=== PATIENT | female | born 1940 | race Caucasian/White ===

== ENCOUNTER 2022-11-19 09:55 | Outpatient (OUT) | payer MEDICARE, OTHER, SELFPAY ==
[2022-11-19 11:10] LABS: Alanine Aminotransferase 51 U/L (14-59); Alkaline Phosphatase 85 U/L (46-116); Aspartate Amino Transferase 32 U/L (15-37); Bilirubin Direct 0.2 mg/dL (0.0-0.2); Bilirubin Total 0.7 mg/dL (0.2-1.0); Free T4 1.12 ng/dL (0.76-1.46); Total Protein 7.3 g/dL (6.4-8.2)
[2022-11-19 11:11] LABS: Albumin Globulin Ratio 1.2; Free T3 2.64 pg/mL (2.18-3.98); Globulin 3.3 g/dL; Thyroid Stimulating Hormone 3.241 uIU/mL (0.358-3.740)
== END 2022-11-19 09:56 | disposition home or self-care (01) ==
LOC: LAB 09:55
PROVIDERS: PCP Internal Medicine; Visit Provider Internal Medicine
DX: E05.90 Thyrotoxicosis, unspecified without thyrotoxic crisis or storm (principal); E05.20 Thyrotoxicosis with toxic multinodular goiter without thyrotoxic crisis or storm
CPT/HCPCS: 36415; 80076; 84439; 84443; 84481

== ENCOUNTER 2023-02-14 09:50 | Outpatient (OUT) | payer MEDICARE, OTHER, SELFPAY ==
--- NOTE | 2023-02-14 10:18 | US_ITS ---
The [address] [address] Patient Name: SALINA MORENO MRN: [id number] date: 1940 Sex: F Assigned Patient Location: US Current Patient Location: Accession/Order Number: [id number] Exam Date: 02/14/2023 10:30 Report Date: 02/16/2023 11:04 At the request of: RUDY DIAZ Procedure: US venous doppler LE RT EXAMINATION: US venous doppler LE RT HISTORY: LOCALIZED EDEMA R80.0 COMPARISON: No relevant comparison available. FINDINGS: REGION: Right lower extremity THROMBI: None. COMPRESSIBILITY: Normal compressibility. FLOW: Normal waveform and antegrade flow between 5 and 20 cm/s. OTHER: Subcutaneous edema. US/US venous doppler LE RT IMPRESSION: 1. No deep vein thrombus within the right lower extremity. Electronically authenticated by: JOEL ANDINO Date: 02/16/2023 11:04
== END 2023-02-14 09:51 | disposition home or self-care (01) ==
LOC: US 09:51
PROVIDERS: PCP Internal Medicine; Visit Provider Internal Medicine
DX: S80.11XA Contusion of right lower leg, initial encounter (principal); Z79.01 Long term (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; R60.0 Localized edema
CPT/HCPCS: 93971

== ENCOUNTER 2023-05-27 11:00 | Outpatient (OUT) | payer MEDICARE, OTHER, SELFPAY ==
[2023-05-27 14:17] LABS: Free T3 2.67 pg/mL (2.18-3.98); Thyroid Stimulating Hormone 4.171 uIU/mL (0.358-3.740)
[2023-05-27 14:26] LABS: Free T4 1.16 ng/dL (0.76-1.46)
== END 2023-05-27 11:01 | disposition home or self-care (01) ==
LOC: LAB 11:03
PROVIDERS: PCP Internal Medicine; Visit Provider Internal Medicine
DX: E05.90 Thyrotoxicosis, unspecified without thyrotoxic crisis or storm (principal); E05.20 Thyrotoxicosis with toxic multinodular goiter without thyrotoxic crisis or storm
CPT/HCPCS: 36415; 84439; 84443; 84481

== ENCOUNTER 2023-07-08 10:54 | Outpatient (OUT) | payer MEDICARE, OTHER, SELFPAY ==
--- OUTSIDE RECORDS SUMMARY | 2023-07-08 11:03 | XMS_ITS | CCD ---
Author Organization [facility] Care Team Providers Care Automobile Dealer Name Role Phone KEANU ISLAS Admitting Unavailable KEANU ISLAS Attending Unavailable OLE YANG Referring Unavailable OLE YANG Primary Care Unavailable KEANU ISLAS Admitting Unavailable KEANU ISLAS Attending Unavailable OLE YANG Primary Care Unavailable OLE YANG Referring Unavailable KEANU ISLAS Admitting Unavailable KEANU ISLAS Attending Unavailable OLE YANG Primary Care Unavailable OLE YANG Referring Unavailable MICHELLE, AHMAD Consulting Unavailable EMILY, DR GRANT Primary Care Unavailable MICHELLE, RUSLAND Attending Unavailable MICHELLE, AHMAD Admitting Unavailable CHERY, SHELDON Consulting Unavailable OBI GOTTLIEBA Attending Unavailable OBI GOTTLIEBA Admitting Unavailable EMILY, DR GRANT Primary Care Unavailable STEPH, DR MAYRA Denson Admitting Unavailabl e REINECK, DR MAYRA Denson Consulting Unavailabl e EMILY, DR GRANT Primary Care Unavailable STEPH, DR MAYRA Denson Attending Unavailabl e SINA, DR JOEL Petersen Consulting Unavailable DESEAN, LARRY Consulting Unavailable DESEAN, LARRY Attending Unavailable DR OLE YANG Primary Care Unavailable DESEAN, LARRY Admitting Unavailable DESEAN, LARRY Admitting Unavailable DESEAN, LARRY Consulting Unavailable DESEAN, LARRY Attending Unavailable CHERY, SHELDON Primary Care Unavailable CHERY, SHELDON Consulting Unavailable OBI GOTTLIEBA Attending Unavailable OBI GOTTLIEBA Admitting Unavailable EMILY, DR GARNT Primary Care Unavailable MICHELLE, AHMAD Consulting Unavailable MICHELLE, AHMAD Attending Unavailable EMILY, DR GRANT Primary Care Unavailable MICHELLE, AHMAD Admitting Unavailable GABRIEL GREEN Admitting Unavailable EMILY, DR GRANT Primary Care Unavailable GABRIEL GREEN Attending Unavailable SINA, DR JOEL Petersen Consulting Unavailable GABRIEL GREEN Consulting Unavailable CHERY, SHELDON Consulting Unavailable CHERY, SHELDON Attending Unavailable CHERY, SHELDON Admitting Unavailable EMILY, DR GRANT Primary Care Unavailable HEMMIHAELA, DR BRAD Montesinos Admitting Unavailable EMILY, DR GRANT Primary Care Unavailable SINA, DR JOEL Petersen Consulting Unavailable HEMMER, DR BRAD Montesinos Attending Unavailable HEMMER, DR BRAD Montesinos Consulting Unavailable CHERY, SHELDON Attending Unavailable CEHRY, SHELDON Admitting Unavailable CHERY, SHELDON Consulting Unavailable EMILY, DR GRANT Primary Care Unavailable MICHELLE, AHMAD Attending Unavailable EMILY, DR GRANT Primary Care Unavailable MICHELLE, AHMAD Admitting Unavailable MICHELLE, AHMAD Consulting Unavailable CHERY, SHELDON Attending Unavailable CHERY, SHELDON Admitting Unavailable EMILY, DR GRANT Primary Care Unavailable SINA, DR JOEL Petersen Consulting Unavailable CHERY, SHELDON Consulting Unavailable KEANU ISLAS Admitting Unavailable KEANU ISLAS Attending Unavailable EMILY, DR GRANT Primary Care Unavailable SINA, DR JOEL Petersen Consulting Unavailable KEANU ISLAS Consulting Unavailable CHERY, SHELDON Consulting Unavailable CHERY, SHELDON Attending Unavailable CHERY, SHELDON Admitting Unavailable EMILY, DR GRANT Primary Care Unavailable KWAN LUI Attending Unavailable KEANU ISLAS Referring Unavailable KWAN LUI Attending Unavailable KEANU ISLAS Referring Unavailable KEANU ISLAS Referring Unavailable ELIEL NICHOLS Attending Unavailable OLE YANG Referring Unavailable OLE YANG Primary Care Unavailable Ole Yang MD Primary Care Provider OLE YANG Attending Unavailable OLE YANG Attending Unavailable BRAD ANDERSON Attending Unavailable OLE YANG Attending Unavailable Medications Current Medications Medication Drug Class(es) Dates Sig (Normalized) Sig (Original) apixaban 5 mg oral tablet (1 source) Factor Xa Inhibitor Start: 05-28-2022 ELIQUIS 5 mg tablet ascorbic acid 1000 mg oral tablet (1 source) Vitamin C take 1 tablet by mouth in the morning ascorbic acid, vitamin C, (vitamin C) 1000 mg tablet Take 1 tablet (1,000 mg total) by mouth in the morning. 0 Active aspirin 81 mg delayed release oral tablet (1 source) Platelet Aggregation Inhibitor, Nonsteroidal Anti-inflammatory Drug aspirin 81 mg daily. 0 Active atorvastatin 80 mg oral tablet (1 source) HMG-CoA Reductase Inhibitor Start: 08-03-2022 atorvastatin (LIPITOR) 80 mg tablet bumetanide 1 mg oral tablet (1 source) Loop Diuretic bumetanide (BUME X) 1 mg tablet as needed. 0 Active calcium carbonate 1500 mg / cholecalciferol 200 unt oral tablet (1 source) Vitamin D calcium carbonate-vitamin D3 600 mg(1,500mg) -200 units per tablet 1 (one) time each day at the same time. 0 Active cholecalciferol 0.01 mg oral capsule (1 source) Vitamin D cholecalciferol, vitamin D3, 10 mcg (400 unit) capsule 1 (one) time each day at the same time. 0 Active lisinopril 5 mg oral tablet (1 source) Angiotensin Converting Enzyme Inhibitor take 1 tablet by mouth in the morning lisinopriL (PRINIVIL,ZESTRIL) 5 mg tablet Take 1 tablet (5 mg total) by mouth in the morning. 0 Active LORazepam 0.5 mg oral tablet (1 source) Benzodiazepine Start: 08-21-2021 LORazepam (ATIVAN) 0.5 mg tablet lorazepam 0.5 mg tablet 0 08/21/2021 Active lovastatin 40 mg oral tablet (1 source) HMG-CoA Reductase Inhibitor lovastatin (MEVACOR) 40 mg tablet lovastatin 40 mg tablet 0 Active methIMAzole 10 mg oral tablet (1 source) Thyroid Hormone Synthesis Inhibitor take 0.5 tablet by mouth once daily methIMAzole (TAPAZOLE) 10 mg tablet Take 0.5 tablets every day by oral route. 0 Active 24 hr metoprolol succinate 50 mg extended release oral tablet (1 source) beta-Adrenergic Billy Start: 08-03-2022 metoprolol succinate XL (TOPROL XL) 50 mg 24 hr tablet multivitamin,tx-iron -Ca-FA-min 27-0.4 mg tablet (1 source) multivitamin,tx- iro n-Ca-FA-min 27-0.4 mg tablet 1 (one) time each day at the same time. 0 Active 10 actuat olodaterol 0.0025 mg/actuat / tiotropium 0.0025 mg/actuat inhalation spray (1 source) Anticholinergic, beta2-Adrenergic Agonist tiotropium-olodater oL 2.5-2.5 mcg/actuation mist Inhale 2 puffs every day by inhalation route. 0 Active PARoxetine hydrochloride 20 mg oral tablet (1 source) Serotonin Reuptake Inhibitor Start: 08-03-2022 PARoxetine (PAXIL) 20 mg tablet predniSONE 20 mg oral tablet (1 source) Start: 12-16-2022 take 1 tablet by mouth in the morning predniSONE (DELTASONE) 20 mg tablet TAKE 1 TABLET (20 MG) BY MOUTH IN THE MORNING AND 1 TABLET (20 MG) BEFORE BEDTIME. DO ALL THIS FOR 5 DAYS. 0 12/16/2022 Active spironolactone 25 mg oral tablet (1 source) Aldosterone Antagonist take 1 tablet by mouth in the morning spironolactone (ALDACTONE) 25 mg tablet Take 1 tablet (25 mg total) by mouth in the morning. 0 Active Problems Active Problems Problem Classification Problem Date Documented Da te Episodic/Chronic Blindness and vision defects (3 sources) Diplopia; Translations: [Diplopia] Onset: 03-20-2022 04-27-2023 Episodic Cardiac dysrhythmias (1 source) Unspecified atrial fibrillation; Translations: [UNSPECIFIED ATRIAL FIBRILLATION] Onset: 05-16-2022 Chronic Chronic obstructive pulmonary disease and bronchiectasis (1 source) Chronic obstructive pulmonary disease with (acute) exacerbation; Translations: [COPD WITH ACUTE EXACERBATION] Onset: 06-06-2021 Chronic Conduction disorders (3 sources) Presence of cardiac pacemaker; Translations: [Encounter for adjustment and management of automatic implantable cardiac defibrillator] Onset: 08-26-2021 Chronic Congestive heart failure; nonhypertensive (4 sources) Acute on chronic combined systolic (congestive) and diastolic (congestive) heart failure; Translations: [AC CHRN COMB SYSTOLIC AND DIASTOL CHF] Onset: 12-23-2021 Chronic Disorders of lipid metabolism (1 source) Hyperlipidemia, unspecified; Translations: [HYPERLIPIDEMIA UNSPECIFIED] Onset: 06-20-2021 Chronic Essential hypertension (5 sources) Essential (primary) hypertension; Translations: [ESSENTIAL PRIMARY HYPERTENSION] Onset: 06-20-2021 Chronic Heart valve disorders (1 source) Rheumatic disorders of both mitral and tricuspid valves; Translations: [RHEUMATIC D/O MITRAL TRICUSPID VALV] Onset: 06-14-2021 Chronic Menopausal disorders (4 sources) Other primary ovarian failure; Translations: [OTHER PRIMARY OVARIAN FAILURE] Onset: 03-19-2022 Chronic Other circulatory disease (1 source) Personal history of transient ischemic attack (TIA), and cerebral infarction without residual deficits; Translations: [PERS HX TIA AND CI NO RESID DEFICIT] Onset: 03-20-2022 Episodic Other connective tissue disease (1 source) Repeated falls; Translations: [REPEATED FALLS] Onset: 03-20-2022 Episodic Other eye disorders (1 source) Monocular esotropia, right eye; Translations: [Monocular esotropia, right eye] Onset: 04-27-2023 Episodic Other eye disorders (1 source) Esotropia of right eye; Translations: [Monocular esotropia, right eye] 04-27-2023 Episodic Other eye disorders (1 source) Abducens nerve palsy; Translations: [Sixth [abducent] nerve palsy, right eye] 04-28-2023 Episodic Thyroid disorders (5 sources) Thyrotoxicosis, unspecified without thyrotoxic crisis or storm; Translations: [THYROTOXICOS UNS NO THYROTOX CRISIS] Onset: 07-01-2021 Chronic Unclassified (1 source) CONTACT W/AND (SUSP) EXPOS COVID-19; Translations: [CONTACT W/AND (SUSP) EXPOS COVID-19] Onset: 08-23-2021 Past or Other Problems Problem Classification Problem Date Documented Date Episodic/Chronic Cardiac dysrhythmias (2 sources) Palpitations; Translations: [Palpitations] Onset: 03-20-2022 Episodic E Codes: Natural/environment (1 source) Overexertion from prolonged static or awkward postures, initial encounter; Translations: [OVEREXERT PROLNG STAT/AWK PST INIT] Onset: 06-18-2021 Episodic Other aftercare (1 source) [facility] (current) use of aspirin; Translations: [DIRECTOR OF ANALYTICS 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 ASPIRIN] Onset: 06-18-2021 Episodic Other aftercare (1 source) Other [place] (current) drug therapy; Translations: [OTH DIRECTOR OF ANALYTICS CURRENT DRUG THERAPY] Onset: 06-18-2021 Episodic Other connective tissue disease (4 sources) Pain in right leg; Translations: [PAIN IN RIGHT LEG] Onset: 09-04-2021 Episodic Other connective tissue disease (1 source) Pain in left leg; Translations: [PAIN IN LEFT LEG] Onset: 06-18-2021 Episodic Other lower respiratory disease (4 sources) Other forms of dyspnea; Translations: [OTHER FORMS OF DYSPNEA] Onset: 06-18-2021 Episodic Other lower respiratory disease (3 sources) Shortness of breath; Translations: [SHORTNESS OF BREATH] Onset: 06-04-2021 Episodic Residual codes; unclassified (4 sources) Other specified postprocedural states; Translations: [OTH SPECIFIED POSTPROCEDURAL STATES] Onset: 08-22-2021 Episodic Sprains and strains (1 source) Strain of unspecified muscles, fascia and tendons at thigh level, left thigh, initial encounter; Translations: [STRAIN UNS MUSC FASC LT THIGH INIT] Onset: 06-18-2021 Episodic Results Test Name Value Interpretation Reference Range Facility Office Visiton 12-30-2022 Follow-up visit [id number] Lluvia Moreno 1940 Date Provider Department Center 12/30/2022 KWAN RODRIGUEZ Family History Problem Relation Age of Onset Colon cancer Father Coronary artery disease Brother Hypertension Brother Kidney cancer Brother Family Status - Relation Status Age at Father Brother Level of Service:48634 OR OFFICE/OUTPATIENT ESTABLISHED MOD MDM 30-39 MIN Normal [facility] Office Visiton 07-15-2022 Follow-up visit [id number] Lluvia Moreno 1940 Provider Department Center 07/15/2022 KWAN RODRIGUEZ Family History Problem Relation Age of Onset Colon cancer Father Coronary artery disease Brother Hypertension Brother Kidney cancer Brother Family Status - Relation Status Age at Father Brother Level of Service:57961 OR OFFICE/OUTPATIENT ESTABLISHED MOD MDM 30-39 MIN Normal [facility] FREE T3on 05-14-2022 FREE T3 2.54 pg/mlL Normal 2.18-3.98 [facility] Comment on above: Performed By: #### F T3, TSH #### [facility] [address] [address] [address] Hugo Yang FREE T4on 05-14-2022 Free T4 [Mass/Vol] 1.09 ng/dL Normal 0.76-1.46 [facility] Comment on above: Performed By: #### F T4 #### [facility] [address] [place], [place] [address] Dr. Hugo Yang TSHon 05-14-2022 TSH 3.015 uIU/mL Normal 0.358-3.740 [facility] Comment on above: Performed By: #### F T3, TSH #### [facility] [address] [place], [place] [address] HEAD WO CONon 03-19-2022 CT HEAD WO CON EXAMINATION: CT HEAD WO CON HISTORY: Diplopia for 2 months COMPARISON: No relevant comparison available. TECHNIQUE: Axial CT images were obtained without IV contrast. Dose reduction techniques were achieved by using automated exposure control and/or adjustment of mA and/or kV according to patient size and/or use of iterative reconstruction technique. FINDINGS: BRAIN: No edema, hemorrhage, mass, acute infarction, or inappropriate atrophy. CSF SPACES: No hydrocephalus, subarachnoid hemorrhage, or mass. Appropriate for age. SKULL: No fracture, mass, or other significant visible lesion. SINUSES: No significant mucosal thickening or fluid on the limited views. ORBITS: No appreciable abnormality on the limited views. OTHER: Negative IMPRESSION: 1. No abnormal or suspicious findings to account for patient's symptoms. 2. Age consistent mild atrophy and chronic small vessel ischemic changes. Electronically authenticated by: JOEL ANDINO Date: 2022-03-19 10:33 Normal [facility] XR DEXA BONE DENSITYon 03-19 XR DEXA BONE DENSITY EXAMINATION: XR DEXA BONE DENSITY, 03/19/2022 9:57 AM EST HISTORY: Primary ovarian failure COMPARISON: DEXA bone densitometry 03/04/2019 TECHNIQUE: Dual-energy X-ray absorptiometry (DEXA) bone density study performed for the axial skeleton. FINDINGS: SPINE ANALYSIS: Average bone mineral density is 1.391 g/cm2. T-score (standard deviation relative to young adult mean): 1.8 . -4.1% change since prior study. HIP ANALYSIS: Lowest bone mineral density is within the right femoral neck, 0.619 g/cm2. T-score (standard deviation relative to young adult mean): -3.0 . -6.8% change since prior study. IMPRESSION: World [employer] Organization Classification: Osteoporosis - High Fracture Risk Electronically authenticated by: JOEL ANDINO Date: 2022-03-19 11:11 Normal [facility] ECHOCARDIO M/2D COMPLETEon 1 02-22-2021 ECHOCARDIO M/2D COMPLETE Patient: LLUVIA MORENO Exam Date: 12/23/2021 : 1940 Gender:F Ordering : SHELDON GOTTLIEB [facility] Admission #: [id number] Family : DR OLE YANG M.D. Order #: [id number] CLICK HERE TO VIEW EXAM ECHOCARDIOGRAM REPORT PROCEDURE: CARDIO PULMONARY ECHOCARDIO M/2D COMP INDICATIONS: Chronic combined heart failure, AICD, hypertension, COPD COMPARISON: None. DESCRIPTION: COMPLETE ECHOCARDIOGRAM Real-time transthoracic echocardiography with 2D, M-mode, spectral and color flow Doppler performed. QUALITY: Technical quality was good. LEFT VENTRICLE: Normal chamber size. Mild concentric left ventricular hypertrophy. The septum is abnormal in motion, likely due to pacing. LV EF: Mildly reduced left ventricular ejection fraction, (40-45%). DIASTOLIC: ATRIAL SEPTUM: Visually appears intact. LEFT ATRIUM: Severe dilatation. RIGHT ATRIUM: Severe dilatation. RIGHT VENTRICLE: Mild dilatation. Pacer wire present. Preserved systolic function. TRICUSPID VALVE: Normal mobility and thickness. No stenosis with trivial regurgitation and no evidence of pulmonary hypertension. RVSP 30 mmHg MITRAL VALVE: Normal mobility and thickness. No evidence of mitral valve stenosis. There is no mitral annular calcification. Mild mitral regurgitation. AORTIC VALVE: Normal trileaflet appearance. Mildly calcified aortic valve. Normal leaflet mobility. No evidence of aortic valve stenosis. No aortic regurgitation. AORTIC ROOT: Normal diameter and appearance. PULMONIC VALVE: Normal thickness and mobility. No stenosis. Trivial regurgitation. PERICARDIUM: No evidence of pericardial effusion. IVC: Collapses with inspirations. PLEURA: CONCLUSION: 1. Mild concentric left ventricular hypertrophy. Left ventricular systolic function is mildly reduced. LV ejection fraction is 40 to 45%. 2. Mildly dilated right ventricle with preserved systolic function. 3. Severe biatrial dilatation. 4. Mild mitral regurgitation. 5. Normal right-sided pressures. 6. No pericardial effusion. Adult Echocardiography Procedure Report Left Ventricle Left Atrium Mitral Valve Right Ventricle Aorta Aortic Valve Tricuspid Valve Pulmonic Valve Right Atrium Dictated by: Eyal Lucas M.D. on 12/24/2021 at 15:51 Approved by: Eyal Lucas M.D. on 12/24/2021 at 15:56 Normal [facility] FREE T3on 11-25-2021 FREE T3 1.97 pg/mlL Critically low 2.18-3.98 [facility] Comment on above: Performed By: #### F T3, TSH #### [facility] [address] [address] [address] Hugo Yang FREE T4on 11-25-2021 Free T4 [Mass/Vol] 1.00 ng/dL Normal 0.76-1.[address] [facility] Comment on above: Performed By: #### F T3, TSH #### [facility] [address] [address] [address] Hugo Yang LIVER PROFILEon 11-25-2021 Albumin [Mass/Vol] 3.9 g/dL Normal 3.4-5.0 [facility] Comment on above: Performed By: #### F T3, TSH #### [facility] [address] [address] [address] Hugo Yang Albumin/Globulin [Mass ratio] 1.1 {ratio} Normal [facility] Comment on above: Performed By: #### F T3, TSH #### [facility] [address] [address] [address] Hugo Yang ALP [Catalytic activity/Vol] 94 U/L Normal 46-116 [facility] Comment on above: Performed By: #### F T3, TSH #### [facility] [address] [address] [address] Hugo Yang ALT [Catalytic activity/Vol] 41 U/L Normal 14-59 [facility] Comment on above: Performed By: #### F T3, TSH #### [facility] [address] [address] [address] Hugo Yang AST [Catalytic activity/Vol] 25 U/L Normal 15-37 [facility] Comment on above: Performed By: #### F T3, TSH #### [facility] [address] [place] [address] Dr. Hugo Yagn BILI, CONJUGATED 0.2 mg/dL Normal 0.0-0.2 [facility] Comment on above: Performed By: #### F T3, TSH #### [facility] [address] [address] [address] Hugo Yang Bilirubin [Mass/Vol] 0.8 mg/dL Normal 0.2-1.0 [facility] Comment on above: Performed By: #### F T3, TSH #### [facility] [address] [address] [address] Hugo Yang Globulin (S) [Mass/Vol] 3.5 g/dL Normal [facility] Comment on above: Performed By: #### F T3, TSH #### [facility] [address] [place] [address] Dr. Hugo Yang Protein [Mass/Vol] 7.4 g/dL Normal 6.4-8.2 [facility] Comment on above: Performed By: #### F T3, TSH #### [facility] [address] [address] [address] Hugo Yang TSHon 11-25-2021 TSH 2.892 uIU/mL Normal 0.358-3.740 [facility] Comment on above: Performed By: #### F T3, TSH #### [facility] [address] [place] [address] Dr. Hugo Yang US PIPER DOP LEG RTon 09-05-19 22 US PIPER DOP LEG RT EXAMINATION: US PIPER DOP LEG RT HISTORY: Pain in right leg COMPARISON: No relevant comparison available. FINDINGS: REGION: Right lower extremity THROMBI: None. COMPRESSIBILITY: Normal compressibility. FLOW: Normal waveform and antegrade flow between 5 and 20 cm/s. OTHER: None. IMPRESSION: 1. No deep vein thrombus within the right lower extremity. Electronically authenticated by: JOEL ANDINO Date: 2021-09-04 12:18 Normal [facility] Cardiovascular Lab Reporton 08-21-2021 Cardiovascular Lab Report [facility] [id number] Physician: Keanu Islas MD Department of Service Date: 08/21/2021 Medicine Birthdate: 1940 Division of Room #: CC Cardiology Adult Cardiovascular Services [facility] [address] [place], [place] [address] Cardiovascular Laboratory Report [facility]UPGRADE PROCEDURE NOTE DATE OF PROCEDURE: 08/21/2021 PERFORMING PHYSICIAN: Dr. Keanu Islas CONSENT: Patient LOCATION: EP Lab PROCEDURE PERFORMED: 1. Implantation of Biventricular ICD ([employer]). 2. Explantation of previously implanted pacemaker generator ([employer]). 3. RV pacing lead and extraction. 4. Coronary sinus venogram. 5. ICD pocket revision. 6/ U/S access INDICATIONS: 1. Cardiomyopathy with no reversibe cause 2. Dilated cardiomyopathy 3. Chronic RV pacing (100%) 4. Chronic SHF NYHA Class III PROCEDURAL SEDATION: Versed and Fentanyl. Moderate sedation was administered by the sedation nurse under my supervision and noted in the CVL log. Intraprocedural face to face sedation time: 151min. Monitoring: Cardiac telemetry, Blood pressure, continuous pulse oxymetry. FLUROSCOPY: 19.6minutes/131 mGy. PREPARATION: 81-year-old lady with past medical history of atrial fibrillation, who was previously undergone single-chamber pacemaker with AV node ablation. Subsequent to that, she was noted to have a low EF, which was evaluated with coronary angiography and known to have vessel disease, but nothing amenable to PCI. Hence, it was deemed that her cardiomyopathy was probably from RV pacing. Given this, the decision was made to proceed with BiV ICD system upgrade. The patient was brought and the device was programed to VOO mode, as she was pacemaker dependent. Patient was brought to the EP lab in the post absorptive state. A procedural pause was performed identifying the patient, the precedure to be performed and the site of implant. The left chest was prepped and draped in the usual sterile fashion. Preoperative antibiotics IV was administered. PROCEDURAL DETAILS: Patient was placed in trendelenberg position and ultrasound was used to evaluate the patency of left axillary vein. Once it was determined that the vein was patient, I decided to proceed with opening of the pocket. Local infiltration of 1% Lidocaine was performed, and an incision was created in the left upper chest. Dissection was then performed using cautery down to the capsule of the previously implanted device. Two venous access was acquired and therafter sheath was placed. RV ICD lead was advanced into the RVOT and with manipulation, I got the lead to position in the lower mid septum. This was chosen and the sheath split and the lead secured in the pocket using three 1-0 Silk sutures. It is to be noted that with RV pacing, the QRS duration was noted to be close to 134 msec and was noted to be septally placed. Thereafter, the new ICD lead pacing configuration revealed a QRS of 127 msec. Next, we proceeded to place an LV lead. The Midway sheath was advanced, and with the wire, the CS os was accessed. However there was no support and so I used an amplatz wire for support. The inner cannula was then advanced into the CS body. The inner cannula was then removed and venogram was performed. Cordele catheter was advanced and venogram was performed. This revealed a good posterolateral vein, but other than that, an anterior vein was noted, but no significant other branches were seen. After this, a 0.014 wire was passed through the Cordele-Sarah catheter and traversed into the posterolateral vein. However, the wire was short enough and we could not get a good grasp at the end. So, thereafter, the Cordele-Sarah catheter was removed and 90-degree inner cannula was used to access the vein. A longer 0.014 wire tracked into the vein. Over this, a [employer] straight lead was advanced and placed into the mid to apical LV area. However, when thresholds were checked, there were no thresholds less than 5 noted on LV 1 and 2 poles. However, capture was noted at 3 V from 3 and 4. Given this, I decided to pull back the lead to see whether there were better thresholds in more basal area and it was noted again, had LV 3/4 captures were good but LV1/2. At this stage, given that we had at least some sort of decent threshold with 2 configurations, I decided to keep the lead. The inner cannulas were split and the Midway sheath was slit and the lead secured with three 1-0 silk sutures. Following this, the BiV pacing was performed, on which the QRS configuration was noted to be approximately 110 msec duration, which we felt was a good result. Subsequent to this, I decided to proceed with extraction of the previously placed lead. The RV lead was then dissected out and the sutures were removed and the sleeve was t (more content not included)... Normal [facility] Covid-19 PCR (CVDTBH)on SARS-CoV-2 (COVID-19) RNA SONA+probe Ql (Unsp spec) Not detected Normal NOT DETECTED [facility] Comment on above: Result Comment: When diagnostic testing is negative, the possibility of a false negative should be considered in the context of a patient's recent exposures and the presence of clinical signs and symptoms consistent with SARS-CoV-2. This test is not yet approved or cleared by the [place] FDA. When there are no FDA-approved or cleared tests available, and other criteria are met, FDA can make tests available under an emergency access mechanism called an Emergency Use Authorization (EUA). The EUA for this test is supported by the Geospatial Information Scientist of Health and Human Service's declaration that circumstances exist to justify the emergency use of in vitro diagnostics for the detection and/or diagnosis of the virus that causes COVID-19. This EUA will remain in effect for the duration of the COVID-19 declaration justifying emergency of IVDs, unless it is terminated or revoked by the FDA (after which the test may no longer be used). Performed By: #### B MP #### [facility] [address] [place] [address] Dr. Hugo Yang HEMOGRAM AND PLATELon 2021 Hematocrit (Bld) [Volume fraction] 43.7 % Normal 36.0-48.0 [facility] Comment on above: Performed By: #### C BC #### [facility] [address] [place] [address] Dr. Hugo Yang Hemoglobin (Bld) [Mass/Vol] 14.2 g/dL Normal 12.0-16.0 [facility] Comment on above: Performed By: #### C BC #### [facility] [address] [place] [address] Dr. Hugo Yang MCH (RBC) [Entitic mass] 31.0 pg Normal 26.7-34.0 [facility] Comment on above: Performed By: #### C BC #### [facility] [address] [place] [address] Dr. Hugo Yang MCHC (RBC) [Mass/Vol] 32.5 g/dL Normal 29.9-35.2 [facility] Comment on above: Performed By: #### C BC #### [facility] [address] [place] [address] Dr. Hugo Yang MCV (RBC) [Entitic vol] 95.4 fL Normal 81.0-99.0 [facility] Comment on above: Performed By: #### C BC #### [facility] [address] [place] [address] Dr. Hugo Yang PLT 161 103/ul Normal 150-450 [facility] Comment on above: Performed By: #### C BC #### [facility] [address] [place] [address] Dr. Hugo Yang RBC 4.58 106/ul Normal 4.20-5.40 [facility] Comment on above: Performed By: #### C BC #### [facility] [address] [place] [address] Dr. Hugo Yang WBC 6.9 103/ul Normal 4.0-11.0 [facility] Comment on above: Performed By: #### C BC #### [facility] [address] [place] [address] Dr. Hugo Yang PROF CHEM 8 (BAS METB)on Anion gap [Moles/Vol] 11.5 mmol/L Normal [facility] Comment on above: Performed By: #### B MP #### [facility] [address] [place] [address] Dr. Hugo Yang Calcium [Mass/Vol] 9.6 mg/dL Normal 8.5-10.1 [facility] Comment on above: Performed By: #### B MP #### [facility] [address] [place] [address] Dr. Hugo Yang Chloride [Moles/Vol] 104 mmol/L Normal 98-107 [facility] Comment on above: Performed By: #### B MP #### [facility] [address] [place] [address] Dr. Hugo Yang CO2 [Moles/Vol] 30.6 mmol/L Normal 21.0-32.0 [facility] Comment on above: Performed By: #### B MP #### [facility] [address] [address] [address] Hugo Yang Creatinine [Mass/Vol] 1.24 mg/dL Critically high 0.55-1.02 [facility] Comment on above: Performed By: #### B MP #### [facility] [address] [address] [address] Hugo Yang EGFR-AF BHUTANESE 51 mL/min/1.73m2 Critically low >=60 [facility] Comment on above: Performed By: #### B MP #### [facility] [address] [address] [address] Hugo Yang EGFR-NON AF BHUTANESE 42 mL/min/1.73m2 Critically low >=60 [facility] Comment on above: Performed By: #### B MP #### [facility] [address] [address] [address] Hugo Yang Glucose [Mass/Vol] 111 mg/dL Critically high 74-106 [facility] Comment on above: Performed By: #### B MP #### [facility] [address] [address] [address] Hugo Yang Potassium [Moles/Vol] 5.1 mmol/L Normal 3.5-5.1 [facility] Comment on above: Performed By: #### B MP #### [facility] [address] [address] [address] Hugo Yang Sodium [Moles/Vol] 141 mmol/L Normal 136-145 [facility] Comment on above: Performed By: #### B MP #### [facility] [address] [address] [address] Hugo Yang Urea nitrogen [Mass/Vol] 31.0 mg/dL Critically high 7.0-18.0 [facility] Comment on above: Performed By: #### B MP #### [facility] [address] [address] [address] Hugo Yang Urea nitrogen/Creatinin e [Mass ratio] 25.0 mg/mg Normal [facility] Comment on above: Performed By: #### B MP #### [facility] [address] [place] [address] Dr. Hugo Yang BNPon 07-30-2021 Natriuretic peptide B (Bld) [Mass/Vol] 1994.0 pg/mL Critically high <=1,800.0 [facility] Comment on above: Performed By: #### C BC #### [facility] [address] [place] [address] Dr. Hugo Yang PROF CHEM 8 (BAS METB)on Anion gap [Moles/Vol] 11.3 mmol/L Normal [facility] Comment on above: Performed By: #### C BC #### [facility] [address] [place] [address] Dr. Hugo Yang Calcium [Mass/Vol] 9.7 mg/dL Normal 8.5-10.1 [facility] Comment on above: Performed By: #### C BC #### [facility] [address] [place] [address] Dr. Hugo Yang Chloride [Moles/Vol] 104 mmol/L Normal 98-107 [facility] Comment on above: Performed By: #### C BC #### [facility] [address] [place] [address] Dr. Hugo Yang CO2 [Moles/Vol] 29.6 mmol/L Normal 21.0-32.0 [facility] Comment on above: Performed By: #### C BC #### [facility] [address] [place] [address] Dr. Hugo Yang Creatinine [Mass/Vol] 1.28 mg/dL Critically high 0.55-1.02 [facility] Comment on above: Performed By: #### C BC #### [facility] [address] [place] [address] Dr. Hugo Yang EGFR-AF BHUTANESE 49 mL/min/1.73m2 Critically low >=60 [facility] Comment on above: Performed By: #### C BC #### [facility] [address] [place] [address] Dr. Hugo Yang EGFR-NON AF BHUTANESE 40 mL/min/1.73m2 Critically low >=60 [facility] Comment on above: Performed By: #### C BC #### [facility] [address] [address] [address] Hugo Yang Glucose [Mass/Vol] 119 mg/dL Critically high 74-106 [facility] Comment on above: Performed By: #### C BC #### [facility] [address] [address] [address] Hugo Yang Potassium [Moles/Vol] 4.9 mmol/L Normal 3.5-5.1 [facility] Comment on above: Performed By: #### C BC #### [facility] [address] [address] [address] Hugo Yang Sodium [Moles/Vol] 140 mmol/L Normal 136-145 [facility] Comment on above: Performed By: #### C BC #### [facility] [address] [address] [address] Hugo Yang Urea nitrogen [Mass/Vol] 30.0 mg/dL Critically high 7.0-18.0 [facility] Comment on above: Performed By: #### C BC #### [facility] [address] [address] [address] Hugo Yang Urea nitrogen/Creatinin e [Mass ratio] 23.4 mg/mg Normal [facility] Comment on above: Performed By: #### C BC #### [facility] [address] [address] [address] Hugo Yang FREE T3on 06-28-2021 FREE T3 2.64 pg/mlL Normal 2.18-3.98 [facility] Comment on above: Performed By: #### F T3, TSH #### [facility] [address] [address] [address] Hugo Yang FREE T4on 06-28-2021 Free T4 [Mass/Vol] 1.19 ng/dL Normal 0.76-1.46 [facility] Comment on above: Performed By: #### B MP #### [facility] [address] [address] [address] Hugo Yang LIVER PROFILEon 06-28-2021 Albumin [Mass/Vol] 3.8 g/dL Normal 3.4-5.0 [facility] Comment on above: Performed By: #### F T3, TSH #### [facility] [address] [place] [address] Dr. Hugo Yang Albumin/Globulin [Mass ratio] 1.2 {ratio} Normal [facility] Comment on above: Performed By: #### F T3, TSH #### [facility] [address] [place] [address] Dr. Hugo Yang ALP [Catalytic activity/Vol] 88 U/L Normal 46-116 [facility] Comment on above: Performed By: #### F T3, TSH #### [facility] [address] [place] [address] Dr. Hugo Yang ALT [Catalytic activity/Vol] 54 U/L Normal 14-59 [facility] Comment on above: Performed By: #### F T3, TSH #### [facility] [address] [place] [address] Dr. Hugo Yang AST [Catalytic activity/Vol] 36 U/L Normal 15-37 [facility] Comment on above: Performed By: #### F T3, TSH #### [facility] [address] [place] [address] Dr. Hugo Yang BILI, CONJUGATED 0.3 mg/dL Critically high 0.0-0.2 [facility] Comment on above: Performed By: #### F T3, TSH #### [facility] [address] [place] [address] Dr. Hugo Yang Bilirubin [Mass/Vol] 0.9 mg/dL Normal 0.2-1.0 [facility] Comment on above: Performed By: #### F T3, TSH #### [facility] [address] [place] [address] Dr. Hugo Yang Globulin (S) [Mass/Vol] 3.3 g/dL Normal [facility] Comment on above: Performed By: #### F T3, TSH #### [facility] [address] [address] [address] Hugo Yang Protein [Mass/Vol] 7.1 g/dL Normal 6.4-8.[address] [facility] Comment on above: Performed By: #### F T3, TSH #### [facility] [address] [address] [address] Hugo Yang PROF CHEM 8 (BAS METB)on Anion gap [Moles/Vol] 13.6 mmol/L Normal [facility] Comment on above: Performed By: #### B MP #### [facility] [address] [address] [address] Hugo Yang Calcium [Mass/Vol] 9.5 mg/dL Normal 8.5-10.[address] [facility] Comment on above: Performed By: #### B MP #### [facility] [address] [address] [address] Hugo Yang Chloride [Moles/Vol] 105 mmol/L Normal 98-107 [facility] Comment on above: Performed By: #### B MP #### [facility] [address] [address] [address] Hugo Yang CO2 [Moles/Vol] 28.5 mmol/L Normal 21.0-32.0 [facility] Comment on above: Performed By: #### B MP #### [facility] [address] [address] [address] Hugo Yang Creatinine [Mass/Vol] 1.05 mg/dL Critically high 0.55-1.02 [facility] Comment on above: Performed By: #### B MP #### [facility] [address] [address] [address] Hugo Yang EGFR-AF BHUTANESE >60 Normal >=60 [facility] Comment on above: Performed By: #### B MP #### [facility] [address] [address] [address] Hugo Yang EGFR-NON AF BHUTANESE 51 mL/min/1.73m2 Critically low >=60 [facility] Comment on above: Performed By: #### B MP #### [facility] [address] [address] [address] Hugo Yang Glucose [Mass/Vol] 113 mg/dL Critically high 74-106 [facility] Comment on above: Performed By: #### B MP #### [facility] [address] [address] [address] Hugo Yang Potassium [Moles/Vol] 5.1 mmol/L Normal 3.5-5.1 [facility] Comment on above: Performed By: #### B MP #### [facility] [address] [address] [address] Hugo Yang Sodium [Moles/Vol] 142 mmol/L Normal 136-145 [facility] Comment on above: Performed By: #### B MP #### [facility] [address] [place] [address] Dr. Hugo Yang Urea nitrogen [Mass/Vol] 29.0 mg/dL Critically high 7.0-18.0 [facility] Comment on above: Performed By: #### B MP #### [facility] [address] [address] [address] Hugo Yang Urea nitrogen/Creatinin e [Mass ratio] 27.6 mg/mg Normal [facility] Comment on above: Performed By: #### B MP #### [facility] [address] [place] [address] Dr. Hugo Yang TSHon 06-28-2021 TSH 3.067 uIU/mL Normal 0.358-3.740 [facility] Comment on above: Performed By: #### F T3, TSH #### [facility] [address] [place] [address] Dr. Hugo Yang TSH RANGE SEE BELOW Normal [facility] Comment on above: Result Comment: <0.3 4 UIU/ml HYPERTHYROID 0.34-5.60 UIU/ml EUTHYROID >5.60 UIU/ml HYPOTHYROID Performed By: #### F T3, TSH #### [facility] [address] [place] [address] Dr. Hugo Yang Cardiovascular Lab Reporton 06-21-2021 Cardiovascular Lab Report [facility] Patient Name: [facility] MR #: [id number] Physician: Elizabeth Tejeda, Department of M.D. Medicine Service Date: 06/20/2021 Division of Birthdate: 1940 Cardiology Room #: [facility] Cardiovascular Services [facility] [address] [place], [place] [address] Cardiovascular Laboratory Report FINAL IMPRESSIONS: 1. 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 2. Otherwise nonobstructive coronary arteries angiographically. 3. Moderately reduced global left ventricular systolic function by noninvasive imaging. 4. Normal right-sided heart pressures and wedge pressure. 5. Kban-wi-gjcqvklp systemic hypertension. 6. Mildly reduced cardiac output/cardiac index. 7. 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 RECOMMENDATIONS: 1. Consider nonischemic etiologies for the patient's cardiomyopathy and heart failure with reduced ejection fraction namely rate/rhythm related causes. 2. Aggressive cardiovascular risk factor modification. 3. Optimal medical therapy for coronary artery disease should include aspirin, high-intensity statin therapy, a beta-billy, and an angiotensin converting enzyme inhibitor/receptor billy. 4. For heart failure with reduced ejection fraction (HFrEF), would recommend switching angiotensin-converting enzyme inhibitor to Entresto and adding spironolactone. In addition, an SGLT2 inhibitor such as Jardiance or Farxiga is recommended. 5. Consider further investigations for venous stenosis as clinically indicated. 6. Follow up with Dr. Islas and Larry Anton CNP in the next 2-4 weeks. 7. Follow up with Dr. Yang as scheduled. PROCEDURES: Ultrasound-guided access to the right common femoral vein, ultrasound-guided access of the right common femoral artery, limited femoral arterial angiography, limited femoral venous venography, right heart catheterization, bilateral selective coronary angiography, placement of a 6-Monegasque MynxGrip closure device. METHODS: After risks, benefits, and alternatives were explained, written informed consent was obtained. The patient was prepped and draped in the usual sterile fashion over both groins. Using 1% lidocaine solution, local infiltration anesthesia was achieved. Using a modified Seldinger technique and a micropuncture kit and on the ultrasound guidance access of the right common femoral vein and artery was obtained. A 6-Monegasque 11 cm sheath was placed in each. Femoral arterial angiography was performed via the inner cannula of the micropuncture kit prior to upsizing. Difficulty advancing the Orozco catheter was encountered; therefore, venography was performed via the venous sheath. This revealed an area of stenosis in the right common iliac vein. This was crossed using the J wire. Right heart catheterization was completed. The Orozco catheter was removed. Bilateral selective coronary angiography was performed using JL4 and JR4 catheters. After reviewing the images, it was elected to conclude the procedure. All catheters were removed. A 6-Monegasque MynxGrip closure device was deployed per protocol achieving optimal hemostasis over the arterial access site. The venous sheath was removed with application of manual pressure to achieve optimal hemostasis. Overall, the patient tolerated the procedure well. There were no overt complications. She was to be transferred to the holding area in stable condition. FINDINGS: Hemodynamics: 1. AO 144/89 (105). 2. RA 2. 3. RV 34.1, 0. 4. PA 34/10 (20). 5. PCWP 8. 6. Cardiac output 4.25/cardiac index 2.16. 7. AO sat 97%/PA sat 63%. LEFT VENTRICULOGRAPHY: This was not performed. Ejection fraction is 30% by noninvasive imaging. CORONARY ARTERIES: Left main coronary artery. This arises from the left coronary cusp. It bifurcates into the left anterior descending and left circumflex coronary arteries. It is free of significant stenosis. Left anterior descending coronary artery. This shows a long stented segment in the midportion of the vessel with 30% in-stent restenosis. There is caliber reduction in the mid to distal portion of the vessel. Left circumflex coronary artery. This is angiographically nonobstructive. Right coronary artery. This is a dominant vessel giving rise to the posterior descending and posterolateral branches. It is angiographically nonobstructive. Limited femoral angiography. This shows mild plaque and anatomy suitable for closure device. Venography; this showed stenosis in the right common iliac vein estimated at 30-40%. No evidence of thrombosis, masses, or dye extravasation was seen. INDICATION: New onset heart failure with reduced ejection fraction, shortness of breath. Electronically Signed by: Elizabeth Tejeda M.D. 06/27/2021 09:19 A E (more content not included)... Normal [facility] BNPon 06-18-2021 Natriuretic peptide B (Bld) [Mass/Vol] 3442.0 pg/mL Critically high <=1,800.0 [facility] Comment on above: Result Comment: TEST REPEATED CRITICAL VALUE VERIFIED Performed By: #### L IPID, BNP, CMP #### [facility] [address] [place] [address] Dr. Hugo Yang CBC AUTO DIFFon 06-18-2021 BASO # 0.1 103/ul Normal 0.0-0.1 [facility] Comment on above: Performed By: #### C BC #### [facility] [address] [place] [address] Dr. Hugo Yang Basophils/100 WBC (Bld) 0.5 % Normal 0.2-2.0 [facility] Comment on above: Performed By: #### C BC #### [facility] [address] [place] [address] Dr. Hugo Yang EO # 0.3 103/ul Normal 0.0-0.7 [facility] Comment on above: Performed By: #### C BC #### [facility] [address] [place] [address] Dr. Hugo Yang Eosinophils/100 WBC (Bld) 2.3 % Normal 0.9-7.0 [facility] Comment on above: Performed By: #### C BC #### [facility] [address] [place] [address] Dr. Hugo Yang Erythrocyte distribution width (RBC) [Ratio] 14.5 % Normal 11.0-15.0 [facility] Comment on above: Performed By: #### C BC #### [facility] [address] [place] [address] Dr. Hugo Yang Hematocrit (Bld) [Volume fraction] 42.3 % Normal 36.0-48.0 [facility] Comment on above: Performed By: #### C BC #### [facility] [address] [address] [address] Hugo Yang Hemoglobin (Bld) [Mass/Vol] 13.5 g/dL Normal 12.0-16.0 [facility] Comment on above: Performed By: #### C BC #### [facility] [address] [place] [address] Dr. Hugo Yang IG # 0.05 10e3/ul Critically high 0.00-0.03 [facility] Comment on above: Performed By: #### C BC #### [facility] [address] [place] [address] Dr. Hugo Yang IG % 0.4 % Normal 0.0-0.5 [facility] Comment on above: Performed By: #### C BC #### [facility] [address] [place] [address] Dr. Hugo Yang LYMPH # 1.5 103/ul Normal 1.2-3.8 [facility] Comment on above: Performed By: #### C BC #### [facility] [address] [place] [address] Dr. Hugo Yang Lymphocytes/100 WBC (Bld) 12.9 % Critically low 20.5-60.0 [facility] Comment on above: Performed By: #### C BC #### [facility] [address] [place] [address] Dr. Hugo Yang MANUAL DIFF REQ NO Normal [facility] Comment on above: Performed By: #### C BC #### [facility] [address] [place] [address] Dr. Hugo Yang MCH (RBC) [Entitic mass] 30.4 pg Normal 26.7-34.0 [facility] Comment on above: Performed By: #### C BC #### [facility] [address] [place] [address] Dr. Hugo Yang MCHC (RBC) [Mass/Vol] 31.9 g/dL Normal 29.9-35.2 [facility] Comment on above: Performed By: #### C BC #### [facility] [address] [address] [address] Hugo Yang MCV (RBC) [Entitic vol] 95.3 fL Normal 81.0-99.0 [facility] Comment on above: Performed By: #### C BC #### [facility] [address] [address] [address] Hugo Yang MONO # 0.7 103/ul Normal 0.3-0.8 [facility] Comment on above: Performed By: #### C BC #### [facility] [address] [address] [address] Hugo Yang Monocytes/100 WBC (Bld) 6.2 % Normal 1.7-12.0 [facility] Comment on above: Performed By: #### C BC #### [facility] [address] [place] [address] Dr. Hugo Yang NEUT # 8.8 103/ul Critically high 1.4-6.5 [facility] Comment on above: Performed By: #### C BC #### [facility] [address] [place] [address] Dr. Hugo Yang Neutrophils/100 WBC (Bld) 77.7 % Critically high 43.0-75.0 [facility] Comment on above: Performed By: #### C BC #### [facility] [address] [place] [address] Dr. Hugo Yang Platelet mean volume (Bld) [Entitic vol] 10.4 fL Normal 9.5-13.5 [facility] Comment on above: Performed By: #### C BC #### [facility] [address] [place] [address] Dr. Hugo Yang PLT 199 103/ul Normal 150-450 [facility] Comment on above: Performed By: #### C BC #### [facility] [address] [place] [address] Dr. Hugo Yang RBC 4.44 106/ul Normal 4.20-5.40 [facility] Comment on above: Performed By: #### C BC #### [facility] [address] [place] [address] Dr. Hugo Yang WBC 11.3 103/ul Critically high 4.0-11.0 [facility] Comment on above: Performed By: #### C BC #### [facility] [address] [place] [address] Dr. Hugo Yang Cov[facility]-19 [facility]on SARS-CoV-2 (COVID-19) RNA SONA+probe Ql (Unsp spec) Not detected Normal NOT DETECTED [facility] Comment on above: Result Comment: This test is not yet approved or cleared by the [place] FDA. When there are no FDA-approved or cleared tests available, and other criteria are met, FDA can make tests available under an emergency access mechanism called an Emergency Use Authorization (EUA). The EUA for this test is supported by the [place] of Health and Human Service's (HHS's) declaration that circumstances exist to justify the emergency use of in vitro diagnostics for the detection and/or diagnosis of the virus that causes COVID-19. This EUA will remain in effect (meaning this test can be used) for the duration of the COVID-19 declaration justifying emergency of IVDs, unless it is terminated or revoked by FDA (after which the test may no longer be used). When diagnostic testing is negative, the possibility of a false negative should be considered in the context of a patient's recent exposures and the presence of clinical signs and symptoms consistent with SARS-CoV-2. Performed By: #### F T3, TSH #### [facility] [address] [place] [address] Dr. Hugo Yang LIPID PROFILEon 06-18-2021 CHOL-HDL RATIO NORM SEE BELOW Normal [facility] Comment on above: Result Comment: 3.3 - 4.4 LOW RISK 4.4 - 7.1 AVERAGE RISK 7.1 - 11.0 MODERATE RISK >11.0 HIGH RISK Performed By: #### L IPID, BNP, CMP #### [facility] [address] [place] [address] Dr. Hugo Yang Cholesterol [Mass/Vol] 127 mg/dL Normal <=200 [facility] Comment on above: Performed By: #### L IPID, BNP, CMP #### [facility] [address] [place] [address] [address] Hugo Yang Cholesterol in HDL [Mass/Vol] 60 mg/dL Normal 40-60 [facility] Comment on above: Performed By: #### L IPID, BNP, CMP #### [facility] [address] [place] [address] [address] Hugo Yang Cholesterol in LDL [Mass/Vol] 47.4 mg/dL Normal [facility] Comment on above: Performed By: #### L IPID, BNP, CMP #### [facility] [address] [place] [address] [address] Hugo Yang Cholesterol.total/ Cholesterol in HDL [Mass ratio] 2.1 {ratio} Normal [facility] Comment on above: Performed By: #### L IPID, BNP, CMP #### [facility] [address] [place] [address] Dr. Hugo Yang HDL NORMAL > or = 60 mg/dl - LO W CARDIOVASCULAR RISK <40 mg/dl - HIGH CARDIOVASCULAR RISK Normal [facility] Comment on above: Performed By: #### L IPID, BNP, CMP #### [facility] [address] [address] [address] Hugo Yang LDL CALC NORMAL SEE BELOW Normal [facility] Comment on above: Result Comment: <100 mg/dl OPTIMAL 100 - 129 mg/dl NEAR OR ABOVE OPTIMAL 130 - 159 mg/dl BORDERLINE HIGH 160 - 189 mg/dl HIGH >190 mg/dl VERY HIGH Performed By: #### L IPID, BNP, CMP #### [facility] [address] [place] [address] [address] Hugo Yang Triglyceride [Mass/Vol] 98 mg/dL Normal <=150 [facility] Comment on above: Performed By: #### L IPID, BNP, CMP #### [facility] [address] [place] [address] [address] Hugo Yang VLDL CALC 19.6 mg/dL Normal [facility] Comment on above: Performed By: #### L IPID, BNP, CMP #### [facility] [address] [place] [address] [address] Hugo Yang PROF 14(COMP METB)on 022 Albumin [Mass/Vol] 4.0 g/dL Normal 3.4-5.0 [facility] Comment on above: Performed By: #### L IPID, BNP, CMP #### [facility] [address] [place] [address] [address] Hugo Yang Albumin/Globulin [Mass ratio] 1.3 {ratio} Normal [facility] Comment on above: Performed By: #### L IPID, BNP, CMP #### [facility] [address] [place] [address] [address] Hugo Yang ALP [Catalytic activity/Vol] 82 U/L Normal 46-116 [facility] Comment on above: Performed By: #### L IPID, BNP, CMP #### [facility] [address] [place] [address] Dr. Hugo Yang ALT [Catalytic activity/Vol] 52 U/L Normal 14-59 [facility] Comment on above: Performed By: #### L IPID, BNP, CMP #### [facility] [address] [place] [address] [address] Hugo Yang Anion gap [Moles/Vol] 12.9 mmol/L Normal [facility] Comment on above: Performed By: #### L IPID, BNP, CMP #### [facility] [address] [address] [address] Hugo Yang AST [Catalytic activity/Vol] 40 U/L Critically high 15-37 [facility] Comment on above: Performed By: #### L IPID, BNP, CMP #### [facility] [address] [address] [address] Hugo Yang Bilirubin [Mass/Vol] 1.7 mg/dL Critically high 0.2-1.0 [facility] Comment on above: Performed By: #### L IPID, BNP, CMP #### [facility] [address] [address] [address] Hugo Yang Calcium [Mass/Vol] 9.2 mg/dL Normal 8.5-10.[address] [facility] Comment on above: Performed By: #### L IPID, BNP, CMP #### [facility] [address] [place] [address] Dr. Hugo Yang Chloride [Moles/Vol] 103 mmol/L Normal 98-107 [facility] Comment on above: Performed By: #### L IPID, BNP, CMP #### [facility] [address] [place] [address] Dr. Hugo Yang CO2 [Moles/Vol] 28.9 mmol/L Normal 21.0-32.0 [facility] Comment on above: Performed By: #### L IPID, BNP, CMP #### [facility] [address] [place] [address] Dr. Hugo Yang Creatinine [Mass/Vol] 1.12 mg/dL Critically high 0.55-1.02 [facility] Comment on above: Performed By: #### L IPID, BNP, CMP #### [facility] [address] [place] [address] Dr. Hugo Yang EGFR-AF BHUTANESE 57 mL/min/1.73m2 Critically low >=60 [facility] Comment on above: Performed By: #### L IPID, BNP, CMP #### [facility] [address] [place] [address] Dr. Hugo Yang EGFR-NON AF BHUTANESE 47 mL/min/1.73m2 Critically low >=60 [facility] Comment on above: Performed By: #### L IPID, BNP, CMP #### [facility] [address] [place] [address] Dr. Hugo Yang Globulin (S) [Mass/Vol] 3.1 g/dL Normal [facility] Comment on above: Performed By: #### L IPID, BNP, CMP #### [facility] [address] [place] [address] Dr. Hugo Yang Glucose [Mass/Vol] 128 mg/dL Critically high 74-106 [facility] Comment on above: Performed By: #### L IPID, BNP, CMP #### [facility] [address] [place] [address] Dr. Hugo Yang Potassium [Moles/Vol] 4.8 mmol/L Normal 3.5-5.1 [facility] Comment on above: Performed By: #### L IPID, BNP, CMP #### [facility] [address] [address] [address] Hugo Yang Protein [Mass/Vol] 7.1 g/dL Normal 6.1-8.[address] [facility] Comment on above: Performed By: #### L IPID, BNP, CMP #### [facility] [address] [address] [address] Hugo Yang Sodium [Moles/Vol] 140 mmol/L Normal 136-[address] [facility] Comment on above: Performed By: #### L IPID, BNP, CMP #### [facility] [address] [place] [address] Dr. Hugo Yang Urea nitrogen [Mass/Vol] 23.0 mg/dL Critically high 7.0-18.0 [facility] Comment on above: Performed By: #### L IPID, BNP, CMP #### [facility] [address] [address] [address] Hugo Yang Urea nitrogen/Creatinin e [Mass ratio] 20.5 mg/mg Normal [facility] Comment on above: Performed By: #### L IPID, BNP, CMP #### [facility] [address] [place] [address] Dr. Hugo Yang ECHOCARDIO M/2D COMPLETEon 0 06-12-2021 ECHOCARDIO M/2D COMPLETE Patient: LLUVIA MORENO Exam Date: 06/12/2021 : 1940 Gender:F Ordering : SHELDON GOTTLIEB Admission #: [id number] Family : DR OLE YANG M.D. Order #: [id number] CLICK HERE TO VIEW EXAM ECHOCARDIOGRAM REPORT PROCEDURE: CARDIO PULMONARY ECHOCARDIO M/2D COMP INDICATIONS: Dyspnea on exertion, pacemaker, hypertension, CHF, COPD COMPARISON: None. DESCRIPTION: COMPLETE ECHOCARDIOGRAM Real-time transthoracic echocardiography with 2D, M-mode, spectral and color flow Doppler performed. QUALITY: Technical quality was good. LEFT VENTRICLE: Normal chamber size. Proximal septal hypertrophy (sigmoid septum). Global hypokinesis. Mildly to severely reduced systolic function. LV EF: Moderately to severely reduced left ventricular ejection fraction, (30%). DIASTOLIC: Grade III diastolic dysfunction. ATRIAL SEPTUM: Visually appears intact. LEFT ATRIUM: Severe dilatation. RIGHT ATRIUM: Severe dilatation. RIGHT VENTRICLE: Normal chamber size. Systolic function appears normal. Pacer wire present. TRICUSPID VALVE: Normal mobility and thickness. No stenosis with mild regurgitation. No evidence of pulmonary hypertension. RVSP 27 mmHg MITRAL VALVE: Normal mobility and thickness. No evidence of mitral valve stenosis. There is no mitral annular calcification. Moderate mitral regurgitation. AORTIC VALVE: Normal trileaflet appearance. Mildly calcified aortic valve. Normal leaflet mobility. No evidence of aortic valve stenosis. Trivial aortic regurgitation. AORTIC ROOT: Normal diameter and appearance. Ascending aorta is normal in size. PULMONIC VALVE: Normal thickness and mobility. No stenosis. Trivial regurgitation. PERICARDIUM: No evidence of pericardial effusion. IVC: IVC is normal in size, with no collapse. PLEURA: CONCLUSION: 1. Left ventricular systolic function is moderately to severely reduced. LVEF is 30%. There is diffuse global hypokinesis with abnormal motion of the septum likely related to bundle branch block or pacing. 2. Normal right ventricular systolic function and size. 3. Grade 3 diastolic dysfunction. 4. Moderate mitral regurgitation. 5. Mild tricuspid regurgitation. 6. Severely dilated atria. 7. Normal right-sided pressures. Adult Echocardiography Procedure Report Left Ventricle LVEDD (3.7 - 5.6 cm): 4.89 cm LVESD (2.2 - 4.0 cm): 4.52 cm LVIVS thickness (0.6 - 1.2 cm): 1.43 cm LVPW thickness (0.5 - 1.0 cm): 1.07 cm e': 9.87 cm/s E - e': 9.80 LVOT Area (cm2): 3.14 cm2 LVOT Diameter 2.00 cm Left Ventricular Ejection Fraction: 30 % Left Atrium LA Volume Index (2D A2C): 58.70 ml/m2 Left Atrium Systolic Dimension: 4.40 cm Left Atrium Systolic Area(A2C): 31.00 cm2 Left Atrium Systolic Area(A4C): 31.00 cm2 Left Atrium Systolic Volume(A2C): 292614 mm3 Left Atrium Systolic Volume(A4C): 124723 mm3 Mitral Valve MV E to A Ratio: 3.50 Mitral Valve A-Wave Peak Velocity: 27.60 cm/s Mitral Valve E-Wave Peak Velocity: 97.20 cm/s Deceleration Time: 114 ms Right Ventricle Aorta AO Root Diam: 2.90 cm Aortic Valve AoV Area (Peak Vicente): 1.52 cm2 AoV Area (VTI): 1.70 cm2 Peak Velocity(Antegrade Flow): 132.00 cm/s Peak Gradient(Antegrade Flow): 7 mm[Hg] Mean Velocity(Antegrade Flow): 91.80 cm/s Mean Gradient(Antegrade Flow): 4 mm[Hg] Velocity Time Integral: 21.40 cm Tricuspid Valve Pulmonic Valve Peak Velocity: 73.30 cm/s Peak Gradient: 2 mm[Hg] Right Atrium Dictated by: Eyal Lucas M.D. on 06/12/2021 at 16:21 Approved by: Eyal Lucas M.D. on 06/12/2021 at 16:27 Normal [facility] CBC AUTO DIFFon 06-04-2021 BASO # 0.0 103/ul Normal 0.0-0.1 [facility] Comment on above: Performed By: #### C BC #### [facility] [address] [address] [address] Hugo Yang Basophils/100 WBC (Bld) 0.6 % Normal 0.2-2.0 [facility] Comment on above: Performed By: #### C BC #### [facility] [address] [address] [address] Hugo Yang EO # 0.2 103/ul Normal 0.0-0.7 [facility] Comment on above: Performed By: #### C BC #### [facility] [address] [address] [address] Hugo Yang Eosinophils/100 WBC (Bld) 3.0 % Normal 0.9-7.0 [facility] Comment on above: Performed By: #### C BC #### [facility] [address] [address] [address] Hugo Yang Erythrocyte distribution width (RBC) [Ratio] 13.7 % Normal 11.0-15.0 [facility] Comment on above: Performed By: #### C BC #### [facility] [address] [place] [address] Dr. Hugo Yang Hematocrit (Bld) [Volume fraction] 42.1 % Normal 36.0-48.0 [facility] Comment on above: Performed By: #### C BC #### [facility] [address] [place] [address] Dr. Hugo Yang Hemoglobin (Bld) [Mass/Vol] 13.3 g/dL Normal 12.0-16.0 [facility] Comment on above: Performed By: #### C BC #### [facility] [address] [place] [address] Dr. Hugo Yang IG # 0.02 10e3/ul Normal 0.00-0.03 [facility] Comment on above: Performed By: #### C BC #### [facility] [address] [place] [address] Dr. Hugo Yang IG % 0.3 % Normal 0.0-0.5 [facility] Comment on above: Performed By: #### C BC #### [facility] [address] [place] [address] Dr. Hugo Yang LYMPH # 1.9 103/ul Normal 1.2-3.8 [facility] Comment on above: Performed By: #### C BC #### [facility] [address] [place] [address] Dr. Hugo Yang Lymphocytes/100 WBC (Bld) 29.2 % Normal 20.5-60.0 [facility] Comment on above: Performed By: #### C BC #### [facility] [address] [place] [address] Dr. Hugo Yang MANUAL DIFF REQ NO Normal [facility] Comment on above: Performed By: #### C BC #### [facility] [address] [place] [address] Dr. Hugo Yang MCH (RBC) [Entitic mass] 30.4 pg Normal 26.7-34.0 [facility] Comment on above: Performed By: #### C BC #### [facility] [address] [address] [address] Hugo Yang MCHC (RBC) [Mass/Vol] 31.6 g/dL Normal 29.9-35.2 [facility] Comment on above: Performed By: #### C BC #### [facility] [address] [address] [address] Hugo Yang MCV (RBC) [Entitic vol] 96.3 fL Normal 81.0-99.0 [facility] Comment on above: Performed By: #### C BC #### [facility] [address] [address] [address] Hugo Yang MONO # 0.6 103/ul Normal 0.3-0.8 [facility] Comment on above: Performed By: #### C BC #### [facility] [address] [place] [address] Dr. Hugo Yang Monocytes/100 WBC (Bld) 8.5 % Normal 1.7-12.0 [facility] Comment on above: Performed By: #### C BC #### [facility] [address] [place] [address] Dr. Hugo Yang NEUT # 3.8 103/ul Normal 1.4-6.5 [facility] Comment on above: Performed By: #### C BC #### [facility] [address] [place] [address] Dr. Hugo Yang Neutrophils/100 WBC (Bld) 58.4 % Normal 43.0-75.0 [facility] Comment on above: Performed By: #### C BC #### [facility] [address] [place] [address] Dr. Hugo Yang Platelet mean volume (Bld) [Entitic vol] 10.9 fL Normal 9.5-13.5 [facility] Comment on above: Performed By: #### C BC #### [facility] [address] [place] [address] Dr. Hugo Yang PLT 163 103/ul Normal 150-450 [facility] Comment on above: Performed By: #### C BC #### [facility] [address] [address] [address] Hugo Yang RBC 4.37 106/ul Normal 4.20-5.40 [facility] Comment on above: Performed By: #### C BC #### [facility] [address] [place] [address] Dr. Hugo Yang WBC 6.6 103/ul Normal 4.0-11.0 [facility] Comment on above: Performed By: #### C BC #### [facility] [address] [place] [address] Dr. Hugo Yang PROF CHEM 8 (BAS METB)on Anion gap [Moles/Vol] 13.9 mmol/L Normal [facility] Comment on above: Performed By: #### F T3, TSH #### [facility] [address] [place] [address] Dr. Hugo Yang Calcium [Mass/Vol] 9.5 mg/dL Normal 8.5-10.1 [facility] Comment on above: Performed By: #### F T3, TSH #### [facility] [address] [place] [address] Dr. Hugo Yang Chloride [Moles/Vol] 105 mmol/L Normal 98-107 [facility] Comment on above: Performed By: #### F T3, TSH #### [facility] [address] [place] [address] Dr. Hugo Yang CO2 [Moles/Vol] 27.7 mmol/L Normal 22.0-30.0 [facility] Comment on above: Performed By: #### F T3, TSH #### [facility] [address] [place] [address] Dr. Hugo Yang Creatinine [Mass/Vol] 1.19 mg/dL Critically high 0.52-1.04 [facility] Comment on above: Performed By: #### F T3, TSH #### [facility] [address] [place] [address] Dr. Hugo Yang EGFR-AF BHUTANESE 53 mL/min/1.73m2 Critically low >=60 [facility] Comment on above: Performed By: #### F T3, TSH #### [facility] [address] [place] [address] [address] Hugo Yang EGFR-NON AF BHUTANESE 44 mL/min/1.73m2 Critically low >=60 [facility] Comment on above: Performed By: #### F T3, TSH #### [facility] [address] [address] [address] Hugo Yang Glucose [Mass/Vol] 112 mg/dL Critically high 74-106 [facility] Comment on above: Performed By: #### F T3, TSH #### [facility] [address] [address] [address] Hugo Yang Potassium [Moles/Vol] 4.6 mmol/L Normal 3.4-5.0 [facility] Comment on above: Performed By: #### F T3, TSH #### [facility] [address] [address] [address] Hugo Yang Sodium [Moles/Vol] 142 mmol/L Normal 137-145 [facility] Comment on above: Performed By: #### F T3, TSH #### [facility] [address] [address] [address] Hugo Yang Urea nitrogen [Mass/Vol] 28.0 mg/dL Critically high 7.0-18.0 [facility] Comment on above: Performed By: #### F T3, TSH #### [facility] [address] [address] [address] Hugo Yang Urea nitrogen/Creatinin e [Mass ratio] 23.5 mg/mg Normal [facility] Comment on above: Performed By: #### F T3, TSH #### [facility] [address] [address] [address] Hugo aYng TROPONIN, HIGH SENSITIVITYon 06-04-2021 HSTROP 27.1 pg/mL Normal 4.0-35.5 [facility] Comment on above: Result Comment: CUT- OFF POINTS HAVE BEEN ESTABLISHED BASED ON THE FOURTH UNIVERSAL DEFINITIONS OF MYOCARDIAL INFARCTION. THE UPPER REFERENCE LIMIT (URL) OF TROPONIN, DEFINED THE 99TH PERCENTILE OF cTnI DISTRIBUTION IN A REFERENCE POPULATION, HAS BEEN CONFIRMED THE DECISION THRESHOLD FOR AR DIAGNOSIS. Performed By: #### F T3, TSH #### [facility] [address] [place], [place] [address] Dr. Hugo Yang XR CHEST 1 Von 06-04-2021 XR CHEST 1 V EXAMINATION: XR CHES T 1 V HISTORY: SHORTNESS OF BREATH COMPARISON: XR chest 12/24/2020, 11/20/2020 FINDINGS: LUNGS: Elevated right hemidiaphragm with mild haziness and stranding within right lung base. Mild right lower lobe bronchiectasis. VASCULATURE: No increased pulmonary vasculature. PLEURA: No pneumothorax, effusion, or pleural thickening. CARDIAC: Suspect mild cardiomegaly. Stable cardiac pacer. MEDIASTINUM: No visible mass or adenopathy. BONES: No fracture or visible bone lesion. OTHER: Negative. IMPRESSION: 1. Elevated right hemidiaphragm with mild right basilar atelectasis versus infiltrates, stable to minimally increased compared to prior study. Electronically authenticated by: JOEL ANDINO Date: 2021-06-04 11:09 Normal [facility] Cardiovascular Lab Reporton 12-28-2020 Cardiovascular Lab Report [id number] Physician: Keanu Islas MD Department of Service Date: 12/28/2020 Medicine Birthdate: 1940 Division of Room #: [facility] [address] [place] [address] Cardiovascular Laboratory Report AV NODE ABLATION PROCEDURE REPORT DATE OF PROCEDURE: 12/28/2020 PERFORMING PHYSICIAN: Dr. Keanu Islas CONSENT: Patient NAME OF THE PROCEDURE: AV node ablation LOCATION: EP Lab INDICATIONS FOR PROCEDURE: 1. H/o of AFib with RVR PROCEDURAL SEDATION: Versed and Fentanyl. Moderate sedation was administered by the sedation nurse under my supervision and noted in the CVL log. Intraprocedural face to face sedation time:25 min. Monitoring: Cardiac telemetry, Blood pressure, continuous pulse oxymetry. FLUROSCOPY: 24s/ 2mGray PROCEDURE PERFORMED: 1. Comprehensive EP study. 2. Pre and post ablation device testing. 3. AV node ablation. 4. Ultrasound venous access. INDICATIONS: 80-year-old lady with a history of atrial fibrillation with rapid ventricular rate, who is undergoing a single-chamber pacemaker for planned AV node ablation. Given the fact that she has come for AV node ablation. The patient was noted to be in atrial fibrillation with controlled ventricular rate on the day of arrival. PROCEDURAL DETAILS: The patient was brought to the electrophysiology laboratory and continuous electrocardiographic monitoring was instituted. After a procedural pause identifying the patient, the procedure I decided to proceed following administration of antibiotics (Ancef). Following presentation to the lab, I checked her lead threshold and noted to be 1V. The device was programmed at VVI 40bpm. The right groin was prepped and draped. Under ultrasound guidance, an 8-Monegasque venous access was procured, and a short sheath was placed. Non-irrigated 8mmThermocool ablation catheter was advanced to the site of the His and the His and Coronary sinus was mapped using CARTO 3D mapping software. Thereafter, given the history of tachycardia, I decided to proceed with an AV node ablation. HV47 ms. Subsequent to this, the catheter was flexed and pulled back and then ablation was performed with power of 60W targeting a temperature of >50C. Few seconds into ablation, complete heart block with underlying ventricular pacing at 40bpm was noted. Insurance lesions were provided in the slow pathway area also. After a 15min wait, thresholds were checked again and noted to be the same and the device was programmed at VVIR mode at 80bpm with underlying complete heart block with junctional escape. Thresholds were noted RV 1.0V@0.5ms. Sheaths and catheters were removed, and hemostasis was achieved. Patient was returned to the room. POST PROCEDURE EXAM: Patient was hemodynamically stable. COMPLICATIONS: None. ESTIMATED BLOOD LOSS: 5cc IMPRESSION: 1. Successful AV Node ablation. 2. Device thresholds pre and post ablation. RECOMMENDATIONS: 1. No heavy lifting for 1 week. 2. Follow up in EP clinic in 1 month. 3. Continue anticoagulation. Keanu Islas MD Cardiac Electrophysiology. Electronically Signed by: Keanu Islas MD 01/02/2021 01:38 P Keanu Islas MD Date Dict: 12/28/2020/03:34 P/Keanu Islas MD Date Trans: 12/28/2020 04:43 P/mmo [id number] cc: Ole Yang M.D. 3 [facility] [address] [address] [facility] Cardiovascular Lab Reporton 11-19-2020 Cardiovascular Lab Report [facility] Patient Name: Jasmine [facility] MR #: [id number] Physician: Keanu Islas MD Department of Service Date: 11/19/2020 Medicine Birthdate: 1940 Division of Room #: CC Cardiology Adult Cardiovascular Services [facility] [address] [place] [address] Cardiovascular Laboratory Report PACEMAKER IMPLANT PROCEDURE NOTE DATE OF PROCEDURE: 11/19/20 PERFORMING PHYSICIAN: Dr. Keanu Islas CONSENT: Patient LOCATION: EP Lab PROCEDURE PERFORMED: 1. Implantation of pacemaker ([employer]) 2. Ultrasound guided venous access INDICATIONS: 1. Atrial fibrillation with RVR. 2. PPM prior to AVN ablation PROCEDURAL SEDATION: Versed and Fentanyl. Moderate sedation was administered by the sedation nurse under my supervision and noted in the CVL log. Intraprocedural face to face sedation time: 84min. Monitoring: Cardiac telemetry, Blood pressure, continuous pulse oxymetry. FLUOROSCOPY TIME: 6min 41sec / 19mGray PREPARATION: 80-year-old lady with a history of atrial fibrillation with RVR. She was symptomatic and known to be short of breath when she has this episode. Given that she has had an atrial fibrillation for quite some time and the probability of success rate of maintaining sinus rhythm with the ablation was considered less due to atrial remodelling, the decision was made to proceed with pacemaker and AV node ablation based on the patient's request. Hence, she is brought for a pacemaker placement. She was noted to be in atrial fibrillation with varying RR intervals on presentation to the EP lab. PROCEDURAL DETAILS: Patient was placed in trendelenberg position and ultrasound was used to evaluate the patency of left axillary vein and for venous access. Left axillary venous access was obtained using modified seldinger technique using a 5 Monegasque micro-puncture needle on one occasion and 0.35 wire was placed. Local infiltration of 1% Lidocaine was performed, and an incision was created in the left upper chest. Dissection was then performed using cautery down to the fascial plane above the muscle. A small pocket was created for the device. 8 Monegasque Safesheath was placed over the wire. Then a His sheath was advanced over a glide wire into the right ventricle. The wire and dilator was then removed. An active fixation [employer] pacing lead was then delivered through the His sheath to the right ventricle. I identified an area where pacing revealed a QRS of 120ms in unipolar configuration. After confirmation of lead position on orthogonal views (PATEL and FATUMA) to confirm septal position, the screw was activated. However when sheath was withdrawn, there was loss of capture noted with respiration. So I decided to reposition the lead but the thresholds were not satisfactory. I then decided to advance the lead further and mapping was performed where stable capture was noted below 1V. The lead was placed activated and after confirmation of good sensing parameters, injury pattern and pacing thresholds, 10V pacing was done and no diaphragmatic stimulation was noted. The sheath was split and short sheath removed. It was then secured in the pocket using three 1-0 Silk sutures. Pocket hemostasis was secured, and it was then copiously and vigorously irrigated with antibiotic solution. The lead was attached to the generator and then wrapped under the device and the device was tacked to underlying muscle and placed in the pocket. The pocket was closed in layers: subcutaneous layer using 2-0 Vicryl; subcuticular using 3-0 absorbable monofilament suture. Glue was applied and Tegaderm dressing was placed on top. Lead parameters were then rechecked through the device as noted below. The patient was returned to the short stay room for post procedural observation. No immediate procedural complications were noted. Device info: [employer] Accolade MRI EL SR IS1 Model# L310 Serial# [id number] RV lead: Model# [id number] [id number] (59cms) Serial# [id number] Sensin.3mV Threshold: 0.6V@0.4ms Impedance: 655 Ohms POST PROCEDURE EXAM: Patient was hemodynamically stable. COMPLICATIONS: None. ESTIMATED BLOOD LOSS: 5cc IMPRESSION: 1. Successful dual chamber pacemaker with excellent pacing and sensing parameters. RECOMMENDATIONS: 1. Occlusive dressing to be removed after 2 weeks. 2. Do not wet the incision for 7 days. 3. No lifting heavy weights using arm on the same side x 3weeks 4. Do not lift elbow above the shoulder on the same side for 4-6 weeks. 5. No driving for 1 month. 6. F/u in device clinic 1 week from discharge or sooner for any concerns. 7. Planned AV node ablation in 4 weeks. Keanu Islas MD Cardiac Electrophysiology Electronically Signed by: Keanu Islas MD 11/19/2020 08:12 P Keanu Islas MD Date Dict: 11/19/2020 (more content not included)... Normal [facility] Encounters Encounter Date Encounter Type Care Provider Facility Start: 05-27-2023 End: 05-27-2023 ambulatory BRAD ANDERSON Not Available Start: 04-27-2023 End: 04-27-2023 ambulatory [facility] Start: 04-27-2023 End: 04-27-2023 Office outpatient visit 15 minutes [facility] OD Work Phone: [facility] Comment on above: Esotropia of right e ye (Primary Dx); Right abducens nerve palsy; Double vision Start: 02-19-2023 End: 02-19-2023 ambulatory OLE YANG Not Available Start: 02-11-2023 End: 02-11-2023 ambulatory OLE YANG Not Available Start: 01-28-2023 End: 01-28-2023 ambulatory OLE YANG Not Available Start: 01-20-2023 End: 01-20-2023 ambulatory [facility] Start: 12-30-2022 End: 12-30-2022 ambulatory [facility] Start: 07-22-2022 End: 07-22-2022 ambulatory [facility] Start: 07-15-2022 End: 07-15-2022 ambulatory [facility] Start: 05-14-2022 End: 05-15-2022 ambulatory PRUDENCIO MARTINEZ Facility:[facility] Start: 03-20-2022 ambulatory KEANU ISLAS [facility] Start: 03-19-2022 End: 03-20-[address] BRAD ANDERSON Facility:[facility] Start: 12-23-2021 End: 12-24-2021 ambulatory SHELDON GOTTLIEB Facility:[facility] Start: 11-25-2021 End: 11-26-2021 ambulatory PRUDENCIO MARTINEZ Facility:[facility] Start: 09-04-2021 End: 09-05-2021 ambulatory SHELDON GOTTLIEB Facility:[facility] Start: 08-23-2021 Encounter for other preprocedural examination SHELDON CHERY [facility] Start: 08-23-2021 Encounter for preprocedural laboratory examination SHELDON CHERY [facility] Start: 08-22-2021 End: 08-23-2021 ambulatory KEANU ISLAS Facility:[facility] Start: 08-21-2021 End: 08-22-2021 ambulatory KEANU ISLAS Facility:[facility] Start: 08-20-2021 End: 08-21-2021 ambulatory SHELDON GOTTLIEB Facility:[facility] Start: 08-20-2021 End: 08-21-2021 Encounter for other preprocedural examination SHELDON GOTTLIEB Facility:[facility] Start: 07-30-2021 End: 07-31-2021 ambulatory SHELDON GOTTLIEB Facility:[facility] Start: 06-28-2021 End: 06-29-2021 ambulatory LARRY ANTON Facility:[facility] Start: 06-20-2021 Encounter for other specified special examinations SHELDON GOTTLIEB [facility] Start: 06-18-2021 End: 06-19-2021 ambulatory SHELDON GOTTLIEB Facility:[facility] Start: 06-18-2021 End: 06-19-2021 Encounter for other specified special examinations LARRY ANTON Facility:[facility] Start: 06-17-2021 End: 06-17-[address] MAYRA CHOI Facility:[facility] Start: 06-12-2021 End: 06-13-2021 ambulatory SHELDON GOTTLIEB Facility:[facility] Start: 06-04-2021 End: 06-04-2021 ambulatory GABRIEL GREEN Facility:[facility] Start: 12-28-2020 End: 12-29-2020 ambulatory KEANU ISLAS Facility:[facility] Start: 11-19-2020 End: 11-20-2020 ambulatory KEANU ISLAS Facility:[facility] Procedures Date Procedure Procedure Detail Performing Clinician Start: 04-27-2023 Follow-up visit Follow-up ELIEL NICHOLS Plan of Treatment Date Care Activity Detail Author Start: 04-26-2024 Tobacco Screening Tobacco Screening Subtextual Start: 12-04-2023 Adult BMI Screening Adult BMI Screen ing Subtextual Start: 08-17-2007 Fall Risk Screening Fall Risk Screen ing Subtextual Start: 1961 DTaP,Tdap and Td Vaccines (1 - Tdap) DTaP,Tdap and Td Vaccines (1 - Tdap) Subtextual Start: 1960 Adult BMI Follow Up Plan Adult BMI Follow Up Plan Subtextual Start: 1954 Depression Screening Depression Scre ening Subtextual Start: 1940 Medicare Annual Wellness Visit Medicare [facility] Payers Date Payer Category Payer Unknown COMMERCIAL [employer]ME RCIAL - GENERIC PLAN [id number] 2022-Present [phone] [address] [address] [place] [address] [id number] 2004 Medicare MEDICARE MEDICAR E PART A & B [id number] 2004-Present [phone] [address] [place] [address] [id number] 1959 Medicare [id number] 1959 Unknown [id number] 1940 Unknown [id number] 2.16.840.1.058286.3.579.2.647 1940 Unknown [id number] 2.16.840.1.503461.3.579.2.647 1940 Unknown [id number] 2.16.840.1.545508.3.579.2.647 1942 Unknown [id number] 2.16.840.1.690061.3.579.2.593 1942 Unknown [id number] 2.16.840.1.240442.3.579.2.593 1942 Unknown [id number] 2.16.840.1.522570.3.579.2.593 1942 Unknown [id number] 2.16.840.1.705276.3.579.2.593 1942 Unknown [id number] 2.16.840.1.646318.3.579.2.593 1942 Unknown [id number] 2.16.840.1.076436.3.579.2.593 1942 Unknown [id number] 2.16.840.1.619725.3.579.2.593 1942 Unknown [id number] 2.16.840.1.409809.3.579.2.593 1942 Unknown [id number] 2.16.840.1.037487.3.579.2.593 1942 Unknown [id number] 2.16.840.1.988902.3.579.2.593 1942 Unknown [id number] 2.16.840.1.117473.3.579.2.593 1942 Unknown [id number] 2.16.840.1.929978.3.579.2.593 1942 Unknown [id number] 2.16.840.1.793401.3.579.2.593 1942 Unknown [id number] 2.16.840.1.526438.3.579.2.593 1942 Unknown [id number] 2.16.840.1.370792.3.579.2.593 1942 Unknown [id number] 2.16.840.1.429976.3.579.2.1286 1942 Unknown [id number] 2.16.840.1.304670.3.579.2.1259 1942 Unknown [id number] 2.16.840.1.375106.3.579.2.1259 1942 Unknown [id number] 2.16.840.1.585198.3.579.2.1259 1942 Unknown [id number] 2.16.840.1.299177.3.579.2.1259 Social History Date Type Detail Facility Start: 08-13-2022 Tobacco smoking stat [facility] Never smoked tobacco [facility] Start: 08-13-2022 Tobacco use and exposure Smokeless tobacco non-user [facility] Start: 04-28-2023 History of Social function [facility] Start: 04-28-2023 Tobacco use panel [facility] Start: 1940 Sex Assigned At Not on file P [facility] History of Present illness Narrative 04-27-2023 Eliel Astorga, OD - 04/27/2023 11:00 AM EDT Note Date & Type Note Facility 04-27-2023 History of Present illness Narrative Lluvia Hill Jasmine 1940 Diagnosis: 1. Esotropia of right eye 2. Right abducens nerve palsy 3. Double vision Assessment/Plan: Chronic right CN palsy. She has a history of thyroid issues but there were no signs of Grave's disease on her MRI. Dr. Tenorio suspected myasthenia. Diplopia worse with fatigue. Myasthenia panel negative. Denies other symptoms of myasthenia gravis. Patient saw Dr. Gracia who does not feel myasthenia is the cause of her diplopia. Given all work up negative, most likely, this is a chronic, nonresolving vasculopathic CN palsy. She is happy with the Fresnel at this point. Discussed the option of strabismus repair as her measurements are very stable. Discussed permanently placing prism into glasses but this amount of prism will likely be too thick. Recommend continuing with Hui as she is doing very well with it and doesn't mind it being on her glasses. She would like to follow up with her local human services instructor for regular eyecare/comprehensive exams. Will send a copy of today's note. I am happy to see her back as needed. Follow Up: Return if symptoms worsen or fail to improve. Chief Complaint: Lluvia Moreno had concerns including Follow-up. HPI This is an established patient presenting for fresnel/diplopia check. Patient states she is doing very well with fresnel and that diplopia has diminished significantly. Patient prefers to take glasses off for near tasks. 20 BILLY on OD lens. The patient is not currently using any eyedrops or AT's. Last edited by Jacqui Dubose on 04/27/2023 11:09 AM. ROS Positive for: Eyes Last edited by Jacqui Dubose on 04/27/2023 10:59 AM. No current outpatient medications on file. (Ophthalmic Drugs) No current facility-administered medications for this visit. (Ophthalmic Drugs) Current Outpatient Medications (Other) Medication Sig ascorbic acid, vitamin C, (vitamin C) 1000 mg tablet Take 1 tablet (1,000 mg total) by mouth in the morning. aspirin 81 mg daily. atorvastatin (LIPITOR) 80 mg tablet bumetanide (BUMEX) 1 mg tablet as needed. calcium carbonate-vitamin D3 600 mg(1,500mg) -200 units per tablet 1 (one) time each day at the same time. cholecalciferol, vitamin D3, 10 mcg (400 unit) capsule 1 (one) time each day at the same time. ELIQUIS 5 mg tablet lisinopriL (PRINIVIL,ZESTRIL) 5 mg tablet Take 1 tablet (5 mg total) by mouth in the morning. LORazepam (ATIVAN) 0.5 mg tablet lorazepam 0.5 mg tablet methIMAzole (TAPAZOLE) 10 mg tablet Take 0.5 tablets every day by oral route. metoprolol succinate XL (TOPROL XL) 50 mg 24 hr tablet multivitamin,ui-fklc-Hv-FA-min 27-0.4 mg tablet 1 (one) time each day at the same time. PARoxetine (PAXIL) 20 mg tablet predniSONE (DELTASONE) 20 mg tablet TAKE 1 TABLET (20 MG) BY MOUTH IN THE MORNING AND 1 TABLET (20 MG) BEFORE BEDTIME. DO ALL THIS FOR 5 DAYS. spironolactone (ALDACTONE) 25 mg tablet Take 1 tablet (25 mg total) by mouth in the morning. tiotropium-olodateroL 2.5-2.5 mcg/actuation mist Inhale 2 puffs every day by inhalation route. lovastatin (MEVACOR) 40 mg tablet lovastatin 40 mg tablet (Patient not taking: Reported on 12/22/2022) No current facility-administered medications for this visit. (Other) Ms. Moreno has a past medical history of COPD (chronic obstructive pulmonary disease) ([facility]) and Hypertension. She has a past surgical history that includes Hysterectomy; Knee surgery (Bilateral); Appendectomy; and Cardiac defibrillator placement. Base Eye Exam Visual Acuity (Snellen - Linear) Right Left Both Dist cc 20/50 +2 20/30 +2 20/25 -2 Dist ph cc NI Near sc 20/30 20/50 20/40 Correction: Glasses Pupils Pupils Right PERRL Left PERRL Extraocular Movement CT: neutralizes with 24 BILLY sc Worse on the right gaze Neuro/Psych Oriented x3: Yes Mood/Affect: Normal Slit Lamp and Fundus Exam External Exam Right Left External scleral show inferiorly, no proptosis scleral show inferiorly, no proptosis Slit Lamp Exam Right Left Lids/Lashes Dermatochalasis - upper lid Dermatochalasis - upper lid Conjunctiva/Sclera White and quiet White and quiet Cornea Clear Clear Anterior Chamber Deep and quiet Deep and quiet Iris Round and reactive Round and reactive Lens 2+ Nuclear sclerosis 2+ Nuclear sclerosis Scribe Statement: Scribed for and in the presence of Eliel Nichols OD by SHANTEL Price. Provider Statement: I, Eliel Nichols OD personally performed the services described in the documentation, as scribed by SHANTEL Price in my presence, and it is both accurate and complete. documented in this encounter [facility] Progress note 12-30-2022 Note Date & Type Note Facility 12-30-2022 Note Patient here for 6 m o follow up persistent afib, cardiomyopathy, CAD, and mitral valve regurgitation. Had labs last month. Hasn't needed to take Bumex lately. Denies chest pain, palpitations, and lightheadedness. Did fall in the shower last month, tripped over something. Denies bleeding on Eliquis. Had bronchitis a few weeks ago and is feeling much better. Scheduled for device check next month. Review of Systems Cardiovascular: Positive for dyspnea on exertion and leg swelling. Respiratory: Positive for cough (improving). Musculoskeletal: Positive for falls and muscle weakness. Neurological: Positive for loss of balance and weakness. All other systems reviewed and are negative. [facility] Progress note 12-30-2022 Note Date & Type Note Facility 12-30-2022 Note [facility] Consul t Note Reason for Consultation: rolanda MEDICATION AID-D upgrade, 6-month follow-up 12/30/22: Has been doing well She is on BB and device shows NSVT x1 She has some CLAIRE and LE edema which is chronic. It is stable today , takes bumex as needed, Device check 07/22/2022: MEDICATION AID-D pacing 92%, normal device function stable lead measurements, she did have 1 NSVT event consistent with VT for 4.8 seconds and self terminated 07/15/22 HPI: . Is here for 6-month follow-up she had her device check 03/20/2022 which showed normal device function and stable lead thresholds, RV paced 92%, LV paced 92%, No arrhythmias noted. She has been feeling well with no complaints of chest pain, shortness of breath, LE edema, palpitations, lightheadedness. She is having her device checked in July. ------ -------- 12/31/[address] islas HPI: Lluvia Moreno is a 82 y.o. year old with past medical history of CAD, hypertension, persistent atrial fibrillation that was initially diagnosed based on a hospital admission in 2016. She had undergone cardioversion on 2 occasions but since reverted to A. fib. Based on the records it appears that she has been in A. fib since 2019. She states that she is markedly short of breath with exertion. There has been previous hospitalization with A. fib with RVR. Patient had presented with her shortness of breath and she is s/p PCI to LAD 2015, persistent afib with RVR s/p PPM placement 11/19/20 and AV node ablation on 12/28/20 (on eliquis) with associated HTN, MVR, CVA. pt states that last December after her ablation and pacemaker insertion she felt pretty good. After pacemaker adjustment about 1 1/2 months later states that her shortness of breath worsened. subsequently she was noted to have cardiomyopathy when she had 100% RV pacing and so the device was upgraded to MEDICATION AID-D and old RV pacing lead was extracted. Segment of this elevated echocardiogram was performed which showed improvement of EF from 30 to 45%. Device check performed on July 06, 2019July shows and pacemaker programmed at 70 bpm. Thresholds were noted to be 0.6 and 1.1V respectively. Patient underwent BiV MEDICATION AID-D upgrade on 08/21/2021 1. Successful BiV-ICD implantation with excellent pacing and sensing parameters, 2. Explantation of previously implanted pacemaker generator. 3. Extraction of previously RV placed pacing lead EKG 07/06/2020 shows A. fib with controlled ventricular rate 10/28/2018 shows A. fib 08/06/2018 shows atrial fibrillation 08/25/2016 shows sinus rhythm Echocardiogram 12/23/2021 shows that the EF had improved from 30 to 45% the LA and the right atrium is severely dilated. 06/12/2021 showed that the ejection fraction had dropped to 30% with severe left atrial dilatation and severe right atrial dilatation with RVSP of 27 mmHg. The drop in EF was significant compared to the previous study in 07/11/2020 with a EF was 58%. 07/29/2018 shows ejection fraction that is normal with a severely enlarged left atrium and a moderately enlarged right atrium with mild MR 07/09/2017 ejection fraction was 60 to 65% with the left atrium again severely enlarged mild MR 05/27/2016 shows EF that is normal with a left atrium is moderately enlarged right atrium is normal in size mild MR Stress test that was performed on 09/01/2016 showed no evidence of ischemia with a normal ejection fraction Cardiac catheterization was done to evaluate the drop in EF which revealed mild in-stent restenosis of the LAD and otherwise nonobstructive coronary angiography there was normal right-sided heart pressures and wedge pressures right common iliac vein was noted to have some stenosis. PMH: Past Medical History: Diagnosis Date Abnormal ECG Arrhythmia Atrial fibrillation (CMS/HCC) CHF (congestive heart failure) (CMS/HCC) Coronary artery disease Heart valve disease PSH: Past Surgical History: Procedure Laterality Date ABLATION OF DYSRHYTHMIC FOCUS CARDIAC CATHETERIZATION CARDIOVERSION HYSTERECTOMY INSERT / REPLACE / REMOVE PACEMAKER KNEE SURGERY SH: Social Determinants of Health Tobacco Use: Low Risk (07/15/2022) Patient History Smoking Tobacco Use: Never Smokeless Tobacco Use: Never Passive Exposure: Not on file Alcohol Use: Not on file Financial Resource Strain: Not on file Food Insecurity: Not on file Transportation Needs: Not on file Physical Activity: Not on file Stress: Not on file Social Connections: Not on file Intimate Partner Violence: Not on file Depression: Not on file Housing Stability: Not on file Meds: Current Outpatient Medications on File Prior to Visit Medication Sig Dispense Refill apixaban (Eliquis) 5 mg tablet Take 1 tablet twice a day by oral route for 90 days. aspirin 81 mg EC tablet Take 1 tablet every day by oral route. atorvastatin (Lipitor) 80 mg tablet Take 1 tablet by mouth (more content not included)... [facility] Progress note 07-15-2022 Note Date & Type Note Facility 07-15-2022 Note Patient here for 6 m o follow up PAF, CAD, hypertension, and mitral valve regurgitation. Had thyroid testing in April 2022. She is also due for a device interrogation. She was unable to tolerate Farxiga due to dizziness. Says she feels better now than she used to. Has intermittent SOB w/ exertion. Takes Bumex prn. BP at PCP's office last month was 108/72. Review of Systems Cardiovascular: Positive for dyspnea on exertion (intermittent) and leg swelling (intermittent). All other systems reviewed and are negative. [facility] Progress note 07-15-2022 Note Date & Type Note Facility 07-15-2022 Note [facility] Consul t Note Reason for Consultation: s.p MEDICATION AID-D upgrade, 6-month follow-up HPI: . Is here for 6-month follow-up she had her device check 03/20/2022 which showed normal device function and stable lead thresholds, RV paced 92%, LV paced 92%, No arrhythmias noted. She has been feeling well with no complaints of chest pain, shortness of breath, LE edema, palpitations, lightheadedness. She is having her device checked in July. ------ -------- 12/31/[address] islas HPI: Lluvia Moreno is a 81 y.o. year old with past medical history of CAD, hypertension, persistent atrial fibrillation that was initially diagnosed based on a hospital admission in 2015. She had undergone cardioversion on 2 occasions but since reverted to A. fib. Based on the records it appears that she has been in A. fib since 2019. She states that she is markedly short of breath with exertion. There has been previous hospitalization with A. fib with RVR. Patient had presented with her shortness of breath and she is s/p PCI to LAD 2015, persistent afib with RVR s/p PPM placement 11/19/20 and AV node ablation on 12/28/20 (on eliquis) with associated HTN, MVR, CVA. pt states that last December after her ablation and pacemaker insertion she felt pretty good. After pacemaker adjustment about 1 1/2 months later states that her shortness of breath worsened. subsequently she was noted to have cardiomyopathy when she had 100% RV pacing and so the device was upgraded to MEDICATION AID-D and old RV pacing lead was extracted. Segment of this elevated echocardiogram was performed which showed improvement of EF from 30 to 45%. Device check performed on July 06, 2019 [place] shows and pacemaker programmed at 70 bpm. Thresholds were noted to be 0.6 and 1.1V respectively. Patient underwent BiV MEDICATION AID-D upgrade on 08/21/2021 1. Successful BiV-ICD implantation with excellent pacing and sensing parameters, 2. Explantation of previously implanted pacemaker generator. 3. Extraction of previously RV placed pacing lead EKG 07/06/2020 shows A. fib with controlled ventricular rate 10/28/2018 shows A. fib 08/06/2018 shows atrial fibrillation 08/25/2016 shows sinus rhythm Echocardiogram 12/23/2021 shows that the EF had improved from 30 to 45% the LA and the right atrium is severely dilated. 06/12/2021 showed that the ejection fraction had dropped to 30% with severe left atrial dilatation and severe right atrial dilatation with RVSP of 27 mmHg. The drop in EF was significant compared to the previous study in 07/11/2020 with a EF was 58%. 07/29/2018 shows ejection fraction that is normal with a severely enlarged left atrium and a moderately enlarged right atrium with mild MR 07/09/2017 ejection fraction was 60 to 65% with the left atrium again severely enlarged mild MR 05/27/2016 shows EF that is normal with a left atrium is moderately enlarged right atrium is normal in size mild MR Stress test that was performed on 09/01/2016 showed no evidence of ischemia with a normal ejection fraction Cardiac catheterization was done to evaluate the drop in EF which revealed mild in-stent restenosis of the LAD and otherwise nonobstructive coronary angiography there was normal right-sided heart pressures and wedge pressures right common iliac vein was noted to have some stenosis. PMH: Past Medical History: Diagnosis Date Abnormal ECG Arrhythmia Atrial fibrillation (CMS/HCC) CHF (congestive heart failure) (CMS/HCC) Coronary artery disease Heart valve disease PSH: Past Surgical History: Procedure Laterality Date ABLATION OF DYSRHYTHMIC FOCUS CARDIAC CATHETERIZATION CARDIOVERSION HYSTERECTOMY INSERT / REPLACE / REMOVE PACEMAKER KNEE SURGERY SH: Social Determinants of Health Tobacco Use: Low Risk Smoking Tobacco Use: Never Smokeless Tobacco Use: Never Passive Exposure: Not on file Alcohol Use: Not on file Financial Resource Strain: Not on file Food Insecurity: Not on file Transportation Needs: Not on file Physical Activity: Not on file Stress: Not on file Social Connections: Not on file Intimate Partner Violence: Not on file Depression: Not on file Housing Stability: Not on file Meds: Current Outpatient Medications on File Prior to Visit Medication Sig Dispense Refill apixaban (Eliquis) 5 mg tablet Take 1 tablet twice a day by oral route for 90 days. aspirin 81 mg EC tablet Take 1 tablet every day by oral route. atorvastatin (Lipitor) 80 mg tablet Take 1 tablet by mouth in the morning. bumetanide (Bumex) 1 mg tablet if needed. cholecalciferol (Vitamin D-3) 50 MCG (2000 UT) tablet Take 1 tablet every day by oral route. lisinopril 5 mg tablet Take 1 tablet by mouth in the morning. LORazepam (Ativan) 0.5 mg tablet TAKE ONE TABLET BY MOUTH EVERY 6 HOURS NEEDED FOR ANXIETY ATTACKS methIMAzole (Tapazole) 10 mg tablet Take 5 mg by mouth 4 (more content not included)... [facility] Clinical Note 08-22-2021 Note Date & Type Note Facility 08-22-2021 Note EXAMINATION: XR CHES T 2 V HISTORY: Cardiac pacemaker procedure COMPARISON: XR chest 06/04/2021 FINDINGS: LUNGS: Hyperexpanded lungs. No acute infiltrates or mass. VASCULATURE: No increased pulmonary vasculature. PLEURA: No pneumothorax, effusion, or pleural thickening. CARDIAC: Mild cardiomegaly. MEDIASTINUM: No visible mass or adenopathy. BONES: Marked degenerative changes of the shoulder joints. OTHER: New cardiac pacer and leads overlying the left hemithorax. IMPRESSION: 1. Cardiac pacer placement without acute abnormality. 2. Stable cardiomegaly. Electronically authenticated by: JOEL ANDINO Date: 2021-08-22 17:39 [facility] Clinical Note 06-17-2021 Note Date & Type Note Facility 06-17-2021 Note PROCEDURE: XR FEMUR LT HISTORY: Pain in lower limb ; anterior posterior mid thigh pain for one week COMPARISON: None. FINDINGS: BONES:Moderate degenerative changes of the hip joint. Prior knee replacement. No fracture, dislocation, or bone lesion. SOFT TISSUES:No visible soft tissue swelling. EFFUSION:None visible. OTHER: Negative. IMPRESSION: 1. No appreciable acute abnormality. Electronically authenticated by: JOEL ANDINO Date: 2021-06-17 11:09 [facility] Evaluation note Note Date & Type Note Facility Evaluation note Diagnosis Esotropia of right eye- Primary Unspecified esotropia Right abducens nerve palsy Double vision Diplopia documented in this encounter [facility] Instructions Attachments Note Date & Type Note Facility Instructions The following attachments cannot be sent through Care Everywhere.Double Vision (Khmer)documented in this encounter [facility] Summary Purpose Family History No Family History Records FoundNo Family History Records FoundNo Family History Records FoundNo Family History Records FoundNo Family History Records Found Advance Directives No Advanced Directives Records FoundNo Advanced Directives Records FoundNo Advanced Directives Records FoundNo Advanced Directives Records FoundNo Advanced Directives Records Found Additional Source Comments INFORMATION SOURCE (unrecogn ized section and content) DATE CREATED AUTHOR 10/15/2021 [facility] DATE CREATED AUTHOR AUTHOR'S ORGANIZ ATION 05/18/2022 [facility] DATE CREATED AUTHOR AUTHOR'S ORGANIZ ATION 01/22/2023 [facility] DATE CREATED AUTHOR AUTHOR'S ORGANIZ ATION 04/27/2023 [facility] DATE CREATED AUTHOR AUTHOR'S ORGANIZ ATION 05/28/2023 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 This clinical summary was aggregated from multiple sources. Caution should be exercised in using it in the provision of clinical care. This summary normalizes information from multiple sources, and as a consequence, information in this document may materially change the coding, format and clinical context of patient data. In addition, data may be omitted in some cases. CLINICAL DECISIONS SHOULD BE BASED ON THE PRIMARY CLINICAL RECORDS. [facility]. provides no warranty or guarantee of the accuracy or completeness of information in this document.
--- NOTE | 2023-07-08 11:11 | XR_ITS ---
The [address] [address] Patient Name: SALINA MORENO MRN: [id number] date: 1940 Sex: F Assigned Patient Location: LAB Current Patient Location: LAB Accession/Order Number: [id number] Exam Date: 07/08/2023 11:19 Report Date: 07/08/2023 13:50 At the request of: LARRY ANTON Procedure: XR chest 2V EXAMINATION: XR chest 2V HISTORY: Chronic systolic heart failure I50.22 COMPARISON: 08/22/2021 TECHNIQUE: PA and lateral FINDINGS: LUNGS: No significant pulmonary parenchymal abnormalities. VASCULATURE: No increased pulmonary vasculature. PLEURA: No pneumothorax, effusion, or pleural thickening. CARDIAC: Stable prominent heart size MEDIASTINUM: No visible mass or adenopathy. 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 XR/XR chest 2V IMPRESSION: Stable exam. No acute cardiopulmonary process Electronically authenticated by: ROLANDO MONTERO Date: 07/08/2023 13:50
[2023-07-08 11:33] LABS: Basophils Percent Auto 0.3 % (0.2-2.0); Eosinophils Absolute Auto 0.1 10^3/uL (0.0-0.7); Eosinophils Percent Auto 1.9 % (0.9-7.0); Hematocrit 41.6 % (36.0-48.0); Hemoglobin 13.3 g/dL (12.0-16.0); Immature Granulocytes Abs Auto 0.02 10^3/uL (0.00-0.03); Immature Granulocytes Pct Auto 0.3 % (0.0-0.5); Lymphocytes Percent Auto 16.3 % (20.5-60.0); Mean Corpuscular Hemoglobin 30.8 pg (26.7-34.0); Mean Corpuscular Volume 96.3 fL (81.0-99.0); Mean Platelet Volume 10.6 fL (9.5-13.5); Monocytes Absolute Auto 0.5 10^3/uL (0.3-0.8); Monocytes Percent Auto 7.3 % (1.7-12.0); Neutrophils Absolute Auto 4.6 10^3/uL (1.4-6.5); Neutrophils Percent Auto 73.9 % (43.0-75.0); Platelet Count 205 10^3/uL (150-450); Red Blood Count 4.32 10^6/uL (4.20-5.40); Red Cell Distribution Width 13.5 % (11.0-15.0); White Blood Count 6.3 10^3/uL (4.0-11.0)
[2023-07-08 12:10] LABS: Alanine Aminotransferase 48 U/L (14-59); Albumin Level 3.7 g/dL (3.4-5.0); Alkaline Phosphatase 91 U/L (46-116); Anion Gap 13.2; Aspartate Amino Transferase 35 U/L (15-37); BUN Creatinine Ratio 22.2; Bilirubin Total 0.7 mg/dL (0.2-1.0); Calcium 9.9 mg/dL (8.5-10.1); Carbon Dioxide 30.1 mmol/L (21.0-32.0); Chloride 102 mmol/L (98-107); Estimated GFR (African America 46 (>=60); Estimated GFR (Non-African Ame 38 (>=60); Globulin 3.7 g/dL; Glucose 140 mg/dL (74-106); Potassium 5.3 mmol/L (3.5-5.1); Sodium 140 mmol/L (136-145); Total Protein 7.4 g/dL (6.4-8.2)
== END 2023-07-08 10:55 | disposition home or self-care (01) ==
LOC: LAB 10:56
PROVIDERS: PCP Internal Medicine; Visit Provider Nurse Practitioner
DX: R06.09 Other forms of dyspnea (principal); I50.22 Chronic systolic (congestive) heart failure
CPT/HCPCS: 36415; 71046; 80053; 83880; 85025

== ENCOUNTER 2023-08-04 08:27 | Outpatient (OUT) | payer MEDICARE, OTHER, SELFPAY ==
--- NOTE | 2023-08-04 | PCN_ITS ---
CARDIAC STRESS TEST Requesting Physician: Melissa Wellington CNP Procedure Date: 08/04/2023 REASON FOR STRESS TEST: Shortness of breath. Patient has a history of congestive heart failure, underlying atrial fibrillation, status post ICD with Bi-VICD. At baseline, the patient was noted to have underlying atrial fibrillation with ventricular pacing with a heart rate of 70 beats per minute. EKG at baseline showed evidence of Bi-V pacing with no ischemic changes. With infusion of adenosine, the heart rate did remain the same at 70-73 beats per minute, but one minute into infusion, patient was noted to have PVCs in bigeminy pattern. With continued infusion, the maximum blood pressure noted was 146/88 mm/Hg, which is unchanged from the baseline of 147/88 at baseline. IMPRESSION: 1. Baseline atrial fibrillation with Bi-V pacing. 2. No evidence of ischemic changes on adenosine infusion. 3. Evidence of arrhythmia in the form of PVCs noted with infusion of adenosine. 4. Perfusion study to be dictated separately by Radiology. [facility]
--- NOTE | 2023-08-04 | NM_ITS ---
Patient Name: SALINA MORENO MR#: [id number] : 1940 Exam Date: 08/04/2023 Ordering Doctor: LARRY ANTON RADIOLOGY REPORT PROCEDURE: NM MAUREEN PERF SPECT REST STR COMPARISON: None. INDICATIONS: Chronic systolic heart failure, other forms of dyspnea TECHNIQUE: Exam Description: Stress/Rest one day protocol gated SPECT Rest Imagin.4 mCi Tc-99m Cardiolite IV on 08/04/2023 Stress Imaging 32.0 mCi Tc-99m Cardiolite IV on 08/04/2023 Exercise Protocol: 0.4 mg Lexiscan given IV Heart Rate (bpm): Rest: 70 Max: 78 PMHR: 55 Blood Pressure: Rest: 146/88 Max: 146/88 Symptoms: Rest and peak stress ECG findings were normal and the exercise portion of the study was normal per attending physician Dr. Islas . For more details please see separate cardiac stress test report. FINDINGS: QUALITY OF STUDY: Excellent. PERFUSION DEFECT: None. LOCATION: N/A SIZE: N/A. SEVERITY: N/A. TYPE: N/A. WALL MOTION: Normal. LV SIZE: Normal. 65 mL. TID / TCD: None; 1.0 LVEF: Normal. Calculated EF 71%. SUMMARY: Myocardial perfusion imaging study is NORMAL. CONCLUSION: 1. Normal nuclear medicine myocardial perfusion scan. Dictated by: Naeem Garcia M.D. on 08/06/2023 at 07:25 Approved by: Naeem Garcia M.D. on 08/06/2023 at 07:39
[2023-08-04] MEDS: REGADENOSON 0.4 MG/5 ML SYRINGE 0.400000000000000022 MG IV (10:10)
== END 2023-08-04 08:28 | disposition home or self-care (01) ==
LOC: NM 08:27
PROVIDERS: PCP Internal Medicine; Visit Provider Nurse Practitioner
DX: I50.22 Chronic systolic (congestive) heart failure (principal); R06.09 Other forms of dyspnea
CPT/HCPCS: 78452; 93017; A9500; J2785

== ENCOUNTER 2023-08-05 09:50 | Outpatient (OUT) | payer MEDICARE, OTHER, SELFPAY ==
--- NOTE | 2023-08-05 10:00 | CA_ITS ---
Patient Name: SALINA MORENO MR#: [id number] : 1940 Exam Date: 08/05/2023 Ordering Doctor: LARRY ANTON ECHOCARDIOGRAM REPORT PROCEDURE: CA ECHO DOPPLER COMPLETE INDICATIONS: Chronic systolic heart failure, hypertension, AICD, COPD COMPARISON: None. DESCRIPTION: COMPLETE ECHOCARDIOGRAM Real-time transthoracic echocardiography with 2D, M-mode, spectral and color flow Doppler performed. QUALITY: Technical quality was good. 67 , 170#, BP 116/70 LEFT VENTRICLE: Normal chamber size. Proximal septal hypertrophy (sigmoid septum). Normal systolic function. LV EF: Normal left ventricular ejection fraction, (>55%). DIASTOLIC: ATRIAL SEPTUM: Visually appears intact. LEFT ATRIUM: Severe dilatation. RIGHT ATRIUM: Severe dilatation. RIGHT VENTRICLE: Mild dilatation. Normal systolic function. Pacer wire present. TRICUSPID VALVE: Normal mobility and thickness. No stenosis with mild regurgitation. No evidence of pulmonary hypertension. RVSP 27 mmHg MITRAL VALVE: Normal mobility and thickness. No evidence of mitral valve stenosis. There is no mitral annular calcification. Mild mitral regurgitation. AORTIC VALVE: Normal trileaflet appearance. No visible sclerosis. Normal leaflet mobility. No evidence of aortic valve stenosis. No aortic regurgitation. AORTIC ROOT: Normal diameter and appearance. Ascending aorta is normal in size. PULMONIC VALVE: Normal thickness and mobility. No stenosis. Mild regurgitation. PERICARDIUM: No evidence of pericardial effusion. IVC: Collapses with inspirations. IVC is normal in size. PLEURA: CONCLUSION: 1. Normal left ventricular size and systolic function. LVEF is 55 to 60%. 2. Mildly dilated right ventricle with normal systolic function. 3. Severe biatrial dilatation. 4. Mild mitral and tricuspid regurgitation. 5. Normal right-sided pressures. Adult Echocardiography Procedure Report Left Ventricle LVEDD (3.7 - 5.6 cm): 3.98 cm LVESD (2.2 - 4.0 cm): 2.91 cm LVIVS thickness (0.6 - 1.2 cm): 1.52 cm LVPW thickness (0.5 - 1.0 cm): 1.14 cm e': 0.09 m/s E - e': 10.64 LVOT Max Gradient: 2.15 mm[Hg] LVOT Area (cm2): 0.73 m/s Peak Velocity (LVOT): 0.73 m/s Mean Velocity (LVOT): 0.49 m/s LVOT Diameter 2.13 cm Left Atrium LA Volume Index (2D A2C): 62.81 ml/m2 Left Atrium Systolic Dimension: 5.08 cm Mitral Valve MV E to A Ratio: 4.58 Mitral Valve A-Wave Peak Velocity: 0.22 m/s Mitral Valve E-Wave Peak Velocity: 1.01 m/s Right Ventricle Aorta AO Root Diam: 2.84 cm Ascending Ao Diam: 2.98 cm Aortic Valve AoV Area (Peak Vicente): 2.55 cm2, 2.55 cm2 AoV Area (VTI): 2.78 cm2, 2.78 cm2 Peak Velocity(Antegrade Flow): 1.02 m/s Peak Gradient(Antegrade Flow): 4.19 mm[Hg] Mean Velocity(Antegrade Flow): 0.69 m/s Mean Gradient(Antegrade Flow): 2.14 mm[Hg] Velocity Time Integral: 21.43 cm Tricuspid Valve Peak Velocity (Regurgitant Flow): 2.46 m/s, 2.31 m/s Pulmonic Valve Peak Gradient: 2.77 mm[Hg], 3.51 mm[Hg] Right Atrium Right Atrium Systolic Pressure: 101.68 ml, 101.68 ml Dictated by: Eyal Lucas M.D. on 08/07/2023 at 17:56 Approved by: Eyal Lucas M.D. on 08/07/2023 at 17:59
--- OUTSIDE RECORDS SUMMARY | 2023-08-05 10:07 | XMS_ITS ---
Patient Summarization (C-CDA 2.1 CCD) Created on: August 05, 2023 LLUVIA MORENO : 1940 Sex: Female Author Organization Sample organization Care Team Providers Care Investment Counselor Name Role Phone KEANU ISLAS Admitting Unavailable [...] Primary Care Unavailable MICHELLE, AHMAD Attending Unavailable MICHELLE, AHMAD Admitting Unavailable CHERY, SHELDON Consulting Unavailable SHELDON GOTTLIEB Attending Unavailable SHELDON GOTTLIEB Admitting Unavailable EMILY, DR GRANT Primary Care Unavailable STEPH, DR MAYRA Denson Admitting Unavailabl e REINECK, DR MAYRA Denson Consulting Unavailabl e YANG, DR GRANT Primary Care Unavailable STEPH, DR MAYRA Denson Attending Unavailabl e ZIEBER, DR JOEL Petersen Consulting Unavailable DESEAN, LARRY Consulting Unavailable DESEAN, LARRY Attending Unavailable DR OLE YANG Primary Care Unavailable DESEAN, LARRY Admitting Unavailable DESEAN, LARRY Admitting Unavailable DESEAN, LARRY Consulting Unavailable DESEAN, LARRY Attending Unavailable SHELDON GOTTLIEB Primary Care Unavailable OBI GOTTLIEBA Consulting Unavailable SHELDON GOTTLIEB Attending Unavailable OBI GOTTLIEBA Admitting Unavailable EMILY, DR GRANT Primary Care Unavailable MICHELLE, AHMAD Consulting Unavailable MICHELLE, AHMAD Attending Unavailable EMILY, DR GRANT Primary Care Unavailable MICHELLE, AHMAD Admitting Unavailable GABRIEL GREEN Admitting Unavailable EMILY, DR GRANT Primary Care Unavailable GABRIEL GREEN Attending Unavailable SINA, DR JOEL Petersen Consulting Unavailable GABRIEL GREEN Consulting Unavailable CHERY, SHELDON Consulting Unavailable OBI GOTTLIEBA Attending Unavailable KENZIE GOTTLIEBINDA Admitting Unavailable EMILY, DR GRANT Primary Care Unavailable HEMMER, DR BRAD Montesinos Admitting Unavailable YANG, DR GRANT Primary Care Unavailable SINA, DR JOEL Petersen Consulting Unavailable HEMMER, DR BRAD Montesinos Attending Unavailable HEMMER, DR BRAD Montesinos Consulting Unavailable CHERY, SHELDON Attending Unavailable CHERY, SHELDON Admitting Unavailable CHERY, SHELDON Consulting Unavailable EMILY, DR GRANT Primary Care Unavailable MICHELLE, DONNAMAD Attending Unavailable YANG, DR GRANT Primary Care Unavailable MICHELLE, AHMAD Admitting Unavailable MICHELLE, AHMAD Consulting Unavailable CHERY, SHELDON Attending Unavailable CHERY, SHELDON Admitting Unavailable EMILY, DR GRANT Primary Care Unavailable ZIURBAN, DR JOEL Petersen Consulting Unavailable CHERY, SHELDON Consulting Unavailable KEANU ISLAS Admitting Unavailable KEANU ISLAS Attending Unavailable EMILY, DR GRANT Primary Care Unavailable ZIURBAN, DR JOEL Petersen Consulting Unavailable KEANU ISLAS Consulting Unavailable CHERY, SHELDON Consulting Unavailable CHERY, SHELDON Attending Unavailable CHERY, SHELDON Admitting Unavailable EMILY, DR GRANT Primary Care Unavailable OBELIEL CELESTE Attending Unavailable OLE YANG Referring Unavailable OLE YANG Primary Care Unavailable Ole Yang MD Primary Care Provider OLE YANG Attending Unavailable OLE YANG Attending Unavailable OLE YANG Attending Unavailable BRAD ANDERSON Attending Unavailable OLE YANG Attending Unavailable KWAN RANGEL Attending Unavailable KEANU ISLAS Referring Unavailable LARRY ANTON Attending Unavailable KEANU ISLAS Referring Unavailable Encounters Encounter Date Encounter Type Care Provider Facility Start: 07-27-2023 ambulatory KEANU ISLAS [facility] Start: 07-27-2023 Encounter for preprocedural cardiovascular examination KEANU ISLAS [facility] Start: 07-22-2023 End: 07-22-2023 ambulatory OLE YANG Not Available Start: 07-08-2023 End: 07-08-2023 ambulatory LARRY ANTON [facility] Start: 05-27-2023 End: 05-27-2023 ambulatory BRAD ANDERSON Not Available Start: 04-27-2023 End: 04-27-2023 ambulatory ELIEL NICHOLS [facility] Start: 04-27-2023 End: 04-27-2023 Office outpatient visit 15 minutes Eliel Nichols OD Work Phone: [facility] Comment on above: Esotropia of right e ye (Primary Dx); Right abducens nerve palsy; Double vision Start: 02-19-2023 End: 02-19-2023 ambulatory OLE YANG Not Available Start: 02-11-2023 End: 02-11-2023 ambulatory OLE Devlin YANG Not Available Start: 01-28-2023 End: 01-28-2023 ambulatory OLE Devlin YANG Not Available Start: 01-20-2023 End: 01-20-2023 ambulatory KEANU COYCKO [facility] Start: 12-30-2022 End: 12-30-2022 ambulatory KWAN [facility] Start: 05-14-2022 End: 05-15-2022 ambulatory PRUDENCIO MARTINEZ Facility:[facility] Start: 03-19-2022 End: 03-20-[address] BRAD ANDERSON Facility:[facility] Start: 12-23-2021 End: 12-24-2021 ambulatory SHELDON GOTTLIEB Facility:[facility] Start: 11-25-2021 End: 11-26-2021 ambulatory PRUDENCIO MARTINEZ Facility:[facility] Start: 09-04-2021 End: 09-05-2021 ambulatory SHELDON GOTTLIEB Facility:[facility] Start: 08-23-2021 Encounter for other preprocedural examination SHELDON GOTTLIEB [facility] Start: 08-23-2021 Encounter for preprocedural laboratory examination SHELDON GOTTLIEB [facility] Start: 08-22-2021 End: 08-23-2021 ambulatory KEANU ISLAS Facility:[facility] Start: 08-21-2021 End: 08-22-2021 ambulatory KEANU ISLAS Facility:[facility] Start: 08-20-2021 End: 08-21-2021 ambulatory SHELDON GOTTLIEB Facility:[facility] Start: 08-20-2021 End: 08-21-2021 Encounter for other preprocedural examination SHELDON GOTTLIEB Facility:[facility] Start: 07-30-2021 End: 07-31-2021 ambulatory SHELDON GOTTLIEB Facility:[facility] Start: 06-28-2021 End: 06-29-2021 ambulatory LARRY ANTON Facility:[facility] Start: 06-20-2021 Encounter for other specified special examinations SHELDON GOTTLIEB [facility] Start: 06-18-2021 End: 06-19-2021 ambulatory SHELDON GOTTLIEB Facility:[facility] Start: 06-18-2021 End: 06-19-2021 Encounter for other specified special examinations LARRY ANTON Facility:[facility] Start: 06-17-2021 End: 06-17-[address] MAYRA CHOI Facility:[facility] Start: 06-12-2021 End: 06-13-2021 ambulatory SHELDON GOTTLIEB Facility:[facility] Start: 06-04-2021 End: 06-04-2021 ambulatory GABRIEL GREEN Facility:[facility] Start: 12-28-2020 End: 12-29-2020 ambulatory KEANU ISLAS Facility:[facility] Start: 11-19-2020 End: 11-20-2020 ambulatory [facility] Facility:[facility] Medications Current Medications Medication Drug Class(es) Dates [...] by mouth in the morning. 0 Active Payers Date Payer Category Payer Unknown COMMERCIAL [employer]ME RCIAL - GENERIC PLAN [id number] 2022-Present [phone] [address] [address] [place] [address] [id number] 2004 Medicare MEDICARE MEDICAR E PART A & B [id number] 2004-Present [phone] [address] [place] [address] [id number] 1959 Medicare [id number] 1959 Unknown [id number] 1940 Unknown [id number] 2.16.840.1.522882.3.579.2.647 1940 Unknown [id number] 2.16.840.1.981479.3.579.2.647 1940 Unknown [id number] 2.16.840.1.575923.3.579.2.647 1940 Unknown [id number] 2.16.840.1.695732.3.579.2.593 1942 Unknown [id number] 2.16.840.1.640514.3.579.2.593 1942 Unknown [id number] 2.16.840.1.527991.3.579.2.593 1942 Unknown [id number] 2.16.840.1.392403.3.579.2.593 1942 Unknown [id number] 2.16.840.1.920230.3.579.2.593 1942 Unknown [id number] 2.16.840.1.406671.3.579.2.593 1942 Unknown [id number] 2.16.840.1.102771.3.579.2.593 1942 Unknown [id number] 2.16.840.1.368893.3.579.2.593 1942 Unknown [id number] 2.16.840.1.710487.3.579.2.593 1942 Unknown [id number] 2.16.840.1.641844.3.579.2.593 1942 Unknown [id number] 2.16.840.1.621406.3.579.2.593 1942 Unknown [id number] 2.16.840.1.239304.3.579.2.593 1942 Unknown [id number] 2.16.840.1.083606.3.579.2.593 1942 Unknown [id number] 2.16.840.1.075284.3.579.2.593 1942 Unknown [id number] 2.16.840.1.571917.3.579.2.593 1942 Unknown [id number] 2.16.840.1.454654.3.579.2.1286 1942 Unknown [id number] 2.16.840.1.345684.3.579.2.1259 1942 Unknown [id number] 2.16.840.1.559839.3.579.2.1259 1942 Unknown [id number] 2.16.840.1.611184.3.579.2.1259 1942 Unknown [id number] 2.16.840.1.944807.3.579.2.1259 1940 Unknown [id number] 2.16.840.1.709500.3.579.2.1259 Plan of Treatment Date Care Activity Detail Author Start: 04-26-2024 [facility] Start: 12-04-2023 Adult BMI Screening Adult [facility] Screen ing [facility] Start: 08-17-2007 Fall Risk Screening Fall Risk Screen ing [facility] Start: 1961 DTaP,Tdap and Td Vaccines (1 - Tdap) DTaP,Tdap and Td Vaccines (1 - Tdap) [facility] Start: 1960 Adult BMI Follow Up Plan Adult BMI Follow Up Plan [facility] Start: 1954 Depression Screening Depression Scre ening [facility] Start: 1940 Medicare Annual Wellness Visit Medicare Annual Wellness Visit [facility] Problems Active Problems Problem Classification Problem Date Documented Da te Episodic/Chronic Blindness and vision defects (3 sources) Diplopia; Translations: [Diplopia] Onset: 03-20-2022 04-27-2023 Episodic Cardiac dysrhythmias (1 source) Unspecified atrial fibrillation; Translations: [UNSPECIFIED ATRIAL FIBRILLATION] Onset: 05-16-2022 Chronic Chronic obstructive pulmonary disease and bronchiectasis (1 source) Chronic obstructive pulmonary disease with (acute) exacerbation; Translations: [COPD WITH ACUTE EXACERBATION] Onset: 06-06-2021 Chronic Conduction disorders (5 sources) Presence of cardiac pacemaker; Translations: [Presence of automatic (implantable) cardiac defibrillator] Onset: 08-26-2021 Chronic Congestive heart failure; nonhypertensive (6 sources) Acute on chronic combined systolic (congestive) and diastolic (congestive) heart failure; Translations: [Chronic systolic (congestive) heart failure] Onset: 12-23-2021 Chronic Disorders of lipid metabolism [...] [abducent] nerve palsy, right eye] 04-28-2023 Episodic Other lower respiratory disease (6 sources) Other forms of dyspnea; Translations: [OTHER FORMS OF DYSPNEA] Onset: 06-18-2021 Episodic Thyroid disorders (5 sources) Thyrotoxicosis, unspecified without thyrotoxic crisis or storm; Translations: [THYROTOXICOS UNS NO THYROTOX CRISIS] Onset: 07-01-2021 Chronic Unclassified (1 source) CONTACT W/AND (SUSP) EXPOS COVID-19; Translations: [CONTACT W/AND (SUSP) EXPOS COVID-19] Onset: 08-23-2021 Past or Other Problems Problem Classification Problem Date Documented Date Episodic/Chronic E Codes: Natural/environment (1 source) Overexertion from prolonged static or awkward postures, initial encounter; Translations: [OVEREXERT PROLNG STAT/AWK PST INIT] Onset: 06-18-2021 Episodic Other aftercare (1 source) long term care social worker (current) use of aspirin; Translations: [FPC 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 ASPIRIN] Onset: 06-18-2021 Episodic Other aftercare (1 source) Other chcf (current) drug therapy; Translations: [OTH FPC CURRENT DRUG THERAPY] Onset: 06-18-2021 Episodic Other [...] FASC LT THIGH INIT] Onset: 06-18-2021 Episodic Procedures Date Procedure Procedure Detail Performing Clinician Start: 04-27-2023 Follow-up visit Follow-up ELIEL Monroy JEVON Results Test Name Value Interpretation Reference Range Facility Office Visiton 07-08-2023 Follow-up visit [id number] Lluvia Moreno 1940 F Date Provider Department Center 07/08/2023 120-LARRY ANTON Family History Problem Relation Age of Onset Colon cancer Father Coronary artery disease Brother Hypertension Brother Kidney cancer Brother Family Status - Relation Status Age at Father Brother Level of Service:36[address] CT OFFICE/OUTPATIENT ESTABLISHED MOD MDM 30 MIN Reason for Visit and Comments: Follow-up [016477] - 6 month follow up [facility] Orders Onlyon 07-08-2023 Orders Only [id number] Lluvia Moreno 1940 F Date Provider Department Center 07/08/2023 [id number], HISTORICAL JOMAR Fuller Family History Problem Relation Age of Onset Colon cancer Father Coronary artery disease Brother Hypertension Brother Kidney cancer Brother Family Status - Relation Status Age at Father Brother Normal [facility] Office Visiton 12-30-2022 Follow-up visit [id number] Lluvia Moreno 1940 F Date Provider Department Center 12/30/2022 [id number]-KWAN RANGEL Family History Problem Relation Age of Onset Colon cancer Father Coronary artery disease Brother Hypertension Brother Kidney cancer Brother Family Status - Relation Status Age at Father Brother Level of Service:61725 CT OFFICE/OUTPATIENT ESTABLISHED MOD MDM 30-39 MIN [facility] FREE T3on 05-14-2022 FREE T3 2.54 pg/mlL Normal 2.18-3.98 [facility] Comment on above: Performed By: #### F T3, TSH #### [facility] [address] [address] [address] Hugo Yang FREE T4on 05-14-2022 Free T4 [Mass/Vol] 1.09 ng/dL Normal 0.76-1.46 [facility] Comment on above: Performed By: #### F T4 #### [facility] [address] [address] [address] Hugo Yang TSHon 05-14-2022 TSH 3.015 uIU/mL Normal 0.358-3.740 [facility] Comment on above: Performed By: #### F T3, TSH #### [facility] [address] [place] [address] HEAD WO CONon [...] by: JOEL ANDINO Date: 2022-03-19 10:33 Normal [facility] XR DEXA BONE DENSITYon 03-19 XR [...] by: JOEL ANDINO Date: 2022-03-19 11:11 Normal [facility] ECHOCARDIO M/2D COMPLETEon 1 02-22-2021 ECHOCARDIO M/2D COMPLETE Patient: LLUVIA MORENO Exam Date: 12/23/2021 : 1940 Gender:F Ordering : SHELDON GOTTLIEB [facility] Admission #: [id number] Family : DR OLE YANG M.D. Order #: [id number] CLICK HERE TO VIEW EXAM ECHOCARDIOGRAM REPORT [...] Lucas M.D. on 12/24/2021 at 15:56 Normal [facility] FREE T3on 11-25-2021 FREE T3 1.97 pg/mlL Critically low 2.18-3.98 [facility] Comment on above: Performed By: #### F T3, TSH #### [facility] [address] [address] [address] Hugo Yang FREE T4on 11-25-2021 Free T4 [Mass/Vol] 1.00 ng/dL Normal 0.76-1.46 [facility] Comment on above: Performed By: #### F T3, TSH #### [facility] [address] [address] [address] Hugo Yang LIVER PROFILEon 11-25-2021 Albumin [Mass/Vol] 3.9 g/dL Normal 3.4-5.0 [facility] Comment on above: Performed By: #### F T3, TSH #### [facility] [address] [address] [address] Hugo Yang Albumin/Globulin [Mass ratio] 1.1 {ratio} Normal [facility] Comment on above: Performed By: #### F T3, TSH #### [facility] [address] [address] [address] Hugo Yang ALP [Catalytic activity/Vol] 94 U/L Normal 46-116 [facility] Comment on above: Performed By: #### F T3, TSH #### [facility] [address] [address] [address] Hugo Yang ALT [Catalytic activity/Vol] 41 U/L Normal 14-59 [facility] Comment on above: Performed By: #### F T3, TSH #### [facility] [address] [address] [address] Hugo Yang AST [Catalytic activity/Vol] 25 U/L Normal 15-37 [facility] Comment on above: Performed By: #### F T3, TSH #### [facility] [address] [address] [address] Hugo Yang BILI, CONJUGATED 0.2 mg/dL Normal 0.0-0.2 [facility] Comment on above: Performed By: #### F T3, TSH #### [facility] [address] [address] [address] Hugo Yang Bilirubin [Mass/Vol] 0.8 mg/dL Normal 0.2-1.0 [facility] Comment on above: Performed By: #### F T3, TSH #### [facility] [address] [place] [address] Dr. Hugo Yang Globulin (S) [Mass/Vol] 3.5 g/dL Normal [facility] Comment on above: Performed By: #### F T3, TSH #### [facility] [address] [address] [address] Hugo Yang Protein [Mass/Vol] 7.4 g/dL Normal 6.4-8.2 [facility] Comment on above: Performed By: #### F T3, TSH #### [facility] [address] [address] [address] Hugo Yang TSHon 11-25-2021 TSH 2.892 uIU/mL Normal 0.358-3.740 [facility] Comment on above: Performed By: #### F T3, TSH #### [facility] [address] [address] [address] Hugo Yang US PIPER DOP LEG RTon 09-05-19 US PIPER DOP LEG RT EXAMINATION: US [...] JOEL ANDINO Date: 2021-09-04 12:18 Normal [facility] Cardiovascular Lab Reporton 08-21-2021 Cardiovascular Lab Report [facility] Patient Name: Lluvia Moreno [facility] MR #: [id number] Physician: Keanu Islas MD Department of Service Date: 08/21/2021 Medicine Birthdate: 1940 Division of Room #: CC Cardiology Adult Cardiovascular Services [facility] [address] [place] [address] Cardiovascular Laboratory Report TBIV-UPGRADE PROCEDURE NOTE DATE OF PROCEDURE: 08/21/2021 PERFORMING PHYSICIAN: Dr. Keanu Islas CONSENT: Patient LOCATION: EP Lab PROCEDURE PERFORMED: 1. Implantation of Biventricular ICD ([employer]). 2. Explantation of previously implanted pacemaker generator ([employer]). 3. RV pacing lead and extraction. [...] proceeded to place an LV lead. The Melinda sheath was advanced, and with the wire, the CS os was accessed. However there was no support and so I used an amplatz wire for support. The inner cannula was then advanced into the CS body. The inner cannula was then removed and venogram was performed. Castalia catheter was advanced and venogram was performed. This revealed a good posterolateral vein, but other than that, an anterior vein was noted, but no significant other branches were seen. After this, a 0.014 wire was passed through the Castalia-Sarah catheter and traversed into the posterolateral vein. However, the wire was short enough and we could not get a good grasp at the end. So, thereafter, the Castalia-Sarah catheter was removed and 90-degree inner cannula was used to access the vein. A longer 0.014 wire tracked into the vein. Over this, a Haitaobei Acuity straight lead was advanced and placed [...] The inner cannulas were split and the Raleigh sheath was slit and the lead secured [...] t (more content not included)... Normal [facility] Covid-19 PCR (CVDTB)on SARS-CoV-2 (COVID-19) RNA SONA+probe Ql (Unsp spec) Not detected Normal NOT DETECTED [facility] Comment on above: Result Comment: When [...] for this test is supported by the Supervisor [employer] Service's declaration that [...] used). Performed By: #### B MP #### [facility] [address] [place] [id number] [address] Hugo Yang HEMOGRAM AND PLATELon 2021 Hematocrit (Bld) [Volume fraction] 43.7 % Normal 36.0-48.0 [facility] Comment on above: Performed By: #### C BC #### [facility] [address] [place], [place] [address] Dr. Hugo Yang Hemoglobin (Bld) [Mass/Vol] 14.2 g/dL Normal 12.0-16.0 [facility] Comment on above: Performed By: #### C BC #### [facility] [address] [place] [address] Dr. Hugo Yang MCH (RBC) [Entitic mass] 31.0 pg Normal 26.7-34.0 [facility] Comment on above: Performed By: #### C BC #### [facility] [address] [place] [address] Dr. Hugo Yang MCHC (RBC) [Mass/Vol] 32.5 g/dL Normal 29.9-35.2 [facility] Comment on above: Performed By: #### C BC #### [facility] [address] [place] [address] Dr. Hugo Yang MCV (RBC) [Entitic vol] 95.4 fL Normal 81.0-99.0 [facility] Comment on above: Performed By: #### C BC #### [facility] [address] [place] [address] Dr. Hugo Yang PLT 161 103/ul Normal 150-450 [facility] Comment on above: Performed By: #### C BC #### [facility] [address] [place] [address] Dr. Hugo Yang RBC 4.58 106/ul Normal 4.20-5.40 [facility] Comment on above: Performed By: #### C BC #### [facility] [address] [place] [address] Dr. Hugo Yang WBC 6.9 103/ul Normal 4.0-11.0 [facility] Comment on above: Performed By: #### C BC #### [facility] [address] [place] [address] Dr. Hugo Yang PROF CHEM 8 (BAS METB)on Anion gap [Moles/Vol] 11.5 mmol/L Normal [facility] Comment on above: Performed By: #### B MP #### [facility] [address] [place] [address] Dr. Hugo Yang Calcium [Mass/Vol] 9.6 mg/dL Normal 8.5-10.1 [facility] Comment on above: Performed By: #### B MP #### [facility] [address] [address] [address] Hugo Yang Chloride [Moles/Vol] 104 mmol/L Normal 98-107 [facility] Comment on above: Performed By: #### B MP #### [facility] [address] [address] [address] Hugo Yang CO2 [Moles/Vol] 30.6 mmol/L Normal 21.0-32.0 [facility] Comment on above: Performed By: #### B MP #### [facility] [address] [address] [address] Hugo Yang Creatinine [Mass/Vol] 1.24 mg/dL Critically high 0.55-1.02 [facility] Comment on above: Performed By: #### B MP #### [facility] [address] [address] [address] Hugo Yang EGFR-AF GREEK 51 mL/min/1.73m2 Critically low >=60 [facility] Comment on above: Performed By: #### B MP #### [facility] [address] [address] [address] Hugo Yang EGFR-NON AF GREEK 42 mL/min/1.73m2 Critically low >=60 [facility] Comment on above: Performed By: #### B MP #### [facility] [address] [address] [address] Hugo Yang Glucose [Mass/Vol] 111 mg/dL Critically high 74-106 [facility] Comment on above: Performed By: #### B MP #### [facility] [address] [address] [address] Hugo Yang Potassium [Moles/Vol] 5.1 mmol/L Normal 3.5-5.1 [facility] Comment on above: Performed By: #### B MP #### [facility] [address] [address] [address] Hugo Yang Sodium [Moles/Vol] 141 mmol/L Normal 136-145 [facility] Comment on above: Performed By: #### B MP #### [facility] [address] [place] [address] Dr. Hugo Yang Urea nitrogen [Mass/Vol] 31.0 mg/dL Critically high 7.0-18.0 [facility] Comment on above: Performed By: #### B MP #### [facility] [address] [place] [address] Dr. Hugo Yang Urea nitrogen/Creatinin e [Mass ratio] 25.0 mg/mg Normal [facility] Comment on above: Performed By: #### B MP #### [facility] [address] [place] [address] Dr. Hugo Yang BNPon 07-30-2021 Natriuretic peptide B (Bld) [Mass/Vol] 1994.0 pg/mL Critically high <=1,800.0 [facility] Comment on above: Performed By: #### C BC #### [facility] [address] [place] [address] Dr. Hugo Yang PROF CHEM 8 (BAS METB)on Anion gap [Moles/Vol] 11.3 mmol/L Normal [facility] Comment on above: Performed By: #### C BC #### [facility] [address] [place] [address] Dr. Hugo Yang Calcium [Mass/Vol] 9.7 mg/dL Normal 8.5-10.1 [facility] Comment on above: Performed By: #### C BC #### [facility] [address] [place] [address] Dr. Hugo Yang Chloride [Moles/Vol] 104 mmol/L Normal 98-107 [facility] Comment on above: Performed By: #### C BC #### [facility] [address] [place] [address] Dr. Hugo Yang CO2 [Moles/Vol] 29.6 mmol/L Normal 21.0-32.0 [facility] Comment on above: Performed By: #### C BC #### [facility] [address] [place] [address] Dr. Hugo Yang Creatinine [Mass/Vol] 1.28 mg/dL Critically high 0.55-1.02 [facility] Comment on above: Performed By: #### C BC #### [facility] [address] [place] [address] Dr. Hugo Yang EGFR-AF GREEK 49 mL/min/1.73m2 Critically low >=60 [facility] Comment on above: Performed By: #### C BC #### [facility] [address] [address] [address] Hugo Yang EGFR-NON AF GREEK 40 mL/min/1.73m2 Critically low >=60 [facility] Comment on above: Performed By: #### C BC #### [facility] [address] [place] [address] Dr. Hugo Yang Glucose [Mass/Vol] 119 mg/dL Critically high 74-106 [facility] Comment on above: Performed By: #### C BC #### [facility] [address] [place] [address] Dr. Hugo Yang Potassium [Moles/Vol] 4.9 mmol/L Normal 3.5-5.1 [facility] Comment on above: Performed By: #### C BC #### [facility] [address] [place] [address] Dr. Hugo Yang Sodium [Moles/Vol] 140 mmol/L Normal 136-145 [facility] Comment on above: Performed By: #### C BC #### [facility] [address] [address] [address] Hugo Yang Urea nitrogen [Mass/Vol] 30.0 mg/dL Critically high 7.0-18.0 [facility] Comment on above: Performed By: #### C BC #### [facility] [address] [address] [address] Hugo Yang Urea nitrogen/Creatinin e [Mass ratio] 23.4 mg/mg Normal [facility] Comment on above: Performed By: #### C BC #### [facility] [address] [place] [address] Dr. Hugo aYng FREE T3on 06-28-2021 FREE T3 2.64 pg/mlL Normal 2.18-3.98 [facility] Comment on above: Performed By: #### F T3, TSH #### [facility] [address] [place] [address] Dr. Hugo Yang FREE T4on 06-28-2021 Free T4 [Mass/Vol] 1.19 ng/dL Normal 0.76-1.46 [facility] Comment on above: Performed By: #### B MP #### [facility] [address] [place] [address] Dr. Hugo Yang LIVER PROFILEon 06-28-2021 Albumin [Mass/Vol] 3.8 g/dL Normal 3.4-5.0 [facility] Comment on above: Performed By: #### F T3, TSH #### [facility] [address] [place] [address] Dr. Hugo Yang Albumin/Globulin [Mass ratio] 1.2 {ratio} Normal [facility] Comment on above: Performed By: #### F T3, TSH #### [facility] [address] [place] [address] Dr. Hugo Yang ALP [Catalytic activity/Vol] 88 U/L Normal 46-116 [facility] Comment on above: Performed By: #### F T3, TSH #### [facility] [address] [place] [address] Dr. Hugo Yang ALT [Catalytic activity/Vol] 54 U/L Normal 14-59 [facility] Comment on above: Performed By: #### F T3, TSH #### [facility] [address] [place] [address] Dr. Hugo Yang AST [Catalytic activity/Vol] 36 U/L Normal 15-37 [facility] Comment on above: Performed By: #### F T3, TSH #### [facility] [address] [place] [address] Dr. Hugo Yang BILI, CONJUGATED 0.3 mg/dL Critically high 0.0-0.2 [facility] Comment on above: Performed By: #### F T3, TSH #### [facility] [address] [place] [address] Dr. Hugo Yang Bilirubin [Mass/Vol] 0.9 mg/dL Normal 0.2-1.0 [facility] Comment on above: Performed By: #### F T3, TSH #### [facility] [address] [place] [address] Dr. Hugo Yang Globulin (S) [Mass/Vol] 3.3 g/dL Normal [facility] Comment on above: Performed By: #### F T3, TSH #### [facility] [address] [place] [address] Dr. Hugo Yang Protein [Mass/Vol] 7.1 g/dL Normal 6.4-8.2 [facility] Comment on above: Performed By: #### F T3, TSH #### [facility] [address] [place] [address] Dr. Hugo Yang PROF CHEM 8 (BAS METB)on Anion gap [Moles/Vol] 13.6 mmol/L Normal [facility] Comment on above: Performed By: #### B MP #### [facility] [address] [place] [address] Dr. Hugo Yang Calcium [Mass/Vol] 9.5 mg/dL Normal 8.5-10.1 [facility] Comment on above: Performed By: #### B MP #### [facility] [address] [place] [address] Dr. Hugo Yang Chloride [Moles/Vol] 105 mmol/L Normal 98-107 [facility] Comment on above: Performed By: #### B MP #### [facility] [address] [place] [address] Dr. Hugo Yang CO2 [Moles/Vol] 28.5 mmol/L Normal 21.0-32.0 [facility] Comment on above: Performed By: #### B MP #### [facility] [address] [place] [address] Dr. Hugo Yang Creatinine [Mass/Vol] 1.05 mg/dL Critically high 0.55-1.02 [facility] Comment on above: Performed By: #### B MP #### [facility] [address] [address] [address] Hugo Yang EGFR-AF GREEK >60 Normal >=60 [facility] Comment on above: Performed By: #### B MP #### [facility] [address] [address] [address] Hugo Yang EGFR-NON AF GREEK 51 mL/min/1.73m2 Critically low >=60 [facility] Comment on above: Performed By: #### B MP #### [facility] [address] [address] [address] Hugo Yang Glucose [Mass/Vol] 113 mg/dL Critically high 74-106 [facility] Comment on above: Performed By: #### B MP #### [facility] [address] [address] [address] Hugo Yang Potassium [Moles/Vol] 5.1 mmol/L Normal 3.5-5.1 [facility] Comment on above: Performed By: #### B MP #### [facility] [address] [address] [address] Hugo Yang Sodium [Moles/Vol] 142 mmol/L Normal 136-145 [facility] Comment on above: Performed By: #### B MP #### [facility] [address] [address] [address] Hugo Yang Urea nitrogen [Mass/Vol] 29.0 mg/dL Critically high 7.0-18.0 [facility] Comment on above: Performed By: #### B MP #### [facility] [address] [address] [address] Hugo Yang Urea nitrogen/Creatinin e [Mass ratio] 27.6 mg/mg Normal [facility] Comment on above: Performed By: #### B MP #### [facility] [address] [address] [address] Hugo Yang TSHon 06-28-2021 TSH 3.067 uIU/mL Normal 0.358-3.740 [facility] Comment on above: Performed By: #### F T3, TSH #### [facility] [address] [place], [place] [address] Dr. Hugo Yang TSH RANGE SEE BELOW Normal [facility] Comment on above: Result Comment: <0.3 4 UIU/ml HYPERTHYROID 0.34-5.60 UIU/ml EUTHYROID >5.60 UIU/ml HYPOTHYROID Performed By: #### F T3, TSH #### [facility] [address] [address] [address] Hugo Yang Cardiovascular Lab Reporton 06-21-2021 Cardiovascular Lab Report [facility] MR #: [id number] Physician: Elizabeth Tejeda, Department of M.D. Medicine Service Date: 06/20/2021 Division of Birthdate: 1940 Cardiology Room #: CC [facility] Cardiovascular Services [facility] [address] [place] [address] Cardiovascular Laboratory Report FINAL IMPRESSIONS: 1. 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 2. Otherwise nonobstructive coronary arteries angiographically. 3. Moderately reduced global left ventricular systolic function by noninvasive imaging. 4. Normal right-sided heart pressures and wedge pressure. 5. Qfvu-eo-myryhefg systemic hypertension. 6. Mildly reduced cardiac output/cardiac [...] bilateral selective coronary angiography, placement of a 6-Mexican MynxGrip closure device. METHODS: After risks, benefits, [...] femoral vein and artery was obtained. A 6-Mexican 11 cm sheath was placed in each. [...] the procedure. All catheters were removed. A 6-Mexican MynxGrip closure device was deployed per protocol [...] E (more content not included)... Normal [facility] BNPon 06-18-2021 Natriuretic peptide B (Bld) [Mass/Vol] 3442.0 pg/mL Critically high <=1,800.0 [facility] Comment on above: Result Comment: TEST REPEATED CRITICAL VALUE VERIFIED Performed By: #### L IPID, BNP, CMP #### [facility] [address] [place] [address] Dr. Hugo Yang CBC AUTO DIFFon 06-18-2021 BASO # 0.1 103/ul Normal 0.0-0.1 [facility] Comment on above: Performed By: #### C BC #### [facility] [address] [place] [address] Dr. Hugo Yang Basophils/100 WBC (Bld) 0.5 % Normal 0.2-2.0 [facility] Comment on above: Performed By: #### C BC #### [facility] [address] [place] [address] Dr. Hugo Yang EO # 0.3 103/ul Normal 0.0-0.7 [facility] Comment on above: Performed By: #### C BC #### [facility] [address] [place] [address] Dr. Hugo Yang Eosinophils/100 WBC (Bld) 2.3 % Normal 0.9-7.0 [facility] Comment on above: Performed By: #### C BC #### [facility] [address] [place] [address] Dr. Hugo Yang Erythrocyte distribution width (RBC) [Ratio] 14.5 % Normal 11.0-15.0 [facility] Comment on above: Performed By: #### C BC #### [facility] [address] [place] [address] Dr. Hugo Yang Hematocrit (Bld) [Volume fraction] 42.3 % Normal 36.0-48.0 [facility] Comment on above: Performed By: #### C BC #### [facility] [address] [place] [address] Dr. Hugo Yang Hemoglobin (Bld) [Mass/Vol] 13.5 g/dL Normal 12.0-16.0 [facility] Comment on above: Performed By: #### C BC #### [facility] [address] [place] [address] Dr. Hugo Yang IG # 0.05 10e3/ul Critically high 0.00-0.03 [facility] Comment on above: Performed By: #### C BC #### [facility] [address] [place] [address] Dr. Hugo Yang IG % 0.4 % Normal 0.0-0.5 [facility] Comment on above: Performed By: #### C BC #### [facility] [address] [place] [address] Dr. Hugo Yang LYMPH # 1.5 103/ul Normal 1.2-3.8 [facility] Comment on above: Performed By: #### C BC #### [facility] [address] [place] [address] Dr. Hugo Yang Lymphocytes/100 WBC (Bld) 12.9 % Critically low 20.5-60.0 [facility] Comment on above: Performed By: #### C BC #### [facility] [address] [place] [address] Dr. Hugo Yang MANUAL DIFF REQ NO Normal [facility] Comment on above: Performed By: #### C BC #### [facility] [address] [place] [address] Dr. Hugo Yang MCH (RBC) [Entitic mass] 30.4 pg Normal 26.7-34.0 [facility] Comment on above: Performed By: #### C BC #### [facility] [address] [place] [address] Dr. Hugo Yang MCHC (RBC) [Mass/Vol] 31.9 g/dL Normal 29.9-35.2 [facility] Comment on above: Performed By: #### C BC #### [facility] [address] [address] [address] Hugo Yang MCV (RBC) [Entitic vol] 95.3 fL Normal 81.0-99.0 [facility] Comment on above: Performed By: #### C BC #### [facility] [address] [place] [address] Dr. Hugo Yang MONO # 0.7 103/ul Normal 0.3-0.8 [facility] Comment on above: Performed By: #### C BC #### [facility] [address] [place] [address] Dr. Hugo Yang Monocytes/100 WBC (Bld) 6.2 % Normal 1.7-12.0 [facility] Comment on above: Performed By: #### C BC #### [facility] [address] [place] [address] Dr. Hugo Yang NEUT # 8.8 103/ul Critically high 1.4-6.5 [facility] Comment on above: Performed By: #### C BC #### [facility] [address] [place] [address] Dr. Hugo Yang Neutrophils/100 WBC (Bld) 77.7 % Critically high 43.0-75.0 [facility] Comment on above: Performed By: #### C BC #### [facility] [address] [place] [address] Dr. Hugo Yang Platelet mean volume (Bld) [Entitic vol] 10.4 fL Normal 9.5-13.5 [facility] Comment on above: Performed By: #### C BC #### [facility] [address] [place] [address] Dr. Hugo Yang PLT 199 103/ul Normal 150-450 [facility] Comment on above: Performed By: #### C BC #### [facility] [address] [address] [address] Hugo Yang RBC 4.44 106/ul Normal 4.20-5.40 [facility] Comment on above: Performed By: #### C BC #### [facility] [address] [address] [address] Hugo Yang WBC 11.3 103/ul Critically high 4.0-11.0 [facility] Comment on above: Performed By: #### C BC #### [facility] [address] [address] [address] Hugo Yang Covid-19 PCR ([facility])on SARS-CoV-2 (COVID-19) RNA SONA+probe Ql (Unsp spec) Not detected Normal NOT DETECTED [facility] Comment on above: Result Comment: This test is not yet approved or cleared by the [place] FDA. When there are no FDA-approved or cleared tests available, and other criteria are met, FDA can make tests available under an emergency access mechanism called an Emergency Use Authorization (EUA). The EUA for this test is supported by the [place] of Health and Human Service's (HHS's) declaration [...] Performed By: #### F T3, TSH #### [facility] [address] [address] [address] Hugo Yang LIPID PROFILEon 06-18-2021 CHOL-HDL RATIO NORM SEE BELOW Normal [facility] Comment on above: Result Comment: 3.3 - 4.4 LOW RISK 4.4 - 7.1 AVERAGE RISK 7.1 - 11.0 MODERATE RISK >11.0 HIGH RISK Performed By: #### L IPID, BNP, CMP #### [facility] [address] [address] [address] Hugo Yang Cholesterol [Mass/Vol] 127 mg/dL Normal <=200 [facility] Comment on above: Performed By: #### L IPID, BNP, CMP #### [facility] [address] [address] [address] Hugo Yang Cholesterol in HDL [Mass/Vol] 60 mg/dL Normal 40-60 [facility] Comment on above: Performed By: #### L IPID, BNP, CMP #### [facility] [address] [place] [address] Dr. Hugo Yang Cholesterol in LDL [Mass/Vol] 47.4 mg/dL Normal [facility] Comment on above: Performed By: #### L IPID, BNP, CMP #### [facility] [address] [place] [address] Dr. Hugo Yang Cholesterol.total/ Cholesterol in HDL [Mass ratio] 2.1 {ratio} Normal [facility] Comment on above: Performed By: #### L IPID, BNP, CMP #### [facility] [address] [place] [address] Dr. Hugo Yang HDL NORMAL > or = 60 mg/dl - LO W CARDIOVASCULAR RISK <40 mg/dl - HIGH CARDIOVASCULAR RISK Normal [facility] Comment on above: Performed By: #### L IPID, BNP, CMP #### [facility] [address] [place] [address] Dr. Hugo Yang LDL CALC NORMAL SEE BELOW Normal [facility] Comment on above: Result Comment: <100 mg/dl OPTIMAL 100 - 129 mg/dl NEAR OR ABOVE OPTIMAL 130 - 159 mg/dl BORDERLINE HIGH 160 - 189 mg/dl HIGH >190 mg/dl VERY HIGH Performed By: #### L IPID, BNP, CMP #### [facility] [address] [place] [address] Dr. Hugo Yang Triglyceride [Mass/Vol] 98 mg/dL Normal <=150 [facility] Comment on above: Performed By: #### L IPID, BNP, CMP #### [facility] [address] [place] [address] Dr. Hugo Yang VLDL CALC 19.6 mg/dL Normal [facility] Comment on above: Performed By: #### L IPID, BNP, CMP #### [facility] [address] [address] [address] Hugo Yang PROF 14(COMP METB)on 022 Albumin [Mass/Vol] 4.0 g/dL Normal 3.4-5.0 [facility] Comment on above: Performed By: #### L IPID, BNP, CMP #### [facility] [address] [place] [address] Dr. Hugo Yang Albumin/Globulin [Mass ratio] 1.3 {ratio} Normal [facility] Comment on above: Performed By: #### L IPID, BNP, CMP #### [facility] [address] [place] [address] Dr. Hugo Yang ALP [Catalytic activity/Vol] 82 U/L Normal 46-116 [facility] Comment on above: Performed By: #### L IPID, BNP, CMP #### [facility] [address] [place] [address] Dr. Hugo Yang ALT [Catalytic activity/Vol] 52 U/L Normal 14-59 [facility] Comment on above: Performed By: #### L IPID, BNP, CMP #### [facility] [address] [place] [address] Dr. Hugo Yang Anion gap [Moles/Vol] 12.9 mmol/L Normal [facility] Comment on above: Performed By: #### L IPID, BNP, CMP #### [facility] [address] [place] [address] Dr. Hugo Yang AST [Catalytic activity/Vol] 40 U/L Critically high 15-37 [facility] Comment on above: Performed By: #### L IPID, BNP, CMP #### [facility] [address] [place] [address] Dr. Hugo Yang Bilirubin [Mass/Vol] 1.7 mg/dL Critically high 0.2-1.0 [facility] Comment on above: Performed By: #### L IPID, BNP, CMP #### [facility] [address] [address] [address] Hugo Yang Calcium [Mass/Vol] 9.2 mg/dL Normal 8.5-10.1 [facility] Comment on above: Performed By: #### L IPID, BNP, CMP #### [facility] [address] [address] [address] Hugo Yang Chloride [Moles/Vol] 103 mmol/L Normal 98-107 [facility] Comment on above: Performed By: #### L IPID, BNP, CMP #### [facility] [address] [address] [address] Hugo Yang CO2 [Moles/Vol] 28.9 mmol/L Normal 21.0-32.0 [facility] Comment on above: Performed By: #### L IPID, BNP, CMP #### [facility] [address] [address] [address] Hugo Yang Creatinine [Mass/Vol] 1.12 mg/dL Critically high 0.55-1.02 [facility] Comment on above: Performed By: #### L IPID, BNP, CMP #### [facility] [address] [address] [address] Hugo Yang EGFR-AF GREEK 57 mL/min/1.73m2 Critically low >=60 [facility] Comment on above: Performed By: #### L IPID, BNP, CMP #### [facility] [address] [address] [address] Hugo Yang EGFR-NON AF GREEK 47 mL/min/1.73m2 Critically low >=60 [facility] Comment on above: Performed By: #### L IPID, BNP, CMP #### [facility] [address] [address] [address] Hugo Yang Globulin (S) [Mass/Vol] 3.1 g/dL Normal [facility] Comment on above: Performed By: #### L IPID, BNP, CMP #### [facility] [address] [address] [address] Hugo Yang Glucose [Mass/Vol] 128 mg/dL Critically high 74-106 [facility] Comment on above: Performed By: #### L IPID, BNP, CMP #### [facility] [address] [address] [address] Hugo Yang Potassium [Moles/Vol] 4.8 mmol/L Normal 3.5-5.1 [facility] Comment on above: Performed By: #### L IPID, BNP, CMP #### [facility] [address] [place] [address] Dr. Hugo Yang Protein [Mass/Vol] 7.1 g/dL Normal 6.1-8.2 [facility] Comment on above: Performed By: #### L IPID, BNP, CMP #### [facility] [address] [address] [address] Hugo Yang Sodium [Moles/Vol] 140 mmol/L Normal 136-145 [facility] Comment on above: Performed By: #### L IPID, BNP, CMP #### [facility] [address] [address] [address] Hugo Yang Urea nitrogen [Mass/Vol] 23.0 mg/dL Critically high 7.0-18.0 [facility] Comment on above: Performed By: #### L IPID, BNP, CMP #### [facility] [address] [place] [address] Dr. Hugo Yang Urea nitrogen/Creatinin e [Mass ratio] 20.5 mg/mg Normal [facility] Comment on above: Performed By: #### L IPID, BNP, CMP #### [facility] [address] [place] [address] Dr. Hugo Yang ECHOCARDIO M/2D COMPLETEon 0 06-12-2021 ECHOCARDIO M/2D COMPLETE Patient: LLUVIA MORENO Exam Date: 06/12/2021 : 1940 Gender:F Ordering : SHELDON GOTTLIEB Admission #: [id number] Family : OLE EMILY Calderon Order #: [id number] CLICK HERE TO VIEW EXAM ECHOCARDIOGRAM REPORT [...] Area(A4C): 31.00 cm2 Left Atrium Systolic Volume(A2C): 403687 mm3 Left Atrium Systolic Volume(A4C): 314245 mm3 Mitral Valve MV E to A [...] M.D. on 06/12/2021 at 16:27 Normal [facility] CBC AUTO DIFFon 06-04-2021 BASO # 0.0 103/ul Normal 0.0-0.1 [facility] Comment on above: Performed By: #### C BC #### [facility] [address] [place] [address] Dr. Hugo Yang Basophils/100 WBC (Bld) 0.6 % Normal 0.2-2.0 [facility] Comment on above: Performed By: #### C BC #### [facility] [address] [place] [address] Dr. Hugo Yang EO # 0.2 103/ul Normal 0.0-0.7 [facility] Comment on above: Performed By: #### C BC #### [facility] [address] [place] [address] Dr. Hugo Yang Eosinophils/100 WBC (Bld) 3.0 % Normal 0.9-7.0 [facility] Comment on above: Performed By: #### C BC #### [facility] [address] [place] [address] Dr. Hugo Yang Erythrocyte distribution width (RBC) [Ratio] 13.7 % Normal 11.0-15.0 [facility] Comment on above: Performed By: #### C BC #### [facility] [address] [place] [address] Dr. Hugo Yang Hematocrit (Bld) [Volume fraction] 42.1 % Normal 36.0-48.0 [facility] Comment on above: Performed By: #### C BC #### [facility] [address] [place] [address] Dr. Hugo Yang Hemoglobin (Bld) [Mass/Vol] 13.3 g/dL Normal 12.0-16.0 [facility] Comment on above: Performed By: #### C BC #### [facility] [address] [place] [address] Dr. Hugo Yang IG # 0.02 10e3/ul Normal 0.00-0.03 [facility] Comment on above: Performed By: #### C BC #### [facility] [address] [place] [address] Dr. Hugo Yang IG % 0.3 % Normal 0.0-0.5 [facility] Comment on above: Performed By: #### C BC #### [facility] [address] [place] [address] Dr. Hugo Yang LYMPH # 1.9 103/ul Normal 1.2-3.8 [facility] Comment on above: Performed By: #### C BC #### [facility] [address] [place] [address] Dr. Hugo Yang Lymphocytes/100 WBC (Bld) 29.2 % Normal 20.5-60.0 [facility] Comment on above: Performed By: #### C BC #### [facility] [address] [place] [address] Dr. Hugo Yang MANUAL DIFF REQ NO Normal [facility] Comment on above: Performed By: #### C BC #### [facility] [address] [place] [address] Dr. Hugo Yang MCH (RBC) [Entitic mass] 30.4 pg Normal 26.7-34.0 [facility] Comment on above: Performed By: #### C BC #### [facility] [address] [place] [address] Dr. Hugo Yang MCHC (RBC) [Mass/Vol] 31.6 g/dL Normal 29.9-35.2 [facility] Comment on above: Performed By: #### C BC #### [facility] [address] [place] [id number] Dr. Hugo Yang MCV (RBC) [Entitic vol] 96.3 fL Normal 81.0-99.0 [facility] Comment on above: Performed By: #### C BC #### [facility] [address] [place] [address] Dr. Hugo Yang MONO # 0.6 103/ul Normal 0.3-0.8 [facility] Comment on above: Performed By: #### C BC #### [facility] [address] [place] [address] Dr. Hugo Yang Monocytes/100 WBC (Bld) 8.5 % Normal 1.7-12.0 [facility] Comment on above: Performed By: #### C BC #### [facility] [address] [place] [address] Dr. Hugo Yang NEUT # 3.8 103/ul Normal 1.4-6.5 [facility] Comment on above: Performed By: #### C BC #### [facility] [address] [place] [address] Dr. Hugo Yang Neutrophils/100 WBC (Bld) 58.4 % Normal 43.0-75.0 [facility] Comment on above: Performed By: #### C BC #### [facility] [address] [place] [address] Dr. Hugo Yang Platelet mean volume (Bld) [Entitic vol] 10.9 fL Normal 9.5-13.5 [facility] Comment on above: Performed By: #### C BC #### [facility] [address] [place] [address] Dr. Hugo Yang PLT 163 103/ul Normal 150-450 [facility] Comment on above: Performed By: #### C BC #### [facility] [address] [place] [address] Dr. Hugo Yang RBC 4.37 106/ul Normal 4.20-5.40 [facility] Comment on above: Performed By: #### C BC #### [facility] [address] [place] [address] Dr. Hugo Yang WBC 6.6 103/ul Normal 4.0-11.0 [facility] Comment on above: Performed By: #### C BC #### [facility] [address] [place] [address] Dr. Hugo Yang PROF CHEM 8 (BAS METB)on Anion gap [Moles/Vol] 13.9 mmol/L Normal [facility] Comment on above: Performed By: #### F T3, TSH #### [facility] [address] [place] [address] Dr. Hugo Yang Calcium [Mass/Vol] 9.5 mg/dL Normal 8.5-10.1 [facility] Comment on above: Performed By: #### F T3, TSH #### [facility] [address] [place] [address] Dr. Hugo Yang Chloride [Moles/Vol] 105 mmol/L Normal 98-107 [facility] Comment on above: Performed By: #### F T3, TSH #### [facility] [address] [place] [address] Dr. Hugo Yang CO2 [Moles/Vol] 27.7 mmol/L Normal 22.0-30.0 [facility] Comment on above: Performed By: #### F T3, TSH #### [facility] [address] [place] [address] Dr. Hugo Yang Creatinine [Mass/Vol] 1.19 mg/dL Critically high 0.52-1.04 [facility] Comment on above: Performed By: #### F T3, TSH #### [facility] [address] [place] [address] [address] Hugo Yang EGFR-AF GREEK 53 mL/min/1.73m2 Critically low >=60 [facility] Comment on above: Performed By: #### F T3, TSH #### [facility] [address] [address] [address] Hugo Yang EGFR-NON AF GREEK 44 mL/min/1.73m2 Critically low >=60 [facility] Comment on above: Performed By: #### F T3, TSH #### [facility] [address] [address] [address] Hugo Yang Glucose [Mass/Vol] 112 mg/dL Critically high 74-106 T [facility] Comment on above: Performed By: #### F T3, TSH #### [facility] [address] [address] [address] Hugo Yang Potassium [Moles/Vol] 4.6 mmol/L Normal 3.4-5.0 [facility] Comment on above: Performed By: #### F T3, TSH #### [facility] [address] [address] [address] Hugo Yang Sodium [Moles/Vol] 142 mmol/L Normal 137-145 [facility] Comment on above: Performed By: #### F T3, TSH #### [facility] [address] [address] [address] Hugo Yang Urea nitrogen [Mass/Vol] 28.0 mg/dL Critically high 7.0-18.0 [facility] Comment on above: Performed By: #### F T3, TSH #### [facility] [address] [address] [address] Hugo Yang Urea nitrogen/Creatinin e [Mass ratio] 23.5 mg/mg Normal [facility] Comment on above: Performed By: #### F T3, TSH #### [facility] [address] [place], [place] [address] Dr. Hugo Yang TROPONIN, HIGH SENSITIVITYon 06-04-2021 HSTROP 27.1 pg/mL Normal 4.0-35.5 [facility] Comment on above: Result Comment: CUT- OFF POINTS HAVE BEEN ESTABLISHED BASED ON THE FOURTH UNIVERSAL DEFINITIONS OF MYOCARDIAL INFARCTION. THE UPPER REFERENCE LIMIT (URL) OF TROPONIN, DEFINED THE 99TH PERCENTILE OF cTnI DISTRIBUTION IN A REFERENCE POPULATION, HAS BEEN CONFIRMED THE DECISION THRESHOLD FOR MA DIAGNOSIS. Performed By: #### F T3, TSH #### [facility] [address] [place], [place] [address] Dr. Hugo Yang XR CHEST 1 Von [...] JOEL ANDINO Date: 2021-06-04 11:09 Normal [facility] Cardiovascular Lab Reporton 12-28-2020 Cardiovascular Lab Report [facility] MR #: [id number] Physician: Keanu Islas MD Department of Service Date: 12/28/2020 Medicine Birthdate: 1940 Division of Room #: [facility] Adult Cardiovascular Services [place] [address] Cardiovascular Laboratory Report AV NODE ABLATION PROCEDURE [...] prepped and draped. Under ultrasound guidance, an 8-Mexican venous access was procured, and a short [...] Islas MD Date Trans: 12/28/2020 04:43 P/mmo [id number] cc: Ole Yang M.D. [address] [facility] Cardiovascular Lab Reporton 11-19-2020 Cardiovascular Lab Report [facility] Patient Name: [facility] MR #: [id number] Physician: Keanu Islas MD Department of Service Date: 11/19/2020 Medicine Birthdate: 1940 Division of Room #: [facility]iology Adult Cardiovascular Services [address] [place] [address] Cardiovascular Laboratory Report PACEMAKER IMPLANT PROCEDURE NOTE DATE OF PROCEDURE: 11/19/20 PERFORMING PHYSICIAN: Dr. Keanu Islas CONSENT: Patient LOCATION: EP Lab PROCEDURE PERFORMED: 1. Implantation of pacemaker ([employer]) 2. Ultrasound guided venous access INDICATIONS: [...] using modified seldinger technique using a 5 Mexican micro-puncture needle on one occasion and 0.35 wire was placed. Local infiltration of 1% Lidocaine was performed, and an incision was created in the left upper chest. Dissection was then performed using cautery down to the fascial plane above the muscle. A small pocket was created for the device. 8 Mexican Safesheath was placed over the wire. Then a His sheath was advanced over a glide wire into the right ventricle. The wire and dilator was then removed. An active fixation [employer] pacing lead was then delivered through the His sheath to the right ventricle. I identified an area where pacing revealed a QRS of 120ms in unipolar configuration. After confirmation of lead position on orthogonal views ([place] and [place]) to confirm septal position, the screw was [...] immediate procedural complications were noted. Device info: [employer] Accolade MRI EL SR IS1 Model# L310 Serial# [id number] RV lead: Model# [id number] [id number] (59cms) Serial# [id number] Sensin.3mV Threshold: 0.6V@0.4ms Impedance: 655 Ohms POST [...] 11/19/2020 (more content not included)... Normal [facility] Social History Date Type Detail Facility Start: 04-28-2023 History of Social function [facility] Start: 04-28-2023 Tobacco use panel [facility] Start: 08-13-2022 Tobacco smoking stat us NVIS Never smoked tobacco [facility] Start: 08-13-2022 Tobacco use and exposure Smokeless tobacco non-user [facility] Start: 1940 Sex Assigned At Not on file P [facility] Clinical Notes 06-17-2021 to 07-08-2023 Eliel Nichols, OD - 04/27/2023 11:00 AM EDT Note Date & Type Note Facility 07-08-2023 Note Please let Lluvia know Chest x ray looks good- no fluid or pneumonia Labs look ok- Please forward all these results to her PCP [facility] 07-08-2023 Note If cardiac studies a re without any acute concerns she may need to F/U with pulmonary for evaluation of CLAIRE [facility] 07-08-2023 Note Device interrogation s reviewed Device check q 6 months [facility] 07-08-2023 Note Lexiscan stress test to assess cardiac perfusion for any significant defect that would warrant a cardiac cath with possible PCI for concerning stenosis Continue GDMT- ASA, lipitor toprol [facility] 07-08-2023 Note HTN is well controll ed 130/84- she does admit at home b/p is lower 100-120/70-80 denied any lightheadedness/dizziness or syncope. Continue lisinopril, toprol and aldactone [facility] 07-08-2023 Note Repeat echocardiogra m to assess MR in light of worsening CLAIRE [facility] 07-08-2023 Note Remains on eliquis w ithout any bleeding tendencies S/P AV node ablation and HANDCREW FOREMAN-D is 98% Bi-V pacing per device interrogation [facility] 07-08-2023 Note [facility] III, currently appears euvolemic and weight is down 4 pounds from last visit in December. Continue GDMT- ASA, lipitor, lisinopril, toprol and aldactone with Bumex 1 mg as needed. Monitor daily weights, I&O, fluid restriction 1.5-2L/day, renal function and electrolytes Will order labs today- CBC, CMP, BNP to check renal fx, liver fx and electrolytes, and heart failure marker. CXR today for noted chest cold and SOB Will order Echocardiogram to assess cardiac function and MV regurg; also lexiscan to assess cardiac perfusion and for any perfusion defect that would correlate with noted in stent stenosis on last heart cath to determine if cardiac cath is needed. RTC after testing [facility] 07-08-2023 Note [facility] CARDIOLOGY PROGR ESS NOTE HPI: Lluvia Moreno is a 82 y.o. female here for routine F/U HPI 82 yo female presents today with daughter for f/U for known Chronic HFrEF- 30-45% s/p HANDCREW FOREMAN, Afib s/p AV node ablation, CAD s/p PCI to LAD, HTN, HPL, CVA. Currently she C/O fatigue and needs to nap most days, hair loss, cold intolerance and wearing sweat shirt today despite it being 76-80 degrees outside, hair loss. Currently denied chest pain. Admits worsening SOB with exertion and ADLs- states she is not able to do/walk as far as she could just a couple months ago. Denied weight gain, orthopnea or worsening leg swelling/fluid retention. States she feels like she has a Chest cold coming on. Denied fever, chills, but admits non productive cough. She is taking bumex as needed for fluid retention. Weight is currently down 4 pounds from last visit in December. Review of Systems Constitutional: Positive for fatigue. Respiratory: Positive for cough and shortness of breath. Cardiovascular: Positive for leg swelling. Negative for chest pain. Intermittent leg swelling Endocrine: Positive for cold intolerance. Neurological: Negative. Hematological: Does not bruise/bleed easily. All other systems reviewed and are negative. Previous HPI per Leandra Rangel NP 12/30/22: Has been doing well She is on BB and device shows NSVT x1 She has some CLAIRE and LE edema which is chronic. It is stable today , takes bumex as needed, Device check 07/22/2022: HANDCREW FOREMAN-D pacing 92%, normal device function stable lead [...] is having her device checked in July. -------- 12/31/[address] islas HPI: Lluvia [...] and so the device was upgraded to HANDCREW FOREMAN-D and old RV pacing lead was extracted. Segment of this elevated echocardiogram was performed which showed improvement of EF from 30 to 45%. Device check performed on July 06, 2019 Maritza shows and pacemaker programmed at 70 bpm. Thresholds were noted to be 0.6 and 1.1V respectively. Patient underwent BiV HANDCREW FOREMAN-D upgrade on 08/21/2021 1. Successful BiV-ICD implantation [...] vein was noted to have some stenosis. Visit V (more content not included)... [facility] 04-27-2023 History of Present illness Narrative Lluvia Moreno 1940 Diagnosis: 1. Esotropia of right eye [...] likely be too thick. Recommend continuing with Fresnel as she is doing very well with it and doesn't mind it being on her glasses. 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 Will send a [...] (TOPROL XL) 50 mg 24 hr tablet multivitamin,[id number]-[id number]-min 27-0.4 mg tablet 1 (one) time each [...] history of COPD (chronic obstructive pulmonary disease) ([facility]) and Hypertension. She has a [...] accurate and complete. documented in this encounter [facility] 12-30-2022 Note [place] [facility] Consul t Note Reason for Consultation: rolanda HANDCREW FOREMAN-D upgrade, 6-month follow-up 12/30/22: Has been doing well She is on BB and device shows NSVT x1 She has some CLAIRE and LE edema which is chronic. It is stable today , takes bumex as needed, Device check 07/22/2022: HANDCREW FOREMAN-D pacing 92%, normal device function stable lead [...] is having her device checked in July. -------- 12/31/[address] islas HPI: Lluvia [...] and so the device was upgraded to HANDCREW FOREMAN-D and old RV pacing lead was extracted. Segment of this elevated echocardiogram was performed which showed improvement of EF from 30 to 45%. Device check performed on July 06, 2019July shows and pacemaker programmed at 70 bpm. Thresholds were noted to be 0.6 and 1.1V respectively. Patient underwent BiV HANDCREW FOREMAN-D upgrade on 08/21/2021 1. Successful BiV-ICD implantation [...] tablet by mouth (more content not included)... [facility] 12-30-2022 Note Patient here for 6 m [...] All other systems reviewed and are negative. [facility] 08-22-2021 Note EXAMINATION: XR CHES T 2 [...] by: JOEL ANDINO Date: 2021-08-22 17:39 [facility] 06-17-2021 Note PROCEDURE: XR FEMUR LT HISTORY: [...] by: JOEL ANDINO Date: 2021-06-17 11:09 [facility] Evaluation note Diagnosis Esotropia of right eye- Primary Unspecified esotropia Right abducens nerve palsy Double vision Diplopia documented in this encounter [facility]* Attachments The following attachments cannot be sent through Care Everywhere. * Double Vision (Amharic) [facility] Summary Purpose Family History No Family [...] and content) DATE CREATED AUTHOR 10/15/2021 [facility] DATE CREATED AUTHOR AUTHOR'S ORGANIZ ATION 05/18/2022 [facility] DATE CREATED AUTHOR AUTHOR'S ORGANIZ ATION 04/27/2023 [facility] DATE CREATED AUTHOR AUTHOR'S ORGANIZ ATION 07/23/2023 [facility] DATE CREATED AUTHOR AUTHOR'S ORGANIZ ATION 07/28/2023 [facility] Reason for Visit (unrecogniz ed section and content) Reason Comments Follow-up Care Teams (unrecognized sec tion and content) Investment Counselor Relationship Specialty Start Date End Date Ole Yang MD [address] [facility] [address] [place] [address] PCP - General Internal Medicine 08/13/22 FOR [...] BE BASED ON THE PRIMARY CLINICAL RECORDS. [employer] provides no warranty or guarantee of the accuracy or completeness of information in this document.
== END 2023-08-05 09:51 | disposition home or self-care (01) ==
LOC: CARD 09:51
PROVIDERS: PCP Internal Medicine; Visit Provider Nurse Practitioner
DX: I50.22 Chronic systolic (congestive) heart failure (principal)
CPT/HCPCS: 93306

== ENCOUNTER 2023-08-13 10:10 | Outpatient (OUT) | payer MEDICARE, OTHER, SELFPAY ==
--- OUTSIDE RECORDS SUMMARY | 2023-08-13 10:25 | XMS_ITS | CCD ---
Author Organization [facility] Care Team Providers Care It Consulting Director Name Role Phone KEANU ISLAS Admitting Unavailable KEANU ISLAS Attending Unavailable OLE YANG Referring Unavailable OLE YANG Primary Care Unavailable KEANU ISLAS Admitting Unavailable KEANU ISLAS Attending Unavailable OLE YANG Primary Care Unavailable OLE YANG Referring Unavailable KEANU ILSAS Admitting Unavailable KEANU ISLAS Attending Unavailable OLE YANG Primary Care Unavailable OLE YANG Referring Unavailable MICHELLE, DONNAMAD Consulting Unavailable DR OLE YANG Primary Care Unavailable MICHELLE, RUSLAND Attending Unavailable MICHELLE, AHMAD Admitting Unavailable CHERY, SHELDON Consulting Unavailable SHELDON GOTTLIEB Attending Unavailable CHERY, SHELDON Admitting Unavailable EMILY, DR GRANT Primary Care Unavailable STEPH, DR MAYRA Denson Admitting Unavailabl e REINECK, DR MAYRA Denson Consulting Unavailabl e YANG, DR GRANT Primary Care Unavailable STEPH, DR MAYRA Denson Attending Unavailabl e ZIEBAMAIRANI, DR NAEEM Petersen Consulting Unavailable DESEAN, LARRY Consulting Unavailable DESEAN, LARRY Attending Unavailable DR OLE YANG Primary Care Unavailable DESEAN, LARRY Admitting Unavailable DESEAN, LARRY Admitting Unavailable DESEAN, LARRY Consulting Unavailable DESEAN, LARRY Attending Unavailable CHERY, SHELDON Primary Care Unavailable CHERY, SHELDON Consulting Unavailable SHELDON GOTTLIEB Attending Unavailable SHELDON GOTTLIEB Admitting Unavailable DR OLE YANG Primary Care Unavailable MICHELLE, AHMALeandra Consulting Unavailable MICHELLE, AHMAD Attending Unavailable EMILY, DR GRANT Primary Care Unavailable MICHELLE, AHMAD Admitting Unavailable GABRIEL GREEN Admitting Unavailable DR OLE YANG Primary Care Unavailable GABRIEL GREEN Attending Unavailable SINA, DR NAEEM Petersen Consulting Unavailable GABRIEL GREEN Consulting Unavailable CHERY, SHELDON Consulting Unavailable SHELDON GOTTLIEB Attending Unavailable OBI GOTTLIEBA Admitting Unavailable EMILY, DR GRANT Primary Care Unavailable HEMMIHAELA, DR BRAD Montesinos Admitting Unavailable EMILY, DR GRANT Primary Care Unavailable SINA, DR NAEEM Petersen Consulting Unavailable HEMMER, DR BRAD Montesinos Attending Unavailable HEMMER, DR BRAD Montesinso Consulting Unavailable OBI GOTTLIEBA Attending Unavailable CHERY, SHELDON Admitting Unavailable SHELDON GOTTLIEB Consulting Unavailable EMILY, DR GRANT Primary Care Unavailable MICHELLE, AHMAD Attending Unavailable YANG, DR GRANT Primary Care Unavailable MICHELLE, AHMAD Admitting Unavailable MICHELLE, AHMAD Consulting Unavailable CHERY, SHELDON Attending Unavailable CHERY, SHELDON Admitting Unavailable EMILY, DR GRANT Primary Care Unavailable SINA, DR NAEEM Petersen Consulting Unavailable CHERY, SHELDON Consulting Unavailable KEANU ISLAS Admitting Unavailable KEANU ISLAS Attending Unavailable EMILY, DR GRANT Primary Care Unavailable SINA, DR NAEEM Petersen Consulting Unavailable KEANU SILAS Consulting Unavailable CHERY, SHELDON Consulting Unavailable CHERY, SHELDON Attending Unavailable CHERY, SHELDON Admitting Unavailable EMILY, DR GRANT Primary Care Unavailable ELIEL NICHOLS Attending Unavailable OLE YANG Referring Unavailable OLE YANG Primary Care Unavailable Ole Yang MD Primary Care Provider OLE YANG Attending Unavailable OLE YANG Attending Unavailable OLE YANG Attending Unavailable BRAD ANDERSON Attending Unavailable OLE YANG Attending Unavailable LARRY ANTON Attending Unavailable KEANU ISLAS Referring Unavailable KEANU ISLAS Referring Unavailable KWAN RANGEL Attending Unavailable CLAUDIO WALKER Attending Unavailable KEANU ISLAS Referring Unavailable Medications Current Medications Medication Drug Class(es) [...] Chronic Chronic obstructive pulmonary disease and bronchiectasis (3 sources) Chronic obstructive pulmonary disease with (acute) exacerbation; Translations: [Chronic obstructive pulmonary disease, unspecified] Onset: 06-06-2021 Chronic Conduction disorders (5 sources) [...] OF DYSPNEA] Onset: 06-18-2021 Episodic Thyroid disorders (7 sources) Thyrotoxicosis, unspecified without thyrotoxic crisis or [...] Onset: 06-18-2021 Episodic Other aftercare (1 source) ocean transportation intermediary (current) use of aspirin; Translations: [[facility] 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 ASPIRIN] Onset: 06-18-2021 Episodic Other aftercare (1 source) Other care home (current) drug therapy; Translations: [OTH [facility] CURRENT DRUG THERAPY] Onset: 06-18-2021 Episodic Other [...] Value Interpretation Reference Range Facility Office Visiton 08-07-2023 Follow-up visit [id number] Lluvia Moreno 1940 F Date Provider Department Center 08/07/2023 [id number] WALKER Family History Problem Relation Age of Onset Colon cancer Father Coronary artery disease Brother Hypertension Brother Kidney cancer Brother Family Status - Relation Status Age at Father Brother Level of Service:59784 SC OFFICE/OUTPATIENT ESTABLISHED MOD MDM 30 MIN Normal [facility] Office Visiton 07-08-2023 Follow-up visit [id number] lLuvia Moreno 1940 F Date Provider Department Center 07/08/2023 120-LARRY ANTON ISABELLE Fuller Family History Problem Relation Age of Onset Colon cancer Father Coronary artery disease Brother Hypertension Brother Kidney cancer Brother Family Status - Relation Status Age at Father Brother Level of Service:60934 SC OFFICE/OUTPATIENT ESTABLISHED MOD MDM 30 MIN Reason for Visit and Comments: Follow-up [643115] - 6 month follow up Normal [facility] Orders Onlyon 07-08-2023 Orders Only [id number] Lluvia Moreno 1940 F Date Provider Department Center 07/08/2023 [id number], HISTORICAL JOMAR Fuller Family History Problem Relation Age of Onset Colon cancer Father Coronary artery disease Brother Hypertension Brother Kidney cancer Brother Family Status - Relation Status Age at Father Brother Normal [facility] Office Visiton 12-30-2022 Follow-up visit [id number] Mohr 1940 F Date Provider Department Center 12/30/2022 1596-KWAN RANGEL [facility] Family History Problem Relation Age of Onset Colon cancer Father Coronary artery disease Brother Hypertension Brother Kidney cancer Brother Family Status - Relation Status Age at Father Brother Level of Service:51414 SC OFFICE/OUTPATIENT ESTABLISHED MOD MDM 30-39 MIN Normal [facility] FREE T3on 05-14-2022 FREE T3 2.54 pg/mlL Normal 2.18-3.98 [facility] Comment on above: Performed By: #### F T3, TSH #### [facility] [address] [address] [address] Hugo Yang FREE T4on 05-14-2022 Free T4 [Mass/Vol] 1.09 ng/dL Normal 0.76-1.46 [facility] Comment on above: Performed By: #### F T4 #### [facility] [address] [address] [address] Hugo Yang TSHon 05-14-2022 TSH 3.015 uIU/mL Normal 0.358-3.740 [facility] Comment on above: Performed By: #### F T3, TSH #### [facility] [address] HEAD WO CONon [...] small vessel ischemic changes. Electronically authenticated by: NAEEM GARCIA Date: 2022-03-19 10:33 Normal [facility] XR DEXA BONE DENSITYon 03-19 XR [...] - High Fracture Risk Electronically authenticated by: NAEEM GARCIA Date: 2022-03-19 11:11 Normal [facility] ECHOCARDIO M/2D COMPLETEon 1 02-22-2021 ECHOCARDIO M/2D COMPLETE Patient: LLUVIA MORENO Exam Date: 12/23/2021 : 1940 Gender:F Ordering : SHELDON GOTTLIEB [facility] Admission #: [id number] Family : DR OLE YANG M.D. Order #: [id number] CLICK HERE TO VIEW EXAM ECHOCARDIOGRAM REPORT [...] Lucas M.D. on 12/24/2021 at 15:56 Normal [facility] FREE T3on 11-25-2021 FREE T3 1.97 pg/mlL Critically low 2.18-3.98 [facility] Comment on above: Performed By: #### F T3, TSH #### [facility] [address] [address] [address] Hugo Yang FREE T4on 11-25-2021 Free T4 [Mass/Vol] 1.00 ng/dL Normal 0.76-1.46 [facility] Comment on above: Performed By: #### F T3, TSH #### [facility] [address] [address] [address] Hugo Yang LIVER PROFILEon 11-25-2021 Albumin [Mass/Vol] 3.9 g/dL Normal 3.4-5.0 [facility] Comment on above: Performed By: #### F T3, TSH #### [facility] [address] [address] [address] Hugo Yang Albumin/Globulin [Mass ratio] 1.1 {ratio} Normal [facility] Comment on above: Performed By: #### F T3, TSH #### [facility] [address] [address] [address] Hugo Yang ALP [Catalytic activity/Vol] 94 U/L Normal 46-116 [facility] Comment on above: Performed By: #### F T3, TSH #### [facility] [address] [address] [address] Hugo Yang ALT [Catalytic activity/Vol] 41 U/L Normal 14-59 [facility] Comment on above: Performed By: #### F T3, TSH #### [facility] [address] [address] [address] Hugo Yang AST [Catalytic activity/Vol] 25 U/L Normal 15-37 [facility] Comment on above: Performed By: #### F T3, TSH #### [facility] [address] [address] [address] Hugo Yang BILI, CONJUGATED 0.2 mg/dL Normal 0.0-0.2 [facility] Comment on above: Performed By: #### F T3, TSH #### [facility] [address] [address] [address] Hugo Yang Bilirubin [Mass/Vol] 0.8 mg/dL Normal 0.2-1.0 [facility] Comment on above: Performed By: #### F T3, TSH #### [facility] [address] [address] [address] Hugo Yang Globulin (S) [Mass/Vol] 3.5 g/dL Normal [facility] Comment on above: Performed By: #### F T3, TSH #### [facility] [address] [address] [address] Hugo Yang Protein [Mass/Vol] 7.4 g/dL Normal 6.4-8.2 [facility] Comment on above: Performed By: #### F T3, TSH #### [facility] [address] [address] [address] Hugo Yang TSHon 11-25-2021 TSH 2.892 uIU/mL Normal 0.358-3.740 [facility] Comment on above: Performed By: #### F T3, TSH #### [facility] [address] [address] [address] Hugo Yang US PIPER DOP LEG [...] the right lower extremity. Electronically authenticated by: NAEEM GARCIA Date: 2021-09-04 12:18 Normal [facility] Cardiovascular Lab Reporton 08-21-2021 Cardiovascular Lab Report [facility] [id number] Physician: Keanu Islas MD Department of Service Date: 08/21/2021 Medicine Birthdate: 1940 Division of Room #: CC Cardiology Adult Cardiovascular Services [facility] [address] [facility] [place] [address] Cardiovascular Laboratory Report TBIV-UPGRADE PROCEDURE NOTE DATE OF PROCEDURE: 08/21/2021 PERFORMING PHYSICIAN: Dr. Keanu Islas CONSENT: Patient LOCATION: EP Lab PROCEDURE PERFORMED: 1. Implantation of Biventricular ICD ([employer]). 2. Explantation of previously implanted pacemaker generator ([employer]). 3. RV pacing lead and extraction. [...] was then removed and venogram was performed. [place] catheter was advanced and venogram was performed. This revealed a good posterolateral vein, but other than that, an anterior vein was noted, but no significant other branches were seen. After this, a 0.014 wire was passed through the [place]-Sarah catheter and traversed into the posterolateral vein. However, the wire was short enough and we could not get a good grasp at the end. So, thereafter, the [place]-Sarah catheter was removed and 90-degree inner cannula was used to access the vein. A longer 0.014 wire tracked into the vein. Over this, a Unbxd Acuity straight lead was advanced and placed [...] The inner cannulas were split and the [place] sheath was slit and the lead secured [...] t (more content not included)... Normal [facility] Covid-19 PCR ([facility])on SARS-CoV-2 (COVID-19) RNA SONA+probe Ql (Unsp spec) Not detected Normal NOT DETECTED [facility] Comment on above: Result Comment: When diagnostic [...] for this test is supported by the Cash [employer] Representative of Health and Human Service's declaration that [...] used). Performed By: #### B MP #### [facility] [address] [place] [address] Dr. Hugo Yang HEMOGRAM AND PLATELon 2021 Hematocrit (Bld) [Volume fraction] 43.7 % Normal 36.0-48.0 [facility] Comment on above: Performed By: #### C BC #### [facility] [address] [place] [address] Dr. Hugo Yang Hemoglobin (Bld) [Mass/Vol] 14.2 g/dL Normal 12.0-16.0 [facility] Comment on above: Performed By: #### C BC #### [facility] [address] [place] [address] Dr. Hugo Yang MCH (RBC) [Entitic mass] 31.0 pg Normal 26.7-34.0 [facility] Comment on above: Performed By: #### C BC #### [facility] [address] [place] [address] Dr. Hugo Yang MCHC (RBC) [Mass/Vol] 32.5 g/dL Normal 29.9-35.2 [facility] Comment on above: Performed By: #### C BC #### [facility] [address] [place] [address] Dr. Hugo Yang MCV (RBC) [Entitic vol] 95.4 fL Normal 81.0-99.0 [facility] Comment on above: Performed By: #### C BC #### [facility] [address] [place] [address] Dr. Hugo Yang PLT 161 103/ul Normal 150-450 [facility] Comment on above: Performed By: #### C BC #### [facility] [address] [place] [address] Dr. Hugo Yang RBC 4.58 106/ul Normal 4.20-5.40 [facility] Comment on above: Performed By: #### C BC #### [facility] [address] [place] [address] Dr. Hugo Yang WBC 6.9 103/ul Normal 4.0-11.0 [facility] Comment on above: Performed By: #### C BC #### [facility] [address] [place] [address] Dr. Hugo Yang PROF CHEM 8 (BAS METB)on Anion gap [Moles/Vol] 11.5 mmol/L Normal [facility] Comment on above: Performed By: #### B MP #### [facility] [address] [address] [address] Hugo Yang Calcium [Mass/Vol] 9.6 mg/dL Normal 8.5-10.1 [facility] Comment on above: Performed By: #### B MP #### [facility] [address] [address] [address] Hugo Yang Chloride [Moles/Vol] 104 mmol/L Normal 98-107 [facility] Comment on above: Performed By: #### B MP #### [facility] [address] [address] [address] Hugo Yang CO2 [Moles/Vol] 30.6 mmol/L Normal 21.0-32.0 [facility] Comment on above: Performed By: #### B MP #### [facility] [address] [address] [address] Hugo Yang Creatinine [Mass/Vol] 1.24 mg/dL Critically high 0.55-1.02 [facility] Comment on above: Performed By: #### B MP #### [facility] [address] [address] [address] Hugo Yang EGFR-AF TONGAN 51 mL/min/1.73m2 Critically low >=60 [facility] Comment on above: Performed By: #### B MP #### [facility] [address] [address] [address] Hugo Yang EGFR-NON AF TONGAN 42 mL/min/1.73m2 Critically low >=60 [facility] Comment on above: Performed By: #### B MP #### [facility] [address] [address] [address] Hugo Yang Glucose [Mass/Vol] 111 mg/dL Critically high 74-106 [facility] Comment on above: Performed By: #### B MP #### [facility] [address] [address] [address] Hugo Yang Potassium [Moles/Vol] 5.1 mmol/L Normal 3.5-5.1 [facility] Comment on above: Performed By: #### B MP #### [facility] [address] [place] [address] Dr. Hugo Yang Sodium [Moles/Vol] 141 mmol/L Normal 136-145 [facility] Comment on above: Performed By: #### B MP #### [facility] [address] [place] [address] Dr. Hugo Yang Urea nitrogen [Mass/Vol] 31.0 mg/dL Critically high 7.0-18.0 [facility] Comment on above: Performed By: #### B MP #### [facility] [address] [place] [address] Dr. Hugo Yang Urea nitrogen/Creatinin e [Mass ratio] 25.0 mg/mg Normal [facility] Comment on above: Performed By: #### B MP #### [facility] [address] [place] [address] Dr. Hugo Yang BNPon 07-30-2021 Natriuretic peptide B (Bld) [Mass/Vol] 1994.0 pg/mL Critically high <=1,800.0 [facility] Comment on above: Performed By: #### C BC #### [facility] [address] [place] [address] Dr. Hugo Yang PROF CHEM 8 (BAS METB)on Anion gap [Moles/Vol] 11.3 mmol/L Normal [facility] Comment on above: Performed By: #### C BC #### [facility] [address] [place] [address] Dr. Hugo Yang Calcium [Mass/Vol] 9.7 mg/dL Normal 8.5-10.1 [facility] Comment on above: Performed By: #### C BC #### [facility] [address] [place] [address] Dr. Hugo Yang Chloride [Moles/Vol] 104 mmol/L Normal 98-107 [facility] Comment on above: Performed By: #### C BC #### [facility] [address] [place] [address] Dr. Hugo Yang CO2 [Moles/Vol] 29.6 mmol/L Normal 21.0-32.0 [facility] Comment on above: Performed By: #### C BC #### [facility] [address] [address] [address] Hugo Yang Creatinine [Mass/Vol] 1.28 mg/dL Critically high 0.55-1.02 [facility] Comment on above: Performed By: #### C BC #### [facility] [address] [address] [address] Hugo Yang EGFR-AF TONGAN 49 mL/min/1.73m2 Critically low >=60 [facility] Comment on above: Performed By: #### C BC #### [facility] [address] [address] [address] Hugo Yang EGFR-NON AF TONGAN 40 mL/min/1.73m2 Critically low >=60 [facility] Comment on above: Performed By: #### C BC #### [facility] [address] [address] [address] Hugo Yang Glucose [Mass/Vol] 119 mg/dL Critically high 74-106 [facility] Comment on above: Performed By: #### C BC #### [facility] [address] [address] [address] Hugo Yang Potassium [Moles/Vol] 4.9 mmol/L Normal 3.5-5.1 [facility] Comment on above: Performed By: #### C BC #### [facility] [address] [address] [address] Hugo Yang Sodium [Moles/Vol] 140 mmol/L Normal 136-145 [facility] Comment on above: Performed By: #### C BC #### [facility] [address] [address] [address] Hugo Yang Urea nitrogen [Mass/Vol] 30.0 mg/dL Critically high 7.0-18.0 [facility] Comment on above: Performed By: #### C BC #### [facility] [address] [address] [address] Hugo Yang Urea nitrogen/Creatinin e [Mass ratio] 23.4 mg/mg Normal [facility] Comment on above: Performed By: #### C BC #### [facility] [address] [place] [address] Dr. Hugo Yang FREE T3on 06-28-2021 FREE T3 2.64 pg/mlL Normal 2.18-3.98 [facility] Comment on above: Performed By: #### F T3, TSH #### [facility] [address] [place] [address] Dr. Hugo Yang FREE T4on 06-28-2021 Free T4 [Mass/Vol] 1.19 ng/dL Normal 0.76-1.46 [facility] Comment on above: Performed By: #### B MP #### [facility] [address] [place] [address] Dr. Hugo Yang LIVER PROFILEon 06-28-2021 Albumin [Mass/Vol] 3.8 g/dL Normal 3.4-5.0 [facility] Comment on above: Performed By: #### F T3, TSH #### [facility] [address] [place] [address] Dr. Hugo Yang Albumin/Globulin [Mass ratio] 1.2 {ratio} Normal [facility] Comment on above: Performed By: #### F T3, TSH #### [facility] [address] [place] [address] Dr. Hugo Yang ALP [Catalytic activity/Vol] 88 U/L Normal 46-116 [facility] Comment on above: Performed By: #### F T3, TSH #### [facility] [address] [place] [address] Dr. Hugo Yang ALT [Catalytic activity/Vol] 54 U/L Normal 14-59 [facility] Comment on above: Performed By: #### F T3, TSH #### [facility] [address] [place] [address] Dr. Hugo Yang AST [Catalytic activity/Vol] 36 U/L Normal 15-37 [facility] Comment on above: Performed By: #### F T3, TSH #### [facility] [address] [address] [address] Hugo Yang BILI, CONJUGATED 0.3 mg/dL Critically high 0.0-0.2 [facility] Comment on above: Performed By: #### F T3, TSH #### [facility] [address] [place] [address] Dr. Hugo Yang Bilirubin [Mass/Vol] 0.9 mg/dL Normal 0.2-1.0 [facility] Comment on above: Performed By: #### F T3, TSH #### [facility] [address] [place] [address] Dr. Hugo Yang Globulin (S) [Mass/Vol] 3.3 g/dL Normal [facility] Comment on above: Performed By: #### F T3, TSH #### [facility] [address] [place] [address] Dr. Hugo Yang Protein [Mass/Vol] 7.1 g/dL Normal 6.4-8.2 [facility] Comment on above: Performed By: #### F T3, TSH #### [facility] [address] [place] [address] Dr. Hugo Yang PROF CHEM 8 (BAS METB)on Anion gap [Moles/Vol] 13.6 mmol/L Normal [facility] Comment on above: Performed By: #### B MP #### [facility] [address] [place] [address] Dr. Hugo Yang Calcium [Mass/Vol] 9.5 mg/dL Normal 8.5-10.1 [facility] Comment on above: Performed By: #### B MP #### [facility] [address] [place] [address] Dr. Hugo Yang Chloride [Moles/Vol] 105 mmol/L Normal 98-107 [facility] Comment on above: Performed By: #### B MP #### [facility] [address] [place] [address] Dr. Hugo Yang CO2 [Moles/Vol] 28.5 mmol/L Normal 21.0-32.0 [facility] Comment on above: Performed By: #### B MP #### [facility] [address] [address] [address] Hugo Yang Creatinine [Mass/Vol] 1.05 mg/dL Critically high 0.55-1.02 [facility] Comment on above: Performed By: #### B MP #### [facility] [address] [address] [address] Hugo Yang EGFR-AF TONGAN >60 Normal >=60 [facility] Comment on above: Performed By: #### B MP #### [facility] [address] [address] [address] Hugo Yang EGFR-NON AF TONGAN 51 mL/min/1.73m2 Critically low >=60 [facility] Comment on above: Performed By: #### B MP #### [facility] [address] [address] [address] Hugo Yang Glucose [Mass/Vol] 113 mg/dL Critically high 74-106 [facility] Comment on above: Performed By: #### B MP #### [facility] [address] [address] [address] Hugo Yang Potassium [Moles/Vol] 5.1 mmol/L Normal 3.5-5.1 [facility] Comment on above: Performed By: #### B MP #### [facility] [address] [address] [address] Hugo Yang Sodium [Moles/Vol] 142 mmol/L Normal 136-145 [facility] Comment on above: Performed By: #### B MP #### [facility] [address] [address] [address] Hugo Yang Urea nitrogen [Mass/Vol] 29.0 mg/dL Critically high 7.0-18.0 [facility] Comment on above: Performed By: #### B MP #### [facility] [address] [address] [address] Hugo Yang Urea nitrogen/Creatinin e [Mass ratio] 27.6 mg/mg Normal [facility] Comment on above: Performed By: #### B MP #### [facility] [address], [place] [address] Dr. Hugo Yang TSHon 06-28-2021 TSH 3.067 uIU/mL Normal 0.358-3.740 [facility] Comment on above: Performed By: #### F T3, TSH #### [facility] [address], [place] [address] Dr. Hugo Yang TSH RANGE SEE BELOW Normal [facility] Comment on above: Result Comment: <0.3 4 UIU/ml HYPERTHYROID 0.34-5.60 UIU/ml EUTHYROID >5.60 UIU/ml HYPOTHYROID Performed By: #### F T3, TSH #### [facility] [address], [place] [address] Dr. Hugo Yang Cardiovascular Lab Reporton 06-21-2021 Cardiovascular Lab Report [facility] Patient Name: [facility] MR #: [id number] Physician: Elizabeth Tejeda, Department of M.D. Medicine Service Date: 06/20/2021 Division of Birthdate: 1940 Cardiology Room #: [facility] Cardiovascular Services [place] [address] Cardiovascular Laboratory Report FINAL IMPRESSIONS: 1. 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 2. Otherwise nonobstructive coronary arteries angiographically. 3. Moderately reduced global left ventricular systolic function by noninvasive imaging. 4. Normal right-sided heart pressures and wedge pressure. 5. [id number]-[id number] systemic hypertension. 6. Mildly reduced cardiac output/cardiac [...] bilateral selective coronary angiography, placement of a 6-[place] MynxGrip closure device. METHODS: After risks, benefits, [...] femoral vein and artery was obtained. A 6-[place] 11 cm sheath was placed in each. [...] the procedure. All catheters were removed. A 6-[place] MynxGrip closure device was deployed per protocol [...] E (more content not included)... Normal [facility] BNPon 06-18-2021 Natriuretic peptide B (Bld) [Mass/Vol] 3442.0 pg/mL Critically high <=1,800.0 [facility] Comment on above: Result Comment: TEST REPEATED CRITICAL VALUE VERIFIED Performed By: #### L IPID, BNP, CMP #### [facility] [address] [place] [address] Dr. Hugo Yang CBC AUTO DIFFon 06-18-2021 BASO # 0.1 103/ul Normal 0.0-0.1 [facility] Comment on above: Performed By: #### C BC #### [facility] [address] [address] [address] Hugo Yang Basophils/100 WBC (Bld) 0.5 % Normal 0.2-2.0 [facility] Comment on above: Performed By: #### C BC #### [facility] [address] [place] [address] Dr. Hugo Yang EO # 0.3 103/ul Normal 0.0-0.7 [facility] Comment on above: Performed By: #### C BC #### [facility] [address] [address] [address] Hugo Yang Eosinophils/100 WBC (Bld) 2.3 % Normal 0.9-7.0 [facility] Comment on above: Performed By: #### C BC #### [facility] [address] [place] [address] Dr. Hugo Yang Erythrocyte distribution width (RBC) [Ratio] 14.5 % Normal 11.0-15.0 [facility] Comment on above: Performed By: #### C BC #### [facility] [address] [place] [address] Dr. Hugo Yang Hematocrit (Bld) [Volume fraction] 42.3 % Normal 36.0-48.0 [facility] Comment on above: Performed By: #### C BC #### [facility] [address] [place] [address] Dr. Hugo Yang Hemoglobin (Bld) [Mass/Vol] 13.5 g/dL Normal 12.0-16.0 [facility] Comment on above: Performed By: #### C BC #### [facility] [address] [place] [address] Dr. Hugo Yang IG # 0.05 10e3/ul Critically high 0.00-0.03 [facility] Comment on above: Performed By: #### C BC #### [facility] [address] [place] [address] Dr. Hugo Yang IG % 0.4 % Normal 0.0-0.5 [facility] Comment on above: Performed By: #### C BC #### [facility] [address] [place] [address] Dr. Hugo Yang LYMPH # 1.5 103/ul Normal 1.2-3.8 [facility] Comment on above: Performed By: #### C BC #### [facility] [address] [place] [address] Dr. Hugo Yang Lymphocytes/100 WBC (Bld) 12.9 % Critically low 20.5-60.0 [facility] Comment on above: Performed By: #### C BC #### [facility] [address] [place] [address] Dr. Hugo Yang MANUAL DIFF REQ NO Normal [facility] Comment on above: Performed By: #### C BC #### [facility] [address] [address] [address] Hugo Yang MCH (RBC) [Entitic mass] 30.4 pg Normal 26.7-34.0 [facility] Comment on above: Performed By: #### C BC #### [facility] [address] [address] [address] Hugo Yang MCHC (RBC) [Mass/Vol] 31.9 g/dL Normal 29.9-35.2 [facility] Comment on above: Performed By: #### C BC #### [facility] [address] [place] [address] Dr. Hugo Yang MCV (RBC) [Entitic vol] 95.3 fL Normal 81.0-99.0 [facility] Comment on above: Performed By: #### C BC #### [facility] [address] [place] [address] Dr. Hugo Yang MONO # 0.7 103/ul Normal 0.3-0.8 [facility] Comment on above: Performed By: #### C BC #### [facility] [address] [place] [address] Dr. Hugo Yang Monocytes/100 WBC (Bld) 6.2 % Normal 1.7-12.0 [facility] Comment on above: Performed By: #### C BC #### [facility] [address] [place] [address] Dr. Hugo Yang NEUT # 8.8 103/ul Critically high 1.4-6.[address] [facility] Comment on above: Performed By: #### C BC #### [facility] [address] [place] [address] Dr. Hugo Yang Neutrophils/100 WBC (Bld) 77.7 % Critically high 43.0-75.0 [facility] Comment on above: Performed By: #### C BC #### [facility] [address] [address] [address] Hugo Yang Platelet mean volume (Bld) [Entitic vol] 10.4 fL Normal 9.5-13.5 [facility] Comment on above: Performed By: #### C BC #### [facility] [address] [place] [address] Dr. Hugo Yang PLT 199 103/ul Normal 150-450 [facility] Comment on above: Performed By: #### C BC #### [facility] [address] [place] [address] Dr. Hugo Yang RBC 4.44 106/ul Normal 4.20-5.40 [facility] Comment on above: Performed By: #### C BC #### [facility] [address] [place] [address] Dr. Hugo Yang WBC 11.3 103/ul Critically high 4.0-11.0 [facility] Comment on above: Performed By: #### C BC #### [facility] [address] [place] [address] Dr. Hugo Yang [facility]on SARS-CoV-2 (COVID-19) RNA SONA+probe Ql (Unsp spec) Not detected Normal NOT DETECTED [facility] Comment on above: Result Comment: This test is not yet approved or cleared by the [place] FDA. When there are no FDA-approved or cleared tests available, and other criteria are met, FDA can make tests available under an emergency access mechanism called an Emergency Use Authorization (EUA). The EUA for this test is supported by the [place] of Health and Human Service's (HHS's) declaration [...] Performed By: #### F T3, TSH #### [facility] [address] [address] [address] Hugo Yang LIPID PROFILEon 06-18-2021 CHOL-HDL RATIO NORM SEE BELOW Normal [facility] Comment on above: Result Comment: 3.3 - 4.4 LOW RISK 4.4 - 7.1 AVERAGE RISK 7.1 - 11.0 MODERATE RISK >11.0 HIGH RISK Performed By: #### L IPID, BNP, CMP #### [facility] [address] [address] [address] Hugo Yang Cholesterol [Mass/Vol] 127 mg/dL Normal <=200 [facility] Comment on above: Performed By: #### L IPID, BNP, CMP #### [facility] [address] [address] [address] Hugo Yang Cholesterol in HDL [Mass/Vol] 60 mg/dL Normal 40-60 [facility] Comment on above: Performed By: #### L IPID, BNP, CMP #### [facility] [address] [address] [address] Hugo Yang Cholesterol in LDL [Mass/Vol] 47.4 mg/dL Normal [facility] Comment on above: Performed By: #### L IPID, BNP, CMP #### [facility] [address] [address] [address] Hugo Yang Cholesterol.total/ Cholesterol in HDL [Mass ratio] 2.1 {ratio} Normal [facility] Comment on above: Performed By: #### L IPID, BNP, CMP #### [facility] [address] [address] [address] Hugo Yang HDL NORMAL > or = 60 mg/dl - LO W CARDIOVASCULAR RISK <40 mg/dl - HIGH CARDIOVASCULAR RISK Normal [facility] Comment on above: Performed By: #### L IPID, BNP, CMP #### [facility] [address] [address] [address] Hugo Yang LDL CALC NORMAL SEE BELOW Normal [facility] Comment on above: Result Comment: <100 mg/dl OPTIMAL 100 - 129 mg/dl NEAR OR ABOVE OPTIMAL 130 - 159 mg/dl BORDERLINE HIGH 160 - 189 mg/dl HIGH >190 mg/dl VERY HIGH Performed By: #### L IPID, BNP, CMP #### [facility] [address] [address] [address] Hugo Yang Triglyceride [Mass/Vol] 98 mg/dL Normal <=150 [facility] Comment on above: Performed By: #### L IPID, BNP, CMP #### [facility] [address] [address] [address] Hugo Yang VLDL CALC 19.6 mg/dL Normal [facility] Comment on above: Performed By: #### L IPID, BNP, CMP #### [facility] [address] [place] [address] Dr. Hugo Yang PROF 14(COMP METB)on 022 Albumin [Mass/Vol] 4.0 g/dL Normal 3.4-5.0 [facility] Comment on above: Performed By: #### L IPID, BNP, CMP #### [facility] [address] [place] [address] Dr. Hugo Yang Albumin/Globulin [Mass ratio] 1.3 {ratio} Normal [facility] Comment on above: Performed By: #### L IPID, BNP, CMP #### [facility] [address] [place] [address] Dr. Hugo Yang ALP [Catalytic activity/Vol] 82 U/L Normal 46-116 [facility] Comment on above: Performed By: #### L IPID, BNP, CMP #### [facility] [address] [place] [address] Dr. Hugo Yang ALT [Catalytic activity/Vol] 52 U/L Normal 14-59 [facility] Comment on above: Performed By: #### L IPID, BNP, CMP #### [facility] [address] [place] [address] Dr. Hugo Yang Anion gap [Moles/Vol] 12.9 mmol/L Normal [facility] Comment on above: Performed By: #### L IPID, BNP, CMP #### [facility] [address] [address] [address] Hugo Yang AST [Catalytic activity/Vol] 40 U/L Critically high 15-37 [facility] Comment on above: Performed By: #### L IPID, BNP, CMP #### [facility] [address] [address] [address] Hugo Yang Bilirubin [Mass/Vol] 1.7 mg/dL Critically high 0.2-1.0 [facility] Comment on above: Performed By: #### L IPID, BNP, CMP #### [facility] [address] [address] [address] Hugo Yang Calcium [Mass/Vol] 9.2 mg/dL Normal 8.5-10.1 [facility] Comment on above: Performed By: #### L IPID, BNP, CMP #### [facility] [address] [address] [address] Hugo Yang Chloride [Moles/Vol] 103 mmol/L Normal 98-107 [facility] Comment on above: Performed By: #### L IPID, BNP, CMP #### [facility] [address] [address] [address] Hugo Yang CO2 [Moles/Vol] 28.9 mmol/L Normal 21.0-32.0 [facility] Comment on above: Performed By: #### L IPID, BNP, CMP #### [facility] [address] [address] [address] Hugo Yang Creatinine [Mass/Vol] 1.12 mg/dL Critically high 0.55-1.02 [facility] Comment on above: Performed By: #### L IPID, BNP, CMP #### [facility] [address] [address] [address] Hugo Yang EGFR-AF TONGAN 57 mL/min/1.73m2 Critically low >=60 [facility] Comment on above: Performed By: #### L IPID, BNP, CMP #### [facility] [address] [address] [address] Hugo Yang EGFR-NON AF TONGAN 47 mL/min/1.73m2 Critically low >=60 [facility] Comment on above: Performed By: #### L IPID, BNP, CMP #### [facility] [address] [place] [address] Dr. Hugo Yang Globulin (S) [Mass/Vol] 3.1 g/dL Normal [facility] Comment on above: Performed By: #### L IPID, BNP, CMP #### [facility] [address] [place] [address] Dr. Hugo Yang Glucose [Mass/Vol] 128 mg/dL Critically high 74-106 [facility] Comment on above: Performed By: #### L IPID, BNP, CMP #### [facility] [address] [place] [address] Dr. Hugo Yang Potassium [Moles/Vol] 4.8 mmol/L Normal 3.5-5.1 [facility] Comment on above: Performed By: #### L IPID, BNP, CMP #### [facility] [address] [place] [address] Dr. Hugo Yang Protein [Mass/Vol] 7.1 g/dL Normal 6.1-8.2 [facility] Comment on above: Performed By: #### L IPID, BNP, CMP #### [facility] [address] [place] [address] Dr. Hugo Yang Sodium [Moles/Vol] 140 mmol/L Normal 136-145 [facility] Comment on above: Performed By: #### L IPID, BNP, CMP #### [facility] [address] [place] [address] Dr. Hugo Yang Urea nitrogen [Mass/Vol] 23.0 mg/dL Critically high 7.0-18.0 [facility] Comment on above: Performed By: #### L IPID, BNP, CMP #### [facility] [address] [place] [address] Dr. Hugo Yang Urea nitrogen/Creatinin e [Mass ratio] 20.5 mg/mg Normal [facility] Comment on above: Performed By: #### L IPID, BNP, CMP #### [facility] [address], [place] [address] Dr. Hugo Yang ECHOCARDIO M/2D COMPLETEon 0 06-12-2021 ECHOCARDIO M/2D COMPLETE Patient: LLUVIA MORENO Exam Date: 06/12/2021 : 1940 Gender:F Ordering : SHELDON GOTTLIEB Admission #: [id number] Family : DR OLE YANG M.D. Order #: [id number] CLICK HERE TO VIEW EXAM ECHOCARDIOGRAM REPORT [...] Area(A4C): 31.00 cm2 Left Atrium Systolic Volume(A2C): 467949 mm3 Left Atrium Systolic Volume(A4C): 590690 mm3 Mitral Valve MV E to A [...] M.D. on 06/12/2021 at 16:21 Approved by: yEal Lucas M.D. on 06/12/2021 at 16:27 Normal [facility] CBC AUTO DIFFon 06-04-2021 BASO # 0.0 103/ul Normal 0.0-0.1 [facility] Comment on above: Performed By: #### C BC #### [facility] [address] [place] [address] Dr. Hugo Yang Basophils/100 WBC (Bld) 0.6 % Normal 0.2-2.0 [facility] Comment on above: Performed By: #### C BC #### [facility] [address] [place] [address] Dr. Hugo Yang EO # 0.2 103/ul Normal 0.0-0.7 [facility] Comment on above: Performed By: #### C BC #### [facility] [address] [place] [address] Dr. Hugo Yang Eosinophils/100 WBC (Bld) 3.0 % Normal 0.9-7.0 [facility] Comment on above: Performed By: #### C BC #### [facility] [address] [place] [address] Dr. Hugo Yang Erythrocyte distribution width (RBC) [Ratio] 13.7 % Normal 11.0-15.0 [facility] Comment on above: Performed By: #### C BC #### [facility] [address] [place] [address] Dr. Hugo Yang Hematocrit (Bld) [Volume fraction] 42.1 % Normal 36.0-48.0 [facility] Comment on above: Performed By: #### C BC #### [facility] [address] [place] [address] Dr. Hugo Yang Hemoglobin (Bld) [Mass/Vol] 13.3 g/dL Normal 12.0-16.0 [facility] Comment on above: Performed By: #### C BC #### [facility] [address] [place] [address] Dr. Hugo Yang IG # 0.02 10e3/ul Normal 0.00-0.03 [facility] Comment on above: Performed By: #### C BC #### [facility] [address] [place] [address] Dr. Hugo Yang IG % 0.3 % Normal 0.0-0.5 [facility] Comment on above: Performed By: #### C BC #### [facility] [address] [place] [address] Dr. Hugo Yang LYMPH # 1.9 103/ul Normal 1.2-3.8 [facility] Comment on above: Performed By: #### C BC #### [facility] [address] [place] [address] Dr. Hugo Yang Lymphocytes/100 WBC (Bld) 29.2 % Normal 20.5-60.0 [facility] Comment on above: Performed By: #### C BC #### [facility] [address] [place] [address] Dr. Hugo Yang MANUAL DIFF REQ NO Normal [facility] Comment on above: Performed By: #### C BC #### [facility] [address] [place] [address] Dr. Hugo Yang MCH (RBC) [Entitic mass] 30.4 pg Normal 26.7-34.0 [facility] Comment on above: Performed By: #### C BC #### [facility] [address] [place] [address] Dr. Hugo Yang MCHC (RBC) [Mass/Vol] 31.6 g/dL Normal 29.9-35.2 [facility] Comment on above: Performed By: #### C BC #### [facility] [address] [place] [address] Dr. Hugo Yang MCV (RBC) [Entitic vol] 96.3 fL Normal 81.0-99.0 [facility] Comment on above: Performed By: #### C BC #### [facility] [address] [place] [address] Dr. Hugo Yang MONO # 0.6 103/ul Normal 0.3-0.8 [facility] Comment on above: Performed By: #### C BC #### [facility] [address] [place] [address] Dr. Hugo Yang Monocytes/100 WBC (Bld) 8.5 % Normal 1.7-12.0 [facility] Comment on above: Performed By: #### C BC #### [facility] [address] [place] [address] Dr. Hugo Yang NEUT # 3.8 103/ul Normal 1.4-6.5 [facility] Comment on above: Performed By: #### C BC #### [facility] [address] [place] [address] Dr. Hugo Yang Neutrophils/100 WBC (Bld) 58.4 % Normal 43.0-75.0 [facility] Comment on above: Performed By: #### C BC #### [facility] [address] [place] [address] Dr. Hugo Yang Platelet mean volume (Bld) [Entitic vol] 10.9 fL Normal 9.5-13.5 [facility] Comment on above: Performed By: #### C BC #### [facility] [address] [place] [address] Dr. Hugo Yang PLT 163 103/ul Normal 150-450 [facility] Comment on above: Performed By: #### C BC #### [facility] [address] [place] [address] Dr. Hugo Yang RBC 4.37 106/ul Normal 4.20-5.40 [facility] Comment on above: Performed By: #### C BC #### [facility] [address] [place] [address] Dr. Hugo Yang WBC 6.6 103/ul Normal 4.0-11.0 [facility] Comment on above: Performed By: #### C BC #### [facility] [address] [place] [address] Dr. Hugo Yang PROF CHEM 8 (BAS METB)on Anion gap [Moles/Vol] 13.9 mmol/L Normal [facility] Comment on above: Performed By: #### F T3, TSH #### [facility] [address] [place] [address] Dr. Hugo Yang Calcium [Mass/Vol] 9.5 mg/dL Normal 8.5-10.1 [facility] Comment on above: Performed By: #### F T3, TSH #### [facility] [address] [place] [address] Dr. Hugo Yang Chloride [Moles/Vol] 105 mmol/L Normal 98-107 [facility] Comment on above: Performed By: #### F T3, TSH #### [facility] [address] [address] [address] Hugo Yang CO2 [Moles/Vol] 27.7 mmol/L Normal 22.0-30.0 [facility] Comment on above: Performed By: #### F T3, TSH #### [facility] [address] [address] [address] Hugo Yang Creatinine [Mass/Vol] 1.19 mg/dL Critically high 0.52-1.04 [facility] Comment on above: Performed By: #### F T3, TSH #### [facility] [address] [address] [address] Hugo Yang EGFR-AF TONGAN 53 mL/min/1.73m2 Critically low >=60 [facility] Comment on above: Performed By: #### F T3, TSH #### [facility] [address] [place] [address] Dr. Hugo Yang EGFR-NON AF TONGAN 44 mL/min/1.73m2 Critically low >=60 [facility] Comment on above: Performed By: #### F T3, TSH #### [facility] [address] [address] [address] Hugo Yang Glucose [Mass/Vol] 112 mg/dL Critically high 74-106 [facility] Comment on above: Performed By: #### F T3, TSH #### [facility] [address] [address] [address] Hugo Yang Potassium [Moles/Vol] 4.6 mmol/L Normal 3.4-5.0 [facility] Comment on above: Performed By: #### F T3, TSH #### [facility] [address] [address] [address] Hugo Yang Sodium [Moles/Vol] 142 mmol/L Normal 137-145 [facility] Comment on above: Performed By: #### F T3, TSH #### [facility] [address] [place] [address] Dr. Hugo Yang Urea nitrogen [Mass/Vol] 28.0 mg/dL Critically high 7.0-18.0 [facility] Comment on above: Performed By: #### F T3, TSH #### [facility] [address], [place] [address] Dr. Hugo Yang Urea nitrogen/Creatinin e [Mass ratio] 23.5 mg/mg Normal [facility] Comment on above: Performed By: #### F T3, TSH #### [facility] [address], [place] [address] Dr. Hugo Yang TROPONIN, HIGH SENSITIVITYon 06-04-2021 HSTROP 27.1 pg/mL Normal 4.0-35.5 [facility] Comment on above: Result Comment: CUT- OFF POINTS HAVE BEEN ESTABLISHED BASED ON THE FOURTH UNIVERSAL DEFINITIONS OF MYOCARDIAL INFARCTION. THE UPPER REFERENCE LIMIT (URL) OF TROPONIN, DEFINED THE 99TH PERCENTILE OF cTnI DISTRIBUTION IN A REFERENCE POPULATION, HAS BEEN CONFIRMED THE DECISION THRESHOLD FOR IN DIAGNOSIS. Performed By: #### F T3, TSH #### [facility] [address] [address] [address] Hugo Yang XR CHEST 1 Von [...] compared to prior study. Electronically authenticated by: NAEEM GARCIA Date: 2021-06-04 11:09 Normal [facility] Cardiovascular Lab Reporton 12-28-2020 Cardiovascular Lab Report [facility] Patient Name: [facility] MR #: [id number] Physician: Keanu Islas MD Department of Service Date: 12/28/2020 Medicine Birthdate: 1940 Division of Room #: CC Cardiology Adult Cardiovascular Services [facility] [address] [address] Cardiovascular Laboratory Report AV NODE ABLATION PROCEDURE [...] prepped and draped. Under ultrasound guidance, an 8-[place] Citizen venous access was procured, and a short [...] Islas MD Date Trans: 12/28/2020 04:43 P/mmo [id number] cc: Ole Yang M.D. [address] [place] [address] [facility] Cardiovascular Lab Reporton 11-19-2020 Cardiovascular Lab Report [facility] Patient Name: [facility] MR #: [id number] Physician: Keanu Islas MD Department of Service Date: 11/19/2020 Medicine Birthdate: 1940 Division of Room #: CC Cardiology Adult Cardiovascular Services [address] [place] [address] Cardiovascular Laboratory Report PACEMAKER IMPLANT PROCEDURE NOTE DATE OF PROCEDURE: 11/19/20 PERFORMING PHYSICIAN: Dr. Keanu Islas CONSENT: Patient LOCATION: EP Lab PROCEDURE PERFORMED: 1. Implantation of pacemaker ([employer]) 2. Ultrasound guided venous access INDICATIONS: [...] using modified seldinger technique using a 5 [place] Citizen micro-puncture needle on one occasion and 0.35 wire was placed. Local infiltration of 1% Lidocaine was performed, and an incision was created in the left upper chest. Dissection was then performed using cautery down to the fascial plane above the muscle. A small pocket was created for the device. 8 [place] Citizen Safesheath was placed over the wire. Then a His sheath was advanced over a glide wire into the right ventricle. The wire and dilator was then removed. An active fixation [employer] pacing lead was then delivered through the His sheath to the right ventricle. I identified an area where pacing revealed a QRS of 120ms in unipolar configuration. After confirmation of lead position on orthogonal views (PATEL and HEBREW) to confirm septal position, the screw was [...] immediate procedural complications were noted. Device info: [employer] Accolade MRI EL SR IS1 Model# L310 Serial# [id number] RV lead: Model# [id number] [id number] (59cms) Serial# [id number] Sensin.3mV Threshold: 0.6V@0.4ms Impedance: 655 Ohms POST [...] 11/19/2020 (more content not included)... Normal [facility] Encounters Encounter Date Encounter Type Care Provider Facility Start: 08-07-2023 End: 08-07-2023 ambulatory CLAUDIO DENISE [facility] Start: 08-04-2023 End: 08-04-2023 ambulatory KEANU ISLAS [facility] Start: 07-27-2023 ambulatory KEANU ISLAS [facility] Start: 07-27-2023 Encounter for preprocedural cardiovascular examination KEANU ISLAS [facility] Start: 07-22-2023 End: 07-22-2023 ambulatory OLE YANG Not Available Start: 07-08-2023 End: [facility]20[facility] Start: 05-27-2023 End: 05-27-2023 ambulatory BRAD ANDERSON Not Available Start: 04-27-2023 End: 04-27-2023 ambulatory [facility] Start: 04-27-2023 End: 04-27-2023 Office outpatient visit 15 minutes Eliel S [facility] OD Work Phone: [facility] Comment on above: Esotropia of right e ye (Primary Dx); Right abducens nerve palsy; Double vision Start: 02-19-2023 End: 02-19-2023 ambulatory OLE YANG Not Available Start: 02-11-2023 End: 02-11-2023 ambulatory OLE Devlin YANG Not Available Start: 01-28-2023 End: 01-28-2023 ambulatory OLE Devlin YANG Not Available Start: 01-20-2023 End: [facility]: 12-30-2022 End: 12-30-2022 ambulatory [facility] Start: 05-14-2022 End: 05-15-2022 ambulatory PRUDENCIO MARTINEZ Facility:[facility] Start: 03-19-2022 End: 03-20-[address] BRAD ANDERSON Facility:[facility] Start: 12-23-2021 End: 12-24-2021 ambulatory SHELDON OGTTLIEB Facility:[facility] Start: 11-25-2021 End: 11-26-2021 ambulatory PRUDENCIO MARTINEZ Facility:[facility] Start: 09-04-2021 End: 09-05-2021 ambulatory SHELDON GOTTLIEB Facility:[facility] Start: 08-23-2021 [facility]: 08-23-2021 Encounter for preprocedural laboratory examination SHELDON GOTTLIEB [facility] Start: 08-22-2021 End: 08-23-2021 ambulatory KEANU ISLAS Facility:[facility] Start: 08-21-2021 End: 08-22-2021 ambulatory KEANU ISLAS Facility:[facility] Start: 08-20-2021 End: 08-21-2021 ambulatory SHELDON GOTTLIEB Facility:[facility] Start: 08-20-2021 End: 08-21-2021 Encounter for other preprocedural examination SHELDON GOTTLIEB Facility:[facility] Start: 07-30-2021 End: 07-31-2021 ambulatory SHELDON GOTTLIEB Facility:[facility] Start: 06-28-2021 End: 06-29-2021 ambulatory LARRY ANTON Facility:[facility] Start: 06-20-2021 Encounter for other specified special examinations SHELDON GOTTLIEB [facility] Start: 06-18-2021 End: 06-19-2021 ambulatory SHELDON GOTTLIEB Facility:[facility] Start: 06-18-2021 End: 06-19-2021 Encounter for other specified special examinations LARRY ANTON Facility:[facility] Start: 06-17-2021 End: 06-17-[address] MAYRA CHOI Facility:[facility] Start: 06-12-2021 End: 06-13-2021 ambulatory SHELDON GOTTLIEB Facility:[facility] Start: 06-04-2021 End: 06-04-2021 ambulatory GABRIEL GREEN Facility:[facility] Start: 12-28-2020 End: 12-29-2020 ambulatory KEANU ISLAS Facility:[facility] Start: 11-19-2020 End: 11-20-2020 ambulatory KEANU ISLAS Facility:[facility] Procedures Date Procedure Procedure Detail Performing Clinician Start: 04-27-2023 Follow-up visit Follow-up ELIEL NICHOLS Plan of Treatment Date Care Activity Detail Author Start: 04-26-2024 Tobacco Screening Tobacco Screening [facility] [employer] [facility] Start: 12-04-2023 Adult BMI Screening Adult BMI Screen ing [facility] [employer] Start: 08-17-2007 Fall Risk Screening Fall Risk Screen ing [facility] Start: 1961 DTaP,Tdap and Td Vaccines (1 - Tdap) DTaP,Tdap and Td Vaccines (1 - Tdap) [facility] Start: 1960 Adult BMI Follow Up Plan Adult BMI Follow Up Plan [facility] Start: 1954 Depression Screening Depression Scre ening [facility] Start: 1940 Medicare Annual Wellness Visit Medicare [facility] Payers Date Payer Category Payer Unknown COMM[employer]CIAL [employer]ME RCIAL - GENERIC PLAN [id number] 2022-Present [phone] [address] [address] [place] [address] [id number] 2004 Medicare MEDICARE MEDICAR E PART A & B [id number] 2004-Present [phone] [address] [place] [address] [id number] 1959 Medicare [id number] 1959 Unknown [id number] 1940 Unknown [id number] 2.16.840.1.279059.3.579.2.647 1940 Unknown [id number] 2.16.840.1.021724.3.579.2.647 1942 Unknown [id number] 2.16.840.1.003168.3.579.2.647 1942 Unknown [id number] 2.16.840.1.336087.3.579.2.593 1942 Unknown [id number] 2.16.840.1.704043.3.579.2.593 1942 Unknown [id number] 2.16.840.1.825150.3.579.2.593 1942 Unknown [id number] 2.16.840.1.057899.3.579.2.593 1942 Unknown [id number] 2.16.840.1.746546.3.579.2.593 1942 Unknown [id number] 2.16.840.1.439846.3.579.2.593 1942 Unknown [id number] 2.16.840.1.642690.3.579.2.593 1942 Unknown [id number] 2.16.840.1.628513.3.579.2.593 1942 Unknown [id number] 2.16.840.1.094249.3.579.2.593 1942 Unknown [id number] 2.16.840.1.359904.3.579.2.593 1942 Unknown [id number] 2.16.840.1.883365.3.579.2.593 1942 Unknown [id number] 2.16.840.1.962827.3.579.2.593 1942 Unknown [id number] 2.16.840.1.551158.3.579.2.593 1942 Unknown [id number] 2.16.840.1.746673.3.579.2.593 1942 Unknown [id number] 2.16.840.1.713768.3.579.2.593 1942 Unknown [id number] 2.16.840.1.096849.3.579.2.1286 1942 Unknown [id number] 2.16.840.1.529177.3.579.2.1259 1942 Unknown [id number] 2.16.840.1.437314.3.579.2.1259 1942 Unknown [id number] 2.16.840.1.846891.3.579.2.1259 1942 Unknown [id number] 2.16.840.1.101883.3.579.2.1259 1942 Unknown [id number] 2.16.840.1.402437.3.579.2.1259 Social History Date Type Detail Facility Start: 08-13-[address] [facility] Never smoked tobacco [facility] Start: 08-13-2022 Tobacco use and exposure Smokeless tobacco non-user [facility] [employer] [facility] Start: 04-28-2023 [facility] of [facility] Start: 04-28-2023 [facility] Start: 1940 Sex Assigned At Not on file [facility] Clinical Notes 06-17-2021 to 08-07-2023 Eliel Nichols, OD - 04/27/2023 11:00 AM EDT Note Date & Type Note Facility 08-07-2023 Note [facility] follow-up note Reason for cardiology consult: Patient here for follow up echo and stress test. Tests were ordered last month for chest cold and SOB . Chief Complaint: Extreme fatigue and dyspnea on exertion HPI: Lluvia Moreno is a 82 y.o. female patient states that she thinks that she had cold prior to last visit and she was coughing associated with the dyspnea on exertion. Her cough is better however she still has significant dyspnea on exertion and she gets tired and fatigued easily with any exertion. She denies orthopnea or paroxysmal nocturnal dyspnea or dizziness or palpitations. 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 The patient admits to drinking a lot of caffeine, she does not drink much water or other fluids ROS: All systems were reviewed and they were negative except for the positive findings noted above in the history Past Medical History She has a past medical history of Abnormal ECG, Arrhythmia, Atrial fibrillation (CMS/HCC), CHF (congestive heart failure) (CMS/HCC), Coronary artery disease, and Heart valve disease. Surgical History She has a past surgical history that includes Hysterectomy; Knee surgery; Cardiac catheterization; Ablation of dysrhythmic focus; Insert / replace / remove pacemaker; and Cardioversion. Social History She reports that she has never smoked. She has never used smokeless tobacco. She reports that she does not currently use alcohol. She reports that she does not use drugs. Family History Family History Problem Relation Name Age of Onset Colon cancer Father Coronary artery disease Brother Hypertension Brother Kidney cancer Brother Allergies Patient has no known allergies. Medications Current Outpatient Medications: apixaban (Eliquis) 5 mg tablet, Take 1 tablet twice a day by oral route for 90 days., Disp: , Rfl: aspirin 81 mg EC tablet, Take 1 tablet every day by oral route., Disp: , Rfl: atorvastatin (Lipitor) 80 mg tablet, Take 1 tablet by mouth at bedtime., Disp: , Rfl: yrwbqhnknq-hoyiditk-bxmqbxwxpi (Breztri Aerosphere) 160-9-4.8 mcg/actuation HFA aerosol inhaler, Inhale., Disp: , Rfl: bumetanide (Bumex) 1 mg tablet, if needed., Disp: , Rfl: cholecalciferol (Vitamin D-3) 50 MCG (2000 UT) tablet, Take 1 tablet every day by oral route., Disp: , Rfl: lisinopril 5 mg tablet, Take 1 tablet by mouth in the morning., Disp: , Rfl: LORazepam (Ativan) 0.5 mg tablet, TAKE ONE TABLET BY MOUTH EVERY 6 HOURS NEEDED FOR ANXIETY ATTACKS, Disp: , Rfl: methIMAzole (Tapazole) 10 mg tablet, Take 5 mg by mouth 4 (four) times a week., Disp: , Rfl: metoprolol succinate XL (Toprol-XL) 50 mg 24 hr tablet, Take 1 tablet by mouth in the morning., Disp: , Rfl: PARoxetine (Paxil) 20 mg tablet, 1 tablet every day by oral route for 90 days., Disp: , Rfl: spironolactone (Aldactone) 25 mg tablet, Take 1 tablet (25 mg) by mouth once daily as directed., Disp: 90 tablet, Rfl: 3 Last Recorded Vitals Visit Vitals Smoking Status Never Physical Examination: GENERAL: alert and oriented x3, well developed, in no acute distress. HEAD: atraumatic, normocephalic. EYES: BRANNON, EOMI. NECK: trachea midline, no JVD present, no carotid bruits present. CARDIAC: S1, S2 present. RRR. No murmur, rubs, or gallops. RESPIRATORY: CTAB, no increased effort of breathing, no rales, rhonchi, or wheezing. ABDOMEN: soft, nontender, nondistended. EXTREMITIES: no lower extremity edema, No rash/skin discoloration present. NEURO: strength/sensation equal and symmetric in bilateral upper and lower extremities. PSYCH: appropriate mood, affect, and judgement. Labs: 07/08/2023 white blood count 6.3, hemoglobin 13, hematocrit 41.6, platelets 205 Sodium 140, potassium 5.3, glucose 140, BUN 30, creatinine 1.35 GFR 46, calcium 9.9, ALT 48, AST 35, alk phos 91, total protein 7.4 BNP 1488 normal less than 1800, Last Images: Lexiscan nuclear stress test 08/04/2023 Rest and peak stress ECG findings were normal and the exercise portion of the study was normal per attending physician Dr. Islas . For more details please see separate cardiac stress test report. FINDINGS: QUALITY OF STUDY: Excellent. PERFUSION DEFECT: None. LOCATION: N/A SIZE: N/A. SEVERITY: N/A. TYPE: N/A. WALL MOTION: Normal. LV SIZE: Normal. 65 mL. TID / TCD: None; 1.0 LVEF: Normal. Calculated EF 71%. SUMMARY: Myocardial perfusion imaging study is NORMAL. CONCLUSION: 1. Normal nuclear medicine myocardial perfusion scan. Dictated by: Naeem Garcia M.D. on 08/06/2023 at 07:25 XR CHEST 2 VIEWS === 07/08/23 === No acute cardiopulmonary process Assessment and Plan: Dyspnea on exertion, I do not think it is related to cardiac issue. I think it represents COPD exacerbation probably because of acute bronchitis. As noted above her stress test was normal showing normal ejection fraction of 71%, BNP and chest x-ray a (more content not included)... [facility] 07-08-2023 Note Please let Lluvia know Chest x ray looks good- no fluid or pneumonia Labs look ok- Please forward all these results to her PCP [facility] 07-08-2023 Note If cardiac studies a re without any acute concerns she may need to F/U with pulmonary for evaluation of CLAIRE [facility] 07-08-2023 Note Device interrogation s reviewed Device check q 6 months [facility] 07-08-2023 Note Lexiscan stress test to assess cardiac perfusion for any significant defect that would warrant a cardiac cath with possible PCI for concerning stenosis Continue GDMT- ASA, lipitor toprol [facility] 07-08-2023 Note HTN is well controll ed 130/84- she does admit at home b/p is lower 100-120/70-80 denied any lightheadedness/dizziness or syncope. Continue lisinopril, toprol and aldactone [facility] 07-08-2023 Note Repeat echocardiogra m to assess MR in light of worsening CLAIRE [facility] 07-08-2023 Note Remains on eliquis w ithout any bleeding tendencies S/P AV node ablation and STAFF PSYCHIATRIST-D is 98% Bi-V pacing per device interrogation [facility] 07-08-2023 Note [facility] III, currently appears euvolemic [...] cardiac cath is needed. RTC after testing [facility] 07-08-2023 Note [facility]TP CARDIOLOGY PROGR ESS NOTE HPI: Lluvia Moreno is a 82 y.o. female here for routine F/U HPI 82 yo female presents today with daughter for f/U for known Chronic HFrEF- 30-45% s/p STAFF PSYCHIATRIST, Afib s/p AV node ablation, CAD s/p [...] takes bumex as needed, Device check 07/22/2022: STAFF PSYCHIATRIST-D pacing 92%, normal device function stable lead [...] and so the device was upgraded to STAFF PSYCHIATRIST-D and old RV pacing lead was extracted. Segment of this elevated echocardiogram was performed which showed improvement of EF from 30 to 45%. Device check performed on July 06, 2019 Maritza shows and pacemaker programmed at 70 bpm. Thresholds were noted to be 0.6 and 1.1V respectively. Patient underwent BiV STAFF PSYCHIATRIST-D upgrade on 08/21/2021 1. Successful BiV-ICD implantation [...] stenosis. Visit V (more content not included)... 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 Will send a [...] (TOPROL XL) 50 mg 24 hr tablet multivitamin,yh-fnjh-Rw-FA-min 27-0.4 mg tablet 1 (one) time each [...] history of COPD (chronic obstructive pulmonary disease) ([facility]) and Hypertension. She has a [...] accurate and complete. documented in this encounter [facility] Trigemina 12-30-2022 Note [place] [facility] Consul t Note Reason for Consultation: sAlexp STAFF PSYCHIATRIST-D upgrade, 6-month follow-up 12/30/22: Has been doing well She is on BB and device shows NSVT x1 She has some CLAIRE and LE edema which is chronic. It is stable today , takes bumex as needed, Device check 07/22/2022: STAFF PSYCHIATRIST-D pacing 92%, normal device function stable lead [...] and so the device was upgraded to STAFF PSYCHIATRIST-D and old RV pacing lead was extracted. Segment of this elevated echocardiogram was performed which showed improvement of EF from 30 to 45%. Device check performed on July 06, 2019July shows and pacemaker programmed at 70 bpm. Thresholds were noted to be 0.6 and 1.1V respectively. Patient underwent BiV STAFF PSYCHIATRIST-D upgrade on 08/21/2021 1. Successful BiV-ICD implantation [...] tablet by mouth (more content not included)... [facility] 12-30-2022 Note Patient here for 6 m [...] All other systems reviewed and are negative. [facility] 08-22-2021 Note EXAMINATION: XR CHES T 2 [...] abnormality. 2. Stable cardiomegaly. Electronically authenticated by: NAEEM GARCIA Date: 2021-08-22 17:39 [facility] 06-17-2021 Note PROCEDURE: XR FEMUR LT HISTORY: Pain in lower limb ; anterior posterior mid thigh pain for one week COMPARISON: None. FINDINGS: BONES:Moderate degenerative changes of the hip joint. Prior knee replacement. No fracture, dislocation, or bone lesion. SOFT TISSUES:No visible soft tissue swelling. EFFUSION:None visible. OTHER: Negative. IMPRESSION: 1. No appreciable acute abnormality. Electronically authenticated by: NAEEM GARCIA Date: 2021-06-17 11:09 [facility] Evaluation note Diagnosis Esotropia of right eye- Primary Unspecified esotropia Right abducens nerve palsy Double vision Diplopia documented in this encounter [facility]* Attachments The following attachments cannot be sent through Care Everywhere. * Double Vision (Georgian) [facility] Summary Purpose Family History No Family [...] and content) DATE CREATED AUTHOR 10/15/2021 [facility] DATE CREATED AUTHOR AUTHOR'S ORGANIZ ATION [facility]/18/2022 [facility] DATE CREATED AUTHOR AUTHOR'S ORGANIZ ATION 04/27/2023 [facility] DATE CREATED AUTHOR AUTHOR'S ORGANIZ ATION 07/23/2023 [facility] EPIC DATE CREATED AUTHOR AUTHOR'S ORGANIZ ATION 08/09/2023 [facility] Reason for Visit (unrecogniz ed section and content) Reason Comments Follow-up Care Teams (unrecognized sec tion and content) It Consulting Director Relationship Specialty Start Date End Date Ole Yang MD [address] [facility] [address] [place] [id number] (work) PCP - General Internal Medicine 08/13/22 FOR [...] BE BASED ON THE PRIMARY CLINICAL RECORDS. [employer] [facility]. provides no warranty or guarantee of the accuracy or completeness of information in this document.
[2023-08-13 11:31] LABS: Thyroid Stimulating Hormone 4.195 uIU/mL (0.358-3.740)
== END 2023-08-13 10:11 | disposition home or self-care (01) ==
LOC: LAB 10:11
PROVIDERS: PCP Internal Medicine; Visit Provider Internal Medicine Cardiovascular Disease
DX: E05.90 Thyrotoxicosis, unspecified without thyrotoxic crisis or storm (principal)
CPT/HCPCS: 36415; 84443

== ENCOUNTER 2023-08-28 12:25 | Observation (INO) | payer MEDICARE, OTHER, SELFPAY ==
[2023-08-28] VITALS (12 sets, daily range): BP systolic 121–164; BP diastolic 78–98; PULSE 68–80; TEMP 36.4–36.8; O2SAT 14–98; BMI 26.9; BMI 26.7
--- NOTE | 2023-08-28 12:40 | ECG_ITS ---
[facility] Test Date: 2023-08-28 Pat Name: SALINA MORENO Department: Room: - Gender: Female Hedis Analyst: : 1940 Requested By: [id number] Order Number: [id number] Reading MD: KRISTYN HUTCHINSON Measurements Intervals [place] Rate: 70 P: -[id number] CA: -[id number] QRS: 111 QRSD: 114 T: 54 QT: 438 QTc: 458 Interpretive Statements [id number] Electronic ventricular pacemaker 9120 atypical ECG Compared to ECG 06/04/2021 10:10:24 No significant changes Electronically Signed On 08-29-2023 13:19:25 EDT by KRISTYN HUTCHINSON
--- NOTE | 2023-08-28 12:42 | ED_ITS ---
HPI - SOB/Dyspnea General Chief Complaint: Shortness of Breath/Dyspnea Stated Complaint: DIFFICULTY BREATHING Time Seen by Provider: 08/28/23 12:40 Source: patient Mode of arrival: ambulance Limitations: no limitations History of Present Illness HPI Narrative: The patient presented to us with a shortness of breath for a week, she mentioned that she already was evaluated by her primary care doctor for COPD and she was supposed to get some steroid and oxygen but the patient had some issue with waiting so long and she left, regarding the patient oxygen the patient mentioned that she is supposed to get home oxygen but she still in the process of being approved Patient have on his history of nonproductive cough No nausea no vomiting no chest pain Upon arrival of the EMS the patient pulse ox was low but when she was on oxygen she was at 97% and right now she is 98% in room air Patient received no breathing treatment Related Data Allergies Allergy/AdvReac Type Severity Reaction Status Date / Time No Known Drug Allergies Allergy Verified 08/28/23 12:40 Review of Systems ROS Status of ROS 10 or more systems reviewed and unremark able except as noted in history and below Exam Narrative Exam Narrative: Nurses notes and vital signs reviewed and patient is not hypoxic. General: Well-appearing and in no apparent distress. Skin: Warm, dry, no pallor noted. No rash. Head: Normocephalic, atraumatic. Neck: Supple, non-tender. Eye: Pupils are equal, round and EOMI. No scleral icterus. Ears, Nose, Mouth, and Throat: TM are clear, no nasal mucosal hypertrophy. Oral mucosa is moist, no posterior oropharynx erythema, uvula is mid-line Cardiovascular: Regular Rate and Rhythm without murmur, gallop or rub. Respiratory: Distant breathing sound bilaterally Lungs are clear to auscultation, no wheezing, rales or rhonchi Chest Wall: no tenderness Back: No midline thoracic or lumbar vertebral tenderness. No CVA tenderness Musculoskeletal: normal ROM, no calf or popliteal tenderness, no lower extremity edema/swelling GI: Abdomen is soft, non-distended. Normal bowel sounds. No masses appreciated. No tenderness to palpation. No rebound, guarding, or rigidity noted. Neurological: A&O x4. No cranial nerve dysfunction observed. No truncal ataxia. Moves all extremities. Sensation intact. Psychiatric: Cooperative and interactive. Normal mood and affect. Constitutional Vital Signs, click to edit/add: Last Vital Signs Temp 98.2 F 08/28/23 12:35 Pulse 78 08/28/23 15:18 Resp 12 08/28/23 15:18 BP 153/98 H 08/28/23 15:18 Pulse Ox 96 08/28/23 15:18 O2 Del Method Room Air 08/28/23 14:45 Course Vital Signs Vital signs: Vital Signs Temperature 98.2 F 08/28/23 12:35 Pulse Rate 70 08/28/23 12:35 Respiratory Rate 14 08/28/23 12:35 Blood Pressure 121/97 H 08/28/23 12:35 Pulse Oximetry 98 08/28/23 12:35 Oxygen Delivery Method Room Air 08/28/23 12:35 Temperature 98.2 F 08/28/23 12:35 Pulse Rate 78 08/28/23 15:18 Respiratory Rate 12 08/28/23 15:18 Blood Pressure 153/98 H 08/28/23 15:18 Pulse Oximetry 96 08/28/23 15:18 Oxygen Delivery Method Room Air 08/28/23 14:45 MDM - SOB/Dyspnea MDM Narrative Medical decision making narrative: EKG showing paced rhythm with a heart rate of [address] elevation or depression By the time the patient came to the ER her pulse ox was 98% at room air after she was on oxygen 3 L at least The patient CBC chemistry as well as EKG and troponin showed no acute pathology but she is definitely hypoxemic on exertion just with minimal activity at the bedside the patient pulse ox dropped to the 80s at least Patient need to have a home oxygen established before she get discharged and right now she will be admitted for COPD exacerbation as well The patient case was discussed with and he agreed with above- mentioned plan Lab Data Labs: Lab Results 08/28/23 Range/Units 12:45 WBC 7.1 (4.0-11.0) 10^3/uL RBC 4.31 (4.20-5.40) 10^6/uL Hgb 13.6 (12.0-16.0) g/dL Hct 41.8 (36.0-48.0) % MCV 97.0 (81.0-99.0) fL MCH 31.6 (26.7-34.0) pg MCHC 32.5 (29.9-35.2) g/dL RDW 12.9 (11.0-15.0) % Plt Count 194 (150-450) 10^3/uL MPV 10.6 (9.5-13.5) fL Neut % (Auto) 70.5 (43.0-75.0) % Lymph % (Auto) 17.6 L (20.5-60.0) % [place] % (Auto) 7.8 (1.7-12.0) % Eos % (Auto) 3.2 (0.9-7.0) % Baso % (Auto) 0.6 (0.2-2.0) % Neut # (Auto) 5.0 (1.4-6.5) 10^3/uL Lymph # (Auto) 1.3 (1.2-3.8) 10^3/uL [place] # (Auto) 0.6 (0.3-0.8) 10^3/uL Eos # (Auto) 0.2 (0.0-0.7) 10^3/uL Baso # (Auto) 0.0 (0.0-0.1) 10^3/uL Abs Immat Gran (auto) 0.02 (0.00-0.03) 10^3/uL Imm/Tot Granulo (auto) 0.3 (0.0-0.5) % Sodium 140 (136-145) mmol/L Potassium 4.8 (3.5-5.1) mmol/L Chloride 103 (98-107) mmol/L Carbon Dioxide 28.0 (21.0-32.0) mmol/L Anion Gap 13.8 BUN 25.0 H (7.0-18.0) mg/dL Creatinine 1.23 H (0.55-1.02) mg/dL Est GFR ( Amer) 51 L (>=60) Est GFR (Non-Af Amer) 42 L (>=60) BUN/Creatinine Ratio 20.3 Glucose 100 (74-106) mg/dL Calcium 9.4 (8.5-10.1) mg/dL Total Bilirubin 0.7 (0.2-1.0) mg/dL AST 26 (15-37) U/L ALT 32 (14-59) U/L Alkaline Phosphatase 97 (46-116) U/L Troponin I High Sens 26.0 (4.0-51.3) pg/mL Total Protein 7.3 (6.4-8.2) g/dL Albumin 3.6 (3.4-5.0) g/dL Globulin 3.7 g/dL Albumin/Globulin Ratio 1.0 Discharge Plan Discharge Chief Complaint: Shortness of Breath/Dyspnea Clinical Impression: COPD exacerbation, Dependence on supplemental oxygen, Hypoxic episode Patient Disposition: Admitted as Observation Time of Disposition Decision: 16:06
[2023-08-28 12:52] LABS: Basophils Percent Auto 0.6 % (0.2-2.0); Eosinophils Absolute Auto 0.2 10^3/uL (0.0-0.7); Eosinophils Percent Auto 3.2 % (0.9-7.0); Hematocrit 41.8 % (36.0-48.0); Hemoglobin 13.6 g/dL (12.0-16.0); Immature Granulocytes Abs Auto 0.02 10^3/uL (0.00-0.03); Immature Granulocytes Pct Auto 0.3 % (0.0-0.5); Lymphocytes Absolute Auto 1.3 10^3/uL (1.2-3.8); Lymphocytes Percent Auto 17.6 % (20.5-60.0); Mean Corpuscular HGB Conc 32.5 g/dL (29.9-35.2); Mean Corpuscular Hemoglobin 31.6 pg (26.7-34.0); Mean Platelet Volume 10.6 fL (9.5-13.5); Monocytes Absolute Auto 0.6 10^3/uL (0.3-0.8); Monocytes Percent Auto 7.8 % (1.7-12.0); Neutrophils Percent Auto 70.5 % (43.0-75.0); Platelet Count 194 10^3/uL (150-450); Red Blood Count 4.31 10^6/uL (4.20-5.40); Red Cell Distribution Width 12.9 % (11.0-15.0); White Blood Count 7.1 10^3/uL (4.0-11.0)
--- NOTE | 2023-08-28 12:52 | XR_ITS ---
The [address] [address] Patient Name: SALINA MORENO MRN: [id number] date: 1940 Sex: F Assigned Patient Location: ER Current Patient Location: ER Accession/Order Number: [id number] Exam Date: 08/28/2023 12:50 Report Date: 08/28/2023 13:28 At the request of: AMIE VERDIN Procedure: XR chest 1V EXAMINATION: XR chest 1V HISTORY: sob COMPARISON: No relevant comparison available. TECHNIQUE: AP portable FINDINGS: LUNGS: No significant pulmonary parenchymal abnormalities. VASCULATURE: No increased pulmonary vasculature. PLEURA: No pneumothorax, effusion, or pleural thickening. Elevated right hemidiaphragm CARDIAC: No cardiomegaly or cardiac silhouette abnormality. MEDIASTINUM: No visible mass or adenopathy. Left bipolar pacemaker BONES: No fracture or visible bone lesion. Severe bilateral glenohumeral osteoarthritis OTHER: Negative. XR/XR chest 1V IMPRESSION: The right hemidiaphragm Clear lungs Electronically authenticated by: ROLANDO MONTERO Date: 08/28/2023 13:28
[2023-08-28 13:18] LABS: Alanine Aminotransferase 32 U/L (14-59); Albumin Level 3.6 g/dL (3.4-5.0); Alkaline Phosphatase 97 U/L (46-116); Anion Gap 13.8; Aspartate Amino Transferase 26 U/L (15-37); BUN Creatinine Ratio 20.3; Bilirubin Total 0.7 mg/dL (0.2-1.0); Calcium 9.4 mg/dL (8.5-10.1); Chloride 103 mmol/L (98-107); Estimated GFR (African America 51 (>=60); Estimated GFR (Non-African Ame 42 (>=60); Globulin 3.7 g/dL; Glucose 100 mg/dL (74-106); Potassium 4.8 mmol/L (3.5-5.1); Sodium 140 mmol/L (136-145); Total Protein 7.3 g/dL (6.4-8.2)
[2023-08-28] MEDS: METHYLPREDNISOLONE SOD SUCC PF 125 MG/2 ML VIAL 40 MG IVP (14:35)
[2023-08-28] MEDS: IPRATROPIUM/ALBUTEROL SULFATE 3 ML AMPUL.NEB IH ×3 (14:40→23:04)
[2023-08-28] MEDS: METHYLPREDNISOLONE SOD SUCC PF 125 MG/2 ML VIAL 60 MG IVP (20:11)
[2023-08-28] MEDS: LEVOFLOXACIN IN DEXTROSE 5 % 750 MG/150 ML IV.SOLN 100 MG IV (20:11)
[2023-08-28] MEDS: APIXABAN 5 MG TABLET PO (20:11)
[2023-08-29] VITALS (9 sets, daily range): BP systolic 107–130; BP diastolic 59–73; PULSE 69–90; TEMP 36.5–36.7; O2SAT 92–98
[2023-08-29] MEDS: METHYLPREDNISOLONE SOD SUCC PF 125 MG/2 ML VIAL 60 MG IVP ×2 (02:30→10:04)
[2023-08-29 05:54] LABS: Anion Gap 11.9; BUN Creatinine Ratio 19.1; Carbon Dioxide 26.9 mmol/L (21.0-32.0); Chloride 101 mmol/L (98-107); Estimated GFR (African America 40 (>=60); Estimated GFR (Non-African Ame 33 (>=60); Glucose 194 mg/dL (74-106); Potassium 4.8 mmol/L (3.5-5.1); Sodium 135 mmol/L (136-145)
[2023-08-29 06:01] LABS: Hematocrit 39.2 % (36.0-48.0); Hemoglobin 12.6 g/dL (12.0-16.0); Immature Granulocytes Abs Auto 0.04 10^3/uL (0.00-0.03); Immature Granulocytes Pct Auto 0.5 % (0.0-0.5); Lymphocytes Absolute Auto 0.4 10^3/uL (1.2-3.8); Lymphocytes Percent Auto 5.9 % (20.5-60.0); Mean Corpuscular HGB Conc 32.1 g/dL (29.9-35.2); Mean Corpuscular Hemoglobin 30.7 pg (26.7-34.0); Mean Corpuscular Volume 95.6 fL (81.0-99.0); Mean Platelet Volume 10.9 fL (9.5-13.5); Monocytes Absolute Auto 0.1 10^3/uL (0.3-0.8); Monocytes Percent Auto 1.2 % (1.7-12.0); Neutrophils Absolute Auto 6.9 10^3/uL (1.4-6.5); Neutrophils Percent Auto 92.4 % (43.0-75.0); Platelet Count 175 10^3/uL (150-450); Red Cell Distribution Width 12.7 % (11.0-15.0); White Blood Count 7.5 10^3/uL (4.0-11.0)
[2023-08-29] MEDS: IPRATROPIUM/ALBUTEROL SULFATE 3 ML AMPUL.NEB IH (07:31)
[2023-08-29 09:09] LABS: Troponin I High Sensitivity 24.2 pg/mL (4.0-51.3)
[2023-08-29 09:18] LABS: Glucometer 259 mg/dL (74-106)
[2023-08-29] MEDS: APIXABAN 5 MG TABLET PO (09:18)
[2023-08-29] MEDS: SPIRONOLACTONE 25 MG TABLET PO (09:18)
--- NOTE | 2023-08-29 12:39 | P.HP_ITS ---
HPI H&P: HPI History of Present Illness Chief complaint: DIFFICULTY BREATHING, HYPOXEMIA, COPD EXACERBATION Narrative: Patient may have an acute exacerbation of COPD. Increasing cough and shortness of breath. Unable to improve at home with her usual treatments. When I saw the patient up on the medical surgical floor, reviewed her labs and vitals prior, surprisingly she looks great, was sitting up in bed, no conversational dyspnea, feels improved from the previous day. Opioid HPI Opioid Management Most Recent Pain and Opioid Data: Last Pain Assessment 08/29/23 10:08 Last ORT Total Score 0 08/28/23 17:33 Last ORT Risk Category Low Risk 08/28/23 17:33 Review of Systems ROS Status of ROS 10 or more systems reviewed and unremark able except as noted in history and below [facility] Medical History (Updated 08/28/23 @ 18:27 by Lo Knapp RN) CHF (congestive heart failure) ?I50.9 - Heart failure, unspecified (ICD-10) HTN (hypertension) ?I10 - Essential (primary) hypertension (ICD-10) CVA (cerebral vascular accident) ?I63.9 - Cerebral infarction, unspecified (ICD-10) COPD (chronic obstructive pulmonary disease) ?J44.9 - Chronic obstructive pulmonary disease, unspecified (ICD-10) Cardiac defibrillator in place ?Z95.810 - Presence of automatic (implantable) cardiac defibrillator (ICD-10) A-fib ?I48.91 - Unspecified atrial fibrillation (ICD-10) Surgical History (Updated 08/28/23 @ 18:27 by Lo Knapp, CHERI) Hx of appendectomy ?Z90.49 - Acquired absence of other specified parts of digestive tract (ICD- 10) History of hysterectomy ?Z90.710 - Acquired absence of both cervix and uterus (ICD-10) Family History (Updated 08/28/23 @ 17:55 by Lo Knapp, CHERI) Other Family history of CHF (congestive heart failure) Family history of COPD (chronic obstructive pulmonary disease) Family history of cancer Family history of hypertension Family history of myocardial infarction Family history of stroke Social History (Updated 08/28/23 @ 17:56 by Lo Knapp RN) Within the past year, how often did you have a drink containing alcohol: monthly or less Within the past year, how many standard drinks containing alcohol did you have on a typical day: 1 or 2 Within the past year, how often did you have six or more drinks on one occasion: never Total score: 0 Score interpretation: A score less than 3 is consistent with normal alcohol consumption. Smoking status: Never smoker Non-prescribed substance use: denies use Highest level of school completed/degree received: high school graduate In a typical week, how many times do you talk on the telephone with family, friends, or neighbors: 3 or more times per week How often do you get together with friends or relatives: 3 or more times per week How often do you attend anabaptism or evangelical services: never Little interest or pleasure in doing things: not at all Feeling down, depressed, or hopeless: not at all Feel stressed/tense/nervous/anxious/difficulty sleeping: not at all Do you think of yourself as: straight/heterosexual Gender Identity: female Meds Home Medications and Allergies Home Medications ?Medication ?Instructions ?Recorded ?Confirmed ?Type apixaban 5 mg tablet (Eliquis) 5 mg PO Q12H 08/28/23 08/28/23 History atorvastatin 80 mg tablet 80 mg PO .QHS 08/28/23 08/28/23 History lisinopril 5 mg tablet 5 mg PO .QD 08/28/23 08/28/23 History lorazepam 0.5 mg tablet 0.5 mg PO Q8H PRN anxiety 08/28/23 08/28/23 History methimazole 10 mg tablet 5 mg PO .QD 08/28/23 08/28/23 History metoprolol succinate 50 mg 50 mg PO .QD 08/28/23 08/28/23 History tablet,extended release 24 hr paroxetine HCl 20 mg tablet 20 mg PO .QD 08/28/23 08/28/23 History spironolactone 25 mg tablet 25 mg PO QAM 08/28/23 08/28/23 History levofloxacin 500 mg tablet 500 mg PO DAILY 7 days #7 tabs 08/29/23 Rx levofloxacin 500 mg tablet 500 mg PO DAILY 7 days #7 tabs 08/29/23 Rx prednisone 10 mg tablet 40 mg (4 x 10 mg) PO DAILY #32 tabs 08/29/23 Rx prednisone 10 mg tablet 40 mg (4 x 10 mg) PO DAILY #32 tabs 08/29/23 Rx Allergies Allergy/AdvReac Type Severity Reaction Status Date / Time No Known Drug Allergies Allergy Verified 08/28/23 12:40 Exam Constitutional Vital Signs, click to edit/add: Last Vital Signs Temp 98.0 F 08/29/23 09:12 Pulse 70 08/29/23 09:12 Resp 18 08/29/23 09:12 BP 130/68 08/29/23 09:12 Pulse Ox 93 L 08/29/23 09:12 O2 Del Method Room Air 08/29/23 09:12 Documenting provider has reviewed patient's vital signs: yes Common normals: no apparent distress Chest Common normals: inspection of chest normal Respiratory Common normals: normal respiratory effort and no retractions Cardio Common normals: regular rate and regular rhythm GI Common normals: Normal to inspection, nondistended, normoactive bowel sounds present Extremity Common normals: abnormal to inspection (Trace edema) Results Labs Labs: Short CBC 08/28/23 08/29/23 Range/Units 12:45 05:22 WBC 7.1 7.5 (4.0-11.0) 10^3/uL Hgb 13.6 12.6 (12.0-16.0) g/dL Hct 41.8 39.2 (36.0-48.0) % Plt Count 194 175 (150-450) 10^3/uL BMP 08/28/23 08/29/23 12:45 05:22 Sodium 140 135 L Potassium 4.8 4.8 Chloride 103 101 Carbon Dioxide 28.0 26.9 BUN 25.0 H 29.0 H Creatinine 1.23 H 1.52 H Glucose 100 194 H Calcium 9.4 9.0 Liver Function 08/28/23 Range/Units 12:45 Total Bilirubin 0.7 (0.2-1.0) mg/dL AST 26 (15-37) U/L ALT 32 (14-59) U/L Alkaline Phosphatase 97 (46-116) U/L Albumin 3.6 (3.4-5.0) g/dL Assessment and Plan Assessment and Plan (1) COPD exacerbation: (2) HTN (hypertension): (3) CHF (congestive heart failure): Plan Admission findings: Uncontrolled hypertension secondary to acute exacerbation of COPD-no pneumonia on chest x-ray, placed on aerosol treatments and IV antibiotics and steroids overnight. She does feel much improved this morning. She feels like she pretty close to her baseline will prefer to be discharged home and continue to treat this as an outpatient. Recommend patient go mini ambulatory oxygenation walking test prior to discharge. History of chronic combined congestive heart failure-BNP is up a little bit. Patient again feels back to her baseline from a breathing standpoint so that can be monitored as an outpatient Hyperglycemia secondary to steroids-she states she is not a diabetic or been treated for that. May want to have workup done as an outpatient. History of atrial fibrillation with rapid ventricular response-maintain current anticoagulation medications-heart rate controlled here. Admission status: Patient was admitted with acute exacerbation of COPD. She feels back to her baseline. Medically necessary treatment will not span 2 midnights so maintain observation status
--- NOTE | 2023-08-29 12:43 | P.DS_ITS ---
DS: Providers Provider Date of admission: 08/28/23 16:57 Primary care physician: RUDY DIAZ Consults: 08/29/23 08:21 Occupational Therapy Eval and Treat Routine Reason for consultation: Only if needed for Rehab Has provider been notified: No Physical Therapy Eval and Treat Routine Reason for consultation: Eval and Treat Has provider been notified: No DS: Diagnosis Discharge Diagnosis (1) COPD exacerbation: (2) HTN (hypertension): (3) CHF (congestive heart failure): Plan Admission findings: Uncontrolled hypertension secondary to acute exacerbation of COPD-no pneumonia on chest x-ray, much improved at the time of discharge History of chronic combined congestive heart failure-BNP is up a little bit. Stable at the time of discharge Hyperglycemia secondary to steroids-she states she is not a diabetic or been treated for that. May want to have workup done as an outpatient.-Stable at the time of discharge History of atrial fibrillation with rapid ventricular response-maintain current anticoagulation medications-heart rate controlled here. Admission status: Patient was admitted with acute exacerbation of COPD. She feels back to her baseline. Medically necessary treatment will not span 2 midnights so maintain observation status DS: Summary Hospital Course Hospital Course: Patient was admitted through the emergency room with acute exacerbation of her COPD, also developed steroid-induced hyperglycemia. She has a history of chronic combined congestive heart failure, on evaluation that was stable for her. When I saw the patient up on the medical surgical floor, she was resting comfortably in bed. Back to her baseline. Her lung exam was clear. She was able to ambulate without any hypoxia. At this point patient would prefer to be discharged home and promises to return if her breathing becomes worse. Will discharge patient to home in improving condition. Medications see list. Follow-up with your PCP this week. Status at Discharge Overall status at discharge: patient is back to baseline Time Spent with Patient Time attestation: Total time spent providing and/or coordinating discharge services: Time spent: greater than 30 minutes Exam Constitutional Vital Signs, click to edit/add: Last Vital Signs Temp 98.0 F 08/29/23 09:12 Pulse 70 08/29/23 09:12 Resp 18 08/29/23 09:12 BP 130/68 08/29/23 09:12 Pulse Ox 93 L 08/29/23 09:12 O2 Del Method Room Air 08/29/23 09:12 Documenting provider has reviewed patient's vital signs: yes Common normals: no apparent distress Chest Common normals: inspection of chest normal Respiratory Common normals: normal respiratory effort and no retractions Cardio Common normals: regular rate and regular rhythm GI Common normals: Normal to inspection, nondistended, normoactive bowel sounds present Extremity Common normals: abnormal to inspection (Trace edema) DS: Data Data Completed and Pending Labs on day of discharge: Labs from last 24 hours 08/29/23 08/29/23 08/28/23 09:16 05:22 12:45 WBC 7.5 7.1 RBC 4.10 L 4.31 Hgb 12.6 13.6 Hct 39.2 41.8 MCV 95.6 97.0 MCH 30.7 31.6 MCHC 32.1 32.5 RDW 12.7 12.9 Plt Count 175 194 MPV 10.9 10.6 Neut % (Auto) 92.4 H 70.5 Lymph % (Auto) 5.9 L 17.6 L [place] % (Auto) 1.2 L 7.8 Eos % (Auto) 0.0 L 3.2 Baso % (Auto) 0.0 L 0.6 Neut # (Auto) 6.9 H 5.0 Lymph # (Auto) 0.4 L 1.3 [place] # (Auto) 0.1 L 0.6 Eos # (Auto) 0.0 0.2 Baso # (Auto) 0.0 0.0 Abs Immat Gran (auto) 0.04 H 0.02 Imm/Tot Granulo (auto) 0.5 0.3 Sodium 135 L 140 Potassium 4.8 4.8 Chloride 101 103 Carbon Dioxide 26.9 28.0 Anion Gap 11.9 13.8 BUN 29.0 H 25.0 H Creatinine 1.52 H 1.23 H Est GFR ( Amer) 40 L 51 L Est GFR (Non-Af Amer) 33 L 42 L BUN/Creatinine Ratio 19.1 20.3 Glucose 194 H 100 Calcium 9.0 9.4 Magnesium 2.0 Total Bilirubin 0.7 AST 26 ALT 32 Alkaline Phosphatase 97 Troponin I High Sens 24.2 26.0 NT-Pro-B Natriuret Pep 2446.0 H* Total Protein 7.3 Albumin 3.6 Globulin 3.7 Albumin/Globulin Ratio 1.0 POC Glucose 259 H Discharge Plan Discharge Disposition: Home, Self-Care Discharge Medications: New levofloxacin 500 mg tablet 500 mg PO DAILY 7 Days Qty: 7 0RF prednisone 10 mg tablet 40 mg PO DAILY Qty: 32 0RF Rx Instructions: 4/day for 3 days, 3/day for 3 days, 2/day for 3 days, 1/day for 3 days, 1/2 /day for 4 days prednisone 10 mg tablet 40 mg PO DAILY Qty: 32 0RF Rx Instructions: 4/day for 3 days, 3/day for 3 days, 2/day for 3 days, 1/day for 3 days, 1/2 /day for 4 days levofloxacin 500 mg tablet 500 mg PO DAILY 7 Days Qty: 7 0RF Continued atorvastatin 80 mg tablet 80 mg PO .QHS metoprolol succinate 50 mg tablet extended release 24 hr 50 mg PO .QD spironolactone 25 mg tablet 25 mg PO QAM lorazepam 0.5 mg tablet 0.5 mg PO Q8H PRN (Reason: anxiety) paroxetine HCl 20 mg tablet 20 mg PO .QD lisinopril 5 mg tablet 5 mg PO .QD methimazole 10 mg tablet 5 mg PO .QD Patient Comments: pt takes 1/2 pill only on Thursday, Thursday, , Thursday. Does NOT take on Thursday, Thursday, and Thursday Eliquis 5 mg tablet 5 mg PO Q12H Activity: increase activity as tolerated and resume usual activities as tolerated Diet: advance to your usual diet Print Language: Spanish Patient Instructions: Prednisone (By mouth), Levofloxacin (By mouth) (Kenneth, Levmarisa Tejadaa-aida), COPD (Chronic Obstructive Pulmonary Disease) (DC) Forms: Portal Instructions Follow Up Appointments: please schedule a follow up appt with dr diaz on thursday for 5-7 days [phone] Discharge Date/Time: 08/29/23 11:07
--- NOTE | 2023-08-31 13:36 | CM.DCFOLLOWU ---
Person spoke with:pt's How are you feeling? not feeling great today How is your pain? just not feeling well Did you understand your discharge instructions?yes Do you have any questions about your discharge instructions? no Were you given any prescriptions at discharge? yes Were you able to get your prescriptions filled? yes Do you understand how to take your medications as ordered? yes Do you have any questions about your follow up appointment and do you plan to keep your follow up appointment?no questions, follow up is tomorrow Is there anything else that you would like to discuss? no Questions/Comments/Concerns/Other: no
== END 2023-08-29 11:07 | disposition home or self-care (01) ==
LOC: ER 16:06 → MS 17:12
PROVIDERS: Family Medicine; Admitting Provider Family Medicine; Emergency Provider Emergency Medicine; PCP Internal Medicine; Visit Provider Family Medicine
DX: J44.1 Chronic obstructive pulmonary disease with (acute) exacerbation (principal); I11.0 Hypertensive heart disease with heart failure; I50.42 Chronic combined systolic (congestive) and diastolic (congestive) heart failure; I48.91 Unspecified atrial fibrillation; Z79.01 Long term (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; R73.9 Hyperglycemia, unspecified; T38.0X5A Adverse effect of glucocorticoids and synthetic analogues, initial encounter
CPT/HCPCS: 36415; 71045; 80048; 80053; 82948; 83735; 83880; 84484; 85025; 87070; 93005; 94640; 94761; 96365; 96366; 96375; 96376; 99285; G0378; J2919

== ENCOUNTER 2023-11-26 14:23 | Outpatient (OUT) | payer MEDICARE, OTHER, SELFPAY ==
--- OUTSIDE RECORDS SUMMARY | 2023-11-26 14:42 | XMS_ITS | CCD ---
Author Organization [facility] Care Team Providers Care Mutuel Cashier Name Role Phone KEANU ISLAS Admitting Unavailable [...] EMILY, DR GRANT Primary Care Unavailable MICHELLE, AHMALeanrda Consulting Unavailable MICHELLE, AHMAD Attending Unavailable EMILY, DR GRANT Primary Care Unavailable MICHELLE, AHMAD Admitting Unavailable GABRIEL GREEN Admitting Unavailable DR OLE YANG Primary Care Unavailable GABRIEL GREEN Attending Unavailable SINA, DR NAEEM Petersen Consulting Unavailable GABRIEL GREEN Consulting Unavailable CHERY, SHEDLON Consulting Unavailable SHELDON GOTTLIEB Attending Unavailable OBI GOTTLIEBA Admitting Unavailable EMILY, DR GRANT Primary Care Unavailable HEMMER, DR BRAD Montesinos Admitting Unavailable EMILY, DR GRANT Primary Care Unavailable CLAUEBAMAIRANI, DR NAEEM Petersen Consulting Unavailable HEMMER, DR BRAD Montesinos Attending Unavailable HEMMER, DR BRAD Montesinos Consulting Unavailable CHERY, SHELDON Attending Unavailable CHERY, SHELDON Admitting Unavailable SHELDON GOTTLIEB Consulting Unavailable EMILY, DR GRANT Primary Care Unavailable MICHELLE, AHMAD Attending Unavailable YANG, DR GRANT Primary Care Unavailable MICHELLE, AHMAD Admitting Unavailable MICHELLE, AHMAD Consulting Unavailable CHERY, SHELDON Attending Unavailable CHERY, SHELDON Admitting Unavailable YANG, DR GRANT Primary Care Unavailable ZIEBAMAIRANI, DR NAEEM Petersen Consulting Unavailable CHERY, SHELDON Consulting Unavailable KEANU ISLAS Admitting Unavailable KEANU ISLAS Attending Unavailable EMILY, DR GRANT Primary Care Unavailable CLAUEBAMAIRANI, DR NAEEM Petersen Consulting Unavailable KEANU ISLAS Consulting Unavailable [...] ANDERSON Attending Unavailable OLE YANG Attending Unavailable KEANU ISLAS Referring Unavailable LARRY ANTON Attending Unavailable KEANU ISLAS Referring Unavailable KWAN RANGEL Attending Unavailable CLAUDIO WLAKER Attending Unavailable NILE GARNICA Referring Unavailable KEANU ISLAS Referring Unavailable KEANU ISLAS Referring Unavailable KEANU ISLAS Referring Unavailable NILE GARNICA Referring Unavailable Medications Current Medications Medication Drug [...] palsy, right eye] 04-28-2023 Episodic Thyroid disorders (7 sources) Thyrotoxicosis, unspecified [...] Onset: 06-18-2021 Episodic Other aftercare (1 source) jail (current) use of aspirin; Translations: [NURSING HOME 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 ASPIRIN] Onset: 06-18-2021 Episodic Other aftercare (1 source) Other usp (current) drug therapy; Translations: [OTH GREY TENDER CURRENT DRUG THERAPY] Onset: 06-18-2021 Episodic Other connective tissue disease (4 sources) Pain in right leg; Translations: [PAIN IN RIGHT LEG] Onset: 09-04-2021 Episodic Other connective tissue disease (1 source) Pain in left leg; Translations: [PAIN IN LEFT LEG] Onset: 06-18-2021 Episodic Other lower respiratory disease (6 sources) [...] Range Facility Office Visiton 08-07-2023 Follow-up visit [id number] Mohr 1940 Date Provider Department Center 08/07/2023 [id number] WALKER Family History Problem Relation Age of Onset Colon cancer Father Coronary artery disease Brother Hypertension Brother Kidney cancer Brother Family Status - Relation Status Age at Father Brother Level of Service:59812 [place] OFFICE/OUTPATIENT ESTABLISHED MOD MDM 30 MIN Normal [facility] Office Visiton 07-08-2023 Follow-up visit [id number] Lluvia Moreno 1940 Provider Department Center 07/08/2023 120-LARRY [facility] Family History Problem Relation Age of Onset Colon cancer Father Coronary artery disease Brother Hypertension Brother Kidney cancer Brother Family Status - Relation Status Age at Father Brother Level of Service:68178 [place] OFFICE/OUTPATIENT ESTABLISHED MOD MDM 30 MIN Reason for Visit and Comments: Follow-up [963971] - 6 month follow up Normal [facility] Orders Onlyon 07-08-2023 Orders Only [id number] Mohr 1940 [facility] Provider Department Center 07/08/2023 [id number], HISTORICAL JOMAR [facility] Family History Problem Relation Age of Onset Colon cancer Father Coronary artery disease Brother Hypertension Brother Kidney cancer Brother Family Status - Relation Status Age at Father Brother Normal [facility] Office Visiton 12-30-2022 Follow-up visit [id number] Lluvia Moreno 1940 F Date Provider Department Center 12/30/2022 TrudyDidier-KWAN RANGEL [facility] Family History Problem Relation Age of Onset Colon cancer Father Coronary artery disease Brother Hypertension Brother Kidney cancer Brother Family Status - Relation Status Age at Father Brother Level of Service:07193 [place] OFFICE/OUTPATIENT ESTABLISHED MOD MDM 30-39 MIN Normal [facility] FREE T3on 05-14-2022 FREE T3 2.54 pg/mlL Normal 2.18-3.98 [facility] Comment on above: Performed By: #### F T3, TSH #### [facility] [address] [address] [address] Hugo Yang FREE T4on 05-14-2022 Free T4 [Mass/Vol] 1.09 ng/dL Normal 0.76-1.46 [facility] Comment on above: Performed By: #### F T4 #### [facility] [address] [address] [address] Hugo Yang TSHon 05-14-2022 TSH 3.015 uIU/mL Normal 0.358-3.740 [facility] Comment on above: Performed By: #### F T3, TSH #### [facility] [address] HEAD WO CONon [...] by: NAEEM GARCIA Date: 2022-03-19 10:33 Normal [facility] XR DEXA BONE DENSITYon 03-19 XR DEXA [...] by: NAEEM GARCIA Date: 2022-03-19 11:11 Normal [facility] ECHOCARDIO M/2D COMPLETEon 1 02-22-2021 ECHOCARDIO M/2D COMPLETE Patient: LLUVIA MORENO Exam Date: 12/23/2021 : 1940 Gender:F Ordering : SHELDON GOTTLIEB [facility] Admission #: [id number] Family : DR OLE YANG M.D. Order #: [id number] CLICK HERE TO VIEW EXAM ECHOCARDIOGRAM REPORT [...] Lucas M.D. on 12/24/2021 at 15:56 Normal [facility] FREE T3on 11-25-2021 FREE T3 1.97 pg/mlL Critically low 2.18-3.[address] [facility] Comment on above: Performed By: #### F T3, TSH #### [facility] [address] [place] [address] Dr. Hugo Yang FREE T4on 11-25-2021 Free T4 [Mass/Vol] 1.00 ng/dL Normal 0.76-1.46 [facility] Comment on above: Performed By: #### F T3, TSH #### [facility] [address] [address] [address] Hugo Yang LIVER PROFILEon 11-25-2021 Albumin [Mass/Vol] 3.9 g/dL Normal 3.4-5.0 [facility] Comment on above: Performed By: #### F T3, TSH #### [facility] [address] [place] [address] Dr. Hugo Yang Albumin/Globulin [Mass ratio] 1.1 {ratio} Normal [facility] Comment on above: Performed By: #### F T3, TSH #### [facility] [address] [address] [address] Hugo Yang ALP [Catalytic activity/Vol] 94 U/L Normal 46-116 [facility] Comment on above: Performed By: #### F T3, TSH #### [facility] [address] [address] [address] Hugo Yang ALT [Catalytic activity/Vol] 41 U/L Normal 14-59 [facility] Comment on above: Performed By: #### F T3, TSH #### [facility] [address] [address] [address] Hugo Yang AST [Catalytic activity/Vol] 25 U/L Normal 15-37 [facility] Comment on above: Performed By: #### F T3, TSH #### [facility] [address] [place] [address] Dr. Hugo Yang BILI, CONJUGATED 0.2 mg/dL Normal 0.0-0.2 [facility] Comment on above: Performed By: #### F T3, TSH #### [facility] [address] [place] [address] Dr. Hugo Yang Bilirubin [Mass/Vol] 0.8 mg/dL Normal 0.2-1.0 [facility] Comment on above: Performed By: #### F T3, TSH #### [facility] [address] [place] [address] Dr. Hugo Yang Globulin (S) [Mass/Vol] 3.5 g/dL Normal [facility] Comment on above: Performed By: #### F T3, TSH #### [facility] [address] [place] [address] Dr. Hugo Yang Protein [Mass/Vol] 7.4 g/dL Normal 6.4-8.2 [facility] Comment on above: Performed By: #### F T3, TSH #### [facility] [address] [place] [address] Dr. Hugo Yang TSHon 11-25-2021 TSH 2.892 uIU/mL Normal 0.358-3.740 [facility] Comment on above: Performed By: #### F T3, TSH #### [facility] [address], [place] [address] Dr. Hugo Yang US PIPER DOP LEG [...] by: NAEEM GARCIA Date: 2021-09-04 12:18 Normal [facility] Cardiovascular Lab Reporton 08-21-2021 Cardiovascular Lab Report [facility] MR #: [id number] Physician: Keanu Islas MD Department of Service Date: 08/21/2021 Medicine Birthdate: 1940 Division of Room #: CC Cardiology Adult Cardiovascular Services [facility] [address] [facility]. [place] [address] Cardiovascular Laboratory Report TBIV-UPGRADE PROCEDURE NOTE DATE OF PROCEDURE: 08/21/2021 PERFORMING PHYSICIAN: Dr. Keanu Islas CONSENT: Patient LOCATION: EP Lab PROCEDURE PERFORMED: 1. Implantation of Biventricular ICD ([employer]). 2. Explantation of previously implanted pacemaker generator ([employer]). 3. RV pacing lead and extraction. [...] proceeded to place an LV lead. The [place] sheath was advanced, and with the wire, the CS os was accessed. However there was no support and so I used an amplatz wire for support. The inner cannula was then advanced into the CS body. The inner cannula was then removed and venogram was performed. [place] catheter was advanced and venogram was performed. This revealed a good posterolateral vein, but other than that, an anterior vein was noted, but no significant other branches were seen. After this, a 0.014 wire was passed through the [place]-Sarah catheter and traversed into the posterolateral vein. However, the wire was short enough and we could not get a good grasp at the end. So, thereafter, the [place]-Sarah catheter was removed and 90-degree inner cannula was used to access the vein. A longer 0.014 wire tracked into the vein. Over this, a Iddiction Acuity straight lead was advanced and placed [...] The inner cannulas were split and the Mel[place] sheath was slit and the lead secured [...] t (more content not included)... Normal [facility] Covid-19 PCR ([facility])on SARS-CoV-2 (COVID-19) RNA SONA+probe Ql (Unsp spec) Not detected Normal NOT DETECTED [facility] Comment on above: Result Comment: When diagnostic [...] for this test is supported by the [place] of Health and Human Service's declaration that [...] used). Performed By: #### B MP #### [facility] [address] [place] [address] Dr. Hugo Yang HEMOGRAM AND PLATELon 07-05- 2022 Hematocrit (Bld) [Volume fraction] 43.7 % Normal 36.0-48.0 [facility] Comment on above: Performed By: #### C BC #### [facility] [address] [place] [address] Dr. Hugo Yang Hemoglobin (Bld) [Mass/Vol] 14.2 g/dL Normal 12.0-16.0 [facility] Comment on above: Performed By: #### C BC #### [facility] [address] [place] [address] Dr. Hugo Yang MCH (RBC) [Entitic mass] 31.0 pg Normal 26.7-34.0 [facility] Comment on above: Performed By: #### C BC #### [facility] [address] [place] [address] Dr. Hugo Yang MCHC (RBC) [Mass/Vol] 32.5 g/dL Normal 29.9-35.2 [facility] Comment on above: Performed By: #### C BC #### [facility] [address] [place] [address] Dr. Hugo Yang MCV (RBC) [Entitic vol] 95.4 fL Normal 81.0-99.0 [facility] Comment on above: Performed By: #### C BC #### [facility] [address] [place] [address] Dr. Hugo Yang PLT 161 103/ul Normal 150-450 [facility] Comment on above: Performed By: #### C BC #### [facility] [address] [place] [address] Dr. Hugo Yang RBC 4.58 106/ul Normal 4.20-5.40 [facility] Comment on above: Performed By: #### C BC #### [facility] [address] [place] [address] Dr. Hugo Yang WBC 6.9 103/ul Normal 4.0-11.0 [facility] Comment on above: Performed By: #### C BC #### [facility] [address] [place] [address] Dr. Hugo Yang PROF CHEM 8 (BAS METB)on Anion gap [Moles/Vol] 11.5 mmol/L Normal [facility] Comment on above: Performed By: #### B MP #### [facility] [address] [address] [address] Hugo Yang Calcium [Mass/Vol] 9.6 mg/dL Normal 8.5-10.1 [facility] Comment on above: Performed By: #### B MP #### [facility] [address] [address] [address] Hugo Yang Chloride [Moles/Vol] 104 mmol/L Normal 98-107 [facility] Comment on above: Performed By: #### B MP #### [facility] [address] [address] [address] Hugo Yang CO2 [Moles/Vol] 30.6 mmol/L Normal 21.0-32.0 [facility] Comment on above: Performed By: #### B MP #### [facility] [address] [address] [address] Hugo Yang Creatinine [Mass/Vol] 1.24 mg/dL Critically high 0.55-1.02 [facility] Comment on above: Performed By: #### B MP #### [facility] [address] [address] [address] Hugo Yang EGFR-AF MONTENEGRIN 51 mL/min/1.73m2 Critically low >=60 [facility] Comment on above: Performed By: #### B MP #### [facility] [address] [address] [address] Hugo Yang EGFR-NON AF MONTENEGRIN 42 mL/min/1.73m2 Critically low >=60 [facility] Comment on above: Performed By: #### B MP #### [facility] [address] [address] [address] Hugo Yang Glucose [Mass/Vol] 111 mg/dL Critically high 74-106 [facility] Comment on above: Performed By: #### B MP #### [facility] [address] [address] [address] Hugo Yang Potassium [Moles/Vol] 5.1 mmol/L Normal 3.5-5.1 [facility] Comment on above: Performed By: #### B MP #### [facility] [address] [place] [address] Dr. Hugo Yang Sodium [Moles/Vol] 141 mmol/L Normal 136-145 [facility] Comment on above: Performed By: #### B MP #### [facility] [address] [place] [address] Dr. Hugo Yang Urea nitrogen [Mass/Vol] 31.0 mg/dL Critically high 7.0-18.0 [facility] Comment on above: Performed By: #### B MP #### [facility] [address] [place] [address] Dr. Hugo Yang Urea nitrogen/Creatinin e [Mass ratio] 25.0 mg/mg Normal [facility] Comment on above: Performed By: #### B MP #### [facility] [address] [place] [address] Dr. Hugo Yang BNPon 07-30-2021 Natriuretic peptide B (Bld) [Mass/Vol] 1994.0 pg/mL Critically high <=1,800.0 [facility] Comment on above: Performed By: #### C BC #### [facility] [address] [place] [address] Dr. Hugo Yang PROF CHEM 8 (BAS METB)on Anion gap [Moles/Vol] 11.3 mmol/L Normal [facility] Comment on above: Performed By: #### C BC #### [facility] [address] [place] [address] Dr. Hugo Yang Calcium [Mass/Vol] 9.7 mg/dL Normal 8.5-10.1 [facility] Comment on above: Performed By: #### C BC #### [facility] [address] [place] [address] Dr. Hugo Yang Chloride [Moles/Vol] 104 mmol/L Normal 98-107 [facility] Comment on above: Performed By: #### C BC #### [facility] [address] [address] [address] Hugo Yang CO2 [Moles/Vol] 29.6 mmol/L Normal 21.0-32.0 [facility] Comment on above: Performed By: #### C BC #### [facility] [address] [address] [address] Hugo Yang Creatinine [Mass/Vol] 1.28 mg/dL Critically high 0.55-1.02 [facility] Comment on above: Performed By: #### C BC #### [facility] [address] [address] [address] Hugo Yang EGFR-AF MONTENEGRIN 49 mL/min/1.73m2 Critically low >=60 [facility] Comment on above: Performed By: #### C BC #### [facility] [address] [place] [address] Dr. Hugo Yang EGFR-NON AF MONTENEGRIN 40 mL/min/1.73m2 Critically low >=60 [facility] Comment on above: Performed By: #### C BC #### [facility] [address] [address] [address] Hugo Yang Glucose [Mass/Vol] 119 mg/dL Critically high 74-106 [facility] Comment on above: Performed By: #### C BC #### [facility] [address] [address] [address] Hugo Yang Potassium [Moles/Vol] 4.9 mmol/L Normal 3.5-5.1 [facility] Comment on above: Performed By: #### C BC #### [facility] [address] [address] [address] Hugo Yang Sodium [Moles/Vol] 140 mmol/L Normal 136-145 [facility] Comment on above: Performed By: #### C BC #### [facility] [address] [address] [address] Hugo Yang Urea nitrogen [Mass/Vol] 30.0 mg/dL Critically high 7.0-18.0 [facility] Comment on above: Performed By: #### C BC #### [facility] [address] [place] [address] Dr. Hugo Yang Urea nitrogen/Creatinin e [Mass ratio] 23.4 mg/mg Normal [facility] Comment on above: Performed By: #### C BC #### [facility] [address] [place] [address] Dr. Hugo Yang FREE T3on 06-28-2021 FREE T3 2.64 pg/mlL Normal 2.18-3.98 [facility] Comment on above: Performed By: #### F T3, TSH #### [facility] [address] [place] [address] Dr. Hugo Yang FREE T4on 06-28-2021 Free T4 [Mass/Vol] 1.19 ng/dL Normal 0.76-1.46 [facility] Comment on above: Performed By: #### B MP #### [facility] [address] [place] [address] Dr. Hugo Yang LIVER PROFILEon 06-28-2021 Albumin [Mass/Vol] 3.8 g/dL Normal 3.4-5.0 [facility] Comment on above: Performed By: #### F T3, TSH #### [facility] [address] [place] [address] Dr. Hugo Yang Albumin/Globulin [Mass ratio] 1.2 {ratio} Normal [facility] Comment on above: Performed By: #### F T3, TSH #### [facility] [address] [place] [address] Dr. Hugo Yang ALP [Catalytic activity/Vol] 88 U/L Normal 46-116 [facility] Comment on above: Performed By: #### F T3, TSH #### [facility] [address] [place] [address] Dr. Hugo Yang ALT [Catalytic activity/Vol] 54 U/L Normal 14-59 [facility] Comment on above: Performed By: #### F T3, TSH #### [facility] [address] [place] [address] Dr. Hugo Yang AST [Catalytic activity/Vol] 36 U/L Normal 15-37 [facility] Comment on above: Performed By: #### F T3, TSH #### [facility] [address] [place] [address] Dr. Hugo Yang BILI, CONJUGATED 0.3 mg/dL Critically high 0.0-0.2 [facility] Comment on above: Performed By: #### F T3, TSH #### [facility] [address] [place] [address] Dr. Hugo Yang Bilirubin [Mass/Vol] 0.9 mg/dL Normal 0.2-1.0 [facility] Comment on above: Performed By: #### F T3, TSH #### [facility] [address] [place] [address] Dr. Hugo Yang Globulin (S) [Mass/Vol] 3.3 g/dL Normal [facility] Comment on above: Performed By: #### F T3, TSH #### [facility] [address] [place] [address] Dr. Hugo Yang Protein [Mass/Vol] 7.1 g/dL Normal 6.4-8.2 [facility] Comment on above: Performed By: #### F T3, TSH #### [facility] [address] [place] [address] Dr. Hugo Yang PROF CHEM 8 (BAS METB)on Anion gap [Moles/Vol] 13.6 mmol/L Normal [facility] Comment on above: Performed By: #### B MP #### [facility] [address] [place] [address] Dr. Hugo Yang Calcium [Mass/Vol] 9.5 mg/dL Normal 8.5-10.1 [facility] Comment on above: Performed By: #### B MP #### [facility] [address] [place] [address] Dr. Hugo Yang Chloride [Moles/Vol] 105 mmol/L Normal 98-107 [facility] Comment on above: Performed By: #### B MP #### [facility] [address] [place] [address] Dr. Hugo Yang CO2 [Moles/Vol] 28.5 mmol/L Normal 21.0-32.0 [facility] Comment on above: Performed By: #### B MP #### [facility] [address] [address] [address] Hugo Yang Creatinine [Mass/Vol] 1.05 mg/dL Critically high 0.55-1.02 [facility] Comment on above: Performed By: #### B MP #### [facility] [address] [address] [address] Hugo Yang EGFR-AF MONTENEGRIN >60 Normal >=60 [facility] Comment on above: Performed By: #### B MP #### [facility] [address] [address] [address] Hugo Yang EGFR-NON AF MONTENEGRIN 51 mL/min/1.73m2 Critically low >=60 [facility] Comment on above: Performed By: #### B MP #### [facility] [address] [address] [address] Hugo Yang Glucose [Mass/Vol] 113 mg/dL Critically high 74-106 [facility] Comment on above: Performed By: #### B MP #### [facility] [address] [address] [address] Hugo Yang Potassium [Moles/Vol] 5.1 mmol/L Normal 3.5-5.1 [facility] Comment on above: Performed By: #### B MP #### [facility] [address] [address] [address] Hugo Yang Sodium [Moles/Vol] 142 mmol/L Normal 136-145 [facility] Comment on above: Performed By: #### B MP #### [facility] [address] [address] [address] Hugo Yang Urea nitrogen [Mass/Vol] 29.0 mg/dL Critically high 7.0-18.0 [facility] Comment on above: Performed By: #### B MP #### [facility] [address] [address] [address] Hugo Yang Urea nitrogen/Creatinin e [Mass ratio] 27.6 mg/mg Normal [facility] Comment on above: Performed By: #### B MP #### [facility] [address], [place] [address] Dr. Hugo Yang TSHon 06-28-2021 TSH 3.067 uIU/mL Normal 0.358-3.740 [facility] Comment on above: Performed By: #### F T3, TSH #### [facility] [address], [place] [address] Dr. Hugo Yang TSH RANGE SEE BELOW Normal [facility] Comment on above: Result Comment: <0.3 4 UIU/ml HYPERTHYROID 0.34-5.60 UIU/ml EUTHYROID >5.60 UIU/ml HYPOTHYROID Performed By: #### F T3, TSH #### [facility] [address], [place] [address] Dr. Hugo Yang Cardiovascular Lab Reporton 06-21-2021 Cardiovascular Lab Report [facility] Patient Name: [facility] MR #: [id number] Physician: Elizabeth Tejeda Department of M.D. Medicine Service Date: 06/20/2021 Division of Birthdate: 1940 Cardiology Room #: [facility] Cardiovascular Services [place] [address] Cardiovascular Laboratory Report FINAL IMPRESSIONS: 1. 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 2. Otherwise nonobstructive coronary arteries angiographically. 3. Moderately reduced global left ventricular systolic function by noninvasive imaging. 4. Normal right-sided heart pressures and wedge pressure. 5. Oajw-te-hdsctgwf systemic hypertension. 6. Mildly reduced cardiac output/cardiac [...] bilateral selective coronary angiography, placement of a 6-Greek MynxGrip closure device. METHODS: After risks, benefits, [...] femoral vein and artery was obtained. A 6-Greek 11 cm sheath was placed in each. [...] the procedure. All catheters were removed. A 6-Greek MynxGrip closure device was deployed per protocol [...] E (more content not included)... Normal [facility] BNPon 06-18-2021 Natriuretic peptide B (Bld) [Mass/Vol] 3442.0 pg/mL Critically high <=1,800.0 [facility] Comment on above: Result Comment: TEST REPEATED CRITICAL VALUE VERIFIED Performed By: #### L IPID, BNP, CMP #### [facility] [address] [place] [address] Dr. Hugo Yang CBC AUTO DIFFon 06-18-2021 BASO # 0.1 103/ul Normal 0.0-0.1 [facility] Comment on above: Performed By: #### C BC #### [facility] [address] [address] [address] Hugo Yang Basophils/100 WBC (Bld) 0.5 % Normal 0.2-2.0 [facility] Comment on above: Performed By: #### C BC #### [facility] [address] [address] [address] Hugo Yang EO # 0.3 103/ul Normal 0.0-0.7 [facility] Comment on above: Performed By: #### C BC #### [facility] [address] [place] [address] Dr. Hugo Yang Eosinophils/100 WBC (Bld) 2.3 % Normal 0.9-7.0 [facility] Comment on above: Performed By: #### C BC #### [facility] [address] [place] [address] Dr. Hugo Yang Erythrocyte distribution width (RBC) [Ratio] 14.5 % Normal 11.0-15.0 [facility] Comment on above: Performed By: #### C BC #### [facility] [address] [place] [address] Dr. Hugo Yang Hematocrit (Bld) [Volume fraction] 42.3 % Normal 36.0-48.0 [facility] Comment on above: Performed By: #### C BC #### [facility] [address] [place] [address] Dr. Hugo Yang Hemoglobin (Bld) [Mass/Vol] 13.5 g/dL Normal 12.0-16.0 [facility] Comment on above: Performed By: #### C BC #### [facility] [address] [place] [address] Dr. Hugo Yang IG # 0.05 10e3/ul Critically high 0.00-0.03 [facility] Comment on above: Performed By: #### C BC #### [facility] [address] [place] [address] Dr. Hugo Yang IG % 0.4 % Normal 0.0-0.5 [facility] Comment on above: Performed By: #### C BC #### [facility] [address] [place] [address] Dr. Hugo Yang LYMPH # 1.5 103/ul Normal 1.2-3.8 [facility] Comment on above: Performed By: #### C BC #### [facility] [address] [place] [address] Dr. Hugo Yang Lymphocytes/100 WBC (Bld) 12.9 % Critically low 20.5-60.0 [facility] Comment on above: Performed By: #### C BC #### [facility] [address] [place] [address] Dr. Hugo Yang MANUAL DIFF REQ NO Normal [facility] Comment on above: Performed By: #### C BC #### [facility] [address] [place] [address] Dr. Hugo Yang MCH (RBC) [Entitic mass] 30.4 pg Normal 26.7-34.0 [facility] Comment on above: Performed By: #### C BC #### [facility] [address] [place] [address] Dr. Hugo Yang MCHC (RBC) [Mass/Vol] 31.9 g/dL Normal 29.9-35.2 [facility] Comment on above: Performed By: #### C BC #### [facility] [address] [place] [address] Dr. Hugo Yang MCV (RBC) [Entitic vol] 95.3 fL Normal 81.0-99.0 [facility] Comment on above: Performed By: #### C BC #### [facility] [address] [place] [address] Dr. Hugo Yang MONO # 0.7 103/ul Normal 0.3-0.8 [facility] Comment on above: Performed By: #### C BC #### [facility] [address] [place] [address] Dr. Hugo Yang Monocytes/100 WBC (Bld) 6.2 % Normal 1.7-12.0 [facility] Comment on above: Performed By: #### C BC #### [facility] [address] [place] [address] Dr. Hugo Yang NEUT # 8.8 103/ul Critically high 1.4-6.[address] [facility] Comment on above: Performed By: #### C BC #### [facility] [address] [place] [address] Dr. Hugo Yang Neutrophils/100 WBC (Bld) 77.7 % Critically high 43.0-75.0 [facility] Comment on above: Performed By: #### C BC #### [facility] [address] [address] [address] Hugo Yang Platelet mean volume (Bld) [Entitic vol] 10.4 fL Normal 9.5-13.5 [facility] Comment on above: Performed By: #### C BC #### [facility] [address] [address] [address] Hugo Yang PLT 199 103/ul Normal 150-450 [facility] Comment on above: Performed By: #### C BC #### [facility] [address] [address] [address] Hugo Yang RBC 4.44 106/ul Normal 4.20-5.40 [facility] Comment on above: Performed By: #### C BC #### [facility] [address] [address] [address] Hugo Yang WBC 11.3 103/ul Critically high 4.0-11.0 [facility] Comment on above: Performed By: #### C BC #### [facility] [address] [address] [address] Hugo Yang Covid-19 PCR ([facility])on SARS-CoV-2 (COVID-19) RNA SONA+probe Ql (Unsp spec) Not detected Normal NOT DETECTED [facility] Comment on above: Result Comment: This test is not yet approved or cleared by the [place] FDA. When there are no FDA-approved or cleared tests available, and other criteria are met, FDA can make tests available under an emergency access mechanism called an Emergency Use Authorization (EUA). The EUA for this test is supported by the [place] of Health and Human Service's (HHS's) declaration [...] Performed By: #### F T3, TSH #### [facility] [address] [place] [address] Dr. Hugo Yang LIPID PROFILEon 06-18-2021 CHOL-HDL RATIO NORM SEE BELOW Normal [facility] Comment on above: Result Comment: 3.3 - 4.4 LOW RISK 4.4 - 7.1 AVERAGE RISK 7.1 - 11.0 MODERATE RISK >11.0 HIGH RISK Performed By: #### L IPID, BNP, CMP #### [facility] [address] [place] [address] Dr. Hugo Yang Cholesterol [Mass/Vol] 127 mg/dL Normal <=200 [facility] Comment on above: Performed By: #### L IPID, BNP, CMP #### [facility] [address] [place] [address] Dr. Hugo Yang Cholesterol in HDL [Mass/Vol] 60 mg/dL Normal 40-60 [facility] Comment on above: Performed By: #### L IPID, BNP, CMP #### [facility] [address] [place] [address] Dr. Hugo Yang Cholesterol in LDL [Mass/Vol] 47.4 mg/dL Normal [facility] Comment on above: Performed By: #### L IPID, BNP, CMP #### [facility] [address] [place] [address] Dr. Hugo Yang Cholesterol.total/ Cholesterol in HDL [Mass ratio] 2.1 {ratio} Normal [facility] Comment on above: Performed By: #### L IPID, BNP, CMP #### [facility] [address] [place] [address] Dr. Hugo Yang HDL NORMAL > or = 60 mg/dl - LO W CARDIOVASCULAR RISK <40 mg/dl - HIGH CARDIOVASCULAR RISK Normal [facility] Comment on above: Performed By: #### L IPID, BNP, CMP #### [facility] [address] [place] [address] Dr. Hugo Yang LDL CALC NORMAL SEE BELOW Normal [facility] Comment on above: Result Comment: <100 mg/dl OPTIMAL 100 - 129 mg/dl NEAR OR ABOVE OPTIMAL 130 - 159 mg/dl BORDERLINE HIGH 160 - 189 mg/dl HIGH >190 mg/dl VERY HIGH Performed By: #### L IPID, BNP, CMP #### [facility] [address] [address] [address] Hugo Yang Triglyceride [Mass/Vol] 98 mg/dL Normal <=150 [facility] Comment on above: Performed By: #### L IPID, BNP, CMP #### [facility] [address] [address] [address] Hugo Yang VLDL CALC 19.6 mg/dL Normal [facility] Comment on above: Performed By: #### L IPID, BNP, CMP #### [facility] [address] [address] [address] Hugo Yang PROF 14(COMP METB)on 022 Albumin [Mass/Vol] 4.0 g/dL Normal 3.4-5.0 [facility] Comment on above: Performed By: #### L IPID, BNP, CMP #### [facility] [address] [address] [address] Hugo Yang Albumin/Globulin [Mass ratio] 1.3 {ratio} Normal [facility] Comment on above: Performed By: #### L IPID, BNP, CMP #### [facility] [address] [address] [address] Hugo Yang ALP [Catalytic activity/Vol] 82 U/L Normal 46-116 [facility] Comment on above: Performed By: #### L IPID, BNP, CMP #### [facility] [address] [address] [address] Hugo Yang ALT [Catalytic activity/Vol] 52 U/L Normal 14-59 [facility] Comment on above: Performed By: #### L IPID, BNP, CMP #### [facility] [address] [address] [address] Hugo Yang Anion gap [Moles/Vol] 12.9 mmol/L Normal [facility] Comment on above: Performed By: #### L IPID, BNP, CMP #### [facility] [address] [address] [address] Hugo Yang AST [Catalytic activity/Vol] 40 U/L Critically high 15-37 [facility] Comment on above: Performed By: #### L IPID, BNP, CMP #### [facility] [address] [address] [address] Hugo Yang Bilirubin [Mass/Vol] 1.7 mg/dL Critically high 0.2-1.0 [facility] Comment on above: Performed By: #### L IPID, BNP, CMP #### [facility] [address] [place] [address] Dr. Hugo Yang Calcium [Mass/Vol] 9.2 mg/dL Normal 8.5-10.1 [facility] Comment on above: Performed By: #### L IPID, BNP, CMP #### [facility] [address] [address] [address] Hugo Yang Chloride [Moles/Vol] 103 mmol/L Normal 98-107 [facility] Comment on above: Performed By: #### L IPID, BNP, CMP #### [facility] [address] [place] [address] Dr. Hugo Yang CO2 [Moles/Vol] 28.9 mmol/L Normal 21.0-32.0 [facility] Comment on above: Performed By: #### L IPID, BNP, CMP #### [facility] [address] [place] [address] Dr. Hugo Yang Creatinine [Mass/Vol] 1.12 mg/dL Critically high 0.55-1.02 [facility] Comment on above: Performed By: #### L IPID, BNP, CMP #### [facility] [address] [place] [address] Dr. Hugo Yang EGFR-AF MONTENEGRIN 57 mL/min/1.73m2 Critically low >=60 [facility] Comment on above: Performed By: #### L IPID, BNP, CMP #### [facility] [address] [address] [address] Hugo Yang EGFR-NON AF MONTENEGRIN 47 mL/min/1.73m2 Critically low >=60 [facility] Comment on above: Performed By: #### L IPID, BNP, CMP #### [facility] [address] [address] [address] Hugo Yang Globulin (S) [Mass/Vol] 3.1 g/dL Normal [facility] Comment on above: Performed By: #### L IPID, BNP, CMP #### [facility] [address] [address] [address] Hugo Yang Glucose [Mass/Vol] 128 mg/dL Critically high 74-106 [facility] Comment on above: Performed By: #### L IPID, BNP, CMP #### [facility] [address] [address] [address] Hugo Yang Potassium [Moles/Vol] 4.8 mmol/L Normal 3.5-5.1 [facility] Comment on above: Performed By: #### L IPID, BNP, CMP #### [facility] [address] [address] [address] Hugo Yang Protein [Mass/Vol] 7.1 g/dL Normal 6.1-8.2 [facility] Comment on above: Performed By: #### L IPID, BNP, CMP #### [facility] [address] [address] [address] Hugo Yang Sodium [Moles/Vol] 140 mmol/L Normal 136-145 [facility] Comment on above: Performed By: #### L IPID, BNP, CMP #### [facility] [address] [address] [address] Hugo Yang Urea nitrogen [Mass/Vol] 23.0 mg/dL Critically high 7.0-18.0 [facility] Comment on above: Performed By: #### L IPID, BNP, CMP #### [facility] [address] [address] [address] Hugo Yang Urea nitrogen/Creatinin e [Mass ratio] 20.5 mg/mg Normal [facility] Comment on above: Performed By: #### L IPID, BNP, CMP #### [facility] [address] [address] [address] Hugo Yang ECHOCARDIO M/2D COMPLETEon 0 06-12-2021 ECHOCARDIO M/2D COMPLETE Patient: LLUVIA MORENO Exam Date: 06/12/2021 : 1940 Gender:F Ordering : SHELDON GOTTLIEB Admission #: [id number] Family : DR OLE YANG M.D. Order #: [id number] CLICK HERE TO VIEW EXAM ECHOCARDIOGRAM REPORT [...] Area(A4C): 31.00 cm2 Left Atrium Systolic Volume(A2C): 134793 mm3 Left Atrium Systolic Volume(A4C): 104489 mm3 Mitral Valve MV E to A [...] M.D. on 06/12/2021 at 16:27 Normal [facility] CBC AUTO DIFFon 06-04-2021 BASO # 0.0 103/ul Normal 0.0-0.1 [facility] Comment on above: Performed By: #### C BC #### [facility] [address] [place] [address] Dr. Hugo Yang Basophils/100 WBC (Bld) 0.6 % Normal 0.2-2.0 [facility] Comment on above: Performed By: #### C BC #### [facility] [address] [place] [address] Dr. Hugo Yang EO # 0.2 103/ul Normal 0.0-0.7 [facility] Comment on above: Performed By: #### C BC #### [facility] [address] [place] [address] Dr. Hugo Yang Eosinophils/100 WBC (Bld) 3.0 % Normal 0.9-7.0 [facility] Comment on above: Performed By: #### C BC #### [facility] [address] [place] [address] Dr. Hugo Yang Erythrocyte distribution width (RBC) [Ratio] 13.7 % Normal 11.0-15.0 [facility] Comment on above: Performed By: #### C BC #### [facility] [address] [place] [address] Dr. Hugo Yang Hematocrit (Bld) [Volume fraction] 42.1 % Normal 36.0-48.0 [facility] Comment on above: Performed By: #### C BC #### [facility] [address] [place] [address] Dr. Hugo Yang Hemoglobin (Bld) [Mass/Vol] 13.3 g/dL Normal 12.0-16.0 [facility] Comment on above: Performed By: #### C BC #### [facility] [address] [place] [address] Dr. Hugo Yang IG # 0.02 10e3/ul Normal 0.00-0.03 [facility] Comment on above: Performed By: #### C BC #### [facility] [address] [place] [address] Dr. Hugo Yang IG % 0.3 % Normal 0.0-0.5 [facility] Comment on above: Performed By: #### C BC #### [facility] [address] [place] [address] Dr. Hugo Yang LYMPH # 1.9 103/ul Normal 1.2-3.8 [facility] Comment on above: Performed By: #### C BC #### [facility] [address] [place] [address] Dr. Hugo Yang Lymphocytes/100 WBC (Bld) 29.2 % Normal 20.5-60.0 [facility] Comment on above: Performed By: #### C BC #### [facility] [address] [place] [address] Dr. Hugo Yang MANUAL DIFF REQ NO Normal [facility] Comment on above: Performed By: #### C BC #### [facility] [address] [place] [address] Dr. Hugo Yang MCH (RBC) [Entitic mass] 30.4 pg Normal 26.7-34.0 [facility] Comment on above: Performed By: #### C BC #### [facility] [address] [place] [address] Dr. Hugo Yang MCHC (RBC) [Mass/Vol] 31.6 g/dL Normal 29.9-35.2 [facility] Comment on above: Performed By: #### C BC #### [facility] [address] [place] [address] Dr. Hugo Yang MCV (RBC) [Entitic vol] 96.3 fL Normal 81.0-99.0 [facility] Comment on above: Performed By: #### C BC #### [facility] [address] [place] [address] Dr. Hugo Yang MONO # 0.6 103/ul Normal 0.3-0.8 [facility] Comment on above: Performed By: #### C BC #### [facility] [address] [place] [address] Dr. Hugo Yang Monocytes/100 WBC (Bld) 8.5 % Normal 1.7-12.0 [facility] Comment on above: Performed By: #### C BC #### [facility] [address] [place] [address] Dr. Hugo Yang NEUT # 3.8 103/ul Normal 1.4-6.5 [facility] Comment on above: Performed By: #### C BC #### [facility] [address] [address] [address] Hugo Yang Neutrophils/100 WBC (Bld) 58.4 % Normal 43.0-75.0 [facility] Comment on above: Performed By: #### C BC #### [facility] [address] [address] [address] Hugo Yang Platelet mean volume (Bld) [Entitic vol] 10.9 fL Normal 9.5-13.5 [facility] Comment on above: Performed By: #### C BC #### [facility] [address] [address] [address] Hugo Yang PLT 163 103/ul Normal 150-450 [facility] Comment on above: Performed By: #### C BC #### [facility] [address] [place] [address] Dr. Hugo Yang RBC 4.37 106/ul Normal 4.20-5.40 [facility] Comment on above: Performed By: #### C BC #### [facility] [address] [address] [address] Hugo Yang WBC 6.6 103/ul Normal 4.0-11.0 [facility] Comment on above: Performed By: #### C BC #### [facility] [address] [place] [address] Dr. Hugo Yang PROF CHEM 8 (BAS METB)on Anion gap [Moles/Vol] 13.9 mmol/L Normal [facility] Comment on above: Performed By: #### F T3, TSH #### [facility] [address] [address] [address] Hugo Yang Calcium [Mass/Vol] 9.5 mg/dL Normal 8.5-10.1 [facility] Comment on above: Performed By: #### F T3, TSH #### [facility] [address] [address] [address] Hugo Yang Chloride [Moles/Vol] 105 mmol/L Normal 98-107 [facility] Comment on above: Performed By: #### F T3, TSH #### [facility] [address] [address] [address] Hugo Yang CO2 [Moles/Vol] 27.7 mmol/L Normal 22.0-30.0 [facility] Comment on above: Performed By: #### F T3, TSH #### [facility] [address] [address] [address] Hugo Yang Creatinine [Mass/Vol] 1.19 mg/dL Critically high 0.52-1.04 [facility] Comment on above: Performed By: #### F T3, TSH #### [facility] [address] [address] [address] Hugo Yang EGFR-AF MONTENEGRIN 53 mL/min/1.73m2 Critically low >=60 [facility] Comment on above: Performed By: #### F T3, TSH #### [facility] [address] [address] [address] Hugo Yang EGFR-NON AF MONTENEGRIN 44 mL/min/1.73m2 Critically low >=60 [facility] Comment on above: Performed By: #### F T3, TSH #### [facility] [address] [address] [address] Hugo Yang Glucose [Mass/Vol] 112 mg/dL Critically high 74-106 [facility] Comment on above: Performed By: #### F T3, TSH #### [facility] [address] [address] [address] Hugo Yang Potassium [Moles/Vol] 4.6 mmol/L Normal 3.4-5.0 [facility] Comment on above: Performed By: #### F T3, TSH #### [facility] [address] [address] [address] Hugo Yang Sodium [Moles/Vol] 142 mmol/L Normal 137-145 [facility] Comment on above: Performed By: #### F T3, TSH #### [facility] [address] [address] [address] Hugo Yang Urea nitrogen [Mass/Vol] 28.0 mg/dL Critically high 7.0-18.0 [facility] Comment on above: Performed By: #### F T3, TSH #### [facility] [address] [address] [address] Hugo Yang Urea nitrogen/Creatinin e [Mass ratio] 23.5 mg/mg Normal [facility] Comment on above: Performed By: #### F T3, TSH #### [facility] [address] [address] [address] Hugo Yang TROPONIN, HIGH SENSITIVITYon 06-04-2021 HSTROP 27.1 pg/mL Normal 4.0-35.5 [facility] Comment on above: Result Comment: CUT- OFF POINTS HAVE BEEN ESTABLISHED BASED ON THE FOURTH UNIVERSAL DEFINITIONS OF MYOCARDIAL INFARCTION. THE UPPER REFERENCE LIMIT (URL) OF TROPONIN, DEFINED THE 99TH PERCENTILE OF cTnI DISTRIBUTION IN A REFERENCE POPULATION, HAS BEEN CONFIRMED THE DECISION THRESHOLD FOR LA DIAGNOSIS. Performed By: #### F T3, TSH #### [facility] [address] [address] [address] Hugo Yang XR CHEST 1 Von [...] NAEEM GARCIA Date: 2021-06-04 11:09 Normal [facility] Cardiovascular Lab Reporton 12-28-2020 Cardiovascular Lab Report [facility] Patient Name: [facility] MR #: [id number] Physician: Keanu Islas MD Department of Service Date: 12/28/2020 Medicine Birthdate: 1940 Division of Room #: CC Cardiology Adult Cardiovascular Services [facility] [address] [place] [address] Cardiovascular Laboratory Report AV NODE ABLATION PROCEDURE [...] prepped and draped. Under ultrasound guidance, an 8-Greek venous access was procured, and a short [...] P/Keanu Islas MD Date Trans: 12/28/2020 04:43 P/donna [id number] cc: Ole Yang M.D. [address] [place] [address] Normal [facility] Cardiovascular Lab Reporton 11-19-2020 Cardiovascular Lab Report [facility] Patient Name: J[facility] MR #: [id number] Physician: Keanu Islas MD Department of Service Date: 11/19/2020 Medicine Birthdate: 1940 Division of Room #: Cardiology Adult Cardiovascular Services [place] [address] Cardiovascular Laboratory Report PACEMAKER IMPLANT PROCEDURE NOTE DATE OF PROCEDURE: 11/19/20 PERFORMING PHYSICIAN: Dr. Keanu Islas CONSENT: Patient LOCATION: EP Lab PROCEDURE PERFORMED: 1. Implantation of pacemaker ([employer]) 2. Ultrasound guided venous access INDICATIONS: [...] using modified seldinger technique using a 5 Greek micro-puncture needle on one occasion and 0.35 wire was placed. Local infiltration of 1% Lidocaine was performed, and an incision was created in the left upper chest. Dissection was then performed using cautery down to the fascial plane above the muscle. A small pocket was created for the device. 8 Greek Safesheath was placed over the wire. Then a His sheath was advanced over a glide wire into the right ventricle. The wire and dilator was then removed. An active fixation [employer] pacing lead was then delivered through [...] immediate procedural complications were noted. Device info: [employer] Accolade MRI EL SR IS1 Model# L310 Serial# [id number] lead: Model# [id number] (59cms) Serial# [id number] Sensin.3mV Threshold: 0.6V@0.4ms Impedance: 655 Ohms POST [...] 11/19/2020 (more content not included)... Normal [facility] Encounters Encounter Date Encounter Type Care Provider Facility [facility]: [facility] [facility] Start: 10-16-2023 ambulatory KEANU ISLAS [facility] Start: 08-14-2023 ambulatory [facility] Start: 08-14-2023 Encounter for preprocedural cardiovascular examination [facility] Start: 08-07-2023 End: 08-07-2023 ambulatory [facility] Start: 08-04-2023 End: 08-04-2023 ambulatory [facility] Start: 07-27-2023 ambulatory KEANU [facility] Start: 07-22-2023 End: 07-22-2023 ambulatory OLE B YANG Not Available Start: 07-08-2023 End: 07-08-2023 ambulatory LARRY ANTON [facility] Start: 05-27-2023 End: 05-27-2023 ambulatory BRAD ANDERSON Not Available Start: 04-27-2023 End: 04-27-2023 [facility] Start: 04-27-2023 End: 04-27-2023 Office outpatient visit 15 minutes [place] OD Work Phone: [facility] Comment on above: Esotropia of right e ye (Primary Dx); Right abducens nerve palsy; Double vision Start: 02-19-2023 End: 02-19-2023 ambulatory OLE YANG Not Available Start: 02-11-2023 End: 02-11-2023 ambulatory OLE B YANG Not Available Start: 01-28-2023 End: 01-28-2023 ambulatory OLE YANG Not Available Start: 01-20-2023 End: 01-20-2023 ambulatory [facility] Start: 12-30-2022 End: 12-30-2022 ambulatory KWAN [facility] Start: 05-14-2022 End: 05-15-2022 ambulatory PRUDENCIO MARTINEZ Facility:[facility] Start: 03-19-2022 End: 03-20-[address] BRAD ANDERSON Facility:[facility] Start: 12-23-2021 End: 12-24-2021 ambulatory SHELDON GOTTLIEB Facility:[facility] Start: 11-25-2021 End: 11-26-2021 ambulatory PRUDENCIO MARTINEZ Facility:[facility] Start: 09-04-2021 End: 09-05-2021 ambulatory SHELDON GOTTLIEB Facility:[facility] Start: 08-23-2021 Encounter for other preprocedural examination SHELDON GOTTLIEB [facility] Start: 08-23-2021 Encounter for preprocedural laboratory examination SHELDON GOTTLIEB [facility] Start: 08-22-2021 End: 08-23-2021 ambulatory KEANU COYCKO Facility:[facility] Start: 08-21-2021 End: 08-22-2021 ambulatory KEANU ISLAS Facility:[facility] Start: 08-20-2021 End: 08-21-2021 ambulatory SHELDON GOTTLIEB Facility:[facility] Start: 08-20-2021 End: 08-21-2021 Encounter for other preprocedural examination SHELDON GOTTLIEB Facility:[facility] Start: 07-30-2021 End: 07-31-2021 ambulatory SHELDON GOTTLIEB Facility:[facility] Start: 06-28-2021 End: 06-29-2021 ambulatory LARRY ANTON Facility:[facility] Start: 06-20-2021 Encounter for other specified special examinations SHELDON GOTTLIEB [facility] Start: 06-18-2021 End: 06-19-2021 ambulatory SHELDON GOTTLIEB Facility:[facility] Start: 06-18-2021 End: 06-19-2021 Encounter for other specified special examinations LARRY ANTON Facility:[facility] Start: 06-17-2021 End: 06-17-[address] MAYRA CHOI Facility:[facility] Start: 06-12-2021 End: 06-13-2021 ambulatory SHELDON GOTTLIEB Facility:[facility] Start: 06-04-2021 End: 06-04-2021 ambulatory GABRIEL GREEN Facility:[facility] Start: 12-28-2020 End: 12-29-2020 ambulatory KEANU ISLAS Facility:[facility] Start: 11-19-2020 End: 11-20-2020 ambulatory KEANU ISLAS Facility:[facility] Procedures Date Procedure Procedure Detail Performing Clinician Start: 04-27-2023 Follow-up visit Follow-up ELIEL NICHOLS Plan of Treatment Date Care Activity Detail Author Start: 04-26-2024 Tobacco Screening [facility] Start: 12-04-2023 Adult BMI Screening Adult BMI Screen ing [facility] Start: 08-17-2007 Fall Risk Screening Fall Risk Screen ing [facility] Start: 1961 DTaP,Tdap and Td Vaccines (1 - Tdap) DTaP,Tdap and Td Vaccines (1 - Tdap) [facility] Start: 1960 Adult BMI Follow Up Plan Adult BMI Follow Up Plan [facility] Start: 1954 Depression Screening Depression Scre nithya [facility] Start: 1942 Medicare Annual Wellness Visit Medicare Annual Wellness [facility] Payers Date Payer Category Payer Unknown COMMERCIAL [employer]ME RCIAL - GENERIC PLAN [id number] 2022-Present [phone] [address] [address] [place] [address] [id number] 2004 Medicare MEDICARE MEDICAR E PART A & B [id number] 2004-Present [phone] [address] [place] [address] [id number] 1959 Medicare [id number] 1959 Unknown [id number] 1942 Unknown [id number] 2.16.840.1.700005.3.579.2.647 1942 Unknown [id number] 2.16.840.1.854408.3.579.2.647 1942 Unknown [id number] 2.16.840.1.983806.3.579.2.647 1942 Unknown [id number] 2.16.840.1.246724.3.579.2.593 1942 Unknown [id number] 2.16.840.1.922476.3.579.2.593 1942 Unknown [id number] 2.16.840.1.802205.3.579.2.593 1942 Unknown [id number] 2.16.840.1.596996.3.579.2.593 1942 Unknown [id number] 2.16.840.1.193400.3.579.2.593 1942 Unknown [id number] 2.16.840.1.563160.3.579.2.593 1942 Unknown [id number] 2.16.840.1.366977.3.579.2.593 1942 Unknown [id number] 2.16.840.1.287255.3.579.2.593 1942 Unknown [id number] 2.16.840.1.419815.3.579.2.593 1942 Unknown [id number] 2.16.840.1.230659.3.579.2.593 1942 Unknown [id number] 2.16.840.1.409665.3.579.2.593 1942 Unknown [id number] 2.16.840.1.142388.3.579.2.593 1942 Unknown [id number] 2.16.840.1.232038.3.579.2.593 1942 Unknown [id number] 2.16.840.1.906341.3.579.2.593 1942 Unknown [id number] 2.16.840.1.460337.3.579.2.593 1942 Unknown [id number] 2.16.840.1.407082.3.579.2.1286 1942 Unknown [id number] 2.16.840.1.260180.3.579.2.1259 1942 Unknown [id number] 2.16.840.1.604397.3.579.2.1259 1942 Unknown [id number] 2.16.840.1.895482.3.579.2.1259 1942 Unknown [id number] 2.16.840.1.734771.3.579.2.1259 1942 Unknown [id number] 2.16.840.1.203852.3.579.2.1259 Social History Date Type Detail Facility Start: 08-13-2022 Tobacco smoking stat [facility] Never smoked tobacco [facility] Start: 08-13-2022 Tobacco use and exposure Smokeless tobacco non-user [facility] Start: 04-28-2023 History of Social function [facility] Start: 04-28-2023 Tobacco use panel [facility] Start: 1940 Sex Assigned At Not on file P [facility] Clinical Notes 06-17-2021 to 08-07-2023 Eliel Nichols, [...] by mouth at bedtime., Disp: , Rfl: umjwglzuzy-mjzyirqt-crppfokmba (Breztri Aerosphere) 160-9-4.8 mcg/actuation HFA aerosol inhaler, [...] chest x-ray a (more content not included)... [facility] 07-08-2023 Note Please let Lluvia know Chest x ray looks good- no fluid or pneumonia Labs look ok- Please forward all these results to her PCP [facility] 07-08-2023 Note If cardiac studies a re without any acute concerns she may need to F/U with pulmonary for evaluation of CLAIRE [facility] 07-08-2023 Note Device interrogation s reviewed Device check q 6 months [facility] 07-08-2023 Note Lexiscan stress test to assess cardiac perfusion for any significant defect that would warrant a cardiac cath with possible PCI for concerning stenosis Continue GDMT- ASA, lipitor toprol [facility] 07-08-2023 Note HTN is well controll ed 130/84- she does admit at home b/p is lower 100-120/70-80 denied any lightheadedness/dizziness or syncope. Continue lisinopril, toprol and aldactone [facility] 07-08-2023 Note Repeat echocardiogra m to assess MR in light of worsening CLAIRE [facility] 07-08-2023 Note Remains on eliquis w ithout any bleeding tendencies S/P AV node ablation and SUPERVISOR NURSE-D is 98% Bi-V pacing per device interrogation [facility] 07-08-2023 Note [facility] III, currently [...] cardiac cath is needed. RTC after testing [facility] 07-08-2023 Note [facility] CARDIOLOGY PROGR ESS NOTE HPI: Lluvia Moreno is a 82 y.o. 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 Previous HPI per Leandra Rangel [employer]TER [employer]ER 12/30/22: Has been doing well She is on BB and device shows NSVT x1 She has some CLAIRE and LE edema which is chronic. It is stable today , takes bumex as needed, Device check 07/22/2022: SUPERVISOR NURSE-D pacing 92%, normal device function stable lead [...] and so the device was upgraded to SUPERVISOR NURSE-D and old RV pacing lead was extracted. Segment of this elevated echocardiogram was performed which showed improvement of EF from 30 to 45%. Device check performed on July 06, 2019July shows and pacemaker programmed at 70 bpm. Thresholds were noted to be 0.6 and 1.1V respectively. 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 Successful BiV-ICD implantation [...] stenosis. Visit V (more content not included)... [facility] 04-27-2023 History of Present illness [...] like to follow up with her local patient financial coordinator for regular eyecare/comprehensive exams. Will send a [...] (TOPROL XL) 50 mg 24 hr tablet multivitamin,vc-vlla-Nj-FA-min 27-0.4 mg tablet 1 (one) time each [...] history of COPD (chronic obstructive pulmonary disease) ([facility]) and Hypertension. She has a past surgical [...] accurate and complete. documented in this encounter [facility] 12-30-2022 Note [facility] Consul t Note Reason for Consultation: s.p SUPERVISOR NURSE-D upgrade, 6-month follow-up 12/30/22: Has been doing well She is on BB and device shows NSVT x1 She has some CLAIRE and LE edema which is chronic. It is stable today , takes bumex as needed, Device check 07/22/2022: SUPERVISOR NURSE-D pacing 92%, normal device function stable lead [...] and so the device was upgraded to SUPERVISOR NURSE-D and old RV pacing lead was extracted. Segment of this elevated echocardiogram was performed which showed improvement of EF from 30 to 45%. Device check performed on July 06, 2019 [place]itza shows and pacemaker programmed at 70 bpm. Thresholds were noted to be 0.6 and 1.1V respectively. 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 Successful BiV-ICD implantation [...] tablet by mouth (more content not included)... [facility] 12-30-2022 Note Patient here for [...] All other systems reviewed and are negative. [facility] 08-22-2021 Note EXAMINATION: XR CHES [...] by: NAEEM GARCIA Date: 2021-08-22 17:39 [facility] 06-17-2021 Note PROCEDURE: XR FEMUR LT HISTORY: [...] by: NAEEM GARCIA Date: 2021-06-17 11:09 [facility] Evaluation note Diagnosis Esotropia of right eye- Primary Unspecified esotropia Right abducens nerve palsy Double vision Diplopia documented in this encounter [facility] SystemInstructions* Attachments The following attachments cannot be sent through Care Everywhere. * Double Vision ([place] Purpose Family History No [...] and content) DATE CREATED AUTHOR 10/15/2021 [facility] DATE CREATED AUTHOR AUTHOR'S ORGANIZ ATION 05/18/2022 [facility] DATE CREATED AUTHOR AUTHOR'S ORGANIZ ATION 04/27/2023 [facility] DATE CREATED AUTHOR AUTHOR'S ORGANIZ ATION 07/23/2023 [facility] DATE CREATED AUTHOR AUTHOR'S ORGANIZ ATION 10/27/2023 [facility] Reason for Visit (unrecogniz ed section and content) Reason Comments Follow-up Care Teams (unrecognized sec tion and content) 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 [employer] provides no warranty or guarantee of the accuracy or completeness of information in this document.
[2023-11-26 15:41] LABS: Free T4 1.02 ng/dL (0.76-1.46)
[2023-11-26 15:47] LABS: Free T3 3.01 pg/mL (2.18-3.98); Thyroid Stimulating Hormone 5.112 uIU/mL (0.358-3.740)
== END 2023-11-26 14:24 | disposition home or self-care (01) ==
LOC: LAB 14:25
PROVIDERS: PCP Internal Medicine; Visit Provider Internal Medicine
DX: E05.90 Thyrotoxicosis, unspecified without thyrotoxic crisis or storm (principal)
CPT/HCPCS: 36415; 84439; 84443; 84481

== ENCOUNTER 2024-05-23 08:41 | Outpatient (OUT) | payer MEDICARE, OTHER, SELFPAY ==
--- OUTSIDE RECORDS SUMMARY | 2024-05-23 08:59 | XMS_ITS | CCD ---
Author Organization [facility] Care Team Providers Care Falsework Builder Name Role Phone KEANU ISLAS Admitting Unavailable [...] EMILY, DR GRANT Primary Care Unavailable MICHELLE, AHMARCELLOD Attending Unavailable MICHELLE, AHMAD Admitting Unavailable CHERY, SHELDON Consulting Unavailable CHERY, SHELDON Attending Unavailable OBI GOTTLIEBA Admitting Unavailable EMILY, DR GRANT Primary Care Unavailable STEPH, DR MAYRA Denson Admitting Unavailabl e REINECK, DR MAYRA Denson Consulting Unavailabl e YANG, DR GRANT Primary Care Unavailable STEPH, DR MAYRA Denson Attending Unavailabl e ZIEBAMAIRANI, DR JOEL Petersen Consulting Unavailable DESEAN, MERYL Consulting Unavailable DESEAN, MERYL Attending Unavailable EMILY, DR GRANT Primary Care Unavailable DESEAN, MERYL Admitting Unavailable DESEAN, MERYL Admitting Unavailable DESEAN, MERYL Consulting Unavailable DESEAN, MERYL Attending Unavailable CHERY, SHELDON Primary Care Unavailable CHERY, SHELDON Consulting Unavailable CHERY, SHELDON Attending Unavailable CHERY, SHELDON Admitting Unavailable EMILY, DR GRANT Primary Care Unavailable MICHELLE, AHMAD Consulting Unavailable MICHELLE, AHMAD Attending Unavailable EMILY, DR GRANT Primary Care Unavailable MICHELLE, AHMAD Admitting Unavailable GABRIEL GREEN Admitting Unavailable EMILY, DR GRANT Primary Care Unavailable GABRIEL GREEN Attending Unavailable CLAUEBAMAIRANI, DR JOEL Petersen Consulting Unavailable GABRIEL GREEN Consulting Unavailable CHERY, SHELDON Consulting Unavailable CHERY, SHELDON Attending Unavailable CHERY, SHELDON Admitting Unavailable EMILY, DR GRANT Primary Care Unavailable HEMMER, DR DIPTI Montesinos Admitting Unavailable EMILY, DR GRANT Primary Care Unavailable ZIEBER, DR JOEL Petersen Consulting Unavailable HEMMER, DR DIPTI Montesinos Attending Unavailable HEMMER, DR DIPTI Montesinos Consulting Unavailable CHERY, SHELDON Attending Unavailable CHERY, SHELDON Admitting Unavailable CHERY, SHELDON Consulting Unavailable EMILY, DR GRANT Primary Care Unavailable MICHELLE, AHMAD Attending Unavailable YANG, DR GRANT Primary Care Unavailable MICHELLE, AHMAD Admitting Unavailable MICHELLE, AHMAD Consulting Unavailable CHERY, SHELDON Attending Unavailable CHERY, SHELDON Admitting Unavailable EMILY, DR GRANT Primary Care Unavailable ZIEBER, DR JOEL Petersen Consulting Unavailable CHERY, SHELDON Consulting Unavailable ELIUD, KEANU Admitting Unavailable KEANU ISLAS Attending Unavailable EMILY, DR GRANT Primary Care Unavailable ZIEBAMAIRANI, DR JOEL Petersen Consulting Unavailable ELIUDKEANU Oh Consulting Unavailable CHERY, SHELDON Consulting Unavailable CHERY, SHELDON Attending Unavailable CHERY, SHELDON Admitting Unavailable EMILY, DR GRANT Primary Care Unavailable OBROCK, ELIEL S Attending Unavailable OLE YANG Referring Unavailable OLE YANG Primary Care Unavailable Ole Yang MD Unavailable Ole Yang MD Primary Care Provider Thursday EMR TRAINER, Bea Unavailable Debora Saenz RN Unavailable [phone] OLE YANG Attending Unavailable DIPTI ANDERSON Attending Unavailable OLE YANG Attending Unavailable HEMDIPTI CHAIREZ Attending Unavailable DIPTI ANDERSON Attending Unavailable DIPTI ANDERSON Attending Unavailable MICHELLE, AHMAD F Attending Unavailable MICHELLE, AHMAD F Referring Unavailable HEMDIPTI CHAIREZ Attending Unavailable Ole Yang MD Primary Care Provider [phone] KEANU ISLAS Referring Unavailable KEANU ISLAS Referring Unavailable KEANU ISLAS Referring Unavailable NILE GARNICA Referring Unavailable KEANU ISLAS Referring Unavailable KEANU ISLAS Referring Unavailable DENISE, SAMAR Attending Unavailable KEANU ISLAS Referring Unavailable MERYL ANTON Attending Unavailable CLAUDIO SANCHEZ Attending Unavailable KEANU ISLAS Referring Unavailable NILE GARNICA Referring Unavailable KEANU ISLAS Referring Unavailable KEANU ISLAS Referring Unavailable Edna Alcantara LPN Unavailable Unavailable Medications Current Medications Medication Drug Class(es) Dates Sig (Normalized) Sig (Original) [id number] 200 actuat albuterol 0.09 mg/actuat metered dose inhaler (19 sources) beta2-Adrenergic Agonist Start: 12-16-2022 End: 12-26-2023 take 2 puff(s) by inhalation every four hours for wheezing albuterol HFA 90 mcg/act inhaler Indications: Pulmonary emphysema, unspecified emphysema type (CMS/HCC) Inhale 2 puffs every 4 (four) hours if needed for wheezing 18 g 3 11/26/2023 Active apixaban 5 mg oral tablet (18 sources) Factor Xa Inhibitor Start: 03-02-2024 take 1 tablet by mouth in the morning apixaban (Eliquis) 5 MG tablet Indications: Paroxysmal atrial fibrillation (CMS/HCC) Take 1 tablet (5 mg) by mouth in the morning and 1 tablet (5 mg) before bedtime. 200 tablet 3 03/02/2024 Active Start: 02-18-2023 End: 02-17-2023 take 1 tablet by mouth in the morning apixaban (Eliquis) 5 MG tablet Indications: Paroxysmal atrial fibrillation (CMS/HCC) Take 1 tablet (5 mg) by mouth in the morning and 1 tablet (5 mg) before bedtime. 200 tablet 3 02/18/2023 Active Start: 05-28-2022 take 1 tablet by christie th in the morning apixaban (Eliquis) 5 MG tablet Indications: Paroxysmal atrial fibrillation (CMS/HCC) Take 1 tablet (5 mg) by mouth in the morning and 1 tablet (5 mg) before bedtime. 200 tablet 3 02/18/2023 Active ascorbic acid 1000 mg oral tablet (1 source) Vitamin C take 1 tablet by mouth in the morning ascorbic acid, vitamin C, (vitamin C) 1000 mg tablet Take 1 tablet (1,000 mg total) by mouth in the morning. 0 Active aspirin 81 mg delayed release oral tablet (18 sources) Platelet Aggregation Inhibitor, Nonsteroidal Anti-inflammatory Drug aspirin 81 MG EC tablet 1 (one) time each day at the same time. Active atorvastatin 80 mg oral tablet (18 sources) HMG-CoA Reductase Inhibitor Start: 03-02-19 take 1 tablet by mouth once daily atorvastatin (Lipitor) 80 MG tablet Indications: Atherosclerosis of [place] coronary artery of [place] heart without angina pectoris (CMS/HCC) Take 1 tablet (80 mg) by mouth Daily 100 tablet 3 03/02/2024 Active Start: 12-11-2023 atorvastatin ( Lipitor) 80 MG tablet Indications: Atherosclerosis of [place] coronary artery of [place] heart without angina pectoris (CMS/HCC) TAKE 1 TABLET EVERY MORNING 100 tablet 3 12/11/2023 Active Start: 02-18-2023 End: 02-17-2023 take 1 tablet by mouth in the morning atorvastatin (Lipitor) 80 MG tablet Indications: Atherosclerosis of [place] coronary artery of [place] heart without angina pectoris (CMS/HCC) Take 1 tablet (80 mg) by mouth in the morning. 100 tablet 3 02/18/2023 Active Start: 08-03-2022 take 1 tablet by christie th in the morning atorvastatin (Lipitor) 80 MG tablet Indications: Atherosclerosis of [place] coronary artery of [place] heart without angina pectoris (CMS/HCC) Take 1 tablet (80 mg) by mouth in the morning. 100 tablet 3 02/18/2023 Active 120 actuat budesonide 0.16 mg/actuat / formoterol fumarate 0.0048 mg/actuat / glycopyrrolate 0.009 mg/actuat metered dose inhaler (17 sources) Corticosteroid, beta2-Adrenergic Agonist Start: 03-16-2024 take 2 puff(s) by inhalation in the morning Tjltaoh-Pgmxwjvtobp-Gqynwwcukg (Breztri Aerosphere) 160-9-4.8 MCG/ACT aerosol Indications: Pulmonary emphysema, unspecified emphysema type (CMS/HCC) Inhale 2 puffs in the morning and 2 puffs before bedtime. 10.7 g 3 03/16/2024 Active Budeson-Glycopyr rol-Formoterol (Breztri Aerosphere) 160-9-4.8 MCG/ACT aerosol Inhale 2 Inhalation in the morning and 2 Inhalation before bedtime. Active bumetanide 1 mg oral tablet (18 sources) Loop Diuretic End: 08-26-2023 take 1 tablet by mouth once daily as needed bumetanide (Bumex) 1 MG tablet Take 1 mg by mouth Daily PRN Active calcium carbonate 1500 mg / cholecalciferol 200 unt oral tablet (18 sources) Vitamin D take 2 tablets by mouth once daily Calcium Carb-Cholecalciferol 600-200 MG-UNIT tablet Take 2 tablets by mouth 1 (one) time each day at the same time Active cholecalciferol 0.05 mg oral capsule (7 sources) Vitamin D take 1 capsule by mouth once daily cholecalciferol (Vitamin D-3) 50 MCG (2000 UT) capsule Take 2,000 Units by mouth Daily Active cholecalciferol, vitamin D3, 10 mcg (400 unit) capsule 1 (one) time each day at the same time. 0 Active lisinopril 5 mg oral tablet (18 sources) Angiotensin Converting Enzyme Inhibitor Start: 03-02-2024 take 0.5 tablet by mouth in the morning lisinopril 5 MG tablet Indications: Primary hypertension (CMS/HCC) Take 0.5 tablets (2.5 mg) by mouth in the morning. 100 tablet 1 03/02/2024 Active Start: 12-11-2023 lisinopril 5 M G tablet Indications: Primary hypertension (CMS/HCC) TAKE 1 TABLET EVERY MORNING 100 tablet 3 12/11/2023 Active Start: 02-18-2023 End: 02-17-2023 take 1 tablet by mouth in the morning lisinopril 5 MG tablet Indications: Primary hypertension (CMS/HCC) Take 1 tablet (5 mg) by mouth in the morning. 100 tablet 3 02/18/2023 Active Start: 02-18-2023 take 1 tablet by christie th in the morning lisinopril 5 MG tablet Indications: Primary hypertension (CMS/HCC) Take 1 tablet (5 mg) by mouth in the morning. 100 tablet 3 02/18/2023 Active LORazepam 0.5 mg oral tablet (20 sources) Benzodiazepine Start: 05-13-2024 take 1 tablet by mouth every six hours as needed for anxiety and anxiety and anxiety LORazepam (Ativan) 0.5 MG tablet Indications: Anxiety Take 1 tablet (0.5 mg) by mouth every 6 (six) hours if needed for anxiety 90 tablet 05/13/2024 Active Start: 08-21-2021 End: 05-12-2024 take 1 tablet by mouth every six hours as needed for anxiety and anxiety and anxiety LORazepam (Ativan) 0.5 MG tablet Indications: Anxiety Take 1 tablet (0.5 mg) by mouth every 6 (six) hours if needed for anxiety 90 tablet 10/30/2023 05/12/2024 Discontinued (Reorder) lovastatin 40 mg oral tablet (1 source) HMG-CoA Reductase Inhibitor lovastatin (MEVACOR) 40 mg tablet lovastatin 40 mg tablet 0 Active methIMAzole 10 mg oral tablet (18 sources) Thyroid Hormone Synthesis Inhibitor Start: 03-02-2024 methIMAzole (Tapazole) 10 MG tablet Indications: Hyperthyroidism (CMS/HCC) Take 1/2 tablet on Thursday 27 tablet 03/02/2024 Active Start: 12-11-2023 methIMAzole (T apazole) 10 MG tablet Indications: Hyperthyroidism (CMS/HCC) TAKE 1/2 TABLET ON THURSDAY, THURSDAY, THURSDAY, AND THURSDAY 27 tablet 3 12/11/2023 Active methIMAzole (Tap azole) 10 MG tablet 1/2 tablet Orally Thursday, Thursday, , Thursday Active take 0.5 tablet by m outh once daily methIMAzole (TAPAZOLE) 10 mg tablet Take 0.5 tablets every day by oral route. 0 Active 24 hr metoprolol succinate 50 mg extended release oral tablet (18 sources) beta-Adrenergic Fernanda Start: 03-02-2024 take 1 tablet by mouth once daily metoprolol succinate XL (Toprol-XL) 50 MG 24 hr tablet Indications: Paroxysmal atrial fibrillation (CMS/HCC) Take 1 tablet (50 mg) by mouth Daily 100 tablet 3 03/02/2024 Active Start: 12-11-2023 metoprolol suc cinate XL (Toprol-XL) 50 MG 24 hr tablet Indications: Paroxysmal atrial fibrillation (CMS/HCC) TAKE 1 TABLET IN THE MORNING; DO NOT CRUSH OR CHEW 100 tablet 3 12/11/2023 Active Start: 08-03-2022 take 1 tablet by christie th every twenty-four hours in the morning metoprolol succinate XL (Toprol-XL) 50 MG 24 hr tablet Indications: Paroxysmal atrial fibrillation (CMS/HCC) Take 1 tablet (50 mg) by mouth in the morning. Do not crush or chew.. 100 tablet 3 02/18/2023 Active End: 02-17-2023 metoprolol succinate XL (Top rol-XL) 50 MG 24 hr tablet TAKE 1 TABLET DAILY for 100 days 02/17/2023 Discontinued (Reorder) Multiple Vitamins-Minerals (Multi For Her 50+) tablet (17 sources) Multiple Vitamins-Minerals (Multi For Her 50+) tablet 1 (one) time each day at the same time. Active multivitamin,tx-iron-Ca- FA-min 27-0.4 mg tablet (1 source) multivitamin,tx- iron-Ca- FA-min 27-0.4 mg tablet 1 (one) time each day at the same time. 0 Active 10 actuat olodaterol 0.0025 mg/actuat / tiotropium 0.0025 mg/actuat inhalation spray (1 source) Anticholinergic, beta2-Adrenergic Agonist tiotropium-olodatero L 2.5-2.5 mcg/actuation mist Inhale 2 puffs every day by inhalation route. 0 Active PARoxetine hydrochloride 20 mg oral tablet (18 sources) Serotonin Reuptake Inhibitor Start: 025 take 1 tablet by mouth in the morning PARoxetine (Paxil) 20 MG tablet Indications: Anxiety Take 1 tablet (20 mg) by mouth in the morning. 100 tablet 3 03/02/2024 Active Start: 12-11-2023 PARoxetine (Pa xil) 20 MG tablet Indications: Anxiety TAKE 1 TABLET IN THE MORNING 100 tablet 3 12/11/2023 Active Start: 02-18-2023 End: 02-17-2023 take 1 tablet by mouth in the morning PARoxetine (Paxil) 20 MG tablet Indications: Anxiety Take 1 tablet (20 mg) by mouth in the morning. 100 tablet 3 02/18/2023 Active Start: 08-03-2022 take 1 tablet by christie th in the morning PARoxetine (Paxil) 20 MG tablet Indications: Anxiety Take 1 tablet (20 mg) by mouth in the morning. 100 tablet 3 02/18/2023 Active predniSONE 20 mg oral tablet (5 sources) Start: 12-16-2022 take 1 tablet by mouth in the morning predniSONE (DELTASONE) 20 mg tablet TAKE 1 TABLET (20 MG) BY MOUTH IN THE MORNING AND 1 TABLET (20 MG) BEFORE BEDTIME. DO ALL THIS FOR 5 DAYS. 0 12/16/2022 Active End: 11-26-2023 take 1 tablet by mouth once daily predniSONE (Deltasone) 10 MG tablet Take 10 mg by mouth Daily 11/26/2023 Discontinued (Other) spironolactone 25 mg oral tablet (18 sources) Aldosterone Antagonist Start: 03-09-2024 take 1 tablet by mouth once daily spironolactone (Aldactone) 25 MG tablet Indications: Chronic systolic heart failure (CMS/HCC) Take 1 tablet (25 mg) by mouth Daily 90 tablet 3 03/09/2024 Active Start: 12-11-2023 spironolactone (Aldactone) 25 MG tablet Indications: Chronic systolic heart failure (CMS/HCC) TAKE 1 TABLET IN THE MORNING 100 tablet 3 12/11/2023 Active Start: 02-18-2023 End: 02-17-2023 take 1 tablet by mouth in the morning spironolactone (Aldactone) 25 MG tablet Indications: Chronic systolic heart failure (CMS/HCC) Take 1 tablet (25 mg) by mouth in the morning. 100 tablet 3 02/18/2023 Active Start: 02-18-2023 take 1 tablet by christie th in the morning spironolactone (Aldactone) 25 MG tablet Indications: Chronic systolic heart failure (CMS/HCC) Take 1 tablet (25 mg) by mouth in the morning. 100 tablet 3 02/18/2023 Active Completed/Discontinued Medications Medication Drug Class(es) Dates Sig (Normalized) Sig (Original) Cholecalciferol-Vit wilkinson C (Vitamin D3-Vitamin C) 1000-500 UNIT-MG capsule (2 sources) End: 05-27-2023 Cholecalciferol-Vit wilkinson C (Vitamin D3-Vitamin C) 1000-500 UNIT-MG capsule 1 (one) time each day at the same time. 05/27/2023 Discontinued (Therapy completed) codeine phosphate 2 mg/ml / guaiFENesin 20 mg/ml oral solution (2 sources) Opioid Agonist Start: 01-28-2023 End: 02-11-2023 take 5 mL by mouth every six hours for cough guaiFENesin-codeine (Robitussin-AC) 100-10 MG/5ML syrup Indications: COPD with acute exacerbation (CMS/HCC) Take 5 mL by mouth every 6 (six) hours if needed for cough for up to 10 days 240 mL 1 01/28/2023 02/11/2023 Discontinued (Therapy completed) 1 ml denosumab 60 mg/ml prefilled syringe (4 sources) RANK Ligand Inhibitor Start: 03-30-2024 End: 03-30-2024 denosumab (Prolia) injection 60 mg Start: 03-30-2024 End: 03-30-2024 inject 60 mg by subcutaneous injection once 60 mg, Subcutaneous, Once, On Thu03/30/24 at 1015, For 1 dose levoFLOXacin 500 mg oral tablet (2 sources) Quinolone Antimicrobial Start: 01-28-2023 End: 02-11-2023 take 1 tablet by mouth in the morning levoFLOXacin (Levaquin) 500 MG tablet Indications: COPD with acute exacerbation (CMS/HCC) Take 1 tablet (500 mg) by mouth in the morning for 7 days. 7 tablet 01/28/2023 02/11/2023 Discontinued (Therapy completed) Problems Active Problems Problem Classification Problem Date Documented Date Episodic/Chronic Acute bronchitis (2 sources) Acute bronchitis; Translations: [Acute bronchitis, unspecified] 11-26-2023 Episodic Anxiety disorders (19 sources) Anxiety; Translations: [Anxiety disorder, unspecified] Onset: 07-28-2022 07-28-2022 Chronic Asthma (17 sources) Mild intermittent asthma; Translations: [Mild intermittent asthma, uncomplicated] Onset: 09-12-2016 12-16-2022 Chronic Cardiac dysrhythmias (20 sources) Unspecified atrial fibrillation; Translations: [Atrial fibrillation] Onset: 05-16-2022 07-28-2022 Chronic Chronic kidney disease (8 sources) Chronic kidney disease stage 3B ; Translations: [Chronic kidney disease, stage 3b (HCC) (CMS/HCC)] Onset: 02-25-2024 02-25-2024 Chronic Chronic obstructive pulmonary disease and bronchiectasis (20 sources) Chronic obstructive pulmonary disease with (acute) exacerbation; Translations: [Chronic obstructive lung disease] Onset: 05-17-2020 07-28-2022 Chronic Conduction disorders (20 sources) Presence of cardiac pacemaker; Translations: [Automatic implantable cardiac defibrillator in situ] Onset: 11-21-2020 07-28-2022 Chronic Congestive heart failure; nonhypertensive (20 sources) Acute on chronic combined systolic (congestive) and diastolic (congestive) heart failure; Translations: [Chronic combined systolic and diastolic heart failure] Onset: 08-05-2016 Chronic Coronary atherosclerosis and other heart disease (20 sources) Atherosclerosis of coronary artery without angina pectoris; Translations: [Atherosclerotic heart disease of [place] coronary artery without angina pectoris] Onset: 09-24-2015 Resolved: 02-25-2024 12-16-2022 Chronic Disorders of lipid metabolism (1 source) Hyperlipidemia, unspecified; Translations: [HYPERLIPIDEMIA UNSPECIFIED] Onset: 06-20-2021 Chronic Essential hypertension (20 sources) Essential (primary) hypertension; Translations: [Hypertensive disorder] Onset: 09-24-2015 Chronic Heart valve disorders (18 sources) Rheumatic disorders of both mitral and tricuspid valves; Translations: [Non-rheumatic mitral regurgitation ] Onset: 06-14-2021 07-28-2022 Chronic Hypertension with complications and secondary hypertension (10 sources) Benign hypertensive heart disease; Translations: [Hypertensive heart disease with heart failure] Onset: 09-24-2015 02-25-2024 Chronic Immunizations and screening for infectious disease (2 sources) Vaccination needed; Translations: [Encounter for immunization] 11-26-2023 Episodic Menopausal disorders (20 sources) Other primary ovarian failure; Translations: [Primary ovarian failure] Onset: 03-19-2022 Chronic Mood disorders (19 sources) Recurrent major depressive episodes, mild ; Translations: [Major depressive disorder, recurrent, mild] Onset: 07-28-2022 07-28-2022 Chronic Osteoarthritis (20 sources) Primary osteoarthritis, right shoulder; Translations: [Arthropathy, unspecified, shoulder region] Onset: 07-28-2022 07-28-2022 Chronic Osteoporosis (20 sources) Senile osteoporosis; Translations: [Age-related osteoporosis without current pathological fracture] Onset: 07-28-2022 07-28-2022 Chronic Other and ill-defined heart disease (17 sources) Chronic systolic dysfunction of left ventricle; Translations: [Heart disease, unspecified] Onset: 07-28-2022 07-28-2022 Chronic Other circulatory disease (1 source) Personal history of transient ischemic attack (TIA), and cerebral infarction without residual deficits; Translations: [PERS HX TIA AND CI NO RESID DEFICIT] Onset: 03-20-2022 Episodic Other connective tissue disease (1 source) Repeated falls; Translations: [REPEATED FALLS] Onset: 03-20-2022 Episodic Other eye disorders (1 source) Monocular esotropia, right eye; Translations: [Monocular esotropia, right eye] Onset: 04-27-2023 Episodic Laury-; endo-; and myocarditis; cardiomyopathy (except that caused by tuberculosis or sexually transmitted disease) (19 sources) Cardiomyopathy; Translations: [Cardiomyopathy, unspecified] Onset: 08-07-2023 09-01-2023 Chronic Residual codes; unclassified (2 sources) Localized edema; Translations: [Localized edema] 02-11-2023 Episodic Respiratory failure; insufficiency; arrest (adult) (8 sources) Dependence on supplemental oxygen; Translations: [Dependence on supplemental oxygen] Onset: 02-25-2024 02-25-2024 Chronic Thyroid disorders (20 sources) Thyrotoxicosis, unspecified without thyrotoxic crisis or storm; Translations: [Hyperthyroidism] Onset: 07-01-2021 Chronic Unclassified (1 source) CONTACT W/AND (SUSP) EXPOS COVID-19; Translations: [CONTACT W/AND (SUSP) EXPOS COVID-19] Onset: 08-23-2021 Unclassified (2 sources) Chronic atrial fibrillation, unspecified; Translations: [Chronic atrial fibrillation, unspecified] Onset: 08-07-2023 Past or Other Problems Problem Classification Problem Date Documented Date Episodic/Chronic Abdominal pain (17 sources) Inguinal pain; Translations: [Lower abdominal pain, unspecified] Onset: 10-04-2015 Resolved: 05-27-2023 05-27-2023 Episodic Acute cerebrovascular disease (17 sources) Cerebrovascular accident; Translations: [Cerebral infarction, unspecified] Onset: 09-24-2015 Resolved: 05-27-2023 05-27-2023 Chronic Blindness and vision defects (20 sources) Diplopia; Translations: [Diplopia] Onset: 03-20-2022 07-28-2022 Episodic Diabetes mellitus without complication (19 sources) Impaired fasting glycemia; Translations: [Impaired fasting glucose] Onset: 07-28-2022 07-28-2022 Episodic E Codes: Natural/environment (1 source) Overexertion from prolonged static or awkward postures, initial encounter; Translations: [OVEREXERT PROLNG STAT/AWK PST INIT] Onset: 06-18-2021 Episodic Mood disorders (15 sources) Mood disorders Onset: 05-27-2023 05-27-2023 Other aftercare (1 source) FDC (current) use of aspirin; Translations: [MEDICAL TECHNICIAN 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 ASPIRIN] Onset: 06-18-2021 Episodic Other aftercare (1 source) Other chcf (current) drug therapy; Translations: [OTH INTERMEDIATE CURRENT DRUG THERAPY] Onset: 06-18-2021 Episodic Other aftercare (19 sources) Long-term current use of anticoagulant; Translations: [terminal 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 operator (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] Onset: 02-11-2023 02-11-2023 Episodic Other circulatory disease (17 sources) History of cerebrovascular accident without residual deficits; Translations: [Personal history of transient ischemic attack (TIA), and cerebral infarction without residual deficits] Onset: 02-24-2020 12-16-2022 Episodic Other connective tissue disease (4 sources) Pain in right leg; Translations: [PAIN IN RIGHT LEG] Onset: 09-04-2021 Episodic Other connective tissue disease (1 source) Pain in left leg; Translations: [PAIN IN LEFT LEG] Onset: 06-18-2021 Episodic Other connective tissue disease (17 sources) Recurrent falls ; Translations: [Repeated falls] Onset: 07-28-2022 07-28-2022 Episodic Other connective tissue disease (17 sources) Right rotator cuff syndrome; Translations: [Unspecified rotator cuff tear or rupture of right shoulder, not specified as traumatic] Onset: 07-28-2022 07-28-2022 Episodic Other connective tissue disease (17 sources) Tear of right rotator cuff; Translations: [Unspecified rotator cuff tear or rupture of right shoulder, not specified as traumatic] Onset: 09-12-2016 12-16-2022 Episodic Other eye disorders (1 source) Esotropia of right eye; Translations: [Monocular esotropia, right eye] 04-27-2023 Episodic Other eye disorders (1 source) Abducens nerve palsy; Translations: [Sixth [abducent] nerve palsy, right eye] 04-28-2023 Episodic Other liver diseases (17 sources) Elevated liver enzymes level; Translations: [Abnormal levels of other serum enzymes] Onset: 07-28-2022 07-28-2022 Episodic Other lower respiratory disease (6 sources) Other forms of dyspnea; Translations: [OTHER FORMS OF DYSPNEA] Onset: 06-18-2021 Episodic Other lower respiratory disease (3 sources) Shortness of breath; Translations: [SHORTNESS OF BREATH] Onset: 06-04-2021 Episodic Other lower respiratory disease (19 sources) Dyspnea on exertion; Translations: [Other forms of dyspnea] Onset: 08-07-2023 08-26-2023 Episodic Other lower respiratory disease (19 sources) Hypoxia; Translations: [Hypoxemia] Onset: 08-26-2023 08-26-2023 Episodic Other non-traumatic joint disorders (17 sources) Derangement of shoulder; Translations: [Joint derangement, unspecified] Onset: 07-28-2022 07-28-2022 Episodic Other nutritional; endocrine; and metabolic disorders (17 sources) Body mass index 25-29 - overweight; Translations: [Overweight] Onset: 07-28-2022 07-28-2022 Episodic Other screening for suspected conditions (not mental disorders or infectious disease) (17 sources) Lung function testing abnormal; Translations: [Abnormal results of pulmonary function studies] Onset: 07-28-2022 Resolved: 07-30-2022 07-30-2022 Episodic Residual codes; unclassified (4 sources) Other specified postprocedural states; Translations: [OTH SPECIFIED POSTPROCEDURAL STATES] Onset: 08-22-2021 Episodic Residual codes; unclassified (17 sources) Memory impairment; Translations: [Other amnesia] Onset: 05-27-2023 05-27-2023 Episodic Sprains and strains (1 source) Strain of unspecified muscles, fascia and tendons at thigh level, left thigh, initial encounter; Translations: [STRAIN UNS MUSC FASC LT THIGH INIT] Onset: 06-18-2021 Episodic Superficial injury; contusion (19 sources) Contusion of right lower leg, initial encounter; Translations: [Contusion of unspecified part of lower limb] Onset: 09-24-2015 Resolved: 05-27-2023 02-11-2023 Episodic Results Test Name Value Interpretation Reference Range Facility 36on 01-26-2024 36 Spoke with patient a nd made her aware to start taking full tablet of spironolactone starting tomorrow per Dr. Sanchez. Advised her to still cut lisinopril tablet in half. She will continue to track BP's and call us with updates. Patient verbalized understanding. [facility] 36 Patient called to marcello lee aware that since decreasing spironolactone and lisinopril yesterday her BP has been: 147/92 160/108 172/118 I told her to take the other half tablet of spironolactone right now. Any other recommendations? Please advise. Thanks [facility] Office Visiton 01-25-2024 Follow-up visit [id number] Lluvia Moreno 1940 F Date Provider Department Center 01/25/2024 CLAUDIO HASSAN Family History Problem Relation Age of Onset Colon cancer Father Coronary artery disease Brother Hypertension Brother Kidney cancer Brother Family Status - Relation Status Age at Father Brother Level of Service:88007 [place] OFFICE/OUTPATIENT ESTABLISHED MOD MDM 30 MIN Reason for Visit and Comments: Atrial Fibrillation [80] - Had thyroid function last month. Shortness of Breath [630642] Hypertension [418510] Cardiomyopathy [104] Valve Disorder [3372] Coronary Artery Disease [187] Congestive Heart Failure [127] - Admitted to [facility] in August 2023 for COPD, hypertension, and CHF. Pacemaker Check [337] - Per device rep, all looks good, no events . [facility] ALL THYROXINE (T4) FREEon Free T4 [Mass/Vol] 1.02 ng/dL 0.76 - 1. 46 ng/dL [facility] Office Visiton 08-07-2023 Follow-up visit [id number] Lluvia Moreno 1940 F Date Provider Department Center 08/07/2023 CLAUDIO HASSAN Family History Problem Relation Age of Onset Colon cancer Father Coronary artery disease Brother Hypertension Brother Kidney cancer Brother Family Status - Relation Status Age at Father Brother Level of Service:14933 [place] OFFICE/OUTPATIENT ESTABLISHED MOD MDM 30 MIN [facility] Office Visiton 07-08-2023 Follow-up visit [id number] Lluvia Moreno 1940 F Date Provider Department Center 07/08/2023 120-DESEAN, MERYL BH CARD [facility] Family History Problem Relation Age of Onset Colon cancer Father Coronary artery disease Brother Hypertension Brother Kidney cancer Brother Family Status - Relation Status Age at Father Brother Level of Service:17333 [place] OFFICE/OUTPATIENT ESTABLISHED MOD MDM 30 MIN Reason for Visit and Comments: Follow-up [901122] - 6 month follow up Normal [facility] Orders Onlyon 07-08-2023 Orders Only [id number] Lluvia Moreno 1940 F Date Provider Department Home 07/08/2023 [id number], HISTORICAL CARD [facility] Family History Problem Relation Age of Onset Colon cancer Father Coronary artery disease Brother Hypertension Brother Kidney cancer Brother Family Status - Relation Status Age at Father Brother Normal [facility] FREE T3on 05-14-2022 FREE T3 2.54 pg/mlL Normal 2.18-3.98 [facility] Comment on above: Performed By: #### F T3, TSH #### [facility] [address] [place] [address] Dr. Hugo Yang FREE T4on 05-14-2022 Free T4 [Mass/Vol] 1.09 ng/dL Normal 0.76-1.46 [facility] Comment on above: Performed By: #### F T4 #### [facility] [address] [place] [address] Dr. Hugo Yang TSHon 05-14-2022 TSH 3.015 uIU/mL Normal 0.358-3.740 [facility] Comment on above: Performed By: #### F T3, TSH #### [facility] [address] [place] [address] HEAD WO CONon [...] vessel ischemic changes. Electronically authenticated by: JOEL GARCIA Date: 2022-03-19 10:[address] [facility] XR DEXA BONE DENSITYon 03-19 XR [...] High Fracture Risk Electronically authenticated by: JOEL GARCIA Date: 2022-03-19 11:[address] [facility] ECHOCARDIO M/2D COMPLETEon 1 02-22-2021 ECHOCARDIO M/2D COMPLETE Patient: LLUVIA MORENO Exam Date: 12/23/2021 : 1940 Gender:F [facility]ing [facility] Admission #: [id number] Family : DR OLE YANG M.D. Order #: [id number] CLICK HERE TO VIEW EXAM ECHOCARDIOGRAM REPORT [...] M.D. on 12/24/2021 at 15:56 Normal [facility] FREE T3on 11-25-2021 FREE T3 1.97 pg/mlL Critically low 2.18-3.98 [facility] Comment on above: Performed By: #### F T3, TSH #### [facility] [address] [place] [address] [address] Hugo Yang FREE T4on 11-25-2021 Free T4 [Mass/Vol] 1.00 ng/dL Normal 0.76-1.46 [facility] Comment on above: Performed By: #### F T3, TSH #### [facility] [address] [place] [address] [address] Hugo Yang LIVER PROFILEon 11-25-2021 Albumin [Mass/Vol] 3.9 g/dL Normal 3.4-5.0 [facility] Comment on above: Performed By: #### F T3, TSH #### [facility] [address] [place] [address] [address] Hugo Yang Albumin/Globulin [Mass ratio] 1.1 {ratio} Normal [facility] Comment on above: Performed By: #### F T3, TSH #### [facility] [address] [place] [address] [address] Hugo Yang ALP [Catalytic activity/Vol] 94 U/L Normal 46-116 [facility] Comment on above: Performed By: #### F T3, TSH #### [facility] [address] [place] [address] [address] Hugo Yang ALT [Catalytic activity/Vol] 41 U/L Normal 14-59 [facility] Comment on above: Performed By: #### F T3, TSH #### [facility] [address] [place] [address] Dr. Hugo Yang AST [Catalytic activity/Vol] 25 U/L Normal 15-37 [facility] Comment on above: Performed By: #### F T3, TSH #### [facility] [address] [place] [address] [address] Hugo Yang BILI, CONJUGATED 0.2 mg/dL Normal 0.0-0.2 [facility] Comment on above: Performed By: #### F T3, TSH #### [facility] [address] [place] [address] Dr. Hugo Yang Bilirubin [Mass/Vol] 0.8 mg/dL Normal 0.2-1.0 [facility] Comment on above: Performed By: #### F T3, TSH #### [facility] [address] [address] [address] Hugo Yang Globulin (S) [Mass/Vol] 3.5 g/dL Normal [facility] Comment on above: Performed By: #### F T3, TSH #### [facility] [address] [place] [address] [address] Hugo Yang Protein [Mass/Vol] 7.4 g/dL Normal 6.4-8.2 [facility] Comment on above: Performed By: #### F T3, TSH #### [facility] [address] [place], [place] [address] Dr. Hugo Yang TSHon 11-25-2021 TSH 2.892 uIU/mL Normal 0.358-3.740 [facility] Comment on above: Performed By: #### F T3, TSH #### [facility] [address] [place], [place] [address] Dr. Hugo Yang US PIPER DOP LEG [...] right lower extremity. Electronically authenticated by: JOEL GARCIA Date: 2021-09-04 12:18 Normal [facility] Cardiovascular Lab Reporton 08-21-2021 Cardiovascular Lab Report [facility] Patient Name: [facility] MR #: [id number] Physician: Keanu Islas MD Department of Service Date: 08/21/2021 Medicine Birthdate: 1940 Division of Room #: CC Cardiology Adult Cardiovascular Services [address] [place] [address] Cardiovascular Laboratory Report TBIV-UPGRADE PROCEDURE NOTE DATE OF PROCEDURE: 08/21/2021 PERFORMING PHYSICIAN: Dr. Keanu Islas CONSENT: Patient LOCATION: EP Lab PROCEDURE PERFORMED: 1. Implantation of Biventricular ICD ([employer]). 2. Explantation of previously implanted pacemaker generator ([employer]). 3. RV pacing lead and extraction. [...] was then removed and venogram was performed. Corydon catheter was advanced and venogram was performed. This revealed a good posterolateral vein, but other than that, an anterior vein was noted, but no significant other branches were seen. After this, a 0.014 wire was passed through the Corydon-Sarah catheter and traversed into the posterolateral vein. However, the wire was short enough and we could not get a good grasp at the end. So, thereafter, the Corydon-Sarah catheter was removed and 90-degree inner cannula was used to access the vein. A longer 0.014 wire tracked into the vein. Over this, a Learn[employer] Acuity straight lead was advanced and placed [...] t (more content not included)... Normal [facility] Covid-19 PCR ([facility])on SARS-CoV-2 (COVID-19) RNA SONA+probe Ql (Unsp spec) Not detected Normal NOT DETECTED [facility] Comment on above: Result Comment: When [...] for this test is supported by the [place] of Health and Human Service's declaration that [...] used). Performed By: #### B MP #### [facility] [address] [place] [address] Dr. Hugo Yang HEMOGRAM AND PLATELon 2021 Hematocrit (Bld) [Volume fraction] 43.7 % Normal 36.0-48.0 [facility] Comment on above: Performed By: #### C BC #### [facility] [address] [place] [address] Dr. Hugo Yang Hemoglobin (Bld) [Mass/Vol] 14.2 g/dL Normal 12.0-16.0 [facility] Comment on above: Performed By: #### C BC #### [facility] [address] [place] [address] Dr. Hugo Yang MCH (RBC) [Entitic mass] 31.0 pg Normal 26.7-34.0 [facility] Comment on above: Performed By: #### C BC #### [facility] [address] [place] [address] Dr. Hugo Yang MCHC (RBC) [Mass/Vol] 32.5 g/dL Normal 29.9-35.2 [facility] Comment on above: Performed By: #### C BC #### [facility] [address] [place] [address] Dr. Hugo Yang MCV (RBC) [Entitic vol] 95.4 fL Normal 81.0-99.0 [facility] Comment on above: Performed By: #### C BC #### [facility] [address] [place] [address] Dr. Hugo Yang PLT 161 103/ul Normal 150-450 [facility] Comment on above: Performed By: #### C BC #### [facility] [address] [place] [address] Dr. Hugo Yang RBC 4.58 106/ul Normal 4.20-5.40 [facility] Comment on above: Performed By: #### C BC #### [facility] [address] [place] [address] Dr. Hugo Yang WBC 6.9 103/ul Normal 4.0-11.0 [facility] Comment on above: Performed By: #### C BC #### [facility] [address] [place] [address] [address] Hugo Yang PROF CHEM 8 (BAS METB)on Anion gap [Moles/Vol] 11.5 mmol/L Normal [facility] Comment on above: Performed By: #### B MP #### [facility] [address] [place] [address] [address] Hugo Yang Calcium [Mass/Vol] 9.6 mg/dL Normal 8.5-10.1 [facility] Comment on above: Performed By: #### B MP #### [facility] [address] [place] [address] [address] Hugo Yang Chloride [Moles/Vol] 104 mmol/L Normal 98-107 [facility] Comment on above: Performed By: #### B MP #### [facility] [address] [place] [address] [address] Hugo Yang CO2 [Moles/Vol] 30.6 mmol/L Normal 21.0-32.0 [facility] Comment on above: Performed By: #### B MP #### [facility] [address] [place] [address] [address] Hugo Yang Creatinine [Mass/Vol] 1.24 mg/dL Critically high 0.55-1.02 [facility] Comment on above: Performed By: #### B MP #### [facility] [address] [place] [address] [address] Hugo Yang EGFR-AF GAMBIAN 51 mL/min/1.73m2 Critically low >=60 [facility] Comment on above: Performed By: #### B MP #### [facility] [address] [place] [address] [address] Hugo Yang EGFR-NON AF GAMBIAN 42 mL/min/1.73m2 Critically low >=60 [facility] Comment on above: Performed By: #### B MP #### [facility] [address] [place] [address] [address] Hugo Yang Glucose [Mass/Vol] 111 mg/dL Critically high 74-[address] [facility] Comment on above: Performed By: #### B MP #### [facility] [address] [place] [address] Dr. Hugo Yang Potassium [Moles/Vol] 5.1 mmol/L Normal 3.5-5.1 [facility] Comment on above: Performed By: #### B MP #### [facility] [address] [place] [address] Dr. Hugo Yang Sodium [Moles/Vol] 141 mmol/L Normal 136-145 [facility] Comment on above: Performed By: #### B MP #### [facility] [address] [place] [address] Dr. Hugo Yang Urea nitrogen [Mass/Vol] 31.0 mg/dL Critically high 7.0-18.0 [facility] Comment on above: Performed By: #### B MP #### [facility] [address] [place] [address] Dr. Hugo Yang Urea nitrogen/Creatinin e [Mass ratio] 25.0 mg/mg Normal [facility] Comment on above: Performed By: #### B MP #### [facility] [address] [place] [address] Dr. Hugo Yang BNPon 07-30-2021 Natriuretic peptide B (Bld) [Mass/Vol] 1994.0 pg/mL Critically high <=1,800.0 [facility] Comment on above: Performed By: #### C BC #### [facility] [address] [place] [address] Dr. Hugo Yang PROF CHEM 8 (BAS METB)on Anion gap [Moles/Vol] 11.3 mmol/L Normal [facility] Comment on above: Performed By: #### C BC #### [facility] [address] [place] [address] Dr. Hugo Yang Calcium [Mass/Vol] 9.7 mg/dL Normal 8.5-10.1 [facility] Comment on above: Performed By: #### C BC #### [facility] [address] [place] [address] [address] Hugo Yang Chloride [Moles/Vol] 104 mmol/L Normal 98-107 [facility] Comment on above: Performed By: #### C BC #### [facility] [address] [place] [address] [address] Hugo Yang CO2 [Moles/Vol] 29.6 mmol/L Normal 21.0-32.0 [facility] Comment on above: Performed By: #### C BC #### [facility] [address] [place] [address] [address] Hugo Yang Creatinine [Mass/Vol] 1.28 mg/dL Critically high 0.55-1.02 [facility] Comment on above: Performed By: #### C BC #### [facility] [address] [place] [address] [address] Hugo Yang EGFR-AF GAMBIAN 49 mL/min/1.73m2 Critically low >=60 [facility] Comment on above: Performed By: #### C BC #### [facility] [address] [place] [address] [address] Hugo aYng EGFR-NON AF GAMBIAN 40 mL/min/1.73m2 Critically low >=60 [facility] Comment on above: Performed By: #### C BC #### [facility] [address] [place] [address] [address] Hugo Yang Glucose [Mass/Vol] 119 mg/dL Critically high 74-106 [facility] Comment on above: Performed By: #### C BC #### [facility] [address] [place] [address] [address] Hugo Yang Potassium [Moles/Vol] 4.9 mmol/L Normal 3.5-5.1 [facility] Comment on above: Performed By: #### C BC #### [facility] [address] [place] [address] [address] Hugo Yang Sodium [Moles/Vol] 140 mmol/L Normal 136-145 [facility] Comment on above: Performed By: #### C BC #### [facility] [address] [place] [address] [address] Hugo Yang Urea nitrogen [Mass/Vol] 30.0 mg/dL Critically high 7.0-18.0 [facility] Comment on above: Performed By: #### C BC #### [facility] [address] [place] [address] Dr. Hugo Yang Urea nitrogen/Creatinin e [Mass ratio] 23.4 mg/mg Normal [facility] Comment on above: Performed By: #### C BC #### [facility] [address] [place] [address] Dr. Hugo Yang FREE T3on 06-28-2021 FREE T3 2.64 pg/mlL Normal 2.18-3.98 [facility] Comment on above: Performed By: #### F T3, TSH #### [facility] [address] [place] [address] Dr. Hugo Yang FREE T4on 06-28-2021 Free T4 [Mass/Vol] 1.19 ng/dL Normal 0.76-1.46 [facility] Comment on above: Performed By: #### B MP #### [facility] [address] [place] [address] Dr. Hugo Yang LIVER PROFILEon 06-28-2021 Albumin [Mass/Vol] 3.8 g/dL Normal 3.4-5.0 [facility] Comment on above: Performed By: #### F T3, TSH #### [facility] [address] [place] [address] Dr. Hugo Yang Albumin/Globulin [Mass ratio] 1.2 {ratio} Normal [facility] Comment on above: Performed By: #### F T3, TSH #### [facility] [address] [place] [address] Dr. Hugo Yang ALP [Catalytic activity/Vol] 88 U/L Normal 46-116 [facility] Comment on above: Performed By: #### F T3, TSH #### [facility] [address] [place] [address] Dr. Hugo Yang ALT [Catalytic activity/Vol] 54 U/L Normal 14-59 [facility] Comment on above: Performed By: #### F T3, TSH #### [facility] [address] [place] [address] Dr. Hugo Yang AST [Catalytic activity/Vol] 36 U/L Normal 15-37 [facility] Comment on above: Performed By: #### F T3, TSH #### [facility] [address] [place] [address] Dr. Hugo Yang BILI, CONJUGATED 0.3 mg/dL Critically high 0.0-0.2 [facility] Comment on above: Performed By: #### F T3, TSH #### [facility] [address] [place] [address] Dr. Hugo Yang Bilirubin [Mass/Vol] 0.9 mg/dL Normal 0.2-1.0 [facility] Comment on above: Performed By: #### F T3, TSH #### [facility] [address] [place] [address] Dr. Hugo Yang Globulin (S) [Mass/Vol] 3.3 g/dL Normal [facility] Comment on above: Performed By: #### F T3, TSH #### [facility] [address] [place] [address] Dr. Hugo Yang Protein [Mass/Vol] 7.1 g/dL Normal 6.4-8.2 [facility] Comment on above: Performed By: #### F T3, TSH #### [facility] [address] [place] [address] Dr. Hugo Yang PROF CHEM 8 (BAS METB)on Anion gap [Moles/Vol] 13.6 mmol/L Normal [facility] Comment on above: Performed By: #### B MP #### [facility] [address] [place] [address] Dr. Hugo Yang Calcium [Mass/Vol] 9.5 mg/dL Normal 8.5-10.1 [facility] Comment on above: Performed By: #### B MP #### [facility] [address] [place] [address] Dr. Hugo Yang Chloride [Moles/Vol] 105 mmol/L Normal 98-107 [facility] Comment on above: Performed By: #### B MP #### [facility] [address] [place] [address] [address] Hugo Yang CO2 [Moles/Vol] 28.5 mmol/L Normal 21.0-32.0 [facility] Comment on above: Performed By: #### B MP #### [facility] [address] [place] [address] [address] Hugo Yang Creatinine [Mass/Vol] 1.05 mg/dL Critically high 0.55-1.02 [facility] Comment on above: Performed By: #### B MP #### [facility] [address] [place] [address] Dr. Hugo Yang EGFR-AF GAMBIAN >60 Normal >=60 [facility] Comment on above: Performed By: #### B MP #### [facility] [address] [place] [address] Dr. Hugo Yang EGFR-NON AF GAMBIAN 51 mL/min/1.73m2 Critically low >=60 [facility] Comment on above: Performed By: #### B MP #### [facility] [address] [place] [address] [address] Hugo Yang Glucose [Mass/Vol] 113 mg/dL Critically high 74-106 [facility] Comment on above: Performed By: #### B MP #### [facility] [address] [place] [address] Dr. Hugo Yang Potassium [Moles/Vol] 5.1 mmol/L Normal 3.5-5.1 [facility] Comment on above: Performed By: #### B MP #### [facility] [address] [place] [address] [address] Hugo Yang Sodium [Moles/Vol] 142 mmol/L Normal 136-145 [facility] Comment on above: Performed By: #### B MP #### [facility] [address] [place] [address] [address] Hugo Yang Urea nitrogen [Mass/Vol] 29.0 mg/dL Critically high 7.0-18.0 [facility] Comment on above: Performed By: #### B MP #### [facility] [address] [place], [place] [address] Dr. Hugo Yang Urea nitrogen/Creatinin e [Mass ratio] 27.6 mg/mg Normal [facility] Comment on above: Performed By: #### B MP #### [facility] [address] [place], [place] [address] Dr. Hugo Yang TSHon 06-28-2021 TSH 3.067 uIU/mL Normal 0.358-3.740 [facility] Comment on above: Performed By: #### F T3, TSH #### [facility] [address] [place], [place] [address] Dr. Hugo Yang TSH RANGE SEE BELOW Normal [facility] Comment on above: Result Comment: <0.3 4 UIU/ml HYPERTHYROID 0.34-5.60 UIU/ml EUTHYROID >5.60 UIU/ml HYPOTHYROID Performed By: #### F T3, TSH #### [facility] [address] [place], [place] [address] Dr. Hugo Yang Cardiovascular Lab Reporton 06-21-2021 Cardiovascular Lab Report [facility] #: [id number] Physician: Elizabeth Tejeda, Department of M.D. Medicine Service Date: 06/20/2021 Division of Birthdate: 1940 Cardiology Room #: Adult Cardiovascular Services [place] [address] Cardiovascular Laboratory Report FINAL IMPRESSIONS: 1. 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 2. Otherwise nonobstructive coronary arteries angiographically. 3. Moderately reduced global left ventricular systolic function by noninvasive imaging. 4. Normal right-sided heart pressures and wedge pressure. 5. Qulv-[id number] systemic hypertension. 6. Mildly reduced cardiac output/cardiac index. 7. 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 RECOMMENDATIONS: 1. Consider nonischemic etiologies for the patient's cardiomyopathy and heart failure with reduced ejection fraction namely rate/rhythm related causes. 2. Aggressive cardiovascular risk factor modification. 3. Optimal medical therapy for coronary artery disease should include aspirin, high-intensity statin therapy, a beta-fernanda, and an angiotensin converting enzyme inhibitor/receptor fernanda. 4. For heart failure with reduced ejection fraction (HFrEF), would recommend switching angiotensin-converting enzyme inhibitor to Entresto and adding spironolactone. In addition, an SGLT2 inhibitor such as Jardiance or Farxiga is recommended. 5. Consider further investigations for venous stenosis as clinically indicated. 6. Follow up with Dr. Islas and Meryl Anton CNP in the next 2-4 weeks. 7. Follow up with Dr. Yang as scheduled. PROCEDURES: Ultrasound-guided access to the right common femoral vein, ultrasound-guided access of the right common femoral artery, limited femoral arterial angiography, limited femoral venous venography, right heart catheterization, bilateral selective coronary angiography, placement of a 6-Qatari MynxGrip closure device. METHODS: After risks, benefits, [...] femoral vein and artery was obtained. A 6-Qatari 11 cm sheath was placed in each. [...] the procedure. All catheters were removed. A 6-Qatari MynxGrip closure device was deployed per protocol achieving optimal hemostasis over the arterial access site. The venous sheath was removed with application of manual pressure to achieve optimal hemostasis. Overall, the patient tolerated the procedure well. There were no overt complications. She was to be transferred to the [facility] area in stable condition. FINDINGS: Hemodynamics: 1. [...] E (more content not included)... Normal [facility] BNPon 06-18-2021 Natriuretic peptide B (Bld) [Mass/Vol] 3442.0 pg/mL Critically high <=1,800.0 [facility] Comment on above: Result Comment: TEST REPEATED CRITICAL VALUE VERIFIED Performed By: #### L IPID, BNP, CMP #### [facility] [address] [address] [address] Hugo Yang CBC AUTO DIFFon 06-18-2021 BASO # 0.1 103/ul Normal 0.0-0.1 [facility] Comment on above: Performed By: #### C BC #### [facility] [address] [address] [address] Hugo Yang Basophils/100 WBC (Bld) 0.5 % Normal 0.2-2.0 [facility] Comment on above: Performed By: #### C BC #### [facility] [address] [place] [address] Dr. Hugo Yang EO # 0.3 103/ul Normal 0.0-0.7 [facility] Comment on above: Performed By: #### C BC #### [facility] [address] [place] [address] Dr. Hugo Yang Eosinophils/100 WBC (Bld) 2.3 % Normal 0.9-7.0 [facility] Comment on above: Performed By: #### C BC #### [facility] [address] [place] [address] Dr. Hugo Yang Erythrocyte distribution width (RBC) [Ratio] 14.5 % Normal 11.0-15.0 [facility] Comment on above: Performed By: #### C BC #### [facility] [address] [place] [address] Dr. Hugo Yang Hematocrit (Bld) [Volume fraction] 42.3 % Normal 36.0-48.0 [facility] Comment on above: Performed By: #### C BC #### [facility] [address] [place] [address] Dr. Hugo Yang Hemoglobin (Bld) [Mass/Vol] 13.5 g/dL Normal 12.0-16.0 [facility] Comment on above: Performed By: #### C BC #### [facility] [address] [place] [address] Dr. Hugo Yang IG # 0.05 10e3/ul Critically high 0.00-0.03 [facility] Comment on above: Performed By: #### C BC #### [facility] [address] [place] [address] Dr. Hugo Yang IG % 0.4 % Normal 0.0-0.5 [facility] Comment on above: Performed By: #### C BC #### [facility] [address] [place] [address] Dr. Hugo Yang LYMPH # 1.5 103/ul Normal 1.2-3.8 [facility] Comment on above: Performed By: #### C BC #### [facility] [address] [place] [address] Dr. Hugo Yang Lymphocytes/100 WBC (Bld) 12.9 % Critically low 20.5-60.0 [facility] Comment on above: Performed By: #### C BC #### [facility] [address] [place] [address] Dr. Hugo Yang MANUAL DIFF REQ NO Normal [facility] Comment on above: Performed By: #### C BC #### [facility] [address] [place] [address] Dr. Hugo Yang MCH (RBC) [Entitic mass] 30.4 pg Normal 26.7-34.0 [facility] Comment on above: Performed By: #### C BC #### [facility] [address] [place] [address] Dr. Hugo Yang MCHC (RBC) [Mass/Vol] 31.9 g/dL Normal 29.9-35.2 [facility] Comment on above: Performed By: #### C BC #### [facility] [address] [place] [address] Dr. Hugo Yang MCV (RBC) [Entitic vol] 95.3 fL Normal 81.0-99.0 [facility] Comment on above: Performed By: #### C BC #### [facility] [address] [place] [address] Dr. Hugo Yang MONO # 0.7 103/ul Normal 0.3-0.8 [facility] Comment on above: Performed By: #### C BC #### [facility] [address] [place] [address] Dr. Hugo Yang Monocytes/100 WBC (Bld) 6.2 % Normal 1.7-12.0 [facility] Comment on above: Performed By: #### C BC #### [facility] [address] [place] [address] Dr. Hugo Yang NEUT # 8.8 103/ul Critically high 1.4-6.5 [facility] Comment on above: Performed By: #### C BC #### [facility] [address] [address] [address] Hugo Yang Neutrophils/100 WBC (Bld) 77.7 % Critically high 43.0-75.0 [facility] Comment on above: Performed By: #### C BC #### [facility] [address] [address] [address] Hugo Yang Platelet mean volume (Bld) [Entitic vol] 10.4 fL Normal 9.5-13.5 [facility] Comment on above: Performed By: #### C BC #### [facility] [address] [address] [address] Hugo Yang PLT 199 103/ul Normal 150-450 [facility] Comment on above: Performed By: #### C BC #### [facility] [address] [address] [address] Hugo Yang RBC 4.44 106/ul Normal 4.20-5.40 [facility] Comment on above: Performed By: #### C BC #### [facility] [address] [address] [address] Hugo Yang WBC 11.3 103/ul Critically high 4.0-11.0 [facility] Comment on above: Performed By: #### C BC #### [facility] [address] [place] [address] Dr. Hugo Yang [facility] ([facility]on SARS-CoV-2 (COVID-19) RNA SONA+probe Ql (Unsp spec) Not detected Normal NOT DETECTED [facility] Comment on above: Result Comment: This test is not yet approved or cleared by the [place] FDA. When there are no FDA-approved or cleared tests available, and other criteria are met, FDA can make tests available under an emergency access mechanism called an Emergency Use Authorization (EUA). The EUA for this test is supported by the Control Panel Assembler of Health and Human Service's (HHS's) declaration [...] Performed By: #### F T3, TSH #### [facility] [address] [address] [address] Hugo Yang LIPID PROFILEon 06-18-2021 CHOL-HDL RATIO NORM SEE BELOW Normal [facility] Comment on above: Result Comment: 3.3 - 4.4 LOW RISK 4.4 - 7.1 AVERAGE RISK 7.1 - 11.0 MODERATE RISK >11.0 HIGH RISK Performed By: #### L IPID, BNP, CMP #### [facility] [address] [place] [address] Dr. Hugo Yang Cholesterol [Mass/Vol] 127 mg/dL Normal <=200 [facility] Comment on above: Performed By: #### L IPID, BNP, CMP #### [facility] [address] [place] [address] Dr. Hugo Yang Cholesterol in HDL [Mass/Vol] 60 mg/dL Normal 40-60 [facility] Comment on above: Performed By: #### L IPID, BNP, CMP #### [facility] [address] [address] [address] Hugo Yang Cholesterol in LDL [Mass/Vol] 47.4 mg/dL Normal [facility] Comment on above: Performed By: #### L IPID, BNP, CMP #### [facility] [address] [address] [address] Hugo Yang Cholesterol.total/ Cholesterol in HDL [Mass ratio] 2.1 {ratio} Normal [facility] Comment on above: Performed By: #### L IPID, BNP, CMP #### [facility] [address] [place] [address] Dr. Hugo Yang HDL NORMAL > or = 60 mg/dl - LO W CARDIOVASCULAR RISK <40 mg/dl - HIGH CARDIOVASCULAR RISK Normal [facility] Comment on above: Performed By: #### L IPID, BNP, CMP #### [facility] [address] [address] [address] Hugo Yang LDL CALC NORMAL SEE BELOW Normal [facility] Comment on above: Result Comment: <100 mg/dl OPTIMAL 100 - 129 mg/dl NEAR OR ABOVE OPTIMAL 130 - 159 mg/dl BORDERLINE HIGH 160 - 189 mg/dl HIGH >190 mg/dl VERY HIGH Performed By: #### L IPID, BNP, CMP #### [facility] [address] [address] [address] Hugo Yang Triglyceride [Mass/Vol] 98 mg/dL Normal <=150 [facility] Comment on above: Performed By: #### L IPID, BNP, CMP #### [facility] [address] [address] [address] Hugo Yang VLDL CALC 19.6 mg/dL Normal [facility] Comment on above: Performed By: #### L IPID, BNP, CMP #### [facility] [address] [address] [address] Hugo Yang PROF 14(COMP METB)on 022 Albumin [Mass/Vol] 4.0 g/dL Normal 3.4-5.0 [facility] Comment on above: Performed By: #### L IPID, BNP, CMP #### [facility] [address] [address] [address] Hugo Yang Albumin/Globulin [Mass ratio] 1.3 {ratio} Normal [facility] Comment on above: Performed By: #### L IPID, BNP, CMP #### [facility] [address] [address] [address] Hugo Yang ALP [Catalytic activity/Vol] 82 U/L Normal 46-116 [facility] Comment on above: Performed By: #### L IPID, BNP, CMP #### [facility] [address] [address] [address] Hugo Yang ALT [Catalytic activity/Vol] 52 U/L Normal 14-59 [facility] Comment on above: Performed By: #### L IPID, BNP, CMP #### [facility] [address] [address] [address] Hugo Yang Anion gap [Moles/Vol] 12.9 mmol/L Normal [facility] Comment on above: Performed By: #### L IPID, BNP, CMP #### [facility] [address] [address] [address] Hugo Yang AST [Catalytic activity/Vol] 40 U/L Critically high 15-37 [facility] Comment on above: Performed By: #### L IPID, BNP, CMP #### [facility] [address] [address] [address] Hugo Yang Bilirubin [Mass/Vol] 1.7 mg/dL Critically high 0.2-1.0 [facility] Comment on above: Performed By: #### L IPID, BNP, CMP #### [facility] [address] [place] [address] Dr. Hugo Yang Calcium [Mass/Vol] 9.2 mg/dL Normal 8.5-10.1 [facility] Comment on above: Performed By: #### L IPID, BNP, CMP #### [facility] [address] [place] [address] Dr. Hugo Yang Chloride [Moles/Vol] 103 mmol/L Normal 98-107 [facility] Comment on above: Performed By: #### L IPID, BNP, CMP #### [facility] [address] [address] [address] Hugo Yang CO2 [Moles/Vol] 28.9 mmol/L Normal 21.0-32.0 [facility] Comment on above: Performed By: #### L IPID, BNP, CMP #### [facility] [address] [place] [address] Dr. Hugo Yang Creatinine [Mass/Vol] 1.12 mg/dL Critically high 0.55-1.02 [facility] Comment on above: Performed By: #### L IPID, BNP, CMP #### [facility] [address] [address] [address] Hugo Yang EGFR-AF GAMBIAN 57 mL/min/1.73m2 Critically low >=60 [facility] Comment on above: Performed By: #### L IPID, BNP, CMP #### [facility] [address] [address] [address] Hugo Yang EGFR-NON AF GAMBIAN 47 mL/min/1.73m2 Critically low >=60 [facility] Comment on above: Performed By: #### L IPID, BNP, CMP #### [facility] [address] [address] [address] Hugo Yang Globulin (S) [Mass/Vol] 3.1 g/dL Normal [facility] Comment on above: Performed By: #### L IPID, BNP, CMP #### [facility] [address] [place] [address] Dr. Hugo Yang Glucose [Mass/Vol] 128 mg/dL Critically high 74-106 [facility] Comment on above: Performed By: #### L IPID, BNP, CMP #### [facility] [address] [address] [address] Hugo Yang Potassium [Moles/Vol] 4.8 mmol/L Normal 3.5-5.1 [facility] Comment on above: Performed By: #### L IPID, BNP, CMP #### [facility] [address] [place] [address] Dr. Hugo Yang Protein [Mass/Vol] 7.1 g/dL Normal 6.1-8.2 [facility] Comment on above: Performed By: #### L IPID, BNP, CMP #### [facility] [address] [address] [address] Hugo Yang Sodium [Moles/Vol] 140 mmol/L Normal 136-145 [facility] Comment on above: Performed By: #### L IPID, BNP, CMP #### [facility] [address] [address] [address] Hugo Yang Urea nitrogen [Mass/Vol] 23.0 mg/dL Critically high 7.0-18.0 [facility] Comment on above: Performed By: #### L IPID, BNP, CMP #### [facility] [address] [address] [address] Hugo Yang Urea nitrogen/Creatinin e [Mass ratio] 20.5 mg/mg Normal [facility] Comment on above: Performed By: #### L IPID, BNP, CMP #### [facility] [id number] Hugo Yang ECHOCARDIO M/2D COMPLETEon 0 06-12-2021 ECHOCARDIO M/2D COMPLETE Patient: LLUVIA MORENO Exam Date: 06/12/2021 : 1940 Gender:F Ordering : SHELDON GOTTLIEB Admission #: [id number] Family : DR OLE YANG M.D. Order #: [id number] CLICK HERE TO VIEW EXAM ECHOCARDIOGRAM REPORT [...] Area(A4C): 31.00 cm2 Left Atrium Systolic Volume(A2C): 107448 mm3 Left Atrium Systolic Volume(A4C): 053593 mm3 Mitral Valve MV E to A [...] Eyal Lucas M.D. on 06/12/2021 at 16:27 [facility] CBC AUTO DIFFon 06-04-2021 BASO # 0.0 103/ul Normal 0.0-0.1 [facility] Comment on above: Performed By: #### C BC #### [facility] [address] [place] [address] Dr. Hugo Yang Basophils/100 WBC (Bld) 0.6 % Normal 0.2-2.0 [facility] Comment on above: Performed By: #### C BC #### [facility] [address] [place] [address] Dr. Hugo Yang EO # 0.2 103/ul Normal 0.0-0.7 [facility] Comment on above: Performed By: #### C BC #### [facility] [address] [place] [address] Dr. Hugo Yang Eosinophils/100 WBC (Bld) 3.0 % Normal 0.9-7.0 [facility] Comment on above: Performed By: #### C BC #### [facility] [address] [place] [address] Dr. Hugo Yang Erythrocyte distribution width (RBC) [Ratio] 13.7 % Normal 11.0-15.0 [facility] Comment on above: Performed By: #### C BC #### [facility] [address] [place] [address] Dr. Hugo Yang Hematocrit (Bld) [Volume fraction] 42.1 % Normal 36.0-48.0 [facility] Comment on above: Performed By: #### C BC #### [facility] [address] [place] [address] Dr. Hugo Yang Hemoglobin (Bld) [Mass/Vol] 13.3 g/dL Normal 12.0-16.0 [facility] Comment on above: Performed By: #### C BC #### [facility] [address] [place] [address] Dr. Hugo Yang IG # 0.02 10e3/ul Normal 0.00-0.03 [facility] Comment on above: Performed By: #### C BC #### [facility] [address] [place] [address] Dr. Hugo Yang IG % 0.3 % Normal 0.0-0.5 [facility] Comment on above: Performed By: #### C BC #### [facility] [address] [place] [address] Dr. Hugo Yang LYMPH # 1.9 103/ul Normal 1.2-3.8 [facility] Comment on above: Performed By: #### C BC #### [facility] [address] [place] [address] Dr. Hugo Yang Lymphocytes/100 WBC (Bld) 29.2 % Normal 20.5-60.0 [facility] Comment on above: Performed By: #### C BC #### [facility] [address] [place] [address] Dr. Hugo Yang MANUAL DIFF REQ NO Normal [facility] Comment on above: Performed By: #### C BC #### [facility] [address] [place] [address] Dr. Hugo Yang MCH (RBC) [Entitic mass] 30.4 pg Normal 26.7-34.0 [facility] Comment on above: Performed By: #### C BC #### [facility] [address] [place] [address] Dr. Hugo Yang MCHC (RBC) [Mass/Vol] 31.6 g/dL Normal 29.9-35.2 [facility] Comment on above: Performed By: #### C BC #### [facility] [address] [place] [address] Dr. Hugo Yang MCV (RBC) [Entitic vol] 96.3 fL Normal 81.0-99.0 [facility] Comment on above: Performed By: #### C BC #### [facility] [address] [place] [address] Dr. Hugo Yang MONO # 0.6 103/ul Normal 0.3-0.8 [facility] Comment on above: Performed By: #### C BC #### [facility] [address] [place] [address] Dr. Hugo Yang Monocytes/100 WBC (Bld) 8.5 % Normal 1.7-12.0 [facility] Comment on above: Performed By: #### C BC #### [facility] [address] [place] [address] Dr. Hugo Yang NEUT # 3.8 103/ul Normal 1.4-6.5 [facility] Comment on above: Performed By: #### C BC #### [facility] [address] [place] [address] Dr. Hugo Yang Neutrophils/100 WBC (Bld) 58.4 % Normal 43.0-75.0 [facility] Comment on above: Performed By: #### C BC #### [facility] [address] [place] [address] Dr. Hugo Yang Platelet mean volume (Bld) [Entitic vol] 10.9 fL Normal 9.5-13.5 [facility] Comment on above: Performed By: #### C BC #### [facility] [address] [place] [address] Dr. Hugo Yang PLT 163 103/ul Normal 150-450 [facility] Comment on above: Performed By: #### C BC #### [facility] [address] [place] [address] Dr. Hugo Yang RBC 4.37 106/ul Normal 4.20-5.40 [facility] Comment on above: Performed By: #### C BC #### [facility] [address] [place] [address] Dr. Hugo Yang WBC 6.6 103/ul Normal 4.0-11.0 [facility] Comment on above: Performed By: #### C BC #### [facility] [address] [place] [address] Dr. Hugo Yang PROF CHEM 8 (BAS METB)on Anion gap [Moles/Vol] 13.9 mmol/L Normal [facility] Comment on above: Performed By: #### F T3, TSH #### [facility] [address] [place] [address] Dr. Hugo Yang Calcium [Mass/Vol] 9.5 mg/dL Normal 8.5-10.1 [facility] Comment on above: Performed By: #### F T3, TSH #### [facility] [address] [address] [address] Hugo Yang Chloride [Moles/Vol] 105 mmol/L Normal 98-107 [facility] Comment on above: Performed By: #### F T3, TSH #### [facility] [address] [address] [address] Hugo Yang CO2 [Moles/Vol] 27.7 mmol/L Normal 22.0-30.0 [facility] Comment on above: Performed By: #### F T3, TSH #### [facility] [address] [address] [address] Hugo Yang Creatinine [Mass/Vol] 1.19 mg/dL Critically high 0.52-1.04 [facility] Comment on above: Performed By: #### F T3, TSH #### [facility] [address] [place] [address] Dr. Hugo Yang EGFR-AF GAMBIAN 53 mL/min/1.73m2 Critically low >=60 [facility] Comment on above: Performed By: #### F T3, TSH #### [facility] [address] [place] [address] Dr. Hugo Yang EGFR-NON AF GAMBIAN 44 mL/min/1.73m2 Critically low >=60 [facility] Comment on above: Performed By: #### F T3, TSH #### [facility] [address] [address] [address] Hugo Yang Glucose [Mass/Vol] 112 mg/dL Critically high 74-106 [facility] Comment on above: Performed By: #### F T3, TSH #### [facility] [address] [address] [address] Hugo Yang Potassium [Moles/Vol] 4.6 mmol/L Normal 3.4-5.0 [facility] Comment on above: Performed By: #### F T3, TSH #### [facility] [address] [address] [address] Hugo Yang Sodium [Moles/Vol] 142 mmol/L Normal 137-145 [facility] Comment on above: Performed By: #### F T3, TSH #### [facility] [address] [address] [address] Hugo Yang Urea nitrogen [Mass/Vol] 28.0 mg/dL Critically high 7.0-18.0 [facility] Comment on above: Performed By: #### F T3, TSH #### [facility] [id number] Hugo Yang Urea nitrogen/Creatinin e [Mass ratio] 23.5 mg/mg Normal [facility] Comment on above: Performed By: #### F T3, TSH #### [facility] [address] [place] [address] Dr. Hugo Yang TROPONIN, HIGH SENSITIVITYon 06-04-2021 HSTROP 27.1 pg/mL Normal 4.0-35.5 [facility] Comment on above: Result Comment: CUT- OFF POINTS HAVE BEEN ESTABLISHED BASED ON THE FOURTH UNIVERSAL DEFINITIONS OF MYOCARDIAL INFARCTION. THE UPPER REFERENCE LIMIT (URL) OF TROPONIN, DEFINED THE 99TH PERCENTILE OF cTnI DISTRIBUTION IN A REFERENCE POPULATION, HAS BEEN CONFIRMED THE DECISION THRESHOLD FOR [place] DIAGNOSIS. Performed By: #### F T3, TSH #### [facility] [address] [place] [address] Dr. Hugo Yang XR CHEST 1 Von [...] to prior study. Electronically authenticated by: JOEL GARCIA Date: 2021-06-04 11:09 Normal [facility] Cardiovascular Lab Reporton 12-28-2020 Cardiovascular Lab Report [facility] Patient Name: Jasmine [facility] MR #: [id number] Physician: Keanu Islas MD Department of Service Date: 12/28/2020 Medicine Birthdate: 1940 Division of Room #: CC Cardiology Adult Cardiovascular Services [facility] [address] [place] [address] Cardiovascular Laboratory Report AV NODE ABLATION PROCEDURE [...] prepped and draped. Under ultrasound guidance, an 8-Qatari venous access was procured, and a short [...] Islas MD Date Trans: 12/28/2020 04:43 P/donna [id number] cc: Ole Yang M.D. [address] [place] [address] [facility] Cardiovascular Lab Reporton 11-19-2020 Cardiovascular Lab Report [facility] Patient Name: Jasmine [facility] MR #: [id number] Physician: Keanu Islas MD Department of Service Date: 11/19/2020 Medicine Birthdate: 1940 Division of Room #: Cardiology Adult Cardiovascular Services [place] [address] Cardiovascular Laboratory Report PACEMAKER IMPLANT PROCEDURE NOTE DATE OF PROCEDURE: 11/19/20 PERFORMING PHYSICIAN: Dr. Keanu Islas CONSENT: Patient LOCATION: EP Lab PROCEDURE PERFORMED: 1. Implantation of pacemaker ([employer]) 2. Ultrasound guided venous access INDICATIONS: [...] using modified seldinger technique using a 5 Qatari micro-puncture needle on one occasion and 0.35 wire was placed. Local infiltration of 1% Lidocaine was performed, and an incision was created in the left upper chest. Dissection was then performed using cautery down to the fascial plane above the muscle. A small pocket was created for the device. 8 Qatari Safesheath was placed over the wire. Then a His sheath was advanced over a glide wire into the right ventricle. The wire and dilator was then removed. An active fixation [employer] pacing lead was then delivered through the His sheath to the right ventricle. I identified an area where pacing revealed a QRS of 120ms in unipolar configuration. After confirmation of lead position on orthogonal views (PATEL and UKRAINIAN) to confirm septal position, the screw was [...] immediate procedural complications were noted. Device info: [employer] Accolade MRI EL SR IS1 Model# L310 Serial# [id number] RV lead: Model# [id number] (59cms) Serial# [id number] Sensin.3mV Threshold: 0.6V@0.4ms Impedance: 655 Ohms POST [...] 11/19/2020 (more content not included)... Normal [facility] Vital Signs Date Time Vital Sign Value Performing Clinician Facility 03-30-2024 09:57-0500 Body height 167.6 cm Ole Yang MD Work Phone: [facility] 03-30-2024 09:57-0500 Body mass index (BMI) [Ratio] 28.25 kg/m2 Ole Yang MD Work Phone: [facility] 03-30-2024 09:57-0500 Body weight 79.38 kg Ole Yang MD Work Phone: [facility] 03-30-2024 09:57-0500 Diastolic blood pressure 78 mm[Hg] Ole Yang MD Work Phone: [facility] 03-30-2024 09:57-0500 Heart rate 69 /min Ole Yang MD Work Phone: [facility] 03-30-2024 09:57-0500 SaO2% (BldA) [Mass fraction] 98 % Ole Yang MD Work Phone: [facility] 03-30-2024 09:57-0500 Systolic blood pressure 128 mm[Hg] Ole Yang MD Work Phone: [facility] 02-25-2024 10:03-0500 Body height 167.6 cm Dipti Hemmer PA Work Phone: [facility] 02-25-2024 10:03-0500 Body mass index (BMI) [Ratio] 28.89 kg/m2 Dipti Hemmer PA Work Phone: [facility] 02-25-2024 10:03-0500 Body weight 81.19 kg Dipti Hemmer PA Work Phone: [facility] 02-25-2024 10:03-0500 Diastolic blood pressure 66 mm[Hg] Dipti Hemmer PA Work Phone: [facility] 02-25-2024 10:03-0500 Heart rate 74 /min Dipti Hemmer PA Work Phone: [facility] 02-25-2024 10:03-0500 Respiratory rate 20 /min Dipti Hemmer PA Work Phone: [facility] 02-25-2024 10:03-0500 SaO2% (BldA) [Mass fraction] 99 % Dipti Hemmer PA Work Phone: [facility] 02-25-2024 10:03-0500 Systolic blood pressure 108 mm[Hg] Dipti Hemmer PA Work Phone: [facility] 12-02-2023 10:08-0400 Body height 167.6 cm Teri Martinez MD Work Phone: [facility] 12-02-2023 10:08-0400 Body mass index (BMI) [Ratio] 28.73 kg/m2 Teri Martinez MD Work Phone: [facility] 12-02-2023 10:08-0400 Body weight 80.74 kg Teri Martinez MD Work Phone: [facility] 12-02-2023 10:08-0400 Diastolic blood pressure 70 mm[Hg] Teri Martinez MD Work Phone: [facility] 12-02-2023 10:08-0400 Heart rate 87 /min Teri Martinez MD Work Phone: [facility] 12-02-2023 10:08-0400 Respiratory rate 18 /min Teri Martinez MD Work Phone: [facility] 12-02-2023 10:08-0400 Systolic blood pressure 102 mm[Hg] Teri Martinez MD Work Phone: [facility] 11-26-2023 09:56-0400 Body height 170.2 cm Dipti Hemmer PA Work Phone: [facility] 11-26-2023 09:56-0400 Body mass index (BMI) [Ratio] 27.82 kg/m2 Dipti Hemmer PA Work Phone: [facility] 11-26-2023 09:56-0400 Body weight 80.56 kg Dipti Hemmer PA Work Phone: [facility] 11-26-2023 09:56-0400 Diastolic blood pressure 74 mm[Hg] Dipti Hemmer PA Work Phone: [facility] Comment on above: home BP monitor 141/ 81 11-26-2023 09:56-0400 Heart rate 71 /min Dipti Hemmer PA Work Phone: [facility] 11-26-2023 09:56-0400 Respiratory rate 16 /min Dipti Varelamer PA Work Phone: [facility] 11-26-2023 09:56-0400 SaO2% (BldA) [Mass fraction] 99 % Dipti Varelamer PA Work Phone: [facility] 11-26-2023 09:56-0400 Systolic blood pressure 128 mm[Hg] Dipti Varelamer PA Work Phone: [facility] Comment on above: home BP monitor 141/ 81 02-11-2023 14:43-0500 Body height 170.2 cm Ole Yang MD Work Phone: [facility] 02-11-2023 14:43-0500 Body mass index (BMI) [Ratio] 26.94 kg/m2 Ole Yang MD Work Phone: [facility] 02-11-2023 14:43-0500 Body weight 78.02 kg Ole Yang MD Work Phone: [facility] 02-11-2023 14:43-0500 Diastolic blood pressure 70 mm[Hg] Ole Yang MD Work Phone: [facility] 02-11-2023 14:43-0500 Heart rate 76 /min Ole Yang MD Work Phone: [facility] 02-11-2023 14:43-0500 Systolic blood pressure 126 mm[Hg] Ole Yang MD Work Phone: [facility] Healthcare Encounters Encounter Date Encounter Type Care Provider Facility Start: 05-12-2024 End: 05-13-2024 Refill Annalise Paniagua LPN [facility] Comment on above: Anxiety Start: 04-25-2024 [facility] Start: 03-30-2024 End: 03-30-2024 Bamboo flowsheet Ole Yang MD Work Phone: [facility] Start: 03-30-2024 End: 03-30-2024 Bamboo flowsheet Ole Yang MD Work Phone: [facility] Start: 03-30-2024 End: 03-30-2024 Office outpatient visit 10 minutes Ole Yang MD Work Phone: [facility] Comment on above: Pulmonary emphysema, unspecified emphysema type (CMS/HCC) (Primary Dx); Age-related osteoporosis without current pathological fracture (CMS/HCC) Start: 03-30-2024 End: 03-30-2024 ambulatory OLE YANG Not Available Start: 02-29-2024 ambulatory [facility] Start: 02-25-2024 End: 02-25-2024 Bamboo flowsheet Dipti Anderson PA Work Phone: [facility] Start: 02-25-2024 End: 02-25-2024 Bamboo flowsheet Dipti Anderson PA Work Phone: [facility] Start: 02-25-2024 End: 02-25-2024 Office outpatient visit 25 minutes Dipti Anderson PA Work Phone: [facility] Comment on above: Panlobular emphysema (CMS/HCC) (Primary Dx); Benign hypertensive heart disease with heart failure (CMS/HCC); Impaired fasting glucose; Coronary artery disease involving [place] coronary artery of [place] heart without angina pectoris (CMS/HCC); Age-related osteoporosis without current pathological fracture (CMS/HCC); Cardiomyopathy, unspecified (CMS/HCC); Longstanding persistent atrial fibrillation (CMS/HCC); Chronic obstructive pulmonary disease, unspecified (CMS/HCC); Chronic kidney disease, stage 3b (HCC) (CMS/HCC); 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); Chronic atrial fibrillation, unspecified (CMS/HCC); Supplemental oxygen dependent Start: 02-25-2024 End: 02-25-2024 ambulatory DIPTI ANDERSON Not Available Start: 02-04-2024 ambulatory [facility] Start: 01-25-2024 End: 01-25-2024 ambulatory [facility] Start: 12-08-2023 ambulatory [facility] Start: 12-03-2023 ambulatory [facility] Start: 12-03-2023 Encounter for preprocedural cardiovascular examination [facility] Start: 12-02-2023 End: 12-02-2023 Bamboo juana Martinez MD Work Phone: [facility] Start: 12-02-2023 End: 12-02-2023 Bamboo flowstod Martinez MD Work Phone: [facility] Start: 12-02-2023 End: 12-02-2023 Office outpatient visit 25 minutes Teri Martinez MD Work Phone: [facility] Comment on above: Hyperthyroidism (CMS /HCC) (Primary Dx); Multinodular goiter (CMS/HCC); Longstanding persistent atrial fibrillation (CMS/HCC) Start: 12-02-2023 End: 12-02-2023 ambulatory TERI MARTINEZ Not Available Start: 11-26-2023 End: 11-26-2023 Bamboo flowsheet Dipti Anderson PA Work Phone: [facility] Start: 11-26-2023 End: 11-26-2023 Bamboo flowsheet Dipti Anderson PA Work Phone: [facility] Start: 11-26-2023 End: 11-26-2023 Clinisync Result Encounter Generic External Data Provider [facility] Department Unsolicited Start: 11-26-2023 End: 11-26-2023 Office outpatient visit 25 minutes Dipti Anderson PA Work Phone: [facility] Comment on above: Pulmonary emphysema, unspecified emphysema type (CMS/HCC) (Primary Dx); Need for vaccination; Dyspnea on exertion; Hypoxia; Primary hypertension (CMS/HCC); 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); Acute bronchitis, unspecified organism Start: 11-26-2023 End: 11-26-2023 ambulatory DIPTI ANDERSON Not Available Start: 10-29-2023 End: 10-30-2023 Refill Dipti Anderson PA Work Phone: [facility] Comment on above: Anxiety Start: 10-26-2023 ambulatory [facility] Start: 10-16-2023 ambulatory [facility] Start: 09-01-2023 End: 09-01-2023 ambulatory DIPTI ANDERSON Not Available Start: 08-26-2023 End: 08-26-2023 ambulatory DIPTI M HEMMER Not Available Start: 08-14-2023 ambulatory NILE DANIKA [facility] Start: 08-07-2023 End: 08-07-2023 [facility] Start: 08-04-2023 End: 08-04-2023 ambulatory [facility] Start: 07-27-2023 ambulatory [facility] Start: 07-22-2023 End: 07-22-2023 ambulatory OLE YANG Not Available Start: 07-08-2023 End: 07-08-2023 ambulatory MERYL [place] Start: 05-27-2023 End: 05-27-2023 ambulatory DIPTI M JUSTIN Not Available Start: 04-27-2023 End: 04-27-2023 ambulatory [facility] Start: 04-27-2023 End: 04-27-2023 Office outpatient visit 15 minutes [facility] OD Work Phone: [facility] Comment on above: Esotropia of right e ye (Primary Dx); Right abducens nerve palsy; Double vision Start: 02-11-2023 End: 02-11-2023 Office outpatient visit 15 minutes Ole Yang MD Work Phone: [facility] Comment on above: Leg hematoma, right, initial encounter (Primary Dx); Current use of technician terminal and repeater anticoagulation; Localized edema Start: 05-14-2022 End: 05-15-2022 ambulatory TERI NURGH Facility: Start: 03-19-2022 End: 03-20-[address] DIPTI ANDERSON Facility:[facility] Start: 12-23-2021 End: 12-24-2021 ambulatory SHELDON BERNSTEINER Facility:[facility] Start: 11-25-2021 End: 11-26-2021 ambulatory TERI MARTINEZ Facility:[facility] Start: 09-04-2021 End: 09-05-2021 ambulatory SHELDON CHERY Facility:[facility] Start: 08-23-2021 Encounter for other preprocedural examination SHELDON CHERY [facility] Start: 08-23-2021 Encounter for preprocedural laboratory examination SHELDON GOTTLIEB [facility] Start: 08-22-2021 End: 08-23-2021 ambulatory KEANU ISLAS Facility:[facility] Start: 08-21-2021 End: 08-22-2021 ambulatory KEANU ISLAS Facility:[facility] Start: 08-20-2021 End: 08-21-2021 ambulatory SHELDON CHERY Facility:[facility] Start: 08-20-2021 End: 08-21-2021 Encounter for other preprocedural examination SHELDON CHERY Facility:[facility] Start: 07-30-2021 End: 07-31-2021 ambulatory SHELDON CHERY Facility:[facility] Start: 06-28-2021 End: 06-29-2021 ambulatory MERYL ANTON Facility:[facility] Start: 06-20-2021 Encounter for other specified special examinations SHELDON GOTTLIEB [facility] Start: 06-18-2021 End: 06-19-2021 ambulatory SHELDON GOTTLIEB Facility:[facility] Start: 06-18-2021 End: 06-19-2021 Encounter for other specified special examinations MERYL ANTON Facility:[facility] Start: 06-17-2021 End: 06-17-[address] MAYRA CHOI Facility:[facility] Start: 06-12-2021 End: 06-13-2021 ambulatory SHELDON GOTTLIEB Facility:[facility] Start: 06-04-2021 End: 06-04-2021 ambulatory GABRIEL GREEN Facility:[facility] Start: 12-28-2020 End: 12-29-2020 ambulatory KEANU ISLAS Facility:[facility] Start: 11-19-2020 End: 11-20-2020 ambulatory KEANU ELIUD Facility:[facility] Procedures Date Procedure Procedure Detail Performing Clinician Start: 11-26-2023 ALL THYROXINE (T4) FREE Generic External Data Provider Start: 04-27-2023 Follow-up visit Follow-up ELIEL NICHOLS Plan of Treatment Date Care Activity Detail Author Start: 06-01-2024 End: 06-01-2024 Patient encounter procedure 06/01/2024 10:00 AM EDT Office Visit [facility] [address] [place] [address] Teri Martinez MD [address] [place] [address] [facility] Start: 05-30-2024 End: 05-30-2024 Patient encounter procedure 05/30/2024 9:30 AM EDT Office Visit [facility] [address] [place] [address] Dipti Anderson PA [address] [facility] [address] [place] [address] [facility] Start: 05-26-2024 Medicare Annual Wellness (AWV) Medicare Annual Wellness (AWV) [facility] Start: 04-26-2024 Tobacco Screening Tobacco Screening [facility] Start: 03-30-2024 End: 03-30-2024 Patient encounter procedure 03/30/2024 10:15 AM EST Office Visit [facility] [address] [place] [address] Ole Yang MD [address] [place] [address] Arrived [facility] Comment on above: Arrived Start: 02-25-2024 End: 02-24-2025 25-hydroxyvitamin D3 [Mass/volume] in Serum or Plasma Vitamin D 25 hydroxy Total Lab Routine Coronary artery disease involving [place] coronary artery of [place] heart without angina pectoris (CMS/HCC) Age-related osteoporosis without current pathological fracture (CMS/HCC) Expected: 02/25/2024 (Approximate), Expires: 02/24/2025 [facility] Comment on above: Expected: 02/25/2024 (Approximate), Expi res: 02/24/2025 Start: 02-25-2024 End: 02-24-2025 Basic metabolic 1998 panel - Serum or Plasma Basic metabolic panel Lab Routine Benign hypertensive heart disease with heart failure (CMS/HCC) Impaired fasting glucose Expected: 02/25/2024 (Approximate), Expires: 02/24/2025 [facility] Healthcare Comment on above: Expected: 02/25/2024 (Approximate), Expi res: 02/24/2025 Start: 02-25-2024 End: 02-24-2025 CBC W Auto Differential panel - Blood CBC and differential Lab Routine 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 (CMS/HCC) Expected: 02/25/2024 (Approximate), Expires: 02/24/2025 [facility] Work Phone: Comment on above: Expected: 02/25/2024 (Approximate), Expi res: 02/24/2025 Start: 02-25-2024 End: 02-24-2025 Hemoglobin A1c/Hemoglobin.total in Blood Hemoglobin A1c Lab Routine Impaired fasting glucose Expected: 02/25/2024 (Approximate), Expires: 02/24/2025 [facility] Healthcare Comment on above: Expected: 02/25/2024 (Approximate), Expi res: 02/24/2025 Start: 02-25-2024 End: 02-24-2025 Lipid 1996 panel - Serum or Plasma Lipid panel Lab Routine Coronary artery disease involving [place] coronary artery of [place] heart without angina pectoris (CMS/HCC) Expected: 02/25/2024 (Approximate), Expires: 02/24/2025 [facility] Comment on above: Expected: 02/25/2024 (Approximate), Expi res: 02/24/2025 Start: 02-25-2024 End: 02-25-2024 Patient encounter procedure [facility] Comment on above: [facility] Start: 12-04-2023 Adult BMI Screening Adult BMI Screening [facility] Start: 12-02-2023 End: 12-01-2024 Hepatic function 2000 panel - Serum or Plasma Hepatic function panel Lab Routine Hyperthyroidism (CMS/HCC) Expected: 12/02/2023 (Approximate), Expires: 12/01/2024 [facility] Comment on above: Expected: 12/02/2023 (Approximate), Expi res: 12/01/2024 Start: 12-02-2023 End: 12-01-2024 Thyrotropin [Units/volume] in Serum or Plasma TSH Lab Routine Hyperthyroidism (CMS/HCC) Expected: 12/02/2023 (Approximate), Expires: 12/01/2024 [facility] Comment on above: Expected: 12/02/2023 (Approximate), Expi res: 12/01/2024 Start: 12-02-2023 End: 12-01-2024 Thyroxine (T4) free [Mass/volume] in Serum or Plasma T4, free Lab Routine Hyperthyroidism (CMS/HCC) Expected: 12/02/2023 (Approximate), Expires: 12/01/2024 [facility] Comment on above: Expected: 12/02/2023 (Approximate), Expi res: 12/01/2024 Start: 12-02-2023 End: 12-01-2024 Triiodothyronine (T3) Free [Mass/volume] in Serum or Plasma T3, free Lab Routine Hyperthyroidism (CMS/HCC) Expected: 12/02/2023 (Approximate), Expires: 12/01/2024 [facility] Work Phone: Comment on above: Expected: 12/02/2023 (Approximate), Expi res: 12/01/2024 Start: 12-02-2023 End: 12-02-2023 Patient encounter procedure [facility] Comment on above: Arrived Start: 11-26-2023 End: 11-26-2023 Patient encounter procedure [facility] Comment on above: Arrived Start: 10-18-2023 Influenza vaccination Influenza Vaccine (#1) [facility] Start: 08-17-2007 Fall Risk Screening Fall Risk Screening [facility] Start: 1961 DTaP,Tdap and Td Vaccines (1 - Tdap) DTaP,Tdap and Td Vaccines (1 - Tdap) [facility] Start: 1960 Adult BMI Follow Up Plan Adult BMI Follow Up Plan [facility] Start: 1954 Depression [facility] Start: 1942 Medicare Annual Wellness Visit Medicare Annual Wellness Visit [facility] Immunizations Immunization Date Immunization Notes Care Provider Candace mueller 12-10-2023 SARS-COV-2 (COVID-19 ) vaccine, mRNA, spike protein, LNP, PF, robert-sucrose, 30 mcg/0.3 mL Dipti Hemmer PA Work Phone: [facility] 11-26-2023 Influenza, High-dose Seasonal, Quadrivalent, Preservative Free Dipti Hemmer PA Work Phone: [facility] 01-01-2023 SARS-COV-2 (COVID-19 ) vaccine, mRNA, spike protein, LNP, PF, robert-sucrose, 30 mcg/0.3 mL Dipti Hemmer PA Work Phone: [facility] 01-01-2023 zoster vaccine recombinant K aren Hemmer PA Work Phone: [facility] 12-10-2022 ABRYSVO - Respirator y syncytial virus (RSV), vaccine, bivalent, protein subunit RSV prefusion F, diluent reconstituted, 0.5 mL, PF Dipti Hemmer PA Work Phone: [facility] 11-26-2022 Influenza, Seasonal, Quadrivalent, Adjuvanted Dipti Hemmer PA Work Phone: [facility] 11-26-2022 influenza virus vacc ine, unspecified formulation Dipti Hemmer PA Work Phone: [facility] 04-16-2022 zoster vaccine recombinant K aren Hemmer PA Work Phone: [facility] 12-10-2021 influenza, high dose seasonal, preservative-free Dipti Hemmer PA Work Phone: [facility] 12-10-2021 Moderna SARS-CoV-2 50mcg/0.5mL Booster Dipti Hemmer PA Work Phone: [facility] 01-17-2021 influenza, high dose seasonal, preservative-free Dipti Hemmer PA Work Phone: [facility] 01-10-2020 Seasonal trivalent influenza vaccine, adjuvanted, preservative free Dipti Hemmer PA Work Phone: [facility] 02-23-2019 pneumococcal polysaccharide vaccine, 23 valent Dipti Hemmer PA Work Phone: [facility] 11-25-2018 Seasonal trivalent influenza vaccine, adjuvanted, preservative free Dipti Hemmer PA Work Phone: [facility] 06-25-2018 pneumococcal conjuga te vaccine, 13 valent Dipti Hemmer PA Work Phone: [facility] 12-02-2017 Influenza, High-dose Seasonal, Quadrivalent, Preservative Free Dipti Hemmer PA Work Phone: [facility] 12-11-2016 Influenza, High-dose Seasonal, Quadrivalent, Preservative Free Dipti Hemmer PA Work Phone: [facility] 08-17-2007 pneumococcal polysaccharide vaccine, 23 valent Dipti Hemmer PA Work Phone: [facility] Payers Date Payer Category Payer Private Health Insurance I MED ICARE SUPPLEMENT [id number] 2022 Unknown COMMERCIAL [employer]ME RCIAL - GENERIC PLAN [id number] 2022-Present [phone] [address] [address] [place] [address] [id number] 2004 Medicare [id number] 1959 Medicare [id number] 1959 Unknown [id number] 1942 Unknown [id number] 2.16.840.1.712230.3.579.2 .647 1942 Unknown [id number] 2.16.840.1.317956.3.579.2 .647 1942 Unknown [id number] 2.16.840.1.573448.3.579.2 .647 1942 Unknown [id number] 2.16.840.1.982102.3.579.2 .593 1942 Unknown [id number] 2.16.840.1.496850.3.579.2 .593 1942 Unknown [id number] 2.16.840.1.660957.3.579.2 .593 1942 Unknown [id number] 2.16.840.1.460541.3.579.2 .593 1942 Unknown [id number] 2.16.840.1.877594.3.579.2 .593 1942 Unknown [id number] 2.16.840.1.512969.3.579.2 .593 1942 Unknown [id number] 2.16.840.1.166672.3.579.2 .593 1942 Unknown [id number] 2.16.840.1.775401.3.579.2 .593 1942 Unknown [id number] 2.16.840.1.115788.3.579.2 .593 1942 Unknown [id number] 2.16.840.1.382288.3.579.2 .593 1942 Unknown [id number] 2.16.840.1.159450.3.579.2 .593 1942 Unknown [id number] 2.16.840.1.935572.3.579.2 .593 1942 Unknown [id number] 2.16.840.1.983292.3.579.2 .593 1942 Unknown [id number] 2.16.840.1.862952.3.579.2 .593 1942 Unknown [id number] 2.16.840.1.340951.3.579.2 .593 1942 Unknown [id number] 2.16.840.1.530200.3.579.2 .1286 1942 Unknown [id number] 2.16.840.1.168578.3.579.2 .1259 1942 Unknown [id number] 2.16.840.1.576656.3.579.2 .1259 1942 Unknown [id number] 2.16.840.1.423470.3.579.2 .1259 1942 Unknown [id number] 2.16.840.1.070138.3.579.2 .1259 1942 Unknown [id number] 2.16.840.1.213650.3.579.2 .1259 1942 Unknown [id number] 2.16.840.1.545702.3.579.2 .1259 1942 Unknown [id number] 2.16.840.1.711454.3.579.2 .1259 1942 Unknown [id number] 2.16.840.1.983366.3.579.2 .1259 Social History Date Type Detail Facility Start: 07-28-2022 End: 08-13-2022 Tobacco smoking status NHIS Never smoked tobacco [facility] Start: 07-28-2022 End: 08-13-2022 Tobacco use and exposure Smokeless tobacco non-user [facility] Start: 02-11-2023 End: 02-12-2025 Alcoholic beverage intake Lifetime non-drinker (finding) [facility] Start: 05-27-2023 End: 10-29-2023 History of Social function [facility] Work Phone: Start: 05-27-2023 End: 10-29-2023 [id number] Health Literacy [facility] Work Phone: How often do you nee d to have someone help you when you read instructions, pamphlets, or other written material from your doctor or pharmacy [SILS] Often [facility] Work Phone: Within the last year , have you been afraid of your partner or ex-partner? No [facility] Are you now , , , , never or living with a partner? [facility] How often to you hav e a drink containing alcohol? Never [facility] Do you feel stress - tense, restless, nervous, or anxious, or unable to sleep at night because your mind is troubled all the time - these days [OSQ] To some extent [facility] (I/We) worried wheth er (my/our) food would run out before (I/we) got money to buy more. Never true [facility] Start: 1940 Sex assigned at Not on file P [facility] Clinical Notes 06-17-2021 to 05-12-2024 Telephone Encounter - Annalise Paniagua LPN - 05/12/2024 3:07 PM EDTTelephone Encounter - Annalise Paniagua LPN - 05/12/2024 3:07 PM ETHANTOle Yang MD - 03/30/2024 10:15 AM EST Note Date & Type Note Facility 05-12-2024 Telephone encounter Note Needs sent to [facility] 05-12-2024 Miscellaneous Notes Needs sent to [facility] documented in this encounter [facility] 03-30-2024 History of Presen t illness Narrative Images from the original note were not included. Subjective Patient ID: Lluvia Moreno is a 83 y.o. female who presents for prolia injection. Pt her for prolia injection Dexa scan up to date No new complaints Current Outpatient Medications on File Prior to Visit Medication Sig Dispense Refill apixaban (Eliquis) 5 MG tablet Take 1 tablet (5 mg) by mouth in the morning and 1 tablet (5 mg) before bedtime. 200 tablet 3 aspirin 81 MG EC tablet 1 (one) time each day at the same time. atorvastatin (Lipitor) 80 MG tablet Take 1 tablet (80 mg) by mouth Daily 100 tablet 3 Udvhvrm-Pescqufqrlw-Ulhrszqlyg (Breztri Aerosphere) 160-9-4.8 MCG/ACT aerosol Inhale 2 puffs in the morning and 2 puffs before bedtime. 10.7 g 3 bumetanide (Bumex) 1 MG tablet Take 1 mg by mouth Daily PRN Calcium Carb-Cholecalciferol 600-200 MG-UNIT tablet Take 2 tablets by mouth 1 (one) time each day at the same time cholecalciferol (Vitamin D-3) 50 MCG (2000 UT) capsule Take 2,000 Units by mouth Daily lisinopril 5 MG tablet Take 0.5 tablets (2.5 mg) by mouth in the morning. 100 tablet 1 LORazepam (Ativan) 0.5 MG tablet Take 1 tablet (0.5 mg) by mouth every 6 (six) hours if needed for anxiety 90 tablet 0 methIMAzole (Tapazole) 10 MG tablet Take 1/2 tablet on Thursday 27 tablet 0 metoprolol succinate XL (Toprol-XL) 50 MG 24 hr tablet Take 1 tablet (50 mg) by mouth Daily 100 tablet 3 Multiple Vitamins-Minerals (Multi For Her 50+) tablet 1 (one) time each day at the same time. PARoxetine (Paxil) 20 MG tablet Take 1 tablet (20 mg) by mouth in the morning. 100 tablet 3 spironolactone (Aldactone) 25 MG tablet Take 1 tablet (25 mg) by mouth Daily 90 tablet 3 albuterol HFA 90 mcg/act inhaler Inhale 2 puffs every 4 (four) hours if needed for wheezing 18 g 3 No current facility-administered medications on file prior to visit. I have reviewed and reconciled the history and medication list with the patient today. No Known Allergies Social History Tobacco Use Smoking status: Never Smokeless tobacco: Never Vaping Use Vaping status: Never Used Substance Use Topics Alcohol use: Never Drug use: Never Family History Problem Relation Name Age of Onset Cancer Mother Hypertension Mother Mental illness Mother Cancer Father Hypertension Father Past Medical History: Diagnosis Date A-fib (CMS/HCC) Arthritis CAD (coronary artery disease) (CMS/HCC) Cerebrovascular accident (CMS/HCC) Disease of thyroid gland (CMS/HCC) H/O bladder infections Hearing loss Heart disease History of atrial fibrillation History of being hospitalized 08/28/2023 COPD Exacerbation History of echocardiogram 2017 EF 60-65% History of heart artery stent History of knee problem History of pacemaker History of sinus problem History of varicose veins Hyperlipidemia (CMS/HCC) Hypertension (CMS/HCC) Hyperthyroidism (CMS/HCC) Toxic multinodular goiter (CMS/HCC) Visual impairment Past Surgical History: Procedure Laterality Date APPENDECTOMY AV NODE ABLATION 2020 BLADDER SURGERY CARDIAC CATHETERIZATION 2021 CARDIAC PACEMAKER PLACEMENT 2020 CARDIAC PACEMAKER REMOVAL 2021 ICD implantation HYSTERECTOMY TENDON REPAIR right thumb dr schultz TOTAL KNEE ARTHROPLASTY 2003 dr gonzalez left/ right dr inman 2010 Visit Vitals BP 128/78 Pulse 69 Ht 5' 6 Wt 175 lb SpO2 98% BMI 28.25 kg/m Smoking Status Never BSA 1.92 m Review of Systems Objective Physical Exam Constitutional: General: She is not in acute distress. Appearance: Normal appearance. She is normal weight. She is not ill-appearing. Neurological: Mental Status: She is alert. Psychiatric: Mood and Affect: Mood normal. Behavior: Behavior normal. Thought Content: Thought content normal. Assessment/Plan Diagnoses and all orders for this visit: Pulmonary emphysema, unspecified emphysema type ([facility]/HCC) - This is a chronic medical condition that is stable since last assessment. No changes in treatment are suggested at this time. Age-related osteoporosis without current pathological fracture (CMS/HCC) - denosumab (Prolia) injection 60 mg Follow up in about 6 months (around 09/27/2024) for Routine F/U. documented in this encounter [facility] 01-09-2025 History of Presen t illness Narrative Subjective Patient ID: Lluvia Moreno is a 83 y.o. female who presents for COPD. Lluvia is present today for follow up COPD. She is currently on O2 continuous, she does 1 liter if sitting/laying down and 3 liters with exertion and is doing well on the oxygen. She is currently on Albuterol inhaler and Breztri. Has been having some variability in her BP readings. Does check it at home regularly. Daughter states that it is likely due to inaccurate technique. She has been working on it. Takes it at times right after being up walking around. If she sits down for a while it is better. States, It's me, I know it is. States she must be checking it wrong, worries about her BP being elevated. Admits it is better after she has been sitting for a while. Current Outpatient Medications on File Prior to Visit Medication Sig Dispense Refill lisinopril 5 MG tablet TAKE 1 TABLET EVERY MORNING (Patient taking differently: Take 0.5 tablets by mouth in the morning.) 100 tablet 3 albuterol HFA 90 mcg/act inhaler Inhale 2 puffs every 4 (four) hours if needed for wheezing 18 g 3 apixaban (Eliquis) 5 MG tablet Take 1 tablet (5 mg) by mouth in the morning and 1 tablet (5 mg) before bedtime. 200 tablet 3 aspirin 81 MG EC tablet 1 (one) time each day at the same time. atorvastatin (Lipitor) 80 MG tablet TAKE 1 TABLET EVERY MORNING 100 tablet 3 Mcklywl-Khlxccijicu-Ivbuskhpoi (Breztri Aerosphere) 160-9-4.8 MCG/ACT aerosol Inhale 2 Inhalation in the morning and 2 Inhalation before bedtime. bumetanide (Bumex) 1 MG tablet Take 1 mg by mouth Daily PRN Calcium Carb-Cholecalciferol 600-200 MG-UNIT tablet Take 2 tablets by mouth 1 (one) time each day at the same time cholecalciferol (Vitamin D-3) 50 MCG (2000 UT) capsule Take 2,000 Units by mouth Daily LORazepam (Ativan) 0.5 MG tablet Take 1 tablet (0.5 mg) by mouth every 6 (six) hours if needed for anxiety 90 tablet 0 methIMAzole (Tapazole) 10 MG tablet TAKE 1/2 TABLET ON THURSDAY, THURSDAY, THURSDAY, AND THURSDAY 27 tablet 3 metoprolol succinate XL (Toprol-XL) 50 MG 24 hr tablet TAKE 1 TABLET IN THE MORNING; DO NOT CRUSH OR CHEW 100 tablet 3 Multiple Vitamins-Minerals (Multi For Her 50+) tablet 1 (one) time each day at the same time. PARoxetine (Paxil) 20 MG tablet TAKE 1 TABLET IN THE MORNING 100 tablet 3 spironolactone (Aldactone) 25 MG tablet TAKE 1 TABLET IN THE MORNING 100 tablet 3 No current facility-administered medications on file prior to visit. I have reviewed and reconciled the history and medication list with the patient today. No Known Allergies Social History Tobacco Use Smoking status: Never Smokeless tobacco: Never Vaping Use Vaping status: Never Used Substance Use Topics Alcohol use: Never Drug use: Never Family History Problem Relation Name Age of Onset Cancer Mother Hypertension Mother Mental illness Mother Cancer Father Hypertension Father Past Medical History: Diagnosis Date A-fib (CMS/HCC) Arthritis CAD (coronary artery disease) (CMS/HCC) Cerebrovascular accident (CMS/HCC) Disease of thyroid gland (CMS/HCC) H/O bladder infections Hearing loss Heart disease History of atrial fibrillation History of being hospitalized 08/28/2023 COPD Exacerbation History of echocardiogram 2017 EF 60-65% History of heart artery stent History of knee problem History of pacemaker History of sinus problem History of varicose veins Hyperlipidemia (CMS/HCC) Hypertension (CMS/HCC) Hyperthyroidism (CMS/HCC) Toxic multinodular goiter (CMS/HCC) Visual impairment Past Surgical History: Procedure Laterality Date APPENDECTOMY AV NODE ABLATION 2020 BLADDER SURGERY CARDIAC CATHETERIZATION 2021 CARDIAC PACEMAKER PLACEMENT 2020 CARDIAC PACEMAKER REMOVAL 2021 ICD implantation HYSTERECTOMY TENDON REPAIR right thumb dr schultz TOTAL KNEE ARTHROPLASTY 2003 [address] gonzalez left/ right dr inman 2010 Visit Vitals BP 108/66 Pulse 74 Resp 20 Ht 5' 6 Wt 179 lb SpO2 99% BMI 28.89 kg/m Smoking Status Never BSA 1.94 m Review of Systems Constitutional: Positive for fatigue. Negative for chills and fever. Respiratory: Positive for shortness of breath. Negative for cough and wheezing. Cardiovascular: Negative for chest pain, palpitations and leg swelling. Gastrointestinal: Negative for abdominal pain, constipation, diarrhea, nausea and vomiting. Skin: Negative for rash. Objective Physical Exam Constitutional: General: She is not in acute distress. Appearance: Normal appearance. She is well-developed. HENT: Head: Normocephalic and atraumatic. Eyes: General: No scleral icterus. Conjunctiva/sclera: Conjunctivae normal. Cardiovascular: Rate and Rhythm: Normal rate and regular rhythm. Heart sounds: Normal heart sounds. No murmur heard. Pulmonary: Effort: Pulmonary effort is normal. No respiratory distress. Breath sounds: Decreased air movement present. No wheezing, rhonchi or rales. Comments: Using O2 via nasal canula Skin: General: Skin is warm and dry. Neurological: General: No focal deficit present. Mental Status: She is alert and oriented to person, place, and time. Gait: Gait abnormal. Comments: Seated walker for ambulation Psychiatric: Mood and Affect: Mood normal. Speech: Speech normal. Behavior: Behavior normal. Assessment/Plan Diagnoses and all orders for this visit: Panlobular emphysema (CMS/HCC) Breathing stable with supplemental oxygen. Pulse ox WNL in the office today. She has noticed and improvement in her breathing with the Breztri and O2. Benign hypertensive heart disease with heart failure (CMS/HCC) - CBC and differential; Future - Basic metabolic panel; Future Reviewed proper technique for checking her BP at home. Encouraged pt to only check her BP once a day and have someone help her to make sure it is accurate. Pt voices understanding and thinks it will be helpful for her, able to worry less. Impaired fasting glucose - Hemoglobin A1c; Future - Basic metabolic panel; Future Will recheck with upcoming fasting labs. Coronary artery disease involving [place] coronary artery of [place] heart without angina pectoris (CMS/HCC) - CBC and differential; Future - Lipid panel; Future - Vitamin D 25 hydroxy Total; Future The patient is seeing a center medical director for this condition, treatment is deferred to that specialist. Correspondence from that specialist and any available testing were reviewed during today's visit. Age-related osteoporosis without current pathological fracture (CMS/HCC) - Vitamin D 25 hydroxy Total; Future Will continue to monitor with routine DEXA scans. Continue Vitamin D and Calcium supplements daily. Cardiomyopathy, unspecified (CMS/HCC) The patient is seeing a center medical director for this condition, treatment is deferred to that specialist. Correspondence from that specialist and any available testing were reviewed during today's visit. Longstanding persistent atrial fibrillation (CMS/HCC) The patient is seeing a center medical director for this condition, treatment is deferred to that specialist. Correspondence from that specialist and any available testing were reviewed during today's visit. Chronic obstructive pulmonary disease, unspecified (CMS/HCC) See above. Chronic kidney disease, stage 3b (HCC) (CMS/HCC) Will continue to monitor with routine labs. 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) The patient is seeing a center medical director for this condition, treatment is deferred to that specialist. Correspondence from that specialist and any available testing were reviewed during today's visit. Chronic atrial fibrillation, unspecified (CMS/HCC) The patient is seeing a center medical director for this condition, treatment is deferred to that specialist. Correspondence from that specialist and any available testing were reviewed during today's visit. Supplemental oxygen dependent Using oxygen concentrator, O2 via nasal cannula. Oxygen is medically necessary for patient due to hypoxia and significant CLIARE without it. Follow up in about 3 months (around 05/27/2024) for Medicare Wellness Visit. documented in this encounter [facility] 01-25-2024 Note [facility] follow-up note Reason for cardiology visit: Follow-up on coronary artery disease, atrial fibrillation, pacemaker, hypertension and hyperlipidemia HPI: 01/25/2024 The patient is here today for follow-up visit with her daughter. She states that her exertional dyspnea is much better after she was started on continuous oxygen by her PCP. She denies any chest comfort at rest or with exertion. She denies orthopnea or paroxysmal nocturnal dyspnea or dizziness or palpitations or legs edema. Patient states that she drinks 1 cup of coffee in the morning, half cup of tea with lunch and she drinks only 12 ounce of water a day 08/07/2023 Lluvia Moreno is a 83 y.o. female patient states that she thinks [...] by mouth at bedtime., Disp: , Rfl: wxbyfjgnnp-hohovskn-jinxvlsjjt (Breztri Aerosphere) 160-9-4.8 mcg/actuation HFA aerosol inhaler, [...] Rfl: 3 Last Recorded Vitals Visit Vitals BP 92/62 (BP Location: Right arm, Patient Position: Sitting) Pulse 75 Ht 1.702 m (5' 7 ) Wt 78.9 kg (174 lb) SpO2 97% Comment: on 1L O2 BMI 27.25 kg/m??? Smoking Status Never BSA 1.93 m??? Physical Examination: GENERAL: alert and oriented x3, [...] PSYCH: appropriate mood, affect, and judgement. Labs: 11/26/2023 TSH 5.1, free T41.02, free T33.01 08/29/2023 White blood count 7.5, hemoglobin 12.6, hematocrit 39.2, platelets 175 Sodium 135, potassium 4.8, BUN 29, creatinine 1.52, GFR 33, glucose 194, calcium 9, magnesium 2 Total bilirubin 0.7, AST 26, ALT 32, alk phos 97, total protein 7.3 07/08/2023 White blood count 6.3, hemoglobin 13, hematocrit 41.6, platelets 205 Sodium 140, potassium 5.3, glucose 140, BUN 30, creatinine 1.35 GFR 46, calcium 9.9, ALT 48, AST 35, alk phos 91, total protein 7.4 BNP 1488 normal less than 1800, Last Images: Echo 08/05/2023 Lexiscan nuclear stress test 08/04/2023 Rest and peak stress ECG findings (more content not included)... [facility] 12-02-2023 History of Presen t illness Narrative Lluvia Moreno is a 83 y.o. female Teri Martinez MD presents with chief complaint of Thyroid Problem and Follow-up HPI: Interim history 11/2023 Followup visit on 12/02/2023 for hyperthyroidism. She is on 10 mg methimazole half-tablet 4days a week. , lab on 11/2023 TSH 5.11, FT4 1.02 (0.76-1.46), FT3 3.01( 2.18-3.98). Interim history 05/2023 Followup visit on 06/03/2023 for hyperthyroidism. She is on 10 mg methimazole half-tablet 4days a week. , lab on 05/2023 TSH 4.14, FT4 1.16 (0.76-1.46), FT3 2.26( 2.18-3.98). Interim history 11/2022. Followup visit on 11/26/2021 for hyperthyroidism. She is on 10 mg methimazole half-tablet 4days a week. had pacemaker on 12/2020, lab on 11/2022 TSH 3.24, FT4 1.12 (0.76-1.46), FT3 2.64 ( 2.18-3.98). Interim history 05/2022. Followup visit on 05/27/2021 for hyperthyroidism. She is on 10 mg methimazole half-tablet 4days a week. had pacemaker on 12/2020, lab on 05/2022 TSH 3.9, FT4 1.09 (0.76-1.46), FT3 2.54 ( 2.18-3.98). Interim history 11/2021. Followup visit on 11/27/2021 for hyperthyroidism. She is on 10 mg methimazole half-tablet 4days a week. had pacemaker on 12/2020, lab on 11/25/2021 TSH 2.81, FT4 1 (0.76-1.46), FT3 1.93 ( 2.18-3.98). Interim history 05/2021. Followup visit on 05/29/2021 for hyperthyroidism. She is on 10 mg methimazole half-tablet 4days a week. had pacemaker on 12/2020 Interim history 05/2020. Followup visit on 06/13/2020 for hyperthyroidism. She is on 10 mg methimazole half-tablet 4days a week. Lab IN 05/2020 TSH 2.6, free T4 1.04 mid-normal (0.78-2.19), free T3 mildly low at 2.49(2.77-5.27). Interim history 11/04. Followup visit on 11/01/2018 for hyperthyroidism. She is on 10 mg methimazole half-tablet six days a week. Lab done, TSH 4.64, free T4 0.94 mid-normal, free T3 mildly low at 2.66 (1.77-5.27). Interim History: 07/04 Followup visit on 06/30/18 for hyperthyroidism, TSH 3.97, free T4 1.08, free T3 2.74 (2.77-5.27), ALT 55 (9-52), AST 32 (14-36), and she is on methimazole 10 mg once a day and metoprolol 50 mg. Interim History: 04/06 Followup visit on 03/31/18 for lab done in in [facility]: TSH still suppressed 0.07, free T4 back to normal 1.99 (0.78-2.19), free T3 normal 4.66 (2.77-5.27), ALT 89 (9-52), AST 53 (14-36), so a little bit mildly high. Interim history: 01/2018 Follow-up visit 01/28/2018 for hyperthyroidism. Ultrasound shows right lobe 4.4 x 1.5 x 1.4 cm; left lobe 4.8 x 1.8 x 1.6 with multiple hypoechoic small cysts, largest 6 mm. Labs done. Free T4 2.22 (0.78-2.19), TSH 0.02, free T3 5.24 (2.77-5.77). TPO 8, TG antibody less than 10, TRAb 0.71 and she is currently on methimazole 10 mg once a day and metoprolol 50 once a day. HPI: 01/03 New patient sent from Dr. Ole Yang for hyperthyroidism, TSH 0.03, free T4 2.52 (0.8-1.8), and she has afib, on anticoagulation, and digoxin, and she feel palpitations sometimes, and diarrhea, and never have any thyroid problem before, and she say last year was within normal limits. Denies family history of thyroid disease. SUBJECTIVE: MEDICATIONS: Current Outpatient Medications Medication Instructions albuterol HFA 90 mcg/act inhaler 2 puffs, Inhalation, Every 4 hours PRN apixaban (ELIQUIS) 5 mg, Oral, 2 times daily aspirin 81 MG EC tablet Every 24 hours atorvastatin (LIPITOR) 80 mg, Oral, Daily Xqeduae-Xtghhhzkedo-Kpbkazqnxg (Breztri Aerosphere) 160-9-4.8 MCG/ACT aerosol 2 Inhalation , 2 times daily bumetanide (BUMEX) 1 mg, Daily Calcium Carb-Cholecalciferol 600-200 MG-UNIT tablet 2 tablets, Every 24 hours lisinopril 5 mg, Oral, Daily LORazepam (ATIVAN) 0.5 mg, Oral, Every 6 hours PRN methIMAzole (Tapazole) 10 MG tablet 1/2 tablet Orally Thursday, Thursday, , Thursday metoprolol succinate XL (TOPROL-XL) 50 mg, Oral, Daily, Do not crush or chew. Multiple Vitamins-Minerals (Multi For Her 50+) tablet Every 24 hours PARoxetine (PAXIL) 20 mg, Oral, Every morning spironolactone (ALDACTONE) 25 mg, Oral, Daily ALLERGIES: No Known Allergies Past Medical History: Diagnosis Date A-fib (CMS/HCC) Arthritis CAD (coronary artery disease) (CMS/HCC) Cerebrovascular accident (CMS/HCC) Disease of thyroid gland (CMS/HCC) H/O bladder infections Hearing loss Heart disease History of atrial fibrillation History of being hospitalized 08/28/2023 COPD Exacerbation History of echocardiogram 2017 EF 60-65% History of heart artery stent History of knee problem History of pacemaker History of sinus problem History of varicose veins Hyperlipidemia (CMS/HCC) Hypertension (CMS/HCC) Hyperthyroidism (CMS/HCC) Toxic multinodular goiter (CMS/HCC) Visual impairment Past Surgical History: Procedure Laterality Date APPENDECTOMY AV NODE ABLATION 2020 BLADDER SURGERY CARDIAC CATHETERIZATION 2021 CARDIAC PACEMAKER PLACEMENT 2020 CARDIAC PACEMAKER REMOVAL 2021 ICD implantation HYSTERECTOMY TENDON REPAIR right thumb dr schultz TOTAL KNEE ARTHROPLASTY 2003 dr gonzalez left/ right dr inman 2010 REVIEW OF SYMPTOMS: 14 POINT OF SYSTEM REVIEWED AND NEGATIVE OBJECTIVE: Visit Vitals BP 102/70 Pulse 87 Resp 18 Ht 5' 6 Wt 178 lb BMI 28.73 kg/m Smoking Status Never BSA 1.94 m Physical Exam Constitutional: Appearance: Normal appearance. She is normal weight. HENT: Head: Normocephalic and atraumatic. Right Ear: External ear normal. Nose: Nose normal. Mouth/Throat: Pharynx: Oropharynx is clear. Eyes: Extraocular Movements: Extraocular movements intact. Pupils: Pupils are equal, round, and reactive to light. Cardiovascular: Rate and Rhythm: Normal rate and regular rhythm. Pulmonary: Effort: Pulmonary effort is normal. Abdominal: General: Abdomen is flat. Palpations: Abdomen is soft. Musculoskeletal: General: Normal range of motion. Skin: General: Skin is warm. Neurological: General: No focal deficit present. Mental Status: She is alert. Psychiatric: Mood and Affect: Mood normal. Behavior: Behavior normal. On home o2 ASSESSMENT AND PLAN: Assessment/Plan Diagnoses and all orders for this visit: Hyperthyroidism (CMS/HCC) - T3, free; Future - T4, free; Future - TSH; Future - Hepatic function panel; Future We will continue with methimazole 10 mg half tablet 4 days a week we will check lab before next visit in 6 months and adjust. Multinodular goiter (CMS/HCC) Longstanding persistent atrial fibrillation (CMS/HCC) Follow up in about 6 months (around 06/01/2024). documented in this encounter [facility] 11-26-2023 History of Presen t illness Narrative Images from the original note were not included. Subjective Patient ID: Lluvia Moreno is a 83 y.o. female who presents for hypertension. Lluvia is present today for follow up hypertension. Denies chest pain, blurry vision, headaches. Admits SOB. Does not check BP's at home. Currently on Lisinopril, Metoprolol, Spirnolactone. States she doesn't feel like doing much now, and is getting mad because she isn't able to do as much. Has to have other people cook for her. Gets tired of carting around the oxygen tank. Does have an appointment with [facility] on 12/09 to get a smaller unit, an oxygen concentrator, Is very frustrated with having to wait. She cannot physically lift the oxygen tank. Has to carry the tank in her Rolator but then cannot sit to rist because the Rolator has her oxygen. Pt states she is taking out her frustration on her family, Here with her daughter, Ashtyn. Current Outpatient Medications on File Prior to Visit Medication Sig Dispense Refill apixaban (Eliquis) 5 MG tablet Take 1 tablet (5 mg) by mouth in the morning and 1 tablet (5 mg) before bedtime. 200 tablet 3 aspirin 81 MG EC tablet 1 (one) time each day at the same time. atorvastatin (Lipitor) 80 MG tablet Take 1 tablet (80 mg) by mouth in the morning. 100 tablet 3 Xljmbef-Nahvsldgksm-Gsmkivfnpg (Breztri Aerosphere) 160-9-4.8 MCG/ACT aerosol Inhale 2 Inhalation in the morning and 2 Inhalation before bedtime. bumetanide (Bumex) 1 MG tablet Take 1 mg by mouth Daily PRN Calcium Carb-Cholecalciferol 600-200 MG-UNIT tablet Take 2 tablets by mouth 1 (one) time each day at the same time lisinopril 5 MG tablet Take 1 tablet (5 mg) by mouth in the morning. 100 tablet 3 LORazepam (Ativan) 0.5 MG tablet Take 1 tablet (0.5 mg) by mouth every 6 (six) hours if needed for anxiety 90 tablet 0 methIMAzole (Tapazole) 10 MG tablet 1/2 tablet Orally Thursday, Thursday, , Thursday metoprolol succinate XL (Toprol-XL) 50 MG 24 hr tablet Take 1 tablet (50 mg) by mouth in the morning. Do not crush or chew.. 100 tablet 3 Multiple Vitamins-Minerals (Multi For Her 50+) tablet 1 (one) time each day at the same time. PARoxetine (Paxil) 20 MG tablet Take 1 tablet (20 mg) by mouth in the morning. 100 tablet 3 spironolactone (Aldactone) 25 MG tablet Take 1 tablet (25 mg) by mouth in the morning. 100 tablet 3 [DISCONTINUED] albuterol HFA 90 mcg/act inhaler Inhale 2 puffs every 4 (four) hours if needed for wheezing. 18 g 3 [DISCONTINUED] predniSONE (Deltasone) 10 MG tablet Take 10 mg by mouth Daily No current facility-administered medications on file prior to visit. I have reviewed and reconciled the history and medication list with the patient today. No Known Allergies Social History Tobacco Use Smoking status: Never Smokeless tobacco: Never Vaping Use Vaping status: Never Used Substance Use Topics Alcohol use: Never Family History Problem Relation Name Age of Onset Cancer Mother Hypertension Mother Mental illness Mother Cancer Father Hypertension Father Past Medical History: Diagnosis Date A-fib (CMS/HCC) Arthritis CAD (coronary artery disease) (CMS/HCC) Cerebrovascular accident (CMS/HCC) Disease of thyroid gland (CMS/HCC) H/O bladder infections Hearing loss Heart disease History of atrial fibrillation History of being hospitalized 08/28/2023 COPD Exacerbation History of echocardiogram 2017 EF 60-65% History of heart artery stent History of knee problem History of pacemaker History of sinus problem History of varicose veins Hyperlipidemia (CMS/HCC) Hypertension (CMS/HCC) Hyperthyroidism (CMS/HCC) Toxic multinodular goiter (CMS/HCC) Visual impairment Past Surgical History: Procedure Laterality Date APPENDECTOMY AV NODE ABLATION 2020 BLADDER SURGERY CARDIAC CATHETERIZATION 2021 CARDIAC PACEMAKER PLACEMENT 2020 CARDIAC PACEMAKER REMOVAL 2021 ICD implantation HYSTERECTOMY TENDON REPAIR right thumb dr schultz TOTAL KNEE ARTHROPLASTY 2003 [address] gonzalez left/ right dr inman 2010 Visit Vitals BP 128/74 Comment: home BP monitor 141/81 Pulse 71 Resp 16 Ht 5' 7 Wt 177 lb 9.6 oz SpO2 99% BMI 27.82 kg/m Smoking Status Never BSA 1.95 m Review of Systems Constitutional: Positive for fatigue. Negative for chills and fever. Respiratory: Positive for cough and shortness of breath. Negative for wheezing. Cardiovascular: Negative for chest pain, palpitations and leg swelling. Gastrointestinal: Negative for abdominal pain, constipation, diarrhea, nausea and vomiting. Skin: Negative for rash. Objective Physical Exam Constitutional: General: She is not in acute distress. Appearance: Normal appearance. She is well-developed. HENT: Head: Normocephalic and atraumatic. Eyes: General: No scleral icterus. Conjunctiva/sclera: Conjunctivae normal. Cardiovascular: Rate and Rhythm: Normal rate and regular rhythm. Heart sounds: Normal heart sounds. No murmur heard. Pulmonary: Effort: Pulmonary effort is normal. No respiratory distress. Breath sounds: Decreased air movement present. Examination of the left-lower field reveals wheezing. Wheezing present. No rhonchi or rales. Comments: Using O2 via nasal canula Skin: General: Skin is warm and dry. Neurological: General: No focal deficit present. Mental Status: She is alert and oriented to person, place, and time. Gait: Gait abnormal. Comments: Seated walker for ambulation Psychiatric: Behavior: Behavior is agitated. Comments: Pt frustrated about her current limitations. Assessment/Plan Diagnoses and all orders for this visit: Pulmonary emphysema, unspecified emphysema type (CMS/HCC) - albuterol HFA 90 mcg/act inhaler; Inhale 2 puffs every 4 (four) hours if needed for wheezing Start using Breztri 2 puffs twice a day. Be sure to rinse mouth after each use to avoid thrush. Albuterol prn for acute SOB. Need for vaccination - Influenza, high-dose seasonal, quadrivalent, PF (EUV671) (Fluzone High Dose [place] 0.7mL dose) Provided pt with a flu shot today, she tolerated this well. Dyspnea on exertion Continue supplemental oxygen, pt is perceiving benefit. Hypoxia It is medically necessary for pt to have an oxygen concentrator. It is essential for her mobility and overall ability to perform activities of daily living. She cannot physically lift her current oxygen tank. Primary hypertension (CMS/HCC) Patient's blood pressure is currently well controlled. Continue with current medications and I will continue to monitor. Goal BP remains less than 130/80. 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) Inability to be mobile has greatly decreased patient's mood. She is irritable, lashing out at family, and her mood is lower. As the mood worsening appears situational, she is in agreement to hold off on any medication changes/additions at this point, and re-evaluate her mood once she receives her concentrator. Active listening provided. Encouraged her to focus on the positive things and not to hesitate to ask for help when needed. Follow up in about 3 months (around 02/26/2024) for COPD. documented in this encounter [facility] 10-30-2023 Telephone encounter Note OARRS reviewed, Rx sent into patient's pharmacy. [facility] 10-30-2023 Miscellaneous Notes OARRS reviewed, Rx sent into patient's pharmacy. documented in this encounter [facility] 08-07-2023 Note [facility] follow-up note Reason for [...] by mouth at bedtime., Disp: , Rfl: oqrkjqnody-ohxduroj-zgursnpuza (Breztri Aerosphere) 160-9-4.8 mcg/actuation HFA aerosol inhaler, [...] nuclear medicine myocardial perfusion scan. Dictated by: Joel Garcia M.D. on 08/06/2023 at 07:25 XR [...] chest x-ray a (more content not included)... [facility] 07-08-2023 Note Please let Lluvia know Chest x ray looks good- no fluid or pneumonia Labs look ok- Please forward all these results to her PCP [facility] 07-08-2023 Note If cardiac studies a re without any acute concerns she may need to F/U with pulmonary for evaluation of CLAIRE [facility] 07-08-2023 Note Device interrogation s reviewed Device check q 6 months [facility] 07-08-2023 Note Lexiscan stress test to assess cardiac perfusion for any significant defect that would warrant a cardiac cath with possible PCI for concerning stenosis Continue GDMT- ASA, lipitor toprol [facility] 07-08-2023 Note HTN is well controll ed 130/84- she does admit at home b/p is lower 100-120/70-80 denied any lightheadedness/dizziness or syncope. Continue lisinopril, toprol and aldactone [facility] 07-08-2023 Note Repeat echocardiogra m to assess MR in light of worsening CLAIRE [facility] 07-08-2023 Note Remains on eliquis w ithout any bleeding tendencies S/P AV node ablation and HUMAN RESOURCES PARTNER-D is 98% Bi-V pacing per device interrogation [facility] 07-08-2023 Note [facility] III, currently appears [...] cardiac cath is needed. RTC after testing [facility] 07-08-2023 Note [facility] CARDIOLOGY PROGR ESS NOTE HPI: Lluvia Moreno is a 82 y.o. female here for routine F/U HPI 82 yo female presents today with daughter for f/U for known Chronic HFrEF- 30-45% s/p HUMAN RESOURCES PARTNER, Afib s/p AV node ablation, CAD s/p [...] are negative. Previous HPI per Leandra Rangel LAN ADMINISTRATOR 12/30/22: Has been doing well She is on BB and device shows NSVT x1 She has some CLAIRE and LE edema which is chronic. It is stable today , takes bumex as needed, Device check 07/22/2022: HUMAN RESOURCES PARTNER-D pacing 92%, normal device function stable lead [...] and so the device was upgraded to HUMAN RESOURCES PARTNER-D and old RV pacing lead was extracted. Segment of this elevated echocardiogram was performed which showed improvement of EF from 30 to 45%. Device check performed on July 06, 2019July shows and pacemaker programmed at 70 bpm. Thresholds were noted to be 0.6 and 1.1V respectively. Patient underwent BiV HUMAN RESOURCES PARTNER-D upgrade on 08/21/2021 1. Successful BiV-ICD implantation [...] stenosis. Visit V (more content not included)... [facility] 04-27-2023 History of Presen t illness Narrative Lluvia Moreno 1940 Diagnosis: 1. [...] like to follow up with her local oncology rep for regular eyecare/comprehensive exams. Will send a [...] (TOPROL XL) 50 mg 24 hr tablet multivitamin,fd-rexj-Vh-FA-min 27-0.4 mg tablet 1 (one) time each [...] history of COPD (chronic obstructive pulmonary disease) ([facility]) and Hypertension. She has a past surgical [...] for and in the presence of Eliel Nichols, MELODY by SHANTEL Price. Provider Statement: I, Eliel Nichols OD personally performed the services described in the documentation, as scribed by SHANTEL Price in my presence, and it is both accurate and complete. [facility] History of Presen t illness Narrative Subjective Patient ID: Lluvia Moreno is a 82 y.o. female who presents for No chief complaint on file.. Pt states 5 days ago she noticed some bruising and swelling in right lower leg-- has mild pain on and off in leg Current Outpatient Medications on File Prior to Visit Medication Sig Dispense Refill aspirin 81 MG EC tablet 1 (one) time each day at the same time. atorvastatin (Lipitor) 80 MG tablet TAKE 1 TABLET DAILY for 100 days Bmolovr-Tmiipxbhwjt-Vdjttfpbwb (Breztri Aerosphere) 160-9-4.8 MCG/ACT aerosol Inhale 1 Inhalation in the morning. bumetanide (Bumex) 1 MG tablet 1 tablet Orally Once a day as needed Calcium Carb-Cholecalciferol 600-200 MG-UNIT tablet 1 (one) time each day at the same time. Cholecalciferol-Vitamin C (Vitamin D3-Vitamin C) 1000-500 UNIT-MG capsule 1 (one) time each day at the same time. Eliquis 5 MG tablet Eliquis 5 mg tablet lisinopril 5 MG tablet TAKE 1 TABLET DAILY for 100 days LORazepam (Ativan) 0.5 MG tablet 1 tablet Orally every 6 hrs as needed for anxiety attacks for 90 days methIMAzole (Tapazole) 10 MG tablet 1/2 tablet Orally Thursday, Thursday, , Thursday metoprolol succinate XL (Toprol-XL) 50 MG 24 hr tablet TAKE 1 TABLET DAILY for 100 days Multiple Vitamins-Minerals (Multi For Her 50+) tablet 1 (one) time each day at the same time. PARoxetine (Paxil) 20 MG tablet TAKE 1 TABLET DAILY for 100 days spironolactone (Aldactone) 25 MG tablet 1 (one) time each day at the same time. albuterol HFA 90 mcg/act inhaler Inhale 2 puffs every 4 (four) hours if needed for wheezing. 18 g 3 [DISCONTINUED] guaiFENesin-codeine (Robitussin-AC) 100-10 MG/5ML syrup Take 5 mL by mouth every 6 (six) hours if needed for cough for up to 10 days 240 mL 1 [DISCONTINUED] levoFLOXacin (Levaquin) 500 MG tablet Take 1 tablet (500 mg) by mouth in the morning for 7 days. 7 tablet 0 No current facility-administered medications on file prior to visit. No Known Allergies Social History Tobacco Use Smoking status: Never Smokeless tobacco: Never Substance Use Topics Alcohol use: Never Family History Problem Relation Name Age of Onset Cancer Mother Hypertension Mother Mental illness Mother Cancer Father Hypertension Father Past Medical History: Diagnosis Date Arthritis Cerebrovascular accident (CMS/HCC) Disease of thyroid gland (CMS/HCC) H/O bladder infections Hearing loss History of atrial fibrillation History of echocardiogram 2017 EF 60-65% History of heart artery stent History of knee problem History of pacemaker History of sinus problem History of varicose veins Hypertension (CMS/HCC) Visual impairment Past Surgical History: Procedure Laterality Date APPENDECTOMY AV NODE ABLATION 2020 BLADDER SURGERY CARDIAC CATHETERIZATION 2021 CARDIAC PACEMAKER PLACEMENT 2020 CARDIAC PACEMAKER REMOVAL 2021 ICD implantation HYSTERECTOMY TENDON REPAIR right thumb dr schultz TOTAL KNEE ARTHROPLASTY 2003 dr gonzalez left/ right dr inman 2010 Visit Vitals Ht 5' 7 BMI 26.94 kg/m Smoking Status Never BSA 1.92 m Review of Systems Objective Physical Exam Assessment/Plan No follow-ups on file. documented in this encounter [facility] 08-22-2021 Note EXAMINATION: XR [...] 2. Stable cardiomegaly. Electronically authenticated by: JOEL GARCIA Date: 2021-08-22 17:39 [facility] 06-17-2021 Note PROCEDURE: XR FEMUR LT HISTORY: Pain in lower limb ; anterior posterior mid thigh pain for one week COMPARISON: None. FINDINGS: BONES:Moderate degenerative changes of the hip joint. Prior knee replacement. No fracture, dislocation, or bone lesion. SOFT TISSUES:No visible soft tissue swelling. EFFUSION:None visible. OTHER: Negative. IMPRESSION: 1. No appreciable acute abnormality. Electronically authenticated by: JOEL GARCIA Date: 2021-06-17 11:09 [facility] Evaluation note Diagnosis Leg hematoma, right, initial encounter- Primary Current use of chcf anticoagulation Localized edema Edema [facility] Diagnosis Pulmonary emphysema, unspecified emphysema type (CMS/HCC)- Primary Need for vaccination Need for prophylactic vaccination and inoculation against unspecified single disease Dyspnea on exertion Other dyspnea and respiratory abnormality Hypoxia Hypoxemia Primary hypertension (CMS/HCC) Unspecified essential hypertension 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) Acute bronchitis, unspecified organism [facility] Diagnosis Hyperthyroidism (CMS/HCC)- Primary Thyrotoxicosis without mention of goiter or other cause, without mention of thyrotoxic crisis or storm Multinodular goiter (CMS/HCC) Nontoxic multinodular goiter Longstanding persistent atrial fibrillation (CMS/HCC) [facility] Diagnosis Anxiety Anxiety state, unspecified [facility] Diagnosis Panlobular emphysema (CMS/HCC)- Primary Other emphysema Benign hypertensive heart disease with heart failure (CMS/HCC) Impaired fasting glucose Coronary artery disease involving [place] coronary artery of [place] heart without angina pectoris (CMS/HCC) Age-related osteoporosis without current pathological fracture (CMS/HCC) Cardiomyopathy, unspecified (CMS/HCC) Longstanding persistent atrial fibrillation (CMS/HCC) Chronic obstructive pulmonary disease, unspecified (CMS/HCC) Chronic kidney disease, stage 3b (HCC) (CMS/HCC) 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) Chronic atrial fibrillation, unspecified (CMS/HCC) Supplemental oxygen dependent Dependence on supplemental oxygen [facility] Diagnosis Pulmonary emphysema, unspecified emphysema type (CMS/HCC)- Primary Age-related osteoporosis without current pathological fracture (CMS/HCC) [facility] Diagnosis Esotropia of right eye- Primary Unspecified esotropia Right abducens nerve palsy Double vision Diplopia [facility] Diagnosis Anxiety Anxiety state, unspecified [facility]* Attachments The following attachments cannot be sent through Care Everywhere. * Double Vision (Australian) [facility] Purpose Family History No Family History Records FoundNo Family History Records FoundNo Family History Records FoundNo Family History Records FoundNo Family History Records Found Advance Directives Documents on File Type Date Recorded Patient Life Insurance Salesperson Expl anation Power of Seo Team Lead 02/25/2024 12:18 PM Healt hcare Power of Seo Team Lead Reason for Referral Specialty Diagnoses / Procedures Referred By Safia t Referred To Contact Radiology Diagnoses Leg hematoma, right, initial encounter Current use of chcf anticoagulation Localized edema Procedures Vascular US lower extremity venous duplex right Ole Yang MD [address] [place] [address] [facility] [address] [place] [address] Referral ID Status Reason Start Date Expiration Date Visits Re quested Visits Authorized [id number] Closed 02/12/2023 05/14/2023 1 1 Additional Source Comments INFORMATION SOURCE (unrecogn ized section and content) DATE CREATED AUTHOR 10/15/2021 [facility] DATE CREATED AUTHOR AUTHOR'S ORGANIZ ATION 05/18/2022 [facility] DATE CREATED AUTHOR AUTHOR'S ORGANIZ ATION 04/27/2023 [facility] DATE CREATED AUTHOR AUTHOR'S ORGANIZ ATION 04/01/2024 [facility] EPIC DATE CREATED AUTHOR AUTHOR'S ORGANIZ ATION 04/26/2024 [facility] Reason for Visit (unrecogniz ed section and content) Reason Comments leg discoloration Reason Comments Thyroid Problem Follow-up Reason Onset Date Comments Med Refill 10/29/2023 Reason Comments prolia injection Reason Comments Follow-up Reason Onset Date Comments Med Refill 05/12/2024 Care Teams (unrecognized sec tion and content) Falsework Builder Relationship Specialty Start Date End Date Ole Yang MD [address] [place] [address] PCP - ACO Reach 07/10/22 Ole Yang MD [address] [place] [address] PCP - General Internal Medicine 07/28/22 Falsework Builder Relationship Specialty Start Date End Date Ole Yang MD [address] [place] [address] PCP - ACO Reach 07/10/22 Ole Yang MD [address] [place] [address] PCP - General Internal Medicine 07/28/22ThursdayBea LPN [address] [place] [address] Licensed Practical Nurse Family Medicine 10/27/23 Falsework Builder Relationship Specialty Start Date End Date Ole Yang MD [address] [place] [address] PCP - ACO Reach 07/10/22 Ole Yang MD [address] [place] [address] PCP - General Internal Medicine 07/28/22ThursdayBea LPN [address] [place] [address] Licensed Practical Nurse Family Medicine 10/27/23 Falsework Builder Relationship Specialty Start Date End Date Ole Yang MD [address] [place] [address] PCP - ACO Reach 07/10/22 Ole Yang MD [address] [place] [address] PCP - General Internal Medicine 07/28/22Thursday, Bea, EMR TRAINER [address] [place] [address] Licensed Practical Nurse Family Medicine 10/27/23 Falsework Builder Relationship Specialty Start Date End Date Ole Ynag MD [address] [place] [address] PCP - ACO Reach 07/10/22 Ole Yang MD [address] [place] [address] PCP - General Internal Medicine 07/28/22Thursday, Bea, EMR TRAINER [address] [place] [address] Licensed Practical Nurse Family Medicine 10/27/23 Falsework Builder Relationship Specialty Start Date End Date Ole Yang MD [address] [place] [address] PCP - ACO Reach 07/10/22 Ole Yang MD [address] [place] [address] PCP - General Internal Medicine 07/28/22Thursday, Bea, EMR TRAINER [address] [place] [address] Licensed Practical Nurse Family Medicine 10/27/23 Falsework Builder Relationship Specialty Start Date End Date Ole Yang MD [address] [place] [address] PCP - ACO Reach 07/10/22 Ole Yang MD [address] [place] [address] PCP - General Internal Medicine 07/28/22 Debora Saenz, RN Licensed Practical Nurse Family Medicine 03/25/24 Falsework Builder Relationship Specialty Start Date End Date Ole Yang MD [address] [place] [address] PCP - ACO Reach 07/10/22 Ole Yang MD [address] [place] [address] PCP - General Internal Medicine 07/28/22 Debora Saenz, CHERI Licensed Practical Nurse Family Medicine 03/25/24 Falsework Builder Relationship Specialty Start Date End Date Ole Yang MD [address] [place] [address] PCP - General Internal Medicine 08/13/22 Falsework Builder Relationship Specialty Start Date End Date Ole Yang MD [address] [place] [address] PCP - ACO Reach 07/10/22 Ole Yang MD [address] [place] [address] PCP - General Internal Medicine 07/28/22 Edna Alcantara LPN 05/06/24 FOR RECORDS PERTAINING TO PATIENTS WHO ARE [...] BE BASED ON THE PRIMARY CLINICAL RECORDS. [employer] [facility]. provides no warranty or guarantee of the accuracy or completeness of information in this document.
[2024-05-23 09:39] LABS: Free T4 0.98 ng/dL (0.76-1.46)
[2024-05-23 09:41] LABS: Free T3 2.72 pg/mL (2.18-3.98)
== END 2024-05-23 08:42 | disposition home or self-care (01) ==
PROVIDERS: PCP Internal Medicine; Visit Provider Internal Medicine
DX: E05.90 Thyrotoxicosis, unspecified without thyrotoxic crisis or storm (principal)
CPT/HCPCS: 36415; 84439; 84443; 84481

== ENCOUNTER 2024-06-08 10:31 | Emergency (ER) | payer MEDICARE, OTHER, SELFPAY ==
[2024-06-08 10:40] VITALS: BP 134/88; PULSE 70; TEMP 37; O2SAT 99; BMI 27.4
--- NOTE | 2024-06-08 10:57 | ED.GENADUL1 ---
HPI HPI - General Adult General Chief complaint: Fall Stated complaint: OTHER Time Seen by Provider: 06/08/24 10:35 Source: patient Mode of arrival: walk-in History of Present Illness HPI narrative: 83-year-old female presents for a large bruise on her right inner thigh. She had fallen this morning. She is on Eliquis. She did not hit her head and did not sustain any other injuries and she complains of minimal discomfort. She was transported here by paramedics. Related Data Home Medications ?Medication ?Instructions ?Recorded ?Confirmed apixaban 5 mg tablet (Eliquis) 5 mg PO Q12H 08/28/23 06/08/24 atorvastatin 80 mg tablet 80 mg PO .QHS 08/28/23 06/08/24 lorazepam 0.5 mg tablet 0.5 mg PO Q8H PRN anxiety 08/28/23 06/08/24 methimazole 10 mg tablet 5 mg PO .QD 08/28/23 06/08/24 metoprolol succinate 50 mg 50 mg PO .QD 08/28/23 06/08/24 tablet,extended release 24 hr paroxetine HCl 20 mg tablet 20 mg PO .QD 08/28/23 06/08/24 spironolactone 25 mg tablet 25 mg PO QAM 08/28/23 06/08/24 albuterol sulfate 90 mcg/actuation inhalation 06/08/24 aerosol inhaler aspirin 81 mg capsule 81 mg PO DAILY 06/08/24 06/08/24 Allergies Allergy/AdvReac Type Severity Reaction Status Date / Time No Known Drug Allergies Allergy Verified 06/08/24 10:38 Opioid HPI Opioid Management Most Recent Opioid Data: Last ORT Total Score 0 08/28/23 17:33 08/28/23 Last ORT Risk Category Low Risk 08/28/23 17:33 08/28/23 Review of Systems ROS Narrative A ten point review of systems is negative except as noted above. [facility] Medical History (Updated 06/08/24 @ 13:11 by Mendoza Nunes MD) Dependence on supplemental oxygen ?Z99.81 - Dependence on supplemental oxygen (ICD-10) Hypoxic episode ?R09.02 - Hypoxemia (ICD-10) COPD exacerbation ?J44.1 - Chronic obstructive pulmonary disease with (acute) exacerbation (ICD-10) CHF (congestive heart failure) ?I50.9 - Heart failure, unspecified (ICD-10) HTN (hypertension) ?I10 - Essential (primary) hypertension (ICD-10) CVA (cerebral vascular accident) ?I63.9 - Cerebral infarction, unspecified (ICD-10) COPD (chronic obstructive pulmonary disease) ?J44.9 - Chronic obstructive pulmonary disease, unspecified (ICD-10) Cardiac defibrillator in place ?Z95.810 - Presence of automatic (implantable) cardiac defibrillator (ICD-10) A-fib ?I48.91 - Unspecified atrial fibrillation (ICD-10) Surgical History (Updated 08/28/23 @ 18:27 by Lo Knapp, RN) Hx of appendectomy ?Z90.49 - Acquired absence of other specified parts of digestive tract (ICD-10) History of hysterectomy ?Z90.710 - Acquired absence of both cervix and uterus (ICD-10) Family History (Updated 08/28/23 @ 17:55 by Lo Knapp, CHERI) Other Family history of CHF (congestive heart failure) Family history of COPD (chronic obstructive pulmonary disease) Family history of cancer Family history of hypertension Family history of myocardial infarction Family history of stroke Social History (Updated 08/28/23 @ 17:56 by Lo Knapp, CHERI) Within the past year, how often did you have a drink containing alcohol: monthly or less Within the past year, how many standard drinks containing alcohol did you have on a typical day: 1 or 2 Within the past year, how often did you have six or more drinks on one occasion: never Total score: 0 Score interpretation: A score less than 3 is consistent with normal alcohol consumption. Smoking status: Never smoker Non-prescribed substance use: denies use Highest level of school completed/degree received: high school graduate In a typical week, how many times do you talk on the telephone with family, friends, or neighbors: 3 or more times per week How often do you get together with friends or relatives: 3 or more times per week How often do you attend bahai or samaritan services: never Little interest or pleasure in doing things: not at all Feeling down, depressed, or hopeless: not at all Feel stressed/tense/nervous/anxious/difficulty sleeping: not at all Do you think of yourself as: straight/heterosexual Gender Identity: female Exam Narrative Exam Narrative: Nurses note and vital signs reviewed and patient is not hypoxic. General: The patient appears well and in no apparent distress. Patient is resting comfortably on cart. Skin: Warm, dry, no pallor noted. There is no rash noted. Head: Normocephalic, atraumatic Eye: Normal conjunctiva, no drainage Ears, Nose, Mouth, and Throat: oral mucosa is moist. Nares patent. Cardiovascular: Not tachycardic Respiratory: Patient is in no distress, no accessory muscle use, lungs are clear to auscultation, no wheezing, rales or rhonchi Back: non-tender GI: Soft and nontender Musculoskeletal: Large purple bruise present on the medial right upper thigh. Knee is nontender. She is able to move her hip. Neurological: A&O, normal speech Psychiatric: Cooperative Constitutional Vital Signs, click to edit/add: Last Vital Signs Temp 98.6 F 06/08/24 10:40 Pulse 70 06/08/24 10:40 Resp 20 06/08/24 10:40 BP 134/88 06/08/24 10:40 Pulse Ox 99 06/08/24 10:40 O2 Del Method Room Air 06/08/24 10:40 Course Vital Signs Vital signs: Vital Signs Temperature 98.6 F 06/08/24 10:40 Pulse Rate 70 06/08/24 10:40 Respiratory Rate 20 06/08/24 10:40 Blood Pressure 134/88 06/08/24 10:40 Pulse Oximetry 99 06/08/24 10:40 Oxygen Delivery Method Room Air 06/08/24 10:40 Temperature 98.6 F 06/08/24 10:40 Pulse Rate 70 06/08/24 10:40 Respiratory Rate 20 06/08/24 10:40 Blood Pressure 134/88 06/08/24 10:40 Pulse Oximetry 99 06/08/24 10:40 Oxygen Delivery Method Room Air 06/08/24 10:40 Medical Decision Making MDM Narrative Medical decision making narrative: X-rays are negative per radiologist. She is able to stand and get around like she normally does. She is able to be released home. Treatment diagnosis and follow-up were discussed with the patient and her daughter. Differential Diagnosis Differential Diagnosis: Contusion, fracture Imaging Data Right femur, right hip: Radiologist's impression: Moderate degenerative changes right hip, no fracture or dislocation Discharge Plan Discharge Chief Complaint: Fall Clinical Impression: Fall, Contusion of leg, right Patient Disposition: Home, Self-Care Time of Disposition Decision: 13:11 Condition: Good Mode of Transportation: Private Vehicle Prescriptions / Home Meds: No Action albuterol sulfate 90 mcg/actuation HFA aerosol inhaler INHALATION aspirin 81 mg capsule 81 mg PO DAILY atorvastatin 80 mg tablet 80 mg PO .QHS metoprolol succinate 50 mg tablet extended release 24 hr 50 mg PO .QD spironolactone 25 mg tablet 25 mg PO QAM lorazepam 0.5 mg tablet 0.5 mg PO Q8H PRN (Reason: anxiety) paroxetine HCl 20 mg tablet 20 mg PO .QD methimazole 10 mg tablet 5 mg PO .QD Patient Comments: pt takes 1/2 pill only on Thursday, Thursday, , Thursday. Does NOT take on Thursday, Thursday, and Thursday Eliquis 5 mg tablet 5 mg PO Q12H Print Language: Portuguese Instructions: Fall Prevention for Older Adults (ED), Contusion in Adults (ED) Referrals: RUDY DIAZ [Primary Care Provider] - 1 week
[2024-06-08 13:13] VITALS: PULSE 89; O2SAT 98
== END 2024-06-08 13:21 | disposition home or self-care (01) ==
PROVIDERS: Emergency Provider Emergency Medicine; PCP Internal Medicine
DX: S70.11XA Contusion of right thigh, initial encounter (principal); W19.XXXA Unspecified fall, initial encounter; Z79.01 Long term (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
CPT/HCPCS: 73502; 73552; 99283

== ENCOUNTER 2024-07-22 05:57 | Inpatient (IN) | payer MEDICARE, OTHER, SELFPAY ==
[2024-07-22] VITALS (32 sets, daily range): BP systolic 96–169; BP diastolic 54–89; PULSE 70–77; TEMP 36.7–37.7; O2SAT 90–99; BMI 33.5; BMI 27.0
--- OUTSIDE RECORDS SUMMARY | 2024-07-22 06:08 | XMS_ITS | Encounter Summary ---
Author Organization [facility] Address [address] [place] [address] Care Team Providers Care Trapeze Performer Name Role Phone Ole Yang MD Unavailable [phone] Ole Yang MD Primary Care Provider ThursdayBea LPN Unavailable [phone] Debora Saenz RN Unavailable Edna Alcantara GOLF COURSE LABORER Unavailable Unavailable Encounter Details Date Type Department Care Team (Late st Contact Info) Description 09/01/2023 Orders Only [facility] [address] [facility] 110 [place] [address] Unallocated, Noms Provider, [address] [place], [place] [id number] Social History Tobacco Use Types Packs/Day Years Used Date Smoking Tobacco: Never Smokeless Tobacco: Never Alcohol Use Standard Drinks/Week Comments Never 0 (1 standard drink = 0.6 oz pur e alcohol) Comments Unknown Sex and Gender Information Value Date Recorded Sex Assigned at Not on file Legal Sex Female 7:05 PM EDT Gender Identity Not on file Sexual Orientation Not on file documented as of this encounter Plan of Treatment Upcoming Encounters Date Type Department Care Team (Late st Contact Info) Description 08/11/2024 10:00 AM EDT Office Visit [facility] [address] [place] [address] Dipti Wolf PA [address] [place] [address] 08/31/2024 9:30 AM EDT Office Visit [facility] [address] [place] [address] Dipti Wolf PA [address] [place] [address] 11/30/2024 10:00 AM EDT Office Visit [facility] [address] [place] [address] Teri Jo MD [address] [place] [address] documented as of this encounter Procedures Procedure Name Priority Date/Time Associated Diagnosis Comments ELECTROCARDIOGRAM REPORT Routine 11:30 AM EDT SCANNED LABS Routine 09/01/2023 11:29 AM EDT XR CHEST 1 VIEW Routine 08/28/2023 11:22 AM EDT documented in this encounter Results * Electrocardiogram Report (09/01/2023 11:30 AM EDT) us Noms Provider Unallocated MD IN CLINIC/BEDSIDE O RDERABLES Final Result * SCANNED LABS (09/01/2023 11:29 AM EDT) us Noms Provider Unallocated MD LAB CHG PERFORMABLE S Final Result * XR chest 1 view (08/28/2023 11:22 AM EDT) Anatomical Region Laterality Modality Chest Radiographic Carrie ging us Noms Provider Unallocated MD IMG XR PROCEDURES F inal Result documented in this encounter Visit Diagnoses Not on filedocumented in this encounter Additional Health Concerns Assessment Noted Time PHQ-9 Depression Total Score: 10 024 9:00 AM EDT documented as of this encounter Care Teams Trapeze Performer Relationship Specialty Start Date End Date Ole Yang MD [address] [place] [address] PCP - ACO Reach 07/10/22 Ole Yang MD [address] [place] [address] PCP - General Internal Medicine 07/28/22ThursdayBea LPN [address] [place] [address] Licensed Practical Nurse Family Medicine 10/27/23 03/25/24 Debora Saenz, RN Licensed Practical Nurse Family Medicine 03/25/24 05/06/24 Edna Alcantara LPN 05/06/24 documented as of this encounter
--- OUTSIDE RECORDS SUMMARY | 2024-07-22 06:08 | XMS_ITS | Encounter Summary ---
Author Organization [facility] Address [address] [place] [address] Care Team Providers Care Dressing Machine Operator Name Role Phone Ole Ynag MD Unavailable [phone] Ole Yang MD Primary Care Provider [phone] ThursdayBea LPN Unavailable [phone] Debora Saenz RN Unavailable [phone] Edna Alcantara LPN Unavailable Unavailable Encounter Details Date Type Department Care Team (Late Contact Info) Description 08/06/2023 Clinisync Result Encounter [facility] External Department Unsolicited Provider, Generic External Data Social History Tobacco Use Types Packs/Day Years [...] Encounters Date Type Department Care Team (Late Contact Info) Description 08/11/2024 10:00 AM EDT Office Visit [facility] 112 [facility] 110 [place] [address] Dipti Wolf PA 112 [facility] 110 [place], [place] [address] 08/31/2024 9:30 AM EDT Office Visit [facility] [address] [facility] 110 [place] [address] Dipti Wolf PA [address] [facility] 110 [place] [address] 11/30/2024 10:00 AM EDT Office Visit [facility] [address] [place] [address] Teri Jo MD [address] [place] [address] documented as of this encounter Procedures Procedure Name Priority Date/Time Associated Diagnosis Comments NM ALKA PERF SPECT REST STR 08/06/2023 7:39 AM EDT documented in this encounter Results * NM ALKA PERF SPECT REST STR (08/06/2023 7:39 AM EDT) Anatomical Region Laterality Modality Other 08/06/2023 7:39 AM EDT Narrative 08/06/2023 7:40 [place] [address] Nuclear Medicine Report Signed Patient: LLUVIA FERRAOR MR#: [id number] : 1940 Acct:[id number] Age/Sex: 82 / F ADM Date: 08/04/23 Loc: [place] Attending Dr: LARRY ANTON Ordering Physician: LARRY ANTON Date of Service: 08/04/23 Procedure(s): NM alka perf SPECT rest str Accession Number(s): [id number] cc: OLE YANG ; LARRY ANTON Patient Name: LLUVIA FERRARO MR#: [id number] : 1940 Exam Date: 08/04/2023 Ordering Doctor: LARRY ANTON RADIOLOGY REPORT PROCEDURE: NM ALKA PERF SPECT REST STR COMPARISON: None. INDICATIONS: Chronic systolic heart failure, other forms of dyspnea TECHNIQUE: Exam Description: Stress/Rest one day protocol gated SPECT Rest Imagin.4 mCi Tc-99m Cardiolite IV on 08/04/2023 Stress Imaging 32.0 mCi Tc-99m Cardiolite IV on 08/04/2023 Exercise Protocol: 0.4 mg Lexiscan given IV Heart Rate (bpm): Rest: 70 Max: 78 PMHR: 55 Blood Pressure: Rest: 146/88 Max: 146/88 Symptoms: Rest and peak stress ECG findings were [...] Naeem Garcia M.D. on 08/06/2023 at 07:25 Approved by: Naeem Garcia M.D. on 08/06/2023 at 07:39 Dictated By: Naeem Garcia M.D. Signed By: 08/06/23 0740 DD/ 0739 TD/TT: Geospatial Image Analyst: Procedure Note Radiology, Radiologist, MD - 08/06/2023 [place] [address] Nuclear Medicine Report Signed Patient: LLUVIA FERRARO LMR#: [id number] : 1940cct:[id number] Age/Sex: 82 / FADM Date: 08/04/23 Loc: [facility] Attending Dr: LARRY ANTON Ordering Physician: LARRY ANTON Date of Service: 08/04/23 Procedure(s): NM alka perf SPECT rest str Accession Number(s): [id number] cc: OLE YANG ; LARRY ANTON Patient Name: LLUVIA FERRARO MR#: [id number] : 1940 Exam Date: 08/04/2023 Ordering Doctor: LARRY ANTON RADIOLOGY REPORT PROCEDURE: NM ALKA PERF SPECT REST STR COMPARISON: None. INDICATIONS: Chronic systolic heart failure, other forms of dyspnea TECHNIQUE: Exam Description: Stress/Rest one day protocol gated SPECT Rest Imagin.4 mCi Tc-99m Cardiolite IV on 08/04/2023 Stress Imaging 32.0 mCi Tc-99m Cardiolite IV on 08/04/2023 Exercise Protocol: 0.4 mg Lexiscan given IV Heart Rate (bpm): Rest: 70 Max: 78 PMHR: 55 Blood Pressure: Rest: 146/88 Max: 146/88 Symptoms: Rest and peak stress ECG findings were normal and the exercise portion ofthe study was normal per attending physician Dr. Islas . For more detailsplease see separate cardiac stress test report. FINDINGS: [...] Naeem Garcia M.D. on 08/06/2023 at 07:25 Approved by: Naeem Garcia M.D. on 08/06/2023 at 07:39 Dictated By: Naeem Garcia M.D. Signed By:08/06/23 0740 DD/ 0739 TD/TT: Geospatial Image Analyst: Generic External Data Provider [facility] Final Result documented in this encounter Visit Diagnoses Not on filedocumented in this encounter Additional Health Concerns Assessment Noted Time PHQ-9 Depression Total Score: 10 024 9:00 AM EDT documented as of this encounter Care Teams Dressing Machine Operator Relationship Specialty Start Date End Date Ole Yang MD [address] [facility] 110 [place] [address] PCP - ACO Reach 07/10/22 Ole Yang MD [address] [facility] 110 [place], [place] [address] PCP - General Internal Medicine 07/28/22Thursday, JUAN Figueredo [address] [place], [place] [address] Licensed Practical Nurse Family Medicine 10/27/23 03/25/24 Debora Saenz, CHERI Licensed Practical Nurse Family Medicine 03/25/24 05/06/24 Edna Alcantara LPN 05/06/24 documented as of this encounter
--- OUTSIDE RECORDS SUMMARY | 2024-07-22 06:08 | XMS_ITS | Encounter Summary ---
Author Organization [facility] Address [address] [place] [address] Care Team Providers Care Spray Machine Tender Name Role Phone Ole Yang MD Unavailable [phone] Ole Yang MD Primary Care Provider ThursdayBea LPN Unavailable [phone] Debora Saenz RN Unavailable Edna Alcantara SCHOOL SPEECH THERAPIST Unavailable Unavailable Encounter Details Date Type Department Care Team (Late st Contact Info) Description 07/15/2023 Orders Only [facility] [address] [facility] 110 [place] [address] Unallocated, Noms Provider, [address] [place], [place] [id number] Social History Tobacco Use Types Packs/Day Years [...] [address] [place] [address] Dipti Wolf PA [address] [place] [address] 08/31/2024 9:30 AM EDT Office Visit [facility] [address] [place] [address] Dipti Wolf PA [address] [place] [address] 11/30/2024 10:00 AM EDT Office Visit [facility] [address] [place] [address] Teri Jo MD [address] [place] [address] documented as of this encounter Procedures Procedure Name Priority Date/Time Associated Diagnosis Comments SCANNED LABS Routine 07/08/2023 2:29 PM EDT documented in this encounter Results * SCANNED LABS (07/08/2023 2:29 PM EDT) us Noms Provider Unallocated LAB CHG PERFORMABLE S Final Result documented in this encounter Visit Diagnoses Not on filedocumented in this encounter Additional Health Concerns Assessment Noted Time PHQ-9 Depression Total Score: 10 024 9:00 AM EDT documented as of this encounter Care Teams Spray Machine Tender Relationship Specialty Start Date End Date Ole Yang MD [address] [place] [address] PCP - ACO Reach 07/10/22 Ole Yang MD [address] [place] [address] PCP - General Internal Medicine 07/28/22ThuKeonBea deleon LPN [address] [place] [address] Licensed Practical Nurse Family Medicine 10/27/23 03/25/24 Debora Saenz, CHERI Licensed Practical Nurse Family Medicine 03/25/24 05/06/24 Edna Alcantara LPN 05/06/24 documented as of this encounter
--- OUTSIDE RECORDS SUMMARY | 2024-07-22 06:08 | XMS_ITS | Encounter Summary ---
Author Organization [facility] Address [address] [facility] [place] [address] Care Team Providers Care Teacher Of The Deaf Name Role Phone Ole Yang MD Unavailable [phone] Ole Yang MD Primary Care Provider [phone] ThursdayBea LPN Unavailable [phone] Debora Saenz RN Unavailable [phone] Edna Alcantara FILING MACHINE OPERATOR Unavailable Unavailable Encounter Details Date Type Department Care Team (Late st Contact Info) Description 10/26/2023 Abstract [facility] 112 [facility] 110 [place] [address] Ole Yang MD 112 [facility] 110 [place] [address] Social History Tobacco Use Types Packs/Day Years Used Date Smoking Tobacco: Never Smokeless Tobacco: Never Alcohol Use Standard Drinks/Week Comments Never 0 (1 standard drink = 0.6 oz pur e alcohol) B1300 Health Literacy Answer Date Recor ded How often do you need to hav e someone help you when you read instructions, pamphlets, or other written material from your doctor or pharmacy? Often 10/29/2023 Humiliation, Afraid, Rape, and Kick questionnair e Answer Date Recorded Within the last year, have y ou been afraid of your partner or ex-partner? No 10/29/2023 Within the last year, have y ou been humiliated or emotionally abused in other ways by your partner or ex-partner? No Within the last year, have y ou been kicked, hit, slapped, or otherwise physically hurt by your partner or ex-partner? No 10/29/2023 Within the last year, have y ou been raped or forced to have any kind of sexual activity by your partner or ex-partner? No 10/29/2023 Social Connection and Isolation Panel [NHANES] A nswer Date Recorded In a typical week, how many times do you talk on the phone with family, friends, or neighbors? Three times a week 10/29/2023 How often do you get togethe r with friends or relatives? Three times a week 10/29/2023 How often do you attend chur ch or alevism services? Never 10/29/2023 Do you belong to any clubs o r organizations such as islam groups, unions, fraternal or athletic groups, or school groups? No 10/29/2023 How often do you attend meet ings of the clubs or organizations you belong to? Never 10/29/2023 Are you , , di vorced, , never , or living with a partner? 10/29/2023 AUDIT-C Answer Date Recorded Q1: How often do you have a drink containing alcohol? Never 10/29/2023 Q2: How many drinks containi ng alcohol do you have on a typical day when you are drinking? Patient does not drink Q3: How often do you have si x or more drinks on one occasion? Never 10/29/2023 Overall Financial Resource Strain (CARDIA) Answe r Date Recorded How hard is it for you to pa y for the very basics like food, housing, medical care, and heating? Not hard at all 10/29/2023 [facility] [place] of Occupat ional Health - Occupational Stress Questionnaire Answer Date Recorded Do you feel stress - tense, restless, nervous, or anxious, or unable to sleep at night because your mind is troubled all the time - these days? To some extent 10/29/2023 Exercise Vital Sign Answer Date Recorde d On average, how many days pe r week do you engage in moderate to strenuous exercise (like a brisk walk)? 0 days 10/29/2023 On average, how many minutes do you engage in exercise at this level? 0 min 10/29/2023 Hunger Vital Sign Answer Date Recorded Within the past 12 months, y ou worried that your food would run out before you got the money to buy more. Never true 10/29/19 24 Within the past 12 months, t he food you bought just didn't last and you didn't have money to get more. Never true 10/29/2023 PRAPARE - Transportation Answer Date Re corded In the past 12 months, has l ack of transportation kept you from medical appointments or from getting medications? No 10/17 In the past 12 months, has l ack of transportation kept you from meetings, work, or from getting things needed for daily living? No 10/29/2023 Housing Stability Vital Sign Answer Ryan e Recorded In the last 12 months, was t here a time when you were not able to pay the mortgage or rent on time? No 10/29/2023 In the past 12 months, how m any times have you moved where you were living? 0 10/29/2023 At any time in the past 12 m [facility], were you homeless or living in a correction (including now)? No 10/29/2023 Comments Unknown Sex and Gender Information Value Date Recorded Sex Assigned at Not on file Legal Sex Female 7:05 PM EDT Gender Identity Not on file Sexual Orientation Not on file documented as of this encounter Functional Status * Audit-C Score Answer Date of Assessment Author 0 10/29/2023 4:21 PM EDT Sammie Herbert LPN * Question Answer Date of Assessment Author Q1: How often do you have a drink containing alcohol? Never 10/29/2023 4:21 PM EDT Bea Herbert LP N Q2: How many drinks containing alcohol do you have on a typical day when you are drinking? Patient does not drink 10/29/2023 4:21 PM EDT Bea Herbert LPN Q3: How often do you have six or more drinks on one occasion? Never 10/29/2023 4:21 PM EDT Keon, Bea, LP N documented as of this encounter Plan of Treatment Upcoming Encounters Date Type Department Care Team (Late st Contact Info) Description 08/11/2024 10:00 AM EDT Office Visit [facility] [address] [place] [address] Dipti Wolf PA [address] [place] [address] 08/31/2024 9:30 AM EDT Office Visit [facility] [address] [place] [address] Dipti Wolf PA [address] [place] [address] 11/30/2024 10:00 AM EDT Office Visit [facility] [address] [place] [address] Teri Jo MD [address] [place] [address] documented as of this encounter Visit Diagnoses Not on filedocumented in this encounter Additional Health Concerns Assessment Noted Time PHQ-9 Depression Total Score: 10 024 9:00 AM EDT documented as of this encounter Care Teams Teacher Of The Deaf Relationship Specialty Start Date End Date Ole Yang MD [address] [place] [address] PCP - ACO Reach 07/10/22 Ole Yang MD [address] [place] [address] PCP - General Internal Medicine 07/28/22ThursdayBea LPN [address] [place] [address] Licensed Practical Nurse Family Medicine 10/27/23 03/25/24 Debora Saenz, CHERI Licensed Practical Nurse Family Medicine 03/25/24 05/06/24 Edna Alcantara LPN 05/06/24 documented as of this encounter
--- OUTSIDE RECORDS SUMMARY | 2024-07-22 06:08 | XMS_ITS | Encounter Summary ---
Author Organization [facility] Address [address] [place] [address] Care Team Providers Care Electromechanical Equipment Assembler Name Role Phone Ole Yang MD Unavailable [phone] Ole Yang MD Primary Care Provider ThursdayBea LPN Unavailable [phone] Debora Saenz RN Unavailable [phone] Edna Alcantara CHAIR CANER Unavailable Unavailable Encounter Details Date Type Department Care Team (Late st Contact Info) Description 05/28/2023 Abstract [facility] [address] [facility] 110 [place] [address] Ole Yang MD [address] [facility] 110 [place], [place] [id number] Social History Tobacco Use Types Packs/Day Years [...] [address] [place] [address] Dipti Wolf PA [address] [place] [address] 08/31/2024 9:30 AM EDT Office Visit [facility] [address] [place] [address] Dipti Wolf PA [address] [place] [address] 11/30/2024 10:00 AM EDT Office Visit [facility] [address] [place] [phone] Teri Jo MD [address] [place] [address] documented as of this encounter Visit Diagnoses Not on filedocumented in this encounter Additional Health Concerns Assessment Noted Time PHQ-9 Depression Total Score: 10 024 9:00 AM EDT documented as of this encounter Care Teams Electromechanical Equipment Assembler Relationship Specialty Start Date End Date Ole Yang MD [address] [place] [address] PCP - ACO Reach 07/10/22 Ole Yang MD [address] [place] [address] PCP - General Internal Medicine 07/28/22ThursdayBea LPN [address] [place] [address] Licensed Practical Nurse Family Medicine 10/27/23 03/25/24 Debora Saenz, RN Licensed Practical Nurse Family Medicine 03/25/24 05/06/24 Edna Alcantara LPN 05/06/24 documented as of this encounter
--- OUTSIDE RECORDS SUMMARY | 2024-07-22 06:08 | XMS_ITS | Encounter Summary ---
Author Organization [facility] Address [address] [facility] [place] [address] Care Team Providers Care Crankshaft Straightener Name Role Phone Ole Yang MD Unavailable [phone] Ole Yang MD Primary Care Provider [phone] ThursdayBea LPN Unavailable [phone] Debora Saenz RN Unavailable Edna Alcantara MACHINE III COREMAKER Unavailable Unavailable Encounter Details Date Type Department Care Team (Late st Contact Info) Description 12/31/2023 Abstract [facility] 112 [facility] 110 [place] [address] Ole Yang MD 112 [facility] 110 [place] [address] Social History Tobacco Use Types [...] often do you attend chur ch or jain services? Never 10/29/2023 Do you belong to any clubs o r organizations such as worship groups, unions, fraternal or athletic groups, or [...] and heating? Not hard at all 10/29/2023 [facility] of Occupat ional Health - Occupational Stress [...] any time in the past 12 m [facility], were you homeless or living in a custodial (including now)? No 10/29/2023 Comments Unknown Sex and Gender Information Value Date Recorded Sex Assigned at Not on file Legal Sex Female 7:05 PM EDT Gender Identity Not on file Sexual Orientation Not on file documented as of this encounter Plan of Treatment Upcoming Encounters Date Type Department Care Team (Late st Contact Info) Description 08/11/2024 10:00 AM EDT Office Visit [facility] [address] [place] [address] Dipti Wolf PA [address] [place] [address] 08/31/2024 9:30 AM EDT Office Visit [facility] [address] [place] [address] Dipti Wolf PA [address] [place] [address] 11/30/2024 10:00 AM EDT Office Visit [facility] [address] [place] [phone] Teri Jo MD [address] [place] [address] documented as of this encounter Visit Diagnoses Not on filedocumented in this encounter Additional Health Concerns Assessment Noted Time PHQ-9 Depression Total Score: 10 024 9:00 AM EDT documented as of this encounter Care Teams Crankshaft Straightener Relationship Specialty Start Date End Date Ole Yang MD [address] [place] [address] PCP - ACO Reach 07/10/22 Ole Yang MD [address] [place] [address] PCP - General Internal Medicine 07/28/22ThursdayBea LPN [address] [place] [address] Licensed Practical Nurse Family Medicine 10/27/23 03/25/24 Debora Saenz, CHERI Licensed Practical Nurse Family Medicine 03/25/24 05/06/24 Edna Alcantara LPN 05/06/24 documented as of this encounter
--- OUTSIDE RECORDS SUMMARY | 2024-07-22 06:08 | XMS_ITS | Encounter Summary ---
Author Organization [facility] Address [address] [facility] [place] [address] Care Team Providers Care Repairer Wood Furniture Name Role Phone Ole Yang MD Unavailable [phone] Ole Yang MD Primary Care Provider [phone] ThursdayBea LPN Unavailable [phone] Debora Saenz RN Unavailable [phone] Edna Alcantara LPN Unavailable Unavailable Encounter Details Date Type Department Care Team (Late st Contact Info) Description 11/30/2023 Orders Only [facility] [address] [place] [phone] Teri Jo MD [address] [place] [address] Social History Tobacco Use Types Packs/Day Years [...] 10/29/2023 How often do you attend chur or mandaeism services? Never 10/29/2023 Do you belong to any clubs o r organizations such as samaritan groups, unions, fraternal or athletic groups, or [...] and heating? Not hard at all 10/29/2023 [facility] [place] of Occupat ional Health - Occupational Stress [...] any time in the past 12 m [facility], were you homeless or living in a usp (including now)? No 10/29/2023 Comments Unknown Sex and Gender Information Value Date Recorded Sex Assigned at Not on file Legal Sex Female 7:05 PM EDT Gender Identity Not on file Sexual Orientation Not on file documented as of this encounter Plan of Treatment Upcoming Encounters Date Type Department Care Team (Late st Contact Info) Description 08/11/2024 10:00 AM EDT Office Visit [facility] [address] [place] [address] Dipti Wolf PA [address] [place] [address] 08/31/2024 9:30 AM EDT Office Visit [facility] [address] [place] [address] Dipti Wolf PA [address] [place] [address] 11/30/2024 10:00 AM EDT Office Visit [facility] [address] [place] [address] Teri Jo MD [address] [place] [address] documented as of this encounter Procedures Procedure Name Priority Date/Time Associated Diagnosis Comments T3, FREE Routine 11/30/2023 11:43 AM EDT T4, FREE Routine 11/30/2023 11:43 AM EDT documented in this encounter Results * T3, free (11/30/2023 11:43 AM EDT) Blood Venous blood specimen / Unknown Teri Jo MD LAB BLOOD ORDERABLES Final Re sult * T4, free (11/30/2023 11:43 AM EDT) Blood Venous blood specimen / Unknown Teri Jo MD LAB BLOOD ORDERABLES Final Re sult documented in this encounter Visit Diagnoses Not on filedocumented in this encounter Additional Health Concerns Assessment Noted Time PHQ-9 Depression Total Score: 10 024 9:00 AM EDT documented as of this encounter Care Teams Repairer Wood Furniture Relationship Specialty Start Date End Date Ole Yang MD [address] [place] [address] PCP - ACO Reach 07/10/22 Ole Yang MD [address] [place] [address] PCP - General Internal Medicine 07/28/22ThuKeonBea LPN [address] [place] [address] Licensed Practical Nurse Family Medicine 10/27/23 03/25/24 Debora Saenz, CHERI Licensed Practical Nurse Family Medicine 03/25/24 05/06/24 Edna Alcantara LPN 05/06/24 documented as of this encounter
--- OUTSIDE RECORDS SUMMARY | 2024-07-22 06:08 | XMS_ITS | Encounter Summary ---
Author Organization [facility] Address [address] [facility] [place] [address] Care Team Providers Care Wheel Borer Name Role Phone Ole Yang MD Unavailable [phone] Ole Yang MD Primary Care Provider Debora Saenz RN Unavailable [phone] Edna Alcantara LPN Unavailable Unavailable Encounter Details Date Type Department Care Team (Late st Contact Info) Description 03/31/2024 Abstract [facility] [address] [facility] 110 [place] [phone] Ole Yang MD 112 [facility] 110 [place] [address] Social History Tobacco Use Types [...] often do you attend chur ch or religion services? Never 10/29/2023 Do you belong to any clubs o r organizations such as episcopalian groups, unions, fraternal or athletic groups, or [...] heating? Not hard at all 10/29/2023 [facility] of Occupat ional Health - Occupational Stress [...] any time in the past 12 m [facility], were you homeless or living in a fpc (including now)? No 10/29/2023 Comments Unknown Sex [...] Visit [facility] [address] [facility] [address] [place] [address] Dipti Wolf PA [address] [place] [address] 08/31/2024 9:30 AM EDT Office Visit [facility] [address] [place] [address] Dipti Wolf PA [address] [place] [address] 11/30/2024 10:00 AM EDT Office Visit [facility] [address] [place] [phone] Teri Jo MD [address] [place] [address] documented as of this encounter Visit Diagnoses Not on filedocumented in this encounter Additional Health Concerns Assessment Noted Time PHQ-9 Depression Total Score: 10 024 9:00 AM EDT documented as of this encounter Care Teams Wheel Borer Relationship Specialty Start Date End Date Ole Yang MD [address] [place] [address] PCP - ACO Reach 07/10/22 Ole Yang MD [address] [place] [address] PCP - General Internal Medicine 07/28/22 Debora Saenz, RN Licensed Practical Nurse Family Medicine 03/25/24 05/06/24 Edna Alcantara LPN 05/06/24 documented as of this encounter
--- OUTSIDE RECORDS SUMMARY | 2024-07-22 06:08 | XMS_ITS | Encounter Summary ---
Author Organization [facility] Address [address] [place] [address] Care Team Providers Care Injection Molding Engineer Name Role Phone Ole Yang MD Unavailable [phone] Ole Yang MD Primary Care Provider ThursdayBea LPN Unavailable [phone] Debora Saenz RN Unavailable [phone] Edna Alcantara WELDING ENGINEER Unavailable Unavailable Encounter Details Date Type Department Care Team (Late Contact Info) Description 09/02/2023 Abstract [facility] [address] [facility] 110 [place] [address] Ole Yang MD [address] [facility] 110 [place], [place] [id number] Social History Tobacco Use Types Packs/Day Years [...] [address] [place] [address] Dipti Wolf PA [address] [place] [address] 08/31/2024 9:30 AM EDT Office Visit [facility] [address] [place] [address] Dipti Wolf PA [address] [place] [address] 11/30/2024 10:00 AM EDT Office Visit [facility] [address] [place] [phone] Teri Jo MD [address] [place] [address] documented as of this encounter Visit Diagnoses Not on filedocumented in this encounter Additional Health Concerns Assessment Noted Time PHQ-9 Depression Total Score: 10 024 9:00 AM EDT documented as of this encounter Care Teams Injection Molding Engineer Relationship Specialty Start Date End Date Ole Yang MD [address] [place] [address] PCP - ACO Reach 07/10/22 Ole Yang MD [address] [place] [address] PCP - General Internal Medicine 07/28/22ThursdayBea LPN [address] [place] [address] Licensed Practical Nurse Family Medicine 10/27/23 03/25/24 Debora Saenz, RN Licensed Practical Nurse Family Medicine 03/25/24 05/06/24 Edna Alcantara LPN 05/06/24 documented as of this encounter
--- OUTSIDE RECORDS SUMMARY | 2024-07-22 06:08 | XMS_ITS | Clinical Summary ---
Author Organization [employer] Address [id number] [address] [place] [address] Care Team Providers Care Squeezer Operator Name Role Phone Ole Yang MD Primary Care Provider [phone] Allergies No known active allergies Medications cholecalciferol , vitamin D3, 10 mcg (400 unit) capsule 1 (one) time each day at the same time. Active multivitamin,tx -pvec-Ec-UG-min 27-0.4 mg tablet 1 (one) time each day at the same time. Active ELIQUIS 5 mg tablet 3 Active aspirin 81 mg daily. Active atorvastatin (LIPITOR) 80 mg tablet 3 Active bumetanide (BUMEX) 1 mg tablet as needed. Active calcium carbonate-vitam in D3 600 mg(1,500mg) -200 units per tablet 1 (one) time each day at the same time. Active LORazepam (ATIVAN) 0.5 mg tablet lorazepam 0.5 mg tablet 2 Active lovastatin (MEVACOR) 40 mg tablet lovastatin 40 mg tablet Active metoprolol succinate XL (TOPROL XL) 50 mg 24 hr tablet 3 Active PARoxetine (PAXIL) 20 mg tablet 3 Active tiotropium-olod ateroL 2.5-2.5 mcg/actuation mist Inhale 2 puffs every day by inhalation route. Active lisinopriL (PRINIVIL,ZESTR IL) 5 mg tablet Take 1 tablet (5 mg total) by mouth in the morning. Active methIMAzole (TAPAZOLE) 10 mg tablet Take 0.5 tablets every day by oral route. Active spironolactone (ALDACTONE) 25 mg tablet Take 1 tablet (25 mg total) by mouth in the morning. Active ascorbic acid, vitamin C, (vitamin C) 1000 mg tablet Take 1 tablet (1,000 mg total) by mouth in the morning. Active predniSONE (DELTASONE) 20 mg tablet TAKE 1 TABLET (20 MG) BY MOUTH IN THE MORNING AND 1 TABLET (20 MG) BEFORE BEDTIME. DO ALL THIS FOR 5 DAYS. Active Active Problems No known active problems Family History Medical History Relation Name Comments Cataracts Mother Relation Name Status Comments Mother Social History Tobacco Use Types Packs/Day Years Used Date Smoking Tobacco: Never Smokeless Tobacco: Never Tobacco Cessation:Counseling Given: Not Answered Comments Unknown Sex and Gender Information Value Date Recorded Sex Assigned at Not on file Legal Sex Female 10:11 AM EDT Gender Identity Not on file Sexual Orientation Not on file Last Filed Vital Signs Vital Sign Reading Time Taken Comments Blood Pressure 118/74 12/03/2022 9:33 AM EDT Pulse 70 12/03/2022 9:33 AM EDT Temperature - - Respiratory Rate 18 09/11/2022 2:11 PM EDT Oxygen Saturation 98% 09/11/2022 2:11 PM EDT Inhaled Oxygen Concentration - - Weight 80.7 kg (178 lb) 12/03/2022 9:33 AM EDT Height 170.2 cm (5' 7 ) 12/03/2022 9:33 AM EDT Body Mass Index 27.88 12/03/2022 9:33 AM EDT Plan of Treatment Health Maintenance Due Date Last Done Comments Depression Screening 1954 DTaP,Tdap and Td Vaccines (1 - Tdap) 1961 Fall Risk Screening 08/17/2007 COVID-19 Vaccine (2023-2 5 season) 2023 01/01/2023, 12/10/2021, 02/03/2021, Additional history exists Tobacco Screening 04/27/2024 04/28/2023 Influenza Vaccine 10/17/2024 11/26/2022, , 01/17/2021, Additional history exists Zoster (Shingles) Vaccine Completed 01/01/2023, 02/2022 Medical Devices Implanted Type Area Contract Engineer Device Identifier Shelf Expiration Date Model / Serial / Lot Icd ICD [employer] VIGILANT [id number] / [id number] / Insurance MEDICARE COMMERCIAL Care Teams Squeezer Operator Relationship Specialty Start Date End Date Ole Yang MD 112 [facility] 110 [place] [address] PCP - General Internal Medicine 08/13/22
--- OUTSIDE RECORDS SUMMARY | 2024-07-22 06:08 | XMS_ITS | Encounter Summary ---
Author Organization [facility] Address [address] [place] [address] Care Team Providers Care Flash Welder Name Role Phone Ole Yang MD Unavailable [phone] Ole Yang MD Primary Care Provider [phone] ThursdayBea LPN Unavailable [phone] Debora Saenz RN Unavailable [phone] Edna Alcantara LPN Unavailable Unavailable Encounter Details Date Type Department Care Team (Late Contact Info) Description 07/08/2023 Clinisync Result Encounter [facility] External Department Unsolicited [...] 112 [facility] 110 [place] [address] Dipti Wolf PA 112 [facility] [address] [place], [place] [address] 08/31/2024 9:30 AM EDT Office Visit [facility] [address] [facility] 110 [place] [address] Dipti Wolf PA [address] [facility] 110 [place] [address] 11/30/2024 10:00 AM EDT Office Visit [facility] [address] [place] [address] Teri Jo MD [address] [place] [address] documented as of this encounter Procedures Procedure Name Priority Date/Time Associated Diagnosis Comments XR CHEST 2V 07/08/2023 1:50 PM EDT documented in this encounter Results * XR CHEST 2V (07/08/2023 1:50 PM EDT) Anatomical Region Laterality Modality Other 07/08/2023 1:50 PM EDT Narrative 07/08/2023 1:53 PM EDT [address] [address] XRay Report Signed Patient: LLUVIA FERRARO MR#: [id number] : 1940 Acct:[id number] Age/Sex: 82 / F ADM Date: 07/08/23 Loc: LAB Attending Dr: LARRY ANTON Ordering Physician: LARRY ANTON Date of Service: 07/08/23 Procedure(s): XR chest 2V Accession Number(s): [id number] cc: OLE YANG ; LARRY ANTON The [address] [address] Patient Name: LLUVIA FERRARO MRN: [id number] date: 1940 Sex: F Assigned Patient Location: LAB Current Patient Location: LAB Accession/Order Number: [id number] Exam Date: 07/08/2023 11:19 Report Date: 07/08/2023 13:50 At the request of: LARRY ANTON Procedure: XR chest 2V EXAMINATION: XR chest 2V HISTORY: Chronic systolic heart failure I50.22 COMPARISON: 08/22/2021 TECHNIQUE: PA and lateral FINDINGS: LUNGS: No significant pulmonary parenchymal abnormalities. VASCULATURE: No increased pulmonary vasculature. PLEURA: No pneumothorax, effusion, or pleural thickening. CARDIAC: Stable prominent heart size MEDIASTINUM: No visible mass or adenopathy. 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 XR/XR chest 2V IMPRESSION: Stable exam. No acute cardiopulmonary process Electronically authenticated by: ROLANDO MONTERO Date: 07/08/2023 13:50 Dictated By: Rolando Montero M.D. Signed By: 07/08/23 1353 DD/ 1350 TD/TT: Plan Nurse: Procedure Note Radiology, Radiologist, MD - 07/08/2023 [place] [address] XRay Report Signed Patient: LLUVIA FERRARO LMR#: [id number] : 1940cct:[id number] Age/Sex: 82 / FADM Date: 07/08/23 Loc: LAB Attending Dr: LARRY ANTON Ordering Physician: LARRY ANTON Date of Service: 07/08/23 Procedure(s): XR chest 2V Accession Number(s): [id number] cc: OLE YANG ; LARRY ANTON [place] [id number] Patient Name: LLUVIA FERRARO MRN: [id number] date: 1940 Sex: F Assigned Patient Location: LAB Current Patient Location: LAB Accession/Order Number: [id number] Exam Date: 07/08/2023 11:19 Report Date: 07/08/2023 13:50 At the request of: LARRY ANTON Procedure: XR chest 2V EXAMINATION: XR chest 2V HISTORY: Chronic systolic heart failure I50.22 COMPARISON: 08/22/2021 TECHNIQUE: PA and lateral FINDINGS: LUNGS: No significant pulmonary parenchymal abnormalities. VASCULATURE: No increased pulmonary vasculature. PLEURA: No pneumothorax, effusion, or pleural thickening. CARDIAC: Stable prominent heart size MEDIASTINUM: No visible mass or adenopathy. Left pacemaker BONES: Severe bilateral glenohumeral joint osteoarthritis degenerativechanges of the spine OTHER: Negative. XR/XR chest 2V IMPRESSION: Stable exam. No acute cardiopulmonary process Electronically authenticated by: ROLANDO MONTERO Date: 07/08/2023 13:50 Dictated By: Rolando Montero M.D. Signed By:07/08/23 1353 DD/ 1350 TD/TT: Plan Nurse: us Generic External Data Provider [facility] Final Result documented in this encounter Visit Diagnoses Not on filedocumented in this encounter Additional Health Concerns Assessment Noted Time PHQ-9 Depression Total Score: 10 024 9:00 AM EDT documented as of this encounter Care Teams Flash Welder Relationship Specialty Start Date End Date Ole Yang MD [address] [place] [address] PCP - ACO Reach 07/10/22 Ole Yang MD [address] [place] [address] PCP - General Internal Medicine 07/28/22ThursdayBea LPN [address] [place] [address] Licensed Practical Nurse Family Medicine 10/27/23 03/25/24 Debora Saenz, RN Licensed Practical Nurse Family Medicine 03/25/24 05/06/24 Edna Alcantara LPN 05/06/24 documented as of this encounter
--- OUTSIDE RECORDS SUMMARY | 2024-07-22 06:08 | XMS_ITS | Encounter Summary ---
Author Organization [facility] Address [address] [facility] [place] [address] Care Team Providers Care Television Parts Tester Name Role Phone Ole Yang MD Unavailable [phone] Ole Yang MD Primary Care Provider [phone] ThursdayBea LPN Unavailable [phone] Debora Saenz RN Unavailable Edna Alcantara FINANCIAL AID OFFICER Unavailable Unavailable Encounter Details Date Type Department Care Team (Late st Contact Info) Description 03/17/2024 Abstract [facility] 112 [facility] 110 [place] [address] Ole Yang MD 112 [facility] 110 [place] [address] Social History Tobacco Use Types [...] often do you attend chur ch or hoahaoism services? Never 10/29/2023 Do you belong to any clubs o r organizations such as religious groups, unions, fraternal or athletic groups, or [...] and heating? Not hard at all 10/29/2023 [facility] [place] of Occupat ional Health - Occupational Stress [...] any time in the past 12 m [facility], were you homeless or living in a snf (including now)? No 10/29/2023 Comments Unknown Sex and Gender Information Value Date Recorded Sex Assigned at Not on file Legal Sex Female 7:05 PM EDT Gender Identity Not on file Sexual Orientation Not on file documented as of this encounter Plan of Treatment Upcoming Encounters Date Type Department Care Team (Late st Contact Info) Description 08/11/2024 10:00 AM EDT Office Visit [facility] [address] [place] [address] Dipti Wolf PA [address] [place] [address] 08/31/2024 9:30 AM EDT Office Visit [facility] [address] [place] [address] Dipti Wolf PA [address] [place] [address] 11/30/2024 10:00 AM EDT Office Visit [facility] [address] [place] [phone] Teri Jo MD [address] [place] [address] documented as of this encounter Visit Diagnoses Not on filedocumented in this encounter Additional Health Concerns Assessment Noted Time PHQ-9 Depression Total Score: 10 024 9:00 AM EDT documented as of this encounter Care Teams Television Parts Tester Relationship Specialty Start Date End Date Ole Yang MD [address] [place] [address] PCP - ACO Reach 07/10/22 Ole Yang MD [address] [place] [address] PCP - General Internal Medicine 07/28/22ThursdayBea LPN [address] [place] [address] Licensed Practical Nurse Family Medicine 10/27/23 03/25/24 Debora Saenz, CHERI Licensed Practical Nurse Family Medicine 03/25/24 05/06/24 Edna Alcantara LPN 05/06/24 documented as of this encounter
--- OUTSIDE RECORDS SUMMARY | 2024-07-22 06:08 | XMS_ITS | Encounter Summary ---
Author Organization [employer] [facility] tem Address [id number] [address] [place] [address] Care Team Providers Care Minister Name Role Phone Ole Yang MD Primary Care Provider [phone] Encounter Details Date Type Department Care Team (Late st Contact Info) Description 09/24/2022 [facility] [address] [facility] 1 [place] [address] Starla Barron Social History Tobacco Use Types Packs/Day Years Used Date Smoking Tobacco: Never Smokeless Tobacco: Never Comments Unknown Sex and Gender Information Value Date Recorded Sex Assigned at Not on file Legal Sex Female 10:11 AM EDT Gender Identity Not on file Sexual Orientation Not on file documented as of this encounter Miscellaneous Notes * Telephone Encounter - Starla Barron - 09/24/2022 2:15 PM EDT Patient's daughter called into the office. She said that they called Dr. Bria Gracia and were toldthat she does not treat double vision. Dr. Nichols referred the patient to this doctor when she was seen on 09/18/22. Please advise. Thank you, Starla Mejia * Telephone Encounter - Starla Barron - 09/24/2022 2:15 PM EDT I called the patient, and then her daughter Ashtyn with Dr. Nichols's response below. They will callDr. Bria Gracia's office and set up an appointment as recommended. Thank you, Starla Mejia documented in this encounter Plan of Treatment Not on file documented as of this encounter Visit Diagnoses Not on filedocumented in this encounter Care Teams Minister Relationship Specialty Start Date End Date Ole Yang MD [address] [phone] PCP - General Internal Medicine 08/13/22 documented as of this encounter
--- OUTSIDE RECORDS SUMMARY | 2024-07-22 06:08 | XMS_ITS | Encounter Summary ---
Author Organization [facility] Address [address] [facility] [place] [address] Care Team Providers Care Special Forces Communications Sergeant Name Role Phone Ole Yang MD Unavailable [phone] Ole Yang MD Primary Care Provider ThursdayBea LPN Unavailable [phone] Debora Saenz RN Unavailable Edna Alcantara TRAVELING REPRESENTATIVE Unavailable Unavailable Encounter Details Date Type Department Care Team (Late st Contact Info) Description 03/03/2024 Abstract [facility] [address] [facility] 110 [place] [address] Ole Yang MD 112 [facility] 110 [place] [address] Social History Tobacco Use Types [...] often do you attend chur ch or anabaptist services? Never 10/29/2023 Do you belong to any clubs o r organizations such as faith groups, unions, fraternal or athletic groups, or [...] and heating? Not hard at all 10/29/2023 [facility] [place] of Occupat ional Health - Occupational Stress [...] were you homeless or living in a group home (including now)? No 10/29/2023 Comments Unknown Sex and Gender Information Value Date Recorded Sex Assigned at Not on file Legal Sex Female 7:05 PM EDT Gender Identity Not on file Sexual Orientation Not on file documented as of this encounter Plan of Treatment Upcoming Encounters Date Type Department Care Team (Late st Contact Info) Description 08/11/2024 10:00 AM EDT Office Visit [facility] [address] [place] [address] Dipti Wolf PA [address] [place] [address] 08/31/2024 9:30 AM EDT Office Visit [facility] [address] [place] [address] Dipti Wolf PA [address] [place] [address] 11/30/2024 10:00 AM EDT Office Visit [facility] [address] [place] [phone] Teri Jo MD [address] [place] [address] documented as of this encounter Visit Diagnoses Not on filedocumented in this encounter Additional Health Concerns Assessment Noted Time PHQ-9 Depression Total Score: 10 024 9:00 AM EDT documented as of this encounter Care Teams Special Forces Communications Sergeant Relationship Specialty Start Date End Date Ole Yang MD [address] [place] [address] PCP - ACO Reach 07/10/22 Ole Yang MD [address] [place] [address] PCP - General Internal Medicine 07/28/22ThursdayBea LPN [address] [place] [address] Licensed Practical Nurse Family Medicine 10/27/23 03/25/24 Debora Saenz, CHERI Licensed Practical Nurse Family Medicine 03/25/24 05/06/24 Edna Alcantara LPN 05/06/24 documented as of this encounter
--- OUTSIDE RECORDS SUMMARY | 2024-07-22 06:08 | XMS_ITS | Encounter Summary ---
Author Organization [facility] Address [address] [place] [address] Care Team Providers Care Bill Hiker Name Role Phone Ole Yang MD Unavailable [phone] Ole Yang MD Primary Care Provider ThursdayBea LPN Unavailable [phone] Debora Saenz RN Unavailable Edna Alcantara PRINTER HELPER Unavailable Unavailable Encounter Details Date Type Department Care Team (Late st Contact Info) Description 09/01/2023 Abstract [facility] [address] [facility] 110 [place] [address] Ole Yang MD [address] [facility] 110 [place], [place] [id number] Social History Tobacco Use Types Packs/Day Years [...] [address] [place] [address] Dipti Wofl PA [address] [place] [address] 08/31/2024 9:30 AM EDT Office Visit [facility] [address] [place] [address] Dipti Wolf PA [address] [place] [address] 11/30/2024 10:00 AM EDT Office Visit [facility] [address] [place] [phone] Teri Jo MD [address] [place] [address] documented as of this encounter Visit Diagnoses Not on filedocumented in this encounter Additional Health Concerns Assessment Noted Time PHQ-9 Depression Total Score: 10 024 9:00 AM EDT documented as of this encounter Care Teams Bill Hiker Relationship Specialty Start Date End Date Ole Yang MD [address] [place] [address] PCP - ACO Reach 07/10/22 Ole Yang MD [address] [place] [address] PCP - General Internal Medicine 07/28/22ThursdayBea LPN [address] [place] [address] Licensed Practical Nurse Family Medicine 10/27/23 03/25/24 Debora Saenz, RN Licensed Practical Nurse Family Medicine 03/25/24 05/06/24 Edna Alcantara LPN 05/06/24 documented as of this encounter
--- OUTSIDE RECORDS SUMMARY | 2024-07-22 06:08 | XMS_ITS | Encounter Summary ---
Author Organization [facility] Address [address] [place] [address] Care Team Providers Care Electronic Publications Specialist Name Role Phone Ole Yang MD Unavailable [phone] Ole Yang MD Primary Care Provider ThursdayBea LPN Unavailable [phone] Debora Saenz RN Unavailable Edna Alcantara LEAD PASTOR Unavailable Unavailable Encounter Details Date Type Department Care Team (Late Contact Info) Description 02/16/2023 Clinisync Result Encounter [facility] External Department Unsolicited Ole Yang MD [address] [facility] 110 [place] [address] Social History Tobacco Use Types [...] 08/11/2024 10:00 AM EDT Office Visit [facility] [address] [place] [address] Dipti Wolf PA [address] [place] [address] 08/31/2024 9:30 AM EDT Office Visit [facility] [address] [place] [address] Dipti Wolf PA [address] [place] [address] 11/30/2024 10:00 AM EDT Office Visit [facility] [address] [place] [phone] Teri Jo MD [address] [place] [address] documented as of this encounter Procedures Procedure Name Priority Date/Time Associated Diagnosis Comments VASC US LOWER EXTREMITY VENOUS DUPLEX RIGHT 02/16/2023 11:04 AM EST documented in this encounter Results * Vascular US lower extremity venous duplex right (02/16/2023 11:04 AM EST) Anatomical Region Laterality Modality Lower Extremities Ultrasound 02/16/2023 11:0 4 AM EST Narrative 02/16/2023 11:07 AM EST [address] [address] Ultrasound Report Signed Patient: LLUVIA FERRARO MR#: [id number] : 1940 Acct:[id number] Age/Sex: 82 / F ADM Date: 02/14/23 Loc: US Attending Dr: OLE YANG Ordering Physician: OLE YANG Date of Service: 02/14/23 Procedure(s): US venous doppler LE RT Accession Number(s): [id number] cc: OLE YANG [address] [address] Patient Name: LLUVIA FERRARO MRN: [id number] date: 1940 Sex: F Assigned Patient Location: US Current Patient Location: Accession/Order Number: [id number] Exam Date: 02/14/2023 10:30 Report Date: 02/16/2023 11:04 At the request of: OLE YANG Procedure: US venous doppler LE RT EXAMINATION: US venous doppler LE RT HISTORY: LOCALIZED EDEMA R80.0 COMPARISON: No relevant comparison available. FINDINGS: REGION: Right lower extremity THROMBI: None. COMPRESSIBILITY: Normal compressibility. FLOW: Normal waveform and antegrade flow between 5 and 20 cm/s. OTHER: Subcutaneous edema. US/US venous doppler LE RT IMPRESSION: 1. No deep vein thrombus within the right lower extremity. Electronically authenticated by: NAEEM GARCIA Date: 02/16/2023 11:04 Dictated By: Naeem Garcia M.D. Signed By: 02/16/23 1107 DD/ 1104 TD/TT: Cable Way Operator: Procedure Note Radiology, Radiologist, MD - 02/16/2023 [place] [address] Ultrasound Report Signed Patient: LLUVIA FERRARO LMR#: [id number] : 1940cct:[id number] Age/Sex: 82 / FADM Date: 02/14/23 Loc: US Attending Dr: OLE YANG Ordering Physician: OLE YANG Date of Service: 02/14/23 Procedure(s): US venous doppler LE RT Accession Number(s): [id number] cc: OLE YANG [place] [id number] Patient Name: LLUVIA FERRARO MRN: [id number] date: 1940 Sex: F Assigned Patient Location: US Current Patient Location: Accession/Order Number: [id number] Exam Date: 02/14/2023 10:30 Report Date: 02/16/2023 11:04 At the request of: OLE YANG Procedure: US venous doppler LE RT EXAMINATION: US venous doppler LE RT HISTORY: LOCALIZED EDEMA R80.0 COMPARISON: No relevant comparison available. FINDINGS: REGION: Right lower extremity THROMBI: None. COMPRESSIBILITY: Normal compressibility. FLOW: Normal waveform and antegrade flow between 5 and 20 cm/s. OTHER: Subcutaneous edema. US/US venous doppler LE RT IMPRESSION: 1. No deep vein thrombus within the right lower extremity. Electronically authenticated by: NAEEM GARCIA Date: 02/16/2023 11:04 Dictated By: Naeem Garcia M.D. Signed By:02/16/23 1107 DD/ 110 TD/TT: Cable Way Operator: us Ole Yang MD IMG US PROCEDURES Final Result documented in this encounter Visit Diagnoses Not on filedocumented in this encounter Care Teams Electronic Publications Specialist Relationship Specialty Start Date End Date Ole Yang MD [address] [place] [address] PCP - ACO Reach 07/10/22 Ole Yang MD [address] [place] [address] PCP - General Internal Medicine 07/28/22Thursday, JUAN Figueredo [address] [place] [address] Licensed Practical Nurse Family Medicine 10/27/23 03/25/24 Debora Saenz, RN Licensed Practical Nurse Family Medicine 03/25/24 05/06/24 Edna Alcantara LPN 05/06/24 documented as of this encounter
--- OUTSIDE RECORDS SUMMARY | 2024-07-22 06:08 | XMS_ITS | Encounter Summary ---
Author Organization [facility] Address [address] [place] [address] Care Team Providers Care Waiter/Waitress Counter Name Role Phone Ole Yang MD Unavailable [phone] Ole Yang MD Primary Care Provider [phone] ThursdayBea LPN Unavailable [phone] Debora Saenz RN Unavailable [phone] Edna Alcantara LPN Unavailable Unavailable Encounter Details Date Type Department Care Team (Late Contact Info) Description 08/07/2023 Clinisync Result Encounter [facility] External Department Unsolicited [...] EDT Office Visit [facility] 112 [facility] 110 [place] [address] Dipti Wolf PA 112 [facility] 110 [place], [place] [address] 08/31/2024 9:30 AM EDT Office Visit [facility] [address] [facility] 110 [place] [address] Dipti Wolf PA [address] [facility] 110 [place] [address] 11/30/2024 10:00 AM EDT Office Visit [facility] [address] [place] [address] Teri Jo MD [address] [place] [address] documented as of this encounter Procedures Procedure Name Priority Date/Time Associated Diagnosis Comments CA ECHO DOPPLER COMPLETE 08/07/2023 5:59 PM EDT documented in this encounter Results * CA ECHO DOPPLER COMPLETE (08/07/2023 5:59 PM EDT) Anatomical Region Laterality Modality Other 08/07/2023 5:59 PM EDT Narrative 08/07/2023 6:00 PM EDT [place] [id number] Cardiology Report Signed Patient: LLUVIA FERRARO MR#: [id number] : 1940 Acct:[id number] Age/Sex: 82 / F ADM Date: 08/05/23 Loc: CARD Attending Dr: LARRY ANTON Ordering Physician: LARRY ATNON Date of Service: 08/05/23 Procedure(s): CA echo doppler complete Accession Number(s): [id number] cc: OLE YANG ; LARRY ANTON Patient Name: LLUVIA FERRARO MR#: [id number] : 1940 Exam Date: 08/05/2023 Ordering Doctor: LARRY ANTON ECHOCARDIOGRAM REPORT PROCEDURE: CA ECHO DOPPLER COMPLETE INDICATIONS: Chronic systolic heart failure, hypertension, AICD, COPD COMPARISON: None. DESCRIPTION: COMPLETE ECHOCARDIOGRAM Real-time transthoracic echocardiography with 2D, M-mode, spectral and color flow Doppler performed. QUALITY: Technical quality was good. 67 , 170#, BP 116/70 LEFT VENTRICLE: Normal chamber size. Proximal septal hypertrophy (sigmoid septum). Normal systolic function. LV EF: Normal left ventricular ejection fraction, (>55%). DIASTOLIC: ATRIAL SEPTUM: Visually appears intact. LEFT ATRIUM: Severe dilatation. RIGHT ATRIUM: Severe dilatation. RIGHT VENTRICLE: Mild dilatation. Normal systolic function. Pacer wire present. TRICUSPID VALVE: Normal mobility and thickness. No stenosis with mild regurgitation. No evidence of pulmonary hypertension. RVSP 27 mmHg MITRAL VALVE: Normal mobility and thickness. No evidence of mitral valve stenosis. There is no mitral annular calcification. Mild mitral regurgitation. AORTIC VALVE: Normal trileaflet appearance. No visible sclerosis. Normal leaflet mobility. No evidence of aortic valve stenosis. No aortic regurgitation. AORTIC ROOT: Normal diameter and appearance. Ascending aorta is normal in size. PULMONIC VALVE: Normal thickness and mobility. No stenosis. Mild regurgitation. PERICARDIUM: No evidence of pericardial effusion. IVC: Collapses with inspirations. IVC is normal in size. PLEURA: CONCLUSION: 1. Normal left ventricular size and systolic function. LVEF is 55 to 60%. 2. Mildly dilated right ventricle with normal systolic function. 3. Severe biatrial dilatation. 4. Mild mitral and tricuspid regurgitation. 5. Normal right-sided pressures. Adult Echocardiography Procedure Report Left Ventricle LVEDD (3.7 - 5.6 cm): 3.98 cm LVESD (2.2 - 4.0 cm): 2.91 cm LVIVS thickness (0.6 - 1.2 cm): 1.52 cm LVPW thickness (0.5 - 1.0 cm): 1.14 cm e': 0.09 m/s E - e': 10.64 LVOT Max Gradient: 2.15 mm[Hg] LVOT Area (cm2): 0.73 m/s Peak Velocity (LVOT): 0.73 m/s Mean Velocity (LVOT): 0.49 m/s LVOT Diameter 2.13 cm Left Atrium LA Volume Index (2D A2C): 62.81 ml/m2 Left Atrium Systolic Dimension: 5.08 cm Mitral Valve MV E to A Ratio: 4.58 Mitral Valve A-Wave Peak Velocity: 0.22 m/s Mitral Valve E-Wave Peak Velocity: 1.01 m/s Right Ventricle Aorta AO Root Diam: 2.84 cm Ascending Ao Diam: 2.98 cm Aortic Valve AoV Area (Peak Vicente): 2.55 cm2, 2.55 cm2 AoV Area (VTI): 2.78 cm2, 2.78 cm2 Peak Velocity(Antegrade Flow): 1.02 m/s Peak Gradient(Antegrade Flow): 4.19 mm[Hg] Mean Velocity(Antegrade Flow): 0.69 m/s Mean Gradient(Antegrade Flow): 2.14 mm[Hg] Velocity Time Integral: 21.43 cm Tricuspid Valve Peak Velocity (Regurgitant Flow): 2.46 m/s, 2.31 m/s Pulmonic Valve Peak Gradient: 2.77 mm[Hg], 3.51 mm[Hg] Right Atrium Right Atrium Systolic Pressure: 101.68 ml, 101.68 ml Dictated by: Ruddy Lucas M.D. on 08/07/2023 at 17:56 Approved by: Ruddy Lucas M.D. on 08/07/2023 at 17:59 Dictated By: RUDDY LUCAS Signed By: 08/07/23 1800 DD/ 1759 TD/TT: Box Bender: Procedure Note Radiology, Radiologist, MD - 08/07/2023 [place] [address] Cardiology Report Signed Patient: LLUVIA FERRARO LMR#: [id number] : 1940cct:[id number] Age/Sex: 82 / FADM Date: 08/05/23 Loc: CARD Attending Dr: LARRY ANTON Ordering Physician: LARRY ANTON Date of Service: 08/05/23 Procedure(s): CA echo doppler complete Accession Number(s): [id number] cc: OLE YANG MELISSA Patient Name: LLUVIA FERRARO MR#: [id number] : 1940 Exam Date: 08/05/2023 Ordering Doctor: LARRY ANTON ECHOCARDIOGRAM REPORT PROCEDURE: CA ECHO DOPPLER COMPLETE INDICATIONS: Chronic systolic heart failure, hypertension, AICD, COPD COMPARISON: None. DESCRIPTION: COMPLETE ECHOCARDIOGRAM Real-time transthoracic echocardiography with 2D, M-mode, spectral and color flow Dopplerperformed. QUALITY: Technical quality was good. 67 , 170#, BP 116/70 LEFT VENTRICLE: Normal chamber size. Proximal septal hypertrophy(sigmoid septum). Normal systolic function. LV EF: Normal left ventricular ejection fraction, (>55%). DIASTOLIC: ATRIAL SEPTUM: Visually appears intact. LEFT ATRIUM: Severe dilatation. RIGHT ATRIUM: Severe dilatation. RIGHT VENTRICLE: Mild dilatation. Normal systolic function. Pacerwire present. TRICUSPID VALVE: Normal mobility and thickness. No stenosis with mild regurgitation. No evidence of pulmonary hypertension. RVSP 27 mmHg MITRAL VALVE: Normal mobility and thickness. No evidence of mitralvalve stenosis. There is no mitral annular calcification. Mild mitral regurgitation. AORTIC VALVE: Normal trileaflet appearance. No visible sclerosis.Normal leaflet mobility. No evidence of aortic valve stenosis. No aortic regurgitation. AORTIC ROOT: Normal diameter and appearance. Ascending aorta is normalin size. PULMONIC VALVE: Normal thickness and mobility. No stenosis. Mild regurgitation. PERICARDIUM: No evidence of pericardial effusion. IVC: Collapses with inspirations. IVC is normal in size. PLEURA: CONCLUSION: 1. Normal left ventricular size and systolic function. LVEF is 55 to 60%. 2. Mildly dilated right ventricle with normal systolic function. 3. Severe biatrial dilatation. 4. Mild mitral and tricuspid regurgitation. 5. Normal right-sided pressures. Adult Echocardiography Procedure Report Left Ventricle LVEDD (3.7 - 5.6 cm): 3.98 cm LVESD (2.2 - 4.0 cm): 2.91 cm LVIVS thickness (0.6 - 1.2 cm): 1.52 cm LVPW thickness (0.5 - 1.0 cm): 1.14 cm e': 0.09 m/s E - e': 10.64 LVOT Max Gradient: 2.15 mm[Hg] LVOT Area (cm2): 0.73 m/s Peak Velocity (LVOT): 0.73 m/s Mean Velocity (LVOT): 0.49 m/s LVOT Diameter 2.13 cm Left Atrium LA Volume Index (2D A2C): 62.81 ml/m2 Left Atrium Systolic Dimension: 5.08 cm Mitral Valve MV E to A Ratio: 4.58 Mitral Valve A-Wave Peak Velocity: 0.22 m/s Mitral Valve E-Wave Peak Velocity: 1.01 m/s Right Ventricle Aorta AO Root Diam: 2.84 cm Ascending Ao Diam: 2.98 cm Aortic Valve AoV Area (Peak Vicente): 2.55 cm2, 2.55 cm2 AoV Area (VTI): 2.78 cm2, 2.78 cm2 Peak Velocity(Antegrade Flow): 1.02 m/s Peak Gradient(Antegrade Flow): 4.19 mm[Hg] Mean Velocity(Antegrade Flow): 0.69 m/s Mean Gradient(Antegrade Flow): 2.14 mm[Hg] Velocity Time Integral: 21.43 cm Tricuspid Valve Peak Velocity (Regurgitant Flow): 2.46 m/s, 2.31 m/s Pulmonic Valve Peak Gradient: 2.77 mm[Hg], 3.51 mm[Hg] Right Atrium Right Atrium Systolic Pressure: 101.68 ml, 101.68 ml Dictated by: Ruddy Lucas M.D. on 08/07/2023 at 17:56 Approved by: Ruddy Lucas M.D. on 08/07/2023 at 17:59 Dictated By: RUDDY LUCAS Signed By:08/07/23 1800 DD/ 1759 TD/TT: Box Bender: [facility] Final Result documented in this encounter Visit Diagnoses Not on filedocumented in this encounter Additional Health Concerns Assessment Noted Time PHQ-9 Depression Total Score: 10 024 9:00 AM EDT documented as of this encounter Care Teams Waiter/Waitress Counter Relationship Specialty Start Date End Date Ole Yang MD [address] [facility] 110 [place] [address] PCP - ACO Reach 07/10/22 Ole Yang MD [address] [place] [address] PCP - General Internal Medicine 07/28/22Thursday, JUAN Figueredo [address] [place] [address] Licensed Practical Nurse Family Medicine 10/27/23 03/25/24 Debora Saenz, RN Licensed Practical Nurse Family Medicine 03/25/24 05/06/24 Edna Alcantara LPN 05/06/24 documented as of this encounter
--- OUTSIDE RECORDS SUMMARY | 2024-07-22 06:08 | XMS_ITS | Encounter Summary ---
Author Organization [facility] Address [address] [place] [address] Care Team Providers Care Software Asset Management Analyst Name Role Phone Ole Yang MD Unavailable [phone] Ole Yang MD Primary Care Provider ThursdayBea LPN Unavailable [phone] Debora Saenz RN Unavailable [phone] Edna Alcantara COMMUNITY CULTURAL DEVELOPMENT OFFICER Unavailable Unavailable Encounter Details Date Type Department Care Team (Late st Contact Info) Description 09/01/2023 Abstract [facility] [address] [facility] 110 [place] [address] Ole Yang MD [address] [facility] 110 [place], [place] [address] Social History Tobacco Use Types Packs/Day Years [...] [address] [place] [address] Dipti Wolf PA [address] [place] [address] 08/31/2024 9:30 AM EDT Office Visit [facility] [address] [place] [address] Dipti Wolf PA [address] [place] [address] 11/30/2024 10:00 AM EDT Office Visit [facility] [address] [place] [id number] Teri Jo MD [address] [place] [address] documented as of this encounter Visit Diagnoses Not on filedocumented in this encounter Additional Health Concerns Assessment Noted Time PHQ-9 Depression Total Score: 10 024 9:00 AM EDT documented as of this encounter Care Teams Software Asset Management Analyst Relationship Specialty Start Date End Date Ole Yang MD [address] [place] [address] PCP - ACO Reach 07/10/22 Ole Yang MD [address] [place] [address] PCP - General Internal Medicine 07/28/22ThursdayBea LPN [address] [place] [address] Licensed Practical Nurse Family Medicine 10/27/23 03/25/24 Debora Saenz, RN Licensed Practical Nurse Family Medicine 03/25/24 05/06/24 Edna Alcantara LPN 05/06/24 documented as of this encounter
--- OUTSIDE RECORDS SUMMARY | 2024-07-22 06:08 | XMS_ITS | Encounter Summary ---
Author Organization [facility] Address [address] [place] [address] Care Team Providers Care Executive Consultant Name Role Phone Ole Yang MD Unavailable [phone] Ole Yang MD Primary Care Provider [phone] ThursdayBea LPN Unavailable [phone] Debora Saenz RN Unavailable [phone] Edna Alcantara MACHINE PULLER OVER Unavailable Unavailable Encounter Details Date Type Department Care Team (Late Contact Info) Description 07/23/2023 Abstract [facility] [address] [facility] 110 [place] [address] Ole Ynag MD [address] [facility] 110 [place], [place] [id number] Social History Tobacco Use Types Packs/Day Years [...] [address] [place] [address] Dipti Wolf PA [address] [place] [address] 08/31/2024 9:30 AM EDT Office Visit [facility] [address] [place] [address] Dipti Wolf PA [address] [place] [address] 11/30/2024 10:00 AM EDT Office Visit [facility] [address] [place] [address] Teri Jo MD [address] [place] [address] documented as of this encounter Visit Diagnoses Not on filedocumented in this encounter Additional Health Concerns Assessment Noted Time PHQ-9 Depression Total Score: 10 024 9:00 AM EDT documented as of this encounter Care Teams Executive Consultant Relationship Specialty Start Date End Date Ole Yang MD [address] [place] [address] PCP - ACO Reach 07/10/22 Ole Yang MD [address] [place] [address] PCP - General Internal Medicine 07/28/22ThursdayBea LPN [address] [place] [address] Licensed Practical Nurse Family Medicine 10/27/23 03/25/24 Debora Saenz, RN Licensed Practical Nurse Family Medicine 03/25/24 05/06/24 Edna Alcantara LPN 05/06/24 documented as of this encounter
--- OUTSIDE RECORDS SUMMARY | 2024-07-22 06:08 | XMS_ITS | Encounter Summary ---
Author Organization [facility] Address [address] [place] [address] Care Team Providers Care Lace Machine Operator Name Role Phone Ole Yang MD Unavailable [phone] Ole Yang MD Primary Care Provider ThursdayBea LPN Unavailable [phone] Debora Saenz RN Unavailable Edna Alcantara AUTOMOBILE REPOSSESSOR Unavailable Unavailable Encounter Details Date Type Department Care Team (Late Contact Info) Description 10/05/2023 Abstract [facility] [address] [facility] 110 [place] [address] Ole Yang MD [address] [facility] 110 [place], [place] [address] Social History Tobacco Use Types Packs/Day Years [...] [address] [place] [address] Dipti Wolf PA [address] [place] [address] 08/31/2024 9:30 AM EDT Office Visit [facility] [address] [place] [address] Dipti Wolf PA [address] [place] [address] 11/30/2024 10:00 AM EDT Office Visit [facility] [address] [place] [phone] Teri Jo MD [address] [place] [address] documented as of this encounter Visit Diagnoses Not on filedocumented in this encounter Additional Health Concerns Assessment Noted Time PHQ-9 Depression Total Score: 10 024 9:00 AM EDT documented as of this encounter Care Teams Lace Machine Operator Relationship Specialty Start Date End Date Ole Yang MD [address] [place] [address] PCP - ACO Reach 07/10/22 Ole Yang MD [address] [place] [address] PCP - General Internal Medicine 07/28/22ThursdayBea LPN [address] [place] [address] Licensed Practical Nurse Family Medicine 10/27/23 03/25/24 Debora Saenz, RN Licensed Practical Nurse Family Medicine 03/25/24 05/06/24 Edna Alcantara LPN 05/06/24 documented as of this encounter
--- OUTSIDE RECORDS SUMMARY | 2024-07-22 06:08 | XMS_ITS | Encounter Summary ---
Author Organization [facility] Address [address] [place] [address] Care Team Providers Care It Security Engineer Name Role Phone Ole Yang MD Unavailable [phone] Ole Yang MD Primary Care Provider [phone] ThursdayBea LPN Unavailable [phone] Debora Saenz RN Unavailable Edna Alcantara SURGICAL SPECIALIST Unavailable Unavailable Encounter Details Date Type Department Care Team (Late Contact Info) Description 08/19/2023 Abstract [facility] [address] [facility] 110 [place] [address] Ole Yang MD [address] [facility] 110 [place], [place] [address] Social History Tobacco Use Types Packs/Day Years [...] [address] [place] [address] Dipti Wolf PA [address] [place] [address] 08/31/2024 9:30 AM EDT Office Visit [facility] [address] [place] [address] Dipti Wolf PA [address] [place] [address] 11/30/2024 10:00 AM EDT Office Visit [facility] [address] [place] [address] Teri Jo MD [address] [place] [address] documented as of this encounter Visit Diagnoses Not on filedocumented in this encounter Additional Health Concerns Assessment Noted Time PHQ-9 Depression Total Score: 10 024 9:00 AM EDT documented as of this encounter Care Teams It Security Engineer Relationship Specialty Start Date End Date Ole Yang MD [address] [place] [address] PCP - ACO Reach 07/10/22 Ole Yang MD [address] [place] [address] PCP - General Internal Medicine 07/28/22ThursdayBea LPN [address] [place] [address] Licensed Practical Nurse Family Medicine 10/27/23 03/25/24 Debora Saenz, RN Licensed Practical Nurse Family Medicine 03/25/24 05/06/24 Edna Alcantara LPN 05/06/24 documented as of this encounter
--- OUTSIDE RECORDS SUMMARY | 2024-07-22 06:08 | XMS_ITS | Encounter Summary ---
Author Organization [facility] Address [address] [address] Care Team Providers Care Airline Radio Operator Name Role Phone Ole Yang MD Unavailable [phone] Ole Yang MD Primary Care Provider ThursdayBea LPN Unavailable [phone] Debora Saenz RN Unavailable Edna Alcantara EMERGENCY VETERINARY TECHNICIAN Unavailable Unavailable Encounter Details Date Type Department Care Team (Late Contact Info) Description 08/10/2023 Abstract [facility] [address] [facility] 110 [place] [address] Ole Yang MD [address] [facility] 110 [place], [place] [id number] Social History Tobacco Use Types Packs/Day Years [...] [address] [address] [place] [address] Dipti Wolf PA [address] [facility] [address] [place] [address] 08/31/2024 9:30 AM EDT Office Visit [facility] [address] [address] [place] [address] Dipti Wolf PA [address] [facility] [address] [place] [address] 11/30/2024 10:00 AM EDT Office Visit [facility] [address] [place] [id number] Teri Jo MD [address] [place] [address] documented as of this encounter Visit Diagnoses Not on filedocumented in this encounter Additional Health Concerns Assessment Noted Time PHQ-9 Depression Total Score: 10 024 9:00 AM EDT documented as of this encounter Care Teams Airline Radio Operator Relationship Specialty Start Date End Date Ole Yang MD [address] [facility] [address] [place] [address] PCP - ACO Reach 07/10/22 Ole Yang MD [address] [facility] [address] [place] [address] PCP - General Internal Medicine 07/28/22ThursdayBea LPN [address] [place] [address] Licensed Practical Nurse Family Medicine 10/27/23 03/25/24 Debora Saenz, RN Licensed Practical Nurse Family Medicine 03/25/24 05/06/24 Edna Alcantara LPN 05/06/24 documented as of this encounter
--- OUTSIDE RECORDS SUMMARY | 2024-07-22 06:08 | XMS_ITS | Encounter Summary ---
Author Organization [employer] tem Address [id number] [address] [place] [address] Care Team Providers Care Wet Pour Supervisor Name Role Phone Ole Yang MD Primary Care Provider [phone] Encounter Details Date Type Department Care Team (Late st Contact Info) Description 11/03/2022 Telephone [facility] [address] [place] [address] Bozena Galdamez Social History Tobacco Use Types Packs/Day Years Used Date Smoking Tobacco: Never Smokeless Tobacco: Never Comments Unknown Sex and Gender Information Value Date Recorded Sex Assigned at Not on file Legal Sex Female 10:11 AM EDT Gender Identity Not on file Sexual Orientation Not on file documented as of this encounter Miscellaneous Notes * Telephone Encounter - Bozena Galdamez - 11/03/2022 1:22 PM EDT Varun Tejada called in stating she was advises that if pt's vsion changed she was to call in and letDr. Nichols know . Pt is having double vsion 100% of the time. Please advsie * Telephone Encounter - Neelam Nichols OD - 11/03/2022 1:22 PM EDT Let's schedule her for a follow-up tomorrow for diplopia. Thanks documented in this encounter Plan of Treatment Not on file documented as of this encounter Visit Diagnoses Not on filedocumented in this encounter Care Teams Wet Pour Supervisor Relationship Specialty Start Date End Date Ole Yang MD [address] [facility] 110 [place] [phone] PCP - General Internal Medicine 08/13/22 documented as of this encounter
--- OUTSIDE RECORDS SUMMARY | 2024-07-22 06:08 | XMS_ITS | Encounter Summary ---
Author Organization [facility] Address [address] [place] [address] Care Team Providers Care Sign Out Clerk Name Role Phone Ole Yang MD Unavailable [phone] Ole Yang MD Primary Care Provider ThursdayBea LPN Unavailable [phone] Debora Saenz RN Unavailable Edna Alcantara PRODUCTION MATERIAL COORDINATOR Unavailable Unavailable Encounter Details Date Type Department Care Team (Late st Contact Info) Description 08/17/2023 Orders Only [facility] [address] [facility] [address] [place] [address] Unallocated, Noms Provider, [address] [place], [place] [id number] Social History Tobacco Use Types Packs/Day Years [...] [address] [place] [address] Dipti Wolf PA [address] [place] [address] 08/31/2024 9:30 AM EDT Office Visit [facility] [address] [place] [address] Dipti Wolf PA [address] [place] [address] 11/30/2024 10:00 AM EDT Office Visit [facility] [address] [place] [id number] Teri Jo MD [address] [place] [address] documented as of this encounter Procedures Procedure Name Priority Date/Time Associated Diagnosis Comments SCANNED LABS Routine 08/12/2023 8:14 AM EDT documented in this encounter Results * SCANNED LABS (08/12/2023 8:14 AM EDT) us Noms Provider Unallocated LAB CHG PERFORMABLE S Final Result documented in this encounter Visit Diagnoses Not on filedocumented in this encounter Additional Health Concerns Assessment Noted Time PHQ-9 Depression Total Score: 10 024 9:00 AM EDT documented as of this encounter Care Teams Sign Out Clerk Relationship Specialty Start Date End Date Ole Yang MD [address] [place] [address] PCP - ACO Reach 07/10/22 Ole Yang MD [address] [place] [address] PCP - General Internal Medicine 07/28/22ThuKeonBea deleon LPN [address] [place] [address] Licensed Practical Nurse Family Medicine 10/27/23 03/25/24 Debora Saenz, CHERI Licensed Practical Nurse Family Medicine 03/25/24 05/06/24 Edna Alcantara LPN 05/06/24 documented as of this encounter
--- OUTSIDE RECORDS SUMMARY | 2024-07-22 06:09 | XMS_ITS | Encounter Summary ---
Author Organization [facility] Address [address] [place] [address] Care Team Providers Care Care Advocate Name Role Phone Ole Yang MD Unavailable [phone] Ole Yang MD Primary Care Provider [phone] Edna Alcantara LPN Unavailable Unavailable Reason for Visit * Reason Onset Date Comments Med Refill 07/18/2024 Encounter Details Date Type Department Care Team (Late st Contact Info) Description 07/18/2024 Refill [facility] [address] [facility] 110 [place] [phone] Dipti Wolf PA [address] [facility] [address] [place], [place] [id number] Dementia with behavioral disturbance (CMS/HCC) Social History Tobacco Use Types Packs/Day Years Used Date Smoking Tobacco: Never Smokeless Tobacco: Never Alcohol Use Standard Drinks/Week Comments Never 0 (1 standard drink = 0.6 oz pur e alcohol) B1300 Health Literacy Answer Date Recor ded How often do you need to hav e someone help you when you read instructions, pamphlets, or other written material from your doctor or pharmacy? Sometimes 06/01/2024 Humiliation, Afraid, Rape, and Kick questionnair e Answer Date Recorded Within the last year, have y ou been afraid of your partner or ex-partner? No 06/01/2024 Within the last year, have y ou been humiliated or emotionally abused in other ways by your partner or ex-partner? No Within the last year, have y ou been kicked, hit, slapped, or otherwise physically hurt by your partner or ex-partner? No 06/01/2024 Within the last year, have y ou been raped or forced to have any kind of sexual activity by your partner or ex-partner? No 06/01/2024 Social Connection and Isolat ion Panel [NHANES] Answer Date Recorded In a typical week, how many times do you talk on the phone with family, friends, or neighbors? More than three times a week 06/01/2024 How often do you get togethe r with friends or relatives? Twice a week 06/01/2024 How often do you attend chur ch or latter-day services? Never 06/01/2024 Do you belong to any clubs o r organizations such as methodist groups, unions, fraternal or athletic groups, or school groups? No 06/01/2024 How often do you attend meet ings of the clubs or organizations you belong to? Never 06/01/2024 Are you , , di vorced, , never , or living with a partner? 06/01/2024 AUDIT-C Answer Date Recorded Q1: How often do you have a drink containing alcohol? Never 06/01/2024 Q2: How many drinks containi ng alcohol do you have on a typical day when you are drinking? Patient does not drink Q3: How often do you have si x or more drinks on one occasion? Never 06/01/2024 Overall Financial Resource Strain (CARDIA) Answe r Date Recorded How hard is it for you to pa y for the very basics like food, housing, medical care, and heating? Not very hard 06/01/2024 PHQ-2 Answer Date Recorded Patient Health Questionnaire-2 Score 0 07/07/2024 [facility] - Occupational Stress Questionnaire Answer Date Recorded Do you feel stress - tense, restless, nervous, or anxious, or unable to sleep at night because your mind is troubled all the time - these days? Rather much 06/01/2024 Exercise Vital Sign Answer Date Recorde d On average, how many days pe r week do you engage in moderate to strenuous exercise (like a brisk walk)? 0 days 06/01/2024 On average, how many minutes do you engage in exercise at this level? 0 min 06/01/2024 Hunger Vital Sign Answer Date Recorded Within the past 12 months, y ou worried that your food would run out before you got the money to buy more. Never true 06/02/19 25 Within the past 12 months, t he food you bought just didn't last and you didn't have money to get more. Never true 06/01/2024 PRAPARE - Transportation Answer Date Re corded In the past 12 months, has l ack of transportation kept you from medical appointments or from getting medications? No 05/17 In the past 12 months, has l ack of transportation kept you from meetings, work, or from getting things needed for daily living? No 06/01/2024 Housing Stability Vital Sign Answer Ryan e Recorded In the last 12 months, was t here a time when you were not able to pay the mortgage or rent on time? No 06/01/2024 In the past 12 months, how m any times have you moved where you were living? 0 06/01/2024 At any time in the past [address] [facility], were you homeless or living in a [facility] (including now)? No 06/01/2024 Comments Unknown Sex and Gender Information Value Date Recorded Sex Assigned at Not on file Legal Sex Female 7:05 PM EDT Gender Identity Not on file Sexual Orientation Not on file documented as of this encounter Miscellaneous Notes * Telephone Encounter - GREGORIO BLOOD - 07/18/2024 8:47 AM EDT Daughter called and medication does changed due to cost. .25mg table would cost over $500, but the .5mg would only cost $300 and she will just cut them in half. documented in this encounter Plan of Treatment Upcoming Encounters Date Type Department Care Team (Late st Contact Info) Description 08/11/2024 10:00 AM EDT Office Visit [facility] [address] [place] [address] Dipti Wolf, PA [address] [place] [address] 08/31/2024 9:30 AM EDT Office Visit [facility] [address] [place] [address] Dipti Wolf PA [address] [place] [address] 11/30/2024 10:00 AM EDT Office Visit [facility] [address] [place] [phone] Teri Jo MD [address] [place] [address] documented as of this encounter Visit Diagnoses Diagnosis Dementia with behavioral disturbance (CMS/HCC) documented in this encounter Additional Health Concerns Assessment Noted Time PHQ-9 Depression Total Score: 13 04/2 025 9:00 AM EDT documented as of this encounter Care Teams Care Advocate Relationship Specialty Start Date End Date Ole Yang MD [address] [facility] [address] [place] [address] PCP - ACO Reach 07/10/22 Ole Yang MD [address] [facility] [address] [place] [address] PCP - General Internal Medicine 07/28/22 Edna Alcantara LPN 05/06/24 documented as of this encounter
--- OUTSIDE RECORDS SUMMARY | 2024-07-22 06:09 | XMS_ITS | Encounter Summary ---
Author Organization [facility] Address [address] [place] [address] Care Team Providers Care Insight Director Name Role Phone Ole Yang MD Unavailable [phone] Ole Yang MD Primary Care Provider [phone] ThursdayBea LPN Unavailable [phone] Debora Saenz RN Unavailable [phone] Edna Alcantara LPN Unavailable Unavailable Encounter Details Date Type Department Care Team (Late st Contact Info) Description 02/17/2023 Orders Only [facility] [address] [place] [address] A, Unknown Practice [address] [place], [place] [id number] Social History Tobacco Use Types Packs/Day Years [...] CI FM [address] [place] [address] Dipti Wolf PA [address] [place] [address] 08/31/2024 9:30 AM EDT Office Visit [facility] [address] [place] [address] Dipti Wolf PA [address] [place] [address] 11/30/2024 10:00 AM EDT Office Visit [facility] [address] [place] [phone] Teri Jo MD [address] [place] [address] documented as of this encounter Procedures Procedure Name Priority Date/Time Associated Diagnosis Comments VASC US LOWER EXTREMITY VENOUS DUPLEX LEFT Routine 02/14/2023 10:22 AM EST documented in this encounter Results * Vascular US lower extremity venous duplex left (02/14/2023 10:22 AM EST) Anatomical Region Laterality Modality Lower Extremities Ultrasound us Unknown Practice A IMG US PROCEDURES Final Resul t documented in this encounter Visit Diagnoses Not on filedocumented in this encounter Care Teams Insight Director Relationship Specialty Start Date End Date Ole Yang MD [address] [facility] [address] [place] [address] PCP - ACO Reach 07/10/22 Ole Yang MD [address] [facility] [address] [place] [address] PCP - General Internal Medicine 07/28/22Thursday, JUAN Figueredo [address] [place] [address] Licensed Practical Nurse Family Medicine 10/27/23 03/25/24 Debora Saenz, RN Licensed Practical Nurse Family Medicine 03/25/24 05/06/24 Edna Alcantara LPN 05/06/24 documented as of this encounter
--- OUTSIDE RECORDS SUMMARY | 2024-07-22 06:09 | XMS_ITS | Encounter Summary ---
Author Organization [facility] Address [address] [place] [address] Care Team Providers Care Teacher [employer] Name Role Phone Ole Yang MD Unavailable [phone] Ole Yang MD Primary Care Provider ThursdayBea LPN Unavailable [phone] Debora Saenz RN Unavailable Edna Alcantara SKILLS INSTRUCTOR Unavailable Unavailable Encounter Details Date Type Department Care Team (Late Contact Info) Description 12/17/2022 Abstract [facility] [address] [facility] 110 [place] [address] Ole Yang MD [address] [facility] 110 [place], [place] [id number] Social History Tobacco Use Types Packs/Day Years [...] [address] [place] [address] Dipti Wolf PA [address] [place] [address] 08/31/2024 9:30 AM EDT Office Visit [facility] [address] [place] [address] Dipti Wolf PA [address] [place] [address] 11/30/2024 10:00 AM EDT Office Visit [facility] [address] [place] [address] Teri Jo MD [address] [place] [address] documented as of this encounter Visit Diagnoses Not on filedocumented in this encounter Care Teams Teacher [employer] Relationship Specialty Start Date End Date Ole Yang MD [address] [place] [address] PCP - ACO Reach 07/10/22 Ole Yang MD [address] [place] [address] PCP - General Internal Medicine 07/28/22ThursdayBea LPN [address] [place] [address] Licensed Practical Nurse Family Medicine 10/27/23 03/25/24 Debora Saenz, RN Licensed Practical Nurse Family Medicine 03/25/24 05/06/24 Edna Alcantara LPN 05/06/24 documented as of this encounter
--- OUTSIDE RECORDS SUMMARY | 2024-07-22 06:09 | XMS_ITS | Clinical Summary ---
Author Organization [facility] Healthcare Address [address] [place] [place] [address] Care Team Providers Care Assistant Chief Train Dispatcher Name Role Phone Ole Yang MD Unavailable [phone] Ole Yang MD Primary Care Provider [phone] Edna Alcantara LPN Unavailable Unavailable Allergies No known active allergies Medications aspirin 81 MG EC tablet 1 (one) time each day at the same time. Active Calcium Carb-Cholecalcif jayme 600-200 MG-UNIT tablet Take 2 tablets by mouth 1 (one) time each day at the same time Active Multiple Vitamins-Mineral s (Multi For Her 50+) tablet 1 (one) time each day at the same time. Active bumetanide (Bumex) 1 MG tablet Take 1 mg by mouth Daily PRN Active albuterol HFA 90 mcg/act inhalerIndicatio ns:Pulmonary emphysema, unspecified emphysema type (CMS/HCC) Inhale 2 puffs every 4 (four) hours if needed for wheezing 18 g 3 4 Active cholecalciferol (Vitamin D-3) 50 MCG (1999) capsule Take 2,000 Units by mouth Daily Active apixaban (Eliquis) 5 MG tabletIndication s:Paroxysmal atrial fibrillation (CMS/HCC) Take 1 tablet (5 mg) by mouth in the morning and 1 tablet (5 mg) before bedtime. 200 tablet 3 5 Active atorvastatin (Lipitor) 80 MG tabletIndication s:Atherosclerosi s of [place] coronary artery of [place] heart without angina pectoris (CMS/HCC) Take 1 tablet (80 mg) by mouth Daily 100 tablet 3 5 Active PARoxetine (Paxil) 20 MG tabletIndication s:Anxiety Take 1 tablet (20 mg) by mouth in the morning. 100 tablet 3 5 Active metoprolol succinate XL (Toprol-XL) 50 MG 24 hr tabletIndication s:Paroxysmal atrial fibrillation (CMS/HCC) Take 1 tablet (50 mg) by mouth Daily 100 tablet 3 5 Active lisinopril 5 MG tabletIndication s:Primary hypertension (CMS/HCC) Take 0.5 tablets (2.5 mg) by mouth in the morning. 100 tablet 1 5 Active spironolactone (Aldactone) 25 MG tabletIndication s:Chronic systolic heart failure (CMS/HCC) Take 1 tablet (25 mg) by mouth Daily 90 tablet 3 5 Active Budeson-Glycopyr rol-Formoterol (Breztri Aerosphere) 160-9-4.8 MCG/ACT aerosolIndicatio ns:Pulmonary emphysema, unspecified emphysema type (CMS/HCC) Inhale 2 puffs in the morning and 2 puffs before bedtime. 10.7 g 3 5 Active methIMAzole (Tapazole) 10 MG tabletIndication s:Hyperthyroidis m (CMS/HCC) TAKE ONE-HALF (1/2) TABLET ON THURSDAY, THURSDAY, THURSDAY AND THURSDAY 26 tablet 3 5 Active Brexpiprazole (Rexulti) 0.25 MG tabletIndication s:Dementia with behavioral disturbance (CMS/HCC) Take 0.25-0.5 mg by mouth Daily Take 0.25 daily for two weeks then 0.5 mg daily. 60 tablet 2 5 Active LORazepam (Ativan) 0.5 MG tabletIndication s:Anxiety Take 1 tablet (0.5 mg) by mouth as needed at bedtime for anxiety 5 Active Brexpiprazole (Rexulti) 0.5 MG tabletIndication s:Dementia with behavioral disturbance (CMS/HCC) Take 0.25 mg by mouth Daily 60 tablet 3 5 Active LORazepam (Ativan) 0.5 MG tabletIndication s:Anxiety Take 1 tablet (0.5 mg) by mouth every 6 (six) hours if needed for anxiety 90 tablet 5 07/08/19 25 Discontinu ed(Reorder ) Active Problems Problem Noted Date Diagnosed Date Trouble in sleeping 07/07/2024 Supplemental oxygen dependent 02/25/2024 Chronic kidney disease, stage 3b ([facility]) 5 Hypoxia 08/26/2023 Dyspnea on exertion 08/07/2023 Cardiomyopathy, unspecified 08/07/2023 Memory changes 05/27/2023 Current use of [facility]iary anticoagulation 023 Age-related osteoporosis wit hout current pathological fracture 07/28/2022 Anxiety 07/28/2022 Arthritis of right shoulder region 07/28/2022 Chronic atrial fibrillation, unspecified 023 Chronic combined systolic (c ongestive) and diastolic (congestive) heart failure 07/28/2022 Chronic obstructive pulmonary disease, unspecifi ed 07/28/2022 Chronic systolic dysfunction of left ventricle 0 07/28/2022 Diplopia 07/28/2022 Elevated liver enzymes 07/28/2022 Frequent falls 07/28/2022 Hyperthyroidism 07/28/2022 ICD (implantable cardioverter-defibrillator) in place 07/28/2022 Impaired fasting glucose 07/28/2022 Joint derangement of shoulder region 07/28/2022 Mild episode of recurrent major depressive disor broderick ([facility]) 07/28/2022 Non-rheumatic mitral regurgitation 07/28/2022 Overweight (BMI 25.0-29.9) 07/28/2022 Primary osteoarthritis 07/28/2022 Primary ovarian failure 07/28/2022 Rotator cuff syndrome of right shoulder 07/29/19 Status post biventricular cardiac pacemaker inse rtion 11/28/2020 Panlobular emphysema 05/17/2020 Overview (08/26/2023): Last Assessment & Plan: If cardiac studies are without any acute concerns she may need to F/U with pulmonary for evaluation of CLAIRE History of stroke without residual deficits 09/2020 Mild intermittent asthma 09/12/2016 Hypertensive disorder 09/24/2015 Coronary artery disease invo lving [place] coronary artery of [place] heart without angina pectoris 09/24/2015 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 09/24/2015 Resolved Problems Problem Noted Date Diagnosed Date Resolved Date Abnormal results of pulmonar y function studies 07/28/2022 07/30/2022 Coronary arteriosclerosis in [place] artery 07/28/2022 05/27/2023 Cardiac pacemaker in situ 11/21/2020 Tear of right rotator cuff 09/12/2016 0 06/02/2024 Atherosclerosis of coronary artery without angina pectoris 08/05/2016 02/25/2024 Systolic heart failure 08/05/201606/02 Inguinal pain 10/04/2015 05/27/2023 Cerebrovascular accident 09/24/201511/2023 Hematoma of groin 09/24/2015 05/27/2023 Encounters Date Type Department Care Team Description 07/18/2024 Refill [facility] [address] [place] [address] Dipti Wolf PA Dementia with behavioral disturbance (CMS/HCC) 07/15/2024 Abstract [facility] [address] [place] [address] Ole Yang MD 07/07/2024 10:00 AM EDT Office Visit [facility] [address] [place] [address] Dipti Wolf PA Dementia with behavioral disturbance (CMS/HCC) (Primary Dx); Anxiety; Memory changes; Trouble in sleeping 07/07/2024 Bamboo flowsheet [facility] [address] [place] [address] Dipti Wolf PA 07/07/2024 Travel 06/27/2024 Patient Outreach [facility] [address] [place] [address] Edna Alcantara LPN 06/09/2024 Patient Outreach [facility] [address] [place] [address] Edna Alcantara LPN 06/08/2024 Patient Outreach [facility] [address] [place] [address] Alcantara EdnaJUAN [place] 06/08/2024 Telephone [facility] [address] [place] [address] Ole Yang MD 06/07/2024 Telephone [facility] [address] [place] [address] Dipti Wolf PA 06/07/2024 Refill [facility] [address] [place] [address] Ole Yang MD Hyperthyroidism ([facility]/HCC) 06/03/2024 Abstract [facility] [address] [place] [address] Ole Yang MD 06/02/2024 9:30 AM EDT Office Visit [facility] [address] [place] [address] Dipti Wolf, PA Medicare annual wellness visit, subsequent (Primary Dx); ACP (advance care planning); Estrogen deficiency; Pulmonary emphysema, unspecified emphysema type ([facility]/HCC); Dyspnea on exertion; Hypoxia; Mild intermittent asthma without complication ([facility]); Panlobular emphysema ([facility]); Supplemental oxygen dependent; Benign hypertensive heart disease with heart failure ([facility]); Chronic atrial fibrillation, unspecified ([facility]); Chronic combined systolic (congestive) and diastolic (congestive) heart failure; Chronic systolic dysfunction of left ventricle; Coronary artery disease involving [place] coronary artery of [place] heart without angina pectoris ([facility]); Primary hypertension ([facility]); ICD (implantable cardioverter-defibrill ator) in place; Non-rheumatic mitral regurgitation; Status post biventricular cardiac pacemaker insertion; Chronic kidney disease, stage 3b (HCC) ([facility]); Age-related osteoporosis without current pathological fracture ([facility]/HCC); Arthritis of right shoulder region; Joint derangement of shoulder region; Primary osteoarthritis involving multiple joints; Rotator cuff syndrome of right shoulder; Hyperthyroidism (CMS/HCC); Impaired fasting glucose; Overweight (BMI 25.0-29.9); Primary ovarian failure; Anxiety; Current use of watermelon inspector anticoagulation; Diplopia; Elevated liver enzymes; Frequent falls; History of stroke without residual deficits; Memory changes; 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); COPD exacerbation (CMS/HCC) 06/02/2024 Travel 06/01/2024 10:00 AM EDT Office Visit [facility] [address] [place] [address] Teri Jo MD Hyperthyroidism (CMS/HCC) (Primary Dx); Multinodular goiter (CMS/HCC); Longstanding persistent atrial fibrillation (CMS/HCC) 06/01/2024 Travel 06/01/2024 Bamboo flowsheet [facility] [address] [place] [address] Teri Jo MD 05/30/2024 Patient Outreach [facility] [address] [place] [address] Edna Alcantara LPN 05/23/2024 Clinisync Result Encounter [facility] External Department Unsolicited Provider, Generic External Data 05/12/2024 Refill [facility] [address] [place] [address] Annalise Paniagua LPN Anxiety from Last 3 Months Immunizations Immunization Administration Dates Next Due ABRYSVO - Respiratory syncyt ial virus (RSV), vaccine, bivalent, protein subunit RSV prefusion F, diluent reconstituted, 0.5 mL, PF 12/10/2022 Influenza, High Dose Seasona l, Preservative Free 12/10/2021,01/17/2021 Influenza, High-dose Seasona l, Quadrivalent, Preservative Free 11/26/2023,12/02/2017,12/11/2016 Influenza, Seasonal, Quadriv alent, Adjuvanted 11/26/2022 Influenza, trivalent, adjuvanted 01/10/2020,11/16 Moderna SARS-CoV-2 50mcg/0.5mL Booster Pneumococcal Conjugate PCV 13 06/25/2018 Pneumococcal Polysaccharide PPSV23 02/23/2019, SARS-COV-2 (COVID-19) vaccin e, mRNA, spike protein, LNP, PF, robert-sucrose, 30 mcg/0.3 mL 12/10/2023,01/01/2023 Zoster, Recombinant 01/01/2023,04/16/2022 Family History Medical History Relation Name Comments Cancer Father Hypertension Father Cancer Mother Hypertension Mother Mental illness Mother Relation Name Status Comments Brother 1 alive, 1 dec Father Mother Sister x 3 Alive Son x 1 Alive Social History Tobacco Use Types Packs/Day Years Used Date Smoking Tobacco: Never Smokeless Tobacco: Never Tobacco Cessation:Counseling Given: Not Answered Alcohol Use Standard Drinks/Week Comments Never 0 [...] 06/01/2024 How often do you attend chur or lutheran services? Never 06/01/2024 Do you belong to any clubs o r organizations such as yazdanism groups, unions, fraternal or athletic groups, or [...] Recorded Patient Health Questionnaire-2 Score 0 07/07/2024 [facility] - Occupational Stress Questionnaire Answer Date Recorded [...] any time in the past 12 [facility], were you homeless or living in a senior living (including now)? No 06/01/2024 Comments Unknown Sex and Gender Information Value Date Recorded Sex Assigned at Not on file Legal Sex Female 7:05 PM EDT Gender Identity Not on file Sexual Orientation Not on file Last Filed Vital Signs Vital Sign Reading Time Taken Comments Blood Pressure 114/66 07/07/2024 10:15 AM EDT Pulse 78 07/07/2024 10:15 AM EDT Temperature 37.3 C (99.2 F) 06/02/2024 9:47 AM EDT Respiratory Rate 16 07/07/2024 10:15 AM EDT Oxygen Saturation 98% 07/07/2024 10:15 AM EDT Inhaled Oxygen Concentration - - Weight 80.4 kg (177 lb 3.2 oz) 07/07/2024 10:15 AM EDT Height 167.6 cm (5' 6 ) 07/07/2024 10:15 AM EDT Body Mass Index 28.6 07/07/2024 10:15 AM EDT Plan of Treatment Upcoming Encounters Date Type Department Care Team (Late st Contact Info) Description 08/11/2024 10:00 AM EDT Office Visit [facility] [address] [facility] [address] [place] [phone] Dipti Wolf PA [address] [facility] [address] [place] [address] 08/31/2024 9:30 AM EDT Office Visit [facility] [address] [facility] [address] [place] [address] Dipti Wolf, PA [address] [facility] [address] [place] [address] 11/30/2024 10:00 AM EDT Office Visit [facility] [address] [place] [address] Teri Jo MD [address] [place] [address] Health Maintenance Due Date Last Done Comments Pneumococcal Vaccine: 65+ Years Completed , 06/25/2018, 08/17/2007 Influenza Vaccine Completed 11/26/2023, , 12/10/2021, Additional history exists Procedures Procedure Name Priority Date/Time Associated Diagnosis Comments VITAMIN D 25 HYDROXY TOTAL Routine 06/06/2024 9:34 AM EDT Coronary artery disease involving [place] coronary artery of [place] heart without angina pectoris (CMS/HCC) Age-related osteoporosis without current pathological fracture (CMS/HCC) LIPID PANEL Routine 06/06/2024 9:34 AM EDT Coronary artery disease involving [place] coronary artery of [place] heart without angina pectoris (CMS/HCC) BASIC METABOLIC PANEL Routine 06/06/2024 9:34 AM EDT Benign hypertensive heart disease with heart failure (CMS/HCC) Impaired fasting glucose HEMOGLOBIN A1C Routine 06/06/2024 9:34 AM EDT Impaired fasting glucose CBC (INCLUDES DIFF/PLT) Routine 06/06/2024 9:34 AM EDT Benign hypertensive heart disease with heart failure (CMS/HCC) Coronary artery disease involving [place] coronary artery of [place] heart without angina pectoris (CMS/HCC) TSH Routine 05/23/2024 10:14 AM EDT Hyperthyroidism (CMS/HCC) T4, FREE Routine 05/23/2024 10:14 AM EDT Hyperthyroidism (CMS/HCC) T3, FREE Routine 05/23/2024 10:14 AM EDT Hyperthyroidism (CMS/HCC) ALL THYROXINE (T4) FREE Routine 05/23/2024 9:02 AM EDT ALL THYROID STIM HORMONE Routine 05/23/2024 9:02 AM EDT ALL T3 FREE Routine 05/23/2024 9:02 AM EDT from Last 3 Months Results * Vitamin D 25 hydroxy Total (06/06/2024 9:34 AM EDT) VITAMIN D,25-OH,TOTAL,IA 49 30 - 100 ng/mL [facility] Comment: Vitamin D Status 25-OH Vitamin D: Deficiency: <20 ng/mL Insufficiency: 20 - 29 ng/mL Optimal: > or = 30 ng/mL For 25-OH Vitamin D testing on patients on D2-supplementation and patients for whom quantitation of D2 and D3 fractions is required, the QuestAssureD(TM) 25-OH VIT D, (D2,D3), LC/MS/MS is recommended: order code [id number] (patients >2yrs). See Note 1 Note 1 For additional information, please refer to http://education.Copperfasten/faq/BJR216 (This link is being provided for informational/ educational purposes only.) Blood Venous blood specimen / Unknown 06/06/2024 9:34 AM EDT 06/06/2024 9:35 AM EDT Narrative [facility] - 06/07/2024 8:41 AM EDT FASTING:YES FASTING: YES Resulting Agency Comment Performing Organization Information Site ID: QPT Name: [employer] [facility] Address: [address] [place] [address], [address] [place] [phone] Director: Robbie Garnica MD us Dipti VEGA LAB BLOOD ORDERABLES Final Res ult [facility] * CBC and differential (06/06/2024 9:34 AM EDT) WHITE BLOOD CELL COUNT 6.5 3.8 - 10.8 Thousand/u L [facility] RED BLOOD CELL COUNT 4.15 3.80 - 5.10 Million/uL [facility] HEMOGLOBIN 12.6 11.7 - 15.5 g/dL [facility] HEMATOCRIT 38.9 35.0 - 45.0 % [facility] MCV 93.7 80.0 - 100.0 fL [facility] MCH 30.4 27.0 - 33.0 pg [facility] MCHC 32.4 32.0 - 36.0 g/dL [facility] Comment: For adults, a slight decrease in the calculated MCHC value (in the range of 30 to 32 g/dL) is most likely not clinically significant; however, it should be interpreted with caution in correlation with other red cell parameters and the patient's clinical condition. RDW 12.5 11.0 - 15.0 % [facility] PLATELET COUNT 186 140 - 400 Thousand/u L [facility] MPV 11.4 7.5 - 12.5 fL [facility] ABSOLUTE NEUTROPHILS 4,693 1,500 - 7,800 cells/uL [facility] ABSOLUTE LYMPHOCYTES 1,053 850 - 3,900 cells/uL [facility] ABSOLUTE MONOCYTES 475 200 - 950 cells/uL [facility] ABSOLUTE EOSINOPHILS 241 15 - 500 cells/uL [facility] ABSOLUTE BASOPHILS 39 0 - 200 cells/uL [facility] NEUTROPHILS 72.2 % [facility] LYMPHOCYTES 16.2 % [facility] MONOCYTES 7.3 % [facility] EOSINOPHILS 3.7 % [facility] BASOPHILS 0.6 % [facility] Blood Venous blood specimen / Unknown 06/06/2024 9:34 AM EDT 06/06/2024 9:35 AM EDT Narrative [facility] - 06/07/2024 8:41 AM EDT FASTING:YES FASTING: YES Resulting Agency Comment Performing Organization Information Site ID: QPT Name: [employer] [facility] Address: [address] [place] [address], [address] [place] [phone] Director: Robbie Garnica MD us Dipti VEGA LAB BLOOD ORDERABLES Final Res ult [facility] * (ABNORMAL) Hemoglobin A1c (06/06/2024 9:34 AM EDT) Hemoglobin A1C 5.7(H) <5.7 % [facility] Comment: For someone without known diabetes, a hemoglobin A1c value between 5.7% and 6.4% is consistent with prediabetes and should be confirmed with a follow-up test. For someone with known diabetes, a value <7% indicates that their diabetes is well controlled. A1c targets should be individualized based on duration of diabetes, age, comorbid conditions, and other considerations. This assay result is consistent with an increased risk of diabetes. Currently, no consensus exists regarding use of hemoglobin A1c for diagnosis of diabetes for children. Blood Venous blood specimen / Unknown 06/06/2024 9:34 AM EDT 06/06/2024 9:35 AM EDT Narrative [facility] - 06/07/2024 8:41 AM EDT FASTING:YES FASTING: YES Resulting Agency Comment Performing Organization Information Site ID: QPT Name: [employer] [facility] Address: [address] [place] [address], [address] [place] [address] Director: Robbie Garnica MD Dipti VEGA LAB BLOOD ORDERABLES Final Res ult [facility] * Lipid panel (06/06/2024 9:34 AM EDT) [facility] Signature CHOLESTEROL, TOTAL 118 <200 mg/dL [facility] HDL CHOLESTEROL 54 > OR = 50 mg/dL [facility] TRIGLYCERIDES 66 <150 mg/dL [facility] LDL-CHOLESTEROL 49 mg/dL (calc) [facility] Comment: Reference range: <100 Desirable range <100 mg/dL for primary prevention; <70 mg/dL for patients with CHD or diabetic patients with > or = 2 CHD risk factors. LDL-C is now calculated using the Damion-Rebeka calculation, which is a validated novel method providing better accuracy than the Friedewald equation in the estimation of LDL-C. Damion SS et al. CONSUELO. 2013;310(19): 1776-3185 (http://education.36Kr.Citysearch/faq/IVE248) CHOL/HDLC RATIO 2.2 <5.0 (calc) [facility] NON HDL CHOLESTEROL 64 <130 mg/dL (calc) [facility] Comment: For patients with diabetes plus 1 major ASCVD risk factor, treating to a non-HDL-C goal of <100 mg/dL (LDL-C of <70 mg/dL) is considered a therapeutic option. Blood Venous blood specimen / Unknown 06/06/2024 9:34 AM EDT 06/06/2024 9:35 AM EDT Narrative [facility] - 06/07/2024 8:41 AM EDT FASTING:YES FASTING: YES Resulting Agency Comment Performing Organization Information Site ID: QPT Name: [employer] [facility] Address: [address] [place] [address], [address] [place] [phone] Director: Robbie Garnica MD us Dipti VEGA LAB BLOOD ORDERABLES Final Res ult Performing Organization Address [facility] de Phone Number [facility] * (ABNORMAL) Basic metabolic panel (06/06/2024 9:34 AM EDT) Glucose 96 65 - 99 mg/dL [facility] Comment: Fasting reference interval BUN 33(H) 7 - 25 mg/dL [facility] Creatinine 1.15(H) 0.60 - 0.95 mg/dL [facility] EGFR 48(L) > OR = 60 mL/min/1.7 3m2 [facility] BUN/CREATININE RATIO 29(H) 6 - 22 (calc) [facility] Sodium 142 135 - 146 mmol/L [facility] Potassium, Bld 5.1 3.5 - 5.3 mmol/L [facility] Chloride 108 98 - 110 mmol/L [facility] Carbon Dioxide 26 20 - 32 mmol/L [facility] Calcium 8.9 8.6 - 10.4 mg/dL [facility] Blood Venous blood specimen / Unknown 06/06/2024 9:34 AM EDT 06/06/2024 9:35 AM EDT Narrative [facility] - 06/07/2024 8:41 AM EDT FASTING:YES FASTING: YES Resulting Agency Comment Performing Organization Information Site ID: QPT Name: [facility] Address: [facility] [address], [address] [place] [phone] Director: Robbie Garnica MD Dipti VEGA LAB BLOOD ORDERABLES Final Res ult Performing Organization Address [facility] de Phone Number [facility] * T3, free (05/23/2024 10:14 AM EDT) Blood Venous blood specimen / Unknown us Teri Jo MD LAB BLOOD ORDERABLES Final Re sult Performing Organization Address [facility] de Phone Number [facility] * TSH (05/23/2024 10:14 AM EDT) Blood Venous blood specimen / Unknown Teri Jo MD LAB BLOOD ORDERABLES Final Re sult Performing Organization Address [facility] de Phone Number [facility] * T4, free (05/23/2024 10:14 AM EDT) Blood Venous blood specimen / Unknown Teri Jo MD LAB BLOOD ORDERABLES Final Re sult Performing Organization Address [facility] de Phone Number [facility] * ALL THYROXINE (T4) FREE (05/23/2024 9:02 AM EDT) FREE T4 0.98 0.76 - 1.46 ng/dL [facility] 05/23/2024 9:02 AM EDT 05/23/2024 9:04 AM EDT Narrative [facility] - 05/23/2024 9:44 AM EDT Generic External Data Provider [facility] F inal Result Performing Organization Address [facility] de Phone Number [facility] TB * (ABNORMAL) ALL THYROID STIM HORMONE (05/23/2024 9:02 AM EDT) THYROID STIMULATING HORMONE 4.740(H) 0.358 - 3.740 uIU/mL [facility] 05/23/2024 9:02 AM EDT 05/23/2024 9:04 AM EDT Narrative [facility] - 05/23/2024 9:43 AM EDT Generic External Data Provider [facility] F inal Result Performing Organization Address [facility] de Phone Number [facility] TB * ALL T3 FREE (05/23/2024 9:02 AM EDT) FREE T3 2.72 2.18 - 3.98 pg/mL [facility] 05/23/2024 9:02 AM EDT 05/23/2024 9:04 AM EDT Narrative [facility] - 05/23/2024 9:43 AM EDT us Generic External Data Provider [facility] F inal Result [facility] from Last 3 Months Insurance MEDICARE [facility] MEDICARE SUPPLEMENT Advance Directives Documents on File Type Date Recorded Patient Supervisor Public Health Nursing Expl anation Power of Button Spindler 02/25/2024 12:18 PM Healt hcare Power of Button Spindler Care Teams Assistant Chief Train Dispatcher Relationship Specialty Start Date End Date Ole Yang MD [address] [place] [address] PCP - ACO Reach 07/10/22 Ole Yang MD [address] [place] [address] PCP - General Internal Medicine 07/28/22 Edna Alcantara LPN 05/06/24
--- OUTSIDE RECORDS SUMMARY | 2024-07-22 06:09 | XMS_ITS | Encounter Summary ---
Author Organization [facility] Address [address] [place] [address] Care Team Providers Care Extension Service Supervisor Name Role Phone Ole Yang MD Unavailable [phone] Ole Yang MD Primary Care Provider ThursdayBea LPN Unavailable [phone] Debora Saenz RN Unavailable Edna Alcantara NURSE AIDE EVALUATOR Unavailable Unavailable Encounter Details Date Type Department Care Team (Late st Contact Info) Description 12/16/2022 Abstract [facility] [address] [facility] 110 [place] [address] Ole Yang MD 112 [facility] 110 [place], [place] [id number] Social History Tobacco Use Types Packs/Day Years [...] Office Visit [facility] [address] [facility] 110 [place] [address] Dipti Wolf, PA [address] [place] [address] [place] [address] 08/31/2024 9:30 AM EDT Office Visit [facility] [address] [place] [address] [place] [address] Dipti Wolf PA [address] [place] [address] [place] [address] 11/30/2024 10:00 AM EDT Office Visit [facility] [address] [place] [address] Teri Jo MD [address] [place] [address] documented as of this encounter Visit Diagnoses Not on filedocumented in this encounter Care Teams Extension Service Supervisor Relationship Specialty Start Date End Date Ole Yang MD [address] [facility] 110 [place] [address] PCP - ACO Reach 07/10/22 Ole Yang MD [address] [place] [address] [place] [address] PCP - General Internal Medicine 07/28/22ThuKeonBea deleon LPN [address] [place] [address] Licensed Practical Nurse Family Medicine 10/27/23 03/25/24 Debora Saenz, RN Licensed Practical Nurse Family Medicine 03/25/24 05/06/24 Edna Alcantara LPN 05/06/24 documented as of this encounter
--- OUTSIDE RECORDS SUMMARY | 2024-07-22 06:09 | XMS_ITS ---
Author Organization [facility] Address [address] [place] [address] Care Team Providers Care Field Secretary Name Role Phone Ole Yang MD Unavailable [phone] Ole Yang MD Primary Care Provider [phone] Edna Alcantara LPN Unavailable Unavailable Chronic Care Management (CCM) Status:Enrolled (Active) Start date:10/27/2023 Enrollment date:10/27/2023 Enrollment reason:Referred by provider Overview 10/27/23, 9:18 AM - Beathursday, JUAN- Patient gives verbal consent to be enrolled in CCM Program and understands there could be a bill for this service if her insurance should change. Case Team Name Relationship Phone Edna Alcantara LPN(Responsible Staff) Continued Care and Services Coordination
--- OUTSIDE RECORDS SUMMARY | 2024-07-22 06:09 | XMS_ITS | Encounter Summary ---
Author Organization [facility] Address [address] [place] [address] Care Team Providers Care Aircraft Maintenance Instructor Name Role Phone Ole Yang MD Unavailable [phone] Ole Yang MD Primary Care Provider [phone] ThursdayBea LPN Unavailable [phone] Debora Saenz RN Unavailable Edna Alcantara ANGLE SHEARER Unavailable Unavailable Encounter Details Date Type Department Care Team (Late st Contact Info) Description 02/25/2023 Abstract [facility] [address] [facility] 110 [place] [address] Ole Yang MD [address] [facility] 110 [place], [place] [id number] Social History Tobacco Use Types Packs/Day Years [...] [address] [place] [address] [place] [address] Dipti Wolf PA [address] [place] [address] 08/31/2024 9:30 AM EDT Office Visit [facility] [address] [place] [address] [place] [address] Dipti Wolf PA [address] [place] [address] [place] [address] 11/30/2024 10:00 AM EDT Office Visit [facility] [address] [place] [address] Teri Jo MD [address] [place] [address] documented as of this encounter Visit Diagnoses Not on filedocumented in this encounter Care Teams Aircraft Maintenance Instructor Relationship Specialty Start Date End Date Ole Yang MD [address] [place] [address] PCP - ACO Reach 07/10/22 Ole Yang MD [address] [place] [address] [place] [address] PCP - General Internal Medicine 07/28/22ThursdayBea LPN [address] [place] [address] Licensed Practical Nurse Family Medicine 10/27/23 03/25/24 Debora Saenz, RN Licensed Practical Nurse Family Medicine 03/25/24 05/06/24 Edna Alcantara LPN 05/06/24 documented as of this encounter
--- OUTSIDE RECORDS SUMMARY | 2024-07-22 06:09 | XMS_ITS | Encounter Summary ---
Author Organization [facility] Address [address] [place] [address] Care Team Providers Care Podiatric Medicine Doctor Name Role Phone Ole Yang MD Unavailable [phone] Ole Yang MD Primary Care Provider [phone] ThursdayBea LPN Unavailable [phone] Debora Saenz RN Unavailable Edna Alcantara MANAGER MOBILE Unavailable Unavailable Encounter Details Date Type Department Care Team (Late st Contact Info) Description 09/12/2022 Orders Only [facility] [address] [place] [address] [place] [address] A, Unknown Practice [address] [place], [place] [address] Social History Tobacco Use Types Packs/Day Years [...] FM [address] [place] [address] [place] [address] Dipti Wolf PA [address] [place] [address] 08/31/2024 9:30 AM EDT Office Visit [facility] [address] [place] [address] [place] [address] Dipti Wolf PA [address] [place] [address] [place] [address] 11/30/2024 10:00 AM EDT Office Visit [facility] [address] [place] [address] Teir Jo MD [address] [place] [address] documented as of this encounter Procedures Procedure Name Priority Date/Time Associated Diagnosis Comments MRI ORBIT FACE NECK W/ + W/O CONTRAST Routine 09/11/2022 9:09 AM EDT documented in this encounter Results * MRI ORBIT FACE NECK W/ + W/O CONTRAST (09/11/2022 9:09 AM EDT) Anatomical Region Laterality Modality Radiographic Carrie ging us Unknown Practice A IMG XR PROCEDURES Final Resul t documented in this encounter Visit Diagnoses Not on filedocumented in this encounter Care Teams Podiatric Medicine Doctor Relationship Specialty Start Date End Date Ole Yang MD [address] [place] [address] PCP - ACO Reach 07/10/22 Ole Yang MD [address] [place] [address] [place] [address] PCP - General Internal Medicine 07/28/22ThursdayBea LPN [address] [place] [address] Licensed Practical Nurse Family Medicine 10/27/23 03/25/24 Debora Saenz, RN Licensed Practical Nurse Family Medicine 03/25/24 05/06/24 Edna Alcantara LPN 05/06/24 documented as of this encounter
--- OUTSIDE RECORDS SUMMARY | 2024-07-22 06:09 | XMS_ITS | Encounter Summary ---
Author Organization [facility] Address [address] [place] [address] Care Team Providers Care Cook Enchilada Name Role Phone Ole Yang MD Unavailable [phone] Ole Yang MD Primary Care Provider ThursdayBea LPN Unavailable [phone] Debora Saenz RN Unavailable Edna Alcantara PROPOSITION PLAYER Unavailable Unavailable Encounter Details Date Type Department Care Team (Late Contact Info) Description 12/18/2022 Abstract [facility] [address] [facility] 110 [place] [address] Ole Yang MD [address] [facility] 110 [place], [place] [id number] Social History Tobacco Use Types Packs/Day Years [...] [address] [place] [address] [place] [address] Dipti Wolf PA [address] [place] [address] 08/31/2024 9:30 AM EDT Office Visit [facility] [address] [place] [address] [place] [address] Dipti Wolf PA [address] [place] [address] 11/30/2024 10:00 AM EDT Office Visit [facility] [address] [place] [address] Teri Jo MD [address] [place] [address] documented as of this encounter Visit Diagnoses Not on filedocumented in this encounter Care Teams Cook Enchilada Relationship Specialty Start Date End Date Ole Yang MD [address] [place] [address] PCP - ACO Reach 07/10/22 Ole Yang MD [address] [place] [address] PCP - General Internal Medicine 07/28/22ThursdayBea LPN [address] [place] [address] Licensed Practical Nurse Family Medicine 10/27/23 03/25/24 Debora Saenz, RN Licensed Practical Nurse Family Medicine 03/25/24 05/06/24 Edna Alcantara LPN 05/06/24 documented as of this encounter
--- OUTSIDE RECORDS SUMMARY | 2024-07-22 06:09 | XMS_ITS | Encounter Summary ---
Author Organization [facility] Address [address] [place] [address] Care Team Providers Care Drawer Fitter Name Role Phone Ole Yang MD Unavailable [phone] Ole Yang MD Primary Care Provider [phone] Edna Alcantara LPN Unavailable Unavailable Encounter Details Date Type Department Care Team (Late st Contact Info) Description 07/15/2024 Abstract [facility] 112 [facility] 110 [place] [address] Ole Yang MD 112 [facility] 110 [place], [place] [address] Social History Tobacco Use Types Packs/Day Years [...] How often do you attend chur or congregation services? Never 06/01/2024 Do you belong to any clubs o r organizations such as gnosticism groups, unions, fraternal or athletic groups, or [...] Recorded Patient Health Questionnaire-2 Score 0 07/07/2024 [facility] of Occupat ional Health - Occupational Stress [...] any time in the past 12 m [facility], were you homeless or living in a jail (including now)? No 06/01/2024 Comments Unknown Sex [...] [address] [place] [address] [place] [address] Dipti Wolf PA [address] [place] [address] 08/31/2024 9:30 AM EDT Office Visit [facility] [address] [place] [address] [place] [address] Dipti Wolf, PA [address] [place] [address] 11/30/2024 10:00 AM EDT Office Visit [facility] [address] [place] [address] Teri Jo MD [address] [place] [address] documented as of this encounter Visit Diagnoses Not on filedocumented in this encounter Additional Health Concerns Assessment Noted Time PHQ-9 Depression Total Score: 13 06/02/ 025 9:00 AM EDT documented as of this encounter Care Teams Drawer Fitter Relationship Specialty Start Date End Date Ole Yang MD [address] [facility] 110 [place] [address] PCP - ACO Reach 07/10/22 Ole Yang MD [address] [facility] 110 [place] [address] PCP - General Internal Medicine 07/28/22 Edna Alcantara LPN 05/06/24 documented as of this encounter
--- OUTSIDE RECORDS SUMMARY | 2024-07-22 06:09 | XMS_ITS | Encounter Summary ---
Author Organization [facility] Address [address] [place] [address] Care Team Providers Care Production Cell Leader Name Role Phone Ole Yang MD Unavailable [phone] Ole Yang MD Primary Care Provider [phone] ThursdayBea LPN Unavailable [phone] Debora Saenz RN Unavailable Edna Alcantara ACCOUNT EXECUTIVE TRAINEE Unavailable Unavailable Encounter Details Date Type Department Care Team (Late st Contact Info) Description 09/22/2022 Abstract [facility] [address] [facility] 110 [place] [address] Ole Yang MD 112 [facility] 110 [place], [place] [id number] Social History Tobacco Use Types Packs/Day Years [...] Office Visit [facility] [address] [facility] 110 [place] [address] Dipti Wolf, PA [address] [place] [address] 08/31/2024 9:30 AM EDT Office Visit [facility] [address] [place] [address] [place] [address] Dipti Wolf PA [address] [place] [address] 11/30/2024 10:00 AM EDT Office Visit [facility] [address] [place] [address] Teri Jo MD [address] [place] [address] documented as of this encounter Visit Diagnoses Not on filedocumented in this encounter Care Teams Production Cell Leader Relationship Specialty Start Date End Date Ole Yang MD [address] [facility] 110 [place] [address] PCP - ACO Reach 07/10/22 Ole Yang MD [address] [place] [address] PCP - General Internal Medicine 07/28/22ThuKeonBea deleon LPN [address] [place] [address] Licensed Practical Nurse Family Medicine 10/27/23 03/25/24 Debora Saenz, RN Licensed Practical Nurse Family Medicine 03/25/24 05/06/24 Edna Alcantara LPN 05/06/24 documented as of this encounter
--- OUTSIDE RECORDS SUMMARY | 2024-07-22 06:09 | XMS_ITS | Encounter Summary ---
Author Organization [facility] Address [address] [place] [address] Care Team Providers Care Diabetes Education Coordinator Name Role Phone Ole Yang MD Unavailable [phone] Ole Yang MD Primary Care Provider [phone] ThursdayBea LPN Unavailable [phone] Debora Saenz RN Unavailable Edna Alcantara SOLAR PHOTOVOLTAIC SYSTEMS ENGINEER Unavailable Unavailable Encounter Details Date Type Department Care Team (Late Contact Info) Description 12/18/2022 Abstract [facility] [address] [facility] 110 [place] [address] Ole Yang MD [address] [facility] 110 [place], [place] [address] Social History Tobacco Use Types Packs/Day Years [...] [address] [place] [address] [place] [address] Dipti Wolf PA [address] [place] [address] 08/31/2024 9:30 AM EDT Office Visit [facility] [address] [place] [address] [place] [address] Dipti Wolf PA [address] [place] [address] 11/30/2024 10:00 AM EDT Office Visit [facility] [address] [place] [address] Teri Jo MD [address] [place] [address] documented as of this encounter Visit Diagnoses Not on filedocumented in this encounter Care Teams Diabetes Education Coordinator Relationship Specialty Start Date End Date Ole Yang MD [address] [place] [address] PCP - ACO Reach 07/10/22 Ole Yang MD [address] [place] [address] PCP - General Internal Medicine 07/28/22ThursdayBea LPN [address] [place] [address] Licensed Practical Nurse Family Medicine 10/27/23 03/25/24 Debora Saenz, RN Licensed Practical Nurse Family Medicine 03/25/24 05/06/24 Edna Alcantara LPN 05/06/24 documented as of this encounter
--- OUTSIDE RECORDS SUMMARY | 2024-07-22 06:09 | XMS_ITS | Encounter Summary ---
Author Organization [facility] Address [address] [place] [address] Care Team Providers Care Hi Teacher Name Role Phone Ole Yang MD Unavailable [phone] Ole Yang MD Primary Care Provider [phone] ThursdayBea LPN Unavailable [phone] Debora Saenz RN Unavailable [phone] Edna Alcantara COLLEGE OR UNIVERSITY BUSINESS MANAGER Unavailable Unavailable Encounter Details Date Type Department Care Team (Late st Contact Info) Description 10/03/2022 Abstract [facility] [address] [facility] 110 [place] [address] Ole Yang MD 112 [facility] 110 [place], [place] [address] Social History Tobacco Use Types Packs/Day Years [...] Office Visit [facility] [address] [facility] 110 [place] [address] Dipti Wolf, PA [address] [place] [address] 08/31/2024 9:30 AM EDT Office Visit [facility] [address] [place] [address] [place] [address] Dipti Wolf PA [address] [place] [address] 11/30/2024 10:00 AM EDT Office Visit [facility] [address] [place] [address] Teri Jo MD [address] [place] [address] documented as of this encounter Visit Diagnoses Not on filedocumented in this encounter Care Teams Hi Teacher Relationship Specialty Start Date End Date Ole Yang MD [address] [facility] 110 [place] [address] PCP - ACO Reach 07/10/22 Ole Yang MD [address] [place] [address] PCP - General Internal Medicine 07/28/22ThuKeonBea deleon LPN [address] [place] [address] Licensed Practical Nurse Family Medicine 10/27/23 03/25/24 Debora Saenz, RN Licensed Practical Nurse Family Medicine 03/25/24 05/06/24 Edna Alcantara LPN 05/06/24 documented as of this encounter
--- OUTSIDE RECORDS SUMMARY | 2024-07-22 06:09 | XMS_ITS | Encounter Summary ---
Author Organization [facility] Address [address] [place] [address] Care Team Providers Care Occ Therapy Asst Name Role Phone Ole Yang MD Unavailable [phone] Ole Yang MD Primary Care Provider [phone] Edna Alcantara LPN Unavailable Unavailable Encounter Details Date Type Department Care Team (Late st Contact Info) Description 06/27/2024 Patient Outreach [facility] [address] [place] [address] Edna Alcantara LPN Social History Tobacco Use Types Packs/Day Years [...] often do you attend chur ch or anglican services? Never 06/01/2024 Do you belong to any clubs o r organizations such as pentecostal groups, unions, fraternal or athletic groups, or [...] Recorded Patient Health Questionnaire-2 Score 0 07/07/2024 [facility] of Occupat ional Health - Occupational [...] any time in the past 12 m [facility], were you homeless or living in a intermediate (including now)? No 06/01/2024 Comments Unknown Sex and Gender Information Value Date Recorded Sex Assigned at Not on file Legal Sex Female 7:05 PM EDT Gender Identity Not on file Sexual Orientation Not on file documented as of this encounter Functional Status * Over the past 2 weeks, how often have you been bothered by any of the following problems? Question Answer Date of Assessment Author Little interest or pleasure in doing things Not at all 07/07/2024 9:50 AM EDT Aidee Garcia LP N Feeling down, depressed, or hopeless Not at all 07/07/2024 9:50 AM EDT Aidee Garcia LP N Patient Health Questionnaire -2 Score 0 07/07/2024 9:50 AM EDT Aidee Garcia LP N documented as of this encounter Progress Notes * Edna Alcantara LPN - 06/27/2024 1:39 PM EDT Called pts daughter Ashtyn back after receiving message to call. Pts daughter expressed tghat pt has been having lots of behavior changes * Katy Daivla LPN - 06/27/2024 1:39 PM EDT Pt had OV to address below on 07/07/24 documented in this encounter Plan of Treatment Upcoming Encounters Date Type Department Care Team (Late st Contact Info) Description 08/11/2024 10:00 AM EDT Office Visit [facility] [address] [place] [address] Dipti Wolf PA [address] [place] [address] 08/31/2024 9:30 AM EDT Office Visit [facility] [address] [address] [place] [address] Dipti Wolf PA [address] [place] [address] 11/30/2024 10:00 AM EDT Office Visit [facility] [address] [place] [id number] Teri Jo MD [address] [place] [address] documented as of this encounter Visit Diagnoses Diagnosis Memory changes- Primary Anxiety Anxiety state, unspecified documented in this encounter Additional Health Concerns Assessment Noted Time PHQ-9 Depression Total Score: 13 04/2 025 9:00 AM EDT documented as of this encounter Care Teams Occ Therapy Asst Relationship Specialty Start Date End Date Ole Yang MD [address] [place] [address] PCP - ACO Reach 07/10/22 Ole Yang MD [address] [place] [address] PCP - General Internal Medicine 07/28/22 Edna Alcantara LPN 05/06/24 documented as of this encounter
--- OUTSIDE RECORDS SUMMARY | 2024-07-22 06:09 | XMS_ITS | Encounter Summary ---
Author Organization [facility] Address [address] [place] [address] Care Team Providers Care Dinkey Skinner Name Role Phone Ole Yang MD Unavailable [phone] Ole Yang MD Primary Care Provider ThursdayBea LPN Unavailable [phone] Debora Saenz RN Unavailable [phone] Edna Alcantara PATIENT DAY COORDINATOR Unavailable Unavailable Encounter Details Date Type Department Care Team (Late st Contact Info) Description 08/18/2022 Abstract [facility] [address] [facility] 110 [place] [address] Ole Yang MD 112 [facility] 110 [place], [place] [id number] Social History Tobacco Use Types Packs/Day Years [...] Office Visit [facility] [address] [facility] 110 [place] [address] Dipti Wolf, PA [address] [place] [address] 08/31/2024 9:30 AM EDT Office Visit [facility] [address] [place] [address] Dipti Wolf PA [address] [place] [address] 11/30/2024 10:00 AM EDT Office Visit [facility] [address] [place] [address] Teri Jo MD [address] [place] [address] documented as of this encounter Visit Diagnoses Not on filedocumented in this encounter Care Teams Dinkey Skinner Relationship Specialty Start Date End Date Ole Yang MD [address] [facility] [address] [place] [address] PCP - ACO Reach 07/10/22 Ole Yang MD [address] [place] [address] PCP - General Internal Medicine 07/28/22ThuKeonBea deleon LPN [address] [place] [address] Licensed Practical Nurse Family Medicine 10/27/23 03/25/24 Debora Saenz, RN Licensed Practical Nurse Family Medicine 03/25/24 05/06/24 Edna Alcantara LPN 05/06/24 documented as of this encounter
--- OUTSIDE RECORDS SUMMARY | 2024-07-22 06:10 | XMS_ITS | CCD ---
Author Organization [facility] CliniSyct Care Team Providers Care Bore Miner Operator Name Role Phone KEANU ISLAS Admitting Unavailable KEANU ISLAS Attending Unavailable OLE YANG Referring Unavailable OLE YANG Primary Care Unavailable KEANU ISLAS Admitting Unavailable KEANU ILSAS Attending Unavailable OLE YANG Primary Care Unavailable OLE YANG Referring Unavailable KEANU ISLAS Admitting Unavailable KEANU ISLAS Attending Unavailable OLE YANG Primary Care Unavailable OLE YANG Referring Unavailable MICHELLE, DONNAMAD Consulting Unavailable EMILY, DR GRANT Primary Care [...] Unavailable ZIEBAMAIRANI, DR JOEL Petersen Consulting Unavailable CHERY, SHELDON Consulting Unavailable KEANU ISLAS Admitting Unavailable KEANU ISLAS Attending Unavailable EMILY, DR GRANT Primary Care Unavailable SINA, DR JOEL Petersen Consulting Unavailable ELIUDKEANU Oh Consulting Unavailable CHERY, SHELDON Consulting Unavailable CHERY, SHELDON Attending Unavailable CHERY, SHELDON Admitting Unavailable EMILY, DR GRANT Primary Care Unavailable OBELIEL CELESTE Attending Unavailable OLE YANG Referring Unavailable OLE YANG Primary Care Unavailable Ole Yang MD Unavailable Ole Yang MD Primary Care Provider [phone] [place] [employer]OLLER, Bea Unavailable Letty ALONZO Debora Unavailable Ole Yang MD Primary Care Provider [phone] [place] [employer] CONTROLLER, Edna Unavailable Unavailable OLE YANG Attending Unavailable MICHELLE, AHMAD F Attending Unavailable OLE YANG Attending Unavailable HEMMERDIPTI Attending Unavailable HEMMERDIPTI Attending Unavailable HEMMERDIPTI Attending Unavailable HEMMERDIPTI Attending Unavailable HEMMERDIPTI Attending Unavailable MICHELLE, AHMAD F Attending Unavailable MICHELLE, AHMAD F Referring Unavailable HEMDIPTI CHAIREZ Attending Unavailable KEANU ISLAS Referring Unavailable CLAUDIO SANCHEZ Attending Unavailable KEANU ISLAS Referring Unavailable ELIUD, KEANU Referring Unavailable DANIKA, NILE Referring Unavailable ELIUD, KEANU Referring Unavailable ELIUD, KEANU Referring Unavailable DANIKA, NILE Referring Unavailable ELIUD, KEANU Referring Unavailable ELIUD, KEANU Referring Unavailable ELIUD, KEANU Referring Unavailable ELIUD, KEANU Referring Unavailable ELIUD, KEANU Referring Unavailable ELIUD, KEANU Referring Unavailable ELIUD, KEANU Referring Unavailable CLAUDIO SANCHEZ Attending Unavailable Medications Current Medications Medication Drug Class(es) Dates Sig (Normalized) Sig (Original) [id number] 200 actuat albuterol 0.09 mg/actuat metered dose inhaler (20 sources) beta2-Adrenergic Agonist Start: 12-16-2022 End: 12-26-2023 take 2 puff(s) by inhalation every four hours for wheezing albuterol HFA 90 mcg/act inhaler Indications: Pulmonary emphysema, unspecified emphysema type (CMS/HCC) Inhale 2 puffs every 4 (four) hours if needed for wheezing 18 g 3 11/26/2023 Active apixaban 5 mg oral tablet (20 sources) Factor Xa Inhibitor Start: 03-02-2024 take [...] aspirin 81 mg delayed release oral tablet (20 sources) Platelet Aggregation Inhibitor, Nonsteroidal Anti-inflammatory Drug aspirin 81 MG EC tablet 1 (one) time each day at the same time. Active atorvastatin 80 mg oral tablet (20 sources) HMG-CoA Reductase Inhibitor Start: 03-02-19 take 1 tablet by mouth once daily atorvastatin (Lipitor) 80 MG tablet Indications: Atherosclerosis of [place]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 (CMS/HCC) Take 1 tablet (80 mg) by mouth Daily 100 tablet 3 03/02/2024 Active Start: 12-11-2023 atorvastatin ( Lipitor) 80 MG tablet Indications: Atherosclerosis of [place]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 (CMS/HCC) TAKE 1 TABLET EVERY MORNING 100 tablet 3 12/11/2023 Active Start: 02-18-2023 End: 02-17-2023 take 1 tablet by mouth in the morning atorvastatin (Lipitor) 80 MG tablet Indications: Atherosclerosis of [place]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 (CMS/HCC) Take 1 tablet (80 mg) by mouth in the morning. 100 tablet 3 02/18/2023 Active Start: 08-03-2022 take 1 tablet by christie th in the morning atorvastatin (Lipitor) 80 MG tablet Indications: Atherosclerosis of [place]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 (CMS/HCC) Take 1 tablet (80 mg) by mouth in the morning. 100 tablet 3 02/18/2023 Active 120 actuat budesonide 0.16 mg/actuat / formoterol fumarate 0.0048 mg/actuat / glycopyrrolate 0.009 mg/actuat metered dose inhaler (20 sources) Corticosteroid, beta2-Adrenergic Agonist Start: 03-16-2024 take 2 puff(s) by inhalation in the morning Uqtjirw-Lmxzpazovkr-Zmagimwjwq (Breztri Aerosphere) 160-9-4.8 MCG/ACT aerosol Indications: Pulmonary emphysema, unspecified emphysema type (CMS/HCC) Inhale 2 puffs in the morning and 2 puffs before bedtime. 10.7 g 3 03/16/2024 Active Budeson-Glycopyr rol-Formoterol (Breztri Aerosphere) 160-9-4.8 MCG/ACT aerosol Inhale 2 Inhalation in the morning and 2 Inhalation before bedtime. Active bumetanide 1 mg oral tablet (20 sources) Loop Diuretic End: 08-26-2023 take 1 tablet by mouth once daily as needed bumetanide (Bumex) 1 MG tablet Take 1 mg by mouth Daily PRN Active calcium carbonate 1500 mg / cholecalciferol 200 unt oral tablet (20 sources) Vitamin D take 2 tablets by mouth once daily Calcium Carb-Cholecalciferol 600-200 MG-UNIT tablet Take 2 tablets by mouth 1 (one) time each day at the same time Active cholecalciferol 0.05 mg oral capsule (13 sources) Vitamin D take 1 capsule by mouth once daily cholecalciferol (Vitamin D-3) 50 MCG (2000 UT) capsule Take 2,000 Units by mouth Daily Active cholecalciferol, vitamin D3, 10 mcg (400 unit) capsule 1 (one) time each day at the same time. 0 Active doxycycline hyclate 100 mg oral capsule (2 sources) Tetracycline-class Drug Start: 06-02-2024 End: 06-09-2024 doxycycline (Vibramycin) 100 MG capsule Indications: COPD exacerbation (CMS/HCC) Take 1 capsule (100 mg) by mouth in the morning and 1 capsule (100 mg) before bedtime. Do all this for 7 days. Take with at least 8 ounces (large glass) of water, do not lie down for 30 minutes after. 14 capsule 06/02/2024 06/09/2024 Active lisinopril 5 mg oral tablet (20 sources) Angiotensin Converting Enzyme Inhibitor Start: 03-02-2024 [...] mg oral tablet (20 sources) Benzodiazepine Start: 08-21-2021 End: 05-12-2024 take 1 tablet by mouth every six hours as needed for anxiety and anxiety and anxiety LORazepam (Ativan) 0.5 MG tablet Indications: Anxiety Take 1 tablet (0.5 mg) by mouth every 6 (six) hours if needed for anxiety 90 tablet 05/13/2024 Active lovastatin 40 mg oral tablet (1 source) HMG-CoA Reductase Inhibitor lovastatin (MEVACOR) 40 mg tablet lovastatin 40 mg tablet 0 Active methIMAzole 10 mg oral tablet (20 sources) Thyroid Hormone Synthesis Inhibitor Start: 03-02-2024 [...] succinate 50 mg extended release oral tablet (20 sources) beta-Adrenergic Fernanda Start: 03-02-2024 take 1 [...] Multiple Vitamins-Minerals (Multi For Her 50+) tablet (20 sources) Multiple Vitamins-Minerals (Multi For Her 50+) [...] Active PARoxetine hydrochloride 20 mg oral tablet (20 sources) Serotonin Reuptake Inhibitor Start: 025 take [...] Discontinued (Other) spironolactone 25 mg oral tablet (20 sources) Aldosterone Antagonist Start: 03-09-2024 take 1 [...] bronchitis; Translations: [Acute bronchitis, unspecified] 11-26-2023 Episodic Administrative/social admission (2 sources) Patient encounter status; Translations: [Other specified counseling] 06-02-2024 Episodic Anxiety disorders (20 sources) Anxiety; Translations: [Anxiety disorder, unspecified] Onset: 07-28-2022 07-28-2022 Chronic Asthma (20 sources) Mild intermittent asthma; Translations: [Mild intermittent asthma, uncomplicated] Onset: 09-12-2016 12-16-2022 Chronic Blindness and vision defects (20 sources) Diplopia; Translations: [Diplopia] Onset: 03-20-2022 07-28-2022 Episodic Cardiac dysrhythmias (20 sources) Unspecified atrial fibrillation; Translations: [Atrial fibrillation] Onset: 05-16-2022 07-28-2022 Chronic Chronic kidney disease (16 sources) Chronic kidney disease stage 3B ; Translations: [Chronic kidney disease, stage 3b (HCC) ([facility]/HCC)] Onset: 02-25-2024 02-25-2024 Chronic Chronic obstructive pulmonary disease and bronchiectasis (20 sources) Chronic obstructive pulmonary disease with (acute) exacerbation; Translations: [Chronic obstructive lung disease] Onset: 05-17-2020 07-28-2022 Chronic Conduction disorders (20 sources) Presence of cardiac pacemaker; Translations: [Automatic implantable cardiac defibrillator in situ] Onset: 11-21-2020 Resolved: 06-02-2024 07-28-2022 Chronic Congestive heart failure; nonhypertensive (20 sources) Acute on chronic combined systolic (congestive) and diastolic (congestive) heart failure; Translations: [Chronic combined systolic and diastolic heart failure] Onset: 08-05-2016 Resolved: 06-02-2024 Chronic Coronary atherosclerosis and other heart disease (20 sources) Atherosclerosis of coronary artery without angina pectoris; Translations: [Atherosclerotic heart disease of [place] coronary artery without angina pectoris] Onset: 09-24-2015 Resolved: 02-25-2024 12-16-2022 Chronic Diabetes mellitus without complication (20 sources) Impaired fasting glycemia; Translations: [Impaired fasting glucose] Onset: 07-28-2022 07-28-2022 Episodic Disorders of lipid metabolism (1 source) Hyperlipidemia, unspecified; Translations: [HYPERLIPIDEMIA UNSPECIFIED] Onset: 06-20-2021 Chronic Essential hypertension (20 sources) Essential (primary) hypertension; Translations: [Hypertensive disorder] Onset: 09-24-2015 Chronic Heart valve disorders (20 sources) Rheumatic disorders of both mitral and tricuspid valves; Translations: [Non-rheumatic mitral regurgitation ] Onset: 06-14-2021 07-28-2022 Chronic Hypertension with complications and secondary hypertension (18 sources) Benign hypertensive heart disease; Translations: [Hypertensive heart disease with heart failure] Onset: 09-24-2015 02-25-2024 Chronic Immunizations and screening for infectious disease (2 sources) Vaccination needed; Translations: [Encounter for immunization] 11-26-2023 Episodic Menopausal disorders (20 sources) Other primary ovarian failure; Translations: [Primary ovarian failure] Onset: 03-19-2022 Chronic Mood disorders (20 sources) Recurrent major depressive episodes, mild ; Translations: [Major depressive disorder, recurrent, mild] Onset: 07-28-2022 07-28-2022 Chronic Osteoarthritis (20 sources) Primary osteoarthritis, right shoulder; Translations: [Arthropathy, unspecified, shoulder region] Onset: 07-28-2022 07-28-2022 Chronic Osteoporosis (20 sources) Senile osteoporosis; Translations: [Age-related osteoporosis without current pathological fracture] Onset: 07-28-2022 07-28-2022 Chronic Other aftercare (20 sources) Long-term current use of anticoagulant; Translations: [terminal manager (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] Onset: 02-11-2023 02-11-2023 Episodic Other and ill-defined heart disease (20 sources) Chronic systolic dysfunction of left ventricle; Translations: [Heart disease, unspecified] Onset: 07-28-2022 07-28-2022 Chronic Other circulatory disease (1 source) Personal history of transient ischemic attack (TIA), and cerebral infarction without residual deficits; Translations: [PERS HX TIA AND CI NO RESID DEFICIT] Onset: 03-20-2022 Episodic Other circulatory disease (20 sources) History of cerebrovascular accident without residual deficits; Translations: [Personal history of transient ischemic attack (TIA), and cerebral infarction without residual deficits] Onset: 02-24-2020 12-16-2022 Episodic Other connective tissue disease (1 source) Repeated falls; Translations: [REPEATED FALLS] Onset: 03-20-2022 Episodic Other connective tissue disease (20 sources) Recurrent falls ; Translations: [Repeated falls] Onset: 07-28-2022 07-28-2022 Episodic Other connective tissue disease (20 sources) Right rotator cuff syndrome; Translations: [Unspecified rotator cuff tear or rupture of right shoulder, not specified as traumatic] Onset: 07-28-2022 07-28-2022 Episodic Other eye disorders (1 source) Monocular esotropia, right eye; Translations: [Monocular esotropia, right eye] Onset: 04-27-2023 Episodic Other liver diseases (20 sources) Elevated liver enzymes level; Translations: [Abnormal levels of other serum enzymes] Onset: 07-28-2022 07-28-2022 Episodic Other lower respiratory disease (20 sources) Dyspnea on exertion; Translations: [Other forms of dyspnea] Onset: 08-07-2023 08-26-2023 Episodic Other lower respiratory disease (20 sources) Hypoxia; Translations: [Hypoxemia] Onset: 08-26-2023 08-26-2023 Episodic Other non-traumatic joint disorders (20 sources) Derangement of shoulder; Translations: [Joint derangement, unspecified] Onset: 07-28-2022 07-28-2022 Episodic Other nutritional; endocrine; and metabolic disorders (20 sources) Body mass index 25-29 - overweight; Translations: [Overweight] Onset: 07-28-2022 07-28-2022 Episodic Laury-; endo-; and myocarditis; cardiomyopathy (except that caused by tuberculosis or sexually transmitted disease) (20 sources) Cardiomyopathy; Translations: [Cardiomyopathy, unspecified] Onset: 08-07-2023 09-01-2023 Chronic Residual codes; unclassified (2 sources) Localized edema; Translations: [Localized edema] 02-11-2023 Episodic Residual codes; unclassified (20 sources) Memory impairment; Translations: [Other amnesia] Onset: 05-27-2023 05-27-2023 Episodic Respiratory failure; insufficiency; arrest (adult) (16 sources) Dependence on supplemental oxygen; Translations: [Dependence [...] Problem Date Documented Date Episodic/Chronic Abdominal pain (20 sources) Inguinal pain; Translations: [Lower abdominal pain, unspecified] Onset: 10-04-2015 Resolved: 05-27-2023 05-27-2023 Episodic Acute cerebrovascular disease (20 sources) Cerebrovascular accident; Translations: [Cerebral infarction, unspecified] Onset: 09-24-2015 Resolved: 05-27-2023 05-27-2023 Chronic E Codes: Natural/environment (1 source) Overexertion from prolonged static or awkward postures, initial encounter; Translations: [OVEREXERT PROLNG STAT/AWK PST INIT] Onset: 06-18-2021 Episodic Mood disorders (20 sources) Mood disorders Onset: 05-27-2023 Resolved: 06-02-2024 05-27-2023 Other aftercare (1 source) terminal manager (current) use of aspirin; Translations: [TREE DEADENER 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 ASPIRIN] Onset: 06-18-2021 Episodic Other aftercare (1 source) Other skilled nursing (current) drug therapy; Translations: [OTH CORRECTION CURRENT DRUG THERAPY] Onset: 06-18-2021 Episodic Other connective tissue disease (4 sources) Pain in right leg; Translations: [PAIN IN RIGHT LEG] Onset: 09-04-2021 Episodic Other connective tissue disease (1 source) Pain in left leg; Translations: [PAIN IN LEFT LEG] Onset: 06-18-2021 Episodic Other connective tissue disease (20 sources) Tear of right rotator cuff; Translations: [Unspecified rotator cuff tear or rupture of right shoulder, not specified as traumatic] Onset: 09-12-2016 Resolved: 06-02-2024 12-16-2022 Episodic Other eye disorders (1 source) [...] [SHORTNESS OF BREATH] Onset: 06-04-2021 Episodic Other screening for suspected conditions (not mental disorders or infectious disease) (20 sources) Lung function testing abnormal; Translations: [Abnormal [...] INIT] Onset: 06-18-2021 Episodic Superficial injury; contusion (20 sources) Contusion of right lower leg, initial encounter; Translations: [Contusion of unspecified part of lower limb] Onset: 09-24-2015 Resolved: 05-27-2023 02-11-2023 Episodic Results Test Name Value Interpretation Reference Range Facility BASIC METABOLIC PANELon 05-18 Calcium [Mass/Vol] 8.9 mg/dL Normal 8.6-10.4 [facility] Comment on above: Performed By: #### 6 399, 56147, 496, 7600 #### [facility] [place] [address] Sales Support Representative: Robbie Garnica MD Chloride [Moles/Vol] 108 mmol/L Normal 98-110 [facility] Comment on above: Performed By: #### 6 399, 95466, 496, 7600 #### [facility] [place] [address] Sales Support Representative: Robbie Garnica MD CO2 [Moles/Vol] 26 mmol/L Normal 20-32 [facility] Comment on above: Performed By: #### 6 399, 72993, 496, 7600 #### [facility] [place] [address] Sales Support Representative: Robbie Garnica MD Creatinine [Mass/Vol] 1.15 mg/dL High 0.60-0.95 [facility] Comment on above: Performed By: #### 6 399, 65206, 496, 7600 #### [facility] [place] [address] Sales Support Representative: Robbie Garnica MD GFR/1.73 sq M.predicted among non-blacks MDRD (S/P/Bld) [Vol rate/Area] 48 mL/min/{1.73_m2} Low > OR = 60 [facility] Comment on above: Performed By: #### 6 399, 06065, 496, 7600 #### [facility] [place] [address] Sales Support Representative: Robbie Garnica MD Glucose [Mass/Vol] 96 mg/dL Normal 65-99 [facility] Comment on above: Result Comment: Fasting reference interval Performed By: #### 6 399, 24265, 496, 7600 #### [facility] [address], [address] [place] [address] Sales Support Representative: Robbie Garnica MD Potassium [Moles/Vol] 5.1 mmol/L Normal 3.5-5.3 [facility] Comment on above: Performed By: #### 6 399, 60243, 496, 7600 #### [facility] [place] [address] Sales Support Representative: Robbie Garnica MD Sodium [Moles/Vol] 142 mmol/L Normal 135-146 [facility] Comment on above: Performed By: #### 6 399, 95040, 496, 7600 #### [facility] [place] [address] Sales Support Representative: Robbie Garnica MD Urea nitrogen [Mass/Vol] 33 mg/dL High 7-25 [facility] Comment on above: Performed By: #### 6 399, 33438, 496, 7600 #### [facility] [place] [address] Sales Support Representative: Robbie Garnica MD Urea nitrogen/Creatinin e [Mass ratio] 29 mg/mg High 6-22 [facility] Comment on above: Performed By: #### 6 399, 97879, 496, 7600 #### [facility] [place] [address] Sales Support Representative: Robbie Garnica MD CBC (INCLUDES DIFF/PLT)on Basophils (Bld) [#/Vol] 0.039 10*3/uL Normal 0-200 [facility] Comment on above: Performed By: #### 6 399, 99973, 496, 7600 #### [facility] [place] [address] Sales Support Representative: Robbie Garnica MD Basophils/100 WBC (Bld) 0.6 % Normal [facility] Comment on above: Performed By: #### 6 399, 34270, 496, 7600 #### [facility] of [place] [address] Sales Support Representative: Robbie Garnica MD Eosinophils (Bld) [#/Vol] 0.241 10*3/uL Normal 15-500 [facility] Comment on above: Performed By: #### 6 399, 83690, 496, 7600 #### [facility] [place] [address] Sales Support Representative: Robbie Garnica MD Eosinophils/100 WBC (Bld) 3.7 % Normal [facility] Comment on above: Performed By: #### 6 399, 70763, 496, 7600 #### [facility] [place] [address] Sales Support Representative: Robbie Garnica MD Erythrocyte distribution width (RBC) [Ratio] 12.5 % Normal 11.0-15.0 [facility] Comment on above: Performed By: #### 6 399, 35138, 496, 7600 #### [facility] [place] [address] Sales Support Representative: Robbie Garnica MD Hematocrit (Bld) [Volume fraction] 38.9 % Normal 35.0-45.0 [facility] Comment on above: Performed By: #### 6 399, 31795, 496, 7600 #### [facility] [place] [address] Sales Support Representative: Robbie Garnica MD Hemoglobin (Bld) [Mass/Vol] 12.6 g/dL Normal 11.7-15.5 [facility] Comment on above: Performed By: #### 6 399, 17555, 496, 7600 #### [facility] [place] [address] Sales Support Representative: Robbie Garnica MD Lymphocytes (Bld) [#/Vol] 1.053 10*3/uL Normal 850-3900 [facility] Comment on above: Performed By: #### 6 399, 90529, 496, 7600 #### [facility] [place] [address] Sales Support Representative: Robbie Garnica MD Lymphocytes/100 WBC (Bld) 16.2 % Normal [facility] Comment on above: Performed By: #### 6 399, 04440, 496, 7600 #### [facility] [place] [address] Sales Support Representative: Robbie Garnica MD MCH (RBC) [Entitic mass] 30.4 pg Normal 27.0-33.0 [facility] Comment on above: Performed By: #### 6 399, 93881, 496, 7600 #### [facility] [place] [address] Sales Support Representative: Robbie Garnica MD MCHC (RBC) [Mass/Vol] 32.4 g/dL Normal 32.0-36.0 [facility] Comment on above: Result Comment: For adults, a slight decrease in the calculated MCHC value (in the range of 30 to 32 g/dL) is most likely not clinically significant; however, it should be interpreted with caution in correlation with other red cell parameters and the patient's clinical condition. Performed By: #### 6 399, 10131, 496, 7600 #### [facility] [place] [address] Sales Support Representative: Robbie Garnica MD MCV (RBC) [Entitic vol] 93.7 fL Normal 80.0-100.0 [facility] Comment on above: Performed By: #### 6 399, 28340, 496, 7600 #### [facility] [place] [address] Sales Support Representative: Robbie Garnica MD Monocytes (Bld) [#/Vol] 0.475 10*3/uL Normal 200-950 [facility] Comment on above: Performed By: #### 6 399, 79651, 496, 7600 #### [facility] of [address], [address] [place] [address] Sales Support Representative: Robbie Garnica MD Monocytes/100 WBC (Bld) 7.3 % Normal [facility] Comment on above: Performed By: #### 6 399, 04105, 496, 7600 #### [facility] of [place] [address] Sales Support Representative: Robbie Garnica MD Neutrophils (Bld) [#/Vol] 4.693 10*3/uL Normal 3792-3435 [facility] Comment on above: Performed By: #### 6 399, 12250, 496, 7600 #### [facility] [place] [address] Sales Support Representative: Robbie Garnica MD Neutrophils/100 WBC (Bld) 72.2 % Normal [facility] Comment on above: Performed By: #### 6 399, 62134, 496, 7600 #### [facility] [place] [address] Sales Support Representative: Robbie Garnica MD Platelet mean volume (Bld) [Entitic vol] 11.4 fL Normal 7.5-12.5 [facility] Comment on above: Performed By: #### 6 399, 68287, 496, 7600 #### [facility] [place] [address] Sales Support Representative: Robbie Garnica MD Platelets (Bld) [#/Vol] 186 10*3/uL Normal 140-400 [facility] Comment on above: Performed By: #### 6 399, 67380, 496, 7600 #### [facility] [place] [address] Sales Support Representative: Robbie Garnica MD RBC (Bld) [#/Vol] 4.15 10*6/uL Normal 3.80-5.10 [facility] Comment on above: Performed By: #### 6 399, 19668, 496, 7600 #### [facility] [place] [address], [address] [place] [address] Sales Support Representative: Robbie Garnica MD WBC (Bld) [#/Vol] 6.5 10*3/uL Normal 3.8-10.8 [facility] Comment on above: Performed By: #### 6 399, 69541, 496, 7600 #### [facility] [address], [address] [place] [address] Sales Support Representative: Robbie Garnica MD HEMOGLOBIN A1con 06-07-2024 HbA1c (Bld) [Mass fraction] 5.7 % High <5.7 [facility] Comment on above: Result Comment: For someone without known diabetes, a [...] A1c for diagnosis of diabetes for children. Performed By: #### 6 399, 92184, 496, 7600 #### [facility] [address], [address] [place] [address] Sales Support Representative: Robbie Garnica MD LIPID PANEL, STANDARDon 05-18 Cholesterol [Mass/Vol] 118 mg/dL Normal <200 [facility] Comment on above: Order Comment: FASTI NG:YES FASTING: YES Performed By: #### 6 399, 38581, 496, 7600 #### [facility] [address], [address] [place] [address] Sales Support Representative: Robbie Garnica MD Cholesterol in HDL [Mass/Vol] 54 mg/dL Normal > OR = 50 [facility] Comment on above: Order Comment: FASTI NG:YES FASTING: YES Performed By: #### 6 399, 95886, 496, 7600 #### [facility] [address], [address] [place] [address] Sales Support Representative: Robbie Garnica MD Cholesterol in LDL [Mass/Vol] 49 mg/dL Normal [facility] Comment on above: Order Comment: FASTI NG:YES FASTING: YES Result Comment: Refe rence range: <100 Desirable range <100 mg/dL for primary prevention; <70 mg/dL for patients with CHD or diabetic patients with > or = 2 CHD risk factors. LDL-C is now calculated using the Cara calculation, which is a validated novel method providing better accuracy than the Friedewald equation in the estimation of LDL-C. Damion HELTON et al. CONSUELO. 2013;310(19): 5867-9304 (http://education.Vaximm.Sunfire/faq/ZYY756) Performed By: #### 6 399, 11811, 496, 7600 #### [facility] [address], [address] [place] [address] Sales Support Representative: Robbie Garnica MD Cholesterol.total/ Cholesterol in HDL [Mass ratio] 2.2 {ratio} Normal <5.0 [facility] Comment on above: Order Comment: FASTI NG:YES FASTING: YES Performed By: #### 6 399, 34063, 496, 7600 #### [facility] [place] [address] Sales Support Representative: Robbie Garnica MD NON HDL CHOLESTEROL 64 mg/dL (calc) Normal <130 [facility] Comment on above: Order Comment: FASTI NG:YES FASTING: YES Result Comment: For patients with diabetes plus 1 major ASCVD risk factor, treating to a non-HDL-C goal of <100 mg/dL (LDL-C of <70 mg/dL) is considered a therapeutic option. Performed By: #### 6 399, 92096, 496, 7600 #### [facility] [address], [address] [place] [address] Sales Support Representative: Robbie Garnica MD Triglyceride [Mass/Vol] 66 mg/dL Normal <150 [facility] Comment on above: Order Comment: FASTI NG:YES FASTING: YES Performed By: #### 6 399, 30927, 496, 7600 #### [facility] [address], [address] [place], [place] [id number] Sales Support Representative: Robbie Garnica MD VITAMIN D,25-OH,TOTAL,IAon 0 06-07-2024 VITAMIN D,25-OH,TOTAL,IA 49 ng/mL Normal 30-100 [facility] Comment on above: Result Comment: [place] min D Status 25-OH Vitamin D: Deficiency: <20 ng/mL Insufficiency: 20 - 29 ng/mL Optimal: > or = 30 ng/mL For 25-OH Vitamin D testing on patients on D2-supplementation and patients for whom quantitation of D2 and D3 fractions is required, the QuestAssureD(TM) 25-OH VIT D, (D2,D3), LC/MS/MS is recommended: order code 18043 (patients >2yrs). See Note 1 Note 1 For additional information, please refer to http://education.[employer]/faq/WSF040 (This link is being provided for informational/ educational purposes only.) Performed By: #### 6 399, 69299, 496, 4970 #### [address], [address] [place], [place] [id number] Sales Support Representative: Robbie Garnica MD ALL T3 FREEon 05-23-2024 Free T3 [Mass/Vol] 2.72 pg/mL 2.18 - 3. 98 pg/mL [facility] ALL THYROID STIM HORMONEon 0 05-23-2024 Interpretation and review of laboratory results Abnormal [facility] TSH Qn 4.74 m[IU]/L High [facility] ALL THYROXINE (T4) FREEon Free T4 [Mass/Vol] 0.98 ng/dL 0.76 - 1. 46 ng/dL [facility] Spoke with patient a nd made her aware to start taking full tablet of spironolactone starting tomorrow per Dr. Sanchez. Advised her to still cut lisinopril tablet in half. She will continue to track BP's and call us with updates. Patient verbalized understanding. Normal [facility] 36 Patient called to ma ke you aware that since decreasing spironolactone and lisinopril yesterday her BP has been: 147/92 160/108 172/118 I told her to take the other half tablet of spironolactone right now. Any other recommendations? Please advise. Thanks Normal [facility] Office Visiton 01-25-2024 Follow-up visit [id number] Lluvia Moreno 1940 F Date Provider Department Center 01/25/2024 CLAUDIO HASSAN Family History Problem Relation Age of Onset Colon cancer Father Coronary artery disease Brother Hypertension Brother Kidney cancer Brother Family Status - Relation Status Age at Father Brother Level of Service:[address] [place] OFFICE/OUTPATIENT ESTABLISHED MOD MDM 30 MIN Reason for Visit and Comments: Atrial Fibrillation [80] - Had thyroid function last month. Shortness of Breath [662271] Hypertension [989415] Cardiomyopathy [104] Valve Disorder [3372] Coronary Artery Disease [187] Congestive Heart Failure [127] - Admitted to [facility] in August 2023 for COPD, hypertension, and CHF. Pacemaker Check [337] - Per device rep, all looks good, no events . [facility] ALL THYROXINE (T4) FREEon Free T4 [Mass/Vol] 1.02 ng/dL 0.76 - 1. 46 ng/dL [facility] Office Visiton 08-07-2023 Follow-up visit [id number] Lluvia Moreno 1940 F Date Provider Department Center 08/07/2023 CLAUDIO HASSAN Family History Problem Relation Age of Onset Colon cancer Father Coronary artery disease Brother Hypertension Brother Kidney cancer Brother Family Status - Relation Status Age at Father Brother Level of Service:[address] [place] OFFICE/OUTPATIENT ESTABLISHED MOD MDM 30 MIN [facility] FREE T3on 05-14-2022 FREE T3 2.54 pg/mlL Normal 2.18-3.98 [facility] Comment on above: Performed By: #### F T3, TSH #### [facility] [address] [place] [address] [address] Hugo Yang FREE T4on 05-14-2022 Free T4 [Mass/Vol] 1.09 ng/dL Normal 0.76-1.46 [facility] Comment on above: Performed By: #### F T4 #### [facility] [address] [place], [place] [address] Dr. Hugo Yang TSHon 05-14-2022 TSH 3.015 uIU/mL Normal 0.358-3.740 [facility] Comment on above: Performed By: #### F T3, TSH #### [facility] [address] [place], [place] [address] HEAD WO CONon [...] by: JOEL GARCIA Date: 2022-03-19 10:33 Normal [facility] XR DEXA BONE DENSITYon 03-19 XR DEXA [...] by: JOEL GARCIA Date: 2022-03-19 11:11 Normal [facility] ECHOCARDIO M/2D COMPLETEon 1 02-22-2021 ECHOCARDIO M/2D COMPLETE Patient: LLUVIA MORENO Exam Date: 12/23/2021 : 1940 Gender:F Ordering : [facility] Admission #: [id number] Family : DR OLE YANG M.D. Order #: [id number] CLICK HERE TO VIEW EXAM ECHOCARDIOGRAM REPORT [...] M.D. on 12/24/2021 at 15:56 Normal [facility] FREE T3on 11-25-2021 FREE T3 1.97 pg/mlL Critically low 2.18-3.98 [facility] Comment on above: Performed By: #### F T3, TSH #### [facility] [address] [place] [address] Dr. Hugo Yang FREE T4on 11-25-2021 Free T4 [Mass/Vol] 1.00 ng/dL Normal 0.76-1.46 [facility] Comment on above: Performed By: #### F T3, TSH #### [facility] [address] [place] [address] Dr. Hugo Yang LIVER PROFILEon 11-25-2021 Albumin [Mass/Vol] 3.9 g/dL Normal 3.4-5.0 [facility] Comment on above: Performed By: #### F T3, TSH #### [facility] [address] [place] [address] Dr. Hugo Yang Albumin/Globulin [Mass ratio] 1.1 {ratio} Normal [facility] Comment on above: Performed By: #### F T3, TSH #### [facility] [address] [place] [address] Dr. Hugo Yang ALP [Catalytic activity/Vol] 94 U/L Normal 46-116 [facility] Comment on above: Performed By: #### F T3, TSH #### [facility] [address] [place] [address] Dr. Hugo Yang ALT [Catalytic activity/Vol] 41 U/L Normal 14-59 [facility] Comment on above: Performed By: #### F T3, TSH #### [facility] [address] [place] [address] Dr. Hugo Yang AST [Catalytic activity/Vol] 25 U/L Normal 15-37 [facility] Comment on above: Performed By: #### F T3, TSH #### [facility] [address] [place] [address] Dr. Hugo Yang BILI, CONJUGATED 0.2 mg/dL Normal 0.0-0.2 [facility] Comment on above: Performed By: #### F T3, TSH #### [facility] [address] [place] [address] [address] Hugo Yang Bilirubin [Mass/Vol] 0.8 mg/dL Normal 0.2-1.0 [facility] Comment on above: Performed By: #### F T3, TSH #### [facility] [address] [place] [address] [address] Hugo Yang Globulin (S) [Mass/Vol] 3.5 g/dL Normal [facility] Comment on above: Performed By: #### F T3, TSH #### [facility] [address] [place] [address] [address] Hugo Yang Protein [Mass/Vol] 7.4 g/dL Normal 6.4-8.2 [facility] Comment on above: Performed By: #### F T3, TSH #### [facility] [address] [place] [address] [address] Hugo Yang TSHon 11-25-2021 TSH 2.892 uIU/mL Normal 0.358-3.740 [facility] Comment on above: Performed By: #### F T3, TSH #### [facility] [address] [place] [address] [address] Hugo Yang US PIPER DOP LEG [...] JOEL GARCIA Date: 2021-09-04 12:18 Normal [facility] Cardiovascular Lab Reporton 08-21-2021 Cardiovascular Lab Report [facility] Patient Name: [facility] MR #: [id number] Physician: Keanu Islas MD Department of Service Date: 08/21/2021 Medicine Birthdate: 1940 Division of Room #: CC Cardiology Adult Cardiovascular Services [facility] [address] [place] [address] Cardiovascular Laboratory Report TBIV-UPGRADE PROCEDURE NOTE DATE OF PROCEDURE: 08/21/2021 PERFORMING PHYSICIAN: Dr. Keanu Islas CONSENT: Patient LOCATION: EP Lab PROCEDURE PERFORMED: 1. Implantation of Biventricular ICD ([employer]). 2. Explantation of previously implanted pacemaker generator ([employer]). 3. RV pacing lead and extraction. [...] proceeded to place an LV lead. The [place] sheath was advanced, and with the wire, the CS os was accessed. However there was no support and so I used an amplatz wire for support. The inner cannula was then advanced into the CS body. The inner cannula was then removed and venogram was performed. [place] catheter was advanced and venogram was performed. This revealed a good posterolateral vein, but other than that, an anterior vein was noted, but no significant other branches were seen. After this, a 0.014 wire was passed through the [place]-Sarah catheter and traversed into the posterolateral vein. However, the wire was short enough and we could not get a good grasp at the end. So, thereafter, the [place]-Sarah catheter was removed and 90-degree inner cannula was used to access the vein. A longer 0.014 wire tracked into the vein. Over this, a Guardly Acuity straight lead was advanced and placed [...] t (more content not included)... Normal [facility] SARS-CoV-2 (COVID-19) RNA SONA+probe Ql (Unsp spec) Not detected Normal NOT DETECTED [facility] Comment on above: Result Comment: When diagnostic [...] for this test is supported by the Drain of Health and Human Service's declaration that [...] used). Performed By: #### B MP #### [facility] [address] [place] [address] Dr. Hugo Yang HEMOGRAM AND PLATELon 2021 Hematocrit (Bld) [Volume fraction] 43.7 % Normal 36.0-48.0 [facility] Comment on above: Performed By: #### C BC #### [facility] [address] [place] [address] Dr. Hugo Yang Hemoglobin (Bld) [Mass/Vol] 14.2 g/dL Normal 12.0-16.0 [facility] Comment on above: Performed By: #### C BC #### [facility] [address] [place] [address] Dr. Hugo Yang MCH (RBC) [Entitic mass] 31.0 pg Normal 26.7-34.0 [facility] Comment on above: Performed By: #### C BC #### [facility] [address] [place] [address] Dr. Hugo Yang MCHC (RBC) [Mass/Vol] 32.5 g/dL Normal 29.9-35.2 [facility] Comment on above: Performed By: #### C BC #### [facility] [address] [place] [address] Dr. Hugo Yang MCV (RBC) [Entitic vol] 95.4 fL Normal 81.0-99.0 [facility] Comment on above: Performed By: #### C BC #### [facility] [address] [place] [address] Dr. Hugo Yang PLT 161 103/ul Normal 150-450 [facility] Comment on above: Performed By: #### C BC #### [facility] [address] [place] [address] Dr. Hugo Yang RBC 4.58 106/ul Normal 4.20-5.40 [facility] Comment on above: Performed By: #### C BC #### [facility] [address] [place] [address] Dr. Hugo Yang WBC 6.9 103/ul Normal 4.0-11.0 [facility] Comment on above: Performed By: #### C BC #### [facility] [address] [place] [address] Dr. Hugo Yang PROF CHEM 8 (BAS METB)on Anion gap [Moles/Vol] 11.5 mmol/L Normal [facility] Comment on above: Performed By: #### B MP #### [facility] [address] [place] [address] Dr. Hugo Yang Calcium [Mass/Vol] 9.6 mg/dL Normal 8.5-10.1 [facility] Comment on above: Performed By: #### B MP #### [facility] [address] [place] [address] Dr. Hugo Yang Chloride [Moles/Vol] 104 mmol/L Normal 98-107 [facility] Comment on above: Performed By: #### B MP #### [facility] [address] [place] [address] [address] Hugo Yang CO2 [Moles/Vol] 30.6 mmol/L Normal 21.0-32.0 [facility] Comment on above: Performed By: #### B MP #### [facility] [address] [place] [address] [address] Hugo Yang Creatinine [Mass/Vol] 1.24 mg/dL Critically high 0.55-1.02 [facility] Comment on above: Performed By: #### B MP #### [facility] [address] [place] [address] [address] Hugo Yang EGFR-AF VINCENTIAN 51 mL/min/1.73m2 Critically low >=60 [facility] Comment on above: Performed By: #### B MP #### [facility] [address] [place] [address] [address] Hugo Yang EGFR-NON AF VINCENTIAN 42 mL/min/1.73m2 Critically low >=60 [facility] Comment on above: Performed By: #### B MP #### [facility] [address] [place] [address] [address] Hugo Yang Glucose [Mass/Vol] 111 mg/dL Critically high 74-106 [facility] Comment on above: Performed By: #### B MP #### [facility] [address] [place] [address] [address] Hugo Yang Potassium [Moles/Vol] 5.1 mmol/L Normal 3.5-5.1 [facility] Comment on above: Performed By: #### B MP #### [facility] [address] [place] [address] [address] Hugo Yang Sodium [Moles/Vol] 141 mmol/L Normal 136-145 [facility] Comment on above: Performed By: #### B MP #### [facility] [address] [place] [address] [address] Hugo Yang Urea nitrogen [Mass/Vol] 31.0 mg/dL Critically high 7.0-18.0 [facility] Comment on above: Performed By: #### B MP #### [facility] [address] [place] [address] [address] Hugo Yang Urea nitrogen/Creatinin e [Mass ratio] 25.0 mg/mg Normal [facility] Comment on above: Performed By: #### B MP #### [facility] [address] [place] [address] Dr. Hugo Yang BNPon 07-30-2021 Natriuretic peptide B (Bld) [Mass/Vol] 1994.0 pg/mL Critically high <=1,800.0 [facility] Comment on above: Performed By: #### C BC #### [facility] [address] [place] [address] Dr. Hugo Yang PROF CHEM 8 (BAS METB)on Anion gap [Moles/Vol] 11.3 mmol/L Normal [facility] Comment on above: Performed By: #### C BC #### [facility] [address] [place] [address] Dr. Hugo Yang Calcium [Mass/Vol] 9.7 mg/dL Normal 8.5-10.1 [facility] Comment on above: Performed By: #### C BC #### [facility] [address] [place] [address] Dr. Hugo Yang Chloride [Moles/Vol] 104 mmol/L Normal 98-107 [facility] Comment on above: Performed By: #### C BC #### [facility] [address] [place] [address] Dr. Hugo Yang CO2 [Moles/Vol] 29.6 mmol/L Normal 21.0-32.0 [facility] Comment on above: Performed By: #### C BC #### [facility] [address] [place] [address] Dr. Hugo Yang Creatinine [Mass/Vol] 1.28 mg/dL Critically high 0.55-1.02 [facility] Comment on above: Performed By: #### C BC #### [facility] [address] [place] [address] Dr. Hugo Yang EGFR-AF VINCENTIAN 49 mL/min/1.73m2 Critically low >=60 [facility] Comment on above: Performed By: #### C BC #### [facility] [address] [place] [address] [address] Hugo Yang EGFR-NON AF VINCENTIAN 40 mL/min/1.73m2 Critically low >=60 [facility] Comment on above: Performed By: #### C BC #### [facility] [address] [place] [address] [address] Hugo Yang Glucose [Mass/Vol] 119 mg/dL Critically high 74-106 [facility] Comment on above: Performed By: #### C BC #### [facility] [address] [place] [address] [address] Hugo Yang Potassium [Moles/Vol] 4.9 mmol/L Normal 3.5-5.1 [facility] Comment on above: Performed By: #### C BC #### [facility] [address] [place] [address] [address] Hugo Yang Sodium [Moles/Vol] 140 mmol/L Normal 136-145 [facility] Comment on above: Performed By: #### C BC #### [facility] [address] [place] [address] [address] Hugo Yang Urea nitrogen [Mass/Vol] 30.0 mg/dL Critically high 7.0-18.0 [facility] Comment on above: Performed By: #### C BC #### [facility] [address] [place] [address] [address] Hugo Yang Urea nitrogen/Creatinin e [Mass ratio] 23.4 mg/mg Normal [facility] Comment on above: Performed By: #### C BC #### [facility] [address] [place] [address] [address] Hugo Yang FREE T3on 06-28-2021 FREE T3 2.64 pg/mlL Normal 2.18-3.98 [facility] Comment on above: Performed By: #### F T3, TSH #### [facility] [address] [place] [address] [address] Hugo Yang FREE T4on 06-28-2021 Free T4 [Mass/Vol] 1.19 ng/dL Normal 0.76-1.46 [facility] Comment on above: Performed By: #### B MP #### [facility] [address] [place] [address] [address] Hugo Yang LIVER PROFILEon 06-28-2021 Albumin [Mass/Vol] 3.8 g/dL Normal 3.4-5.0 [facility] Comment on above: Performed By: #### F T3, TSH #### [facility] [address] [place] [address] [address] Hugo Yang Albumin/Globulin [Mass ratio] 1.2 {ratio} Normal [facility] Comment on above: Performed By: #### F T3, TSH #### [facility] [address] [place] [address] Dr. Hugo Yang ALP [Catalytic activity/Vol] 88 U/L Normal 46-116 [facility] Comment on above: Performed By: #### F T3, TSH #### [facility] [address] [place] [address] Dr. Hugo Yang ALT [Catalytic activity/Vol] 54 U/L Normal 14-59 [facility] Comment on above: Performed By: #### F T3, TSH #### [facility] [address] [place] [address] Dr. Hugo Yang AST [Catalytic activity/Vol] 36 U/L Normal 15-37 [facility] Comment on above: Performed By: #### F T3, TSH #### [facility] [address] [place] [address] [address] Hugo Yang BILI, CONJUGATED 0.3 mg/dL Critically high 0.0-0.2 [facility] Comment on above: Performed By: #### F T3, TSH #### [facility] [address] [place] [address] [address] Hugo Yang Bilirubin [Mass/Vol] 0.9 mg/dL Normal 0.2-1.0 [facility] Comment on above: Performed By: #### F T3, TSH #### [facility] [address] [place] [address] Dr. Hugo Yang Globulin (S) [Mass/Vol] 3.3 g/dL Normal [facility] Comment on above: Performed By: #### F T3, TSH #### [facility] [address] [place] [address] [address] Hugo Yang Protein [Mass/Vol] 7.1 g/dL Normal 6.4-8.2 [facility] Comment on above: Performed By: #### F T3, TSH #### [facility] [address] [place] [address] Dr. Hugo Yang PROF CHEM 8 (BAS METB)on Anion gap [Moles/Vol] 13.6 mmol/L Normal [facility] Comment on above: Performed By: #### B MP #### [facility] [address] [place] [address] Dr. Hugo Yang Calcium [Mass/Vol] 9.5 mg/dL Normal 8.5-10.1 [facility] Comment on above: Performed By: #### B MP #### [facility] [address] [place] [address] Dr. Hugo Yang Chloride [Moles/Vol] 105 mmol/L Normal 98-107 [facility] Comment on above: Performed By: #### B MP #### [facility] [address] [place] [address] Dr. Hugo Yang CO2 [Moles/Vol] 28.5 mmol/L Normal 21.0-32.0 [facility] Comment on above: Performed By: #### B MP #### [facility] [address] [place] [address] Dr. Hugo Yang Creatinine [Mass/Vol] 1.05 mg/dL Critically high 0.55-1.02 [facility] Comment on above: Performed By: #### B MP #### [facility] [address] [place] [address] Dr. Hugo Yang EGFR-AF VINCENTIAN >60 Normal >=60 [facility] Comment on above: Performed By: #### B MP #### [facility] [address] [place] [address] Dr. Hugo Yang EGFR-NON AF VINCENTIAN 51 mL/min/1.73m2 Critically low >=60 [facility] Comment on above: Performed By: #### B MP #### [facility] [address] [place] [address] [address] Hugo Yang Glucose [Mass/Vol] 113 mg/dL Critically high 74-106 [facility] Comment on above: Performed By: #### B MP #### [facility] [address] [place] [address] [address] Hugo Yang Potassium [Moles/Vol] 5.1 mmol/L Normal 3.5-5.1 [facility] Comment on above: Performed By: #### B MP #### [facility] [address] [place] [address] Dr. Hugo Yang Sodium [Moles/Vol] 142 mmol/L Normal 136-145 [facility] Comment on above: Performed By: #### B MP #### [facility] [address] [place] [address] [address] Hugo Yang Urea nitrogen [Mass/Vol] 29.0 mg/dL Critically high 7.0-18.0 [facility] Comment on above: Performed By: #### B MP #### [facility] [address] [place] [address] Dr. Hugo Yang Urea nitrogen/Creatinin e [Mass ratio] 27.6 mg/mg Normal [facility] Comment on above: Performed By: #### B MP #### [facility] [address] [place] [address] Dr. Hugo Yang TSHon 06-28-2021 TSH 3.067 uIU/mL Normal 0.358-3.740 [facility] Comment on above: Performed By: #### F T3, TSH #### [facility] [address] [place] [address] Dr. Hugo Yang TSH RANGE SEE BELOW Normal [facility] Comment on above: Result Comment: <0.3 4 UIU/ml HYPERTHYROID 0.34-5.60 UIU/ml EUTHYROID >5.60 UIU/ml HYPOTHYROID Performed By: #### F T3, TSH #### [facility] [address], [place] [address] Dr. Hugo Yang Cardiovascular Lab Reporton 06-21-2021 Cardiovascular Lab Report [facility] Patient Name: Jasmine [facility] MR #: [id number] Physician: Elizabeth Tejeda, Department of M.D. Medicine Service Date: 06/20/2021 Division of Birthdate: 1940 Cardiology Room #: [facility] Cardiovascular Services [facility] [address]. [place] [address] Cardiovascular Laboratory Report FINAL IMPRESSIONS: 1. 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 2. Otherwise nonobstructive coronary arteries angiographically. 3. Moderately reduced global left ventricular systolic function by noninvasive imaging. 4. Normal right-sided heart pressures and wedge pressure. 5. Mwha-db-vivntipm systemic hypertension. 6. Mildly reduced cardiac output/cardiac [...] bilateral selective coronary angiography, placement of a 6-[place]i MynxGrip closure device. METHODS: After risks, benefits, [...] femoral vein and artery was obtained. A 6-Ku[place]i 11 cm sheath was placed in each. [...] the procedure. All catheters were removed. A 6-[place] MynxGrip closure device was deployed per protocol [...] E (more content not included)... Normal [facility] BNPon 06-18-2021 Natriuretic peptide B (Bld) [Mass/Vol] 3442.0 pg/mL Critically high <=1,800.0 [facility] Comment on above: Result Comment: TEST REPEATED CRITICAL VALUE VERIFIED Performed By: #### L IPID, BNP, CMP #### [facility] [address] [place] [address] Dr. Hugo Yang CBC AUTO DIFFon 06-18-2021 BASO # 0.1 103/ul Normal 0.0-0.1 [facility] Comment on above: Performed By: #### C BC #### [facility] [address] [place] [address] Dr. Hugo Yang Basophils/100 WBC (Bld) 0.5 % Normal 0.2-2.0 [facility] Comment on above: Performed By: #### C BC #### [facility] [address] [place] [address] Dr. Hugo Yang EO # 0.3 103/ul Normal 0.0-0.7 [facility] Comment on above: Performed By: #### C BC #### [facility] [address] [place] [address] Dr. Hugo Yang Eosinophils/100 WBC (Bld) 2.3 % Normal 0.9-7.0 [facility] Comment on above: Performed By: #### C BC #### [facility] [address] [place] [address] Dr. Hugo Yang Erythrocyte distribution width (RBC) [Ratio] 14.5 % Normal 11.0-15.0 [facility] Comment on above: Performed By: #### C BC #### [facility] [address] [place] [address] Dr. Hugo Yang Hematocrit (Bld) [Volume fraction] 42.3 % Normal 36.0-48.0 [facility] Comment on above: Performed By: #### C BC #### [facility] [address] [place] [address] Dr. Hugo Yang Hemoglobin (Bld) [Mass/Vol] 13.5 g/dL Normal 12.0-16.0 [facility] Comment on above: Performed By: #### C BC #### [facility] [address] [place] [address] Dr. Hugo Yang IG # 0.05 10e3/ul Critically high 0.00-0.03 [facility] Comment on above: Performed By: #### C BC #### [facility] [address] [place] [address] Dr. Hugo Yang IG % 0.4 % Normal 0.0-0.5 [facility] Comment on above: Performed By: #### C BC #### [facility] [address] [place] [address] Dr. Hugo Yang LYMPH # 1.5 103/ul Normal 1.2-3.8 [facility] Comment on above: Performed By: #### C BC #### [facility] [address] [place] [address] Dr. Hugo Yang Lymphocytes/100 WBC (Bld) 12.9 % Critically low 20.5-60.0 [facility] Comment on above: Performed By: #### C BC #### [facility] [address] [place] [address] Dr. Hugo Yang MANUAL DIFF REQ NO Normal [facility] Comment on above: Performed By: #### C BC #### [facility] [address] [place] [address] Dr. Hugo Yang MCH (RBC) [Entitic mass] 30.4 pg Normal 26.7-34.0 [facility] Comment on above: Performed By: #### C BC #### [facility] [address] [place] [address] Dr. Hugo Yang MCHC (RBC) [Mass/Vol] 31.9 g/dL Normal 29.9-35.2 [facility] Comment on above: Performed By: #### C BC #### [facility] [address] [place] [address] [address] Hugo Yang MCV (RBC) [Entitic vol] 95.3 fL Normal 81.0-99.0 [facility] Comment on above: Performed By: #### C BC #### [facility] [address] [place] [address] [address] Hugo Yang MONO # 0.7 103/ul Normal 0.3-0.8 [facility] Comment on above: Performed By: #### C BC #### [facility] [address] [place] [address] [address] Hugo Yang Monocytes/100 WBC (Bld) 6.2 % Normal 1.7-12.0 [facility] Comment on above: Performed By: #### C BC #### [facility] [address] [place] [address] Dr. Hugo Yang NEUT # 8.8 103/ul Critically high 1.4-6.5 [facility] Comment on above: Performed By: #### C BC #### [facility] [address] [place] [address] Dr. Hugo Yang Neutrophils/100 WBC (Bld) 77.7 % Critically high 43.0-75.0 [facility] Comment on above: Performed By: #### C BC #### [facility] [address] [place] [address] [address] Hugo Yang Platelet mean volume (Bld) [Entitic vol] 10.4 fL Normal 9.5-13.5 [facility] Comment on above: Performed By: #### C BC #### [facility] [address] [place] [address] [address] Hugo Yang PLT 199 103/ul Normal 150-450 [facility] Comment on above: Performed By: #### C BC #### [facility] [address] [place] [address] [address] Hugo Yang RBC 4.44 106/ul Normal 4.20-5.40 [facility] Comment on above: Performed By: #### C BC #### [facility] [address] [place] [address] [address] Hugo Yang WBC 11.3 103/ul Critically high 4.0-11.0 [facility] Comment on above: Performed By: #### C BC #### [facility] [address] [place] [address] [address] Hugo Yang [facility]on SARS-CoV-2 (COVID-19) RNA SONA+probe Ql (Unsp spec) Not detected Normal NOT DETECTED [facility] Comment on above: Result Comment: This test is not yet approved or cleared by the [place] FDA. When there are no FDA-approved or cleared tests available, and other criteria are met, FDA can make tests available under an emergency access mechanism called an Emergency Use Authorization (EUA). The EUA for this test is supported by the Anatomic Pathology Assistant of Health and Human Service's (HHS's) declaration [...] Performed By: #### F T3, TSH #### [facility] [address] [place] [address] [address] Hugo Yang LIPID PROFILEon 06-18-2021 CHOL-HDL RATIO NORM SEE BELOW Normal [facility] Comment on above: Result Comment: 3.3 - 4.4 LOW RISK 4.4 - 7.1 AVERAGE RISK 7.1 - 11.0 MODERATE RISK >11.0 HIGH RISK Performed By: #### L IPID, BNP, CMP #### [facility] [address] [place] [address] [address] Hugo Yang Cholesterol [Mass/Vol] 127 mg/dL Normal <=200 [facility] Comment on above: Performed By: #### L IPID, BNP, CMP #### [facility] [address] [place] [address] [address] Hugo Yang Cholesterol in HDL [Mass/Vol] 60 mg/dL Normal 40-60 [facility] Comment on above: Performed By: #### L IPID, BNP, CMP #### [facility] [address] [place] [address] [address] Hugo Yang Cholesterol in LDL [Mass/Vol] 47.4 mg/dL Normal [facility] Comment on above: Performed By: #### L IPID, BNP, CMP #### [facility] [address] [place] [address] [address] Hugo Yang Cholesterol.total/ Cholesterol in HDL [Mass ratio] 2.1 {ratio} Normal [facility] Comment on above: Performed By: #### L IPID, BNP, CMP #### [facility] [address] [place] [address] [address] Hugo Yang HDL NORMAL > or = 60 mg/dl - LO W CARDIOVASCULAR RISK <40 mg/dl - HIGH CARDIOVASCULAR RISK Normal [facility] Comment on above: Performed By: #### L IPID, BNP, CMP #### [facility] [address] [place] [address] [address] Hugo Yang LDL CALC NORMAL SEE BELOW Normal [facility] Comment on above: Result Comment: <100 mg/dl OPTIMAL 100 - 129 mg/dl NEAR OR ABOVE OPTIMAL 130 - 159 mg/dl BORDERLINE HIGH 160 - 189 mg/dl HIGH >190 mg/dl VERY HIGH Performed By: #### L IPID, BNP, CMP #### [facility] [address] [place] [address] [address] Hugo Yang Triglyceride [Mass/Vol] 98 mg/dL Normal <=150 [facility] Comment on above: Performed By: #### L IPID, BNP, CMP #### [facility] [address] [place] [address] [address] Hugo Yang VLDL CALC 19.6 mg/dL Normal [facility] Comment on above: Performed By: #### L IPID, BNP, CMP #### [facility] [address] [place] [address] [address] Hugo Yang PROF 14(COMP METB)on 022 Albumin [Mass/Vol] 4.0 g/dL Normal 3.4-5.0 [facility] Comment on above: Performed By: #### L IPID, BNP, CMP #### [facility] [address] [place] [address] [address] Hugo Yang Albumin/Globulin [Mass ratio] 1.3 {ratio} Normal [facility] Comment on above: Performed By: #### L IPID, BNP, CMP #### [facility] [address] [place] [address] [address] Hugo Yang ALP [Catalytic activity/Vol] 82 U/L Normal 46-116 [facility] Comment on above: Performed By: #### L IPID, BNP, CMP #### [facility] [address] [place] [address] [address] Hugo Yang ALT [Catalytic activity/Vol] 52 U/L Normal 14-59 [facility] Comment on above: Performed By: #### L IPID, BNP, CMP #### [facility] [address] [place] [address] [address] Hugo Yang Anion gap [Moles/Vol] 12.9 mmol/L Normal [facility] Comment on above: Performed By: #### L IPID, BNP, CMP #### [facility] [address] [place] [address] [address] Hugo Yang AST [Catalytic activity/Vol] 40 U/L Critically high 15-37 [facility] Comment on above: Performed By: #### L IPID, BNP, CMP #### [facility] [address] [place] [address] [address] Hugo Yang Bilirubin [Mass/Vol] 1.7 mg/dL Critically high 0.2-1.0 [facility] Comment on above: Performed By: #### L IPID, BNP, CMP #### [facility] [address] [place] [address] [address] Hugo Yang Calcium [Mass/Vol] 9.2 mg/dL Normal 8.5-10.1 [facility] Comment on above: Performed By: #### L IPID, BNP, CMP #### [facility] [address] [place] [address] [address] Hugo Yang Chloride [Moles/Vol] 103 mmol/L Normal 98-107 [facility] Comment on above: Performed By: #### L IPID, BNP, CMP #### [facility] [address] [place] [address] [address] Hugo Yang CO2 [Moles/Vol] 28.9 mmol/L Normal 21.0-32.0 [facility] Comment on above: Performed By: #### L IPID, BNP, CMP #### [facility] [address] [place] [address] Dr. Hugo Yang Creatinine [Mass/Vol] 1.12 mg/dL Critically high 0.55-1.02 [facility] Comment on above: Performed By: #### L IPID, BNP, CMP #### [facility] [address] [place] [address] Dr. Hugo Yang EGFR-AF VINCENTIAN 57 mL/min/1.73m2 Critically low >=60 [facility] Comment on above: Performed By: #### L IPID, BNP, CMP #### [facility] [address] [place] [address] Dr. Hugo Yang EGFR-NON AF VINCENTIAN 47 mL/min/1.73m2 Critically low >=60 [facility] Comment on above: Performed By: #### L IPID, BNP, CMP #### [facility] [address] [place] [address] Dr. Hugo Yang Globulin (S) [Mass/Vol] 3.1 g/dL Normal [facility] Comment on above: Performed By: #### L IPID, BNP, CMP #### [facility] [address] [place] [address] Dr. Hugo Yang Glucose [Mass/Vol] 128 mg/dL Critically high 74-106 [facility] Comment on above: Performed By: #### L IPID, BNP, CMP #### [facility] [address] [place] [address] [address] Hugo Yang Potassium [Moles/Vol] 4.8 mmol/L Normal 3.5-5.1 [facility] Comment on above: Performed By: #### L IPID, BNP, CMP #### [facility] [address] [place] [address] Dr. Hugo Yang Protein [Mass/Vol] 7.1 g/dL Normal 6.1-8.2 [facility] Comment on above: Performed By: #### L IPID, BNP, CMP #### [facility] [address] [place] [address] [address] Hugo Yang Sodium [Moles/Vol] 140 mmol/L Normal 136-145 [facility] Comment on above: Performed By: #### L IPID, BNP, CMP #### [facility] [address] [place] [address] Dr. Hugo Yang Urea nitrogen [Mass/Vol] 23.0 mg/dL Critically high 7.0-18.0 [facility] Comment on above: Performed By: #### L IPID, BNP, CMP #### [facility] [address] [place] [address] Dr. Hugo Yang Urea nitrogen/Creatinin e [Mass ratio] 20.5 mg/mg Normal [facility] Comment on above: Performed By: #### L IPID, BNP, CMP #### [facility] [address] [place] [address] Dr. Hugo Yang ECHOCARDIO M/2D COMPLETEon 0 06-12-2021 ECHOCARDIO M/2D COMPLETE Patient: LLUVIA MORENO Exam Date: 06/12/2021 : 1940 Gender:F Ordering : SHELDON GOTTLIEB Admission #: [id number] Family : DR OLE YANG M.D. Order #: [id number] CLICK HERE TO VIEW EXAM ECHOCARDIOGRAM REPORT [...] Area(A4C): 31.00 cm2 Left Atrium Systolic Volume(A2C): 905030 mm3 Left Atrium Systolic Volume(A4C): 308786 mm3 Mitral Valve MV E to A [...] M.D. on 06/12/2021 at 16:27 Normal [facility] CBC AUTO DIFFon 06-04-2021 BASO # 0.0 103/ul Normal 0.0-0.1 [facility] Comment on above: Performed By: #### C BC #### [facility] [address] [place] [address] Dr. Hugo Yang Basophils/100 WBC (Bld) 0.6 % Normal 0.2-2.0 [facility] Comment on above: Performed By: #### C BC #### [facility] [address] [place] [address] Dr. Hugo Yang EO # 0.2 103/ul Normal 0.0-0.7 [facility] Comment on above: Performed By: #### C BC #### [facility] [address] [place] [address] Dr. Hugo Yang Eosinophils/100 WBC (Bld) 3.0 % Normal 0.9-7.0 [facility] Comment on above: Performed By: #### C BC #### [facility] [address] [place] [address] Dr. Hugo Yang Erythrocyte distribution width (RBC) [Ratio] 13.7 % Normal 11.0-15.0 [facility] Comment on above: Performed By: #### C BC #### [facility] [address] [place] [address] Dr. Hugo Yang Hematocrit (Bld) [Volume fraction] 42.1 % Normal 36.0-48.0 [facility] Comment on above: Performed By: #### C BC #### [facility] [address] [place] [address] Dr. Hugo Yang Hemoglobin (Bld) [Mass/Vol] 13.3 g/dL Normal 12.0-16.0 [facility] Comment on above: Performed By: #### C BC #### [facility] [address] [place] [address] Dr. Hugo Yang IG # 0.02 10e3/ul Normal 0.00-0.03 [facility] Comment on above: Performed By: #### C BC #### [facility] [address] [place] [address] Dr. Hugo Yang IG % 0.3 % Normal 0.0-0.5 [facility] Comment on above: Performed By: #### C BC #### [facility] [address] [place] [address] Dr. Hugo Yang LYMPH # 1.9 103/ul Normal 1.2-3.8 [facility] Comment on above: Performed By: #### C BC #### [facility] [address] [place] [address] Dr. Hugo Yang Lymphocytes/100 WBC (Bld) 29.2 % Normal 20.5-60.0 [facility] Comment on above: Performed By: #### C BC #### [facility] [address] [place] [address] Dr. Hugo Yang MANUAL DIFF REQ NO Normal [facility] Comment on above: Performed By: #### C BC #### [facility] [address] [place] [address] Dr. Hugo Yang MCH (RBC) [Entitic mass] 30.4 pg Normal 26.7-34.0 [facility] Comment on above: Performed By: #### C BC #### [facility] [address] [place] [address] Dr. Hugo Yang MCHC (RBC) [Mass/Vol] 31.6 g/dL Normal 29.9-35.2 [facility] Comment on above: Performed By: #### C BC #### [facility] [address] [place] [address] Dr. Hugo Yang MCV (RBC) [Entitic vol] 96.3 fL Normal 81.0-99.0 [facility] Comment on above: Performed By: #### C BC #### [facility] [address] [place] [address] Dr. Hugo Yang MONO # 0.6 103/ul Normal 0.3-0.8 [facility] Comment on above: Performed By: #### C BC #### [facility] [address] [place] [address] Dr. Hugo Yang Monocytes/100 WBC (Bld) 8.5 % Normal 1.7-12.0 [facility] Comment on above: Performed By: #### C BC #### [facility] [address] [place] [address] Dr. Hugo Yang NEUT # 3.8 103/ul Normal 1.4-6.5 [facility] Comment on above: Performed By: #### C BC #### [facility] [address] [place] [address] Dr. Hugo Yang Neutrophils/100 WBC (Bld) 58.4 % Normal 43.0-75.0 [facility] Comment on above: Performed By: #### C BC #### [facility] [address] [place] [address] Dr. Hugo Yang Platelet mean volume (Bld) [Entitic vol] 10.9 fL Normal 9.5-13.5 [facility] Comment on above: Performed By: #### C BC #### [facility] [address] [place] [address] Dr. Hugo Yang PLT 163 103/ul Normal 150-450 [facility] Comment on above: Performed By: #### C BC #### [facility] [address] [place] [address] [address] Hugo Yang RBC 4.37 106/ul Normal 4.20-5.40 [facility] Comment on above: Performed By: #### C BC #### [facility] [address] [place] [address] [address] Hugo Yang WBC 6.6 103/ul Normal 4.0-11.0 [facility] Comment on above: Performed By: #### C BC #### [facility] [address] [place] [address] [address] Hugo Yang PROF CHEM 8 (BAS METB)on Anion gap [Moles/Vol] 13.9 mmol/L Normal [facility] Comment on above: Performed By: #### F T3, TSH #### [facility] [address] [place] [address] Dr. Hugo Yang Calcium [Mass/Vol] 9.5 mg/dL Normal 8.5-10.1 [facility] Comment on above: Performed By: #### F T3, TSH #### [facility] [address] [place] [address] Dr. Hugo Yang Chloride [Moles/Vol] 105 mmol/L Normal 98-107 [facility] Comment on above: Performed By: #### F T3, TSH #### [facility] [address] [place] [address] [address] Hugo Yang CO2 [Moles/Vol] 27.7 mmol/L Normal 22.0-30.0 [facility] Comment on above: Performed By: #### F T3, TSH #### [facility] [address] [place] [address] Dr. Hugo Yang Creatinine [Mass/Vol] 1.19 mg/dL Critically high 0.52-1.04 [facility] Comment on above: Performed By: #### F T3, TSH #### [facility] [address] [place] [address] Dr. Hugo Yang EGFR-AF VINCENTIAN 53 mL/min/1.73m2 Critically low >=60 [facility] Comment on above: Performed By: #### F T3, TSH #### [facility] [address] [place] [address] [address] Hugo Yang EGFR-NON AF VINCENTIAN 44 mL/min/1.73m2 Critically low >=60 [facility] Comment on above: Performed By: #### F T3, TSH #### [facility] [address] [place] [address] [address] Hugo Yang Glucose [Mass/Vol] 112 mg/dL Critically high 74-106 [facility] Comment on above: Performed By: #### F T3, TSH #### [facility] [address] [place] [address] Dr. Hugo Yang Potassium [Moles/Vol] 4.6 mmol/L Normal 3.4-5.0 [facility] Comment on above: Performed By: #### F T3, TSH #### [facility] [address] [place] [address] [address] Hugo Yang Sodium [Moles/Vol] 142 mmol/L Normal 137-145 [facility] Comment on above: Performed By: #### F T3, TSH #### [facility] [address] [place] [address] Dr. Hugo Yang Urea nitrogen [Mass/Vol] 28.0 mg/dL Critically high 7.0-18.0 [facility] Comment on above: Performed By: #### F T3, TSH #### [facility] [address] [place] [address] Dr. Hugo Yang Urea nitrogen/Creatinin e [Mass ratio] 23.5 mg/mg Normal [facility] Comment on above: Performed By: #### F T3, TSH #### [facility] [address] [place] [address] Dr. Hugo Yang TROPONIN, HIGH SENSITIVITYon 06-04-2021 HSTROP 27.1 pg/mL Normal 4.0-35.5 [facility] Comment on above: Result Comment: CUT- OFF POINTS HAVE BEEN ESTABLISHED BASED ON THE FOURTH UNIVERSAL DEFINITIONS OF MYOCARDIAL INFARCTION. THE UPPER REFERENCE LIMIT (URL) OF TROPONIN, DEFINED THE 99TH PERCENTILE OF cTnI DISTRIBUTION IN A REFERENCE POPULATION, HAS BEEN CONFIRMED THE DECISION THRESHOLD FOR GA DIAGNOSIS. Performed By: #### F T3, TSH #### [facility] [address], [place] [address] Dr. Hugo Yang XR CHEST 1 Von [...] JOEL GARCIA Date: 2021-06-04 11:09 Normal [facility] Cardiovascular Lab Reporton 12-28-2020 Cardiovascular Lab Report [facility] Patient Name: [facility] MR #: [id number] Physician: Keanu Islas MD Department of Service Date: 12/28/2020 Medicine Birthdate: 1940 Division of Room #: [facility] Cardiology Adult Cardiovascular Services [place] [address] Cardiovascular Laboratory Report AV NODE ABLATION PROCEDURE [...] prepped and draped. Under ultrasound guidance, an 8-[place]i venous access was procured, and a short [...] Islas MD Date Trans: 12/28/2020 04:43 P/donna [id number] cc: Ole Yang M.D. 3 [facility] [address] Normal [facility] Cardiovascular Lab Reporton 11-19-2020 Cardiovascular Lab Report [facility] #: [id number] Physician: Keanu Islas MD Department of Service Date: 11/19/2020 Medicine Birthdate: 1940 Division of Room #: Cardiology Adult Cardiovascular Services [address] [place] [address] Cardiovascular Laboratory Report PACEMAKER IMPLANT PROCEDURE NOTE DATE OF PROCEDURE: 11/19/20 PERFORMING PHYSICIAN: Dr. Keanu Islas CONSENT: Patient LOCATION: EP Lab PROCEDURE PERFORMED: 1. Implantation of pacemaker ([employer]) 2. Ultrasound guided venous access INDICATIONS: [...] using modified seldinger technique using a 5 Kuwaiti micro-puncture needle on one occasion and 0.35 wire was placed. Local infiltration of 1% Lidocaine was performed, and an incision was created in the left upper chest. Dissection was then performed using cautery down to the fascial plane above the muscle. A small pocket was created for the device. 8 [place]i Safesheath was placed over the wire. Then a His sheath was advanced over a glide wire into the right ventricle. The wire and dilator was then removed. An active fixation [employer] pacing lead was then delivered through the His sheath to the right ventricle. I identified an area where pacing revealed a QRS of 120ms in unipolar configuration. After confirmation of lead position on orthogonal views (PATEL and THAI) to confirm septal position, the screw was [...] immediate procedural complications were noted. Device info: [employer] Accolade MRI EL SR IS1 Model# L310 Serial# [id number] RV lead: Model# [id number] [id number] (59cms) Serial# [id number] Sensin.3mV Threshold: 0.6V@0.4ms Impedance: 655 Ohms POST [...] 11/19/2020 (more content not included)... Normal [facility] Vital Signs Date Time Vital Sign Value Performing Clinician Facility 06-02-2024 09:47-0400 Body height 167.6 cm Dipti Hemmer PA Work Phone: [facility] 06-02-2024 09:47-0400 Body mass index (BMI) [Ratio] 28.47 kg/m2 Dipti Hemmer PA Work Phone: [facility] 06-02-2024 09:47-0400 Body temperature 99.19 [degF] Dipti Hemmer PA Work Phone: [facility] 06-02-2024 09:47-0400 Body weight 80.02 kg Dipti Hemmer PA Work Phone: [facility] 06-02-2024 09:47-0400 Diastolic blood pressure 64 mm[Hg] Dipti Hemmer PA Work Phone: [facility] 06-02-2024 09:47-0400 Heart rate 70 /min Dipti Hemmer PA Work Phone: [facility] 06-02-2024 09:47-0400 Respiratory rate 16 /min Dipti Hemmer PA Work Phone: [facility] 06-02-2024 09:47-0400 SaO2% (BldA) [Mass fraction] 99 % Dipti Hemmer PA Work Phone: [facility] 06-02-2024 09:47-0400 Systolic blood pressure 102 mm[Hg] Dipti VEGA Work Phone: [facility] 06-01-2024 10:07-0400 Body height 170.2 cm Teri Martinez MD Work Phone: [facility] 06-01-2024 10:07-0400 Body mass index (BMI) [Ratio] 27.88 kg/m2 Teri Martinez MD Work Phone: [facility] 06-01-2024 10:07-0400 Body weight 80.74 kg Teri Martinez MD Work Phone: [facility] 06-01-2024 10:07-0400 Diastolic blood pressure 82 mm[Hg] Teri Martinez MD Work Phone: [facility] 06-01-2024 10:07-0400 Heart rate 70 /min Teri Martinez MD Work Phone: [facility] 06-01-2024 10:07-0400 Respiratory rate 16 /min Teri Martinez MD Work Phone: [facility] 06-01-2024 10:07-0400 SaO2% (BldA) [Mass fraction] 89 % Teri Martinez MD Work Phone: [facility] 06-01-2024 10:07-0400 Systolic blood pressure 142 mm[Hg] Teri Martinez MD Work Phone: [facility] 03-30-2024 09:57-0500 Body height 167.6 cm Ole Yang MD Work Phone: [facility] 03-30-2024 09:57-0500 Body mass index (BMI) [Ratio] 28.25 kg/m2 Ole Yang MD Work Phone: [facility] 03-30-2024 09:57-0500 Body weight 79.38 kg Ole Yang MD Work Phone: [facility] 03-30-2024 09:57-0500 Diastolic blood pressure 78 mm[Hg] Ole Yang MD Work Phone: [facility] 03-30-2024 09:57-0500 Heart rate 69 /min Ole Yang MD Work Phone: [facility] 03-30-2024 09:57-0500 SaO2% (BldA) [Mass fraction] 98 % Ole Yang MD Work Phone: [facility] 03-30-2024 09:57-0500 Systolic blood pressure 128 mm[Hg] Ole Yang MD Work Phone: [facility] 02-25-2024 10:03-0500 Body height 167.6 cm Dipti Hemmer PA Work Phone: [facility] 02-25-2024 10:03-0500 Body mass index (BMI) [Ratio] 28.89 kg/m2 Dipti Hemmer PA Work Phone: [facility] 02-25-2024 10:03-0500 Body weight 81.19 kg Dipti Hemmer PA Work Phone: [facility] 02-25-2024 10:03-0500 Diastolic blood pressure 66 mm[Hg] Dipti Hemmer PA Work Phone: [facility] 02-25-2024 10:03-0500 Heart rate 74 /min Dipti Hemmer PA Work Phone: [facility] 02-25-2024 10:03-0500 Respiratory rate 20 /min Dipti Hemmer PA Work Phone: [facility] 02-25-2024 10:03-0500 SaO2% (BldA) [Mass fraction] 99 % Dipti Hemmer PA Work Phone: [facility] 02-25-2024 10:03-0500 Systolic blood pressure 108 mm[Hg] Dipti Hemmer PA Work Phone: [facility] 12-02-2023 10:08-0400 Body height 167.6 cm Teri Martinez MD Work Phone: [facility] 12-02-2023 10:08-0400 Body mass index (BMI) [Ratio] 28.73 kg/m2 Teri Martinez MD Work Phone: [facility] 12-02-2023 10:08-0400 Body weight 80.74 kg Teri Martinez MD Work Phone: [facility] 12-02-2023 10:08-0400 Diastolic blood pressure 70 mm[Hg] Teri Martinez MD Work Phone: [facility] 12-02-2023 10:08-0400 Heart rate 87 /min Teri Martinez MD Work Phone: [facility] 12-02-2023 10:08-0400 Respiratory rate 18 /min Teri Martinez MD Work Phone: [facility] 12-02-2023 10:08-0400 Systolic blood pressure 102 mm[Hg] Teri Martinez MD Work Phone: [facility] 11-26-2023 09:56-0400 Body height 170.2 cm Dipti Hemmer PA Work Phone: [facility] 11-26-2023 09:56-0400 Body mass index (BMI) [Ratio] 27.82 kg/m2 Dipti Hemmer PA Work Phone: [facility] 11-26-2023 09:56-0400 Body weight 80.56 kg Dipti Hemmer PA Work Phone: [facility] 11-26-2023 09:56-0400 Diastolic blood pressure 74 mm[Hg] Dipti Hemmer PA Work Phone: [facility] Comment on above: home BP monitor 141/ 81 11-26-2023 09:56-0400 Heart rate 71 /min Dipti Hemmer PA Work Phone: [facility] 11-26-2023 09:56-0400 Respiratory rate 16 /min Dipti Hemmer PA Work Phone: [facility] 10-10-2024 09:56-0400 SaO2% (BldA) [Mass fraction] 99 % Dipti VEGA Work Phone: [facility] 11-26-2023 09:56-0400 Systolic blood pressure 128 mm[Hg] iDpti VEGA Work Phone: [facility] Comment on above: home BP monitor 141/ 81 02-11-2023 14:43-0500 Body height 170.2 cm Ole Yang MD Work Phone: [facility] 02-11-2023 14:43-0500 Body mass index (BMI) [Ratio] 26.94 kg/m2 Ole Yang MD Work Phone: [facility] 02-11-2023 14:43-0500 Body weight 78.02 kg Ole Yang MD Work Phone: [facility] 02-11-2023 14:43-0500 Diastolic blood pressure 70 mm[Hg] Ole Yang MD Work Phone: [facility] 02-11-2023 14:43-0500 Heart rate 76 /min lOe Yang MD Work Phone: [facility] 02-11-2023 14:43-0500 Systolic blood pressure 126 mm[Hg] Ole Yang MD Work Phone: [facility] Healthcare Encounters Encounter Date Encounter Type Care Provider Facility Start: 07-19-2024 End: 07-19-2024 ambulatory [facility] Start: 07-07-2024 End: 07-07-2024 ambulatory DIPTI ANDERSON Not Available Start: 07-01-2024 ambulatory [facility] Start: 06-02-2024 End: 06-02-2024 Patient encounter procedure Dipti VEGA Work Phone: [facility] Comment on above: Medicare annual well ness visit, subsequent (Primary Dx); ACP (advance care planning); Estrogen deficiency; Pulmonary emphysema, unspecified emphysema type (CMS/HCC); Dyspnea on exertion; Hypoxia; Mild intermittent asthma without complication (CMS/HCC); Panlobular emphysema (CMS/HCC); Supplemental oxygen dependent; Benign hypertensive heart disease with heart failure (CMS/HCC); Chronic atrial fibrillation, unspecified (CMS/HCC); Chronic combined systolic (congestive) and diastolic (congestive) heart failure; Chronic systolic dysfunction of left ventricle; 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 (CMS/HCC); Primary hypertension (CMS/HCC); ICD (implantable cardioverter-defibrillator) in place; Non-rheumatic mitral regurgitation; Status post biventricular cardiac pacemaker insertion; Chronic kidney disease, stage 3b (HCC) (CMS/HCC); Age-related osteoporosis without current pathological fracture (CMS/HCC); Arthritis of right shoulder region; Joint derangement of shoulder region; Primary osteoarthritis involving multiple joints; Rotator cuff syndrome of right shoulder; Hyperthyroidism (CMS/HCC); Impaired fasting glucose; Overweight (BMI 25.0-29.9); Primary ovarian failure; Anxiety; Current use of skilled nursing anticoagulation; Diplopia; Elevated liver enzymes; Frequent falls; History of stroke without residual deficits; Memory changes; 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); COPD exacerbation (CMS/HCC) Start: 06-02-2024 End: 06-02-2024 ambulatory DIPTI ANDERSON Not Available Start: 06-01-2024 End: 06-01-2024 BamDeluxeBoxheet Teri Martinez MD Work Phone: [facility] Start: 06-01-2024 End: 06-01-2024 [employer] flowsheet Trei Martinez MD Work Phone: [facility] Start: 06-01-2024 End: 06-01-2024 Office outpatient visit 25 minutes Teri Martinez MD Work Phone: [facility] Comment on above: Hyperthyroidism (CMS /HCC) (Primary Dx); Multinodular goiter (CMS/HCC); Longstanding persistent atrial fibrillation (CMS/HCC) Start: 06-01-2024 End: 06-01-2024 ambulatory TERI MARTINEZ Not Available Start: 05-25-2024 ambulatory [facility] Start: 05-23-2024 End: 05-23-2024 Clinisync Result Encounter Generic External Data Provider [facility] External [facility] Unsolicited Start: 05-23-2024 End: 05-23-2024 Clinisync Result Encounter Generic External Data Provider [facility] External Department Unsolicited Start: 05-12-2024 End: 05-13-2024 Refill Annalise Paniagua JUAN [facility] Comment on above: Anxiety Start: 04-25-2024 ambulatory [facility] Start: 03-30-2024 End: 03-30-2024 Bamboo flowsheet Ole Yang MD Work Phone: [facility] Start: 03-30-2024 End: 03-30-2024 Bamboo flowsheet Ole Yang MD Work Phone: [facility] Start: 03-30-2024 End: 03-30-2024 Office outpatient visit 10 minutes Ole Yang MD Work Phone: [facility] Comment on above: Pulmonary emphysema, unspecified emphysema type (CMS/HCC) (Primary Dx); Age-related osteoporosis without current pathological fracture (CMS/HCC) Start: 03-30-2024 End: 03-30-2024 ambulatory OLE YANG Not Available Start: 02-29-2024 ambulatory [facility] Start: 02-25-2024 End: 02-25-2024 Bamboo flowsheet Dipti VEGA Work Phone: [facility] Start: 02-25-2024 End: 02-25-2024 Bamboo flowsheet Dipti VEGA Work Phone: [facility] Start: 02-25-2024 End: 02-25-2024 Office outpatient visit 25 minutes Dipti VEGA Work Phone: [facility] Comment on above: Panlobular emphysema (CMS/HCC) (Primary Dx); Benign hypertensive heart disease with heart failure (CMS/HCC); Impaired fasting glucose; 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 (CMS/HCC); Age-related osteoporosis without current pathological fracture (CMS/HCC); Cardiomyopathy, unspecified (CMS/HCC); Longstanding persistent atrial fibrillation (CMS/HCC); Chronic obstructive pulmonary disease, unspecified (CMS/HCC); Chronic kidney disease, stage 3b (HCC) (CMS/HCC); 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); Chronic atrial fibrillation, unspecified (CMS/HCC); Supplemental oxygen dependent Start: 02-25-2024 End: 02-25-2024 ambulatory DIPTI ANDERSON Not Available Start: 02-04-2024 ambulatory [facility] Start: 01-25-2024 End: 01-25-2024 ambulatory [facility] Start: 12-08-2023 ambulatory [facility] Start: 12-03-2023 ambulatory [facility] Start: 12-02-2023 End: 12-02-2023 Bamboo flowstod Martinez MD Work Phone: [facility] Start: 12-02-2023 End: 12-02-2023 Bamboo flowstod Martinez MD Work Phone: [facility] Start: 12-02-2023 End: 12-02-2023 Office outpatient visit 25 minutes Teri Martinez MD Work Phone: [facility] Comment on above: Hyperthyroidism (CMS /HCC) [...] Comment on above: Anxiety Start: 10-26-2023 ambulatory [facility] Start: 10-16-2023 ambulatory [facility] Start: 10-16-2023 Encounter for preprocedural cardiovascular examination [facility] Start: 09-01-2023 End: 09-01-2023 ambulatory DIPTI ANDERSON Not Available Start: 08-26-2023 End: 08-26-2023 ambulatory DIPTI ANDERSON Not Available Start: 08-14-2023 ambulatory NILE GARNICA [facility] Start: 08-07-2023 End: 08-07-[address] Start: 08-04-2023 End: 08-04-2023 ambulatory [facility] Start: 07-27-2023 ambulatory [facility] Start: 07-22-2023 End: 07-22-2023 ambulatory OLE YANG Not Available Start: 04-27-2023 End: 04-27-2023 [facility] Start: 04-27-2023 End: 04-27-2023 Office outpatient visit 15 minutes Eliel Nichols OD Work Phone: [facility] Comment on above: Esotropia of right e ye (Primary Dx); Right abducens nerve palsy; Double vision Start: 02-11-2023 End: 02-11-2023 Office outpatient visit 15 minutes Ole Yang MD Work Phone: [facility] Comment on above: Leg hematoma, right, initial encounter (Primary Dx); 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; Localized edema Start: 05-14-2022 End: 05-15-2022 [facility] Facility:H1 Start: 03-19-2022 End: 03-20-[address] DIPTI ANDERSON Facility:H1 Start: 12-23-2021 End: 12-24-2021 ambulatory SHELDON GOTTLIEB Facility:[facility]1 Start: 11-25-2021 End: 11-26-2021 [facility] Facility:[facility] Start: 09-04-2021 End: 09-05-2021 ambulatory SHELDON CHERY Facility:H1 Start: 08-23-2021 Encounter for other preprocedural examination [facility] Start: 08-23-2021 Encounter for preprocedural laboratory examination [facility] Start: 08-22-2021 End: 08-23-2021 ambulatory KEANU ISLAS Facility:H1 Start: 08-21-2021 End: 08-22-2021 ambulatory KEANU ISLAS Facility:[facility] Start: 08-20-2021 End: 08-21-2021 ambulatory SHELDON PATELCKER Facility:H1 Start: 08-20-2021 End: 08-21-2021 Encounter for other preprocedural examination SHELDON CHERY Facility:[facility]1 Start: 07-30-2021 End: 07-31-2021 ambulatory SHELDON CHERY Facility:[facility] Start: 06-28-2021 End: 06-29-2021 ambulatory MERYL ANTNO Facility:[facility] Start: 06-20-2021 Encounter for other specified special examinations [facility] Start: 06-18-2021 End: 06-19-2021 ambulatory SHELDON CHERY Facility:[facility]1 Start: 06-18-2021 End: 06-19-2021 Encounter for other specified special examinations MERYL ANTON Facility:[facility]1 Start: 06-17-2021 End: 06-17-[address] MAYRA CHOI Facility:[facility]1 Start: 06-12-2021 End: 06-13-2021 ambulatory SHELDON GOTTLIEB Facility:[facility] Start: 06-04-2021 End: 06-04-2021 ambulatory GABRIEL Leandra GREEN Facility:[facility]1 Start: 12-28-2020 End: 12-29-2020 ambulatory KEANU ISLAS Facility:[facility] Start: 11-19-2020 End: 11-20-2020 ambulatory KEANU COYCKO Facility:[facility] Procedures Date Procedure Procedure Detail Performing Clinician Start: 05-23-2024 ALL T3 FREE Generic Ex ternal Data Provider Start: 05-23-2024 ALL THYROID STIM HORMONE Generic External Data Provider Start: 05-23-2024 ALL THYROXINE (T4) FREE Generic External Data Provider Start: 11-26-2023 ALL THYROXINE (T4) FREE Generic External Data Provider Start: 04-27-2023 Follow-up visit Follow-up ELIEL NICHOLS Plan of Treatment Date Care Activity Detail Author Start: 11-30-2024 End: 11-30-2024 Patient encounter procedure 11/30/2024 10:00 AM EDT Office Visit [facility] [address] [place] [address] Teri Mratinez MD [address] [place] [address] [facility] Start: 08-31-2024 End: 08-31-2024 Patient encounter procedure 08/31/2024 9:30 AM EDT Office Visit [facility] [address] [place] [address] Dipti Anderson PA [address] [place] [address] [facility] Start: 06-02-2024 End: 06-02-2025 DXA Skeletal system Views for bone density DEXA bone density Imaging Routine Estrogen deficiency Expected: 06/02/2024, Expires: 06/02/2025 [facility] Work Phone: Comment on above: Expected: 06/02/2024, Expires: Start: 06-02-2024 End: 06-02-2024 Patient encounter procedure 06/02/2024 9:30 AM EDT Office Visit [facility] [address] [place] [address] Dipti Anderson PA [address] [place] [address] [facility] Start: 06-01-2024 End: 06-01-2025 Thyrotropin [Units/volume] in Serum or Plasma TSH Lab Routine Hyperthyroidism ([facility]/HCC) Expected: 06/01/2024 (Approximate), Expires: 06/01/2025 [facility] Comment on above: Expected: 06/01/2024 (Approximate), Expi res: 06/01/2025 Start: 06-01-2024 End: 06-01-2025 Thyroxine (T4) free [Mass/volume] in Serum or Plasma T4, free Lab Routine Hyperthyroidism ([facility]/HCC) Expected: 06/01/2024 (Approximate), Expires: 06/01/2025 [facility] Comment on above: Expected: 06/01/2024 (Approximate), Expi res: 06/01/2025 Start: 06-01-2024 End: 06-01-2025 Triiodothyronine (T3) Free [Mass/volume] in Serum or Plasma T3, free Lab Routine Hyperthyroidism ([facility]/HCC) Expected: 06/01/2024 (Approximate), Expires: 06/01/2025 [facility] Work Phone: Comment on above: Expected: 06/01/2024 (Approximate), Expi res: 06/01/2025 Start: 06-01-2024 End: 06-01-2024 Patient encounter procedure [facility] Comment on above: Arrived Start: 05-30-2024 End: 05-30-2024 Patient encounter procedure 05/30/2024 9:30 AM EDT Office Visit [facility] [address] [place] [id number] Dipti Anderson PA [address] [place] [address] [facility] Start: 05-26-2024 Medicare Annual Wellness (AWV) Medicare Annual Wellness (AWV) [facility] Start: 04-26-2024 Tobacco Screening Tobacco Screening [facility] Start: 03-30-2024 End: 03-30-2024 Patient encounter procedure 03/30/2024 10:15 AM EST Office Visit [facility] [address] [facility] [address] [place] [address] Ole Yang MD [address] [place] [address] Arrived [facility] Comment on above: Arrived Start: 02-25-2024 End: 02-24-2025 25-hydroxyvitamin D3 [Mass/volume] in Serum or Plasma Vitamin D 25 hydroxy Total Lab Routine 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 (CMS/HCC) Age-related osteoporosis without current pathological fracture (CMS/HCC) Expected: 02/25/2024 (Approximate), Expires: 02/24/2025 [facility] Comment on above: Expected: 02/25/2024 (Approximate), Expi res: 02/24/2025 Start: 02-25-2024 End: 02-24-2025 Basic metabolic 1998 panel - Serum or Plasma Basic metabolic panel Lab Routine Benign hypertensive heart disease with heart failure (CMS/HCC) Impaired fasting glucose Expected: 02/25/2024 (Approximate), Expires: 02/24/2025 [facility] Comment on above: Expected: 02/25/2024 (Approximate), Expi res: 02/24/2025 Start: 02-25-2024 End: 02-24-2025 CBC W Auto Differential panel - Blood CBC and differential Lab Routine Benign hypertensive heart disease with heart failure (CMS/HCC) 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 (CMS/HCC) Expected: 02/25/2024 (Approximate), Expires: 02/24/2025 [facility] Work Phone: Comment on above: Expected: 02/25/2024 (Approximate), Expi res: 02/24/2025 Start: 02-25-2024 End: 02-24-2025 Hemoglobin A1c/Hemoglobin.total in Blood Hemoglobin A1c Lab Routine Impaired fasting glucose Expected: 02/25/2024 (Approximate), Expires: 02/24/2025 [facility] Comment on above: Expected: 02/25/2024 (Approximate), Expi res: 02/24/2025 Start: 02-25-2024 End: 02-24-2025 Lipid 1996 panel - Serum or Plasma Lipid panel Lab Routine 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 (CMS/HCC) Expected: 02/25/2024 (Approximate), Expires: 02/24/2025 [facility] Comment on above: Expected: 02/25/2024 (Approximate), Expi res: 02/24/2025 Start: 02-25-2024 End: 02-25-2024 Patient encounter procedure [facility] Comment on above: Arrived Start: 12-04-2023 Adult BMI Screening Adult BMI Screening [facility] Start: 12-02-2023 End: 12-01-2024 Hepatic function 2000 panel - Serum or Plasma Hepatic function panel Lab Routine Hyperthyroidism (CMS/HCC) Expected: 12/02/2023 (Approximate), Expires: 12/01/2024 [facility] Comment on above: Expected: 12/02/2023 (Approximate), Expi res: 12/01/2024 Start: 12-02-2023 End: 12-01-2024 Thyrotropin [Units/volume] in Serum or Plasma TSH Lab Routine Hyperthyroidism (CMS/HCC) Expected: 12/02/2023 (Approximate), Expires: 12/01/2024 [facility] Comment on above: Expected: 12/02/2023 (Approximate), Expi res: 12/01/2024 Start: 12-02-2023 End: 12-01-2024 Thyroxine (T4) free [Mass/volume] in Serum or Plasma T4, free Lab Routine Hyperthyroidism (CMS/HCC) Expected: 12/02/2023 (Approximate), Expires: 12/01/2024 [facility] Comment on above: Expected: 12/02/2023 (Approximate), Expi res: 12/01/2024 Start: 12-02-2023 End: 12-01-2024 Triiodothyronine (T3) Free [Mass/volume] in Serum or Plasma T3, free Lab Routine Hyperthyroidism (CMS/HCC) Expected: 12/02/2023 (Approximate), Expires: 12/01/2024 [facility] Work Phone: Comment on above: Expected: 12/02/2023 (Approximate), Expi res: 12/01/2024 Start: 12-02-2023 End: 12-02-2023 Patient encounter procedure [facility] Comment on above: Arrived Start: 11-26-2023 End: 11-26-2023 Patient encounter procedure [facility] Comment on above: Arrived Start: 10-18-2023 Influenza vaccination Influenza Vaccine (#1) [facility] Start: 08-17-2007 Fall Risk Screening Fall Risk Screening [facility] Start: 1961 DTaP,Tdap and Td Vaccines (1 - Tdap) DTaP,Tdap and Td Vaccines (1 - Tdap) [facility] Start: 1960 Adult BMI Follow Up Plan Adult BMI Follow Up Plan [facility] Start: 1954 Depression Screening Depression Screening [facility] Start: 1942 Medicare Annual Wellness Visit Medicare Annual Wellness Visit [facility] Immunizations Immunization Date Immunization Notes Care Provider Candace long 12-10-2023 SARS-COV-2 (COVID-19 ) vaccine, mRNA, spike protein, LNP, PF, robert-sucrose, 30 mcg/0.3 mL Dipti Hemtyler PA Work Phone: [facility] 11-26-2023 Influenza, High-dose Seasonal, Quadrivalent, Preservative Free Dipti Anderson PA Work Phone: [facility] 01-01-2023 SARS-COV-2 (COVID-19 ) vaccine, mRNA, spike protein, LNP, PF, robert-sucrose, 30 mcg/0.3 mL Dipti Hemmer PA Work Phone: [facility] 01-01-2023 zoster vaccine recombinant Gregorio VEGA Work Phone: [facility] 12-10-2022 ABRYSVO - Respirator y syncytial virus (RSV), vaccine, bivalent, protein subunit RSV prefusion F, diluent reconstituted, 0.5 mL, PF Dipti Hemmer PA Work Phone: [facility] 11-26-2022 Influenza, Seasonal, Quadrivalent, Adjuvanted Dipti Hemmer PA Work Phone: [facility] 11-26-2022 influenza virus vacc ine, unspecified formulation Dipti Hemmer PA Work Phone: [facility] 04-16-2022 zoster vaccine recombinant K aren Hemmer PA Work Phone: [facility] 12-10-2021 influenza, high dose seasonal, preservative-free Dipti Hemmer PA Work Phone: [facility] 12-10-2021 Moderna SARS-CoV-2 50mcg/0.5mL Booster Dipti Hemmer PA Work Phone: [facility] 01-17-2021 influenza, high dose seasonal, preservative-free Dipti Hemmer PA Work Phone: [facility] 01-10-2020 Seasonal trivalent influenza vaccine, adjuvanted, preservative free Dipti Hemmer PA Work Phone: [facility] 02-23-2019 pneumococcal polysaccharide vaccine, 23 valent Dipti Hemmer PA Work Phone: [facility] 11-25-2018 Seasonal trivalent influenza vaccine, adjuvanted, preservative free Dipti Hemmer PA Work Phone: [facility] 06-25-2018 pneumococcal conjuga te vaccine, 13 valent Dipti Hemmer PA Work Phone: [facility] 12-02-2017 Influenza, High-dose Seasonal, Quadrivalent, Preservative Free Dipti Hemmer PA Work Phone: [facility] 12-11-2016 Influenza, High-dose Seasonal, Quadrivalent, Preservative Free Dipti Hemmer PA Work Phone: [facility] 08-17-2007 pneumococcal polysaccharide vaccine, 23 valent Dipti Hemmer PA Work Phone: [facility] Payers Date Payer Category Payer Private Health Insurance [employer] SUPPLEMENT [id number] 2022 Unknown [employer] RCIAL - GENERIC PLAN [id number] 2022-Present [phone] [address] [address] [place] [address] [id number] 2004 Medicare [id number] 1959 Medicare [id number] 1959 Unknown [id number] 1942 Unknown [id number] 2.16.840.1.839515.3.579.2 .647 1942 Unknown [id number] 2.16.840.1.367488.3.579.2 .647 1942 Unknown [id number] 2.16.840.1.146909.3.579.2 .647 1942 Unknown [id number] 2.16.840.1.344546.3.579.2 .593 1942 Unknown [id number] 2.16.840.1.575504.3.579.2 .593 1942 Unknown [id number] 2.16.840.1.842586.3.579.2 .593 1942 Unknown [id number] 2.16.840.1.271990.3.579.2 .593 1942 Unknown [id number] 2.16.840.1.274241.3.579.2 .593 1942 Unknown [id number] 2.16.840.1.457080.3.579.2 .593 1942 Unknown [id number] 2.16.840.1.925494.3.579.2 .593 1942 Unknown [id number] 2.16.840.1.621820.3.579.2 .593 1942 Unknown [id number] 2.16.840.1.456483.3.579.2 .593 1942 Unknown [id number] 2.16.840.1.331037.3.579.2 .593 1942 Unknown [id number] 2.16.840.1.167412.3.579.2 .593 1942 Unknown [id number] 2.16.840.1.908602.3.579.2 .593 1942 Unknown [id number] 2.16.840.1.852857.3.579.2 .593 1942 Unknown [id number] 2.16.840.1.478126.3.579.2 .593 1942 Unknown [id number] 2.16.840.1.463088.3.579.2 .593 1942 Unknown [id number] 2.16.840.1.088025.3.579.2 .1286 1942 Unknown [id number] 2.16.840.1.360828.3.579.2 .1259 1942 Unknown [id number] 2.16.840.1.745457.3.579.2 .1259 1942 Unknown [id number] 2.16.840.1.280229.3.579.2 .9 1942 Unknown [id number] 2.16.840.1.839562.3.579.2 .1258 1942 Unknown [id number] 2.16.840.1.967422.3.579.2 .1258 1942 Unknown [id number] 2.16.840.1.137041.3.579.2 .1258 1942 Unknown [id number] 2.16.840.1.948777.3.579.2 .1258 1942 Unknown [id number] 2.16.840.1.395748.3.579.2 .1258 1942 Unknown [id number] 2.16.840.1.817364.3.579.2 .1258 1942 Unknown [id number] 2.16.840.1.988711.3.579.2 .1259 Social History Date Type Detail Facility Start: 07-28-2022 End: 08-13-2022 Tobacco smoking status CTIS Never smoked tobacco [facility] Start: 07-28-2022 End: 08-13-2022 Tobacco use and exposure Smokeless tobacco non-user [facility] Start: 02-11-2023 End: 06-02-2024 Alcoholic beverage intake Lifetime non-drinker (finding) [facility] Start: 10-29-2023 End: 06-01-2024 History of Social function [facility] Work Phone: Start: 10-29-2023 End: 06-01-2024 [id number] Health Literacy [facility] Work Phone: [...] , never or living with a partner? [facility] How often to you hav e [...] got money to buy more. Never true [facility] Start: 1940 [facility] How often do you nee d to have someone help you when you read instructions, pamphlets, or other written material from your doctor or pharmacy [SILS] Often [facility] Work Phone: How often do you nee d to have someone help you when you read instructions, pamphlets, or other written material from your doctor or pharmacy [SILS] Sometimes [facility] How hard is it for y ou to pay for the very basics like food, housing, medical care, and heating Not very hard [facility] Do you feel stress - tense, restless, nervous, or anxious, or unable to sleep at night because your mind is troubled all the time - these days [OSQ] Rather much [facility] Functional Status Date Assessment Result Facility 06-02-2024 Patient Health Quest ionnaire 2 item (PHQ-2) [Reported] [facility] 06-01-2024 Total score [AUDIT-C] 0 06/02/19 25 10:00 AM EDT Mychart, Generic [facility] 06-01-2024 How often to you hav e a drink containing alcohol? Never 06/01/2024 10:00 AM EDT Mychart, Generic Never [facility] 06-01-2024 Functional status Patient does n ot drink 06/01/2024 10:00 AM EDT Mychart, Generic Patient does not drink [facility] 06-01-2024 How often do you hav e 6 or more drinks on 1 occasion? Never 06/01/2024 10:00 AM EDT Mychart, Generic Never [facility] Clinical Notes 06-17-2021 to 06-02-2024 SILVIA Branham - 06/02/2024 9:30 AM Yolanda Martinez MD - 06/01/2024 10:00 AM EDTTelephone Encounter - Annalise Paniagua, [employer] - 05/12/2024 3:07 PM Hanna Yang MD - 03/30/2024 10:15 AM EST Note Date & Type Note Facility 06-02-2024 History of Presen t illness Narrative Images from the original note were not included. HPI Cough Additional comments: Admits with yellow/green phlegm for 1 week. Denies any other symptoms. Last edited by SILVIA Branham on 06/02/2024 9:58 AM. Subjective Patient ID: Lluvia Moreno is a 83 y.o. female who presents for Cough (Admits with yellow/green phlegm for 1 week. Denies any other symptoms.) and Medicare Annual Wellness Visit Subsequent. Cough Pertinent negatives include no chest pain, chills, ear pain, fever, rash, rhinorrhea, sore throat, shortness of breath or wheezing. Medicare Wellness Over the past 2 weeks, how often have you been bothered by any of the following problems? Little interest or pleasure in doing things: More than half the days Feeling down, depressed, or hopeless: More than half the days Patient Health Questionnaire-2 Score: 4 Over the past 2 weeks, how often have you been bothered by any of the following problems? Trouble falling or staying asleep, or sleeping too much: Nearly every day Feeling tired or having little energy: Nearly every day Poor appetite or overeating: Not at all Feeling bad about yourself - or that you are a failure or have let yourself or your family down: Nearly every day Trouble concentrating on things, such as reading the newspaper or watching television: Not at all Moving or speaking so slowly that other people could have noticed? Or the opposite - being so fidgety or restless that you have been moving around a lot more than usual.: Not at all Thoughts that you would be better off or hurting yourself in some way: Not at all Patient Health Questionnaire-9 Score: 13 Rangel Fall Risk History of Falling, Immediate or Within 3 Months: Yes Ambulatory Aid: Crutches/cane/walker Health Risk Assessment Form Do you need help eating, bathing, using the toilet, dressing, or getting around your home?: No Can you prepare your own meals?: No Can you do your own housework without help?: No Can you shop for groceries or clothes without help?: No Do you exercise for about 20 minutes 3 or more days a week?: No How confident are you that you can control and manage most of your health problems?: Somewhat confident Can you mange your money, credit cards and accounts, pay bills and taxes?: No Vision Screening: Yes, no gross abnormalities Hearing Screening: Yes, no gross abnormalities Cognitive Screening Self Assessment: No overt cognitive deficiency is apparent by direct observation Three Word Registration: Leader, Season, Table Clock Drawing: Normal Clock - 2 Three Word Recall: 0 words correct - 0 Total Score (0-5 Points): 2 Pain Assessment Pain Score: 10 - Worst possible pain Advance Care Planning Do you have a living will?: Yes Do you have a medical power of assistant city attorney?: Yes Current Outpatient Medications on File Prior to Visit Medication Sig Dispense Refill albuterol HFA 90 mcg/act inhaler Inhale 2 [...] mg) by mouth Daily 100 tablet 3 Tclgygs-Vqmssaeznqi-Cgmbkhgtwh (Breztri Aerosphere) 160-9-4.8 MCG/ACT aerosol Inhale 2 [...] mg) by mouth Daily 90 tablet 3 No current facility-administered medications on [...] right dr inman 2010 Visit Vitals BP 102/64 Pulse 70 Temp 99.2 F Resp 16 Ht 5' 6 Wt 176 lb 6.4 oz SpO2 99% BMI 28.47 kg/m Smoking Status Never BSA 1.93 m Review of Systems Constitutional: Negative for chills, fatigue and fever. HENT: Negative for congestion, ear pain, rhinorrhea and sore throat. Eyes: Negative for pain, discharge and visual disturbance. Respiratory: Positive for cough. Negative for shortness of breath and wheezing. Cardiovascular: Positive for leg swelling. Negative for chest pain and palpitations. Gastrointestinal: Negative for abdominal pain, constipation, diarrhea, nausea and vomiting. Genitourinary: Negative for difficulty urinating, dysuria and frequency. Musculoskeletal: Positive for arthralgias. Negative for back pain. Skin: Negative for rash. Neurological: Negative for dizziness and numbness. Psychiatric/Behavioral: Negative for sleep disturbance. The patient is not nervous/anxious. Objective Physical Exam Constitutional: General: She is not in acute distress. Appearance: Normal appearance. She is well-developed. HENT: Head: Normocephalic and atraumatic. Right Ear: Tympanic membrane and ear canal normal. Left Ear: Tympanic membrane and ear canal normal. Nose: Nose normal. Mouth/Throat: Mouth: Mucous membranes are moist. Pharynx: No posterior oropharyngeal erythema. Eyes: General: No scleral icterus. Extraocular Movements: Extraocular movements intact. Conjunctiva/sclera: Conjunctivae normal. Pupils: Pupils are equal, round, and reactive to light. Neck: Vascular: No carotid bruit. Cardiovascular: Rate and Rhythm: Normal rate and regular rhythm. Heart sounds: Normal heart sounds. No murmur heard. Pulmonary: Effort: Pulmonary effort is normal. No respiratory distress. Breath sounds: Decreased air movement present. No wheezing, rhonchi or rales. Comments: Using O2 via nasal canula Abdominal: General: Bowel sounds are normal. Palpations: Abdomen is soft. Tenderness: There is no abdominal tenderness. Musculoskeletal: Right shoulder: Decreased range of motion. Cervical back: No tenderness. Lumbar back: Positive left straight leg raise test. Negative right straight leg raise test. Right lower leg: Edema present. Left lower leg: Edema present. Comments: Decreased strength left leg Lymphadenopathy: Cervical: No cervical adenopathy. Skin: General: Skin is warm and dry. Capillary Refill: Capillary refill takes less than 2 seconds. Neurological: General: No focal deficit present. Mental Status: She is alert and oriented to person, place, and time. Gait: Gait abnormal. Comments: Seated walker for ambulation Psychiatric: Mood and Affect: Mood normal. Behavior: Behavior normal. Thought Content: Thought content normal. Assessment & Plan 1. Medicare annual wellness visit, subsequent (Primary) Reviewed all relevant preventative screenings with the patient in detail. Medicare Wellness form completed and will be scanned into patient's chart. All needed testing was ordered. Will continue with yearly Medicare Wellness exams. 2. ACP (advance care planning) Patient willing to discuss ACP. Pt has Living Will and DPOA in place. 3. 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 Will continue to monitor with routine preventative screenings. - DEXA bone density; Future 4. Pulmonary emphysema, unspecified emphysema type ([facility]) This is a chronic medical condition that is stable since last assessment. No changes in treatment are suggested at this time. Continue Breztri as prescribed, and Albuterol as needed. 5. Dyspnea on exertion This is a chronic medical condition that is stable since last assessment. No changes in treatment are suggested at this time. Continue Breztri as prescribed, and Albuterol as needed. 6. Hypoxia This is a chronic medical condition that is stable since last assessment. No changes in treatment are suggested at this time. Continue with supplemental oxygen. 7. Mild intermittent asthma without complication ([facility]) This is a chronic medical condition that is stable since last assessment. No changes in treatment are suggested at this time. Continue Breztri as prescribed, and Albuterol as needed. 8. Panlobular emphysema ([facility]) This is a chronic medical condition that is stable since last assessment. No changes in treatment are suggested at this time. Continue Breztri as prescribed, and Albuterol as needed. 9. Supplemental oxygen dependent This is a chronic medical condition that is stable since last assessment. No changes in treatment are suggested at this time. Perceiving benefit and pulse ox is WNL. Continue with supplemental oxygen. 10. Benign hypertensive heart disease with heart failure ([facility]) The patient is seeing a medical/surgery registered nurse for this condition, treatment is deferred to that specialist. Correspondence from that specialist and any available testing were reviewed during today's visit. 11. Chronic atrial fibrillation, unspecified ([facility]) The patient is seeing a medical/surgery registered nurse for this condition, treatment is deferred to that specialist. Correspondence from that specialist and any available testing were reviewed during today's visit. 12. Chronic combined systolic (congestive) and diastolic (congestive) heart failure The patient is seeing a medical/surgery registered nurse for this condition, treatment is deferred to that specialist. Correspondence from that specialist and any available testing were reviewed during today's visit. 13. Chronic systolic dysfunction of left ventricle The patient is seeing a medical/surgery registered nurse for this condition, treatment is deferred to that specialist. Correspondence from that specialist and any available testing were reviewed during today's visit. 14. 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 ([facility]) The patient is seeing a medical/surgery registered nurse for this condition, treatment is deferred to that specialist. Correspondence from that specialist and any available testing were reviewed during today's visit. 15. Primary hypertension ([facility]) The patient is seeing a medical/surgery registered nurse for this condition, treatment is deferred to that specialist. Correspondence from that specialist and any available testing were reviewed during today's visit. 16. ICD (implantable cardioverter-defibrillator) in place The patient is seeing a medical/surgery registered nurse for this condition, treatment is deferred to that specialist. Correspondence from that specialist and any available testing were reviewed during today's visit. 17. Non-rheumatic mitral regurgitation The patient is seeing a medical/surgery registered nurse for this condition, treatment is deferred to that specialist. Correspondence from that specialist and any available testing were reviewed during today's visit. 18. Status post biventricular cardiac pacemaker insertion The patient is seeing a medical/surgery registered nurse for this condition, treatment is deferred to that specialist. Correspondence from that specialist and any available testing were reviewed during today's visit. 19. Chronic kidney disease, stage 3b (HCC) ([facility]) This is a chronic medical condition that is stable since last assessment. Will continue to monitor with routine labs. 20. Age-related osteoporosis without current pathological fracture ([facility]) This is a chronic medical condition that is stable since last assessment. Will continue to monitor with routine DEXA Scans. 21. Arthritis of right shoulder region This is a chronic medical condition that is stable since last assessment. No treatment requested by patient at this time. 22. Joint derangement of shoulder region This is a chronic medical condition that is stable since last assessment. No treatment requested by patient at this time. 23. Primary osteoarthritis involving multiple joints This is a chronic medical condition that is stable since last assessment. No treatment requested by patient at this time. 24. Rotator cuff syndrome of right shoulder This is a chronic medical condition that is stable since last assessment. No treatment requested by patient at this time. 25. Hyperthyroidism ([facility]) The patient is seeing a medical/surgery registered nurse for this condition, treatment is deferred to that specialist. Correspondence from that specialist and any available testing were reviewed during today's visit. 26. Impaired fasting glucose This is a chronic medical condition that is stable since last assessment. Will continue to monitor with routine labs. 27. Overweight (BMI 25.0-29.9) Encouraged healthy diet. Will continue to monitor. 28. Primary ovarian failure This is a chronic medical condition that is stable since last assessment. Will continue to monitor with routine preventative screenings. 29. Anxiety This is a chronic medical condition that is stable since last assessment. No changes in treatment are suggested at this time. Continue Paxil daily and Lorazepam as needed. 30. Current use of skilled nursing anticoagulation This is a chronic medical condition that is stable since last assessment. No changes in treatment are suggested at this time. No current sings of abnormal bleeding. 31. Diplopia This is a chronic medical condition that is stable since last assessment. No changes in treatment are suggested at this time. 32. Elevated liver enzymes This is a chronic medical condition that is stable since last assessment. No changes in treatment are suggested at this time. Will continue to monitor with routine labs. 33. Frequent falls Encouraged assistive devices. Change positions slowly. Avoid having obstacles in common pathways through home. 34. History of stroke without residual deficits This is a chronic medical condition that is stable since last assessment. No changes in treatment are suggested at this time. Continue Eliquis as prescribed. 35. Memory changes This is a chronic medical condition that is stable since last assessment. No changes in treatment are suggested at this time. 36. 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) This is a chronic medical condition that is stable since last assessment. No changes in treatment are suggested at this time. Continue Paxil daily as prescribed. 37. COPD exacerbation (CMS/HCC) Doxycycline as prescribed. Stay hydrated. Hold Calcium while on Doxycycline. - doxycycline (Vibramycin) 100 MG capsule; Take 1 capsule (100 mg) by mouth in the morning and 1 capsule (100 mg) before bedtime. Do all this for 7 days. Take with at least 8 ounces (large glass) of water, do not lie down for 30 minutes after. Dispense: 14 capsule; Refill: 0 Follow up in about 3 months (around 09/01/2024) for Medication Follow Up. Dipti Anderson MSBS, PAKvngC documented in this encounter [facility] 06-01-2024 History of Presen t illness Narrative Lluvia Moreno is a 83 y.o. female No ref. provider found presents with chief complaint of Thyroid Problem and Follow-up (LAB) HPI: Interim history 05/2024 Followup visit on 06/01/2024 for hyperthyroidism. She is on 10 mg methimazole half-tablet 3 days a week. , lab on 05/2024 TSH 4.7, FT4 0.48 (0.76-1.46), FT3 2.72( 2.18-3.98). Interim history 11/2023 Followup visit on 12/02/2023 [...] on 03/31/18 for lab done in in [facility]: TSH still suppressed 0.07, free T4 back [...] hours atorvastatin (LIPITOR) 80 mg, Oral, Daily Wnaylwv-Tsnagzgfxbk-Smrnjxgbbm (Breztri Aerosphere) 160-9-4.8 MCG/ACT aerosol 2 puffs, Inhalation, 2 times daily bumetanide (BUMEX) 1 mg, Daily Calcium Carb-Cholecalciferol 600-200 MG-UNIT tablet 2 tablets, Every 24 hours cholecalciferol (VITAMIN D-3) 2,000 Units, Daily lisinopril 2.5 mg, Oral, Every morning LORazepam (ATIVAN) 0.5 mg, Oral, Every 6 hours PRN methIMAzole (Tapazole) 10 MG tablet Take 1/2 tablet on Thursday metoprolol succinate XL (TOPROL-XL) 50 mg, Oral, Daily Multiple Vitamins-Minerals (Multi For Her 50+) tablet Every 24 hours PARoxetine (PAXIL) 20 mg, Oral, Every morning spironolactone (ALDACTONE) 25 mg, Oral, Daily ALLERGIES: No Known Allergies Past Medical History: Diagnosis Date A-fib ([facility]) Arthritis CAD (coronary artery disease) ([facility]) Cerebrovascular accident ([facility]) Disease of thyroid gland ([facility]) H/O bladder infections Hearing loss Heart disease History of atrial fibrillation History of being hospitalized 08/28/2023 COPD Exacerbation History of echocardiogram 2018 EF 60-65% History of heart artery stent [...] REVIEWED AND NEGATIVE OBJECTIVE: Visit Vitals BP 142/82 Pulse 70 Resp 16 Ht 5' 7 Wt 178 lb SpO2 (!) 89% BMI 27.88 kg/m Smoking Status Never BSA 1.95 m Physical Exam Constitutional: Appearance: Normal appearance. [...] continue with methimazole 10 mg half tablet 3 days a week we will check lab before next visit in 6 months and adjust.. Multinodular goiter (CMS/HCC) Longstanding persistent atrial fibrillation (CMS/HCC) Follow up in about 6 months (around 12/01/2024). documented in this encounter [facility] 05-12-2024 Telephone encounter Note Needs sent to [facility] 05-12-2024 Miscellaneous Notes Needs sent to [facility] documented in this encounter [facility] 03-30-2024 History of Presen t illness Narrative [...] mg) by mouth Daily 100 tablet 3 Jxwxblk-Vrpikcectfx-Pfjmgymrik (Breztri Aerosphere) 160-9-4.8 MCG/ACT aerosol Inhale 2 [...] Pulmonary emphysema, unspecified emphysema type (CMS/HCC) - This is a chronic medical condition that is stable since last assessment. No changes in treatment are suggested at this time. Age-related osteoporosis without current pathological fracture (CMS/HCC) - denosumab (Prolia) injection 60 mg Follow up in about 6 months (around 09/27/2024) for Routine F/U. documented in this encounter [facility] 02-25-2024 History of Presen t illness Narrative Subjective [...] 1 TABLET EVERY MORNING 100 tablet 3 Calvwvg-Ldrtczegixs-Jalzoauaar (Breztri Aerosphere) 160-9-4.8 MCG/ACT aerosol Inhale 2 [...] upcoming fasting labs. 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 (CMS/HCC) - CBC and differential; Future - Lipid panel; Future - Vitamin D 25 hydroxy Total; Future The patient is seeing a medical/surgery registered nurse for this condition, treatment is deferred to that specialist. Correspondence from that specialist and any available testing were reviewed during today's visit. Age-related osteoporosis without current pathological fracture (CMS/HCC) - Vitamin D 25 hydroxy Total; Future Will continue to monitor with routine DEXA scans. Continue Vitamin D and Calcium supplements daily. Cardiomyopathy, unspecified (CMS/HCC) The patient is seeing a medical/surgery registered nurse for this condition, treatment is deferred to that specialist. Correspondence from that specialist and any available testing were reviewed during today's visit. Longstanding persistent atrial fibrillation (CMS/HCC) The patient is seeing a medical/surgery registered nurse for this condition, treatment is deferred to that specialist. Correspondence from that specialist and any available testing were reviewed during today's visit. Chronic obstructive pulmonary disease, unspecified (CMS/HCC) See above. Chronic kidney disease, stage 3b (HCC) (CMS/HCC) Will continue to monitor with routine labs. 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) The patient is seeing a medical/surgery registered nurse for this condition, treatment is deferred to that specialist. Correspondence from that specialist and any available testing were reviewed during today's visit. Chronic atrial fibrillation, unspecified (CMS/HCC) The patient is seeing a medical/surgery registered nurse for this condition, treatment is deferred to that specialist. Correspondence from that specialist and any available testing were reviewed during today's visit. Supplemental oxygen dependent Using oxygen concentrator, O2 via nasal cannula. Oxygen is medically necessary for patient due to hypoxia and significant CLAIRE without it. Follow up in about 3 months (around 05/27/2024) for Medicare Wellness Visit. documented in this encounter [facility] 01-25-2024 Note [facility] follow-up note Reason for [...] by mouth at bedtime., Disp: , Rfl: auwdteeily-btacjdxe-seilybsrtl (Breztri Aerosphere) 160-9-4.8 mcg/actuation HFA aerosol inhaler, Inhale., Disp: , Rfl: bumetanide (Bumex) 1 mg tablet, if needed., Disp: , Rfl: cholecalciferol (Vitamin D-3) 50 MCG (1999 UT) tablet, Take 1 tablet every day [...] stress ECG findings (more content not included)... [facility] 12-02-2023 History of Presen t illness Narrative [...] on 03/31/18 for lab done in in [facility]: TSH still suppressed 0.07, free T4 back [...] hours atorvastatin (LIPITOR) 80 mg, Oral, Daily Mkegdyp-Dlgosphphzd-Suoxdlseaj (Breztri Aerosphere) 160-9-4.8 MCG/ACT aerosol 2 Inhalation [...] months (around 06/01/2024). documented in this encounter [facility] 11-26-2023 History of Presen t illness Narrative [...] oxygen tank. Does have an appointment with [facility] on 12/09 to get a smaller unit, [...] mouth in the morning. 100 tablet 3 Ofhegxk-Kxncvxldwbf-Vlyonqgajt (Breztri Aerosphere) 160-9-4.8 MCG/ACT aerosol Inhale 2 [...] vaccination - Influenza, high-dose seasonal, quadrivalent, PF (FUK631) (Fluzone High Dose [place] 0.7mL dose) [...] 02/26/2024) for COPD. documented in this encounter [facility] 10-30-2023 Telephone encounter Note OARRS reviewed, Rx sent into patient's pharmacy. [facility] 10-30-2023 Miscellaneous Notes OARRS reviewed, Rx sent into patient's pharmacy. documented in this encounter [facility] 08-07-2023 Note [facility] follow-up [...] by mouth at bedtime., Disp: , Rfl: szofaatwkh-prmftugp-seyluvstrj (Breztri Aerosphere) 160-9-4.8 mcg/actuation HFA aerosol inhaler, [...] chest x-ray a (more content not included)... [facility] 04-27-2023 History of Presen t illness Narrative [...] like to follow up with her local life skills worker for regular eyecare/comprehensive exams. Will send a [...] (TOPROL XL) 50 mg 24 hr tablet multivitamin,qy-dhcq-Sx-FA-min 27-0.4 mg tablet 1 (one) time each [...] history of COPD (chronic obstructive pulmonary disease) ([facility]) and Hypertension. She has a [...] Nichols OD by SHANTEL Price. Provider Statement: IEliel OD personally performed the services described in the documentation, as scribed by SHANTEL Price in my presence, and it is both accurate and complete. documented in this encounter [facility] 02-11-2023 History of Presen t illness Narrative [...] TAKE 1 TABLET DAILY for 100 days Yusihzl-Jatznqnybxn-Thfdmjtukq (Breztri Aerosphere) 160-9-4.8 MCG/ACT aerosol Inhale 1 [...] follow-ups on file. 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 Localized edema Edema documented in this [...] Impaired fasting glucose 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 (CMS/HCC) Age-related osteoporosis [...] Double vision Diplopia documented in this encounter [facility] SystemEvaluation note* Diagnosis Anxiety Anxiety state, unspecified documented in this encounter [facility] HealthcareEvaluation note* Diagnosis Hyperthyroidism (CMS/HCC)- Primary Thyrotoxicosis without mention of goiter or other cause, without mention of thyrotoxic crisis or storm Multinodular goiter (CMS/HCC) Nontoxic multinodular goiter Longstanding persistent atrial fibrillation (CMS/HCC) documented in this encounter [facility] HealthcareEvaluation note* Diagnosis Medicare annual wellness visit, subsequent- Primary ACP (advance care planning) Other specified counseling Estrogen deficiency Other ovarian failure Pulmonary emphysema, unspecified emphysema type (CMS/HCC) Dyspnea on exertion Other dyspnea and respiratory abnormality Hypoxia Hypoxemia Mild intermittent asthma without complication (CMS/HCC) Panlobular emphysema (CMS/HCC) Other emphysema Supplemental oxygen dependent Dependence on supplemental oxygen Benign hypertensive heart disease with heart failure (CMS/HCC) Chronic atrial fibrillation, unspecified ([facility]/HCC) 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 systolic dysfunction of left ventricle 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 ([facility]/HCC) Primary hypertension ([facility]/HCC) Unspecified essential hypertension ICD (implantable cardioverter-defibrillator) in place Non-rheumatic mitral regurgitation Status post biventricular cardiac pacemaker insertion Chronic kidney disease, stage 3b (HCC) ([facility]/HCC) Age-related osteoporosis without current pathological fracture ([facility]/HCC) Arthritis of right shoulder region Joint derangement of shoulder region Unspecified derangement, shoulder region Primary osteoarthritis involving multiple joints Rotator cuff syndrome of right shoulder Hyperthyroidism ([facility]/HCC) Thyrotoxicosis without mention of goiter or other cause, without mention of thyrotoxic crisis or storm Impaired fasting glucose Overweight (BMI 25.0-29.9) Overweight Primary ovarian failure Other ovarian failure Anxiety Anxiety state, unspecified 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 Diplopia Elevated liver enzymes Other nonspecific abnormal serum enzyme levels Frequent falls History of stroke without residual deficits Transient ischemic attack (TIA), and cerebral infarction without residual deficits Memory changes 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) COPD exacerbation ([facility]/HCC) Obstructive chronic bronchitis with exacerbation documented in this encounter [facility] HealthcareInstructions* Attachments The following attachments cannot be sent through Care Everywhere. 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 Power of Mobile Lab Technician 02/25/2024 12:18 PM Healt hcare Power of Mobile Lab Technician Reason for Referral Specialty Diagnoses / Procedures Referred By Safia t Referred To Contact Radiology Diagnoses Leg hematoma, right, initial encounter Current use of skilled nursing anticoagulation Localized edema Procedures Vascular US lower extremity venous duplex right Ole Yang MD [address] [facility] [address] [place] [address] [facility] [address] [place] [address] Referral ID Status Reason Start Date Expiration Date Visits Re quested Visits Authorized [id number] Closed 02/12/2023 05/14/2023 1 1 Additional Source Comments INFORMATION SOURCE (unrecogn ized section and content) DATE CREATED AUTHOR 10/15/2021 [facility] DATE CREATED AUTHOR AUTHOR'S ORGANIZ ATION 05/18/2022 [facility] DATE CREATED AUTHOR AUTHOR'S ORGANIZ ATION 04/27/2023 [facility] DATE CREATED AUTHOR AUTHOR'S ORGANIZ ATION 06/08/2024 [facility] DATE CREATED AUTHOR AUTHOR'S ORGANIZ ATION 07/13/2024 [facility] EPIC DATE CREATED AUTHOR AUTHOR'S ORGANIZ ATION 07/20/2024 [facility] Reason for Visit (unrecogniz ed section and content) Reason Comments leg discoloration Reason Comments Thyroid Problem Follow-up Reason Onset Date Comments Med Refill 10/29/2023 Reason Comments prolia injection Reason Comments Follow-up Reason Onset Date Comments Med Refill 05/12/2024 Reason Comments Thyroid Problem Follow-up LAB Reason Comments Cough Admits with yellow/g reen phlegm for 1 week. Denies any other symptoms. Medicare Annual Wellness Visit Subsequen t Care Teams (unrecognized sec tion and content) Bore Miner Operator Relationship Specialty Start Date End Date Ole Yang MD [address] [facility] [address] [place] [address] PCP - ACO Reach 07/10/22 Ole Yang MD [address] [place] [address] PCP - General Internal Medicine 07/28/22 Bore Miner Operator Relationship Specialty Start Date End Date Ole Yang MD [address] [place] [address] PCP - ACO Reach 07/10/22 Ole Yang MD [address] [place] [address] PCP - General Internal Medicine 07/28/22Thursday, Bea, [employer]ARGET AIRCRAFT CONTROLLER [address] [place] [address] Licensed Practical Nurse Family Medicine 10/27/23 Bore Miner Operator Relationship Specialty Start Date End Date Ole Yang MD [address] [place] [address] PCP - ACO Reach 07/10/22 Ole Yang MD [address] [place] [address] PCP - General Internal Medicine 07/28/22ThursdayBea [employer]ARGET AIRCRAFT CONTROLLER [address] [place] [address] Licensed Practical Nurse Family Medicine 10/27/23 Bore Miner Operator Relationship Specialty Start Date End Date Ole Yang MD [address] [place] [address] PCP - ACO Reach 07/10/22 Ole Yang MD [address] [place] [address] PCP - General Internal Medicine 07/28/22Thursday, Bea, [employer] AIRCRAFT CONTROLLER [address] [place] [address] Licensed Practical Nurse Family Medicine 10/27/23 Bore Miner Operator Relationship Specialty Start Date End Date Ole aYng MD [address] [place] [address] PCP - ACO Reach 07/10/22 Ole Yang MD [address] [place] [address] PCP - General Internal Medicine 07/28/22Thursday, Bea, TARGET AIRCRAFT CONTROLLER [address] [place] [address] Licensed Practical Nurse Family Medicine 10/27/23 Bore Miner Operator Relationship Specialty Start Date End Date Ole Yang MD [address] [place] [address] PCP - ACO Reach 07/10/22 Ole Yang MD [address] [place] [address] PCP - General Internal Medicine 07/28/22Thursday, Bea, TARGET AIRCRAFT CONTROLLER [address] [place] [address] Licensed Practical Nurse Family Medicine 10/27/23 Bore Miner Operator Relationship Specialty Start Date End Date Ole Yang MD [address] [place] [address] PCP - ACO Reach 07/10/22 Ole Yang MD [address] [place] [address] PCP - General Internal Medicine 07/28/22 Debora Saenz, RN Licensed Practical Nurse Family Medicine 03/25/24 Bore Miner Operator Relationship Specialty Start Date End Date Ole Yang MD [address] [place] [address] PCP - ACO Reach 07/10/22 Ole Yang MD [address] [place] [address] PCP - General Internal Medicine 07/28/22 Debora Saenz, RN Licensed Practical Nurse Family Medicine 03/25/24 Bore Miner Operator Relationship Specialty Start Date End Date Ole Yang MD [address] [place] [address] PCP - General Internal Medicine 08/13/22 Bore Miner Operator Relationship Specialty Start Date End Date Ole Yang MD [address] [place] [address] PCP - ACO Reach 07/10/22 Ole Yang MD [address] [place] [address] PCP - General Internal Medicine 07/28/22 Edna Alcantara LPN 05/06/24 Bore Miner Operator Relationship Specialty Start Date End Date Ole Yang MD [address] [place] [address] PCP - ACO Reach 07/10/22 Ole Yang MD [address] [place] [address] PCP - General Internal Medicine 07/28/22 Edna Alcantara LPN 05/06/24 Bore Miner Operator Relationship Specialty Start Date End Date Ole Yang MD [address] [place] [address] PCP - ACO Reach 07/10/22 Ole Yang MD [address] [place] [address] PCP - General Internal Medicine 07/28/22 Edna Alcantara LPN 05/06/24 Bore Miner Operator Relationship Specialty Start Date End Date Ole Yang MD [address] [place] [address] PCP - ACO Reach 07/10/22 Ole Yang MD [address] [place] [address] PCP - General Internal Medicine 07/28/22 Edna Alcantara LPN 05/06/24 Bore Miner Operator Relationship Specialty Start Date End Date Ole Yang MD [address] [place] [address] PCP - ACO Reach 07/10/22 Ole Yang MD [address] [place] [address] PCP - General Internal Medicine 07/28/22 Edna [...] BE BASED ON THE PRIMARY CLINICAL RECORDS. [facility]. provides no warranty or guarantee of the accuracy or completeness of information in this document.
--- NOTE | 2024-07-22 06:46 | XR_ITS ---
The [address] [address] Patient Name: SALINA MORENO MRN: [id number] date: 1940 Sex: F Assigned Patient Location: ED.MAIN Current Patient Location: ER Accession/Order Number: [id number] Exam Date: 07/22/2024 07:20 Report Date: 07/22/2024 07:21 At the request of: KRISTY PELAEZ MD Procedure: XR chest 1V XR chest 1V 07/22/2024 6:55 AM SIGNS AND SYMPTOMS: ^syncope PROTOCOL: Frontal radiographs of the chest COMPARISON: None FINDINGS: The trachea is midline. There is visually pacer device on the left. There is mild cardiomegaly. The lung parenchyma is clear. The bony thorax is intact. Degenerative changes are noted in the shoulders and thoracic spine. XR/XR chest 1V IMPRESSION: No acute cardiopulmonary pathology. Similar mild cardiomegaly is noted. Impression dictated by: Jj Wilson M.D. 07/22/2024 7:21 AM Dictation Location: [employer] Electronically authenticated by: [id number] Y Date: 07/22/2024 07:21
--- NOTE | 2024-07-22 06:46 | ECG_ITS ---
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 Measurements Intervals [facility] Rate: 70 P: -[phone] [place]: -18805 QRS: 104 QRSD: 114 T: 85 QT: 440 QTc: 460 Interpretive Statements [id number] Electronic ventricular pacemaker Underlying atrial fibrillation Abnormal ECG Compared to ECG 08/28/2023 12:49:49 No significant changes Electronically Signed On 07-22-2024 18:24:11 EDT by RUDDY GIBSON M.D.
--- NOTE | 2024-07-22 07:10 | CT_ITS ---
The [address] [address] Patient Name: SALINA MORENO MRN: [id number] date: 1940 Sex: F Assigned Patient Location: ER Current Patient Location: ER Accession/Order Number: [id number] Exam Date: 07/22/2024 07:54 Report Date: 07/22/2024 07:58 At the request of: KRISTY PELAEZ MD Procedure: CT cervical spine wo con CT cervical spine wo con 07/22/2024 7:46 AM SIGN AND SYMPTOMS: Confusion, found down TECHNIQUE: Multi detector CT axial slices of the cervical spine were obtained without IV contrast. Volumetric acquisition sagittal, coronal, and 3-D reconstructions were performed and reviewed. CT was performed with one or more of the following dose reduction techniques: Automated exposure control, adjustment of the mA and/or kV according to patient size, or use of iterative reconstruction technique. COMPARISON: None. FINDINGS: There is preservation of the vertebral body heights. There is moderate disc height loss at C3-C4, C5-C6, C6-C7. There is mild disc height loss at C4-C5 facet hypertrophy is noted with operative joint spurring throughout. No fractures or dislocations are seen. The alignment of the cervical spine is normal. The craniocervical junction and atlantoaxial joint are within normal limits. The prevertebral soft tissues are within normal limits. The paraspinous soft tissues are within normal limits. The lung apices are unremarkable. CT/CT cervical spine wo con IMPRESSION: No fracture or subluxation. Multilevel degenerative changes noted as above. Impression dictated by: Jj Wilson M.D. 07/22/2024 7:58 AM Dictation Location: [place] Electronically authenticated by: [id number] Y Date: 07/22/2024 07:58
--- NOTE | 2024-07-22 07:10 | CT_ITS ---
The [address] [address] Patient Name: SALINA MORENO MRN: [id number] date: 1940 Sex: F Assigned Patient Location: ER Current Patient Location: ER Accession/Order Number: [id number] Exam Date: 07/22/2024 07:49 Report Date: 07/22/2024 07:53 At the request of: KRISTY PELAEZ MD Procedure: CT head/brain wo con CT head/brain wo con 07/22/2024 7:46 AM SIGNS AND SYMPTOMS: Confusion, found down TECHNIQUE:Multi-detector CT axial slices of the brain were obtained without IV contrast. CT was performed with one or more of the following dose reduction techniques: Automated exposure control, adjustment of the mA and/or kV according to patient size, or use of iterative reconstruction technique. COMPARISON: 03/19/2022 FINDINGS: There is no shift of the midline structures, acute intracranial bleeding, mass effects, or evidence of acute ischemia. There is age-related cortical atrophy. There is periventricular white matter hypoattenuation. Remote lacunar infarcts in the periventricular white matter on the right similar to the prior exam. Atherosclerotic changes are noted in the V4 segment of the left vertebral artery and intracranial segments of the internal carotid arteries. The ventricular system is normal in size. The brainstem and the cerebellum are unremarkable. The visualized intraorbital contents, the visualized paranasal sinuses, and the infratemporal soft tissues show no acute abnormality. The osseous structures in the skull base and the calvarium show no abnormality. CT/CT head/brain wo con IMPRESSION: No acute intracranial pathology. Remote lacunar infarcts are noted in the periventricular white matter on the right similar to the prior exam. 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 Impression dictated by: Jj Wilson M.D. 07/22/2024 7:53 AM Dictation Location: [place] [address] Electronically authenticated by: [id number] Y Date: 07/22/2024 07:53
[2024-07-22 07:13] LABS: Basophils Percent Auto 0.2 % (0.2-2.0); Hematocrit 34.8 % (36.0-48.0); Hemoglobin 11.2 g/dL (12.0-16.0); Immature Granulocytes Abs Auto 0.04 10^3/uL (0.00-0.03); Immature Granulocytes Pct Auto 0.5 % (0.0-0.5); Lymphocytes Absolute Auto 0.4 10^3/uL (1.2-3.8); Lymphocytes Percent Auto 4.6 % (20.5-60.0); Mean Corpuscular HGB Conc 32.2 g/dL (29.9-35.2); Mean Corpuscular Hemoglobin 31.5 pg (26.7-34.0); Monocytes Absolute Auto 0.8 10^3/uL (0.3-0.8); Monocytes Percent Auto 8.7 % (1.7-12.0); Neutrophils Absolute Auto 7.5 10^3/uL (1.4-6.5); Platelet Count 188 10^3/uL (150-450); Red Blood Count 3.55 10^6/uL (4.20-5.40); Red Cell Distribution Width 13.6 % (11.0-15.0); White Blood Count 8.8 10^3/uL (4.0-11.0)
[2024-07-22 07:23] LABS: Bilirubin Urine NEGATIVE (NEGATIVE); Blood Urine LARGE (NEGATIVE); Clarity Urine CLOUDY (CLEAR); Color Urine YELLOW (YELLOW); Glucose Urine UA NEGATIVE (NEGATIVE); Ketones Urine 15 mg/dL (NEGATIVE); Leukocyte Esterase Urine MODERATE (NEGATIVE); Nitrite Urine POSITIVE (NEGATIVE); Protein Urine >=300 mg/dL (NEG/TRACE); Specific Gravity Urine 1.015 (1.005-1.025)
[2024-07-22 07:33] LABS: Bacteria Urine MODERATE #/HPF (NONE SEEN); Cast Seen? NONE SEEN #/LPF (NONE SEEN); Crystals Seen? None Seen #/HPF (None Seen); Mucus Urine NONE SEEN (NONE SEEN); RBC Urine >100 #/HPF (0-2); Squamous Epithelial Cell Urine FEW #/LPF (NONE/RARE); WBC Urine >100 #/HPF (NONE SEEN)
[2024-07-22 07:34] LABS: Urine Culture Indicated YES-FRMC
[2024-07-22 07:39] LABS: Creatine Kinase 59 U/L (26-192); Magnesium 1.9 mg/dL (1.8-2.4)
[2024-07-22 07:40] LABS: PCO2 VBG 46.3 mmHg (40.0-52.0); pH VBG 7.395 (7.330-7.430)
[2024-07-22 07:42] LABS: Lactate/Lactic Acid 1.8 mmol/L (0.4-2.0)
[2024-07-22 07:43] LABS: Anion Gap 10.9; BUN Creatinine Ratio 23.4; Calcium 9.4 mg/dL (8.5-10.1); Carbon Dioxide 33.9 mmol/L (21.0-32.0); Chloride 100 mmol/L (98-107); Estimated GFR (African America 43 (>=60 mL/min/1.73m^2); Estimated GFR (Non-African Ame 36 (>=60 mL/min/1.73m^2); Glucose 138 mg/dL (74-106); Potassium 4.8 mmol/L (3.5-5.1); Sodium 140 mmol/L (136-145)
[2024-07-22 07:45] LABS: Troponin I High Sensitivity 163.7 pg/mL (4.0-51.3)
[2024-07-22 07:46] LABS: D Dimer 2.37 mg/L FEU (<=0.59)
[2024-07-22 07:59] LABS: Alanine Aminotransferase 25 U/L (14-59); Albumin Globulin Ratio 0.8; Albumin Level 3.3 g/dL (3.4-5.0); Alkaline Phosphatase 93 U/L (46-116); Aspartate Amino Transferase 23 U/L (15-37); Bilirubin Direct 0.3 mg/dL (0.0-0.2); Bilirubin Total 1.1 mg/dL (0.2-1.0); Total Protein 7.3 g/dL (6.4-8.2)
--- NOTE | 2024-07-22 08:09 | ED.GENADUL1 ---
HPI HPI - General Adult General Chief complaint: Altered Mental Status Stated complaint: ILL Time Seen by Provider: 07/22/24 06:38 Source: patient Mode of arrival: ambulance Limitations: no limitations History of Present Illness HPI narrative: Patient is a 83-year-old female who is presenting to the ER today with some confusion, hypoxia. Patient daughter and granddaughter at bedside. Patient lives at home, patient's daughter and granddaughter live with patient. Patient daughter heard some rattling downstairs. Patient was upstairs, patient lives on the first floor. Daughter came downstairs after she heard some noise from the patient. Patient could have been out of her room and at the kitchen table for about 15 minutes approximately estimated per daughter. Patient was sitting at the table with her head down. She was not wearing oxygen. Patient does have a oxygen pulse ox at home, patient's oxygen was in the mid 60s. Patient normally wears 2 L of oxygen and. It was difficult to assess how long patient could have been without oxygen. Patient try to raise her self off the table to stand up, patient was on steady, weak, and patient lowered herself down to the ground. Patient daughter was with her, patient did not have a hard fall, did not hit her head. Patient currently has no headache or neck pain. No chest pain or shortness of breath. Patient is currently on 2 L of nasal cannula. Patient is sliding down the bed. Patient's blankets are disheveled. She was adjusted by myself and garage laborer in warm blanket was given. Patient states she has no chest pain or shortness of breath. She has no abdominal pain nausea or vomiting. Patient has no other acute complaints at this time. Patient does have some ecchymosis to her left knee, but no pain. Patient has very vague right lower back pain. All systems are negative except as noted/marked. All systems reviewed and otherwise negative. Nurses note and vital signs reviewed and patient is not hypoxic. General: The patient appears very pleasant, slightly confused, A/O x 2, slightly confused at time. Patient is resting uncomfortably on cart. Patient is not toxic, lethargic, or listless. Patient's oxygen has really positioned on herself, by myself. Oxygen and pulse ox are now intact during HPI. Patient wears 2 L nasal cannula. Skin: Warm, dry, no pallor noted. There is no rash noted. No petechiae, purpura. Patient has ecchymosis noted to the left knee. Head: Normocephalic, atraumatic, patient has no midline or paracervical tenderness to palpation. Eye: Normal conjunctiva, no drainage, EOMI. PERRL Ears, Nose, Mouth, and Throat: oral mucosa is moist. Nares patent. Mouth without vesicles. Cardiovascular: Regular Rate and Rhythm, no murmur, gallop, rub Respiratory: Patient is in no distress, no accessory muscle use, lungs are clear to auscultation, no wheezing, rales or rhonchi Back: non-tender, no CVA tenderness bilaterally to percussion. No CT LS midline pain GI: Soft, no tenderness to palpation, no masses appreciated. No rebound, guarding, or rigidity noted. No distention Musculoskeletal: Patient has full range of motion of all of the extremities, no motor, sensory, or focal neurological deficits. Patient has ecchymosis to left knee, patient has full range of motion of bilateral lower extremities without difficulty. Neurological: A&O x4, normal speech Psychiatric: Cooperative Related Data Home Medications ?Medication ?Instructions ?Recorded ?Confirmed apixaban 5 mg tablet (Eliquis) 5 mg PO Q12H 08/28/23 07/22/24 atorvastatin 80 mg tablet 80 mg PO .QHS 08/28/23 07/22/24 methimazole 10 mg tablet 5 mg PO .QD 08/28/23 07/22/24 metoprolol succinate 50 mg 50 mg PO .QD 08/28/23 07/22/24 tablet,extended release 24 hr paroxetine HCl 20 mg tablet 20 mg PO .QD 08/28/23 07/22/24 spironolactone 25 mg tablet 25 mg PO QAM 08/28/23 07/22/24 albuterol sulfate 90 mcg/actuation 2 puff inhalation Q4H PRN 06/08/24 07/22/24 aerosol inhaler shortness of breath or wheezing aspirin 81 mg capsule 81 mg PO DAILY 06/08/24 07/22/24 brexpiprazole 0.5 mg tablet 0.25 mg PO .qd 07/22/24 07/22/24 (Rexulti) bumetanide 1 mg tablet 1 mg PO DAILY PRN water retention 07/22/24 07/22/24 calcium 600 mg (as 1 cap PO DAILY 07/22/24 07/22/24 carbonate)-vitamin D3 5 mcg (200 unit) capsule (Calcium 600 + D(3)) cholecalciferol (vitamin D3) 25 25 mcg PO DAILY 07/22/24 07/22/24 mcg (1,000 unit) tablet (Vitamin D3) lisinopril 5 mg tablet 2.5 mg PO .QD 07/22/24 07/22/24 lorazepam 0.5 mg tablet 0.5 mg PO BEDTIME 07/22/24 07/22/24 multivitamin (Daily Multi-Vitamin 1 tab PO DAILY 07/22/24 07/22/24 tablet) Allergies Allergy/AdvReac Type Severity Reaction Status Date / Time No Known Drug Allergies Allergy Verified 07/22/24 06:13 Opioid HPI Opioid Management Most Recent Opioid Data: Last Pain Scale 0 Today, 18:56 Last Pain Intensity 0 Today, 10:31 Last Pain Assessment 07/22/24, 10:00 Last MAR Pain Assessment 07/22/24, 16:11 Last ORT Total Score 1 07/22/24, 09:48 Last ORT Risk Category Low Risk 07/22/24, 09:48 [facility] Medical History (Updated 07/23/24 @ 14:29 by Sakina Manuel DO) Dependence on supplemental oxygen ?Z99.81 - Dependence on supplemental oxygen (ICD-10) Hypoxic episode ?R09.02 - Hypoxemia (ICD-10) COPD exacerbation ?J44.1 - Chronic obstructive pulmonary disease with (acute) exacerbation (ICD-10) CHF (congestive heart failure) ?I50.9 - Heart failure, unspecified (ICD-10) HTN (hypertension) ?I10 - Essential (primary) hypertension (ICD-10) CVA (cerebral vascular accident) ?I63.9 - Cerebral infarction, unspecified (ICD-10) COPD (chronic obstructive pulmonary disease) ?J44.9 - Chronic obstructive pulmonary disease, unspecified (ICD-10) Cardiac defibrillator in place ?Z95.810 - Presence of automatic (implantable) cardiac defibrillator (ICD-10) A-fib ?I48.91 - Unspecified atrial fibrillation (ICD-10) Surgical History (Updated 08/28/23 @ 18:27 by Lo Knapp RN) Hx of appendectomy ?Z90.49 - Acquired absence of other specified parts of digestive tract (ICD-10) History of hysterectomy ?Z90.710 - Acquired absence of both cervix and uterus (ICD-10) Family History (Updated 08/28/23 @ 17:55 by Lo Knapp, RN) Other Family history of CHF (congestive heart failure) Family history of COPD (chronic obstructive pulmonary disease) Family history of cancer Family history of hypertension Family history of myocardial infarction Family history of stroke Social History (Updated 08/28/23 @ 17:56 by Lo Knapp, RN) Within the past year, how often did you have a drink containing alcohol: monthly or less Within the past year, how many standard drinks containing alcohol did you have on a typical day: 1 or 2 Within the past year, how often did you have six or more drinks on one occasion: never Total score: 0 Score interpretation: A score less than 3 is consistent with normal alcohol consumption. Smoking status: Never smoker Non-prescribed substance use: denies use Highest level of school completed/degree received: high school graduate In a typical week, how many times do you talk on the telephone with family, friends, or neighbors: 3 or more times per week How often do you get together with friends or relatives: 3 or more times per week How often do you attend yarsani or orthodox services: never Little interest or pleasure in doing things: not at all Feeling down, depressed, or hopeless: several days Feel stressed/tense/nervous/anxious/difficulty sleeping: not at all Do you think of yourself as: straight/heterosexual Gender Identity: female Exam Constitutional Vital Signs, click to edit/add: Last Vital Signs Temp 98.3 F 07/23/24 15:18 Pulse 70 07/23/24 17:52 Resp 18 07/23/24 16:52 BP 136/78 07/23/24 15:18 Pulse Ox 97 07/23/24 16:52 O2 Del Method Nasal Cannula 07/23/24 16:52 O2 Flow Rate 1.5 07/23/24 16:52 Course Vital Signs Vital signs: Vital Signs Temperature 98.6 F 07/22/24 06:05 Pulse Rate 70 07/22/24 06:05 Respiratory Rate 20 07/22/24 06:05 Blood Pressure 169/70 H 07/22/24 06:05 Pulse Oximetry 96 07/22/24 06:05 Oxygen Delivery Method Room Air 07/22/24 06:05 Temperature 98.3 F 07/23/24 15:18 Pulse Rate 70 07/23/24 17:52 Respiratory Rate 18 07/23/24 16:52 Blood Pressure 136/78 07/23/24 15:18 Pulse Oximetry 97 07/23/24 16:52 Oxygen Delivery Method Nasal Cannula 07/23/24 16:52 Oxygen Delivery Flow Rate 1.5 07/23/24 16:52 Medical Decision Making MDM Narrative Medical decision making narrative: Patient seen and examined: I reevaluated patient at approximately 7:30 AM, initial orders were put in by Dr. Soares. I attempted to cancel a D-dimer, but it was resulted and elevated. Patient has elevated BUN and creatinine. Added CT of the head, cervical spine, chest x-ray was done. Additional lab work was ordered. Differential diagnosis includes but is not limited to: UTI, weakness, dehydration, closed head injury, AMI, sepsis, accidental overdose Diagnostics and management: Patient will have laboratory studies Relevant laboratory interpretation: White blood cell count is normal. Elevated D-dimer 2.37, I attempted to cancel this secondary to age, it was already ordered and resulted by Dr. Soares. CO2 33, BUN 33/1.4, chronic, total bilirubin 1.1. Direct bili 0.3. Troponin 163. UTI positive. Radiological studies: Please see the formal radiological report. CT of head, cervical spine, chest x-ray showed no acute findings. Reevaluation: Patient was very pleasant when I assessed patient at approximately 7:30 AM. Shared decision making: I discussed with the patient the necessary laboratory findings and radiological findings. Social barriers to healthcare: There are no food insecurities, there is no issue with transportation, there are no insurance barriers. Disposition: I discussed with the patient need for admission. Patient was given 1 L of IV fluid. Patient was given aspirin prophylactically for troponin. Patient does have cardiac history. We are currently working on her medications to get a list, patient's daughter does not know the list. Patient will be given IV Rocephin. Patient will be admitted to the hospitalist, Dr. Terrazas is PCP. [id number] Dr. Sosa is aware of elevated troponin and D-dimer. We will repeat elevated troponin, patient be admitted for [facility] telemetry Lab Data Lab results reviewed: Yes I reviewed the patient's lab results Labs: Lab Results 07/22/24 07/22/24 07/22/24 Range/Units 06:10 07:06 07:33 WBC 8.8 (4.0-11.0) 10^3/uL RBC 3.55 L (4.20-5.40) 10^6/uL Hgb 11.2 L (12.0-16.0) g/dL Hct 34.8 L (36.0-48.0) % MCV 98.0 (81.0-99.0) fL MCH 31.5 (26.7-34.0) pg MCHC 32.2 (29.9-35.2) g/dL RDW 13.6 (11.0-15.0) % Plt Count 188 (150-450) 10^3/uL MPV 10.0 (9.5-13.5) fL Neut % (Auto) 86.0 H (43.0-75.0) % Lymph % (Auto) 4.6 L (20.5-60.0) % [place] % (Auto) 8.7 (1.7-12.0) % Eos % (Auto) 0.0 L (0.9-7.0) % Baso % (Auto) 0.2 (0.2-2.0) % Neut # (Auto) 7.5 H (1.4-6.5) 10^3/uL Lymph # (Auto) 0.4 L (1.2-3.8) 10^3/uL [place] # (Auto) 0.8 (0.3-0.8) 10^3/uL Eos # (Auto) 0.0 (0.0-0.7) 10^3/uL Baso # (Auto) 0.0 (0.0-0.1) 10^3/uL Abs Immat Gran (auto) 0.04 H (0.00-0.03) 10^3/uL Imm/Tot Granulo (auto) 0.5 (0.0-0.5) % D-Dimer 2.37 H* (<=0.59) mg/L FEU VBG pH 7.395 (7.330-7.430) VBG pCO2 46.3 (40.0-52.0) mmHg Sodium 140 (136-145) mmol/L Potassium 4.8 (3.5-5.1) mmol/L Chloride 100 (98-107) mmol/L Carbon Dioxide 33.9 H (21.0-32.0) mmol/L Anion Gap 10.9 BUN 33.0 H (7.0-18.0) mg/dL Creatinine 1.41 H (0.55-1.02) mg/dL Est GFR ( Amer) 43 L (>=60 mL/min/1.73m^2) Est GFR (Non-Af Amer) 36 L (>=60 mL/min/1.73m^2) BUN/Creatinine Ratio 23.4 Glucose 138 H (74-106) mg/dL Lactate 1.8 (0.4-2.0) mmol/L Calcium 9.4 (8.5-10.1) mg/dL Magnesium 1.9 (1.8-2.4) mg/dL Total Bilirubin 1.1 H (0.2-1.0) mg/dL Direct Bilirubin 0.3 H (0.0-0.2) mg/dL AST 23 (15-37) U/L ALT 25 (14-59) U/L Alkaline Phosphatase 93 (46-116) U/L Total Creatine Kinase 59 (26-192) U/L Troponin I High Sens 163.7 H* (4.0-51.3) pg/mL Total Protein 7.3 (6.4-8.2) g/dL Albumin 3.3 L (3.4-5.0) g/dL Globulin 4.0 g/dL Albumin/Globulin Ratio 0.8 Urine Color Yellow (YELLOW) Urine Clarity Cloudy A (CLEAR) Urine pH 6.0 (5.0-9.0) Ur Specific [place] 1.015 (1.005-1.025) Urine Protein >=300 A (NEG/TRACE) mg/dL Urine Glucose (UA) Negative (NEGATIVE) mg/dL Urine Ketones 15 A (NEGATIVE) mg/dL Urine Occult Blood Large A (NEGATIVE) Urine Nitrite Positive A (NEGATIVE) Urine Bilirubin Negative (NEGATIVE) Urine Urobilinogen 1.0 (0.2-1.0) EU/dL Ur Leukocyte Esterase Moderate A (NEGATIVE) Urine RBC >100 A (0-2) #/HPF Urine WBC >100 A (NONE SEEN) #/HPF Ur Squamous Epith Cells Few A (NONE/RARE) #/LPF Urine Crystals None seen (None Seen) #/HPF Urine Bacteria Moderate A (NONE SEEN) #/HPF Urine Casts None seen (NONE SEEN) #/LPF Urine Mucus None seen (NONE SEEN) Ur Culture Indicated? Yes-[facility] [place] 07/22/24 Range/Units 08:20 WBC (4.0-11.0) 10^3/uL RBC (4.20-5.40) 10^6/uL Hgb (12.0-16.0) g/dL Hct (36.0-48.0) % MCV (81.0-99.0) fL MCH (26.7-34.0) pg MCHC (29.9-35.2) g/dL RDW (11.0-15.0) % Plt Count (150-450) 10^3/uL MPV (9.5-13.5) fL Neut % (Auto) (43.0-75.0) % Lymph % (Auto) (20.5-60.0) % [place] % (Auto) (1.7-12.0) % Eos % (Auto) (0.9-7.0) % Baso % (Auto) (0.2-2.0) % Neut # (Auto) (1.4-6.5) 10^3/uL Lymph # (Auto) (1.2-3.8) 10^3/uL [place] # (Auto) (0.3-0.8) 10^3/uL Eos # (Auto) (0.0-0.7) 10^3/uL Baso # (Auto) (0.0-0.1) 10^3/uL Abs Immat Gran (auto) (0.00-0.03) 10^3/uL Imm/Tot Granulo (auto) (0.0-0.5) % D-Dimer (<=0.59) mg/L FEU VBG pH (7.330-7.430) VBG pCO2 (40.0-52.0) mmHg Sodium (136-145) mmol/L Potassium (3.5-5.1) mmol/L Chloride (98-107) mmol/L Carbon Dioxide (21.0-32.0) mmol/L Anion Gap BUN (7.0-18.0) mg/dL Creatinine (0.55-1.02) mg/dL Est GFR ( Amer) (>=60 mL/min/1.73m^2) Est GFR (Non-Af Amer) (>=60 mL/min/1.73m^2) BUN/Creatinine Ratio Glucose (74-106) mg/dL Lactate (0.4-2.0) mmol/L Calcium (8.5-10.1) mg/dL Magnesium (1.8-2.4) mg/dL Total Bilirubin (0.2-1.0) mg/dL Direct Bilirubin (0.0-0.2) mg/dL AST (15-37) U/L ALT (14-59) U/L Alkaline Phosphatase (46-116) U/L Total Creatine Kinase (26-192) U/L Troponin I High Sens 156.5 H* (4.0-51.3) pg/mL Total Protein (6.4-8.2) g/dL Albumin (3.4-5.0) g/dL Globulin g/dL Albumin/Globulin Ratio Urine Color (YELLOW) Urine Clarity (CLEAR) Urine pH (5.0-9.0) Ur Specific [place] (1.005-1.025) Urine Protein (NEG/TRACE) mg/dL Urine Glucose (UA) (NEGATIVE) mg/dL Urine Ketones (NEGATIVE) mg/dL Urine Occult Blood (NEGATIVE) Urine Nitrite (NEGATIVE) Urine Bilirubin (NEGATIVE) Urine Urobilinogen (0.2-1.0) EU/dL Ur Leukocyte Esterase (NEGATIVE) Urine RBC (0-2) #/HPF Urine WBC (NONE SEEN) #/HPF Ur Squamous Epith Cells (NONE/RARE) #/LPF Urine Crystals (None Seen) #/HPF Urine Bacteria (NONE SEEN) #/HPF Urine Casts (NONE SEEN) #/LPF Urine Mucus (NONE SEEN) Ur Culture Indicated? ECG Data Attestation: I personally reviewed and interpreted this ECG as follows: (EKG interpretation. Electronic paced rhythm at 70 beats a minute. Normal axis deviation. Artifact noted. QTc of 460) Discharge Plan Discharge Chief Complaint: Altered Mental Status Clinical Impression: Fall, Hypoxia, Contusion of knee, left, Acute UTI, Mild dehydration Altered mental status Qualifiers: Altered mental status type: disorientation Qualified Code(s): R41.0 - Disorientation, unspecified Patient Disposition: Admitted as Observation Time of Disposition Decision: 08:38 Condition: Fair Discharge Date/Time: 07/22/24 09:25
[2024-07-22] MEDS: ASPIRIN 81 MG TAB.CHEW 162 MG PO (08:20)
[2024-07-22] MEDS: 0.9 % SODIUM CHLORIDE 1,000 ML 1000 ML IV (08:21)
[2024-07-22] MEDS: CEFTRIAXONE 1,000 MG in 0.9 % SODIUM CHLORIDE 50 ML 100 MG IV (08:36)
[2024-07-22 08:56] LABS: Troponin I High Sensitivity 156.5 pg/mL (4.0-51.3)
--- OUTSIDE RECORDS SUMMARY | 2024-07-22 09:49 | XMS_ITS | CCD ---
Author Organization [facility] CliniSyvt Care Team Providers Care Rate Quoting Operator Name Role Phone KEANU ISLAS Admitting [...] Consulting Unavailable CHERY, SHELDON Consulting Unavailable KEANU SILAS Admitting Unavailable KEANU ISLAS Attending Unavailable EMILY, DR GRANT Primary Care Unavailable SINA, DR JOEL Petesren Consulting Unavailable ELIUDKEANU Oh Consulting Unavailable CHERY, SHELDON Consulting Unavailable CHERY, SHELDON Attending Unavailable CHERY, SHELDON Admitting Unavailable EMILY, DR GRANT Primary Care Unavailable OBELIEL CELESTE Attending Unavailable OLE YANG Referring Unavailable OLE YANG Primary Care Unavailable Ole Yang MD Unavailable [phone] Ole Yang MD Primary Care Provider [phone] [place] GROUP MANAGER, Bea Unavailable Letty ALONZO Debora Unavailable [phone] Ole Yang MD Primary Care Provider [phone] [place] GROUP MANAGER, Edna Unavailable Unavailable OLE YANG Attending Unavailable [...] Drug Class(es) Dates Sig (Normalized) Sig (Original) [id number] 200 actuat albuterol 0.09 mg/actuat metered dose [...] (Lipitor) 80 MG tablet Indications: Atherosclerosis of [place] coronary artery of [place] heart without angina pectoris (CMS/HCC) Take 1 tablet (80 mg) by mouth Daily 100 tablet 3 03/02/2024 Active Start: 12-11-2023 atorvastatin ( Lipitor) 80 MG tablet Indications: Atherosclerosis of [place] coronary artery of [place] heart without angina pectoris (CMS/HCC) TAKE 1 TABLET EVERY MORNING 100 tablet 3 12/11/2023 Active Start: 02-18-2023 End: 02-17-2023 take 1 tablet by mouth in the morning atorvastatin (Lipitor) 80 MG tablet Indications: Atherosclerosis [place] coronary artery of [place] heart without angina pectoris (CMS/HCC) Take 1 tablet (80 mg) by mouth in the morning. 100 tablet 3 02/18/2023 Active Start: 08-03-2022 take 1 tablet by christie th in the morning atorvastatin (Lipitor) 80 MG tablet Indications: Atherosclerosis [place] coronary artery of [place] heart without angina pectoris (CMS/HCC) Take 1 tablet (80 mg) by mouth in the morning. 100 tablet 3 02/18/2023 Active 120 actuat budesonide 0.16 mg/actuat / formoterol fumarate 0.0048 mg/actuat / glycopyrrolate 0.009 mg/actuat metered dose inhaler (20 sources) Corticosteroid, beta2-Adrenergic Agonist Start: 03-16-2024 take 2 puff(s) by inhalation in the morning Fsuawky-Dbjfggdcxyl-Gmxamejxvm (Breztri Aerosphere) 160-9-4.8 MCG/ACT aerosol Indications: Pulmonary [...] Translations: [Chronic kidney disease, stage 3b (HCC) ([facility]/HCC)] Onset: 02-25-2024 02-25-2024 Chronic Chronic obstructive pulmonary [...] angina pectoris; Translations: [Atherosclerotic heart disease of [place] coronary artery without angina pectoris] Onset: 09-24-2015 [...] Long-term current use of anticoagulant; Translations: [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] Onset: 02-11-2023 02-11-2023 [...] 06-02-2024 05-27-2023 Other aftercare (1 source) 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; Translations: [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] Onset: 06-18-2021 Episodic Other aftercare (1 source) Other jail (current) drug therapy; Translations: [OTH HALF-WAY CURRENT DRUG THERAPY] Onset: 06-18-2021 Episodic Other [...] on above: Performed By: #### 6 399, 81996, 496, 7600 #### [facility] [place] [address] Director Of Hospitality: Robbie Garnica MD Chloride [Moles/Vol] 108 mmol/L Normal 98-110 [facility] Comment on above: Performed By: #### 6 399, 45411, 496, 7600 #### [facility] [place] [address] Director Of Hospitality: Robbie Garnica MD CO2 [Moles/Vol] 26 mmol/L Normal 20-32 [facility] Comment on above: Performed By: #### 6 399, 32805, 496, 7600 #### [facility] [place] [address] Director Of Hospitality: Robbie Garnica MD Creatinine [Mass/Vol] 1.15 mg/dL High 0.60-0.95 [facility] Comment on above: Performed By: #### 6 399, 51792, 496, 7600 #### [facility] [place] [address] Director Of Hospitality: Robbie Garnica MD GFR/1.73 sq M.predicted among non-blacks MDRD (S/P/Bld) [Vol rate/Area] 48 mL/min/{1.73_m2} Low > OR = 60 [facility] Comment on above: Performed By: #### 6 399, 39183, 496, 7600 #### [facility] [place] [address] Director Of Hospitality: Robbie Garnica MD Glucose [Mass/Vol] 96 mg/dL Normal 65-99 [facility] Comment on above: Result Comment: Fasting reference interval Performed By: #### 6 399, 60419, 496, 7600 #### [facility] [address], [address] [place] [address] Director Of Hospitality: Robbie Garnica MD Potassium [Moles/Vol] 5.1 mmol/L Normal 3.5-5.3 [facility] Comment on above: Performed By: #### 6 399, 76479, 496, 7600 #### [facility] [place] [address] Director Of Hospitality: Robbie Garnica MD Sodium [Moles/Vol] 142 mmol/L Normal 135-146 [facility] Comment on above: Performed By: #### 6 399, 33895, 496, 7600 #### [facility] [place] [address] Director Of Hospitality: Robbie Garnica MD Urea nitrogen [Mass/Vol] 33 mg/dL High 7-25 [facility] Comment on above: Performed By: #### 6 399, 00440, 496, 7600 #### [facility] [place] [address] Director Of Hospitality: Robbie Garnica MD Urea nitrogen/Creatinin e [Mass ratio] 29 mg/mg High 6-22 [facility] Comment on above: Performed By: #### 6 399, 80708, 496, 7600 #### [facility] [place] [address] Director Of Hospitality: Robbie Garnica MD CBC (INCLUDES DIFF/PLT)on Basophils (Bld) [#/Vol] 0.039 10*3/uL Normal 0-200 [facility] Comment on above: Performed By: #### 6 399, 64931, 496, 7600 #### [facility] [place] [address] Director Of Hospitality: Robbie Garnica MD Basophils/100 WBC (Bld) 0.6 % Normal [facility] Comment on above: Performed By: #### 6 399, 02926, 496, 7600 #### [facility] [place] [address] Director Of Hospitality: Robbie Garnica MD Eosinophils (Bld) [#/Vol] 0.241 10*3/uL Normal 15-500 [facility] Comment on above: Performed By: #### 6 399, 08310, 496, 7600 #### [facility] [place] [address] Director Of Hospitality: Robbie Garnica MD Eosinophils/100 WBC (Bld) 3.7 % Normal [facility] Comment on above: Performed By: #### 6 399, 47165, 496, 7600 #### [facility] [place] [address] Director Of Hospitality: Robbie Garnica MD Erythrocyte distribution width (RBC) [Ratio] 12.5 % Normal 11.0-15.0 [facility] Comment on above: Performed By: #### 6 399, 93263, 496, 7600 #### [facility] [place] [address] Director Of Hospitality: Robbie Garnica MD Hematocrit (Bld) [Volume fraction] 38.9 % Normal 35.0-45.0 [facility] Comment on above: Performed By: #### 6 399, 30609, 496, 7600 #### [facility] [place] [address] Director Of Hospitality: Robbie Garnica MD Hemoglobin (Bld) [Mass/Vol] 12.6 g/dL Normal 11.7-15.5 [facility] Comment on above: Performed By: #### 6 399, 77398, 496, 7600 #### [facility] [place] [address] Director Of Hospitality: Robbie Garnica MD Lymphocytes (Bld) [#/Vol] 1.053 10*3/uL Normal 850-3900 [facility] Comment on above: Performed By: #### 6 399, 47875, 496, 7600 #### [facility] [place] [address] Director Of Hospitality: Robbie Garnica MD Lymphocytes/100 WBC (Bld) 16.2 % Normal [facility] Comment on above: Performed By: #### 6 399, 63975, 496, 7600 #### [facility] [place] [address] Director Of Hospitality: Robbie Garnica MD MCH (RBC) [Entitic mass] 30.4 pg Normal 27.0-33.0 [facility] Comment on above: Performed By: #### 6 399, 96198, 496, 7600 #### [facility] [place] [address] Director Of Hospitality: Robbie Garnica MD MCHC (RBC) [Mass/Vol] 32.4 [...] clinical condition. Performed By: #### 6 399, 29206, 496, 7600 #### [facility] [place] [address] Director Of Hospitality: Robbie Garnica MD MCV (RBC) [Entitic vol] 93.7 fL Normal 80.0-100.0 [facility] Comment on above: Performed By: #### 6 399, 49593, 496, 7600 #### [facility] [place] [address] Director Of Hospitality: Robbie Garnica MD Monocytes (Bld) [#/Vol] 0.475 10*3/uL Normal 200-950 [facility] Comment on above: Performed By: #### 6 399, 24220, 496, 7600 #### [facility] of [address], [address] [place] [address] Director Of Hospitality: Robbie Garnica MD Monocytes/100 WBC (Bld) 7.3 % Normal [facility] Comment on above: Performed By: #### 6 399, 46315, 496, 7600 #### [facility] [place] [address] Director Of Hospitality: Robbie Garnica MD Neutrophils (Bld) [#/Vol] 4.693 10*3/uL Normal 2875-3791 [facility] Comment on above: Performed By: #### 6 399, 82619, 496, 7600 #### [facility] [place] [address] Director Of Hospitality: Robbie Garnica MD Neutrophils/100 WBC (Bld) 72.2 % Normal [facility] Comment on above: Performed By: #### 6 399, 15004, 496, 7600 #### [facility] [place] [address] Director Of Hospitality: Robbie Garnica MD Platelet mean volume (Bld) [Entitic vol] 11.4 fL Normal 7.5-12.5 [facility] Comment on above: Performed By: #### 6 399, 87775, 496, 7600 #### [facility] [place] [address] Director Of Hospitality: Robbie Garnica MD Platelets (Bld) [#/Vol] 186 10*3/uL Normal 140-400 [facility] Comment on above: Performed By: #### 6 399, 04406, 496, 7600 #### [facility] [place] [address] Director Of Hospitality: Robbie Garnica MD RBC (Bld) [#/Vol] 4.15 10*6/uL Normal 3.80-5.10 [facility] Comment on above: Performed By: #### 6 399, 40248, 496, 7600 #### [facility] [place] [address], [address] [place] [address] Director Of Hospitality: Robbie Garnica MD WBC (Bld) [#/Vol] 6.5 10*3/uL Normal 3.8-10.8 [facility] Comment on above: Performed By: #### 6 399, 03395, 496, 7600 #### [facility] [address], [address] [place] [address] Director Of Hospitality: Robbie Garnica MD HEMOGLOBIN A1con 06-07-2024 HbA1c [...] for children. Performed By: #### 6 399, 64815, 496, 7600 #### [facility] [address], [address] [place] [address] Director Of Hospitality: Robbie Garnica MD LIPID PANEL, STANDARDon 05-18 Cholesterol [Mass/Vol] 118 mg/dL Normal <200 [facility] Comment on above: Order Comment: FASTI NG:YES FASTING: YES Performed By: #### 6 399, 99019, 496, 7600 #### [facility] [address], [address] [place] [address] Director Of Hospitality: Robbie Garnica MD Cholesterol in HDL [Mass/Vol] 54 mg/dL Normal > OR = 50 [facility] Comment on above: Order Comment: FASTI NG:YES FASTING: YES Performed By: #### 6 399, 63402, 496, 7600 #### [facility] [address], [address] [place] [address] Director Of Hospitality: Robbie Garnica MD Cholesterol in LDL [Mass/Vol] [...] LDL-C. Damion HELTON et al. CONSUELO. 2013;310(19): 3835-1448 (http://education.Face to Face Live.NOTIK/faq/FGT824) Performed By: #### 6 399, 32237, 496, 7600 #### [facility] [address], [address] [place] [address] Director Of Hospitality: Robbie Garnica MD Cholesterol.total/ Cholesterol in HDL [Mass ratio] 2.2 {ratio} Normal <5.0 [facility] Comment on above: Order Comment: FASTI NG:YES FASTING: YES Performed By: #### 6 399, 72599, 496, 7600 #### [facility] [place] [address] Director Of Hospitality: Robbie Garnica MD NON HDL CHOLESTEROL 64 mg/dL (calc) Normal <130 [facility] Comment on above: Order Comment: FASTI NG:YES FASTING: YES Result Comment: For patients with diabetes plus 1 major ASCVD risk factor, treating to a non-HDL-C goal of <100 mg/dL (LDL-C of <70 mg/dL) is considered a therapeutic option. Performed By: #### 6 399, 40261, 496, 7600 #### [facility] [address], [address] [place] [address] Director Of Hospitality: Robbie Garnica MD Triglyceride [Mass/Vol] 66 mg/dL Normal <150 [facility] Comment on above: Order Comment: FASTI NG:YES FASTING: YES Performed By: #### 6 399, 39470, 496, 7600 #### [facility] [address], [address] [place], [place] [id number] Director Of Hospitality: Robbie Garnica MD VITAMIN D,25-OH,TOTAL,IAon 0 06-07-2024 [...] D, (D2,D3), LC/MS/MS is recommended: order code 62428 (patients >2yrs). See Note 1 Note 1 For additional information, please refer to http://education.DriverTech/faq/SDN089 (This link is being provided for informational/ educational purposes only.) Performed By: #### 6 399, 96232, 496, 9870 #### [address], [address] [place], [place] [id number] Director Of Hospitality: Robbie Garnica MD ALL T3 FREEon 05-23-2024 Free T3 [Mass/Vol] 2.72 pg/mL 2.18 - 3. 98 pg/mL [facility] ALL THYROID STIM HORMONEon 0 05-23-2024 Interpretation and review of laboratory results Abnormal [facility] TSH Qn 4.74 m[IU]/L High [facility] ALL THYROXINE (T4) FREEon Free T4 [Mass/Vol] 0.98 ng/dL 0.76 - 1. 46 ng/dL Critical access hospital No [facility] Spoke with patient a nd made her aware to start taking full tablet of spironolactone starting tomorrow per Dr. Sanchez. Advised her to still cut lisinopril tablet in half. She will continue to track BP's and call us with updates. Patient verbalized understanding. Normal [facility] 36 Patient called to ma ke you aware that since decreasing spironolactone and lisinopril yesterday her BP has been: 147/92 160/108 172/118 I told her to take the other half tablet of spironolactone right now. Any other recommendations? Please advise. Thanks Normal [facility] Office Visiton 01-25-2024 Follow-up visit [id number] Lluvia Moreno 1940 F Date Provider Department Center 01/25/2024 CLAUDIO HASSAN Family History Problem Relation Age of Onset Colon cancer Father Coronary artery disease Brother Hypertension Brother Kidney cancer Brother Family Status - Relation Status Age at Father Brother Level of Service:11952 NE OFFICE/OUTPATIENT ESTABLISHED MOD MDM 30 MIN Reason for Visit and Comments: Atrial Fibrillation [80] - Had thyroid function last month. Shortness of Breath [766572] Hypertension [154586] Cardiomyopathy [104] Valve Disorder [3372] Coronary Artery Disease [187] Congestive Heart Failure [127] - Admitted to [facility] in August 2023 for COPD, hypertension, and CHF. Pacemaker Check [337] - Per device rep, all looks good, no events . [facility] ALL THYROXINE (T4) FREEon Free T4 [Mass/Vol] 1.02 ng/dL 0.76 - 1. 46 ng/dL [facility] Office Visiton 08-07-2023 Follow-up visit [id number] Lluvia Moreno 1940 F Date Provider Department Center 08/07/2023 CLAUDIO HASSAN Family History Problem Relation Age of Onset Colon cancer Father Coronary artery disease Brother Hypertension Brother Kidney cancer Brother Family Status - Relation Status Age at Father Brother Level of Service:86762 NE OFFICE/OUTPATIENT ESTABLISHED MOD MDM 30 MIN [facility] FREE T3on 05-14-2022 FREE T3 2.54 pg/mlL Normal 2.18-3.98 [facility] Comment on above: Performed By: #### F T3, TSH #### [facility] [address] [place] [address] [address] Hugo Yang FREE T4on 05-14-2022 Free T4 [Mass/Vol] 1.09 ng/dL Normal 0.76-1.[address] [facility] Comment on above: Performed By: #### F T4 #### [facility] [address] [place], [place] [address] Dr. Hugo Yang TSHon 05-14-2022 TSH 3.015 uIU/mL Normal 0.358-3.740 [facility] Comment on above: Performed By: #### F T3, TSH #### [facility] [address] [place], [place] [address] HEAD WO CONon [...] by: JOEL GARCIA Date: 2022-03-19 10:33 Normal [facility] XR DEXA BONE DENSITYon 03-19 XR [...] by: JOEL GARCIA Date: 2022-03-19 11:11 Normal [facility] ECHOCARDIO M/2D COMPLETEon 1 02-22-2021 ECHOCARDIO M/2D COMPLETE Patient: LLUVIA MORENO Exam Date: 12/23/2021 : 1940 Gender:F Ordering : SHELDON GOTTLIEB [facility] Admission #: [id number] Family : DR OLE YANG M.D. Order #: [id number] CLICK HERE TO VIEW EXAM ECHOCARDIOGRAM REPORT [...] M.D. on 12/24/2021 at 15:56 Normal [facility] FREE T3on 11-25-2021 FREE T3 1.97 pg/mlL Critically low 2.18-3.98 [facility] Comment on above: Performed By: #### F T3, TSH #### [facility] [address] [place] [address] Dr. Hugo Yang FREE T4on 11-25-2021 Free T4 [Mass/Vol] 1.00 ng/dL Normal 0.76-1.46 [facility] Comment on above: Performed By: #### F T3, TSH #### [facility] [address] [place] [address] Dr. Hugo Yang LIVER PROFILEon 11-25-2021 Albumin [Mass/Vol] 3.9 g/dL Normal 3.4-5.0 [facility] Comment on above: Performed By: #### F T3, TSH #### [facility] [address] [place] [address] Dr. Hugo Yang Albumin/Globulin [Mass ratio] 1.1 {ratio} Normal [facility] Comment on above: Performed By: #### F T3, TSH #### [facility] [address] [place] [address] Dr. Hugo Yang ALP [Catalytic activity/Vol] 94 U/L Normal 46-116 [facility] Comment on above: Performed By: #### F T3, TSH #### [facility] [address] [place] [address] Dr. Hugo Yang ALT [Catalytic activity/Vol] 41 U/L Normal 14-59 [facility] Comment on above: Performed By: #### F T3, TSH #### [facility] [address] [place] [address] Dr. Hugo Yang AST [Catalytic activity/Vol] 25 U/L Normal 15-37 [facility] Comment on above: Performed By: #### F T3, TSH #### [facility] [address] [place] [address] Dr. Hugo Yang BILI, CONJUGATED 0.2 mg/dL Normal 0.0-0.2 [facility] Comment on above: Performed By: #### F T3, TSH #### [facility] [address] [place] [address] [address] Hugo Yang Bilirubin [Mass/Vol] 0.8 mg/dL Normal 0.2-1.0 [facility] Comment on above: Performed By: #### F T3, TSH #### [facility] [address] [place] [address] [address] Hugo Yang Globulin (S) [Mass/Vol] 3.5 g/dL Normal [facility] Comment on above: Performed By: #### F T3, TSH #### [facility] [address] [place] [address] [address] Hugo Yang Protein [Mass/Vol] 7.4 g/dL Normal 6.4-8.[address] [facility] Comment on above: Performed By: #### F T3, TSH #### [facility] [address] [place] [address] [address] Hugo Yang TSHon 11-25-2021 TSH 2.892 uIU/mL Normal 0.358-3.740 [facility] Comment on above: Performed By: #### F T3, TSH #### [facility] [address] [place] [address] [address] Hugo Yang US PIPER DOP LEG [...] JOEL GARCIA Date: 2021-09-04 12:18 Normal [facility] Cardiovascular Lab Reporton 08-21-2021 Cardiovascular Lab Report [facility] Patient Name: [facility] MR #: [id number] Physician: Keanu Islas MD Department of Service Date: 08/21/2021 Medicine Birthdate: 1940 Division of Room #: CC Cardiology Adult Cardiovascular Services [facility] [address] [place] [address] Cardiovascular Laboratory Report TBIV-UPGRADE PROCEDURE NOTE DATE OF PROCEDURE: 08/21/2021 PERFORMING PHYSICIAN: Dr. Keanu Islas CONSENT: Patient LOCATION: EP Lab PROCEDURE PERFORMED: 1. Implantation of Biventricular ICD ([employer]). 2. Explantation of previously implanted pacemaker generator ([employer]). 3. RV pacing lead and extraction. [...] proceeded to place an LV lead. The Normanna sheath was advanced, and with the wire, the CS os was accessed. However there was no support and so I used an amplatz wire for support. The inner cannula was then advanced into the CS body. The inner cannula was then removed and venogram was performed. [place] catheter was advanced and venogram was performed. This revealed a good posterolateral vein, but other than that, an anterior vein was noted, but no significant other branches were seen. After this, a 0.014 wire was passed through the [place]-Sarah catheter and traversed into the posterolateral vein. However, the wire was short enough and we could not get a good grasp at the end. So, thereafter, the [place]-Sarah catheter was removed and 90-degree inner cannula was used to access the vein. A longer 0.014 wire tracked into the vein. Over this, a [employer] Acuity straight lead was advanced and placed [...] t (more content not included)... Normal [facility]on SARS-CoV-2 (COVID-19) RNA SONA+probe Ql (Unsp spec) Not detected Normal NOT DETECTED [facility] Comment on above: Result Comment: When diagnostic [...] for this test is supported by the [place] of Health and Human Service's declaration that [...] used). Performed By: #### B MP #### [facility] [address] [place] [address] Dr. Hugo Yang HEMOGRAM AND PLATELon 2021 Hematocrit (Bld) [Volume fraction] 43.7 % Normal 36.0-48.0 [facility] Comment on above: Performed By: #### C BC #### [facility] [address] [place] [address] Dr. Hugo Yang Hemoglobin (Bld) [Mass/Vol] 14.2 g/dL Normal 12.0-16.0 [facility] Comment on above: Performed By: #### C BC #### [facility] [address] [place] [address] Dr. Hugo Yang MCH (RBC) [Entitic mass] 31.0 pg Normal 26.7-34.0 [facility] Comment on above: Performed By: #### C BC #### [facility] [address] [place] [address] Dr. Hugo Yang MCHC (RBC) [Mass/Vol] 32.5 g/dL Normal 29.9-35.2 [facility] Comment on above: Performed By: #### C BC #### [facility] [address] [place] [address] Dr. Hugo Yang MCV (RBC) [Entitic vol] 95.4 fL Normal 81.0-99.0 [facility] Comment on above: Performed By: #### C BC #### [facility] [address] [place] [address] Dr. Hugo Yang PLT 161 103/ul Normal 150-450 [facility] Comment on above: Performed By: #### C BC #### [facility] [address] [place] [address] Dr. Hugo Yang RBC 4.58 106/ul Normal 4.20-5.40 [facility] Comment on above: Performed By: #### C BC #### [facility] [address] [place] [address] Dr. Hugo Yang WBC 6.9 103/ul Normal 4.0-11.0 [facility] Comment on above: Performed By: #### C BC #### [facility] [address] [place] [address] Dr. uHgo Yang PROF CHEM 8 (BAS METB)on Anion gap [Moles/Vol] 11.5 mmol/L Normal [facility] Comment on above: Performed By: #### B MP #### [facility] [address] [place] [place] [address] Dr. Hugo Yang Calcium [Mass/Vol] 9.6 mg/dL Normal 8.5-10.1 [facility] Comment on above: Performed By: #### B MP #### [facility] [address] [place] [address] Dr. Hugo Yang Chloride [Moles/Vol] 104 mmol/L Normal 98-107 [facility] Comment on above: Performed By: #### B MP #### [facility] [address] [address] [address] Hugo Yang CO2 [Moles/Vol] 30.6 mmol/L Normal 21.0-32.0 [facility] Comment on above: Performed By: #### B MP #### [facility] [address] [address] [address] Hugo Yang Creatinine [Mass/Vol] 1.24 mg/dL Critically high 0.55-1.02 [facility] Comment on above: Performed By: #### B MP #### [facility] [address] [address] [address] Hugo Yang EGFR-AF MONEGASQUE 51 mL/min/1.73m2 Critically low >=60 [facility] Comment on above: Performed By: #### B MP #### [facility] [address] [address] [address] Hugo Yang EGFR-NON AF MONEGASQUE 42 mL/min/1.73m2 Critically low >=60 [facility] Comment on above: Performed By: #### B MP #### [facility] [address] [address] [address] Hugo Yang Glucose [Mass/Vol] 111 mg/dL Critically high 74-106 [facility] Comment on above: Performed By: #### B MP #### [facility] [address] [address] [address] Hugo Yang Potassium [Moles/Vol] 5.1 mmol/L Normal 3.5-5.1 [facility] Comment on above: Performed By: #### B MP #### [facility] [address] [address] [address] Hugo Yang Sodium [Moles/Vol] 141 mmol/L Normal 136-[address] [facility] Comment on above: Performed By: #### B MP #### [facility] [address] [address] [address] Hugo Yang Urea nitrogen [Mass/Vol] 31.0 mg/dL Critically high 7.0-18.0 [facility] Comment on above: Performed By: #### B MP #### [facility] [address] [address] [address] Hugo Yang Urea nitrogen/Creatinin e [Mass ratio] 25.0 mg/mg Normal [facility] Comment on above: Performed By: #### B MP #### [facility] [address] [place] [address] Dr. Hugo Yang BNPon 07-30-2021 Natriuretic peptide B (Bld) [Mass/Vol] 1994.0 pg/mL Critically high <=1,800.0 [facility] Comment on above: Performed By: #### C BC #### [facility] [address] [place] [address] Dr. Hugo Yang PROF CHEM 8 (BAS METB)on Anion gap [Moles/Vol] 11.3 mmol/L Normal [facility] Comment on above: Performed By: #### C BC #### [facility] [address] [place] [address] Dr. Hugo Yang Calcium [Mass/Vol] 9.7 mg/dL Normal 8.5-10.[address] [facility] Comment on above: Performed By: #### C BC #### [facility] [address] [place] [address] Dr. Hugo Yang Chloride [Moles/Vol] 104 mmol/L Normal 98-107 [facility] Comment on above: Performed By: #### C BC #### [facility] [address] [place] [address] Dr. Hugo Yang CO2 [Moles/Vol] 29.6 mmol/L Normal 21.0-32.0 [facility] Comment on above: Performed By: #### C BC #### [facility] [address] [place] [address] Dr. Hugo Yang Creatinine [Mass/Vol] 1.28 mg/dL Critically high 0.55-1.02 [facility] Comment on above: Performed By: #### C BC #### [facility] [address] [place] [address] Dr. Hugo Yang EGFR-AF MONEGASQUE 49 mL/min/1.73m2 Critically low >=60 [facility] Comment on above: Performed By: #### C BC #### [facility] [address] [address] [address] Hugo Yang EGFR-NON AF MONEGASQUE 40 mL/min/1.73m2 Critically low >=60 [facility] Comment on above: Performed By: #### C BC #### [facility] [address] [address] [address] Hugo Yang Glucose [Mass/Vol] 119 mg/dL Critically high 74-106 [facility] Comment on above: Performed By: #### C BC #### [facility] [address] [address] [address] Hugo Yang Potassium [Moles/Vol] 4.9 mmol/L Normal 3.5-5.1 [facility] Comment on above: Performed By: #### C BC #### [facility] [address] [address] [address] Hugo Yang Sodium [Moles/Vol] 140 mmol/L Normal 136-[address] [facility] Comment on above: Performed By: #### C BC #### [facility] [address] [address] [address] Hugo Yang Urea nitrogen [Mass/Vol] 30.0 mg/dL Critically high 7.0-18.0 [facility] Comment on above: Performed By: #### C BC #### [facility] [address] [address] [address] Hugo Yang Urea nitrogen/Creatinin e [Mass ratio] 23.4 mg/mg Normal [facility] Comment on above: Performed By: #### C BC #### [facility] [address] [address] [address] Hugo Yang FREE T3on 06-28-2021 FREE T3 2.64 pg/mlL Normal 2.18-3.98 [facility] Comment on above: Performed By: #### F T3, TSH #### [facility] [address] [address] [address] Hugo Yang FREE T4on 06-28-2021 Free T4 [Mass/Vol] 1.19 ng/dL Normal 0.76-1.46 [facility] Comment on above: Performed By: #### B MP #### [facility] [address] [address] [address] Hugo Yang LIVER PROFILEon 06-28-2021 Albumin [Mass/Vol] 3.8 g/dL Normal 3.4-5.[address] [facility] Comment on above: Performed By: #### F T3, TSH #### [facility] [address] [address] [address] Hugo Yang Albumin/Globulin [Mass ratio] 1.2 {ratio} Normal [facility] Comment on above: Performed By: #### F T3, TSH #### [facility] [address] [place] [address] Dr. Hugo Yang ALP [Catalytic activity/Vol] 88 U/L Normal 46-116 [facility] Comment on above: Performed By: #### F T3, TSH #### [facility] [address] [place] [address] Dr. Hugo Yang ALT [Catalytic activity/Vol] 54 U/L Normal 14-59 [facility] Comment on above: Performed By: #### F T3, TSH #### [facility] [address] [place] [address] Dr. Hugo Yang AST [Catalytic activity/Vol] 36 U/L Normal 15-37 [facility] Comment on above: Performed By: #### F T3, TSH #### [facility] [address] [address] [address] Hugo Yang BILI, CONJUGATED 0.3 mg/dL Critically high 0.0-0.2 [facility] Comment on above: Performed By: #### F T3, TSH #### [facility] [address] [address] [address] Hugo Yang Bilirubin [Mass/Vol] 0.9 mg/dL Normal 0.2-1.0 [facility] Comment on above: Performed By: #### F T3, TSH #### [facility] [address] [place] [place] [address] Dr. Hugo Yang Globulin (S) [Mass/Vol] 3.3 g/dL Normal [facility] Comment on above: Performed By: #### F T3, TSH #### [facility] [address] [address] [address] Hugo Yang Protein [Mass/Vol] 7.1 g/dL Normal 6.4-8.[address] [facility] Comment on above: Performed By: #### F T3, TSH #### [facility] [address] [place] [address] Dr. Hugo Yang PROF CHEM 8 (BAS METB)on Anion gap [Moles/Vol] 13.6 mmol/L Normal [facility] Comment on above: Performed By: #### B MP #### [facility] [address] [place] [place] [address] Dr. Hugo Yang Calcium [Mass/Vol] 9.5 mg/dL Normal 8.5-10.1 [facility] Comment on above: Performed By: #### B MP #### [facility] [address] [place] [address] Dr. Hugo Yang Chloride [Moles/Vol] 105 mmol/L Normal 98-107 [facility] Comment on above: Performed By: #### B MP #### [facility] [address] [place] [address] Dr. Hugo Yang CO2 [Moles/Vol] 28.5 mmol/L Normal 21.0-32.0 [facility] Comment on above: Performed By: #### B MP #### [facility] [address] [place] [address] Dr. Hugo Yang Creatinine [Mass/Vol] 1.05 mg/dL Critically high 0.55-1.02 [facility] Comment on above: Performed By: #### B MP #### [facility] [address] [place] [address] Dr. Hugo Yang EGFR-AF MONEGASQUE >60 Normal >=60 [facility] Comment on above: Performed By: #### B MP #### [facility] [address] [place] [place] [address] Dr. Hugo Yang EGFR-NON AF MONEGASQUE 51 mL/min/1.73m2 Critically low >=60 [facility] Comment on above: Performed By: #### B MP #### [facility] [address] [address] [address] Hugo Yang Glucose [Mass/Vol] 113 mg/dL Critically high 74-106 [facility] Comment on above: Performed By: #### B MP #### [facility] [address] [address] [address] Hugo Yang Potassium [Moles/Vol] 5.1 mmol/L Normal 3.5-5.1 [facility] Comment on above: Performed By: #### B MP #### [facility] [address] [place] [address] Dr. Hugo Yang Sodium [Moles/Vol] 142 mmol/L Normal 136-[address] [facility] Comment on above: Performed By: #### B MP #### [facility] [address] [address] [address] Hugo Yang Urea nitrogen [Mass/Vol] 29.0 mg/dL Critically high 7.0-18.0 [facility] Comment on above: Performed By: #### B MP #### [facility] [address] [place] [address] Dr. Hugo Yang Urea nitrogen/Creatinin e [Mass ratio] 27.6 mg/mg Normal [facility] Comment on above: Performed By: #### B MP #### [facility] [address] [place] [place] [address] Dr. Hugo Yang TSHon 06-28-2021 TSH 3.067 uIU/mL Normal 0.358-3.740 [facility] Comment on above: Performed By: #### F T3, TSH #### [facility] [address] [place] [place] [address] Dr. Hugo Yang TSH RANGE SEE BELOW Normal [facility] Comment on above: Result Comment: <0.3 4 UIU/ml HYPERTHYROID 0.34-5.60 UIU/ml EUTHYROID >5.60 UIU/ml HYPOTHYROID Performed By: #### F T3, TSH #### [facility] [address] [place], [place] [address] Dr. Hugo Yang Cardiovascular Lab Reporton 06-21-2021 Cardiovascular Lab Report [facility] Patient Name: [facility] MR #: [id number] Physician: Elizabeth Tejeda, Department of M.D. Medicine Service Date: 06/20/2021 Division of Birthdate: 1940 Cardiology Room #: [facility] Cardiovascular Services [facility] [address] [facility] [place] [address] Cardiovascular Laboratory Report FINAL IMPRESSIONS: 1. 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 2. Otherwise nonobstructive coronary arteries angiographically. 3. Moderately reduced global left ventricular systolic function by noninvasive imaging. 4. Normal right-sided heart pressures and wedge pressure. 5. [id number]-[id number] systemic hypertension. 6. Mildly reduced cardiac output/cardiac [...] bilateral selective coronary angiography, placement of a 6-Togolese MynxGrip closure device. METHODS: After risks, benefits, [...] femoral vein and artery was obtained. A 6-Togolese 11 cm sheath was placed in each. [...] the procedure. All catheters were removed. A 6-Togolese MynxGrip closure device was deployed per protocol [...] E (more content not included)... Normal [facility] BNPon 06-18-2021 Natriuretic peptide B (Bld) [Mass/Vol] 3442.0 pg/mL Critically high <=1,800.0 [facility] Comment on above: Result Comment: TEST REPEATED CRITICAL VALUE VERIFIED Performed By: #### L IPID, BNP, CMP #### [facility] [address] [place] [address] Dr. Hugo Yang CBC AUTO DIFFon 06-18-2021 BASO # 0.1 103/ul Normal 0.0-0.1 [facility] Comment on above: Performed By: #### C BC #### [facility] [address] [place] [place] [address] Dr. Hugo Yang Basophils/100 WBC (Bld) 0.5 % Normal 0.2-2.0 [facility] Comment on above: Performed By: #### C BC #### [facility] [address] [place] [place] [address] Dr. Hugo Yang EO # 0.3 103/ul Normal 0.0-0.7 [facility] Comment on above: Performed By: #### C BC #### [facility] [address] [place] [place] [address] Dr. Hugo Yang Eosinophils/100 WBC (Bld) 2.3 % Normal 0.9-7.0 [facility] Comment on above: Performed By: #### C BC #### [facility] [address] [place] [place] [address] Dr. Hugo Yang Erythrocyte distribution width (RBC) [Ratio] 14.5 % Normal 11.0-15.0 [facility] Comment on above: Performed By: #### C BC #### [facility] [address] [place] [place] [address] Dr. Hugo Yang Hematocrit (Bld) [Volume fraction] 42.3 % Normal 36.0-48.0 [facility] Comment on above: Performed By: #### C BC #### [facility] [address] [place] [place] [address] Dr. Hugo Yang Hemoglobin (Bld) [Mass/Vol] 13.5 g/dL Normal 12.0-16.0 [facility] Comment on above: Performed By: #### C BC #### [facility] [address] [place] [address] Dr. Hugo Yang IG # 0.05 10e3/ul Critically high 0.00-0.03 [facility] Comment on above: Performed By: #### C BC #### [facility] [address] [place] [address] Dr. Hugo Yang IG % 0.4 % Normal 0.0-0.5 [facility] Comment on above: Performed By: #### C BC #### [facility] [address] [place] [address] Dr. Hugo Yang LYMPH # 1.5 103/ul Normal 1.2-3.8 [facility] Comment on above: Performed By: #### C BC #### [facility] [address] [place] [address] Dr. Hugo Yang Lymphocytes/100 WBC (Bld) 12.9 % Critically low 20.5-60.0 [facility] Comment on above: Performed By: #### C BC #### [facility] [address] [place] [address] Dr. Hugo Yang MANUAL DIFF REQ NO Normal [facility] Comment on above: Performed By: #### C BC #### [facility] [address] [place] [address] Dr. Hugo Yang MCH (RBC) [Entitic mass] 30.4 pg Normal 26.7-34.0 [facility] Comment on above: Performed By: #### C BC #### [facility] [address] [place] [address] Dr. Hugo Yang MCHC (RBC) [Mass/Vol] 31.9 g/dL Normal 29.9-35.2 [facility] Comment on above: Performed By: #### C BC #### [facility] [address] [address] [address] Hugo Yang MCV (RBC) [Entitic vol] 95.3 fL Normal 81.0-99.0 [facility] Comment on above: Performed By: #### C BC #### [facility] [address] [address] [address] Hugo Yang MONO # 0.7 103/ul Normal 0.3-0.8 [facility] Comment on above: Performed By: #### C BC #### [facility] [address] [address] [address] Hugo Yang Monocytes/100 WBC (Bld) 6.2 % Normal 1.7-12.0 [facility] Comment on above: Performed By: #### C BC #### [facility] [address] [place] [address] Dr. Hugo Yang NEUT # 8.8 103/ul Critically high 1.4-6.5 [facility] Comment on above: Performed By: #### C BC #### [facility] [address] [place] [address] Dr. Hugo Yang Neutrophils/100 WBC (Bld) 77.7 % Critically high 43.0-75.0 [facility] Comment on above: Performed By: #### C BC #### [facility] [address] [address] [address] Hugo Yang Platelet mean volume (Bld) [Entitic vol] 10.4 fL Normal 9.5-13.5 [facility] Comment on above: Performed By: #### C BC #### [facility] [address] [address] [address] Hugo Yang PLT 199 103/ul Normal 150-450 [facility] Comment on above: Performed By: #### C BC #### [facility] [address] [address] [address] Hugo Yang RBC 4.44 106/ul Normal 4.20-5.40 [facility] Comment on above: Performed By: #### C BC #### [facility] [address] [address] [address] Hugo Yang WBC 11.3 103/ul Critically high 4.0-11.0 [facility] Comment on above: Performed By: #### C BC #### [facility] [address] [address] [address] Hugo Yang [facility]on SARS-CoV-2 (COVID-19) RNA SONA+probe Ql (Unsp spec) Not detected Normal NOT DETECTED [facility] Comment on above: Result Comment: This test is not yet approved or cleared by the [place] FDA. When there are no FDA-approved or cleared tests available, and other criteria are met, FDA can make tests available under an emergency access mechanism called an Emergency Use Authorization (EUA). The EUA for this test is supported by the [employer] of Health and Human Service's (HHS's) declaration [...] Performed By: #### F T3, TSH #### [facility] [address] [address] [address] Hugo Yang LIPID PROFILEon 06-18-2021 CHOL-HDL RATIO NORM SEE BELOW Normal [facility] Comment on above: Result Comment: 3.3 - 4.4 LOW RISK 4.4 - 7.1 AVERAGE RISK 7.1 - 11.0 MODERATE RISK >11.0 HIGH RISK Performed By: #### L IPID, BNP, CMP #### [facility] [address] [address] [address] Hugo Yang Cholesterol [Mass/Vol] 127 mg/dL Normal <=200 [facility] Comment on above: Performed By: #### L IPID, BNP, CMP #### [facility] [address] [address] [address] Hugo Yang Cholesterol in HDL [Mass/Vol] 60 mg/dL Normal 40-60 [facility] Comment on above: Performed By: #### L IPID, BNP, CMP #### [facility] [address] [address] [address] Hugo Ynag Cholesterol in LDL [Mass/Vol] 47.4 mg/dL Normal [facility] Comment on above: Performed By: #### L IPID, BNP, CMP #### [facility] [address] [address] [address] Hugo Yang Cholesterol.total/ Cholesterol in HDL [Mass ratio] 2.1 {ratio} Normal [facility] Comment on above: Performed By: #### L IPID, BNP, CMP #### [facility] [address] [address] [address] Hugo Yang HDL NORMAL > or = 60 mg/dl - LO W CARDIOVASCULAR RISK <40 mg/dl - HIGH CARDIOVASCULAR RISK Normal [facility] Comment on above: Performed By: #### L IPID, BNP, CMP #### [facility] [address] [address] [address] Hugo Yang LDL CALC NORMAL SEE BELOW Normal [facility] Comment on above: Result Comment: <100 mg/dl OPTIMAL 100 - 129 mg/dl NEAR OR ABOVE OPTIMAL 130 - 159 mg/dl BORDERLINE HIGH 160 - 189 mg/dl HIGH >190 mg/dl VERY HIGH Performed By: #### L IPID, BNP, CMP #### [facility] [address] [address] [address] Hugo Yang Triglyceride [Mass/Vol] 98 mg/dL Normal <=150 [facility] Comment on above: Performed By: #### L IPID, BNP, CMP #### [facility] [address] [address] [address] Hugo Yang VLDL CALC 19.6 mg/dL Normal [facility] Comment on above: Performed By: #### L IPID, BNP, CMP #### [facility] [address] [address] [address] Hugo Yang PROF 14(COMP METB)on 022 Albumin [Mass/Vol] 4.0 g/dL Normal 3.4-5.[address] [facility] Comment on above: Performed By: #### L IPID, BNP, CMP #### [facility] [address] [address] [address] Hugo Yang Albumin/Globulin [Mass ratio] 1.3 {ratio} Normal [facility] Comment on above: Performed By: #### L IPID, BNP, CMP #### [facility] [address] [address] [address] Hugo Yang ALP [Catalytic activity/Vol] 82 U/L Normal 46-116 [facility] Comment on above: Performed By: #### L IPID, BNP, CMP #### [facility] [address] [address] [address] Hugo Yang ALT [Catalytic activity/Vol] 52 U/L Normal 14-59 [facility] Comment on above: Performed By: #### L IPID, BNP, CMP #### [facility] [address] [address] [address] Hugo Yang Anion gap [Moles/Vol] 12.9 mmol/L Normal [facility] Comment on above: Performed By: #### L IPID, BNP, CMP #### [facility] [address] [address] [address] Hugo Yang AST [Catalytic activity/Vol] 40 U/L Critically high 15-37 [facility] Comment on above: Performed By: #### L IPID, BNP, CMP #### [facility] [address] [address] [address] Hugo Yang Bilirubin [Mass/Vol] 1.7 mg/dL Critically high 0.2-1.0 [facility] Comment on above: Performed By: #### L IPID, BNP, CMP #### [facility] [address] [address] [address] Hugo Yang Calcium [Mass/Vol] 9.2 mg/dL Normal 8.5-10.[address] [facility] Comment on above: Performed By: #### L IPID, BNP, CMP #### [facility] [address] [address] [address] Hugo Yang Chloride [Moles/Vol] 103 mmol/L Normal 98-107 [facility] Comment on above: Performed By: #### L IPID, BNP, CMP #### [facility] [address] [address] [address] Hugo Yang CO2 [Moles/Vol] 28.9 mmol/L Normal 21.0-32.0 [facility] Comment on above: Performed By: #### L IPID, BNP, CMP #### [facility] [address] [place] [address] Dr. Hugo Yang Creatinine [Mass/Vol] 1.12 mg/dL Critically high 0.55-1.02 [facility] Comment on above: Performed By: #### L IPID, BNP, CMP #### [facility] [address] [place] [address] Dr. Hugo Yang EGFR-AF MONEGASQUE 57 mL/min/1.73m2 Critically low >=60 [facility] Comment on above: Performed By: #### L IPID, BNP, CMP #### [facility] [address] [place] [place] [address] Dr. Hugo Yang EGFR-NON AF MONEGASQUE 47 mL/min/1.73m2 Critically low >=60 [facility] Comment on above: Performed By: #### L IPID, BNP, CMP #### [facility] [address] [place] [address] Dr. Hugo Yang Globulin (S) [Mass/Vol] 3.1 g/dL Normal [facility] Comment on above: Performed By: #### L IPID, BNP, CMP #### [facility] [address] [place] [address] Dr. Hugo Yang Glucose [Mass/Vol] 128 mg/dL Critically high 74-106 T [facility] Comment on above: Performed By: #### L IPID, BNP, CMP #### [facility] [address] [address] [address] Hugo Yang Potassium [Moles/Vol] 4.8 mmol/L Normal 3.5-5.1 [facility] Comment on above: Performed By: #### L IPID, BNP, CMP #### [facility] [address] [place] [address] Dr. Hugo Yang Protein [Mass/Vol] 7.1 g/dL Normal 6.1-8.2 [facility] Comment on above: Performed By: #### L IPID, BNP, CMP #### [facility] [address] [address] [address] Hugo Yang Sodium [Moles/Vol] 140 mmol/L Normal 136-145 [facility] Comment on above: Performed By: #### L IPID, BNP, CMP #### [facility] [address] [place] [address] Dr. Hugo Yang Urea nitrogen [Mass/Vol] 23.0 mg/dL Critically high 7.0-18.0 [facility] Comment on above: Performed By: #### L IPID, BNP, CMP #### [facility] [address] [place] [address] Dr. Hugo Yang Urea nitrogen/Creatinin e [Mass ratio] 20.5 mg/mg Normal [facility] Comment on above: Performed By: #### L IPID, BNP, CMP #### [facility] [address] [place] [address] Dr. Hugo Yang ECHOCARDIO M/2D COMPLETEon 0 06-12-2021 ECHOCARDIO M/2D COMPLETE Patient: LLUVIA MORENO Exam Date: 06/12/2021 : 1940 Gender:F Ordering : SHELDON GOTTLIEB Admission #: [id number] Family : DR OLE YANG M.D. Order #: [id number] CLICK HERE TO VIEW EXAM ECHOCARDIOGRAM REPORT [...] Area(A4C): 31.00 cm2 Left Atrium Systolic Volume(A2C): 300611 mm3 Left Atrium Systolic Volume(A4C): 644043 mm3 Mitral Valve MV E to A [...] M.D. on 06/12/2021 at 16:27 Normal [facility] CBC AUTO DIFFon 06-04-2021 BASO # 0.0 103/ul Normal 0.0-0.1 [facility] Comment on above: Performed By: #### C BC #### [facility] [address] [place] [address] Dr. Hugo Yang Basophils/100 WBC (Bld) 0.6 % Normal 0.2-2.0 [facility] Comment on above: Performed By: #### C BC #### [facility] [address] [place] [address] Dr. Hugo Yang EO # 0.2 103/ul Normal 0.0-0.7 [facility] Comment on above: Performed By: #### C BC #### [facility] [address] [place] [address] Dr. Hugo Yang Eosinophils/100 WBC (Bld) 3.0 % Normal 0.9-7.0 [facility] Comment on above: Performed By: #### C BC #### [facility] [address] [place] [address] Dr. Hugo Yang Erythrocyte distribution width (RBC) [Ratio] 13.7 % Normal 11.0-15.0 [facility] Comment on above: Performed By: #### C BC #### [facility] [address] [place] [address] Dr. Hugo Yang Hematocrit (Bld) [Volume fraction] 42.1 % Normal 36.0-48.0 [facility] Comment on above: Performed By: #### C BC #### [facility] [address] [place] [place] [address] Dr. Hugo Yang Hemoglobin (Bld) [Mass/Vol] 13.3 g/dL Normal 12.0-16.0 [facility] Comment on above: Performed By: #### C BC #### [facility] [address] [place] [address] Dr. Hugo Yang IG # 0.02 10e3/ul Normal 0.00-0.03 [facility] Comment on above: Performed By: #### C BC #### [facility] [address] [place] [address] Dr. Hugo Yang IG % 0.3 % Normal 0.0-0.5 [facility] Comment on above: Performed By: #### C BC #### [facility] [address] [place] [place] [address] Dr. Hugo Yang LYMPH # 1.9 103/ul Normal 1.2-3.8 [facility] Comment on above: Performed By: #### C BC #### [facility] [address] [place] [place] [address] Dr. Hugo Yang Lymphocytes/100 WBC (Bld) 29.2 % Normal 20.5-60.0 [facility] Comment on above: Performed By: #### C BC #### [facility] [address] [place] [address] Dr. Hugo Yang MANUAL DIFF REQ NO Normal [facility] Comment on above: Performed By: #### C BC #### [facility] [address] [place] [place] [address] Dr. Hugo Yang MCH (RBC) [Entitic mass] 30.4 pg Normal 26.7-34.0 [facility] Comment on above: Performed By: #### C BC #### [facility] [address] [place] [place] [address] Dr. Hugo Yang MCHC (RBC) [Mass/Vol] 31.6 g/dL Normal 29.9-35.2 [facility] Comment on above: Performed By: #### C BC #### [facility] [address] [place] [address] Dr. Hugo Yang MCV (RBC) [Entitic vol] 96.3 fL Normal 81.0-99.0 [facility] Comment on above: Performed By: #### C BC #### [facility] [address] [place] [place] [address] Dr. Hugo Yang MONO # 0.6 103/ul Normal 0.3-0.8 [facility] Comment on above: Performed By: #### C BC #### [facility] [address] [place] [place] [address] Dr. Hugo Yang Monocytes/100 WBC (Bld) 8.5 % Normal 1.7-12.0 [facility] Comment on above: Performed By: #### C BC #### [facility] [address] [place] [address] Dr. Hugo Yang NEUT # 3.8 103/ul Normal 1.4-6.5 [facility] Comment on above: Performed By: #### C BC #### [facility] [address] [place] [address] Dr. Hugo Yang Neutrophils/100 WBC (Bld) 58.4 % Normal 43.0-75.0 [facility] Comment on above: Performed By: #### C BC #### [facility] [address] [place] [address] Dr. Hugo Yang Platelet mean volume (Bld) [Entitic vol] 10.9 fL Normal 9.5-13.5 [facility] Comment on above: Performed By: #### C BC #### [facility] [address] [place] [address] Dr. Hugo Yang PLT 163 103/ul Normal 150-450 [facility] Comment on above: Performed By: #### C BC #### [facility] [address] [address] [address] Hugo Yang RBC 4.37 106/ul Normal 4.20-5.40 [facility] Comment on above: Performed By: #### C BC #### [facility] [address] [address] [address] Hugo Yang WBC 6.6 103/ul Normal 4.0-11.0 [facility] Comment on above: Performed By: #### C BC #### [facility] [address] [address] [address] Hugo Yang PROF CHEM 8 (BAS METB)on Anion gap [Moles/Vol] 13.9 mmol/L Normal [facility] Comment on above: Performed By: #### F T3, TSH #### [facility] [address] [place] [place] [address] Dr. Hugo Yang Calcium [Mass/Vol] 9.5 mg/dL Normal 8.5-10.[address] [facility] Comment on above: Performed By: #### F T3, TSH #### [facility] [address] [place] [address] Dr. Hugo Yang Chloride [Moles/Vol] 105 mmol/L Normal 98-107 [facility] Comment on above: Performed By: #### F T3, TSH #### [facility] [address] [address] [address] Hugo Yang CO2 [Moles/Vol] 27.7 mmol/L Normal 22.0-30.0 [facility] Comment on above: Performed By: #### F T3, TSH #### [facility] [address] [place] [address] Dr. Hugo Yang Creatinine [Mass/Vol] 1.19 mg/dL Critically high 0.52-1.04 [facility] Comment on above: Performed By: #### F T3, TSH #### [facility] [address] [place] [address] Dr. Hugo Yang EGFR-AF MONEGASQUE 53 mL/min/1.73m2 Critically low >=60 [facility] Comment on above: Performed By: #### F T3, TSH #### [facility] [address] [address] [address] Hugo Yang EGFR-NON AF MONEGASQUE 44 mL/min/1.73m2 Critically low >=60 [facility] Comment on above: Performed By: #### F T3, TSH #### [facility] [address] [address] [address] Hugo Yang Glucose [Mass/Vol] 112 mg/dL Critically high 74-106 T [facility] Comment on above: Performed By: #### F T3, TSH #### [facility] [address] [place] [address] Dr. Hugo Yang Potassium [Moles/Vol] 4.6 mmol/L Normal 3.4-5.0 [facility] Comment on above: Performed By: #### F T3, TSH #### [facility] [address] [address] [address] Hugo Yang Sodium [Moles/Vol] 142 mmol/L Normal 137-[address] [facility] Comment on above: Performed By: #### F T3, TSH #### [facility] [address] [place] [address] Dr. Hugo Yang Urea nitrogen [Mass/Vol] 28.0 mg/dL Critically high 7.0-18.0 [facility] Comment on above: Performed By: #### F T3, TSH #### [facility] [address] [place] [address] Dr. Hugo Yang Urea nitrogen/Creatinin e [Mass ratio] 23.5 mg/mg Normal [facility] Comment on above: Performed By: #### F T3, TSH #### [facility] [address] [place] [place] [address] Dr. Hugo Yang TROPONIN, HIGH SENSITIVITYon 06-04-2021 HSTROP 27.1 pg/mL Normal 4.0-35.5 [facility] Comment on above: Result Comment: CUT- OFF POINTS HAVE BEEN ESTABLISHED BASED ON THE FOURTH UNIVERSAL DEFINITIONS OF MYOCARDIAL INFARCTION. THE UPPER REFERENCE LIMIT (URL) OF TROPONIN, DEFINED THE 99TH PERCENTILE OF cTnI DISTRIBUTION IN A REFERENCE POPULATION, HAS BEEN CONFIRMED THE DECISION THRESHOLD FOR PR DIAGNOSIS. Performed By: #### F T3, TSH #### [facility] [address], [place] [address] Dr. Hugo Yang XR CHEST 1 Von [...] JOEL GARCIA Date: 2021-06-04 11:09 Normal [facility] Cardiovascular Lab Reporton 12-28-2020 Cardiovascular Lab Report [facility] Patient Name: [facility] MR #: [id number] Physician: Keanu Islas MD Department of Service Date: 12/28/2020 Medicine Birthdate: 1940 Division of Room #: CC Cardiology Adult Cardiovascular Services [address] [place] [address] Cardiovascular Laboratory Report AV NODE ABLATION PROCEDURE [...] prepped and draped. Under ultrasound guidance, an 8-Togolese venous access was procured, and a short [...] Islas MD Date Trans: 12/28/2020 04:43 P/donna [id number] cc: Ole Yang M.D. 3 [facility] [address] Normal [facility] Cardiovascular Lab Reporton 11-19-2020 Cardiovascular Lab Report [facility] MR #: [id number] Physician: Keanu Islas MD Department of Service Date: 11/19/2020 Medicine Birthdate: 1940 Division of Room #: Cardiology Adult Cardiovascular Services [address] [place] [address] Cardiovascular Laboratory Report PACEMAKER IMPLANT PROCEDURE NOTE DATE OF PROCEDURE: 11/19/20 PERFORMING PHYSICIAN: Dr. Keanu Islas CONSENT: Patient LOCATION: EP Lab PROCEDURE PERFORMED: 1. Implantation of pacemaker ([employer]) 2. Ultrasound guided venous access INDICATIONS: [...] using modified seldinger technique using a 5 [place]ese micro-puncture needle on one occasion and 0.35 wire was placed. Local infiltration of 1% Lidocaine was performed, and an incision was created in the left upper chest. Dissection was then performed using cautery down to the fascial plane above the muscle. A small pocket was created for the device. 8 [place]olese Safesheath was placed over the wire. Then a His sheath was advanced over a glide wire into the right ventricle. The wire and dilator was then removed. An active fixation [employer] pacing lead was then delivered through the His sheath to the right ventricle. I identified an area where pacing revealed a QRS of 120ms in unipolar configuration. After confirmation of lead position on orthogonal views (PATEL and BULGARIAN) to confirm septal position, the screw was [...] immediate procedural complications were noted. Device info: [employer] Accolade MRI EL SR IS1 Model# L310 Serial# [id number] RV lead: Model# [id number] (59cms) Serial# [id number] Sensin.3mV Threshold: 0.6V@0.4ms Impedance: 655 Ohms POST [...] 11/19/2020 (more content not included)... Normal [facility] Vital Signs Date Time Vital Sign Value Performing Clinician Facility 06-02-2024 09:47-0400 Body height 167.6 cm Dipti Hemmer PA Work Phone: [facility] 06-02-2024 09:47-0400 Body mass index (BMI) [Ratio] 28.47 kg/m2 Dipti Hemmer PA Work Phone: [facility] 06-02-2024 09:47-0400 Body temperature 99.19 [degF] Dipti Hemmer PA Work Phone: [facility] 06-02-2024 09:47-0400 Body weight 80.02 kg Dipti Hemmer PA Work Phone: [facility] 06-02-2024 09:47-0400 Diastolic blood pressure 64 mm[Hg] Dipti Hemmer PA Work Phone: [facility] 06-02-2024 09:47-0400 Heart rate 70 /min Dipti Hemmer PA Work Phone: [facility] 06-02-2024 09:47-0400 Respiratory rate 16 /min Dipti Hemmer PA Work Phone: [facility] 06-02-2024 09:47-0400 SaO2% (BldA) [Mass fraction] 99 % Dipti Hemmer PA Work Phone: [facility] 06-02-2024 09:47-0400 Systolic blood pressure 102 mm[Hg] Dipti VEGA Work Phone: [facility] 06-01-2024 10:07-0400 Body height 170.2 cm Teri Maritnez MD Work Phone: [facility] 06-01-2024 10:07-0400 Body mass index (BMI) [Ratio] 27.88 kg/m2 Teri Martinez MD Work Phone: [facility] 06-01-2024 10:07-0400 Body weight 80.74 kg Teri Martinez MD Work Phone: [facility] 06-01-2024 10:07-0400 Diastolic blood pressure 82 mm[Hg] Teri Martinez MD Work Phone: [facility] 06-01-2024 10:07-0400 Heart rate 70 /min Teri Martinez MD Work Phone: [facility] 06-01-2024 10:07-0400 Respiratory rate 16 /min Teri Martinez MD Work Phone: [facility] 06-01-2024 10:07-0400 SaO2% (BldA) [Mass fraction] 89 % Teri Martinez MD Work Phone: [facility] 06-01-2024 10:07-0400 Systolic blood pressure 142 mm[Hg] Teri Martinez MD Work Phone: [facility] 03-30-2024 09:57-0500 Body height 167.6 cm Ole Yang MD Work Phone: [facility] 03-30-2024 09:57-0500 Body mass index (BMI) [Ratio] 28.25 kg/m2 Ole Yang MD Work Phone: [facility] 03-30-2024 09:57-0500 Body weight 79.38 kg Ole Yang MD Work Phone: [facility] 03-30-2024 09:57-0500 Diastolic blood pressure 78 mm[Hg] Ole Yang MD Work Phone: [facility] 03-30-2024 09:57-0500 Heart rate 69 /min Ole Yang MD Work Phone: [facility] 03-30-2024 09:57-0500 SaO2% (BldA) [Mass fraction] 98 % Ole Yang MD Work Phone: [facility] 03-30-2024 09:57-0500 Systolic blood pressure 128 mm[Hg] Ole Yang MD Work Phone: [facility] 02-25-2024 10:03-0500 Body height 167.6 cm Dipti Hemmer PA Work Phone: [facility] 02-25-2024 10:03-0500 Body mass index (BMI) [Ratio] 28.89 kg/m2 Dipti Hemmer PA Work Phone: [facility] 02-25-2024 10:03-0500 Body weight 81.19 kg Dipti Hemmer PA Work Phone: [facility] 02-25-2024 10:03-0500 Diastolic blood pressure 66 mm[Hg] Dipti Hemmer PA Work Phone: [facility] 02-25-2024 10:03-0500 Heart rate 74 /min Dipti Hemmer PA Work Phone: [facility] 02-25-2024 10:03-0500 Respiratory rate 20 /min Dipti Hemmer PA Work Phone: [facility] 02-25-2024 10:03-0500 SaO2% (BldA) [Mass fraction] 99 % Dipti Hemmer PA Work Phone: [facility] 02-25-2024 10:03-0500 Systolic blood pressure 108 mm[Hg] Dipti Hemmer PA Work Phone: [facility] 12-02-2023 10:08-0400 Body height 167.6 cm Teri Martinez MD Work Phone: [facility] 12-02-2023 10:08-0400 Body mass index (BMI) [Ratio] 28.73 kg/m2 Teri Martinez MD Work Phone: [facility] 12-02-2023 10:08-0400 Body weight 80.74 kg Teri Martinez MD Work Phone: [facility] 12-02-2023 10:08-0400 Diastolic blood pressure 70 mm[Hg] Teri Martinez MD Work Phone: [facility] 12-02-2023 10:08-0400 Heart rate 87 /min Teri Martinez MD Work Phone: [facility] 12-02-2023 10:08-0400 Respiratory rate 18 /min Teri Martinez MD Work Phone: [facility] 12-02-2023 10:08-0400 Systolic blood pressure 102 mm[Hg] Teri Martinez MD Work Phone: [facility] 11-26-2023 09:56-0400 Body height 170.2 cm Dipti Hemmer PA Work Phone: [facility] 11-26-2023 09:56-0400 Body mass index (BMI) [Ratio] 27.82 kg/m2 Dipti Hemmer PA Work Phone: [facility] 11-26-2023 09:56-0400 Body weight 80.56 kg Dipti Hemmer PA Work Phone: [facility] 11-26-2023 09:56-0400 Diastolic blood pressure 74 mm[Hg] Dipti Hemmer PA Work Phone: [facility] Comment on above: home BP monitor 141/ 81 11-26-2023 09:56-0400 Heart rate 71 /min Dipti Hemmer PA Work Phone: [facility] 11-26-2023 09:56-0400 Respiratory rate 16 /min Dipti Hemmer PA Work Phone: [facility] 10-10-2024 09:56-0400 SaO2% (BldA) [Mass fraction] 99 % Dipti VEGA Work Phone: [facility] 11-26-2023 09:56-0400 Systolic blood pressure 128 mm[Hg] Dipti VEGA Work Phone: [facility] Comment on above: home BP monitor 141/ 81 02-11-2023 14:43-0500 Body height 170.2 cm Ole Yang MD Work Phone: [facility] 02-11-2023 14:43-0500 Body mass index (BMI) [Ratio] 26.94 kg/m2 Ole Yang MD Work Phone: [facility] 02-11-2023 14:43-0500 Body weight 78.02 kg Ole Yang MD Work Phone: [facility] 02-11-2023 14:43-0500 Diastolic blood pressure 70 mm[Hg] Ole Yang MD Work Phone: [facility] 02-11-2023 14:43-0500 Heart rate 76 /min Ole Yang MD Work Phone: [facility] 02-11-2023 14:43-0500 Systolic blood pressure 126 mm[Hg] Ole Yang MD Work Phone: [facility] Healthcare Encounters Encounter Date Encounter Type Care Provider Facility Start: 07-19-2024 End: 07-19-2024 ambulatory [facility] Start: 07-07-2024 End: 07-07-2024 ambulatory DIPTI ANDERSON Not Available Start: 07-01-2024 ambulatory [facility] Start: 06-02-2024 End: 06-02-2024 Patient encounter procedure Dipti VEGA Work Phone: [facility] Comment on above: Medicare annual well [...] of left ventricle; 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); Primary hypertension [...] Primary ovarian failure; Anxiety; Current use of jail anticoagulation; Diplopia; Elevated liver enzymes; Frequent falls; History of stroke without residual deficits; Memory changes; 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); COPD exacerbation (CMS/HCC) Start: 06-02-2024 End: 06-02-2024 ambulatory DIPTI ANDERSON Not Available Start: 06-01-2024 End: 06-01-2024 [employer] Teri Martinez MD Work Phone: [facility] Start: 06-01-2024 End: 06-01-2024 [employer] flowsheet Teri Martinez MD Work Phone: [facility] Start: 06-01-2024 End: 06-01-2024 Office outpatient visit 25 minutes Teri Martinez MD Work Phone: [facility] Comment on above: Hyperthyroidism (CMS /HCC) (Primary Dx); Multinodular goiter (CMS/HCC); Longstanding persistent atrial fibrillation (CMS/HCC) Start: 06-01-2024 End: 06-01-2024 ambulatory TERI MARTINEZ Not Available Start: 05-25-2024 ambulatory [facility] Start: 05-23-2024 End: 05-23-2024 Clinisync Result Encounter Generic External Data Provider [facility] External Department Unsolicited Start: 05-23-2024 End: 05-23-2024 Clinisync Result Encounter Generic External Data Provider [facility] External Department Unsolicited Start: 05-12-2024 End: 05-13-2024 Refill Annalise Paniagua JUAN [facility] Comment on above: Anxiety Start: 04-25-2024 ambulatory [facility] Start: 03-30-2024 End: 03-30-2024 Bamboo flowsheet Ole [...] OLE YANG Not Available Start: 02-29-2024 ambulatory [facility] Start: 02-25-2024 End: 02-25-2024 Bamboo flowsheet Dipti [...] Impaired fasting glucose; 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); Age-related osteoporosis without current pathological fracture (CMS/HCC); Cardiomyopathy, unspecified (CMS/HCC); Longstanding persistent atrial fibrillation (CMS/HCC); Chronic obstructive pulmonary disease, unspecified (CMS/HCC); Chronic kidney disease, stage 3b (HCC) (CMS/HCC); 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); Chronic atrial fibrillation, unspecified (CMS/HCC); Supplemental oxygen dependent Start: 02-25-2024 End: 02-25-2024 ambulatory DIPTI ANDERSON Not Available Start: 02-04-2024 ambulatory [facility] Start: 01-25-2024 End: 01-25-2024 ambulatory [facility] Start: 12-08-2023 ambulatory [facility] Start: 12-03-2023 ambulatory [facility] Start: 12-02-2023 End: 12-02-2023 Bamboo flowstod Martinez MD Work Phone: [facility] Start: 12-02-2023 End: 12-02-2023 Bamboo flowstod Martinez MD Work Phone: [facility] Start: 12-02-2023 End: 12-02-2023 Office outpatient visit 25 minutes Teri Martinez MD Work Phone: [facility] Comment on above: Hyperthyroidism (CMS [...] Comment on above: Anxiety Start: 10-26-2023 ambulatory [facility] Start: 10-16-2023 ambulatory [facility] Start: 10-16-2023 Encounter for preprocedural cardiovascular examination [facility] Start: 09-01-2023 End: 09-01-2023 ambulatory DIPTI ANDERSON Not Available Start: 08-26-2023 End: 08-26-2023 ambulatory DIPTI ANDERSON Not Available Start: 08-14-2023 ambulatory NILE GARNICA [facility] Start: 08-07-2023 End: 08-07-2023 [facility] Start: 08-04-2023 End: 08-04-2023 ambulatory [facility] Start: 07-27-2023 ambulatory [facility] Start: 07-22-2023 End: 07-22-2023 ambulatory OLE YANG Not Available Start: 04-27-2023 End: 04-27-2023 [facility]ulatory [place] [place] [facility] Start: 04-27-2023 End: 04-27-2023 Office outpatient visit 15 minutes Eliel Nichols OD Work Phone: [facility] Comment on above: Esotropia of right e ye (Primary Dx); Right abducens nerve palsy; Double vision Start: 02-11-2023 End: 02-11-2023 Office outpatient visit 15 minutes Ole Yang MD Work Phone: [facility] Comment on above: Leg hematoma, right, initial encounter (Primary Dx); Current use of intermediate designer anticoagulation; Localized edema Start: 05-14-2022 End: 05-15-2022 [facility] Start: 03-19-2022 End: 03-20-[address] DIPTI ANDERSON Facility:H1 Start: 12-23-2021 End: 12-24-2021 ambulatory SHELDON GOTTLIEB Facility:H1 Start: 11-25-2021 End: 11-26-2021 [facility] Start: 09-04-2021 End: 09-05-2021 ambulatory SHELDON CHERY Facility:H1 Start: 08-23-2021 Encounter for other preprocedural examination [facility] Start: 08-23-2021 Encounter for preprocedural laboratory examination SHELDON [facility] Start: 08-22-2021 End: 08-23-2021 ambulatory KEANU ISLAS Facility:H1 Start: 08-21-2021 End: 08-22-2021 ambulatory KEANU ISLAS Facility:[facility] Start: 08-20-2021 End: 08-21-2021 ambulatory SHELDON PATELCKER Facility:H1 Start: 08-20-2021 End: 08-21-2021 Encounter for other preprocedural examination SHELDON CHERY Facility:H1 Start: 07-30-2021 End: 07-31-2021 ambulatory SHELDON CHERY Facility:H1 Start: 06-28-2021 End: 06-29-2021 ambulatory MERYL ANTON Facility:H1 Start: 06-20-2021 Encounter for other specified special examinations [facility] Start: 06-18-2021 End: 06-19-2021 ambulatory SHELDON CHERY Facility:H1 Start: 06-18-2021 End: 06-19-2021 Encounter for other specified special examinations MERYL ANTON Facility:H1 Start: 06-17-2021 End: 06-17-[address] MAYRA CHOI Facility:H1 Start: 06-12-2021 End: 06-13-2021 ambulatory SHELDON GOTTLIEB Facility:H1 Start: 06-04-2021 End: 06-04-2021 ambulatory GABRIEL Leandra GREEN Facility:H1 Start: 12-28-2020 End: 12-29-2020 ambulatory KEANU ISLAS Facility:[facility] Start: 11-19-2020 End: 11-20-2020 ambulatory KEANU COYCKO Facility:[facility] Procedures Date Procedure Procedure Detail Performing [...] ENDOCRINOLOGY [address] [place] [address] Teri Martinez MD [address] [place] [address] [facility] Start: 08-31-2024 End: 08-31-2024 Patient encounter procedure 08/31/2024 9:30 AM EDT Office Visit [facility] [address] [place] [address] Dipti Anderson PA [address] [place] [address] [facility] Start: 06-02-2024 End: 06-02-2025 DXA Skeletal system Views for bone density DEXA bone density Imaging Routine Estrogen deficiency Expected: 06/02/2024, Expires: 06/02/2025 [facility] Work Phone: Comment on above: Expected: 06/02/2024, Expires: Start: 06-02-2024 End: 06-02-2024 Patient encounter procedure 06/02/2024 9:30 AM EDT Office Visit [facility] [address] [place] [address] Dipti Anderson PA [address] [place] [address] [facility] Start: 06-01-2024 End: 06-01-2025 Thyrotropin [Units/volume] in Serum or Plasma TSH Lab Routine Hyperthyroidism ([facility]/HCC) Expected: 06/01/2024 (Approximate), Expires: 06/01/2025 [facility] Comment on above: Expected: 06/01/2024 (Approximate), Expi res: 06/01/2025 Start: 06-01-2024 End: 06-01-2025 Thyroxine (T4) free [Mass/volume] in Serum or Plasma T4, free Lab Routine Hyperthyroidism ([facility]/HCC) Expected: 06/01/2024 (Approximate), Expires: 06/01/2025 [facility] Comment on above: Expected: 06/01/2024 (Approximate), Expi res: 06/01/2025 Start: 06-01-2024 End: 06-01-2025 Triiodothyronine (T3) Free [Mass/volume] in Serum or Plasma T3, free Lab Routine Hyperthyroidism ([facility]/HCC) Expected: 06/01/2024 (Approximate), Expires: 06/01/2025 [facility] Work Phone: Comment on above: Expected: 06/01/2024 (Approximate), Expi res: 06/01/2025 Start: 06-01-2024 End: 06-01-2024 Patient encounter procedure [facility] Comment on above: Arrived Start: 05-30-2024 End: 05-30-2024 Patient encounter procedure 05/30/2024 9:30 AM EDT Office Visit [facility] [address] [place] [id number] iDpti Anderson PA [address] [place] [address] [facility] Start: 05-26-2024 Medicare Annual Wellness (AWV) Medicare Annual Wellness (AWV) [facility] Start: 04-26-2024 Tobacco Screening Tobacco Screening [facility] Start: 03-30-2024 End: 03-30-2024 Patient encounter procedure 03/30/2024 10:15 AM EST Office Visit [facility] [address] [facility] [address] [place] [id number] Ole Yang MD [address] [place] [address] Arrived [facility] Comment on above: Arrived Start: 02-25-2024 End: 02-24-2025 25-hydroxyvitamin D3 [Mass/volume] in Serum or Plasma Vitamin D 25 hydroxy Total Lab Routine 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) Age-related osteoporosis without current pathological fracture (CMS/HCC) Expected: 02/25/2024 (Approximate), Expires: 02/24/2025 [facility] Comment on above: Expected: 02/25/2024 (Approximate), Expi res: 02/24/2025 Start: 02-25-2024 End: 02-24-2025 Basic metabolic 1998 panel - Serum or Plasma Basic metabolic panel Lab Routine Benign hypertensive heart disease with heart failure (CMS/HCC) Impaired fasting glucose Expected: 02/25/2024 (Approximate), Expires: 02/24/2025 [facility] Comment on above: Expected: 02/25/2024 (Approximate), Expi res: 02/24/2025 Start: 02-25-2024 End: 02-24-2025 CBC W Auto Differential panel - Blood CBC and differential Lab Routine 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) Expected: 02/25/2024 (Approximate), Expires: 02/24/2025 [facility] Work Phone: Comment on above: Expected: 02/25/2024 (Approximate), Expi res: 02/24/2025 Start: 02-25-2024 End: 02-24-2025 Hemoglobin A1c/Hemoglobin.total in Blood Hemoglobin A1c Lab Routine Impaired fasting glucose Expected: 02/25/2024 (Approximate), Expires: 02/24/2025 [facility] Comment on above: Expected: 02/25/2024 (Approximate), Expi res: 02/24/2025 Start: 02-25-2024 End: 02-24-2025 Lipid 1996 panel - Serum or Plasma Lipid panel Lab Routine 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) Expected: 02/25/2024 (Approximate), Expires: 02/24/2025 [facility] Comment on above: Expected: 02/25/2024 (Approximate), Expi res: 02/24/2025 Start: 02-25-2024 End: 02-25-2024 Patient encounter procedure [facility] Comment on above: Arrived Start: 12-04-2023 Adult BMI Screening Adult BMI Screening [facility] Start: 12-02-2023 End: 12-01-2024 Hepatic function 2000 panel - Serum or Plasma Hepatic function panel Lab Routine Hyperthyroidism (CMS/HCC) Expected: 12/02/2023 (Approximate), Expires: 12/01/2024 [facility] Comment on above: Expected: 12/02/2023 (Approximate), Expi res: 12/01/2024 Start: 12-02-2023 End: 12-01-2024 Thyrotropin [Units/volume] in Serum or Plasma TSH Lab Routine Hyperthyroidism (CMS/HCC) Expected: 12/02/2023 (Approximate), Expires: 12/01/2024 [facility] Comment on above: Expected: 12/02/2023 (Approximate), Expi res: 12/01/2024 Start: 12-02-2023 End: 12-01-2024 Thyroxine (T4) free [Mass/volume] in Serum or Plasma T4, free Lab Routine Hyperthyroidism (CMS/HCC) Expected: 12/02/2023 (Approximate), Expires: 12/01/2024 [facility] Comment on above: Expected: 12/02/2023 (Approximate), Expi res: 12/01/2024 Start: 12-02-2023 End: 12-01-2024 Triiodothyronine (T3) Free [Mass/volume] in Serum or Plasma T3, free Lab Routine Hyperthyroidism (CMS/HCC) Expected: 12/02/2023 (Approximate), Expires: 12/01/2024 [facility] Work Phone: Comment on above: Expected: 12/02/2023 (Approximate), Expi res: 12/01/2024 Start: 12-02-2023 End: 12-02-2023 Patient encounter procedure [facility] Comment on above: Arrived Start: 11-26-2023 End: 11-26-2023 Patient encounter procedure [facility] Comment on above: Arrived Start: 10-18-2023 Influenza vaccination Influenza Vaccine (#1) [facility] Start: 08-17-2007 Fall Risk Screening Fall Risk Screening [facility] Start: 1961 DTaP,Tdap and Td Vaccines (1 - Tdap) DTaP,Tdap and Td Vaccines (1 - Tdap) [facility] Start: 1960 Adult BMI Follow Up Plan Adult BMI Follow Up Plan [facility] Start: 1954 Depression Screening Depression Screening [facility] Start: 1942 Medicare Annual Wellness Visit Medicare Annual Wellness Visit [facility] Immunizations Immunization Date Immunization Notes Care Provider Candace long 12-10-2023 SARS-COV-2 (COVID-19 ) vaccine, mRNA, spike protein, LNP, PF, robert-sucrose, 30 mcg/0.3 mL Dipti Hemtyler PA Work Phone: [facility] 11-26-2023 Influenza, High-dose Seasonal, Quadrivalent, Preservative Free Dipti Anderson PA Work Phone: [facility] 01-01-2023 SARS-COV-2 (COVID-19 ) vaccine, mRNA, spike protein, LNP, PF, robert-sucrose, 30 mcg/0.3 mL Dipti Hemmer PA Work Phone: [facility] 01-01-2023 zoster vaccine recombinant Gregorio VEGA Work Phone: [facility] 12-10-2022 ABRYSVO - Respirator y syncytial virus (RSV), vaccine, bivalent, protein subunit RSV prefusion F, diluent reconstituted, 0.5 mL, PF Dipti Hemmer PA Work Phone: [facility] 11-26-2022 Influenza, Seasonal, Quadrivalent, Adjuvanted Dipti Hemmer PA Work Phone: [facility] 11-26-2022 influenza virus vacc ine, unspecified formulation Dipti Hemmer PA Work Phone: [facility] 04-16-2022 zoster vaccine recombinant K aren Hemmer PA Work Phone: [facility] 12-10-2021 influenza, high dose seasonal, preservative-free Dipti Hemmer PA Work Phone: [facility] 12-10-2021 Moderna SARS-CoV-2 50mcg/0.5mL Booster Dipti Hemmer PA Work Phone: [facility] 01-17-2021 influenza, high dose seasonal, preservative-free Dipti Hemmer PA Work Phone: [facility] 01-10-2020 Seasonal trivalent influenza vaccine, adjuvanted, preservative free Dipti Hemmer PA Work Phone: [facility] 02-23-2019 pneumococcal polysaccharide vaccine, 23 valent Dipti Hemmer PA Work Phone: [facility] 11-25-2018 Seasonal trivalent influenza vaccine, adjuvanted, preservative free Dipti Hemmer PA Work Phone: [facility] 06-25-2018 pneumococcal conjuga te vaccine, 13 valent Dipti Hemmer PA Work Phone: [facility] 12-02-2017 Influenza, High-dose Seasonal, Quadrivalent, Preservative Free Dipti Hemmer PA Work Phone: [facility] 12-11-2016 Influenza, High-dose Seasonal, Quadrivalent, Preservative Free Dipti Hemmer PA Work Phone: [facility] 08-17-2007 pneumococcal polysaccharide vaccine, 23 valent Dipti Hemmer PA Work Phone: [facility] Payers Date Payer Category Payer Private Health Insurance [employer] SUPPLEMENT [id number] 2022 Unknown COMMERCIAL COMME RCIAL - GENERIC PLAN [id number] 2022-Present [phone] [address] [address] [place] [address] [id number] 2004 Medicare [id number] 1959 Medicare [id number] 1959 Unknown [id number] 1942 Unknown [id number] 2.16.840.1.415261.3.579.2 .647 1942 Unknown [id number] 2.16.840.1.094482.3.579.2 .647 1942 Unknown [id number] 2.16.840.1.514318.3.579.2 .647 1942 Unknown [id number] 2.16.840.1.079910.3.579.2 .593 1942 Unknown [id number] 2.16.840.1.098043.3.579.2 .593 1942 Unknown [id number] 2.16.840.1.560753.3.579.2 .593 1942 Unknown [id number] 2.16.840.1.439364.3.579.2 .593 1942 Unknown [id number] 2.16.840.1.264828.3.579.2 .593 1942 Unknown [id number] 2.16.840.1.818402.3.579.2 .593 1942 Unknown [id number] 2.16.840.1.484138.3.579.2 .593 1942 Unknown [id number] 2.16.840.1.869913.3.579.2 .593 1942 Unknown [id number] 2.16.840.1.280267.3.579.2 .593 1942 Unknown [id number] 2.16.840.1.933272.3.579.2 .593 1942 Unknown [id number] 2.16.840.1.220985.3.579.2 .593 1942 Unknown [id number] 2.16.840.1.228793.3.579.2 .593 1942 Unknown [id number] 2.16.840.1.418435.3.579.2 .593 1942 Unknown [id number] 2.16.840.1.495749.3.579.2 .593 1942 Unknown [id number] 2.16.840.1.900972.3.579.2 .593 1942 Unknown [id number] 2.16.840.1.999868.3.579.2 .1286 1942 Unknown [id number] 2.16.840.1.583868.3.579.2 .1259 1942 Unknown [id number] 2.16.840.1.030030.3.579.2 .1259 1942 Unknown [id number] 2.16.840.1.797937.3.579.2 .9 1942 Unknown [id number] 2.16.840.1.129778.3.579.2 .1258 1942 Unknown [id number] 2.16.840.1.445597.3.579.2 .1258 1942 Unknown [id number] 2.16.840.1.354591.3.579.2 .1258 1942 Unknown [id number] 2.16.840.1.340132.3.579.2 .1258 1942 Unknown [id number] 2.16.840.1.330357.3.579.2 .1258 1942 Unknown [id number] 2.16.840.1.672249.3.579.2 .1258 1942 Unknown [id number] 2.16.840.1.508230.3.579.2 .1259 Social History Date Type Detail Facility Start: 07-28-2022 End: 08-13-2022 Tobacco smoking status NVIS Never smoked tobacco [facility] Start: 07-28-2022 End: 08-13-2022 Tobacco use and exposure Smokeless tobacco non-user [facility] Start: 02-11-2023 End: 06-02-2024 Alcoholic beverage intake [...] Sex assigned at [facility] How often do you nee d to [...] time - these days [OSQ] Rather much [facility] Functional Status Date Assessment Result Facility 06-02-2024 Patient Health Quest ionnaire 2 item (PHQ-2) [Reported] [facility] 06-01-2024 Total score [AUDIT-C] 0 06/02/19 25 10:00 AM EDT Mychart, Generic [facility] 06-01-2024 How often to you hav e a drink containing alcohol? Never 06/01/2024 10:00 AM EDT Mychart, Generic Never [facility] 06-01-2024 Functional status Patient does n ot drink 06/01/2024 10:00 AM EDT Mychart, Generic Patient does not drink [facility] 06-01-2024 How often do you hav e 6 or more drinks on 1 occasion? Never 06/01/2024 10:00 AM EDT Mychart, Generic Never [facility] Clinical Notes 06-17-2021 to 06-02-2024 SILVIA Branham - 06/02/2024 9:30 AM Yolanda Martinez MD - 06/01/2024 10:00 AM EDTTelephone Encounter - Annalise Paniagua, GROUP MANAGER - 05/12/2024 3:07 PM Hanna Yang MD [...] Do you have a medical power of title attorney?: Yes Current Outpatient Medications on File [...] mg) by mouth Daily 100 tablet 3 Pzjqcso-Izykfwiwqmf-Cdkzyaziwh (Breztri Aerosphere) 160-9-4.8 MCG/ACT aerosol Inhale 2 [...] Future 4. Pulmonary emphysema, unspecified emphysema type ([facility]) This is a chronic medical [...] oxygen. 7. Mild intermittent asthma without complication ([facility]) This is a chronic medical condition that is stable since last assessment. No changes in treatment are suggested at this time. Continue Breztri as prescribed, and Albuterol as needed. 8. Panlobular emphysema ([facility]) This is a chronic medical [...] Benign hypertensive heart disease with heart failure ([facility]) The patient is seeing a medical grade shoemaker for this condition, treatment is deferred to that specialist. Correspondence from that specialist and any available testing were reviewed during today's visit. 11. Chronic atrial fibrillation, unspecified ([facility]) The patient is seeing a medical grade shoemaker for this condition, treatment is deferred to that specialist. Correspondence from that specialist and any available testing were reviewed during today's visit. 12. Chronic combined systolic (congestive) and diastolic (congestive) heart failure The patient is seeing a medical grade shoemaker for this condition, treatment is deferred to that specialist. Correspondence from that specialist and any available testing were reviewed during today's visit. 13. Chronic systolic dysfunction of left ventricle The patient is seeing a medical grade shoemaker for this condition, treatment is deferred to that specialist. Correspondence from that specialist and any available testing were reviewed during today's visit. 14. Coronary artery disease involving [place] coronary artery of [place] heart without angina pectoris ([facility]) The patient is seeing a medical grade shoemaker for this condition, treatment is deferred to that specialist. Correspondence from that specialist and any available testing were reviewed during today's visit. 15. Primary hypertension ([facility]) The patient is seeing a medical grade shoemaker for this condition, treatment is deferred to that specialist. Correspondence from that specialist and any available testing were reviewed during today's visit. 16. ICD (implantable cardioverter-defibrillator) in place The patient is seeing a medical grade shoemaker for this condition, treatment is deferred to that specialist. Correspondence from that specialist and any available testing were reviewed during today's visit. 17. Non-rheumatic mitral regurgitation The patient is seeing a medical grade shoemaker for this condition, treatment is deferred to that specialist. Correspondence from that specialist and any available testing were reviewed during today's visit. 18. Status post biventricular cardiac pacemaker insertion The patient is seeing a medical grade shoemaker for this condition, treatment is deferred to that specialist. Correspondence from that specialist and any available testing were reviewed during today's visit. 19. Chronic kidney disease, stage 3b (HCC) ([facility]) This is a chronic medical condition that is stable since last assessment. Will continue to monitor with routine labs. 20. Age-related osteoporosis without current pathological fracture ([facility]) This is a chronic medical [...] by patient at this time. 25. Hyperthyroidism ([facility]) The patient is seeing a medical grade shoemaker for this condition, treatment is deferred to [...] Lorazepam as needed. 30. Current use of jail anticoagulation This is a chronic medical condition [...] Anderson MSBS, PAKvngC documented in this encounter [facility] 06-01-2024 History of Presen t illness [...] on 03/31/18 for lab done in in [facility]: TSH still suppressed 0.07, free T4 back [...] hours atorvastatin (LIPITOR) 80 mg, Oral, Daily Gciogiv-Quwiswqqzsz-Maphwplqlq (Breztri Aerosphere) 160-9-4.8 MCG/ACT aerosol 2 puffs, [...] Allergies Past Medical History: Diagnosis Date A-fib ([facility]) Arthritis CAD (coronary artery disease) ([facility]) Cerebrovascular accident ([facility]) Disease of thyroid gland (CMS/[facility]) H/O bladder infections Hearing loss [...] months (around 12/01/2024). documented in this encounter [facility] 05-12-2024 Telephone encounter Note Needs sent to [facility] 05-12-2024 Miscellaneous Notes Needs sent to express [facility] documented in this encounter [facility] 03-30-2024 History of Presen t illness [...] mg) by mouth Daily 100 tablet 3 Duswxmk-Seqmtrzxtoe-Cttsbtucqh (Breztri Aerosphere) 160-9-4.8 MCG/ACT aerosol Inhale 2 [...] for Routine F/U. documented in this encounter [facility] 02-25-2024 History of Presen t illness [...] 1 TABLET EVERY MORNING 100 tablet 3 Aexpzuv-Wztuvhpnqew-Lladuwlaqq (Breztri Aerosphere) 160-9-4.8 MCG/ACT aerosol Inhale 2 [...] upcoming fasting labs. 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) - CBC and differential; Future - Lipid panel; Future - Vitamin D 25 hydroxy Total; Future The patient is seeing a medical grade shoemaker for this condition, treatment is deferred to that specialist. Correspondence from that specialist and any available testing were reviewed during today's visit. Age-related osteoporosis without current pathological fracture (CMS/HCC) - Vitamin D 25 hydroxy Total; Future Will continue to monitor with routine DEXA scans. Continue Vitamin D and Calcium supplements daily. Cardiomyopathy, unspecified (CMS/HCC) The patient is seeing a medical grade shoemaker for this condition, treatment is deferred to that specialist. Correspondence from that specialist and any available testing were reviewed during today's visit. Longstanding persistent atrial fibrillation (CMS/HCC) The patient is seeing a medical grade shoemaker for this condition, treatment is deferred to that specialist. Correspondence from that specialist and any available testing were reviewed during today's visit. Chronic obstructive pulmonary disease, unspecified (CMS/HCC) See above. Chronic kidney disease, stage 3b (HCC) (CMS/HCC) Will continue to monitor with routine labs. 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) The patient is seeing a medical grade shoemaker for this condition, treatment is deferred to that specialist. Correspondence from that specialist and any available testing were reviewed during today's visit. Chronic atrial fibrillation, unspecified (CMS/HCC) The patient is seeing a medical grade shoemaker for this condition, treatment is deferred to that specialist. Correspondence from that specialist and any available testing were reviewed during today's visit. Supplemental oxygen dependent Using oxygen concentrator, O2 via nasal cannula. Oxygen is medically necessary for patient due to hypoxia and significant CLAIRE without it. Follow up in about 3 months (around 05/27/2024) for Medicare Wellness Visit. documented in this encounter [facility] 01-25-2024 Note [facility] follow-up note Reason for [...] by mouth at bedtime., Disp: , Rfl: wjjxuqnbuh-czxbcjil-tomqhpyioe (Breztri Aerosphere) 160-9-4.8 mcg/actuation HFA aerosol inhaler, [...] stress ECG findings (more content not included)... [facility] 12-02-2023 History of Presen t illness [...] on 03/31/18 for lab done in in [facility]: TSH still suppressed 0.07, free T4 back [...] hours atorvastatin (LIPITOR) 80 mg, Oral, Daily Xnchiyi-Ytaobrioghh-Bkfuabwgwo (Breztri Aerosphere) 160-9-4.8 MCG/ACT aerosol 2 Inhalation [...] months (around 06/01/2024). documented in this encounter [facility] 11-26-2023 History of Presen t illness [...] oxygen tank. Does have an appointment with Leonard J. Chabert [facility] [...] mouth in the morning. 100 tablet 3 Yopyjbg-Zupilkkeqcb-Jpstaaqvku (Breztri Aerosphere) 160-9-4.8 MCG/ACT aerosol Inhale 2 [...] vaccination - Influenza, high-dose seasonal, quadrivalent, PF (UNJ035) (Fluzone High Dose [place] 0.7mL dose) [...] 02/26/2024) for COPD. documented in this encounter [facility] 10-30-2023 Telephone encounter Note OARRS reviewed, Rx sent into patient's pharmacy. [facility] 10-30-2023 Miscellaneous Notes OARRS reviewed, Rx sent into patient's pharmacy. documented in this encounter [facility] 08-07-2023 Note [facility] [...] by mouth at bedtime., Disp: , Rfl: okdabjucyb-vvvqdnaw-snvqbuatzc (Breztri Aerosphere) 160-9-4.8 mcg/actuation HFA aerosol inhaler, [...] chest x-ray a (more content not included)... [facility] 04-27-2023 History of Presen t illness [...] like to follow up with her local mitering machine operator for regular eyecare/comprehensive exams. Will send a [...] (TOPROL XL) 50 mg 24 hr tablet multivitamin,fj-tynt-Xx-FA-min 27-0.4 mg tablet 1 (one) time each [...] history of COPD (chronic obstructive pulmonary disease) ([facility]) and Hypertension. She has a [...] accurate and complete. documented in this encounter [facility] 02-11-2023 History of Presen t illness Narrative [...] TAKE 1 TABLET DAILY for 100 days Sqmfgka-Arsbztoabkg-Gdjezgmcxw (Breztri Aerosphere) 160-9-4.8 MCG/ACT aerosol Inhale 1 [...] follow-ups on file. documented in this encounter [facility] 08-22-2021 Note EXAMINATION: XR CHES [...] authenticated by: JOEL GARCIA Date: 2021-08-22 17:39 [facility] 06-17-2021 Note PROCEDURE: XR FEMUR LT [...] by: JOEL GARCIA Date: 2021-06-17 11:09 [facility] Evaluation note Diagnosis Leg hematoma, right, initial encounter- Primary Current use of intermediate designer anticoagulation Localized edema Edema documented in this [...] Impaired fasting glucose 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) Age-related osteoporosis [...] vision Diplopia documented in this encounter [facility]* Diagnosis Anxiety Anxiety state, unspecified documented in this encounter [facility] HealthcareEvaluation note* Diagnosis Hyperthyroidism (CMS/HCC)- Primary Thyrotoxicosis without mention of goiter or other cause, without mention of thyrotoxic crisis or storm Multinodular goiter (CMS/HCC) Nontoxic multinodular goiter Longstanding persistent atrial fibrillation (CMS/HCC) documented in this encounter [facility] HealthcareEvaluation note* Diagnosis Medicare annual wellness visit, [...] heart failure (CMS/HCC) Chronic atrial fibrillation, unspecified ([facility]/HCC) 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 systolic dysfunction of left ventricle Coronary artery disease involving [place] coronary artery of [place] heart without angina pectoris ([facility]/HCC) Primary hypertension ([facility]/HCC) Unspecified essential hypertension ICD (implantable cardioverter-defibrillator) in place Non-rheumatic mitral regurgitation Status post biventricular cardiac pacemaker insertion Chronic kidney disease, stage 3b (HCC) ([facility]/HCC) Age-related osteoporosis without current pathological fracture ([facility]/HCC) Arthritis of right shoulder region Joint derangement of shoulder region Unspecified derangement, shoulder region Primary osteoarthritis involving multiple joints Rotator cuff syndrome of right shoulder Hyperthyroidism ([facility]/HCC) Thyrotoxicosis without mention of goiter or other cause, without mention of thyrotoxic crisis or storm Impaired fasting glucose Overweight (BMI 25.0-29.9) Overweight Primary ovarian failure Other ovarian failure Anxiety Anxiety state, unspecified Current use of intermediate designer anticoagulation Diplopia Elevated liver enzymes Other nonspecific abnormal serum enzyme levels Frequent falls History of stroke without residual deficits Transient ischemic attack (TIA), and cerebral infarction without residual deficits Memory changes 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) COPD exacerbation ([facility]/HCC) Obstructive chronic bronchitis with exacerbation documented in this encounter [facility] HealthcareInstructions* Attachments The following attachments cannot be sent through Care Everywhere. * Double Vision ([place]) [facility] Purpose Family History No Family History Records FoundNo Family History Records FoundNo Family History Records FoundNo Family History Records FoundNo Family History Records FoundNo Family History Records Found Advance Directives No Advanced Directives Records FoundDocuments on File Type Date Recorded Patient Log Feeder Expl anation Power of Software Performance Engineer 02/25/2024 12:18 PM [facility] Power of Software Performance Engineer Reason for Referral Specialty Diagnoses / Procedures Referred By Safia t Referred To Contact Radiology Diagnoses Leg hematoma, right, initial encounter Current use of jail anticoagulation Localized edema Procedures Vascular US lower extremity venous duplex right Ole Yang MD [address] [facility] [address] [place] [address] [facility] [address] [place] [address] Referral ID Status Reason Start Date Expiration Date Visits Re quested Visits Authorized [id number] Closed 02/12/2023 05/14/2023 1 1 Additional Source Comments INFORMATION SOURCE (unrecogn ized section and content) DATE CREATED AUTHOR 10/15/[address] [facility] DATE CREATED AUTHOR AUTHOR'S ORGANIZ ATION 05/18/2022 [facility] DATE CREATED AUTHOR AUTHOR'S ORGANIZ ATION 04/27/2023 [facility] DATE CREATED AUTHOR AUTHOR'S ORGANIZ ATION 06/08/2024 [facility] DATE CREATED AUTHOR AUTHOR'S ORGANIZ ATION 07/13/[address] [facility] EPIC DATE CREATED AUTHOR AUTHOR'S ORGANIZ ATION 07/20/2024 [facility] Reason for Visit (unrecogniz ed section [...] Care Teams (unrecognized sec tion and content) Rate Quoting Operator Relationship Specialty Start Date End Date Ole Yang MD [address] [facility] [address] [place] [address] PCP - ACO Reach 07/10/22 Ole Yang MD [address] [place] [address] PCP - General Internal Medicine 07/28/22 Rate Quoting Operator Relationship Specialty Start Date End Date Ole Yang MD [address] [place] [address] PCP - ACO Reach 07/10/22 Ole Yang MD [address] [place] [address] PCP - General Internal Medicine 07/28/22Thursday, Bea, GROUP MANAGER [address] [place] [address] Licensed Practical Nurse Family Medicine 10/27/23 Rate Quoting Operator Relationship Specialty Start Date End Date Ole Yang MD [address] [place] [address] PCP - ACO Reach 07/10/22 Ole Yang MD [address] [place] [address] PCP - General Internal Medicine 07/28/22ThursdayeBa GROUP MANAGER [address] [place] [address] Licensed Practical Nurse Family Medicine 10/27/23 Rate Quoting Operator Relationship Specialty Start Date End Date Ole Yang MD [address] [place] [address] PCP - ACO Reach 07/10/22 Ole Yang MD [address] [place] [address] PCP - General Internal Medicine 07/28/22Thursday, Bea, GROUP MANAGER [address] [place] [address] Licensed Practical Nurse Family Medicine 10/27/23 Rate Quoting Operator Relationship Specialty Start Date End Date Ole Yang MD [address] [place] [address] PCP - ACO Reach 07/10/22 Ole Yang MD [address] [place] [address] PCP - General Internal Medicine 07/28/22Thursday, Bea, GROUP MANAGER [address] [place] [address] Licensed Practical Nurse Family Medicine 10/27/23 Rate Quoting Operator Relationship Specialty Start Date End Date Ole Yang MD [address] [place] [address] PCP - ACO Reach 07/10/22 Ole Yang MD [address] [place] [address] PCP - General Internal Medicine 07/28/22Thursday, Bea, GROUP MANAGER [address] [place] [address] Licensed Practical Nurse Family Medicine 10/27/23 Rate Quoting Operator Relationship Specialty Start Date End Date Ole Yang MD [address] [place] [address] PCP - ACO Reach 07/10/22 Ole Yang MD [address] [place] [address] PCP - General Internal Medicine 07/28/22 Debora Saenz, RN Licensed Practical Nurse Family Medicine 03/25/24 Rate Quoting Operator Relationship Specialty Start Date End Date Ole Yang MD [address] [place] [address] PCP - ACO Reach 07/10/22 Ole Yang MD [address] [place] [address] PCP - General Internal Medicine 07/28/22 Debora Saenz, RN Licensed Practical Nurse Family Medicine 03/25/24 Rate Quoting Operator Relationship Specialty Start Date End Date Ole Yang MD [address] [place] [address] PCP - General Internal Medicine 08/13/22 Rate Quoting Operator Relationship Specialty Start Date End Date Ole Yang MD [address] [place] [address] PCP - ACO Reach 07/10/22 Ole Yang MD [address] [place] [address] PCP - General Internal Medicine 07/28/22 Edna Alcantara LPN 05/06/24 Rate Quoting Operator Relationship Specialty Start Date End Date Ole Yang MD [address] [place] [address] PCP - ACO Reach 07/10/22 Ole Yang MD [address] [place] [address] PCP - General Internal Medicine 07/28/22 Edna Alcantara LPN 05/06/24 Rate Quoting Operator Relationship Specialty Start Date End Date Ole Yang MD [address] [place] [address] PCP - ACO Reach 07/10/22 Ole Yang MD [address] [place] [address] PCP - General Internal Medicine 07/28/22 Edna Alcantara LPN 05/06/24 Rate Quoting Operator Relationship Specialty Start Date End Date Ole Yang MD [address] [place] [address] PCP - ACO Reach 07/10/22 Ole Yang MD [address] [place] [address] PCP - General Internal Medicine 07/28/22 Edna Alcantara LPN 05/06/24 Rate Quoting Operator Relationship Specialty Start Date End Date Ole Yang MD [address] [place] [address] PCP - ACO Reach 07/10/22 Ole Yang MD [address] [place] [address] PCP - General Internal Medicine 07/28/22 Edna [...] BE BASED ON THE PRIMARY CLINICAL RECORDS. [employer] [facility]. provides no warranty or guarantee of the accuracy or completeness of information in this document.
--- NOTE | 2024-07-22 09:58 | CA_ITS ---
Patient Name: SALINA MORENO MR#: [id number] : 1940 Exam Date: 07/22/2024 Ordering Doctor: DR KRISTYN HUTCHINSON . ECHOCARDIOGRAM REPORT PROCEDURE: CA ECHO DOPPLER COMPLETE INDICATIONS: Dyspnea, pacemaker, COPD, hypertnesion, CHF COMPARISON: None. DESCRIPTION: COMPLETE ECHOCARDIOGRAM Real-time transthoracic echocardiography with 2D, M-mode, spectral and color flow Doppler performed. QUALITY: Technical quality was good. LEFT VENTRICLE: Normal chamber size. Proximal septal hypertrophy (sigmoid septum). Normal left ventricle systolic function without wall motion abnormalities. Calculated left ventricular ejection fraction is 57%. LV EF: Normal left ventricular ejection fraction, (>55%). DIASTOLIC: Not adequately assessed due to paced rhythm. ATRIAL SEPTUM: Appears intact LEFT ATRIUM: Severe dilatation. RIGHT ATRIUM: Severe dilatation. RIGHT VENTRICLE: Mild dilatation. Right ventricle systolic function appears to be mildly reduced. Pacer wire present in right cardiac chambers. TRICUSPID VALVE: Normal mobility and thickness. No stenosis with mild regurgitation. Doppler studies reveal moderately increased pulmonary arterial pressure about 57 mmHg(of note the measured velocity on the images is overestimated) MITRAL VALVE: Normal mobility and thickness. No evidence of mitral valve stenosis. There is no mitral annular calcification. Moderate mitral regurgitation. AORTIC VALVE: Normal trileaflet appearance. Normal leaflet mobility. No evidence of aortic valve stenosis. No aortic regurgitation. AORTIC ROOT: Normal diameter and appearance. Ascending aorta is normal in size PULMONIC VALVE: Normal thickness and mobility. No stenosis. Mild regurgitation. PERICARDIUM: No evidence of pericardial effusion. IVC: IVC is dilated (2.2 cm) with adequate respiration variation PLEURA: CONCLUSION: Normal left ventricle systolic function without wall motion abnormalities, ejection fraction is calculated to be 57% Sigmoidal septum Mildly dilated right ventricle with mildly reduced systolic function Moderate pulmonary hypertension Severe biatrial dilatation Moderate mitral regurgitation Mild tricuspid regurgitation Pacemaker leads within the right cardiac chambers Adult Echocardiography Procedure Report Left Ventricle LVEDD (3.7 - 5.6 cm): 3.78 cm LVESD (2.2 - 4.0 cm): 3.07 cm LVIVS thickness (0.6 - 1.2 cm): 1.35 cm LVPW thickness (0.5 - 1.0 cm): 1.14 cm E - e': 10.71 LVOT Max Gradient: 2.96 mm[Hg] LVOT Area (cm2): 0.86 m/s Peak Velocity (LVOT): 0.86 m/s Mean Velocity (LVOT): 0.59 m/s LVOT Diameter 2.12 cm Left Atrium Left Atrium Systolic Dimension: 4.66 cm Mitral Valve MV E to A Ratio: 3.49 Mitral Valve A-Wave Peak Velocity: 0.33 m/s Mitral Valve E-Wave Peak Velocity: 1.16 m/s Right Ventricle Aorta AO Root Diam: 3.25 cm Ascending Ao Diam: 2.92 cm Aortic Valve AoV Area (Peak Vicente): 1.96 cm2, 1.96 cm2 AoV Area (VTI): 2.39 cm2, 2.39 cm2 Peak Velocity(Antegrade Flow): 1.56 m/s Peak Gradient(Antegrade Flow): 9.68 mm[Hg] Mean Velocity(Antegrade Flow): 1.03 m/s Mean Gradient(Antegrade Flow): 5.02 mm[Hg] Velocity Time Integral: 27.22 cm Tricuspid Valve Peak Velocity (Regurgitant Flow): 4.65 m/s Pulmonic Valve Peak Gradient: 3.32 mm[Hg], 3.59 mm[Hg] Right Atrium Dictated by: Balwinder Sanchez MD on 07/22/2024 at 16:33 Approved by: Balwinder Sanchez MD on 07/22/2024 at 16:50
--- NOTE | 2024-07-22 10:18 | P.HP_ITS ---
HPI H&P: HPI History of Present Illness Chief complaint: ILL UTI WEAKNESS HYPOXIA Narrative: Family for to know where he is coming to check on her understand on her table with her oxygen off, she normally wears 2 L, she was having altered mental status with increasing confusion, she is currently undergoing workup for dementia with started on Rexulti, but with a change in mental status she was brought to the emergency room, found to have acute UTI with altered mental status, and acute elevation in high-sensitivity troponin T and consistent with an acute NSTEMI type II I saw patient up in the medical surgical floor, resting comfortably in bed, very alert talkative social no specific complaints Opioid HPI Opioid Management Most Recent Pain and Opioid Data: Last ORT Total Score 0 08/28/23, 17:33 Last ORT Risk Category Low Risk 08/28/23, 17:33 Review of Systems ROS Status of ROS 10 or more systems reviewed and unremark able except as noted in history and below PFSH PFS Medical History (Updated 07/22/24 @ 10:24 by Montez Sosa MD) Dependence on supplemental oxygen ?Z99.81 - Dependence on supplemental oxygen (ICD-10) Hypoxic episode ?R09.02 - Hypoxemia (ICD-10) COPD exacerbation ?J44.1 - Chronic obstructive pulmonary disease with (acute) exacerbation (ICD-10) CHF (congestive heart failure) ?I50.9 - Heart failure, unspecified (ICD-10) HTN (hypertension) ?I10 - Essential (primary) hypertension (ICD-10) CVA (cerebral vascular accident) ?I63.9 - Cerebral infarction, unspecified (ICD-10) COPD (chronic obstructive pulmonary disease) ?J44.9 - Chronic obstructive pulmonary disease, unspecified (ICD-10) Cardiac defibrillator in place ?Z95.810 - Presence of automatic (implantable) cardiac defibrillator (ICD-10) A-fib ?I48.91 - Unspecified atrial fibrillation (ICD-10) Surgical History (Updated 08/28/23 @ 18:27 by Lo Knapp RN) Hx of appendectomy ?Z90.49 - Acquired absence of other specified parts of digestive tract (ICD- 10) History of hysterectomy ?Z90.710 - Acquired absence of both cervix and uterus (ICD-10) Family History (Updated 08/28/23 @ 17:55 by Lo Knapp, RN) Other Family history of CHF (congestive heart failure) Family history of COPD (chronic obstructive pulmonary disease) Family history of cancer Family history of hypertension Family history of myocardial infarction Family history of stroke Social History (Updated 08/28/23 @ 17:56 by Lo Knapp RN) Within the past year, how often did you have a drink containing alcohol: monthly or less Within the past year, how many standard drinks containing alcohol did you have on a typical day: 1 or 2 Within the past year, how often did you have six or more drinks on one occasion: never Total score: 0 Score interpretation: A score less than 3 is consistent with normal alcohol consumption. Smoking status: Never smoker Non-prescribed substance use: denies use Highest level of school completed/degree received: high school graduate In a typical week, how many times do you talk on the telephone with family, friends, or neighbors: 3 or more times per week How often do you get together with friends or relatives: 3 or more times per week How often do you attend latter-day or scientology services: never Little interest or pleasure in doing things: not at all Feeling down, depressed, or hopeless: several days Feel stressed/tense/nervous/anxious/difficulty sleeping: not at all Do you think of yourself as: straight/heterosexual Gender Identity: female Meds Home Medications and Allergies Home Medications ?Medication ?Instructions ?Recorded ?Confirmed ?Type apixaban 5 mg tablet (Eliquis) 5 mg PO Q12H 08/28/23 0 07/22/24 History atorvastatin 80 mg tablet 80 mg PO .QHS 08/28/2307/22 History methimazole 10 mg tablet 5 mg PO .QD 08/28/23 5 History metoprolol succinate 50 mg 50 mg PO .QD 08/28/2307/22 History tablet,extended release 24 hr paroxetine HCl 20 mg tablet 20 mg PO .QD 08/28/2308/10 History spironolactone 25 mg tablet 25 mg PO QAM 08/28/2308/10 History albuterol sulfate 90 mcg/actuation 2 puff inhalation Q 4H PRN 06/08/24 07/22/24 History aerosol inhaler shortness of breath or wheez ing aspirin 81 mg capsule 81 mg PO DAILY 06/08/2408/10 History brexpiprazole 0.5 mg tablet 0.25 mg PO .qd 07/22/24 History (Rexulti) bumetanide 1 mg tablet 1 mg PO DAILY PRN water rete ntion 07/22/24 07/22/24 History calcium 600 mg (as 1 cap PO DAILY 07/22/24 06/08/10 History carbonate)-vitamin D3 5 mcg (200 unit) capsule (Calcium 600 + D(3)) cholecalciferol (vitamin D3) 25 25 mcg PO DAILY 07/22/24 History mcg (1,000 unit) tablet (Vitamin D3) lisinopril 5 mg tablet 2.5 mg PO .QD 07/22/2407/22 History lorazepam 0.5 mg tablet 0.5 mg PO BEDTIME 07/22/24 0 07/22/24 History multivitamin (Daily Multi-Vitamin 1 tab PO DAILY 07/2207/22/24 History tablet) Allergies Allergy/AdvReac Type Severity Reaction Status Date / Time No Known Drug Allergies Allergy Verified 07/22/24 06:13 Exam Constitutional Vital Signs, click to edit/add: Last Vital Signs Temp 98.4 F 07/22/24 09:48 Pulse 70 07/22/24 10:00 Resp 18 07/22/24 09:48 BP 125/72 07/22/24 09:48 Pulse Ox 96 07/22/24 09:48 O2 Del Method Nasal Cannula 07/22/24 09:48 O2 Flow Rate 2 07/22/24 09:48 Documenting provider has reviewed patient's vital signs: yes Common normals: no apparent distress, average body habitus, oriented x3, no limitations, healthy appearing, alert and well nourished Chest Common normals: inspection of chest normal Respiratory Common normals: normal respiratory effort, no use of accessory muscles and clear to auscultation bilaterally Auscultation: diminished lung sounds Cardio Common normals: regular rate, regular rhythm and no murmurs GI Common normals: Normal to inspection, nondistended, normoactive bowel sounds present, soft to palpation, non-tender and no hepatosplenomegaly Extremity Common normals: abnormal to inspection (1+ edema-chronic for her) Neuro Common normals: CN's II-XII intact bilaterally, moves all extremities and no focal motor deficits; not oriented x3 Results Labs Labs: Short CBC 07/22/24 Range/Units 07:06 WBC 8.8 (4.0-11.0) 10^3/uL Hgb 11.2 L (12.0-16.0) g/dL Hct 34.8 L (36.0-48.0) % Plt Count 188 (150-450) 10^3/uL BMP 07/22/24 07:06 Sodium 140 Potassium 4.8 Chloride 100 Carbon Dioxide 33.9 H BUN 33.0 H Creatinine 1.41 H Glucose 138 H Calcium 9.4 Cardiac Enzymes 07/22/24 Range/Units 07:06 Total Creatine Kinase 59 (26-192) U/L Liver Function 07/22/24 Range/Units 07:06 Total Bilirubin 1.1 H (0.2-1.0) mg/dL Direct Bilirubin 0.3 H (0.0-0.2) mg/dL AST 23 (15-37) U/L ALT 25 (14-59) U/L Alkaline Phosphatase 93 (46-116) U/L Albumin 3.3 L (3.4-5.0) g/dL Urine 07/22/24 Range/Units 06:10 Urine Color Yellow (YELLOW) Urine Clarity Cloudy A (CLEAR) Urine pH 6.0 (5.0-9.0) Ur Specific [place] 1.015 (1.005-1.025) Urine Protein >=300 A (NEG/TRACE) mg/dL Urine Glucose (UA) Negative (NEGATIVE) mg/dL ABG ABG results: 07/22/24 07:33 VBG pH 7.395 VBG pCO2 46.3 Assessment and Plan Assessment and Plan (1) Altered mental status: (2) Acute UTI: (3) Hypoxia: (4) COPD (chronic obstructive pulmonary disease): (5) Chronic hypoxic respiratory failure: (6) Dependence on supplemental oxygen: (7) CHF (congestive heart failure): (8) CVA (cerebral vascular accident): (9) HTN (hypertension): (10) Cardiac defibrillator in place: (11) A-fib: (12) Bilirubinemia: (13) NSTEMI (non-ST elevated myocardial infarction): (14) Dementia: Plan Admission findings: Mild respiratory distress, elevated blood pressure, acute hypoxia, findings consistent with an acute UTI with elevated high-sensitivity troponin consistent with acute NSTEMI type II secondary to the UTI resulting in altered mental status. Acute UTI-IV antibiotics, repeat labs in a.m., check on culture in 2 days Acute NSTEMI type II secondary to UTI-track and trend troponins and check echocardiogram consult cardiology Chronic hypoxic respiratory failure secondary to COPD-aerosol treatments and sup plemental oxygen lung exam not consistent with an acute exacerbation Mild elevation in BUN and creatinine-this is probably her baseline Chronic combined congestive heart failure-mild edema, maintain home medications, checking echocardiogram History of coronary artery disease-stents placed History of atrial fibrillation status post ablation with pacemaker placement Dementia-currently on Rexulti, alternate medications will be adjusted as an outpatient Hypertension-not well-controlled in ER, maintain home medications Admission status: Patient with acute altered mental status secondary to UTI resulting in acute NSTEMI type II, medically necessary treatment will span 2 midnights. Inpatient status
[2024-07-22] MEDS: IPRATROPIUM/ALBUTEROL SULFATE 3 ML AMPUL.NEB IH ×3 (11:14→22:32)
[2024-07-22 11:19] LABS: Thyroid Stimulating Hormone 2.957 uIU/mL (0.358-3.740); Troponin I High Sensitivity 186.3 pg/mL (4.0-51.3)
[2024-07-22 11:30] LABS: Lactate/Lactic Acid 2.2 mmol/L (0.4-2.0)
--- NOTE | 2024-07-22 11:32 | ECG_ITS ---
[facility] Test Date: 2024-07-22 Pat Name: SALINA MORENO Department: Room: 217 Gender: Female Reagent Tender: : 1940 Requested By: KRISTYN HUTCHINSON Order Number: [id number] Reading MD: RUDDY GIBSON M.D. Measurements Intervals [place] Rate: 101 P: MS: QRS: 149 QRSD: 127 T: 149 QT: 438 QTc: 570 Interpretive Statements ELECTRONIC VENTRICULAR PACEMAKER Underlying atrial fibrillation ABNORMAL ECG Compared to ECG 07/22/2024 06:47:16 No significant changes Electronically Signed On 07-22-2024 18:27:01 EDT by RUDDY GIBSON M.D.
[2024-07-22] MEDS: LEVOFLOXACIN IN DEXTROSE 5 % 750 MG/150 ML PREMIX 100 MG IV (11:50)
[2024-07-22] MEDS: PAROXETINE HCL 20 MG TABLET PO (11:50)
[2024-07-22] MEDS: METOPROLOL SUCCINATE 50 MG TAB.ER.24H PO (11:50)
[2024-07-22] MEDS: APIXABAN 5 MG TABLET PO ×2 (11:50→22:51)
[2024-07-22] MEDS: LISINOPRIL 5 MG TABLET 2.5 MG PO (11:51)
[2024-07-22] MEDS: METHIMAZOLE 5 MG TABLET PO (11:52)
--- NOTE | 2024-07-22 12:12 | CM.NOTE ---
Spoke with pt and family at bedside regarding PT and OT recommendations for skilled therapy at discharge. Pt at this time is living with daughter but does not have around the clock care. Family voice concerns with multiple fall recently at home and pt unable to remember medications and when to take them. Family have discussed in home care givers but have not hired anyone at this time. Pt and family given 5 star Med. Gov ratings for skilled facility. Family and pt will discuss and Case management will go back and speak with them this afternoon.
--- NOTE | 2024-07-22 13:12 | CM.NOTE ---
Logging Operations Inspector back in to speak with pt and family regarding discharge planning. Pt and family have decided [facility] skilled therapy at discharge.
--- NOTE | 2024-07-22 13:49 | CM.NOTE ---
Called Jazmyn at [facility]. She has semi-private room available, discussed with family and pt. Pt is agreeable to semi-private room. New Referral sent to Jazmyn, face sheet, Case management referral and Physician notes.
[2024-07-22 14:13] LABS: Troponin I High Sensitivity 157.4 pg/mL (4.0-51.3)
--- NOTE | 2024-07-22 14:36 | CM.NOTE ---
Jazmyn from [facility] e-mailed that pt is a [facility] patient but she has a message out to her contact at [facility] to verify. If she is [facility] we can waive the 3 midnight stay and she could go skilled when she is ready for dc. Jurgen txt sent to Dr. Sosa for update and notified pt's family. Jazmyn was able to get in touch with her contact and 3 day stay can be waived.
[2024-07-22] MEDS: ACETAMINOPHEN 500 MG TABLET 1000 MG PO (16:11)
[2024-07-22 16:57] LABS: Troponin I High Sensitivity 164.1 pg/mL (4.0-51.3)
--- NOTE | 2024-07-22 17:15 | CT_ITS ---
[address] [address] Patient Name: SALINA MORENO MRN: [id number] date: 1940 Sex: F Assigned Patient Location: [place] Current Patient Location: [place] Accession/Order Number: [id number] Exam Date: 07/22/2024 18:06 Report Date: 07/22/2024 18:13 At the request of: KRISTYN HUTCHINSON MD Procedure: CT angio chest CTA Chest with PE protocol TECHNIQUE: Axial imaging with 2-D and 3-D reconstruction. 100 cc of Omnipaque [address] exam was performed using one or more the following dose reduction techniques: Automated exposure control, adjustment of the MA and/or Kv according to patient size, or use of the iterative reconstruction technique. History: Elevated troponin. Confusion. COMPARISON: 12/24/2020 THYROID: Unremarkable TRACHEA AND BRONCHI: Patent ESOPHAGUS: Unremarkable. HEART: Cardiomegaly PERICARDIAL EFFUSION: None CORONARY ARTERY CALCIFICATION: Present MEDIASTINUM: No adenopathy. No pneumoperitoneum. No mediastinal hematoma. PULMONARY ROBBI: No hilar mass or adenopathy is seen. THORACIC AORTA Unremarkable PULMONARY EMBOLUS: None LUNG NODULE None LUNGS: Mild atelectasis PLEURAL EFFUSION: None PNEUMOTHORAX: No pneumothorax seen. CHEST WALL: No abnormality AXILLA: Unremarkable BONY STRUCTURES thoracic spondylosis. UPPER ABDOMEN: Moderate right hemidiaphragm elevation. CT/CT angio chest IMPRESSION: No acute pulmonary embolus. Cardiomegaly. Mild atelectasis. Coronary artery calcification. Impression dictated by: Ten De Souza M.D. 07/22/2024 6:13 PM Dictation Location: [employer] Electronically authenticated by: [id number] Y Date: 07/22/2024 18:13
[2024-07-22] MEDS: ATORVASTATIN CALCIUM 40 MG TABLET 80 MG PO (22:50)
[2024-07-22] MEDS: LORAZEPAM 0.5 MG TABLET PO (22:51)
[2024-07-23] VITALS (21 sets, daily range): BP systolic 102–136; BP diastolic 58–78; PULSE 69–72; TEMP 36.4–37; O2SAT 95–98
[2024-07-23 05:38] LABS: Hematocrit 31.2 % (36.0-48.0); Hemoglobin 9.9 g/dL (12.0-16.0); Mean Corpuscular HGB Conc 31.7 g/dL (29.9-35.2); Mean Corpuscular Hemoglobin 31.1 pg (26.7-34.0); Mean Corpuscular Volume 98.1 fL (81.0-99.0); Mean Platelet Volume 10.3 fL (9.5-13.5); Platelet Count 173 10^3/uL (150-450); Red Blood Count 3.18 10^6/uL (4.20-5.40); Red Cell Distribution Width 13.6 % (11.0-15.0); White Blood Count 7.2 10^3/uL (4.0-11.0)
[2024-07-23 05:56] LABS: Alanine Aminotransferase 30 U/L (14-59); Albumin Globulin Ratio 0.7; Albumin Level 2.7 g/dL (3.4-5.0); Alkaline Phosphatase 80 U/L (46-116); Anion Gap 13.3; Aspartate Amino Transferase 32 U/L (15-37); BUN Creatinine Ratio 26.3; Bilirubin Total 0.5 mg/dL (0.2-1.0); Calcium 9.1 mg/dL (8.5-10.1); Chloride 101 mmol/L (98-107); Estimated GFR (African America 45 (>=60 mL/min/1.73m^2); Estimated GFR (Non-African Ame 37 (>=60 mL/min/1.73m^2); Globulin 3.7 g/dL; Glucose 118 mg/dL (74-106); Potassium 4.3 mmol/L (3.5-5.1); Sodium 138 mmol/L (136-145); Total Protein 6.4 g/dL (6.4-8.2)
[2024-07-23 06:03] LABS: Eosinophils Absolute Manual 0.14 10^3/uL (0.00-0.70); Lymphocytes Absolute Manual 0.57 10^3/uL (1.20-3.80); Monocytes Absolute Manual 0.72 10^3/uL (0.30-0.80); Segmented Neut Absolute Manual 5.76 10^3/uL (1.4-6.5)
[2024-07-23 06:11] LABS: Troponin I High Sensitivity 117.4 pg/mL (4.0-51.3)
--- NOTE | 2024-07-23 09:00 | P.PN_ITS ---
Progress Note: Subjective Subjective Interval history: Patient is resting comfortably in bed. She lists everything she ate for lunch, daughter at bedside. patient has no complaints. Denies chest pain, denies shortness of breath. I updated daughter on labs, echo, and findings on ultrasound RUQ. 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 I discussed with daughter that we can make sure this is followed up by PCP and MRI is ordered outpatient. Troponin is decreasing and level was 163, down to 117 this morning. Cr improved 1.47, to 1.37. She [facility] once medically stable. Discussed with Daughter plan for discharge tomorrow. Exam Narrative Exam Narrative: General: Patient is alert, and oriented to person, place normal affect, proper hygiene Skin: no visible rashes, or ulcers Head: atraumatic, acephalic Heart: Normal rate and rhythm, no murmurs/rubs/gallops Lungs: no audible wheezes, crackles and normal breath sounds all lung low Abdomen: Normal audible bowel sounds, no distension, No palpable masses, no organomegaly, no rebound/guarding/ or rigidity Musculoskeletal: no swelling bilateral lower extremities Neuro: CN II-X grossly intact Constitutional Vital Signs, click to edit/add: Last Vital Signs Temp 97.6 F 07/23/24 08:21 Pulse 70 07/23/24 08:21 Resp 16 07/23/24 08:21 BP 121/74 07/23/24 08:21 Pulse Ox 97 07/23/24 08:21 O2 Del Method Nasal Cannula 07/23/24 08:21 O2 Flow Rate 2 07/23/24 08:21 Progress Note: Objective Labs Labs: Short CBC 07/23/24 Range/Units 05:19 WBC 7.2 (4.0-11.0) 10^3/uL Hgb 9.9 L (12.0-16.0) g/dL Hct 31.2 L (36.0-48.0) % Plt Count 173 (150-450) 10^3/uL BMP 07/23/24 05:19 Sodium 138 Potassium 4.3 Chloride 101 Carbon Dioxide 28.0 BUN 36.0 H Creatinine 1.37 H Glucose 118 H Calcium 9.1 Liver Function 07/23/24 Range/Units 05:19 Total Bilirubin 0.5 (0.2-1.0) mg/dL AST 32 (15-37) U/L ALT 30 (14-59) U/L Alkaline Phosphatase 80 (46-116) U/L Albumin 2.7 L (3.4-5.0) g/dL Progress Note: A&P Assessment and Plan (1) Acute UTI: Assessment and Plan: Urine culture pending, continue with Rocephin IV (2) Acute and chronic respiratory failure with hypoxia: Assessment and Plan: Patient was found at home without her oxygen and saturation were in the 60's; This acute hypoxic event has also caused stress on heart. She is now back to wearing her home 2L via NC. Chest CTA showed no acute PE's or pneumonia present. (3) NSTEMI (non-ST elevated myocardial infarction): Assessment and Plan: Most likely Type 2 due to hypoxic episode, ECHO showed no acute wall abnorm alities, trop Trending down; also elevated BUN, Cr with UTI, No evidence of PE. (4) Altered mental status: Assessment and Plan: secondary to #1 but appears at baseline today Qualifiers: Altered mental status type: disorientation Qualified Code(s): R41.0 - Disorientation, unspecified (5) COPD (chronic obstructive pulmonary disease): Assessment and Plan: Patient with chronic COPD, continue scheduled neb treatments, WBC's normal and CTA chest normal with no signs of pneumonia. Qualifiers: COPD type: unspecified COPD Qualified Code(s): J44.9 - Chronic obstructive pulmonary disease, unspecified (6) Dependence on supplemental oxygen: Assessment and Plan: wears 2L via NC at home. 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 continue aspirin, atorvastatin, eliquis Qualifiers: CVA mechanism: unspecified Qualified Code(s): I63.9 - Cerebral infarction, unspecified (9) HTN (hypertension): Assessment and Plan: continue home meds Qualifiers: Hypertension type: primary hypertension Qualified Code(s): I10 - Essential (primary) hypertension (10) Cardiac defibrillator in place: (11) A-fib: Assessment and Plan: continue eliquis, metoprolol Qualifiers: Atrial fibrillation type: unspecified chronic Qualified Code(s): I48.20 - Chronic atrial fibrillation, unspecified (12) Dementia: Assessment and Plan: continue paxil and Rexulti Qualifiers: Dementia behavioral or psychological symptom: unspecified whether behavioral, psychotic, or mood disturbance or anxiety Dementia severity: moderate Dementia type: unspecified type Qualified Code(s): F03.B0 - Unspecified dementia, moderate, without behavioral disturbance, psychotic dis turbance, mood disturbance, and anxiety (13) Liver mass: Assessment and Plan: discussed ultrasound findings with daughter and patient. Will plan for follow up, MRI as outpatient. Normal liver function tests, no abdominal pain. Plan Patient is a full code Currently on Eliquis for DVT prophylaxis Continue treatment with Rocephin, monitor troponin but trending down. Probable discharge tomorrow.
[2024-07-23] MEDS: LISINOPRIL 5 MG TABLET 2.5 MG PO (09:56)
[2024-07-23] MEDS: METOPROLOL SUCCINATE 50 MG TAB.ER.24H PO (09:56)
[2024-07-23] MEDS: CALCIUM CARBONATE 600 MG/VITAMIN D3 400 IU TABLET 1 TAB PO (09:56)
[2024-07-23] MEDS: CHOLECALCIFEROL (VITAMIN D3) 25 MCG/1,000 UNITS TABLET PO (09:56)
[2024-07-23] MEDS: PAROXETINE HCL 20 MG TABLET PO (09:56)
[2024-07-23] MEDS: MULTIVITAMIN TABLET 1 TAB PO (09:56)
[2024-07-23] MEDS: BUMETANIDE 1 MG TABLET PO (09:57)
[2024-07-23] MEDS: APIXABAN 5 MG TABLET PO ×2 (09:57→21:05)
[2024-07-23] MEDS: ASPIRIN 81 MG TAB.CHEW PO (09:57)
[2024-07-23] MEDS: SPIRONOLACTONE 25 MG TABLET PO (09:57)
[2024-07-23] MEDS: METHIMAZOLE 5 MG TABLET PO (10:04)
[2024-07-23] MEDS: CEFTRIAXONE 1,000 MG in 0.9 % SODIUM CHLORIDE 50 ML 100 MG IV (10:04)
--- NOTE | 2024-07-23 10:45 | PT.DAILY ---
Physical Therapy Daily Note PT Daily Note/Assess Start: 07/23/24 10:31 Freq: Status: Active Protocol: Document 07/23/24 10:31 [id number] (Rec: 07/23/24 10:44 [id number]) Physical Therapy Daily Note/Assessment Time In/Time Out Time In 08:41 Time Out 09:04 Pain In Pain Level 0 Pain Out Pain Level 0 Subjective Subjective Patient received supine in bed. Agreeable to participate with PT. Daughter present during treatment . Patient requests to use bathroom. Bed alarm disengaged prior to treatment. Therapeutic Exercise Time Therapeutic Exercise 5 Minutes (minutes) Therapeutic Exercise 0 Units Therapeutic Exercise Treatment Therapeutic Exercise Patient performed seated EOB ALYCE LE ther ex at 10 reps Treatment for: heel/toe raises, LAQ, marching, hip ABD/ADD. Ther ex to increase ALYCE LE strengthening for functional mobility. Required redirection several times to stay on task. Therapeutic Activity Time Therapeutic Activity 18 Minutes (minutes) Therapeutic Activity 1 Units Therapeutic Activity Treatment Bed Mobility Ability Minimum Assist Chair Transfer Contact Guard Assist,Minimum Assist Ability Therapeutic Activity Bed mobility: supine to L rolling to sit EOB MIN A + 1 Comments for LE management. Patient sits EOB with ALYCE UE support while performing ALYCE LE ther ex. Transfer: sit to 2WW CGA to MIN A +1. Verbal cues for safe hand placement on bed with transition to 2WW. Patient ambulated ~20 feet to bathroom with CGA +1. Verbal cues for 2WW management to keep in front of her for safety while turning to sit on commode. Patient uses 1 UE on seat of commode while sitting. Verbal cues to use handrail. Patient is independent in cleaning zaid area. Commode to 2WW transfer with VC's for safe hand placement. Patient walks to sink and is able to cleanse hands without LOB. Performed 5 sit to stands at EOB. Each rep required VC's for safe and appropriate technique. Patient transferred to supine into bed with MIN A +1 for ALYCE LE management. Bed alarm engaged, CBWR and needs meet. Nursing notified of patient placement and acknowledges information. Total Physical Therapy Time Total Therapy 23 Minutes Total Physical 1 Therapy Units Summary Daily Note Summary Patient continues to require verbal cueing for safety during functional tasks and mobility. Patient is able to keep hands safely on 2WW while ambulating this date. Patient is risk for falls due to decreased safety awareness. Patient would benefit from SNF to address functional/cognitive deficits.
[2024-07-23] MEDS: IPRATROPIUM/ALBUTEROL SULFATE 3 ML AMPUL.NEB IH ×2 (10:51→16:51)
[2024-07-23] MEDS: LORAZEPAM 0.5 MG TABLET PO (21:05)
[2024-07-23] MEDS: ATORVASTATIN CALCIUM 40 MG TABLET 80 MG PO (21:05)
[2024-07-24] VITALS (14 sets, daily range): BP systolic 115–154; BP diastolic 75–84; PULSE 70–105; TEMP 36.5–37.4; O2SAT 95–98
[2024-07-24 07:08] LABS: Hemoglobin 9.9 g/dL (12.0-16.0); Mean Corpuscular HGB Conc 31.9 g/dL (29.9-35.2); Mean Corpuscular Hemoglobin 30.9 pg (26.7-34.0); Mean Corpuscular Volume 96.9 fL (81.0-99.0); Mean Platelet Volume 10.5 fL (9.5-13.5); Platelet Count 182 10^3/uL (150-450); White Blood Count 5.1 10^3/uL (4.0-11.0)
[2024-07-24 07:31] LABS: Alanine Aminotransferase 46 U/L (14-59); Albumin Globulin Ratio 0.8; Albumin Level 2.7 g/dL (3.4-5.0); Alkaline Phosphatase 82 U/L (46-116); Anion Gap 12.7; Aspartate Amino Transferase 45 U/L (15-37); BUN Creatinine Ratio 24.5; Bilirubin Total 0.4 mg/dL (0.2-1.0); Calcium 8.9 mg/dL (8.5-10.1); Carbon Dioxide 27.9 mmol/L (21.0-32.0); Chloride 105 mmol/L (98-107); Estimated GFR (African America 44 (>=60 mL/min/1.73m^2); Estimated GFR (Non-African Ame 36 (>=60 mL/min/1.73m^2); Globulin 3.5 g/dL; Glucose 111 mg/dL (74-106); Potassium 4.6 mmol/L (3.5-5.1); Sodium 141 mmol/L (136-145); Total Protein 6.2 g/dL (6.4-8.2)
[2024-07-24 07:33] LABS: Troponin I High Sensitivity 68.3 pg/mL (4.0-51.3)
[2024-07-24 07:39] LABS: Segmented Neut Absolute Manual 3.67 10^3/uL (1.4-6.5)
[2024-07-24 07:40] LABS: Anisocytosis 1+; Lymphocytes Absolute Manual 0.51 10^3/uL (1.20-3.80); Monocytes Absolute Manual 0.61 10^3/uL (0.30-0.80)
--- NOTE | 2024-07-24 09:12 | PM.DS1 ---
DS: Providers Provider Date of admission: 07/22/24 09:55 Primary care physician: RUDY DIAZ Attending physician on admission: Montez Sosa Consults: 07/22/24 09:55 Consult to Pharmacy Routine Consulting Provider: Reason for consultation: Please [place] me when Med Rec is Updated Has provider been notified: No Occupational Therapy Eval and Treat Routine Reason for consultation: Only if needed for Rehab Has provider been notified: No Physical Therapy Eval and Treat Routine Reason for consultation: Eval and Treat Has provider been notified: No 07/23/24 09:09 Occupational Therapy Eval and Treat Routine Reason for consultation: weakness Has provider been notified: No Physical Therapy Eval and Treat Routine Reason for consultation: weakness Has provider been notified: No Discharging clinician: Sakina Manuel DS: Diagnosis Discharge Diagnosis (1) Acute UTI: (2) Acute and chronic respiratory failure with hypoxia: (3) NSTEMI (non-ST elevated myocardial infarction): (4) Altered mental status: Qualifiers: Altered mental status type: disorientation Qualified Code(s): R41.0 - Disorientation, unspecified (5) COPD (chronic obstructive pulmonary disease): Qualifiers: COPD type: unspecified COPD Qualified Code(s): J44.9 - Chronic obstructive pulmonary disease, unspecified (6) Dependence on supplemental oxygen: (7) CHF (congestive heart failure): Qualifiers: Heart failure chronicity: chronic Heart failure type: combined systolic and diastolic Qualified Code(s): I50.42 - Chronic combined systolic (congestive) and diastolic (congestive) heart failure (8) CVA (cerebral vascular accident): Qualifiers: CVA mechanism: unspecified Qualified Code(s): I63.9 - Cerebral infarction, unspecified (9) HTN (hypertension): Qualifiers: Hypertension type: primary hypertension Qualified Code(s): I10 - Essential (primary) hypertension (10) Cardiac defibrillator in place: (11) A-fib: Qualifiers: Atrial fibrillation type: unspecified chronic Qualified Code(s): I48.20 - Chronic atrial fibrillation, unspecified (12) Dementia: Qualifiers: Dementia behavioral or psychological symptom: unspecified whether behavioral, psychotic, or mood disturbance or anxiety Dementia severity: moderate Dementia type: unspecified type Qualified Code(s): F03.B0 - Unspecified dementia, moderate, without behavioral disturbance, psychotic disturbance, mood disturbance, and anxiety (13) Liver mass: DS: Summary Hospital Course Hospital Course: patient was admitted on 07/22/24 for a fall and increased confusion. She was found not wearing her oxygen and oxygen sats 60's. It is uncertain how long she had been without it. She was found to have elevated troponin 186 which is down to 68 on the day of discharge. She had ECHO completed which showed EF 57% and no acute wall motion abnormalities. She never had chest pain. Chest CTA showed no acute PE's or pneumonia present. She is now back to wearing her home 2L via NC. Due to elevated bilirubin a RUQ ultrasound was ordered. I updated daughter on labs, echo, and findings on ultrasound RUQ. 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 I discussed with daughter that we can make sure this is followed up by PCP and MRI is ordered outpatient. Cr improved 1.47, to 1.37. Urine culture was positive for E.Coli but sensitives pending. I will place patient on Augmentin 500mg BID x 5 days. She was continued on Rocephin here. [facility] She will resume all other home medications. Status at Discharge Functional status at discharge: uses cane/walker Overall status at discharge: patient is progressing back to baseline Time Spent with Patient Time attestation: Total time spent providing and/or coordinating discharge services: Time spent: greater than 30 minutes Exam Narrative Exam Narrative: General: Patient is alert, and oriented to person, place normal affect, proper hygiene Skin: no visible rashes, or ulcers Head: atraumatic, acephalic Heart: Normal rate and rhythm, no murmurs/rubs/gallops Lungs: no audible wheezes, crackles and normal breath sounds all lung low Abdomen: Normal audible bowel sounds, no distension, No palpable masses, no organomegaly, no rebound/guarding/ or rigidity Musculoskeletal: no swelling bilateral lower extremities Neuro: CN II-X grossly intact Constitutional Vital Signs, click to edit/add: Last Vital Signs Temp 98.0 F 07/24/24 08:40 Pulse 70 07/24/24 08:40 Resp 18 07/24/24 08:40 BP 154/84 H 07/24/24 08:40 Pulse Ox 95 07/24/24 08:40 O2 Del Method Nasal Cannula 07/24/24 08:40 O2 Flow Rate 2 07/24/24 08:40 DS: Data Data Completed and Pending Labs on day of discharge: Labs from last 24 hours 07/24/24 06:32 WBC 5.1 RBC 3.20 L Hgb 9.9 L Hct 31.0 L MCV 96.9 MCH 30.9 MCHC 31.9 RDW 14.0 Plt Count 182 MPV 10.5 Seg Neuts % (Manual) 72.0 Lymphocytes % (Manual) 10.0 L Monocytes % (Manual) 12.0 Eosinophils % (Manual) 6.0 Basophils % (Manual) 0.0 L Neutrophils # (Manual) 3.67 Lymphocytes # (Manual) 0.51 L Monocytes # (Manual) 0.61 Eosinophils # (Manual) 0.30 Basophils # (Manual) 0.00 Anisocytosis 1+ Sodium 141 Potassium 4.6 Chloride 105 Carbon Dioxide 27.9 Anion Gap 12.7 BUN 34.0 H Creatinine 1.39 H Est GFR ( Amer) 44 L Est GFR (Non-Af Amer) 36 L BUN/Creatinine Ratio 24.5 Glucose 111 H Calcium 8.9 Total Bilirubin 0.4 AST 45 H ALT 46 Alkaline Phosphatase 82 Troponin I High Sens 68.3 H* NT-Pro-B Natriuret Pep 3384.0 H* Total Protein 6.2 L Albumin 2.7 L Globulin 3.5 Albumin/Globulin Ratio 0.8 Discharge Plan Discharge Disposition: er [facility] Condition: Fair Discharge Medications: New amoxicillin-pot clavulanate [Augmentin] 500-125 mg tablet 1 tab PO Q12H 5 Days Qty: 10 0RF Continued albuterol sulfate 90 mcg/actuation HFA aerosol inhaler 2 puff INHALATION Q4H PRN (Reason: shortness of breath or wheezing) aspirin 81 mg capsule 81 mg PO DAILY lisinopril 5 mg tablet 2.5 mg PO .QD Rexulti 0.5 mg tablet 0.25 mg PO .qd multivitamin [Daily Multi-Vitamin] Tablet 1 tab PO DAILY cholecalciferol (vitamin D3) [Vitamin D3] 25 mcg (1,000 unit) tablet 25 mcg PO DAILY calcium carbonate-vitamin D3 [Calcium 600 + D(3)] 600 mg-5 mcg (200 unit) capsule 1 cap PO DAILY bumetanide 1 mg tablet 1 mg PO DAILY PRN (Reason: water retention) lorazepam 0.5 mg tablet 0.5 mg PO BEDTIME 1 Days Qty: 1 0RF atorvastatin 80 mg tablet 80 mg PO .QHS metoprolol succinate 50 mg tablet extended release 24 hr 50 mg PO .QD spironolactone 25 mg tablet 25 mg PO QAM paroxetine HCl 20 mg tablet 20 mg PO .QD methimazole 10 mg tablet 5 mg PO .QD Patient Comments: pt takes 1/2 pill only on Thursday, Thursday, , Thursday. Does NOT take on Thursday, Thursday, and Thursday Eliquis 5 mg tablet 5 mg PO Q12H Print Language: Hebrew Activity Restrictions/Additional Instructions: please wear 2L continuous oxygen via NC Forms: Portal Instructions Follow Up Appointments: Will need follow up with PCP 1-2 week for discussion on Ultrasound RUQ findings and to schedule outpatient MRI of the Liver Discharge location: To the [facility]
[2024-07-24] MEDS: METHIMAZOLE 5 MG TABLET PO (09:45)
[2024-07-24] MEDS: BUMETANIDE 1 MG TABLET PO (09:46)
[2024-07-24] MEDS: LISINOPRIL 5 MG TABLET 2.5 MG PO (09:46)
[2024-07-24] MEDS: METOPROLOL SUCCINATE 50 MG TAB.ER.24H PO (09:46)
[2024-07-24] MEDS: CALCIUM CARBONATE 600 MG/VITAMIN D3 400 IU TABLET 1 TAB PO (09:47)
[2024-07-24] MEDS: MULTIVITAMIN TABLET 1 TAB PO (09:47)
[2024-07-24] MEDS: PAROXETINE HCL 20 MG TABLET PO (09:47)
[2024-07-24] MEDS: APIXABAN 5 MG TABLET PO (09:47)
[2024-07-24] MEDS: CHOLECALCIFEROL (VITAMIN D3) 25 MCG/1,000 UNITS TABLET PO (09:47)
[2024-07-24] MEDS: ASPIRIN 81 MG TAB.CHEW PO (09:47)
[2024-07-24] MEDS: SPIRONOLACTONE 25 MG TABLET PO (09:48)
[2024-07-24] MEDS: CEFTRIAXONE 1,000 MG in 0.9 % SODIUM CHLORIDE 50 ML 100 MG IV (09:52)
[2024-07-24] MEDS: IPRATROPIUM/ALBUTEROL SULFATE 3 ML AMPUL.NEB IH (11:17)
--- NOTE | 2024-07-25 08:26 | SWNOTE1 ---
07/24/24 - LENNY received a call from Dr. Mnauel in regards to pt. Family is concerned that Medicare will not pay for rehab since she will not have 3 day stay. Pt is part of [facility] as she is a [facility] pt and is going to [facility]. Per doctor pt is ready for discharge today and would like SW to verify with [facility]. LENNY reached out to Jazmyn at [facility]. Jazmyn responded that she did verify with [facility] on Thursday and pt will not have any cost, if Medicare does not pay, [facility] will eat the cost. LENNY called the hospital and was able to speak with daughter. SW re-assured daughter that SW spoke with Jazmyn at [facility] and there will be no cost to pt/family for rehab due to this program and if Medicare does not pay, [facility] will eat the cost. Daughter then voiced that she called to [facility] earlier and they were not aware she was coming today. LENNY assured pt's daughter that SW will call over to [facility] and let them know she is coming today and nursing will get the orders over. Daughter would like transport set up as she would feel more safe with pt going with transportation versus family transporting. LENNY did explain that we can set up stretcher transport and it will get billed to Medicare, but unsure it will get covered. Daughter voiced understanding. LENNY updated doctor and nurse. LENNY called [facility] and spoke with nurse in charge and she voiced understanding that pt is coming today. She stated they just need time and discharge paperwork. LENNY advised nurse that [facility] just needs time and discharge paperwork
--- NOTE | 2024-07-25 12:00 | SWNOTE1 ---
LENNY sent UA and cultures results to Jazmyn at [facility] for continuity of care.
--- NOTE | 2024-07-25 14:09 | CM.NOTE ---
Dr. Manuel given final urine culture report.
== END 2024-07-24 16:07 | DRG 689 ==
LOC: ER 09:02 → MS 09:29
PROVIDERS: Emergency Medicine; Family Medicine; Admitting Provider Family Medicine; Emergency Provider Internal Medicine; PCP Internal Medicine; Visit Provider Family Medicine
DX: N39.0 Urinary tract infection, site not specified (principal); I21.A1 Myocardial infarction type 2; J96.21 Acute and chronic respiratory failure with hypoxia; I50.42 Chronic combined systolic (congestive) and diastolic (congestive) heart failure; I48.20 Chronic atrial fibrillation, unspecified; Z99.81 Dependence on supplemental oxygen; Z86.73 Personal history of transient ischemic attack (TIA), and cerebral infarction without residual deficits; I11.0 Hypertensive heart disease with heart failure; S80.02XA Contusion of left knee, initial encounter; W19.XXXA Unspecified fall, initial encounter; E86.0 Dehydration; Z95.810 Presence of automatic (implantable) cardiac defibrillator; Z90.49 Acquired absence of other specified parts of digestive tract; Z90.710 Acquired absence of both cervix and uterus; I25.10 Atherosclerotic heart disease of native coronary artery without angina pectoris; F03.B0 Unspecified dementia, moderate, without behavioral disturbance, psychotic disturbance, mood disturbance, and anxiety; K76.9 Liver disease, unspecified; E80.6 Other disorders of bilirubin metabolism; B96.20 Unspecified Escherichia coli [E. coli] as the cause of diseases classified elsewhere; J44.9 Chronic obstructive pulmonary disease, unspecified
CPT/HCPCS: 36415; 70450; 71045; 71275; 72125; 76700; 80048; 80053; 80076; 81001; 82550; 82800; 83605; 83735; 83880; 84436; 84443; 84484; 85007; 85025; 85027; 85378; 87086; 87088; 87186; 93005; 93306; 94640; 94667; 94668; 94761; 96365; 97161; 97165; 97530; 97535; 99285; J0696; Q9967

== ENCOUNTER 2024-08-18 08:29 | Outpatient (OUT) | payer MEDICARE, OTHER, SELFPAY ==
--- OUTSIDE RECORDS SUMMARY | 2024-08-18 08:50 | XMS_ITS | CCD ---
Author Organization [facility] Care Team Providers Care Station Mechanic Helper Name Role Phone KEANU ISLAS Admitting Unavailable [...] Unavailable ZIEBER, DR JOEL Petersen Consulting Unavailable ELIUDKEANU Oh Consulting Unavailable CHERY, SHELDON Consulting Unavailable CHERY, SHELDON Attending Unavailable CHERY, SHELDON Admitting Unavailable EMILY, DR GRANT Primary Care Unavailable OBELIEL CELESTE Attending Unavailable OLE YANG Referring Unavailable OLE YANG Primary Care Unavailable Ole Yang MD Unavailable Ole Yang MD Primary Care Provider Keon SLAT BASKET TOP MAKER, Eba Unavailable Debora Saenz RN Unavailable [phone] Ole Yang MD Primary Care Provider Alcantara SLAT BASKET TOP MAKER, Edna Unavailable Unavailable Michael Zapien Attending Provider Luis E Soares MD Attending Provider [phone] Luis E Soares Attending Unavailable Luis E Soares Admitting Unavailable KEANU ISLAS Referring Unavailable KEANU ISLAS Referring Unavailable KEANU ISLAS Referring Unavailable CLAUDIO SANCHEZ Attending Unavailable CLAUDIO SANCHEZ Attending Unavailable KEANU ISLAS Referring Unavailable KEANU ISLAS Referring Unavailable KEANU ISLAS Referring Unavailable ELIUD, KEANU Referring Unavailable ELIUD, KEANU Referring Unavailable ELIUD, KEANU Referring Unavailable DANIKA, NILE Referring Unavailable ELIUD, KEANU Referring Unavailable ELIUD, KEANU Referring Unavailable DANIKA, NILE Referring Unavailable Edna Alcantara LPN Unavailable OLE YANG Attending Unavailable TERI MARTINEZ Attending Unavailable DIPTI ANDERSON Attending Unavailable HEMDIPTI CHAIREZ Attending Unavailable DIPTI ANDERSON Attending Unavailable OLE YANG Attending Unavailable HEMDIPTI CHAIREZ Attending Unavailable HEMDIPTI CHAIREZ Attending Unavailable TERI MARTINEZ F Attending Unavailable TERI MARTINEZ F Referring Unavailable HEMDIPTI CHAIREZ Attending Unavailable Medications Current Medications Medication Drug Class(es) Dates Sig (Normalized) Sig (Original) [id number] 200 actuat albuterol 0.09 mg/actuat metered dose inhaler (20 sources) beta2-Adrenergic Agonist Start: 12-16-2022 End: 12-26-2023 take 2 puff(s) by inhalation every four hours for wheezing albuterol HFA 90 mcg/act inhaler Indications: Pulmonary emphysema, unspecified emphysema type (HCC) Inhale 2 puffs every 4 (four) hours if needed for wheezing 18 g 3 11/26/2023 Active apixaban 5 mg oral tablet (20 sources) Factor Xa Inhibitor Start: 03-02-2024 take 1 tablet by mouth in the morning apixaban (Eliquis) 5 MG tablet Indications: Paroxysmal atrial fibrillation (HCC) Take 1 tablet (5 mg) by mouth [...] of citizen [place] heart without angina pectoris Take 1 tablet (80 mg) by mouth [...] the morning. 100 tablet 3 02/18/2023 Active brexpiprazole 0.5 mg oral tablet (8 sources) Atypical Antipsychotic Start: 07-18-2024 take 0.25 mg by mouth once daily Brexpiprazole (Rexulti) 0.5 MG tablet Indications: Dementia with behavioral disturbance (HCC) Take 0.25 mg by mouth Daily 60 tablet 3 07/18/2024 Active Start: 07-07-2024 take 0.25-0.5 mg by mouth once daily, then take 0.25 tablet by mouth once daily, then take 2 tablets by mouth once daily Brexpiprazole (Rexulti) 0.25 MG tablet Indications: Dementia with behavioral disturbance (HCC) Take 0.25-0.5 mg by mouth Daily Take 0.25 daily for two weeks then 0.5 mg daily. 60 tablet 2 07/07/2024 Active 120 actuat budesonide 0.16 mg/actuat / formoterol fumarate 0.0048 mg/actuat / glycopyrrolate 0.009 mg/actuat metered dose inhaler (20 sources) Corticosteroid, beta2-Adrenergic Agonist Start: 03-16-2024 take 2 puff(s) by inhalation in the morning Gvkybhn-Eflitxmldtc-Muphvuvpqx (Breztri Aerosphere) 160-9-4.8 MCG/ACT aerosol Indications: Pulmonary emphysema, unspecified emphysema type (HCC) Inhale 2 puffs in the morning and [...] time Active cholecalciferol 0.05 mg oral capsule (17 sources) Vitamin D take 1 capsule by [...] lisinopril 5 MG tablet Indications: Primary hypertension Take 0.5 tablets (2.5 mg) by mouth [...] mg oral tablet (20 sources) Benzodiazepine Start: 07-07-2024 LORazepam (Ati van) 0.5 MG tablet Indications: Anxiety Take 1 tablet (0.5 mg) by mouth as needed at bedtime for anxiety 07/07/2024 Active Start: 08-21-2021 End: 05-12-2024 take 1 [...] (20 sources) Thyroid Hormone Synthesis Inhibitor Start: 06-07-2024 methIMAzole (Tapazole) 10 MG tablet Indications: Hyperthyroidism TAKE ONE-HALF (1/2) TABLET ON THURSDAY, THURSDAY, THURSDAY AND THURSDAY 26 tablet 3 06/07/2024 Active Start: 03-02-2024 methIMAzole (T apazole) 10 MG tablet Indications: Hyperthyroidism (CMS/HCC) Take [...] 24 hr tablet Indications: Paroxysmal atrial fibrillation (HCC) Take 1 tablet (50 mg) by mouth [...] MG tablet Indications: Chronic systolic heart failure (HCC) Take 1 tablet (25 mg) by mouth [...] Onset: 05-16-2022 07-28-2022 Chronic Chronic kidney disease (20 sources) Chronic kidney disease stage 3B ; Translations: [Chronic kidney disease, stage 3b (HCC) (CMS/HCC)] Onset: 02-25-2024 02-25-2024 Chronic Chronic kidney disease (2 sources) Chronic kidney disease; Translations: [Chronic kidney disease, stage 3b] Onset: 08-11-2024 Chronic obstructive pulmonary disease and bronchiectasis (20 [...] pectoris] Onset: 09-24-2015 Resolved: 02-25-2024 12-16-2022 Chronic Delirium, dementia, and amnestic and other cognitive disorders (2 sources) Dementia with behavioral disturbance; Translations: [Dementia with behavioral disturbance (HCC)] 08-15-2024 Chronic Disorders of lipid metabolism (3 sources) Hyperlipidemia, unspecified; Translations: [Pure hypercholesterolemia, unspecified] Onset: 06-20-2021 Chronic Essential hypertension (20 sources) Essential (primary) hypertension; Translations: [Hypertensive disorder] Onset: 09-24-2015 Chronic Heart valve disorders (20 sources) Rheumatic disorders of both mitral and tricuspid valves; Translations: [Non-rheumatic mitral regurgitation ] Onset: 06-14-2021 07-28-2022 Chronic Hypertension with complications and secondary hypertension (20 sources) Benign hypertensive heart disease; Translations: [Hypertensive [...] 07-28-2022 Chronic Other and ill-defined heart disease (20 sources) Chronic systolic dysfunction of left ventricle; Translations: [Heart disease, unspecified] Onset: 07-28-2022 07-28-2022 Chronic Other and ill-defined heart disease (2 sources) Heart disease, unspecified; Translations: [Heart disease, unspecified] Onset: 12-30-2022 Chronic Other circulatory disease (1 source) Personal history of transient ischemic attack (TIA), and cerebral infarction without residual deficits; Translations: [PERS HX TIA AND CI NO RESID DEFICIT] Onset: 03-20-2022 Episodic Other connective tissue disease (1 source) Repeated falls; Translations: [REPEATED FALLS] Onset: 03-20-2022 Episodic Other eye disorders (1 source) Monocular esotropia, right eye; Translations: [Monocular esotropia, right eye] Onset: 04-27-2023 Episodic Other lower respiratory disease (20 sources) Hypoxia; Translations: [Hypoxemia] Onset: 08-26-2023 08-26-2023 Episodic Laury-; endo-; and myocarditis; cardiomyopathy (except that caused by tuberculosis or sexually transmitted disease) (20 sources) Cardiomyopathy; Translations: [Cardiomyopathy, unspecified] Onset: 08-07-2023 09-01-2023 Chronic Residual codes; unclassified (2 sources) Localized edema; Translations: [Localized edema] 02-11-2023 Episodic Residual codes; unclassified (4 sources) Difficulty sleeping ; Translations: [Sleep disorder, unspecified] Onset: 07-07-2024 07-07-2024 Episodic Respiratory failure; insufficiency; arrest (adult) (20 sources) Dependence on supplemental oxygen; Translations: [Dependence [...] 03-20-2022 07-28-2022 Episodic Diabetes mellitus without complication (20 sources) Impaired fasting glycemia; Translations: [Impaired fasting glucose] Onset: 07-28-2022 07-28-2022 Episodic E Codes: Natural/environment (1 source) Overexertion from prolonged static or awkward postures, initial encounter; Translations: [OVEREXERT PROLNG STAT/AWK PST INIT] Onset: 06-18-2021 Episodic Mood disorders (20 sources) Mood disorders Onset: 05-27-2023 Resolved: 06-02-2024 05-27-2023 Other aftercare (1 source) emt intermediate (current) use of aspirin; Translations: [AIR EXPORT LOGISTICS MANAGER 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 ASPIRIN] Onset: 06-18-2021 Episodic Other aftercare (1 source) Other terminal gauger (current) drug therapy; Translations: [OTH FDC CURRENT DRUG THERAPY] Onset: 06-18-2021 Episodic Other aftercare (20 sources) Long-term current use of anticoagulant; Translations: [emt intermediate (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] Onset: 02-11-2023 02-11-2023 Episodic Other circulatory disease (20 sources) History [...] right eye] 04-28-2023 Episodic Other liver diseases (20 sources) Elevated liver enzymes level; Translations: [Abnormal levels of other serum enzymes] Onset: 07-28-2022 07-28-2022 Episodic Other lower respiratory disease (6 sources) Other forms of dyspnea; Translations: [OTHER FORMS OF DYSPNEA] Onset: 06-18-2021 Episodic Other lower respiratory disease (3 sources) Shortness of breath; Translations: [SHORTNESS OF BREATH] Onset: 06-04-2021 Episodic Other lower respiratory disease (20 sources) Dyspnea on exertion; Translations: [Other forms of dyspnea] Onset: 08-07-2023 08-26-2023 Episodic Other non-traumatic joint disorders (20 [...] STATES] Onset: 08-22-2021 Episodic Residual codes; unclassified (20 sources) Memory [...] Value Interpretation Reference Range Facility Office Visiton 08-11-2024 Follow-up visit [id number] Lluvia Moreno 1940 F Date Provider Department Center 08/11/2024 [id number] SANCHEZ CARD [facility] Family History Problem Relation Age of Onset Colon cancer Father Coronary artery disease Brother Hypertension Brother Kidney cancer Brother Family Status - Relation Status Age at Father Brother Level of Service:15149 [place] OFFICE/OUTPATIENT ESTABLISHED MOD MDM 30 MIN Reason for Visit and Comments: Atrial Fibrillation [80] Congestive Heart Failure [127] - She was discharged from [facility] a few weeks ago for UTI and NSTEMI. Cardiomyopathy [104] - Due for device check in Jan 2025 - was interrogated a few weeks ago. Coronary Artery Disease [187] Hypertension [042954] Hyperlipidemia [182] Shortness of Breath [226035] Edema [[id number]] - Had RX for Bumex to use PRN but daughter states she hasn't taken it in over 2 years. frequent falls [Other] - Says she fell 3-4 times last month. Normal [facility] URINE CULTURE - FRon 07-25 Interpretation and review of laboratory results Abnormal [facility] [place] [facility] [place] - [place] Testing performed at [facility] [place] [place] [facility] [address] [place] [address] [facility] [place]URE [place] [facility] O:ESCCOL Isolated [facility] [place] [facility] [place] Culture [place] FR [place] Count [facility] URINE CULTURE - FR >100,000 CFU/ml [facility] [place]URE [place] [facility] Organism: 1.1 Antibiotic Interpretation SYLVIA Status [facility] URINE CULTURE - FR Amikacin S F Susceptible [facility] URINE CULTURE - FR Amoxicillin/Clavulanate S F Susceptible [facility] URINE CULTURE - FR Ampicillin S F Susceptible [facility] URINE CULTURE - FR Aztreonam S F Susceptible [facility] URINE CULTURE - FR Ceftazidime S F Susceptible [facility] URINE CULTURE - FR Ceftazidime/Avibactam S F Susceptible [facility] URINE CULTURE - [facility] Ceftolozane/Tazobactam S F Susceptible [facility] - [facility] Ciprofloxacin S F Susceptible [facility] Ertapenem S F Susceptible [facility] Gentamicin S F Susceptible [facility] Levofloxacin S F Susceptible [facility]INE [facility] Meropenem S F Susceptible [facility] URINE [facility] - [facility] Meropenem/Vaborbactam S F Susceptible [facility] URINE [facility] Nitrofurantoin S F Susceptible [facility] Tetracycline S F Susceptible [facility] Tigecycline S F Susceptible [facility] URINE CULTURE [facility] Tobramycin S F Susceptible [facility] URINE CULT[facility] - [facility] Ampicillin/Sulbactam S F Susceptible [facility] URINE CULTURE - [facility] Cefazolin S F Susceptible [facility] URINE CULTURE - [facility] Cefepime S F Susceptible [facility] URINE CULTURE [facility] Ceftriaxone S F Susceptible [facility] URINE CULTURE - [facility] Cefuroxime S F Susceptible [facility] URINE CULTURE - [facility] Piperacillin/Tazobactam S F Susceptible [facility] URINE CULTURE - [facility] Trimethoprim/Sulfa R F Resistant [facility] Urine Cultureon 07-22-2024 Bacteria identified Cx Nom (U) ORGANISM: Escherichia coli (O:ESCCOL) [place] Count >100,000 Aerobic SYLVIA Charge (NMIC56) - SUSCEPTIBILITY ORGANISM: O:ESCCOL ANTIBIOTIC INTERPRETATION SYLVIA Amikacin S <16 Amoxacillin/K Clavulanate S <8 Ampicillin S <8 Ampicillin/Sulbactam S <4 Aztreonam S <4 Cefazolin S <2 Cefepime S <2 Ceftazidime S <1 Ceftazidime/Avibactam S <4 Ceftolozane/Tazobactam S <2 Ceftriaxone S <1 Cefuroxime S <4 Ciprofloxacin S <0.25 Ertapenem S <0.5 Gentamicin S <2 Levofloxacin S <0.5 Meropenem S <1 Meropenem/Vaborbactam S <2 Nitrofurantoin S <32 Piperacillin/Tazobactam S <8 Tetracycline S <4 Tigecycline S <2 Tobramycin S <2 Trimethoprim/Sulfamethox azole R >2 S = SUSCEPTIBLE I = INTERMEDIATE R = RESISTANT BLANK = DATA NOT AVAILABLE, OR DRUG NOT ADVISABLE OR TESTED R* = RESISTANCE DUE TO EXTENDED SPECTRUM BETA-LACTAMASES ESBL = EXTENDED SPECTRUM BETA-LACTAMASE TFG = THYMIDINE-DEPENDENT STRAIN JOSE = BETA-LACTAMASE POSITIVE IB = INDUCIBLE BETA-LACTAMASE. APPEARS IN PLACE OF 'S' WITH SPECIES KNOWN TO POSSESS INDUCIBLE BETA-LACTAMASES. POTENTIALLY THEY MAY BECOME RESISTANT TO ALL B-LACTAM DRUGS. PERFORMED BY: [place] [address] PATHOLOGIST RVDA MASTER CERTIFIED RV TECHNICIAN JUANA CLIFFORD M.D. Normal [facility] Comment on above: Performed By: #### C UU #### [address] Orders Onlyon 07-21-2024 Orders Only [id number] Lluvia Moreno 1940 F Date Provider Department [place] 07/21/2024 [facility] CARD [facility] Family History Problem Relation Age of Onset Colon cancer Father Coronary artery disease Brother Hypertension Brother Kidney cancer Brother Family Status - Relation Status Age at Father Brother Normal [facility] BASIC METABOLIC PANELon 05-18 Calcium [Mass/Vol] 8.9 mg/dL Normal 8.6-10.4 [facility] Comment on above: Performed By: #### 6 399, 16616, 645, 1350 #### [facility] [place] [address] Casting House Worker: Robbie Garnica MD Chloride [Moles/Vol] 108 mmol/L Normal 98-110 [facility] Comment on above: Performed By: #### 6 399, 19039, 498, 5650 #### [facility] [place] [address] Casting House Worker: Robbie Garnica MD CO2 [Moles/Vol] 26 mmol/L Normal 20-32 [facility] Comment on above: Performed By: #### 6 399, 26450, 496, 7600 #### [facility] [place] [address] Casting House Worker: Robbie Garnica MD Creatinine [Mass/Vol] 1.15 mg/dL High 0.60-0.95 [facility] Comment on above: Performed By: #### 6 399, 59095, 496, 7600 #### [facility] [place] [address] Casting House Worker: Robbie Garnica MD GFR/1.73 sq M.predicted among non-blacks MDRD (S/P/Bld) [Vol rate/Area] 48 mL/min/{1.73_m2} Low > OR = 60 [facility] Comment on above: Performed By: #### 6 399, 05117, 496, 7600 #### [facility] [place] [address] Casting House Worker: Robbie Garnica MD Glucose [Mass/Vol] 96 mg/dL Normal 65-99 [facility] Comment on above: Result Comment: Fasting reference interval Performed By: #### 6 399, 36609, 496, 7600 #### [facility] [place] [address] Casting House Worker: Robbie Garnica MD Potassium [Moles/Vol] 5.1 mmol/L Normal 3.5-5.3 [facility] Comment on above: Performed By: #### 6 399, 61632, 496, 7600 #### [facility] [place] [address] Casting House Worker: Robbie Garnica MD Sodium [Moles/Vol] 142 mmol/L Normal 135-146 [facility] Comment on above: Performed By: #### 6 399, 25647, 496, 7600 #### [facility] of [place] [address] Casting House Worker: Robbie Garnica MD Urea nitrogen [Mass/Vol] 33 mg/dL High 7-25 [facility] Comment on above: Performed By: #### 6 399, 67377, 496, 7600 #### [facility] of [place] [address] Casting House Worker: Robbie Garnica MD Urea nitrogen/Creatinin e [Mass ratio] 29 mg/mg High 08-07 [facility] Comment on above: Performed By: #### 6 399, 82173, 496, 7600 #### [facility] of [place] [address] Casting House Worker: Robbie Garnica MD CBC (INCLUDES DIFF/PLT)on Basophils (Bld) [#/Vol] 0.039 10*3/uL Normal 0-200 [facility] Comment on above: Performed By: #### 6 399, 84821, 496, 7600 #### [facility] of [place] [address] Casting House Worker: Robbie Garnica MD Basophils/100 WBC (Bld) 0.6 % Normal [facility] Comment on above: Performed By: #### 6 399, 92396, 496, 7600 #### [facility] [place] [address] Casting House Worker: Robbie Garnica MD Eosinophils (Bld) [#/Vol] 0.241 10*3/uL Normal 15-500 [facility] Comment on above: Performed By: #### 6 399, 67360, 496, 7600 #### [facility] [place] [address] Casting House Worker: Robbie Garnica MD Eosinophils/100 WBC (Bld) 3.7 % Normal [facility] Comment on above: Performed By: #### 6 399, 93522, 496, 7600 #### [facility] of [place] [address] Casting House Worker: Robbie Garnica MD Erythrocyte distribution width (RBC) [Ratio] 12.5 % Normal 11.0-15.0 [facility] Comment on above: Performed By: #### 6 399, 24950, 496, 7600 #### [facility] of [place] [address] Casting House Worker: Robbie Garnica MD Hematocrit (Bld) [Volume fraction] 38.9 % Normal 35.0-45.0 [facility] Comment on above: Performed By: #### 6 399, 43145, 496, 7600 #### [facility] of [place] [address] Casting House Worker: Robbie Garnica MD Hemoglobin (Bld) [Mass/Vol] 12.6 g/dL Normal 11.7-15.5 [facility] Comment on above: Performed By: #### 6 399, 57235, 496, 7600 #### [facility] of [place] [address] Casting House Worker: Robbie Garnica MD Lymphocytes (Bld) [#/Vol] 1.053 10*3/uL Normal 850-3900 [facility] Comment on above: Performed By: #### 6 399, 49206, 496, 7600 #### [facility] of [place] [address] Casting House Worker: Robbie Garnica MD Lymphocytes/100 WBC (Bld) 16.2 % Normal [facility] Comment on above: Performed By: #### 6 399, 43826, 496, 7600 #### [facility] of [place] [address] Casting House Worker: Robbie Garnica MD MCH (RBC) [Entitic mass] 30.4 pg Normal 27.0-33.0 [facility] Comment on above: Performed By: #### 6 399, 38208, 496, 7600 #### [facility] of [place] [address] Casting House Worker: Robbie Garnica MD MCHC (RBC) [Mass/Vol] 32.4 [...] clinical condition. Performed By: #### 6 399, 83226, 496, 7600 #### [facility] of [address], [address] [place] [address] Casting House Worker: oRbbie Garnica MD MCV (RBC) [Entitic vol] 93.7 fL Normal 80.0-100.0 [facility] Comment on above: Performed By: #### 6 399, 82426, 496, 7600 #### [facility] of [place] [address] Casting House Worker: Robbie Garnica MD Monocytes (Bld) [#/Vol] 0.475 10*3/uL Normal 200-950 [facility] Comment on above: Performed By: #### 6 399, 36682, 496, 7600 #### [facility] of [address], [address] [place] [address] Casting House Worker: Robbie Garnica MD Monocytes/100 WBC (Bld) 7.3 % Normal [facility] Comment on above: Performed By: #### 6 399, 04339, 496, 7600 #### [facility] of [place] [address] Casting House Worker: Robbie Garnica MD Neutrophils (Bld) [#/Vol] 4.693 10*3/uL Normal 5271-0891 [facility] Comment on above: Performed By: #### 6 399, 56631, 496, 7600 #### [facility] of [place] [address] Casting House Worker: Robbie Garnica MD Neutrophils/100 WBC (Bld) 72.2 % Normal [facility] Comment on above: Performed By: #### 6 399, 77626, 496, 7600 #### [facility] of [place] [address] Casting House Worker: Robbei Garnica MD Platelet mean volume (Bld) [Entitic vol] 11.4 fL Normal 7.5-12.5 [facility] Comment on above: Performed By: #### 6 399, 17174, 496, 7600 #### [facility] [address], [address] [place] [address] Casting House Worker: Robbie Garnica MD Platelets (Bld) [#/Vol] 186 10*3/uL Normal 140-400 [facility] Comment on above: Performed By: #### 6 399, 81784, 496, 7600 #### [facility] [place] [address] Casting House Worker: Robbie Garnica MD RBC (Bld) [#/Vol] 4.15 10*6/uL Normal 3.80-5.10 [facility] Comment on above: Performed By: #### 6 399, 55411, 496, 7600 #### [facility] [address], [address] [place] [address] Casting House Worker: Robbie Garnica MD WBC (Bld) [#/Vol] 6.5 10*3/uL Normal 3.8-10.8 [facility] Comment on above: Performed By: #### 6 399, 01389, 496, 7600 #### [facility] [place] [address] Casting House Worker: Robbie Garnica MD HEMOGLOBIN A1con 06-07-2024 HbA1c [...] for children. Performed By: #### 6 399, 56245, 496, 7600 #### [facility] [address], [address] [place] [address] Casting House Worker: Robbie Garnica MD LIPID PANEL, [facility] 05-18 Cholesterol [Mass/Vol] 118 mg/dL Normal <200 [facility] Comment on above: Order Comment: FASTI NG:YES FASTING: YES Performed By: #### 6 399, 92510, 496, 7600 #### [facility] [address], [address] [place] [address] Casting House Worker: Robbie Garnica MD Cholesterol in HDL [Mass/Vol] 54 mg/dL Normal > OR = 50 [facility] Comment on above: Order Comment: FASTI NG:YES FASTING: YES Performed By: #### 6 399, 42632, 496, 7600 #### [facility] [address], [address] [place] [address] Casting House Worker: Robbie Garnica MD Cholesterol in LDL [Mass/Vol] [...] LDL-C. Damion HELTON et al. CONSUELO. 2013;310(19): 0386-4092 (http://education.RACTIV.[employer]/faq/HDH128) Performed By: #### 6 399, 71662, 496, 7600 #### [facility] [address], [address] [place] [address] Casting House Worker: Robbie Garnica MD Cholesterol.total/ Cholesterol in HDL [Mass ratio] 2.2 {ratio} Normal <5.0 [facility] Comment on above: Order Comment: FASTI NG:YES FASTING: YES Performed By: #### 6 399, 98930, 496, 7600 #### [facility] [address], [address] [place] [address] Casting House Worker: Robbie Garnica MD NON HDL CHOLESTEROL 64 mg/dL (calc) Normal <130 [facility] Comment on above: Order Comment: FASTI NG:YES FASTING: YES Result Comment: For patients with diabetes plus 1 major ASCVD risk factor, treating to a non-HDL-C goal of <100 mg/dL (LDL-C of <70 mg/dL) is considered a therapeutic option. Performed By: #### 6 399, 55269, 496, 7600 #### [facility] [address], [address] [place] [address] Casting House Worker: Robbie Garnica MD Triglyceride [Mass/Vol] 66 mg/dL Normal <150 [facility] Comment on above: Order Comment: FASTI NG:YES FASTING: YES Performed By: #### 6 399, 23445, 496, 7600 #### [facility] [address], [address] [place] [address] Casting House Worker: Robbie Garnica MD VITAMIN D,25-OH,TOTAL,IAon 0 06-07-2024 [...] D, (D2,D3), LC/MS/MS is recommended: order code 14363 (patients >2yrs). See Note 1 Note 1 For additional information, please refer to http://education.RACTIV.[employer]/faq/YWO871 (This link is being provided for informational/ educational purposes only.) Performed By: #### 6 399, 71096, 496, 7600 #### [facility] [address], [address] [place] [address] Casting House Worker: Robbie Garnica MD ALL T3 FREEon 05-23-2024 Free T3 [Mass/Vol] 2.72 pg/mL 2.18 - 3. 98 pg/mL [facility] ALL THYROID STIM HORMONEon 0 05-23-2024 Interpretation and review of laboratory results Abnormal [facility] TSH Qn 4.74 m[IU]/L High [facility] ALL THYROXINE (T4) FREEon Free T4 [Mass/Vol] 0.98 ng/dL 0.76 - 1. 46 ng/dL [facility] No Panel Informationon 05-[address] [facility] 36on 01-26-2024 36 Spoke with patient a nd made her aware to start taking full tablet of spironolactone starting tomorrow per Dr. Sanchez. Advised her to still cut lisinopril tablet in half. She will continue to track BP's and call us with updates. Patient verbalized understanding. [facility] 36 Patient called to marcello marquez you aware that since decreasing spironolactone and lisinopril yesterday her BP has been: 147/92 160/108 172/118 I told her to take the other half tablet of spironolactone right now. Any other recommendations? Please advise. Thanks [facility] Office Visiton 01-25-2024 Follow-up visit [id number] Lluvia Moreno 1940 F Date Provider Department Center 01/25/2024 [id number] SANCHEZ [facility] Family History Problem Relation Age of Onset Colon cancer Father Coronary artery disease Brother Hypertension Brother Kidney cancer Brother Family Status - Relation Status Age at Father Brother Level of Service:86204 [facility] OFFICE/OUTPATIENT ESTABLISHED MOD MDM 30 MIN Reason for Visit and Comments: Atrial Fibrillation [80] - Had thyroid function last month. 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 Pacemaker Check [337] - Per device rep, all looks good, no events . [facility] ALL THYROXINE (T4) FREEon Free T4 [Mass/Vol] 1.02 ng/dL 0.76 - 1. 46 ng/dL [facility] FREE T3on 05-14-2022 FREE T3 2.54 pg/mlL Normal 2.18-3.98 [facility] Comment on above: Performed By: #### F T3, TSH #### [facility] [place] [facility] [address] [address] [address] Hugo Yang FREE T4on 05-14-2022 Free T4 [Mass/Vol] 1.09 ng/dL Normal 0.76-1.46 [facility] Comment on above: Performed By: #### F T4 #### [facility] [address] [address] [address] Hugo Yang TSHon 05-14-2022 TSH 3.015 uIU/mL Normal 0.358-3.740 [facility] Comment on above: Performed By: #### F T3, TSH #### [facility] [place] [facility] [address] [place] [address] HEAD WO CONon 03-19-2022 CT [...] by: JOEL ANDINO Date: 2022-03-19 10:33 Normal [facility] XR DEXA BONE DENSITYon 03-19 XR DEXA [...] by: JOEL ANDINO Date: 2022-03-19 11:11 Normal [facility] ECHOCARDIO M/2D COMPLETEon 1 02-22-2021 ECHOCARDIO M/2D COMPLETE Patient: LLUVIA MORENO Exam Date: 12/23/2021 : 1940 Gender:F Ordering : SHELDON GOTTLIEB [facility] Admission #: [id number] Family : DR OLE YANG M.D. Order #: [id number] CLICK HERE TO VIEW EXAM ECHOCARDIOGRAM REPORT [...] Lucas M.D. on 12/24/2021 at 15:56 Normal [facility] FREE T3on 11-25-2021 FREE T3 1.97 pg/mlL Critically low 2.18-3.98 [facility] Comment on above: Performed By: #### F T3, TSH #### [facility] [place] [facility] [address] [place] [address] Dr. Hugo Yang FREE T4on 11-25-2021 Free T4 [Mass/Vol] 1.00 ng/dL Normal 0.76-1.46 [facility] Comment on above: Performed By: #### F T3, TSH #### [facility] [place] [facility] [address] [address] [address] Hugo Yang LIVER PROFILEon 11-25-2021 Albumin [Mass/Vol] 3.9 g/dL Normal 3.4-5.0 [facility] Comment on above: Performed By: #### F T3, TSH #### [facility] [place] [facility] [address] [place] [address] Dr. Hugo Yang Albumin/Globulin [Mass ratio] 1.1 {ratio} Normal [facility] Comment on above: Performed By: #### F T3, TSH #### [facility] [address] [place] [address] Dr. Hugo Yang ALP [Catalytic activity/Vol] 94 U/L Normal 46-116 [facility] Comment on above: Performed By: #### F T3, TSH #### [facility] [place] [facility] [address] [place], [place] [id number] Dr. Hugo Yang ALT [Catalytic activity/Vol] 41 U/L Normal 14-59 [facility] Comment on above: Performed By: #### F T3, TSH #### [facility] [place] [facility] [address] [address] [address] Hugo Yang AST [Catalytic activity/Vol] 25 U/L Normal 15-37 [facility] Comment on above: Performed By: #### F T3, TSH #### [facility] [place] [facility] [address] [address] [address] Hugo Yang BILI, CONJUGATED 0.2 mg/dL Normal 0.0-0.2 [facility] Comment on above: Performed By: #### F T3, TSH #### [facility] [place] [facility] [address] [place] [address] Dr. Hugo Yang Bilirubin [Mass/Vol] 0.8 mg/dL Normal 0.2-1.0 [facility] Comment on above: Performed By: #### F T3, TSH #### [facility] [place] [facility] [address] [place] [address] Dr. Hugo Yang Globulin (S) [Mass/Vol] 3.5 g/dL Normal [facility] Comment on above: Performed By: #### F T3, TSH #### [facility] [place] [facility] [address] [place] [address] Dr. Hugo Yang Protein [Mass/Vol] 7.4 g/dL Normal 6.4-8.2 [facility] Comment on above: Performed By: #### F T3, TSH #### [facility] [place] [facility] [address] [place] [address] Dr. Hugo Yang TSHon 11-25-2021 TSH 2.892 uIU/mL Normal 0.358-3.740 [facility] Comment on above: Performed By: #### F T3, TSH #### [facility] [place] [facility] [address] [place] [address] Dr. Hugo Yang US PIPER DOP LEG [...] JOEL ANDINO Date: 2021-09-04 12:18 Normal [facility] Cardiovascular Lab Reporton 08-21-2021 Cardiovascular Lab Report [facility] [place] [facility] MR #: [id number] Physician: Keanu Islas MD Department of Service Date: 08/21/2021 Medicine Birthdate: 1940 Division of Room #: CC Cardiology Adult Cardiovascular Services [facility] [address] [facility] [place] [address] Cardiovascular Laboratory Report TBIV-UPGRADE PROCEDURE NOTE DATE OF PROCEDURE: 08/21/2021 PERFORMING PHYSICIAN: Dr. Kenau Islas CONSENT: Patient LOCATION: EP Lab PROCEDURE PERFORMED: 1. Implantation of Biventricular ICD ([employer]). 2. Explantation of previously implanted pacemaker generator ([employer]). 3. RV pacing lead and extraction. [...] was then removed and venogram was performed. Jay catheter was advanced and venogram was performed. This revealed a good posterolateral vein, but other than that, an anterior vein was noted, but no significant other branches were seen. After this, a 0.014 wire was passed through the Jay-Sarah catheter and traversed into the posterolateral vein. However, the wire was short enough and we could not get a good grasp at the end. So, thereafter, the Jay-Sarah catheter was removed and 90-degree inner cannula was used to access the vein. A longer 0.014 wire tracked into the vein. Over this, a Pulsar Acuity straight lead was advanced and placed [...] The inner cannulas were split and the [place] sheath was slit and the lead secured [...] t (more content not included)... Normal [facility] [place] [facility] Covid-19 PCR ([facility])on SARS-CoV-2 (COVID-19) RNA SONA+probe Ql (Unsp spec) Not detected Normal NOT DETECTED The [facility] Comment on above: Result Comment: When diagnostic [...] for this test is supported by the [employer] of [employer] and Human Service's declaration that [...] used). Performed By: #### B MP #### [facility] [place] [facility] [address] [place] [address] [id number] [address] Hugo Yang HEMOGRAM AND PLATELon 2021 Hematocrit (Bld) [Volume fraction] 43.7 % Normal 36.0-48.0 [facility] Comment on above: Performed By: #### C BC #### [facility] [address] [address] [address] Hugo Yang Hemoglobin (Bld) [Mass/Vol] 14.2 g/dL Normal 12.0-16.0 [facility] Comment on above: Performed By: #### C BC #### [facility] [place] [facility] [address] [place] [address] Dr. Hugo Yang MCH (RBC) [Entitic mass] 31.0 pg Normal 26.7-34.0 [facility] Comment on above: Performed By: #### C BC #### [facility] [place] [facility] [address] [place] [address] Dr. Hugo Yang MCHC (RBC) [Mass/Vol] 32.5 g/dL Normal 29.9-35.2 [facility] Comment on above: Performed By: #### C BC #### [facility] [place] [facility] [address] [place] [address] Dr. Hugo Yang MCV (RBC) [Entitic vol] 95.4 fL Normal 81.0-99.0 [facility] Comment on above: Performed By: #### C BC #### [facility] [place] [facility] [address] [place] [address] Dr. Hugo Yang PLT 161 103/ul Normal 150-450 [facility] Comment on above: Performed By: #### C BC #### [facility] [place] [facility] [address] [place] [address] Dr. Hugo Yang RBC 4.58 106/ul Normal 4.20-5.40 [facility] Comment on above: Performed By: #### C BC #### [facility] [address] [place] [address] Dr. Hugo Yang WBC 6.9 103/ul Normal 4.0-11.0 [facility] Comment on above: Performed By: #### C BC #### [facility] [address] [place] [address] Dr. Hugo Yang PROF CHEM 8 (BAS METB)on Anion gap [Moles/Vol] 11.5 mmol/L Normal [facility] Comment on above: Performed By: #### B MP #### [facility] [place] [facility] [address] [address] [address] Hugo Yang Calcium [Mass/Vol] 9.6 mg/dL Normal 8.5-10.1 [facility] Comment on above: Performed By: #### B MP #### [facility] [address] [address] [address] Hugo Yang Chloride [Moles/Vol] 104 mmol/L Normal 98-107 [facility] Comment on above: Performed By: #### B MP #### [facility] [place] [facility] [address] [address] [address] Hugo Yang CO2 [Moles/Vol] 30.6 mmol/L Normal 21.0-32.0 [facility] Comment on above: Performed By: #### B MP #### [facility] [place] [facility] [address] [place] [address] Dr. Hugo Yang Creatinine [Mass/Vol] 1.24 mg/dL Critically high 0.55-1.02 [facility] Comment on above: Performed By: #### B MP #### [facility] [place] [facility] [address] [place] [address] Dr. Hugo Yang EGFR-AF PALAUAN 51 mL/min/1.73m2 Critically low >=60 [facility] Comment on above: Performed By: #### B MP #### [facility] [place] [facility] [address] [place] [address] Dr. Hugo Yang EGFR-NON AF PALAUAN 42 mL/min/1.73m2 Critically low >=60 [facility] Comment on above: Performed By: #### B MP #### [facility] [place] [facility] [address] [place] [address] Dr. Hugo Yang Glucose [Mass/Vol] 111 mg/dL Critically high 74-106 [facility] Comment on above: Performed By: #### B MP #### [facility] [place] [facility] [address] [address] [address] Hugo Yang Potassium [Moles/Vol] 5.1 mmol/L Normal 3.5-5.1 [facility] Comment on above: Performed By: #### B MP #### [facility] [place] [facility] [address] [address] [address] Hugo Yang Sodium [Moles/Vol] 141 mmol/L Normal 136-145 [facility] Comment on above: Performed By: #### B MP #### [facility] [place] [facility] [address] [address] [address] Hugo Yang Urea nitrogen [Mass/Vol] 31.0 mg/dL Critically high 7.0-18.0 [facility] Comment on above: Performed By: #### B MP #### [facility] [place] [facility] [address] [place] [address] Dr. Hugo Yang Urea nitrogen/Creatinin e [Mass ratio] 25.0 mg/mg Normal [facility] Comment on above: Performed By: #### B MP #### [facility] [place] [facility] [address] [place] [address] Dr. Hugo Yang BNPon 07-30-2021 Natriuretic peptide B (Bld) [Mass/Vol] 1994.0 pg/mL Critically high <=1,800.0 [facility] Comment on above: Performed By: #### C BC #### [facility] [place] [facility] [address] [place] [address] Dr. Hugo Yang PROF CHEM 8 (BAS METB)on Anion gap [Moles/Vol] 11.3 mmol/L Normal [facility] Comment on above: Performed By: #### C BC #### [facility] [place] [facility] [address] [place] [address] Dr. Hugo Yang Calcium [Mass/Vol] 9.7 mg/dL Normal 8.5-10.1 [facility] Comment on above: Performed By: #### C BC #### [facility] [place] [facility] [address] [place] [address] Dr. Hugo Yang Chloride [Moles/Vol] 104 mmol/L Normal 98-107 [facility] Comment on above: Performed By: #### C BC #### [facility] [place] [facility] [address] [place] [address] Dr. Hugo Yang CO2 [Moles/Vol] 29.6 mmol/L Normal 21.0-32.0 [facility] Comment on above: Performed By: #### C BC #### [facility] [place] [facility] [address] [address] [address] Hugo Yang Creatinine [Mass/Vol] 1.28 mg/dL Critically high 0.55-1.02 [facility] Comment on above: Performed By: #### C BC #### [facility] [place] [facility] [address] [address] [address] Hugo Yang EGFR-AF PALAUAN 49 mL/min/1.73m2 Critically low >=60 [facility] Comment on above: Performed By: #### C BC #### [facility] [place] [facility] [address] [address] [address] Hugo Yang EGFR-NON AF PALAUAN 40 mL/min/1.73m2 Critically low >=60 [facility] Comment on above: Performed By: #### C BC #### [facility] [place] [facility] [address] [address] [address] Hugo Yang Glucose [Mass/Vol] 119 mg/dL Critically high 74-106 [facility] Comment on above: Performed By: #### C BC #### [facility] [place] [facility] [address] [address] [address] Hugo Yang Potassium [Moles/Vol] 4.9 mmol/L Normal 3.5-5.1 [facility] Comment on above: Performed By: #### C BC #### [facility] [place] [facility] [address] [address] [address] Hugo Yang Sodium [Moles/Vol] 140 mmol/L Normal 136-145 [facility] Comment on above: Performed By: #### C BC #### [facility] [place] [facility] [address] [address] [address] Hugo Yang Urea nitrogen [Mass/Vol] 30.0 mg/dL Critically high 7.0-18.0 [facility] Comment on above: Performed By: #### C BC #### [facility] [place] [facility] [address] [address] [address] Hugo Yang Urea nitrogen/Creatinin e [Mass ratio] 23.4 mg/mg Normal [facility] Comment on above: Performed By: #### C BC #### [facility] [place] [facility] [address] [address] [address] Hugo Yang FREE T3on 06-28-2021 FREE T3 2.64 pg/mlL Normal 2.18-3.98 [facility] Comment on above: Performed By: #### F T3, TSH #### [facility] [place] [facility] [address] [place] [address] Dr. Hugo Yang FREE T4on 06-28-2021 Free T4 [Mass/Vol] 1.19 ng/dL Normal 0.76-1.46 [facility] Comment on above: Performed By: #### B MP #### [facility] [place] [facility] [address] [address] [address] Hugo Yang LIVER PROFILEon 06-28-2021 Albumin [Mass/Vol] 3.8 g/dL Normal 3.4-5.0 [facility] Comment on above: Performed By: #### F T3, TSH #### [facility] [place] [facility] [address] [place] [address] Dr. Hugo Yang Albumin/Globulin [Mass ratio] 1.2 {ratio} Normal [facility] Comment on above: Performed By: #### F T3, TSH #### [facility] [place] [facility] [address] [place] [address] Dr. Hugo Yang ALP [Catalytic activity/Vol] 88 U/L Normal 46-116 [facility] Comment on above: Performed By: #### F T3, TSH #### [facility] [place] [facility] [address] [place] [address] Dr. Hugo Yang ALT [Catalytic activity/Vol] 54 U/L Normal 14-59 [facility] Comment on above: Performed By: #### F T3, TSH #### [facility] [place] [facility] [address] [place] [address] Dr. Hugo Yang AST [Catalytic activity/Vol] 36 U/L Normal 15-37 [facility] Comment on above: Performed By: #### F T3, TSH #### [facility] [place] [facility] [address] [place] [address] Dr. Hugo Yang BILI, CONJUGATED 0.3 mg/dL Critically high 0.0-0.2 [facility] Comment on above: Performed By: #### F T3, TSH #### [facility] [place] [facility] [address] [place] [address] Dr. Hugo Yang Bilirubin [Mass/Vol] 0.9 mg/dL Normal 0.2-1.0 [facility] Comment on above: Performed By: #### F T3, TSH #### [facility] [place] [facility] [address] [place] [address] Dr. Hugo Yang Globulin (S) [Mass/Vol] 3.3 g/dL Normal [facility] Comment on above: Performed By: #### F T3, TSH #### [facility] [place] [facility] [address] [place] [address] Dr. Hugo Yang Protein [Mass/Vol] 7.1 g/dL Normal 6.4-8.2 [facility] Comment on above: Performed By: #### F T3, TSH #### [facility] [place] [facility] [address] [place] [address] Dr. Hugo Yang PROF CHEM 8 (BAS METB)on Anion gap [Moles/Vol] 13.6 mmol/L Normal [facility] Comment on above: Performed By: #### B MP #### [facility] [place] [facility] [address] [place] [address] Dr. Hugo Yang Calcium [Mass/Vol] 9.5 mg/dL Normal 8.5-10.1 [facility] Comment on above: Performed By: #### B MP #### [facility] [place] [facility] [address] [place] [address] Dr. Hugo Yang Chloride [Moles/Vol] 105 mmol/L Normal 98-107 [facility] Comment on above: Performed By: #### B MP #### [facility] [place] [facility] [address] [place] [address] Dr. Hugo Yang CO2 [Moles/Vol] 28.5 mmol/L Normal 21.0-32.0 [facility] Comment on above: Performed By: #### B MP #### [facility] [place] [facility] [address] [place] [address] Dr. Hugo Yang Creatinine [Mass/Vol] 1.05 mg/dL Critically high 0.55-1.02 [facility] Comment on above: Performed By: #### B MP #### [facility] [place] [facility] [address] [address] [address] Hugo Yang EGFR-AF PALAUAN >60 Normal >=60 [facility] Comment on above: Performed By: #### B MP #### [facility] [place] [facility] [address] [address] [address] Hugo Yang EGFR-NON AF PALAUAN 51 mL/min/1.73m2 Critically low >=60 [facility] Comment on above: Performed By: #### B MP #### [facility] [place] [facility] [address] [address] [address] Hugo Yang Glucose [Mass/Vol] 113 mg/dL Critically high 74-106 [facility] Comment on above: Performed By: #### B MP #### [facility] [place] [facility] [address] [address] [address] Hugo Yang Potassium [Moles/Vol] 5.1 mmol/L Normal 3.5-5.1 [facility] Comment on above: Performed By: #### B MP #### [facility] [place] [facility] [address] [place] [address] Dr. Hugo Yang Sodium [Moles/Vol] 142 mmol/L Normal 136-145 [facility] Comment on above: Performed By: #### B MP #### [facility] [place] [facility] [address] [address] [address] Hugo Yang Urea nitrogen [Mass/Vol] 29.0 mg/dL Critically high 7.0-18.0 [facility] Comment on above: Performed By: #### B MP #### [facility] [place] [facility] [address] [address] [address] Hugo Yang Urea nitrogen/Creatinin e [Mass ratio] 27.6 mg/mg Normal [facility] Comment on above: Performed By: #### B MP #### [facility] [place] [facility] [address] [place] [address] Dr. Hugo Yang TSHon 06-28-2021 TSH 3.067 uIU/mL Normal 0.358-3.740 [facility] Comment on above: Performed By: #### F T3, TSH #### [facility] [place] [facility] [address] [place], [place] [address] Dr. Hugo Yang TSH RANGE SEE BELOW Normal [facility] Comment on above: Result Comment: <0.3 4 UIU/ml HYPERTHYROID 0.34-5.60 UIU/ml EUTHYROID >5.60 UIU/ml HYPOTHYROID Performed By: #### F T3, TSH #### [facility] [place] [facility] [address] [place], [place] [address] Dr. Hugo Yang Cardiovascular Lab Reporton 06-21-2021 Cardiovascular Lab Report [facility] MR #: [id number] Physician: Elizabeth Tejeda, Department of M.D. Medicine Service Date: 06/20/2021 Division of Birthdate: 1940 Cardiology Room #: [facility] [place] [address] Cardiovascular Laboratory Report FINAL IMPRESSIONS: 1. 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 2. Otherwise nonobstructive coronary arteries angiographically. 3. Moderately reduced global left ventricular systolic function by noninvasive imaging. 4. Normal right-sided heart pressures and wedge pressure. 5. Grae-cm-lxcksfqf systemic hypertension. 6. Mildly reduced cardiac output/cardiac [...] bilateral selective coronary angiography, placement of a 6-Australian MynxGrip closure device. METHODS: After risks, benefits, [...] femoral vein and artery was obtained. A 6-Australian 11 cm sheath was placed in each. [...] the procedure. All catheters were removed. A 6-Australian MynxGrip closure device was deployed per protocol [...] E (more content not included)... Normal [facility] BNPon 06-18-2021 Natriuretic peptide B (Bld) [Mass/Vol] 3442.0 pg/mL Critically high <=1,800.0 [facility] Comment on above: Result Comment: TEST REPEATED CRITICAL VALUE VERIFIED Performed By: #### L IPID, BNP, CMP #### [facility] [address] [place] [address] Dr. Hugo Yang CBC AUTO DIFFon 06-18-2021 BASO # 0.1 103/ul Normal 0.0-0.1 [facility] Comment on above: Performed By: #### C BC #### [facility] [address] [place] [address] Dr. Hugo Yang Basophils/100 WBC (Bld) 0.5 % Normal 0.2-2.0 [facility] Comment on above: Performed By: #### C BC #### [facility] [address] [place] [address] Dr. Hugo Yang EO # 0.3 103/ul Normal 0.0-0.7 [facility] Comment on above: Performed By: #### C BC #### [facility] [address] [place] [address] Dr. Hugo Yang Eosinophils/100 WBC (Bld) 2.3 % Normal 0.9-7.0 [facility] Comment on above: Performed By: #### C BC #### [facility] [address] [place] [address] Dr. Hugo Yang Erythrocyte distribution width (RBC) [Ratio] 14.5 % Normal 11.0-15.0 [facility] Comment on above: Performed By: #### C BC #### [facility] [address] [place] [address] Dr. Hugo Yang Hematocrit (Bld) [Volume fraction] 42.3 % Normal 36.0-48.0 [facility] Comment on above: Performed By: #### C BC #### [facility] [address] [place] [address] Dr. Hugo Yang Hemoglobin (Bld) [Mass/Vol] 13.5 g/dL Normal 12.0-16.0 [facility] Comment on above: Performed By: #### C BC #### [facility] [address] [place] [address] Dr. Hugo Yang IG # 0.05 10e3/ul Critically high 0.00-0.03 [facility] Comment on above: Performed By: #### C BC #### [facility] [address] [place] [address] Dr. Hugo Yang IG % 0.4 % Normal 0.0-0.5 [facility] Comment on above: Performed By: #### C BC #### [facility] [address] [place] [address] Dr. Hugo Yang LYMPH # 1.5 103/ul Normal 1.2-3.8 [facility] Comment on above: Performed By: #### C BC #### [facility] [address] [place] [address] Dr. Hugo Yang Lymphocytes/100 WBC (Bld) 12.9 % Critically low 20.5-60.0 [facility] Comment on above: Performed By: #### C BC #### [facility] [address] [place] [address] Dr. Hugo Yang MANUAL DIFF REQ NO Normal [facility] Comment on above: Performed By: #### C BC #### [facility] [address] [address] [address] Hugo Yang MCH (RBC) [Entitic mass] 30.4 pg Normal 26.7-34.0 [facility] Comment on above: Performed By: #### C BC #### [facility] [address] [address] [address] Hugo Yang MCHC (RBC) [Mass/Vol] 31.9 g/dL Normal 29.9-35.2 [facility] Comment on above: Performed By: #### C BC #### [facility] [address] [address] [address] Hugo Yang MCV (RBC) [Entitic vol] 95.3 fL Normal 81.0-99.0 [facility] Comment on above: Performed By: #### C BC #### [facility] [address] [place] [address] Dr. Hugo Yang MONO # 0.7 103/ul Normal 0.3-0.8 [facility] Comment on above: Performed By: #### C BC #### [facility] [address] [place] [address] Dr. Hugo Yang Monocytes/100 WBC (Bld) 6.2 % Normal 1.7-12.0 [facility] Comment on above: Performed By: #### C BC #### [facility] [address] [address] [address] Hugo Yang NEUT # 8.8 103/ul Critically high 1.4-6.5 [facility] Comment on above: Performed By: #### C BC #### [facility] [address] [address] [address] Hugo Yang Neutrophils/100 WBC (Bld) 77.7 % Critically high 43.0-75.0 [facility] Comment on above: Performed By: #### C BC #### [facility] [address] [place] [address] Dr. Hugo Yang Platelet mean volume (Bld) [Entitic vol] 10.4 fL Normal 9.5-13.5 [facility] Comment on above: Performed By: #### C BC #### [facility] [address] [address] [address] Hugo Yang PLT 199 103/ul Normal 150-450 [facility] Comment on above: Performed By: #### C BC #### [facility] [address] [place] [address] Dr. Hugo Yang RBC 4.44 106/ul Normal 4.20-5.40 [facility] Comment on above: Performed By: #### C BC #### [facility] [address] [place] [address] Dr. Hugo Yang WBC 11.3 103/ul Critically high 4.0-11.0 [facility] Comment on above: Performed By: #### C BC #### [facility] [address] [place] [address] Dr. Hugo Yang Covid-19 PCR ([facility])on SARS-CoV-2 (COVID-19) RNA SONA+probe Ql (Unsp spec) Not detected Normal NOT DETECTED [facility] Comment on above: Result Comment: This test is not yet approved or cleared by the [place] FDA. When there are no FDA-approved or cleared tests available, and other criteria are met, FDA can make tests available under an emergency access mechanism called an Emergency Use Authorization (EUA). The EUA for this test is supported by the [place] Agent of Health and Human Service's (HHS's) declaration [...] Performed By: #### F T3, TSH #### [facility] [address] [place] [address] Dr. Hugo Yang LIPID PROFILEon 06-18-2021 CHOL-HDL RATIO NORM SEE BELOW Normal [facility] Comment on above: Result Comment: 3.3 - 4.4 LOW RISK 4.4 - 7.1 AVERAGE RISK 7.1 - 11.0 MODERATE RISK >11.0 HIGH RISK Performed By: #### L IPID, BNP, CMP #### [facility] [address] [address] [address] Hugo Yang Cholesterol [Mass/Vol] 127 mg/dL Normal <=200 [facility] Comment on above: Performed By: #### L IPID, BNP, CMP #### [facility] [address] [address] [address] Hugo Yang Cholesterol in HDL [Mass/Vol] 60 mg/dL Normal 40-60 [facility] Comment on above: Performed By: #### L IPID, BNP, CMP #### [facility] [address] [place] [address] Dr. Hugo Yang Cholesterol in LDL [Mass/Vol] 47.4 mg/dL Normal [facility] Comment on above: Performed By: #### L IPID, BNP, CMP #### [facility] [address] [place] [address] Dr. Hugo Yang Cholesterol.total/ Cholesterol in HDL [Mass ratio] 2.1 {ratio} Normal [facility] Comment on above: Performed By: #### L IPID, BNP, CMP #### [facility] [address] [place] [address] Dr. Hugo Yang HDL NORMAL > or = 60 mg/dl - LO W CARDIOVASCULAR RISK <40 mg/dl - HIGH CARDIOVASCULAR RISK Normal [facility] Comment on above: Performed By: #### L IPID, BNP, CMP #### [facility] [address] [place] [address] Dr. Hugo Yang LDL CALC NORMAL SEE BELOW Normal [facility] Comment on above: Result Comment: <100 mg/dl OPTIMAL 100 - 129 mg/dl NEAR OR ABOVE OPTIMAL 130 - 159 mg/dl BORDERLINE HIGH 160 - 189 mg/dl HIGH >190 mg/dl VERY HIGH Performed By: #### L IPID, BNP, CMP #### [facility] [address] [address] [address] Hugo Yang Triglyceride [Mass/Vol] 98 mg/dL Normal <=150 [facility] Comment on above: Performed By: #### L IPID, BNP, CMP #### [facility] [address] [address] [address] Hugo Yang VLDL CALC 19.6 mg/dL Normal [facility] Comment on above: Performed By: #### L IPID, BNP, CMP #### [facility] [address] [address] [address] Hugo Yang PROF 14(COMP METB)on 022 Albumin [Mass/Vol] 4.0 g/dL Normal 3.4-5.0 [facility] Comment on above: Performed By: #### L IPID, BNP, CMP #### [facility] [address] [address] [address] Hugo Yang Albumin/Globulin [Mass ratio] 1.3 {ratio} Normal [facility] Comment on above: Performed By: #### L IPID, BNP, CMP #### [facility] [address] [address] [address] Hugo Yang ALP [Catalytic activity/Vol] 82 U/L Normal 46-116 [facility] Comment on above: Performed By: #### L IPID, BNP, CMP #### [facility] [address] [address] [address] Hugo Yang ALT [Catalytic activity/Vol] 52 U/L Normal 14-59 [facility] Comment on above: Performed By: #### L IPID, BNP, CMP #### [facility] [address] [address] [address] Hugo Yang Anion gap [Moles/Vol] 12.9 mmol/L Normal [facility] Comment on above: Performed By: #### L IPID, BNP, CMP #### [facility] [address] [address] [address] Hugo Yang AST [Catalytic activity/Vol] 40 U/L Critically high 15-37 [facility] Comment on above: Performed By: #### L IPID, BNP, CMP #### [facility] [address] [address] [address] Hugo Yang Bilirubin [Mass/Vol] 1.7 mg/dL Critically high 0.2-1.0 [facility] Comment on above: Performed By: #### L IPID, BNP, CMP #### [facility] [address] [place] [address] Dr. Hugo Yang Calcium [Mass/Vol] 9.2 mg/dL Normal 8.5-10.1 [facility] Comment on above: Performed By: #### L IPID, BNP, CMP #### [facility] [address] [place] [address] Dr. Hugo Yang Chloride [Moles/Vol] 103 mmol/L Normal 98-107 [facility] Comment on above: Performed By: #### L IPID, BNP, CMP #### [facility] [address] [place] [address] Dr. Hugo Yang CO2 [Moles/Vol] 28.9 mmol/L Normal 21.0-32.0 [facility] Comment on above: Performed By: #### L IPID, BNP, CMP #### [facility] [address] [place] [address] Dr. Hugo Yang Creatinine [Mass/Vol] 1.12 mg/dL Critically high 0.55-1.02 [facility] Comment on above: Performed By: #### L IPID, BNP, CMP #### [facility] [address] [place] [address] Dr. Hugo Yang EGFR-AF PALAUAN 57 mL/min/1.73m2 Critically low >=60 [facility] Comment on above: Performed By: #### L IPID, BNP, CMP #### [facility] [address] [place] [address] Dr. Hugo Yang EGFR-NON AF PALAUAN 47 mL/min/1.73m2 Critically low >=60 [facility] Comment on above: Performed By: #### L IPID, BNP, CMP #### [facility] [address] [address] [address] Hugo Yang Globulin (S) [Mass/Vol] 3.1 g/dL Normal [facility] Comment on above: Performed By: #### L IPID, BNP, CMP #### [facility] [address] [address] [address] Hugo Yang Glucose [Mass/Vol] 128 mg/dL Critically high 74-106 [facility] Comment on above: Performed By: #### L IPID, BNP, CMP #### [facility] [address] [address] [address] Hugo Yang Potassium [Moles/Vol] 4.8 mmol/L Normal 3.5-5.1 [facility] Comment on above: Performed By: #### L IPID, BNP, CMP #### [facility] [address] [place] [address] Dr. Hugo Yang Protein [Mass/Vol] 7.1 g/dL Normal 6.1-8.2 [facility] Comment on above: Performed By: #### L IPID, BNP, CMP #### [facility] [address] [address] [address] Hugo Yang Sodium [Moles/Vol] 140 mmol/L Normal 136-145 [facility] Comment on above: Performed By: #### L IPID, BNP, CMP #### [facility] [address] [address] [address] Hugo Yang Urea nitrogen [Mass/Vol] 23.0 mg/dL Critically high 7.0-18.0 [facility] Comment on above: Performed By: #### L IPID, BNP, CMP #### [facility] [address] [address] [address] Hugo Yang Urea nitrogen/Creatinin e [Mass ratio] 20.5 mg/mg Normal [facility] Comment on above: Performed By: #### L IPID, BNP, CMP #### [facility] [address] [address] [address] Hugo Yang ECHOCARDIO M/2D COMPLETEon 0 06-12-2021 ECHOCARDIO M/2D COMPLETE Patient: LLUVIA MORENO Exam Date: 06/12/2021 : 1940 Gender:F Ordering : SHELDONCHIQUITA GOTTLIEB Admission #: [id number] Family : DR SYLVESTERMESHA YANG Kvng Order #: [id number] CLICK HERE TO VIEW EXAM ECHOCARDIOGRAM REPORT [...] Area(A4C): 31.00 cm2 Left Atrium Systolic Volume(A2C): 086769 mm3 Left Atrium Systolic Volume(A4C): 749182 mm3 Mitral Valve MV E to A [...] M.D. on 06/12/2021 at 16:27 Normal [facility] CBC AUTO DIFFon 06-04-2021 BASO # 0.0 103/ul Normal 0.0-0.1 [facility] Comment on above: Performed By: #### C BC #### [facility] [address] [place] [address] Dr. Hugo Yang Basophils/100 WBC (Bld) 0.6 % Normal 0.2-2.0 [facility] Comment on above: Performed By: #### C BC #### [facility] [address] [place] [address] Dr. Hugo Yang EO # 0.2 103/ul Normal 0.0-0.7 [facility] Comment on above: Performed By: #### C BC #### [facility] [address] [place] [address] Dr. Hugo Yang Eosinophils/100 WBC (Bld) 3.0 % Normal 0.9-7.0 [facility] Comment on above: Performed By: #### C BC #### [facility] [address] [place] [address] Dr. Hugo Yang Erythrocyte distribution width (RBC) [Ratio] 13.7 % Normal 11.0-15.0 [facility] Comment on above: Performed By: #### C BC #### [facility] [address] [place] [address] Dr. Hugo Yang Hematocrit (Bld) [Volume fraction] 42.1 % Normal 36.0-48.0 [facility] Comment on above: Performed By: #### C BC #### [facility] [address] [place] [address] Dr. Hugo Yang Hemoglobin (Bld) [Mass/Vol] 13.3 g/dL Normal 12.0-16.0 [facility] Comment on above: Performed By: #### C BC #### [facility] [address] [place] [address] Dr. Hugo Yang IG # 0.02 10e3/ul Normal 0.00-0.03 [facility] Comment on above: Performed By: #### C BC #### [facility] [address] [place] [address] Dr. Hugo Yang IG % 0.3 % Normal 0.0-0.5 [facility] Comment on above: Performed By: #### C BC #### [facility] [address] [place] [address] Dr. Hugo Yang LYMPH # 1.9 103/ul Normal 1.2-3.8 [facility] Comment on above: Performed By: #### C BC #### [facility] [address] [place] [address] Dr. Hugo Yang Lymphocytes/100 WBC (Bld) 29.2 % Normal 20.5-60.0 [facility] Comment on above: Performed By: #### C BC #### [facility] [address] [place] [address] Dr. Hugo Yang MANUAL DIFF REQ NO Normal [facility] Comment on above: Performed By: #### C BC #### [facility] [address] [place] [address] Dr. Hugo Yang MCH (RBC) [Entitic mass] 30.4 pg Normal 26.7-34.0 [facility] Comment on above: Performed By: #### C BC #### [facility] [address] [place] [address] Dr. Hugo Yang MCHC (RBC) [Mass/Vol] 31.6 g/dL Normal 29.9-35.2 [facility] Comment on above: Performed By: #### C BC #### [facility] [address] [place] [address] Dr. Hugo Yang MCV (RBC) [Entitic vol] 96.3 fL Normal 81.0-99.0 [facility] Comment on above: Performed By: #### C BC #### [facility] [address] [place] [address] Dr. Hugo Yang MONO # 0.6 103/ul Normal 0.3-0.8 [facility] Comment on above: Performed By: #### C BC #### [facility] [address] [place] [address] Dr. Hugo Yang Monocytes/100 WBC (Bld) 8.5 % Normal 1.7-12.0 [facility] Comment on above: Performed By: #### C BC #### [facility] [address] [place] [address] Dr. Hugo Yang NEUT # 3.8 103/ul Normal 1.4-6.5 [facility] Comment on above: Performed By: #### C BC #### [facility] [address] [place] [address] Dr. Hugo Yang Neutrophils/100 WBC (Bld) 58.4 % Normal 43.0-75.0 [facility] Comment on above: Performed By: #### C BC #### [facility] [address] [address] [address] Hugo Yang Platelet mean volume (Bld) [Entitic vol] 10.9 fL Normal 9.5-13.5 [facility] Comment on above: Performed By: #### C BC #### [facility] [address] [address] [address] Hugo Yang PLT 163 103/ul Normal 150-450 [facility] Comment on above: Performed By: #### C BC #### [facility] [address] [address] [address] Hugo Yang RBC 4.37 106/ul Normal 4.20-5.40 [facility] Comment on above: Performed By: #### C BC #### [facility] [address] [place] [address] Dr. Hugo Yang WBC 6.6 103/ul Normal 4.0-11.0 [facility] Comment on above: Performed By: #### C BC #### [facility] [address] [place] [address] Dr. Hugo Yang PROF CHEM 8 (BAS METB)on Anion gap [Moles/Vol] 13.9 mmol/L Normal [facility] Comment on above: Performed By: #### F T3, TSH #### [facility] [address] [place] [address] Dr. Hugo Yang Calcium [Mass/Vol] 9.5 mg/dL Normal 8.5-10.1 [facility] Comment on above: Performed By: #### F T3, TSH #### [facility] [address] [address] [address] Hugo Yang Chloride [Moles/Vol] 105 mmol/L Normal 98-107 [facility] Comment on above: Performed By: #### F T3, TSH #### [facility] [address] [address] [address] Hugo Yang CO2 [Moles/Vol] 27.7 mmol/L Normal 22.0-30.0 [facility] Comment on above: Performed By: #### F T3, TSH #### [facility] [address] [address] [address] Hugo Yang Creatinine [Mass/Vol] 1.19 mg/dL Critically high 0.52-1.04 [facility] Comment on above: Performed By: #### F T3, TSH #### [facility] [address] [address] [address] Hugo Yang EGFR-AF PALAUAN 53 mL/min/1.73m2 Critically low >=60 [facility] Comment on above: Performed By: #### F T3, TSH #### [facility] [address] [address] [address] Hugo Yang EGFR-NON AF PALAUAN 44 mL/min/1.73m2 Critically low >=60 [facility] Comment on above: Performed By: #### F T3, TSH #### [facility] [address] [address] [address] Hugo Yang Glucose [Mass/Vol] 112 mg/dL Critically high 74-106 [facility] Comment on above: Performed By: #### F T3, TSH #### [facility] [address] [place] [address] Dr. Hugo Yang Potassium [Moles/Vol] 4.6 mmol/L Normal 3.4-5.0 [facility] Comment on above: Performed By: #### F T3, TSH #### [facility] [address] [address] [address] Hugo Yang Sodium [Moles/Vol] 142 mmol/L Normal 137-145 [facility] Comment on above: Performed By: #### F T3, TSH #### [facility] [address] [address] [address] Hugo Yang Urea nitrogen [Mass/Vol] 28.0 mg/dL Critically high 7.0-18.0 [facility] Comment on above: Performed By: #### F T3, TSH #### [facility] [place] [facility] [address] [address] [address] Hugo Yang Urea nitrogen/Creatinin e [Mass ratio] 23.5 mg/mg Normal [facility] Comment on above: Performed By: #### F T3, TSH #### [facility] [place] [facility] [address] [place], [place] [address] Dr. Hugo Yang TROPONIN, HIGH SENSITIVITYon 06-04-2021 HSTROP 27.1 pg/mL Normal 4.0-35.5 [facility] Comment on above: Result Comment: CUT- OFF POINTS HAVE BEEN ESTABLISHED BASED ON THE FOURTH UNIVERSAL DEFINITIONS OF MYOCARDIAL INFARCTION. THE UPPER REFERENCE LIMIT (URL) OF TROPONIN, DEFINED THE 99TH PERCENTILE OF cTnI DISTRIBUTION IN A REFERENCE POPULATION, HAS BEEN CONFIRMED THE DECISION THRESHOLD FOR MS DIAGNOSIS. Performed By: #### F T3, TSH #### [facility] [place] [facility] [address] [place], [place] [address] Dr. Hugo Yang XR CHEST 1 Von [...] JOEL ANDINO Date: 2021-06-04 11:09 Normal [facility] Cardiovascular Lab Reporton 12-28-2020 Cardiovascular Lab Report [facility] [place] [facility] MR #: [id number] Physician: Keanu Islas MD Department of Service Date: 12/28/2020 Medicine Birthdate: 1940 Division of Room #: CC Cardiology Adult Cardiovascular Services [address] [place] [address] Cardiovascular Laboratory Report AV NODE ABLATION PROCEDURE [...] prepped and draped. Under ultrasound guidance, an 8-Australian venous access was procured, and a short [...] Islas MD Date Trans: 12/28/2020 04:43 P/mmo [id number] cc: Ole Yang M.D. [address] [place] [id number] [place] [facility] [place] [facility] Cardiovascular Lab Reporton 11-19-2020 Cardiovascular Lab Report [facility] [place] [facility] Patient Name: [facility] MR #: [id number] Physician: Keanu Islas MD Department of Service Date: 11/19/2020 Medicine Birthdate: 1940 Division of Room #: Cardiology Adult Cardiovascular Services [place] [address] Cardiovascular Laboratory Report PACEMAKER IMPLANT PROCEDURE NOTE DATE OF PROCEDURE: 11/19/20 PERFORMING PHYSICIAN: Dr. Keanu Islas CONSENT: Patient LOCATION: EP Lab PROCEDURE PERFORMED: 1. Implantation of pacemaker ([employer]) 2. Ultrasound guided venous access INDICATIONS: [...] using modified seldinger technique using a 5 Australian micro-puncture needle on one occasion and 0.35 wire was placed. Local infiltration of 1% Lidocaine was performed, and an incision was created in the left upper chest. Dissection was then performed using cautery down to the fascial plane above the muscle. A small pocket was created for the device. 8 Australian Safesheath was placed over the wire. Then a His sheath was advanced over a glide wire into the right ventricle. The wire and dilator was then removed. An active fixation [place] [employer] pacing lead was then delivered through the His sheath to the right ventricle. I identified an area where pacing revealed a QRS of 120ms in unipolar configuration. After confirmation of lead position on orthogonal views (PATEL and TURKMEN) to confirm septal position, the screw was [...] immediate procedural complications were noted. Device info: [employer] Accolade MRI EL SR IS1 Model# L310 Serial# [id number] RV lead: Model# [id number] [id number] (59cms) Serial# [id number] Sensin.3mV Threshold: 0.6V@0.4ms Impedance: 655 Ohms POST [...] 11/19/2020 (more content not included)... Normal [facility] [place] [facility] Vital Signs Date Time Vital Sign Value Performing Clinician Facility 08-15-2024 14:30-0400 Body height 167.6 cm Ole Yang MD Work Phone: [facility] 08-15-2024 14:30-0400 Body mass index (BMI) [Ratio] 27.76 kg/m2 Ole Yang MD Work Phone: [facility] 08-15-2024 14:30-040 Body weight 78.02 kg Ole Yang MD Work Phone: [facility] 08-15-2024 14:30-0400 Diastolic blood pressure 78 mm[Hg] Ole Yang MD Work Phone: [facility] 08-15-2024 14:30-0400 Heart rate 70 /min Ole Yang MD Work Phone: [facility] 08-15-2024 14:30-0400 Respiratory rate 17 /min Ole Yang MD Work Phone: [facility] 08-15-2024 14:30-0400 SaO2% (BldA) [Mass fraction] 99 % Ole Yang MD Work Phone: [facility] 08-15-2024 14:30-0400 Systolic blood pressure 120 mm[Hg] Ole Yang MD Work Phone: [facility] 06-02-2024 09:47-0400 Body height 167.6 cm Dipti Hemmer PA Work Phone: [facility] 06-02-2024 09:47-0400 Body mass index (BMI) [Ratio] 28.47 kg/m2 Dipti Hemmer PA Work Phone: [facility] 06-02-2024 09:47-0400 Body temperature 99.19 [degF] Dipti Hemmer PA Work Phone: [facility] 06-02-2024 09:47-0400 Body weight 80.02 kg Dipti Hemmer PA Work Phone: [facility] 06-02-2024 09:47-0400 Diastolic blood pressure 64 mm[Hg] Dipti Hemmer PA Work Phone: [facility] 06-02-2024 09:47-0400 Heart rate 70 /min Dipti Hemmer PA Work Phone: [facility] 06-02-2024 09:47-0400 Respiratory rate 16 /min Dipti Hemmer PA Work Phone: [facility] 06-02-2024 09:47-0400 SaO2% (BldA) [Mass fraction] 99 % Dipti Hemmer PA Work Phone: [facility] 06-02-2024 09:47-0400 Systolic blood pressure 102 mm[Hg] Dipti Hemmer PA Work Phone: [facility] 06-01-2024 10:07-0400 Body height 170.2 cm Teri Martinez MD Work Phone: [facility] 06-01-2024 10:07-0400 Body mass index (BMI) [Ratio] 27.88 kg/m2 Teri Martinez MD Work Phone: [facility] 06-01-2024 10:07-0400 Body weight 80.74 kg Teri Martinez MD Work Phone: [facility] 06-01-2024 10:07-0400 Diastolic blood pressure 82 mm[Hg] Teri Martinez MD Work Phone: [facility] 06-01-2024 10:07-0400 Heart rate 70 /min Teri Martinez MD Work Phone: [facility] 06-01-2024 10:07-0400 Respiratory rate 16 /min Teri Martinez MD Work Phone: [facility] 06-01-2024 10:07-0400 SaO2% (BldA) [Mass fraction] 89 % Teri Martinez MD Work Phone: [facility] 06-01-2024 10:07-0400 Systolic blood pressure 142 mm[Hg] Teri Martinez MD Work Phone: [facility] 03-30-2024 09:57-0500 Body height 167.6 cm Ole Yang MD Work Phone: [facility] 03-30-2024 09:57-0500 Body mass index (BMI) [Ratio] 28.25 kg/m2 Ole Yang MD Work Phone: [facility] 03-30-2024 09:57-0500 Body weight 79.38 kg Ole Yang MD Work Phone: [facility] 03-30-2024 09:57-0500 Diastolic blood pressure 78 mm[Hg] Ole Yang MD Work Phone: [facility] 03-30-2024 09:57-0500 Heart rate 69 /min Ole Yang MD Work Phone: [facility] 03-30-2024 09:57-0500 SaO2% (BldA) [Mass fraction] 98 % Ole Yang MD Work Phone: [facility] 03-30-2024 09:57-0500 Systolic blood pressure 128 mm[Hg] Ole Yang MD Work Phone: [facility] 02-25-2024 10:03-0500 Body height 167.6 cm Dipti Hemmer PA Work Phone: [facility] 02-25-2024 10:03-0500 Body mass index (BMI) [Ratio] 28.89 kg/m2 Dipti Hemmer PA Work Phone: [facility] 02-25-2024 10:03-0500 Body weight 81.19 kg Dipti Hemmer PA Work Phone: [facility] 02-25-2024 10:03-0500 Diastolic blood pressure 66 mm[Hg] Dipti Hemmer PA Work Phone: [facility] 02-25-2024 10:03-0500 Heart rate 74 /min Dipti Hemmer PA Work Phone: [facility] 02-25-2024 10:03-0500 Respiratory rate 20 /min Dipti Hemmer PA Work Phone: [facility] 02-25-2024 10:03-0500 SaO2% (BldA) [Mass fraction] 99 % Dipti Hemmer PA Work Phone: [facility] 02-25-2024 10:03-0500 Systolic blood pressure 108 mm[Hg] Dipti Hemmer PA Work Phone: [facility] 12-02-2023 10:08-0400 Body height 167.6 cm Teri Martinez MD Work Phone: [facility] 12-02-2023 10:08-0400 Body mass index (BMI) [Ratio] 28.73 kg/m2 Teri Martinez MD Work Phone: [facility] 12-02-2023 10:08-0400 Body weight 80.74 kg Teri Martinez MD Work Phone: [facility] 12-02-2023 10:08-0400 Diastolic blood pressure 70 mm[Hg] Teri Martinez MD Work Phone: [facility] 12-02-2023 10:08-0400 Heart rate 87 /min Teri Martinez MD Work Phone: [facility] 12-02-2023 10:08-0400 Respiratory rate 18 /min Teri Martinez MD Work Phone: [facility] 12-02-2023 10:08-0400 Systolic blood pressure 102 mm[Hg] Teri Martinez MD Work Phone: [facility] 11-26-2023 09:56-0400 Body height 170.2 cm Dipti Hemmer PA Work Phone: [facility] 11-26-2023 09:56-0400 Body mass index (BMI) [Ratio] 27.82 kg/m2 Dipti Hemmer PA Work Phone: [facility] 11-26-2023 09:56-0400 Body weight 80.56 kg Dipti Hemmer PA Work Phone: [facility] 11-26-2023 09:56-0400 Diastolic blood pressure 74 mm[Hg] Dipti Hemmer PA Work Phone: [facility] Comment on above: home BP monitor 141/ 81 11-26-2023 09:56-0400 Heart rate 71 /min Dipti Hemmer PA Work Phone: [facility] 11-26-2023 09:56-0400 Respiratory rate 16 /min Dipti Hemmer PA Work Phone: [facility] 11-26-2023 09:56-0400 SaO2% (BldA) [Mass fraction] 99 % Dipti Hemmer PA Work Phone: [facility] 11-26-2023 09:56-0400 Systolic blood pressure 128 mm[Hg] Dipti Hemmer PA Work Phone: [facility] Comment on above: home BP monitor 141/ 81 02-11-2023 14:43-0500 Body height 170.2 cm Ole Yang MD Work Phone: [facility] 02-11-2023 14:43-0500 Body mass index (BMI) [Ratio] 26.94 kg/m2 Ole Yang MD Work Phone: [facility] 02-11-2023 14:43-0500 Body weight 78.02 kg Ole Yang MD Work Phone: [facility] 02-11-2023 14:43-0500 Diastolic blood pressure 70 mm[Hg] Ole Yang MD Work Phone: [facility] 02-11-2023 14:43-0500 Heart rate 76 /min Ole Yang MD Work Phone: 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 Start: 08-01-2024 ambulatory [facility] Start: 07-22-2024 End: 07-25-2024 Clinisync Result Encounter Generic External Data Provider [facility] External Department Unsolicited Start: 07-22-2024 End: 07-25-2024 Clinisync Result Encounter Generic External Data Provider [facility] External Department Unsolicited Start: 07-22-2024 End: 07-22-2024 ambulatory Luis E Soares [facility] Work Phone: Start: 07-22-2024 End: 07-22-2024 Departed Referred Michael Zapien Work Phone: [facility] Start: 07-19-2024 End: 07-19-2024 ambulatory [facility] Start: 07-07-2024 End: 07-07-2024 ambulatory DIPTI ANDERSON Not Available Start: 07-01-2024 ambulatory [facility] Start: 06-02-2024 End: 06-02-2024 Patient encounter procedure Dipti Anderson PA Work Phone: [facility] Comment on above: Medicare annual well ness visit, subsequent (Primary Dx); ACP (advance care planning); Estrogen deficiency; Pulmonary emphysema, unspecified emphysema type ([facility]/HCC); Dyspnea on exertion; Hypoxia; Mild intermittent asthma without complication ([facility]/HCC); Panlobular emphysema ([facility]/HCC); Supplemental oxygen dependent; Benign hypertensive heart disease [...] Primary ovarian failure; Anxiety; Current use of terminal gauger anticoagulation; Diplopia; Elevated liver enzymes; Frequent falls; History of stroke without residual deficits; Memory changes; 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); COPD exacerbation (CMS/HCC) Start: 06-02-2024 End: 06-02-2024 ambulatory DIPTI ANDERSON Not Available Start: 06-01-2024 End: 06-01-2024 NEXAGEheet Teri Martinez MD Work Phone: [facility] Start: 06-01-2024 End: 06-01-2024 NEXAGEtod Martinez MD Work Phone: [facility] Start: 06-01-2024 End: 06-01-2024 Office outpatient visit 25 minutes Teri Martinez MD Work Phone: [facility] Comment on above: Hyperthyroidism (CMS /HCC) (Primary Dx); Multinodular goiter (CMS/HCC); Longstanding persistent atrial fibrillation ([facility]/HCC) Start: 06-01-2024 End: 06-01-2024 ambulatory TERI MARTINEZ Not Available Start: 05-25-2024 ambulatory [facility] Start: 05-25-2024 Encounter for preprocedural cardiovascular examination [facility] Start: 05-23-2024 End: 05-23-2024 Clinisync Result Encounter Generic External Data Provider [facility] External Department Unsolicited Start: 05-23-2024 End: 05-23-2024 Clinisync Result Encounter Generic External Data Provider [facility] External Department Unsolicited Start: 05-12-2024 End: 05-13-2024 Refill Annalise Paniagua LPN [facility] Comment on above: Anxiety Start: 04-25-2024 ambulatory [facility] Start: 03-30-2024 End: 03-30-2024 [employer]arr[employer] Ole Yang MD Work Phone: [facility] [...] OLE YANG Not Available Start: 02-29-2024 ambulatory [facility] Start: 02-25-2024 End: 02-25-2024 Bamboo flowsheet [...] DIPTI ANDERSON Not Available Start: 02-04-2024 ambulatory [facility] Start: 01-25-2024 End: 01-25-[address] [facility] Start: 12-08-2023 ambulatory [facility] Start: 12-03-2023 ambulatory [facility] Start: 12-02-2023 End: 12-02-2023 Bamboo juana Martinez MD Work Phone: [facility] Start: 12-02-2023 End: 12-02-2023 Bamboo flowstod Martinez MD Work Phone: [facility] Start: 12-02-2023 End: 12-02-2023 Office outpatient visit 25 minutes Teri Martinez MD Work Phone: [facility] Comment on above: Hyperthyroidism (CMS /HCC) [...] Available Start: 10-29-2023 End: 10-30-2023 Refill Dipti VEGA Work Phone: [facility] Comment on above: Anxiety Start: 10-26-2023 ambulatory [facility] Start: 10-16-2023 ambulatory [facility] Start: 09-01-2023 End: 09-01-2023 ambulatory DIPTI ANDERSON Not Available Start: 08-26-2023 End: 08-26-2023 ambulatory DIPTI ANDERSON Not Available Start: [facility]14-[facility] Start: 04-27-2023 End: 04-27-2023 ambulatory [facility] Start: 04-27-2023 End: 04-27-2023 Office outpatient visit 15 minutes [facility] OD Work Phone: [facility] Comment on above: Esotropia of right e ye (Primary Dx); Right abducens nerve palsy; Double vision Start: 02-11-2023 End: 02-11-2023 Office outpatient visit 15 minutes Ole Yang MD Work Phone: [facility] Comment on above: Leg hematoma, right, initial encounter (Primary Dx); Current use of skilled nursing anticoagulation; Localized edema Start: 05-14-2022 End: 05-15-2022 ambulatory TERI MARTINEZ Facility:[facility] Start: 03-19-2022 End: 03-20-[address] DIPTI ANDERSON Facility:[facility] Start: 12-23-2021 End: 12-24-2021 ambulatory SHELDON GOTTLIEB Facility:[facility] Start: 11-25-2021 End: 11-26-2021 ambulatory TERI MARTINEZ Facility:[facility] Start: 09-04-2021 End: 09-05-2021 ambulatory SHELDON GOTTLIEB Facility:[facility] Start: 08-23-2021 Encounter for other preprocedural examination [facility] Start: 08-23-2021 Encounter for preprocedural laboratory examination [facility] Start: 08-22-2021 End: 08-23-2021 ambulatory KEANU COYCKO Facility:[facility] Start: 08-21-2021 End: 08-22-2021 ambulatory KEANU ELIUD Facility:[facility] Start: 08-20-2021 End: 08-21-2021 ambulatory SHELDON GOTTLIEB Facility:[facility] Start: 08-20-2021 End: 08-21-2021 Encounter for other preprocedural examination SHELDON GOTTLIEB Facility:[facility] Start: 07-30-2021 End: 07-31-2021 ambulatory SHELDON GOTTLIEB Facility:[facility] Start: 06-28-2021 End: 06-29-2021 ambulatory MERYL ANTON Facility:[facility] Start: 06-20-2021 Encounter for other specified special examinations SHELDONCHIQUITA GOTTLIEB [facility] Start: 06-18-2021 End: 06-19-2021 ambulatory SHELDON GOTTLIEB Facility:[facility] Start: 06-18-2021 End: 06-19-2021 Encounter for other specified special examinations MERYL ANTON Facility:[facility] Start: 06-17-2021 End: 06-17-[address] MAYRA CHOI Facility:[facility] Start: 06-12-2021 End: 06-13-2021 ambulatory SHELDON GOTTLIEB Facility:[facility] Start: 06-04-2021 End: 06-04-2021 ambulatory GABRIEL GREEN Facility:[facility] Start: 12-28-2020 End: 12-29-2020 ambulatory KEANU ELIUD Facility:[facility] Start: 11-19-2020 End: 11-20-2020 ambulatory KEANU ELIUD Facility:[facility] Start: 10-25-2003 Evaluation and manag ement of inpatient Michael Zapien Work Phone: [facility] Work Phone: Procedures Date Procedure Procedure Detail Performing Clinician Start: 07-22-2024 URINE CULTURE [place] [facility] External Data Provider Start: 05-23-2024 ALL T3 FREE Generic Ex ternal Data Provider Start: 05-23-2024 ALL THYROID STIM HORMONE Generic External Data Provider Start: 05-23-2024 ALL THYROXINE (T4) FREE Generic External Data Provider Start: 10-10-2024 ALL THYROXINE (T4) FREE Generic External Data Provider Start: 04-27-2023 Follow-up visit Follow-up ELIEL NICHOLS Plan of Treatment Date Care Activity Detail Author Start: 11-30-2024 End: 11-30-2024 Patient encounter procedure 11/30/2024 10:00 AM EDT Office Visit [facility] [address] [place] [address] Teri Martinez MD [address] [place] [address] [facility] Start: 09-14-2024 End: 09-14-2024 Patient encounter procedure 09/14/2024 10:00 AM EDT Office Visit [facility] [address] [place] [address] Ole Yang MD [address] [place] [address] [facility] Start: 08-31-2024 End: 08-31-2024 Patient encounter procedure 08/31/2024 9:30 AM EDT Office Visit [facility] [address] [place] [address] Dipti Anderson PA [address] [place] [address] [facility] Start: 08-15-2024 End: 08-15-2024 Patient encounter procedure 08/15/2024 2:30 PM EDT Office Visit [facility] [address] [place] [address] Ole Yang MD [address] [place] [address] Arrived [facility] Comment on above: Arrived Start: 08-11-2024 End: 08-11-2024 Patient encounter procedure 08/11/2024 10:00 AM EDT Office Visit [facility] [address] [place] [address] Dipti Anderson PA [address] [place] [address] [facility] Start: 07-22-2024 Bacteria identified in Urine by Culture Urine Culture [facility] Start: 07-22-2024 Urine culture [facility] Start: 06-02-2024 End: 06-02-2025 DXA Skeletal system Views for bone density DEXA bone density Imaging Routine Estrogen deficiency Expected: 06/02/2024, Expires: 06/02/2025 [facility] Work Phone: Comment on above: Expected: 06/02/2024, Expires: Start: 06-02-2024 End: 06-02-2024 Patient encounter procedure 06/02/2024 9:30 AM EDT Office Visit [facility] [address] [facility] [address] [place] [address] Dipti Anderson PA [address] [place] [address] [facility] Start: 06-01-2024 End: 06-01-2025 Thyrotropin [Units/volume] in Serum or Plasma TSH Lab Routine Hyperthyroidism ([facility]/HCC) Expected: 06/01/2024 (Approximate), Expires: 06/01/2025 [facility] Comment on above: Expected: 06/01/2024 (Approximate), Expi res: 06/01/2025 Start: 06-01-2024 End: 06-01-2025 Thyroxine (T4) free [Mass/volume] in Serum or Plasma T4, free Lab Routine Hyperthyroidism (CMS/HCC) Expected: 06/01/2024 (Approximate), Expires: 06/01/2025 [facility] Comment on above: Expected: 06/01/2024 (Approximate), Expi res: 06/01/2025 Start: 06-01-2024 End: 06-01-2025 Triiodothyronine (T3) Free [Mass/volume] in Serum or Plasma T3, free Lab Routine Hyperthyroidism (CMS/HCC) Expected: 06/01/2024 (Approximate), Expires: 06/01/2025 [facility] Work Phone: Comment on above: Expected: 06/01/2024 (Approximate), Expi res: 06/01/2025 Start: 06-01-2024 End: 06-01-2024 Patient encounter procedure [facility] Comment on above: Arrived Start: 05-30-2024 End: 05-30-2024 Patient encounter procedure 05/30/2024 9:30 AM EDT Office Visit [facility] [address] [place] [address] Dipti Anderson PA [address] [place] [address] [facility] Start: 05-26-2024 Medicare Annual Wellness (AWV) Medicare Annual Wellness (AWV) [facility] Start: 04-26-2024 Tobacco Screening Tobacco Screening [facility] Start: 03-30-2024 End: 03-30-2024 Patient encounter procedure 03/30/2024 10:15 AM EST Office Visit [facility] [address] [place] [address] Ole Yang MD [address] [place] [address] Arrived [facility] Comment on above: Arrived Start: 02-25-2024 End: 02-24-2025 25-hydroxyvitamin D3 [Mass/volume] in Serum or Plasma Vitamin D 25 hydroxy Total Lab Routine 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 ([facility]) Age-related osteoporosis without current pathological fracture ([facility]) Expected: 02/25/2024 (Approximate), Expires: 02/24/2025 [facility] Comment on above: Expected: 02/25/2024 (Approximate), Expi res: 02/24/2025 Start: 02-25-2024 End: 02-24-2025 Basic metabolic 1998 panel - Serum or Plasma Basic metabolic panel Lab Routine Benign hypertensive heart disease with heart failure ([facility]) Impaired fasting glucose Expected: 02/25/2024 (Approximate), Expires: 02/24/2025 [facility] Comment on above: Expected: 02/25/2024 (Approximate), Expi res: 02/24/2025 Start: 02-25-2024 End: 02-24-2025 CBC W Auto Differential panel - Blood CBC and differential Lab Routine Benign hypertensive heart disease with heart failure (CMS/HCC) 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 (CMS/HCC) Expected: 02/25/2024 (Approximate), Expires: 02/24/2025 [facility] Work Phone: Comment on above: Expected: 02/25/2024 (Approximate), Expi res: 02/24/2025 Start: 02-25-2024 End: 02-24-2025 Hemoglobin A1c/Hemoglobin.total in Blood Hemoglobin A1c Lab Routine Impaired fasting glucose Expected: 02/25/2024 (Approximate), Expires: 02/24/2025 [facility] [facility] Comment on above: Expected: 02/25/2024 (Approximate), Expi res: 02/24/2025 Start: 02-25-2024 End: 02-24-2025 Lipid 1996 panel - Serum or Plasma Lipid panel Lab Routine 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 Comment on above: Expected: 02/25/2024 (Approximate), Expi res: 02/24/2025 Start: 02-25-2024 End: 02-25-2024 Patient encounter procedure [facility] Comment on above: Arrived Start: 12-04-2023 Adult BMI Screening Adult BMI Screening [facility] Start: 12-02-2023 End: 12-01-2024 Hepatic function 2000 panel - Serum or Plasma Hepatic function panel Lab Routine Hyperthyroidism (CMS/HCC) Expected: 12/02/2023 (Approximate), Expires: 12/01/2024 [facility] Comment on above: Expected: 12/02/2023 (Approximate), Expi res: 12/01/2024 Start: 12-02-2023 End: 12-01-2024 Thyrotropin [Units/volume] in Serum or Plasma TSH Lab Routine Hyperthyroidism (CMS/HCC) Expected: 12/02/2023 (Approximate), Expires: 12/01/2024 [facility] Comment on above: Expected: 12/02/2023 (Approximate), Expi res: 12/01/2024 Start: 12-02-2023 End: 12-01-2024 Thyroxine (T4) free [Mass/volume] in Serum or Plasma T4, free Lab Routine Hyperthyroidism (CMS/HCC) Expected: 12/02/2023 (Approximate), Expires: 12/01/2024 [facility] Comment on above: Expected: 12/02/2023 (Approximate), Expi res: 12/01/2024 Start: 12-02-2023 End: 12-01-2024 Triiodothyronine (T3) Free [Mass/volume] in Serum or Plasma T3, free Lab Routine Hyperthyroidism (CMS/HCC) Expected: 12/02/2023 (Approximate), Expires: 12/01/2024 [facility] Work Phone: Comment on above: Expected: 12/02/2023 (Approximate), Expi res: 12/01/2024 Start: 12-02-2023 End: 12-02-2023 Patient encounter procedure [facility] Comment on above: Arrived Start: 11-26-2023 End: 11-26-2023 Patient encounter procedure [facility] Comment on above: Arrived Start: 10-18-2023 Influenza vaccination Influenza Vaccine (#1) [facility] Start: 08-17-2007 Fall Risk Screening Fall Risk Screening [facility] Start: 1961 DTaP,Tdap and Td Vaccines (1 - Tdap) DTaP,Tdap and Td Vaccines (1 - Tdap) [facility] Start: 1960 Adult BMI Follow Up Plan Adult BMI Follow Up Plan [facility] Start: 1954 Depression Screening Depression Screening [facility] Start: 1942 Medicare Annual Wellness Visit Medicare Annual Wellness Visit [facility] Immunizations Immunization Date Immunization Notes Care Provider Fa cili 12-10-2023 SARS-COV-2 (COVID-19 ) vaccine, mRNA, spike protein, LNP, PF, robert-sucrose, 30 mcg/0.3 mL Dipti Hemmer PA Work Phone: [facility] 11-26-2023 Influenza, High-dose Seasonal, Quadrivalent, Preservative Free Dipti Hemmer PA Work Phone: [facility] 01-01-2023 SARS-COV-2 (COVID-19 ) vaccine, mRNA, spike protein, LNP, PF, robert-sucrose, 30 mcg/0.3 mL Dipti Hemmer PA Work Phone: [facility] 01-01-2023 zoster vaccine recombinant K aren Hemmer PA Work Phone: [facility] 12-10-2022 ABRYSVO - Respirator y syncytial virus (RSV), vaccine, bivalent, protein subunit RSV prefusion F, diluent reconstituted, 0.5 mL, PF Dipti Hemmer PA Work Phone: [facility] 11-26-2022 Influenza, Seasonal, Quadrivalent, Adjuvanted Dipti Hemmer PA Work Phone: [facility] 11-26-2022 influenza virus vacc ine, unspecified formulation Dipti Hemmer PA Work Phone: [facility] 04-16-2022 zoster vaccine recombinant K aren Hemmer PA Work Phone: [facility] 12-10-2021 influenza, high dose seasonal, preservative-free Dipti Hemmer PA Work Phone: [facility] 12-10-2021 Moderna SARS-CoV-2 50mcg/0.5mL Booster Dipti Hemmer PA Work Phone: [facility] 01-17-2021 influenza, high dose seasonal, preservative-free Dipti Hemmer PA Work Phone: [facility] 01-10-2020 Seasonal trivalent influenza vaccine, adjuvanted, preservative free Dipti Hemmer PA Work Phone: [facility] 02-23-2019 pneumococcal polysaccharide vaccine, 23 valent Dipti Hemmer PA Work Phone: [facility] 11-25-2018 Seasonal trivalent influenza vaccine, adjuvanted, preservative free Dipti VEGA Work Phone: [facility] 06-25-2018 pneumococcal conjuga te vaccine, 13 valent Dipti Hemtyler PA Work Phone: [facility] 12-02-2017 Influenza, High-dose Seasonal, Quadrivalent, Preservative Free Dipti Hemtyler PA Work Phone: [facility] 12-11-2016 Influenza, High-dose Seasonal, Quadrivalent, Preservative Free Dipti Hemtyler PA Work Phone: [facility] 08-17-2007 pneumococcal polysaccharide vaccine, 23 valent Dipti Hemtyler PA Work Phone: [facility] Healthcare Payers Date Payer Category Payer Self-pay 2022 Private Health Insurance [facility] MED ICARE SUPPLEMENT [id number] 2022 Unknown [employer]CIAL [employer]ME RCIAL - GENERIC PLAN [id number] 2022-Present [phone] [address] [address] [place] [address] [id number] 2004 Medicare [id number] 1959 Medicare [id number] 1959 Unknown [id number] 1942 Unknown [id number] 2.16.840.1.293182.3.579.2 .647 1942 Unknown [id number] 2.16.840.1.132740.3.579.2 .647 1942 Unknown [id number] 2.16.840.1.545079.3.579.2 .647 1942 Unknown [id number] 2.16.840.1.329780.3.579.2 .593 1942 Unknown [id number] 2.16.840.1.456510.3.579.2 .593 1942 Unknown [id number] 2.16.840.1.157142.3.579.2 .593 1942 Unknown [id number] 2.16.840.1.574338.3.579.2 .593 1942 Unknown [id number] 2.16.840.1.291276.3.579.2 .593 1942 Unknown [id number] 2.16.840.1.207363.3.579.2 .593 1942 Unknown [id number] 2.16.840.1.709060.3.579.2 .593 1942 Unknown [id number] 2.16.840.1.406490.3.579.2 .593 1942 Unknown [id number] 2.16.840.1.830963.3.579.2 .593 1942 Unknown [id number] 2.16.840.1.138847.3.579.2 .593 1942 Unknown [id number] 2.16.840.1.328630.3.579.2 .593 1942 Unknown [id number] 2.16.840.1.259104.3.579.2 .593 1942 Unknown [id number] 2.16.840.1.933113.3.579.2 .593 1942 Unknown [id number] 2.16.840.1.099588.3.579.2 .593 1942 Unknown [id number] 2.16.840.1.283958.3.579.2 .593 1942 Unknown [id number] 2.16.840.1.974005.3.579.2 .1286 1942 Unknown [id number] 2.16.840.1.966458.3.579.2 .1259 1942 Unknown [id number] 2.16.840.1.861460.3.579.2 .1259 1942 Unknown [id number] 2.16.840.1.559199.3.579.2 .125 1942 Unknown [id number] 2.16.840.1.296102.3.579.2 .9 1942 Unknown [id number] 2.16840.1.739587.3.579.2 .1259 1942 Unknown [id number] 2.16.840.1.863500.3.579.2 .125 1942 Unknown [id number] 2.16.840.1.890264.3.579.2 .1258 1942 Unknown [id number] 2.16.840.1.267566.3.579.2 .1258 1942 Unknown [id number] 2.16840.1.347926.3.579.2 .125 1942 Unknown [id number] 2.16.840.1.847636.3.579.2 .1259 Medicare Medicare [id number] Unknown [id number] 2.16.840.1.086363.3.579.2 .531 Social History Date Type Detail Facility Start: 07-28-2022 End: 08-13-2022 Tobacco smoking status CTIS Never smoked tobacco [facility] Start: 07-28-2022 End: 08-13-2022 Tobacco use and exposure Smokeless tobacco non-user [facility] Start: 02-11-2023 End: 08-15-2024 Alcoholic beverage intake Lifetime non-drinker (finding) [facility] [...] Sex assigned at Not on file P [facility] How often do you nee d to [...] time - these days [OSQ] Rather much [facility] Tobacco smoking stat us NHIS Unknown if ever smoked [facility] Work Phone: Start: 07-23-2024 Sex Female (finding) [facility] Start: 1940 Sex Assigned At Female F [facility] Functional Status Date Assessment Result Facility 08-15-2024 Patient Health Quest ionnaire 2 item (PHQ-2) [Reported] [facility] 08-15-2024 PHQ-9 quick depressi on assessment panel [Reported.PHQ] [facility] 06-02-2024 Patient Health Quest ionnaire 2 item (PHQ-2) [Reported] [facility] 06-01-2024 Total score [AUDIT-C] 0 06/02/19 10:00 AM EDT Mychart, Generic [facility] 06-01-2024 How often to you hav e a drink containing alcohol? Never 06/01/2024 10:00 AM EDT Mychart, Generic Never [facility] 06-01-2024 Functional status Patient does n ot drink 06/01/2024 10:00 AM EDT Mychart, Generic Patient does not drink [facility] 06-01-2024 How often do you hav e 6 or more drinks on 1 occasion? Never 06/01/2024 10:00 AM EDT Mychart, Generic Never [facility] Clinical Notes 06-17-2021 to 08-15-2024 Ole Yang MD - 08/15/2024 2:30 PM SILVIA Galo - 06/02/2024 9:30 AM Yolanda Martinez MD - 06/01/2024 10:00 AM EDTTelephone Encounter - Annalise Paniagua LPN - 05/12/2024 3:07 PM EDT Note Date & Type Note Facility 08-15-2024 History of Presen t illness Narrative Images from the original note were not included. Subjective Patient ID: Lluvia Moreno is a 83 y.o. female who presents for No chief complaint on file.. Lluvia presents today for being discharged from a prison. She says she is feeling much better since she is home. Over the past 2 weeks, how often have you been bothered by any of the following problems? Little interest or pleasure in doing things: Several days Feeling down, depressed, or hopeless: Several days Patient Health Questionnaire-2 Score: 2 If you checked off any problems on this questionnaire so far, How difficult have these problems made it for you to do your work, take care of things at home, or get along with other people?: Somewhat difficult Current Outpatient Medications on File Prior to [...] mg) by mouth Daily 100 tablet 3 Brexpiprazole (Rexulti) 0.25 MG tablet Take 0.25-0.5 mg by mouth Daily Take 0.25 daily for two weeks then 0.5 mg daily. 60 tablet 2 Brexpiprazole (Rexulti) 0.5 MG tablet Take 0.25 mg by mouth Daily 60 tablet 3 Xpekvjd-Ltzjcckqzwf-Uafpnaitsa (Breztri Aerosphere) 160-9-4.8 MCG/ACT aerosol Inhale 2 puffs in the morning and 2 puffs before bedtime. 10.7 g 3 bumetanide (Bumex) 1 MG tablet Take 1 mg by mouth Daily PRN (Patient taking differently: Take 1 mg by mouth Daily as needed PRN) Calcium Carb-Cholecalciferol 600-200 MG-UNIT tablet Take 2 [...] mouth as needed at bedtime for anxiety methIMAzole (Tapazole) 10 MG tablet TAKE ONE-HALF (1/2) TABLET ON THURSDAY, THURSDAY, THURSDAY AND THURSDAY (Patient taking differently: Take 5 mg by mouth TABLET ON THURSDAY, THURSDAY, THURSDAY AND THURSDAY) 26 tablet 3 metoprolol succinate XL (Toprol-XL) 50 [...] Father Past Medical History: Diagnosis Date A-fib (HCC) Arthritis CAD (coronary artery disease) Cerebrovascular accident (HCC) Disease of thyroid gland H/O bladder infections Hearing loss Heart disease History of atrial fibrillation History of being hospitalized 08/28/2023 COPD Exacerbation History of echocardiogram 2017 EF 60-65% History of heart artery stent History of knee problem History of pacemaker History of sinus problem History of varicose veins Hyperlipidemia Hypertension Hyperthyroidism Toxic multinodular goiter Visual impairment Past Surgical History: Procedure Laterality Date APPENDECTOMY AV NODE ABLATION 2020 BLADDER SURGERY CARDIAC CATHETERIZATION 2021 CARDIAC PACEMAKER PLACEMENT 2020 CARDIAC PACEMAKER REMOVAL 2021 ICD implantation HYSTERECTOMY TENDON REPAIR right thumb dr schultz TOTAL KNEE ARTHROPLASTY 2003 dr zapien left/ right dr inman 2010 Visit Vitals BP 120/78 Pulse 70 Resp 17 Ht 5' 6 Wt 172 lb SpO2 99% BMI 27.76 kg/m Smoking Status Never BSA 1.91 m Review of Systems Objective Physical Exam [...] normal. Speech: Speech normal. Behavior: Behavior normal. Cognition and Memory: Cognition is impaired (Mild). Assessment/Plan Diagnoses and all orders for this visit: Dementia with behavioral disturbance (HCC) - The patient was seen today in follow up of recent hospital and prison stay. All available hospital records were reviewed and discussed with the patient. Hospital discharge meds were reviewed. Any changes are as noted. This office visit was spent in consultation regarding the patient's current medical problems, differential diagnoses, testing/imaging results, and treatment options. Greater than 25 minutes was spent in mcli-cx-nema consultation and coordination of care. 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 documented in this encounter [facility] 08-11-2024 Note [facility] follow-up note Reason for cardiology visit: Follow-up on coronary artery disease, atrial fibrillation, pacemaker, hypertension and hyperlipidemia HPI: 08/11/2024 Patient was recently in the hospital on 07/22/2024 to 07/24/2024 with UTI and acute on chronic respiratory failure with hypoxia. The patient was severely hypoxic in the 60s when she was admitted. She had mild elevation of high-sensitivity troponin to 186 but her echo was normal without wall motion abnormalities. She did not have any chest pain. She was treated with antibiotics. She went after that to a nursing skilled facility for physical therapy. Patient is here today with her daughter for follow-up visit. She states that she has been feeling stronger. She has a home health nurse coming to the house once a week. She denies any chest pain. She has chronic shortness of breath and she wears oxygen at 2 L/min at rest and 3 L/min on exertion. She denies orthopnea or paroxysmal nocturnal dyspnea or dizziness or palpitation or legs edema. She has been drinking more water after discharge from the hospital 01/25/2024 The patient is here today for [...] no known allergies. Medications Current Outpatient Medications: albuterol 90 mcg/actuation inhaler, inhale 2 puffs every 4 (four) hours if needed for wheezing, Disp: , Rfl: apixaban (Eliquis) 5 mg tablet, Take 1 tablet twice a day by oral route for 90 days., Disp: , Rfl: atorvastatin (Lipitor) 80 mg tablet, Take 1 tablet by mouth at bedtime., Disp: , Rfl: lisinopril 2.5 mg tablet, Take 1 tablet (2.5 mg) by mouth in the morning., Disp: 30 tablet, Rfl: 11 methIMAzole (Tapazole) 10 mg tablet, Take 5 [...] as directed., Disp: 90 tablet, Rfl: 3 aspirin 81 mg EC tablet, Take 1 tablet every day by oral route., Disp: , Rfl: vlowgdvqvr-zwuwahfb-aiygknrhkz (Breztri Aerosphere) 160-9-4.8 mcg/actuation HFA aerosol inhaler, Inhale., Disp: , Rfl: bumetanide (Bumex) 1 mg tablet, if needed. (Patient not taking: Reported on 08/11/2024), Disp: , Rfl: cholecalciferol (Vitamin D-3) 50 MCG (1999 UT) tablet, Take 1 tablet every day by oral route., Disp: , Rfl: LORazepam (Ativan) 0.5 mg tablet, TAKE ONE TABLET BY MOUTH EVERY 6 HOURS NEEDED FOR ANXIETY ATTACKS, Disp: , Rfl: Rexulti 0.5 mg tablet, Take 0.25 mg by mouth in the morning., Disp: , Rfl: Last Recorded Vitals Visit Vitals BP 115/70 (BP Location: Right arm, Patient Position: Sitting) Pulse 70 Ht 1.702 m (5' 7 ) Wt 78.9 kg (174 lb) SpO2 96% Comment: on 3L O2 BMI 27.25 kg/m??? Smoking Status Never BSA 1.93 m??? Physical Examination: GENERAL: alert and oriented x3, well developed, in no acute distress. (more content not included)... [facility] 06-02-2024 History of Presen t illness Narrative [...] apparent by direct observation Three Word Registration: Ria Barney, Table Clock Drawing: Normal Clock - 2 Three Word Recall: 0 words correct - 0 Total Score (0-5 Points): 2 Pain Assessment Pain Score: 10 - Worst possible pain Advance Care Planning Do you have a living will?: Yes Do you have a medical power of corporate associate attorney?: Yes Current Outpatient Medications on File [...] mg) by mouth Daily 100 tablet 3 Afztewb-Vvoffyajqlp-Ymmjyxduuv (Breztri Aerosphere) 160-9-4.8 MCG/ACT aerosol Inhale 2 [...] dr schultz TOTAL KNEE ARTHROPLASTY 2003 dr zapien left/ right dr inman 2010 Visit Vitals [...] Future 4. Pulmonary emphysema, unspecified emphysema type ([facility]/HCC) This is a chronic medical condition that [...] oxygen. 7. Mild intermittent asthma without complication (CMS/HCC) This is a chronic medical condition that is stable since last assessment. No changes in treatment are suggested at this time. Continue Breztri as prescribed, and Albuterol as needed. 8. Panlobular emphysema (CMS/HCC) This is a chronic medical condition [...] hypertensive heart disease with heart failure (CMS/HCC) The patient is seeing a medical and health services manager for this condition, treatment is deferred to that specialist. Correspondence from that specialist and any available testing were reviewed during today's visit. 11. Chronic atrial fibrillation, unspecified (CMS/HCC) The patient is seeing a medical and health services manager for this condition, treatment is deferred to that specialist. Correspondence from that specialist and any available testing were reviewed during today's visit. 12. Chronic combined systolic (congestive) and diastolic (congestive) heart failure The patient is seeing a medical and health services manager for this condition, treatment is deferred to that specialist. Correspondence from that specialist and any available testing were reviewed during today's visit. 13. Chronic systolic dysfunction of left ventricle The patient is seeing a medical and health services manager for this condition, treatment is deferred to that specialist. Correspondence from that specialist and any available testing were reviewed during today's visit. 14. 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 Correspondence from that specialist and any available testing were reviewed during today's visit. 15. Primary hypertension ([facility]) The patient is seeing a medical and health services manager for this condition, treatment is deferred to that specialist. Correspondence from that specialist and any available testing were reviewed during today's visit. 16. ICD (implantable cardioverter-defibrillator) in place The patient is seeing a medical and health services manager for this condition, treatment is deferred to that specialist. Correspondence from that specialist and any available testing were reviewed during today's visit. 17. Non-rheumatic mitral regurgitation The patient is seeing a medical and health services manager for this condition, treatment is deferred to that specialist. Correspondence from that specialist and any available testing were reviewed during today's visit. 18. Status post biventricular cardiac pacemaker insertion The patient is seeing a medical and health services manager for this condition, treatment is deferred to that specialist. Correspondence from that specialist and any available testing were reviewed during today's visit. 19. Chronic kidney disease, stage 3b ([facility]) ([facility]) This is a chronic medical condition that is stable since last assessment. Will continue to monitor with routine labs. 20. Age-related osteoporosis without current pathological fracture ([facility]) This is a chronic medical [...] by patient at this time. 25. Hyperthyroidism ([facility]) The patient is seeing a medical and health services manager for this condition, treatment is deferred to [...] (around 09/01/2024) for Medication Follow Up. Dipti CORNELIUS, PAKvngC documented in this encounter [facility] 06-01-2024 History of Presen t illness [...] on 03/31/18 for lab done in in [facility]: TSH still suppressed 0.07, free T4 back [...] hours atorvastatin (LIPITOR) 80 mg, Oral, Daily Zgdkrxe-Alqqenblhji-Gijbsqsaaj (Breztri Aerosphere) 160-9-4.8 MCG/ACT aerosol 2 puffs, [...] right thumb dr schultz TOTAL KNEE ARTHROPLASTY 2004 dr zapien left/ right dr inman 2010 REVIEW OF [...] months (around 12/01/2024). documented in this encounter [facility] 05-12-2024 Telephone encounter Note Needs sent to [facility] 05-12-2024 Miscellaneous Notes Needs sent to [facility] documented in this encounter [facility] 03-30-2024 History of Presen t illness [...] mg) by mouth Daily 100 tablet 3 Emezjxd-Pgzaxdtobva-Ekwdkjfmry (Breztri Aerosphere) 160-9-4.8 MCG/ACT aerosol Inhale 2 [...] dr schultz TOTAL KNEE ARTHROPLASTY 2003 [address] zapien left/ right dr inman 2010 Visit Vitals [...] this visit: Pulmonary emphysema, unspecified emphysema type ([facility]) - This is a chronic medical condition that is stable since last assessment. No changes in treatment are suggested at this time. Age-related osteoporosis without current pathological fracture ([facility]) - denosumab (Prolia) injection 60 mg Follow up in about 6 months (around 09/27/2024) for Routine F/U. documented in this encounter [facility] 02-25-2024 History of Presen t illness [...] 1 TABLET EVERY MORNING 100 tablet 3 Wczlosb-Woxolkrdscc-Blhjglqtep (Breztri Aerosphere) 160-9-4.8 MCG/ACT aerosol Inhale 2 [...] dr schultz TOTAL KNEE ARTHROPLASTY 2003 [address] zapien left/ right dr inman 2010 Visit Vitals [...] Future The patient is seeing a medical and health services manager for this condition, treatment is deferred to that specialist. Correspondence from that specialist and any available testing were reviewed during today's visit. Age-related osteoporosis without current pathological fracture (CMS/HCC) - Vitamin D 25 hydroxy Total; Future Will continue to monitor with routine DEXA scans. Continue Vitamin D and Calcium supplements daily. Cardiomyopathy, unspecified (CMS/HCC) The patient is seeing a medical and health services manager for this condition, treatment is deferred to that specialist. Correspondence from that specialist and any available testing were reviewed during today's visit. Longstanding persistent atrial fibrillation (CMS/HCC) The patient is seeing a medical and health services manager for this condition, treatment is deferred to that specialist. Correspondence from that specialist and any available testing were reviewed during today's visit. Chronic obstructive pulmonary disease, unspecified (CMS/HCC) See above. Chronic kidney disease, stage 3b (HCC) (CMS/HCC) Will continue to monitor with routine labs. 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) The patient is seeing a medical and health services manager for this condition, treatment is deferred to that specialist. Correspondence from that specialist and any available testing were reviewed during today's visit. Chronic atrial fibrillation, unspecified (CMS/HCC) The patient is seeing a medical and health services manager for this condition, treatment is deferred to that specialist. Correspondence from that specialist and any available testing were reviewed during today's visit. Supplemental oxygen dependent Using oxygen concentrator, O2 via nasal cannula. Oxygen is medically necessary for patient due to hypoxia and significant CLAIRE without it. Follow up in about 3 months (around 05/27/2024) for Medicare Wellness Visit. documented in this encounter [facility] 01-25-2024 Note [facility] follow-up note [...] by mouth at bedtime., Disp: , Rfl: lpsjglukai-ebznkayv-hfvrxwncca (Breztri Aerosphere) 160-9-4.8 mcg/actuation HFA aerosol inhaler, [...] stress ECG findings (more content not included)... [facility] 12-02-2023 History of Presen t illness Narrative [...] on 03/31/18 for lab done in in [facility]: TSH still suppressed 0.07, free T4 back [...] hours atorvastatin (LIPITOR) 80 mg, Oral, Daily Czagzge-Njnjpywqotl-Qfnwarhxar (Breztri Aerosphere) 160-9-4.8 MCG/ACT aerosol 2 Inhalation [...] dr schultz TOTAL KNEE ARTHROPLASTY 2003 [address] zapien left/ right dr inman 2010 REVIEW OF [...] months (around 06/01/2024). documented in this encounter [facility] 11-26-2023 History of Presen t illness [...] oxygen tank. Does have an appointment with [facility] on [facility] to get [...] mouth in the morning. 100 tablet 3 Qmgovon-Hjrzpauqfxq-Yuynklwued (Breztri Aerosphere) 160-9-4.8 MCG/ACT aerosol Inhale 2 [...] dr schultz TOTAL KNEE ARTHROPLASTY 2003 [address] zapien left/ right dr inman 2010 Visit Vitals [...] vaccination - Influenza, high-dose seasonal, quadrivalent, PF (EAV853) (Fluzone High Dose Quad North 0.7mL dose) [...] 02/26/2024) for COPD. documented in this encounter [facility] 10-30-2023 Telephone encounter Note OARRS reviewed, Rx sent into patient's pharmacy. [facility] 10-30-2023 Miscellaneous Notes OARRS reviewed, Rx sent into patient's pharmacy. documented in this encounter [facility] 04-27-2023 History of Presen t illness [...] like to follow up with her local email production consultant for regular eyecare/comprehensive exams. Will send a [...] (TOPROL XL) 50 mg 24 hr tablet multivitamin,lu-xzxu-Om-FA-min 27-0.4 mg tablet 1 (one) time each [...] history of COPD (chronic obstructive pulmonary disease) ([facility]) and Hypertension. She has a [...] accurate and complete. documented in this encounter [facility] 02-11-2023 History of Presen t illness Narrative [...] TAKE 1 TABLET DAILY for 100 days Poygcqi-Xtrboozewkt-Vwjdtrdiuq (Breztri Aerosphere) 160-9-4.8 MCG/ACT aerosol Inhale 1 [...] dr schultz TOTAL KNEE ARTHROPLASTY 2003 [address] zapien left/ right dr inman 2011 Visit Vitals Ht 5' 7 BMI 26.94 kg/m Smoking Status Never BSA 1.92 m Review of Systems Objective Physical Exam Assessment/Plan No follow-ups on file. documented in this encounter [facility] 08-22-2021 Note EXAMINATION: XR CHES T [...] by: JOEL ANDINO Date: 2021-08-22 17:39 [facility] 06-17-2021 Note PROCEDURE: XR FEMUR LT HISTORY: [...] by: JOEL ANDINO Date: 2021-06-17 11:09 [facility] Evaluation note Diagnosis Leg hematoma, right, initial encounter- Primary Current use of terminal gauger anticoagulation Localized edema Edema documented in this encounter [facility]Evaluation note* Diagnosis Pulmonary emphysema, unspecified emphysema type (CMS/HCC)- Primary Need for vaccination Need for prophylactic vaccination and inoculation against unspecified single disease Dyspnea on exertion Other dyspnea and respiratory abnormality Hypoxia Hypoxemia Primary hypertension (CMS/HCC) Unspecified essential hypertension 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) Acute bronchitis, unspecified organism documented in this encounter [facility]Evaluation [facility]* Diagnosis Hyperthyroidism (CMS/HCC)- Primary Thyrotoxicosis without mention of goiter or other cause, without mention of thyrotoxic crisis or storm Multinodular goiter (CMS/HCC) Nontoxic multinodular goiter Longstanding persistent atrial fibrillation (CMS/HCC) documented in this encounter [facility]* Diagnosis Anxiety Anxiety state, unspecified documented in this encounter [facility]* Diagnosis Panlobular emphysema (CMS/HCC)- Primary Other emphysema Benign hypertensive heart disease with heart failure (CMS/HCC) Impaired fasting glucose 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 (CMS/HCC) Age-related osteoporosis without current pathological fracture ([facility]/HCC) Cardiomyopathy, unspecified (CMS/HCC) Longstanding persistent atrial fibrillation (CMS/HCC) Chronic obstructive pulmonary disease, unspecified (CMS/HCC) Chronic kidney disease, stage 3b (HCC) (CMS/HCC) 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) Chronic atrial fibrillation, unspecified (CMS/HCC) Supplemental oxygen dependent Dependence on supplemental oxygen documented in this encounter [facility] note* Diagnosis Pulmonary emphysema, unspecified emphysema type ([facility]/HCC)- Primary Age-related osteoporosis without current pathological fracture ([facility]) documented in this encounter [facility] HealthcareEvaluation note* Diagnosis Esotropia of right eye- Primary Unspecified esotropia Right abducens nerve palsy Double vision Diplopia [facility]* Diagnosis Anxiety Anxiety state, unspecified documented in this encounter [facility] HealthcareEvaluation note* Diagnosis Hyperthyroidism ([facility]/HCC)- Primary Thyrotoxicosis without mention of goiter or other cause, without mention of thyrotoxic crisis or storm Multinodular goiter ([facility]/HCC) Nontoxic multinodular goiter Longstanding persistent atrial fibrillation ([facility]/HCC) documented in this encounter [facility]* Diagnosis Medicare annual wellness visit, subsequent- Primary ACP (advance care planning) Other specified counseling Estrogen deficiency Other ovarian failure Pulmonary emphysema, unspecified emphysema type ([facility]/HCC) Dyspnea on exertion Other dyspnea and respiratory abnormality Hypoxia Hypoxemia Mild intermittent asthma without complication (CMS/HCC) Panlobular emphysema ([facility]/HCC) Other emphysema Supplemental oxygen dependent Dependence on supplemental oxygen Benign hypertensive heart disease with heart failure (CMS/HCC) Chronic atrial fibrillation, unspecified (CMS/HCC) 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 systolic dysfunction of left ventricle 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 (CMS/HCC) Primary hypertension ([facility]) Unspecified essential hypertension ICD (implantable cardioverter-defibrillator) in place Non-rheumatic mitral regurgitation Status post biventricular cardiac pacemaker insertion Chronic kidney disease, stage 3b (HCC) ([facility]/HCC) Age-related osteoporosis without current pathological fracture ([facility]/HCC) Arthritis of right shoulder region Joint derangement of shoulder region Unspecified derangement, shoulder region Primary osteoarthritis involving multiple joints Rotator cuff syndrome of right shoulder Hyperthyroidism ([facility]/HCC) Thyrotoxicosis without mention of goiter or other cause, without mention of thyrotoxic crisis or storm Impaired fasting glucose Overweight (BMI 25.0-29.9) Overweight Primary ovarian failure Other ovarian failure Anxiety Anxiety state, unspecified Current use of terminal gauger anticoagulation Diplopia Elevated liver enzymes Other nonspecific abnormal serum enzyme levels Frequent falls History of stroke without residual deficits Transient ischemic attack (TIA), and cerebral infarction without residual deficits Memory changes Mild episode of recurrent major depressive disorder (HCC) ([facility]/HCC) COPD exacerbation ([facility]) Obstructive chronic bronchitis with exacerbation documented in this encounter [facility] HealthcareEvaluation noteNo assessment information availableCleveland Clinic [facility] Ctr Work Phone: Evaluation note* Diagnosis Dementia with behavioral disturbance (HCC)- Primary Pulmonary emphysema, unspecified emphysema type ([facility]) Hypoxia Hypoxemia Chronic combined systolic (congestive) and diastolic (congestive) heart failure ([facility]) Chronic kidney disease, stage 3b ([facility]-HCC) 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 documented in this encounter [facility] HealthcareInstructions* Attachments The following attachments cannot be sent through Care Everywhere. * Double Vision (Slovenian) [facility] Purpose Family History No Family History Records FoundNo Family History Records FoundNo Family History Records FoundNo Family History Records FoundNo Family History Records FoundNo Family History Records FoundNo Family History Records Found Advance Directives No Advanced Directives Records FoundDocuments on File Type Date Recorded Patient Sulfide Head Operator Expl anation Power of Cognos Bi Administrator 02/25/2024 12:18 PM Healt hcare Power of Cognos Bi Administrator Reason for Referral Specialty Diagnoses / Procedures Referred By Contac t Referred To Contact Radiology Diagnoses Leg hematoma, right, initial encounter Current use of skilled nursing anticoagulation Localized edema Procedures Vascular US lower extremity venous duplex right Ole Yang MD [address] [place] [address] [facility] [address] [place] [address] Referral ID Status Reason Start Date Expiration Date Visits Re quested Visits Authorized [id number] Closed 02/12/2023 05/14/2023 1 1 Additional Source Comments INFORMATION SOURCE (unrecogn ized section and content) DATE CREATED AUTHOR 10/15/2021 [facility] DATE CREATED AUTHOR AUTHOR'S ORGANIZ ATION 05/18/2022 [facility] DATE CREATED AUTHOR AUTHOR'S ORGANIZ ATION 04/27/2023 [facility] DATE CREATED AUTHOR AUTHOR'S ORGANIZ ATION 06/08/2024 [facility] DATE CREATED AUTHOR AUTHOR'S ORGANIZ ATION 07/24/2024 [facility] DATE CREATED AUTHOR AUTHOR'S ORGANIZ ATION 08/12/2024 [facility] DATE CREATED AUTHOR AUTHOR'S ORGANIZ ATION 2024 [facility] EPIC Reason for Visit (unrecogniz [...] Care Teams (unrecognized sec tion and content) Station Mechanic Helper Relationship Specialty Start Date End Date Ole Yang MD [address] [facility] [address] [place] [address] PCP - ACO Reach 07/10/22 Ole Yang MD [address] [place] [address] PCP - General Internal Medicine 07/28/22 Station Mechanic Helper Relationship Specialty Start Date End Date Ole Yang MD [address] [place] [address] PCP - ACO Reach 07/10/22 Ole Yang MD [address] [place] [address] PCP - General Internal Medicine 07/28/22Thursday, Bea, SLAT BASKET TOP MAKER [address] [place] [address] Licensed Practical Nurse Family Medicine 10/27/23 Station Mechanic Helper Relationship Specialty Start Date End Date Ole Yang MD [address] [place] [address] PCP - ACO Reach 07/10/22 Ole Yang MD [address] [place] [address] PCP - General Internal Medicine 07/28/22Thursday, Bea, SLAT BASKET TOP MAKER [address] [place] [address] Licensed Practical Nurse Family Medicine 10/27/23 Station Mechanic Helper Relationship Specialty Start Date End Date Ole Yang MD [address] [place] [address] PCP - ACO Reach 07/10/22 Ole Yang MD [address] [place] [address] PCP - General Internal Medicine 07/28/22Thursday, Bea, SLAT BASKET TOP MAKER [address] [place] [address] Licensed Practical Nurse Family Medicine 10/27/23 Station Mechanic Helper Relationship Specialty Start Date End Date Ole Yang MD [address] [place] [address] PCP - ACO Reach 07/10/22 Ole Yang MD [address] [place] [address] PCP - General Internal Medicine 07/28/22ThursdayBea LPN [address] [place] [address] Licensed Practical Nurse Family Medicine 10/27/23 Station Mechanic Helper Relationship Specialty Start Date End Date Ole Yang MD [address] [place] [address] PCP - ACO Reach 07/10/22 Ole Yang MD [address] [place] [address] PCP - General Internal Medicine 07/28/22ThursdayBea LPN [address] [place] [address] Licensed Practical Nurse Family Medicine 10/27/23 Station Mechanic Helper Relationship Specialty Start Date End Date Ole Yang MD [address] [place] [address] PCP - ACO Reach 07/10/22 Ole Yang MD [address] [place] [address] PCP - General Internal Medicine 07/28/22 Debora Saenz, RN Licensed Practical Nurse Family Medicine 03/25/24 Station Mechanic Helper Relationship Specialty Start Date End Date Ole Yang MD [address] [place] [address] PCP - ACO Reach 07/10/22 Ole Yang MD [address] [place] [address] PCP - General Internal Medicine 07/28/22 Debora Saenz, CHERI Licensed Practical Nurse Family Medicine 03/25/24 Station Mechanic Helper Relationship Specialty Start Date End Date Ole Yang MD [address] [place] [address] PCP - General Internal Medicine 08/13/22 Station Mechanic Helper Relationship Specialty Start Date End Date Ole Yang MD [address] [place] [address] PCP - ACO Reach 07/10/22 Ole Yang MD [address] [facility] [address] [place] [address] PCP - General Internal Medicine 07/28/22 Edna Alcantara LPN 05/06/24 Station Mechanic Helper Relationship Specialty Start Date End Date Ole Yang MD [address] [place] [address] PCP - ACO Reach 07/10/22 Ole Yang MD [address] [facility] [address] [place] [address] PCP - General Internal Medicine 07/28/22 Edna Alcantara LPN 05/06/24 Station Mechanic Helper Relationship Specialty Start Date End Date Ole Yang MD [address] [place] [address] PCP - ACO Reach 07/10/22 Ole Yang MD [address] [place] [address] PCP - General Internal Medicine 07/28/22 Edna Alcantara SLAT BASKET TOP MAKER 05/06/24 Station Mechanic Helper Relationship Specialty Start Date End Date Ole Yang MD [address] [place] [address] PCP - ACO Reach 07/10/22 Ole Yang MD [address] [place] [address] PCP - General Internal Medicine 07/28/22 Edna Alcantara SLAT BASKET TOP MAKER 05/06/24 Station Mechanic Helper Relationship Specialty Start Date End Date Ole Yang MD [address] [place] [address] PCP - ACO Reach 07/10/22 Ole Yang MD [address] [place] [address] PCP - General Internal Medicine 07/28/22 Edna Alcantara [facility] 05/06/24 Team Status: Active Member Role Status Dates Michael Zapien Attending Provider Active Start: October 25, 2003 Team Status: Inactive Member Role Status Dates Luis E Soares MD Attending Provider Active St art: July 22, 2024 End: July 22, 2024 Station Mechanic Helper Relationship Specialty Start Date End Date Ole Yang MD [address] [place] [address] PCP - ACO Reach 07/10/22 Ole Yang MD [address] [place] [address] PCP - General Internal Medicine 07/28/22 Edna Alcantara LPN 05/06/24 Station Mechanic Helper Relationship Specialty Start Date End Date Ole Yang MD [address] [place] [address] PCP - ACO Reach 07/10/22 Ole Yang MD [address] [facility] [address] [place] [address] PCP - General Internal Medicine 07/28/22 Edna Alcantara LPN [address] [facility] [address] [place] [address] 05/06/24 Station Mechanic Helper Relationship Specialty Start Date End Date Ole Yang MD [address] [facility] [address] [place] [address] PCP - ACO Reach 07/10/22 Ole Yang MD [address] [facility] [address] [place] [address] PCP - General Internal Medicine 07/28/22 Edna Alcantara LPN [address] [facility] [address] [place] [address] 05/06/24 Goals (unrecognized section and content) Goals may be documented in a n alternate section FOR RECORDS PERTAINING TO PATIENTS WHO ARE [...] BE BASED ON THE PRIMARY CLINICAL RECORDS. [employer] provides no warranty or guarantee of the accuracy or completeness of information in this document.
[2024-08-18 09:21] LABS: Alanine Aminotransferase 24 U/L (14-59); Aspartate Amino Transferase 23 U/L (15-37); Cholesterol 110 mg/dL (<=200); HDL Cholesterol 54 mg/dL (40-60); Triglycerides 55 mg/dL (<=150); VLDL CHOLESTEROL 11.0 mg/dL
== END 2024-08-18 08:30 | disposition home or self-care (01) ==
PROVIDERS: PCP Internal Medicine; Visit Provider Internal Medicine Cardiovascular Disease
DX: E78.00 Pure hypercholesterolemia, unspecified (principal)
CPT/HCPCS: 36415; 80061; 84450; 84460

== ENCOUNTER 2024-09-26 14:33 | Outpatient (REF) | payer MEDICARE, OTHER, SELFPAY ==
--- OUTSIDE RECORDS SUMMARY | 2024-09-26 14:37 | XMS_ITS | Encounter Summary ---
Author Organization [facility] Address [address] [place] [address] Care Team Providers Care Veterinary Practitioner Name Role Phone Ole Yang MD Primary Care Provider [phone] Encounter Details Date Type Department Care Team (Late st Contact Info) Description 09/20/2024 Telephone [facility] [address] [place] [address] Pita Love MA Social History Tobacco Use Types Packs/Day Years Used Date Smoking Tobacco: Never Smokeless Tobacco: Never Alcohol Use Standard Drinks/Week Comments Not Currently 0 (1 standard drink = 0.6 oz pur e alcohol) [place] Safety & Environment Answer Date Rec orded Fear of Current or Ex-Partner Not on file Emotionally Abused Not on file 04/09/2023 Physically Abused Not on file 04/09/2023 Sexually Abused Not on file 04/09/2023 Physically or Sexually Abused Not on file Comments Unknown Sex and Gender Information Value Date Recorded Sex Assigned at Not on file Legal Sex Female 11:46 PM EDT Gender Identity Not on file Sexual Orientation Not on file documented as of this encounter Miscellaneous Notes * Telephone Encounter - Pita Love MA - 09/20/2024 2:18 PM EDT Images from the original note were not included. Regarding lab results from 08/18/2024: MD Pita Rivera MA Good lipids and AST ALT. Continue current medication. Recheck in 6 months documented in this encounter Plan of Treatment Not on file documented as of this encounter Visit Diagnoses Not on filedocumented in this encounter Care Teams Veterinary Practitioner Relationship Specialty Start Date End Date Ole Yang MD [address] [facility] [address] [place] [address] PCP - General 10/07/21 documented as of this encounter
--- OUTSIDE RECORDS SUMMARY | 2024-09-26 14:37 | XMS_ITS | Encounter Summary ---
Author Organization [facility] Address [address] [place] [address] Care Team Providers Care Energy Systems Engineer Name Role Phone Ole Yang MD Primary Care Provider [phone] Encounter Details Date Type Department Care Team (Late st Contact Info) Description 06/20/2024 Orders Only [facility] [address] [place] [id number] Soni Nowak MD [address] [place] [address] Social History Tobacco Use Types Packs/Day Years [...] as of this encounter Plan of Treatment Not on file documented as of this encounter Procedures Procedure Name Priority Date/Time Associated Diagnosis Comments CARDIAC DEVICE CHECK - REMOTE - ICD Routine 06/20/2024 12:00 AM EDT documented in this encounter Results * Cardiac device check - Remote ICD (06/20/2024 12:00 AM EDT) Anatomical Region Laterality Modality Other 06/20/2024 Soni Nowak MD CV IMPLANTABLE CARDIAC DEVICE PROCEDURES Final Result documented in this encounter Visit Diagnoses Not on filedocumented in this encounter Care Teams Energy Systems Engineer Relationship Specialty Start Date End Date Ole Yang MD [address] [place] [address] PCP - General 10/07/21 documented as of this encounter
--- OUTSIDE RECORDS SUMMARY | 2024-09-26 14:37 | XMS_ITS | Encounter Summary ---
Author Organization [facility] Address [address] [place] [address] Care Team Providers Care Missile Facilities Repairer Name Role Phone Ole Yang MD Primary Care Provider [phone] Reason for Visit * Reason Comments Med Refill Encounter Details Date Type Department Care Team (Late st Contact Info) Description 11/17/2022 Refill [facility] Cardiology [address] [place] [id number] Meryl Wellington, DRAMATIC DIRECTOR [address] [place] [address] Benign hypertensive heart disease with heart failure (CMS/HCC) Social History Tobacco Use Types Packs/Day [...] as of this encounter Visit Diagnoses Diagnosis Benign hypertensive heart disease with heart failure (CMS/HCC) documented in this encounter Care Teams Missile Facilities Repairer Relationship Specialty Start Date End Date Ole Yang MD [address] [place] [address] PCP - General 10/07/21 documented as of this encounter
--- OUTSIDE RECORDS SUMMARY | 2024-09-26 14:37 | XMS_ITS | Clinical Summary ---
Author Organization [facility] Address [address] [place] [address] Care Team Providers Care Artist Consultant Name Role Phone Ole Yang MD Primary Care Provider [phone] Allergies No known active allergies Medications apixaban (Eliquis) 5 mg tablet Take 1 tablet twice a day by oral route for 90 days. Active aspirin 81 mg EC tablet Take 1 tablet every day by oral route. Active atorvastatin (Lipitor) 80 mg tablet Take 1 tablet by mouth at bedtime. Active bumetanide (Bumex) 1 mg tablet if needed. Active cholecalciferol (Vitamin D-3) 50 MCG (1999 UT) tablet Take 1 tablet every day by oral route. Active LORazepam (Ativan) 0.5 mg tablet TAKE ONE TABLET BY MOUTH EVERY 6 HOURS NEEDED FOR ANXIETY ATTACKS Active methIMAzole (Tapazole) 10 mg tablet Take 5 mg by mouth 4 (four) times a week. Active metoprolol succinate XL (Toprol-XL) 50 mg 24 hr tablet Take 1 tablet by mouth in the morning. Active PARoxetine (Paxil) 20 mg tablet 1 tablet every day by oral route for 90 days. Active spironolactone (Aldactone) 25 mg tabletIndications :Benign hypertensive heart disease with heart failure (CMS/HCC) Take 1 tablet (25 mg) by mouth once daily as directed. 90 tablet 3 3 Active budesonide-glycop yr-formoterol (Breztri Aerosphere) 160-9-4.8 mcg/actuation HFA aerosol inhaler Inhale. Acti ve lisinopril 2.5 mg tablet Take 1 tablet (2.5 mg) by mouth in the morning. 30 tablet 11 4 Active albuterol 90 mcg/actuation inhaler inhale 2 puffs every 4 (four) hours if needed for wheezing 4 Active Rexulti 0.5 mg tablet Take 0.25 mg by mouth in the morning. Active Active Problems Problem Noted Date Diagnosed Date Essential hypertension 08/11/2024 Pure hypercholesterolemia 08/11/2024 Trouble in sleeping 07/07/2024 Chronic kidney disease, stage 3b 02/25/2024 Supplemental oxygen dependent 02/25/2024 Hypoxia 08/26/2023 Dyspnea on exertion 08/07/2023 Cardiomyopathy 08/07/2023 Chronic a-fib 08/07/2023 Memory changes 05/27/2023 Current use of [facility] anticoagulation 023 Age-related osteoporosis wit hout current pathological fracture 07/28/2022 12/30/2022 Chronic systolic dysfunction of left ventricle 0 07/28/2022 12/30/2022 Diplopia 07/28/2022 12/30/2022 Frequent falls 07/28/2022 12/30/2022 Impaired fasting glucose 07/28/2022 023 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 RTC after testing Status post biventricular cardiac pacemaker inse rtion 11/28/2020 Elevated liver enzymes 08/24/2020 Panlobular emphysema 05/17/2020 Assessment & Plan (07/08/2023 11:16 AM EDT): If cardiac studies are without any acute concerns she may need to F/U with pulmonary for evaluation of CLARIE History of stroke without residual deficits 09/2020 Hyperthyroidism 02/23/2018 Chronic obstructive pulmonary disease 06/11/2017 Inflammation of joint of right shoulder region 0 09/22/2016 Mild intermittent asthma 09/12/2016 Pulmonary function studies abnormal 09/12/2016 Tear of right rotator cuff 09/12/2016 Internal derangement of right shoulder 7 Primary osteoarthritis 08/05/2016 Primary ovarian failure 08/05/2016 Non-rheumatic mitral regurgitation 08/05/2016 Assessment & Plan (07/08/2023 11:12 AM EDT): Repeat echocardiogram to assess MR in light of worsening CLAIRE Atherosclerosis of coronary artery without angin a pectoris 08/05/2016 12/30/2022 Assessment & Plan (07/08/2023 11:14 AM EDT): Lexiscan stress test to assess cardiac perfusion for any significant defect that would warrant a cardiac cath with possible PCI for concerning stenosis Continue GDMT- ASA, lipitor toprol Inguinal pain 10/04/2015 Anxiety 09/24/2015 Cerebrovascular accident 09/24/2015 Coronary artery disease invo lving [place] coronary artery of [place] heart without angina pectoris 09/24/2015 Hematoma of groin 09/24/2015 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 Continue lisinopril, toprol and aldactone Persistent atrial fibrillation 09/24/2015 Assessment & Plan (07/08/2023 11:11 AM EDT): Remains on eliquis without any bleeding tendencies S/P AV node ablation and INSTRUCTOR PROGRAMMABLE CONTROLLERS-D is 98% Bi-V pacing per device interrogation Resolved Problems Problem Noted Date Diagnosed Date Resolved Date ICD (implantable cardioverte r-defibrillator) in place 07/28/2022 12/30/2022 01/25/2024 Assessment & Plan (07/08/2023 11:15 AM EDT): Device interrogations reviewed Device check q 6 months Mitral valve regurgitation 09/24/2015 0 07/08/2023 Encounters Date Type Department Care Team Description 09/21/2024 Telephone [facility] [address] [place] [address] Ann Marie Del Valle MA 09/20/2024 Telephone [facility] [address] [place] [address] Pita Love MA 08/11/2024 3:45 PM EDT Ancillary Procedure [facility] [address] [place] [phone] Pre-operative cardiovascular examination, ICD in place 08/11/2024 1:20 PM EDT Office Visit [facility] [address] [place] [address] Balwinder Sanchez MD Dyspnea on exertion (Primary Dx); Atherosclerosis of [place] coronary artery of [place] heart without angina pectoris; Dilated cardiomyopathy (CMS/HCC); Chronic systolic dysfunction of left ventricle; Chronic a-fib (CMS/HCC); Non-rheumatic mitral regurgitation; Status post biventricular cardiac pacemaker insertion; Chronic kidney disease, stage 3b (CMS/HCC); Hyperthyroidism; Essential hypertension; Pure hypercholesterolemia 07/21/2024 3:00 PM EDT Ancillary Procedure [facility] [address] [place] [address] Pre-operative cardiovascular examination, ICD in place 07/21/2024 Orders Only [facility] [address] [place] [address] Keanu Islas MD 07/21/2024 Orders Only [facility] [address] [place] [address] Soni Nowak MD 07/19/2024 2:00 PM EDT Ancillary Procedure [facility] [address] [place] [phone] Encounter for implantable defibrillator reprogramming or check from Last 3 Months Immunizations Immunization Administration Dates Next Due Influenza, High Dose Seasona l, Preservative Free 01/17/2021,12/02/2017,12/11/2016 Influenza, injectable, quadrivalent 01/06/2014 Influenza, injectable, quadr ivalent, preservative free 11/13/2014 Influenza, seasonal, injectable 12/09/2012 Influenza, trivalent, adjuvanted 01/10/2020,11/16 Moderna 12 YR UP Vaccine BiValent Booster 2020,04/24/2020,03/26/2020 Pneumococcal Conjugate PCV 13 06/25/2018 Pneumococcal Polysaccharide PPV23 02/23/2019,02/2007 Family History Medical History Relation Name Comments Coronary artery disease Brother Hypertension Brother Kidney cancer Brother Colon cancer Father Relation Name Status Comments Brother Father Social History Tobacco Use Types Packs/Day Years Used Date Smoking Tobacco: Never Smokeless Tobacco: Never Tobacco Cessation:Counseling Given: Not Answered Alcohol Use Standard Drinks/Week Comments Not Currently [...] Sign Reading Time Taken Comments Blood Pressure 115/70 08/11/2024 1:19 PM EDT Pulse 70 08/11/2024 1:19 PM EDT Temperature - - Respiratory Rate 12 07/08/2023 10:10 AM EDT Oxygen Saturation 96% 08/11/2024 1:19 PM EDT on 3L O2 Inhaled Oxygen Concentration - - Weight 78.9 kg (174 lb) 08/11/2024 1:19 PM EDT Height 170.2 cm (5' 7 ) 08/11/2024 1:19 PM EDT Body Mass Index 27.25 08/11/2024 1:19 PM EDT Plan of Treatment Health Maintenance Due Date Last Done Comments Medicare Annual Wellness (AWV) 1942 Depression Screening 1954 Adult Tetanus 1964 Fall Risk Screening 08/17/2007 COVID-19 Vaccine ( season) 2024 12/10/2023, 01/01/2023, 12/10/2021, Additional history exists Influenza Vaccine (#1) 2024 , 11/26/2022, 12/10/2021, Additional history exists Pneumococcal Vaccine: 50+ Years Completed 02/23/2019, 06/25/2018, 08/17/2007 Zoster Vaccines Completed 01/01/2023, 04/16/2022 HIB Vaccines Aged Out No longer eligi ble based on patient's age to complete this topic HPV Vaccines Aged Out No longer eligi ble based on patient's age to complete this topic IPV Vaccines Aged Out No longer eligi ble based on patient's age to complete this topic Meningococcal B Vaccine Aged Out No l onger eligible based on patient's age to complete this topic Meningococcal Vaccine Aged Out No kalee indra eligible based on patient's age to complete this topic Rotavirus Vaccines Aged Out No longer eligible based on patient's age to complete this topic Medical Devices Implanted Type Area Supervisor Pyrotechnic Loading Device Identifier Shelf Expiration Date Model / Serial / Lot [id number] Vigilant X4 Electro Winning Operator-D [id number] Implanted:08/21 (Quantity not on file) INSTRUCTOR PROGRAMMABLE CONTROLLERS-D ICD G247 VIGILAN T X4 INSTRUCTOR PROGRAMMABLE CONTROLLERS-D / [id number] / [id number] [place] 4-Front S [id number] Implanted:08/21 (Quantity not on file) Lead 0672 RELIANC E 4-FRONT S / [id number] / [id number] Acuity X4 Straight [id number] Implanted:08/21 (Quantity not on file) Lead 4671 ACUITY X4 STRAIGHT / [id number] / Procedures Procedure Name Priority Date/Time Associated Diagnosis Comments CARDIAC DEVICE CHECK CHECK - REMOTE Routine 09/02/2024 8:19 PM EDT Pre-operative cardiovascular examination, ICD in place CARDIAC DEVICE CHECK CHECK - REMOTE Routine 08/01/2024 1:16 PM EDT Pre-operative cardiovascular examination, ICD in place CARDIAC DEVICE CHECK - REMOTE - ICD Routine 07/21/2024 12:00 AM EDT CARDIAC DEVICE CHECK - REMOTE - ICD Routine 07/21/2024 12:00 AM EDT CARDIAC DEVICE CHECK - IN CLINIC - ICD BIVENTRICULAR CHAMBER W/ PROG Routine 07/19/2024 5:38 PM EDT Encounter for implantable defibrillator reprogramming or check CARDIAC DEVICE CHECK CHECK - REMOTE Routine 07/01/2024 10:41 AM EDT Pre-operative cardiovascular examination, ICD in place from Last 3 Months Results * CARDIAC DEVICE CHECK - REMOTE - ICD (09/02/2024 8:19 PM EDT) Only the most recent of3 resultswithin the time period is included. BSA 1.93 m2 [facility] us Gumaro Vega MD CV IMPLANTABLE CARDIAC DEVICE RI OCEDURES Final Result [facility] * Cardiac device check - Remote ICD (07/21/2024 12:00 AM EDT) Only the most recent of2 resultswithin the time period is included. Anatomical Region Laterality Modality Other 07/21/2024 us Keanu Islas MD CV IMPLANTABLE CARDIAC DEVICE RI OCEDURES Final Result * CARDIAC DEVICE CHECK - IN CLINIC - ICD BIVENTRICULAR CHAMBER W/ PROG (07/19/2024 5:38 PM EDT) Anatomical Region Laterality Modality Other Narrative 07/28/2024 1:04 PM EDT By using the attestations below, the signing clinician agrees that I have read and verify that the documentation has been personally reviewed by me and ensure that the documentation accurately reflects the encounter. Routine EP device follow up as per schedule. Please see attached note us Keanu Islas MD CV IMPLANTABLE CARDIAC DEVICE RI OCEDURES Final Result from Last 3 Months Insurance MEDICARE GENERIC COMMERCIAL Care Teams Artist Consultant Relationship Specialty Start Date End Date Ole Yang MD [address] [facility] [address] [place] [address] PCP - General 10/07/21
--- OUTSIDE RECORDS SUMMARY | 2024-09-26 14:37 | XMS_ITS | Encounter Summary ---
Author Organization [facility] Address [address] [place] [address] Care Team Providers Care Tunnel Elastic Operator Lockstitch Name Role Phone Ole Yang MD Primary Care Provider [phone] Encounter Details Date Type Department Care Team (Late st Contact Info) Description 07/21/2024 Orders Only [facility] [address] [place] [address] Keanu Islas MD [address] [place] [address] Social History Tobacco Use Types [...] - ICD Routine 07/21/2024 12:00 AM EDT documented in this encounter Results * Cardiac device check - Remote ICD (07/21/2024 12:00 AM EDT) Anatomical Region Laterality Modality Other 07/21/2024 Keanu Islas MD CV IMPLANTABLE CARDIAC DEVICE GA OCEDURES Final Result documented in this encounter Visit Diagnoses Not on filedocumented in this encounter Care Teams Tunnel Elastic Operator Lockstitch Relationship Specialty Start Date End Date Ole Yang MD [address] [id number] PCP - General 10/07/21 documented as of this encounter
--- OUTSIDE RECORDS SUMMARY | 2024-09-26 14:37 | XMS_ITS | Encounter Summary ---
Author Organization [facility] Address [address] [place] [address] Care Team Providers Care Brake Reliner Name Role Phone Ole Yang MD Primary Care Provider [phone] Encounter Details Date Type Department Care Team (Late st Contact Info) Description 09/21/2024 Telephone [facility] [address] [place] [address] Ann Marie Del Valle MA Social History Tobacco Use Types Packs/Day Years Used Date Smoking Tobacco: Never Smokeless Tobacco: Never Alcohol Use Standard Drinks/Week Comments Not Currently 0 (1 standard drink = 0.6 oz pur e alcohol) PR Safety & Environment Answer Date Rec orded [...] encounter Miscellaneous Notes * Telephone Encounter - Ann Marie Del Valle MA - 09/21/2024 10:35 AM EDT MD Pita Rivera MA Good lipids and AST ALT. Continue current medication. Recheck in 6 months Advised patient of lab results per Dr. Sanchez. Patient verbalized understanding. documented in this encounter Plan of Treatment Not on file documented as of this encounter Visit Diagnoses Not on filedocumented in this encounter Care Teams Brake Reliner Relationship Specialty Start Date End Date Ole Yang MD 112 [facility] [address] [place] [address] PCP - General 10/07/21 documented as of this encounter
[2024-09-26 14:57] LABS: Glucose Urine UA NEGATIVE (NEGATIVE)
== END 2024-09-26 14:34 | disposition home or self-care (01) ==
LOC: LAB 14:33
PROVIDERS: PCP Internal Medicine; Visit Provider Internal Medicine
DX: R35.0 Frequency of micturition (principal); R30.0 Dysuria; R41.82 Altered mental status, unspecified
CPT/HCPCS: 81003; 87086

== ENCOUNTER 2024-10-07 10:06 | Emergency (ER) | payer MEDICARE, OTHER, SELFPAY ==
[2024-10-07 10:13] VITALS: BP 120/87; PULSE 70; TEMP 36.8; O2SAT 98; BMI 26.9
--- OUTSIDE RECORDS SUMMARY | 2024-10-07 10:31 | XMS_ITS | Encounter Summary ---
Author Organization [facility] Address [address] [place] [address] Care Team Providers Care Shoe Shanker Name Role Phone Ole Yang MD Primary Care Provider [phone] Encounter Details Date Type Department Care Team (Late st Contact Info) Description 06/20/2024 Orders Only [facility] [address] [place] [address] Soni Nowak MD [address] [place] [address] Social History Tobacco Use Types [...] Information Value Date Recorded Sex Assigned at Choose not to disclose 9:44 PM EDT Legal Sex Female 11:46 PM EDT Gender Identity Choose not to disclose 9:44 PM EDT Sexual Orientation Choose not to disclose 2024 9:44 PM EDT documented as of this encounter Plan of [...] on filedocumented in this encounter Care Teams Shoe Shanker Relationship Specialty Start Date End Date Ole Yang MD [address] [id number] PCP - General 10/07/21 documented as of this encounter
--- OUTSIDE RECORDS SUMMARY | 2024-10-07 10:31 | XMS_ITS | Clinical Summary ---
Author Organization [facility] Address [address] [place] [address] Care Team Providers Care Vacuum Evaporation Operator Name Role Phone Ole Yang MD Primary Care Provider [phone] Allergies No known active allergies Medications apixaban [...] 08/07/2023 Memory changes 05/27/2023 Current use of continuous churn buttermaker anticoagulation 023 Age-related osteoporosis wit hout current [...] Assessment & Plan (07/08/2023 11:11 AM EDT): [facility] III, currently appears euvolemic and weight is [...] accident 09/24/2015 Coronary artery disease invo lving [place] coronary artery of [place] heart without angina pectoris 09/24/2015 Hematoma of [...] bleeding tendencies S/P AV node ablation and FISHER LINE-D is 98% Bi-V pacing per device interrogation Resolved Problems Problem Noted Date Diagnosed Date Resolved Date ICD (implantable cardioverte r-defibrillator) in place 07/28/2022 12/30/2022 01/25/2024 Assessment & Plan (07/08/2023 11:15 AM EDT): Device interrogations reviewed Device check q 6 months Mitral valve regurgitation 09/24/2015 0 07/08/2023 Encounters Date Type Department Care Team Description 09/21/2024 7:30 AM EDT Ancillary Procedure [facility] [address] [place] [address] Pre-operative cardiovascular examination, ICD in place 09/21/2024 Orders Only [facility] [address] [place] [address] Keanu Islas MD 09/21/2024 Telephone [facility] [address] [facility] [place] [address] Ann Marie Del Valle MA 09/20/2024 Telephone [facility] [address] [place] [facility] [place] [address] Pita Love MA 08/11/2024 3:45 PM EDT Ancillary Procedure [facility] [address] [place] [address] Pre-operative cardiovascular examination, ICD in place 08/11/2024 1:20 PM EDT Office Visit [facility] [address] [facility] [place] [address] Balwinder Sanchez MD Dyspnea on exertion (Primary Dx); Atherosclerosis of [place] coronary artery of [place] heart without angina pectoris; Dilated cardiomyopathy (CMS/HCC); Chronic systolic dysfunction of left ventricle; Chronic a-fib (CMS/HCC); Non-rheumatic mitral regurgitation; Status post biventricular cardiac pacemaker insertion; Chronic kidney disease, stage 3b (CMS/HCC); Hyperthyroidism; Essential hypertension; Pure hypercholesterolemia 07/21/2024 3:00 PM EDT Ancillary Procedure [facility] [address] [place] [address] Pre-operative cardiovascular examination, ICD in place 07/21/2024 Orders Only [facility] [address] [place] [address] Keanu Islas MD 07/21/2024 Orders Only [facility] [address] [place] [address] Soni Nowak MD 07/19/2024 2:00 PM EDT Ancillary Procedure [place] [address] [place] [address] Encounter for implantable defibrillator reprogramming or check [...] not to disclose 2024 9:44 PM EDT Last Filed Vital Signs Vital Sign Reading [...] this topic Medical Devices Implanted Type Area Single Stroke Preformer Device Identifier Shelf Expiration Date Model / Serial / Lot G247 Vigilant X4 Private Duty Nurse-D [id number] Implanted:08/21 (Quantity not on file) FISHER LINE-D ICD G247 VIGILAN T X4 FISHER LINE-D / [id number] / [id number] [place] 4-Front S [id number] Implanted:08/21 (Quantity not on file) Lead 0672 RELIANC E 4-FRONT S / [id number] / [id number] Acuity X4 Straight [id number] Implanted:08/21 (Quantity not on file) Lead 4671 ACUITY X4 STRAIGHT / [id number] / Procedures Procedure Name Priority Date/Time Associated Diagnosis Comments CARDIAC DEVICE CHECK CHECK - REMOTE Routine 09/29/2024 4:58 PM EDT Pre-operative cardiovascular examination, ICD in place CARDIAC DEVICE CHECK - REMOTE - ICD Routine 09/21/2024 12:00 AM EDT CARDIAC DEVICE CHECK CHECK - REMOTE Routine [...] reprogramming or check from Last 3 Months Results * CARDIAC DEVICE CHECK - REMOTE - ICD (09/29/2024 4:58 PM EDT) Only the most recent of3 resultswithin the time period is included. us Gumaro Vega MD CV IMPLANTABLE CARDIAC DEVICE IN OCEDURES Final Result [facility] * Cardiac device check - Remote ICD (09/21/2024 12:00 AM EDT) Only the most recent of3 resultswithin the time period is included. Anatomical Region Laterality Modality Other 09/21/2024 us Keanu Islas MD CV IMPLANTABLE CARDIAC DEVICE IN OCEDURES Final Result * CARDIAC DEVICE CHECK [...] as per schedule. Please see attached note Keanu Islas MD CV IMPLANTABLE CARDIAC DEVICE IN OCEDURES Final Result from Last 3 Months Insurance MEDICARE GENERIC COMMERCIAL Care Teams Vacuum Evaporation Operator Relationship Specialty Start Date End Date Ole Yang MD [address] [address] PCP - General 10/07/21
--- OUTSIDE RECORDS SUMMARY | 2024-10-07 10:31 | XMS_ITS | Clinical Summary ---
Author Organization [employer] [facility] Address [id number] [address] [place] [address] Care Team Providers Care Seal Delivery Vehicle Team Technician Name Role Phone Ole Yang MD Primary Care Provider [phone] Allergies No known active allergies Medications cholecalciferol , vitamin D3, 10 mcg (400 unit) capsule 1 (one) time each day at the same time. Active multivitamin,tx -eijk-Cd-RD-min 27-0.4 mg tablet 1 (one) time each [...] 01/01/2023, 02/2022 Medical Devices Implanted Type Area Minesweeping Officer Device Identifier Shelf Expiration Date Model / Serial / Lot Icd ICD [employer] VIGILANT [id number] / [id number] / Insurance MEDICARE COMMERCIAL Care Teams Seal Delivery Vehicle Team Technician Relationship Specialty Start Date End Date Ole Yang MD [address] [facility] [address] [place] [address] PCP - General Internal Medicine 08/13/22
--- OUTSIDE RECORDS SUMMARY | 2024-10-07 10:31 | XMS_ITS | Encounter Summary ---
Author Organization [facility] Address [address] [place] [address] Care Team Providers Care Edger Machine Operator Name Role Phone Ole Yang MD Primary Care Provider [phone] Encounter Details Date Type Department Care Team (Late st Contact Info) Description 07/21/2024 Orders Only [facility] [address] [place] [address] Keanu Islas MD [address] [place] [address] Social History Tobacco Use Types [...] Keanu Islas MD CV IMPLANTABLE CARDIAC DEVICE NM OCEDURES Final Result documented in this encounter Visit Diagnoses Not on filedocumented in this encounter Care Teams Edger Machine Operator Relationship Specialty Start Date End Date Ole Yang MD [address] [address] PCP - General 10/07/21 documented as of this encounter
--- OUTSIDE RECORDS SUMMARY | 2024-10-07 10:31 | XMS_ITS | Encounter Summary ---
Author Organization [facility] Address [address] [place] [address] Care Team Providers Care Machine Designer Name Role Phone Ole Yang MD Primary Care Provider [phone] Encounter Details Date Type Department Care Team (Late st Contact Info) Description 09/21/2024 Orders Only [facility] [address] [place] [address] Keanu Islas MD [address] [place] [address] Social History Tobacco Use Types [...] - ICD Routine 09/21/2024 12:00 AM EDT documented in this encounter Results * Cardiac device check - Remote ICD (09/21/2024 12:00 AM EDT) Anatomical Region Laterality Modality Other 09/21/2024 Keanu Islas MD CV IMPLANTABLE CARDIAC DEVICE NV OCEDURES Final Result documented in this encounter Visit Diagnoses Not on filedocumented in this encounter Care Teams Machine Designer Relationship Specialty Start Date End Date Ole Yang MD [address] [address] PCP - General 10/07/21 documented as of this encounter
--- NOTE | 2024-10-07 10:32 | XR_ITS ---
The [address] [address] Patient Name: SALINA MORENO MRN: [id number] date: 1940 Sex: F Assigned Patient Location: ER Current Patient Location: .[facility] Accession/Order Number: [id number] Exam Date: 10/07/2024 11:05 Report Date: 10/07/2024 11:51 At the request of: MARY BETH LEON DO Procedure: XR hip RT 2V w/ pelvis XR hip RT 2V w/ pelvis 10/07/2024 11:14 AM SIGNS AND SYMPTOMS: Low back and right hip pain PROTOCOL: Frontal radiograph the pelvis with frontal and frog-leg views of the right hip COMPARISON: None FINDINGS: The bony ring of the pelvis is intact. Degenerative changes are noted in the lumbar spine and sacroiliac joints left greater than right. There is no fracture or dislocation. There is enthesophyte formation along the greater trochanters. Degenerative changes are noted in the symphysis pubis. XR/XR hip RT 2V w/ pelvis IMPRESSION: No fracture or dislocation. Degenerative changes are noted as above, greatest in the left hip. Impression dictated by: Jj Wilson M.D. 10/07/2024 11:51 AM Dictation [facility] Electron[facility] authenticated by: [id number] Y Date: 10/07/2024 11:51
--- NOTE | 2024-10-07 10:32 | XR_ITS ---
The [place] [id number] Patient Name: SALINA MORENO MRN: [id number] date: 1940 Sex: F Assigned Patient Location: ER Current Patient Location: ED.[facility] Accession/Order Number: [id number] Exam Date: 10/07/2024 11:05 Report Date: 10/07/2024 11:53 At the request of: MARY BETH LEON DO Procedure: XR lumbar spine 2-3V XR lumbar spine 2-3V 10/07/2024 11:14 AM SIGNS AND SYMPTOMS: ^right leg/back PROTOCOLS: Frontal and lateral radiographs of the lumbar spine COMPARISON: None FINDINGS: There is 6 mm of anterolisthesis of L4 upon L5. There is moderate to severe disc height loss at T11-T12, T12-L1, L1-L2, L4-L5, and L5-S1. Body heights are preserved. There is no fracture or destructive lesion. Degenerative changes are noted in the sacroiliac joints. Atherosclerotic changes are present in the abdominal aorta. XR/XR lumbar spine 2-3V IMPRESSION: No acute bony injury. There is 6 mm of anterolisthesis of L4 upon L5. Significant multilevel degenerative changes noted as above. Impression dictated by: Jj Wilson M.D. 10/07/2024 11:53 AM Dictation Location: [place] [address] Electronically authenticated by: [id number] Y Date: 10/07/2024 11:53
--- OUTSIDE RECORDS SUMMARY | 2024-10-07 10:32 | XMS_ITS | Encounter Summary ---
Author Organization [employer] [facility] Address [id number] [address] [place] [address] Care Team Providers Care Import/Export Agent Name Role Phone Ole Yang MD Primary Care Provider [phone] Encounter Details Date Type Department Care Team (Late st Contact Info) Description 11/03[facility]2022 [facility] [address] [place] [address] Bozena Galdamez Social History Tobacco Use Types [...] on filedocumented in this encounter Care Teams Import/Export Agent Relationship Specialty Start Date End Date Ole Yang MD 112 [facility] [address] [place] [id number] PCP - General Internal Medicine 08/13/22 documented as of this encounter
--- OUTSIDE RECORDS SUMMARY | 2024-10-07 10:32 | XMS_ITS | Encounter Summary ---
Author Organization [facility] Address [address] [place] [address] Care Team Providers Care Liturgical Music Director Name Role Phone Ole Yang MD Primary Care Provider Reason for Visit * Reason Comments Med Refill Encounter Details Date Type Department Care Team (Late st Contact Info) Description 11/17/2022 Refill [facility] Cardiology [address] [place] [phone] Meryl Wellington, [employer] [address] [place] [address] Benign hypertensive heart disease with [...] (CMS/HCC) documented in this encounter Care Teams Liturgical Music Director Relationship Specialty Start Date End Date Ole Yang MD [address] [facility] [address] [place] [address] PCP - General 10/07/21 documented as of this encounter
--- OUTSIDE RECORDS SUMMARY | 2024-10-07 10:32 | XMS_ITS | Encounter Summary ---
Author Organization [facility] tem Address [id number] [address] [place] [address] Care Team Providers Care Mattress Stripper Name Role Phone Ole Yang MD Primary Care Provider [phone] Encounter Details Date Type Department Care Team (Late st Contact Info) Description [facility] [address] [facility] [address] [place] [address] Starla Barron Social History Tobacco Use Types [...] on filedocumented in this encounter Care Teams Mattress Stripper Relationship Specialty Start Date End Date Ole Yang MD [address] [phone] PCP - General Internal Medicine 08/13/22 documented as of this encounter
--- OUTSIDE RECORDS SUMMARY | 2024-10-07 10:39 | XMS_ITS | CCD ---
Author Organization [facility] CliniSysd Care Team Providers Care Automotive Window Tinter Name Role Phone KEANU ISLAS Admitting Unavailable [...] Unavailable ZIEBAMAIRANI, DR JOEL Petersen Consulting Unavailable HEMMER, DR DIPTI Montesinos Attending Unavailable HEMMER, DR DIPTI Montesinos Consulting Unavailable CHERY, SHELDON Attending Unavailable CHERY, SHELDON Admitting Unavailable CHERY, SHELDON Consulting Unavailable EMILY, DR GRANT Primary Care Unavailable MICHELLE, AHMAD Attending Unavailable YNAG, DR GRANT Primary Care Unavailable MICHELLE, AHMAD Admitting Unavailable MICHELLE, AHMAD Consulting Unavailable CHERY, SHELDON Attending Unavailable CHERY, SHELDON Admitting Unavailable EMILY, DR GRANT Primary Care Unavailable ZIEBAMAIRANI, DR JOEL Petersen Consulting Unavailable CHERY, SHELDON Consulting Unavailable ELIUD, KEANU Admitting Unavailable KEANU ISLAS Attending Unavailable EMILY, DR GRANT Primary Care Unavailable SINA, DR JOEL Petersen Consulting Unavailable ELIUD, KEANU Consulting Unavailable CHERY, SHELDON Consulting Unavailable CHERY, SHELDON Attending Unavailable CHERY, SHELDON Admitting Unavailable EMILY, DR GRANT Primary Care Unavailable ELIEL NICHOLS Attending Unavailable OLE YANG Referring Unavailable OLE YANG Primary Care Unavailable Ole Yang MD Unavailable Ole Yang MD Primary Care Provider Keon MANAGER RESEARCH DEVELOPMENT, Bea Unavailable Debora Saenz RN Unavailable [phone] Ole Yang MD Primary Care Provider [facility], [place] Unavailable Unavailable Michael Zapien Attending Provider [phone] Luis E Soares MD Attending Provider [phone] [facility], [place] Unavailable OLE YANG Attending Unavailable MICHELLE, TERI F Attending Unavailable DIPTI ANDERSON Attending Unavailable HEMMIHAELA, DIPTI Montesinos Attending Unavailable OLE YANG Attending Unavailable OEL YANG Attending Unavailable HEMDIPTI CHAIREZ Attending Unavailable MICHELLE, AHMAD F Attending Unavailable MICHELLE, AHMAD F Referring Unavailable DIPTI ANDERSON Attending Unavailable Ole Yang II Attending Provider Luis E Soares Admitting Unavailable Luis E Soares Attending Unavailable Ole Yang Attending Unavailable Ole Yang Admitting Unavailable ELIUD, KEANU Referring Unavailable ELIUD, KEANU Referring Unavailable ELIUD, KEANU Referring Unavailable DENISE, CLAUDIO Attending Unavailable EDNISE, CLAUDIO Attending Unavailable ELIUD, KEANU Referring Unavailable ELIUD, KEANU Referring Unavailable ELIUD, KEANU Referring Unavailable ELIUD, KEANU Referring Unavailable ELIUD, KEANU Referring Unavailable DANIKA, NILE Referring Unavailable DANIKA, NILE Referring Unavailable ELIUD, KEANU Referring Unavailable ELIUD, KEANU Referring Unavailable ELIUD, KEANU Referring Unavailable Medications Current Medications Medication Drug Class(es) Dates Sig (Normalized) Sig (Original) [id number] 200 actuat albuterol 0.09 mg/actuat metered dose [...] (Lipitor) 80 MG tablet Indications: Atherosclerosis of [place] coronary artery of [place] heart without angina pectoris Take 1 tablet (80 mg) by mouth Daily 100 tablet 3 03/02/2024 Active Start: 12-11-2023 atorvastatin ( Lipitor) 80 MG tablet Indications: Atherosclerosis of [place] coronary artery of [place] heart without angina pectoris (CMS/HCC) TAKE 1 TABLET EVERY MORNING 100 tablet 3 12/11/2023 Active Start: 02-18-2023 End: 02-17-2023 take 1 tablet by mouth in the morning atorvastatin (Lipitor) 80 MG tablet Indications: Atherosclerosis of [place] coronary artery of [place] heart without angina pectoris (CMS/HCC) Take 1 tablet (80 mg) by mouth in the morning. 100 tablet 3 02/18/2023 Active Start: 08-03-2022 take 1 tablet by christie th in the morning atorvastatin (Lipitor) 80 MG tablet Indications: Atherosclerosis of [place] coronary artery of [place] heart without angina pectoris (CMS/HCC) Take 1 tablet (80 mg) by mouth in the morning. 100 tablet 3 02/18/2023 Active brexpiprazole 0.5 mg oral tablet (19 sources) Atypical Antipsychotic Start: 09-06-2024 End: 09-14-2024 Brexpiprazole (Rexulti) 0.5 MG tablet Indications: Dementia with behavioral disturbance (HCC) Take .25 mg daily 15 tablet 3 09/06/2024 09/14/2024 Discontinued (Dose adjustment) Start: 07-18-2024 take 0.25 mg by mout h once daily Brexpiprazole (Rexulti) 0.5 MG tablet [...] (20 sources) Corticosteroid, beta2-Adrenergic Agonist Start: 03-16-2024 End: 09-14-2024 take 2 puff(s) by inhalation in the morning Yakfzjd-Laaldigskxg-Goidvnqdhw (Breztri Aerosphere) 160-9-4.8 MCG/ACT aerosol Indications: Pulmonary emphysema, unspecified emphysema type ([facility]) Inhale 2 puffs in the morning and 2 puffs before bedtime. 10.7 g 3 03/16/2024 09/14/2024 Discontinued Budeson-Glycopyr rol-Formoterol (Breztri Aerosphere) 160-9-4.8 MCG/ACT aerosol [...] time Active cholecalciferol 0.05 mg oral capsule (20 sources) Vitamin D take 1 capsule by [...] oral tablet (20 sources) Benzodiazepine Start: 07-07-2024 End: 10-14-2024 take 0.5 tablet by mouth at bedtime LORazepam (Ativan) 0.5 MG tablet Indications: Anxiety Take 0.5 tablets (0.25 mg) by mouth at bedtime 09/14/2024 10/14/2024 Active Start: 08-21-2021 End: 05-12-2024 take 1 [...] sources) Thyroid Hormone Synthesis Inhibitor Start: 06-07-2024 End: 09-14-2024 methIMAzole (Tapazole) 10 MG tablet Indications: Hyperthyroidism TAKE ONE-HALF (1/2) TABLET ON THURSDAY, THURSDAY, THURSDAY AND THURSDAY 26 tablet 3 06/07/2024 09/14/2024 Discontinued (Dose adjustment) Start: 03-02-2024 methIMAzole (T apazole) 10 MG tablet Indications: Hyperthyroidism (CMS/HCC) Take 1/2 tablet on Thursday 27 tablet 03/02/2024 Active Start: 12-11-2023 methIMAzole (T apazole) 10 MG tablet Indications: Hyperthyroidism (CMS/HCC) TAKE 1/2 TABLET ON THURSDAY, THURSDAY, THURSDAY, AND THURSDAY 27 tablet 3 12/11/2023 Active take 1 tablet by christie th once daily methIMAzole (Tapazole) 5 MG tablet Take 5 mg by mouth Daily Active methIMAzole (Tap azole) 10 MG tablet [...] (2 sources) Opioid Agonist Start: 01-28-2023 End: 12-27-2023 take 5 mL by mouth every six [...] angina pectoris; Translations: [Atherosclerotic heart disease of [place] coronary artery without angina pectoris] Onset: 09-24-2015 [...] Onset: 04-27-2023 Episodic Other lower respiratory disease (6 sources) Other forms of dyspnea; Translations: [OTHER FORMS OF DYSPNEA] Onset: 06-18-2021 Episodic Other skin disorders (4 sources) Nail deformity; Translations: [Other nail disorders] 09-14-2024 Episodic Laury-; endo-; and myocarditis; cardiomyopathy (except that caused by tuberculosis or sexually transmitted disease) (20 sources) Cardiomyopathy; Translations: [Cardiomyopathy, unspecified] Onset: 08-07-2023 09-01-2023 Chronic Residual codes; unclassified (2 sources) Localized edema; Translations: [Localized edema] 02-11-2023 Episodic Residual codes; unclassified (11 sources) Difficulty sleeping ; Translations: [Sleep disorder, [...] Resolved: 06-02-2024 05-27-2023 Other aftercare (1 source) retail seasonal specialist (current) use of aspirin; Translations: [MEASUREMENT ADVISOR 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 ASPIRIN] Onset: 06-18-2021 Episodic Other aftercare (1 source) Other care home (current) drug therapy; Translations: [OTH NURSING HOME CURRENT DRUG THERAPY] Onset: 06-18-2021 Episodic Other aftercare (20 sources) Long-term current use of anticoagulant; Translations: [correction (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] Onset: 02-11-2023 02-11-2023 [...] 07-28-2022 07-28-2022 Episodic Other lower respiratory disease (3 sources) [...] Test Name Value Interpretation Reference Range Facility ALL URINALYSISon 09-26-2024 BILIRUBIN URINE Negative NEGATIVE [facility] BLOOD URINE Negative NEGATIVE [facility] Clarity (U) CLEAR CLEAR [facility] Color (U) LT. YELLOW YELLOW [facility] GLUCOSE URINE UA Negative NEGATIVE mg/dL [facility] Interpretation and review of laboratory results Abnormal [facility] Ketones Ql (U) Negative NEGATIVE mg/dL [facility] Leukocyte esterase Test strip Ql (U) Negative NEGATIVE [facility] NITRITE URINE Negative NEGATIVE [facility] pH (U) 7.0 [pH] 5.0 - [facility] PROTEIN URINE Negative NEG/TRACE mg/dL [facility] SPECIFIC GRAVITY URINE <=1.005 Abnormal 1.005 - 1.025 [facility] UROBILINOGEN URINE 0.2 EU/dL 0.2 - 1.0 EU/dL [facility] Urine Cultureon 09-26-2024 Bacteria identified Cx Nom (U) 30,000 colonies/ml mixed bacterial skin contaminants 2 Days PERFORMED BY: [address] [address] PATHOLOGIST STOCK CAR DRIVER JUANA CLIFFORD M.D. Normal [facility] Comment on above: Performed By: #### C UU #### [place] [id number] [facility] 36on 09-21-2024 36 MD oRsario Rivera MA Good lipids and AST ALT. Continue current medication. Recheck in 6 months Advised patient of lab results per Dr. Sanchez. Patient verbalized understanding. Normal [facility] Orders Onlyon 09-21-2024 Orders Only [id number] Lluvia Moreno 1940 F Date Provider Department Center 09/21/2024 KEANU BARROSO [facility] [place] [facility]AS Family History Problem Relation Age of Onset Colon cancer Father Coronary artery disease Brother Hypertension Brother Kidney cancer Brother Family Status - Relation Status Age at Father Brother [facility] 36on 09-20-2024 36 Regarding lab result s from 08/18/2024: MD Pita Rivera MA Good lipids and AST ALT. Continue current medication. Recheck in 6 months [facility] ALL LIPID PROFILE (FASTING)o n 08-18-2024 CHOL HDL RATIO 2 [facility] Comment on above: 3.3 - 4.4 LOW RISK 4.4 - 7.1 AVERAGE RISK 7.1 - 11.0 MODERATE RISK >11.0 HIGH RISK Cholesterol [Mass/Vol] 110 mg/dL NINF - 200 mg/dL [facility] Cholesterol in HDL [Mass/Vol] 54 mg/dL 40 - 60 mg/dL [facility] Comment on above: > or =60 mg/dl - LOW CARDIOVASCULAR RISK <40 mg/dl - HIGH CARDIOVASCULAR RISK Magnesium [Mass/Vol] 45 mg/dL [facility] Comment on above: <100 mg/dl OPTIMAL 100-129 mg/dl NEAR OR ABOVE OPTIMAL 130-159 mg/dl BORDERLINE HIGH 160-189 mg/dl HIGH >190 mg/dl VERY HIGH Magnesium [Mass/Vol] 11 mg/dL [facility] Triglyceride [Mass/Vol] 55 mg/dL NINF - 150 mg/dL [facility] Jessie 08-18-2024 ALT [Catalytic activity/Vol] 24 U/L 14 - 59 U/L [facility] Kenneth 08-18-2024 AST [Catalytic activity/Vol] 23 U/L 15 - 37 U/L [facility] No Panel Informationon 08-18 [facility] Office Visiton 08-11-2024 Follow-up visit [id number] Lluvia Moreno 1940 F Date Provider Department Center 08/11/2024 [id number] SANCHEZ Jarvis Alina Family History Problem Relation Age of Onset Colon cancer Father Coronary artery disease Brother Hypertension Brother Kidney cancer Brother Family Status - Relation Status Age at Father Brother Level of Service:82875 DE OFFICE/OUTPATIENT ESTABLISHED MOD MDM 30 MIN Reason for Visit and Comments: Atrial Fibrillation [80] Congestive Heart Failure [127] - She was discharged from [facility] a few weeks ago for UTI and NSTEMI. Cardiomyopathy [104] - Due for device check in Jan 2025 - was interrogated a few weeks ago. Coronary Artery Disease [187] Hypertension [764128] Hyperlipidemia [182] Shortness of Breath [837465] Edema [[id number]] - Had RX for Bumex to use PRN but daughter states she hasn't taken it in over 2 years. frequent falls [Other] - Says she fell 3-4 times last month. Normal [facility] URINE CULTURE - FRon 07-25 Interpretation and review of laboratory results Abnormal [facility] - [facility] Urine Culture - FR Testing performed at [facility] URINE CULTURE - [facility] [address] [place] [address] [facility] URINE CULTURE - [facility] O:ESCCOL Isolated [facility] URINE CULTURE - [facility] Urine Culture - FR Surveyor Count [facility] URINE CULTURE - FR >100,000 CFU/ml [facility] URINE CULTURE - [facility] Organism: 1.1 Antibiotic Interpretation SYLVIA Status [facility] URINE CULTURE - FR Amikacin S F Susceptible [facility] URINE CULTURE - FR Amoxicillin/Clavulanate S F Susceptible [facility] URINE CULTURE - [facility] Ampicillin S F Susceptible [facility] URINE CULTURE - FR Aztreonam S F Susceptible [facility] URINE CULTURE - FR Ceftazidime S F Susceptible [facility] URINE CULTURE - [facility] Ceftazidime/Avibactam S F Susceptible [facility] URINE CULTURE - FR Ceftolozane/Tazobactam S F Susceptible [facility] URINE CULTURE - FR Ciprofloxacin S F Susceptible [facility] URINE CULTURE - [facility] Ertapenem S F Susceptible [facility] URINE CULT[facility] - [facility] Gentamicin S F Susceptible [facility] URINE C[facility] - [facility] Levofloxacin S F Susceptible [facility] URINE CULT[facility] Meropenem S F Susceptible [facility]INE [facility] Meropenem/Vaborbactam S F Susceptible [facility] Nitrofurantoin S F Susceptible [facility] Tetracycline S F Susceptible [facility] URINE CULT[facility] Tigecycline S F Susceptible [facility] URINE CULT[facility] - [facility] Tobramycin S F Susceptible [facility] URINE CULT[facility] - [facility] Ampicillin/Sulbactam S F Susceptible [facility] URINE CULT[facility] - [facility] Cefazolin S F Susceptible [facility] URINE C[facility] Cefepime S F Susceptible [facility] URINE C[facility] Ceftriaxone S F Susceptible [facility] URINE CULT[facility] Cefuroxime S F Susceptible [facility] URINE CULTURE - [facility] Piperacillin/Tazobactam S F Susceptible [facility] URINE CULTURE - [facility] Trimethoprim/Sulfa R F Resistant [facility] Urine Cultureon 07-22-2024 Bacteria identified Cx Nom (U) ORGANISM: Escherichia coli (O:ESCCOL) Surveyor Count >100,000 Aerobic SYLVIA Charge ([id number]) - [...] RESISTANT TO ALL B-LACTAM DRUGS. PERFORMED BY: [place] [address] PATHOLOGIST STOCK CAR DRIVER JUANA CLIFFORD M.D. Normal [facility] Comment on above: Performed By: #### C UU #### [address] Urine cultureOrdered By: Greg Soares on 07-22-2024 Bacteria identified Cx Nom (U) Escherichia coli Abnormal [facility] Orders Onlyon 07-21-2024 Orders Only [id number] Lluvia Moreno 1940 F Date Provider Department Center 07/21/2024 [facility] [place] [place] [facility] Family History Problem Relation Age of Onset Colon cancer Father Coronary artery disease Brother Hypertension Brother Kidney cancer Brother Family Status - Relation Status Age at Father Brother Normal [facility] BASIC METABOLIC PANELon 05-18 Calcium [Mass/Vol] 8.9 mg/dL Normal 8.6-10.4 [facility] Comment on above: Performed By: #### 6 399, 00196, 491, 6790 #### [facility] [place] [address] Airport Operations Supervisor: Robbie Garnica MD Chloride [Moles/Vol] 108 mmol/L Normal 98-110 [facility] Comment on above: Performed By: #### 6 399, 74947, 492, 4930 #### [facility] [place] [address] [employer] Supervisor: Robbie Garnica MD CO2 [Moles/Vol] 26 mmol/L Normal 20-32 [facility] Comment on above: Performed By: #### 6 399, 50701, 496, 7600 #### [facility] [place] [address] [employer] Supervisor: Robbie Garnica MD Creatinine [Mass/Vol] 1.15 mg/dL High 0.60-0.95 [facility] Comment on above: Performed By: #### 6 399, 64724, 496, 7600 #### [facility] [place] [address] [employer] Supervisor: Robbie Garnica MD GFR/1.73 sq M.predicted among non-blacks MDRD (S/P/Bld) [Vol rate/Area] 48 mL/min/{1.73_m2} Low > OR = 60 [facility] Comment on above: Performed By: #### 6 399, 86333, 496, 7600 #### [facility] [place] [address] [employer] Supervisor: Robbie Garnica MD Glucose [Mass/Vol] 96 mg/dL Normal 65-99 [facility] Comment on above: Result Comment: Fasting reference interval Performed By: #### 6 399, 72721, 496, 7600 #### [facility] [place] [address] [employer] Supervisor: Robbie Garnica MD Potassium [Moles/Vol] 5.1 mmol/L Normal 3.5-5.3 [facility] Comment on above: Performed By: #### 6 399, 31190, 496, 7600 #### [facility] [place] [address] [employer] Supervisor: Robbie Garnica MD Sodium [Moles/Vol] 142 mmol/L Normal 135-146 [facility] Comment on above: Performed By: #### 6 399, 67703, 496, 7600 #### [facility] of [place] [address] [employer] Supervisor: Robbie Garnica MD Urea nitrogen [Mass/Vol] 33 mg/dL High 7-25 [facility] Comment on above: Performed By: #### 6 399, 33238, 496, 7600 #### [facility] [place] [address] [employer] Supervisor: Robbie Garnica MD Urea nitrogen/Creatinin e [Mass ratio] 29 mg/mg High 08-07 [facility] Comment on above: Performed By: #### 6 399, 48282, 496, 7600 #### [facility] of [place] [address] [employer] Supervisor: Robbie Garnica MD CBC (INCLUDES DIFF/PLT)on Basophils (Bld) [#/Vol] 0.039 10*3/uL Normal 0-200 [facility] Comment on above: Performed By: #### 6 399, 31011, 496, 7600 #### [facility] of [place] [address] [employer] Supervisor: Robbie Garnica MD Basophils/100 WBC (Bld) 0.6 % Normal [facility] Comment on above: Performed By: #### 6 399, 03950, 496, 7600 #### [facility] [place] [address] [employer] Supervisor: Robbie Garnica MD Eosinophils (Bld) [#/Vol] 0.241 10*3/uL Normal 15-500 [facility] Comment on above: Performed By: #### 6 399, 79261, 496, 7600 #### [facility] [place] [address] [employer] Supervisor: Robbie Garnica MD Eosinophils/100 WBC (Bld) 3.7 % Normal [facility] Comment on above: Performed By: #### 6 399, 96656, 496, 7600 #### [facility] of [place] [address] [employer] Supervisor: Robbie Garnica MD Erythrocyte distribution width (RBC) [Ratio] 12.5 % Normal 11.0-15.0 [facility] Comment on above: Performed By: #### 6 399, 10170, 496, 7600 #### [facility] of [place] [address] [employer] Supervisor: Robbie Garnica MD Hematocrit (Bld) [Volume fraction] 38.9 % Normal 35.0-45.0 [facility] Comment on above: Performed By: #### 6 399, 68192, 496, 7600 #### [facility] [place] [address] [employer] Supervisor: Robbie Garnica MD Hemoglobin (Bld) [Mass/Vol] 12.6 g/dL Normal 11.7-15.5 [facility] Comment on above: Performed By: #### 6 399, 42800, 496, 7600 #### [facility] [place] [address] [employer] Supervisor: Robbie Garnica MD Lymphocytes (Bld) [#/Vol] 1.053 10*3/uL Normal 850-3900 [facility] Comment on above: Performed By: #### 6 399, 83839, 496, 7600 #### [facility] [place] [address] [employer] Supervisor: Robbie Garnica MD Lymphocytes/100 WBC (Bld) 16.2 % Normal [facility] Comment on above: Performed By: #### 6 399, 49840, 496, 7600 #### [facility] [place] [address] [employer] Supervisor: Robbie Garnica MD MCH (RBC) [Entitic mass] 30.4 pg Normal 27.0-33.0 [facility] Comment on above: Performed By: #### 6 399, 11055, 496, 7600 #### [facility] [place] [address] [employer] Supervisor: Robbie Garnica MD MCHC (RBC) [Mass/Vol] 32.4 [...] clinical condition. Performed By: #### 6 399, 06299, 496, 7600 #### [facility] of [address], [address] [place] [address] Airport Operations Supervisor: Robbie Garnica MD MCV (RBC) [Entitic vol] 93.7 fL Normal 80.0-100.0 [facility] Comment on above: Performed By: #### 6 399, 59844, 496, 7600 #### [facility] [place] [address] [employer] Supervisor: Robbie Garnica MD Monocytes (Bld) [#/Vol] 0.475 10*3/uL Normal 200-950 [facility] Comment on above: Performed By: #### 6 399, 67158, 496, 7600 #### [facility] of [address], [address] [place] [address] Airport Operations Supervisor: Robbie Garnica MD Monocytes/100 WBC (Bld) 7.3 % Normal [facility] Comment on above: Performed By: #### 6 399, 68035, 496, 7600 #### [facility] of [place] [address] [employer] Supervisor: Robbie Garnica MD Neutrophils (Bld) [#/Vol] 4.693 10*3/uL Normal 1818-9198 [facility] Comment on above: Performed By: #### 6 399, 07367, 496, 7600 #### [facility] [place] [address] [employer] Supervisor: Robbie Garnica MD Neutrophils/100 WBC (Bld) 72.2 % Normal [facility] Comment on above: Performed By: #### 6 399, 55229, 496, 7600 #### [facility] [place] [address] [employer] Supervisor: Robbie Garnica MD Platelet mean volume (Bld) [Entitic vol] 11.4 fL Normal 7.5-12.5 [facility] Comment on above: Performed By: #### 6 399, 34292, 496, 7600 #### [facility] [address], [address] [place] [address] Airport [employer] Supervisor: Robbie Garnica MD Platelets (Bld) [#/Vol] 186 10*3/uL Normal 140-400 [facility] Comment on above: Performed By: #### 6 399, 07320, 496, 7600 #### [facility] [place] [address] [employer] Supervisor: Robbie Garnica MD RBC (Bld) [#/Vol] 4.15 10*6/uL Normal 3.80-5.10 [facility] Comment on above: Performed By: #### 6 399, 28325, 496, 7600 #### [facility] [address], [address] [place] [address] Airport [employer] Supervisor: Robbie Garnica MD WBC (Bld) [#/Vol] 6.5 10*3/uL Normal 3.8-10.8 [facility] Comment on above: Performed By: #### 6 399, 92899, 496, 7600 #### [facility] [place] [address] [employer] Supervisor: Robbie Garnica MD HEMOGLOBIN A1con 06-07-2024 HbA1c [...] for children. Performed By: #### 6 399, 03646, 496, 7600 #### [facility] [address], [address] [place] [address] Airport [employer] Supervisor: Robbie Garnica MD LIPID PANEL, [facility] 05-18 Cholesterol [Mass/Vol] 118 mg/dL Normal <200 [facility] Comment on above: Order Comment: FASTI NG:YES FASTING: YES Performed By: #### 6 399, 65160, 496, 7600 #### [facility] [address], [address] [place] [address] Airport Operations Supervisor: Robbie Garnica MD Cholesterol in HDL [Mass/Vol] 54 mg/dL Normal > OR = 50 [facility] Comment on above: Order Comment: FASTI NG:YES FASTING: YES Performed By: #### 6 399, 65959, 496, 7600 #### [facility] [address], [address] [place] [address] Airport [employer] Supervisor: Robbie Garnica MD Cholesterol in LDL [Mass/Vol] [...] LDL-C. Damion HELTON et al. CONSUELO. 2013;310(19): 9257-4987 (http://education.[employer]faq/XCV336) Performed By: #### 6 399, 32707, 496, 7600 #### [facility] [address], [address] [place] [address] Airport [employer] Supervisor: Robbie Garnica MD Cholesterol.total/ Cholesterol in HDL [Mass ratio] 2.2 {ratio} Normal <5.0 [facility] Comment on above: Order Comment: FASTI NG:YES FASTING: YES Performed By: #### 6 399, 76435, 496, 7600 #### [facility] 04 [address], [address] [place] [address] Airport Operations Supervisor: Robbie Garnica MD NON HDL CHOLESTEROL 64 mg/dL (calc) Normal <130 [facility] Comment on above: Order Comment: FASTI NG:YES FASTING: YES Result Comment: For patients with diabetes plus 1 major ASCVD risk factor, treating to a non-HDL-C goal of <100 mg/dL (LDL-C of <70 mg/dL) is considered a therapeutic option. Performed By: #### 6 399, [id number], 496, 7600 #### [facility] [address], [address] [place] [address] [employer] Supervisor: Robbie Garnica MD Triglyceride [Mass/Vol] 66 mg/dL Normal <150 [facility] Comment on above: Order Comment: FASTI NG:YES FASTING: YES Performed By: #### 6 399, 16291, 496, 7600 #### [facility] [address], [address] [place] [address] [employer] Supervisor: Robbie Garnica MD VITAMIN D,25-OH,TOTAL,IAon 0 06-07-2024 [...] D, (D2,D3), LC/MS/MS is recommended: order code 80566 (patients >2yrs). See Note 1 Note 1 For additional information, please refer to http://education.Numerify.Piku [employer] K.K./faq/YKC416 (This link is being provided for informational/ educational purposes only.) Performed By: #### 6 399, 50075, 496, 7600 #### [facility] [address], [address] [place] [address] Airport Operations Supervisor: Robbie Garnica MD ALL T3 FREEon 05-23-2024 Free T3 [Mass/Vol] 2.72 pg/mL 2.18 - 3. 98 pg/mL [facility] ALL THYROID STIM HORMONEon 0 05-23-2024 Interpretation and review of laboratory results Abnormal [facility] TSH Qn 4.74 m[IU]/L High [facility] ALL THYROXINE (T4) FREEon Free T4 [Mass/Vol] 0.98 ng/dL 0.76 - 1. 46 ng/dL [facility] No Panel Informationon 05-23 [facility] 36on 01-26-2024 36 Spoke with patient a nd made her aware to start taking full tablet of spironolactone starting tomorrow per Dr. Sanchez. Advised her to still cut lisinopril tablet in half. She will continue to track BP's and call us with updates. Patient verbalized understanding. [facility] 36 Patient called to marcello marquez you aware that since decreasing spironolactone and lisinopril yesterday her BP has been: 147/92 160/108 172/118 I told her to take the other half tablet of spironolactone right now. Any other recommendations? Please advise. Thanks [facility] Office Visiton 01-25-2024 Follow-up visit [id number] Lluvia Moreno 1940 F Date Provider Department Center 01/25/2024 [id number]-EYHBAACLAUDIO SANCHEZ [facility] Family History Problem Relation Age of Onset Colon cancer Father Coronary artery disease Brother Hypertension Brother Kidney cancer Brother Family Status - Relation Status Age at Father Brother Level of Service:99368 DE OFFICE/OUTPATIENT ESTABLISHED MOD MDM 30 MIN Reason for Visit and Comments: Atrial Fibrillation [80] - Had thyroid function last month. Shortness of Breath [691729] Hypertension [787566] Cardiomyopathy [104] Valve Disorder [3372] Coronary Artery Disease [187] Congestive Heart Failure [127] - Admitted to [facility] in August 2023 for COPD, hypertension, and CHF. Pacemaker Check [337] - Per device rep, all looks good, no events . [facility] ALL THYROXINE (T4) FREEon Free T4 [Mass/Vol] 1.02 ng/dL 0.76 - 1. 46 ng/dL [facility] FREE T3on 05-14-2022 FREE T3 2.54 pg/mlL Normal 2.18-3.98 [facility] Comment on above: Performed By: #### F T3, TSH #### [facility] [address] [address] [address] Hugo Yang FREE T4on 05-14-2022 Free T4 [Mass/Vol] 1.09 ng/dL Normal 0.76-1.46 [facility] Comment on above: Performed By: #### F T4 #### [facility] [address] [address] [address] Hugo Yang TSHon 05-14-2022 TSH 3.015 uIU/mL Normal 0.358-3.740 [facility] Comment on above: Performed By: #### F T3, TSH #### [facility] [address] [place] [address] HEAD WO CONon [...] by: JOEL ANDINO Date: 2022-03-19 10:33 Normal [facility] XR DEXA BONE DENSITYon 03-19 XR [...] by: JOEL ANDINO Date: 2022-03-19 11:11 Normal [facility] ECHOCARDIO M/2D COMPLETEon 1 02-22-2021 ECHOCARDIO M/2D COMPLETE Patient: LLUVIA MORENO Exam Date: 12/23/2021 : 1940 Gender:F Ordering : [facility] Admission #: [id number] Family : DR OLE YANG M.D. Order #: [id number] CLICK HERE TO VIEW EXAM ECHOCARDIOGRAM REPORT [...] M.D. on 12/24/2021 at 15:56 Normal [facility] FREE T3on 11-25-2021 FREE T3 1.97 pg/mlL Critically low 2.18-3.98 [facility] Comment on above: Performed By: #### F T3, TSH #### [facility] [address] [place] [address] Dr. Hugo Yang FREE T4on 11-25-2021 Free T4 [Mass/Vol] 1.00 ng/dL Normal 0.76-1.46 [facility] Comment on above: Performed By: #### F T3, TSH #### [facility] [address] [address] [address] Hugo Yang LIVER PROFILEon 11-25-2021 Albumin [Mass/Vol] 3.9 g/dL Normal 3.4-5.0 [facility] Comment on above: Performed By: #### F T3, TSH #### [facility] [address] [place] [address] Dr. Hugo Yang Albumin/Globulin [Mass ratio] 1.1 {ratio} Normal [facility] Comment on above: Performed By: #### F T3, TSH #### [facility] [address] [place] [address] Dr. Hugo Yang ALP [Catalytic activity/Vol] 94 U/L Normal 46-116 [facility] Comment on above: Performed By: #### F T3, TSH #### [facility] [address] [place], [place] [id number] Dr. Hugo Yang ALT [Catalytic activity/Vol] 41 U/L Normal 14-59 [facility] Comment on above: Performed By: #### F T3, TSH #### [facility] [address] [address] [address] Hugo Yang AST [Catalytic activity/Vol] 25 U/L Normal 15-37 [facility] Comment on above: Performed By: #### F T3, TSH #### [facility] [address] [address] [address] Hugo Yang BILI, CONJUGATED 0.2 mg/dL Normal 0.0-0.2 [facility] Comment on above: Performed By: #### F T3, TSH #### [facility] [address] [place] [address] Dr. Hugo Yang Bilirubin [Mass/Vol] 0.8 mg/dL Normal 0.2-1.0 [facility] Comment on above: Performed By: #### F T3, TSH #### [facility] [address] [place] [address] Dr. Hugo Yang Globulin (S) [Mass/Vol] 3.5 g/dL Normal [facility] Comment on above: Performed By: #### F T3, TSH #### [facility] [address] [place] [address] Dr. Hugo Yang Protein [Mass/Vol] 7.4 g/dL Normal 6.4-8.2 [facility] Comment on above: Performed By: #### F T3, TSH #### [facility] [address] [place] [address] Dr. Hugo Yang TSHon 11-25-2021 TSH 2.892 uIU/mL Normal 0.358-3.740 [facility] Comment on above: Performed By: #### F T3, TSH #### [facility] [address] [place] [address] Dr. Hugo Yang US PIPER DOP LEG [...] JOEL ANDINO Date: 2021-09-04 12:18 Normal [facility] Cardiovascular Lab Reporton 08-21-2021 Cardiovascular Lab Report [facility] MR #: [id number] Physician: Keanu Islas MD Department of Service Date: 08/21/2021 Medicine Birthdate: 1940 Division of Room #: CC Cardiology Adult Cardiovascular Services [facility] [address] [facility] [place] [address] Cardiovascular Laboratory Report TBIV-UPGRADE PROCEDURE NOTE DATE OF PROCEDURE: 08/21/2021 PERFORMING PHYSICIAN: Dr. Keanu Islas CONSENT: Patient LOCATION: EP Lab PROCEDURE PERFORMED: 1. Implantation of Biventricular ICD ([employer]). 2. Explantation of previously implanted pacemaker generator ([employer]). 3. RV pacing lead and extraction. [...] was then removed and venogram was performed. Dawn catheter was advanced and venogram was performed. This revealed a good posterolateral vein, but other than that, an anterior vein was noted, but no significant other branches were seen. After this, a 0.014 wire was passed through the Dawn-Sarah catheter and traversed into the posterolateral vein. However, the wire was short enough and we could not get a good grasp at the end. So, thereafter, the Dawn-Sarah catheter was removed and 90-degree inner cannula was used to access the vein. A longer 0.014 wire tracked into the vein. Over this, a AdVolume Acuity straight lead was advanced and placed [...] t (more content not included)... Normal [facility] Covid-19 PCR ([facility])on SARS-CoV-2 (COVID-19) RNA SONA+probe Ql (Unsp spec) Not detected Normal NOT DETECTED [facility] Comment on above: Result Comment: When [...] for this test is supported by the [place] of Health and Human Service's declaration that [...] used). Performed By: #### B MP #### [facility] [address] [place] [address] [address] [address] Hugo Yang HEMOGRAM AND PLATELon 2021 Hematocrit (Bld) [Volume fraction] 43.7 % Normal 36.0-48.0 [facility] Comment on above: Performed By: #### C BC #### [facility] [address] [address] [address] Hugo Yang Hemoglobin (Bld) [Mass/Vol] 14.2 g/dL Normal 12.0-16.0 [facility] Comment on above: Performed By: #### C BC #### [facility] [address] [place] [address] Dr. Hugo Yang MCH (RBC) [Entitic mass] 31.0 pg Normal 26.7-34.0 [facility] Comment on above: Performed By: #### C BC #### [facility] [address] [place] [address] Dr. Hugo Yang MCHC (RBC) [Mass/Vol] 32.5 g/dL Normal 29.9-35.2 [facility] Comment on above: Performed By: #### C BC #### [facility] [address] [place] [address] Dr. Hugo Yang MCV (RBC) [Entitic vol] 95.4 fL Normal 81.0-99.0 [facility] Comment on above: Performed By: #### C BC #### [facility] [address] [place] [address] Dr. Hugo Yang PLT 161 103/ul Normal 150-450 [facility] Comment on above: Performed By: #### C BC #### [facility] [address] [place] [address] Dr. Hugo Yang RBC 4.58 106/ul Normal 4.20-5.40 [facility] Comment on above: Performed By: #### C BC #### [facility] [address] [place] [address] Dr. Hugo Yang WBC 6.9 103/ul Normal 4.0-11.0 [facility] Comment on above: Performed By: #### C BC #### [facility] [address] [place] [address] Dr. Hugo Yang PROF CHEM 8 (BAS METB)on Anion gap [Moles/Vol] 11.5 mmol/L Normal [facility] Comment on above: Performed By: #### B MP #### [facility] [address] [address] [address] Hugo Yang Calcium [Mass/Vol] 9.6 mg/dL Normal 8.5-10.1 [facility] Comment on above: Performed By: #### B MP #### [facility] [address] [address] [address] Hugo Yang Chloride [Moles/Vol] 104 mmol/L Normal 98-107 [facility] Comment on above: Performed By: #### B MP #### [facility] [address] [address] [address] Hugo Yang CO2 [Moles/Vol] 30.6 mmol/L Normal 21.0-32.0 [facility] Comment on above: Performed By: #### B MP #### [facility] [address] [place] [address] Dr. Hugo Yang Creatinine [Mass/Vol] 1.24 mg/dL Critically high 0.55-1.02 [facility] Comment on above: Performed By: #### B MP #### [facility] [address] [place] [address] Dr. Hugo Yang EGFR-AF SRI LANKAN 51 mL/min/1.73m2 Critically low >=60 [facility] Comment on above: Performed By: #### B MP #### [facility] [address] [place] [address] Dr. Hugo Yang EGFR-NON AF SRI LANKAN 42 mL/min/1.73m2 Critically low >=60 [facility] Comment on above: Performed By: #### B MP #### [facility] [address] [place] [address] Dr. Hugo Yang Glucose [Mass/Vol] 111 mg/dL Critically high 74-106 [facility] Comment on above: Performed By: #### B MP #### [facility] [address] [address] [address] Hugo Yang Potassium [Moles/Vol] 5.1 mmol/L Normal 3.5-5.1 [facility] Comment on above: Performed By: #### B MP #### [facility] [address] [address] [address] Hugo Yang Sodium [Moles/Vol] 141 mmol/L Normal 136-145 [facility] Comment on above: Performed By: #### B MP #### [facility] [address] [address] [address] Hugo Yang Urea nitrogen [Mass/Vol] 31.0 mg/dL Critically high 7.0-18.0 [facility] Comment on above: Performed By: #### B MP #### [facility] [address] [place] [address] Dr. Hugo Yang Urea nitrogen/Creatinin e [Mass ratio] 25.0 mg/mg Normal [facility] Comment on above: Performed By: #### B MP #### [facility] [address] [place] [address] Dr. Hugo Yang BNPon 07-30-2021 Natriuretic peptide B (Bld) [Mass/Vol] 1994.0 pg/mL Critically high <=1,800.0 [facility] Comment on above: Performed By: #### C BC #### [facility] [address] [place] [address] Dr. Hugo Yang PROF CHEM 8 (BAS METB)on Anion gap [Moles/Vol] 11.3 mmol/L Normal [facility] Comment on above: Performed By: #### C BC #### [facility] [address] [place] [address] Dr. Hugo Yang Calcium [Mass/Vol] 9.7 mg/dL Normal 8.5-10.1 [facility] Comment on above: Performed By: #### C BC #### [facility] [address] [place] [address] Dr. Hugo Yang Chloride [Moles/Vol] 104 mmol/L Normal 98-107 [facility] Comment on above: Performed By: #### C BC #### [facility] [address] [place] [address] Dr. Hugo Yang CO2 [Moles/Vol] 29.6 mmol/L Normal 21.0-32.0 [facility] Comment on above: Performed By: #### C BC #### [facility] [address] [address] [address] Hugo Yang Creatinine [Mass/Vol] 1.28 mg/dL Critically high 0.55-1.02 [facility] Comment on above: Performed By: #### C BC #### [facility] [address] [address] [address] Hugo Yang EGFR-AF SRI LANKAN 49 mL/min/1.73m2 Critically low >=60 [facility] Comment on above: Performed By: #### C BC #### [facility] [address] [address] [address] Hugo Yang EGFR-NON AF SRI LANKAN 40 mL/min/1.73m2 Critically low >=60 [facility] Comment on above: Performed By: #### C BC #### [facility] [address] [address] [address] Hugo Yang Glucose [Mass/Vol] 119 mg/dL Critically high 74-106 [facility] Comment on above: Performed By: #### C BC #### [facility] [address] [address] [address] Hugo Yang Potassium [Moles/Vol] 4.9 mmol/L Normal 3.5-5.1 [facility] Comment on above: Performed By: #### C BC #### [facility] [address] [address] [address] Hugo Yang Sodium [Moles/Vol] 140 mmol/L Normal 136-145 [facility] Comment on above: Performed By: #### C BC #### [facility] [address] [address] [address] Hugo Yang Urea nitrogen [Mass/Vol] 30.0 mg/dL Critically high 7.0-18.0 [facility] Comment on above: Performed By: #### C BC #### [facility] [address] [address] [address] Hugo Yang Urea nitrogen/Creatinin e [Mass ratio] 23.4 mg/mg Normal [facility] Comment on above: Performed By: #### C BC #### [facility] [address] [address] [address] Hugo Yang FREE T3on 06-28-2021 FREE T3 2.64 pg/mlL Normal 2.18-3.98 [facility] Comment on above: Performed By: #### F T3, TSH #### [facility] [address] [place] [address] Dr. Hugo Yang FREE T4on 06-28-2021 Free T4 [Mass/Vol] 1.19 ng/dL Normal 0.76-1.46 [facility] Comment on above: Performed By: #### B MP #### [facility] [address] [address] [address] Hugo Yang LIVER PROFILEon 06-28-2021 Albumin [Mass/Vol] 3.8 g/dL Normal 3.4-5.0 [facility] Comment on above: Performed By: #### F T3, TSH #### [facility] [address] [place] [address] Dr. Hugo Yang Albumin/Globulin [Mass ratio] 1.2 {ratio} Normal [facility] Comment on above: Performed By: #### F T3, TSH #### [facility] [address] [place] [address] Dr. Hugo Yang ALP [Catalytic activity/Vol] 88 U/L Normal 46-116 [facility] Comment on above: Performed By: #### F T3, TSH #### [facility] [address] [place] [address] Dr. Hugo Yang ALT [Catalytic activity/Vol] 54 U/L Normal 14-59 [facility] Comment on above: Performed By: #### F T3, TSH #### [facility] [address] [place] [address] Dr. Hugo Yang AST [Catalytic activity/Vol] 36 U/L Normal 15-37 [facility] Comment on above: Performed By: #### F T3, TSH #### [facility] [address] [place] [address] Dr. Hugo Yang BILI, CONJUGATED 0.3 mg/dL Critically high 0.0-0.2 [facility] Comment on above: Performed By: #### F T3, TSH #### [facility] [address] [place] [address] Dr. Hugo Yang Bilirubin [Mass/Vol] 0.9 mg/dL Normal 0.2-1.0 [facility] Comment on above: Performed By: #### F T3, TSH #### [facility] [address] [place] [address] Dr. Hugo Yang Globulin (S) [Mass/Vol] 3.3 g/dL Normal [facility] Comment on above: Performed By: #### F T3, TSH #### [facility] [address] [place] [address] Dr. Hugo Yang Protein [Mass/Vol] 7.1 g/dL Normal 6.4-8.2 [facility] Comment on above: Performed By: #### F T3, TSH #### [facility] [address] [place] [address] Dr. Hugo Yang PROF CHEM 8 (BAS METB)on Anion gap [Moles/Vol] 13.6 mmol/L Normal [facility] Comment on above: Performed By: #### B MP #### [facility] [address] [place] [address] Dr. Hugo Yang Calcium [Mass/Vol] 9.5 mg/dL Normal 8.5-10.1 [facility] Comment on above: Performed By: #### B MP #### [facility] [address] [place] [address] Dr. Hugo Yang Chloride [Moles/Vol] 105 mmol/L Normal 98-107 [facility] Comment on above: Performed By: #### B MP #### [facility] [address] [place] [address] Dr. Hugo Yang CO2 [Moles/Vol] 28.5 mmol/L Normal 21.0-32.0 [facility] Comment on above: Performed By: #### B MP #### [facility] [address] [place] [address] Dr. Hugo Yang Creatinine [Mass/Vol] 1.05 mg/dL Critically high 0.55-1.02 [facility] Comment on above: Performed By: #### B MP #### [facility] [address] [address] [address] Hugo Yang EGFR-AF SRI LANKAN >60 Normal >=60 [facility] Comment on above: Performed By: #### B MP #### [facility] [address] [address] [address] Hugo Yang EGFR-NON AF SRI LANKAN 51 mL/min/1.73m2 Critically low >=60 [facility] Comment on above: Performed By: #### B MP #### [facility] [address] [address] [address] Hugo Yang Glucose [Mass/Vol] 113 mg/dL Critically high 74-106 [facility] Comment on above: Performed By: #### B MP #### [facility] [address] [address] [address] Hugo Yang Potassium [Moles/Vol] 5.1 mmol/L Normal 3.5-5.1 [facility] Comment on above: Performed By: #### B MP #### [facility] [address] [place] [address] Dr. Hguo Yang Sodium [Moles/Vol] 142 mmol/L Normal 136-145 [facility] Comment on above: Performed By: #### B MP #### [facility] [address] [address] [address] Hugo Yang Urea nitrogen [Mass/Vol] 29.0 mg/dL Critically high 7.0-18.0 [facility] Comment on above: Performed By: #### B MP #### [facility] [address] [address] [address] Hugo Yang Urea nitrogen/Creatinin e [Mass ratio] 27.6 mg/mg Normal [facility] Comment on above: Performed By: #### B MP #### [facility] [address] [place] [address] Dr. Hugo Yang TSHon 06-28-2021 TSH 3.067 uIU/mL Normal 0.358-3.740 [facility] Comment on above: Performed By: #### F T3, TSH #### [facility] [address] [place], [place] [address] Dr. Hugo Yang TSH RANGE SEE BELOW Normal [facility] Comment on above: Result Comment: <0.3 4 UIU/ml HYPERTHYROID 0.34-5.60 UIU/ml EUTHYROID >5.60 UIU/ml HYPOTHYROID Performed By: #### F T3, TSH #### [facility] [address] [place], [place] [address] Dr. Hugo Yang Cardiovascular Lab Reporton 06-21-2021 Cardiovascular Lab Report [facility] MR #: [id number] Physician: Elizabeth Tejeda, Department of M.D. Medicine Service Date: 06/20/2021 Division of Birthdate: 1940 Cardiology Room #: [facility] Cardiovascular Services [place] [address] Cardiovascular Laboratory Report FINAL IMPRESSIONS: 1. 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 2. Otherwise nonobstructive coronary arteries angiographically. 3. Moderately reduced global left ventricular systolic function by noninvasive imaging. 4. Normal right-sided heart pressures and wedge pressure. 5. Winl-iq-ohlbqiae systemic hypertension. 6. Mildly reduced cardiac output/cardiac [...] bilateral selective coronary angiography, placement of a 6-Sudanese MynxGrip closure device. METHODS: After risks, benefits, [...] femoral vein and artery was obtained. A 6-Sudanese 11 cm sheath was placed in each. [...] the procedure. All catheters were removed. A 6-Sudanese MynxGrip closure device was deployed per protocol [...] E (more content not included)... Normal [facility] BNPon 06-18-2021 Natriuretic peptide B (Bld) [Mass/Vol] 3442.0 pg/mL Critically high <=1,800.0 [facility] Comment on above: Result Comment: TEST REPEATED CRITICAL VALUE VERIFIED Performed By: #### L IPID, BNP, CMP #### [facility] [address] [place] [address] Dr. Hugo Yang CBC AUTO DIFFon 06-18-2021 BASO # 0.1 103/ul Normal 0.0-0.1 [facility] Comment on above: Performed By: #### C BC #### [facility] [address] [place] [address] Dr. Hugo Yang Basophils/100 WBC (Bld) 0.5 % Normal 0.2-2.0 [facility] Comment on above: Performed By: #### C BC #### [facility] [address] [place] [address] Dr. Hugo Yang EO # 0.3 103/ul Normal 0.0-0.7 [facility] Comment on above: Performed By: #### C BC #### [facility] [address] [place] [address] Dr. Hugo Yang Eosinophils/100 WBC (Bld) 2.3 % Normal 0.9-7.0 [facility] Comment on above: Performed By: #### C BC #### [facility] [address] [place] [address] Dr. Hugo Yang Erythrocyte distribution width (RBC) [Ratio] 14.5 % Normal 11.0-15.0 [facility] Comment on above: Performed By: #### C BC #### [facility] [address] [place] [address] Dr. Hugo Yang Hematocrit (Bld) [Volume fraction] 42.3 % Normal 36.0-48.0 [facility] Comment on above: Performed By: #### C BC #### [facility] [address] [place] [address] Dr. Hugo Yang Hemoglobin (Bld) [Mass/Vol] 13.5 g/dL Normal 12.0-16.0 [facility] Comment on above: Performed By: #### C BC #### [facility] [address] [place] [address] Dr. Hugo Yang IG # 0.05 10e3/ul Critically high 0.00-0.03 [facility] Comment on above: Performed By: #### C BC #### [facility] [address] [place] [address] Dr. Hugo Yang IG % 0.4 % Normal 0.0-0.5 [facility] Comment on above: Performed By: #### C BC #### [facility] [address] [place] [address] Dr. Hugo Yang LYMPH # 1.5 103/ul Normal 1.2-3.8 [facility] Comment on above: Performed By: #### C BC #### [facility] [address] [place] [address] Dr. Hugo Yang Lymphocytes/100 WBC (Bld) 12.9 % Critically low 20.5-60.0 [facility] Comment on above: Performed By: #### C BC #### [facility] [address] [place] [address] Dr. Hugo Yang MANUAL DIFF REQ NO Normal [facility] Comment on above: Performed By: #### C BC #### [facility] [address] [address] [address] Hugo Yang MCH (RBC) [Entitic mass] 30.4 pg Normal 26.7-34.0 [facility] Comment on above: Performed By: #### C BC #### [facility] [address] [address] [address] Hugo Yang MCHC (RBC) [Mass/Vol] 31.9 g/dL Normal 29.9-35.2 [facility] Comment on above: Performed By: #### C BC #### [facility] [address] [address] [address] Hugo Yang MCV (RBC) [Entitic vol] 95.3 fL Normal 81.0-99.0 [facility] Comment on above: Performed By: #### C BC #### [facility] [address] [place] [address] Dr. Hugo Yang MONO # 0.7 103/ul Normal 0.3-0.8 [facility] Comment on above: Performed By: #### C BC #### [facility] [address] [place] [address] Dr. Hugo Yang Monocytes/100 WBC (Bld) 6.2 % Normal 1.7-12.0 [facility] Comment on above: Performed By: #### C BC #### [facility] [address] [address] [address] Hugo Yang NEUT # 8.8 103/ul Critically high 1.4-6.5 [facility] Comment on above: Performed By: #### C BC #### [facility] [address] [address] [address] Hugo Yang Neutrophils/100 WBC (Bld) 77.7 % Critically high 43.0-75.0 [facility] Comment on above: Performed By: #### C BC #### [facility] [address] [place] [address] Dr. Hugo Yang Platelet mean volume (Bld) [Entitic vol] 10.4 fL Normal 9.5-13.5 [facility] Comment on above: Performed By: #### C BC #### [facility] [address] [address] [address] Hugo Yang PLT 199 103/ul Normal 150-450 [facility] Comment on above: Performed By: #### C BC #### [facility] [address] [place] [address] Dr. Hugo Yang RBC 4.44 106/ul Normal 4.20-5.40 [facility] Comment on above: Performed By: #### C BC #### [facility] [address] [place] [address] Dr. Hugo Yang WBC 11.3 103/ul Critically high 4.0-11.0 [facility] Comment on above: Performed By: #### C BC #### [facility] [address] [place] [address] Dr. Hugo Yang Covid-19 PCR ([facility])on SARS-CoV-2 (COVID-19) RNA SONA+probe Ql (Unsp spec) Not detected Normal NOT DETECTED [facility] Comment on above: Result Comment: This test is not yet approved or cleared by the [place] FDA. When there are no FDA-approved or cleared tests available, and other criteria are met, FDA can make tests available under an emergency access mechanism called an Emergency Use Authorization (EUA). The EUA for this test is supported by the [place] of Health and Human Service's (HHS's) declaration [...] Performed By: #### F T3, TSH #### [facility] [address] [place] [address] Dr. Hugo Yang LIPID PROFILEon 06-18-2021 CHOL-HDL RATIO NORM SEE BELOW Normal [facility] Comment on above: Result Comment: 3.3 - 4.4 LOW RISK 4.4 - 7.1 AVERAGE RISK 7.1 - 11.0 MODERATE RISK >11.0 HIGH RISK Performed By: #### L IPID, BNP, CMP #### [facility] [address] [address] [address] Hugo Yang Cholesterol [Mass/Vol] 127 mg/dL Normal <=200 [facility] Comment on above: Performed By: #### L IPID, BNP, CMP #### [facility] [address] [address] [address] Hugo Yang Cholesterol in HDL [Mass/Vol] 60 mg/dL Normal 40-60 [facility] Comment on above: Performed By: #### L IPID, BNP, CMP #### [facility] [address] [place] [address] Dr. Hugo Yang Cholesterol in LDL [Mass/Vol] 47.4 mg/dL Normal [facility] Comment on above: Performed By: #### L IPID, BNP, CMP #### [facility] [address] [place] [address] Dr. Hugo Yang Cholesterol.total/ Cholesterol in HDL [Mass ratio] 2.1 {ratio} Normal [facility] Comment on above: Performed By: #### L IPID, BNP, CMP #### [facility] [address] [place] [address] Dr. Hugo Yang HDL NORMAL > or = 60 mg/dl - LO W CARDIOVASCULAR RISK <40 mg/dl - HIGH CARDIOVASCULAR RISK Normal [facility] Comment on above: Performed By: #### L IPID, BNP, CMP #### [facility] [address] [place] [address] Dr. Hugo Yang LDL CALC NORMAL SEE BELOW Normal [facility] Comment on above: Result Comment: <100 mg/dl OPTIMAL 100 - 129 mg/dl NEAR OR ABOVE OPTIMAL 130 - 159 mg/dl BORDERLINE HIGH 160 - 189 mg/dl HIGH >190 mg/dl VERY HIGH Performed By: #### L IPID, BNP, CMP #### [facility] [address] [address] [address] Hugo Yang Triglyceride [Mass/Vol] 98 mg/dL Normal <=150 [facility] Comment on above: Performed By: #### L IPID, BNP, CMP #### [facility] [address] [address] [address] Hugo Yang VLDL CALC 19.6 mg/dL Normal [facility] Comment on above: Performed By: #### L IPID, BNP, CMP #### [facility] [address] [address] [address] Hugo Yang PROF 14(COMP METB)on 022 Albumin [Mass/Vol] 4.0 g/dL Normal 3.4-5.0 [facility] Comment on above: Performed By: #### L IPID, BNP, CMP #### [facility] [address] [address] [address] Hugo Yang Albumin/Globulin [Mass ratio] 1.3 {ratio} Normal [facility] Comment on above: Performed By: #### L IPID, BNP, CMP #### [facility] [address] [address] [address] Hugo Yang ALP [Catalytic activity/Vol] 82 U/L Normal 46-116 [facility] Comment on above: Performed By: #### L IPID, BNP, CMP #### [facility] [address] [address] [address] Hugo Yang ALT [Catalytic activity/Vol] 52 U/L Normal 14-59 [facility] Comment on above: Performed By: #### L IPID, BNP, CMP #### [facility] [address] [address] [address] Hugo Yang Anion gap [Moles/Vol] 12.9 mmol/L Normal [facility] Comment on above: Performed By: #### L IPID, BNP, CMP #### [facility] [address] [address] [address] Hugo Yang AST [Catalytic activity/Vol] 40 U/L Critically high 15-37 [facility] Comment on above: Performed By: #### L IPID, BNP, CMP #### [facility] [address] [address] [address] Hugo Yang Bilirubin [Mass/Vol] 1.7 mg/dL Critically high 0.2-1.0 [facility] Comment on above: Performed By: #### L IPID, BNP, CMP #### [facility] [address] [place] [address] Dr. Hugo Yang Calcium [Mass/Vol] 9.2 mg/dL Normal 8.5-10.1 [facility] Comment on above: Performed By: #### L IPID, BNP, CMP #### [facility] [address] [place] [address] Dr. Hugo Yang Chloride [Moles/Vol] 103 mmol/L Normal 98-107 [facility] Comment on above: Performed By: #### L IPID, BNP, CMP #### [facility] [address] [place] [address] Dr. Hugo Yang CO2 [Moles/Vol] 28.9 mmol/L Normal 21.0-32.0 [facility] Comment on above: Performed By: #### L IPID, BNP, CMP #### [facility] [address] [place] [address] Dr. Hugo Yang Creatinine [Mass/Vol] 1.12 mg/dL Critically high 0.55-1.02 [facility] Comment on above: Performed By: #### L IPID, BNP, CMP #### [facility] [address] [place] [address] Dr. Hugo Yang EGFR-AF SRI LANKAN 57 mL/min/1.73m2 Critically low >=60 [facility] Comment on above: Performed By: #### L IPID, BNP, CMP #### [facility] [address] [place] [address] Dr. Hugo Yang EGFR-NON AF SRI LANKAN 47 mL/min/1.73m2 Critically low >=60 [facility] Comment on above: Performed By: #### L IPID, BNP, CMP #### [facility] [address] [address] [address] Hugo Yang Globulin (S) [Mass/Vol] 3.1 g/dL Normal [facility] Comment on above: Performed By: #### L IPID, BNP, CMP #### [facility] [address] [address] [address] Hugo Yang Glucose [Mass/Vol] 128 mg/dL Critically high 74-106 [facility] Comment on above: Performed By: #### L IPID, BNP, CMP #### [facility] [address] [address] [address] Hugo Yang Potassium [Moles/Vol] 4.8 mmol/L Normal 3.5-5.1 [facility] Comment on above: Performed By: #### L IPID, BNP, CMP #### [facility] [address] [place] [address] Dr. Hugo Yang Protein [Mass/Vol] 7.1 g/dL Normal 6.1-8.2 [facility] Comment on above: Performed By: #### L IPID, BNP, CMP #### [facility] [address] [address] [address] Hugo Yang Sodium [Moles/Vol] 140 mmol/L Normal 136-145 [facility] Comment on above: Performed By: #### L IPID, BNP, CMP #### [facility] [address] [address] [address] Hugo Yang Urea nitrogen [Mass/Vol] 23.0 mg/dL Critically high 7.0-18.0 [facility] Comment on above: Performed By: #### L IPID, BNP, CMP #### [facility] [address] [address] [address] Hugo Yang Urea nitrogen/Creatinin e [Mass ratio] 20.5 mg/mg Normal [facility] Comment on above: Performed By: #### L IPID, BNP, CMP #### [facility] [address] [address] [address] Hugo Yang ECHOCARDIO M/2D COMPLETEon 0 06-12-2021 ECHOCARDIO M/2D COMPLETE Patient: LLUVIA MORENO Exam Date: 06/12/2021 : 1940 Gender:F Ordering : SHELDONCHIQUITA GOTTLIEB Admission #: [id number] Family : DR SYLVESTERMESHA YANG Kvng Order #: [id number] CLICK HERE TO VIEW EXAM ECHOCARDIOGRAM REPORT [...] Area(A4C): 31.00 cm2 Left Atrium Systolic Volume(A2C): 378652 mm3 Left Atrium Systolic Volume(A4C): 768880 mm3 Mitral Valve MV E to A [...] M.D. on 06/12/2021 at 16:27 Normal [facility] CBC AUTO DIFFon 06-04-2021 BASO # 0.0 103/ul Normal 0.0-0.1 [facility] Comment on above: Performed By: #### C BC #### [facility] [address] [place] [address] Dr. Hugo Yang Basophils/100 WBC (Bld) 0.6 % Normal 0.2-2.0 [facility] Comment on above: Performed By: #### C BC #### [facility] [address] [place] [address] Dr. Hugo Yang EO # 0.2 103/ul Normal 0.0-0.7 [facility] Comment on above: Performed By: #### C BC #### [facility] [address] [place] [address] Dr. Hugo Yang Eosinophils/100 WBC (Bld) 3.0 % Normal 0.9-7.0 [facility] Comment on above: Performed By: #### C BC #### [facility] [address] [place] [address] Dr. Hugo Yang Erythrocyte distribution width (RBC) [Ratio] 13.7 % Normal 11.0-15.0 [facility] Comment on above: Performed By: #### C BC #### [facility] [address] [place] [address] Dr. Hugo Yang Hematocrit (Bld) [Volume fraction] 42.1 % Normal 36.0-48.0 [facility] Comment on above: Performed By: #### C BC #### [facility] [address] [place] [address] Dr. Hugo Yang Hemoglobin (Bld) [Mass/Vol] 13.3 g/dL Normal 12.0-16.0 [facility] Comment on above: Performed By: #### C BC #### [facility] [address] [place] [address] Dr. Hugo Yang IG # 0.02 10e3/ul Normal 0.00-0.03 [facility] Comment on above: Performed By: #### C BC #### [facility] [address] [place] [address] Dr. Hugo Yang IG % 0.3 % Normal 0.0-0.5 [facility] Comment on above: Performed By: #### C BC #### [facility] [address] [place] [address] Dr. Hugo Yang LYMPH # 1.9 103/ul Normal 1.2-3.8 [facility] Comment on above: Performed By: #### C BC #### [facility] [address] [place] [address] Dr. Hugo Yang Lymphocytes/100 WBC (Bld) 29.2 % Normal 20.5-60.0 [facility] Comment on above: Performed By: #### C BC #### [facility] [address] [place] [address] Dr. Hugo Yang MANUAL DIFF REQ NO Normal [facility] Comment on above: Performed By: #### C BC #### [facility] [address] [place] [address] Dr. Hugo Yang MCH (RBC) [Entitic mass] 30.4 pg Normal 26.7-34.0 [facility] Comment on above: Performed By: #### C BC #### [facility] [address] [place] [address] Dr. Hugo Yang MCHC (RBC) [Mass/Vol] 31.6 g/dL Normal 29.9-35.2 [facility] Comment on above: Performed By: #### C BC #### [facility] [address] [place] [address] Dr. Hugo Yang MCV (RBC) [Entitic vol] 96.3 fL Normal 81.0-99.0 [facility] Comment on above: Performed By: #### C BC #### [facility] [address] [place] [address] Dr. Hugo Yang MONO # 0.6 103/ul Normal 0.3-0.8 [facility] Comment on above: Performed By: #### C BC #### [facility] [address] [place] [address] Dr. Hugo Yang Monocytes/100 WBC (Bld) 8.5 % Normal 1.7-12.0 [facility] Comment on above: Performed By: #### C BC #### [facility] [address] [place] [address] Dr. Hugo Yang NEUT # 3.8 103/ul Normal 1.4-6.5 [facility] Comment on above: Performed By: #### C BC #### [facility] [address] [place] [address] Dr. Hugo Yang Neutrophils/100 WBC (Bld) 58.4 % Normal 43.0-75.0 [facility] Comment on above: Performed By: #### C BC #### [facility] [address] [address] [address] Hugo Yang Platelet mean volume (Bld) [Entitic vol] 10.9 fL Normal 9.5-13.5 [facility] Comment on above: Performed By: #### C BC #### [facility] [address] [address] [address] Hugo Yang PLT 163 103/ul Normal 150-450 [facility] Comment on above: Performed By: #### C BC #### [facility] [address] [address] [address] Hugo Yang RBC 4.37 106/ul Normal 4.20-5.40 [facility] Comment on above: Performed By: #### C BC #### [facility] [address] [place] [address] Dr. Hugo Yang WBC 6.6 103/ul Normal 4.0-11.0 [facility] Comment on above: Performed By: #### C BC #### [facility] [address] [place] [address] Dr. Hugo Yang PROF CHEM 8 (BAS METB)on Anion gap [Moles/Vol] 13.9 mmol/L Normal [facility] Comment on above: Performed By: #### F T3, TSH #### [facility] [address] [place] [address] Dr. Hugo Yang Calcium [Mass/Vol] 9.5 mg/dL Normal 8.5-10.1 [facility] Comment on above: Performed By: #### F T3, TSH #### [facility] [address] [address] [address] Hugo Yang Chloride [Moles/Vol] 105 mmol/L Normal 98-107 [facility] Comment on above: Performed By: #### F T3, TSH #### [facility] [address] [address] [address] Hugo Yang CO2 [Moles/Vol] 27.7 mmol/L Normal 22.0-30.0 [facility] Comment on above: Performed By: #### F T3, TSH #### [facility] [address] [address] [address] Hugo Yang Creatinine [Mass/Vol] 1.19 mg/dL Critically high 0.52-1.04 [facility] Comment on above: Performed By: #### F T3, TSH #### [facility] [address] [address] [address] Hugo Yang EGFR-AF SRI LANKAN 53 mL/min/1.73m2 Critically low >=60 [facility] Comment on above: Performed By: #### F T3, TSH #### [facility] [address] [address] [address] Hugo Yang EGFR-NON AF SRI LANKAN 44 mL/min/1.73m2 Critically low >=60 [facility] Comment on above: Performed By: #### F T3, TSH #### [facility] [address] [address] [address] Hugo Yang Glucose [Mass/Vol] 112 mg/dL Critically high 74-106 [facility] Comment on above: Performed By: #### F T3, TSH #### [facility] [address] [place] [address] Dr. Hugo Yang Potassium [Moles/Vol] 4.6 mmol/L Normal 3.4-5.0 [facility] Comment on above: Performed By: #### F T3, TSH #### [facility] [address] [address] [address] Hugo Yang Sodium [Moles/Vol] 142 mmol/L Normal 137-145 [facility] Comment on above: Performed By: #### F T3, TSH #### [facility] [address] [address] [address] Hugo Yang Urea nitrogen [Mass/Vol] 28.0 mg/dL Critically high 7.0-18.0 [facility] Comment on above: Performed By: #### F T3, TSH #### [facility] [address] [address] [address] Hugo Yang Urea nitrogen/Creatinin e [Mass ratio] 23.5 mg/mg Normal [facility] Comment on above: Performed By: #### F T3, TSH #### [facility] [address] [place], [place] [address] Dr. Hugo Yang TROPONIN, HIGH SENSITIVITYon 06-04-2021 HSTROP 27.1 pg/mL Normal 4.0-35.5 [facility] Comment on above: Result Comment: CUT- OFF POINTS HAVE BEEN ESTABLISHED BASED ON THE FOURTH UNIVERSAL DEFINITIONS OF MYOCARDIAL INFARCTION. THE UPPER REFERENCE LIMIT (URL) OF TROPONIN, DEFINED THE 99TH PERCENTILE OF cTnI DISTRIBUTION IN A REFERENCE POPULATION, HAS BEEN CONFIRMED THE DECISION THRESHOLD FOR MD DIAGNOSIS. Performed By: #### F T3, TSH #### [facility] [address] [place], [place] [address] Dr. Hugo Yang XR CHEST 1 Von [...] JOEL ANDINO Date: 2021-06-04 11:09 Normal [facility] Cardiovascular Lab Reporton 12-28-2020 Cardiovascular Lab Report [facility] MR #: [id number] Physician: Keanu Islas MD Department of Service Date: 12/28/2020 Medicine Birthdate: 1940 Division of Room #: CC Cardiology Adult Cardiovascular Services [address] [place] [address] Cardiovascular Laboratory Report AV NODE ABLATION PROCEDURE [...] prepped and draped. Under ultrasound guidance, an 8-Sudanese venous access was procured, and a short [...] Islas MD Date Trans: 12/28/2020 04:43 P/mmo [id number] cc: Ole Yang M.D. [address] [place] [id number] [place] [facility] Cardiovascular Lab Reporton 11-19-2020 Cardiovascular Lab Report [facility] Patient Name: [facility] MR #: [id number] Physician: eKanu Islas MD Department of Service Date: 11/19/2020 Medicine Birthdate: 1940 Division of Room #: Cardiology Adult Cardiovascular Services [place] [address] Cardiovascular Laboratory Report PACEMAKER IMPLANT PROCEDURE NOTE DATE OF PROCEDURE: 11/19/20 PERFORMING PHYSICIAN: Dr. Keanu Islas CONSENT: Patient LOCATION: EP Lab PROCEDURE PERFORMED: 1. Implantation of pacemaker ([employer]) 2. Ultrasound guided venous access INDICATIONS: [...] using modified seldinger technique using a 5 Sudanese micro-puncture needle on one occasion and 0.35 wire was placed. Local infiltration of 1% Lidocaine was performed, and an incision was created in the left upper chest. Dissection was then performed using cautery down to the fascial plane above the muscle. A small pocket was created for the device. 8 Sudanese Safesheath was placed over the wire. Then a His sheath was advanced over a glide wire into the right ventricle. The wire and dilator was then removed. An active fixation [employer] pacing lead was then delivered through the His sheath to the right ventricle. I identified an area where pacing revealed a QRS of 120ms in unipolar configuration. After confirmation of lead position on orthogonal views (PATEL and MALTESE) to confirm septal position, the screw was [...] immediate procedural complications were noted. Device info: [employer] Accolade MRI EL SR IS1 Model# L310 Serial# [id number] RV lead: Model# [id number] (59cms) Serial# [id number] Sensin.3mV Threshold: 0.6V@0.4ms Impedance: 655 Ohms POST [...] 11/19/2020 (more content not included)... Normal [facility] Vital Signs Date Time Vital Sign Value Performing Clinician Facility 09-14-2024 09:59-0400 Body height 167.6 cm Ole Yang MD Work Phone: [facility] 09-14-2024 09:59-0400 Body mass index (BMI) [Ratio] 27.92 kg/m2 Ole Yang MD Work Phone: [facility] 09-14-2024 09:59-0400 Body weight 78.47 kg Ole Yang MD Work Phone: [facility] 09-14-2024 09:59-0400 Diastolic blood pressure 64 mm[Hg] Ole Yang MD Work Phone: [facility] 09-14-2024 09:59-0400 Heart rate 70 /min Ole Yang MD Work Phone: [facility] 09-14-2024 09:59-0400 SaO2% (BldA) [Mass fraction] 98 % Ole Yang MD Work Phone: [facility] 09-14-2024 09:59-0400 Systolic blood pressure 126 mm[Hg] Ole Yang MD Work Phone: [facility] 08-15-2024 14:30-0400 Body height 167.6 cm Ole Yang MD Work Phone: [facility] 08-15-2024 14:30-0400 Body mass index (BMI) [Ratio] 27.76 kg/m2 Ole Yang MD Work Phone: [facility] 08-15-2024 14:30-0400 Body weight 78.02 kg Ole Yang MD Work Phone: [facility] 08-15-2024 14:30-0400 Diastolic blood pressure 78 mm[Hg] Ole Yang MD Work Phone: [facility] 08-15-2024 14:30-0400 Heart rate 70 /min Ole Yang MD Work Phone: [facility] 08-15-2024 14:30-0400 Respiratory rate 17 /min Ole Yang MD Work Phone: [facility] 08-15-2024 14:30-0400 SaO2% (BldA) [Mass fraction] 99 % Ole Yang MD Work Phone: [facility] 08-15-2024 14:30-0400 Systolic blood pressure 120 mm[Hg] Ole Yang MD Work Phone: [facility] 06-02-2024 09:47-0400 Body height 167.6 cm Dipti VEGA Work Phone: [facility] 06-02-2024 09:47-0400 Body mass index (BMI) [Ratio] 28.47 kg/m2 Dipti VEGA Work Phone: [facility] 06-02-2024 09:47-0400 Body temperature 99.19 [degF] Dipti VEGA Work Phone: [facility] 06-02-2024 09:47-0400 Body weight 80.02 kg Dipti Hemmer PA Work Phone: [facility] 06-02-2024 09:47-0400 Diastolic blood pressure 64 mm[Hg] Dipti Hemmer PA Work Phone: [facility] 06-02-2024 09:47-0400 Heart rate 70 /min Dipti Hemmer PA Work Phone: [facility] 06-02-2024 09:47-0400 Respiratory rate 16 /min Dipti Hemmer PA Work Phone: [facility] 06-02-2024 09:47-0400 SaO2% (BldA) [Mass fraction] 99 % Dipti Hemmer PA Work Phone: [facility] 06-02-2024 09:47-0400 Systolic blood pressure 102 mm[Hg] Dipti Hemmer PA Work Phone: [facility] 06-01-2024 10:07-0400 Body height 170.2 cm Teri Martinez MD Work Phone: [facility] 06-01-2024 10:07-0400 Body mass index (BMI) [Ratio] 27.88 kg/m2 Teri Martinez MD Work Phone: [facility] 06-01-2024 10:07-0400 Body weight 80.74 kg Teri Martinez MD Work Phone: [facility] 06-01-2024 10:07-0400 Diastolic blood pressure 82 mm[Hg] Teri Martinez MD Work Phone: [facility] 06-01-2024 10:07-0400 Heart rate 70 /min Teri Martinez MD Work Phone: [facility] 06-01-2024 10:07-0400 Respiratory rate 16 /min Teri Martinez MD Work Phone: [facility] 06-01-2024 10:07-0400 SaO2% (BldA) [Mass fraction] 89 % Teri Martinez MD Work Phone: [facility] 06-01-2024 10:07-0400 Systolic blood pressure 142 mm[Hg] Teri Martinez MD Work Phone: [facility] 03-30-2024 09:57-0500 Body height 167.6 cm Ole Yang MD Work Phone: [facility] 03-30-2024 09:57-0500 Body mass index (BMI) [Ratio] 28.25 kg/m2 Ole Yang MD Work Phone: [facility] 03-30-2024 09:57-0500 Body weight 79.38 kg Ole Yang MD Work Phone: [facility] 03-30-2024 09:57-0500 Diastolic blood pressure 78 mm[Hg] Ole Yang MD Work Phone: [facility] 03-30-2024 09:57-0500 Heart rate 69 /min Ole Yang MD Work Phone: [facility] 03-30-2024 09:57-0500 SaO2% (BldA) [Mass fraction] 98 % Ole Yang MD Work Phone: [facility] 03-30-2024 09:57-0500 Systolic blood pressure 128 mm[Hg] Ole Yang MD Work Phone: [facility] 02-25-2024 10:03-0500 Body height 167.6 cm Dipti Anderson PA Work Phone: [facility] 02-25-2024 10:03-0500 Body mass index (BMI) [Ratio] 28.89 kg/m2 Dipti Anderson PA Work Phone: [facility] 02-25-2024 10:03-0500 Body weight 81.19 kg Dipti Hemmer PA Work Phone: [facility] 02-25-2024 10:03-0500 Diastolic blood pressure 66 mm[Hg] Dipti Varelamer PA Work Phone: [facility] 02-25-2024 10:03-0500 Heart rate 74 /min Dipti Hemmer PA Work Phone: [facility] 02-25-2024 10:03-0500 Respiratory rate 20 /min Dipti Hemmer PA Work Phone: [facility] 02-25-2024 10:03-0500 SaO2% (BldA) [Mass fraction] 99 % Dipti Hemmer PA Work Phone: [facility] 02-25-2024 10:03-0500 Systolic blood pressure 108 mm[Hg] Dipti Hemmer PA Work Phone: [facility] 12-02-2023 10:08-0400 Body height 167.6 cm Teri Martinez MD Work Phone: [facility] 12-02-2023 10:08-0400 Body mass index (BMI) [Ratio] 28.73 kg/m2 Teri Martinez MD Work Phone: [facility] 12-02-2023 10:08-0400 Body weight 80.74 kg Teri Martinez MD Work Phone: [facility] 12-02-2023 10:08-0400 Diastolic blood pressure 70 mm[Hg] Teri Martinez MD Work Phone: [facility] 12-02-2023 10:08-0400 Heart rate 87 /min Teri Martinez MD Work Phone: [facility] 12-02-2023 10:08-0400 Respiratory rate 18 /min Teri Martinez MD Work Phone: [facility] 12-02-2023 10:08-0400 Systolic blood pressure 102 mm[Hg] Teri Martinez MD Work Phone: [facility] 11-26-2023 09:56-0400 Body height 170.2 cm Dipti Hemmer PA Work Phone: [facility] 11-26-2023 09:56-0400 Body mass index (BMI) [Ratio] 27.82 kg/m2 Dipti Hemmer PA Work Phone: [facility] 11-26-2023 09:56-0400 Body weight 80.56 kg Dipti Hemmer PA Work Phone: [facility] 11-26-2023 09:56-0400 Diastolic blood pressure 74 mm[Hg] Dipti Hemmer PA Work Phone: [facility] Comment on above: home BP monitor 141/ 81 11-26-2023 09:56-0400 Heart rate 71 /min Dipti Hemmer PA Work Phone: [facility] 11-26-2023 09:56-0400 Respiratory rate 16 /min Dipti Hemmer PA Work Phone: [facility] 11-26-2023 09:56-0400 SaO2% (BldA) [Mass fraction] 99 % Dipti Hemmer PA Work Phone: [facility] 11-26-2023 09:56-0400 Systolic blood pressure 128 mm[Hg] Dipti Hemmer PA Work Phone: [facility] Comment on above: home BP monitor 141/ 81 02-11-2023 14:43-0500 Body height 170.2 cm Ole Yang MD Work Phone: [facility] 02-11-2023 14:43-0500 Body mass index (BMI) [Ratio] 26.94 kg/m2 Ole Yang MD Work Phone: [facility] 02-11-2023 14:43-0500 Body weight 78.02 kg Ole Yang MD Work Phone: [facility] 02-11-2023 14:43-0500 Diastolic blood pressure 70 mm[Hg] Ole Yang MD Work Phone: [facility] 02-11-2023 14:43-0500 Heart rate 76 /min Ole Yang MD Work Phone: [facility] 02-11-2023 14:43-0500 Systolic blood pressure 126 mm[Hg] Ole Yang MD Work Phone: [facility] Encounters Encounter Date Encounter Type Care Provider Facility Start: 09-29-2024 ambulatory NILE DANIKA [facility] Start: 09-26-2024 End: 09-26-2024 Clinisync Result Encounter Ole Yang MD Work Phone: [facility] Unsolicited Start: 09-26-2024 End: 09-28-2024 Clinisync Result Encounter Ole Yang MD Work Phone: [facility] Unsolicited Start: 09-26-2024 End: 09-28-2024 External Result Encounter Ole Yang MD Work Phone: [facility] Unsolicited Start: 09-26-2024 End: 09-26-2024 ambulatory Ole Yang [facility] Work Phone: Start: 09-26-2024 End: 09-26-2024 Departed Referred Ole Yang II, MD -[facility] [place] [facility] Start: 09-14-2024 End: 09-14-2024 Bamboo flowsheet Ole Yang MD Work Phone: [facility] Start: 09-14-2024 End: 09-14-2024 Bamboo flowsheet Ole Yang MD Work Phone: [facility] Start: 09-14-2024 End: 09-14-2024 Office outpatient visit 25 minutes Ole Yang MD Work Phone: [facility] Comment on above: Chronic kidney disea se, stage 3b (CMS-HCC) (Primary Dx); Chronic combined systolic (congestive) and diastolic (congestive) heart failure (HCC); Supplemental oxygen dependent; Anxiety; Hyperthyroidism ; 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 ; Panlobular emphysema (HCC); Deformity of toenail Start: 09-14-2024 End: 09-14-2024 ambulatory OLE YANG Not Available Start: 09-06-2024 End: 09-08-2024 Refill Ole Yang MD Work Phone: [facility] Comment on above: Anxiety Start: 09-02-2024 ambulatory NILE DANIKA [facility] Start: 08-18-2024 End: 08-18-2024 Clinisync Result Encounter Generic External Data Provider [facility] Unsolicited Start: 08-18-2024 End: 08-18-2024 Clinisync Result Encounter Generic External Data Provider [facility] External [facility] Unsolicited Start: 08-15-2024 End: 08-15-2024 Office outpatient visit 25 minutes Ole Yang MD Work Phone: [facility] Comment on above: Dementia with behavi oral disturbance (HCC) (Primary Dx); Pulmonary emphysema, unspecified emphysema type (HCC); Hypoxia; Chronic combined systolic (congestive) and diastolic (congestive) heart failure (HCC); Chronic kidney disease, stage 3b (CMS-HCC); 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 Start: 08-15-2024 End: 08-15-2024 ambulatory OLE YANG Not Available Start: 08-15-2024 End: 08-15-2024 Bamboo flowsheet Ole Yang MD Work Phone: [facility] Start: 08-15-2024 End: 08-15-2024 Bamboo flowsheet Ole Yang MD Work Phone: [facility] Start: 08-11-2024 End: 08-11-2024 [facility] Start: [facility] Start: 07-22-2024 End: 07-25-2024 Clinisync Result Encounter Generic External Data Provider [facility] External [facility] Unsolicited Start: 07-22-2024 End: 07-25-2024 Clinisync Result Encounter Generic External Data Provider [facility] External Department Unsolicited Start: 07-22-2024 End: 07-22-2024 ambulatory Luis E Winkler [facility] Work Phone: Start: 07-22-2024 End: 07-22-2024 Departed Referred Michael Zapien Work Phone: [facility] Start: 07-19-2024 End: 07-19-2024 ambulatory [facility] Start: 07-07-2024 End: 07-07-2024 ambulatory DIPTI ANDERSON Not Available Start: 07-01-2024 ambulatory [facility] Start: 06-02-2024 End: 06-02-2024 Patient encounter procedure Dipti VEGA Work Phone: [facility] [...] of left ventricle; 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 (CMS/HCC); Primary hypertension [...] Primary ovarian failure; Anxiety; 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; Diplopia; Elevated liver enzymes; Frequent falls; History of stroke without residual deficits; Memory changes; 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); COPD exacerbation (CMS/HCC) Start: 06-02-2024 End: 06-02-2024 ambulatory DIPTI ANDERSON Not Available Start: 06-01-2024 End: 06-01-2024 Bamboo flowsheet Teri Martinez MD Work Phone: [facility] Start: 06-01-2024 End: 06-01-2024 Bamboo flowsheet Teri Martinez MD Work Phone: [facility] Start: 06-01-2024 End: 06-01-2024 Office outpatient visit 25 minutes Teri Martinez MD Work Phone: [facility] Comment on above: Hyperthyroidism (CMS /HCC) (Primary Dx); Multinodular goiter (CMS/HCC); Longstanding persistent atrial fibrillation (CMS/HCC) Start: 06-01-2024 End: 06-01-2024 ambulatory TERI MARTINEZ Not Available Start: 05-25-2024 ambulatory [facility] Start: 05-23-2024 End: 05-23-2024 Clinisync Result Encounter Generic External Data Provider [facility] External [facility] Unsolicited Start: 05-23-2024 End: 05-23-2024 Clinisync Result Encounter Generic External Data Provider [facility] External [facility] Unsolicited Start: 05-12-2024 End: 05-13-2024 Refill Annalisemelissa Paniagua [employer] [facility] Comment on above: Anxiety Start: 04-25-2024 ambulatory [facility] Start: 03-30-2024 End: 03-30-2024 Bamboo flowsheet Ole Yang MD Work Phone: [facility] Start: 03-30-2024 End: 03-30-2024 [facility] Work Phone: [facility] Start: 03-30-2024 End: 03-30-2024 Office outpatient visit 10 minutes Ole Yang MD Work Phone: [facility] Comment on above: Pulmonary emphysema, unspecified emphysema type (CMS/HCC) (Primary Dx); Age-related osteoporosis without current pathological fracture (CMS/HCC) Start: 03-30-2024 End: 03-30-2024 ambulatory OLE YANG Not Available Start: 02-29-2024 ambulatory [facility] Start: 02-25-2024 End: 02-25-2024 Bamboo flowstod Anderson PA Work Phone: [facility] Start: 02-25-2024 End: 02-25-2024 Bamboo flowstod Anderson PA Work Phone: [facility] Start: 02-25-2024 End: 02-25-2024 Office outpatient visit 25 minutes Dipti VEGA Work Phone: [facility] Comment on above: Panlobular emphysema (CMS/HCC) (Primary Dx); Benign hypertensive heart disease with heart failure (CMS/HCC); Impaired fasting glucose; 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 (CMS/HCC); Age-related osteoporosis without current pathological fracture (CMS/HCC); Cardiomyopathy, unspecified (CMS/HCC); Longstanding persistent atrial fibrillation (CMS/HCC); Chronic obstructive pulmonary disease, unspecified (CMS/HCC); Chronic kidney disease, stage 3b (HCC) (CMS/HCC); 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); Chronic atrial fibrillation, unspecified (CMS/HCC); Supplemental oxygen dependent Start: 02-25-2024 End: 02-25-2024 ambulatory DIPTI ANDERSON Not Available Start: 02-04-2024 ambulatory [facility] Start: 01-25-2024 End: 01-25-2024 ambulatory [facility] Start: 12-08-2023 ambulatory [facility] Start: 12-08-2023 Encounter for preprocedural cardiovascular examination [facility] Start: 12-03-2023 ambulatory [facility] Start: 12-02-2023 End: 12-02-2023 Lina Martinez MD Work Phone: [facility] Start: 12-02-2023 End: 12-02-2023 Lina Martinez MD Work Phone: [facility] Start: 12-02-2023 End: 12-02-2023 Office outpatient visit 25 minutes Teri Martinez MD Work Phone: [facility] Comment on above: Hyperthyroidism (CMS /HCC) [...] Comment on above: Anxiety Start: 10-26-2023 ambulatory [facility] Start: 10-16-2023 ambulatory [facility] Start: 04-27-2023 End: 04-27-2023 ambulatory [facility] Start: 04-27-2023 End: 04-27-2023 Office outpatient visit 15 minutes [facility] OD Work Phone: [facility] Comment on above: Esotropia of right e ye (Primary Dx); Right abducens nerve palsy; Double vision Start: 02-11-2023 End: 02-11-2023 Office outpatient visit 15 minutes Ole Yang MD Work Phone: [facility] Comment on above: Leg hematoma, right, initial encounter (Primary Dx); Current use of care home anticoagulation; Localized edema Start: 05-14-2022 End: 05-15-2022 ambulatory BERNARD MARTINEZ Facility:[facility] Start: 03-19-2022 End: 03-20-[address] DIPTI ANDERSON Facility:[facility] Start: 12-23-2021 End: 12-24-2021 ambulatory SHELDON GOTTLIEB Facility:[facility] Start: 11-25-2021 End: 11-26-2021 [facility] Start: 09-04-2021 End: 09-05-2021 ambulatory SHELDON GOTTLIEB Facility:[facility] Start: 08-23-2021 Encounter for other preprocedural examination [facility] Start: 08-23-2021 Encounter for preprocedural laboratory examination [facility] Start: 08-22-2021 End: 08-23-2021 ambulatory KEANU ISLAS Facility:[facility] Start: 08-21-2021 End: 08-22-2021 ambulatory KEANU ISLAS Facility:[facility] Start: 08-20-2021 End: 08-21-2021 ambulatory SHELDON GOTTLIEB Facility:[facility] Start: 08-20-2021 End: 08-21-2021 Encounter for other preprocedural examination SHELDON GOTTLIEB Facility:[facility] Start: 07-30-2021 End: 07-31-2021 ambulatory SHELDON GOTTLIEB Facility:[facility] Start: 06-28-2021 End: 06-29-2021 ambulatory MERYL ANTON Facility:[facility] Start: 06-20-2021 Encounter for other specified special examinations [facility] Start: 06-18-2021 End: 06-19-2021 ambulatory SHELDON GOTTLIEB Facility:[facility] Start: 06-18-2021 End: 06-19-2021 Encounter for other specified special examinations MERYL WONGS Facility:[facility] Start: 06-17-2021 End: 06-17-[address] MAYRA CHOI Facility:[facility] Start: 06-12-2021 End: 06-13-2021 ambulatory SHELDON GOTTLIEB Facility:[facility] Start: 06-04-2021 End: 06-04-2021 ambulatory GABRIEL Leandra GREEN Facility: Start: 12-28-2020 End: 12-29-2020 ambulatory KEANU ISLAS Facility:[facility] Start: 11-19-2020 End: 11-20-2020 ambulatory KEANU ISLAS Facility:[facility] Start: 10-25-2003 Evaluation and manag ement of inpatient Michael Zapien Work Phone: [facility] [place] [facility] Work Phone: Procedures Date Procedure Procedure Detail Performing Clinician Start: 09-26-2024 ALL URINALYSIS Ole Yang MD Work Phone: Start: 09-26-2024 Culture bacterial quanttative colony count urine Ole Yang MD Work Phone: Start: 08-18-2024 ALL LIPID PROFILE (FASTING) Generic External Data Provider Start: 08-18-2024 [facility] ALT Generic Ex ternal Data Provider Start: 08-18-2024 [facility] AST Generic Ex ternal Data Provider Start: 07-22-2024 Urine culture Michael healy Work Phone: Start: 07-22-2024 URINE CULTURE - [facility] External Data Provider Start: 05-23-2024 [...] Start: 11-30-2024 End: 11-30-2024 Patient encounter procedure [facility] Start: 10-26-2024 End: 10-26-2024 Patient encounter procedure 10/26/2024 9:30 AM EDT Office Visit [facility] [place] [facility] [address] [facility] [address] [place] [address] Ole Yang MD [address] [place] [address] [facility] [place] [facility] Start: 10-17-2024 Influenza vaccination Influenza Vaccine (#1) [facility] Start: 10-13-2024 End: 10-13-2024 Patient encounter procedure 10/13/2024 9:30 AM EDT Office Visit [facility] [address] [facility] [address] [place] [address] Kenneth Clifton, DPM [address] [address] [facility] Start: 09-27-2024 Bacteria identified in Urine by Culture Urine Culture [facility] Start: 09-27-2024 Urine culture [facility] Start: 09-14-2024 End: 09-14-2024 Patient encounter procedure [facility] Comment on above: Arrived Start: 08-31-2024 End: 08-31-2024 Patient encounter procedure 08/31/2024 9:30 AM EDT Office Visit [facility] [address] [facility] [address] [place] [address] Dipti Anderson PA [address] [facility] [address] [place] [address] [facility] Start: 08-15-2024 End: 08-15-2024 Patient encounter procedure 08/15/2024 2:30 PM EDT Office Visit [facility] [address] [facility] [address] [place] [address] Ole Yang MD [address] [facility] [address] [place] [address] Arrived [facility] Comment on above: Arrived Start: 08-11-2024 End: 08-11-2024 Patient encounter procedure 08/11/2024 10:00 AM EDT Office Visit [facility] [address] [place] [address] Dipti Anderson PA [address] [place] [address] [facility] Start: 07-22-2024 Bacteria identified in Urine by Culture Urine Culture [facility] Start: 07-22-2024 Urine culture [facility] Start: 06-02-2024 End: 06-02-2025 DXA Skeletal system Views for bone density DEXA bone density Imaging Routine Estrogen deficiency Expected: 06/02/2024, Expires: 06/02/2025 [facility] Work Phone: Comment on above: Expected: 06/02/2024, Expires: Start: 06-02-2024 End: 06-02-2024 Patient encounter procedure 06/02/2024 9:30 AM EDT Office Visit [facility] [address] [facility] [address] [place] [address] Dipti Anderson PA [address] [facility] [address] [place] [address] [facility] Start: 06-01-2024 End: 06-01-2025 Thyrotropin [Units/volume] in Serum or Plasma TSH Lab Routine Hyperthyroidism ([facility]) Expected: 06/01/2024 (Approximate), Expires: 06/01/2025 [facility] Comment on above: Expected: 06/01/2024 (Approximate), Expi res: 06/01/2025 Start: 06-01-2024 End: 06-01-2025 Thyroxine (T4) free [Mass/volume] in Serum or Plasma T4, free Lab Routine Hyperthyroidism ([facility]) Expected: 06/01/2024 (Approximate), Expires: 06/01/2025 [facility] Comment on above: Expected: 06/01/2024 (Approximate), Expi res: 06/01/2025 Start: 06-01-2024 End: 06-01-2025 Triiodothyronine (T3) Free [Mass/volume] in Serum or Plasma T3, free Lab Routine Hyperthyroidism (CMS/HCC) Expected: 06/01/2024 (Approximate), Expires: 06/01/2025 [facility] Work Phone: Comment on above: Expected: 06/01/2024 (Approximate), Expi res: 06/01/2025 Start: 06-01-2024 End: 06-01-2024 Patient encounter procedure [facility] Comment on above: Arrived Start: 05-30-2024 End: 05-30-2024 Patient encounter procedure 05/30/2024 9:30 AM EDT Office Visit [facility] [address] [place] [address] Dipti Anderson PA [address] [place] [address] [facility] Start: 05-26-2024 Medicare Annual Wellness (AWV) Medicare Annual Wellness (AWV) [facility] Start: 04-26-2024 Tobacco Screening Tobacco Screening [facility] Start: 03-30-2024 End: 03-30-2024 Patient encounter procedure 03/30/2024 10:15 AM EST Office Visit [facility] [address] [place] [address] Ole Yang MD [address] [place] [address] Arrived [facility] Comment on above: Arrived Start: 02-25-2024 End: 02-24-2025 25-hydroxyvitamin D3 [Mass/volume] in Serum or Plasma Vitamin D 25 hydroxy Total Lab Routine 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 (CMS/HCC) Age-related osteoporosis without current pathological fracture (CMS/HCC) Expected: 02/25/2024 (Approximate), Expires: 02/24/2025 [facility] Comment on above: Expected: 02/25/2024 (Approximate), Expi res: 02/24/2025 Start: 02-25-2024 End: 02-24-2025 Basic metabolic 1998 panel - Serum or Plasma Basic metabolic panel Lab Routine Benign hypertensive heart disease with heart failure (CMS/HCC) Impaired fasting glucose Expected: 02/25/2024 (Approximate), Expires: 02/24/2025 [facility] Comment on above: Expected: 02/25/2024 (Approximate), Expi res: 02/24/2025 Start: 02-25-2024 End: 02-24-2025 CBC W Auto Differential panel - Blood CBC and differential Lab Routine 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 (CMS/HCC) Expected: 02/25/2024 (Approximate), Expires: 02/24/2025 [facility] Work Phone: Comment on above: Expected: 02/25/2024 (Approximate), Expi res: 02/24/2025 Start: 02-25-2024 End: 02-24-2025 Hemoglobin A1c/Hemoglobin.total in Blood Hemoglobin A1c Lab Routine Impaired fasting glucose Expected: 02/25/2024 (Approximate), Expires: 02/24/2025 [facility] Comment on above: Expected: 02/25/2024 (Approximate), Expi res: 02/24/2025 Start: 02-25-2024 End: 02-24-2025 Lipid 1996 panel - Serum or Plasma Lipid panel Lab Routine 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 (CMS/HCC) Expected: 02/25/2024 (Approximate), Expires: 02/24/2025 [facility] Comment on above: Expected: 02/25/2024 (Approximate), Expi res: 02/24/2025 Start: 02-25-2024 End: 02-25-2024 Patient encounter procedure [facility] Comment on above: [facility] Start: 12-04-2023 Adult BMI Screening Adult BMI Screening [facility] Start: 12-02-2023 End: 12-01-2024 Hepatic function 2000 panel - Serum or Plasma Hepatic function panel Lab Routine Hyperthyroidism (CMS/HCC) Expected: 12/02/2023 (Approximate), Expires: 12/01/2024 [facility] Comment on above: Expected: 12/02/2023 (Approximate), Expi res: 12/01/2024 Start: 12-02-2023 End: 12-01-2024 Thyrotropin [Units/volume] in Serum or Plasma TSH Lab Routine Hyperthyroidism ([facility]/HCC) Expected: 12/02/2023 (Approximate), Expires: 12/01/2024 [facility] Comment on above: Expected: 12/02/2023 (Approximate), Expi res: 12/01/2024 Start: 12-02-2023 End: 12-01-2024 Thyroxine (T4) free [Mass/volume] in Serum or Plasma T4, free Lab Routine Hyperthyroidism (CMS/HCC) Expected: 12/02/2023 (Approximate), Expires: 12/01/2024 [facility] Comment on above: Expected: 12/02/2023 (Approximate), Expi res: 12/01/2024 Start: 12-02-2023 End: 12-01-2024 Triiodothyronine (T3) Free [Mass/volume] in Serum or Plasma T3, free Lab Routine Hyperthyroidism ([facility]/HCC) Expected: 12/02/2023 (Approximate), Expires: 12/01/2024 [facility] Work Phone: Comment on above: Expected: 12/02/2023 (Approximate), Expi res: 12/01/2024 Start: 12-02-2023 End: 12-02-2023 Patient encounter procedure [facility] Comment on above: Arrived Start: 11-26-2023 End: 11-26-2023 Patient encounter procedure [facility] Comment on above: Arrived Start: 10-18-2023 Influenza vaccination Influenza Vaccine (#1) [facility] Start: 08-17-2007 Fall Risk Screening Fall Risk Screening [facility] Start: 1961 DTaP,Tdap and Td Vaccines (1 - Tdap) DTaP,Tdap and Td Vaccines (1 - Tdap) [facility] Start: 1960 Adult BMI Follow Up Plan Adult BMI Follow Up Plan [facility] Start: 1954 Depression Screening Depression Screening [facility] Start: 1940 Medicare Annual Wellness Visit Medicare Annual Wellness Visit [facility] Bacteria identified in Urine by Culture Urine culture Microbiology Routine 09/26/2024 1:30 PM EDT [facility] Work Phone: Immunizations Immunization Date Immunization Notes Care Provider Candace mueller 12-10-2023 SARS-COV-2 (COVID-19 ) vaccine, mRNA, spike protein, LNP, PF, robert-sucrose, 30 mcg/0.3 mL Dipti Hemmer PA Work Phone: [facility] 11-26-2023 Influenza, High-dose Seasonal, Quadrivalent, Preservative Free Dipti Hemmer PA Work Phone: [facility] 11-26-2023 influenza virus vacc ine, unspecified formulation Generic Provider [facility] 01-01-2023 SARS-COV-2 (COVID-19 ) vaccine, mRNA, spike protein, LNP, PF, robert-sucrose, 30 mcg/0.3 mL Dipti Hemmer PA Work Phone: [facility] 01-01-2023 zoster vaccine recombinant K aren Hemmer PA Work Phone: [facility] 12-10-2022 ABRYSVO - Respirator y syncytial virus (RSV), vaccine, bivalent, protein subunit RSV prefusion F, diluent reconstituted, 0.5 mL, PF Dipti Hemmer PA Work Phone: [facility] 11-26-2022 Influenza, Seasonal, Quadrivalent, Adjuvanted Dipti Hemmer PA Work Phone: [facility] 11-26-2022 influenza virus vacc ine, unspecified formulation Dipti Hemmer PA Work Phone: [facility] 04-16-2022 zoster vaccine recombinant K aren Hemmer PA Work Phone: [facility] 12-10-2021 influenza, high dose seasonal, preservative-free Dipti Hemmer PA Work Phone: [facility] 12-10-2021 Moderna SARS-CoV-2 50mcg/0.5mL Booster Dipti Hemmer PA Work Phone: [facility] 01-17-2021 influenza, high dose seasonal, preservative-free Dipti Hemmer PA Work Phone: [facility] 01-10-2020 Seasonal trivalent influenza vaccine, adjuvanted, preservative free Dipti Hemmer PA Work Phone: [facility] 02-23-2019 pneumococcal polysaccharide vaccine, 23 valent Dipti Hemmer PA Work Phone: [facility] 11-25-2018 Seasonal trivalent influenza vaccine, adjuvanted, preservative free Dipti Hemmer PA Work Phone: [facility] 06-25-2018 pneumococcal conjuga te vaccine, 13 valent Dipti Hemmer PA Work Phone: [facility] 12-02-2017 Influenza, High-dose Seasonal, Quadrivalent, Preservative Free Dipti Hemmer PA Work Phone: [facility] 12-11-2016 Influenza, High-dose Seasonal, Quadrivalent, Preservative Free Dipti Hemmer PA Work Phone: [facility] 08-17-2007 pneumococcal polysaccharide vaccine, 23 valent Dipti Hemmer PA Work Phone: [facility] Payers Date Payer Category Payer Self-pay 2022 Private Health Insurance [facility] MED ICARE SUPPLEMENT [id number] 2022 Unknown [employer]CIAL [employer]ME RCIAL - GENERIC PLAN [id number] 2022-Present [phone] [address] [address] [place] [address] [id number] 2004 Medicare [id number] 1959 Medicare [id number] 1959 Unknown [id number] 1942 Unknown [id number] 2.16.840.1.961233.3.579.2 .647 1942 Unknown [id number] 2.16.840.1.123279.3.579.2 .647 1942 Unknown [id number] 2.16.840.1.746746.3.579.2 .647 1942 Unknown [id number] 2.16.840.1.655336.3.579.2 .593 1942 Unknown [id number] 2.16.840.1.599516.3.579.2 .593 1942 Unknown [id number] 2.16.840.1.570988.3.579.2 .593 1942 Unknown [id number] 2.16.840.1.884498.3.579.2 .593 1942 Unknown [id number] 2.16.840.1.737840.3.579.2 .593 1942 Unknown [id number] 2.16.840.1.830833.3.579.2 .593 1942 Unknown [id number] 2.16.840.1.106425.3.579.2 .593 1942 Unknown [id number] 2.16.840.1.534442.3.579.2 .593 1942 Unknown [id number] 2.16.840.1.164647.3.579.2 .593 1942 Unknown [id number] 2.16.840.1.635665.3.579.2 .593 1942 Unknown [id number] 2.16.840.1.991749.3.579.2 .593 1942 Unknown [id number] 2.16.840.1.456105.3.579.2 .593 1942 Unknown [id number] 2.16.840.1.406008.3.579.2 .593 1942 Unknown [id number] 2.16.840.1.283499.3.579.2 .593 1942 Unknown [id number] 2.16.840.1.842883.3.579.2 .593 1942 Unknown [id number] 2.16.840.1.572873.3.579.2 .1286 1942 Unknown [id number] 2.16.840.1.538046.3.579.2 .1259 1942 Unknown [id number] 2.840.1.802911.3.579.2 .1259 1942 Unknown [id number] 2.16.840.1.288419.3.579.2 .1259 1942 Unknown [id number] 2..840.1.904679.3.579.2 .1259 1942 Unknown [id number] 2..840.1.937666.3.579.2 .1259 1942 Unknown [id number] 2.840.1.706582.3.579.2 .1259 1942 Unknown [id number] 2.16.840.1.582005.3.579.2 .1259 1942 Unknown [id number] 2.16.840.1.412835.3.579.2 .1259 1942 Unknown [id number] 2.16840.1.485457.3.579.2 .1259 Medicare Medicare [id number] Unknown [id number] 2.16.840.1.040379.3.579.2 .531 Unknown [id number] 2.16.840.1.182000.3.579.2 .531 Social History Date Type Detail Facility Start: 07-28-2022 End: 08-13-2022 Tobacco smoking status NHIS Never smoked tobacco [facility] Start: 07-28-2022 End: 08-13-2022 Tobacco use and exposure Smokeless tobacco non-user [facility] Start: 02-11-2023 End: 09-14-2024 Alcoholic beverage intake Lifetime non-drinker (finding) [facility] Start: 10-29-2023 End: 06-01-2024 History of Social function [facility] Work Phone: Start: 10-29-2023 End: 06-01-2024 [id number] Health Literacy [facility] Work Phone: How often do you nee d to have someone help you when you read instructions, pamphlets, or other written material from your doctor or pharmacy [SILS] Often [facility] Work Phone: Within the last year [...] Sex assigned at Not on file P [facility] How often do you nee d to [...] medical care, and heating Not very hard [facility] Do you feel stress - tense, restless, nervous, or anxious, or unable to sleep at night because your mind is troubled all the time - these days [OSQ] Rather much [facility] Work Phone: Start: 07-23-2024 Sex Female (finding) [facility] Start: 1940 Sex Assigned At Female F [facility] Functional Status Date Assessment Result Facility 09-14-2024 Patient Health Quest ionnaire 2 item (PHQ-2) [Reported] [facility] 08-15-2024 Patient Health Quest ionnaire 2 item (PHQ-2) [Reported] [facility] 08-15-2024 PHQ-9 quick depressi on assessment panel [Reported.PHQ] [facility] 06-02-2024 Patient Health Quest ionnaire 2 item (PHQ-2) [Reported] [facility] 06-01-2024 Total score [AUDIT-C] 0 06/02/19 25 10:00 AM EDT Mychart, Generic [facility] 06-01-2024 How often to you hav e a drink containing alcohol? Never 06/01/2024 10:00 AM EDT Mychart, Generic Never [facility] 06-01-2024 Functional status Patient does n ot drink 06/01/2024 10:00 AM EDT Mychart, Generic Patient does not drink [facility] 06-01-2024 How often do you hav e 6 or more drinks on 1 occasion? Never 06/01/2024 10:00 AM EDT Mychart, Generic Never [facility] Clinical Notes 06-17-2021 to 09-14-2024 Ole Yang MD - 09/14/2024 10:00 AM EDTTelephone Encounter - SILVIA Branham - 09/08/2024 7:03 PM EDTTelephone Encounter - SILVIA Branham - 09/08/2024 7:03 PM EDT Note Date & Type Note Facility 09-14-2024 History of Presen t illness Narrative Subjective Patient ID: Lluvia Moreno is a 84 y.o. female who presents for Congestive Heart Failure and Hypertension. Congestive Heart Failure Patient presents for re-evaluation of congestive heart failure. Patient's current complaints are lower extremity edema. She denies chest pain, chest pressure/discomfort, irregular heart beat, paroxysmal nocturnal dyspnea, and syncope. She states she is compliant all of the time with her medications. Hypertension Patient is here for follow-up of elevated blood pressure. Blood pressure is well controlled at home. Cardiac symptoms: lower extremity edema. Patient denies chest pain, irregular heart beat, near-syncope, paroxysmal nocturnal dyspnea, and syncope. Cardiovascular risk factors: advanced age (older than 55 for men, 65 for women), hypertension, and sedentary lifestyle. Pt was discharged from [facility] 3 weeks ago--med list has been updated Congestive Heart Failure Hypertension Over the past 2 weeks, how often have you been bothered by any of the following problems? Little interest or pleasure in doing things: Not at all Feeling down, depressed, or hopeless: Not at all Patient Health Questionnaire-2 Score: 0 Current Outpatient Medications on File Prior to [...] then 0.5 mg daily. 60 tablet 2 Calcium Carb-Cholecalciferol 600-200 MG-UNIT tablet Take 2 tablets by mouth 1 (one) time each day at the same time cholecalciferol (Vitamin D-3) 50 MCG (2000 UT) capsule Take 2,000 Units by mouth Daily lisinopril 5 MG tablet Take 0.5 tablets (2.5 mg) by mouth in the morning. 100 tablet 1 methIMAzole (Tapazole) 5 MG tablet Take 5 mg by mouth Daily metoprolol succinate XL (Toprol-XL) 50 MG 24 [...] mg) by mouth Daily 90 tablet 3 bumetanide (Bumex) 1 MG tablet Take 1 mg by mouth Daily PRN (Patient not taking: Reported on 09/14/2024) [DISCONTINUED] Brexpiprazole (Rexulti) 0.5 MG tablet Take .25 mg daily 15 tablet 3 [DISCONTINUED] Zgeufui-Ussbtvrtehm-Dygokyliph (Breztri Aerosphere) 160-9-4.8 MCG/ACT aerosol Inhale 2 puffs in the morning and 2 puffs before bedtime. 10.7 g 3 [DISCONTINUED] LORazepam (Ativan) 0.5 MG tablet Take 1 tablet (0.5 mg) by mouth as needed at bedtime for anxiety [DISCONTINUED] LORazepam (Ativan) 0.5 MG tablet Take 1 tablet (0.5 mg) by mouth every 6 (six) hours if needed for anxiety 90 tablet 0 [DISCONTINUED] methIMAzole (Tapazole) 10 MG tablet TAKE ONE-HALF (1/2) TABLET ON THURSDAY, THURSDAY, THURSDAY AND THURSDAY (Patient taking differently: Take 5 mg by mouth TABLET ON THURSDAY, THURSDAY, THURSDAY AND THURSDAY) 26 tablet 3 No current facility-administered medications on [...] left/ right dr inman 2011 Visit Vitals BP 126/64 Pulse 70 Ht 5' 6 Wt 173 lb SpO2 98% BMI 27.92 kg/m Smoking Status Never BSA 1.91 m [...] Diagnoses and all orders for this visit: Chronic kidney disease, stage 3b (CMS-HCC) - GRF high 40s, stable X years. Chronic combined systolic (congestive) and diastolic (congestive) heart failure (HCC) - No current active congestive heart failure. Dyspnea at exertion, but not at rest. No evidence of pulmonary edema. Medications unchanged. 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 documented in this encounter [facility] 09-08-2024 Telephone encounter Note OARRS reviewed, Rx sent into patient's pharmacy. [facility] 09-08-2024 Miscellaneous Notes OARRS reviewed, Rx sent into patient's pharmacy. documented in this encounter [facility] 08-15-2024 History of Presen t illness Narrative Images from the original note were not included. Subjective Patient ID: Lluvia Moreno is a 83 y.o. female who presents for No chief complaint on file.. Lluvia presents today for being discharged from a longterm. She says she is feeling much better [...] mg by mouth Daily 60 tablet 3 Twjxbxe-Xtezcbtldgn-Izpzjkqexs (Breztri Aerosphere) 160-9-4.8 MCG/ACT aerosol Inhale 2 [...] left/ right dr inman 2011 Visit Vitals BP 120/78 Pulse 70 Resp [...] in follow up of recent hospital and longterm stay. All available hospital records were reviewed and discussed with the patient. Hospital discharge meds were reviewed. Any changes are as noted. This office visit was spent in consultation regarding the patient's current medical problems, differential diagnoses, testing/imaging results, and treatment options. Greater than 25 minutes was spent in begt-yr-ionp consultation and coordination of care. 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 documented in this encounter [facility] 08-11-2024 Note [facility] follow-up [...] day by oral route., Disp: , Rfl: czokbklspz-jbjmrhue-anmchlwize (Breztri Aerosphere) 160-9-4.8 mcg/actuation HFA aerosol inhaler, [...] no acute distress. (more content not included)... [facility] 06-02-2024 History of Presen t [...] mg) by mouth Daily 100 tablet 3 Xuscftw-Ffsagkawddv-Ewarkjorki (Breztri Aerosphere) 160-9-4.8 MCG/ACT aerosol Inhale 2 [...] Father Past Medical History: Diagnosis Date A-fib ([facility]) Arthritis CAD (coronary artery disease) ([facility]) Cerebrovascular accident ([facility]) Disease of thyroid gland ([facility]) H/O bladder infections Hearing loss [...] left/ right dr inman 2011 Visit Vitals BP 102/64 Pulse 70 Temp [...] Future 4. Pulmonary emphysema, unspecified emphysema type (CMS/HCC) This is a chronic medical condition [...] Benign hypertensive heart disease with heart failure ([facility]/HCC) The patient is seeing a medical insurance collector for this condition, treatment is deferred to that specialist. Correspondence from that specialist and any available testing were reviewed during today's visit. 11. Chronic atrial fibrillation, unspecified (CMS/HCC) The patient is seeing a medical insurance collector for this condition, treatment is deferred to that specialist. Correspondence from that specialist and any available testing were reviewed during today's visit. 12. Chronic combined systolic (congestive) and diastolic (congestive) heart failure The patient is seeing a medical insurance collector for this condition, treatment is deferred to that specialist. Correspondence from that specialist and any available testing were reviewed during today's visit. 13. Chronic systolic dysfunction of left ventricle The patient is seeing a medical insurance collector for this condition, treatment is deferred to that specialist. Correspondence from that specialist and any available testing were reviewed during today's visit. 14. 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 Correspondence from that specialist and any available testing were reviewed during today's visit. 15. Primary hypertension ([facility]) The patient is seeing a medical insurance collector for this condition, treatment is deferred to that specialist. Correspondence from that specialist and any available testing were reviewed during today's visit. 16. ICD (implantable cardioverter-defibrillator) in place The patient is seeing a medical insurance collector for this condition, treatment is deferred to that specialist. Correspondence from that specialist and any available testing were reviewed during today's visit. 17. Non-rheumatic mitral regurgitation The patient is seeing a medical insurance collector for this condition, treatment is deferred to that specialist. Correspondence from that specialist and any available testing were reviewed during today's visit. 18. Status post biventricular cardiac pacemaker insertion The patient is seeing a medical insurance collector for this condition, treatment is deferred to that specialist. Correspondence from that specialist and any available testing were reviewed during today's visit. 19. Chronic kidney disease, stage 3b (HCC) ([facility]) This is a chronic medical condition that is stable since last assessment. Will continue to monitor with routine labs. 20. Age-related osteoporosis without current pathological fracture ([facility]/HCC) This is a chronic medical condition that [...] by patient at this time. 25. Hyperthyroidism ([facility]) The patient is seeing a medical insurance collector for this condition, treatment is deferred to [...] Lorazepam as needed. 30. Current use of care home anticoagulation This is a chronic medical condition [...] (around 09/01/2024) for Medication Follow Up. Dipti CORNELIUS PA-C documented in this encounter [facility] 06-01-2024 History of Presen t illness Narrative [...] on 03/31/18 for lab done in in [facility]: TSH still suppressed 0.07, free T4 [...] hours atorvastatin (LIPITOR) 80 mg, Oral, Daily Nrnrexa-Qjyeszokjwj-Iiyzbdahwu (Breztri Aerosphere) 160-9-4.8 MCG/ACT aerosol 2 puffs, [...] History of varicose veins Hyperlipidemia (CMS/HCC) Hypertension ([facility]/HCC) Hyperthyroidism ([facility]/HCC) Toxic multinodular goiter (CMS/HCC) Visual impairment Past [...] months (around 12/01/2024). documented in this encounter [facility] 05-12-2024 Telephone encounter Note Needs sent to [facility] 05-12-2024 Miscellaneous Notes Needs sent to [facility] documented in this encounter [facility] 03-30-2024 History of Presen t illness [...] mg) by mouth Daily 100 tablet 3 Jkpbqsv-Pjsfxjxgnlk-Avizykurmk (Breztri Aerosphere) 160-9-4.8 MCG/ACT aerosol Inhale 2 [...] left/ right dr inman 2011 Visit Vitals BP 128/78 Pulse 69 Ht [...] for Routine F/U. documented in this encounter [facility] 02-25-2024 History of Presen t illness Narrative [...] 1 TABLET EVERY MORNING 100 tablet 3 Ymkbjqq-Ibjlosapzyx-Wjrawigxju (Breztri Aerosphere) 160-9-4.8 MCG/ACT aerosol Inhale 2 [...] upcoming fasting labs. 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 (CMS/HCC) - CBC and differential; Future - Lipid panel; Future - Vitamin D 25 hydroxy Total; Future The patient is seeing a medical insurance collector for this condition, treatment is deferred to that specialist. Correspondence from that specialist and any available testing were reviewed during today's visit. Age-related osteoporosis without current pathological fracture (CMS/HCC) - Vitamin D 25 hydroxy Total; Future Will continue to monitor with routine DEXA scans. Continue Vitamin D and Calcium supplements daily. Cardiomyopathy, unspecified (CMS/HCC) The patient is seeing a medical insurance collector for this condition, treatment is deferred to that specialist. Correspondence from that specialist and any available testing were reviewed during today's visit. Longstanding persistent atrial fibrillation (CMS/HCC) The patient is seeing a medical insurance collector for this condition, treatment is deferred to that specialist. Correspondence from that specialist and any available testing were reviewed during today's visit. Chronic obstructive pulmonary disease, unspecified (CMS/HCC) See above. Chronic kidney disease, stage 3b (HCC) (CMS/HCC) Will continue to monitor with routine labs. 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) The patient is seeing a medical insurance collector for this condition, treatment is deferred to that specialist. Correspondence from that specialist and any available testing were reviewed during today's visit. Chronic atrial fibrillation, unspecified (CMS/HCC) The patient is seeing a medical insurance collector for this condition, treatment is deferred to that specialist. Correspondence from that specialist and any available testing were reviewed during today's visit. Supplemental oxygen dependent Using oxygen concentrator, O2 via nasal cannula. Oxygen is medically necessary for patient due to hypoxia and significant CLAIRE without it. Follow up in about 3 months (around 05/27/2024) for Medicare Wellness Visit. documented in this encounter [facility] 01-25-2024 Note [facility] follow-up [...] by mouth at bedtime., Disp: , Rfl: glhsehvsqs-vasppxef-dzacskkwpg (Breztri Aerosphere) 160-9-4.8 mcg/actuation HFA aerosol inhaler, [...] stress ECG findings (more content not included)... [facility] 12-02-2023 History of Presen t [...] on 03/31/18 for lab done in in [facility]: TSH still suppressed 0.07, free T4 [...] hours atorvastatin (LIPITOR) 80 mg, Oral, Daily Ezryiwo-Lhtubhvuqcf-Hcjnkmblhf (Breztri Aerosphere) 160-9-4.8 MCG/ACT aerosol 2 Inhalation [...] months (around 06/01/2024). documented in this encounter [facility] 11-26-2023 History of Presen t illness [...] oxygen tank. Does have an appointment with [facility] on 12/09 to get a smaller [...] mouth in the morning. 100 tablet 3 Chkodet-Lkpwnthdsge-Pvlcyplydf (Breztri Aerosphere) 160-9-4.8 MCG/ACT aerosol Inhale 2 [...] left/ right dr inman 2011 Visit Vitals BP 128/74 Comment: home BP [...] this visit: Pulmonary emphysema, unspecified emphysema type ([facility]) - albuterol HFA 90 mcg/act inhaler; Inhale 2 puffs every 4 (four) hours if needed for wheezing Start using Breztri 2 puffs twice a day. Be sure to rinse mouth after each use to avoid thrush. Albuterol prn for acute SOB. Need for vaccination - Influenza, high-dose seasonal, quadrivalent, PF (RCO560) (Fluzone High Dose Quad North 0.7mL dose) [...] 02/26/2024) for COPD. documented in this encounter [facility] 10-30-2023 Telephone encounter Note OARRS reviewed, Rx sent into patient's pharmacy. [facility] 10-30-2023 Miscellaneous Notes OARRS reviewed, Rx sent into patient's pharmacy. documented in this encounter [facility] 04-27-2023 History of Presen t illness Narrative [...] like to follow up with her local clinical trials nurse for regular eyecare/comprehensive exams. Will send a [...] (TOPROL XL) 50 mg 24 hr tablet multivitamin,vs-dkht-Ly-FA-min 27-0.4 mg tablet 1 (one) time each [...] history of COPD (chronic obstructive pulmonary disease) ([facility]) and Hypertension. She has a [...] accurate and complete. documented in this encounter [facility] [place] 02-11-2023 History of Presen t illness Narrative [...] TAKE 1 TABLET DAILY for 100 days Mitlvee-Ushlbpzixvt-Hclsdmpzkv (Breztri [employer]) 160-9-4.8 MCG/ACT aerosol Inhale 1 [...] follow-ups on file. documented in this encounter [facility] 08-22-2021 Note EXAMINATION: XR CHES T [...] by: JOEL ANDINO Date: 2021-08-22 17:39 [facility] 06-17-2021 Note PROCEDURE: XR FEMUR LT HISTORY: Pain in lower limb ; anterior posterior mid thigh pain for one week COMPARISON: None. FINDINGS: BONES:Moderate degenerative changes of the hip joint. Prior knee replacement. No fracture, dislocation, or bone lesion. SOFT TISSUES:No visible soft tissue swelling. EFFUSION:None visible. OTHER: Negative. IMPRESSION: 1. No appreciable acute abnormality. 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 (CMS/HCC) Age-related osteoporosis [...] Diplopia documented in this encounter [facility]* Diagnosis Anxiety Anxiety state, unspecified [facility] Diagnosis Hyperthyroidism (CMS/HCC)- Primary Thyrotoxicosis without mention of goiter or other cause, without mention of thyrotoxic crisis or storm Multinodular goiter (CMS/HCC) Nontoxic multinodular goiter Longstanding persistent atrial fibrillation (CMS/HCC) documented in this encounter [facility] HealthcareEvaluation note* Diagnosis Medicare annual [...] heart failure (CMS/HCC) Chronic atrial fibrillation, unspecified ([facility]/HCC) 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 systolic dysfunction of left ventricle 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 ([facility]/HCC) Primary hypertension ([facility]/HCC) Unspecified essential hypertension ICD (implantable cardioverter-defibrillator) in place Non-rheumatic mitral regurgitation Status post biventricular cardiac pacemaker insertion Chronic kidney disease, stage 3b (HCC) ([facility]/HCC) Age-related osteoporosis without current pathological fracture ([facility]/HCC) Arthritis of right shoulder region Joint derangement of shoulder region Unspecified derangement, shoulder region Primary osteoarthritis involving multiple joints Rotator cuff syndrome of right shoulder Hyperthyroidism ([facility]/HCC) Thyrotoxicosis without mention of goiter or other cause, without mention of thyrotoxic crisis or storm Impaired fasting glucose Overweight (BMI 25.0-29.9) Overweight Primary ovarian failure Other ovarian failure Anxiety Anxiety state, unspecified 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 Diplopia Elevated liver enzymes Other nonspecific abnormal serum enzyme levels Frequent falls History of stroke without residual deficits Transient ischemic attack (TIA), and cerebral infarction without residual deficits Memory changes 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) COPD exacerbation ([facility]/HCC) Obstructive chronic bronchitis with exacerbation documented in this encounter [facility] HealthcareEvaluation noteNo assessment information availableMer[facility] Work Phone: Evaluation note* Diagnosis Dementia with behavioral disturbance (HCC)- Primary Pulmonary emphysema, unspecified emphysema type (HCC) Hypoxia Hypoxemia Chronic combined systolic (congestive) and diastolic (congestive) heart failure (HCC) Chronic kidney disease, stage 3b ([facility]-HCC) 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 documented in this encounter [facility] HealthcareEvaluation note* Diagnosis Anxiety Anxiety state, unspecified documented in this encounter [facility] HealthcareEvaluation note* Diagnosis Chronic kidney disease, stage 3b (CMS-HCC)- Primary Chronic combined systolic (congestive) and diastolic (congestive) heart failure (HCC) Supplemental oxygen dependent Dependence on supplemental oxygen Anxiety Anxiety state, unspecified Hyperthyroidism Thyrotoxicosis without mention of goiter or other cause, without mention of thyrotoxic crisis or storm 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 * Double Vision (Albanian) [facility] SystemReason for referral (narrative)No reason for referral information availableWhite [facility] Ctr Work Phone: Summary Purpose Family History No Family History Records FoundNo Family History Records FoundNo Family History Records FoundNo Family History Records FoundNo Family History Records FoundNo Family History Records FoundNo Family History Records Found Advance Directives No Advanced Directives Records FoundDocuments on File Type Date Recorded Patient Side Seam Envelope Machine Operator Expl anation Power of Windows Deployment Technician 02/25/2024 12:18 PM [facility] Power of Windows Deployment Technician Documents on File Type Date Recorded Patient Side Seam Envelope Machine Operator Expl anation Power of Windows Deployment Technician 02/25/2024 12:18 PM [facility]alt [facility] Power of Windows Deployment Technician Reason for Referral Specialty Diagnoses / Procedures Referred By Safia t Referred To Contact Radiology Diagnoses Leg hematoma, right, initial encounter Current use of care home anticoagulation Localized edema Procedures Vascular US lower extremity venous duplex right Ole Yang MD [address] [place] [address] [facility] [address] [place] [address] Referral ID Status Reason Start Date Expiration Date Visits Re quested Visits Authorized [id number] Closed 02/12/2023 05/14/2023 1 1 Chief Complaint and Reason for Visit Chief Complaint Admit Date ^ October 25, 2003 6:00am Unknown July 22, 2024 6:10a m Unknown September 26, 2024 1: 30pm Additional Source Comments INFORMATION SOURCE (unrecogn ized section and content) DATE CREATED AUTHOR 10/15/2021 [facility] DATE CREATED AUTHOR AUTHOR'S ORGANIZ ATION 05/18/2022 [facility] DATE CREATED AUTHOR AUTHOR'S ORGANIZ ATION 04/27/2023 [facility] DATE CREATED AUTHOR AUTHOR'S ORGANIZ ATION 06/08/2024 [facility] DATE CREATED AUTHOR AUTHOR'S ORGANIZ ATION 09/16/2024 [facility] DATE CREATED AUTHOR AUTHOR'S ORGANIZ ATION 09/30/2024 [facility] DATE CREATED AUTHOR AUTHOR'S ORGANIZ ATION 10/01/2024 [facility] Reason for Visit (unrecogniz ed section and [...] symptoms. Medicare Annual Wellness Visit Subsequen t Reason Comments Med Refill Reason Comments Congestive Heart Failure Hypertension Care Teams (unrecognized sec tion and content) Automotive Window Tinter Relationship Specialty Start Date End Date Ole Yang MD [address] [place] [address] PCP - ACO Reach 07/10/22 Ole Yang MD [address] [place] [address] PCP - General Internal Medicine 07/28/22 Automotive Window Tinter Relationship Specialty Start Date End Date Ole Yang MD [address] [place] [address] PCP - ACO Reach 07/10/22 Ole Ynag MD [address] [place] [address] PCP - General Internal Medicine 07/28/22Thursday, Bea, MANAGER RESEARCH DEVELOPMENT [address] [place] [address] Licensed Practical Nurse Family Medicine 10/27/23 Automotive Window Tinter Relationship Specialty Start Date End Date Ole Yang MD [address] [place] [address] PCP - ACO Reach 07/10/22 Ole Yang MD [address] [place] [address] PCP - General Internal Medicine 07/28/22Thursday, Bea MANAGER RESEARCH DEVELOPMENT [address] [place] [address] Licensed Practical Nurse Family Medicine 10/27/23 Automotive Window Tinter Relationship Specialty Start Date End Date Ole Yang MD [address] [place] [address] PCP - ACO Reach 07/10/22 Ole Yang MD [address] [place] [address] PCP - General Internal Medicine 07/28/22Thursday, Bea, MANAGER RESEARCH DEVELOPMENT [address] [place] [address] Licensed Practical Nurse Family Medicine 10/27/23 Automotive Window Tinter Relationship Specialty Start Date End Date Ole Yang MD [address] [place] [address] PCP - ACO Reach 07/10/22 Ole Yang MD [address] [place] [address] PCP - General Internal Medicine 07/28/22ThuKeonBea deleon LPN [address] [place] [address] Licensed Practical Nurse Family Medicine 10/27/23 Automotive Window Tinter Relationship Specialty Start Date End Date Ole Yang MD [address] [place] [address] PCP - ACO Reach 07/10/22 Ole Yang MD [address] [place] [address] PCP - General Internal Medicine 07/28/22ThursdayBea LPN [address] [place] [address] Licensed Practical Nurse Family Medicine 10/27/23 Automotive Window Tinter Relationship Specialty Start Date End Date Ole Yang MD [address] [place] [address] PCP - ACO Reach 07/10/22 Ole Yang MD [address] [place] [address] PCP - General Internal Medicine 07/28/22 Debora Saenz, RN Licensed Practical Nurse Family Medicine 03/25/24 Automotive Window Tinter Relationship Specialty Start Date End Date Ole Yang MD [address] [place] [address] PCP - ACO Reach 07/10/22 Ole Yang MD [address] [place] [address] PCP - General Internal Medicine 07/28/22 Debora Saenz RN Licensed Practical Nurse Family Medicine 03/25/24 Automotive Window Tinter Relationship Specialty Start Date End Date Ole Yang MD [address] [place] [address] PCP - General Internal Medicine 08/13/22 Automotive Window Tinter Relationship Specialty Start Date End Date Ole Yang MD [address] [place] [address] PCP - ACO Reach 07/10/22 Ole Yang MD [address] [facility] [address] [place] [address] PCP - General Internal Medicine 07/28/22 Edna Alcantara LPN 05/06/24 Automotive Window Tinter Relationship Specialty Start Date End Date Ole Yang MD [address] [place] [address] PCP - ACO Reach 07/10/22 Ole Yang MD [address] [place] [address] PCP - General Internal Medicine 07/28/22 Edna Alcantara LPN 05/06/24 Automotive Window Tinter Relationship Specialty Start Date End Date Ole Yang MD [address] [place] [address] PCP - ACO Reach 07/10/22 Ole Yang MD [address] [place] [address] PCP - General Internal Medicine 07/28/22 Edna Alcantara LPN 05/06/24 Automotive Window Tinter Relationship Specialty Start Date End Date Ole Yang MD [address] [place] [address] PCP - ACO Reach 07/10/22 Ole Yang MD [address] [place] [address] PCP - General Internal Medicine 07/28/22 Edna Alcantara LPN 05/06/24 Automotive Window Tinter Relationship Specialty Start Date End Date Ole Yang MD [address] [place] [address] PCP - ACO Reach 07/10/22 Ole Yang MD [address] [place] [address] PCP - General Internal Medicine 07/28/22 Edna Alcantara LPN 05/06/24 Team Status: Active Member Role Status Dates Michael Zapien Attending Provider Active Start: October 25, 2003 Team Status: Inactive Member Role Status Dates Luis E Soares MD Attending Provider Active St art: July 22, 2024 End: July 22, 2024 Automotive Window Tinter Relationship Specialty Start Date End Date Ole Yang MD [address] [place] [address] PCP - ACO Reach 07/10/22 Ole Yang MD [address] [place] [address] PCP - General Internal Medicine 07/28/22 Edna Alcantara LPN 05/06/24 Automotive Window Tinter Relationship Specialty Start Date End Date Ole Yang MD [address] [place] [address] PCP - ACO Reach 07/10/22 Ole Yang MD [address] [place] [address] PCP - General Internal Medicine 07/28/22 Edna Alcantara LPN [address] [place] [address] 05/06/24 Automotive Window Tinter Relationship Specialty Start Date End Date Ole Yang MD [address] [place] [address] PCP - ACO Reach 07/10/22 Ole Yang MD [address] [place] [address] PCP - General Internal Medicine 07/28/22 Edna Alcantara LPN [address] [place] [address] 05/06/24 Automotive Window Tinter Relationship Specialty Start Date End Date Ole Yang MD [address] [place] [address] PCP - ACO Reach 07/10/22 Ole Yang MD [address] [place] [address] PCP - General Internal Medicine 07/28/22 Edna Alcantara LPN [address] [place] [address] 05/06/24 Automotive Window Tinter Relationship Specialty Start Date End Date Ole Yang MD [address] [place] [address] PCP - ACO Reach 07/10/22 Ole Yang MD [address] [place] [address] PCP - General Internal Medicine 07/28/22 Edna Alcantara LPN [address] [place] [address] 05/06/24 Automotive Window Tinter Relationship Specialty Start Date End Date Ole Yang MD [address] [place] [address] PCP - ACO Reach 07/10/22 Ole Yang MD [address] [place] [address] PCP - General Internal Medicine 07/28/22 Edna Alcantara LPN [address] [place] [address] 05/06/24 Automotive Window Tinter Relationship Specialty Start Date End Date Ole Yang MD [address] [place] [address] PCP - ACO Reach 07/10/22 Ole Yang MD [address] [place] [address] PCP - General Internal Medicine 07/28/22 Edna Alcantara LPN [address] [place] [address] 05/06/24 Automotive Window Tinter Relationship Specialty Start Date End Date Ole Yang MD [address] [place] [address] PCP - ACO Reach 07/10/22 Ole Yang MD [address] [facility] [address] [place], [place] [address] PCP - General Internal Medicine 07/28/22 Edna AlcantaraJUAN [address] [facility] [address] [place] [address] 05/06/24 Team Status: Inactive Member Role Status Dates Ole Yang II MD Attending Provider Active S tart: September 26, 2024 End: September 26, 2024 Goals (unrecognized section and content) Goals may [...] BE BASED ON THE PRIMARY CLINICAL RECORDS. [email or web address] provides no warranty or guarantee of the accuracy or completeness of information in this document.
[2024-10-07] MEDS: OXYCODONE HCL 5 MG TABLET PO (10:42)
[2024-10-07 11:39] VITALS: BP 136/81; PULSE 70; O2SAT 99
[2024-10-07 12:37] VITALS: BP 161/87; O2SAT 99
--- NOTE | 2024-10-07 15:51 | ED.GENADUL1 ---
HPI HPI - General Adult General Chief complaint: Extremity Problem, Nontraumatic Stated complaint: HIP PAIN Time Seen by Provider: 10/07/24 10:15 Source: patient Mode of arrival: Wheelchair Limitations: no limitations History of Present Illness HPI narrative: Patient is a 84-year-old female presenting to the emergency department with right lower extremity pain. Patient states that she pulled a muscle when she tripped on her oxygen changing 6 weeks ago. She has been having persistent pain in her right hamstring/glute area since that event. She has been in physical therapy, which somewhat has helped. She has been taking Tylenol home for the pain. During her initial injury, she did not fall and hit the ground. She denies any interval injuries since then. She denies any numbness/tingling/weakness in the extremities. No loss of bladder/bowel function. She denies any lower back pain. No fevers or chills. No history of cancer or IV drug use. Related Data Home Medications ?Medication ?Instructions ?Recorded ?Confirmed apixaban 5 mg tablet (Eliquis) 5 mg PO Q12H 08/28/23 10/07/24 atorvastatin 80 mg tablet 80 mg PO .QHS 08/28/23 10/07/24 methimazole 10 mg tablet 5 mg PO .QD 08/28/23 10/07/24 metoprolol succinate 50 mg 50 mg PO .QD 08/28/23 10/07/24 tablet,extended release 24 hr paroxetine HCl 20 mg tablet 20 mg PO .QD 08/28/23 10/07/24 spironolactone 25 mg tablet 25 mg PO QAM 08/28/23 10/07/24 albuterol sulfate 90 mcg/actuation 2 puff inhalation Q4H PRN 06/08/24 10/07/24 aerosol inhaler shortness of breath or wheezing aspirin 81 mg capsule 81 mg PO DAILY 06/08/24 10/07/24 brexpiprazole 0.5 mg tablet 0.25 mg PO .qd 07/22/24 10/07/24 (Rexulti) bumetanide 1 mg tablet 1 mg PO DAILY PRN water retention 07/22/24 10/07/24 calcium 600 mg (as 1 cap PO DAILY 07/22/24 10/07/24 carbonate)-vitamin D3 5 mcg (200 unit) capsule (Calcium 600 + D(3)) cholecalciferol (vitamin D3) 25 25 mcg PO DAILY 07/22/24 10/07/24 mcg (1,000 unit) tablet (Vitamin D3) lisinopril 5 mg tablet 2.5 mg PO .QD 07/22/24 10/07/24 multivitamin (Daily Multi-Vitamin 1 tab PO DAILY 07/22/24 10/07/24 tablet) Previous Rx's ?Medication ?Instructions ?Recorded lorazepam 0.5 mg tablet 0.5 mg PO BEDTIME 1 day #1 tab 07/24/24 oxycodone 5 mg capsule 5 mg PO BID PRN pain #6 caps 10/07/24 Allergies Allergy/AdvReac Type Severity Reaction Status Date / Time No Known Drug Allergies Allergy Verified 07/22/24 06:13 Opioid HPI Opioid Management Most Recent Opioid Data: Last Pain Scale 10 Today, 10:13 Last Pain Intensity 0 07/23/24, 10:31 Last ORT Total Score 1 07/22/24, 09:48 Last ORT Risk Category Low Risk 07/22/24, 09:48 Review of Systems ROS Status of ROS 10 or more systems reviewed and unremarkable except as noted in history and below [facility] Medical History (Updated 10/07/24 @ 12:18 by Ambrose Gonzáles DO) Dependence on supplemental oxygen ?Z99.81 - Dependence on supplemental oxygen (ICD-10) Hypoxic episode ?R09.02 - Hypoxemia (ICD-10) COPD exacerbation ?J44.1 - Chronic obstructive pulmonary disease with (acute) exacerbation (ICD-10) CHF (congestive heart failure) ?I50.9 - Heart failure, unspecified (ICD-10) HTN (hypertension) ?I10 - Essential (primary) hypertension (ICD-10) CVA (cerebral vascular accident) ?I63.9 - Cerebral infarction, unspecified (ICD-10) COPD (chronic obstructive pulmonary disease) ?J44.9 - Chronic obstructive pulmonary disease, unspecified (ICD-10) Cardiac defibrillator in place ?Z95.810 - Presence of automatic (implantable) cardiac defibrillator (ICD-10) A-fib ?I48.91 - Unspecified atrial fibrillation (ICD-10) Surgical History (Updated 08/28/23 @ 18:27 by Lo Knapp RN) Hx of appendectomy ?Z90.49 - Acquired absence of other specified parts of digestive tract (ICD-10) History of hysterectomy ?Z90.710 - Acquired absence of both cervix and uterus (ICD-10) Family History (Updated 08/28/23 @ 17:55 by Lo Knapp RN) Other Family history of CHF (congestive heart failure) Family history of COPD (chronic obstructive pulmonary disease) Family history of cancer Family history of hypertension Family history of myocardial infarction Family history of stroke Social History (Updated 08/28/23 @ 17:56 by Lo Knapp RN) Within the past year, how often did you have a drink containing alcohol: monthly or less Within the past year, how many standard drinks containing alcohol did you have on a typical day: 1 or 2 Within the past year, how often did you have six or more drinks on one occasion: never Total score: 0 Score interpretation: A score less than 3 is consistent with normal alcohol consumption. Smoking status: Never smoker Non-prescribed substance use: denies use Highest level of school completed/degree received: high school graduate In a typical week, how many times do you talk on the telephone with family, friends, or neighbors: 3 or more times per week How often do you get together with friends or relatives: 3 or more times per week How often do you attend restoration or faith services: never Little interest or pleasure in doing things: not at all Feeling down, depressed, or hopeless: not at all Feel stressed/tense/nervous/anxious/difficulty sleeping: not at all Do you think of yourself as: straight/heterosexual Gender Identity: female Exam Narrative Exam Narrative: CONSTITUTIONAL: Appears mildly uncomfortable, answering questions and following commands appropriately SKIN: Was warm and dry, no external signs of injury or erythema in the right lower extremity. EYES: Sclerae white. EARS, NOSE, THROAT: Moist oral mucosa. RESPIRATORY: Clear to auscultation bilaterally, no wheezes, crackles, or stridor, no use of accessory muscles CARDIOVASCULAR: Normal rate and regular rhythm. 2+ DP pulses bilaterally. GASTROINTESTINAL: Abdomen is nondistended. MUSCULOSKELETAL: There is mild tenderness palpation throughout the right hamstring/gluteus muscles.No midline L-spine tenderness. The right lower extremity appears grossly normal without soft tissue swelling or joint effusions. She has full range of motion in the right lower extremity including hip flexion/extension, knee flexion/extension. Negative straight leg raise test bilaterally. NEUROLOGIC: Patient is awake and alert. Sensation intact to light touch in the bilateral lower extremities. Equal strength in the bilateral lower extremities facies were symmetrical. Constitutional Vital Signs, click to edit/add: Last Vital Signs Temp 98.2 F 10/07/24 10:13 Pulse 70 10/07/24 11:39 Resp 20 10/07/24 12:37 BP 161/87 H 10/07/24 12:37 Pulse Ox 99 10/07/24 12:37 O2 Del Method Nasal Cannula 10/07/24 12:37 O2 Flow Rate 2 10/07/24 12:37 Course Vital Signs Vital signs: Vital Signs Temperature 98.2 F 10/07/24 10:13 Pulse Rate 70 10/07/24 10:13 Respiratory Rate 18 10/07/24 10:13 Blood Pressure 120/87 10/07/24 10:13 Pulse Oximetry 98 10/07/24 10:13 Oxygen Delivery Method Nasal Cannula 10/07/24 10:13 Oxygen Delivery Flow Rate 2 10/07/24 10:13 Temperature 98.2 F 10/07/24 10:13 Pulse Rate 70 10/07/24 11:39 Respiratory Rate 20 10/07/24 12:37 Blood Pressure 161/87 H 10/07/24 12:37 Pulse Oximetry 99 10/07/24 12:37 Oxygen Delivery Method Nasal Cannula 10/07/24 12:37 Oxygen Delivery Flow Rate 2 10/07/24 12:37 Medical Decision Making [facility] Narrative Medical decision making narrative: Patient is an 84-year-old female presenting to the emergency department with a 6-week history of right lower extremity hamstring/gluteal muscle pain after pulling a muscle. Vital signs arrival are significant for mild hypertension, otherwise within normal limits. She is afebrile hemodynamically stable. She is saturating 99% on her home oxygen requirements of 2 L nasal cannula. There is reproducible tenderness to palpation throughout the right gluteus/hamstring muscle group. She is neurovascularly intact in the bilateral lower extremities with good strength/sensation/perfusion. My clinical impression is that the patient is having acute exacerbation and reaggravation of her injury from 6 weeks ago. She has had no interval falls or injuries to suggest underlying fracture, however given her age, I did elect to obtain x-rays of the right hip/pelvis/L-spine. She has no evidence of cauda equina syndrome. Patient's pain will be treated with oral oxycodone. X-rays of the right hip/pelvis/L-spine demonstrated no acute bony injury. 6 mm of anterior listhesis of L4 upon L5. No fractures. On reevaluation, patient states she feels 100% improved and no longer has pain. Her presentation is likely secondary to musculoskeletal pain. I prescribed her 6 tablets of oxycodone 5 mg to take at home as needed for pain. She was instructed follow-up with her PCP for further care. Return precautions were given including any new or concerning symptoms. Patient understands and agrees to plan. FINAL IMPRESSION: Acute right lower extremity musculoskeletal pain DISPOSITION: Discharged home CONDITION: Good Differential Diagnosis Differential Diagnosis: Abdominal pain, muscle strain, radiculopathy Imaging Data pelvis xray: Radiologist's impression: ITS Impressions Hip/Pelvis X-Ray 10/07/24 10:32 IMPRESSION: No fracture or dislocation. Degenerative changes are noted as above, greatest in the left hip. Impression dictated by: Jj Wilson M.D. 10/07/2024 11:51 AM Dictation Location: [employer] Electronically authenticated by: [id number] Y Date: 10/07/2024 11:51 Lumbar Spine X-Ray 10/07/24 10:32 IMPRESSION: No acute bony injury. There is 6 mm of anterolisthesis of L4 upon L5. Significant multilevel degenerative changes noted as above. Impression dictated by: Jj Wilson M.D. 10/07/2024 11:53 AM Dictation Location: [employer] Electronically authenticated by: [id number] Y Date: 10/07/2024 11:53 Discharge Plan Discharge Chief Complaint: Extremity Problem, Nontraumatic Clinical Impression: Leg pain, right Patient Disposition: Home, Self-Care Time of Disposition Decision: 12:18 Condition: Good Mode of Transportation: Private Vehicle Prescriptions / Home Meds: New oxycodone 5 mg capsule 5 mg PO BID PRN (Reason: pain) Qty: 6 0RF No Action albuterol sulfate 90 mcg/actuation HFA aerosol inhaler 2 puff INHALATION Q4H PRN (Reason: shortness of breath or wheezing) aspirin 81 mg capsule 81 mg PO DAILY lisinopril 5 mg tablet 2.5 mg PO .QD Rexulti 0.5 mg tablet 0.25 mg PO .qd multivitamin [Daily Multi-Vitamin] Tablet 1 tab PO DAILY cholecalciferol (vitamin D3) [Vitamin D3] 25 mcg (1,000 unit) tablet 25 mcg PO DAILY calcium carbonate-vitamin D3 [Calcium 600 + D(3)] 600 mg-5 mcg (200 unit) capsule 1 cap PO DAILY bumetanide 1 mg tablet 1 mg PO DAILY PRN (Reason: water retention) lorazepam 0.5 mg tablet 0.5 mg PO BEDTIME 1 Days Qty: 1 0RF atorvastatin 80 mg tablet 80 mg PO .QHS metoprolol succinate 50 mg tablet extended release 24 hr 50 mg PO .QD spironolactone 25 mg tablet 25 mg PO QAM paroxetine HCl 20 mg tablet 20 mg PO .QD methimazole 10 mg tablet 5 mg PO .QD Patient Comments: pt takes 1/2 pill only on Thursday, Thursday, , Thursday. Does NOT take on Thursday, Thursday, and Thursday Eliquis 5 mg tablet 5 mg PO Q12H Print Language: Bel[place]ian Instructions: Leg Pain (ED) Referrals: RUDY DIAZ [Primary Care Provider, Internal Medicine] - 1 week Discharge Date/Time: 10/07/24 12:39
--- OUTSIDE RECORDS SUMMARY | 2024-10-08 20:00 | XMS_ITS | Clinical Summary ---
Author Organization Unknown Care Team Providers Care Specialist Icu Name Role Phone EMILY ELISE, RUDY Unavailable Unavailable LORNE COOLEYN, EFRAÍN Unavailable Unavailable JESUS ROSAS, KYARA Unavailable Unavailable EVIE EMPLOYMENT SERVICES DIRECTOR, ROSI Unavailable Unavailable FRETZ OT, AMELIA Unavailable Unavailable DANIEL PT, LANE Unavailable Unavailable FLOR RN, GOYO Unavailable Unavailable Payers Payer Name Policy Type Policy Number Effective Date Expira tion Date MEDICARE - [place] - PDGM [id number] Problems Condition Name Condition Details Condition Category Status Onset Date Resolution Date Last Treatment Date Treating Clinician Comments CHRONIC OBSTRUCTIVE PULMONARY DISEASE, UNSPECIFIED Active 02-16 00:00: 00 UNSPECIFIED ATRIAL FIBRILLATION Active 02-16 00:00: 00 ANXIETY DISORDER, UNSPECIFIED Active 02-16 00:00: 00 DEPRESSION, UNSPECIFIED Active 02-16 00:00: 00 HYPERTENSIVE HEART DISEASE WITH HEART FAILURE Active 02-16 00:00: 00 HEART FAILURE, UNSPECIFIED Active 02-16 00:00: 00 OBESITY, UNSPECIFIED Active 02-16 00:00: 00 BODY MASS INDEX [BMI] 27.0-27.9, ADULT Active 02-16 00:00: 00 URINARY TRACT INFECTION, SITE NOT SPECIFIED Active 02-16 00:00: 00 HYPERLIPIDEM IA, UNSPECIFIED Active 02-16 00:00: 00 VITAMIN D DEFICIENCY, UNSPECIFIED Active 02-16 00:00: 00 THYROTOXICOS IS, 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 Ordering Clinician Indication Dosage Frequency Signature (SIG) Comments Components Rexulti 0.5 mg tablet 07-21 00:00: 00 Yes [id number] 0.5 tablet DAILY 0.5 tablet DAILY (route: oral) Med Classific ation: Central Nervous System Agents albuterol sulfate HFA 90 mcg/actuati on aerosol inhaler 08-11 00:00: 00 Yes [id number] 2 puff NEEDED 2 puff NEEDED (route: inhalation ) Med Classific ation: Respirato ry Therapy Agents Aspirin Childrens 81 mg chewable tablet 08-11 00:00: 00 Yes [id number] 1 tablet DAILY 1 tablet DAILY (route: oral) Med Classific ation: Hematolog ical Agents atorvastati n 80 mg tablet 08-11 00:00: 00 Yes [id number] 1 tablet DAILY 1 tablet DAILY (route: oral) Med Classific ation: Cardiovas cular Therapy Agents bumetanide 1 mg tablet 08-11 00:00: 00 Yes [id number] 1 tablet NEEDED 1 tablet NEEDED (route: oral) Med Classific ation: Cardiovas cular Therapy Agents Calcium-600 600 mg (as calcium carbonate 1,500 mg) tablet 08-11 00:00: 00 Yes [id number] 2 tablet DAILY 2 tablet DAILY (route: oral) Med Classific ation: Electroly te Balance-N utritiona l Products Eliquis 5 mg tablet 08-11 00:00: 00 Yes [id number] 1 tablet 2 TIMES DAILY 1 tablet 2 TIMES DAILY (route: oral) Med Classific ation: Hematolog ical Agents lisinopril 5 mg tablet 08-11 00:00: 00 Yes [id number] 0.5 tablet DAILY 0.5 tablet DAILY (route: oral) Med Classific ation: Cardiovas cular Therapy Agents lorazepam 0.5 mg tablet 08-11 00:00: 00 Yes [id number] 1 tablet BEDTIME 1 tablet BEDTIME (route: oral) Med Classific ation: Central Nervous System Agents methimazole 10 mg tablet 08-11 00:00: 00 Yes [id number] 0.5 tablet DIRECTED 0.5 tablet DIRECTED (route: oral) Med Classific ation: Endocrine metoprolol succinate ER 50 mg tablet,exte nded release 24 hr 08-11 00:00: 00 Yes [id number] 1 tablet DAILY 1 tablet DAILY (route: oral) Med Classific ation: Cardiovas cular Therapy Agents Multivitami n 50 Plus tablet 08-11 00:00: 00 Yes [id number] 1 tablet DAILY 1 tablet DAILY (route: oral) Med Classific ation: Electroly te Balance-N utritiona l Products paroxetine 20 mg tablet 08-11 00:00: 00 Yes [id number] 1 tablet DAILY 1 tablet DAILY (route: oral) Med Classific ation: Central Nervous System Agents spironolact one 25 mg tablet 08-11 00:00: 00 Yes [id number] 1 tablet DAILY 1 tablet DAILY (route: oral) Med Classific ation: Cardiovas cular Therapy Agents Vitamin D3 25 mcg (1,000 unit) capsule 08-11 00:00: 00 Yes [id number] 1 capsule DAILY 1 capsule DAILY (route: oral) Med Classific ation: Electroly te Balance-N utritiona l Products Vital Signs Vital Name Observation Time Observation Value Commen ts Temperature 2024-10-05 11:45:00.000 98 [degF] Temperature 2024-09-27 13:45:00.000 98 [degF] Temperature 2024-09-26 09:36:00.000 98.1 [degF] Temperature 2024-09-20 11:44:00.000 97.1 [degF] Temperature 2024-09-19 14:01:00.000 98.3 [degF] Temperature 2024-09-12 16:06:00.000 98.1 [degF] Temperature 2024-09-12 11:11:00.000 97.9 [degF] Temperature 2024-09-06 11:57:00.000 98 [degF] Temperature 2024-09-05 12:16:00.000 98.288 [degF] Temperature 2024-09-05 11:37:00.000 97.9 [degF] Temperature 2024-08-31 09:42:42.000 97.7 [degF] Temperature 2024-08-29 14:51:00.000 97.5 [degF] Temperature 2024-08-29 13:56:00.000 97.9 [degF] Temperature 2024-08-25 10:14:00.000 97.6 [degF] Temperature 2024-08-24 09:08:33.000 98.6 [degF] Temperature 2024-08-23 09:51:00.000 98.2 [degF] Temperature 2024-08-22 08:40:00.000 97.9 [degF] Temperature 2024-08-18 09:34:00.000 97.6 [degF] Temperature 2024-08-17 09:22:00.000 98 [degF] Temperature 2024 12:11:00.000 97.6 [degF] Temperature 2024 10:20:28.000 98.4 [degF] Temperature 2024-08-12 10:53:00.000 97.8 [degF] Temperature 2024-08-11 11:01:00.000 98.3 [degF] BMI (%) 2024-08-11 11:01:00.000 27 kg/m2 Height 2024-08-11 11:01:00.000 67 [in_us] Pulse 2024-10-05 11:45:00.000 72 /min Pulse 2024-09-27 13:45:00.000 70 /min Pulse 2024-09-26 09:36:00.000 70 /min Pulse 2024-09-22 10:30:00.000 71 /min Pulse 2024-09-20 11:44:00.000 70 /min Pulse 2024-09-19 14:01:00.000 72 /min Pulse 2024-09-15 13:30:00.000 61 /min Pulse 2024-09-12 16:06:00.000 71 /min Pulse 2024-09-12 11:11:00.000 71 /min Pulse 2024-09-06 11:57:00.000 62 /min Pulse 2024-09-05 12:16:00.000 70 /min Pulse 2024-09-05 11:37:00.000 72 /min Pulse 2024-08-31 09:50:12.000 71 /min Pulse 2024-08-29 14:51:00.000 70 /min Pulse 2024-08-29 13:56:00.000 70 /min Pulse 2024-08-25 10:14:00.000 70 /min Pulse 2024-08-24 09:10:04.000 70 /min Pulse 2024-08-23 09:51:00.000 71 /min Pulse 2024-08-23 09:06:00.000 75 /min Pulse 2024-08-22 08:40:00.000 73 /min Pulse 2024-08-18 09:34:00.000 70 /min Pulse 2024-08-17 09:22:00.000 84 /min Pulse 2024 12:11:00.000 61 /min Pulse 2024 10:24:55.000 83 /min Pulse 2024-08-12 10:53:00.000 60 /min Pulse 2024-08-11 11:01:00.000 70 /min O2 Saturation (%) 2024-10-05 11:45:00.000 95 % O2 Saturation (%) 2024-09-27 13:45:00.000 97 % O2 Saturation (%) 2024-09-26 09:37:00.000 97 % O2 Saturation (%) 2024-09-20 11:44:00.000 97 % O2 Saturation (%) 2024-09-19 14:01:00.000 96 % O2 Saturation (%) 2024-09-12 16:07:00.000 99 % O2 Saturation (%) 2024-09-06 11:57:00.000 100 % O2 Saturation (%) 2024-09-05 12:16:00.000 99 % O2 Saturation (%) 2024-08-29 14:52:00.000 99 % O2 Saturation (%) 2024-08-29 13:56:00.000 98 % O2 Saturation (%) 2024-08-25 10:14:00.000 99 % O2 Saturation (%) 2024-08-23 09:51:00.000 97 % O2 Saturation (%) 2024-08-18 09:36:00.000 98 % O2 Saturation (%) 2024 12:11:00.000 100 % O2 Saturation (%) 2024-08-12 10:53:00.000 96 % O2 Saturation (%) 2024-08-11 11:01:00.000 99 % Respirations 2024-10-05 11:45:00.000 18 /min Respirations 2024-09-27 13:45:00.000 17 /min Respirations 2024-09-26 09:36:00.000 18 /min Respirations 2024-09-22 10:30:00.000 17 /min Respirations 2024-09-20 11:44:00.000 16 /min Respirations 2024-09-19 14:01:00.000 18 /min Respirations 2024-09-15 13:29:00.000 17 /min Respirations 2024-09-12 16:06:00.000 16 /min Respirations 2024-09-12 11:11:00.000 18 /min Respirations 2024-09-06 11:57:00.000 18 /min Respirations 2024-09-05 12:16:00.000 18 /min Respirations 2024-09-05 11:37:00.000 18 /min Respirations 2024-08-31 09:43:19.000 18 /min Respirations 2024-08-30 09:03:00.000 17 /min Respirations 2024-08-29 14:51:00.000 18 /min Respirations 2024-08-29 13:56:00.000 18 /min Respirations 2024-08-25 10:14:00.000 18 /min Respirations 2024-08-24 09:08:40.000 17 /min Respirations 2024-08-23 09:51:00.000 18 /min Respirations 2024-08-23 09:06:00.000 17 /min Respirations 2024-08-22 08:40:00.000 18 /min Respirations 2024-08-18 09:34:00.000 16 /min Respirations 2024-08-17 09:22:00.000 18 /min Respirations 2024 12:11:00.000 17 /min Respirations 2024 10:20:43.000 18 /min Respirations 2024-08-12 10:53:00.000 18 /min Respirations 2024-08-11 11:01:00.000 18 /min Weight (lbs) 2024-09-19 14:01:00.000 172 [lb_av] Weight (lbs) 2024-09-05 12:16:00.000 173 [lb_av] Weight (lbs) 2024-08-31 10:18:14.000 172.2 [lb_av] Weight (lbs) 2024-08-25 10:36:00.000 172 [lb_av] Weight (lbs) 2024-08-24 09:12:01.000 171.6 [lb_av] Weight (lbs) 2024-08-23 09:51:00.000 172 [lb_av] Weight (lbs) 2024 10:18:04.000 170.6 [lb_av] Weight (lbs) 2024-08-11 11:01:00.000 177 [lb_av] Systolic Blood Pressure 2024-10-05 11:45:00.000 114 mm [Hg] Systolic Blood Pressure 2024-09-27 14:01:00.000 99 mm[ Hg] Systolic Blood Pressure 2024-09-26 09:36:00.000 130 mm [Hg] Systolic Blood Pressure 2024-09-22 10:30:00.000 157 mm [Hg] Systolic Blood Pressure 2024-09-20 11:44:00.000 132 mm [Hg] Systolic Blood Pressure 2024-09-19 14:01:00.000 119 mm [Hg] Systolic Blood Pressure 2024-09-15 13:29:00.000 132 mm [Hg] Systolic Blood Pressure 2024-09-12 16:06:00.000 108 mm [Hg] Systolic Blood Pressure 2024-09-12 11:11:00.000 147 mm [Hg] Systolic Blood Pressure 2024-09-06 11:57:00.000 133 mm [Hg] Systolic Blood Pressure 2024-09-05 12:16:00.000 118 mm [Hg] Systolic Blood Pressure 2024-09-05 11:37:00.000 139 mm [Hg] Systolic Blood Pressure 2024-08-31 09:49:53.000 86 mm[ Hg] Systolic Blood Pressure 2024-08-30 09:03:00.000 128 mm [Hg] Systolic Blood Pressure 2024-08-29 14:51:00.000 118 mm [Hg] Systolic Blood Pressure 2024-08-29 13:56:00.000 118 mm [Hg] Systolic Blood Pressure 2024-08-25 10:36:00.000 112 mm [Hg] Systolic Blood Pressure 2024-08-24 09:09:55.000 114 mm [Hg] Systolic Blood Pressure 2024-08-23 09:51:00.000 124 mm [Hg] Systolic Blood Pressure 2024-08-23 09:06:00.000 127 mm [Hg] Systolic Blood Pressure 2024-08-22 08:40:00.000 140 mm [Hg] Systolic Blood Pressure 2024-08-18 09:34:00.000 108 mm [Hg] Systolic Blood Pressure 2024-08-17 09:22:00.000 134 mm [Hg] Systolic Blood Pressure 2024 12:11:00.000 120 mm [Hg] Systolic Blood Pressure 2024 10:24:47.000 132 mm [Hg] Systolic Blood Pressure 2024-08-12 10:53:00.000 128 mm [Hg] Systolic Blood Pressure 2024-08-11 11:01:00.000 116 mm [Hg] Diastolic Blood Pressure 2024-10-05 11:45:00.000 63 mm [Hg] Diastolic Blood Pressure 2024-09-27 14:01:00.000 61 mm [Hg] Diastolic Blood Pressure 2024-09-26 09:36:00.000 84 mm [Hg] Diastolic Blood Pressure 2024-09-22 10:30:00.000 93 mm [Hg] Diastolic Blood Pressure 2024-09-20 11:44:00.000 80 mm [Hg] Diastolic Blood Pressure 2024-09-19 14:01:00.000 73 mm [Hg] Diastolic Blood Pressure 2024-09-15 13:29:00.000 78 mm [Hg] Diastolic Blood Pressure 2024-09-12 16:06:00.000 62 mm [Hg] Diastolic Blood Pressure 2024-09-12 11:11:00.000 90 mm [Hg] Diastolic Blood Pressure 2024-09-06 11:57:00.000 98 mm [Hg] Diastolic Blood Pressure 2024-09-05 12:16:00.000 80 mm [Hg] Diastolic Blood Pressure 2024-09-05 11:37:00.000 70 mm [Hg] Diastolic Blood Pressure 2024-08-31 09:49:53.000 48 mm [Hg] Diastolic Blood Pressure 2024-08-30 09:03:00.000 79 mm [Hg] Diastolic Blood Pressure 2024-08-29 14:51:00.000 74 mm [Hg] Diastolic Blood Pressure 2024-08-29 13:56:00.000 68 mm [Hg] Diastolic Blood Pressure 2024-08-25 10:36:00.000 62 mm [Hg] Diastolic Blood Pressure 2024-08-24 09:09:55.000 65 mm [Hg] Diastolic Blood Pressure 2024-08-23 09:51:00.000 68 mm [Hg] Diastolic Blood Pressure 2024-08-23 09:06:00.000 75 mm [Hg] Diastolic Blood Pressure 2024-08-22 08:40:00.000 83 mm [Hg] Diastolic Blood Pressure 2024-08-18 09:34:00.000 64 mm [Hg] Diastolic Blood Pressure 2024-08-17 09:22:00.000 88 mm [Hg] Diastolic Blood Pressure 2024 12:11:00.000 73 mm [Hg] Diastolic Blood Pressure 2024 10:24:47.000 83 mm [Hg] Diastolic Blood Pressure 2024-08-12 10:53:00.000 70 mm [Hg] Diastolic Blood Pressure 2024-08-11 11:01:00.000 70 mm [Hg] Plan of Treatment Planned Activity Planned Date Details Comments Future Scheduled Test SKILLED NU RSE TO EVALUATE PATIENT, IDENTIFY PRIMARY AND CO-MORBID CONDITIONS CODED PER CODING GUIDELINES, AND DEVELOP PATIENT SPECIFIC PLAN OF CARE THAT INCLUDES PATIENT GOAL FOR HOME HEALTH. [code = SKILLED NURSE TO EVALUATE PATIENT, IDENTIFY PRIMARY AND CO-MORBID CONDITIONS CODED PER CODING GUIDELINES, AND DEVELOP PATIENT SPECIFIC PLAN OF CARE THAT INCLUDES PATIENT GOAL FOR HOME HEALTH.] Future Scheduled Test SKILLED NU RSE TO PROVIDE TEACHING/REINFORCEMENT RELATED TO URINARY INCONTINENCE. [code = SKILLED NURSE TO PROVIDE TEACHING/REINFORCEMENT RELATED TO URINARY INCONTINENCE.] Future Scheduled Test SKILLED NU RSE TO ASSESS ANXIETY AND PROVIDE ASSISTANCE TO PATIENT FOR UNDERSTANDING AND MANAGEMENT OF FEELINGS. [code = SKILLED NURSE TO ASSESS ANXIETY AND PROVIDE ASSISTANCE TO PATIENT FOR UNDERSTANDING AND MANAGEMENT OF FEELINGS.] Future Scheduled Test OXYGEN VIA NASAL CANNULA @ 2 LITERS CONTINUOUS SKILLED NURSE FOR O/A AND SKILLED TEACHING OF SAFE OXYGEN USE IN THE HOME. [code = OXYGEN VIA NASAL CANNULA @ 2 LITERS CONTINUOUS SKILLED NURSE FOR O/A AND SKILLED TEACHING OF SAFE OXYGEN USE IN THE HOME.] Future Scheduled Test SKILLED NU RSE MAY COLLECT URINE SAMPLE FOR URINE REAGENT STRIP TESTING AND/OR URINALYSIS WITH CS 1-3 PRN IF INDICATED FOR SIGNS AND SYMPTOMS OF UTI. IF REAGENT STRIP TEST IS POSITIVE FOR UTI, SKILLED NURSE TO TAKE URINE SAMPLE TO LAB FOR URINE CS AND REPORT RESULTS TO PHYSICIAN. [code = SKILLED NURSE MAY COLLECT URINE SAMPLE FOR URINE REAGENT STRIP TESTING AND/OR URINALYSIS WITH CS 1-3 PRN IF INDICATED FOR SIGNS AND SYMPTOMS OF UTI. IF REAGENT STRIP TEST IS POSITIVE FOR UTI, SKILLED NURSE TO TAKE URINE SAMPLE TO LAB FOR URINE CS AND REPORT RESULTS TO PHYSICIAN.] Future Scheduled Test SKILLED NU RSE FOR O/A, TEACHING, AND MANAGEMENT OF HEART FAILURE [code = SKILLED NURSE FOR O/A, TEACHING, AND MANAGEMENT OF HEART FAILURE] Future Scheduled Test HOME HEALT H AIDE SERVICES FOR ASSISTANCE WITH PERSONAL CARE AND ADLS SECONDARY TO FUNCTIONAL LIMITATIONS [code = HOME HEALTH AIDE SERVICES FOR ASSISTANCE WITH PERSONAL CARE AND ADLS SECONDARY TO FUNCTIONAL LIMITATIONS] Future Scheduled Test OCCUPATION AL THERAPIST TO EVALUATE PATIENT FOR NEED FOR STRENGTHENING, POOR ENDURANCE, IMPAIRED ABILITY TO PERFORM ADLS [code = OCCUPATIONAL THERAPIST TO EVALUATE PATIENT FOR NEED FOR STRENGTHENING, POOR ENDURANCE, IMPAIRED ABILITY TO PERFORM ADLS] Future Scheduled Test MEDICAL SO CIAL WORKER TO EVALUATE PATIENT FOR NEED FOR COMMUNITY RESOURCES, TRANSPORTATION NEEDS [code = VOCATIONAL COORDINATOR TO EVALUATE PATIENT FOR NEED FOR COMMUNITY RESOURCES, TRANSPORTATION NEEDS] Future Scheduled Test SKILLED NU RSE FOR O/A OF SELF-CARE DEFICITS AND TO PROVIDE TEACHING RELATED TO SAFE PROVISION OF ADLS. [code = SKILLED NURSE FOR O/A OF SELF-CARE DEFICITS AND TO PROVIDE TEACHING RELATED TO SAFE PROVISION OF ADLS.] Future Scheduled Test PHYSICAL T HERAPIST TO EVALUATE PATIENT FOR WEAKNESS IMPAIRED GAIT FREQUENT FALLS POOR BALANCE POOR ENDURANCE [code = PHYSICAL THERAPIST TO EVALUATE PATIENT FOR WEAKNESS IMPAIRED GAIT FREQUENT FALLS POOR BALANCE POOR ENDURANCE] Future Scheduled Test SKILLED NU RSE TO INSTRUCT PATIENT/CAREGIVER ON SIGNS AND SYMPTOMS, RISK FACTORS, COMPLICATIONS, AND MANAGEMENT OF ATRIAL FIBRILLATION. [code = SKILLED NURSE TO INSTRUCT PATIENT/CAREGIVER ON SIGNS AND SYMPTOMS, RISK FACTORS, COMPLICATIONS, AND MANAGEMENT OF ATRIAL FIBRILLATION.] Future Scheduled Test SKILLED NU RSE TO PROVIDE TEACHING ON SIGNS AND SYMPTOMS AND MANAGEMENT OF HYPERTENSION. [code = SKILLED NURSE TO PROVIDE TEACHING ON SIGNS AND SYMPTOMS AND MANAGEMENT OF HYPERTENSION.] Future Scheduled Test SKILLED NU RSE TO INSTRUCT PATIENT/CAREGIVER ON COPD TO INCLUDE TEACHING AND SELF-MANAGEMENT RELATED TO COPD DISEASE PROCESS, SIGNS AND SYMPTOMS, AND COMPLICATIONS. [code = SKILLED NURSE TO INSTRUCT PATIENT/CAREGIVER ON COPD TO INCLUDE TEACHING AND SELF-MANAGEMENT RELATED TO COPD DISEASE PROCESS, SIGNS AND SYMPTOMS, AND COMPLICATIONS.] Future Scheduled Test PATIENT COLIN S A RISK OF HOSPITALIZATION AND ED USE. SKILLED NURSE TO ESTABLISH SUPPORT MEASURES TO MINIMIZE RISK OF HOSPITALIZATION AND ED USE, AND INSTRUCT PATIENT/CAREGIVER ON METHODS TO REDUCE AVOIDABLE HOSPITALIZATION AND ED USE. [code = PATIENT HAS A RISK OF HOSPITALIZATION AND ED USE. SKILLED NURSE TO ESTABLISH SUPPORT MEASURES TO MINIMIZE RISK OF HOSPITALIZATION AND ED USE, AND INSTRUCT PATIENT/CAREGIVER ON METHODS TO REDUCE AVOIDABLE HOSPITALIZATION AND ED USE.] Future Scheduled Test SKILLED NU RSE TO PROVIDE INSTRUCTION TO PATIENT/CAREGIVER RELATED TO DISCHARGE PLANNING. [code = SKILLED NURSE TO PROVIDE INSTRUCTION TO PATIENT/CAREGIVER RELATED TO DISCHARGE PLANNING.] Future Scheduled Test SKILLED NU RSE TO PERFORM ENVIRONMENTAL SAFETY RISK ASSESSMENT AND FALL RISK ASSESSMENT AND PROVIDE INSTRUCTION TO IMPLEMENT ENVIRONMENTAL SAFETY AND FALL PREVENTION STRATEGIES THROUGHOUT THE CERTIFICATION PERIOD. SKILLED NURSE WILL MAINTAIN SITUATIONAL AWARENESS AND WILL NOTIFY CLINICAL CODING COMPLIANCE MANAGER AND PHYSICIAN/PROVIDER WITH ANY CHANGE IN CONDITION. [code = SKILLED NURSE TO PERFORM ENVIRONMENTAL SAFETY RISK ASSESSMENT AND FALL RISK ASSESSMENT AND PROVIDE INSTRUCTION TO IMPLEMENT ENVIRONMENTAL SAFETY AND FALL PREVENTION STRATEGIES THROUGHOUT THE CERTIFICATION PERIOD. SKILLED NURSE WILL MAINTAIN SITUATIONAL AWARENESS AND WILL NOTIFY CLINICAL CODING COMPLIANCE MANAGER AND PHYSICIAN/PROVIDER WITH ANY CHANGE IN CONDITION.] Future Scheduled Test SKILLED NU RSE FOR OBSERVATION AND ASSESSMENT OF PATIENTS PAIN LEVEL AND EFFECTIVENESS OF PAIN MANAGEMENT REGIMEN. SKILLED NURSE TO INSTRUCT PATIENT/CAREGIVER REGARDING PHARMACOLOGIC AND NON-PHARMACOLOGIC PAIN CONTROL MEASURES. SKILLED NURSE TO REPORT TO PHYSICIAN IF PAIN LEVEL IS OUTSIDE OF ESTABLISHED PARAMETERS. [code = SKILLED NURSE FOR OBSERVATION AND ASSESSMENT OF PATIENTS PAIN LEVEL AND EFFECTIVENESS OF PAIN MANAGEMENT REGIMEN. SKILLED NURSE TO INSTRUCT PATIENT/CAREGIVER REGARDING PHARMACOLOGIC AND NON-PHARMACOLOGIC PAIN CONTROL MEASURES. SKILLED NURSE TO REPORT TO PHYSICIAN IF PAIN LEVEL IS OUTSIDE OF ESTABLISHED PARAMETERS.] Future Scheduled Test SKILLED NU RSE TO ASSESS PATIENT'S SKIN INTEGRITY AND INSTRUCT PATIENT/CAREGIVER ON MEASURES TO PREVENT PRESSURE ULCERS. [code = SKILLED NURSE TO ASSESS PATIENT'S SKIN INTEGRITY AND INSTRUCT PATIENT/CAREGIVER ON MEASURES TO PREVENT PRESSURE ULCERS.] Future Scheduled Test SKILLED NU RSE TO PROVIDE ASSESSMENT AND TEACHING/REINFORCEMENT OF MANAGEMENT OF DEPRESSION INCLUDING DISEASE PROCESS, MEDICATION MANAGEMENT, COPING SKILLS AND IDENTIFY CHANGES ASSOCIATED WITH DEPRESSIVE DISORDERS FOR EARLY INTERVENTION. [code = SKILLED NURSE TO PROVIDE ASSESSMENT AND TEACHING/REINFORCEMENT OF MANAGEMENT OF DEPRESSION INCLUDING DISEASE PROCESS, MEDICATION MANAGEMENT, COPING SKILLS AND IDENTIFY CHANGES ASSOCIATED WITH DEPRESSIVE DISORDERS FOR EARLY INTERVENTION.] Future Scheduled Test SN TO INST RUCT PATIENT/CAREGIVER ON HEART FAILURE MANAGEMENT UTILIZING THE MATTERS OF THE HEART SPECIALTY PROGRAM. [code = SN TO INSTRUCT PATIENT/CAREGIVER ON HEART FAILURE MANAGEMENT UTILIZING THE MATTERS OF THE HEART SPECIALTY PROGRAM.] Future Scheduled Test SN TO INST RUCT PATIENT/CAREGIVER ON COPD MANAGEMENT UTILIZING THE BREATHING WITH CARE SPECIALTY PROGRAM. [code = SN TO INSTRUCT PATIENT/CAREGIVER ON COPD MANAGEMENT UTILIZING THE BREATHING WITH CARE SPECIALTY PROGRAM.] Future Scheduled Test SKILLED NU RSE TO REVIEW PATIENT MEDICATIONS (PRESCRIPTION/OTC). INSTRUCT PATIENT/CAREGIVER ON ALL MEDICATIONS INCLUDING PURPOSE, WHEN TO TAKE, IMPORTANCE OF MEDICATION ADHERENCE, MONITORING OF EFFECTIVENESS, ADVERSE DRUG REACTIONS, POSSIBLE SIDE EFFECTS, AND WHEN TO NOTIFY AGENCY OR PHYSICIAN/PROVIDER OF ANY CONCERNS. [code = SKILLED NURSE TO REVIEW PATIENT MEDICATIONS (PRESCRIPTION/OTC). INSTRUCT PATIENT/CAREGIVER ON ALL MEDICATIONS INCLUDING PURPOSE, WHEN TO TAKE, IMPORTANCE OF MEDICATION ADHERENCE, MONITORING OF EFFECTIVENESS, ADVERSE DRUG REACTIONS, POSSIBLE SIDE EFFECTS, AND WHEN TO NOTIFY AGENCY OR PHYSICIAN/PROVIDER OF ANY CONCERNS.] Future Scheduled Test SKILLED NU RSE FOR O/A, TEACHING AND MANAGEMENT OF URINARY TRACT INFECTION. [code = SKILLED NURSE FOR O/A, TEACHING AND MANAGEMENT OF URINARY TRACT INFECTION.] Future Scheduled Test PHYSICAL T HERAPIST TO EVALUATE PATIENT SECONDARY TO FUNCTIONAL DEFICITS/SAFETY CONCERNS. P.T. TO ASSESS BEST PRACTICE INTERVENTIONS TO ASSIST PT TO IMPROVE/STABILIZE MEDICAL STATUS AND PREVENT RE-HOSPITALIZATION. MEASURES INCLUDING REVIEW AND IDENTIFICATION OF CONCERNS FOR THE FOLLOWING AREAS: ENVIRONMENTAL SAFETY ISSUES AND FALLS, EQUIPMENT NEEDS, DECLINE OF FUNCTION, PAIN, AND DISEASE MANAGEMENT. P.T. TO ESTABLISH/UPGRADE/DOWNGRADE A HEP AND INSTRUCT PT ON EXERCISE PRECAUTIONS. THE HEP MAY INCLUDE SEATED/SUPINE/STANDING THER EX TARGETING BLE/CORE STRENGTH/FLEXIBILITY AND BALANCE TRAINING APPROPRIATE TO IMPROVE FUNCTIONAL STRENGTH AND BALANCE. PHYSICAL THERAPY TO INSTRUCT PATIENT/CAREGIVER ON SAFE TRANSFER TECHNIQUES USING PROPER BODY MECHANICS AND EQUIPMENT. PHYSICAL THERAPY TO INSTRUCT PATIENT/CAREGIVER ON GAIT TRAINING TECHNIQUES USING APPROPRIATE ASSISTIVE DEVICE, PROPER BODY MECHANICS TO IMPROVE MOBILITY, AND PREVENT INJURY OF PATIENT AND/OR CAREGIVER. PHYSICAL THERAPY TO ASSESS AND RECOMMEND HOME SAFETY ADAPTATIONS AND EDUCATE PATIENT /CAREGIVER ON FALL PREVENTION STRATEGIES. PHYSICAL THERAPY TO INSTRUCT PATIENT/CAREGIVER ON BALANCE AND BALANCE STRATEGIES TO IMPROVE SAFE MOBILITY AND REDUCE RISK FOR FALL AND INJURY THERAPIST TO REVIEW PATIENT MEDICATIONS (PRESCRIPTION/OTC). INSTRUCT PATIENT/CAREGIVER ON ALL MEDICATIONS INCLUDING PURPOSE, WHEN TO TAKE, IMPORTANCE OF MEDICATION ADHERENCE, MONITORING OF EFFECTIVENESS, ADVERSE DRUG EVENTS, POSSIBLE SIDE EFFECTS, AND WHEN TO NOTIFY AGENCY OR PHYSICIAN/PROVIDER OF ANY CONCERNS. THERAPIST TO PROVIDE FUNCTIONAL STRATEGIES/TECHNIQUES FOR MANAGING MEDICATIONS. [code = PHYSICAL THERAPIST TO EVALUATE PATIENT SECONDARY TO FUNCTIONAL DEFICITS/SAFETY CONCERNS. P.T. TO ASSESS BEST PRACTICE INTERVENTIONS TO ASSIST PT TO IMPROVE/STABILIZE MEDICAL STATUS AND PREVENT RE-HOSPITALIZATION. MEASURES INCLUDING REVIEW AND IDENTIFICATION OF CONCERNS FOR THE FOLLOWING AREAS: ENVIRONMENTAL SAFETY ISSUES AND FALLS, EQUIPMENT NEEDS, DECLINE OF FUNCTION, PAIN, AND DISEASE MANAGEMENT. P.T. TO ESTABLISH/UPGRADE/DOWNGRADE A HEP AND INSTRUCT PT ON EXERCISE PRECAUTIONS. THE HEP MAY INCLUDE SEATED/SUPINE/STANDING THER EX TARGETING BLE/CORE STRENGTH/FLEXIBILITY AND BALANCE TRAINING APPROPRIATE TO IMPROVE FUNCTIONAL STRENGTH AND BALANCE. PHYSICAL THERAPY TO INSTRUCT PATIENT/CAREGIVER ON SAFE TRANSFER TECHNIQUES USING PROPER BODY MECHANICS AND EQUIPMENT. PHYSICAL THERAPY TO INSTRUCT PATIENT/CAREGIVER ON GAIT TRAINING TECHNIQUES USING APPROPRIATE ASSISTIVE DEVICE, PROPER BODY MECHANICS TO IMPROVE MOBILITY, AND PREVENT INJURY OF PATIENT AND/OR CAREGIVER. PHYSICAL THERAPY TO ASSESS AND RECOMMEND HOME SAFETY ADAPTATIONS AND EDUCATE PATIENT /CAREGIVER ON FALL PREVENTION STRATEGIES. PHYSICAL THERAPY TO INSTRUCT PATIENT/CAREGIVER ON BALANCE AND BALANCE STRATEGIES TO IMPROVE SAFE MOBILITY AND REDUCE RISK FOR FALL AND INJURY THERAPIST TO REVIEW PATIENT MEDICATIONS (PRESCRIPTION/OTC). INSTRUCT PATIENT/CAREGIVER ON ALL MEDICATIONS INCLUDING PURPOSE, WHEN TO TAKE, IMPORTANCE OF MEDICATION ADHERENCE, MONITORING OF EFFECTIVENESS, ADVERSE DRUG EVENTS, POSSIBLE SIDE EFFECTS, AND WHEN TO NOTIFY AGENCY OR PHYSICIAN/PROVIDER OF ANY CONCERNS. THERAPIST TO PROVIDE FUNCTIONAL STRATEGIES/TECHNIQUES FOR MANAGING MEDICATIONS.] Future Scheduled Test OCCUPATION AL THERAPIST TO EVALUATE PATIENT SECONDARY TO FUNCTIONAL DEFICITS/SAFETY CONCERNS IDENTIFIED DURING EVALUATION OCCUPATIONAL THERAPIST TO ASSESS BEST PRACTICE INTERVENTIONS TO ASSIST PATIENTS TO IMPROVE OR STABILIZE MEDICAL STATUS AND PREVENT RE-HOSPITALIZATION. MEASURES INCLUDING REVIEW AND IDENTIFICATION OF CONCERNS FOR THE FOLLOWING AREAS ENVIRONMENTAL SAFETY ISSUES AND FALLS, PRESSURE ULCERS, PAIN, AND DISEASE MANAGEMENT. OCCUPATIONAL THERAPY TO ESTABLISH /UPGRADE/DOWNGRADE THERAPEUTIC EXERCISE PROGRAM AND INSTRUCT PATIENT/CAREGIVER ON EXERCISE PRECAUTIONS WITH WRITTEN HOME PROGRAM. MAY INCLUDE BUE PROM, AAROM, AROM, RROM APPROPRIATE TO IMPROVE FUNCTIONAL STRENGTH AND/OR RANGE OF MOTION. OCCUPATIONAL THERAPY TO INSTRUCT PATIENT/CAREGIVER ON SAFE TRANSFER TECHNIQUES USING PROPER BODY MECHANICS AND EQUIPMENT TO ENHANCE PARTICIPATION IN ADLS. OCCUPATIONAL THERAPY TO ASSESS AND RECOMMEND HOME SAFETY ADAPTATIONS AND EDUCATE PATIENT /CAREGIVER ON FALL PREVENTION STRATEGIES TO ENHANCE PARTICIPATION IN ADLS. OCCUPATIONAL THERAPY TO PROVIDE PATIENT/CAREGIVER WITH INSTRUCTIONS AND RECOMMENDATIONS TO IMPROVE ADLS INCLUDING BATHING AND DRESSING WHILE USING APPROPRIATE ADAPTIVE DEVICES RECOMMENDED. OCCUPATIONAL THERAPY TO PROVIDE PATIENT/CAREGIVER WITH INSTRUCTIONS AND RECOMMENDATIONS TO IMPROVE IADLS INCLUDING LIGHT MEAL PREP WHILE USING APPROPRIATE ADAPTIVE DEVICES RECOMMENDED. THERAPIST TO REVIEW PATIENT MEDICATIONS (PRESCRIPTION/OTC). INSTRUCT PATIENT/CAREGIVER ON ALL MEDICATIONS INCLUDING PURPOSE, WHEN TO TAKE, IMPORTANCE OF MEDICATION ADHERENCE, MONITORING OF EFFECTIVENESS, ADVERSE DRUG EVENTS, POSSIBLE SIDE EFFECTS, AND WHEN TO NOTIFY AGENCY OR PHYSICIAN/PROVIDER OF ANY CONCERNS. THERAPIST TO PROVIDE FUNCTIONAL STRATEGIES/TECHNIQUES FOR MANAGING MEDICATIONS. [code = OCCUPATIONAL THERAPIST TO EVALUATE PATIENT SECONDARY TO FUNCTIONAL DEFICITS/SAFETY CONCERNS IDENTIFIED DURING EVALUATION OCCUPATIONAL THERAPIST TO ASSESS BEST PRACTICE INTERVENTIONS TO ASSIST PATIENTS TO IMPROVE OR STABILIZE MEDICAL STATUS AND PREVENT RE-HOSPITALIZATION. MEASURES INCLUDING REVIEW AND IDENTIFICATION OF CONCERNS FOR THE FOLLOWING AREAS ENVIRONMENTAL SAFETY ISSUES AND FALLS, PRESSURE ULCERS, PAIN, AND DISEASE MANAGEMENT. OCCUPATIONAL THERAPY TO ESTABLISH /UPGRADE/DOWNGRADE THERAPEUTIC EXERCISE PROGRAM AND INSTRUCT PATIENT/CAREGIVER ON EXERCISE PRECAUTIONS WITH WRITTEN HOME PROGRAM. MAY INCLUDE BUE PROM, AAROM, AROM, RROM APPROPRIATE TO IMPROVE FUNCTIONAL STRENGTH AND/OR RANGE OF MOTION. OCCUPATIONAL THERAPY TO INSTRUCT PATIENT/CAREGIVER ON SAFE TRANSFER TECHNIQUES USING PROPER BODY MECHANICS AND EQUIPMENT TO ENHANCE PARTICIPATION IN ADLS. OCCUPATIONAL THERAPY TO ASSESS AND RECOMMEND HOME SAFETY ADAPTATIONS AND EDUCATE PATIENT /CAREGIVER ON FALL PREVENTION STRATEGIES TO ENHANCE PARTICIPATION IN ADLS. OCCUPATIONAL THERAPY TO PROVIDE PATIENT/CAREGIVER WITH INSTRUCTIONS AND RECOMMENDATIONS TO IMPROVE ADLS INCLUDING BATHING AND DRESSING WHILE USING APPROPRIATE ADAPTIVE DEVICES RECOMMENDED. OCCUPATIONAL THERAPY TO PROVIDE PATIENT/CAREGIVER WITH INSTRUCTIONS AND RECOMMENDATIONS TO IMPROVE IADLS INCLUDING LIGHT MEAL PREP WHILE USING APPROPRIATE ADAPTIVE DEVICES RECOMMENDED. THERAPIST TO REVIEW PATIENT MEDICATIONS (PRESCRIPTION/OTC). INSTRUCT PATIENT/CAREGIVER ON ALL MEDICATIONS INCLUDING PURPOSE, WHEN TO TAKE, IMPORTANCE OF MEDICATION ADHERENCE, MONITORING OF EFFECTIVENESS, ADVERSE DRUG EVENTS, POSSIBLE SIDE EFFECTS, AND WHEN TO NOTIFY AGENCY OR PHYSICIAN/PROVIDER OF ANY CONCERNS. THERAPIST TO PROVIDE FUNCTIONAL STRATEGIES/TECHNIQUES FOR MANAGING MEDICATIONS.] Goal 2024-10-05 Patient Goal - T O BE ABLE TO GO OUTSIDE AND WALK AROUND WITH MY WALKER Goal Patient Goal - T O BE ABLE TO GO OUTSIDE AND WALK AROUND WITH MY WALKER Goal Provider Goal - A PLAN OF CARE WILL BE ESTABLISHED THAT MEETS PATIENT'S LONGTERM NEEDS AND INCLUDES PATIENT GOAL FOR HOME HEALTH. Goal Provider Goal - PATIENT / CAREGIVER WILL VERBALIZE UNDERSTANDING OF EFFECTS OF URINARY INCONTINENCE BY THE END OF THE CERTIFICATION PERIOD. Goal Provider Goal - SYMPTOMS OF ANXIETY ARE IDENTIFIED AND INTERVENTIONS INITIATED TO ENABLE PATIENT TO UNDERSTAND AND MANAGE FEELINGS THROUGHOUT EPISODE. Goal Provider Goal - PATIENT/CAREGIVER WILL VERBALIZE/DEMONSTRATE UNDERSTANDING OF SAFE OXYGEN USE IN THE HOME THROUGHOUT THE EPISODE. Goal Provider Goal - URINE SPECIMEN WILL BE OBTAINED PRN FOR SIGNS AND SYMPTOMS OF UTI AND RESULTS WILL BE REPORTED TO PHYSICIAN THROUGHOUT THE CERTIFICATION PERIOD. Goal Provider Goal - PATIENT/CAREGIVER WILL VERBALIZE/DEMONSTRATE MANAGEMENT OF HEART FAILURE DISEASE PROCESS AND EXACERBATIONS WILL BE IDENTIFIED AND PROMPTLY REPORTED THROUGHOUT THE CERTIFICATION PERIOD. Goal Provider Goal - PATIENT WILL RECEIVE PERSONAL CARE AND ADL ASSISTANCE. Goal Provider Goal - OCCUPATIONAL THERAPY EVALUATION TO BE COMPLETED WITH RECOMMENDATIONS AND WRITTEN PLAN OF TREATMENT ESTABLISHED FOR THE PHYSICIANS SIGNATURE. Goal Provider Goal - VOCATIONAL COORDINATOR TO COMPLETE EVALUATION TO ADDRESS THE PATIENTS SOCIAL AND EMOTIONAL FACTORS AND/OR WRITTEN PLAN OF TREATMENT ESTABLISHED FOR THE PHYSICIAN'S SIGNATURE. Goal Provider Goal - PATIENT/CAREGIVER WILL VERBALIZE/DEMONSTRATE UNDERSTANDING OF SAFE PROVISION OF ADLS BY THE END OF THE CERTIFICATION PERIOD. Goal Provider Goal - A PHYSICAL THERAPY EVALUATION TO BE COMPLETED WITH RECOMMENDATIONS AND/OR WRITTEN PLAN OF TREATMENT ESTABLISHED FOR PHYSICIANS SIGNATURE. Goal Provider Goal - PATIENT/CAREGIVER WILL VERBALIZE UNDERSTANDING OF SIGNS AND SYMPTOMS, COMPLICATIONS, AND MANAGEMENT OF ATRIAL FIBRILLATION THROUGHOUT THE CERTIFICATION PERIOD. Goal Provider Goal - PATIENT/CAREGIVER WILL VERBALIZE SIGNS AND SYMPTOMS OF HYPERTENSION AND WILL BE ABLE TO DEMONSTRATE ABILITY TO MANAGE EXACERBATION BY END OF THE EPISODE. Goal Provider Goal - PATIENT/CAREGIVER WILL VERBALIZE/DEMONSTRATE KNOWLEDGE AND MANAGEMENT OF COPD BY END OF EPISODE. Goal Provider Goal - PATIENT WILL HAVE SUPPORT MEASURES ESTABLISHED TO PREVENT HOSPITALIZATION AND ED USE AND PATIENT/CAREGIVER WILL VERBALIZE/DEMONSTRATE METHODS TO REDUCE AVOIDABLE HOSPITALIZATION AND ED USE BY END OF EPISODE. Goal Provider Goal - PATIENT/CAREGIVER WILL VERBALIZE UNDERSTANDING OF DISCHARGE PLANNING INSTRUCTIONS BY DATE OF DISCHARGE. Goal Provider Goal - PATIENT/CAREGIVER WILL VERBALIZE/DEMONSTRATE EFFECTIVE ENVIRONMENTAL SAFETY AND FALL PREVENTION STRATEGIES, WILL REMAIN SAFE IN THE COMMUNITY, AND WILL BE FREE OF DANGER TO SELF AND OTHERS THROUGHOUT THE CERTIFICATION PERIOD. Goal Provider Goal - PATIENT/CAREGIVER WILL DEMONSTRATE UNDERSTANDING OF PHARMACOLOGIC AND NONPHARMACOLOGIC PAIN CONTROL MEASURES AND PATIENT WILL HAVE IMPROVEMENT IN PAIN INTERFERING WITH ACTIVITY EVIDENCED BY PAIN AT A LEVEL THAT IS ACCEPTABLE TO THE PATIENT AND PAIN LEVEL WITHIN ESTABLISHED PARAMETERS BY END OF CERTIFICATION PERIOD. Goal Provider Goal - PATIENT/CAREGIVER WILL VERBALIZE UNDERSTANDING OF PRESSURE ULCER PREVENTION BY END OF THE EPISODE. Goal Provider Goal - PATIENT/CAREGIVER WILL VERBALIZE/DEMONSTRATE UNDERSTANDING OF THE MANAGEMENT OF DEPRESSION THROUGHOUT THE CERTIFICATION PERIOD AND SYMPTOMS ARE IDENTIFIED AND MANAGED TO MAINTAIN PATIENT SAFETY IN THE HOME. Goal Provider Goal - PATIENT/CAREGIVER WILL DEMONSTRATE MANAGEMENT OF HEART FAILURE A RESULT OF PARTICIPATION IN MATTERS OF THE HEART SPECIALTY PROGRAM. Goal Provider Goal - PATIENT/CAREGIVER WILL DEMONSTRATE MANAGEMENT OF COPD A RESULT OF PARTICIPATION IN BREATHING WITH CARE SPECIALTY PROGRAM. Goal Provider Goal - PATIENT/CAREGIVER WILL VERBALIZE UNDERSTANDING OF EDUCATION PROVIDED ON MEDICATIONS BY THE END OF THE CERTIFICATION PERIOD. Goal Provider Goal - PATIENT/CAREGIVER WILL VERBALIZE UNDERSTANDING OF URINARY TRACT INFECTION DISEASE PROCESS AND MANAGEMENT. PATIENT WILL BE FREE OF S/S OF UTI UPON COMPLETION OF TREATMENT OF UTI. Goal Provider Goal - PHYSICAL THERAPY EVALUATION TO BE COMPLETED WITH RECOMMENDATIONS AND/OR WRITTEN TREATMENT PLAN OF CARE ESTABLISHED FOR THE PHYSICIANS SIGNATURE PATIENT/CAREGIVER VERBALIZES UNDERSTANDING OF THE INITIAL BEST PRACTICE RECOMMENDATIONS. PHYSICIAN TO BE NOTIFIED APPROPRIATE FOR ANY CHANGES OR COMPLICATIONS THROUGHOUT THE CERTIFICATION PERIOD. PATIENT/CAREGIVER WILL PERFORM THERAPEUTIC EXERCISE/S AND DEMONSTRATE PARTICIPATION IN A HOME PROGRAM. PATIENT/CAREGIVER WILL DEMONSTRATE SAFE TRANSFERS USING APPROPRIATE ASSISTIVE DEVICE, BODY MECHANICS AND EQUIPMENT. PATIENT/CAREGIVER WILL DEMONSTRATE IMPROVED GAIT TECHNIQUES TO MINIMIZE RISK OF INJURY. PATIENT/CAREGIVER WILL DEMONSTRATE/VERBALIZE UNDERSTANDING OF RECOMMENDATIONS TO INCREASE SAFETY IN THE HOME AND FALL PREVENTION. PATIENT/CAREGIVER WILL DEMONSTRATE IMPROVED BALANCE AND REDUCE THE RISK OF FALLS AND INJURY. PATIENT/CAREGIVER WILL VERBALIZE/DEMONSTRATE UNDERSTANDING OF MEDICATIONS AND STRATEGIES/TECHNIQUES FOR MEDICATION MANAGEMENT BY THE END OF THE CERTIFICATION PERIOD. Goal Provider Goal - OCCUPATIONAL THERAPIST TO EVALUATE PATIENT SECONDARY TO FUNCTIONAL DEFICITS/SAFETY CONCERNS IDENTIFIED DURING EVALUATION. PATIENT/CAREGIVER VERBALIZES UNDERSTANDING OF THE INITIAL BEST PRACTICE RECOMMENDATIONS. PHYSICIAN TO BE NOTIFIED APPROPRIATE FOR ANY CHANGES OR COMPLICATIONS THROUGHOUT THE CERTIFICATION PERIOD. PATIENT/CAREGIVER WILL PERFORM THERAPEUTIC EXERCISE/S AND DEMONSTRATE PARTICIPATION IN A HOME PROGRAM. PATIENT/CAREGIVER WILL DEMONSTRATE SAFE TRANSFERS USING APPROPRIATE ASSISTIVE DEVICE, BODY MECHANICS AND EQUIPMENT. CAREGIVER/PATIENT WILL DEMONSTRATE/VERBALIZE UNDERSTANDING OF RECOMMENDATIONS TO INCREASE SAFETY IN THE HOME AND FALL PREVENTION PATIENT/CAREGIVER WILL DEMONSTRATE IMPROVED ABILITY TO PERFORM ACTIVITIES OF DAILY LIVING. PATIENT/CAREGIVER WILL DEMONSTRATE IMPROVED ABILITY TO PERFORM INSTRUMENTAL ACTIVITIES OF DAILY LIVING. PATIENT/CAREGIVER WILL VERBALIZE/DEMONSTRATE UNDERSTANDING OF MEDICATIONS AND STRATEGIES/TECHNIQUES FOR MEDICATION MANAGEMENT BY THE END OF THE CERTIFICATION PERIOD. Progress Notes Progress Notes <paragraph>[Visit Date: 2024 by GOYO RAY RN]:</paragraph><paragraph>MESSAGE LEFT WITH PLAN OF CARE TO PCP DR. DIAZ TYPE OF VISIT (SOC/ALFA/RCT): RECERT VISIT DATE: 11.05 PAYOR SOURCE: MEDICARE PRIMARY DIAGNOSIS/FOCUS OF CARE: COPD CO-MORBIDITIES THAT MAY IMPACT POC: UTI ALTERED MENTAL STATUS COPD AFIB HYPERTENSION ANXIETY HYPOTHYROIDISM OBESITY DEPRESSION ANXIETY LOWER EXTREMITY EDEMA CHF/COPD? YES TELEHEALTH __YES _X_NO __IF NO, INDICATE REASON; PT REFUSED __IF NO, DOES THE PATIENT HAVE THEIR OWN MONITORING EQUIPMENT (I.E., SCALE, PULSE OX)? YES DISCIPLINES/FREQUENCY NEEDED: _X_SN: 1W9 __PT: __OT: __ST __MSW: __HHA: __OTHER: CLINICAL REPORT (E.G., INJECTIONS, CATH CHANGES, IV THERAPY, WOUND CARE): PATIENT REMAINS IN HER HOME WITH 2 L OF CONTINUOUS OXYGEN PER NASAL CANNULA, CONTINUED NEED FOR EDUCATION AND DISEASE MANAGEMENT OF COPD. PATIENT USES A WALKER FOR AMBULATION, STATES THAT SHE GETS VERY WEAK AT TIMES AND HAS HAD MULTIPLE FALLS OVER THE PAST YEQR, NOTING RECENTLY. PATIENT'S CHILDREN ALL LIVE CLOSE BY AND ARE AVAILABLE IN A FEW TIMES A WEEK. 1 OF HER DAUGHTER'S COMES OVER AND SITS UP ALL OF HER MEDICATIONS WEEKLY, ONE DAUGHTER NOW LIVING WITH PT AND . PATIENT'S LUNG SOUNDS ARE DIMINISHED UPON AUSCULTATION NO COARSE OR RHONCHI LUNG SOUNDS NOTED, PATIENT STATES THAT SHE DOES HAVE A COUGH BUT IT IS NONPRODUCTIVE. PT REPORTS SHORTNESS OF BREATH WITH MINIMAL EXERTION INCLUDING WHILE PERFORMING ALL ADLS. PATIENT WAS ABLE TO AMBULATE WITH HER WALKER INTO HER BATHROOM APPROXIMATELY 100 FOOT WALK WITH 1 BREAK TO CATCH HER BREATH WITH OXYGEN. PLAN FOR LONGTERM DATE OF NEXT VISIT: 10.12 RAPID SUBSEQUENT VISIT NEEDED (SOC ONLY): NO HOSPITAL RISK: HIGH VIRTUAL CALLS APPROPRIATE FOR PATIENT: NO SPECIALTY PROGRAM: __BELIEVE __BETTER BALANCE __BLOOM __BRAVE _X_BREATHING WITH CARE __EMBRACE __EYE CARE, WE CARE __FRONT AND CENTER __JOINT VENTURE __MATTERS OF THE HEART __MEANINGFUL CARE __MINDFUL CARE __ROLL FOR CONTROL __SEPSIS __STROKE CONFIRM CARE TYPE ADDED FOR SPECIALTY PROGRAMS, ACOS AND/OR VALUE-BASED PROGRAMS: YES POINTCARE VISIT ALERT NEEDED (SAFETY CONCERNS, DOG, USE BACK DOOR)? NO PHYSICIAN/PROVIDER NAME: DR EMILY TUCKER PHYSICIAN/PROVIDER APPOINTMENT: 2 WEEKS</paragraph> Encounters Start Date/Time End Date/Time Encounter Type Admission Type Attending Clinicians Care Facility Care Department Encounter ID Discharge Date Discharge Status Discharge Condition Discharge Reason Percent Goals Met 2024-08-11 00:00:00 2024-10-09 00:00:00 Outpatient NEW ADMISSION GOYO RAY [facility] [id number] 54.93
--- OUTSIDE RECORDS SUMMARY | 2024-10-08 20:00 | XMS_ITS | Clinical Summary ---
Author Organization Unknown Care Team Providers Care Field Control Inspector Name Role Phone EMILY ELISE, RUDY Unavailable Unavailable LORNE COOLEYN, EFRAÍN Unavailable Unavailable JESUS ROSAS, KYARA Unavailable Unavailable EVIE CRAFT WORKER, ROSI Unavailable Unavailable FRETZ OT, AMELIA Unavailable Unavailable DANIEL PT, LANE Unavailable Unavailable FLOR RN, GOYO Unavailable Unavailable Payers Payer Name Policy Type Policy Number Effective Date Expira tion Date MEDICARE - [place] - PDGM [id number] Problems Condition Name Condition Details Condition Category [...] to health literacy Active 02-16 00:00: 00 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 (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 OF 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 Active 02-16 00:00: 00 HALFWAY (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 OF ANTICOAGULAN TS Active 02-16 [...] 0.5 mg tablet 07-21 00:00: 00 Yes [id number] 0.5 tablet DAILY 0.5 tablet DAILY (route: oral) Med Classific ation: Central Nervous System Agents albuterol sulfate HFA 90 mcg/actuati on aerosol inhaler 08-11 00:00: 00 Yes [id number] 2 puff NEEDED 2 puff NEEDED (route: inhalation ) Med Classific ation: Respirato ry Therapy Agents Aspirin Childrens 81 mg chewable tablet 08-11 00:00: 00 Yes [id number] 1 tablet DAILY 1 tablet DAILY (route: oral) Med Classific ation: Hematolog ical Agents atorvastati n 80 mg tablet 08-11 00:00: 00 Yes [id number] 1 tablet DAILY 1 tablet DAILY (route: oral) Med Classific ation: Cardiovas cular Therapy Agents bumetanide 1 mg tablet 08-11 00:00: 00 Yes [id number] 1 tablet NEEDED 1 tablet NEEDED (route: oral) Med Classific ation: Cardiovas cular Therapy Agents Calcium-600 600 mg (as calcium carbonate 1,500 mg) tablet 08-11 00:00: 00 Yes [id number] 2 tablet DAILY 2 tablet DAILY (route: oral) Med Classific ation: Electroly te Balance-N utritiona l Products Eliquis 5 mg tablet 08-11 00:00: 00 Yes [id number] 1 tablet 2 TIMES DAILY 1 tablet 2 TIMES DAILY (route: oral) Med Classific ation: Hematolog ical Agents lisinopril 5 mg tablet 08-11 00:00: 00 Yes [id number] 0.5 tablet DAILY 0.5 tablet DAILY (route: oral) Med Classific ation: Cardiovas cular Therapy Agents lorazepam 0.5 mg tablet 08-11 00:00: 00 Yes [id number] 1 tablet BEDTIME 1 tablet BEDTIME (route: oral) Med Classific ation: Central Nervous System Agents methimazole 10 mg tablet 08-11 00:00: 00 Yes [id number] 0.5 tablet DIRECTED 0.5 tablet DIRECTED (route: oral) Med Classific ation: Endocrine metoprolol succinate ER 50 mg tablet,exte nded release 24 hr 08-11 00:00: 00 Yes [id number] 1 tablet DAILY 1 tablet DAILY (route: oral) Med Classific ation: Cardiovas cular Therapy Agents Multivitami n 50 Plus tablet 08-11 00:00: 00 Yes [id number] 1 tablet DAILY 1 tablet DAILY (route: oral) Med Classific ation: Electroly te Balance-N utritiona l Products paroxetine 20 mg tablet 08-11 00:00: 00 Yes [id number] 1 tablet DAILY 1 tablet DAILY (route: oral) Med Classific ation: Central Nervous System Agents spironolact one 25 mg tablet 08-11 00:00: 00 Yes [id number] 1 tablet DAILY 1 tablet DAILY (route: oral) Med Classific ation: Cardiovas cular Therapy Agents Vitamin D3 25 mcg (1,000 unit) capsule 08-11 00:00: 00 Yes [id number] 1 capsule DAILY 1 capsule DAILY (route: [...] FOR COMMUNITY RESOURCES, TRANSPORTATION NEEDS [code = LINK TRAINER TO EVALUATE PATIENT FOR NEED FOR COMMUNITY [...] MAINTAIN SITUATIONAL AWARENESS AND WILL NOTIFY CLINICAL MOWING MACHINE OPERATOR AND PHYSICIAN/PROVIDER WITH ANY CHANGE IN CONDITION. [code = SKILLED NURSE TO PERFORM ENVIRONMENTAL SAFETY RISK ASSESSMENT AND FALL RISK ASSESSMENT AND PROVIDE INSTRUCTION TO IMPLEMENT ENVIRONMENTAL SAFETY AND FALL PREVENTION STRATEGIES THROUGHOUT THE CERTIFICATION PERIOD. SKILLED NURSE WILL MAINTAIN SITUATIONAL AWARENESS AND WILL NOTIFY CLINICAL MOWING MACHINE OPERATOR AND PHYSICIAN/PROVIDER WITH ANY CHANGE IN CONDITION.] [...] CARE WILL BE ESTABLISHED THAT MEETS PATIENT'S ASSISTED NEEDS AND INCLUDES PATIENT GOAL FOR HOME [...] THE PHYSICIANS SIGNATURE. Goal Provider Goal - LINK TRAINER TO COMPLETE EVALUATION TO ADDRESS THE PATIENTS [...] CATCH HER BREATH WITH OXYGEN. PLAN FOR ASSISTED DATE OF NEXT VISIT: 10.12 RAPID SUBSEQUENT [...] 2024-10-09 00:00:00 Outpatient NEW ADMISSION GOYO RAY [facility] [id number] 54.93
== END 2024-10-07 12:39 | disposition home or self-care (01) ==
PROVIDERS: Emergency Provider Student in an Organized Health Care Education/Training Program; PCP Internal Medicine
DX: M79.604 Pain in right leg (principal); Z99.81 Dependence on supplemental oxygen; Z90.49 Acquired absence of other specified parts of digestive tract; Z90.710 Acquired absence of both cervix and uterus
CPT/HCPCS: 72100; 73502; 99283

== ENCOUNTER 2024-10-19 08:04 | Outpatient (OUT) | payer MEDICARE, OTHER, SELFPAY ==
--- OUTSIDE RECORDS SUMMARY | 2024-10-19 08:14 | XMS_ITS | CCD ---
Author Organization [facility] Care Team Providers Care Watch Parts Grinder Name Role Phone KEANU ISLAS Admitting Unavailable [...] DR GRANT Primary Care Unavailable STEPH, DR AMYRA Denson Admitting Unavailabl e REINECK, DR MAYRA [...] Unavailable ZIEBAMAIRANI, DR JOEL Petersen Consulting Unavailable KEANU ISLAS Consulting Unavailable CHERY, SHELDON Consulting Unavailable CHERY, SHELDON Attending Unavailable CHERY, SHELDON Admitting Unavailable EMILY, DR GRANT Primary Care Unavailable OBELIEL CELESTE Attending Unavailable OLE YANG Referring Unavailable OLE YANG Primary Care Unavailable Ole Yang MD Unavailable [phone] Ole Yang MD Primary Care Provider Thursday EDITOR CONTINUITY AND SCRIPT, Bea Unavailable Debora Saenz RN Unavailable [phone] Ole Yang MD [facility] Un[facility] Unavailable Michael Zapien Attending Provider [phone] Luis E Soares MD Attending Provider [place] EDITOR CONTINUITY AND SCRIPT, Edna Unavailable Ole Yang II Attending Provider Luis E Soares Admitting Unavailable Luis E Soares Attending Unavailable Ole Yang Attending Unavailable Ole Yang Admitting Unavailable KEANU ISLAS Referring Unavailable KEANU ISLAS Referring Unavailable KEANU ISLAS Referring Unavailable CLAUDIO WALKER Attending Unavailable CLAUDIO WALKER Attending Unavailable ELIUD, KEANU Referring Unavailable ELIUD, KEANU Referring Unavailable ELIUD, KEANU Referring Unavailable ELIUD, KEANU Referring Unavailable ELIUD, KEANU Referring Unavailable DANIKA, NILE Referring Unavailable DANIKA, NILE Referring Unavailable ELIUD, KEANU Referring Unavailable ELIUD, KEANU Referring Unavailable ELIUD, KEANU Referring Unavailable OLE YANG Attending Unavailable TERI MARTINEZ Attending Unavailable DIPTI ANDERSON Attending Unavailable DIPTI ANDERSON Attending Unavailable OLE YANG Attending Unavailable OLE YANG Attending Unavailable DIPTI ANDERSON Attending Unavailable TERI MARTINEZ Attending Unavailable TERI MARTINEZ Referring Unavailable DIPTI ANDERSON Attending Unavailable KENNETH CLIFTON Attending Unavailable OLE YANG Referring Unavailable NICOLE LAND Attending Unavailable Medications Current Medications Medication Drug Class(es) Dates Sig (Normalized) Sig (Original) [id number] 200 actuat albuterol 0.09 mg/actuat metered dose [...] (Lipitor) 80 MG tablet Indications: Atherosclerosis of [place] coronary artery of [place] heart without angina pectoris Take 1 tablet (80 mg) by mouth Daily 100 tablet 3 03/02/2024 Active Start: 12-11-2023 atorvastatin ( Lipitor) 80 MG tablet Indications: Atherosclerosis of [place] coronary artery of [place] heart without angina pectoris (CMS/HCC) TAKE 1 TABLET EVERY MORNING 100 tablet 3 12/11/2023 Active Start: 02-18-2023 End: 02-17-2023 take 1 tablet by mouth in the morning atorvastatin (Lipitor) 80 MG tablet Indications: Atherosclerosis of [place] coronary artery of [place] heart without angina pectoris (CMS/HCC) Take 1 tablet (80 mg) by mouth in the morning. 100 tablet 3 02/18/2023 Active Start: 08-03-2022 take 1 tablet by chritsie th in the morning atorvastatin (Lipitor) 80 MG tablet Indications: Atherosclerosis of [place] coronary artery of [place] heart without angina pectoris (CMS/HCC) Take 1 tablet (80 mg) by mouth in the morning. 100 tablet 3 02/18/2023 Active brexpiprazole 0.5 mg oral tablet (20 sources) Atypical Antipsychotic Start: 09-06-2024 End: 09-14-2024 Brexpiprazole (Rexulti) 0.5 MG tablet Indications: Dementia with behavioral disturbance (HCC) Take .25 mg daily 15 tablet 3 09/06/2024 09/14/2024 Discontinued (Dose adjustment) Start: 06-02-2025 take 0.25 mg by mout h once [...] 2 puff(s) by inhalation in the morning Txxgexi-Lsytxljoroc-Pmlqvhhsea (Breztri Aerosphere) 160-9-4.8 MCG/ACT aerosol Indications: Pulmonary [...] tablet (20 sources) Serotonin Reuptake Inhibitor Start: take 1 tablet by mouth in the [...] angina pectoris; Translations: [Atherosclerotic heart disease of [place] coronary artery without angina pectoris] Onset: 09-24-2015 [...] disorder, recurrent, mild] Onset: 07-28-2022 07-28-2022 Chronic Mycoses (2 sources) Pain in toe; Translations: [Tinea unguium] 10-13-2024 Episodic Osteoarthritis (20 sources) Primary osteoarthritis, right shoulder; [...] Translations: [REPEATED FALLS] Onset: 03-20-2022 Episodic Other diseases of veins and lymphatics (2 sources) Vascular insufficiency; Translations: [Venous insufficiency (chronic) (peripheral)] 10-13-2024 Episodic Other eye disorders (1 source) Monocular esotropia, right eye; Translations: [Monocular esotropia, right eye] Onset: 04-27-2023 Episodic Other lower respiratory disease (6 sources) Other forms of dyspnea; Translations: [OTHER FORMS OF DYSPNEA] Onset: 06-18-2021 Episodic Other skin disorders (6 sources) Nail deformity; Translations: [Other nail disorders] 09-14-2024 Episodic Laury-; endo-; and myocarditis; cardiomyopathy (except that caused by tuberculosis or sexually transmitted disease) (20 sources) Cardiomyopathy; Translations: [Cardiomyopathy, unspecified] Onset: 08-07-2023 09-01-2023 Chronic Residual codes; unclassified (2 sources) Localized edema; Translations: [Localized edema] 02-11-2023 Episodic Respiratory failure; insufficiency; arrest (adult) (20 [...] Resolved: 06-02-2024 05-27-2023 Other aftercare (1 source) snf (current) use of aspirin; 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] Onset: 06-18-2021 Episodic Other aftercare (1 source) 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; Translations: [OTH [facility] CURRENT DRUG THERAPY] Onset: 06-18-2021 Episodic Other aftercare (20 sources) Long-term current use of anticoagulant; 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 YELLOW YELLOW [facility] GLUCOSE URINE UA Negative NEGATIVE mg/dL [facility] Interpretation and review of laboratory results Abnormal [facility] Ketones Ql (U) Negative NEGATIVE mg/dL [facility] Leukocyte esterase Test strip Ql (U) Negative NEGATIVE [facility] NITRITE URINE Negative NEGATIVE [facility] pH (U) 7.0 [pH] 5.0 - 9.0 [facility] PROTEIN URINE Negative NEG/TRACE mg/dL [facility] SPECIFIC GRAVITY URINE <=1.005 Abnormal 1.005 - 1.025 [facility] UROBILINOGEN URINE 0.2 EU/dL 0.2 - 1.0 EU/dL [facility] Urine Cultureon 08-11-2025 Bacteria identified Cx Nom (U) 30,000 colonies/ml mixed bacterial skin contaminants 2 Days PERFORMED BY: [place] [address] PATHOLOGIST POST DOCTORAL RESEARCHER JUANA CLIFFORD M.D. Normal [facility] Comment on above: Performed By: #### C UU #### [address] 36on 09-21-2024 36 MD Rosario Rivera MA Good lipids and AST ALT. Continue current medication. Recheck in 6 months Advised patient of lab results per Dr. Walker. Patient verbalized understanding. [facility] Orders Onlyon 09-21-2024 Orders Only [id number] Lluvia Moreno 1940 F Date Provider Department Center 09/21/2024 TiannaELIUDKEANU Oh [facility] Family History Problem Relation Age of Onset Colon cancer Father Coronary artery disease Brother Hypertension Brother Kidney cancer Brother Family Status - Relation Status Age at Father Brother [facility] 36on 09-20-2024 36 Regarding lab result s from 08/18/2024: MD Pita Rivera MA Good lipids and AST ALT. Continue current medication. Recheck in 6 months [facility] ALL LIPID PROFILE (FASTING)o n 08-18-2024 CHOL HDL RATIO 2 [facility] Comment on above: 3.3 - 4.4 LOW RISK 4.4 - 7.1 AVERAGE RISK 7.1 - 11.0 MODERATE RISK >11.0 HIGH RISK Cholesterol [Mass/Vol] 110 mg/dL NINF - 200 mg/dL [facility] Cholesterol in HDL [Mass/Vol] 54 mg/dL 40 - 60 mg/dL [facility] Comment on above: > or =60 mg/dl - LOW CARDIOVASCULAR RISK <40 mg/dl - HIGH CARDIOVASCULAR RISK Magnesium [Mass/Vol] 45 mg/dL [facility] Comment on above: <100 mg/dl OPTIMAL 100-129 mg/dl NEAR OR ABOVE OPTIMAL 130-159 mg/dl BORDERLINE HIGH 160-189 mg/dl HIGH >190 mg/dl VERY HIGH Magnesium [Mass/Vol] 11 mg/dL [facility] Triglyceride [Mass/Vol] 55 mg/dL NINF - 150 mg/dL [facility] Jess[facility] 08-18-2024 ALT [Catalytic activity/Vol] 24 U/L 14 - 59 U/L [facility] Kenneth 08-18-2024 AST [Catalytic activity/Vol] 23 U/L 15 - 37 U/L [facility] No Panel Informationon 08-18 [facility] Office Visiton 08-11-2024 Follow-up visit [id number] Lluvia Moreno 1940 F Date Provider Department Center 08/11/2024 [id number] [facility] Family History Problem Relation Age of Onset Colon cancer Father Coronary artery disease Brother Hypertension Brother Kidney cancer Brother Family Status - Relation Status Age at Father Brother Level of Service:99758 [place] OFFICE/OUTPATIENT ESTABLISHED MOD MDM 30 MIN Reason for Visit and Comments: Atrial Fibrillation [80] Congestive Heart Failure [127] - She was discharged from [facility] a few weeks ago for UTI and NSTEMI. Cardiomyopathy [104] - Due for device check in Jan 2025 - was interrogated a few weeks ago. Coronary Artery Disease [187] Hypertension [853915] Hyperlipidemia [182] Shortness of Breath [865616] Edema [[id number]] - Had RX for Bumex to use PRN but daughter states she hasn't taken it in over 2 years. frequent falls [Other] - Says she fell 3-4 times last month. Normal [facility] URINE CULTURE - FRon 07-25 Interpretation and review of laboratory results Abnormal [facility] URINE CULTURE - [facility] Urine Culture - FR Testing performed at [facility] URINE CULTURE - FR [address] [place] [address] [facility] URINE CULTURE - FR O:ESCCOL Isolated [facility] URINE CULTURE - FR Urine Culture - FR Motley Count [facility] URINE CULTURE - FR >100,000 CFU/ml [facility] URINE CULTURE - FR Organism: 1.1 Antibiotic Interpretation SYLVIA Status [facility] URINE CULTURE - FR Amikacin S F Susceptible [facility] URINE CULTURE - FR Amoxicillin/Clavulanate S F Susceptible [facility] URINE CULTURE - FR Ampicillin S F Susceptible [facility] - [facility] Aztreonam S F Susceptible [facility]INE C[facility] - [facility] Ceftazidime S F Susceptible [facility] URINE CULT[facility] - [facility] Ceftazidime/Avibactam S F Susceptible [facility] URINE CULTURE - [facility] Ceftolozane/Tazobactam S F Susceptible [facility] URINE CULTURE - [facility] Ciprofloxacin S F Susceptible [facility]INE CULTURE - [facility] Ertapenem S F Susceptible [facility] URINE CULTURE - [facility] Gentamicin S F Susceptible [facility]INE CULTURE - [facility] Levofloxacin S F Susceptible [facility] URINE CULTURE - [facility] Meropenem S F Susceptible [facility] URINE CULT[facility] - [facility] Meropenem/Vaborbactam S F Susceptible [facility] URINE CULT[facility] - [facility] Nitrofurantoin S F Susceptible [facility] - [facility] Tetracycline S F Susceptible [facility] URINE CULTURE - [facility] Tigecycline S F Susceptible [facility] URINE CULTURE - [facility] Tobramycin S F Susceptible [facility] URINE CULTURE - [facility] Ampicillin/Sulbactam S F Susceptible [facility] URINE CULTURE - [facility] Cefazolin S F Susceptible [facility] URINE CULTURE - [facility] Cefepime S F Susceptible [facility] URINE CULTURE - [facility] Ceftriaxone S F Susceptible [facility] URINE CULTURE - [facility] Cefuroxime S F Susceptible [facility] URINE CULTURE - [facility] Piperacillin/Tazobactam S F Susceptible [facility] URINE CULTURE - [facility] Trimethoprim/Sulfa R F Resistant [facility] Urine Cultureon 07-22-2024 Bacteria identified Cx Nom (U) ORGANISM: Escherichia coli (O:ESCCOL) Motley Count >100,000 Aerobic SYLVIA Charge (NMIC56) - [...] RESISTANT TO ALL B-LACTAM DRUGS. PERFORMED BY: [place] [address] PATHOLOGIST POST DOCTORAL RESEARCHER JUANA CLIFFORD M.D. Normal [facility] Comment on above: Performed By: #### C UU #### [address] Urine cultureOrdered By: Greg Soares on 07-22-2024 Bacteria identified Cx Nom (U) Escherichia coli Abnormal [facility] Orders Onlyon 07-21-2024 Orders Only [id number] Lluvia Moreno Sergio 1940 F Date Provider Department Center 07/21/2024 Agata-HARI SILVA [facility] Family History Problem Relation Age of Onset Colon cancer Father Coronary artery disease Brother Hypertension Brother Kidney cancer Brother Family Status - Relation Status Age at Father Brother Normal [facility] BASIC METABOLIC PANELon 05-18 Calcium [Mass/Vol] 8.9 mg/dL Normal 8.6-10.4 [facility] Comment on above: Performed By: #### 6 399, 96782, 496, 9950 #### [facility] [address], [address] [place] [address] Lime Plant Operator: Robbie Garnica MD Chloride [Moles/Vol] 108 mmol/L Normal 98-110 [facility] Comment on above: Performed By: #### 6 399, 82875, 496, 7600 #### [facility] [place] [address] Lime Plant Operator: Robbie Garnica MD CO2 [Moles/Vol] 26 mmol/L Normal 20-32 [facility] Comment on above: Performed By: #### 6 399, 38342, 496, 7600 #### [facility] [place] [address] Lime Plant Operator: Robbie Garnica MD Creatinine [Mass/Vol] 1.15 mg/dL High 0.60-0.95 [facility] Comment on above: Performed By: #### 6 399, 71593, 496, 7600 #### [facility] [place] [address] Lime Plant Operator: Robbie Garnica MD GFR/1.73 sq M.predicted among non-blacks MDRD (S/P/Bld) [Vol rate/Area] 48 mL/min/{1.73_m2} Low > OR = 60 [facility] Comment on above: Performed By: #### 6 399, 20138, 496, 7600 #### [facility] [place] [address] Lime Plant Operator: Robbie Garnica MD Glucose [Mass/Vol] 96 mg/dL Normal 65-99 [facility] Comment on above: Result Comment: Fasting reference interval Performed By: #### 6 399, 71547, 496, 7600 #### [facility] [place] [address] Lime Plant Operator: Robbie Garnica MD Potassium [Moles/Vol] 5.1 mmol/L Normal 3.5-5.3 [facility] Comment on above: Performed By: #### 6 399, 83598, 496, 7600 #### [facility] [place] [address] Lime Plant Operator: Robbie Garnica MD Sodium [Moles/Vol] 142 mmol/L Normal 135-146 [facility] Comment on above: Performed By: #### 6 399, 24719, 496, 7600 #### [facility] [place] [address] Lime Plant Operator: Robbie Garnica MD Urea nitrogen [Mass/Vol] 33 mg/dL High 7-25 [facility] Comment on above: Performed By: #### 6 399, 58346, 496, 7600 #### [facility] [place] [address] Lime Plant Operator: Robbie Garnica MD Urea nitrogen/Creatinin e [Mass ratio] 29 mg/mg High - [facility] Comment on above: Performed By: #### 6 399, 58132, 496, 7600 #### [facility] [place] [address] Lime Plant Operator: Robbie Garnica MD CBC (INCLUDES DIFF/PLT)on Basophils (Bld) [#/Vol] 0.039 10*3/uL Normal 0-200 [facility] Comment on above: Performed By: #### 6 399, 12593, 496, 7600 #### [facility] [place] [address] Lime Plant Operator: Robbie Garnica MD Basophils/100 WBC (Bld) 0.6 % Normal [facility] Comment on above: Performed By: #### 6 399, 06074, 496, 7600 #### [facility] [place] [address] Lime Plant Operator: Robbie Garnica MD Eosinophils (Bld) [#/Vol] 0.241 10*3/uL Normal 15-500 [facility] Comment on above: Performed By: #### 6 399, 76314, 496, 7600 #### [facility] [place] [address] Lime Plant Operator: Robbie Garnica MD Eosinophils/100 WBC (Bld) 3.7 % Normal [facility] Comment on above: Performed By: #### 6 399, 42976, 496, 7600 #### [facility] [place] [address] Lime Plant Operator: Robbie Garnica MD Erythrocyte distribution width (RBC) [Ratio] 12.5 % Normal 11.0-15.0 [facility] Comment on above: Performed By: #### 6 399, 56884, 496, 7600 #### [facility] [place] [address] Lime Plant Operator: Robbie Garnica MD Hematocrit (Bld) [Volume fraction] 38.9 % Normal 35.0-45.0 [facility] Comment on above: Performed By: #### 6 399, 68957, 496, 7600 #### [facility] [place] [address] Lime Plant Operator: Robbie Garnica MD Hemoglobin (Bld) [Mass/Vol] 12.6 g/dL Normal 11.7-15.5 [facility] Comment on above: Performed By: #### 6 399, 70014, 496, 7600 #### [facility] [place] [address] Lime Plant Operator: Robbie Garnica MD Lymphocytes (Bld) [#/Vol] 1.053 10*3/uL Normal 850-3900 [facility] Comment on above: Performed By: #### 6 399, 70060, 496, 7600 #### [facility] [place] [address] Lime Plant Operator: Robbie Garnica MD Lymphocytes/100 WBC (Bld) 16.2 % Normal [facility] Comment on above: Performed By: #### 6 399, 56392, 496, 7600 #### [facility] [place] [address] Lime Plant Operator: Robbie Garnica MD MCH (RBC) [Entitic mass] 30.4 pg Normal 27.0-33.0 [facility] Comment on above: Performed By: #### 6 399, 41331, 496, 7600 #### [facility] [place] [address] Lime Plant Operator: Robbie Garnica MD MCHC (RBC) [Mass/Vol] 32.4 [...] clinical condition. Performed By: #### 6 399, 84820, 496, 7600 #### [facility] [place] [address] Lime Plant Operator: Robbie Garnica MD MCV (RBC) [Entitic vol] 93.7 fL Normal 80.0-100.0 [facility] Comment on above: Performed By: #### 6 399, 65040, 496, 7600 #### [facility] [place] [address] Lime Plant Operator: Robbie Garnica MD Monocytes (Bld) [#/Vol] 0.475 10*3/uL Normal 200-950 [facility] Comment on above: Performed By: #### 6 399, 57902, 496, 7600 #### [facility] [place] [address] Lime Plant Operator: Robbie Garnica MD Monocytes/100 WBC (Bld) 7.3 % Normal [facility] Comment on above: Performed By: #### 6 399, 27383, 496, 7600 #### [facility] [place] [address] Lime Plant Operator: Robbie Garnica MD Neutrophils (Bld) [#/Vol] 4.693 10*3/uL Normal 4062-8815 [facility] Comment on above: Performed By: #### 6 399, 01197, 496, 7600 #### [facility] [place] [address] [place] [address] Lime Plant Operator: Robbie Garnica MD Neutrophils/100 WBC (Bld) 72.2 % Normal [facility] Comment on above: Performed By: #### 6 399, 70498, 496, 7600 #### [facility] [place] [address] Lime Plant Operator: Robbie Garnica MD Platelet mean volume (Bld) [Entitic vol] 11.4 fL Normal 7.5-12.5 [facility] Comment on above: Performed By: #### 6 399, 15829, 496, 7600 #### [facility] [place] [address] Lime Plant Operator: Robbie Garnica MD Platelets (Bld) [#/Vol] 186 10*3/uL Normal 140-400 [facility] Comment on above: Performed By: #### 6 399, 59605, 496, 7600 #### [facility] [place] [address] Lime Plant Operator: Robbie Garnica MD RBC (Bld) [#/Vol] 4.15 10*6/uL Normal 3.80-5.10 [facility] Comment on above: Performed By: #### 6 399, 48383, 496, 7600 #### [facility] [place] [address] Lime Plant Operator: Robbie Garnica MD WBC (Bld) [#/Vol] 6.5 10*3/uL Normal 3.8-10.8 [facility] Comment on above: Performed By: #### 6 399, 59483, 496, 7600 #### [facility] [place] [address] Lime Plant Operator: Robbie Garnica MD HEMOGLOBIN A1con 06-07-2024 HbA1c [...] for children. Performed By: #### 6 399, 84003, 496, 7600 #### [facility] [address], [address] [place] [address] Lime Plant Operator: Robbie Garnica MD LIPID PANEL, [facility] 05-18 Cholesterol [Mass/Vol] 118 mg/dL Normal <200 [facility] Comment on above: Order Comment: FASTI NG:YES FASTING: YES Performed By: #### 6 399, 11352, 496, 7600 #### [facility] [address], [address] [place] [address] Lime Plant Operator: Robbie Garnica MD Cholesterol in HDL [Mass/Vol] 54 mg/dL Normal > OR = 50 [facility] Comment on above: Order Comment: FASTI NG:YES FASTING: YES Performed By: #### 6 399, 31583, 496, 7600 #### [facility] [address], [address] [place] [address] Lime Plant Operator: Robbie Garnica MD Cholesterol in LDL [Mass/Vol] [...] LDL-C. Damion HELTON et al. CONSUELO. 2013;310(19): 9657-2282 (http://education.Pigeonly.Vivisimo/faq/GIU257) Performed By: #### 6 399, 39367, 496, 7600 #### [facility] [address], [address] [place] [address] Lime Plant Operator: Robbie Garnica MD Cholesterol.total/ Cholesterol in HDL [Mass ratio] 2.2 {ratio} Normal <5.0 [facility] Comment on above: Order Comment: FASTI NG:YES FASTING: YES Performed By: #### 6 399, 39994, 496, 7600 #### [facility] [address], [address] [place] [address] Lime Plant Operator: Robbie Garnica MD NON HDL CHOLESTEROL 64 mg/dL (calc) Normal <130 [facility] Comment on above: Order Comment: FASTI NG:YES FASTING: YES Result Comment: For patients with diabetes plus 1 major ASCVD risk factor, treating to a non-HDL-C goal of <100 mg/dL (LDL-C of <70 mg/dL) is considered a therapeutic option. Performed By: #### 6 399, 07229, 496, 7600 #### [facility] [address], [address] [place] [address] Lime Plant Operator: Robbie Garnica MD Triglyceride [Mass/Vol] 66 mg/dL Normal <150 [facility] Comment on above: Order Comment: FASTI NG:YES FASTING: YES Performed By: #### 6 399, 70019, 496, 7600 #### [facility] [address], [address] [place] [address] Lime Plant Operator: Robbie Garnica MD VITAMIN D,25-OH,TOTAL,IAon 0 06-07-2024 [...] D, (D2,D3), LC/MS/MS is recommended: order code 23791 (patients >2yrs). See Note 1 Note 1 For additional information, please refer to http://education.Plexx/faq/RRN456 (This link is being provided for informational/ educational purposes only.) Performed By: #### 6 399, 23841, 217, 8898 #### [facility] [address] [facility], [address] [place] [address] Lime Plant Operator: Robbie Garnica MD ALL T3 FREEon 05-23-2024 Free T3 [Mass/Vol] 2.72 pg/mL 2.18 - 3. 98 pg/mL [facility] ALL THYROID STIM HORMONEon 0 05-23-2024 Interpretation and review of laboratory results Abnormal [facility] TSH Qn 4.74 m[IU]/L High [facility] ALL THYROXINE (T4) FREEon Free T4 [Mass/Vol] 0.98 ng/dL 0.76 - 1. 46 ng/dL [facility] No Panel Informationon 05-23 [facility] 36on 01-26-2024 36 Spoke with patient a nd made her aware to start taking full tablet of spironolactone starting tomorrow per Dr. Walker. Advised her to still cut lisinopril tablet in half. She will continue to track BP's and call us with updates. Patient verbalized understanding. [facility] 36 Patient called to marcello marquez you aware that since decreasing spironolactone and lisinopril yesterday her BP has been: 147/92 160/108 172/118 I told her to take the other half tablet of spironolactone right now. Any other recommendations? Please advise. Thanks [facility] Office Visiton 01-25-2024 Follow-up visit [id number] Lluvia Moreno Sergio 1940 F Date Provider Department Center 01/25/2024 [id number] ROBINS Family History Problem Relation Age of Onset Colon cancer Father Coronary artery disease Brother Hypertension Brother Kidney cancer Brother Family Status - Relation Status Age at Father Brother Level of Service:15842 [place] OFFICE/OUTPATIENT ESTABLISHED MOD MDM 30 MIN Reason for Visit and Comments: Atrial Fibrillation [80] - Had thyroid function last month. Shortness of Breath [793553] Hypertension [427016] Cardiomyopathy [104] Valve Disorder [3372] Coronary Artery Disease [187] Congestive Heart Failure [127] - Admitted to [facility] in August 2023 for COPD, hypertension, and CHF. Pacemaker Check [337] - Per device rep, all looks good, no events . Normal [facility] ALL THYROXINE (T4) FREEon Free T4 [Mass/Vol] 1.02 ng/dL 0.76 - 1. 46 ng/dL [facility] FREE T3on 05-14-2022 FREE T3 2.54 pg/mlL Normal 2.18-3.98 [facility] Comment on above: Performed By: #### F T3, TSH #### [facility] [address] [address] [address] Hugo Yang FREE T4on 05-14-2022 Free T4 [Mass/Vol] 1.09 ng/dL Normal 0.76-1.46 [facility] Comment on above: Performed By: #### F T4 #### [facility] [address] [address] [address] Hugo Yang TSHon 05-14-2022 TSH 3.015 uIU/mL Normal 0.358-3.740 [facility] Comment on above: Performed By: #### F T3, TSH #### [facility] [address] [place] [address] HEAD WO CONon [...] by: JOEL ANDINO Date: 2022-03-19 10:33 Normal [facility] XR DEXA BONE DENSITYon 03-19 XR DEXA [...] by: JOEL ANDINO Date: 2022-03-19 11:11 Normal [facility] ECHOCARDIO M/2D COMPLETEon 1 02-22-2021 ECHOCARDIO M/2D COMPLETE Patient: LLUVIA MORENO Exam Date: 12/23/2021 : 1940 Gender:F Ordering : SHELDON GOTTLIEB [facility] Admission #: [id number] Family : DR OLE YANG M.D. Order #: [id number] CLICK HERE TO VIEW EXAM ECHOCARDIOGRAM REPORT [...] Lucas M.D. on 12/24/2021 at 15:56 Normal [facility] FREE T3on 11-25-2021 FREE T3 1.97 pg/mlL Critically low 2.18-3.98 [facility] Comment on above: Performed By: #### F T3, TSH #### [facility] [address] [address] [address] Hugo Yang FREE T4on 11-25-2021 Free T4 [Mass/Vol] 1.00 ng/dL Normal 0.76-1.46 [facility] Comment on above: Performed By: #### F T3, TSH #### [facility] [address] [address] [address] Hugo Yang LIVER PROFILEon 11-25-2021 Albumin [Mass/Vol] 3.9 g/dL Normal 3.4-5.0 [facility] Comment on above: Performed By: #### F T3, TSH #### [facility] [address] [address] [address] Hugo Yang Albumin/Globulin [Mass ratio] 1.1 {ratio} Normal [facility] Comment on above: Performed By: #### F T3, TSH #### [facility] [address] [address] [address] Hugo Yang ALP [Catalytic activity/Vol] 94 U/L Normal 46-116 [facility] Comment on above: Performed By: #### F T3, TSH #### [facility] [address] [address] [address] Hugo Yang ALT [Catalytic activity/Vol] 41 U/L Normal 14-59 [facility] Comment on above: Performed By: #### F T3, TSH #### [facility] [address] [address] [address] Hugo Yang AST [Catalytic activity/Vol] 25 U/L Normal 15-37 [facility] Comment on above: Performed By: #### F T3, TSH #### [facility] [address] [address] [address] Hugo Yang BILI, CONJUGATED 0.2 mg/dL Normal 0.0-0.2 [facility] Comment on above: Performed By: #### F T3, TSH #### [facility] [address] [address] [address] Hugo Yang Bilirubin [Mass/Vol] 0.8 mg/dL Normal 0.2-1.0 [facility] Comment on above: Performed By: #### F T3, TSH #### [facility] [address] [address] [address] Hugo Yang Globulin (S) [Mass/Vol] 3.5 g/dL Normal [facility] Comment on above: Performed By: #### F T3, TSH #### [facility] [address] [address] [address] Hugo Yang Protein [Mass/Vol] 7.4 g/dL Normal 6.4-8.2 [facility] Comment on above: Performed By: #### F T3, TSH #### [facility] [address] [address] [address] Hugo Yang TSHon 11-25-2021 TSH 2.892 uIU/mL Normal 0.358-3.740 [facility] Comment on above: Performed By: #### F T3, TSH #### [facility] [address] [place], [place] [address] Dr. Hugo Yang US PIPER DOP LEG [...] by: JOEL ANDINO Date: 2021-09-04 12:18 Normal [facility] Cardiovascular Lab Reporton 08-21-2021 Cardiovascular Lab Report [facility] Patient Name: [facility] MR #: [id number] Physician: Keanu Islas MD Department of Service Date: 08/21/2021 Medicine Birthdate: 1940 Division of Room #: [facility] Adult Cardiovascular Services [address] [place] [address] Cardiovascular Laboratory Report TBIV-UPGRADE PROCEDURE NOTE DATE OF PROCEDURE: 08/21/2021 PERFORMING PHYSICIAN: Dr. Keanu Islas CONSENT: Patient LOCATION: EP Lab PROCEDURE PERFORMED: 1. 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 2. Explantation of previously implanted pacemaker generator ([employer]). 3. RV pacing lead and extraction. [...] was then removed and venogram was performed. Summers catheter was advanced and venogram was performed. This revealed a good posterolateral vein, but other than that, an anterior vein was noted, but no significant other branches were seen. After this, a 0.014 wire was passed through the Summers-Sarah catheter and traversed into the posterolateral vein. However, the wire was short enough and we could not get a good grasp at the end. So, thereafter, the Summers-Sarah catheter was removed and 90-degree inner cannula was used to access the vein. A longer 0.014 wire tracked into the vein. Over this, a [employer] [employer] straight lead was advanced and placed [...] The inner cannulas were split and the Leon sheath was slit and the lead secured [...] content not included)... Normal [facility] SARS-CoV-2 (COVID-19) RNA SONA+probe Ql (Unsp spec) Not detected Normal NOT DETECTED [facility] Comment on above: Result Comment: When diagnostic [...] for this test is supported by the [place] of Health and Human Service's declaration that [...] used). Performed By: #### B MP #### [facility] [address] [place] [address] Dr. Hugo Yang HEMOGRAM AND PLATELon 2021 Hematocrit (Bld) [Volume fraction] 43.7 % Normal 36.0-48.0 [facility] Comment on above: Performed By: #### C BC #### [facility] [address] [place] [address] Dr. Hugo Yang Hemoglobin (Bld) [Mass/Vol] 14.2 g/dL Normal 12.0-16.0 [facility] Comment on above: Performed By: #### C BC #### [facility] [address] [place] [address] Dr. Hugo Yang MCH (RBC) [Entitic mass] 31.0 pg Normal 26.7-34.0 [facility] Comment on above: Performed By: #### C BC #### [facility] [address] [place] [address] Dr. Hugo Yang MCHC (RBC) [Mass/Vol] 32.5 g/dL Normal 29.9-35.2 [facility] Comment on above: Performed By: #### C BC #### [facility] [address] [place] [address] Dr. Hugo Yang MCV (RBC) [Entitic vol] 95.4 fL Normal 81.0-99.0 [facility] Comment on above: Performed By: #### C BC #### [facility] [address] [place] [address] Dr. Hugo Yang PLT 161 103/ul Normal 150-450 [facility] Comment on above: Performed By: #### C BC #### [facility] [address] [place] [address] Dr. Hugo Yang RBC 4.58 106/ul Normal 4.20-5.40 [facility] Comment on above: Performed By: #### C BC #### [facility] [address] [place] [address] Dr. Hugo Yang WBC 6.9 103/ul Normal 4.0-11.0 [facility] Comment on above: Performed By: #### C BC #### [facility] [address] [address] [address] Hugo Yang PROF CHEM 8 (BAS METB)on Anion gap [Moles/Vol] 11.5 mmol/L Normal [facility] Comment on above: Performed By: #### B MP #### [facility] [address] [address] [address] Hugo Yang Calcium [Mass/Vol] 9.6 mg/dL Normal 8.5-10.1 [facility] Comment on above: Performed By: #### B MP #### [facility] [address] [address] [address] Hugo Yang Chloride [Moles/Vol] 104 mmol/L Normal 98-107 [facility] Comment on above: Performed By: #### B MP #### [facility] [address] [address] [address] Hugo Yang CO2 [Moles/Vol] 30.6 mmol/L Normal 21.0-32.0 [facility] Comment on above: Performed By: #### B MP #### [facility] [address] [address] [address] Hugo Yang Creatinine [Mass/Vol] 1.24 mg/dL Critically high 0.55-1.02 [facility] Comment on above: Performed By: #### B MP #### [facility] [address] [address] [address] Hugo Yang EGFR-AF [place] 51 mL/min/1.73m2 Critically low >=60 [facility] Comment on above: Performed By: #### B MP #### [facility] [address] [address] [address] Hugo Yang EGFR-NON AF CITIZEN [place] 42 mL/min/1.73m2 Critically low >=60 [facility] Comment on above: Performed By: #### B MP #### [facility] [address] [address] [address] Hugo Yang Glucose [Mass/Vol] 111 mg/dL Critically high 74-106 [facility] Comment on above: Performed By: #### B MP #### [facility] [address] [address] [address] Hugo Yang Potassium [Moles/Vol] 5.1 mmol/L Normal 3.5-5.1 [facility] Comment on above: Performed By: #### B MP #### [facility] [address] [place] [address] Dr. Hugo Yang Sodium [Moles/Vol] 141 mmol/L Normal 136-145 [facility] Comment on above: Performed By: #### B MP #### [facility] [address] [place] [address] Dr. Hugo Yang Urea nitrogen [Mass/Vol] 31.0 mg/dL Critically high 7.0-18.0 [facility] Comment on above: Performed By: #### B MP #### [facility] [address] [place] [address] Dr. Hugo Yang Urea nitrogen/Creatinin e [Mass ratio] 25.0 mg/mg Normal [facility] Comment on above: Performed By: #### B MP #### [facility] [address] [place] [address] Dr. Hugo Yang BNPon 07-30-2021 Natriuretic peptide B (Bld) [Mass/Vol] 1994.0 pg/mL Critically high <=1,800.0 [facility] Comment on above: Performed By: #### C BC #### [facility] [address] [place] [address] Dr. Hugo Yang PROF CHEM 8 (BAS METB)on Anion gap [Moles/Vol] 11.3 mmol/L Normal [facility] Comment on above: Performed By: #### C BC #### [facility] [address] [place] [address] Dr. Hugo Yang Calcium [Mass/Vol] 9.7 mg/dL Normal 8.5-10.1 [facility] Comment on above: Performed By: #### C BC #### [facility] [address] [place] [address] Dr. Hugo Yang Chloride [Moles/Vol] 104 mmol/L Normal 98-107 [facility] Comment on above: Performed By: #### C BC #### [facility] [address] [address] [address] Hugo Yang CO2 [Moles/Vol] 29.6 mmol/L Normal 21.0-32.0 [facility] Comment on above: Performed By: #### C BC #### [facility] [address] [address] [address] Hugo Yang Creatinine [Mass/Vol] 1.28 mg/dL Critically high 0.55-1.02 [facility] Comment on above: Performed By: #### C BC #### [facility] [address] [place] [address] Dr. Hugo Yang EGFR-AF [place]IZ[place] 49 mL/min/1.73m2 Critically low >=60 [facility] Comment on above: Performed By: #### C BC #### [facility] [address] [place] [address] Dr. Hugo Yang EGFR-NON AF [place]IZ[place] 40 mL/min/1.73m2 Critically low >=60 [facility] Comment on above: Performed By: #### C BC #### [facility] [address] [place] [address] Dr. Hugo Yang Glucose [Mass/Vol] 119 mg/dL Critically high 74-106 [facility] Comment on above: Performed By: #### C BC #### [facility] [address] [place] [address] Dr. Hugo Yang Potassium [Moles/Vol] 4.9 mmol/L Normal 3.5-5.1 [facility] Comment on above: Performed By: #### C BC #### [facility] [address] [address] [address] Hugo Yang Sodium [Moles/Vol] 140 mmol/L Normal 136-145 [facility] Comment on above: Performed By: #### C BC #### [facility] [address] [address] [address] Hugo Yang Urea nitrogen [Mass/Vol] 30.0 mg/dL Critically high 7.0-18.0 [facility] Comment on above: Performed By: #### C BC #### [facility] [address] [place] [address] Dr. Hugo Yang Urea nitrogen/Creatinin e [Mass ratio] 23.4 mg/mg Normal [facility] Comment on above: Performed By: #### C BC #### [facility] [address] [place] [address] Dr. Hugo Yang FREE T3on 06-28-2021 FREE T3 2.64 pg/mlL Normal 2.18-3.98 [facility] Comment on above: Performed By: #### F T3, TSH #### [facility] [address] [place] [address] Dr. Hugo Yang FREE T4on 06-28-2021 Free T4 [Mass/Vol] 1.19 ng/dL Normal 0.76-1.46 [facility] Comment on above: Performed By: #### B MP #### [facility] [address] [place] [address] Dr. Hugo Yang LIVER PROFILEon 06-28-2021 Albumin [Mass/Vol] 3.8 g/dL Normal 3.4-5.0 [facility] Comment on above: Performed By: #### F T3, TSH #### [facility] [address] [place] [address] Dr. Hugo Yang Albumin/Globulin [Mass ratio] 1.2 {ratio} Normal [facility] Comment on above: Performed By: #### F T3, TSH #### [facility] [address] [place] [address] Dr. Hugo Yang ALP [Catalytic activity/Vol] 88 U/L Normal 46-116 [facility] Comment on above: Performed By: #### F T3, TSH #### [facility] [address] [place] [address] Dr. Hugo Yang ALT [Catalytic activity/Vol] 54 U/L Normal 14-59 [facility] Comment on above: Performed By: #### F T3, TSH #### [facility] [address] [place] [address] Dr. Hugo Yang AST [Catalytic activity/Vol] 36 U/L Normal 15-37 [facility] Comment on above: Performed By: #### F T3, TSH #### [facility] [address] [address] [address] Hugo Yang BILI, CONJUGATED 0.3 mg/dL Critically high 0.0-0.2 [facility] Comment on above: Performed By: #### F T3, TSH #### [facility] [address] [address] [address] Hugo Yang Bilirubin [Mass/Vol] 0.9 mg/dL Normal 0.2-1.0 [facility] Comment on above: Performed By: #### F T3, TSH #### [facility] [address] [place] [address] Dr. Hugo Yang Globulin (S) [Mass/Vol] 3.3 g/dL Normal [facility] Comment on above: Performed By: #### F T3, TSH #### [facility] [address] [place] [address] Dr. Hugo Yang Protein [Mass/Vol] 7.1 g/dL Normal 6.4-8.2 [facility] Comment on above: Performed By: #### F T3, TSH #### [facility] [address] [place] [address] Dr. Hugo Yang PROF CHEM 8 (BAS METB)on Anion gap [Moles/Vol] 13.6 mmol/L Normal [facility] Comment on above: Performed By: #### B MP #### [facility] [address] [place] [address] Dr. Hugo Yang Calcium [Mass/Vol] 9.5 mg/dL Normal 8.5-10.1 [facility] Comment on above: Performed By: #### B MP #### [facility] [address] [place] [address] Dr. Hugo Yang Chloride [Moles/Vol] 105 mmol/L Normal 98-107 [facility] Comment on above: Performed By: #### B MP #### [facility] [address] [address] [address] Hugo Yang CO2 [Moles/Vol] 28.5 mmol/L Normal 21.0-32.0 [facility] Comment on above: Performed By: #### B MP #### [facility] [address] [address] [address] Hugo Yang Creatinine [Mass/Vol] 1.05 mg/dL Critically high 0.55-1.02 [facility] Comment on above: Performed By: #### B MP #### [facility] [address] [address] [address] Hugo Yang EGFR-AF [place] >60 Normal >=60 [facility] Comment on above: Performed By: #### B MP #### [facility] [address] [address] [address] Hugo Yang EGFR-NON AF [place]IZ[place] 51 mL/min/1.73m2 Critically low >=60 [facility] Comment on above: Performed By: #### B MP #### [facility] [address] [address] [address] Hugo Yang Glucose [Mass/Vol] 113 mg/dL Critically high 74-106 [facility] Comment on above: Performed By: #### B MP #### [facility] [address] [address] [address] Hugo Yang Potassium [Moles/Vol] 5.1 mmol/L Normal 3.5-5.1 [facility] Comment on above: Performed By: #### B MP #### [facility] [address] [place] [address] [address] Hugo Yang Sodium [Moles/Vol] 142 mmol/L Normal 136-145 [facility] Comment on above: Performed By: #### B MP #### [facility] [address] [place] [address] [address] Hugo Yang Urea nitrogen [Mass/Vol] 29.0 mg/dL Critically high 7.0-18.0 [facility] Comment on above: Performed By: #### B MP #### [facility] [address] [address] [address] Hugo Yang Urea nitrogen/Creatinin e [Mass ratio] 27.6 mg/mg Normal [facility] Comment on above: Performed By: #### B MP #### [facility] [address] [address] [address] Hugo Yang TSHon 06-28-2021 TSH 3.067 uIU/mL Normal 0.358-3.740 [facility] Comment on above: Performed By: #### F T3, TSH #### [facility] [address] [place] [address] [address] Hugo Yang TSH RANGE SEE BELOW Normal [facility] Comment on above: Result Comment: <0.3 4 UIU/ml HYPERTHYROID 0.34-5.60 UIU/ml EUTHYROID >5.60 UIU/ml HYPOTHYROID Performed By: #### F T3, TSH #### [facility] [address] [address] [address] Hugo Yang Cardiovascular Lab Reporton 06-21-2021 Cardiovascular Lab Report [facility] Patient Name: [facility] MR #: [id number] Physician: Elizabeth Tejeda, Department of M.D. Medicine Service Date: 06/20/2021 Division of Birthdate: 1940 Cardiology Room #: [facility] Cardiovascular Services [place] [address] Cardiovascular Laboratory Report FINAL IMPRESSIONS: 1. 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 2. Otherwise nonobstructive coronary arteries angiographically. 3. Moderately reduced global left ventricular systolic function by noninvasive imaging. 4. Normal right-sided heart pressures and wedge pressure. 5. Seha-wn-phujiysi systemic hypertension. 6. Mildly reduced cardiac output/cardiac [...] bilateral selective coronary angiography, placement of a 6-[employer] MynxGrip closure device. METHODS: After risks, benefits, [...] femoral vein and artery was obtained. A 6-British 11 cm sheath was placed in each. [...] the procedure. All catheters were removed. A 6-[employer] MynxGrip closure device was deployed per protocol achieving optimal hemostasis over the arterial access site. The venous sheath was removed with application of manual pressure to achieve optimal hemostasis. Overall, the patient tolerated the procedure well. There were no overt complications. She was to be transferred to the [facility] area in stable condition. FINDINGS: Hemodynamics: [...] content not included)... Normal [facility] BNPon 06-18-2021 Natriuretic peptide B (Bld) [Mass/Vol] 3442.0 pg/mL Critically high <=1,800.0 [facility] Comment on above: Result Comment: TEST REPEATED CRITICAL VALUE VERIFIED Performed By: #### L IPID, BNP, CMP #### [facility] [address] [place] [address] Dr. Hugo Yang CBC AUTO DIFFon 06-18-2021 BASO # 0.1 103/ul Normal 0.0-0.1 [facility] Comment on above: Performed By: #### C BC #### [facility] [address] [place] [address] [address] Hugo Yang Basophils/100 WBC (Bld) 0.5 % Normal 0.2-2.0 [facility] Comment on above: Performed By: #### C BC #### [facility] [address] [place] [address] Dr. Hugo Yang EO # 0.3 103/ul Normal 0.0-0.7 [facility] Comment on above: Performed By: #### C BC #### [facility] [address] [place] [address] Dr. Hugo Yang Eosinophils/100 WBC (Bld) 2.3 % Normal 0.9-7.0 [facility] Comment on above: Performed By: #### C BC #### [facility] [address] [place] [address] Dr. Hugo Yang Erythrocyte distribution width (RBC) [Ratio] 14.5 % Normal 11.0-15.0 [facility] Comment on above: Performed By: #### C BC #### [facility] [address] [place] [address] Dr. Hugo Yang Hematocrit (Bld) [Volume fraction] 42.3 % Normal 36.0-48.0 [facility] Comment on above: Performed By: #### C BC #### [facility] [address] [place] [address] Dr. Hugo Yang Hemoglobin (Bld) [Mass/Vol] 13.5 g/dL Normal 12.0-16.0 [facility] Comment on above: Performed By: #### C BC #### [facility] [address] [place] [address] Dr. Hugo Yang IG # 0.05 10e3/ul Critically high 0.00-0.03 [facility] Comment on above: Performed By: #### C BC #### [facility] [address] [place] [address] Dr. Hugo Yang IG % 0.4 % Normal 0.0-0.5 [facility] Comment on above: Performed By: #### C BC #### [facility] [address] [place] [address] Dr. Hugo Yang LYMPH # 1.5 103/ul Normal 1.2-3.8 [facility] Comment on above: Performed By: #### C BC #### [facility] [address] [place] [address] Dr. Hugo Yang Lymphocytes/100 WBC (Bld) 12.9 % Critically low 20.5-60.0 [facility] Comment on above: Performed By: #### C BC #### [facility] [address] [place] [address] Dr. Hugo Yang MANUAL DIFF REQ NO Normal [facility] Comment on above: Performed By: #### C BC #### [facility] [address] [place] [address] Dr. Hugo Yang MCH (RBC) [Entitic mass] 30.4 pg Normal 26.7-34.0 [facility] Comment on above: Performed By: #### C BC #### [facility] [address] [place] [address] Dr. Hugo Yang MCHC (RBC) [Mass/Vol] 31.9 g/dL Normal 29.9-35.2 [facility] Comment on above: Performed By: #### C BC #### [facility] [address] [place] [address] Dr. Hugo Yang MCV (RBC) [Entitic vol] 95.3 fL Normal 81.0-99.0 [facility] Comment on above: Performed By: #### C BC #### [facility] [address] [place] [address] Dr. Hugo Yang MONO # 0.7 103/ul Normal 0.3-0.8 [facility] Comment on above: Performed By: #### C BC #### [facility] [address] [place] [address] Dr. Hugo Yang Monocytes/100 WBC (Bld) 6.2 % Normal 1.7-12.0 [facility] Comment on above: Performed By: #### C BC #### [facility] [address] [place] [address] Dr. Hugo Yang NEUT # 8.8 103/ul Critically high 1.4-6.5 [facility] Comment on above: Performed By: #### C BC #### [facility] [address] [place] [address] Dr. Hugo Yang Neutrophils/100 WBC (Bld) 77.7 % Critically high 43.0-75.0 [facility] Comment on above: Performed By: #### C BC #### [facility] [address] [place] [address] Dr. Hugo Yang Platelet mean volume (Bld) [Entitic vol] 10.4 fL Normal 9.5-13.5 [facility] Comment on above: Performed By: #### C BC #### [facility] [address] [place] [address] Dr. Hugo Yang PLT 199 103/ul Normal 150-450 [facility] Comment on above: Performed By: #### C BC #### [facility] [address] [place] [address] Dr. Hugo Yang RBC 4.44 106/ul Normal 4.20-5.40 [facility] Comment on above: Performed By: #### C BC #### [facility] [address] [place] [address] Dr. Hugo Yang WBC 11.3 103/ul Critically high 4.0-11.0 [facility] Comment on above: Performed By: #### C BC #### [facility] [address] [place] [address] Dr. Hugo Yang [facility]on SARS-CoV-2 (COVID-19) RNA SONA+probe Ql (Unsp spec) Not detected Normal NOT DETECTED [facility] Comment on above: Result Comment: This test is not yet approved or cleared by the [place] FDA. When there are no FDA-approved or cleared tests available, and other criteria are met, FDA can make tests available under an emergency access mechanism called an Emergency Use Authorization (EUA). The EUA for this test is supported by the [place] of Health and Human Service's (HHS's) declaration [...] Performed By: #### F T3, TSH #### [facility] [address] [address] [address] Hugo Yang LIPID PROFILEon 06-18-2021 CHOL-HDL RATIO NORM SEE BELOW Normal [facility] Comment on above: Result Comment: 3.3 - 4.4 LOW RISK 4.4 - 7.1 AVERAGE RISK 7.1 - 11.0 MODERATE RISK >11.0 HIGH RISK Performed By: #### L IPID, BNP, CMP #### [facility] [address] [place] [address] Dr. Hugo Yang Cholesterol [Mass/Vol] 127 mg/dL Normal <=200 [facility] Comment on above: Performed By: #### L IPID, BNP, CMP #### [facility] [address] [place] [address] Dr. Hugo Yang Cholesterol in HDL [Mass/Vol] 60 mg/dL Normal 40-60 [facility] Comment on above: Performed By: #### L IPID, BNP, CMP #### [facility] [address] [place] [address] Dr. Hugo Yang Cholesterol in LDL [Mass/Vol] 47.4 mg/dL Normal [facility] Comment on above: Performed By: #### L IPID, BNP, CMP #### [facility] [address] [place] [address] Dr. Hugo Yang Cholesterol.total/ Cholesterol in HDL [Mass ratio] 2.1 {ratio} Normal [facility] Comment on above: Performed By: #### L IPID, BNP, CMP #### [facility] [address] [place] [address] Dr. Hugo Yang HDL NORMAL > or = 60 mg/dl - LO W CARDIOVASCULAR RISK <40 mg/dl - HIGH CARDIOVASCULAR RISK Normal [facility] Comment on above: Performed By: #### L IPID, BNP, CMP #### [facility] [address] [address] [address] Hugo Yang LDL CALC NORMAL SEE BELOW Normal [facility] Comment on above: Result Comment: <100 mg/dl OPTIMAL 100 - 129 mg/dl NEAR OR ABOVE OPTIMAL 130 - 159 mg/dl BORDERLINE HIGH 160 - 189 mg/dl HIGH >190 mg/dl VERY HIGH Performed By: #### L IPID, BNP, CMP #### [facility] [address] [address] [address] Hugo Yang Triglyceride [Mass/Vol] 98 mg/dL Normal <=150 [facility] Comment on above: Performed By: #### L IPID, BNP, CMP #### [facility] [address] [place] [address] Dr. Hugo Yang VLDL CALC 19.6 mg/dL Normal [facility] Comment on above: Performed By: #### L IPID, BNP, CMP #### [facility] [address] [place] [address] Dr. Hugo Yang PROF 14(COMP METB)on 022 Albumin [Mass/Vol] 4.0 g/dL Normal 3.4-5.0 [facility] Comment on above: Performed By: #### L IPID, BNP, CMP #### [facility] [address] [place] [address] Dr. Hugo Yang Albumin/Globulin [Mass ratio] 1.3 {ratio} Normal [facility] Comment on above: Performed By: #### L IPID, BNP, CMP #### [facility] [address] [place] [address] Dr. Hugo Yang ALP [Catalytic activity/Vol] 82 U/L Normal 46-116 [facility] Comment on above: Performed By: #### L IPID, BNP, CMP #### [facility] [address] [place] [address] Dr. Hugo Yang ALT [Catalytic activity/Vol] 52 U/L Normal 14-59 [facility] Comment on above: Performed By: #### L IPID, BNP, CMP #### [facility] [address] [place] [address] Dr. Hugo Yang Anion gap [Moles/Vol] 12.9 mmol/L Normal [facility] Comment on above: Performed By: #### L IPID, BNP, CMP #### [facility] [address] [address] [address] Hugo Yang AST [Catalytic activity/Vol] 40 U/L Critically high 15-37 [facility] Comment on above: Performed By: #### L IPID, BNP, CMP #### [facility] [address] [address] [address] Hugo Yang Bilirubin [Mass/Vol] 1.7 mg/dL Critically high 0.2-1.0 [facility] Comment on above: Performed By: #### L IPID, BNP, CMP #### [facility] [address] [place] [address] Dr. Hugo Yang Calcium [Mass/Vol] 9.2 mg/dL Normal 8.5-10.1 [facility] Comment on above: Performed By: #### L IPID, BNP, CMP #### [facility] [address] [place] [address] Dr. Hugo Yang Chloride [Moles/Vol] 103 mmol/L Normal 98-107 [facility] Comment on above: Performed By: #### L IPID, BNP, CMP #### [facility] [address] [place] [address] Dr. Hugo Yang CO2 [Moles/Vol] 28.9 mmol/L Normal 21.0-32.0 [facility] Comment on above: Performed By: #### L IPID, BNP, CMP #### [facility] [address] [place] [address] Dr. Hugo Yang Creatinine [Mass/Vol] 1.12 mg/dL Critically high 0.55-1.02 [facility] Comment on above: Performed By: #### L IPID, BNP, CMP #### [facility] [address] [place] [address] Dr. Hugo Yang EGFR-AF [place]IZ[place] 57 mL/min/1.73m2 Critically low >=60 [facility] Comment on above: Performed By: #### L IPID, BNP, CMP #### [facility] [address] [address] [address] Hugo Yang EGFR-NON AF [place]IZ[place] 47 mL/min/1.73m2 Critically low >=60 [facility] Comment on above: Performed By: #### L IPID, BNP, CMP #### [facility] [address] [address] [address] Hugo Yang Globulin (S) [Mass/Vol] 3.1 g/dL Normal [facility] Comment on above: Performed By: #### L IPID, BNP, CMP #### [facility] [address] [place] [address] Dr. Hugo Yang Glucose [Mass/Vol] 128 mg/dL Critically high 74-106 [facility] Comment on above: Performed By: #### L IPID, BNP, CMP #### [facility] [address] [place] [address] Dr. Hugo Yang Potassium [Moles/Vol] 4.8 mmol/L Normal 3.5-5.1 [facility] Comment on above: Performed By: #### L IPID, BNP, CMP #### [facility] [address] [place] [address] Dr. Hugo Yang Protein [Mass/Vol] 7.1 g/dL Normal 6.1-8.2 [facility] Comment on above: Performed By: #### L IPID, BNP, CMP #### [facility] [address] [place] [address] Dr. Hugo Yang Sodium [Moles/Vol] 140 mmol/L Normal 136-145 [facility] Comment on above: Performed By: #### L IPID, BNP, CMP #### [facility] [address] [place] [address] Dr. Hugo Yang Urea nitrogen [Mass/Vol] 23.0 mg/dL Critically high 7.0-18.0 [facility] Comment on above: Performed By: #### L IPID, BNP, CMP #### [facility] [address] [place] [address] Dr. Hugo Yang Urea nitrogen/Creatinin e [Mass ratio] 20.5 mg/mg Normal [facility] Comment on above: Performed By: #### L IPID, BNP, CMP #### [facility] [address] [address] [address] Hugo Yang ECHOCARDIO M/2D COMPLETEon 0 06-12-2021 ECHOCARDIO M/2D COMPLETE Patient: LLUVIA MORENO Exam Date: 06/12/2021 : 1940 Gender:F Ordering : SHELDON GOTTLIEB Admission #: [id number] Family : DR OLE YANG M.D. Order #: [id number] CLICK HERE TO VIEW EXAM ECHOCARDIOGRAM REPORT [...] Area(A4C): 31.00 cm2 Left Atrium Systolic Volume(A2C): 815426 mm3 Left Atrium Systolic Volume(A4C): 437561 mm3 Mitral Valve MV E to A [...] M.D. on 06/12/2021 at 16:27 Normal [facility] CBC AUTO DIFFon 06-04-2021 BASO # 0.0 103/ul Normal 0.0-0.1 [facility] Comment on above: Performed By: #### C #### [facility] [address] [place] [address] Dr. Hugo Yang Basophils/100 WBC (Bld) 0.6 % Normal 0.2-2.0 [facility] Comment on above: Performed By: #### C BC #### [facility] [address] [place] [address] Dr. Hugo Yang EO # 0.2 103/ul Normal 0.0-0.7 [facility] Comment on above: Performed By: #### C BC #### [facility] [address] [place] [address] Dr. Hugo Yang Eosinophils/100 WBC (Bld) 3.0 % Normal 0.9-7.0 [facility] Comment on above: Performed By: #### C BC #### [facility] [address] [place] [address] Dr. Hugo Yang Erythrocyte distribution width (RBC) [Ratio] 13.7 % Normal 11.0-15.0 [facility] Comment on above: Performed By: #### C BC #### [facility] [address] [place] [address] Dr. Hugo Yang Hematocrit (Bld) [Volume fraction] 42.1 % Normal 36.0-48.0 [facility] Comment on above: Performed By: #### C BC #### [facility] [address] [place] [address] Dr. Hugo Yang Hemoglobin (Bld) [Mass/Vol] 13.3 g/dL Normal 12.0-16.0 [facility] Comment on above: Performed By: #### C BC #### [facility] [address] [place] [address] Dr. Hugo Yang IG # 0.02 10e3/ul Normal 0.00-0.03 [facility] Comment on above: Performed By: #### C BC #### [facility] [address] [place] [address] Dr. Hugo Yang IG % 0.3 % Normal 0.0-0.5 [facility] Comment on above: Performed By: #### C BC #### [facility] [address] [address] [address] Hugo Yang LYMPH # 1.9 103/ul Normal 1.2-3.8 [facility] Comment on above: Performed By: #### C BC #### [facility] [address] [place] [address] Dr. Hugo Yang Lymphocytes/100 WBC (Bld) 29.2 % Normal 20.5-60.0 [facility] Comment on above: Performed By: #### C BC #### [facility] [address] [place] [address] Dr. Hugo Yang MANUAL DIFF REQ NO Normal [facility] Comment on above: Performed By: #### C BC #### [facility] [address] [place] [address] Dr. Hugo Yang MCH (RBC) [Entitic mass] 30.4 pg Normal 26.7-34.0 [facility] Comment on above: Performed By: #### C BC #### [facility] [address] [place] [address] Dr. Hugo Yang MCHC (RBC) [Mass/Vol] 31.6 g/dL Normal 29.9-35.2 [facility] Comment on above: Performed By: #### C BC #### [facility] [address] [place] [address] Dr. Hugo Yang MCV (RBC) [Entitic vol] 96.3 fL Normal 81.0-99.0 [facility] Comment on above: Performed By: #### C BC #### [facility] [address] [place] [address] Dr. Hugo Yang MONO # 0.6 103/ul Normal 0.3-0.8 [facility] Comment on above: Performed By: #### C BC #### [facility] [address] [place] [address] Dr. Hugo Yang Monocytes/100 WBC (Bld) 8.5 % Normal 1.7-12.0 [facility] Comment on above: Performed By: #### C BC #### [facility] [address] [place] [address] Dr. Hugo Yang NEUT # 3.8 103/ul Normal 1.4-6.5 [facility] Comment on above: Performed By: #### C BC #### [facility] [address] [address] [address] Hugo Yang Neutrophils/100 WBC (Bld) 58.4 % Normal 43.0-75.0 [facility] Comment on above: Performed By: #### C BC #### [facility] [address] [address] [address] Hugo Yang Platelet mean volume (Bld) [Entitic vol] 10.9 fL Normal 9.5-13.5 [facility] Comment on above: Performed By: #### C BC #### [facility] [address] [place] [address] Dr. Hugo Yang PLT 163 103/ul Normal 150-450 [facility] Comment on above: Performed By: #### C BC #### [facility] [address] [place] [address] Dr. Hugo Yang RBC 4.37 106/ul Normal 4.20-5.40 [facility] Comment on above: Performed By: #### C BC #### [facility] [address] [place] [address] Dr. Hugo Yang WBC 6.6 103/ul Normal 4.0-11.0 [facility] Comment on above: Performed By: #### C BC #### [facility] [address] [place] [address] Dr. Hugo Yang PROF CHEM 8 (BAS METB)on Anion gap [Moles/Vol] 13.9 mmol/L Normal [facility] Comment on above: Performed By: #### F T3, TSH #### [facility] [address] [place] [address] Dr. Hugo Yang Calcium [Mass/Vol] 9.5 mg/dL Normal 8.5-10.1 [facility] Comment on above: Performed By: #### F T3, TSH #### [facility] [address] [place] [address] Dr. Hugo Yang Chloride [Moles/Vol] 105 mmol/L Normal 98-107 [facility] Comment on above: Performed By: #### F T3, TSH #### [facility] [address] [address] [address] Hugo Yang CO2 [Moles/Vol] 27.7 mmol/L Normal 22.0-30.0 [facility] Comment on above: Performed By: #### F T3, TSH #### [facility] [address] [address] [address] Hugo Yang Creatinine [Mass/Vol] 1.19 mg/dL Critically high 0.52-1.04 [facility] Comment on above: Performed By: #### F T3, TSH #### [facility] [address] [place] [address] Dr. Hugo Yang EGFR-AF [place] 53 mL/min/1.73m2 Critically low >=60 [facility] Comment on above: Performed By: #### F T3, TSH #### [facility] [address] [place] [address] Dr. Hugo Yang EGFR-NON AF [place]IZ[place] 44 mL/min/1.73m2 Critically low >=60 [facility] Comment on above: Performed By: #### F T3, TSH #### [facility] [address] [place] [address] Dr. Hugo Yang Glucose [Mass/Vol] 112 mg/dL Critically high 74-106 [facility] Comment on above: Performed By: #### F T3, TSH #### [facility] [address] [place] [address] Dr. Hugo Yang Potassium [Moles/Vol] 4.6 mmol/L Normal 3.4-5.0 [facility] Comment on above: Performed By: #### F T3, TSH #### [facility] [address] [place] [address] Dr. Hugo Yang Sodium [Moles/Vol] 142 mmol/L Normal 137-145 [facility] Comment on above: Performed By: #### F T3, TSH #### [facility] [address] [place], [place] [address] Dr. Hugo Yang Urea nitrogen [Mass/Vol] 28.0 mg/dL Critically high 7.0-18.0 [facility] Comment on above: Performed By: #### F T3, TSH #### [facility] [address] [place], [place] [address] Dr. Hugo Yang Urea nitrogen/Creatinin e [Mass ratio] 23.5 mg/mg Normal [facility] Comment on above: Performed By: #### F T3, TSH #### [facility] [address] [address] [address] Hugo Yang TROPONIN, HIGH SENSITIVITYon 06-04-2021 HSTROP 27.1 pg/mL Normal 4.0-35.5 [facility] Comment on above: Result Comment: CUT- OFF POINTS HAVE BEEN ESTABLISHED BASED ON THE FOURTH UNIVERSAL DEFINITIONS OF MYOCARDIAL INFARCTION. THE UPPER REFERENCE LIMIT (URL) OF TROPONIN, DEFINED THE 99TH PERCENTILE OF cTnI DISTRIBUTION IN A REFERENCE POPULATION, HAS BEEN CONFIRMED THE DECISION THRESHOLD FOR VT DIAGNOSIS. Performed By: #### F T3, TSH #### [facility] [address] [address] [address] Hugo Yang XR CHEST 1 Von [...] JOEL ANDINO Date: 2021-06-04 11:09 Normal [facility] Cardiovascular Lab Reporton 12-28-2020 Cardiovascular Lab Report [facility] Patient Name: [facility] MR #: [id number] Physician: Keanu Islas MD Department of Service Date: 12/28/2020 Medicine Birthdate: 1940 Division of Room #: [facility] [address] [place] [address] Cardiovascular Laboratory Report AV NODE ABLATION PROCEDURE [...] prepped and draped. Under ultrasound guidance, an 8-British venous access was procured, and a short [...] Islas MD Date Trans: 12/28/2020 04:43 P/donna [id number] cc: Ole Yang M.D. [address] [place] [address] [facility] Cardiovascular Lab Reporton 11-19-2020 Cardiovascular Lab Report [facility] Patient Name: [facility] MR #: [id number] Physician: Keanu Islas MD Department of Service Date: 11/19/2020 Medicine Birthdate: 1940 Division of Room #: [facility] Adult Cardiovascular Services [place] [address] Cardiovascular Laboratory Report PACEMAKER IMPLANT PROCEDURE NOTE DATE OF PROCEDURE: 11/19/20 PERFORMING PHYSICIAN: Dr. Keanu Islas CONSENT: Patient LOCATION: EP Lab PROCEDURE PERFORMED: 1. Implantation of pacemaker ([employer]) 2. Ultrasound guided venous access INDICATIONS: [...] using modified seldinger technique using a 5 British micro-puncture needle on one occasion and 0.35 wire was placed. Local infiltration of 1% Lidocaine was performed, and an incision was created in the left upper chest. Dissection was then performed using cautery down to the fascial plane above the muscle. A small pocket was created for the device. 8 British Safesheath was placed over the wire. Then a His sheath was advanced over a glide wire into the right ventricle. The wire and dilator was then removed. An active fixation [employer] pacing lead was then delivered through the His sheath to the right ventricle. I identified an area where pacing revealed a QRS of 120ms in unipolar configuration. After confirmation of lead position on orthogonal views (PATEL and TAMAZIGHT) to confirm septal position, the screw was [...] immediate procedural complications were noted. Device info: NCR [employer] Accolade MRI EL SR IS1 Model# L310 Serial# [id number] RV lead: Model# [id number] (59cms) Serial# [id number] Sensin.3mV Threshold: 0.6V@0.4ms Impedance: 655 Ohms POST [...] content not included)... Normal [facility] Vital Signs Date Time Vital Sign Value Performing Clinician Facility 10-13-2024 09:39-0400 Body height 170.2 cm Kenneth Clifton DPM Work Phone: [facility] 10-13-2024 09:39-0400 Body mass index (BMI) [Ratio] 26.94 kg/m2 Kenneth Clifton DPM Work Phone: [facility] 10-13-2024 09:39-0400 Body weight 78.02 kg Kenneth Clifton DPM Work Phone: [facility] 10-13-2024 09:39-0400 Respiratory rate 18 /min Kenneth Clifton DPM Work Phone: [facility] 09-14-2024 09:59-0400 Body height 167.6 cm Ole Yang MD Work Phone: [facility] 09-14-2024 09:59-0400 Body mass index (BMI) [Ratio] 27.92 kg/m2 Ole Yang MD Work Phone: [facility] 09-14-2024 09:59-0400 Body weight 78.47 kg Ole Yang MD Work Phone: [facility] 09-14-2024 09:59-0400 Diastolic blood pressure 64 mm[Hg] Ole Yang MD Work Phone: [facility] 09-14-2024 09:59-0400 Heart rate 70 /min Ole Yang MD Work Phone: [facility] 09-14-2024 09:59-0400 SaO2% (BldA) [Mass fraction] 98 % Ole Yang MD Work Phone: [facility] 09-14-2024 09:59-0400 Systolic blood pressure 126 mm[Hg] Ole Yang MD Work Phone: [facility] 08-15-2024 14:30-0400 Body height 167.6 cm Ole Yang MD Work Phone: [facility] 08-15-2024 14:30-0400 Body mass index (BMI) [Ratio] 27.76 kg/m2 Ole Yang MD Work Phone: [facility] 08-15-2024 14:30-0400 Body weight 78.02 kg Ole Yang MD Work Phone: [facility] 08-15-2024 14:30-0400 Diastolic blood pressure 78 mm[Hg] Ole Yang MD Work Phone: [facility] 08-15-2024 14:30-0400 Heart rate 70 /min Ole Yang MD Work Phone: [facility] 08-15-2024 14:30-0400 Respiratory rate 17 /min Ole Yang MD Work Phone: [facility] 08-15-2024 14:30-0400 SaO2% (BldA) [Mass fraction] 99 % Ole Yang MD Work Phone: [facility] 08-15-2024 14:30-0400 Systolic blood pressure 120 mm[Hg] Ole Yang MD Work Phone: [facility] 06-02-2024 09:47-0400 Body height 167.6 cm Dipti Hemmer PA Work Phone: [facility] 06-02-2024 09:47-0400 Body mass index (BMI) [Ratio] 28.47 kg/m2 Dipti Hemmer PA Work Phone: [facility] 06-02-2024 09:47-0400 Body temperature 99.19 [degF] Dipti Hemmer PA Work Phone: [facility] 06-02-2024 09:47-0400 Body weight 80.02 kg Dipti Hemmer PA Work Phone: [facility] 06-02-2024 09:47-0400 Diastolic blood pressure 64 mm[Hg] Dipti Hemmer PA Work Phone: [facility] 06-02-2024 09:47-0400 Heart rate 70 /min Dipti Hemmer PA Work Phone: [facility] 06-02-2024 09:47-0400 Respiratory rate 16 /min Dipti Hemmer PA Work Phone: [facility] 06-02-2024 09:47-0400 SaO2% (BldA) [Mass fraction] 99 % Dipti Hemmer PA Work Phone: [facility] 06-02-2024 09:47-0400 Systolic blood pressure 102 mm[Hg] Dipti Hemmer PA Work Phone: [facility] 06-01-2024 10:07-0400 Body height 170.2 cm Teri Martinez MD Work Phone: [facility] 06-01-2024 10:07-0400 Body mass index (BMI) [Ratio] 27.88 kg/m2 Teri Martinez MD Work Phone: [facility] 06-01-2024 10:07-0400 Body weight 80.74 kg Teri Martinez MD Work Phone: [facility] 06-01-2024 10:07-0400 Diastolic blood pressure 82 mm[Hg] Teri Martinez MD Work Phone: [facility] 06-01-2024 10:07-0400 Heart rate 70 /min Teri Martinez MD Work Phone: [facility] [facility] 06-01-2024 10:07-0400 Respiratory rate 16 /min Teri Martinez MD Work Phone: [facility] 06-01-2024 10:07-0400 SaO2% (BldA) [Mass fraction] 89 % Teri Martinez MD Work Phone: [facility] 06-01-2024 10:07-0400 Systolic blood pressure 142 mm[Hg] Teri Martinez MD Work Phone: [facility] 03-30-2024 09:57-0500 Body height 167.6 cm Ole Yang MD Work Phone: [facility] 03-30-2024 09:57-0500 Body mass index (BMI) [Ratio] 28.25 kg/m2 Ole Yang MD Work Phone: [facility] 03-30-2024 09:57-0500 Body weight 79.38 kg Ole Yang MD Work Phone: [facility] 03-30-2024 09:57-0500 Diastolic blood pressure 78 mm[Hg] Ole Yang MD Work Phone: [facility] 03-30-2024 09:57-0500 Heart rate 69 /min Ole Yang MD Work Phone: [facility] 03-30-2024 09:57-0500 SaO2% (BldA) [Mass fraction] 98 % Ole Yang MD Work Phone: [facility] 03-30-2024 09:57-0500 Systolic blood pressure 128 mm[Hg] Ole Yang MD Work Phone: [facility] 02-25-2024 10:03-0500 Body height 167.6 cm Dipti Hemmer PA Work Phone: [facility] 02-25-2024 10:03-0500 Body mass index (BMI) [Ratio] 28.89 kg/m2 Dipti Hemmer PA Work Phone: [facility] 02-25-2024 10:03-0500 Body weight 81.19 kg Dipti Hemmer PA Work Phone: [facility] 02-25-2024 10:03-0500 Diastolic blood pressure 66 mm[Hg] Dipti Hemmer PA Work Phone: [facility] 02-25-2024 10:03-0500 Heart rate 74 /min Dipti Hemmer PA Work Phone: [facility] 02-25-2024 10:03-0500 Respiratory rate 20 /min Dipti Hemmer PA Work Phone: [facility] 02-25-2024 10:03-0500 SaO2% (BldA) [Mass fraction] 99 % Dipti Hemmer PA Work Phone: [facility] 02-25-2024 10:03-0500 Systolic blood pressure 108 mm[Hg] Dipti Hemmer PA Work Phone: [facility] 12-02-2023 10:08-0400 Body height 167.6 cm Teri Martinez MD Work Phone: [facility] 12-02-2023 10:08-0400 Body mass index (BMI) [Ratio] 28.73 kg/m2 Teri Martinez MD Work Phone: [facility] 12-02-2023 10:08-0400 Body weight 80.74 kg Teri Martinez MD Work Phone: [facility] 12-02-2023 10:08-0400 Diastolic blood pressure 70 mm[Hg] Teri Martinez MD Work Phone: [facility] 12-02-2023 10:08-0400 Heart rate 87 /min Teri Martinez MD Work Phone: [facility] 12-02-2023 10:08-0400 Respiratory rate 18 /min Teri Martinez MD Work Phone: [facility] 12-02-2023 10:08-0400 Systolic blood pressure 102 mm[Hg] Teri Martinez MD Work Phone: [facility] 11-26-2023 09:56-0400 Body height 170.2 cm Dipti Hemmer PA Work Phone: [facility] 11-26-2023 09:56-0400 Body mass index (BMI) [Ratio] 27.82 kg/m2 Dipti Hemmer PA Work Phone: [facility] 11-26-2023 09:56-0400 Body weight 80.56 kg Dipti Hemmer PA Work Phone: [facility] 11-26-2023 09:56-0400 Diastolic blood pressure 74 mm[Hg] Dipti Hemmer PA Work Phone: [facility] Comment on above: home BP monitor 141/ 81 11-26-2023 09:56-0400 Heart rate 71 /min Dipti Hemmer PA Work Phone: [facility] 11-26-2023 09:56-0400 Respiratory rate 16 /min Dipti Hemmer PA Work Phone: [facility] 11-26-2023 09:56-0400 SaO2% (BldA) [Mass fraction] 99 % Dipti Hemmer PA Work Phone: [facility] 11-26-2023 09:56-0400 Systolic blood pressure 128 mm[Hg] Dipti Hemmer PA Work Phone: [facility] Comment on above: home BP monitor 141/ 81 02-11-2023 14:43-0500 Body height 170.2 cm Ole Yang MD Work Phone: [facility] 02-11-2023 14:43-0500 Body mass index (BMI) [Ratio] 26.94 kg/m2 Ole Yang MD Work Phone: [facility] 02-11-2023 14:43-0500 Body weight 78.02 kg Ole Yang MD Work Phone: [facility] 02-11-2023 14:43-0500 Diastolic blood pressure 70 mm[Hg] Ole Yang MD Work Phone: [facility] 02-11-2023 14:43-0500 Heart rate 76 /min Ole Yang MD Work Phone: [facility] 02-11-2023 14:43-0500 Systolic blood pressure 126 mm[Hg] Ole Yang MD Work Phone: [facility] Healthcare Encounters Encounter Date Encounter Type Care Provider Facility Start: 10-13-2024 End: 10-13-2024 [employer] Kenneth Clifton DPM Work Phone: [facility] Start: 10-13-2024 End: 10-13-2024 Bamboo [employer] Kenneth Clifton DPM Work Phone: [facility] Start: 10-13-2024 End: 10-13-2024 ambulatory NICOLE LAND Not Available Start: 10-13-2024 End: 10-13-2024 Office outpatient new 30 minutes Kenneth Clifton DPM Work Phone: [facility] Comment on above: Venous insufficiency (Primary Dx); Deformity of toenail; Pain due to onychomycosis of toenails of both feet Start: 09-29-2024 ambulatory NILE GARNICA [facility] Start: 09-26-2024 End: 09-26-2024 Clinisync Result Encounter Ole Yang MD Work Phone: [facility] Unsolicited Start: 09-26-2024 End: 09-28-2024 Clinisync Result Encounter Ole Yang MD Work Phone: [facility] Unsolic[facility] Start: 09-26-2024 End: 09-28-2024 External Result Encounter Ole Yang MD Work Phone: [facility] Unsolicited Start: 09-26-2024 End: 09-26-2024 ambulatory Ole Yang [facility] Work Phone: Start: 09-26-2024 End: 09-26-2024 Departed Referred Ole Yang II, MD -[facility] Start: 09-14-2024 End: 09-14-2024 Bamboo [...] Anxiety; Hyperthyroidism ; Coronary artery disease involving [place] coronary artery of [place] heart without angina pectoris ; Panlobular emphysema (HCC); Deformity of toenail Start: 09-14-2024 End: 09-14-2024 ambulatory OLE YANG Not Available Start: 09-06-2024 End: 09-08-2024 Refill Ole Yang MD Work Phone: [facility] Comment on above: Anxiety Start: 09-02-2024 ambulatory NILE GARNICA [facility] Start: 08-18-2024 End: 08-18-2024 Clinisync Result Encounter [...] stage 3b (CMS-HCC); Coronary artery disease involving [place] coronary artery of [place] heart without angina pectoris Start: 08-15-2024 End: 08-15-2024 ambulatory OLE YANG Not Available Start: 08-15-2024 End: 08-15-2024 Bamboo flowsheet Ole Yang MD Work Phone: [facility] Start: 08-15-2024 End: 08-15-2024 Bamboo flowsheet Ole Yang MD Work Phone: [facility] Start: 08-11-2024 End: 08-11-2024 ambulatory [facility] Start: 08-01-2024 ambulatory [facility] Start: 07-22-2024 End: 07-25-2024 Clinisync Result Encounter Generic External Data Provider [facility] Unsolicited Start: 07-22-2024 End: 07-25-2024 Clinisync Result Encounter Generic External Data Provider [facility] Unsolicited Start: 07-22-2024 End: 07-22-2024 ambulatory Luis E Soares [facility] Work Phone: Start: 07-22-2024 End: 07-22-2024 Departed Referred Michael Zapien Work Phone: [facility] Start: 07-19-2024 End: 07-19-2024 ambulatory [facility] Start: 07-07-2024 End: 07-07-2024 ambulatory DIPTI ANDERSON Not Available Start: 07-01-2024 ambulatory [facility] Start: 06-02-2024 End: 06-02-2024 Patient encounter procedure Dipti VEGA Work Phone: 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 Start: 06-01-2024 End: 06-01-2024 Lina flowsheet Teri Martinez MD Work Phone: [facility] Start: 06-01-2024 End: 06-01-2024 Office outpatient visit 25 minutes Teri Martinez MD Work Phone: [facility] Comment on above: Hyperthyroidism (CMS /HCC) (Primary Dx); Multinodular goiter (CMS/HCC); Longstanding persistent atrial fibrillation (CMS/HCC) Start: 06-01-2024 End: 06-01-2024 ambulatory TERI MARTINEZ Not Available Start: 05-25-2024 ambulatory [facility] Start: 05-23-2024 End: 05-23-2024 Clinisync Result Encounter Generic External Data Provider [facility] Unsolicited Start: 05-23-2024 End: 05-23-2024 Clinisync Result Encounter Generic External Data Provider [facility] Unsolicited Start: 05-12-2024 End: 05-13-2024 Refill Annalise Paniagua [employer] [facility] Comment on above: Anxiety Start: 04-25-2024 ambulatory [facility] Start: 03-30-2024 End: 03-30-2024 Bamboo flowsheet Ole Yang MD Work Phone: [facility] Start: 03-30-2024 End: 03-30-2024 Bamboo flowsheet Ole Yang MD Work Phone: [facility] Start: 03-30-2024 End: 03-30-2024 Office outpatient visit 10 minutes Ole Yang MD Work Phone: [facility] Comment on above: Pulmonary emphysema, unspecified emphysema type (CMS/HCC) (Primary Dx); Age-related osteoporosis without current pathological fracture ([facility]/HCC) Start: 03-30-2024 End: 03-30-2024 ambulatory OLE YANG Not Available Start: 02-29-2024 ambulatory [facility] Start: 02-25-2024 End: 02-25-2024 Bamboo flowsheet [...] Impaired fasting glucose; Coronary artery disease involving [place] coronary artery of [place] heart without angina pectoris (CMS/HCC); Age-related osteoporosis without current pathological fracture (CMS/HCC); Cardiomyopathy, unspecified (CMS/HCC); Longstanding persistent atrial fibrillation (CMS/HCC); Chronic obstructive pulmonary disease, unspecified (CMS/HCC); Chronic kidney disease, stage 3b (HCC) (CMS/HCC); 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); Chronic atrial fibrillation, unspecified (CMS/HCC); Supplemental oxygen dependent Start: 02-25-2024 End: 02-25-2024 ambulatory DIPTI ANDERSON Not Available Start: 02-04-2024 ambulatory [facility] Start: 01-25-2024 End: 01-25-2024 ambulatory [facility] Start: 12-08-2023 ambulatory [facility] Start: 12-08-2023 Encounter for preprocedural cardiovascular examination [facility] Start: 12-03-2023 ambulatory [facility] Start: 12-02-2023 End: 12-02-2023 Bamboo flowsheet Teri Martinez MD Work Phone: [facility] Start: 12-02-2023 End: 12-02-2023 Bamboo flowsheet Teri Martinez MD Work Phone: [facility] Start: 12-02-2023 End: 12-02-2023 Office outpatient visit 25 minutes Teri Martinez MD Work Phone: [facility] Comment on above: Hyperthyroidism (CMS /HCC) [...] 11-26-2023 Office outpatient visit 25 minutes Dipti VEGA [...] Comment on above: Anxiety Start: 10-26-2023 ambulatory [facility] Start: 10-16-2023 ambulatory [facility] Start: 04-27-2023 End: 04-27-2023 ambulatory [facility] Start: 04-27-2023 End: 04-27-2023 Office outpatient visit 15 minutes [facility] OD Work Phone: [facility] Comment on above: Esotropia of right e ye (Primary Dx); Right abducens nerve palsy; Double vision Start: 02-11-2023 End: 02-11-2023 Office outpatient visit 15 minutes Ole Yang MD Work Phone: [facility] Comment on above: Leg hematoma, right, initial encounter (Primary Dx); 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; Localized edema Start: 05-14-2022 End: 05-15-2022 ambulatory [facility] Facility:H1 Start: 03-19-2022 End: 03-20-[address] DIPTI ANDERSON Facility:H1 Start: 12-23-2021 End: 12-24-2021 ambulatory SHELDON GOTTLIEB Facility:H1 Start: 11-25-2021 End: 11-26-2021 [facility] Start: 09-04-2021 End: 09-05-2021 ambulatory SHELDON CHERY Facility:H1 Start: 08-23-2021 Encounter for other preprocedural examination [facility] Start: 08-23-2021 Encounter for preprocedural laboratory examination [facility] Start: 08-22-2021 End: 08-23-2021 ambulatory KEANU ISLAS Facility:H1 Start: 08-21-2021 End: 08-22-2021 ambulatory KEANU ISALS Facility:[facility] Start: 08-20-2021 End: 08-21-2021 ambulatory SHELDON CHERY Facility:H1 Start: 08-20-2021 End: 08-21-2021 Encounter for other preprocedural examination SHELDON CHERY Facility:H1 Start: 07-30-2021 End: 07-31-2021 ambulatory SHELDON GOTTLIEB Facility:H1 Start: 06-28-2021 End: 06-29-2021 ambulatory MERYLMARCIE WONGS Facility:H1 Start: 06-20-2021 Encounter for other specified special examinations [facility]LDON [facility] Start: 06-18-2021 End: 06-19-2021 ambulatory SHELDON GOTTLIEB Facility:H1 Start: 06-18-2021 End: 06-19-2021 Encounter for other specified special examinations MERYL ANTON Facility:H1 Start: 06-17-2021 End: 06-17-[address] MAYRA CHOI Facility:H1 Start: 06-12-2021 End: 06-13-2021 ambulatory SHELDON GOTTLIEB Facility:H1 Start: 06-04-2021 End: 06-04-2021 ambulatory GABRIEL GREEN Facility: Start: 12-28-2020 End: 12-29-2020 ambulatory KEANU ISLAS Facility:[facility] Start: 11-19-2020 End: 11-20-2020 ambulatory KEANU COYCKO Facility:[facility] Start: 10-25-2003 Evaluation and manag ement of inpatient Michael Zapien Work Phone: [facility] Work Phone: Procedures Date Procedure Procedure [...] Work Phone: Start: 07-22-2024 URINE [address] - [facility] Ge neric External Data Provider Start: 05-23-2024 [...] 11-30-2024 End: 11-30-2024 Patient encounter procedure [facility] Start: 10-26-2024 End: 10-26-2024 Patient encounter procedure 10/26/2024 9:30 AM EDT [facility] [address] [place] [address] Ole Yang MD [address] [place] [address] [facility] Start: 10-17-2024 Influenza vaccination Influenza Vaccine (#1) [facility] Start: 10-13-2024 End: 10-13-2024 Patient encounter procedure [facility] Start: 09-27-2024 Bacteria identified in Urine by Culture Urine Culture [facility] Start: 09-27-2024 Urine culture [facility] Start: 09-14-2024 End: 09-14-2024 Patient encounter procedure [facility] Comment on above: Arrived Start: 08-31-2024 End: 08-31-2024 Patient encounter procedure 08/31/2024 9:30 AM EDT Office Visit [facility] [address] [place] [address] Dipti Anderson, PA [address] [place] [address] [facility] Start: 08-15-2024 End: 08-15-2024 Patient encounter procedure 08/15/2024 2:30 PM EDT Office Visit [facility] [address] [place] [address] Ole Yang MD [address] [place] [address] Arrived [facility] Comment on above: Arrived Start: 08-11-2024 End: 08-11-2024 Patient encounter procedure 08/11/2024 10:00 AM EDT Office Visit [facility] [address] [place] [address] Dipti Anderson, PA [address] [place] [address] [facility] Start: 07-22-2024 Bacteria identified in Urine by Culture Urine Culture [facility] Start: 07-22-2024 Urine culture [facility] Start: 06-02-2024 End: 06-02-2025 DXA Skeletal system Views for bone density DEXA bone density Imaging Routine Estrogen deficiency Expected: 06/02/2024, Expires: 06/02/2025 [facility] Work Phone: Comment on above: Expected: 06/02/2024, Expires: Start: 06-02-2024 End: 06-02-2024 Patient encounter procedure 06/02/2024 9:30 AM EDT Office [address] [facility] [address] [place] [address] Dipti Anderson PA [address] [place] [address] [facility] Start: 06-01-2024 End: 06-01-2025 Thyrotropin [Units/volume] in Serum or Plasma TSH Lab Routine Hyperthyroidism ([facility]/HCC) Expected: 06/01/2024 (Approximate), Expires: 06/01/2025 [facility] Comment on above: Expected: 06/01/2024 (Approximate), Expi res: 06/01/2025 Start: 06-01-2024 End: 06-01-2025 Thyroxine (T4) free [Mass/volume] in Serum or Plasma T4, free Lab Routine Hyperthyroidism ([facility]/HCC) Expected: 06/01/2024 (Approximate), Expires: 06/01/2025 [facility] Comment on above: Expected: 06/01/2024 (Approximate), Expi res: 06/01/2025 Start: 06-01-2024 End: 06-01-2025 Triiodothyronine (T3) Free [Mass/volume] in Serum or Plasma T3, free Lab Routine Hyperthyroidism ([facility]/HCC) Expected: 06/01/2024 (Approximate), Expires: 06/01/2025 [facility] Work Phone: Comment on above: Expected: 06/01/2024 (Approximate), Expi res: 06/01/2025 Start: 06-01-2024 End: 06-01-2024 Patient encounter procedure [facility] Comment on above: Arrived Start: 05-30-2024 End: 05-30-2024 Patient encounter procedure 05/30/2024 9:30 AM EDT Office Visit [facility] [address] [place] [address] Dipti Anderson PA [address] [place] [address] [facility] Start: 05-26-2024 Medicare Annual Wellness (AWV) Medicare Annual Wellness (AWV) [facility] Start: 04-26-2024 Tobacco Screening Tobacco Screening [facility] Start: 03-30-2024 End: 03-30-2024 Patient encounter procedure 03/30/2024 10:15 AM EST Office Visit [facility] [address] [place] [address] Ole Yang MD [address] [place] [address] Arrived [facility] Comment on above: Arrived Start: 02-25-2024 End: 02-24-2025 25-hydroxyvitamin D3 [Mass/volume] in Serum or Plasma Vitamin D 25 hydroxy Total Lab Routine Coronary artery disease involving [place] coronary artery of [place] heart without angina pectoris (CMS/HCC) Age-related osteoporosis without current pathological fracture (CMS/HCC) Expected: 02/25/2024 (Approximate), Expires: 02/24/2025 [facility] Comment on above: Expected: 02/25/2024 (Approximate), Expi res: 02/24/2025 Start: 02-25-2024 End: 02-24-2025 Basic metabolic 1998 panel - Serum or Plasma Basic metabolic panel Lab Routine Benign hypertensive heart disease with heart failure (CMS/HCC) Impaired fasting glucose Expected: 02/25/2024 (Approximate), Expires: 02/24/2025 [facility] Comment on above: Expected: 02/25/2024 (Approximate), Expi res: 02/24/2025 Start: 02-25-2024 End: 02-24-2025 CBC W Auto Differential panel - Blood CBC and differential Lab Routine 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 (CMS/HCC) Expected: 02/25/2024 (Approximate), Expires: 02/24/2025 [facility] Work Phone: Comment on above: Expected: 02/25/2024 (Approximate), Expi res: 02/24/2025 Start: 02-25-2024 End: 02-24-2025 Hemoglobin A1c/Hemoglobin.total in Blood Hemoglobin A1c Lab Routine Impaired fasting glucose Expected: 02/25/2024 (Approximate), Expires: 02/24/2025 [facility] Comment on above: Expected: 02/25/2024 (Approximate), Expi res: 02/24/2025 Start: 02-25-2024 End: 02-24-2025 Lipid 1996 panel - Serum or Plasma Lipid panel Lab Routine Coronary artery disease involving [place] coronary artery of [place] heart without angina pectoris (CMS/HCC) Expected: 02/25/2024 (Approximate), Expires: 02/24/2025 [facility] Comment on above: Expected: 02/25/2024 (Approximate), Expi res: 02/24/2025 Start: 02-25-2024 End: 02-25-[address] [facility] Comment on above: [facility] Start: 12-04-2023 Adult BMI Screening Adult BMI Screening [facility] Start: 12-02-2023 End: 12-01-2024 Hepatic function 2000 panel - Serum or Plasma Hepatic function panel Lab Routine Hyperthyroidism (CMS/HCC) Expected: 12/02/2023 (Approximate), Expires: 12/01/2024 [facility] Comment on above: Expected: 12/02/2023 (Approximate), Expi res: 12/01/2024 Start: 12-02-2023 End: 12-01-2024 Thyrotropin [Units/volume] in Serum or Plasma TSH Lab Routine Hyperthyroidism (CMS/HCC) Expected: 12/02/2023 (Approximate), Expires: 12/01/2024 [facility] Comment on above: Expected: 12/02/2023 (Approximate), Expi res: 12/01/2024 Start: 12-02-2023 End: 12-01-2024 Thyroxine (T4) free [Mass/volume] in Serum or Plasma T4, free Lab Routine Hyperthyroidism (CMS/HCC) Expected: 12/02/2023 (Approximate), Expires: 12/01/2024 [facility] Comment on above: Expected: 12/02/2023 (Approximate), Expi res: 12/01/2024 Start: 12-02-2023 End: 12-01-2024 Triiodothyronine (T3) Free [Mass/volume] in Serum or Plasma T3, free Lab Routine Hyperthyroidism (CMS/HCC) Expected: 12/02/2023 (Approximate), Expires: 12/01/2024 [facility] Work Phone: Comment on above: Expected: 12/02/2023 (Approximate), Expi res: 12/01/2024 Start: 12-02-2023 End: 12-02-2023 Patient encounter procedure [facility] Comment on above: Arrived Start: 11-26-2023 End: 11-26-2023 Patient encounter procedure [facility] Comment on above: Arrived Start: 10-18-2023 Influenza vaccination Influenza Vaccine (#1) [facility] Start: 08-17-2007 Fall Risk Screening Fall Risk Screening [facility] Start: 1961 DTaP,Tdap and Td Vaccines (1 - Tdap) DTaP,Tdap and Td Vaccines (1 - Tdap) [facility] Start: 1960 Adult BMI Follow Up Plan Adult BMI Follow Up Plan [facility] Start: 1954 Depression Screening Depression Screening [facility] Start: 1942 Medicare Annual Wellness Visit Medicare Annual Wellness Visit [facility] Bacteria identified in Urine by Culture Urine culture Microbiology Routine 09/26/2024 1:30 PM EDT [facility] Work Phone: Immunizations Immunization Date Immunization Notes Care Provider Fa cili 12-10-2023 SARS-COV-2 (COVID-19 ) vaccine, mRNA, spike protein, LNP, PF, robert-sucrose, 30 mcg/0.3 mL Dipti VEGA Work Phone: [facility] 11-26-2023 Influenza, High-dose Seasonal, Quadrivalent, Preservative Free Dipti VEGA Work Phone: [facility] 11-26-2023 influenza virus vacc ine, unspecified formulation Generic Provider [facility] 01-01-2023 SARS-COV-2 (COVID-19 ) vaccine, mRNA, spike protein, LNP, PF, robert-sucrose, 30 mcg/0.3 mL Dipti Hemmer PA Work Phone: [facility] 01-01-2023 zoster vaccine recombinant K aren Hemmer PA Work Phone: [facility] 12-10-2022 ABRYSVO - Respirator y syncytial virus (RSV), vaccine, bivalent, protein subunit RSV prefusion F, diluent reconstituted, 0.5 mL, PF Dipti Hemmer PA Work Phone: [facility] 11-26-2022 Influenza, Seasonal, Quadrivalent, Adjuvanted Dipti Hemmer PA Work Phone: [facility] [facility] 11-26-2022 influenza virus vacc ine, unspecified formulation Dipti Hemmer PA Work Phone: [facility] 04-16-2022 zoster vaccine recombinant K aren Hemmer PA Work Phone: [facility] 12-10-2021 influenza, high dose seasonal, preservative-free Dipti Hemmer PA Work Phone: [facility] 12-10-2021 Moderna SARS-CoV-2 50mcg/0.5mL Booster Dipti Hemmer PA Work Phone: [facility] 01-17-2021 influenza, high dose seasonal, preservative-free Dipti Hemmer PA Work Phone: [facility] 01-10-2020 Seasonal trivalent influenza vaccine, adjuvanted, preservative free Dipti Hemmer PA Work Phone: [facility] 02-23-2019 pneumococcal polysaccharide vaccine, 23 valent Dipti Hemmer PA Work Phone: [facility] 11-25-2018 Seasonal trivalent influenza vaccine, adjuvanted, preservative free Dipti Hemmer PA Work Phone: [facility] 06-25-2018 pneumococcal conjuga te vaccine, 13 valent Dipti Hemmer PA Work Phone: [facility] 12-02-2017 Influenza, High-dose Seasonal, Quadrivalent, Preservative Free Dipti VEGA Work Phone: [facility] 12-11-2016 Influenza, High-dose Seasonal, Quadrivalent, Preservative Free Dipti VEGA Work Phone: [facility] 08-17-2007 pneumococcal polysaccharide vaccine, 23 valent Dipti VEGA Work Phone: [facility] Healthcare Payers Date Payer Category Payer Self-pay 2022 Private Health Insurance [employer] MED ICARE SUPPLEMENT [id number] 2022 Unknown COMMERCIAL COMME RCIAL - GENERIC PLAN [id number] 2022-Present [phone] [address] [address] [place] [address] [id number] 2004 Medicare [id number] 1959 Medicare [id number] 1959 Unknown [id number] 1942 Unknown [id number] 2.16.840.1.630177.3.579.2 .647 1942 Unknown [id number] 2.16.840.1.952464.3.579.2 .647 1942 Unknown [id number] 2.16.840.1.285295.3.579.2 .647 1942 Unknown [id number] 2.16.840.1.002202.3.579.2 .593 1942 Unknown [id number] 2.16.840.1.351722.3.579.2 .593 1942 Unknown [id number] 2.16.840.1.661775.3.579.2 .593 1942 Unknown [id number] 2.16.840.1.644163.3.579.2 .593 1942 Unknown [id number] 2.16.840.1.628163.3.579.2 .593 1942 Unknown [id number] 2.16.840.1.253480.3.579.2 .593 1942 Unknown [id number] 2.16.840.1.974538.3.579.2 .593 1942 Unknown [id number] 2.16.840.1.711128.3.579.2 .593 1942 Unknown [id number] 2.16.840.1.497869.3.579.2 .593 1942 Unknown [id number] 2.16.840.1.414310.3.579.2 .593 1942 Unknown [id number] 2.16.840.1.183763.3.579.2 .593 1942 Unknown [id number] 2.16.840.1.483138.3.579.2 .593 1942 Unknown [id number] 2.16.840.1.460241.3.579.2 .593 1942 Unknown [id number] 2.16.840.1.967938.3.579.2 .593 1942 Unknown [id number] 2.16.840.1.069761.3.579.2 .593 1942 Unknown [id number] 2.16.840.1.206293.3.579.2 .1286 1942 Unknown [id number] 2.16.840.1.018672.3.579.2 .1259 1942 Unknown [id number] 2.16.840.1.836622.3.579.2 .125 1942 Unknown [id number] 2.16.840.1.665256.3.579.2 .125 1942 Unknown [id number] 2.16.840.1.599912.3.579.2 .1258 1942 Unknown [id number] 2.16.840.1.544509.3.579.2 .1259 1942 Unknown [id number] 2.16.840.1.266657.3.579.2 .1258 1942 Unknown [id number] 2.16.840.1.407159.3.579.2 .125 1942 Unknown [id number] 2.16.840.1.111432.3.579.2 .1258 1942 Unknown [id number] 2.16.840.1.147994.3.579.2 .1258 1942 Unknown [id number] 2.16.840.1.889365.3.579.2 .1258 1942 Unknown [id number] 2.16840.1.006658.3.579.2 .1259 Medicare Medicare [id number] Unknown [id number] 2.16.840.1.219957.3.579.2 .531 Unknown [id number] 2.16.840.1.484931.3.579.2 .531 Social History Date Type Detail Facility Start: 07-28-2022 End: 08-13-2022 Tobacco smoking status NHIS Never smoked tobacco [facility] Start: 07-28-2022 End: 08-13-2022 Tobacco use and exposure Smokeless tobacco non-user [facility] Start: 02-11-2023 End: 10-13-2024 Alcoholic beverage intake Lifetime non-drinker (finding) [facility] Start: 10-29-2023 End: 06-01-2024 History of Social function [facility] Work Phone: Start: 10-29-2023 End: 06-01-2024 [id number] Health Literacy [facility] Work Phone: How often do you nee d to have someone help you when you read instructions, pamphlets, or other written material from your doctor or pharmacy [SILS] Often [facility] Work Phone: Within the last year , have you been afraid of your partner or ex-partner? No [facility] Are you now , , , , never or living with a partner? [facility] How often to you hav e [...] got money to buy more. Never true [facility] Start: 1940 Sex assigned at Not on file P [facility] How often do you nee d to have someone help you when you read instructions, pamphlets, or other written material from your doctor or pharmacy [SILS] Often [facility] Work Phone: How often do you [...] time - these days [OSQ] Rather much [facility] Tobacco smoking stat us NHIS Unknown if ever smoked [facility] Work Phone: Start: 07-23-2024 Sex Female (finding) [facility] Start: 1940 Sex Assigned At Female F [facility] Functional Status Date Assessment Result Facility 09-14-2024 Patient Health Quest ionnaire 2 item (PHQ-2) [Reported] [facility] 08-15-2024 Patient Health Quest ionnaire 2 item (PHQ-2) [Reported] [facility] 08-15-2024 PHQ-9 quick depressi on assessment panel [Reported.PHQ] [facility] 06-02-2024 Patient Health Quest ionnaire 2 item (PHQ-2) [Reported] [facility] 06-01-2024 Total score [AUDIT-C] 0 06/02/19 10:00 AM EDT Mychart, Generic [facility] 06-01-2024 How often to you hav e a drink containing alcohol? Never 06/01/2024 10:00 AM EDT Mychart, Generic Never [facility] 06-01-2024 Functional status Patient does n ot drink 06/01/2024 10:00 AM EDT Mychart, Generic Patient does not drink [facility] 06-01-2024 How often do you hav e 6 or more drinks on 1 occasion? Never 06/01/2024 10:00 AM EDT Mychart, Generic Never [facility] Clinical Notes 06-17-2021 to 10-13-2024 Kenneth Clifton DPM - 10/13/2024 9:30 AM EDTOle Yang MD - 09/14/2024 10:00 AM EDTTelephone Encounter - SILVIA Branham - 09/08/2024 7:03 PM ETHANTOle Yang MD - 08/15/2024 2:30 PM EDT Note Date & Type Note Facility 10-13-2024 History of Presen t illness Narrative Patient: Lluvia Moreno : 1940 PCP: Ole Yang MD SUBJECTIVE This is a 84 y.o. female that presents today with a CC of elongated, thick nails. Pt states nails have been elongated and thick for many years and cause pain with ambulation in shoegear. Pt has tried previous treatment with minimal relief. Pt presents today for nail care and treatment. Pt also presents today for secondary complaint of swelling to b/l ankle regions and feet. They state that condition is starting to worsten have tried no treatments for the condition. States swelling worstens with prolonged standing activities. Allergies: No Known Allergies Past Medical History: Past Medical History: Diagnosis Date A-fib (HCC) [...] Hypertension Hyperthyroidism Toxic multinodular goiter Visual impairment Medications: Current Outpatient Medications: albuterol HFA 90 mcg/act inhaler, Inhale 2 puffs every 4 (four) hours if needed for wheezing, Disp: 18 g, Rfl: 3 apixaban (Eliquis) 5 MG tablet, Take 1 tablet (5 mg) by mouth in the morning and 1 tablet (5 mg) before bedtime., Disp: 200 tablet, Rfl: 3 aspirin 81 MG EC tablet, 1 (one) time each day at the same time., Disp: , Rfl: atorvastatin (Lipitor) 80 MG tablet, Take 1 tablet (80 mg) by mouth Daily, Disp: 100 tablet, Rfl: 3 Brexpiprazole (Rexulti) 0.25 MG tablet, Take 0.25-0.5 mg by mouth Daily Take 0.25 daily for two weeks then 0.5 mg daily., Disp: 60 tablet, Rfl: 2 bumetanide (Bumex) 1 MG tablet, Take 1 mg by mouth Daily PRN (Patient not taking: Reported on 09/14/2024), Disp: , Rfl: Calcium Carb-Cholecalciferol 600-200 MG-UNIT tablet, Take 2 tablets by mouth 1 (one) time each day at the same time, Disp: , Rfl: cholecalciferol (Vitamin D-3) 50 MCG (2000 UT) capsule, Take 2,000 Units by mouth Daily, Disp: , Rfl: lisinopril 5 MG tablet, Take 0.5 tablets (2.5 mg) by mouth in the morning., Disp: 100 tablet, Rfl: 1 LORazepam (Ativan) 0.5 MG tablet, Take 0.5 tablets (0.25 mg) by mouth at bedtime, Disp: , Rfl: methIMAzole (Tapazole) 5 MG tablet, Take 5 mg by mouth Daily, Disp: , Rfl: metoprolol succinate XL (Toprol-XL) 50 MG 24 hr tablet, Take 1 tablet (50 mg) by mouth Daily, Disp: 100 tablet, Rfl: 3 Multiple Vitamins-Minerals (Multi For Her 50+) tablet, 1 (one) time each day at the same time., Disp: , Rfl: PARoxetine (Paxil) 20 MG tablet, Take 1 tablet (20 mg) by mouth in the morning., Disp: 100 tablet, Rfl: 3 spironolactone (Aldactone) 25 MG tablet, Take 1 tablet (25 mg) by mouth Daily, Disp: 90 tablet, Rfl: 3 Social History: Social History Socioeconomic History Marital status: Spouse name: Not on file Number of children: Not on file Years of education: Not on file Highest education level: Not on file Occupational History Not on file Tobacco Use Smoking status: Never Smokeless tobacco: Never Vaping Use Vaping status: Never Used Substance and Sexual Activity Alcohol use: Never Drug use: Never Sexual activity: Not Currently Other Topics Concern Not on file Social History Narrative Not on file Social Drivers of Health Financial Resource Strain: Low Risk (06/01/2024) Overall Financial Resource Strain (CARDIA) Difficulty of Paying Living Expenses: Not very hard Food Insecurity: No Food Insecurity (06/01/2024) Hunger Vital Sign Worried About Running Out of Food in the Last Year: Never true Ran Out of Food in the Last Year: Never true Transportation Needs: No Transportation Needs (06/01/2024) PRAPARE - Transportation Lack of Transportation (Medical): No Lack of Transportation (Non-Medical): No Physical Activity: Inactive (06/01/2024) Exercise Vital Sign Days of Exercise per Week: 0 days Minutes of Exercise per Session: 0 min Stress: Stress Concern Present (06/01/2024) [employer] [place] [employer] - Occupational Stress Questionnaire Feeling of Stress : Rather much Social Connections: Moderately Isolated (06/01/2024) Social Connection and Isolation Panel [NHANES] Frequency of Communication with Friends and Family: More than three times a week Frequency of Social Gatherings with Friends and Family: Twice a week Attends [employer] Services: Never Active Member of Clubs or Organizations: No Attends Club or Organization Meetings: Never Marital Status: Intimate Partner Violence: Not At Risk (06/01/2024) Humiliation, Afraid, Rape, and Kick questionnaire Fear of Current or Ex-Partner: No Emotionally Abused: No Physically Abused: No Sexually Abused: No Housing Stability: Low Risk (06/01/2024) Housing Stability Vital Sign Unable to Pay for Housing in the Last Year: No Number of Times Moved in the Last Year: 0 Homeless in the Last Year: No ROS: General: denies fever, chills, fatigue, malaise Gastrointestinal: denies abdominal pain, ulcers, or changes in appetite or bowel habits Musculoskeletal: denies arthritis, denies loss of strength, pain to hip, knees, back Cardiovascular: denies CP, palpitations, irregular rhythms OBJECTIVE LE EXAM: DERM: Elongated thick yellow crumbly nails digits 1 through 10. diminished hair growth b/l feet. +1 pitting edema to bilateral ankles VASC: Positive DP and negative PT pedal pulses NEURO: Gross sensation intact to bilateral feet ORTHO: Positive pain on palpation to toenails of the left 1,2,3,4,5 toes and right 1,2,3,4,5 toes ASSESSMENT 1. Venous insufficiency 2. Deformity of toenail 3. Pain due to onychomycosis of toenails of both feet PLAN Discussed proper foot care with patient today. Debride nails in length and thickness digits 1 through 10 Visit spent with patient education on condition and treatment of condition. Pt to continue with elevation of feet while resting or NWB. Discussed compression hose and the use of stockings for edema. Discussed condition in detail. Recommendation for vbjv-wiz-hagtbif compression stockings at this time and may consider prescription stockings in the future. Kenneth Clifton DPM documented in this encounter [facility] 09-14-2024 History of Presen t illness Narrative [...] and sedentary lifestyle. Pt was discharged from [facility] 3 weeks ago--med list has been updated [...] .25 mg daily 15 tablet 3 [DISCONTINUED] Enxnqsu-Wixjlukgics-Uubwpmrelj (Breztri Aerosphere) 160-9-4.8 MCG/ACT aerosol Inhale 2 [...] at bedtime Hyperthyroidism Coronary artery disease involving [place] coronary artery of [place] heart without angina pectoris Panlobular emphysema (HCC) Deformity of toenail - Ambulatory referral to Podiatry; Future Follow up in about 2 months (around 11/15/2024) for Routine F/U. documented in this encounter [facility] 09-08-2024 Telephone encounter Note OARRS reviewed, Rx sent into patient's pharmacy. [facility] 09-08-2024 Miscellaneous Notes OARRS reviewed, Rx sent into patient's pharmacy. documented in this encounter [facility] 08-15-2024 History of Presen t illness Narrative Images from the original note were not included. Subjective Patient ID: Lluvia Moreno is a 83 y.o. female who presents for No chief complaint on file.. Lluvia presents today for being discharged from a fpc. She says she is feeling much better [...] mg by mouth Daily 60 tablet 3 Fiszwtf-Twffuwfpkth-Fzisufkthh (Breztri Aerosphere) 160-9-4.8 MCG/ACT aerosol Inhale 2 [...] in follow up of recent hospital and fpc stay. All available hospital records were reviewed and discussed with the patient. Hospital discharge meds were reviewed. Any changes are as noted. This office visit was spent in consultation regarding the patient's current medical problems, differential diagnoses, testing/imaging results, and treatment options. Greater than 25 minutes was spent in neiu-cx-qiit consultation and coordination of care. Pulmonary emphysema, unspecified emphysema type (HCC) Hypoxia Chronic combined systolic (congestive) and diastolic (congestive) heart failure (HCC) Chronic kidney disease, stage 3b (CMS-HCC) Coronary artery disease involving [place] coronary artery of [place] heart without angina pectoris Follow up in about 4 weeks (around 09/12/2024). documented in this encounter [facility] 08-11-2024 Note [facility] [...] day by oral route., Disp: , Rfl: ubznslcqej-xguhjsap-nqtjiysqnp (Breztri Aerosphere) 160-9-4.8 mcg/actuation HFA aerosol inhaler, Inhale., Disp: , Rfl: bumetanide (Bumex) 1 mg tablet, if needed. (Patient not taking: Reported on 08/11/2024), Disp: , Rfl: cholecalciferol (Vitamin D-3) 50 MCG (1999) tablet, Take 1 tablet every day by [...] no acute distress. (more content not included)... [facility] 06-02-2024 History of Presen t illness Narrative [...] Do you have a medical power of erisa attorney?: Yes Current Outpatient Medications on File [...] mg) by mouth Daily 100 tablet 3 Wciugdv-Srcwknpoxmt-Ohgvarxxbp (Breztri Aerosphere) 160-9-4.8 MCG/ACT aerosol Inhale 2 [...] Future 4. Pulmonary emphysema, unspecified emphysema type ([facility]/HCC) This is a chronic medical condition that [...] Benign hypertensive heart disease with heart failure ([facility]/HCC) The patient is seeing a medical office assistant for this condition, treatment is deferred to that specialist. Correspondence from that specialist and any available testing were reviewed during today's visit. 11. Chronic atrial fibrillation, unspecified (CMS/HCC) The patient is seeing a medical office assistant for this condition, treatment is deferred to that specialist. Correspondence from that specialist and any available testing were reviewed during today's visit. 12. Chronic combined systolic (congestive) and diastolic (congestive) heart failure The patient is seeing a medical office assistant for this condition, treatment is deferred to that specialist. Correspondence from that specialist and any available testing were reviewed during today's visit. 13. Chronic systolic dysfunction of left ventricle The patient is seeing a medical office assistant for this condition, treatment is deferred to that specialist. Correspondence from that specialist and any available testing were reviewed during today's visit. 14. Coronary artery disease involving [place] coronary artery of [place] heart without angina pectoris ([facility]) The patient is seeing a medical office assistant for this condition, treatment is deferred to that specialist. Correspondence from that specialist and any available testing were reviewed during today's visit. 15. Primary hypertension ([facility]) The patient is seeing a medical office assistant for this condition, treatment is deferred to that specialist. Correspondence from that specialist and any available testing were reviewed during today's visit. 16. ICD (implantable cardioverter-defibrillator) in place The patient is seeing a medical office assistant for this condition, treatment is deferred to that specialist. Correspondence from that specialist and any available testing were reviewed during today's visit. 17. Non-rheumatic mitral regurgitation The patient is seeing a medical office assistant for this condition, treatment is deferred to that specialist. Correspondence from that specialist and any available testing were reviewed during today's visit. 18. Status post biventricular cardiac pacemaker insertion The patient is seeing a medical office assistant for this condition, treatment is deferred to that specialist. Correspondence from that specialist and any available testing were reviewed during today's visit. 19. Chronic kidney disease, stage 3b (HCC) ([facility]) This is a chronic medical condition that is stable since last assessment. Will continue to monitor with routine labs. 20. Age-related osteoporosis without current pathological fracture ([facility]) This is a chronic medical condition that [...] by patient at this time. 25. Hyperthyroidism (CMS/HCC) The patient is seeing a medical office assistant for this condition, treatment is deferred to [...] Lorazepam as needed. 30. 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 documented in this encounter [facility] 05-12-2024 Telephone encounter Note Needs sent to [facility] 05-12-2024 Miscellaneous Notes Needs sent to [facility] documented in this encounter [facility] 03-30-2024 History of Presen t [...] mg) by mouth Daily 100 tablet 3 Ietflrr-Cnmotlrmvzi-Kkiwqrhvlh (Breztri Aerosphere) 160-9-4.8 MCG/ACT aerosol Inhale 2 puffs in the morning and 2 puffs before bedtime. 10.7 g 3 bumetanide (Bumex) 1 MG tablet Take 1 mg by mouth Daily PRN Calcium Carb-Cholecalciferol 600-200 MG-UNIT tablet Take 2 tablets by mouth 1 (one) time each day at the same time cholecalciferol (Vitamin D-3) 50 MCG (1999) capsule [...] for Routine F/U. documented in this encounter [facility] 02-25-2024 History of Presen t [...] 1 TABLET EVERY MORNING 100 tablet 3 Lcytpuu-Epbxladqagr-Whkzhwltdg (Breztri Aerosphere) 160-9-4.8 MCG/ACT aerosol Inhale 2 [...] CAD (coronary artery disease) (CMS/HCC) Cerebrovascular accident ([facility]) Disease of thyroid gland (CMS/[facility]) H/O bladder infections Hearing loss Heart disease [...] upcoming fasting labs. Coronary artery disease involving [place] coronary artery of [place] heart without angina pectoris (CMS/HCC) - CBC and differential; Future - Lipid panel; Future - Vitamin D 25 hydroxy Total; Future The patient is seeing a medical office assistant for this condition, treatment is deferred to that specialist. Correspondence from that specialist and any available testing were reviewed during today's visit. Age-related osteoporosis without current pathological fracture (CMS/HCC) - Vitamin D 25 hydroxy Total; Future Will continue to monitor with routine DEXA scans. Continue Vitamin D and Calcium supplements daily. Cardiomyopathy, unspecified (CMS/HCC) The patient is seeing a medical office assistant for this condition, treatment is deferred to that specialist. Correspondence from that specialist and any available testing were reviewed during today's visit. Longstanding persistent atrial fibrillation (CMS/HCC) The patient is seeing a medical office assistant for this condition, treatment is deferred to that specialist. Correspondence from that specialist and any available testing were reviewed during today's visit. Chronic obstructive pulmonary disease, unspecified (CMS/HCC) See above. Chronic kidney disease, stage 3b (HCC) (CMS/HCC) Will continue to monitor with routine labs. 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) The patient is seeing a medical office assistant for this condition, treatment is deferred to that specialist. Correspondence from that specialist and any available testing were reviewed during today's visit. Chronic atrial fibrillation, unspecified (CMS/HCC) The patient is seeing a medical office assistant for this condition, treatment is deferred to that specialist. Correspondence from that specialist and any available testing were reviewed during today's visit. Supplemental oxygen dependent Using oxygen concentrator, O2 via nasal cannula. Oxygen is medically necessary for patient due to hypoxia and significant CLAIRE without it. Follow up in about 3 months (around 05/27/2024) for Medicare Wellness Visit. documented in this encounter [facility] 01-25-2024 Note [facility] follow-up [...] by mouth at bedtime., Disp: , Rfl: hbkgsyexjf-lrwhmgkb-lvtmqtypid (Breztri Aerosphere) 160-9-4.8 mcg/actuation HFA aerosol inhaler, [...] stress ECG findings (more content not included)... [facility] 12-02-2023 History of Presen t illness [...] on 03/31/18 for lab done in in [facility]: TSH still suppressed 0.07, free T4 back [...] hours atorvastatin (LIPITOR) 80 mg, Oral, Daily Ypqfmhk-Lbldmfabhte-Rbfvmsmpgt (Breztri Aerosphere) 160-9-4.8 MCG/ACT aerosol 2 Inhalation [...] Multinodular goiter (CMS/HCC) Longstanding persistent atrial fibrillation ([facility]) Follow up in about 6 months (around 06/01/2024). documented in this encounter [facility] 11-26-2023 History of Presen t [...] oxygen tank. Does have an appointment with [facility] on 12/09 to get [...] mouth in the morning. 100 tablet 3 Dtvezup-Pnyyoggyzbi-Kgmbvzllhc (Breztri Aerosphere) 160-9-4.8 MCG/ACT aerosol Inhale 2 [...] vaccination - Influenza, high-dose seasonal, quadrivalent, PF (KLH265) (Fluzone High Dose [place] 0.7mL dose) [...] episode of recurrent major depressive disorder (HCC) ([facility]/HCC) Inability to be mobile has greatly decreased [...] 02/26/2024) for COPD. documented in this encounter [facility] 10-30-2023 Telephone encounter Note OARRS reviewed, Rx sent into patient's pharmacy. [facility] 10-30-2023 Miscellaneous Notes OARRS reviewed, Rx sent into patient's pharmacy. documented in this encounter [facility] 04-27-2023 History of Presen t [...] like to follow up with her local clock repairer for regular eyecare/comprehensive exams. Will send a [...] (TOPROL XL) 50 mg 24 hr tablet multivitamin,ej-raew-Yh-FA-min 27-0.4 mg tablet 1 (one) time each [...] history of COPD (chronic obstructive pulmonary disease) ([facility]) and Hypertension. She has a past surgical [...] accurate and complete. documented in this encounter [facility] 02-11-2023 History of Presen t illness Narrative [...] TAKE 1 TABLET DAILY for 100 days Bhsghna-Jkjjoyhcnsj-Aalpxvvaac (Breztri Aerosphere) 160-9-4.8 MCG/ACT aerosol Inhale 1 [...] follow-ups on file. 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 Localized edema Edema documented in this [...] Impaired fasting glucose Coronary artery disease involving [place] coronary artery of [place] heart without angina pectoris (CMS/HCC) Age-related osteoporosis [...] Diplopia documented in this encounter [facility] SystemEvaluation note* Diagnosis Anxiety Anxiety state, unspecified documented [facility] encounter [facility]* Diagnosis Hyperthyroidism (CMS/HCC)- Primary Thyrotoxicosis without mention of goiter or other cause, without mention of thyrotoxic crisis or storm Multinodular goiter (CMS/HCC) Nontoxic multinodular goiter Longstanding persistent atrial fibrillation (CMS/HCC) documented in this encounter [facility] HealthcareEvaluation note* Diagnosis Medicare annual wellness visit, subsequent- Primary ACP (advance care planning) Other specified counseling Estrogen deficiency Other ovarian failure Pulmonary emphysema, unspecified emphysema type (CMS/HCC) Dyspnea on exertion Other dyspnea and respiratory abnormality Hypoxia Hypoxemia Mild intermittent asthma without complication (CMS/HCC) Panlobular emphysema ([facility]/HCC) Other emphysema Supplemental oxygen dependent Dependence on supplemental oxygen Benign hypertensive heart disease with heart failure (CMS/HCC) Chronic atrial fibrillation, unspecified ([facility]/HCC) 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 systolic dysfunction of left ventricle Coronary artery disease involving [place] coronary artery of [place] heart without angina pectoris ([facility]/HCC) Primary hypertension ([facility]/HCC) Unspecified essential hypertension ICD (implantable cardioverter-defibrillator) in place Non-rheumatic mitral regurgitation Status post biventricular cardiac pacemaker insertion Chronic kidney disease, stage 3b (HCC) ([facility]) Age-related osteoporosis without current pathological fracture ([facility]/HCC) Arthritis of right shoulder region Joint derangement of shoulder region Unspecified derangement, shoulder region Primary osteoarthritis involving multiple joints Rotator cuff syndrome of right shoulder Hyperthyroidism ([facility]/HCC) Thyrotoxicosis without mention of goiter or other cause, without mention of thyrotoxic crisis or storm Impaired fasting glucose Overweight (BMI 25.0-29.9) Overweight Primary ovarian failure Other ovarian failure Anxiety Anxiety state, unspecified Current use of longterm anticoagulation Diplopia Elevated liver enzymes Other nonspecific abnormal serum enzyme levels Frequent falls History of stroke without residual deficits Transient ischemic attack (TIA), and cerebral infarction without residual deficits Memory changes 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) COPD exacerbation ([facility]/HCC) Obstructive chronic bronchitis with exacerbation documented in this encounter [facility] HealthcareEvaluation noteNo assessment information availableMer[facility] Work Phone: Evaluation note* Diagnosis Dementia with behavioral disturbance (HCC)- Primary Pulmonary emphysema, unspecified emphysema type (HCC) Hypoxia Hypoxemia Chronic combined systolic (congestive) and diastolic (congestive) heart failure (HCC) Chronic kidney disease, stage 3b ([facility]-HCC) Coronary artery disease involving [place] coronary artery of [place] heart without angina pectoris documented in this encounter [facility] HealthcareEvaluation note* Diagnosis Anxiety Anxiety state, unspecified documented in this encounter [facility] HealthcareEvaluation note* Diagnosis Chronic kidney disease, stage 3b (CMS-HCC)- Primary Chronic combined systolic (congestive) and diastolic (congestive) heart failure (HCC) Supplemental oxygen dependent Dependence on supplemental oxygen Anxiety Anxiety state, unspecified Hyperthyroidism Thyrotoxicosis without mention of goiter or other cause, without mention of thyrotoxic crisis or storm Coronary artery disease involving [place] coronary artery of [place] heart without angina pectoris Panlobular emphysema (HCC) Other emphysema Deformity of toenail Unspecified disease of nail documented in this encounter [facility] HealthcareEvaluation note* Diagnosis Venous insufficiency- Primary Unspecified venous (peripheral) insufficiency Deformity of toenail Unspecified disease of nail Pain due to onychomycosis of toenails of both feet documented in this encounter [facility] HealthcareInstructions* Attachments The following attachments cannot be sent through Care Everywhere. * Double Vision (Korean) [facility] SystemReason for referral (narrative)No reason for referral information availableK[facility] Work Phone: Summary Purpose Family History No Family History Records FoundNo Family History Records FoundNo Family History Records FoundNo Family History Records FoundNo Family History Records FoundNo Family History Records FoundNo Family History Records Found Advance Directives No Advanced Directives Records FoundDocuments on File Type Date Recorded Patient Job Spotter Expl anation Power of Petrophysicist 02/25/2024 12:18 PM [facility] Power of Petrophysicist Documents on File Type Date Recorded Patient Job Spotter Expl anation Power of Petrophysicist 02/25/2024 12:18 PM Healt [facility] Power of Petrophysicist Reason for Referral Specialty Diagnoses / Procedures Referred By Safia samuels Referred To Contact Radiology Diagnoses Leg hematoma, right, initial encounter Current use of longterm anticoagulation Localized edema Procedures Vascular US lower extremity venous duplex right Ole Yang MD [address] [place] [address] [facility] [address] [place] [address] Referral ID Status Reason Start Date Expiration Date Visits Re quested Visits Authorized [id number] Closed 02/12/2023 05/14/2023 1 1 Chief Complaint and Reason for Visit Chief Complaint Admit Date ^ October 25, 2003 6:00am Unknown July 22, 2024 6:10a m Unknown September 26, 2024 1: 30pm Additional Source Comments INFORMATION SOURCE (unrecogn ized section and content) DATE CREATED AUTHOR 10/15/2021 [facility] DATE CREATED AUTHOR AUTHOR'S ORGANIZ ATION 05/18/2022 [facility] DATE CREATED AUTHOR AUTHOR'S ORGANIZ ATION 04/27/2023 [facility] DATE CREATED AUTHOR AUTHOR'S ORGANIZ ATION 06/08/2024 [facility] DATE CREATED AUTHOR AUTHOR'S ORGANIZ ATION 09/30/2024 [facility] DATE CREATED AUTHOR AUTHOR'S ORGANIZ ATION 10/01/2024 [facility] DATE CREATED AUTHOR AUTHOR'S ORGANIZ ATION 10/15/2024 [facility] d[facility] Specialists EPIC Reason for Visit (unrecogniz [...] Refill Reason Comments Congestive Heart Failure Hypertension Reason Comments Toenail Care Specialty Diagnoses / Procedures Referred By Contac t Referred To Contact Podiatry Diagnoses Deformity of toenail Procedures [place] OFFICE/OUTPATIENT NEW HIGH MDM 60 MINUTES Ole Yang MD [address] [place] [address] Phone: tel: fax: Kenneth Clifton DPM [address] [place] [address] Phone: tel: fax: Referral ID Status Reason Start Date Expiration Date V isits Requested Visits Authorized [id number] Closed Specialty Services Required 09/14/2024 03/13/2025 1 1 Care Teams (unrecognized sec tion and content) Watch Parts Grinder Relationship Specialty Start Date End Date Ole Yang MD [address] [place] [address] PCP - ACO Reach 07/10/22 Ole Yang MD [address] [place] [address] PCP - General Internal Medicine 07/28/22 Watch Parts Grinder Relationship Specialty Start Date End Date Ole Yang MD [address] [place] [address] PCP - ACO Reach 07/10/22 Ole Yang MD [address] [place] [address] PCP - General Internal Medicine 07/28/22ThursdayBea LPN [address] [place] [address] Licensed Practical Nurse Family Medicine 10/27/23 Watch Parts Grinder Relationship Specialty Start Date End Date Ole Yang MD [address] [place] [address] PCP - ACO Reach 07/10/22 Ole Yang MD [address] [place] [address] PCP - General Internal Medicine 07/28/22ThursdayBea LPN [address] [place] [address] Licensed Practical Nurse Family Medicine 10/27/23 Watch Parts Grinder Relationship Specialty Start Date End Date Ole Yang MD [address] [place] [address] PCP - ACO Reach 07/10/22 Ole Yang MD [address] [place] [address] PCP - General Internal Medicine 07/28/22Thursday, Bea, EDITOR CONTINUITY AND SCRIPT [address] [place] [address] Licensed Practical Nurse Family Medicine 10/27/23 Watch Parts Grinder Relationship Specialty Start Date End Date Ole Yang MD [address] [place] [address] PCP - ACO Reach 07/10/22 Ole Yang MD [address] [place] [address] PCP - General Internal Medicine 07/28/22Thursday, Bea, EDITOR CONTINUITY AND SCRIPT [address] [place] [address] Licensed Practical Nurse Family Medicine 10/27/23 Watch Parts Grinder Relationship Specialty Start Date End Date Ole Yang MD [address] [place] [address] PCP - ACO Reach 07/10/22 Ole Yang MD [address] [place] [address] PCP - General Internal Medicine 07/28/22Thursday, Bea, EDITOR CONTINUITY AND SCRIPT [address] [place] [address] Licensed Practical Nurse Family Medicine 10/27/23 Watch Parts Grinder Relationship Specialty Start Date End Date Ole Yang MD [address] [place] [address] PCP - ACO Reach 07/10/22 Ole Yang MD [address] [place] [address] PCP - General Internal Medicine 07/28/22 Debora Saenz, RN Licensed Practical Nurse Family Medicine 03/25/24 Watch Parts Grinder Relationship Specialty Start Date End Date Ole Yang MD [address] [place] [address] PCP - ACO Reach 07/10/22 Ole Yang MD [address] [place] [address] PCP - General Internal Medicine 07/28/22 Debora Saenz, RN Licensed Practical Nurse Family Medicine 03/25/24 Watch Parts Grinder Relationship Specialty Start Date End Date Ole Yang MD [address] [place] [address] PCP - General Internal Medicine 08/13/22 Watch Parts Grinder Relationship Specialty Start Date End Date Ole Yang MD [address] [place] [address] PCP - ACO Reach 07/10/22 Ole Yang MD [address] [place] [address] PCP - General Internal Medicine 07/28/22 Edna Alcantara LPN 05/06/24 Watch Parts Grinder Relationship Specialty Start Date End Date Ole Yang MD [address] [place] [address] PCP - ACO Reach 07/10/22 Ole Yang MD [address] [place] [address] PCP - General Internal Medicine 07/28/22 Edna Alcantara LPN 05/06/24 Watch Parts Grinder Relationship Specialty Start Date End Date Ole Yang MD [address] [place] [address] PCP - ACO Reach 07/10/22 Ole Yang MD [address] [place] [address] PCP - General Internal Medicine 07/28/22 Edna Alcantara EDITOR CONTINUITY AND SCRIPT 05/06/24 Watch Parts Grinder Relationship Specialty Start Date End Date Ole Yang MD [address] [place] [address] PCP - ACO Reach 07/10/22 Ole Yang MD [address] [place] [address] PCP - General Internal Medicine 07/28/22 Edna Alcantara EDITOR CONTINUITY AND SCRIPT 05/06/24 Watch Parts Grinder Relationship Specialty Start Date End Date Ole Yang MD [address] [place] [address] PCP - ACO Reach 07/10/22 Ole Yang MD [address] [place] [address] PCP - General Internal Medicine 07/28/22 Edna Alcantara LPN 05/06/24 Team Status: Active Member Role Status Eric Zapien Attending Provider Active Start: October 25, 2003 Team Status: Inactive Member Role Status Dates Luis E Soares MD Attending Provider Active St art: July 22, 2024 End: July 22, 2024 Watch Parts Grinder Relationship Specialty Start Date End Date Ole Yang MD [address] [place] [address] PCP - ACO Reach 07/10/22 Ole Yang MD [address] [place] [address] PCP - General Internal Medicine 07/28/22 Edna Alcantara LPN 05/06/24 Watch Parts Grinder Relationship Specialty Start Date End Date Ole Yang MD [address] [place] [address] PCP - ACO Reach 07/10/22 Ole Yang MD [address] [place] [address] PCP - General Internal Medicine 07/28/22 Edna Alcantara LPN [address] [place] [address] 05/06/24 Watch Parts Grinder Relationship Specialty Start Date End Date Ole Yang MD [address] [place] [address] PCP - ACO Reach 07/10/22 Ole Yang MD [address] [place] [address] PCP - General Internal Medicine 07/28/22 Edna Alcantara LPN [address] [place] [address] 05/06/24 Watch Parts Grinder Relationship Specialty Start Date End Date Ole Yang MD [address] [place] [address] PCP - ACO Reach 07/10/22 Ole Yang MD [address] [place] [address] PCP - General Internal Medicine 07/28/22 Edna Alcantara LPN [address] [place] [address] 05/06/24 Watch Parts Grinder Relationship Specialty Start Date End Date Ole Yang MD [address] [place] [address] PCP - ACO Reach 07/10/22 Ole Yang MD [address] [place] [address] PCP - General Internal Medicine 07/28/22 Edna Alcantara LPN [address] [place] [address] 05/06/24 Watch Parts Grinder Relationship Specialty Start Date End Date Ole Yang MD [address] [place] [address] PCP - ACO Reach 07/10/22 Ole Yang MD [address] [place] [address] PCP - General Internal Medicine 07/28/22 Edna Alcantara LPN [address] [place] [address] 05/06/24 Watch Parts Grinder Relationship Specialty Start Date End Date Ole Yang MD [address] [place] [address] PCP - ACO Reach 07/10/22 Ole Yang MD [address] [place] [address] PCP - General Internal Medicine 07/28/22 Edna Alcantara LPN [address] [place] [address] 05/06/24 Watch Parts Grinder Relationship Specialty Start Date End Date Ole Yang MD [address] [place] [address] PCP - ACO Reach 07/10/22 Ole Yang MD [address] [place] [address] PCP - General Internal Medicine 07/28/22 Edna Alcantara LPN [address] [place] [address] 05/06/24 Team Status: Inactive Member Role Status Dates Ole Yang II MD Attending Provider Active S tart: September 26, 2024 End: September 26, 2024 Watch Parts Grinder Relationship Specialty Start Date End Date Ole Yang MD [address] [place] [address] PCP - ACO Reach 07/10/22 Ole Yang MD [address] [place] [address] PCP - General Internal Medicine 07/28/22 Edna Alcantara LPN [address] [place] [address] 05/06/24 Goals (unrecognized section and content) Goals [...] BE BASED ON THE PRIMARY CLINICAL RECORDS. [facility]. provides no warranty or guarantee of the accuracy or completeness of information in this document.
[2024-10-19 10:48] LABS: Hematocrit 38.9 % (36.0-48.0); Hemoglobin 11.9 g/dL (12.0-16.0); Immature Granulocytes Abs Auto 0.05 10^3/uL (0.00-0.03); Immature Granulocytes Pct Auto 0.5 % (0.0-0.5); Lymphocytes Absolute Auto 1.7 10^3/uL (1.2-3.8); Mean Corpuscular HGB Conc 30.6 g/dL (29.9-35.2); Mean Corpuscular Hemoglobin 28.1 pg (26.7-34.0); Mean Corpuscular Volume 91.7 fL (81.0-99.0); Platelet Count 408 10^3/uL (150-450); Red Blood Count 4.24 10^6/uL (4.20-5.40); White Blood Count 9.4 10^3/uL (4.0-11.0)
[2024-10-19 12:02] LABS: Alanine Aminotransferase 39 U/L (14-59); Albumin Globulin Ratio 0.7; Albumin Level 3.3 g/dL (3.4-5.0); Alkaline Phosphatase 115 U/L (46-116); Anion Gap 15.6; Aspartate Amino Transferase 30 U/L (15-37); Blood Urea Nitrogen 34.0 mg/dL (7.0-18.0); Calcium 10.1 mg/dL (8.5-10.1); Carbon Dioxide 27.8 mmol/L (21.0-32.0); Chloride 106 mmol/L (98-107); Estimated GFR (African America 45 (>=60 mL/min/1.73m^2); Estimated GFR (Non-African Ame 37 (>=60 mL/min/1.73m^2); Globulin 4.7 g/dL; Glucose 126 mg/dL (74-106); Potassium 5.4 mmol/L (3.5-5.1); Sodium 144 mmol/L (136-145); Total Protein 8.0 g/dL (6.4-8.2)
== END 2024-10-19 08:05 | disposition home or self-care (01) ==
LOC: LAB 08:05
PROVIDERS: PCP Internal Medicine; Visit Provider Nurse Practitioner Family
DX: R53.83 Other fatigue (principal)
CPT/HCPCS: 36415; 80053; 85025

== ENCOUNTER 2024-10-22 04:33 | Emergency (ER) | payer MEDICARE, OTHER, SELFPAY ==
[2024-10-22 04:35] VITALS: BP 191/70; PULSE 70; TEMP 36.6; O2SAT 99
--- OUTSIDE RECORDS SUMMARY | 2024-10-22 04:44 | XMS_ITS | CCD ---
Author Organization [facility] Care Team Providers Care Knotting Machine Operator Portable Name Role Phone KEANU ISLAS Admitting Unavailable KEANU ISLAS Attending Unavailable OLE YANG Referring Unavailable OLE YANG Primary Care Unavailable KEANU ISLAS Admitting Unavailable KEANU ISLAS Attending Unavailable OLE YANG Primary Care Unavailable OLE YANG Referring Unavailable KEANU ISLAS Admitting Unavailable KEANU ISLAS Attending Unavailable OLE YANG Primary Care Unavailable OLE YANG Referring Unavailable MICHELEL, AHMAD Consulting Unavailable EMILY, DR GRANT Primary [...] Ole Yang MD Primary Care Provider Thursday SOIL CONSERVATIONIST, Bea Unavailable Debora Saenz RN Unavailable Ole Yang MD [facility] Unavailable Unavailable Michael Zapien Attending Provider Luis E Soares MD Attending Provider Alcantara SOIL CONSERVATIONIST, Edna Unavailable Ole Yang II Attending Provider [...] Attending Unavailable DIPTI ANDERSON Attending Unavailable OLE YAGN Attending Unavailable OLE YANG Attending Unavailable DIPTI ANDERSON Attending Unavailable TERI MARTINEZ Attending Unavailable TERI MARTINEZ Referring Unavailable DIPTI ANDERSON Attending Unavailable KENNETH CLIFTON Attending Unavailable OLE YANG Referring Unavailable NICOLE LAND Attending Unavailable Medications Current Medications Medication Drug Class(es) Dates Sig (Normalized) Sig (Original) [id number] 200 actuat albuterol 0.09 mg/actuat metered dose [...] 80 MG tablet Indications: 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 (CMS/HCC) Take 1 [...] 2 puff(s) by inhalation in the morning Myppgth-Qdtgxkwjikc-Mevzgewyvj (Breztri Aerosphere) 160-9-4.8 MCG/ACT aerosol Indications: Pulmonary [...] unt oral tablet (20 sources) Vitamin D Start: 10-13-2024 End: 11-12-2024 take 2 tablets by mouth once daily Calcium Carb-Cholecalciferol (Calcium + Vitamin D3) 600-5 MG-MCG tablet Indications: Age-related osteoporosis without current pathological fracture Take 2 tablets by mouth 1 (one) time each day at the same time 60 tablet 2 10/13/2024 11/12/2024 Active cholecalciferol 0.05 mg oral capsule (20 [...] (0.25 mg) by mouth at bedtime 09/14/2024 Active Start: 08-21-2021 End: 05-12-2024 take 1 [...] Unspecified atrial fibrillation; Translations: [Atrial fibrillation] Onset: 03-31-2023 06-12-2023 Chronic Chronic kidney disease (20 sources) Chronic kidney disease stage 3B ; Translations: [Chronic kidney disease, stage 3b (HCC) ([facility]/HCC)] Onset: 02-25-2024 02-25-2024 Chronic Chronic kidney disease [...] pectoris; Translations: [Atherosclerotic heart disease 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] Onset: 09-24-2015 [...] Resolved: 06-02-2024 05-27-2023 Other aftercare (1 source) termite exterminator (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) use of aspirin; Translations: [RETIREMENT 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 ASPIRIN] Onset: 06-18-2021 Episodic Other aftercare (1 source) Other terminal computer operator (current) drug therapy; Translations: [OTH RECEIVER BULK SYSTEM CURRENT DRUG THERAPY] Onset: 06-18-2021 Episodic Other aftercare (20 sources) Long-term current use of anticoagulant; Translations: [termite exterminator (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] Onset: 02-11-2023 02-11-2023 [...] Onset: 05-27-2023 05-27-2023 Episodic Residual codes; unclassified (15 sources) Difficulty sleeping ; Translations: [Sleep disorder, [...] Name Value Interpretation Reference Range Facility ALL CBC WITH AUTO DIFFon BASOPHILS ABSOLUTE AUTO 0.1 [facility] Basophils/100 WBC (Bld) 0.5 % 0.2 - 2.0 % [facility] Eosinophils/100 WBC (Bld) 2.7 % 0.9 - 7.0 % [facility] Erythrocyte distribution width (RBC) [Ratio] 14.5 % 11.0 - 15.0 % [facility] Hematocrit (Bld) [Volume fraction] 38.9 % 36.0 - 48.0 % [facility] Hemoglobin (Bld) [Mass/Vol] 11.9 g/dL Low 12.0 - 16.0 g/dL [facility] IMMATURE GRANULOCYTES ABS AUTO 0.05 High [facility] Immature granulocytes/100 WBC (Bld) 0.5 % 0.0 - 0.5 % [facility] Interpretation and review of laboratory results Abnormal [facility] LYMPHOCYTES ABSOLUTE AUTO 1.7 [facility] Lymphocytes/100 WBC (Bld) 17.6 % Low 20.5 - 60.0 % [facility] MCH (RBC) [Entitic mass] 28.1 pg 26.7 - 34.0 pg [facility] MCHC (RBC) [Mass/Vol] 30.6 g/dL 29.9 - 35.2 g/dL [facility] MCV (RBC) [Entitic vol] 91.7 fL 81.0 - 99.0 fL [facility] MONOCYTES ABSOLUTE AUTO 0.7 [facility] Monocytes/100 WBC (Bld) 7.2 % 1.7 - 12.0 % [facility] NEUTROPHILS ABSOLUTE AUTO 6.7 High [facility] Neutrophils/100 WBC (Bld) 71.5 % 43.0 - 75.0 % [facility] Platelet mean volume (Bld) [Entitic vol] 9.5 fL 9.5 - 13.5 fL [facility] TBH EO # 0.3 [facility] TB PLT 408 [facility] RBC 4.24 [facility] TBH WBC 9.4 [facility] ALL URINALYSISon 09-26-2024 BILIRUBIN URINE Negative NEGATIVE [facility] BLOOD URINE Negative NEGATIVE [facility] Clarity (U) CLEAR CLEAR [facility] Color (U) LT. YELLOW YELLOW [facility] GLUCOSE URINE UA Negative NEGATIVE mg/dL [facility] Interpretation and review of laboratory results Abnormal [facility] Ketones Ql (U) Negative NEGATIVE mg/dL [facility] Leukocyte esterase Test strip Ql (U) Negative NEGATIVE [facility] NITRITE URINE Negative NEGATIVE [facility] pH (U) 7.0 [pH] 5.0 - 9.0 [facility] PROTEIN URINE Negative NEG/TRACE mg/dL [facility] SPECIFIC GRAVITY URINE <=1.005 Abnormal 1.005 - 1.025 [facility] UROBILINOGEN URINE 0.2 EU/dL 0.2 - 1.0 EU/dL [facility] Urine Cultureon 09-26-2024 Bacteria identified Cx Nom (U) 30,000 colonies/ml mixed bacterial skin contaminants 2 Days PERFORMED BY: [place] [address] PATHOLOGIST PLUMBING DESIGNER JUANA CLIFFORD M.D. Normal [facility] Comment on above: Performed By: #### C UU #### [address] 36on 09-21-2024 36 MD Rosario Rivera MA Good lipids and AST ALT. Continue current medication. Recheck in 6 months Advised patient of lab results per Dr. Walker. Patient verbalized understanding. Normal [facility] Orders Onlyon 09-21-2024 Orders Only [id number] Lluvia Moreno 1940 F Date Provider Department Center 09/21/2024 KEANU BARROSO [facility] CARD [facility] Family History Problem Relation Age of Onset Colon cancer Father Coronary artery disease Brother Hypertension Brother Kidney cancer Brother Family Status - Relation Status Age at Father Brother [place] 36on 09-20-2024 36 Regarding lab result s from 08/18/2024: MD Pita Rivera MA Good lipids and AST ALT. Continue current medication. Recheck in 6 months [place] ALL LIPID PROFILE (FASTING)o n 08-18-2024 CHOL HDL RATIO 2 [facility] Comment on above: 3.3 - 4.4 LOW RISK 4.4 - 7.1 AVERAGE RISK 7.1 - 11.0 MODERATE RISK >11.0 HIGH RISK Cholesterol [Mass/Vol] 110 mg/dL NINF - 200 mg/dL [facility] Cholesterol in HDL [Mass/Vol] 54 mg/dL 40 - 60 mg/dL [facility] Comment on above: > or =60 mg/dl - LOW CARDIOVASCULAR RISK <40 mg/dl - HIGH CARDIOVASCULAR RISK Magnesium [Mass/Vol] 45 mg/dL [facility] Comment on above: <100 mg/dl OPTIMAL 100-129 mg/dl NEAR OR ABOVE OPTIMAL 130-159 mg/dl BORDERLINE HIGH 160-189 mg/dl HIGH >190 mg/dl VERY HIGH Magnesium [Mass/Vol] 11 mg/dL [facility] Triglyceride [Mass/Vol] 55 mg/dL NINF - 150 mg/dL [facility] Jessie 08-18-2024 ALT [Catalytic activity/Vol] 24 U/L 14 - 59 U/L [facility] Kenneth 08-18-2024 AST [Catalytic activity/Vol] 23 U/L 15 - 37 U/L [facility] No Panel Informationon 08-18 [facility] Office Visiton 08-11-2024 Follow-up visit [id number] Lluvia Moreno 1940 F Date Provider Department Center 08/11/2024 [id number] WALKER ISABELLE Sueroevue Alina Family History Problem Relation Age of Onset Colon cancer Father Coronary artery disease Brother Hypertension Brother Kidney cancer Brother Family Status - Relation Status Age at Father Brother Level of Service:80581 [place] OFFICE/OUTPATIENT ESTABLISHED MOD MDM 30 MIN Reason for Visit and Comments: Atrial Fibrillation [80] Congestive Heart Failure [127] - She was discharged from [facility] a few weeks ago for UTI and NSTEMI. Cardiomyopathy [104] - Due for device check in Jan 2025 - was interrogated a few weeks ago. Coronary Artery Disease [187] Hypertension [137090] Hyperlipidemia [182] Shortness of Breath [387840] Edema [[id number]] - Had RX for Bumex to use PRN but daughter states she hasn't taken it in over 2 years. frequent falls [Other] - Says she fell 3-4 times last month. Normal [facility] URINE CULTURE - FRon 07-25 Interpretation and review of laboratory results Abnormal [facility] URINE CULTURE - [facility] Urine Culture - FR Testing performed at [facility] URINE CULTURE - [facility] [address] [place] [address] [facility] URINE CULTURE - [facility] O:ESCCOL Isolated [facility] URINE CULTURE - [facility] Urine Culture - FR Walton Count [facility] URINE CULTURE - FR >100,000 CFU/ml [facility] URINE CULTURE - [facility] Organism: 1.1 Antibiotic Interpretation SYLVIA Status [facility] URINE CULTURE - FR Amikacin S F Susceptible [facility] URINE CULTURE - FR Amoxicillin/Clavulanate S F Susceptible [facility] URINE CULTURE - FR Ampicillin S F Susceptible [facility] URINE CULTURE - FR Aztreonam S F Susceptible [facility] URINE CULTURE - FR Ceftazidime S F Susceptible [facility] URINE CULTURE - [facility] Ceftazidime/Avibactam S F Susceptible [facility] URINE CULTURE - [facility] Ceftolozane/Tazobactam S F Susceptible [facility] URINE CULTURE - [facility] Ciprofloxacin S [...] CULTURE - [facility] Tigecycline S F Susceptible [facility] URINE CULTURE - [facility] Tobramycin S F Susceptible [facility] URINE CULTURE - [facility] Ampicillin/Sulbactam S F Susceptible [facility] URINE CULTURE - [facility] Cefazolin S F Susceptible [facility] URINE CULTURE - [facility] Cefepime S F Susceptible [facility] URINE CULTURE - [facility] Ceftriaxone S F Susceptible [facility] URINE CULTURE - [facility] Cefuroxime S F Susceptible [facility] URINE CULTURE - [facility] Piperacillin/Tazobactam S F Susceptible [facility] URINE CULTURE - [facility] Trimethoprim/Sulfa R F Resistant [facility] Urine Cultureon 07-22-2024 Bacteria identified Cx Nom (U) ORGANISM: Escherichia coli (O:ESCCOL) [place] Count >100,000 Aerobic SYLVIA Charge (NMIC56) - [...] RESISTANT TO ALL B-LACTAM DRUGS. PERFORMED BY: [place] [address] PATHOLOGIST PLUMBING DESIGNER JUANA CLIFFORD M.D. Normal [facility] Comment on above: Performed By: #### C UU #### [facility] [address] [place] [address] Urine cultureOrdered By: Greg Soares on 07-22-2024 Bacteria identified Cx Nom (U) Escherichia coli Abnormal [facility] Orders Onlyon 07-21-2024 Orders Only [id number] Lluvia Moreno 1940 F Date Provider Department Center 07/21/2024 HARI MCLEOD [facility] CARD [facility] Family History Problem Relation Age of Onset Colon cancer Father Coronary artery disease Brother Hypertension Brother Kidney cancer Brother Family Status - Relation Status Age at Father Brother Normal [facility] BASIC METABOLIC PANELon 05-18 Calcium [Mass/Vol] 8.9 mg/dL Normal 8.6-10.4 [facility] Comment on above: Performed By: #### 6 399, 12196, 304, 3194 #### [facility] [address] [place] [address], [address] [place] [id number] Sales/Marketing: Robbie Garnica MD Chloride [Moles/Vol] 108 mmol/L Normal 98-110 [facility] Comment on above: Performed By: #### 6 399, 58391, 811, 9980 #### [facility] of [address], [address] [place] [address] Sales/Marketing: Robbie Garnica MD CO2 [Moles/Vol] 26 mmol/L Normal 20-32 [facility] Comment on above: Performed By: #### 6 399, 24727, 496, 7600 #### [facility] of [address], [address] [place] [address] Sales/Marketing: Robbie Garnica MD Creatinine [Mass/Vol] 1.15 mg/dL High 0.60-0.95 [facility] Comment on above: Performed By: #### 6 399, 72584, 496, 7600 #### [facility] of [place] [address] Sales/Marketing: Robbie Garnica MD GFR/1.73 sq M.predicted among non-blacks MDRD (S/P/Bld) [Vol rate/Area] 48 mL/min/{1.73_m2} Low > OR = 60 [facility] Comment on above: Performed By: #### 6 399, 90989, 496, 7600 #### [facility] [place] [address] Sales/Marketing: Robbie Garnica MD Glucose [Mass/Vol] 96 mg/dL Normal 65-99 [facility] Comment on above: Result Comment: Fasting reference interval Performed By: #### 6 399, 42160, 496, 7600 #### [facility] [place] [address] Sales/Marketing: Robbie Garnica MD Potassium [Moles/Vol] 5.1 mmol/L Normal 3.5-5.3 [facility] Comment on above: Performed By: #### 6 399, 04088, 496, 7600 #### [facility] of [place] [address] Sales/Marketing: Robbie Garnica MD Sodium [Moles/Vol] 142 mmol/L Normal 135-146 [facility] Comment on above: Performed By: #### 6 399, 07510, 496, 7600 #### [facility] of [address], [address] [place] [address] Sales/Marketing: Robbie Garnica MD Urea nitrogen [Mass/Vol] 33 mg/dL High - [facility] Comment on above: Performed By: #### 6 399, 88671, 496, 7600 #### [facility] of [place] [address] Sales/Marketing: Robbie Garnica MD Urea nitrogen/Creatinin e [Mass ratio] 29 mg/mg High 08-07 [facility] Comment on above: Performed By: #### 6 399, 36314, 496, 7600 #### [facility] of [place] [address] Sales/Marketing: Robbie Garnica MD CBC (INCLUDES DIFF/PLT)on Basophils (Bld) [#/Vol] 0.039 10*3/uL Normal 0-200 [facility] Comment on above: Performed By: #### 6 399, 32795, 496, 7600 #### [facility] of [place] [address] Sales/Marketing: Robbie Garnica MD Basophils/100 WBC (Bld) 0.6 % Normal [facility] Comment on above: Performed By: #### 6 399, 54206, 496, 7600 #### [facility] of [place] [address] Sales/Marketing: Robbie Garnica MD Eosinophils (Bld) [#/Vol] 0.241 10*3/uL Normal 15-500 [facility] Comment on above: Performed By: #### 6 399, 36394, 496, 7600 #### [facility] of [place] [address] Sales/Marketing: Robbie Garnica MD Eosinophils/100 WBC (Bld) 3.7 % Normal [facility] Comment on above: Performed By: #### 6 399, 37922, 496, 7600 #### [facility] of [place] [address] Sales/Marketing: Robbie Garnica MD Erythrocyte distribution width (RBC) [Ratio] 12.5 % Normal 11.0-15.0 [facility] Comment on above: Performed By: #### 6 399, 92784, 496, 7600 #### [facility] of [place] [address] Sales/Marketing: Robbie Garnica MD Hematocrit (Bld) [Volume fraction] 38.9 % Normal 35.0-45.0 [facility] Comment on above: Performed By: #### 6 399, 31836, 496, 7600 #### [facility] of [place] [address] Sales/Marketing: Robbie Garnica MD Hemoglobin (Bld) [Mass/Vol] 12.6 g/dL Normal 11.7-15.5 [facility] Comment on above: Performed By: #### 6 399, 57033, 496, 7600 #### [facility] of [place] [address] Sales/Marketing: Robbie Garnica MD Lymphocytes (Bld) [#/Vol] 1.053 10*3/uL Normal 850-3900 [facility] Comment on above: Performed By: #### 6 399, 19906, 496, 7600 #### [facility] of [place] [address] Sales/Marketing: Robbie Garnica MD Lymphocytes/100 WBC (Bld) 16.2 % Normal [facility] Comment on above: Performed By: #### 6 399, 40812, 496, 7600 #### [facility] of [place] [address] Sales/Marketing: Robbie Garnica MD MCH (RBC) [Entitic mass] 30.4 pg Normal 27.0-33.0 [facility] Comment on above: Performed By: #### 6 399, 85745, 496, 7600 #### [facility] of [place] [address] Sales/Marketing: Robbie Garnica MD MCHC (RBC) [Mass/Vol] 32.4 [...] clinical condition. Performed By: #### 6 399, 58859, 496, 7600 #### [facility] of [place] [address] Sales/Marketing: Robbie Garnica MD MCV (RBC) [Entitic vol] 93.7 fL Normal 80.0-100.0 [facility] Comment on above: Performed By: #### 6 399, 19263, 496, 7600 #### [facility] [place] [address] Sales/Marketing: Robbie Garnica MD Monocytes (Bld) [#/Vol] 0.475 10*3/uL Normal 200-950 [facility] Comment on above: Performed By: #### 6 399, 05332, 496, 7600 #### [facility] of [place] [address] Sales/Marketing: Robbie Garnica MD Monocytes/100 WBC (Bld) 7.3 % Normal [facility] Comment on above: Performed By: #### 6 399, 89188, 496, 7600 #### [facility] of [place] [address] Sales/Marketing: Robbie Garnica MD Neutrophils (Bld) [#/Vol] 4.693 10*3/uL Normal 9538-3589 [facility] Comment on above: Performed By: #### 6 399, 14184, 496, 7600 #### [facility] [place] [address] Sales/Marketing: Robbie Garnica MD Neutrophils/100 WBC (Bld) 72.2 % Normal [facility] Comment on above: Performed By: #### 6 399, 04983, 496, 7600 #### [facility] [place] [address] Sales/Marketing: Robbie Garnica MD Platelet mean volume (Bld) [Entitic vol] 11.4 fL Normal 7.5-12.5 [facility] Comment on above: Performed By: #### 6 399, 15871, 496, 7600 #### [facility] [place] [address] Sales/Marketing: Robbie Garnica MD Platelets (Bld) [#/Vol] 186 10*3/uL Normal 140-400 [facility] Comment on above: Performed By: #### 6 399, 18655, 496, 7600 #### [facility] [place] [address] Sales/Marketing: Robbie Garnica MD RBC (Bld) [#/Vol] 4.15 10*6/uL Normal 3.80-5.10 [facility] Comment on above: Performed By: #### 6 399, 64043, 496, 7600 #### [facility] of [place] [address] Sales/Marketing: Robbie Garnica MD WBC (Bld) [#/Vol] 6.5 10*3/uL Normal 3.8-10.8 [facility] Comment on above: Performed By: #### 6 399, 64398, 496, 7600 #### [facility] [place] [address] Sales/Marketing: Robbie Garnica MD HEMOGLOBIN A1con 06-07-2024 HbA1c [...] for children. Performed By: #### 6 399, 52859, 496, 7600 #### [facility] [address], [address] [place] [address] Sales/Marketing: Robbie Garnica MD LIPID PANEL, [facility] 05-18 Cholesterol [Mass/Vol] 118 mg/dL Normal <200 [facility] Comment on above: Order Comment: FASTI NG:YES FASTING: YES Performed By: #### 6 399, 55935, 496, 7600 #### [facility] [address], [address] [place] [address] Sales/Marketing: Robbie Garnica MD Cholesterol in HDL [Mass/Vol] 54 mg/dL Normal > OR = 50 [facility] Comment on above: Order Comment: FASTI NG:YES FASTING: YES Performed By: #### 6 399, 17610, 496, 7600 #### [facility] [address], [address] [place] [address] Sales/Marketing: Robbie Garnica MD Cholesterol in LDL [Mass/Vol] [...] LDL-C. Damion SS et al. CONSUELO. 2013;310(19): 5785-4247 (http://education.Swank.Nezasa/faq/NEV972) Performed By: #### 6 399, 50195, 496, 7600 #### [facility] [address], [address] [place] [address] Sales/Marketing: Robbie Garnica MD Cholesterol.total/ Cholesterol in HDL [Mass ratio] 2.2 {ratio} Normal <5.0 [facility] Comment on above: Order Comment: FASTI NG:YES FASTING: YES Performed By: #### 6 399, 11946, 496, 7600 #### [facility] [address], [address] [place] [address] Sales/Marketing: Robbie Garnica MD NON HDL CHOLESTEROL 64 mg/dL (calc) Normal <130 [facility] Comment on above: Order Comment: FASTI NG:YES FASTING: YES Result Comment: For patients with diabetes plus 1 major ASCVD risk factor, treating to a non-HDL-C goal of <100 mg/dL (LDL-C of <70 mg/dL) is considered a therapeutic option. Performed By: #### 6 399, 84387, 496, 7600 #### [facility] [address], [address] [place] [address] Sales/Marketing: Robbie Garnica MD Triglyceride [Mass/Vol] 66 mg/dL Normal <150 [facility] Comment on above: Order Comment: FASTI NG:YES FASTING: YES Performed By: #### 6 399, 24580, 496, 7600 #### [facility] [address], [address] [place] [address] Sales/Marketing: Robbie Garnica MD VITAMIN D,25-OH,TOTAL,IAon 0 06-07-2024 [...] D, (D2,D3), LC/MS/MS is recommended: order code 77315 (patients >2yrs). See Note 1 Note 1 For additional information, please refer to http://education.Swank.Nezasa/faq/LBQ995 (This link is being provided for informational/ educational purposes only.) Performed By: #### 6 399, 01813, 511, 9452 #### [facility] [address] [facility], [address] [place] [address] Sales/Marketing: Robbie Garnica MD ALL T3 FREEon 05-23-2024 Free T3 [Mass/Vol] 2.72 pg/mL 2.18 - 3. 98 pg/mL [facility] ALL THYROID STIM HORMONEon 0 05-23-2024 Interpretation and review of laboratory results Abnormal [facility] TSH Qn 4.74 m[IU]/L High [facility] ALL THYROXINE (T4) FREEon Free T4 [Mass/Vol] 0.98 ng/dL 0.76 - 1. 46 ng/dL [facility] No Panel Informationon 05-23 [facility] 36on 01-26-2024 36 Spoke with patient a nd made her aware to start taking full tablet of spironolactone starting tomorrow per Dr. Walker. Advised her to still cut lisinopril tablet in half. She will continue to track BP's and call us with updates. Patient verbalized understanding. [place] 36 Patient called to marcello marquez you aware that since decreasing spironolactone and lisinopril yesterday her BP has been: 147/92 160/108 172/118 I told her to take the other half tablet of spironolactone right now. Any other recommendations? Please advise. Thanks [place] Office Visiton 01-25-2024 Follow-up visit [id number] Lluvia Moreno Sergio 1940 F Date Provider Department Center 01/25/2024 [id number]-HRESWPCLAUDIO WALKER Family History Problem Relation Age of Onset Colon cancer Father Coronary artery disease Brother Hypertension Brother Kidney cancer Brother Family Status - Relation Status Age at Father Brother Level of Service:38310 [place] OFFICE/OUTPATIENT ESTABLISHED MOD MDM 30 MIN Reason for Visit and Comments: Atrial Fibrillation [80] - Had thyroid function last month. 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 Pacemaker Check [337] - Per device rep, all looks good, no events . Normal [facility] ALL THYROXINE (T4) FREEon Free T4 [Mass/Vol] 1.02 ng/dL 0.76 - 1. 46 ng/dL [facility] FREE T3on 05-14-2022 FREE T3 2.54 pg/mlL Normal 2.18-3.98 [facility] Comment on above: Performed By: #### F T3, TSH #### [facility] [address] [address] [address] Hugo Yang FREE T4on 05-14-2022 Free T4 [Mass/Vol] 1.09 ng/dL Normal 0.76-1.46 [facility] Comment on above: Performed By: #### F T4 #### [facility] [address] [address] [address] Hugo Yang TSHon 05-14-2022 TSH 3.015 uIU/mL Normal 0.358-3.740 [facility] Comment on above: Performed By: #### F T3, TSH #### [facility] [address] [place] [address] HEAD WO CONon [...] by: JOEL ANDINO Date: 2022-03-19 10:33 Normal [facility] XR DEXA BONE DENSITYon 03-19 [...] by: JOEL ANDINO Date: 2022-03-19 11:11 Normal [facility] ECHOCARDIO M/2D COMPLETEon 1 02-22-2021 ECHOCARDIO M/2D COMPLETE Patient: LLUVIA MORENO Exam Date: 12/23/2021 : 1940 Gender:F Ordering : [facility] Admission #: [id number] Family : DR OLE YANG M.D. Order #: [id number] CLICK HERE TO VIEW EXAM ECHOCARDIOGRAM REPORT [...] Lucas M.D. on 12/24/2021 at 15:56 Normal [facility] FREE T3on 11-25-2021 FREE T3 1.97 pg/mlL Critically low 2.18-3.98 [facility] Comment on above: Performed By: #### F T3, TSH #### [facility] [address] [place] [address] Dr. Hugo Yang FREE T4on 11-25-2021 Free T4 [Mass/Vol] 1.00 ng/dL Normal 0.76-1.46 [facility] Comment on above: Performed By: #### F T3, TSH #### [facility] [address] [address] [address] Hguo Yang LIVER PROFILEon 11-25-2021 Albumin [Mass/Vol] 3.9 g/dL Normal 3.4-5.0 [facility] Comment on above: Performed By: #### F T3, TSH #### [facility] [address] [place] [address] Dr. Hugo Yang Albumin/Globulin [Mass ratio] 1.1 {ratio} Normal [facility] Comment on above: Performed By: #### F T3, TSH #### [facility] [address] [address] [address] Hugo Yang ALP [Catalytic activity/Vol] 94 U/L Normal 46-116 [facility] Comment on above: Performed By: #### F T3, TSH #### [facility] [address] [place] [address] Dr. Hugo Yang ALT [Catalytic activity/Vol] 41 U/L Normal 14-59 [facility] Comment on above: Performed By: #### F T3, TSH #### [facility] [address] [address] [address] Hugo Yang AST [Catalytic activity/Vol] 25 U/L Normal 15-37 [facility] Comment on above: Performed By: #### F T3, TSH #### [facility] [address] [place] [address] Dr. Hugo Yang BILI, CONJUGATED 0.2 mg/dL Normal 0.0-0.2 [facility] Comment on above: Performed By: #### F T3, TSH #### [facility] [address] [place] [address] Dr. Hugo Yang Bilirubin [Mass/Vol] 0.8 mg/dL Normal 0.2-1.0 [facility] Comment on above: Performed By: #### F T3, TSH #### [facility] [address] [place] [address] Dr. Hugo Yang Globulin (S) [Mass/Vol] 3.5 g/dL Normal [facility] Comment on above: Performed By: #### F T3, TSH #### [facility] [address] [place] [address] Dr. Hugo Yang Protein [Mass/Vol] 7.4 g/dL Normal 6.4-8.2 [facility] Comment on above: Performed By: #### F T3, TSH #### [facility] [address] [place] [address] Dr. Hugo Yang TSHon 11-25-2021 TSH 2.892 uIU/mL Normal 0.358-3.740 [facility] Comment on above: Performed By: #### F T3, TSH #### [facility] [address] [place], [place] [address] Dr. Hugo Yang US PIPER DOP LEG [...] JOEL ANDINO Date: 2021-09-04 12:18 Normal [facility] Cardiovascular Lab Reporton 08-21-2021 Cardiovascular Lab Report [facility]: [id number] Physician: Keanu Islas MD Department of Service Date: 08/21/2021 Medicine Birthdate: 1940 Division of Room #: CC Cardiology Adult Cardiovascular Services [facility] [place] [place] [address] [facility] [place] [address] Cardiovascular Laboratory Report TBIV-UPGRADE PROCEDURE NOTE DATE OF PROCEDURE: 08/21/2021 PERFORMING PHYSICIAN: Dr. Keanu Islas CONSENT: Patient LOCATION: EP Lab PROCEDURE PERFORMED: 1. 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 2. Explantation of previously implanted pacemaker generator ([employer]). 3. RV pacing lead and extraction. [...] proceeded to place an LV lead. The [place] sheath was advanced, and with the wire, the CS os was accessed. However there was no support and so I used an amplatz wire for support. The inner cannula was then advanced into the CS body. The inner cannula was then removed and venogram was performed. Hudson catheter was advanced and venogram was performed. This revealed a good posterolateral vein, but other than that, an anterior vein was noted, but no significant other branches were seen. After this, a 0.014 wire was passed through the Hudson-Sarah catheter and traversed into the posterolateral vein. However, the wire was short enough and we could not get a good grasp at the end. So, thereafter, the Hudson-Sarah catheter was removed and 90-degree inner cannula was used to access the vein. A longer 0.014 wire tracked into the vein. Over this, a [employer] straight lead was advanced and placed [...] The inner cannulas were split and the Saver[place] sheath was slit and the lead secured [...] t (more content not included)... Normal [facility] Covid-19 PCR ([facility])on SARS-CoV-2 (COVID-19) RNA SONA+probe Ql (Unsp spec) Not detected Normal NOT DETECTED [facility] Comment on above: Result Comment: When [...] for this test is supported by the Tape Folding Machine Operator of Health and Human Service's declaration that [...] used). Performed By: #### B MP #### [facility] [address] [place] [address] Dr. Hugo Yang HEMOGRAM AND PLATELon 2021 Hematocrit (Bld) [Volume fraction] 43.7 % Normal 36.0-48.0 [facility] Comment on above: Performed By: #### C BC #### [facility] [address] [place] [address] Dr. Hugo Yang Hemoglobin (Bld) [Mass/Vol] 14.2 g/dL Normal 12.0-16.0 [facility] Comment on above: Performed By: #### C BC #### [facility] [address] [place] [address] Dr. Hugo Yang MCH (RBC) [Entitic mass] 31.0 pg Normal 26.7-34.0 [facility] Comment on above: Performed By: #### C BC #### [facility] [address] [place] [address] Dr. Hugo Yang MCHC (RBC) [Mass/Vol] 32.5 g/dL Normal 29.9-35.2 [facility] Comment on above: Performed By: #### C BC #### [facility] [address] [place] [address] Dr. Hugo Yang MCV (RBC) [Entitic vol] 95.4 fL Normal 81.0-99.0 [facility] Comment on above: Performed By: #### C BC #### [facility] [address] [place] [address] Dr. Hugo Yang PLT 161 103/ul Normal 150-450 [facility] Comment on above: Performed By: #### C BC #### [facility] [address] [place] [address] Dr. Hugo Yang RBC 4.58 106/ul Normal 4.20-5.40 [facility] Comment on above: Performed By: #### C BC #### [facility] [address] [place] [address] Dr. Hugo Yang WBC 6.9 103/ul Normal 4.0-11.0 [facility] Comment on above: Performed By: #### C BC #### [facility] [address] [place] [address] Dr. Hugo Yang PROF CHEM 8 (BAS METB)on Anion gap [Moles/Vol] 11.5 mmol/L Normal [facility] Comment on above: Performed By: #### B MP #### [facility] [address] [address] [address] Hugo Yang Calcium [Mass/Vol] 9.6 mg/dL Normal 8.5-10.1 [facility] Comment on above: Performed By: #### B MP #### [facility] [address] [address] [address] Hugo Yang Chloride [Moles/Vol] 104 mmol/L Normal 98-107 [facility] Comment on above: Performed By: #### B MP #### [facility] [address] [address] [address] Hugo Yang CO2 [Moles/Vol] 30.6 mmol/L Normal 21.0-32.0 [facility] Comment on above: Performed By: #### B MP #### [facility] [address] [address] [address] Hugo Yang Creatinine [Mass/Vol] 1.24 mg/dL Critically high 0.55-1.02 [facility] Comment on above: Performed By: #### B MP #### [facility] [address] [address] [address] Hugo Yang EGFR-AF CITIZ[place] 51 mL/min/1.73m2 Critically low >=60 [facility] Comment on above: Performed By: #### B MP #### [facility] [address] [address] [address] Hugo Yang EGFR-NON AF CITIZEN [place] 42 mL/min/1.73m2 Critically low >=60 [facility] Comment on above: Performed By: #### B MP #### [facility] [address] [address] [address] Hugo Yang Glucose [Mass/Vol] 111 mg/dL Critically high 74-106 [facility] Comment on above: Performed By: #### B MP #### [facility] [address] [address] [address] Hugo Yang Potassium [Moles/Vol] 5.1 mmol/L Normal 3.5-5.1 [facility] Comment on above: Performed By: #### B MP #### [facility] [address] [place] [address] Dr. Hugo Yang Sodium [Moles/Vol] 141 mmol/L Normal 136-145 [facility] Comment on above: Performed By: #### B MP #### [facility] [address] [place] [address] Dr. Hugo Yang Urea nitrogen [Mass/Vol] 31.0 mg/dL Critically high 7.0-18.0 [facility] Comment on above: Performed By: #### B MP #### [facility] [address] [place] [address] Dr. Hugo Yang Urea nitrogen/Creatinin e [Mass ratio] 25.0 mg/mg Normal [facility] Comment on above: Performed By: #### B MP #### [facility] [address] [place] [address] Dr. Hugo Yang BNPon 07-30-2021 Natriuretic peptide B (Bld) [Mass/Vol] 1994.0 pg/mL Critically high <=1,800.0 [facility] Comment on above: Performed By: #### C BC #### [facility] [address] [place] [address] Dr. Hugo Yang PROF CHEM 8 (BAS METB)on Anion gap [Moles/Vol] 11.3 mmol/L Normal [facility] Comment on above: Performed By: #### C BC #### [facility] [address] [place] [address] Dr. Hugo Yang Calcium [Mass/Vol] 9.7 mg/dL Normal 8.5-10.1 [facility] Comment on above: Performed By: #### C BC #### [facility] [address] [place] [address] Dr. Hugo Yang Chloride [Moles/Vol] 104 mmol/L Normal 98-107 [facility] Comment on above: Performed By: #### C BC #### [facility] [address] [address] [address] Hugo Yang CO2 [Moles/Vol] 29.6 mmol/L Normal 21.0-32.0 [facility] Comment on above: Performed By: #### C BC #### [facility] [address] [address] [address] Hugo Yang Creatinine [Mass/Vol] 1.28 mg/dL Critically high 0.55-1.02 [facility] Comment on above: Performed By: #### C BC #### [facility] [address] [address] [address] Hugo Yang EGFR-AF [place]IZ[place] 49 mL/min/1.73m2 Critically low >=60 [facility] Comment on above: Performed By: #### C BC #### [facility] [address] [place] [address] Dr. Hguo Yang EGFR-NON AF CITIZEN [place] 40 mL/min/1.73m2 Critically low >=60 [facility] Comment on above: Performed By: #### C BC #### [facility] [address] [address] [address] Hugo Yang Glucose [Mass/Vol] 119 mg/dL Critically high 74-106 [facility] Comment on above: Performed By: #### C BC #### [facility] [address] [address] [address] Hugo Yang Potassium [Moles/Vol] 4.9 mmol/L Normal 3.5-5.1 [facility] Comment on above: Performed By: #### C BC #### [facility] [address] [address] [address] Hugo Yang Sodium [Moles/Vol] 140 mmol/L Normal 136-145 [facility] Comment on above: Performed By: #### C BC #### [facility] [address] [address] [address] Hugo Yang Urea nitrogen [Mass/Vol] 30.0 mg/dL Critically high 7.0-18.0 [facility] Comment on above: Performed By: #### C BC #### [facility] [address] [place] [address] Dr. Hugo Yang Urea nitrogen/Creatinin e [Mass ratio] 23.4 mg/mg Normal [facility] Comment on above: Performed By: #### C BC #### [facility] [address] [place] [address] Dr. Hugo Yang FREE T3on 06-28-2021 FREE T3 2.64 pg/mlL Normal 2.18-3.98 [facility] Comment on above: Performed By: #### F T3, TSH #### [facility] [address] [place] [address] Dr. Hugo Yang FREE T4on 06-28-2021 Free T4 [Mass/Vol] 1.19 ng/dL Normal 0.76-1.46 [facility] Comment on above: Performed By: #### B MP #### [facility] [address] [place] [address] Dr. Hugo Yang LIVER PROFILEon 06-28-2021 Albumin [Mass/Vol] 3.8 g/dL Normal 3.4-5.0 [facility] Comment on above: Performed By: #### F T3, TSH #### [facility] [address] [place] [address] Dr. Hugo Yang Albumin/Globulin [Mass ratio] 1.2 {ratio} Normal [facility] Comment on above: Performed By: #### F T3, TSH #### [facility] [address] [place] [address] Dr. Hugo Yang ALP [Catalytic activity/Vol] 88 U/L Normal 46-116 [facility] Comment on above: Performed By: #### F T3, TSH #### [facility] [address] [place] [address] Dr. Hugo Yang ALT [Catalytic activity/Vol] 54 U/L Normal 14-59 [facility] Comment on above: Performed By: #### F T3, TSH #### [facility] [address] [place] [address] Dr. Hugo Yang AST [Catalytic activity/Vol] 36 U/L Normal 15-37 [facility] Comment on above: Performed By: #### F T3, TSH #### [facility] [address] [address] [address] Hugo Yang BILI, CONJUGATED 0.3 mg/dL Critically high 0.0-0.2 [facility] Comment on above: Performed By: #### F T3, TSH #### [facility] [address] [place] [address] Dr. Hugo Yang Bilirubin [Mass/Vol] 0.9 mg/dL Normal 0.2-1.0 [facility] Comment on above: Performed By: #### F T3, TSH #### [facility] [address] [place] [address] Dr. Hugo Yang Globulin (S) [Mass/Vol] 3.3 g/dL Normal [facility] Comment on above: Performed By: #### F T3, TSH #### [facility] [address] [place] [address] Dr. Hugo Yang Protein [Mass/Vol] 7.1 g/dL Normal 6.4-8.2 [facility] Comment on above: Performed By: #### F T3, TSH #### [facility] [address] [place] [address] Dr. Hugo Yang PROF CHEM 8 (BAS METB)on Anion gap [Moles/Vol] 13.6 mmol/L Normal [facility] Comment on above: Performed By: #### B MP #### [facility] [address] [place] [address] Dr. Hugo Yang Calcium [Mass/Vol] 9.5 mg/dL Normal 8.5-10.1 [facility] Comment on above: Performed By: #### B MP #### [facility] [address] [place] [address] Dr. Hugo Yang Chloride [Moles/Vol] 105 mmol/L Normal 98-107 [facility] Comment on above: Performed By: #### B MP #### [facility] [address] [place] [address] Dr. Hugo Yang CO2 [Moles/Vol] 28.5 mmol/L Normal 21.0-32.0 [facility] Comment on above: Performed By: #### B MP #### [facility] [address] [address] [address] Hugo Yang Creatinine [Mass/Vol] 1.05 mg/dL Critically high 0.55-1.02 [facility] Comment on above: Performed By: #### B MP #### [facility] [address] [address] [address] Hugo Yang EGFR-AF [place]IZ[place] >60 Normal >=60 [facility] Comment on above: Performed By: #### B MP #### [facility] [address] [address] [address] Hugo Yang EGFR-NON AF [place]IZEN [place] 51 mL/min/1.73m2 Critically low >=60 [facility] Comment on above: Performed By: #### B MP #### [facility] [address] [address] [address] Hugo Yang Glucose [Mass/Vol] 113 mg/dL Critically high 74-106 [facility] Comment on above: Performed By: #### B MP #### [facility] [address] [address] [address] Hugo Yang Potassium [Moles/Vol] 5.1 mmol/L Normal 3.5-5.1 [facility] Comment on above: Performed By: #### B MP #### [facility] [address] [address] [address] Hugo Yang Sodium [Moles/Vol] 142 mmol/L Normal 136-145 [facility] Comment on above: Performed By: #### B MP #### [facility] [address] [address] [address] Hugo Yang Urea nitrogen [Mass/Vol] 29.0 mg/dL Critically high 7.0-18.0 [facility] Comment on above: Performed By: #### B MP #### [facility] [address] [address] [address] Hugo Yang Urea nitrogen/Creatinin e [Mass ratio] 27.6 mg/mg Normal [facility] Comment on above: Performed By: #### B MP #### [facility] [address] [place], [place] [address] Dr. Hugo Yang TSHon 06-28-2021 TSH 3.067 uIU/mL Normal 0.358-3.740 [facility] Comment on above: Performed By: #### F T3, TSH #### [facility] [address], [place] [address] Dr. Hugo Yang TSH RANGE SEE BELOW Normal [facility] Comment on above: Result Comment: <0.3 4 UIU/ml HYPERTHYROID 0.34-5.60 UIU/ml EUTHYROID >5.60 UIU/ml HYPOTHYROID Performed By: #### F T3, TSH #### [facility] [address], [place] [address] Dr. Hugo Yang Cardiovascular Lab Reporton 06-21-2021 Cardiovascular Lab Report [facility] Patient Name: [facility] MR #: [id number] Physician: Elizabeth Tejeda, Department of M.D. Medicine Service Date: 06/20/2021 Division of Birthdate: 1940 Cardiology Room #: [facility] Cardiovascular Services [address] [place] [address] Cardiovascular Laboratory Report FINAL IMPRESSIONS: 1. 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 2. Otherwise nonobstructive coronary arteries angiographically. 3. Moderately reduced global left ventricular systolic function by noninvasive imaging. 4. Normal right-sided heart pressures and wedge pressure. 5. Grdn-iu-fscidiig systemic hypertension. 6. Mildly reduced cardiac output/cardiac [...] bilateral selective coronary angiography, placement of a 6-[place] MynxGrip closure device. METHODS: After risks, benefits, [...] femoral vein and artery was obtained. A 6-[place] 11 cm sheath was placed in each. [...] the procedure. All catheters were removed. A 6-[place] MynxGrip closure device was deployed per protocol [...] E (more content not included)... Normal [facility] BNPon 06-18-2021 Natriuretic peptide B (Bld) [Mass/Vol] 3442.0 pg/mL Critically high <=1,800.0 [facility] Comment on above: Result Comment: TEST REPEATED CRITICAL VALUE VERIFIED Performed By: #### L IPID, BNP, CMP #### [facility] [address] [place] [address] Dr. Hugo Yang CBC AUTO DIFFon 06-18-2021 BASO # 0.1 103/ul Normal 0.0-0.1 [facility] Comment on above: Performed By: #### C BC #### [facility] [address] [address] [address] Hugo Yang Basophils/100 WBC (Bld) 0.5 % Normal 0.2-2.0 [facility] Comment on above: Performed By: #### C BC #### [facility] [address] [address] [address] Hugo Yang EO # 0.3 103/ul Normal 0.0-0.7 [facility] Comment on above: Performed By: #### C BC #### [facility] [address] [place] [address] Dr. Hugo Yang Eosinophils/100 WBC (Bld) 2.3 % Normal 0.9-7.0 [facility] Comment on above: Performed By: #### C BC #### [facility] [address] [place] [address] Dr. Hugo Yang Erythrocyte distribution width (RBC) [Ratio] 14.5 % Normal 11.0-15.0 [facility] Comment on above: Performed By: #### C BC #### [facility] [address] [place] [address] Dr. Hugo Yang Hematocrit (Bld) [Volume fraction] 42.3 % Normal 36.0-48.0 [facility] Comment on above: Performed By: #### C BC #### [facility] [address] [place] [address] Dr. Hugo Yang Hemoglobin (Bld) [Mass/Vol] 13.5 g/dL Normal 12.0-16.0 [facility] Comment on above: Performed By: #### C BC #### [facility] [address] [place] [address] Dr. Hugo Yang IG # 0.05 10e3/ul Critically high 0.00-0.03 [facility] Comment on above: Performed By: #### C BC #### [facility] [address] [place] [address] Dr. Hugo Yang IG % 0.4 % Normal 0.0-0.5 [facility] Comment on above: Performed By: #### C BC #### [facility] [address] [place] [address] Dr. Hugo Yang LYMPH # 1.5 103/ul Normal 1.2-3.8 [facility] Comment on above: Performed By: #### C BC #### [facility] [address] [place] [address] Dr. Hugo Yang Lymphocytes/100 WBC (Bld) 12.9 % Critically low 20.5-60.0 [facility] Comment on above: Performed By: #### C BC #### [facility] [address] [place] [address] Dr. Hugo Yang MANUAL DIFF REQ NO Normal [facility] Comment on above: Performed By: #### C BC #### [facility] [address] [address] [address] Hugo Yang MCH (RBC) [Entitic mass] 30.4 pg Normal 26.7-34.0 [facility] Comment on above: Performed By: #### C BC #### [facility] [address] [place] [address] Dr. Hugo Yang MCHC (RBC) [Mass/Vol] 31.9 g/dL Normal 29.9-35.2 [facility] Comment on above: Performed By: #### C BC #### [facility] [address] [place] [address] Dr. Hugo Yang MCV (RBC) [Entitic vol] 95.3 fL Normal 81.0-99.0 [facility] Comment on above: Performed By: #### C BC #### [facility] [address] [place] [address] Dr. Hugo Yang MONO # 0.7 103/ul Normal 0.3-0.8 [facility] Comment on above: Performed By: #### C BC #### [facility] [address] [place] [address] Dr. Hugo Yang Monocytes/100 WBC (Bld) 6.2 % Normal 1.7-12.0 [facility] Comment on above: Performed By: #### C BC #### [facility] [address] [place] [address] Dr. Hugo Yang NEUT # 8.8 103/ul Critically high 1.4-6.5 [facility] Comment on above: Performed By: #### C BC #### [facility] [address] [place] [address] Dr. Hugo Yang Neutrophils/100 WBC (Bld) 77.7 % Critically high 43.0-75.0 [facility] Comment on above: Performed By: #### C BC #### [facility] [address] [address] [address] Hugo Yang Platelet mean volume (Bld) [Entitic vol] 10.4 fL Normal 9.5-13.5 [facility] Comment on above: Performed By: #### C BC #### [facility] [address] [address] [address] Hugo Yang PLT 199 103/ul Normal 150-450 [facility] Comment on above: Performed By: #### C BC #### [facility] [address] [address] [address] Hugo Yang RBC 4.44 106/ul Normal 4.20-5.40 [facility] Comment on above: Performed By: #### C BC #### [facility] [address] [address] [address] Hugo Yang WBC 11.3 103/ul Critically high 4.0-11.0 [facility] Comment on above: Performed By: #### C BC #### [facility] [address] [address] [address] Hugo [facility]on SARS-CoV-2 (COVID-19) RNA SONA+probe Ql (Unsp spec) Not detected Normal NOT DETECTED [facility] Comment on above: Result Comment: This test is not yet approved or cleared by the [place] FDA. When there are no FDA-approved or cleared tests available, and other criteria are met, FDA can make tests available under an emergency access mechanism called an Emergency Use Authorization (EUA). The EUA for this test is supported by the Tape Folding Machine Operator of Health and Human Service's (HHS's) declaration [...] Performed By: #### F T3, TSH #### [facility] [address] [address] [address] Hugo Yang LIPID PROFILEon 06-18-2021 CHOL-HDL RATIO NORM SEE BELOW Normal [facility] Comment on above: Result Comment: 3.3 - 4.4 LOW RISK 4.4 - 7.1 AVERAGE RISK 7.1 - 11.0 MODERATE RISK >11.0 HIGH RISK Performed By: #### L IPID, BNP, CMP #### [facility] [address] [address] [address] Hugo Yang Cholesterol [Mass/Vol] 127 mg/dL Normal <=200 [facility] Comment on above: Performed By: #### L IPID, BNP, CMP #### [facility] [address] [place] [address] Dr. Hugo Yang Cholesterol in HDL [Mass/Vol] 60 mg/dL Normal 40-60 [facility] Comment on above: Performed By: #### L IPID, BNP, CMP #### [facility] [address] [place] [address] Dr. Hugo Yang Cholesterol in LDL [Mass/Vol] 47.4 mg/dL Normal [facility] Comment on above: Performed By: #### L IPID, BNP, CMP #### [facility] [address] [place] [address] Dr. Hugo Yang Cholesterol.total/ Cholesterol in HDL [Mass ratio] 2.1 {ratio} Normal [facility] Comment on above: Performed By: #### L IPID, BNP, CMP #### [facility] [address] [place] [address] Dr. Hugo Yang HDL NORMAL > or = 60 mg/dl - LO W CARDIOVASCULAR RISK <40 mg/dl - HIGH CARDIOVASCULAR RISK Normal [facility] Comment on above: Performed By: #### L IPID, BNP, CMP #### [facility] [address] [place] [address] Dr. Hugo Yang LDL CALC NORMAL SEE BELOW Normal [facility] Comment on above: Result Comment: <100 mg/dl OPTIMAL 100 - 129 mg/dl NEAR OR ABOVE OPTIMAL 130 - 159 mg/dl BORDERLINE HIGH 160 - 189 mg/dl HIGH >190 mg/dl VERY HIGH Performed By: #### L IPID, BNP, CMP #### [facility] [address] [address] [address] Hugo Yang Triglyceride [Mass/Vol] 98 mg/dL Normal <=150 [facility] Comment on above: Performed By: #### L IPID, BNP, CMP #### [facility] [address] [address] [address] Hugo Yang VLDL CALC 19.6 mg/dL Normal [facility] Comment on above: Performed By: #### L IPID, BNP, CMP #### [facility] [address] [address] [address] Hugo Yang PROF 14(COMP METB)on 022 Albumin [Mass/Vol] 4.0 g/dL Normal 3.4-5.0 [facility] Comment on above: Performed By: #### L IPID, BNP, CMP #### [facility] [address] [address] [address] Hugo Yang Albumin/Globulin [Mass ratio] 1.3 {ratio} Normal [facility] Comment on above: Performed By: #### L IPID, BNP, CMP #### [facility] [address] [address] [address] Hugo Yang ALP [Catalytic activity/Vol] 82 U/L Normal 46-116 [facility] Comment on above: Performed By: #### L IPID, BNP, CMP #### [facility] [address] [address] [address] Hugo Yang ALT [Catalytic activity/Vol] 52 U/L Normal 14-59 [facility] Comment on above: Performed By: #### L IPID, BNP, CMP #### [facility] [address] [address] [address] Hugo Yang Anion gap [Moles/Vol] 12.9 mmol/L Normal [facility] Comment on above: Performed By: #### L IPID, BNP, CMP #### [facility] [address] [address] [address] Hugo Yang AST [Catalytic activity/Vol] 40 U/L Critically high 15-37 [facility] Comment on above: Performed By: #### L IPID, BNP, CMP #### [facility] [address] [address] [address] Hugo Yang Bilirubin [Mass/Vol] 1.7 mg/dL Critically high 0.2-1.0 [facility] Comment on above: Performed By: #### L IPID, BNP, CMP #### [facility] [address] [place] [address] Dr. Hugo Yang Calcium [Mass/Vol] 9.2 mg/dL Normal 8.5-10.1 [facility] Comment on above: Performed By: #### L IPID, BNP, CMP #### [facility] [address] [address] [address] Hugo Yang Chloride [Moles/Vol] 103 mmol/L Normal 98-107 [facility] Comment on above: Performed By: #### L IPID, BNP, CMP #### [facility] [address] [place] [address] Dr. Hugo Yang CO2 [Moles/Vol] 28.9 mmol/L Normal 21.0-32.0 [facility] Comment on above: Performed By: #### L IPID, BNP, CMP #### [facility] [address] [address] [address] Hugo Yang Creatinine [Mass/Vol] 1.12 mg/dL Critically high 0.55-1.02 [facility] Comment on above: Performed By: #### L IPID, BNP, CMP #### [facility] [address] [place] [address] Dr. Hugo Yang EGFR-AF CITIZEN [place] 57 mL/min/1.73m2 Critically low >=60 [facility] Comment on above: Performed By: #### L IPID, BNP, CMP #### [facility] [address] [address] [address] Hugo Yang EGFR-NON AF CITIZEN [place] 47 mL/min/1.73m2 Critically low >=60 [facility] Comment on above: Performed By: #### L IPID, BNP, CMP #### [facility] [address] [address] [address] Hugo Yang Globulin (S) [Mass/Vol] 3.1 g/dL Normal [facility] Comment on above: Performed By: #### L IPID, BNP, CMP #### [facility] [address] [address] [address] Hugo Yang Glucose [Mass/Vol] 128 mg/dL Critically high 74-106 [facility] Comment on above: Performed By: #### L IPID, BNP, CMP #### [facility] [address] [address] [address] Hugo Yang Potassium [Moles/Vol] 4.8 mmol/L Normal 3.5-5.1 [facility] Comment on above: Performed By: #### L IPID, BNP, CMP #### [facility] [address] [address] [address] Hugo Yang Protein [Mass/Vol] 7.1 g/dL Normal 6.1-8.2 [facility] Comment on above: Performed By: #### L IPID, BNP, CMP #### [facility] [address] [address] [address] Hugo Yang Sodium [Moles/Vol] 140 mmol/L Normal 136-145 [facility] Comment on above: Performed By: #### L IPID, BNP, CMP #### [facility] [address] [address] [address] Hugo Yang Urea nitrogen [Mass/Vol] 23.0 mg/dL Critically high 7.0-18.0 [facility] Comment on above: Performed By: #### L IPID, BNP, CMP #### [facility] [address] [address] [address] Hugo Yang Urea nitrogen/Creatinin e [Mass ratio] 20.5 mg/mg Normal [facility] Comment on above: Performed By: #### L IPID, BNP, CMP #### [facility] [address] [address] [address] Hugo Yang ECHOCARDIO M/2D COMPLETEon 0 06-12-2021 ECHOCARDIO M/2D COMPLETE Patient: LLUVIA MORENO Exam Date: 06/12/2021 : 1940 Gender:F Ordering : SHELDON GOTTLIEB Admission #: [id number] Family : DR OLE YANG M.D. Order #: [id number] CLICK HERE TO VIEW EXAM ECHOCARDIOGRAM REPORT [...] Area(A4C): 31.00 cm2 Left Atrium Systolic Volume(A2C): 370646 mm3 Left Atrium Systolic Volume(A4C): 319121 mm3 Mitral Valve MV E to A [...] M.D. on 06/12/2021 at 16:27 Normal [facility] CBC AUTO DIFFon 06-04-2021 BASO # 0.0 103/ul Normal 0.0-0.1 [facility] Comment on above: Performed By: #### C BC #### [facility] [address] [place] [address] Dr. Hugo Yang Basophils/100 WBC (Bld) 0.6 % Normal 0.2-2.0 [facility] Comment on above: Performed By: #### C BC #### [facility] [address] [place] [address] Dr. Hugo Yang EO # 0.2 103/ul Normal 0.0-0.7 [facility] Comment on above: Performed By: #### C BC #### [facility] [address] [place] [address] Dr. Hugo Yang Eosinophils/100 WBC (Bld) 3.0 % Normal 0.9-7.0 [facility] Comment on above: Performed By: #### C BC #### [facility] [address] [place] [address] Dr. Hugo Yang Erythrocyte distribution width (RBC) [Ratio] 13.7 % Normal 11.0-15.0 [facility] Comment on above: Performed By: #### C BC #### [facility] [address] [place] [address] Dr. Hugo Yang Hematocrit (Bld) [Volume fraction] 42.1 % Normal 36.0-48.0 [facility] Comment on above: Performed By: #### C BC #### [facility] [address] [place] [address] Dr. Hugo Yang Hemoglobin (Bld) [Mass/Vol] 13.3 g/dL Normal 12.0-16.0 [facility] Comment on above: Performed By: #### C BC #### [facility] [address] [place] [address] Dr. Hugo Yang IG # 0.02 10e3/ul Normal 0.00-0.03 [facility] Comment on above: Performed By: #### C BC #### [facility] [address] [place] [address] Dr. Hugo Yang IG % 0.3 % Normal 0.0-0.5 [facility] Comment on above: Performed By: #### C BC #### [facility] [address] [place] [address] Dr. Hugo Yang LYMPH # 1.9 103/ul Normal 1.2-3.8 [facility] Comment on above: Performed By: #### C BC #### [facility] [address] [place] [address] Dr. Hugo Yang Lymphocytes/100 WBC (Bld) 29.2 % Normal 20.5-60.0 [facility] Comment on above: Performed By: #### C BC #### [facility] [address] [place] [address] Dr. Hugo Yang MANUAL DIFF REQ NO Normal [facility] Comment on above: Performed By: #### C BC #### [facility] [address] [place] [address] Dr. Hugo Yang MCH (RBC) [Entitic mass] 30.4 pg Normal 26.7-34.0 [facility] Comment on above: Performed By: #### C BC #### [facility] [address] [place] [address] Dr. Hugo Yang MCHC (RBC) [Mass/Vol] 31.6 g/dL Normal 29.9-35.2 [facility] Comment on above: Performed By: #### C BC #### [facility] [address] [place] [address] Dr. Hugo Yang MCV (RBC) [Entitic vol] 96.3 fL Normal 81.0-99.0 [facility] Comment on above: Performed By: #### C BC #### [facility] [address] [place] [address] Dr. Hugo Yang MONO # 0.6 103/ul Normal 0.3-0.8 [facility] Comment on above: Performed By: #### C BC #### [facility] [address] [place] [address] Dr. Hugo Yang Monocytes/100 WBC (Bld) 8.5 % Normal 1.7-12.0 [facility] Comment on above: Performed By: #### C BC #### [facility] [address] [place] [address] Dr. Hugo Yang NEUT # 3.8 103/ul Normal 1.4-6.5 [facility] Comment on above: Performed By: #### C BC #### [facility] [address] [address] [address] Hugo Yang Neutrophils/100 WBC (Bld) 58.4 % Normal 43.0-75.0 [facility] Comment on above: Performed By: #### C BC #### [facility] [address] [address] [address] Hugo Yang Platelet mean volume (Bld) [Entitic vol] 10.9 fL Normal 9.5-13.5 [facility] Comment on above: Performed By: #### C BC #### [facility] [address] [address] [address] Hugo Yang PLT 163 103/ul Normal 150-450 [facility] Comment on above: Performed By: #### C BC #### [facility] [address] [address] [address] Hugo Yang RBC 4.37 106/ul Normal 4.20-5.40 [facility] Comment on above: Performed By: #### C BC #### [facility] [address] [address] [address] Hugo Yang WBC 6.6 103/ul Normal 4.0-11.0 [facility] Comment on above: Performed By: #### C BC #### [facility] [address] [place] [address] Dr. Hugo Yang PROF CHEM 8 (BAS METB)on Anion gap [Moles/Vol] 13.9 mmol/L Normal [facility] Comment on above: Performed By: #### F T3, TSH #### [facility] [address] [address] [address] Hugo Yang Calcium [Mass/Vol] 9.5 mg/dL Normal 8.5-10.1 [facility] Comment on above: Performed By: #### F T3, TSH #### [facility] [address] [address] [address] Hugo Yang Chloride [Moles/Vol] 105 mmol/L Normal 98-107 [facility] Comment on above: Performed By: #### F T3, TSH #### [facility] [address] [address] [address] Hugo Yang CO2 [Moles/Vol] 27.7 mmol/L Normal 22.0-30.0 [facility] Comment on above: Performed By: #### F T3, TSH #### [facility] [address] [address] [address] Hugo Yang Creatinine [Mass/Vol] 1.19 mg/dL Critically high 0.52-1.04 [facility] Comment on above: Performed By: #### F T3, TSH #### [facility] [address] [address] [address] Hugo Yang EGFR-AF [place]IZ[place] 53 mL/min/1.73m2 Critically low >=60 [facility] Comment on above: Performed By: #### F T3, TSH #### [facility] [address] [address] [address] Hugo Yang EGFR-NON AF CITIZEN [place] 44 mL/min/1.73m2 Critically low >=60 [facility] Comment on above: Performed By: #### F T3, TSH #### [facility] [address] [address] [address] Hugo Yang Glucose [Mass/Vol] 112 mg/dL Critically high 74-106 [facility] Comment on above: Performed By: #### F T3, TSH #### [facility] [address] [address] [address] Hugo Yang Potassium [Moles/Vol] 4.6 mmol/L Normal 3.4-5.0 [facility] Comment on above: Performed By: #### F T3, TSH #### [facility] [address] [address] [address] Huog Yang Sodium [Moles/Vol] 142 mmol/L Normal 137-145 [facility] Comment on above: Performed By: #### F T3, TSH #### [facility] [address] [address] [address] Hugo Yang Urea nitrogen [Mass/Vol] 28.0 mg/dL Critically high 7.0-18.0 [facility] Comment on above: Performed By: #### F T3, TSH #### [facility] [address] [address] [address] Hugo Yang Urea nitrogen/Creatinin e [Mass ratio] 23.5 mg/mg Normal [facility] Comment on above: Performed By: #### F T3, TSH #### [facility] [address] [address] [address] Hugo Yang TROPONIN, HIGH SENSITIVITYon 06-04-2021 HSTROP 27.1 pg/mL Normal 4.0-35.5 [facility] Comment on above: Result Comment: CUT- OFF POINTS HAVE BEEN ESTABLISHED BASED ON THE FOURTH UNIVERSAL DEFINITIONS OF MYOCARDIAL INFARCTION. THE UPPER REFERENCE LIMIT (URL) OF TROPONIN, DEFINED THE 99TH PERCENTILE OF cTnI DISTRIBUTION IN A REFERENCE POPULATION, HAS BEEN CONFIRMED THE DECISION THRESHOLD FOR [place] DIAGNOSIS. Performed By: #### F T3, TSH #### [facility] [address] [address] [address] Hugo Yang XR CHEST 1 Von [...] JOEL ANDINO Date: 2021-06-04 11:09 Normal [facility] Cardiovascular Lab Reporton 12-28-2020 Cardiovascular Lab Report [id number] Physician: Keanu Islas MD Department of Service Date: 12/28/2020 Medicine Birthdate: 1940 Division of Room #: CC Cardiology Adult Cardiovascular Services [facility] [place] [place] [address] [place] [address] Cardiovascular Laboratory Report AV NODE ABLATION PROCEDURE [...] prepped and draped. Under ultrasound guidance, an 8-[place] venous access was procured, and a short [...] Islas MD Date Trans: 12/28/2020 04:43 P/donna [id number] cc: Ole Yang M.D. [address] [place] [address] Normal [facility] Cardiovascular Lab Reporton 11-19-2020 Cardiovascular Lab Report [facility] Patient Name: [facility] MR #: [id number] Physician: Keanu Islas MD Department of Service Date: 11/19/2020 Medicine Birthdate: 1940 Division of Room #: Cardiology Adult Cardiovascular Services [address] [place] [address] Cardiovascular Laboratory Report PACEMAKER IMPLANT PROCEDURE NOTE DATE OF PROCEDURE: 11/19/20 PERFORMING PHYSICIAN: Dr. Keanu Islas CONSENT: Patient LOCATION: EP Lab PROCEDURE PERFORMED: 1. Implantation of pacemaker ([employer]) 2. Ultrasound guided venous access INDICATIONS: [...] using modified seldinger technique using a 5 [place] micro-puncture needle on one occasion and 0.35 wire was placed. Local infiltration of 1% Lidocaine was performed, and an incision was created in the left upper chest. Dissection was then performed using cautery down to the fascial plane above the muscle. A small pocket was created for the device. 8 [place] Safesheath was placed over the wire. Then a His sheath was advanced over a glide wire into the right ventricle. The wire and dilator was then removed. An active fixation [employer] pacing lead was then delivered through the His sheath to the right ventricle. I identified an area where pacing revealed a QRS of 120ms in unipolar configuration. After confirmation of lead position on orthogonal views (PATEL and ENGLISH) to confirm septal position, the screw was [...] immediate procedural complications were noted. Device info: [employer] Accolade MRI EL SR IS1 Model# L310 Serial# [id number] RV lead: Model# [id number] (59cms) Serial# [id number] Sensin.3mV Threshold: 0.6V@0.4ms Impedance: 655 Ohms POST [...] 11/19/2020 (more content not included)... Normal [facility] Vital Signs Date Time Vital Sign Value Performing Clinician Facility 10-13-2024 09:39-0400 Body height 170.2 cm Kenneth Clifton DPM Work Phone: [facility] 10-13-2024 09:39-0400 Body mass index (BMI) [Ratio] 26.94 kg/m2 Kenneth Clifton DPM Work Phone: [facility] 10-13-2024 09:39-0400 Body weight 78.02 kg Kenneth Clifton DPM Work Phone: [facility] 10-13-2024 09:39-0400 Respiratory rate 18 /min Kenneth Etienne DPM Work Phone: [facility] 09-14-2024 09:59-0400 Body height 167.6 cm Ole Yang MD Work Phone: [facility] 09-14-2024 09:59-0400 Body mass index (BMI) [Ratio] 27.92 kg/m2 Ole Yang MD Work Phone: [facility] 09-14-2024 09:59-0400 Body weight 78.47 kg Ole Yang MD Work Phone: [facility] 09-14-2024 09:59-0400 Diastolic blood pressure 64 mm[Hg] Ole Yang MD Work Phone: [facility] 09-14-2024 09:59-0400 Heart rate 70 /min Ole Yang MD Work Phone: [facility] 09-14-2024 09:59-0400 SaO2% (BldA) [Mass fraction] 98 % Ole Yang MD Work Phone: [facility] 09-14-2024 09:59-0400 Systolic blood pressure 126 mm[Hg] Ole Yang MD Work Phone: [facility] 08-15-2024 14:30-0400 Body height 167.6 cm Ole Yang MD Work Phone: [facility] 08-15-2024 14:30-0400 Body mass index (BMI) [Ratio] 27.76 kg/m2 Ole Yang MD Work Phone: [facility] 08-15-2024 14:30-0400 Body weight 78.02 kg Ole Yang MD Work Phone: [facility] 08-15-2024 14:30-0400 Diastolic blood pressure 78 mm[Hg] Ole Yang MD Work Phone: [facility] 08-15-2024 14:30-0400 Heart rate 70 /min Ole Yang MD Work Phone: [facility] 08-15-2024 14:30-0400 Respiratory rate 17 /min Ole Yang MD Work Phone: [facility] 08-15-2024 14:30-0400 SaO2% (BldA) [Mass fraction] 99 % Ole Yang MD Work Phone: [facility] 08-15-2024 14:30-0400 Systolic blood pressure 120 mm[Hg] Ole Yang MD Work Phone: [facility] 06-02-2024 09:47-0400 Body height 167.6 cm Dipti Hemmer PA Work Phone: [facility] 06-02-2024 09:47-0400 Body mass index (BMI) [Ratio] 28.47 kg/m2 Dipti Hemmer PA Work Phone: [facility] 06-02-2024 09:47-0400 Body temperature 99.19 [degF] Dipti Hemmer PA Work Phone: [facility] 06-02-2024 09:47-0400 Body weight 80.02 kg Dipti Hemmer PA Work Phone: [facility] 06-02-2024 09:47-0400 Diastolic blood pressure 64 mm[Hg] Dipti Hemmer PA Work Phone: [facility] 06-02-2024 09:47-0400 Heart rate 70 /min Dipti Hemmer PA Work Phone: [facility] 06-02-2024 09:47-0400 Respiratory rate 16 /min Dipti Hemmer PA Work Phone: [facility] 06-02-2024 09:47-0400 SaO2% (BldA) [Mass fraction] 99 % Dipti Hemmer PA Work Phone: [facility] 06-02-2024 09:47-0400 Systolic blood pressure 102 mm[Hg] Dipti Hemmer PA Work Phone: [facility] 06-01-2024 10:07-0400 Body height 170.2 cm Teri Martinez MD Work Phone: [facility] 06-01-2024 10:07-0400 Body mass index (BMI) [Ratio] 27.88 kg/m2 Teri Martinez MD Work Phone: [facility] 06-01-2024 10:07-0400 Body weight 80.74 kg Teri Martinez MD Work Phone: [facility] 06-01-2024 10:07-0400 Diastolic blood pressure 82 mm[Hg] Teri Martinez MD Work Phone: [facility] 06-01-2024 10:07-0400 Heart rate 70 /min Teri Martinez MD Work Phone: [facility] 06-01-2024 10:07-0400 Respiratory rate 16 /min Teri Martinez MD Work Phone: [facility] 06-01-2024 10:07-0400 SaO2% (BldA) [Mass fraction] 89 % Teri Martinez MD Work Phone: [facility] 06-01-2024 10:07-0400 Systolic blood pressure 142 mm[Hg] Teri Martinez MD Work Phone: [facility] 03-30-2024 09:57-0500 Body height 167.6 cm Ole Yang MD Work Phone: [facility] 03-30-2024 09:57-0500 Body mass index (BMI) [Ratio] 28.25 kg/m2 Ole Yang MD Work Phone: [facility] 03-30-2024 09:57-0500 Body weight 79.38 kg Ole Yang MD Work Phone: [facility] 03-30-2024 09:57-0500 Diastolic blood pressure 78 mm[Hg] Ole Yang MD Work Phone: [facility] 03-30-2024 09:57-0500 Heart rate 69 /min Ole Yang MD Work Phone: [facility] 03-30-2024 09:57-0500 SaO2% (BldA) [Mass fraction] 98 % Ole Yang MD Work Phone: [facility] 03-30-2024 09:57-0500 Systolic blood pressure 128 mm[Hg] Ole Yang MD Work Phone: [facility] 02-25-2024 10:03-0500 Body height 167.6 cm Dipti Hemmer PA Work Phone: [facility] 02-25-2024 10:03-0500 Body mass index (BMI) [Ratio] 28.89 kg/m2 Dipti Hemmer PA Work Phone: [facility] 02-25-2024 10:03-0500 Body weight 81.19 kg Dipti Hemmer PA Work Phone: [facility] 02-25-2024 10:03-0500 Diastolic blood pressure 66 mm[Hg] Dipti Hemmer PA Work Phone: [facility] 02-25-2024 10:03-0500 Heart rate 74 /min Dipti Hemmer PA Work Phone: [facility] 02-25-2024 10:03-0500 Respiratory rate 20 /min Dipti Hemmer PA Work Phone: [facility] 02-25-2024 10:03-0500 SaO2% (BldA) [Mass fraction] 99 % Dipti Hemmer PA Work Phone: [facility] 02-25-2024 10:03-0500 Systolic blood pressure 108 mm[Hg] Dipti Hemmer PA Work Phone: [facility] 12-02-2023 10:08-0400 Body height 167.6 cm Teri Martinez MD Work Phone: [facility] 12-02-2023 10:08-0400 Body mass index (BMI) [Ratio] 28.73 kg/m2 Teri Martinez MD Work Phone: [facility] 12-02-2023 10:08-0400 Body weight 80.74 kg Teri Martinez MD Work Phone: [facility] 12-02-2023 10:08-0400 Diastolic blood pressure 70 mm[Hg] Teri Martinez MD Work Phone: [facility] 12-02-2023 10:08-0400 Heart rate 87 /min Teri Martinez MD Work Phone: [facility] 12-02-2023 10:08-0400 Respiratory rate 18 /min Teri Martinez MD Work Phone: [facility] 12-02-2023 10:08-0400 Systolic blood pressure 102 mm[Hg] Teri Martinez MD Work Phone: [facility] 11-26-2023 09:56-0400 Body height 170.2 cm Dipti Hemmer PA Work Phone: [facility] 11-26-2023 09:56-0400 Body mass index (BMI) [Ratio] 27.82 kg/m2 Dipti Hemmer PA Work Phone: [facility] 11-26-2023 09:56-0400 Body weight 80.56 kg Dipti Hemmer PA Work Phone: [facility] 11-26-2023 09:56-0400 Diastolic blood pressure 74 mm[Hg] Dipti Hemmer PA Work Phone: [facility] Comment on above: home BP monitor 141/ 81 11-26-2023 09:56-0400 Heart rate 71 /min Dipti Hemmer PA Work Phone: [facility] 11-26-2023 09:56-0400 Respiratory rate 16 /min Dipti Hemmer PA Work Phone: [facility] 11-26-2023 09:56-0400 SaO2% (BldA) [Mass fraction] 99 % Dipti Hemmer PA Work Phone: [facility] 11-26-2023 09:56-0400 Systolic blood pressure 128 mm[Hg] Dipti Hemmer PA Work Phone: [facility] Comment on above: home BP monitor 141/ 81 02-11-2023 14:43-0500 Body height 170.2 cm Ole Yang MD Work Phone: [facility] 02-11-2023 14:43-0500 Body mass index (BMI) [Ratio] 26.94 kg/m2 Ole Yang MD Work Phone: [facility] 02-11-2023 14:43-0500 Body weight 78.02 kg Ole Yang MD Work Phone: [facility] 02-11-2023 14:43-0500 Diastolic blood pressure 70 mm[Hg] Ole Yang MD Work Phone: [facility] 02-11-2023 14:43-0500 Heart rate 76 /min Ole Yang MD Work Phone: [facility] 02-11-2023 14:43-0500 Systolic blood pressure 126 mm[Hg] Ole Yang MD Work Phone: [facility] Healthcare Encounters Encounter Date Encounter Type Care Provider Facility Start: 10-19-2024 End: 10-19-2024 Clinisync Result Encounter Nicole Land SLITTER PROCESSED FILM Work Phone: [facility] External Department Unsolicited Start: 10-19-2024 End: 10-19-2024 Clinisync Result Encounter Nicole Land SLITTER PROCESSED FILM Work Phone: [facility] External Department Unsolicited Start: 10-13-2024 End: 10-13-2024 Bamboo flowsheet Kenneth Clifton DPM Work Phone: [facility] Start: 10-13-2024 End: 10-13-2024 Bamboo flowsheet Kenneth Clifton DPM Work Phone: [facility] Start: 10-13-2024 End: 10-13-2024 ambulatory NICOLE LAND Not Available Start: 10-13-2024 End: 10-13-2024 Office outpatient new 30 minutes Kenneth Clifton DPM Work Phone: [facility] Comment on above: Venous insufficiency (Primary Dx); Deformity of toenail; Pain due to onychomycosis of toenails of both feet Start: 09-29-2024 ambulatory NILE DANIKA [facility] Start: 09-26-2024 End: 09-26-2024 Clinisync Result Encounter Ole Yang MD Work Phone: [facility] External Department Unsolicited Start: 09-26-2024 End: 09-28-2024 Clinisync Result Encounter Ole Yang MD Work Phone: [facility] External Department Unsolicited Start: 09-26-2024 End: 09-28-2024 External Result Encounter Ole Yang MD Work Phone: [facility] External Department Unsolicited Start: 09-26-2024 End: 09-26-2024 ambulatory Ole Yang [facility] Work Phone: Start: 09-26-2024 End: 09-26-2024 Departed Referred Ole Yang II, MD -LAB [facility] Start: 09-14-2024 End: 09-14-2024 Bamboo flowsheet Ole Yang MD Work Phone: [facility] Start: 09-14-2024 End: 09-14-2024 Bamboo flowsheet Ole Yang MD Work Phone: [facility] Start: 09-14-2024 End: 09-14-2024 Office outpatient visit 25 minutes Ole Yang MD Work Phone: [facility] Comment on above: Chronic kidney disea se, stage 3b (CMS-HCC) (Primary Dx); Chronic combined systolic (congestive) and diastolic (congestive) heart failure (HCC); Supplemental oxygen dependent; Anxiety; Hyperthyroidism ; 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 ; Panlobular emphysema (HCC); Deformity of toenail Start: 09-14-2024 End: 09-14-2024 ambulatory OLE YANG Not Available Start: 09-06-2024 End: 09-08-2024 Refill Ole Yang MD Work Phone: [facility] Comment on above: Anxiety Start: 09-02-2024 ambulatory NILE DAYUBB [facility] Start: 08-18-2024 End: 08-18-2024 Clinisync Result [...] stage 3b (CMS-HCC); 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 Start: 08-15-2024 End: 08-15-2024 ambulatory OLE YANG Not Available Start: 08-15-2024 End: 08-15-2024 Bamboo flowsheet Ole Yang MD Work Phone: [facility] Start: 08-15-2024 End: 08-15-2024 Bamboo flowsheet Ole Yang MD Work Phone: [facility] Start: 08-11-2024 End: 08-11-2024 [facility] Start: 08-01-2024 ambulatory KEANU ISLAS [facility] Start: 07-22-2024 End: 07-25-2024 Clinisync Result Encounter Generic External Data Provider [facility] External Department Unsolicited Start: 07-22-2024 End: 07-25-2024 Clinisync Result Encounter Generic External Data Provider [facility] External Department Unsolicited Start: 07-22-2024 End: 07-22-2024 ambulatory Luis E Samuels [facility] Work Phone: Start: 07-22-2024 End: 07-22-2024 Departed Referred Michael Zapien Work Phone: [facility] Start: 07-19-2024 End: 07-19-2024 ambulatory [facility] Start: 07-07-2024 End: 07-07-2024 ambulatory DIPTI ANDERSON Not Available Start: 07-01-2024 ambulatory [facility] Start: 06-02-2024 End: 06-02-2024 Patient encounter procedure [...] left ventricle; 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 (CMS/HCC); Primary hypertension [...] ovarian failure; Anxiety; 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; Diplopia; Elevated liver enzymes; Frequent falls; History of stroke without residual deficits; Memory changes; 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); COPD exacerbation (CMS/HCC) Start: 06-02-2024 End: 06-02-2024 ambulatory DIPTI ANDERSON Not Available Start: 06-01-2024 End: 06-01-2024 Bamboo flowsheet Teri Martinez MD Work Phone: [facility] Start: 06-01-2024 End: 06-01-2024 Bamboo flowsheet Teri Martinez MD Work Phone: [facility] Start: 06-01-2024 End: 06-01-2024 Office outpatient visit 25 minutes Teri Martinez MD Work Phone: [facility] Comment on above: Hyperthyroidism (CMS /HCC) (Primary Dx); Multinodular goiter (CMS/HCC); Longstanding persistent atrial fibrillation (CMS/HCC) Start: 06-01-2024 End: 06-01-2024 ambulatory TERI MARTINEZ Not Available Start: 05-25-2024 ambulatory [facility] Start: 05-23-2024 End: 05-23-2024 Clinisync Result Encounter Generic External Data Provider [facility] External Department Unsolicited Start: 05-23-2024 End: 05-23-2024 Clinisync Result Encounter Generic External Data Provider [facility] External Department Unsolicited Start: 05-12-2024 End: 05-13-2024 Refill Annalise Siva SOIL CONSERVATIONIST [facility] Comment on above: Anxiety Start: 04-25-2024 [facility] Start: 03-30-2024 End: 03-30-2024 Bamboo flowsheet [...] OLE YANG Not Available Start: 02-29-2024 ambulatory [facility] Start: 02-25-2024 End: 02-25-2024 Bamboo flowstod VEGA Work Phone: [facility] Start: 02-25-2024 End: 02-25-2024 Bamboo flowsheet Dipti Anderson PA Work Phone: [facility] Start: 02-25-2024 End: 02-25-2024 Office outpatient visit 25 minutes Dipti VEGA Work Phone: [facility] Comment on above: Panlobular emphysema (CMS/HCC) (Primary Dx); Benign hypertensive heart disease with heart failure (CMS/HCC); Impaired fasting glucose; 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 (CMS/HCC); Age-related osteoporosis without current pathological fracture (CMS/HCC); Cardiomyopathy, unspecified (CMS/HCC); Longstanding persistent atrial fibrillation (CMS/HCC); Chronic obstructive pulmonary disease, unspecified (CMS/HCC); Chronic kidney disease, stage 3b (HCC) (CMS/HCC); 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); Chronic atrial fibrillation, unspecified (CMS/HCC); Supplemental oxygen dependent Start: 02-25-2024 End: 02-25-2024 ambulatory DIPTI ANDERSON Not Available Start: 02-04-2024 ambulatory [facility] Start: 01-25-2024 End: 01-25-2024 ambulatory [facility] Start: 12-08-2023 ambulatory [facility] Start: 12-08-2023 Encounter for preprocedural cardiovascular examination [facility] Start: 12-03-2023 ambulatory [facility] Start: 12-02-2023 End: 12-02-2023 Lina Martinez MD Work Phone: [facility] Start: 12-02-2023 End: 12-02-2023 Lina Martinez MD Work Phone: [facility] Start: 12-02-2023 End: 12-02-2023 Office outpatient visit 25 minutes Teri Martinez MD Work Phone: [facility] Comment on above: Hyperthyroidism (CMS [...] Comment on above: Anxiety Start: 10-26-2023 ambulatory [facility] Start: 10-16-2023 ambulatory [facility] Start: 04-27-2023 End: 04-27-2023 ambulatory [facility] Start: 04-27-2023 End: 04-27-2023 Office outpatient visit 15 minutes [facility] OD Work Phone: [facility] Comment on above: Esotropia of right e ye (Primary Dx); Right abducens nerve palsy; Double vision Start: 02-11-2023 End: 02-11-2023 Office outpatient visit 15 minutes Ole Yang MD Work Phone: [facility] Comment on above: Leg hematoma, right, initial encounter (Primary Dx); Current use of senior living anticoagulation; Localized edema Start: 05-14-2022 End: 05-15-2022 ambulatory TERI MARTINEZ Facility:[facility] Start: 03-19-2022 End: 03-20-[address] DIPTI ANDERSON Facility:[facility] Start: 12-23-2021 End: 12-24-2021 ambulatory SHELDON GOTTLIEB Facility:[facility] Start: 11-25-2021 End: 11-26-2021 [facility] Start: 09-04-2021 End: 09-05-2021 ambulatory SHELDON GOTTLIEB Facility:[facility] Start: 08-23-2021 Encounter for other preprocedural examination SHELDON [facility] Start: 08-23-2021 Encounter for preprocedural laboratory examination SHELDON [facility] Start: 08-22-2021 End: 08-23-2021 ambulatory KEANU ISLAS Facility:[facility] Start: 08-21-2021 End: 08-22-2021 ambulatory KEANU ISLAS Facility:[facility] Start: 08-20-2021 End: 08-21-2021 ambulatory SHELDON GOTTLIEB Facility:[facility] Start: 08-20-2021 End: 08-21-2021 Encounter for other preprocedural examination SHELDON GOTTLIEB Facility:[facility] Start: 07-30-2021 End: 07-31-2021 ambulatory SHELDON GOTTLIEB Facility:[facility] Start: 06-28-2021 End: 06-29-2021 ambulatory MERYL ANTON Facility:[facility] Start: 06-20-2021 Encounter for other specified special examinations SHELDON [facility] Start: 06-18-2021 End: 06-19-2021 ambulatory SHELDON GOTTLIEB Facility:[facility] Start: 06-18-2021 End: 06-19-2021 Encounter for other specified special examinations MERYL WONGS Facility:[facility] Start: 06-17-2021 End: 06-17-[address] MAYRA CHOI Facility:[facility] Start: 06-12-2021 End: 06-13-2021 ambulatory SHELDON GOTTLIEB Facility:[facility] Start: 06-04-2021 End: 06-04-2021 ambulatory GABRIEL GREEN Facility: Start: 12-28-2020 End: 12-29-2020 ambulatory KEANU ISLAS Facility:[facility] Start: 11-19-2020 End: 11-20-2020 ambulatory KEANU ISLAS Facility:[facility] Start: 10-25-2003 Evaluation and manag ement of inpatient Michael Zapien Work Phone: [facility] Work Phone: Procedures Date Procedure Procedure Detail Performing Clinician Start: 10-19-2024 ALL CBC WITH AUTO DIFF Nicole Land NP Work Phone: Start: 09-26-2024 ALL URINALYSIS Ole Yang MD Work Phone: Start: 09-26-2024 Culture bacterial quanttative colony count urine Ole Yang MD Work Phone: Start: 08-18-2024 ALL LIPID PROFILE (FASTING) Generic External Data Provider Start: 08-18-2024 [facility] ALT Generic Ex ternal Data Provider Start: 08-18-2024 [facility] AST Generic Ex ternal Data Provider Start: 07-22-2024 Urine culture Michael healy Work Phone: Start: 07-22-2024 URINE CULTURE - [facility] External Data Provider Start: 05-23-2024 ALL T3 FREE Generic Ex ternal Data Provider Start: 05-23-2024 ALL THYROID STIM HORMONE Generic External Data Provider Start: 05-23-2024 ALL THYROXINE (T4) FREE Generic External Data Provider Start: 11-26-2023 ALL THYROXINE (T4) FREE Generic External Data Provider Start: 04-27-2023 Follow-up visit Follow-up ELIEL NICHOLS Plan of Treatment Date Care Activity Detail Author Start: 12-29-2024 End: 12-29-2024 Patient encounter procedure 12/29/2024 10:00 AM EST Procedure Visit [facility] [address] [facility] [address] [place] [address] Kenneth Clifton, DPM [address] [facility] [address] [place] [address] [facility] Start: 11-30-2024 End: 11-30-2024 Patient encounter procedure [facility] Start: 10-26-2024 End: 10-26-2024 Patient encounter procedure 10/26/2024 9:30 AM EDT Office [facility] [address] [facility] [address] [place] [address] Ole Yang MD [address] [facility] [address] [place] [address] [facility] Start: 10-17-2024 Influenza vaccination Influenza Vaccine (#1) [facility] Start: 10-13-2024 End: 10-13-2024 Patient encounter procedure [facility] Start: 09-27-2024 Bacteria identified in Urine by Culture Urine Culture [facility] Start: 09-27-2024 Urine culture [facility] Start: 09-14-2024 End: 09-14-2024 Patient encounter procedure [facility] Comment on above: Arrived Start: 08-31-2024 End: 08-31-2024 Patient encounter procedure 08/31/2024 9:30 AM EDT Office Visit [facility] [address] [facility] [address] [place] [address] Dipti Anderson PA [address] [facility] [address] [place] [address] [facility] Start: 08-15-2024 End: 08-15-2024 Patient encounter procedure 08/15/2024 2:30 PM EDT Office Visit [facility] [address] [facility] [address] [place] [address] Ole Yang MD [address] [facility] [address] [place] [address] Arrived [facility] Comment on above: Arrived Start: 08-11-2024 End: 08-11-2024 Patient encounter procedure 08/11/2024 10:00 AM EDT Office Visit [facility] [address] [facility] [address] [place] [address] Dipti Anderson PA [address] [facility] [address] [place] [address] [facility] Start: 07-22-2024 Bacteria identified in Urine by Culture Urine Culture [facility] Start: 07-22-2024 Urine culture [facility] Start: 06-02-2024 End: 06-02-2025 DXA Skeletal system Views for bone density DEXA bone density Imaging Routine Estrogen deficiency Expected: 06/02/2024, Expires: 06[facility]02/20[facility] Work Phone: Comment on above: Expected: 06/02/2024, Expires: Start: 06-02-2024 End: 06-02-2024 Patient encounter procedure 06/02/2024 9:30 AM EDT Office Visit [facility] [address] [facility] [address] [place] [address] Dipti Anderson PA [address] [facility] [address] [place] [address] [facility] Start: 06-01-2024 End: 06-01-2025 Thyrotropin [Units/volume] in Serum or Plasma TSH Lab Routine Hyperthyroidism ([facility]/HCC) Expected: 06/01/2024 (Approximate), Expires: 06/01/2025 [facility] Comment on above: Expected: 06/01/2024 (Approximate), Expi res: 06/01/2025 Start: 06-01-2024 End: 06-01-2025 Thyroxine (T4) free [Mass/volume] in Serum or Plasma T4, free Lab Routine Hyperthyroidism ([facility]/HCC) Expected: 06/01/2024 (Approximate), Expires: 06/01/2025 [facility] Comment on above: Expected: 06/01/2024 (Approximate), Expi res: 06/01/2025 Start: 06-01-2024 End: 06-01-2025 Triiodothyronine (T3) Free [Mass/volume] in Serum or Plasma T3, free Lab Routine Hyperthyroidism (CMS/HCC) Expected: 06/01/2024 (Approximate), Expires: 06/01/2025 [facility] Work Phone: Comment on above: Expected: 06/01/2024 (Approximate), Expi res: 06/01/2025 Start: 06-01-2024 End: 06-01-2024 Patient encounter procedure [facility] Comment on above: Arrived Start: 05-30-2024 End: 05-30-2024 Patient encounter procedure 05/30/2024 9:30 AM EDT Office Visit [facility] [address] [facility] [address] [place] [address] iDpti Anderson PA [address] [facility] [address] [place] [address] [facility] Start: 05-26-2024 Medicare Annual Wellness (AWV) Medicare Annual Wellness (AWV) [facility] Start: 04-26-2024 Tobacco Screening Tobacco Screening [facility] Start: 03-30-2024 End: 03-30-2024 Patient encounter procedure 03/30/2024 10:15 AM EST Office Visit [facility] [address] [facility] [address] [place] [address] Ole Yang MD [address] [facility] [address] [place] [address] Arrived [facility] Comment on above: Arrived Start: 02-25-2024 End: 02-24-2025 25-hydroxyvitamin D3 [Mass/volume] in Serum or Plasma Vitamin D 25 hydroxy Total Lab Routine 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 (CMS/HCC) Age-related osteoporosis without current pathological fracture (CMS/HCC) Expected: 02/25/2024 (Approximate), Expires: 02/24/2025 [facility] Comment on above: Expected: 02/25/2024 (Approximate), Expi res: 02/24/2025 Start: 02-25-2024 End: 02-24-2025 Basic metabolic 1998 panel - Serum or Plasma Basic metabolic panel Lab Routine Benign hypertensive heart disease with heart failure (CMS/HCC) Impaired fasting glucose Expected: 02/25/2024 (Approximate), Expires: 02/24/2025 [facility] Comment on above: Expected: 02/25/2024 (Approximate), Expi res: 02/24/2025 Start: 02-25-2024 End: 02-24-2025 CBC W Auto Differential panel - Blood CBC and differential Lab Routine 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 (CMS/HCC) Expected: 02/25/2024 (Approximate), Expires: 02/24/2025 [facility] Work Phone: Comment on above: Expected: 02/25/2024 (Approximate), Expi res: 02/24/2025 Start: 02-25-2024 End: 02-24-2025 Hemoglobin A1c/Hemoglobin.total in Blood Hemoglobin A1c Lab Routine Impaired fasting glucose Expected: 02/25/2024 (Approximate), Expires: 02/24/2025 [facility] Comment on above: Expected: 02/25/2024 (Approximate), Expi res: 02/24/2025 Start: 02-25-2024 End: 02-24-2025 Lipid 1996 panel - Serum or Plasma Lipid panel Lab Routine 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 (CMS/HCC) Expected: 02/25/2024 (Approximate), Expires: 02/24/2025 [facility] Comment on above: Expected: 02/25/2024 (Approximate), Expi res: 02/24/2025 Start: 02-25-2024 End: 02-25-2024 Patient encounter procedure [facility] Comment on above: [facility] Start: 12-04-2023 Adult BMI Screening Adult BMI Screening [facility] Start: 12-02-2023 End: 12-01-2024 Hepatic function 2000 panel - Serum or Plasma Hepatic function panel Lab Routine Hyperthyroidism (CMS/HCC) Expected: 12/02/2023 (Approximate), Expires: 12/01/2024 [facility] Comment on above: Expected: 12/02/2023 (Approximate), Expi res: 12/01/2024 Start: 12-02-2023 End: 12-01-2024 Thyrotropin [Units/volume] in Serum or Plasma TSH Lab Routine Hyperthyroidism (CMS/HCC) Expected: 12/02/2023 (Approximate), Expires: 12/01/2024 [facility] Comment on above: Expected: 12/02/2023 (Approximate), Expi res: 12/01/2024 Start: 12-02-2023 End: 12-01-2024 Thyroxine (T4) free [Mass/volume] in Serum or Plasma T4, free Lab Routine Hyperthyroidism (CMS/HCC) Expected: 12/02/2023 (Approximate), Expires: 12/01/2024 [facility] Comment on above: Expected: 12/02/2023 (Approximate), Expi res: 12/01/2024 Start: 12-02-2023 End: 12-01-2024 Triiodothyronine (T3) Free [Mass/volume] in Serum or Plasma T3, free Lab Routine Hyperthyroidism (CMS/HCC) Expected: 12/02/2023 (Approximate), Expires: 12/01/2024 [facility] Work Phone: Comment on above: Expected: 12/02/2023 (Approximate), Expi res: 12/01/2024 Start: 12-02-2023 End: 12-02-2023 Patient encounter procedure [facility] Comment on above: Arrived Start: 11-26-2023 End: 11-26-2023 Patient encounter procedure [facility] Comment on above: Arrived Start: 10-18-2023 Influenza vaccination Influenza Vaccine (#1) [facility] Start: 08-17-2007 Fall Risk Screening Fall Risk Screening [facility] Start: 1961 DTaP,Tdap and Td Vaccines (1 - Tdap) DTaP,Tdap and Td Vaccines (1 - Tdap) [facility] Start: 1960 Adult BMI Follow Up Plan Adult BMI Follow Up Plan [facility] Start: 1954 Depression Screening Depression Screening [facility] [employer] [facility] Start: 1942 Medicare Annual Wellness Visit Medicare Annual Wellness Visit [facility] [employer] [facility] Bacteria identified in Urine by Culture Urine culture Microbiology Routine 09/26/2024 1:30 PM EDT [facility] Work Phone: Immunizations Immunization Date Immunization Notes Care Provider Fa [facility] 12-10-2023 SARS-COV-2 (COVID-19 ) vaccine, mRNA, spike protein, LNP, PF, robert-sucrose, 30 mcg/0.3 mL Dipti Hemmer PA Work Phone: [facility] 11-26-2023 Influenza, High-dose Seasonal, Quadrivalent, Preservative Free Dipti Hemmer PA Work Phone: [facility] 11-26-2023 influenza virus vacc ine, unspecified formulation Generic Provider [facility] 01-01-2023 SARS-COV-2 (COVID-19 ) vaccine, mRNA, spike protein, LNP, PF, robert-sucrose, 30 mcg/0.3 mL Dipti Hemmer PA Work Phone: [facility] 01-01-2023 zoster vaccine recombinant K aren Hemmer PA Work Phone: [facility] 12-10-2022 ABRYSVO - Respirator y syncytial virus (RSV), vaccine, bivalent, protein subunit RSV prefusion F, diluent reconstituted, 0.5 mL, PF Dipti Hemmer PA Work Phone: [facility] 11-26-2022 Influenza, Seasonal, Quadrivalent, Adjuvanted Dipti Hemmer PA Work Phone: [facility] 11-26-2022 influenza virus vacc ine, unspecified formulation Dipti Hemmer PA Work Phone: [facility] 04-16-2022 zoster vaccine recombinant K aren Hemmer PA Work Phone: [facility] 12-10-2021 influenza, high dose seasonal, preservative-free Dipti Hemmer PA Work Phone: [facility] 12-10-2021 Moderna SARS-CoV-2 50mcg/0.5mL Booster Dipti Hemmer PA Work Phone: [facility] 01-17-2021 influenza, high dose seasonal, preservative-free Dipti Hemmer PA Work Phone: [facility] 01-10-2020 Seasonal trivalent influenza vaccine, adjuvanted, preservative free Dipti Hemmer PA Work Phone: [facility] 02-23-2019 pneumococcal polysaccharide vaccine, 23 valent Dipti Hemmer PA Work Phone: [facility] 11-25-2018 Seasonal trivalent influenza vaccine, adjuvanted, preservative free Dipti Hemmer PA Work Phone: [facility] 06-25-2018 pneumococcal conjuga te vaccine, 13 valent Dipti Hemmer PA Work Phone: [facility] 12-02-2017 Influenza, High-dose Seasonal, Quadrivalent, Preservative Free Dipti Hemmer PA Work Phone: [facility] 12-11-2016 Influenza, High-dose Seasonal, Quadrivalent, Preservative Free Dipti Hemmer PA Work Phone: [facility] 08-17-2007 pneumococcal polysaccharide vaccine, 23 valent Dipti Hemmer PA Work Phone: [facility] Payers Date Payer Category Payer Self-pay 2022 Private Health Insurance [facility] MED ICARE SUPPLEMENT [id number] 2022 Unknown COMMERCIAL COMME RCIAL - GENERIC PLAN [id number] 2022-Present [phone] [address] [address] [place] [address] [id number] 2004 Medicare [id number] 1959 Medicare [id number] 1959 Unknown [id number] 1942 Unknown [id number] 1942 Unknown [id number] 1942 Unknown [id number] 2.16.840.1.142628.3.579.2 .647 1940 Unknown [id number] 2.16.840.1.620362.3.579.2 .593 1940 Unknown [id number] 2.16.840.1.436545.3.579.2 .593 1942 Unknown [id number] 2.16.840.1.893201.3.579.2 .593 1942 Unknown [id number] 2.16.840.1.355399.3.579.2 .593 1942 Unknown [id number] 2.16.840.1.090548.3.579.2 .593 1942 Unknown [id number] 2.16.840.1.064732.3.579.2 .593 1942 Unknown [id number] 2.16.840.1.274497.3.579.2 .593 1942 Unknown [id number] 2.16.840.1.183629.3.579.2 .593 1942 Unknown [id number] 2.16.840.1.910080.3.579.2 .593 1942 Unknown [id number] 2.16.840.1.336365.3.579.2 .593 1942 Unknown [id number] 2.16.840.1.322345.3.579.2 .593 1942 Unknown [id number] 2.16.840.1.072520.3.579.2 .593 1942 Unknown [id number] 2.16.840.1.756804.3.579.2 .593 1942 Unknown [id number] 2.16.840.1.374201.3.579.2 .593 1942 Unknown [id number] 2.16.840.1.979294.3.579.2 .593 1942 Unknown [id number] 2.16840.1.814896.3.579.2 .1286 1942 Unknown [id number] 2.16.840.1.423916.3.579.2 .1259 1942 Unknown [id number] 2.16.840.1.311646.3.579.2 .125 1942 Unknown [id number] 2.16.840.1.149257.3.579.2 .125 1942 Unknown [id number] 2.16840.1.340955.3.579.2 .125 1942 Unknown [id number] 2.16.840.1.418217.3.579.2 .1259 1942 Unknown [id number] 2.16.840.1.420444.3.579.2 .125 1942 Unknown [id number] 2.16.840.1.060403.3.579.2 .1259 1942 Unknown [id number] 2.16.840.1.173556.3.579.2 .125 1942 Unknown [id number] 2.16.840.1.874691.3.579.2 .1259 1942 Unknown [id number] 2.16.840.1.647242.3.579.2 .1259 1942 Unknown [id number] 2.16.840.1.112258.3.579.2 .1259 Medicare Medicare [id number] Unknown [id number] 2.16.840.1.211525.3.579.2 .531 Unknown [id number] 2.16.840.1.243583.3.579.2 .531 Social History Date Type Detail Facility Start: 07-28-2022 End: 08-13-2022 Tobacco smoking status NHIS Never smoked tobacco [facility] Start: 07-28-2022 End: 08-13-2022 Tobacco use and exposure Smokeless tobacco non-user [facility] Start: 02-11-2023 End: 10-13-2024 Alcoholic beverage intake Lifetime non-drinker (finding) [facility] [...] got money to buy more. Never true [facility] Start: 1940 Sex assigned at Not on file P [facility] How often do you nee d to have someone help you when you read instructions, pamphlets, or other written material from your doctor or pharmacy [SILS] Often [facility] Work Phone: How often do you nee d to have someone help you when you read instructions, pamphlets, or other written material from your doctor or pharmacy [SILS] Sometimes [facility] How hard is it for y ou to pay for the very basics like food, housing, medical care, and heating Not very hard [facility] Do you feel stress - tense, restless, nervous, or anxious, or unable to sleep at night because your mind is troubled all the time - these days [OSQ] Rather much [facility] Work Phone: Start: 07-23-2024 Sex Female (finding) [facility] Start: 1940 Sex Assigned At Female F [facility] Functional Status Date Assessment Result Facility 09-14-2024 Patient Health [facility] ionnaire 2 item (PHQ-2) [Reported] [facility] 08-15-2024 Patient Health [facility] ionnaire 2 item (PHQ-2) [Reported] [facility] 08-15-2024 PHQ-9 quick depressi on assessment panel [Reported.PHQ] [facility] 06-02-2024 Patient Health [facility] ionnaire 2 item (PHQ-2) [Reported] [facility] 06-01-2024 Total score [AUDIT-C] 0 06/02/19 25 10:00 AM EDT Mychart, Generic [facility] 06-01-2024 How often to you hav e a drink containing alcohol? Never 06/01/2024 10:00 AM EDT Mychart, Generic Never [facility] 06-01-2024 Functional status Patient does n ot drink 06/01/2024 10:00 AM EDT Mychart, Generic Patient does not drink [facility] 06-01-2024 How often do you hav e 6 or more drinks on 1 occasion? Never 06/01/2024 10:00 AM EDT Mychart, Generic Never [facility] Clinical Notes 06-17-2021 to 10-13-2024 Kenneth Clifton DPM - 10/13/2024 9:30 AM EDTOle Yang MD - 09/14/2024 10:00 AM EDTTelephone Encounter - SILVIA Branham - 09/08/2024 7:03 PM EDTOle Yang MD - 08/15/2024 2:30 PM EDT [...] 0 min Stress: Stress Concern Present (06/01/2024) [employer] - Occupational Stress Questionnaire Feeling of Stress : Rather much Social Connections: Moderately Isolated (06/01/2024) Social Connection and Isolation Panel [NHANES] Frequency of Communication with Friends and Family: More than three times a week Frequency of Social Gatherings with Friends and Family: Twice a week Attends [employer] Services: Never Active Member of Clubs or [...] edema. Discussed condition in detail. Recommendation for rgty-fii-gttycmw compression stockings at this time and may consider prescription stockings in the future. Kenneth Clifton DPM documented in this encounter [facility] 09-14-2024 History of Presen t [...] and sedentary lifestyle. 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 documented in this encounter [facility] 09-08-2024 Telephone encounter Note OARRS reviewed, Rx sent into patient's pharmacy. [facility] 09-08-2024 Miscellaneous Notes OARRS reviewed, Rx sent into patient's pharmacy. documented in this encounter [facility] 08-15-2024 History of Presen t illness Narrative Images from the original note were not included. Subjective Patient ID: Lluvia Moreno is a 83 y.o. female who presents for No chief complaint on file.. Lluvia presents today for being discharged from a senior living. She says she is feeling much better [...] mg by mouth Daily 60 tablet 3 Qtqidmg-Ltjmxncnicw-Teraetxhms (Breztri Aerosphere) 160-9-4.8 MCG/ACT aerosol Inhale 2 [...] in follow up of recent hospital and senior living stay. All available hospital records were reviewed and discussed with the patient. Hospital discharge meds were reviewed. Any changes are as noted. This office visit was spent in consultation regarding the patient's current medical problems, differential diagnoses, testing/imaging results, and treatment options. Greater than 25 minutes was spent in zecb-[id number]-[id number] consultation and coordination of care. 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 documented in this encounter [facility] 08-11-2024 Note [place] [facility] follow-up note Reason for [...] day by oral route., Disp: , Rfl: oupchafkgc-aitqcnfa-qyjhubfupb (Breztri Aerosphere) 160-9-4.8 mcg/actuation HFA aerosol inhaler, [...] no acute distress. (more content not included)... [facility] 06-02-2024 History of Presen t illness [...] Do you have a medical power of immigration attorney?: Yes Current Outpatient Medications on File [...] mg) by mouth Daily 100 tablet 3 Jyqnwnq-Rzzfckeqear-Rcpoyhuyov (Breztri Aerosphere) 160-9-4.8 MCG/ACT aerosol Inhale 2 [...] failure (CMS/HCC) The patient is seeing a clinical medical transcriptionist for this condition, treatment is deferred to that specialist. Correspondence from that specialist and any available testing were reviewed during today's visit. 11. Chronic atrial fibrillation, unspecified (CMS/HCC) The patient is seeing a clinical medical transcriptionist for this condition, treatment is deferred to that specialist. Correspondence from that specialist and any available testing were reviewed during today's visit. 12. Chronic combined systolic (congestive) and diastolic (congestive) heart failure The patient is seeing a clinical medical transcriptionist for this condition, treatment is deferred to that specialist. Correspondence from that specialist and any available testing were reviewed during today's visit. 13. Chronic systolic dysfunction of left ventricle The patient is seeing a clinical medical transcriptionist for this condition, treatment is deferred to that specialist. Correspondence from that specialist and any available testing were reviewed during today's visit. 14. 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 Correspondence from that specialist and any available testing were reviewed during today's visit. 15. Primary hypertension (CMS/HCC) The patient is seeing a clinical medical transcriptionist for this condition, treatment is deferred to that specialist. Correspondence from that specialist and any available testing were reviewed during today's visit. 16. ICD (implantable cardioverter-defibrillator) in place The patient is seeing a clinical medical transcriptionist for this condition, treatment is deferred to that specialist. Correspondence from that specialist and any available testing were reviewed during today's visit. 17. Non-rheumatic mitral regurgitation The patient is seeing a clinical medical transcriptionist for this condition, treatment is deferred to that specialist. Correspondence from that specialist and any available testing were reviewed during today's visit. 18. Status post biventricular cardiac pacemaker insertion The patient is seeing a clinical medical transcriptionist for this condition, treatment is deferred to that specialist. Correspondence from that specialist and any available testing were reviewed during today's visit. 19. Chronic kidney disease, stage 3b (HCC) ([facility]) This is a chronic medical condition that is stable since last assessment. Will continue to monitor with routine labs. 20. Age-related osteoporosis without current pathological fracture ([facility]) This is a chronic medical condition that [...] by patient at this time. 25. Hyperthyroidism ([facility]) The patient is seeing a clinical medical transcriptionist for this condition, treatment is deferred to [...] Lorazepam as needed. 30. 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 This is a chronic medical condition [...] Dipti CORNELIUS PA-C documented in this encounter [facility] 06-01-2024 History of Presen t [...] on 03/31/18 for lab done in in [facility]: TSH still suppressed 0.07, free T4 [...] hours atorvastatin (LIPITOR) 80 mg, Oral, Daily Zittmtd-Exptxkvrebp-Rriadwvivg (Breztri Aerosphere) 160-9-4.8 MCG/ACT aerosol 2 puffs, [...] Allergies Past Medical History: Diagnosis Date A-fib ([facility]) Arthritis CAD (coronary artery disease) (CMS/HCC) Cerebrovascular [...] months (around 12/01/2024). documented in this encounter [facility] 05-12-2024 Telephone encounter Note Needs sent to [facility] 05-12-2024 Miscellaneous Notes Needs sent to [facility] documented in this encounter [facility] 03-30-2024 History of Presen t [...] mg) by mouth Daily 100 tablet 3 Gecyojg-Ebbghnhkgpx-Xxtskpeyvw (Breztri Aerosphere) 160-9-4.8 MCG/ACT aerosol Inhale 2 [...] this visit: Pulmonary emphysema, unspecified emphysema type ([facility]/HCC) - This is a chronic medical condition that is stable since last assessment. No changes in treatment are suggested at this time. Age-related osteoporosis without current pathological fracture ([facility]) - denosumab (Prolia) injection 60 mg Follow up in about 6 months (around 09/27/2024) for Routine F/U. documented in this encounter [facility] 02-25-2024 History of Presen t [...] 1 TABLET EVERY MORNING 100 tablet 3 Yxbjyof-Tolsvvnnwst-Kgrewglpbd (Breztri Aerosphere) 160-9-4.8 MCG/ACT aerosol Inhale 2 Inhalation in the morning and 2 Inhalation before bedtime. bumetanide (Bumex) 1 MG tablet Take 1 mg by mouth Daily PRN Calcium Carb-Cholecalciferol 600-200 MG-UNIT tablet Take 2 tablets by mouth 1 (one) time each day at the same time cholecalciferol (Vitamin D-3) 50 MCG (1999 UT) capsule Take 2,000 Units by mouth [...] fasting labs. 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 Correspondence from that specialist and any available testing were reviewed during today's visit. Age-related osteoporosis without current pathological fracture ([facility]/HCC) - Vitamin D 25 hydroxy Total; Future Will continue to monitor with routine DEXA scans. Continue Vitamin D and Calcium supplements daily. Cardiomyopathy, unspecified (CMS/HCC) The patient is seeing a clinical medical transcriptionist for this condition, treatment is deferred to that specialist. Correspondence from that specialist and any available testing were reviewed during today's visit. Longstanding persistent atrial fibrillation (CMS/HCC) The patient is seeing a clinical medical transcriptionist for this condition, treatment is deferred to that specialist. Correspondence from that specialist and any available testing were reviewed during today's visit. Chronic obstructive pulmonary disease, unspecified (CMS/HCC) See above. Chronic kidney disease, stage 3b (HCC) (CMS/[facility]) Will continue to monitor with routine labs. 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) The patient is seeing a clinical medical transcriptionist for this condition, treatment is deferred to that specialist. Correspondence from that specialist and any available testing were reviewed during today's visit. Chronic atrial fibrillation, unspecified (CMS/HCC) The patient is seeing a clinical medical transcriptionist for this condition, treatment is deferred to that specialist. Correspondence from that specialist and any available testing were reviewed during today's visit. Supplemental oxygen dependent Using oxygen concentrator, O2 via nasal cannula. Oxygen is medically necessary for patient due to hypoxia and significant CLAIRE without it. Follow up in about 3 months (around 05/27/2024) for Medicare Wellness Visit. documented in this encounter [facility] 01-25-2024 Note [place] [facility] [...] by mouth at bedtime., Disp: , Rfl: hucwzddesh-fjwtjian-psrqophjyr (Breztri Aerosphere) 160-9-4.8 mcg/actuation HFA aerosol inhaler, [...] stress ECG findings (more content not included)... [facility] 12-02-2023 History of Presen t illness [...] on 03/31/18 for lab done in in [facility]: TSH still suppressed 0.07, free T4 [...] hours atorvastatin (LIPITOR) 80 mg, Oral, Daily Efxmjwj-Xhdrotnykii-Uxdoczrhpk (Breztri Aerosphere) 160-9-4.8 MCG/ACT aerosol 2 Inhalation [...] Allergies Past Medical History: Diagnosis Date A-fib ([facility]) Arthritis CAD (coronary artery disease) ([facility]) Cerebrovascular accident ([facility]) Disease of thyroid gland ([facility]) H/O bladder infections Hearing loss Heart disease History of atrial fibrillation History of being hospitalized 08/28/2023 COPD Exacerbation History of echocardiogram 2017 EF 60-65% History of heart artery stent History of knee problem History of pacemaker History of sinus problem History of varicose veins Hyperlipidemia ([facility]/HCC) Hypertension ([facility]/HCC) Hyperthyroidism ([facility]/HCC) Toxic multinodular goiter ([facility]/HCC) Visual impairment Past Surgical History: Procedure Laterality [...] months (around 06/01/2024). documented in this encounter [facility] 11-26-2023 History of Presen t illness Narrative Images from the original note were not included. Subjective Patient ID: Lluvia Moerno is a 83 y.o. female who presents [...] oxygen tank. Does have an appointment with [facility] on 12/09 to get a smaller [...] mouth in the morning. 100 tablet 3 Fibcbhn-Gbuvrywfvpd-Rwrayisvax (Breztri Aerosphere) 160-9-4.8 MCG/ACT aerosol Inhale 2 [...] vaccination - Influenza, high-dose seasonal, quadrivalent, PF (FEJ600) (Fluzone High Dose [place] 0.7mL dose) [...] 02/26/2024) for COPD. documented in this encounter [facility] 10-30-2023 Telephone encounter Note OARRS reviewed, Rx sent into patient's pharmacy. [facility] 10-30-2023 Miscellaneous Notes OARRS reviewed, Rx sent into patient's pharmacy. documented in this encounter [facility] 04-27-2023 History of Presen t [...] like to follow up with her local nursing support worker for regular eyecare/comprehensive exams. Will send [...] (TOPROL XL) 50 mg 24 hr tablet multivitamin,kn-jhgj-Ok-FA-min 27-0.4 mg tablet 1 (one) time each [...] history of COPD (chronic obstructive pulmonary disease) ([facility]) and Hypertension. She has a past surgical [...] accurate and complete. documented in this encounter [facility] 02-11-2023 History of Presen t illness Narrative [...] TAKE 1 TABLET DAILY for 100 days Hoatlfz-Tgblxpnzqrx-Utfhjbtnmi (Breztri Aerosphere) 160-9-4.8 MCG/ACT aerosol Inhale 1 [...] follow-ups on file. documented in this encounter [facility] 08-22-2021 Note EXAMINATION: XR CHES [...] by: JOEL ANDINO Date: 2021-08-22 17:39 [facility] 06-17-2021 Note PROCEDURE: XR FEMUR LT [...] by: JOEL ANDINO Date: 2021-06-17 11:09 [facility] Evaluation note Diagnosis Leg hematoma, right, initial encounter- Primary Current use of senior living anticoagulation Localized edema Edema documented in this [...] fasting glucose 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 (CMS/HCC) Age-related osteoporosis without current pathological fracture (CMS/HCC) Cardiomyopathy, unspecified (CMS/HCC) Longstanding persistent atrial fibrillation (CMS/HCC) Chronic obstructive pulmonary disease, unspecified (CMS/HCC) Chronic kidney disease, stage 3b (HCC) (CMS/HCC) 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) Chronic atrial fibrillation, unspecified (CMS/HCC) Supplemental oxygen dependent Dependence on supplemental oxygen documented in this encounter [facility]* Diagnosis Pulmonary emphysema, unspecified emphysema type (CMS/HCC)- Primary Age-related osteoporosis without current pathological fracture ([facility]/HCC) documented in this encounter [facility]* Diagnosis Esotropia of right eye- Primary Unspecified esotropia Right abducens nerve palsy Double vision Diplopia [facility] Diagnosis Anxiety Anxiety state, unspecified documented in this encounter [facility]* Diagnosis Hyperthyroidism (CMS/HCC)- Primary Thyrotoxicosis without mention of goiter or other cause, without mention of thyrotoxic crisis or storm Multinodular goiter (CMS/HCC) Nontoxic multinodular goiter Longstanding persistent atrial fibrillation ([facility]/HCC) documented in this encounter [facility]* Diagnosis Medicare annual wellness visit, subsequent- Primary ACP (advance care planning) Other specified counseling Estrogen deficiency Other ovarian failure Pulmonary emphysema, unspecified emphysema type (CMS/HCC) Dyspnea on exertion Other dyspnea and respiratory abnormality Hypoxia Hypoxemia Mild intermittent asthma without complication (CMS/HCC) Panlobular emphysema ([facility]/HCC) Other emphysema Supplemental oxygen dependent Dependence on supplemental oxygen Benign hypertensive heart disease with heart failure (CMS/HCC) Chronic atrial fibrillation, unspecified (CMS/HCC) 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 systolic dysfunction of left ventricle 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 (CMS/HCC) Primary hypertension ([facility]/HCC) Unspecified essential hypertension ICD (implantable cardioverter-defibrillator) in place Non-rheumatic mitral regurgitation Status post biventricular cardiac pacemaker insertion Chronic kidney disease, stage 3b (HCC) (CMS/HCC) Age-related osteoporosis without current pathological fracture ([facility]/HCC) Arthritis of right shoulder region Joint derangement of shoulder region Unspecified derangement, shoulder region Primary osteoarthritis involving multiple joints Rotator cuff syndrome of right shoulder Hyperthyroidism (CMS/HCC) Thyrotoxicosis without mention of goiter or other cause, without mention of thyrotoxic crisis or storm Impaired fasting glucose Overweight (BMI 25.0-29.9) Overweight Primary ovarian failure Other ovarian failure Anxiety Anxiety state, unspecified Current use of senior living anticoagulation Diplopia Elevated liver enzymes Other nonspecific abnormal serum enzyme levels Frequent falls History of stroke without residual deficits Transient ischemic attack (TIA), and cerebral infarction without residual deficits Memory changes 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) COPD exacerbation (CMS/HCC) Obstructive chronic bronchitis with exacerbation documented in this encounter [facility]Evaluation noteNo assessment information availableSum[facility] Phone: Evaluation note* Diagnosis Dementia with behavioral disturbance (HCC)- Primary Pulmonary emphysema, unspecified emphysema type (HCC) Hypoxia Hypoxemia Chronic combined systolic (congestive) and diastolic (congestive) heart failure (HCC) Chronic kidney disease, stage 3b (CMS-HCC) 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 documented in this encounter [facility]* Diagnosis Anxiety Anxiety state, unspecified documented in this encounter [facility]* Diagnosis Chronic kidney disease, stage 3b (CMS-HCC)- Primary Chronic combined systolic (congestive) and diastolic (congestive) heart failure (HCC) Supplemental oxygen dependent Dependence on supplemental oxygen Anxiety Anxiety state, unspecified Hyperthyroidism Thyrotoxicosis without mention of goiter or other cause, without mention of thyrotoxic crisis or storm 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 Panlobular emphysema (HCC) Other emphysema Deformity of toenail Unspecified disease of nail documented in this encounter [facility] note* Diagnosis Venous insufficiency- Primary Unspecified venous (peripheral) insufficiency Deformity of toenail Unspecified disease of nail Pain due to onychomycosis of toenails of both feet documented in this encounter [facility] HealthcareInstructions* Attachments The following attachments cannot be sent through Care Everywhere. * Double Vision ([place]) [facility] SystemReason for referral (narrative)No reason for referral information availableSumma [facility] [employer] Work Phone: Summary Purpose Family History No Family History Records FoundNo Family History Records FoundNo Family History Records FoundNo Family History Records FoundNo Family History Records FoundNo Family History Records FoundNo Family History Records Found Advance Directives Documents on File Type Date Recorded Patient Post Splitter Expl anation Power of Womens Health Nurse Practitioner 02/25/2024 12:18 PM Healt hcare Power of Womens Health Nurse Practitioner Documents on File Type Date Recorded Patient Post Splitter Expl anation Power of Womens Health Nurse Practitioner 02/25/2024 12:18 PM Healt hcare Power of Womens Health Nurse Practitioner Reason for Referral Specialty Diagnoses / Procedures Referred By Safia samuels Referred To Contact Radiology Diagnoses Leg hematoma, right, initial encounter 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 Localized edema Procedures Vascular US lower extremity venous duplex right Ole Yang MD [address] [place] [address] [facility] [address] [place] [address] Referral ID Status Reason Start Date Expiration Date Visits Re quested Visits Authorized [id number] Closed 02/12/2023 05/14/2023 1 1 Chief Complaint and Reason for Visit Chief Complaint Admit Date ^ October 25, 2003 6:00am Unknown July 22, 2024 6:10a m Unknown September 26, 2024 1: 30pm Additional Source Comments INFORMATION SOURCE (unrecogn ized section and content) DATE CREATED AUTHOR 10/15/2021 [facility] DATE CREATED AUTHOR AUTHOR'S ORGANIZ ATION 05/18/2022 [facility] DATE CREATED AUTHOR AUTHOR'S ORGANIZ ATION 04/27/2023 [facility] DATE CREATED AUTHOR AUTHOR'S ORGANIZ ATION 06/08/2024 [facility] DATE CREATED AUTHOR AUTHOR'S ORGANIZ ATION 09/30/2024 [facility] DATE CREATED AUTHOR AUTHOR'S ORGANIZ ATION 10/01/2024 [facility] DATE CREATED AUTHOR AUTHOR'S ORGANIZ ATION 10/15/2024 [facility] EPIC Reason for Visit (unrecogniz [...] Care Specialty Diagnoses / Procedures Referred By Conteboni t Referred To Contact Podiatry Diagnoses Deformity of toenail Procedures [place] OFFICE/OUTPATIENT NEW HIGH MDM 60 MINUTES Ole Yang MD [address] [place] [address] Phone: tel: fax: Kenneth Clifton DPM [address] [place] [address] Phone: tel: fax: Referral ID Status Reason Start Date Expiration Date V isits Requested Visits Authorized [id number] Closed Specialty Services Required 09/14/2024 03/13/2025 1 1 Care Teams (unrecognized sec tion and content) Knotting Machine Operator Portable Relationship Specialty Start Date End Date Ole Yang MD [address] [place] [address] PCP - ACO Reach 07/10/22 Ole Yang MD [address] [place] [address] PCP - General Internal Medicine 07/28/22 Knotting Machine Operator Portable Relationship Specialty Start Date End Date Ole Yang MD [address] [place] [address] PCP - ACO Reach 07/10/22 Ole Yang MD [address] [place] [address] PCP - General Internal Medicine 07/28/22ThursdayBea LPN [address] [place] [address] Licensed Practical Nurse Family Medicine 10/27/23 Knotting Machine Operator Portable Relationship Specialty Start Date End Date Ole Yang MD [address] [place] [address] PCP - ACO Reach 07/10/22 Ole Yang MD [address] [place] [address] PCP - General Internal Medicine 07/28/22Thursday, Bea, SOIL CONSERVATIONIST [address] [place] [address] Licensed Practical Nurse Family Medicine 10/27/23 Knotting Machine Operator Portable Relationship Specialty Start Date End Date Ole Yang MD [address] [place] [address] PCP - ACO Reach 07/10/22 Ole Yang MD [address] [place] [address] PCP - General Internal Medicine 07/28/22Thursday, Bea, SOIL CONSERVATIONIST [address] [place] [address] Licensed Practical Nurse Family Medicine 10/27/23 Knotting Machine Operator Portable Relationship Specialty Start Date End Date Ole Yang MD [address] [place] [address] PCP - ACO Reach 07/10/22 Ole Yang MD [address] [place] [address] PCP - General Internal Medicine 07/28/22Thursday, Bea, SOIL CONSERVATIONIST [address] [place] [address] Licensed Practical Nurse Family Medicine 10/27/23 Knotting Machine Operator Portable Relationship Specialty Start Date End Date Ole Yang MD [address] [place] [address] PCP - ACO Reach 07/10/22 Ole Yang MD [address] [place] [address] PCP - General Internal Medicine 07/28/22Thursday, JUAN Figueredo [address] [place] [address] Licensed Practical Nurse Family Medicine 10/27/23 Knotting Machine Operator Portable Relationship Specialty Start Date End Date Ole Yang MD [address] [place] [address] PCP - ACO Reach 07/10/22 Ole Yang MD [address] [place] [address] PCP - General Internal Medicine 07/28/22 Debora Saenz, RN Licensed Practical Nurse Family Medicine 03/25/24 Knotting Machine Operator Portable Relationship Specialty Start Date End Date Ole Yang MD [address] [place] [address] PCP - ACO Reach 07/10/22 Ole Yang MD [address] [place] [address] PCP - General Internal Medicine 07/28/22 Debora Saenz, RN Licensed Practical Nurse Family Medicine 03/25/24 Knotting Machine Operator Portable Relationship Specialty Start Date End Date Ole Yang MD [address] [place] [address] PCP - General Internal Medicine 08/13/22 Knotting Machine Operator Portable Relationship Specialty Start Date End Date Ole Yang MD [address] [place] [address] PCP - ACO Reach 07/10/22 Ole Yang MD [address] [place] [address] PCP - General Internal Medicine 07/28/22 Edna Alcantara SOIL CONSERVATIONIST 05/06/24 Knotting Machine Operator Portable Relationship Specialty Start Date End Date Ole Yang MD [address] [place] [address] PCP - ACO Reach 07/10/22 Ole Yang MD [address] [place] [address] PCP - General Internal Medicine 07/28/22 Edna Alcantara [facility] 05/06/24 Knotting Machine Operator Portable Relationship Specialty Start Date End Date Ole Yang MD [address] [place] [address] PCP - ACO Reach 07/10/22 Ole Yang MD [address] [place] [address] PCP - General Internal Medicine 07/28/22 Edna Alcantara SOIL CONSERVATIONIST 05/06/24 Knotting Machine Operator Portable Relationship Specialty Start Date End Date Ole Yang MD [address] [place] [address] PCP - ACO Reach 07/10/22 Ole Yang MD [address] [place] [address] PCP - General Internal Medicine 07/28/22 Edna Alcantara LPN 05/06/24 Knotting Machine Operator Portable Relationship Specialty Start Date End Date Ole Yang MD [address] [place] [address] PCP - ACO Reach 07/10/22 Ole Yang MD [address] [place] [address] PCP - General Internal Medicine 07/28/22 Edna Alcantara LPN 05/06/24 Team Status: Active Member Role Status Dates Michael Zapien Attending Provider Active Start: October 25, 2003 Team Status: Inactive Member Role Status Dates Luis E Soares MD Attending Provider Active St art: July 22, 2024 End: July 22, 2024 Knotting Machine Operator Portable Relationship Specialty Start Date End Date Ole Yang MD [address] [facility] [address] [place] [address] PCP - ACO Reach 07/10/22 Ole Yang MD [address] [place] [address] PCP - General Internal Medicine 07/28/22 Edan Alcantara LPN 05/06/24 Knotting Machine Operator Portable Relationship Specialty Start Date End Date Ole Yang MD [address] [place] [address] PCP - ACO Reach 07/10/22 Ole Yang MD [address] [place] [address] PCP - General Internal Medicine 07/28/22 Edna Alcantara LPN [address] [place] [address] 05/06/24 Knotting Machine Operator Portable Relationship Specialty Start Date End Date Ole Yang MD [address] [place] [address] PCP - ACO Reach 07/10/22 Ole Yang MD [address] [place] [address] PCP - General Internal Medicine 07/28/22 Edna Alcantara LPN [address] [place] [address] 05/06/24 Knotting Machine Operator Portable Relationship Specialty Start Date End Date Ole Yang MD [address] [place] [address] PCP - ACO Reach 07/10/22 Ole Yang MD [address] [place] [address] PCP - General Internal Medicine 07/28/22 Edna Alcantara LPN [address] [place] [address] 05/06/24 Knotting Machine Operator Portable Relationship Specialty Start Date End Date Ole Yang MD [address] [place] [address] PCP - ACO Reach 07/10/22 Ole Yang MD [address] [place] [address] PCP - General Internal Medicine 07/28/22 Edna Alcantara LPN [address] [place] [address] 05/06/24 Knotting Machine Operator Portable Relationship Specialty Start Date End Date Ole Yang MD [address] [place] [address] PCP - ACO Reach 07/10/22 Ole Yang MD [address] [place] [address] PCP - General Internal Medicine 07/28/22 Edna Alcantara LPN [address] [place] [address] 05/06/24 Knotting Machine Operator Portable Relationship Specialty Start Date End Date Ole Yang MD [address] [place] [address] PCP - ACO Reach 07/10/22 Ole Yang MD [address] [place] [address] PCP - General Internal Medicine 07/28/22 Edna Alcantara LPN [address] [place] [address] 05/06/24 Knotting Machine Operator Portable Relationship Specialty Start Date End Date Ole Yang MD [address] [place] [address] PCP - ACO Reach 07/10/22 Ole Yang MD [address] [place] [address] PCP - General Internal Medicine 07/28/22 Edna Alcantara LPN [address] [place] [address] 05/06/24 Team Status: Inactive Member Role Status Dates Ole Yang II MD Attending Provider Active S tart: September 26, 2024 End: September 26, 2024 Knotting Machine Operator Portable Relationship Specialty Start Date End Date Ole Yang MD [address] [place] [address] PCP - ACO Reach 07/10/22 Ole Yang MD [address] [place] [address] PCP - General Internal Medicine 07/28/22 Edna Alcantara LPN [address] [place] [address] 05/06/24 Knotting Machine Operator Portable Relationship Specialty Start Date End Date Ole Yang MD [address] [place] [address] PCP - ACO Reach 07/10/22 Ole Yang MD [address] [place] [address] PCP - General Internal Medicine 07/28/22 Edna Alcantara LPN [address] [place] [address] 05/06/24 Goals (unrecognized section and content) Goals [...] BE BASED ON THE PRIMARY CLINICAL RECORDS. [facility]. provides no warranty or guarantee of the accuracy or completeness of information in this document.
--- NOTE | 2024-10-22 04:54 | ED.EXTPRO1 ---
Documented by User: Luis E Soares MD 10/22/24 20:21 HPI - Extremity Problem General Chief complaint: Extremity Problem, Nontraumatic Stated complaint: SCIATICA Time Seen by Provider: 10/22/24 04:35 Source: patient Mode of arrival: ambulance Limitations: no limitations History of Present Illness HPI Narrative: patient has past history of A.Fib and takes Eliquis. Working in her yard yesterday. Denies any injury. Developed pain right hip area around 3pm. Increased pain tonight and called Squad. Points to right buttocks as site of pain. Denies numbness or leg weakness. States she can sometimes roll onto her side and the pain will resolve for about 3 minutes. Demonstrated that while I was examining her. No complaint of back pain or abdominal pain. Related Data Home Medications ?Medication ?Instructions ?Recorded ?Confirmed apixaban 5 mg tablet (Eliquis) 5 mg PO Q12H 08/28/23 10/07/24 atorvastatin 80 mg tablet 80 mg PO .QHS 08/28/23 10/07/24 methimazole 10 mg tablet 5 mg PO .QD 08/28/23 10/07/24 metoprolol succinate 50 mg 50 mg PO .QD 08/28/23 10/07/24 tablet,extended release 24 hr paroxetine HCl 20 mg tablet 20 mg PO .QD 08/28/23 10/07/24 spironolactone 25 mg tablet 25 mg PO QAM 08/28/23 10/07/24 albuterol sulfate 90 mcg/actuation 2 puff inhalation Q4H PRN 06/08/24 10/07/24 aerosol inhaler shortness of breath or wheezing aspirin 81 mg capsule 81 mg PO DAILY 06/08/24 10/07/24 brexpiprazole 0.5 mg tablet 0.25 mg PO .qd 07/22/24 10/07/24 (Rexulti) bumetanide 1 mg tablet 1 mg PO DAILY PRN water retention 07/22/24 10/07/24 calcium 600 mg (as 1 cap PO DAILY 07/22/24 10/07/24 carbonate)-vitamin D3 5 mcg (200 unit) capsule (Calcium 600 + D(3)) cholecalciferol (vitamin D3) 25 25 mcg PO DAILY 07/22/24 10/07/24 mcg (1,000 unit) tablet (Vitamin D3) lisinopril 5 mg tablet 2.5 mg PO .QD 07/22/24 10/07/24 multivitamin (Daily Multi-Vitamin 1 tab PO DAILY 07/22/24 10/07/24 tablet) Previous Rx's ?Medication ?Instructions ?Recorded lorazepam 0.5 mg tablet 0.5 mg PO BEDTIME 1 day #1 tab 07/24/24 oxycodone 5 mg capsule 5 mg PO BID PRN pain #6 caps 10/07/24 Allergies Allergy/AdvReac Type Severity Reaction Status Date / Time No Known Drug Allergies Allergy Verified 10/22/24 04:42 Review of Systems ROS Status of ROS 10 or more systems reviewed and unremarkable except as noted in history and below [facility] Medical History (Updated 10/22/24 @ 09:17 by Ambrose Gonzáles DO) Dependence on supplemental oxygen ?Z99.81 - Dependence on supplemental oxygen (ICD-10) Hypoxic episode ?R09.02 - Hypoxemia (ICD-10) COPD exacerbation ?J44.1 - Chronic obstructive pulmonary disease with (acute) exacerbation (ICD-10) CHF (congestive heart failure) ?I50.9 - Heart failure, unspecified (ICD-10) HTN (hypertension) ?I10 - Essential (primary) hypertension (ICD-10) CVA (cerebral vascular accident) ?I63.9 - Cerebral infarction, unspecified (ICD-10) COPD (chronic obstructive pulmonary disease) ?J44.9 - Chronic obstructive pulmonary disease, unspecified (ICD-10) Cardiac defibrillator in place ?Z95.810 - Presence of automatic (implantable) cardiac defibrillator (ICD-10) A-fib ?I48.91 - Unspecified atrial fibrillation (ICD-10) Surgical History (Updated 08/28/23 @ 18:27 by Lo Knapp, CHERI) Hx of appendectomy ?Z90.49 - Acquired absence of other specified parts of digestive tract (ICD-10) History of hysterectomy ?Z90.710 - Acquired absence of both cervix and uterus (ICD-10) Family History (Updated 08/28/23 @ 17:55 by Lo Knapp, RN) Other Family history of CHF (congestive heart failure) Family history of COPD (chronic obstructive pulmonary disease) Family history of cancer Family history of hypertension Family history of myocardial infarction Family history of stroke Social History (Updated 08/28/23 @ 17:56 by Lo Knapp RN) Within the past year, how often did you have a drink containing alcohol: monthly or less Within the past year, how many standard drinks containing alcohol did you have on a typical day: 1 or 2 Within the past year, how often did you have six or more drinks on one occasion: never Total score: 0 Score interpretation: A score less than 3 is consistent with normal alcohol consumption. Smoking status: Never smoker Non-prescribed substance use: denies use Highest level of school completed/degree received: high school graduate In a typical week, how many times do you talk on the telephone with family, friends, or neighbors: 3 or more times per week How often do you get together with friends or relatives: 3 or more times per week How often do you attend scientology or confucianism services: never Little interest or pleasure in doing things: not at all Feeling down, depressed, or hopeless: not at all Feel stressed/tense/nervous/anxious/difficulty sleeping: not at all Do you think of yourself as: straight/heterosexual Gender Identity: female Exam Constitutional Vital Signs, click to edit/add: Last Vital Signs Temp 98 F 10/22/24 04:35 Pulse 88 10/22/24 08:17 Resp 20 10/22/24 08:17 BP 174/88 H 10/22/24 08:17 Pulse Ox 99 10/22/24 08:17 O2 Del Method Nasal Cannula 10/22/24 04:35 O2 Flow Rate 2 10/22/24 08:17 Common normals: average body habitus, oriented x3, healthy appearing, alert and well nourished General appearance: in distress [facility] Common normals: normocephalic and head/scalp atraumatic Eye Common normals: EOMs intact bilaterally and conjunctivae normal Respiratory Common normals: normal respiratory effort, no retractions, no use of accessory muscles and clear to auscultation bilaterally Cardio Rhythm: abnormal rhythm GI Common normals: Normal to inspection, nondistended, normoactive bowel sounds present, soft to palpation and non-tender Back & Pelvis Common normals: no CVA tenderness Back image (female):  1. very tender. cries out in pain Extremity Common normals: normal to inspection Neuro Common normals: oriented x3, CN's II-XII intact bilaterally, moves all extremities and no focal motor deficits Psych Appearance: grossly normal Course Vital Signs Vital signs: Vital Signs Temperature 98 F 10/22/24 04:35 Pulse Rate 70 10/22/24 04:35 Respiratory Rate 18 10/22/24 04:35 Blood Pressure 191/70 H 10/22/24 04:35 Pulse Oximetry 99 10/22/24 04:35 Oxygen Delivery Method Nasal Cannula 10/22/24 04:35 Oxygen Delivery Flow Rate 2 10/22/24 04:35 Temperature 98 F 10/22/24 04:35 Pulse Rate 88 10/22/24 08:17 Respiratory Rate 20 10/22/24 08:17 Blood Pressure 174/88 H 10/22/24 08:17 Pulse Oximetry 99 10/22/24 08:17 Oxygen Delivery Method Nasal Cannula 10/22/24 04:35 Oxygen Delivery Flow Rate 2 10/22/24 08:17 MDM - Extremity (Nontraumatic) MDM Narrative Medical decision making narrative: patient presents clinically with what appears to be acute sciatica pain down her right lower extremity. Has pain right buttocks that is tender and reproduces her symptoms. labs with elevated inflammatory markers but normal WBC. labs demonstrate CKD. xrays of right hip and CT L-spine ordered. Diagnostic studies pending Lab Data Labs: Lab Results 10/22/24 Range/Units 05:00 WBC 10.7 (4.0-11.0) 10^3/uL RBC 4.02 L (4.20-5.40) 10^6/uL Hgb 11.4 L (12.0-16.0) g/dL Hct 35.3 L (36.0-48.0) % MCV 87.8 (81.0-99.0) fL MCH 28.4 (26.7-34.0) pg MCHC 32.3 (29.9-35.2) g/dL RDW 14.6 (11.0-15.0) % Plt Count 354 (150-450) 10^3/uL MPV 8.9 L (9.5-13.5) fL Neut % (Auto) 70.8 (43.0-75.0) % Lymph % (Auto) 16.5 L (20.5-60.0) % Delta % (Auto) 9.7 (1.7-12.0) % Eos % (Auto) 2.0 (0.9-7.0) % Baso % (Auto) 0.3 (0.2-2.0) % Neut # (Auto) 7.6 H (1.4-6.5) 10^3/uL Lymph # (Auto) 1.8 (1.2-3.8) 10^3/uL Delta # (Auto) 1.0 H (0.3-0.8) 10^3/uL Eos # (Auto) 0.2 (0.0-0.7) 10^3/uL Baso # (Auto) 0.0 (0.0-0.1) 10^3/uL Abs Immat Gran (auto) 0.07 H (0.00-0.03) 10^3/uL Imm/Tot Granulo (auto) 0.7 H (0.0-0.5) % ESR >130 H (<=30) mm/hr Sodium 141 (136-145) mmol/L Potassium 5.1 (3.5-5.1) mmol/L Chloride 104 (98-107) mmol/L Carbon Dioxide 27.0 (21.0-32.0) mmol/L Anion Gap 15.1 BUN 41.0 H (7.0-18.0) mg/dL Creatinine 1.35 H (0.55-1.02) mg/dL Est GFR ( Amer) 45 L (>=60 mL/min/1.73m^2) Est GFR (Non-Af Amer) 38 L (>=60 mL/min/1.73m^2) BUN/Creatinine Ratio 30.4 Glucose 142 H (74-106) mg/dL Calcium 9.8 (8.5-10.1) mg/dL C-Reactive Protein 2.73 H (<=0.50) mg/dL Discharge Plan Discharge Chief Complaint: Extremity Problem, Nontraumatic Clinical Impression: Leg pain, right, Sciatica Patient Disposition: Home, Self-Care Time of Disposition Decision: 09:17 Condition: Good Mode of Transportation: Private Vehicle Prescriptions / Home Meds: No Action albuterol sulfate 90 mcg/actuation HFA aerosol inhaler 2 puff INHALATION Q4H PRN (Reason: shortness of breath or wheezing) aspirin 81 mg capsule 81 mg PO DAILY lisinopril 5 mg tablet 2.5 mg PO .QD Rexulti 0.5 mg tablet 0.25 mg PO .qd multivitamin [Daily Multi-Vitamin] Tablet 1 tab PO DAILY cholecalciferol (vitamin D3) [Vitamin D3] 25 mcg (1,000 unit) tablet 25 mcg PO DAILY calcium carbonate-vitamin D3 [Calcium 600 + D(3)] 600 mg-5 mcg (200 unit) capsule 1 cap PO DAILY bumetanide 1 mg tablet 1 mg PO DAILY PRN (Reason: water retention) lorazepam 0.5 mg tablet 0.5 mg PO BEDTIME 1 Days Qty: 1 0RF atorvastatin 80 mg tablet 80 mg PO .QHS metoprolol succinate 50 mg tablet extended release 24 hr 50 mg PO .QD spironolactone 25 mg tablet 25 mg PO QAM paroxetine HCl 20 mg tablet 20 mg PO .QD methimazole 10 mg tablet 5 mg PO .QD Patient Comments: pt takes 1/2 pill only on Thursday, Thursday, , Thursday. Does NOT take on Thursday, Thursday, and Thursday Eliquis 5 mg tablet 5 mg PO Q12H oxycodone 5 mg capsule 5 mg PO BID PRN (Reason: pain) Qty: 6 0RF Print Language: Djiboutian Instructions: Sciatica (ED) Referrals: RUDY DIAZ [Primary Care Provider, Internal Medicine] - 1 week Discharge Date/Time: 10/22/24 09:51 Documented by User: Ambrose Gonzáles DO 10/22/24 09:35 HPI - Extremity Problem General Chief complaint: Extremity Problem, Nontraumatic Stated complaint: SCIATICA Time Seen by Provider: 10/22/24 04:35 Related Data Home Medications ?Medication ?Instructions ?Recorded ?Confirmed apixaban 5 mg tablet (Eliquis) 5 mg PO Q12H 08/28/23 10/07/24 atorvastatin 80 mg tablet 80 mg PO .QHS 08/28/23 10/07/24 methimazole 10 mg tablet 5 mg PO .QD 08/28/23 10/07/24 metoprolol succinate 50 mg 50 mg PO .QD 08/28/23 10/07/24 tablet,extended release 24 hr paroxetine HCl 20 mg tablet 20 mg PO .QD 08/28/23 10/07/24 spironolactone 25 mg tablet 25 mg PO QAM 08/28/23 10/07/24 albuterol sulfate 90 mcg/actuation 2 puff inhalation Q4H PRN 06/08/24 10/07/24 aerosol inhaler shortness of breath or wheezing aspirin 81 mg capsule 81 mg PO DAILY 06/08/24 10/07/24 brexpiprazole 0.5 mg tablet 0.25 mg PO .qd 07/22/24 10/07/24 (Rexulti) bumetanide 1 mg tablet 1 mg PO DAILY PRN water retention 07/22/24 10/07/24 calcium 600 mg (as 1 cap PO DAILY 07/22/24 10/07/24 carbonate)-vitamin D3 5 mcg (200 unit) capsule (Calcium 600 + D(3)) cholecalciferol (vitamin D3) 25 25 mcg PO DAILY 07/22/24 10/07/24 mcg (1,000 unit) tablet (Vitamin D3) lisinopril 5 mg tablet 2.5 mg PO .QD 07/22/24 10/07/24 multivitamin (Daily Multi-Vitamin 1 tab PO DAILY 07/22/24 10/07/24 tablet) Previous Rx's ?Medication ?Instructions ?Recorded lorazepam 0.5 mg tablet 0.5 mg PO BEDTIME 1 day #1 tab 07/24/24 oxycodone 5 mg capsule 5 mg PO BID PRN pain #6 caps 10/07/24 Allergies Allergy/AdvReac Type Severity Reaction Status Date / Time No Known Drug Allergies Allergy Verified 10/22/24 04:42 [facility] Medical History (Updated 10/22/24 @ 09:17 by Ambrose Gonzáles DO) Dependence on supplemental oxygen ?Z99.81 - Dependence on supplemental oxygen (ICD-10) Hypoxic episode ?R09.02 - Hypoxemia (ICD-10) COPD exacerbation ?J44.1 - Chronic obstructive pulmonary disease with (acute) exacerbation (ICD-10) CHF (congestive heart failure) ?I50.9 - Heart failure, unspecified (ICD-10) HTN (hypertension) ?I10 - Essential (primary) hypertension (ICD-10) CVA (cerebral vascular accident) ?I63.9 - Cerebral infarction, unspecified (ICD-10) COPD (chronic obstructive pulmonary disease) ?J44.9 - Chronic obstructive pulmonary disease, unspecified (ICD-10) Cardiac defibrillator in place ?Z95.810 - Presence of automatic (implantable) cardiac defibrillator (ICD-10) A-fib ?I48.91 - Unspecified atrial fibrillation (ICD-10) Surgical History (Updated 08/28/23 @ 18:27 by Lo Knapp, RN) Hx of appendectomy ?Z90.49 - Acquired absence of other specified parts of digestive tract (ICD-10) History of hysterectomy ?Z90.710 - Acquired absence of both cervix and uterus (ICD-10) Family History (Updated 08/28/23 @ 17:55 by Lo Knapp, RN) Other Family history of CHF (congestive heart failure) Family history of COPD (chronic obstructive pulmonary disease) Family history of cancer Family history of hypertension Family history of myocardial infarction Family history of stroke Social History (Updated 08/28/23 @ 17:56 by Lo Knapp, RN) Within the past year, how often did you have a drink containing alcohol: monthly or less Within the past year, how many standard drinks containing alcohol did you have on a typical day: 1 or 2 Within the past year, how often did you have six or more drinks on one occasion: never Total score: 0 Score interpretation: A score less than 3 is consistent with normal alcohol consumption. Smoking status: Never smoker Non-prescribed substance use: denies use Highest level of school completed/degree received: high school graduate In a typical week, how many times do you talk on the telephone with family, friends, or neighbors: 3 or more times per week How often do you get together with friends or relatives: 3 or more times per week How often do you attend scientology or confucianism services: never Little interest or pleasure in doing things: not at all Feeling down, depressed, or hopeless: not at all Feel stressed/tense/nervous/anxious/difficulty sleeping: not at all Do you think of yourself as: straight/heterosexual Gender Identity: female Exam Constitutional Vital Signs, click to edit/add: Last Vital Signs Temp 98 F 10/22/24 04:35 Pulse 88 10/22/24 08:17 Resp 20 10/22/24 08:17 BP 174/88 H 10/22/24 08:17 Pulse Ox 99 10/22/24 08:17 O2 Del Method Nasal Cannula 10/22/24 04:35 O2 Flow Rate 2 10/22/24 08:17 Back & Pelvis Back image (female):  1. very tender. cries out in pain Course Vital Signs Vital signs: Vital Signs Temperature 98 F 10/22/24 04:35 Pulse Rate 70 10/22/24 04:35 Respiratory Rate 18 10/22/24 04:35 Blood Pressure 191/70 H 10/22/24 04:35 Pulse Oximetry 99 10/22/24 04:35 Oxygen Delivery Method Nasal Cannula 10/22/24 04:35 Oxygen Delivery Flow Rate 2 10/22/24 04:35 Temperature 98 F 10/22/24 04:35 Pulse Rate 88 10/22/24 08:17 Respiratory Rate 20 10/22/24 08:17 Blood Pressure 174/88 H 10/22/24 08:17 Pulse Oximetry 99 10/22/24 08:17 Oxygen Delivery Method Nasal Cannula 10/22/24 04:35 Oxygen Delivery Flow Rate 2 10/22/24 08:17 MDM - Extremity (Nontraumatic) MDM Narrative Medical decision making narrative: patient presents clinically with what appears to be acute sciatica pain down her right lower extremity. Has pain right buttocks that is tender and reproduces her symptoms. labs with elevated inflammatory markers but normal WBC. labs demonstrate CKD. xrays of right hip and CT L-spine ordered. Diagnostic studies pending. ADDENDUM, Dr. Gonzáles: Patient was signed out to me by Dr. Soares pending work-up. Laboratory studies were unremarkable. No significant electrolyte or metabolic derangement. No evidence of acute kidney injury. No anemia, leukocytosis, or thrombocytopenia. CT of the lumbar spine demonstrated multilevel degenerative disc disease grossly unchanged from 10/07/2024. X-rays of the hip/pelvis demonstrated degenerative changes without acute osseous abnormalities. On reevaluation, the patient states she feels improved. She is requesting to be discharged home. The patient was able to stand up and ambulate well. Her pain is under control. The family then presented to the emergency department concerned that the patient needs a psychiatric consult. She has been having behavioral outburst and threatening suicide at home. The patient has no known history of psychiatric disorders. She has no prior suicide attempts. On review of external documentations, hospitalist believe the patient may have early stages of dementia. I had a long lengthy discussion with the patient about any thoughts of suicide. She adamantly denies having any thoughts of suicide or homicidal ideation. She denies any current visual or auditory hallucinations. She states she would never kill herself because it is against my mandaen . She also states she has beautiful granddaughters and would never kill herself because she wants to see them grow up. Additionally, she states that it is the anniversary of her brother's , and when she grieves, she becomes angry. She states that the reason she is having behavioral outburst is to spite her family as she has ongoing interpersonal conflicts with multiple family members. After speaking with the family, she has no access to medications as they control her meds. She has no access to firearms or weapons in the house. Taking all this into consideration, the patient is of sound mind and body. She is A&Ox4 and is capable of making her own medical decisions. I do not believe she requires inpatient psychiatric evaluation or hospitalization. I discussed with the family members that she would benefit from outpatient social services manager for further resources. They are instructed to continue following up with her PCP for further care. FINAL IMPRESSION: #Acute on chronic right-sided lumbar radiculopathy #Acute behavioral outburst DISPOSITION: Discharged home CONDITION: Good Lab Data Labs: Lab Results 10/22/24 Range/Units 05:00 WBC 10.7 (4.0-11.0) 10^3/uL RBC 4.02 L (4.20-5.40) 10^6/uL Hgb 11.4 L (12.0-16.0) g/dL Hct 35.3 L (36.0-48.0) % MCV 87.8 (81.0-99.0) fL MCH 28.4 (26.7-34.0) pg MCHC 32.3 (29.9-35.2) g/dL RDW 14.6 (11.0-15.0) % Plt Count 354 (150-450) 10^3/uL MPV 8.9 L (9.5-13.5) fL Neut % (Auto) 70.8 (43.0-75.0) % Lymph % (Auto) 16.5 L (20.5-60.0) % Delta % (Auto) 9.7 (1.7-12.0) % Eos % (Auto) 2.0 (0.9-7.0) % Baso % (Auto) 0.3 (0.2-2.0) % Neut # (Auto) 7.6 H (1.4-6.5) 10^3/uL Lymph # (Auto) 1.8 (1.2-3.8) 10^3/uL Delta # (Auto) 1.0 H (0.3-0.8) 10^3/uL Eos # (Auto) 0.2 (0.0-0.7) 10^3/uL Baso # (Auto) 0.0 (0.0-0.1) 10^3/uL Abs Immat Gran (auto) 0.07 H (0.00-0.03) 10^3/uL Imm/Tot Granulo (auto) 0.7 H (0.0-0.5) % ESR >130 H (<=30) mm/hr Sodium 141 (136-145) mmol/L Potassium 5.1 (3.5-5.1) mmol/L Chloride 104 (98-107) mmol/L Carbon Dioxide 27.0 (21.0-32.0) mmol/L Anion Gap 15.1 BUN 41.0 H (7.0-18.0) mg/dL Creatinine 1.35 H (0.55-1.02) mg/dL Est GFR ( Amer) 45 L (>=60 mL/min/1.73m^2) Est GFR (Non-Af Amer) 38 L (>=60 mL/min/1.73m^2) BUN/Creatinine Ratio 30.4 Glucose 142 H (74-106) mg/dL Calcium 9.8 (8.5-10.1) mg/dL C-Reactive Protein 2.73 H (<=0.50) mg/dL Discharge Plan Discharge Chief Complaint: Extremity Problem, Nontraumatic Clinical Impression: Leg pain, right, Sciatica Patient Disposition: Home, Self-Care Time of Disposition Decision: 09:17 Condition: Good Mode of Transportation: Private Vehicle Prescriptions / Home Meds: No Action albuterol sulfate 90 mcg/actuation HFA aerosol inhaler 2 puff INHALATION Q4H PRN (Reason: shortness of breath or wheezing) aspirin 81 mg capsule 81 mg PO DAILY lisinopril 5 mg tablet 2.5 mg PO .QD Rexulti 0.5 mg tablet 0.25 mg PO .qd multivitamin [Daily Multi-Vitamin] Tablet 1 tab PO DAILY cholecalciferol (vitamin D3) [Vitamin D3] 25 mcg (1,000 unit) tablet 25 mcg PO DAILY calcium carbonate-vitamin D3 [Calcium 600 + D(3)] 600 mg-5 mcg (200 unit) capsule 1 cap PO DAILY bumetanide 1 mg tablet 1 mg PO DAILY PRN (Reason: water retention) lorazepam 0.5 mg tablet 0.5 mg PO BEDTIME 1 Days Qty: 1 0RF atorvastatin 80 mg tablet 80 mg PO .QHS metoprolol succinate 50 mg tablet extended release 24 hr 50 mg PO .QD spironolactone 25 mg tablet 25 mg PO QAM paroxetine HCl 20 mg tablet 20 mg PO .QD methimazole 10 mg tablet 5 mg PO .QD Patient Comments: pt takes 1/2 pill only on Thursday, Thursday, , Thursday. Does NOT take on Thursday, Thursday, and Thursday Eliquis 5 mg tablet 5 mg PO Q12H oxycodone 5 mg capsule 5 mg PO BID PRN (Reason: pain) Qty: 6 0RF Print Language: Djiboutian Instructions: Sciatica (ED) Referrals: RUDY DIAZ [Primary Care Provider, Internal Medicine] - 1 week Discharge Date/Time: 10/22/24 09:51
--- NOTE | 2024-10-22 05:01 | XR_ITS ---
The [address] [address] Patient Name: SALINA MORENO MRN: [id number] date: 1940 Sex: F Assigned Patient Location: ED.MAIN Current Patient Location: ED.MAIN Accession/Order Number: [id number] Exam Date: 10/22/2024 05:55 Report Date: 10/22/2024 08:54 At the request of: KRISTY PELAEZ MD Procedure: XR hip RT 2V w/ pelvis 2 views right hip 1 view pelvis. Reason for exam: Right hip pain that radiates down leg. COMPARISON: Right hip series 10/07/2024. FINDINGS: Severe left and moderate degenerative changes of the hips. No acute bony process is seen. Bones are grossly demineralized. Additional degenerative changes seen involving the visualized lower lumbar spine, SI joints and pubic symphysis. XR/XR hip RT 2V w/ pelvis IMPRESSION: Degenerative changes involving the bony pelvis and hips most severe at the left hip without acute bony process. Impression dictated by: Bucky Powell Jr., D.O. 10/22/2024 8:54 AM Dictation Location: [place] [address] Electronically authenticated by: [id number] Y Date: 10/22/2024 08:54
--- NOTE | 2024-10-22 05:02 | CT_ITS ---
The [address] [address] Patient Name: SALINA MORENO MRN: [id number] date: 1940 Sex: F Assigned Patient Location: ED.MAIN Current Patient Location: ED.MAIN Accession/Order Number: [id number] Exam Date: 10/22/2024 05:55 Report Date: 10/22/2024 08:58 At the request of: KRISTY PELAEZ MD Procedure: CT lumbar spine w con CT lumbar spine w con 10/22/2024 6:16 AM History:Right radicular pain. TECHNIQUE: Multi detector CT axial slices of the lumbar spine were obtained with IV contrast. Volumetric acquisition sagittal, coronal, and 3-D reconstructions were performed and reviewed on a separate workstation. CT was performed with one or more of the following dose reduction techniques: Automated exposure control, adjustment of the mA and/or kV according to patient size, or use of iterative reconstruction technique. COMPARISON: Lumbar spine 10/07/2024. FINDINGS: No fracture. Vertebral body heights appear maintained. Scattered endplate and facet joint degenerative changes with severe disc space narrowing T10-L2 and moderate disc space narrowing L4-L5 and L5-S1. There is associated 7 mm of anterolisthesis of L4 on L5. Configuration is grossly unchanged from the prior x-ray study. Transverse processes appear intact. SI joints demonstrate degenerative change. No enhancing paraspinal mass. Visualized retroperitoneum demonstrates no acute findings. Visualized portions of the pelvis demonstrate no acute intrapelvic abnormality. CT/CT lumbar spine w con IMPRESSION: Multilevel degenerative disc disease grossly unchanged from the 10/07/2024 study. No acute bony process is noted. Impression dictated by: Bucky Powell Jr., D.O. 10/22/2024 8:58 AM Dictation Location: [email or web address] Electronically authenticated by: [id number] Y Date: 10/22/2024 08:58
[2024-10-22] MEDS: METHYLPREDNISOLONE SOD SUCC PF 125 MG/2 ML VIAL IVP (05:10)
[2024-10-22] MEDS: MAGNESIUM SULFATE IN WATER 2 GM/50 ML PREMIX IV (05:10)
[2024-10-22] MEDS: FENTANYL CITRATE/PF 100 MCG/2 ML VIAL 50 MCG IV (05:10)
[2024-10-22 05:13] LABS: Hematocrit 35.3 % (36.0-48.0); Hemoglobin 11.4 g/dL (12.0-16.0); Immature Granulocytes Abs Auto 0.07 10^3/uL (0.00-0.03); Immature Granulocytes Pct Auto 0.7 % (0.0-0.5); Lymphocytes Absolute Auto 1.8 10^3/uL (1.2-3.8); Mean Corpuscular HGB Conc 32.3 g/dL (29.9-35.2); Mean Corpuscular Hemoglobin 28.4 pg (26.7-34.0); Mean Corpuscular Volume 87.8 fL (81.0-99.0); Platelet Count 354 10^3/uL (150-450); Red Blood Count 4.02 10^6/uL (4.20-5.40); White Blood Count 10.7 10^3/uL (4.0-11.0)
[2024-10-22 05:21] LABS: Anion Gap 15.1; Blood Urea Nitrogen 41.0 mg/dL (7.0-18.0); Calcium 9.8 mg/dL (8.5-10.1); Carbon Dioxide 27.0 mmol/L (21.0-32.0); Chloride 104 mmol/L (98-107); Estimated GFR (African America 45 (>=60 mL/min/1.73m^2); Estimated GFR (Non-African Ame 38 (>=60 mL/min/1.73m^2); Glucose 142 mg/dL (74-106); Potassium 5.1 mmol/L (3.5-5.1); Sodium 141 mmol/L (136-145)
[2024-10-22] MEDS: FENTANYL CITRATE/PF 100 MCG/2 ML VIAL IV (06:33)
[2024-10-22 08:17] VITALS: BP 174/88; PULSE 88; O2SAT 99
== END 2024-10-22 09:51 | disposition home or self-care (01) ==
PROVIDERS: Emergency Provider Internal Medicine; PCP Internal Medicine
DX: M54.31 Sciatica, right side (principal); I48.91 Unspecified atrial fibrillation; Z79.01 Long term (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; Z90.49 Acquired absence of other specified parts of digestive tract; Z90.710 Acquired absence of both cervix and uterus; M79.604 Pain in right leg
CPT/HCPCS: 36415; 72132; 73502; 76376; 80048; 85025; 85652; 86140; 96365; 96375; 96376; 99285; J2919; J3010; J3475; Q9967

== ENCOUNTER 2024-12-16 13:42 | Outpatient (OUT) | payer MEDICARE, OTHER, SELFPAY ==
--- OUTSIDE RECORDS SUMMARY | 2024-12-05 20:00 | XMS_ITS | Clinical Summary ---
Author Organization Unknown Care Team Providers Care Pelt Inspector Name Role Phone EMILY ELISE, RUDY Unavailable Unavailable LORNE COOLEYN, EFRAÍN Unavailable Unavailable JESUS ROSAS, KYARA Unavailable Unavailable CASE CHESTNUT TANNER, ROSI Unavailable Unavailable FRETZ OT, AMELIA Unavailable Unavailable DANIEL PT, LANE Unavailable Unavailable FLOR RN, GOYO Unavailable Unavailable TARIK ALONZO, HAYDEN Unavailable Unavailable Payers Payer Name Policy Type Policy Number Effective Date Expira tion Date MEDICARE - [place] - PDGM [id number] Problems Condition Name Condition Details Condition Category Status Onset Date Resolution Date Last Treatment Date Treating Clinician Comments CHRONIC OBSTRUCTIVE PULMONARY DISEASE, U NSPECIFIED Sgijvs5247-42-22 00:00:00UNSPECIFIED ATRIAL IDTNTLVLVDGTTwhstz5909-23-75 00:00:00HYPERTENSIVE HEART DISEASE WITH HEART FTTPBMHSmrxyz4888-39-32 00:00:00 HEART FAILURE, BJRDYDJGAKWSyqqmh6780-25-60 00:00:00ANXIETY DISORDER, UNSPECIFIED Nzboeq3157-17-79 00:00:00DEPRESSION, FDTVJNGMSBNWukupt2865-60-21 00:00:00 HYPERLIPIDEMIA, TCZGPGRGLYFOchtee8516-03-86 00:00:00THYROTOXICOSIS, 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 WVHOGLvseyp9092-08-21 00:00:00VITAMIN D DEFICIENCY, FBKRPJVMKYBZmppef5837-11-35 00:00:00OBESITY, TMDVKVVPDTCRlmdbs7460-27-16 00:00:00BODY MASS INDEX [BMI] 27.0-27.9, PXNUEIbqhct3169-31-43 00:00:00PRSNL HX OF TIA (TIA), 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 CDVBNDHLOkzoqf6881-92-99 00:00:00 PERSONAL HISTORY OF URINARY (TRACT) ACRPEUXOHJGppens5479-18-98 00:00:00Problems related to health ybrhvgggJjzkph0771-01-35 00:00:00SOCIAL EXCLUSION AND VSTFEIGLZNaskdk6630-57-38 00:00:00LONG TERM (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 OF ASPIRINActive 2024-02-17 00:00:00LONG TERM (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 OF OROVXWYOGALGWDJwfqaw9291-11-25 00:00:00 Allergies, Adverse Reactions, Alerts Allergy Name Allergy Type Status Severity Reaction(s) Onset Date Inactive Date Treating Clinician Comments NKA Propensity to adverse reactions Active 2024-08-11 10:36:27 Medications Ordered Medication Name Filled Medication Name Start Date Stop Date Current Medication? Ordering Clinician Indication Dosage Frequency Signature (SIG) Comments Components Rexulti 0.5 mg tablet 2024-07-21 00:00: 23:59:[id number] tabletDAILY0.5 tablet DAILY (route: oral)Med Classification: Central Nervous System Agentsalbuterol sulfate HFA 90 mcg/actuation aerosol jbqlghb0423-16-71 00:00:[id number] puffAS NEEDED2 puff NEEDED (route: inhalation)Med Classification: Respiratory Therapy AgentsAspirin Childrens 81 mg chewable iuzmxv9559-49-26 00:00:00Yes [id number] tabletDAILY1 tablet DAILY (route: oral)Med Classification: Hematological Agentsatorvastatin 80 mg jwkkws6109-39-83 00:00:[id number] tabletDAILY1 tablet DAILY (route: oral)Med Classification: Cardiovascular Therapy Agentsbumetanide 1 mg njjxuh2476-87-13 00:00:[id number] tabletAS NEEDED1 tablet NEEDED (route: oral)Med Classification: Cardiovascular Therapy AgentsCalcium-600 600 mg (as calcium carbonate 1,500 mg) dxjvts6219-17-95 00:00:[id number] tabletDAILY2 tablet DAILY (route: oral)Med Classification: Electrolyte Balance-Nutritional ProductsEliquis 5 mg tablet 2024-08-11 00:00:[id number] tablet2 TIMES DAILY1 tablet 2 TIMES DAILY (route: oral)Med Classification: Hematological Agentslisinopril 5 mg tablet 2024-08-11 00:00: 23:59:48Um47100652245.5 tabletDAILY0.5 tablet DAILY (route: oral)Med Classification: Cardiovascular Therapy Agentslorazepam 0.5 mg tgclha8941-04-57 00:00: 23:59:[id number] tabletBEDTIME1 tablet BEDTIME (route: oral)Med Classification: Central Nervous System Agents methimazole 10 mg lulpeh7713-85-78 00:00:87Pug01408337994.5 tabletAS DIRECTED0.5 tablet DIRECTED (route: oral)Med Classification: Endocrinemetoprolol succinate ER 50 mg tablet,extended release 24 ao3902-24-81 00:00:[id number] 1 tabletDAILY1 tablet DAILY (route: oral)Med Classification: Cardiovascular Therapy AgentsMultivitamin 50 Plus jgikxj4654-22-12 00:00:[id number] tabletDAILY1 tablet DAILY (route: oral)Med Classification: Electrolyte Balance- Nutritional Productsparoxetine 20 mg feslnj7470-23-53 00:00:[id number] tabletDAILY1 tablet DAILY (route: oral)Med Classification: Central Nervous System Agentsspironolactone 25 mg oychpk7303-65-85 00:00: 23:59:00No [id number] tabletDAILY1 tablet DAILY (route: oral)Med Classification: Cardiovascular Therapy AgentsVitamin D3 25 mcg (1,000 unit) haqhjyi0462-98-28 00:00:[id number] capsuleDAILY1 capsule DAILY (route: oral)Med Classification: Electrolyte Balance-Nutritional ProductsRexulti 0.25 mg tablet 2024-10-20 00:00:65Zrc2927200669xiihnodn4.25 mgDAILY0.25 mg DAILY (route: oral) Med Classification: Central Nervous System Agentsmelatonin 5 mg enxwch7729-60-91 00:00:16Wjh57628160501 tabletAS NEEDED1 tablet NEEDED (route: oral)Med Classification: Central Nervous System Agents Vital Signs Vital Name Observation Time Observation Value Commen ts Temperature 2024-12-06 13:49:00.000 97.9 [degF] Pdptuytxsks3139-75-78 11:34:00.68401.6 [degF]Artqzyvtvwe4586-23-19 15:15:00.000 98 [degF]Jfgxtlmynxo3657-61-30 10:52:00.70729.4 [degF]Ajaattfhoxm2937-25-95 10:57:00.83863.1 [degF]Eeqkhbvujho4814-25-33 09:01:00.69646.9 [degF]Temperature 2024-11-22 18:13:00.30348.9 [degF]Ijifggzxrjj5765-85-83 09:38:00.58742.9 [degF] Fwvnqojjegl3555-71-42 11:08:00.30138.1 [degF]Miyiejoaxkd6071-41-64 09:39:00.000 97.9 [degF]Yicxwdepdbs4359-41-85 10:36:00.86418 [degF]Gmkyagvmwae2190-92-26 08:14:00.79214.9 [degF]Rzhopxwjhwf6039-91-19 10:18:00.28883.4 [degF]Temperature 2024-11-09 14:44:00.26848 [degF]Macqhfhvtdy3553-56-27 11:09:00.52926 [degF] Ngommogcmkx9515-09-24 11:46:00.09197.3 [degF]Prvlrcbwlql9800-82-66 16:03:00.000 98.6 [degF]Eyrghzfkuqh0991-51-47 12:27:00.56766.6 [degF]Irtrzrtfezy9591-84-94 16:25:00.59585 [degF]Axymbrfeytp6473-23-59 14:11:00.11433.7 [degF]BMI (%) 2024-11-05 11:46:00.18058 kg/t6Pkvnms8728-73-23 11:46:00.06582 [in_us]Pulse 2024-12-06 13:49:00.63747 /arvTdlnd6071-38-01 11:34:00.35949 /ojgUatgh5640-49-04 15:15:00.97862 /pcyYjoue9149-36-47 10:52:00.99699 /ollUoyci3619-17-71 10:57:00.06094 /jwjBsblv3712-12-52 09:01:00.45282 /ncuVajif3573-99-31 18:13:00.62926 /ouoOdlyj3114-53-39 09:38:00.23992 /uyrItlmo9387-09-21 11:08:00.14653 /mtnKaanp0613-69-69 09:39:00.98780 /itpRcnlt0594-03-82 10:36:00.11852 /ruuQqcgs7984-62-83 08:17:00.00024 /vutVbkvy1103-31-68 10:18:00.71773 /ntkLanqt2493-88-96 14:44:00.95182 /zzqBvikj1073-79-32 11:09:00.32975 /mktHqphy2161-41-45 11:46:00.06592 /qgqFaibg3858-90-08 16:03:00.45112 /yfiZezph8118-64-04 12:27:00.91594 /dqzTdgjd7137-31-94 16:25:00.13635 /cbuYwaoc7793-04-42 14:11:00.55419 /minO2 Saturation (%) 2024-12-06 13:49:00.68082 %O2 Saturation (%)2024-12-02 11:34:00.12580 %O2 Saturation (%)2024-11-29 15:15:00.96323 %O2 Saturation (%)2024-11-28 10:52:00.61524 %O2 Saturation (%)2024-11-24 10:57:00.69673 %O2 Saturation (%) 2024-11-22 18:13:00.61681 %O2 Saturation (%)2024-11-17 11:08:00.086813 %O2 Saturation (%)2024-11-16 10:36:00.94714 %O2 Saturation (%)2024-11-10 10:18:00.85832 %O2 Saturation (%)2024-11-09 14:44:00.08947 %O2 Saturation (%) 2024-11-08 11:09:00.56027 %O2 Saturation (%)2024-11-05 11:46:00.88548 %O2 Saturation (%)2024-10-26 16:03:00.23095 %O2 Saturation (%)2024-10-25 12:27:00.41263 %O2 Saturation (%)2024-10-19 16:25:00.62582 %O2 Saturation (%) 2024-10-12 14:11:00.10793 %Vstqppefjpne0076-53-74 13:49:00.42351 /min Rruxeboepsxw8685-49-13 11:34:00.93485 /zysZqqbvzttbkyr8525-47-47 15:15:00.99309 /xigEevfbatgopyw9077-07-73 10:52:00.70329 /cfsDsyjwbyqxkad0518-46-83 10:57:00.31962 /bcmLkfxzqvqjeca6377-14-52 09:01:00.61967 /minRespirations 2024-11-22 18:13:00.77767 /snlZargmjjfxkrs9536-10-97 09:38:00.45659 /min Nrbiotmardto0500-93-03 11:08:00.28775 /kpzEwvtbiqwxvdh0511-80-46 09:39:00.36683 /odxLfeygvvighwt4864-68-00 10:36:00.79571 /fehKfksdhvdgpcy2180-57-80 08:14:00.78126 /pihAvlyggsvxzex8969-24-64 10:18:00.92699 /minRespirations 2024-11-09 14:44:00.70449 /preZhuzwxramjut1322-89-03 11:09:00.11477 /min Leifedfsiici3435-25-21 11:46:00.00498 /hxqJqafanhtjsag6011-75-30 16:03:00.55467 /rffJpvrqeauenij0740-03-97 12:27:00.98242 /rtbCpvmchmsxcme8869-75-27 16:25:00.13634 /evvAbpkdaxrzrqs0677-98-81 14:11:00.25756 /minWeight (lbs) 2024-12-06 13:49:00.319966.6 [lb_av]Weight (lbs)2024-12-02 11:37:00.117736 [lb_av]Weight (lbs)2024-11-29 15:20:00.581525 [lb_av]Weight (lbs)2024-11-22 18:14:00.838703.8 [lb_av]Weight (lbs)2024-11-16 10:40:00.942263 [lb_av]Weight (lbs)2024-11-09 14:44:00.296298 [lb_av]Weight (lbs)2024-11-05 11:46:00.165759 [lb_av]Weight (lbs)2024-10-12 14:14:00.915470 [lb_av]Systolic Blood Pressure 2024-12-06 13:49:00.248178 mm[Hg]Systolic Blood Fomwgdvz9366-68-66 11:34:00.000 142 mm[Hg]Systolic Blood Agsroiwb3238-67-04 15:15:00.665080 mm[Hg]Systolic Blood Vjvlarql9449-55-93 11:16:00.372010 mm[Hg]Systolic Blood Imxrmvsk2952-14-47 10:57:00.252395 mm[Hg]Systolic Blood Fmzhefhk7254-29-94 09:01:00.086468 mm[Hg] Systolic Blood Odptppeb2499-91-41 18:13:00.039248 mm[Hg]Systolic Blood Pressure 2024-11-21 09:38:00.823326 mm[Hg]Systolic Blood Sxbstvez7303-91-42 11:08:00.000 153 mm[Hg]Systolic Blood Ipqjbbtc8554-08-87 09:39:00.700655 mm[Hg]Systolic Blood Qmannzlz5488-64-93 10:36:00.743998 mm[Hg]Systolic Blood Hpbdscxx2178-12-78 08:14:00.625694 mm[Hg]Systolic Blood Rleiwsiv8181-91-50 10:18:00.831098 mm[Hg] Systolic Blood Cehheegk3386-26-39 14:44:00.091917 mm[Hg]Systolic Blood Pressure 2024-11-08 11:09:00.121880 mm[Hg]Systolic Blood Oocujqaj8475-74-76 11:46:00.000 121 mm[Hg]Systolic Blood Ksvqcidt7811-36-84 16:03:00.998642 mm[Hg]Systolic Blood Klyfkeiu2321-16-59 12:27:00.074415 mm[Hg]Systolic Blood Gndcilwm9530-44-21 16:25:00.650214 mm[Hg]Systolic Blood Dqhcxrse6372-92-32 14:11:00.321516 mm[Hg] Diastolic Blood Cvvsduxt6172-38-51 13:49:00.30517 mm[Hg]Diastolic Blood Pressure 2024-12-02 11:34:00.85803 mm[Hg]Diastolic Blood Qdhcbnir6965-54-30 15:15:00.000 68 mm[Hg]Diastolic Blood Pmjrouyf0496-08-60 11:16:00.24149 mm[Hg]Diastolic Blood Pvlhcumf9365-40-18 10:57:00.55306 mm[Hg]Diastolic Blood Ooaeojel6133-91-87 09:01:00.03733 mm[Hg]Diastolic Blood Vvldmbzd5704-07-17 18:13:00.67107 mm[Hg] Diastolic Blood Lipayooo8726-26-78 09:38:00.60841 mm[Hg]Diastolic Blood Pressure 2024-11-17 11:08:00.26805 mm[Hg]Diastolic Blood Sytdfczw8187-06-13 09:39:00.000 94 mm[Hg]Diastolic Blood Skfkkxrg9762-36-52 10:36:00.30529 mm[Hg]Diastolic Blood Gxtnllnv4317-89-55 08:14:00.30070 mm[Hg]Diastolic Blood Jvistelz9498-99-82 10:18:00.82609 mm[Hg]Diastolic Blood Preyvvhi3083-50-16 14:44:00.51433 mm[Hg] Diastolic Blood Hakqsclr5306-64-57 11:09:00.52586 mm[Hg]Diastolic Blood Pressure 2024-11-05 11:46:00.95062 mm[Hg]Diastolic Blood Rwdygaah1634-79-52 16:03:00.000 82 mm[Hg]Diastolic Blood Rxsjdaku0219-90-19 12:27:00.62133 mm[Hg]Diastolic Blood Kjgzdoef5517-97-70 16:25:00.26850 mm[Hg]Diastolic Blood Vlastyph8266-61-06 14:11:00.72701 mm[Hg] Plan of Treatment Planned Activity Planned Date Details Comments Future Scheduled Test SKILLED NURSE TO EVALUATE PATIENT, IDENTIFY PRIMARY AND CO-MORBID CONDITIONS CODED PER CODING GUIDELINES, AND DEVELOP PATIENT SPECIFIC PLAN OF CARE THAT INCLUDES PATIENT GOAL FOR HOME HEALTH. [code =SKILLED NURSE TO EVALUATE PATIENT, IDENTIFY PRIMARY AND CO-MORBID CONDITIONS CODED PER CODING GUIDELINES, AND DEVELOP PATIENT SPECIFIC PLAN OF CARE THAT INCLUDES PATIENT GOAL FOR HOME HEALTH.]Future Scheduled TestSKILLED NURSE TO REVIEW PATIENT MEDICATIONS (PRESCRIPTION/OTC). INSTRUCT PATIENT/CAREGIVER ON ALL MEDICATIONS INCLUDING PURPOSE, WHEN TO TAKE, IMPORTANCE OF MEDICATION ADHERENCE, MONITORING OF EFFECTI VENESS, ADVERSE DRUG REACTIONS, POSSIBLE SIDE EFFECTS, AND WHEN TO NOTIFY AGENCY OR PHYSICIAN/PROVIDER OF ANY CONCERNS. [code = SKILLED NURSE TO REVIEW PATIENT MEDICATIONS (PRESCRIPTION/OTC). INSTRUCT PATIENT/CAREGIVER ON ALL MEDICATIONS INCLUDING PURPOSE, WHEN TO TAKE, IMPORTANCE OF MEDICATION ADHERENCE, MONITORING OF EFFECTIVENESS, ADVERSE DRUG REACTIONS, POSSIBLE SIDE EFFECTS, AND WHEN TO NOTIFY AGENCY OR PHYSICIAN/PROVIDER OF ANY CONCERNS.]Future Scheduled Test PATIENT HAS A RISK OF HOSPITALIZATION AND [...] METHODS TO REDUCE AVOIDABLE HOSPITALIZATION AND ED USE.]Future Scheduled TestSKILLED NURSE TO PROVIDE INSTRUCTION TO PATIENT/CAREGIVER RELATED TO DISCHARGE PLANNING. [code = SKILLED NURSE TO PROVIDE INSTRUCTION TO PATIENT/CAREGIVER RELATED TO DISCHARGE PLANNING.]Future Scheduled TestSKILLED NURSE TO PERFORM ENVIRONMENTAL SAFETY RISK ASSESSMENT AND FALL RISK ASSESSMENT AND PROVIDE INSTRUCTION TO IMPLEMENT ENVIRONMENTAL SAFETY AND FALL PREVENTION STRATEGIES THROUGHOUT THE CERTIFICATION PERIOD. SKILLED NURSE WILL MAINTAIN SITUATIONAL AWARENESS AND WILL NOTIFY CLINICAL PIE ICER MACHINE AND PHYSICIAN/PROVIDER WITH ANY CHANGE IN CONDITION. [code = SKILLED NURSE TO PERFORM ENVIRONMENTAL SAFETY RISK ASSESSMENT AND FALL RISK ASSESSMENT AND PROVIDE INSTRUCTION TO IMPLEMENT ENVIRONMENTAL SAFETY AND FALL PREVENTION STRATEGIES THROUGHOUT THE CERTIFICATION PERIOD. SKILLED NURSE WILL MAINTAIN SI TUATIONAL AWARENESS AND WILL NOTIFY CLINICAL PIE ICER MACHINE AND PHYSICIAN/PROVIDER WITH ANY CHANGE IN CONDITION.]Future Scheduled TestSKILLED NURSE FOR OBSERVATION AND ASSESSMENT OF PATIENT S PAIN LEVEL AND EFFECTIVENESS OF PAIN MANAGEMENT REGIMEN. SKILLED NURSE TO INSTRUCT PATIENT/CAREGIVER REGARDING PHARMACOLOGIC AND NON-PHARMACOLOGIC PAIN CONTROL MEASURES. SKILLED NURSE TO REPORT TO PHYSICIAN IF PAIN LEVEL IS OUTSIDE OF ESTABLISHED PARAMETERS. [code = SKILLED NURSE FOR OBSERVATION AND ASSESSMENT OF PATIENT S PAIN LEVEL AND EFFECTIVENESS OF PAIN MANAGEMENT REGIMEN. SKILLED NURSE TO INSTRUCT PATIENT/CAREGIVER REGARDING PHARMA COLOGIC AND NON-PHARMACOLOGIC PAIN CONTROL MEASURES. SKILLED NURSE TO REPORT TO PHYSICIAN IF PAIN LEVEL IS OUTSIDE OF ESTABLISHED PARAMETERS.]Future Scheduled TestSKILLED NURSE TO ASSESS PATIENT'S SKIN INTEGRITY AND INSTRUCT PATIENT/CAREGIVER ON MEASURES TO PREVENT PRESSURE ULCERS. [code = SKILLED NURSE TO ASSESS PATIENT'S SKIN INTEGRITY AND INSTRUCT PATIENT/CAREGIVER ON MEASURES TO PREVENT PRESSURE ULCERS.]Future Scheduled TestSN TO INSTRUCT PATIENT/CAREGIVER ON COPD MANAGEMENT UTILIZING THE BREATHING WITH CARE SPECIALTY PROGRAM. [code = SN TO INSTRUCT PATIENT/CAREGIVER ON COPD MANAGEMENT UTILIZING THE BREATHING WITH CARE SPECIALTY PROGRAM.]Future Scheduled TestSKILLED NURSE TO ASSESS ANXIETY AND PROVIDE ASSISTANCE TO PATIENT FOR UNDERSTANDING AND MANAGEMENT OF FEELINGS. [code = SKILLED NURSE TO ASSESS ANXIETY AND PROVIDE ASSISTANCE TO PATIENT FOR UNDERSTANDING AND MANAGEMENT OF FEELINGS.]Future Scheduled TestSKILLED NURSE TO INSTRUCT PATIENT/CAREGIVER ON COPD TO INCLUDE TEACHING AND SELF-MANAGEMENT RELATEDTO COPD DISEASE PROCESS, SIGNS AND SYMPTOMS, AND COMPLICATIONS. [code = SKILLED NURSE TO INSTRUCT PATIENT/CAREGIVER ON COPD TO INCLUDE TEACHING AND SELF-MANAGEMENT RELATED TO COPD DISEASE PROCESS, SIGNS AND SYMPTOMS, AND COMPLICATIONS.]Future Scheduled TestOXYGEN VIA NASAL CANNULA @ 2 LITERS CONTINUOUS SKILLED NURSE FOR O/A AND SKILLED TEACHING OF SAFE OXYGEN USE IN THE HOME. [code = OXYGEN VIA NASAL CANNULA @ 2 LITERS CONTINUOUS SKILLED NURSE FOR O/A AND SKILLED TEACHING OF SAFE OXYGEN USE IN THE HOME.]Future Scheduled Test SKILLED NURSE FOR O/A, TEACHING AND SELF-MANAGEMENT RELATED TO HEART FAILURE. INSTRUCT PATIENT/CAREGIVER ON SIGNS AND SYMPTOMS OF EXACERBATION TO REPORT AND IMPORTANCE OF OBTAINING AND RECORDING DAILY WEIGHT AND/OR MEASUREMENTS. SN OR TRAINED PATIENT/CAREGIVER TO OBTAIN WEIGHT DAILY AND WEIGHT GAINOF 2 LBS OVERNIGHT OR 5 LBS IN 1 WEEK TO BE REPORTED TO PHYSICIAN/PROVIDER. [code = SKILLED NURSE FOR O/A, TEACHING AND SELF-MANAGEMENT RELATED TO HEART FAILURE. INSTRUCT PATIENT/CAREGIVER ON SIGNS AND SYMPTOMS OF EXACERBATION TO REPORT AND IMPORTANCE OF OBTAINING AND RECORDING DAILY WEIGHT AND/OR MEASUREMENTS. SN OR TRAINED PATIENT/CAREGIVER TO OBTAIN WEIGHT DAILY AND WEIGHT GAIN OF 2 LBS OVERNIGHT OR 5 LBS IN 1 WEEK TO BE REPORTED TO PHYSICIAN/PROVIDER.]Future Scheduled TestSKILLED NURSE TO INSTRUCT PATIENT/CAREGIVER ON SIGNS AND SYMPTOMS, RISK FACTORS, COMPLICATIONS, ANDMANAGEMENT OF ATRIAL FIBRILLATION. [code = SKILLED NURSE TO INSTRUCT PATIENT/CAREGIVER ON SIGNS ANDSYMPTOMS, RISK FACTORS, COMPLICATIONS, AND MANAGEMENT OF ATRIAL FIBRILLATION.]Future Scheduled Test SKILLED NURSE TO PROVIDE TEACHING ON SIGNS AND SYMPTOMS AND MANAGEMENT OF HYPERTENSION. [code = SKILLED NURSE TO PROVIDE TEACHING ON SIGNS AND SYMPTOMS AND MANAGEMENT OF HYPERTENSION.]Future Scheduled TestSKILLED NURSE TO PROVIDE TEACHING/REINFORCEMENT RELATED TO URINARY INCONTINENCE. [code = SKILLED NURSE TO PROVIDE TEACHING/REINFORCEMENT RELATED TO URINARY INCONTINENCE.]Future Scheduled TestSKILLED NURSE MAY COLLECT URINE SAMPLE FOR URINE REAGENT STRIP TESTING AND/OR URINALYSIS WITH C S 1-3 PRN IF INDICATED FOR SIGNS AND SYMPTOMS OF UTI. IF REAGENT STRIP TEST IS POSITIVE FOR UTI, SKILLED NURSE TO TAKE URINE SAMPLE TO LAB FOR URINE C S AND REPORT RESULTS TO PHYSICIAN. [code = SKILLED NU RSE MAY COLLECT URINE SAMPLE FOR URINE REAGENT STRIP TESTING AND/OR URINALYSIS WITH C S 1-3 PRN IF INDICATED FOR SIGNS AND SYMPTOMS OF UTI. IF REAGENT STRIP TEST IS POSITIVE FOR UTI, SKILLED NURSE TOTAKE URINE SAMPLE TO LAB FOR URINE C S AND REPORT RESULTS TO PHYSICIAN.]Future Scheduled TestSKILLED NURSE FOR O/A OF SELF-CARE DEFICITS AND TO PROVIDE TEACHING RELATED TO SAFE PROVISION OF ADLS. [code = SKILLED NURSE FOR O/A OF SELF-CARE DEFICITS AND TO PROVIDE TEACHING RELATED TO SAFE PROVISION OF ADLS.][facility] WITH PERSONAL CARE AND ADL S SECONDARY TO FUNCTIONAL LIMITATIONS [code = HOME HEALTH AIDE SERVICES FOR ASSISTANCE WITH PERSONAL CARE AND ADL S SECONDARY TO FUNCTIONAL LIMITATIONS]Qpct6532-17-88Lkqcrsk Goal - TO BE ABLE TO GO OUTSIDE AND WALK AROUND WITH MY ONERMDVsww9656-56-31Ejnteuk Goal - TO BE ABLE TO GO OUTSIDE AND WALK AROUND WITH MY CKNGVEJkgd1763-81-16Vgqomns Goal - TO BE ABLE TO GO OUTSIDE AND WALK AROUND WITH MY WALKER , TO BECOME STRONGER AND STAY OUT OF HOSPITALGoalProvider Goal - A PLAN OF CARE WILL BE ESTABLISHED THAT MEETS PATIENT'S ALF NEEDS AND INCLUDES PATIENT GOAL FOR HOME HEALTH. GoalProvider Goal - PATIENT/CAREGIVER WILL VERBALIZE UNDERSTANDING OF EDUCATION PROVIDED ON MEDICATIONSBY THE END OF THE CERTIFICATION PERIOD.GoalProvider Goal - PATIENT WILL HAVE SUPPORT MEASURES ESTABLISHED TO PREVENT HOSPITALIZATION AND ED USE AND PATIENT/CAREGIVER WILL VERBALIZE/DEMONSTRATE METHODS TO REDUCE AVOIDABLE HOSPITALIZATION AND ED USE BY END OF EPISODE.GoalProvider Goal - PATIENT/CAREGIVER WILL VERBALIZE UNDERSTANDING OF DISCHARGE PLANNING INSTRUCTIONS BY DATE OF DISCHARGE.GoalProvider Goal - PATIENT/CAREGIVER WILL VERBALIZE/DEMONSTRATE EFFECTIVE ENVIRONMENTAL SAFETY AND FALL PREVENTION STRATEGIES, WILL REMAIN SAFE IN THE COMMUNITY, AND WILL BE FREE OF DANGER TO SELF AND OTHERS THROUGHOUT THE CERTIFICATION PERIOD.GoalProvider Goal - PATIENT/CAREGIVER WILL DEMONSTRATE UNDERSTANDING OF PHARMACOLOGIC AND NONPHARMACOLOGIC PAIN CONTROL MEASURES AND PATIENT WILL HAVE IMPROVEMENT IN PAIN INTERFERING WITH ACTIVITY EVIDENCED BY PAIN AT A LEVEL THAT IS ACCEPTABLE TO THE PATIENT AND PAIN LEVEL WITHIN ESTABLISHED PARAMETERS BY END OF CERTIFICATION PERIOD.GoalProvider Goal - PATIENT/CAREGIVER WILL VERBALIZE UNDERSTANDING OF PRESSURE ULCER PREVENTION BY END OF THE EPISODE.GoalProvider Goal - PATIENT/CAREGIVER WILL DEMONSTRATE MANAGEMENT OF COPD A RESULT OF PARTICIPATION IN BREATHING WITH CARE SPECIALTY PROGRAM.GoalProvider Goal - SYMPTOMS OF ANXIETY ARE IDENTIFIED AND INTERVENTIONS INITIATED TO ENABLE PATIENT TOUNDERSTAND AND MANAGE FEELINGS THROUGHOUT EPISODE.GoalProvider Goal - PATIENT/CAREGIVER WILL VERBALIZE/DEMONSTRATE KNOWLEDGE AND MANAGEMENT OF COPD BY END OF EPISODE.GoalProvider Goal - PATIENT/CAREGIVER WILL VERBALIZE/DEMONSTRATE UNDERSTANDING OF SAFE OXYGEN USE IN THE HOME THROUGHOUT THE EPISODE.GoalProvider Goal - PATIENT/CAREGIVER WILL VERBALIZE/DEMONSTRATE KNOWLEDGE AND MANAGEMENT OF HEART FAILURE DISEASE PROCESS BY END OF EPISODE.GoalProvider Goal - PATIENT/CAREGIVER WILL VERBALIZE UNDERSTANDING OF SIGNS AND SYMPTOMS, COMPLICATIONS, AND MANAGEMENT OF ATRIAL FIBRILLATION THROUGHOUT THE CERTIFICATION PERIOD.GoalProvider Goal - PATIENT/CAREGIVER WILL VERBALIZE SIGNS AND SYMPTOMS OF HYPERTENSION AND WILL BE ABLE TO DEMONSTRATE ABILITY TO MANAGE EXACERBATION BY END OF THE EPISODE.GoalProvider Goal - PATIENT / CAREGIVER WILL VERBALIZE UNDERSTANDING OF EFFECTS OF URINARY INCONTINENCEBY THE END OF THE CERTIFICATION PERIOD.GoalProvider Goal - URINE SPECIMEN WILL BE OBTAINED PRN FOR SIGNS AND SYMPTOMS OF UTI AND RESULTS WILL BE REPORTED TO PHYSICIAN THROUGHOUT THE CERTIFICATION PERIOD.GoalProvider Goal - PATIENT/CAREGIVER WILL VERBALIZE/DEMONSTRATE UNDERSTANDING OF SAFE PROVISION OF ADLS BY THE END OF THE CERTIFICATION PERIOD.GoalProvider Goal - PATIENT WILL RECEIVE PERSONAL CARE AND ADL ASSISTANCE. Reason for Visit MINIMUM ASSIST WITH TRANSFER/AMBULATION/ADLS Encounters Start Date/Time End Date/Time Encounter Type Admission Type Attending [facility] Care Department Encounter ID Discharge Date Discharge Status Discharge Condition Discharge Reason Percent Goals Met 2024-10-10 00:00:00 2024-12-06 00:00:00 Outpatient HAYDEN MENON [id number] 00:00:00DISCHARGE TO HOME OR SELF CAREMINIMUM ASSIST WITH TRANSFER/AMBULATION/ADLSGOALS MET ( ONLY)86.90
--- OUTSIDE RECORDS SUMMARY | 2024-12-12 15:40 | XMS_ITS | Encounter Summary ---
Author Organization [facility] Address [address] [place] [address] Care Team Providers Care Feather Drying Machine Operator Name Role Phone Ole Yang MD Primary Care Provider [phone] Reason for Referral * Imaging (Routine) - Pending ReviewSpecialtyDiagnoses / ProceduresReferred By ContactReferred To ContactCardiology Diagnoses Acute on chronic heart failure with preserved ejection fraction (CMS/HCC) Dilated cardiomyopathy (CMS/HCC) Dyspnea on exertion Procedures Transthoracic echo (TTE) complete Eulogio Wahl CNP [address] [place] [address] Phone: tel: fax: Referral IDStatusReasonStart DateExpiration DateVisits RequestedVisits [id number] Review Perform Procedure Reason for Visit * ReasonCommentsFollow-upPatient is here today for a follow [facility] admission for blood pressure issues, kidney failure, hallucinations, depression, anxiety. Patient states blood pressure is erratic, 170 to 205 Cerebrovascular AccidentCoronary Artery DiseaseHypertensionAtrial Fibrillation Congestive Heart FailureCardiomyopathyHyperlipidemiaShortness of BreathSOB/CLAIRE patient is on o2 at 2lmp via n/cEdemaBilateral leg swelling. Encounter Details DateTypeDepartmentCare Team (Latest Contact Info)Upyznixtopm53/27/2025 3:40 PM EDTOffice Visit [facility] [address] [place] [address] Eulogio Wahl, SENIOR MECHANICAL PROJECT MANAGER [address] [place] [address] Acute on chronic heart failure with preserved ejection fraction (CMS/HCC) (Primary Dx); Dilated cardiomyopathy (CMS/HCC); Dyspnea on exertion; Atherosclerosis of aniak coronary artery of aniak heart without angina pectoris; Chronic a-fib (CMS/HCC); Status post biventricular cardiac pacemaker insertion; Chronic kidney disease, stage 3b (CMS/HCC); Hyperthyroidism; Benign hypertensive heart disease with heart failure (CMS/HCC); ICD (implantable cardioverter-defibrillator) in place; Bilateral lower extremity edema Social History Tobacco UseTypesPacks/DayYears UsedDateSmoking Tobacco: NeverSmokeless Tobacco: NeverAlcohol UseStandard Drinks/WeekCommentsNot Currently0 (1 standard drink = 0.6 oz pure alcohol)[place] Safety & EnvironmentAnswerDate RecordedFear of Current or Ex-PartnerNot on file04/09/2023Emotionally AbusedNot on file04/09/2023hysically AbusedNot on file04/09/2023Sexually AbusedNot on file04/09/2023hysically or Sexually AbusedNot on file04/09/2023CommentsUnknownSex and Gender InformationValueDate RecordedSex Assigned at EmaolVisjhu35/23/2025 11:40 AM EDT Legal WzyYlzbjz66/29/2022 11:46 PM EDTGender LmndynytIilplx20/23/2025 11:40 AM EDTSexual OrientationChoose not to /14/2025 9:44 PM EDTdocumented as of this encounter Last Filed Vital Signs Vital SignReadingTime TakenCommentsBlood Czvzlyuf867/8410 3:30 PM EDT Zxgqm599112/12/2024 3:30 PM EDTTemperature--Respiratory Rate--Oxygen Adadsxmfzw63% 12/12/2024 3:30 PM EDTInhaled Oxygen Concentration--Tvpdvd04.2 kg (179 lb) 12/12/2024 3:30 PM HPIBzrebo742.2 cm (5' 7 )12/12/2024 3:30 PM EDTBody Mass Index28.041 3:30 PM EDTdocumented in this encounter Functional Status * BPAnswerDate of UaxhcgonnnJvqnjw772/8410 3:30 PM EDAnn Marie Barajas MA * PulseAnswerDate of QouufsymqnQzgbdq7649 3:30 PM EDAnn Marie Barajas MA * Patient PositionAnswerDate of AukuuhhdabZquwndLkznvjc94/27/2025 3:30 PM EDT Ann Marie Del Valle MA * BPAnswerDate of HxuqnnnsgbXdlskk868/8412/12/2024 3:30 PM EDAnn Marie Barajas MA * PulseAnswerDate of XikacuatjgErdyfi0813 3:30 PM EDAnn Marie Barajas MA * GtZ7YbwdeiDyux of RigvhriduuExqgaw6579/27/2025 3:30 PM EDAnn Marie Barajas MA * BP LocationAnswerDate of AssessmentAuthorLeft arm12/12/2024 3:30 PM EDT Ann Marie Del Valle MA * Patient PositionAnswerDate of VqozplqjykNbygurIzgdzrl20/27/2025 3:30 PM EDT Ann Marie Del Valle MA documented as of this encounter Progress Notes * Eulogio Wahl CNP - 12/12/2024 3:40 PM EDT Images from the original note were not included. SUBJECTIVE Reason for Visit: Lluvia Ferraro is a 84 y.o. year old female patient being seen for [facility]. HPI: Lluvia Ferraro is a 84 y.o. year old female with significant medical history of CAD, atrial fibrillation, cardiomyopathy, status post biventricular cardiac pacemaker, hypothyroidism, hypertension, CAD, and hyperlipidemia. 12/12/2024 office visit: Patient seen and evaluated in the office today, accompanied by her daughter. She remains on her baseline oxygen via nasal cannula. Reports increased dyspnea on exertion over the past several days but is not in any acute respiratory distress at this time. Denies chest pain, palpitations, lightheadedness, or dizziness. Endorses worsening lower extremity edema. On examination, there is +3 bilateral lower extremity edema. The patient reports that daily Lasix use results in prolonged bathroom trips, making adherence challenging. She is agreeable to taking Bumex every two days, which is a reasonable alternative for now. Renal function will be rechecked in earlene roximately 10 days to monitor response and tolerance. 08/11/2024 office visit (Dr. Sanchez): Patient was recently in the hospital on 07/22/2024 to 07/24/2024 with UTI and acute on chronic respiratory failure with hypoxia. The patient was severely hypoxic in the 60s when she was admitted. She hadmild elevation of high-sensitivity troponin to 186 but her echo was normal without wall motion abnormalities. She did not have any chest pain. She was treated with antibiotics. [facility] Patient is here today with her daughter for follow-up visit. She states that she has been feeling stronger. She has a home health nurse coming to the house once a week. She denies any chest pain. Shehas chronic shortness of breath and she wears oxygen at 2 L/min at rest and 3 L/min on exertion. She denies orthopnea or paroxysmal nocturnal dyspnea or dizziness or palpitation or legs edema. She has been drinking more water after discharge from the hospital 01/25/2024: The patient is here today for follow-up [...] only 12 ounce of water a day 08/07/2023: Lluvia Ferraro is a 83 y.o. female patient states [...] not drink much water or other fluids Medical History[1] Surgical History[2] Problem List[3] family history includes Colon cancer in her father; Coronary artery disease in her brother; Hypertension in her brother; Kidney cancer in her brother. Social History[4] OBJECTIVE Visit Vitals Smoking Status Never Physical Exam Constitutional: General Appearance: well-developed, appears stated age. Level of Distress: no acute distress. Neck: Jugular Veins: normal jugular venous pressure. Lungs: Auscultation: no rales or rhonchi and normal breath sounds. Cardiovascular: Rate And Rhythm: regular Heart Sounds: normal S1 and s2; Systolic Murmur: not heard. Diastolic Murmur: not heard. Extremities: +3 LE edema. Peripheral Pulses: Pulses: full and equal in all extremities except if noted. Abdomen: Inspection and Palpation: non distended or tender and soft. Musculoskeletal: Inspection: no joint tenderness or swelling. Neurologic: Gait: normal gait. Psychiatric: Mental Status: alert and normal affect. Skin: Inspection and Palpation: warm and dry. Allergies: Allergies[5] Outpatient Medications: Current Outpatient Medications Medication Instructions albuterol 90 mcg/actuation inhaler inhale 2 puffs every 4 (four) hours if needed for wheezing apixaban (Eliquis) 5 mg tablet Take 1 tablet twice a day by oral route for 90 days. aspirin 81 mg EC tablet Take 1 tablet every day by oral route. atorvastatin (Lipitor) 80 mg tablet 1 tablet, Nightly ldqpvgirds-xbhpqkxe-dbuwmsmuib (Breztri Aerosphere) 160-9-4.8 mcg/actuation HFA aerosol inhaler Inhale. bumetanide (Bumex) 1 mg tablet As needed cholecalciferol (Vitamin D-3) 50 MCG (2000 UT) tablet Take 1 tablet every day by oral route. lisinopril 2.5 mg, oral, Daily LORazepam (Ativan) 0.5 mg tablet TAKE ONE TABLET BY MOUTH EVERY 6 HOURS NEEDED FOR ANXIETY ATTACKS methIMAzole (TAPAZOLE) 5 mg, 4 times weekly metoprolol succinate XL (Toprol-XL) 50 mg 24 hr tablet 1 tablet, Daily PARoxetine (Paxil) 20 mg tablet 1 tablet every day by oral route for 90 days. Rexulti 0.25 mg, Daily spironolactone (ALDACTONE) 25 mg, oral, Once Daily Recent Labs: Ancillary Procedure on 08/11/2024 Component Date Value BSA 09/02/2024 1.93 Labs 07/24/2024: White blood count 5.1, hemoglobin 9.9, hematocrit 31, platelets 182 Sodium 141, potassium 4.6, BUN 34, creatinine 1.39, GFR 44, glucose 111, calcium 8.9, magnesium 1.9 Total bilirubin 0.4, AST 45, ALT 46, alk phos 82, total protein 6.2, albumin 2.7 TSH 2.957 I have personally reviewed and anaylzed the following laboratory results above. These findings havebeen analyzed in the context of the patient's clinical presentation. Cardiovascular Diagnostic Studies: Echo 08/05/2023: Lexiscan nuclear stress test 08/04/2023: Rest and peak stress ECG findings were [...] 1. Normal nuclear medicine myocardial perfusion scan. 12 Lead ECG: No results found for this or any previous visit (from the past 4464 hours). Cardiac event monitor: Cardiac device check - remote -11/22/2024: RA pacing @ 100.0% RV pacing @ 99.0% LV pacing @ 98.0% I have personally reviewed and analyzed all available cardiac diagnostic tests and imaging reports.Findings have been analyzed in the context of the patient's clinical status. Assessment and Plan #CLAIRE Patient reports this is worse over the last few days - Will order TTE #Bilateral lower extremity edema +3 lower extremity edema, patient reports slightly worse over the last 2 - Patient is agreeable to Bumex 1 mg every 2 days, will repeat renal function panel in about 10 days #CAD Denies chest pain Prior angioplasty of LAD in 2015. Last cardiac catheterization in June 2021 showed mild in-stent restenosis, otherwise nonobstructive coronary artery disease. - Continue aspirin 81 daily - Continue atorvastatin 80 mg daily - Continue metoprolol succinate 50 mg daily #Hx of cardiomyopathy #ICD in situ NYHA Appears compensated S/p Biv Pacemaker 08/21/2021 Most recent TTE 07/22/2024: EF 57%, mildly dilated RV with mildly reduced systolic function. Moderatepulm hypertension. Severe biatrial dilation. Moderate mitral regurgitation Device check remote, 11/22/2024: RA pacing 90%, RV pacing 99%, LV pacing 98%. Thoracic impedance 28.9 on 11/21/2024, significant decrease from baseline. GDMT: - Patient is agreeable to Bumex 1 mg every 2 days, will repeat renal function panel in about 10 days - Continue metoprolol succinate 50 mg daily #Persistent a fib #S/p AV jayashree ablation 2020 [id number] = at least 5 (HF, HTN, female, age) - Continue apixaban 5 mg twice daily #Mitral regurgitation Most recent TTE 07/22/2024: EF 57%, Moderate mitral regurgitation. #HTN Blood pressure today is 149/84, heart rate 71 Elevated Patient reports labile blood pressures at home Not taking lisinopril or spironolactone, daughter reports she was hyperkalemic/worsening renal function on meds - Continue amlodipine 2.5 mg daily (initiated per PCP on 11/28/2024) - Continue metoprolol succinate 50 mg daily ---> consider switching to carvedilol #HLD Lipid panel 06/06/2024: LDL 49, HDL 54, triglycerides 66, total cholesterol 118 Stable - Continue atorvastatin 80 mg daily #CKD Nephrology referral if not seeing already #Hyperthyroidism #Chronic anemia #COPD Plan Overview: Patient is agreeable to take Bumex 1 mg every 2 days, with CMP in approximately 10 days Instructed to call in blood pressure log after her visit TTE Follow-up 6-week Update after visit 12/12/24: Patient's daughter called in with blood pressure logs soon after her visit, blood pressures rangingaround 140 systolic. I will increase amlodipine to 5 mg daily. If blood pressure remains elevated despite increasing amlodipine and initiating Bumex every 2 days, we will switch from metoprolol to Coreg 3.125 mg twice daily. This note was partially composed using voice recognition software. While every effort was made to ensure accuracy, some unintentional assistant corporate controller errors may be present. SANDRA Strange- [facility] [1] Past Medical History: Diagnosis Date Abnormal ECG Arrhythmia Atrial fibrillation (CMS/HCC) CHF (congestive heart failure) (CMS/HCC) Coronary artery disease Heart valve disease [2] Past Surgical History: Procedure Laterality Date ABLATION OF DYSRHYTHMIC FOCUS CARDIAC CATHETERIZATION CARDIOVERSION HYSTERECTOMY INSERT / REPLACE / REMOVE PACEMAKER KNEE SURGERY [3] Patient Active Problem List Diagnosis Anxiety Status post biventricular cardiac pacemaker insertion Cerebrovascular accident (CMS/HCC) Coronary artery disease involving aniak coronary artery of aniak heart without angina pectoris Hematoma of groin Benign hypertensive heart disease with heart failure (CMS/HCC) Inguinal pain Persistent atrial fibrillation (CMS/HCC) Systolic heart failure (CMS/HCC) Elevated liver enzymes Chronic obstructive pulmonary disease (CMS/HCC) Panlobular emphysema (CMS/HCC) History of stroke without residual deficits Hyperthyroidism Inflammation of joint of right shoulder region Mild intermittent asthma Internal derangement of right shoulder Primary osteoarthritis Primary ovarian failure Pulmonary function studies abnormal Tear of right rotator cuff Non-rheumatic mitral regurgitation Age-related osteoporosis without current pathological fracture Atherosclerosis of coronary artery without angina pectoris Chronic systolic dysfunction of left ventricle Diplopia Frequent falls Impaired fasting glucose Mild episode of recurrent major depressive disorder Overweight (BMI 25.0-29.9) Rotator cuff syndrome of right shoulder Dyspnea on exertion Cardiomyopathy (CMS/HCC) Chronic a-fib (CMS/HCC) Chronic combined systolic and diastolic heart failure (CMS/HCC) Current use of senior care anticoagulation Hypoxia Memory changes Chronic kidney disease, stage 3b (CMS/HCC) Supplemental oxygen dependent Trouble in sleeping Essential hypertension Pure hypercholesterolemia Acute dehydration Acute hyperkalemia DONNA (acute kidney injury) Anxiety and depression Concentration deficit Family history of dementia Homicidal ideations Mild neurocognitive disorder Other insomnia Suicidal ideation Word finding difficulty [4] Social History Tobacco Use Smoking status: Never Smokeless tobacco: Never Substance Use Topics Alcohol use: Not Currently Drug use: Never [5] No Known Allergies documented in this encounter Plan of Treatment DateTypeDepartmentCare Team (Latest Contact Info)Fvqwuhbliss38/29/2025 2:40 PM ESTOffice Visit [facility] [place] [address] [place] [address] Eulogio Wahl, SENIOR MECHANICAL PROJECT MANAGER [address] [facility] [place] [address] NameTypePriorityAssociated DiagnosesOrder ScheduleTransthoracic echo (TTE) completeEchocardiographyRoutine Acute on chronic heart failure with preserved ejection fraction (CMS/HCC) Dilated cardiomyopathy (CMS/HCC) Dyspnea on exertion Expected: 12/12/2024 (Approximate), Expires: 12/12/2026Comprehensive metabolic panelLabRoutine Acute on chronic heart failure with preserved ejection fraction (CMS/HCC) Dilated cardiomyopathy (CMS/HCC) Dyspnea on exertion Expected: 12/12/2024 (Approximate), Expires: 12/12/2025-type natriuretic peptideLabRoutine Acute on chronic heart failure with preserved ejection fraction (CMS/HCC) Dilated cardiomyopathy (CMS/HCC) Dyspnea on exertion Expected: 12/12/2024 (Approximate), Expires: 12/12/2025documented as of this encounter Visit Diagnoses Diagnosis Acute on chronic heart failure with preserved ejection fraction (CMS/HCC)- Primary Dilated cardiomyopathy (CMS/HCC) Other primary cardiomyopathies Dyspnea on exertion Other dyspnea and respiratory abnormality Atherosclerosis of aniak coronary artery of aniak heart without angina pectoris Chronic a-fib (CMS/HCC) Atrial fibrillation Status post biventricular cardiac pacemaker insertion Chronic kidney disease, stage 3b (CMS/HCC) Hyperthyroidism Thyrotoxicosis without mention of goiter or other cause, without mention of thyrotoxic crisis or storm Benign hypertensive heart disease with heart failure (CMS/HCC) ICD (implantable cardioverter-defibrillator) in place Bilateral lower extremity edema documented in this encounter Care Teams Team MemberRelationshipSpecialtyStart DateEnd Date Ole Yang MD [address] [place] [address] PCP - General10/07/21documented as of this encounter
--- OUTSIDE RECORDS SUMMARY | 2024-12-14 09:00 | XMS_ITS | Encounter Summary ---
Author Organization [facility] Address [address] [place] [address] Care Team Providers Care Rn Neurology Name Role Phone Ole Yang MD Unavailable [phone] Ole Yang MD Primary Care Provider [phone] Edna Alcantara LPN Unavailable Reason for Visit * ReasonCommentsHypertension Encounter Details DateTypeDepartmentCare Team (Latest Contact Info)Lwxinidipyy22/29/2025 9:00 AM EDTOffice Visit [facility] [address] [facility] [address] [place] [id number] Ole Yang MD [address] [facility] [address] [place] [address] Type 2 diabetes mellitus with other specified complication, without long-term current use of insulin (HCC) (Primary Dx); Chronic combined systolic (congestive) and diastolic (congestive) heart failure (HCC); 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; Hyperthyroidism; Pure hypercholesterolemia; Chronic kidney disease, stage 3b ([facility]) Social History Tobacco UseTypesPacks/DayYears UsedDateSmoking Tobacco: NeverSmokeless Tobacco: NeverAlcohol UseStandard Drinks/WeekCommentsNever0 (1 standard drink = 0.6 oz pure alcohol)B1300 Health LiteracyAnswerDate RecordedHow often do you need to have someone help you when you read instructions, pamphlets, or other written material from your doctor or pharmacy?Uuhpjaras88/16/2025Humiliation, Afraid, Rape, and Kick questionnaireAnswerDate RecordedWithin the last year, have you been afraid of your partner or ex-partner?No06/01/2024Within the last year, have you been humiliated or emotionally abused in other ways by your partner or ex-partner?No06/01/2024Within the last year, have you been kicked, hit, slapped, or otherwise physically hurt by your partner or ex-partner?No06/01/2024Within the last year, have you been raped or forced to have any kind of sexual activity by your partner or ex-partner?No06/01/2024Social Connection and Isolation Panel AnswerDate RecordedIn a typical week, how many times do you talk on the phone with family, friends, or neighbors?More than three times a week06/01/2024How often do you get together with friends or relatives?Twice a week06/01/2024How often do you attend mandaen or adventism services?Never06/01/2024Do you belong to any clubs or organizations such as mandaen groups, unions, fraternal or athletic groups, or school groups?No06/01/2024How often do you attend meetings of the clubs or organizations you belong to?Never06/01/2024re you , , , , never , or living with a partner?Wddzbgz9906/01/2024 AUDIT-CAnswerDate RecordedQ1: How often do you have a drink containing alcohol? Never06/01/2024Q2: How many drinks containing alcohol do you have on a typical day when you are drinking?Patient does not drink06/01/2024Q3: How often do you have six or more drinks on one occasion?Never06/01/2024Overall Financial Resource Strain (CARDIA)AnswerDate RecordedHow hard is it for you to pay for the very basics like food, housing, medical care, and heating?Not very hard 06/01/2024PHQ-2AnswerDate RecordedPatient Health Questionnaire-2 Score0 11/08/2024[facility] [place] [facility] Occup[facility] - Occupational Stress QuestionnaireAnswerDate RecordedDo you feel stress - tense, restless, nervous, or anxious, or unable to sleep at night because yourmind is troubled all the time - these days?Rather much06/01/2024Exercise Vital SignAnswerDate RecordedOn average, how many days per week do you engage in moderate to strenuous exercise (like a brisk walk)?0 days06/01/2024On average, how many minutes do you engage in exercise at this level?0 min06/01/2024Hunger Vital SignAnswerDate Recorded Within the past 12 months, you worried that your food would run out before you got the money to buymore.Never true06/01/2024Within the past 12 months, the food you bought just didn't last and you didn't have money to get more.Never true 06/01/2024PRAPARE - TransportationAnswerDate RecordedIn the past 12 months, has lack of transportation kept you from medical appointments or from getting medications?No06/01/2024In the past 12 months, has lack of transportation kept you from meetings, work, or from getting things needed for daily living?No 06/01/2024Housing Stability Vital SignAnswerDate RecordedIn the last 12 months, was there a time when you were not able to pay the mortgage or rent on time?No 06/01/2024Number of Times Moved in the Last YearNot on file06/01/2024t any time in the past 12 months, were you homeless or living in a half-way (including now)? No06/01/2024CommentsUnknownSex and Gender InformationValueDate Recorded Sex Assigned at BirthNot on fileLegal BkkPgeblz69/15/2023 7:05 PM EDTGender IdentityNot on fileSexual OrientationNot on filedocumented as of this encounter Last Filed Vital Signs Vital SignReadingTime TakenCommentsBlood Nyrywbno052/7610 8:58 AM EDT Tykdz607412/14/2024 8:58 AM EDTTemperature--Respiratory Rate--Oxygen Jacznzdael22% 12/14/2024 8:58 AM EDTInhaled Oxygen Concentration--Ksklpk84.7 kg (178 lb) 12/14/2024 8:58 AM KVYSeujyd236.2 cm (5' 7 )12/14/2024 8:58 AM EDTBody Mass Index27.8812/14/2024 8:58 AM EDTdocumented in this encounter Progress Notes * Ole Yang MD - 12/14/2024 9:00 AM EDT Images from the original note were not included. Subjective Patient ID: Lluvia Ferraro is a 84 y.o. female who presents for Hypertension. Hypertension Patient is here for follow-up of elevated blood pressure. Blood pressure is well controlled at home. Cardiac symptoms: none. Patient denies chest pain, claudication, irregular heart beat, near-syncope, orthopnea, palpitations, paroxysmal nocturnal dyspnea, syncope, and tachypnea. Cardiovascular risk factors: advanced age (older than 55 for men, 65 for women), hypertension, and sedentary lifestyle. Pt saw cardiology yesterday amlodipine increased to 5mg QD Hypertension Current Outpatient Medications on File Prior to Visit Medication Sig Dispense Refill amLODIPine (Norvasc) 5 MG tablet Take 5 mg by mouth Daily apixaban (Eliquis) 5 MG tablet Take 1 tablet (5 mg) by mouth in the morning and 1 tablet (5 mg) before bedtime. 200 tablet 3 aspirin 81 MG EC tablet 1 (one) time each day at the same time atorvastatin (Lipitor) 80 MG tablet Take 1 tablet (80 mg) by mouth Daily 100 tablet 3 calcium carbonate (Calcium 600) 600 MG tablet Take 1 tablet (600 mg) by mouth in the morning and 1 tablet (600 mg) in the evening. Take with meals. cholecalciferol 1000 units capsule Take 1,000 Units by mouth in the morning and 1,000 Units before bedtime. melatonin 5 MG tablet Take 5 mg by mouth Daily methIMAzole (Tapazole) 5 MG tablet Take 5 mg by mouth Daily methIMAzole (Tapazole) 5 MG tablet Take 1 tablet (5 mg) by mouth Daily (Patient taking differently:Take 5 mg by mouth Daily Take Thursday,Thursday,,thursday) 90 tablet 1 metoprolol succinate XL (Toprol-XL) 50 MG 24 hr tablet Take 1 tablet (50 mg) by mouth Daily 100 tablet 3 Multiple Vitamins-Minerals (Multi For Her 50+) tablet 1 (one) time each day at the same time PARoxetine (Paxil) 20 MG tablet Take 1 tablet (20 mg) by mouth in the morning. 100 tablet 3 [DISCONTINUED] amLODIPine (Norvasc) 2.5 MG tablet Take 1 tablet (2.5 mg) by mouth Daily 30 tablet 5 [DISCONTINUED] cefdinir (Omnicef) 300 MG capsule Take 1 capsule (300 mg) by mouth in the morning and 1 capsule (300 mg) before bedtime. Do all this for 7 days. 14 capsule 0 No current facility-administered medications on file prior to visit. I have reviewed and reconciled the history and medication list with the patient today. Allergies Allergen Reactions Lorazepam Hallucinations Spironolactone Other Hyperkalemia Social History Tobacco Use Smoking status: Never Smokeless tobacco: Never Vaping Use Vaping status: Never Used Substance Use Topics Alcohol use: Never Drug use: Never Family History Problem Relation Name Age of Onset Cancer Mother Hypertension Mother Mental illness Mother Cancer Father Hypertension Father Past Medical History: Diagnosis Date A-fib (HCC) Acute hyperkalemia 11/08/2024 DONNA (acute kidney injury) 11/08/2024 Arthritis CAD (coronary artery disease) Cerebrovascular accident (HCC) Disease of thyroid gland H/O bladder infections Hearing loss Heart disease History of atrial fibrillation History of being hospitalized 08/28/2023 COPD Exacerbation History of being hospitalized 10/31/2024 Suicidal and Homicidal Ideations History of echocardiogram 2017 EF 60-65% History of heart artery stent History of knee problem History of pacemaker History of sinus problem History of varicose veins Homicidal ideations 11/08/2024 Hyperlipidemia Hypertension Hyperthyroidism Suicidal ideation 11/08/2024 Toxic multinodular goiter Visual impairment Past Surgical History: Procedure Laterality Date APPENDECTOMY AV NODE ABLATION 2020 BLADDER SURGERY CARDIAC CATHETERIZATION 2021 CARDIAC PACEMAKER PLACEMENT 2020 CARDIAC PACEMAKER REMOVAL 2021 ICD implantation HYSTERECTOMY TENDON REPAIR right thumb dr schultz TOTAL KNEE ARTHROPLASTY 2003 dr gonzalez left/ right dr inman 2010 Visit Vitals BP 128/76 Pulse 70 Ht 5' 7 Wt 178 lb SpO2 98% BMI 27.88 kg/m?? Smoking Status Never BSA 1.95 m?? Review of Systems Objective Physical Exam Constitutional: General: She is not in acute distress. Appearance: She is ill-appearing. Cardiovascular: Rate and Rhythm: Normal rate and regular rhythm. Heart sounds: No murmur heard. Pulmonary: Effort: Prolonged expiration present. No accessory muscle usage. Breath sounds: Decreased air movement present. Musculoskeletal: Right lower leg: Edema present. Left lower leg: Edema present. Neurological: Mental Status: She is alert. Psychiatric: Mood and Affect: Mood normal. Thought Content: Thought content normal. Judgment: Judgment normal. Office Visit on 11/08/2024 Component Date Value Ref Range Status Glucose 11/21/2024 126 (H) 65 - 99 mg/dL Final Comment: Fasting reference interval For someone without known diabetes, a glucose value >125 mg/dL indicates that they may have diabetes and this should be confirmed with a follow-up test. BUN 11/21/2024 17 7 - 25 mg/dL Final Creatinine 11/21/2024 1.02 (H) 0.60 - 0.95 mg/dL Final EGFR 11/21/2024 55 (L) > OR = 60 mL/min/1.73m2 Final BUN/CREATININE RATIO 11/21/2024 17 6 - 22 (calc) Final Sodium 11/21/2024 141 135 - 146 mmol/L Final Potassium, Bld 11/21/2024 4.5 3.5 - 5.3 mmol/L Final Chloride 11/21/2024 100 98 - 110 mmol/L Final Carbon Dioxide 11/21/2024 33 (H) 20 - 32 mmol/L Final Calcium 11/21/2024 9.4 8.6 - 10.4 mg/dL Final Clinisync Result Encounter on 10/19/2024 Component Date Value Ref Range Status TBH WBC 10/19/2024 9.4 4.0 - 11.0 10 3/uL Final TBH RBC 10/19/2024 4.24 4.20 - 5.40 10 6/uL Final TBH HGB 10/19/2024 11.9 (L) 12.0 - 16.0 g/dL Final TBH HCT 10/19/2024 38.9 36.0 - 48.0 % Final TBH MCV 10/19/2024 91.7 81.0 - 99.0 fL Final TBH MCH 10/19/2024 28.1 26.7 - 34.0 pg Final TBH MCHC 10/19/2024 30.6 29.9 - 35.2 g/dL Final TBH RDW 10/19/2024 14.5 11.0 - 15.0 % Final TBH PLT 10/19/2024 408 150 - 450 10 3/uL Final TBH MPV 10/19/2024 9.5 9.5 - 13.5 fL Final NEUTROPHILS PERCENT AUTO 10/19/2024 71.5 43.0 - 75.0 % Final LYMPHOCYTES PERCENT AUTO 10/19/2024 17.6 (L) 20.5 - 60.0 % Final MONOCYTES PERCENT AUTO 10/19/2024 7.2 1.7 - 12.0 % Final TBH EO % 10/19/2024 2.7 0.9 - 7.0 % Final BASOPHILS PERCENT AUTO 10/19/2024 0.5 0.2 - 2.0 % Final IMMATURE GRANULOCYTES PCT AUTO 10/19/2024 0.5 0.0 - 0.5 % Final NEUTROPHILS ABSOLUTE AUTO 10/19/2024 6.7 (H) 1.4 - 6.5 10 3/uL Final LYMPHOCYTES ABSOLUTE AUTO 10/19/2024 1.7 1.2 - 3.8 10 3/uL Final MONOCYTES ABSOLUTE AUTO 10/19/2024 0.7 0.3 - 0.8 10 3/uL Final TBH EO # 10/19/2024 0.3 0.0 - 0.7 10 3/uL Final BASOPHILS ABSOLUTE AUTO 10/19/2024 0.1 0.0 - 0.1 10 3/uL Final IMMATURE GRANULOCYTES ABS AUTO 10/19/2024 0.05 (H) 0.00 - 0.03 10 3/uL Final SODIUM 10/19/2024 144 136 - 145 mmol/L Final POTASSIUM 10/19/2024 5.4 (H) 3.5 - 5.1 mmol/L Final CHLORIDE 10/19/2024 106 98 - 107 mmol/L Final CARBON DIOXIDE 10/19/2024 27.8 21.0 - 32.0 mmol/L Final ANION GAP 10/19/2024 15.6 Final GLUCOSE 10/19/2024 126 (H) 74 - 106 mg/dL Final BLOOD UREA NITROGEN 10/19/2024 34.0 (H) 7.0 - 18.0 mg/dL Final CREATININE 10/19/2024 1.37 (H) 0.55 - 1.02 mg/dL Final TBH EGFR-AF SWISS 10/19/2024 45 (L) >=60 mL/min/1.73m 2 Final TBH EGFR-NON AF SWISS 10/19/2024 37 (L) >=60 mL/min/1.73m 2 Final BUN CREATININE RATIO 10/19/2024 24.8 Final CALCIUM 10/19/2024 10.1 8.5 - 10.1 mg/dL Final BILIRUBIN TOTAL 10/19/2024 0.4 0.2 - 1.0 mg/dL Final ASPARTATE AMINO TRANSFERASE 10/19/2024 30 15 - 37 U/L Final ALANINE AMINOTRANSFERASE 10/19/2024 39 14 - 59 U/L Final ALKALINE PHOSPHATASE 10/19/2024 115 46 - 116 U/L Final TOTAL PROTEIN 10/19/2024 8.0 6.4 - 8.2 g/dL Final ALBUMIN LEVEL 10/19/2024 3.3 (L) 3.4 - 5.0 g/dL Final GLOBULIN 10/19/2024 4.7 g/dL Final ALBUMIN GLOBULIN RATIO 10/19/2024 0.7 Final Assessment/Plan Diagnoses and all orders for this visit: Type 2 diabetes mellitus with other specified complication, without long-term current use of insulin (HCC) - FSBS log shows good control, most recent A1C is at or near goal. Continue current treatment plan as previously outlined without changes. Chronic combined systolic (congestive) and diastolic (congestive) heart failure (HCC) - No current active congestive heart failure. Dyspnea at exertion, but not at rest. No evidence ofpulmonary edema. Medications unchanged. 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 Ole Yang in 3 months (on 03/14/2025). documented in this encounter Miscellaneous Notes * Addendum Note - Carmen Guadarrama LPN - 12/14/2024 9:00 AM EDTAddended by: CARMEN GUADARRAMA on: 12/14/2024 10:19 AM Modules accepted: Orders documented in this encounter Plan of Treatment DateTypeDepartmentCare Team (Latest Contact Info)Svpxdgsuxhu67/13/2025 10:00 AM ESTProcedure Visit [facility] [address] [place] [phone] Kenneth Clifton, DPJaguar [address] [facility] [address] [place] [address] 03/22/2025 10:00 AM ESTOffice Visit [facility] [address] [place] [phone] Ole Yang MD [address] [place] [address] 05/31/2025 10:30 AM EDTOffice Visit [facility] [address] [place] [address] Teri Jo MD [address] [place] [address] documented as of this encounter Procedures Procedure NamePriorityDate/TimeAssociated DiagnosisCommentsPOCT GLYCATED HEMOGLOBIN, BYSWGIvovswd88/29/2025 10:19 AM EDT Type 2 diabetes mellitus with other specified complication, without long-term current use of insulin (HCC) documented in this encounter Results * POCT Glycated hemoglobin, total (12/14/2024 10:19 AM EDT)ComponentValueRef RangeTest MethodAnalysis TimePerformed AtPathologist SignatureHemoglobin A1C 5.8Specimen (Source)Anatomical Location / LateralityCollection Method / Volume Collection TimeReceived VkzzVirxx68/29/2025 10:19 AM EDT Narrative Authorizing ProviderResult TypeResult StatusDakylie Yang MDPOINT OF CARE TEST ENTER/EDIT ORDERABLESFinal Result documented in this encounter Visit Diagnoses Diagnosis Type 2 diabetes mellitus with other specified complication, without long-term current use of insulin (HCC)- Primary 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 Hyperthyroidism Thyrotoxicosis without mention of goiter or other cause, without mention of thyrotoxic crisis or storm Pure hypercholesterolemia Chronic kidney disease, stage 3b ([facility]) documented in this encounter Additional Health Concerns AssessmentNoted TimePHQ-9 Depression Total Score: 1304 9:00 AM EDT documented as of this encounter Care Teams Team MemberRelationshipSpecialtyStart DateEnd Date Ole Yang MD [address] [facility] [address] [place], [place] [address] PCP - ACO Reach07/10/22 Ole Yang MD [address] [facility] [address] [place] [address] PCP - GeneralInternal Medicine07/28/22 Edna Alcantara LPN [address] [facility] [address] [place] [address] 05/06/24documented as of this encounter
--- OUTSIDE RECORDS SUMMARY | 2024-12-16 13:46 | XMS_ITS | Encounter Summary ---
Author Organization [facility] Address [address] [place] [address] Care Team Providers Care Iron Erector Name Role Phone Ole Yang MD Primary Care Provider [phone] Reason for Referral * Consultation (Routine) - Pending ReviewSpecialtyDiagnoses / ProceduresReferred By ContactReferred To ContactNephrology Diagnoses Abnormal laboratory test Procedures IA OFFICE/OUTPATIENT NEW HIGH MDM 60 MINUTES Eulogio Wahl CNP [address] [place] [address] Phone: tel: fax: Referral IDStatusReasonStart DateExpiration DateVisits RequestedVisits [id number] Review Specialty Services Required Encounter Details DateTypeDepartmentCare Team (Latest Contact Info)Ehurhrnkulf22/29/2025Orders Only [facility] [address] [place] [address] Ann Marie Del Valle MA Abnormal laboratory test (Primary Dx) Social History Tobacco UseTypesPacks/DayYears UsedDateSmoking Tobacco: NeverSmokeless Tobacco: NeverAlcohol UseStandard Drinks/WeekCommentsNot Currently0 (1 standard drink = 0.6 oz pure alcohol)UT Safety & EnvironmentAnswerDate RecordedFear of Current or Ex-PartnerNot on file04/09/2023Emotionally AbusedNot on file04/09/2023hysically AbusedNot on file04/09/2023Sexually AbusedNot on file04/09/2023hysically or Sexually AbusedNot on file04/09/2023CommentsUnknownSex and Gender InformationValueDate RecordedSex Assigned at ZbhhbFxotkr44/23/2025 11:40 AM EDT Legal FarDrqacz85/29/2022 11:46 PM EDTGender LhrhfngjYpklpo73/23/2025 11:40 AM EDTSexual OrientationChoose not to twqgihzh40/14/2025 9:44 PM EDTdocumented as of this encounter Plan of Treatment DateTypeDepartmentCare Team (Latest Contact Info)Mmynsnxhiuo87/29/2025 2:40 PM ESTOffice Visit [facility] [address] [place] [address] Eulogio Wahl, SCHEDULE SUPERVISOR [address] [place] [address] NameTypePriorityAssociated DiagnosesOrder ScheduleAmbulatory referral to NephrologyOutpatient ReferralRoutine Abnormal laboratory test Expected: 12/14/2024 (Approximate), Expires: 06/14/2025documented as of this encounter Visit Diagnoses Diagnosis Abnormal laboratory test- Primary Other abnormal clinical finding documented in this encounter Care Teams Team MemberRelationshipSpecialtyStart DateEnd Date Ole Yang MD [address] [facility] [address] [place] [address] PCP - General10/07/21documented as of this encounter
--- OUTSIDE RECORDS SUMMARY | 2024-12-16 13:46 | XMS_ITS | Encounter Summary ---
Author Organization [facility] Address [address] [place] [address] Care Team Providers Care Superintendent Fish [employer]cher[employer] Name Role Phone Ole Yang MD Primary Care Provider [phone] Encounter Details DateTypeDepartmentCare Team (Latest Contact Info)Bjawllkqjkh30/27/2025Telephone [facility] [address] [place] [address] Ann Marie Del Valle MA Social History Tobacco UseTypesPacks/DayYears UsedDateSmoking Tobacco: NeverSmokeless Tobacco: NeverAlcohol UseStandard Drinks/WeekCommentsNot Currently0 (1 standard drink = 0.6 oz pure alcohol)UT Safety & EnvironmentAnswerDate RecordedFear of Current or Ex-PartnerNot on file04/09/2023Emotionally AbusedNot on file04/09/2023hysically AbusedNot on file04/09/2023Sexually AbusedNot on file04/09/2023hysically or Sexually AbusedNot on file04/09/2023CommentsUnknownSex and Gender InformationValueDate RecordedSex Assigned at NclxeVugrtu15/23/2025 11:40 AM EDT Legal LsqXiowfx84/29/2022 11:46 PM EDTGender AttxfahoZbmduu02/23/2025 11:40 AM EDTSexual OrientationChoose not to wleoxall09/14/2025 9:44 PM EDTdocumented as of this encounter Functional Status * BPAnswerDate of NxywwxejftAuurdj635/8410/ 3:30 PM EDAnn Marie Barajas MA * PulseAnswerDate of IhhsurkkpmIgkbke7165 3:30 PM EDAnn Marie Barajas MA * Patient PositionAnswerDate of DiywikvobpPhugqqZzdjvwa58/27/2025 3:30 PM EDT Ann Marie Del Valle MA * BPAnswerDate of ThbgamwuhfHfhtnm352/8410 3:30 PM EDAnn Marie Barajas MA * PulseAnswerDate of YnjaoiivswQymosi6640 3:30 PM EDAnn Marie Barajas MA * ZzD5YxgtrcHnmd of FgvmwsshgjHvrblx7966 3:30 PM EDAnn Marie Barajas MA * BP LocationAnswerDate of AssessmentAuthorLeft arm12/12/2024 3:30 PM EDT Ann Marie Del Valle MA * Patient PositionAnswerDate of ApxtrhwqogEhxfuyMnybxcf58/27/2025 3:30 PM EDT Ann Marie Del Valle MA documented as of this encounter Miscellaneous Notes * Telephone Encounter - Ann Marie Del Valle MA - 12/12/2024 4:50 PM EDT LVM for Lluvia's daughter Ashtyn to increase Amlodipine to 5mg. Keep track of daily weights, blood pressure and pulse. 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 has a system configuration specialist per Eulogio Wahl. documented in this encounter Plan of Treatment DateTypeDepartmentCare Team (Latest Contact Info)Bbpexyiurmk23/29/2025 2:40 PM ESTOffice Visit [facility] [address] [place] [address] Eulogio Wahl, HAND II TUBE BENDER [address] [place] [address] documented as of this encounter Visit Diagnoses Not on filedocumented in this encounter Care Teams Team MemberRelationshipSpecialtyStart DateEnd Date Ole Yang MD [address] [address] PCP - General10/07/21documented as of this encounter
--- OUTSIDE RECORDS SUMMARY | 2024-12-16 13:46 | XMS_ITS | Encounter Summary ---
Author Organization [facility] Address [address] [place] [address] Care Team Providers Care Animal Care Supervisor Name Role Phone Ole Yang MD Unavailable [phone] Ole Yang MD Primary Care Provider Edna Alcantara LPN Unavailable Encounter Details DateTypeDepartmentCare Team (Latest Contact Info)Myvuhketkxs78/27/2025bstract [facility] [place] [address] [facility] [address] [place] [id number] Ole Yang MD [address] [facility] [address] [place] [address] Social History Tobacco UseTypesPacks/DayYears UsedDateSmoking Tobacco: NeverSmokeless Tobacco: NeverAlcohol UseStandard Drinks/WeekCommentsNever0 (1 standard drink = 0.6 oz pure alcohol)B1300 Health LiteracyAnswerDate RecordedHow often do you need to have someone help you when you read instructions, pamphlets, or other written material from your doctor or pharmacy?Dvgcadexp90/16/2025Humiliation, Afraid, Rape, and Kick questionnaireAnswerDate RecordedWithin the [...] relatives?Twice a week06/01/2024How often do you attend yarsani or voodoo services?Never06/01/2024Do you belong to any clubs or organizations such as yarsani groups, unions, fraternal or athletic groups, or school groups?No06/01/2024How often do you attend meetings of the clubs or organizations you belong to?Never06/01/2024re you , , , , never , or living with a partner?Uaqooxm8906/01/2024 AUDIT-CAnswerDate RecordedQ1: How often do you have [...] very hard 06/01/2024PHQ-2AnswerDate RecordedPatient Health Questionnaire-2 Score0 11/08/2024[facility] - Occupational Stress QuestionnaireAnswerDate [...] living in a senior living (including now)? No06/01/2024CommentsUnknownSex and Gender InformationValueDate Recorded Sex Assigned at BirthNot on fileLegal DjhUcwfav85/15/2023 7:05 PM EDTGender IdentityNot on fileSexual OrientationNot on filedocumented as of this encounter Plan of Treatment DateTypeDepartmentCare Team (Latest Contact Info)Vufskgzebpx43/13/2025 10:00 AM ESTProcedure Visit [facility] [address] [place] [address] [place] [address] Kenneth Clifton, DAREN [address] [facility] [address] [place] [address] 03/22/2025 10:00 AM ESTOffice Visit [facility] [place] [facility] [address] [place] [address] [place] [address] Ole Yang MD [address] [place] [address] [place] [address] 05/31/2025 10:30 AM EDTOffice Visit [facility] [place] [facility] [address] [place] [address] Teri Jo MD [address] [place] [address] documented as of this encounter Visit Diagnoses Not on filedocumented in this encounter Additional Health Concerns AssessmentNoted TimePHQ-9 Depression Total Score: 13006/02/2024 9:00 AM EDT documented as of this encounter Care Teams Team MemberRelationshipSpecialtyStart DateEnd Date Ole Yang MD [address] [place] [address] [place] [address] PCP - ACO Reach07/10/22 Ole Yang MD [address] [place] [address] [place] [address] PCP - GeneralInternal Medicine07/28/22 Edna Alcantara LPN [address] [place] [address] [place] [address] 05/06/24documented as of this encounter
--- OUTSIDE RECORDS SUMMARY | 2024-12-16 13:46 | XMS_ITS | Clinical Summary ---
Author Organization [employer] Address [id number] [address] [place] [address] Care Team Providers Care Antique Dealer Name Role Phone Ole Yang MD Primary Care Provider [phone] Allergies No known active allergies Medications MedicationSigDispense QuantityRefillsLast FilledStart DateEnd DateStatus cholecalciferol, vitamin D3, 10 mcg (400 unit) capsule 1 (one) time each day at the same time.Active multivitamin,iv-leht-Zz-FA-min 27-0.4 mg tablet 1 (one) time each day at the same time.Active ELIQUIS 5 mg tablet 05/28/2022ctive aspirin 81 mg daily.Active atorvastatin (LIPITOR) 80 mg tablet 08/03/2022ctive bumetanide (BUMEX) 1 mg tablet as needed.Active calcium carbonate-vitamin D3 600 mg(1,500mg) -200 units per tablet 1 (one) time each day at the same time.Active LORazepam (ATIVAN) 0.5 mg tablet lorazepam 0.5 mg nqavqi4008/21/2021ctive lovastatin (MEVACOR) 40 mg tablet lovastatin 40 mg tabletActive metoprolol succinate XL (TOPROL XL) 50 mg 24 hr tablet 08/03/2022ctive PARoxetine (PAXIL) 20 mg tablet 08/03/2022ctive tiotropium-olodateroL 2.5-2.5 mcg/actuation mist Inhale 2 puffs every day by inhalation route.Active lisinopriL (PRINIVIL,ZESTRIL) 5 mg tablet Take 1 tablet (5 mg total) by mouth in the morning.Active methIMAzole (TAPAZOLE) 10 mg tablet Take 0.5 tablets every day by oral route.Active spironolactone (ALDACTONE) 25 mg tablet Take 1 tablet (25 mg total) by mouth in the morning.Active ascorbic acid, vitamin C, (vitamin C) 1000 mg tablet Take 1 tablet (1,000 mg total) by mouth in the morning.Active predniSONE (DELTASONE) 20 mg tablet TAKE 1 TABLET (20 MG) BY MOUTH IN THE MORNING AND 1 TABLET (20 MG) BEFORE BEDTIME. DO ALL THIS FOR 5 DAYS.12/16/2022ctive Active Problems No known active problems Encounters DateTypeDepartmentCare LgeeRhnqodfqwcv31/03/2025Lab Requisition [facility] [address] [place] [address] Ole Yang MD Altered mental status, unspecifiedfrom Last 3 Months Family History Medical HistoryRelationNameCommentsCataractsMotherRelationNameStatusComments Mother Social History Tobacco UseTypesPacks/DayYears UsedDateSmoking Tobacco: NeverSmokeless Tobacco: Never Tobacco Cessation:Counseling Given: Not Answered CommentsUnknownSex and Gender InformationValueDate RecordedSex Assigned at BirthNot on fileLegal ThkAbhgem99/15/2023 10:11 AM EDTGender IdentityNot on fileSexual OrientationNot on file Last Filed Vital Signs Vital SignReadingTime TakenCommentsBlood Aimtvxms137/7410 9:33 AM EDT Omdui147412/03/2022 9:33 AM EDTTemperature--Respiratory Zaal3237 2:11 PM EDTOxygen Lcxyryahiv82%09/11/2022 2:11 PM EDTInhaled Oxygen Concentration-- Vdregv03.7 kg (178 lb)12/03/2022 9:33 AM OVXMxiizy621.2 cm (5' 7 )12/03/2022 9:33 AM EDTBody Mass Index27.8812/03/2022 9:33 AM EDT Plan of Treatment Health MaintenanceDue DateLast DoneCommentsDepression Tmkkkfcpx49/01/1953 DTaP,Tdap and Td Vaccines (1 - Tdap)1961Fall Risk Xbpzomrma62/01/2008 Tobacco Xzoeblzki64/12/513031/4COVID-19 Vaccine ( season) /, 12/10/2021, 02/03/2021, Additional history existsInfluenza Nivrvqu18/12/2022, 12/10/2021, 01/17/2021, Additional history exists Zoster (Shingles) RrbfjgzFglrnvoeu53/16/2023, 04/16/2022 Medical Devices ImplantedTypeAreaManufacturerDevice IdentifierShelf Expiration DateModel / Serial / LotIcdICDBoston [id number] / [id number] / Procedures Procedure NamePriorityDate/TimeAssociated DiagnosisCommentsURINALYSISRoutine 10/19/2024 5:00 PM EDT Altered mental status, unspecified from Last 3 Months Results * (ABNORMAL) Urinalysis (10/19/2024 5:00 PM EDT)ComponentValueRef RangeTest MethodAnalysis TimePerformed AtPathologist SignatureCOLORYellowYellow 10/19/2024 7:52 PM EDTPMAIN CAMPUS MEDICAL CENTERTURBIDITYClearClear 10/19/2024 7:52 PM EDTPCENTERVILLEPECIFIC GRAVITY 1.0151.003 - 1.59937 7:52 PM EDTPMAIN CAMPUS MEDICAL [facility]ENTER GPMCMBIGcfkgxlpDbmpwxyb92/03/2025 7:52 PM EDTPMAIN CAMPUS MEDICAL CENTERPH,URINE6.05.0 - 8.509 7:52 PM EDTPMAIN CAMPUS MEDICAL CENTERLEUKOCYTE DTDYMIMLMfyphcnuSwrjxppx08/03/2025 7:52 PM EDTPMAIN CAMPUS MEDICAL CENTERPROTEINNegativeNegative10/19/2024 7:52 PM EDT [facility]ENTERKETONES (URINE)Trace(A)Rqudmcwc02/03/2025 7:52 PM EDTPMAIN CAMPUS MEDICAL CENTERUROBILINOGEN1.0 eu/dL0.2 eu/dL, 1.0 eu/dL10/19/2024 7:52 PM EDTPMAIN CAMPUS MEDICAL CENTERBILIRUBIN (URINE)SwrtfavoDaplfqoq65/03/2025 7:52 PM EDTPMAIN CAMPUS MEDICAL CENTERBLOOD/NMDIvoghlybAyvjtupf99/03/2025 7:52 PM EDTPMAIN CAMPUS MEDICAL CENTERGLUCOSE (URINE)NegativeNegative, 250 mg/dL10/19/2024 7:52 PM EDTPCENTERVILLEpecimen (Source)Anatomical Location / LateralityCollection Method / VolumeCollection TimeReceived TimeUrine (Other) 10/19/2024 5:00 PM EDT10/19/2024 7:24 PM EDT Narrative Authorizing ProviderResult TypeResult StatusDakylie MONTALVO ORDERABLES Final ResultPerforming OrganizationAddressCity/State/ZIP CodePhone Number [facility] [address] [place] [address], from Last 3 Months Insurance Care Teams Team MemberRelationshipSpecialtyStart DateEnd Ole Yang MD [address] [facility], [facility] [address] [place] [address] PCP - GeneralInternal Medicine08/13/22
--- OUTSIDE RECORDS SUMMARY | 2024-12-16 13:46 | XMS_ITS | Clinical Summary ---
Author Organization [facility] Address [address] [place] [address] Care Team Providers Care Money Room Supervisor Name Role Phone Ole Yang MD Unavailable Ole Yang MD Primary Care Provider [phone] Edna Alcantara LPN Unavailable Allergies Active AllergyReactionsCriticalityNoted DateCommentsLorazepamHallucinationsHigh 11/08/20247877UbgtdebpetptsgEoitjCqlzev83/23/2025 Hyperkalemia Medications MedicationSigDispense QuantityRefillsLast FilledStart DateEnd DateStatus aspirin 81 MG EC tablet 1 (one) time each day at the same timeActive Multiple Vitamins-Minerals (Multi For Her 50+) tablet 1 (one) time each day at the same timeActive apixaban (Eliquis) 5 MG tablet Indications:Paroxysmal atrial fibrillation (HCC)Take 1 tablet (5 mg) by mouth in the morning and 1 tablet (5 mg) before bedtime. 200 tablet 5Active atorvastatin (Lipitor) 80 MG tablet Indications:Atherosclerosis of diomede coronary artery of diomede heart without angina pectorisTake 1 tablet (80 mg) by mouth Daily 100 tablet 5Active PARoxetine (Paxil) 20 MG tablet Indications:AnxietyTake 1 tablet (20 mg) by mouth in the morning. 100 tablet 5Active metoprolol succinate XL (Toprol-XL) 50 MG 24 hr tablet Indications:Paroxysmal atrial fibrillation (HCC)Take 1 tablet (50 mg) by mouth Daily 100 tablet 5Active methIMAzole (Tapazole) 5 MG tablet Take 5 mg by mouth DailyActive melatonin 5 MG tablet Take 5 mg by mouth Daily5Active cholecalciferol 1000 units capsule Indications:Age-related osteoporosis without current pathological fractureTake 1,000 Units by mouth in the morning and 1,000 Units before bedtime.11/08/2024 Active calcium carbonate (Calcium 600) 600 MG tablet Indications:Age-related osteoporosis without current pathological fractureTake 1 tablet (600 mg) by mouth in the morning and 1 tablet (600 mg) in the evening. 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 Do all this for 7 days. 14 capsule Discontinued(Therapy completed) Active Problems ProblemNoted DateDiagnosed ZpndZmuzepdj51/23/2025Essential hypertension 08/11/2024Pure rwpqxrgolzwandtjbywo92/26/2025Trouble in dkcnrrro57/22/2025 Supplemental oxygen daerzwnjx39/09/2025hronic kidney disease, stage 3b 02/25/20243964Wpravuq31/10/2024yspnea on vlnxalic87/21/2024ardiomyopathy, welnaenatpq60/21/2024urrent use of buttermaker helper psamspfywsbjkxk62/27/2023ge- related osteoporosis without current pathological akrjsnlw96/12/2023nxiety 07/28/2022rthritis of right shoulder ozowzb3907/28/2022hronic atrial fibrillation, /12/2023hronic combined systolic (congestive) and diastolic (congestive) heart cnqfgex2507/28/2022hronic obstructive pulmonary disease, zedfzbznemd31/12/2023hronic systolic dysfunction of left ventricle 07/28/20221406Hrqualhy47/12/2023Elevated liver hcdqsrb1307/28/2022Frequent falls 07/28/20225694Xihvqpafwcnvdyo28/12/2023ICD (implantable cardioverter-defibrillator) in place07/28/2022Impaired fasting kmegopu6607/28/2022Joint derangement of shoulder feyxvm2407/28/2022Mild episode of recurrent major depressive disorder 07/28/2022Non-rheumatic mitral agptaiglhxutb97/12/2023Overweight (BMI 25.0-29.9) 07/28/2022rimary ujewsnfozsablo68/12/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 dfpirel8207/28/2022 Rotator cuff syndrome of right zhkqeowb53/12/2023Status post biventricular cardiac pacemaker jgxulnblh27/13/2021anlobular ajsncowek94/01/2021 Overview (08/26/2023): Last Assessment & Plan: If cardiac studies are without any acute concerns she may need to F/U with pulmonary for evaluationof CLAIRE History of stroke without residual xuijhizd13/08/2021Mild intermittent asthma 09/12/2016Coronary artery disease involving diomede coronary artery of diomede heart without angina nogswywn01/08/2016Benign hypertensive heart disease with heart vyuisvl4009/24/2015 Resolved Problems ProblemNoted DateDiagnosed DateResolved DateSuicidal pulbpugz88/23/2025 11/08/2024Homicidal yycctbcsf54KI (acute kidney injury) 509/5Acute ihewbywuhdeh33ute dehydration bnormal results of pulmonary function cflvdjo5707/28/2022 07/30/2022oronary arteriosclerosis in diomede uswkas96ardiac pacemaker in situ/Tear of right rotator cuff09/12/2016 06/02/2024therosclerosis of coronary artery without angina abhznpyv98/20/2017 02/25/2024Systolic heart piluwwr04Inguinal pain10/04/2015 05/27/2023erebrovascular yqgjqqso67Hematoma of groin Encounters DateTypeDepartmentCare JlbxXwjaweficwn89/29/2025 9:00 AM EDTOffice Visit [facility] [address] [facility] [address] [place] [address] Ole Yang MD Type 2 diabetes mellitus with other specified complication, without long-term current use of insulin (HCC) (Primary Dx); Chronic combined systolic (congestive) and diastolic (congestive) heart failure (HCC); 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; Hyperthyroidism; Pure hypercholesterolemia; Chronic kidney disease, stage 3b ([facility]-HCC)12/14/2024amboo flowsheet [facility] [address] [facility] [address] [place] [address] Ole Yang MD 12/14/20248417Pbazse16/28/2025bstract [facility] [address] [facility] [address] [place] [address] Ole Yang MD 12/12/2024bstract [facility] [address] [facility] [address] [place] [address] Ole Yang MD 12/12/2024bstract [facility] [address] [place] [address] Ole Yang MD 12/08/2024bstract [facility] [address] [place] [address] Ole Yang MD 12/07/2024Telephone [facility] [address] [place] [address] Ole Yang MD 12/07/2024bstract [facility] [address] [place] [address] Ole Yang MD 11/30/2024 10:00 AM EDTOffice Visit [facility] [address] [place] [address] Teri Jo MD Hyperthyroidism (Primary Dx); Multinodular goiter; Longstanding persistent atrial fibrillation (HCC)11/30/2024Patient Outreach [facility] [address] 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 [address] Edna Alcantara LPN 11/22/2024bstract [facility] [address] [place] [address] Ole Yang MD 11/22/2024Orders Only [facility] [address] [place] [address] Teri Jo MD 11/21/2024Results Follow-Up [facility] [address] [place] [address] Dipti Wolf PA Basic metabolic panel11/19/2024Telephone [facility] [address] [place] [address] Ole Yang MD 11/17/2024bstract [facility] [address] [place] [address] Ole Yang MD 11/17/2024bstract [facility] [address] [place] [address] Ole Yang MD 11/16/2024Patient Outreach [facility] [address] [place] [address] Edna Alcantara LPN 11/16/2024bstract [facility] [address] [place] [address] Ole Yang MD 11/10/2024bstract [facility] [address] [place] [address] Ole Yang MD 11/10/2024Patient Outreach [facility] [address] [place] [address] Edna Alcantara, [facility] 11/10/2024Patient Outreach [facility] [address] [place] [address] Edna Alcantara, FIRE EXTINGUISHER MECHANIC 11/09/2024bstract [facility] [address] [place] [address] Ole Yang MD 11/09/2024bstract [facility] [address] [place] [address] Ole Yang MD 11/08/2024 3:00 PM EDTOffice Visit [facility] [address] [place] [address] Dipti Wolf, PA 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); Panlobular emphysema (HCC); Frequent falls; History of stroke without residual deficits; Supplemental oxygen dependent; Age-related osteoporosis without current pathological fracture ; Hyperkalemia; Impaired fasting glucose; Chronic kidney disease, stage 3b (CMS-HCC); Essential iaoukibazdkv50/23/2025amboo flowsheet [facility] [address] [place] [address] Dipti Wolf PA 11/08/20246041Ymynab98/19/2025Patient Outreach [facility] [address] [place] [address] Edna Alcantara, [facility] 11/04/2024bstract [facility] [address] [place] [address] Ole Yang MD 11/03/2024bstract [facility] [address] [place] [address] Ole Yang MD 11/02/2024bstract [facility] [address] [place] [address] Ole Yang MD 11/02/2024bstract [facility] [address] [place] [address] Ole Yang MD 11/01/2024bstract [facility] [address] [place] [address] Ole Yang MD 11/01/2024bstract [facility] [address] [place] [address] Ole Yang MD 11/01/2024bstract [facility] [address] [place] [address] Ole Yang MD 11/01/2024bstract [facility] [address] [place] [address] Ole Yang MD 10/31/2024 1:30 PM EDTOffice Visit [facility] [address] [place] [address] Ole Yang MD Mild cognitive impairment (Primary Dx); Major depressive disorder, remission status unspecified, unspecified whether recurrent ; Chronic combined systolic (congestive) and diastolic (congestive) heart failure (HCC); Memory changes; Anxiety; Right sided sciatica; Impaired gait and kizlxulb85/15/2025bstract [facility] [address] [place] [address] Ole Yang MD 10/31/2024amboo flowsheet [facility] [address] [place] [address] Ole Yang MD 10/31/20244727Qpbnpq52/11/2025Telephone [facility] [address] [place] [address] Ole Yang MD 10/26/2024Patient Outreach [facility] [address] [place] [address] Edna Alcantara FIRE EXTINGUISHER MECHANIC 10/26/2024bstract [facility] [address] [place] [address] Ole Yang MD 10/25/2024bstract [facility] [address] [place] [address] Ole Yang MD 10/24/2024bstract [facility] [address] [place] [address] Edna Alcantara LPN 10/24/2024Patient Outreach [facility] [address] [place] [address] Edna Alcantara FIRE EXTINGUISHER MECHANIC 10/24/2024Patient Outreach [facility] [address] [place] [address] Edna Alcantara FIRE EXTINGUISHER MECHANIC 10/20/2024Patient Outreach [facility] [address] [place] [address] Edna Alcantara FIRE EXTINGUISHER MECHANIC 10/20/2024bstract [facility] [address] [place] [address] Ole Yang MD 10/20/2024bstract [facility] [address] [place] [address] Ole Yang MD 10/19/2024Telephone [facility] [address] [place] [address] Ole Yang MD 10/19/2024linisync Result Encounter [facility] External Department Unsolicited Jazmyn Baum, GLENNY 10/18/2024Patient Outreach [facility] [address] [place] [address] Edna Alcantara LPN 10/14/2024Patient Outreach [facility] [address] [place] [address] Edna AlcantaraJUAN 10/13/2024 10:30 AM EDTOffice Visit [facility] [address] [place] [address] Jazmyn Baum, BAR ASSISTANT Dementia with behavioral disturbance (HCC) (Primary Dx); Age-related osteoporosis without current pathological fracture ; Fatigue, unspecified type; Anxiety; Right sided sciatica; Chronic respiratory failure, unspecified whether with hypoxia or hypercapnia (HCC); Chronic respiratory failure with hypoxia (HCC)10/13/2024 9:30 AM EDTOffice Visit [facility] [address] [place] [address] Kenneth Clifton DPM Venous insufficiency (Primary Dx); Deformity of toenail; Pain due to onychomycosis of toenails of both feet10/13/2024amboo flowsheet [facility] [address] [place] [address] Kenneth Clifton DPM 10/13/20247853Chginb67/27/2025bstract [facility] [address] [facility] [address] [place] [address] Ole Yang MD 10/10/2024Patient Outreach [facility] [address] [place] [address] Zac AlcantaraJUAN [place] 10/09/20247644Lkrxkb90/15/2025Abstract [facility] [address] [facility] [address] [place] [address] Ole Yang MD 09/29/2024Telephone [facility] [address] [place] [address] Dipti Wolf PA 09/27/2024Telephone [facility] [address] [place] [address] [place] [address] Ole Yang MD 09/27/2024bstract [facility] [address] [place] [address] Ole Yang MD 09/26/2024External Result Encounter [facility] External Department Unsolicited Ole Yang MD 09/26/2024linisync Result Encounter [facility] External Department Unsolicited Ole Yang MD 09/19/2024bstract [facility] [address] [facility] [address] [place] [address] lOe Yang MD from Last 3 Months Immunizations ImmunizationAdministration DatesNext DueABRYSVO - Respiratory syncytial virus (RSV), vaccine, bivalent, protein subunit RSV prefusion F, diluent reconstituted, 0.5 mL, PF12/10/2022Influenza, High Dose Seasonal, Preservative Free12/10/2021,01/17/2021Influenza, High-dose Seasonal, Quadrivalent, Preservative Free11/26/2023,12/02/2017,12/11/2016Influenza, Seasonal, Quadrivalent, Gwcuwcupjo15/11/2023Influenza, trivalent, /24/2020, 11/25/2018Moderna SARS-CoV-2 50mcg/0.5mL Dkvxjeq2712/10/2021neumococcal Conjugate PCV 1305Pneumococcal Polysaccharide TIOR5694,08/17/2007 SARS-COV-2 (COVID-19) vaccine, mRNA, spike protein, LNP, PF, robert-sucrose, 30 mcg/0.3 mL12/10/2023,01/01/2023Zoster, Mhjjodjylam48/16/2023,04/16/2022 Family History Medical HistoryRelationNameCommentsCancerFatherHypertensionFatherCancerMother HypertensionMotherMental illnessMotherRelationNameStatusCommentsBrother1 alive, 1 decFatherDeceasedMotherDeceasedSisterx 3AliveSonx 1Alive Social History Tobacco UseTypesPacks/DayYears UsedDateSmoking Tobacco: NeverSmokeless Tobacco: Never Tobacco Cessation:Counseling Given: Yes Alcohol UseStandard Drinks/WeekCommentsNever0 (1 standard drink = 0.6 oz pure alcohol)B1300 Health LiteracyAnswerDate RecordedHow often do you need to have someone help you when you read instructions, pamphlets, or other written material from your doctor or pharmacy?Etaipmxfu03/16/2025Humiliation, Afraid, Rape, and Kick questionnaireAnswerDate RecordedWithin the [...] relatives?Twice a week06/01/2024How often do you attend jew or worship services?Never06/01/2024Do you belong to any clubs or organizations such as jew groups, unions, fraternal or athletic groups, or school groups?No06/01/2024How often do you attend meetings of the clubs or organizations you belong to?Never06/01/2024re you , , , , never , or living with a partner?Lfwgxhc8306/01/2024 AUDIT-CAnswerDate RecordedQ1: How often do you have [...] very hard 06/01/2024PHQ-2AnswerDate RecordedPatient Health Questionnaire-2 Score0 11/08/2024[facility] [facility] - Occupational Stress QuestionnaireAnswerDate [...] were you homeless or living in a fci (including now)? No06/01/2024CommentsUnknownSex and Gender InformationValueDate Recorded Sex Assigned at BirthNot on fileLegal HqrNthgdz83/15/2023 7:05 PM EDTGender IdentityNot on fileSexual OrientationNot on file Last Filed Vital Signs Vital SignReadingTime TakenCommentsBlood Rmvfubjt616/7612/14/2024 8:58 AM EDT Aaymc177612/14/2024 8:58 AM WRYJsbnunxeuuz63.2 ??C (100.8 ??F)11/28/2024 2:25 PM EDTRespiratory Nklx5590 10:04 AM EDTOxygen Fomksxmaml76%12/14/2024 8:58 AM EDTInhaled Oxygen Concentration--Lzxluk33.7 kg (178 lb)12/14/2024 8:58 AM EDT Pcweot270.2 cm (5' 7 )12/14/2024 8:58 AM EDTBody Mass Index27.8812/14/2024 8:58 AM EDT Plan of Treatment DateTypeDepartmentCare Team (Latest Contact Info)Bcvbbswepmi82/13/2025 10:00 AM ESTProcedure Visit [facility] [address] [facility] [address] [place] [address] Kenneth Clifton, DPM [address] [facility] [place] [address] 03/22/2025 10:00 AM ESTOffice Visit [facility] [address] [facility] [address] [place] [address] Ole Yang MD 112 [facility] [address] [place] [address] 05/31/2025 10:30 AM EDTOffice Visit [facility] [address] [place] [address] Teri Jo MD [address] [place] [address] Health MaintenanceDue DateLast DoneCommentsDTaP/Tdap/Td Vaccines (1 - Tdap) 1947Diabetes: Retinopathy Xhbvcztkf96/01/1953Diabetes: Urine Protein Detdikskf96/01/1962Hepatitis A Vaccines (1 of 2 - Risk 2-dose series)1961 Hepatitis B Vaccines (1 of 3 - Risk 3-dose series)2002COVID-19 Vaccine ( season)51, 01/01/2023, 12/10/2021, Additional history existsDiabetes: Hemoglobin A1C61, 06/06/2024 Pneumococcal Vaccine: 65+ OyeyxXfttyfrbh50/08/2020, 06/25/2018, 08/17/2007 Influenza JgzbvmgGptksjqcn21/23/2025, 11/26/2023, 11/26/2022, Additional history existsHIB VaccinesAged OutNo longer eligible based on patient's age to complete this topicHPV VaccinesAged OutNo longer eligible based on patient's age to complete this topicIPV VaccinesAged OutNo longer eligible based on patient's age to complete this topicMeningococcal B VaccineAged OutNo longer eligible based on patient's age to complete this topicMeningococcal VaccineAged OutNo longer eligible based on patient's age to complete this topicRotavirus VaccinesAged Out No longer eligible based on patient's age to complete this topic Procedures Procedure NamePriorityDate/TimeAssociated DiagnosisCommentsPOCT GLYCATED HEMOGLOBIN, JDVUFOmnjjqa19/29/2025 10:19 AM EDT Type 2 diabetes mellitus with other specified complication, without long-term current use of insulin (HCC) UDDVeqrxju90/07/2025 8:24 AM EDTT4, KKTPYzitxxe36/07/2025 8:24 AM EDTT3, FREE Whvitml6011/22/2024 8:24 AM EDTBASIC METABOLIC ZIFSVFnsaryh56/06/2025 8:03 AM EDT Hyperkalemia Chronic kidney disease, stage 3b (CMS-HCC) URINALYSIS, MANUAL SJLRUsfybod27/03/2025 5:00 PM EDT [facility] CMP (CMP) (FOR REMOTE [facility] USE)Urmwtxa8510/19/2024 8:25 AM EDT ALL CBC WITH AUTO ZMZEDinlbyv58/03/2025 8:25 AM EDT URINE CULTURE - GMCQIhpdoah03/11/2025 1:30 PM EDT ALL OQVQBXRCFMXifybgp21/11/2025 1:30 PM EDT CULTURE, URINE, IBNZBNZHuhjelk86/11/2025 1:30 PM EDT from Last 3 Months Results * POCT Glycated hemoglobin, total (12/14/2024 10:19 AM EDT)ComponentValueRef RangeTest MethodAnalysis TimePerformed AtPathologist SignatureHemoglobin A1C 5.8Specimen (Source)Anatomical Location / LateralityCollection Method / Volume Collection TimeReceived VjyaQlnye90/29/2025 10:19 AM EDT Narrative Authorizing ProviderResult TypeResult Sarath Yang MDPOINT OF CARE TEST ENTER/EDIT ORDERABLESFinal Result * T3, free (11/22/2024 8:24 AM EDT)Specimen (Source)Anatomical Location / LateralityCollection Method / VolumeCollection TimeReceived TimeBloodVenous blood specimen / Unknown Narrative Authorizing ProviderResult TypeResult StatusTeri Oseigh LomakiLAB BLOOD ORDERABLESFinal Result * TSH (11/22/2024 8:24 AM EDT)Specimen (Source)Anatomical Location / Laterality Collection Method / VolumeCollection TimeReceived TimeBloodVenous blood specimen / Unknown Narrative Authorizing ProviderResult TypeResult Statusmaden Escobar Sandro LomakiLAB BLOOD ORDERABLESFinal Result * T4, free (11/22/2024 8:24 AM EDT)Specimen (Source)Anatomical Location / LateralityCollection Method / VolumeCollection TimeReceived TimeBloodVenous blood specimen / Unknown Narrative Authorizing ProviderResult TypeResult StatusAmerican Fork Hospitald Luz Sandro LomakiLAB BLOOD ORDERABLESFinal Result * (ABNORMAL) Basic metabolic panel (11/21/2024 8:03 AM EDT)ComponentValueRef RangeTest MethodAnalysis TimePerformed AtPathologist PlxskucrnLqapqfb951(H)65 - 99 mg/dLQUESTComment: ? Fasting reference interval For someone without known diabetes, a glucose value >125 mg/dL indicates that they may have diabetes and this should be confirmed with a follow-up test. KAD455 - 25 mg/dLQUESTCreatinine1.02(H)0.60 - 0.95 mg/bDLMUVWRJSG81(L)> OR = 60 mL/min/1.92u1WJOCCDNX/CREATININE IGYMX040 - 22 (calc)LSYKRPoyfys618980 - 146 mmol/LQUESTPotassium, Bld4.53.5 - 5.3 mmol/OHPZFFFixcbgdx61760 - 110 mmol/LQUEST Carbon Piveyce84(H)20 - 32 mmol/LQUESTCalcium9.48.6 - 10.4 mg/dLQUESTSpecimen (Source)Anatomical Location / LateralityCollection Method / VolumeCollection TimeReceived TimeBloodVenous blood specimen / Fkcunfd9611/21/2024 8:03 AM EDT 11/21/2024 2:45 PM EDT Narrative Resulting Agency Comment Performing Organization Information ?Site ID: [id number] ?Name: [facility] ?Address: [address] [place] [id number] ?Director: Priyanka Nazario Authorizing ProviderResult TypeResult StatusDipti Wolf PAL BLOOD ORDERABLESFinal ResultPerforming OrganizationAddressCity/State/ZIP CodePhone Number QUEST * (ABNORMAL) Urinalysis, manual only (10/19/2024 5:00 PM EDT)ComponentValueRef RangeTest MethodAnalysis TimePerformed AtPathologist SignatureCOLORYellow YellowPROMEDICATURBIDITYClearClearPROMEDICASPECIFIC GRAVITY1.0151.003 - 1.035 NAPROMEDICANITRITENegativeNegativePROMEDICAPH, URINE6.05.0 - 8.5 [place] LEUKOCYTE ESTERASENegativeNegativePROMEDICAPROTEINNegativeNegativePROMEDICA KETONES (URINE)Trace(A)NegativePROMEDICAUROBILINOGEN1.0 eu/dL0.2 eu/dL, 1.0 eu/dLPROMEDICABILIRUBIN (URINE)NegativeNegativePROMEDICABLOOD/HGBNegative NegativePROMEDICAGLUCOSE (URINE)NegativeNegative, 250 mg/dLPROMEDICAComment: ?? PERFORMED AT [address] [place] [address] Specimen (Source)Anatomical Location / LateralityCollection Method / Volume Collection TimeReceived Time10/19/2024 5:00 PM EDT10/19/2024 7:24 PM EDT Narrative Authorizing ProviderResult TypeResult StatusDakylie DORAN URINE ORDERABLESFinal ResultPerforming OrganizationAddressCity/State/ZIP CodePhone Number [place] * (ABNORMAL) [facility] CMP (CMP) (FOR REMOTE [facility] USE) (10/19/2024 8:25 AM EDT) ComponentValueRef RangeTest MethodAnalysis TimePerformed AtPathologist [id number] - 145 mmol/LTBHPOTASSIUM5.4(H)3.5 - 5.1 mmol/LTBH VALMEQOV48101 - 107 mmol/LTBHCARBON XNHKGGZ55.821.0 - 32.0 mmol/LTBHANION GAP 15.3JBTEEUSLIG821(H)74 - 106 mg/dLTBHBLOOD UREA UHHJDKDT09.0(H)7.0 - 18.0 mg/dLTBHCREATININE1.37(H)0.55 - 1.02 mg/dLTBHTBH EGFR-AF XOTXKIWH99(L)>=60 mL/min/1.73m 2TBHTBH EGFR-NON AF CBREAYDJ78(L)>=60 mL/min/1.73m 2TBHBUN CREATININE RATIO24.2LUVTGNLGVN92.18.5 - 10.1 mg/dLTBHBILIRUBIN TOTAL0.40.2 - 1.0 mg/dLTBHASPARTATE AMINO QVMWBIQZRQU1565 - 37 U/LTBHALANINE TRSBAQXMEEMJKDBL8676 - 59 U/LTBHALKALINE HVRTWPNNTNO41771 - 116 U/LTBHTOTAL PROTEIN8.06.4 - 8.2 g/dLTBHALBUMIN LEVEL3.3(L)3.4 - 5.0 g/dLTBHGLOBULIN4.7g/dL TBHALBUMIN GLOBULIN RATIO0.7TBHSpecimen (Source)Anatomical Location / LateralityCollection Method / VolumeCollection TimeReceived Time10/19/2024 8:25 AM EDT10/19/2024 8:26 AM EDT Narrative ARTISISYNC - 10/19/2024 12:11 PM EDT Authorizing ProviderResult TypeResult StatusKigarry Baum NPCLINISYNCFinal Result Performing OrganizationAddressCity/State/ZIP CodePhone Number [facility] * (ABNORMAL) ALL CBC WITH AUTO DIFF (10/19/2024 8:25 AM EDT)ComponentValueRef RangeTest MethodAnalysis TimePerformed AtPathologist SignatureTBH WBC9.44.0 - 11.0 10 3/uLTBHTBH RBC4.244.20 - 5.40 10 6/uLTBHTBH HGB11.9(L)12.0 - 16.0 g/dL TBHTBH HCT38.936.0 - 48.0 %TBHTBH MCV91.781.0 - 99.0 fLTBHTBH MCH28.126.7 - 34.0 pgTBHTBH MCHC30.629.9 - 35.2 g/dLTBHTBH RDW14.511.0 - 15.0 %TBHTBH CGU825 150 - 450 10 3/uLTBHTBH MPV9.59.5 - 13.5 fLTBHNEUTROPHILS PERCENT AUTO71.543.0 - 75.0 %TBHLYMPHOCYTES PERCENT AUTO17.6(L)20.5 - 60.0 %TBHMONOCYTES PERCENT AUTO7.21.7 - 12.0 %TBHTBH EO %2.70.9 - 7.0 %TBHBASOPHILS PERCENT AUTO0.50.2 - 2.0 %TBHIMMATURE GRANULOCYTES PCT AUTO0.50.0 - 0.5 %TBHNEUTROPHILS ABSOLUTE AUTO6.7(H)1.4 - 6.5 10 3/uLTBHLYMPHOCYTES ABSOLUTE AUTO1.71.2 - 3.8 10 3/uLTBH MONOCYTES ABSOLUTE AUTO0.70.3 - 0.8 10 3/uLTBHTBH EO #0.30.0 - 0.7 10 3/uLTBH BASOPHILS ABSOLUTE AUTO0.10.0 - 0.1 10 3/uLTBHIMMATURE GRANULOCYTES ABS AUTO 0.05(H)0.00 - 0.03 10 3/uLTBHSpecimen (Source)Anatomical Location / Laterality Collection Method / VolumeCollection TimeReceived Time10/19/2024 8:25 AM EDT 10/19/2024 8:26 AM EDT Narrative CLINISYNC - 10/19/2024 11:06 AM EDT Authorizing ProviderResult TypeResult StatusJazmyn Baum NPCLINISYNCFinal Result Performing OrganizationAddressCity/State/ZIP CodePhone Number [facility] * URINE CULTURE - [facility] (09/26/2024 1:30 PM EDT)ComponentValueRef RangeTest MethodAnalysis TimePerformed AtPathologist SignatureURINE CULTURE - [facility] ??Urine Culture - [facility] 30,000 colonies/ml mixed TBHURINE CULTURE - FRMCbacterial skin contaminantsTBHURINE CULTURE - [facility]2 Days TBHURINE CULTURE - FRMCTBHURINE CULTURE - FRMCTesting performed at CentervilleTBHURINE CULTURE - [id number] [place] [address] TBHSpecimen (Source)Anatomical Location / LateralityCollection Method / Volume Collection TimeReceived Time09/26/2024 1:30 PM EDT09/26/2024 2:37 PM EDT Narrative CLINISYNC - 09/29/2024 3:15 PM EDT [facility] DR[facility] OFF Authorizing ProviderResult TypeResult StatusOle Yang [facility] BLOOD ORDERABLESFinal ResultPerforming OrganizationAddressCity/State/ZIP CodePhone Number [facility] * (ABNORMAL) ALL URINALYSIS (09/26/2024 1:30 PM EDT)ComponentValueRef RangeTest MethodAnalysis TimePerformed AtPathologist SignatureCOLOR URINELT. YELLOW YELLOWTBHCLARITY URINECLEARCLEARTBHSPECIFIC GRAVITY URINE<=1.005(A)1.005 - 1.025TBHPH URINE7.05.0 - 9.0TBHPROTEIN URINENEGATIVENEG/TRACE mg/dLTBHGLUCOSE URINE UANEGATIVENEGATIVE mg/dLTBHBILIRUBIN URINENEGATIVENEGATIVETBHKETONES URINENEGATIVENEGATIVE mg/dLTBHBLOOD URINENEGATIVENEGATIVETBHNITRITE URINE NEGATIVENEGATIVETBHUROBILINOGEN URINE0.20.2 - 1.0 EU/dLTBHLEUKOCYTE ESTERASE URINENEGATIVENEGATIVETBHSpecimen (Source)Anatomical Location / Laterality Collection Method / VolumeCollection TimeReceived Time09/26/2024 1:30 PM EDT 09/26/2024 2:37 PM EDT Narrative CLINISYNC - 09/26/2024 3:03 PM EDT Authorizing ProviderResult TypeResult StatusDakylie Yang MDCLINISYNCFinal ResultPerforming OrganizationAddressCity/State/ZIP CodePhone Number CLINISYNC [facility] * Urine culture (09/26/2024 1:30 PM EDT)ComponentValueRef RangeTest Method Analysis TimePerformed AtPathologist SignatureFRMC NOTE?30,000 colonies/ml mixed ?bacterial skin contaminants ?2 Days 09/29/2024 10:37 AM [facility] CtrSpecimen (Source)Anatomical Location / LateralityCollection Method / VolumeCollection TimeReceived TimeUrine Urine specimen obtained by clean catch procedure / [place]609/26/2024 1:30 PM EDT 09/27/2024 1:30 PM EDTComment:Not Otherwise Specified Narrative Authorizing ProviderResult TypeResult StatusOle Yang MDLAB MICROBIOLOGY - GENERAL ORDERABLESFinal ResultPerforming OrganizationAddJames E. Van [facility]/State/ZIP Code Phone Number [facility] [address] [place] [address], [facility] [address] [place] [address] from Last 3 Months Insurance Advance Directives TypeDate RecordedPatient RepresentativeExplanationPower of Attorney02/25/2024 12:18 PMHealthcare Power of [employer] Senior [employer] Care Teams Team MemberRelationshipSpecialtyStart DateEnd Ole Yang MD [address] [address] PCP - ACO [facility]07/10/22 Ole Yang MD [address] [facility] [address] [place] [address] PCP - GeneralInternal Medicine07/28/22 Edna Alcantara LPN [address] [facility] [address] [place] [address] 05/06/24
--- OUTSIDE RECORDS SUMMARY | 2024-12-16 13:46 | XMS_ITS | Encounter Summary ---
Author Organization [facility] Address [address] [place] [address] Care Team Providers Care Boxer Operator Name Role Phone Ole Yang MD Unavailable [phone] Ole Yang MD Primary Care Provider Edna Alcantara LPN Unavailable Encounter Details DateTypeDepartmentCare Team (Latest Contact Info)Wnfbycziukh58/22/2025Telephone [facility] [place] [facility] [address] [facility] [address] [place] [phone] Ole Yang MD [address] [facility] 110 [place] [address] Social History Tobacco UseTypesPacks/DayYears UsedDateSmoking Tobacco: NeverSmokeless Tobacco: NeverAlcohol UseStandard Drinks/WeekCommentsNever0 (1 standard drink = 0.6 oz pure alcohol)B1300 Health LiteracyAnswerDate RecordedHow often do you need to have someone help you when you read instructions, pamphlets, or other written material from your doctor or pharmacy?Vpvxadqrt23/16/2025Humiliation, Afraid, Rape, and Kick questionnaireAnswerDate RecordedWithin the [...] relatives?Twice a week06/01/2024How often do you attend temple or anabaptist services?Never06/01/2024Do you belong to any clubs or organizations such as temple groups, unions, fraternal or athletic groups, or school groups?No06/01/2024How often do you attend meetings of the clubs or organizations you belong to?Never06/01/2024re you , , , , never , or living with a partner?Cbrksdg4806/01/2024 AUDIT-CAnswerDate RecordedQ1: How often do you have [...] very hard 06/01/2024PHQ-2AnswerDate RecordedPatient Health Questionnaire-2 Score0 11/08/2024[facility] [place] [facility] Occup[facility] - Occupational Stress QuestionnaireAnswerDate [...] living in a group home (including now)? No06/01/2024CommentsUnknownSex and Gender InformationValueDate Recorded Sex Assigned at BirthNot on fileLegal EnlMoepml01/15/2023 7:05 PM EDTGender IdentityNot on fileSexual OrientationNot on filedocumented as of this encounter Miscellaneous Notes * Telephone Encounter - Debora Sanchez MA - 12/07/2024 1:04 PM EDT Mallory, my name is Mariela, I am calling from a [place]. Caring in regards to Lluvia Tidwell. Her date ofbirth is a[birth year] . Um, we just wanted to let you know that we did discharge her from nursing services yesterday. If you have any questions, you can give me a call back. It is [phone], thank you. documented in this encounter Plan of Treatment DateTypeDepartmentCare Team (Latest Contact Info)Ehapelaijmm31/13/2025 10:00 AM ESTProcedure Visit [facility] [address] [place] [address] Kenneth Clifton, DPM [address] [facility] [address] [place] [address] 03/22/2025 10:00 AM ESTOffice Visit [facility] [place] [facility] [address] [place] [address] Ole Yang MD [address] [place] [address] 05/31/2025 10:30 AM EDTOffice Visit [facility] [place] [facility] [address] [place] [phone] Teri Jo MD [address] [place] [id number] documented as of this encounter Visit Diagnoses Not on filedocumented in this encounter Additional Health Concerns AssessmentNoted TimePHQ-9 Depression Total Score: 13006/02/2024 9:00 AM EDT documented as of this encounter Care Teams Team MemberRelationshipSpecialtyStart DateEnd Date Ole Yang MD [address] [place] [address] PCP - ACO [place]07/10/22 Ole Yang MD [address] [place] [address] PCP - GeneralInternal Medicine07/28/22 Edna Alcantara LPN [address] [place] [address] 05/06/24documented as of this encounter
--- OUTSIDE RECORDS SUMMARY | 2024-12-16 13:46 | XMS_ITS | Encounter Summary ---
Author Organization [facility] Address [address] [place] [address] Care Team Providers Care Fire Truck Driver Name Role Phone Ole Yang MD Unavailable [phone] Ole Yang MD Primary Care Provider [phone] Edna Alcantara LPN Unavailable Encounter Details DateTypeDepartmentCare Team (Latest Contact Info)Zmqtpnmeyya73/22/2025bstract [facility] [place] [facility] [address] [facility] 110 [place] [phone] Ole Yang MD [address] [facility] 110 [place] [address] Social History Tobacco UseTypesPacks/DayYears UsedDateSmoking Tobacco: NeverSmokeless Tobacco: NeverAlcohol UseStandard Drinks/WeekCommentsNever0 (1 standard drink = 0.6 oz pure alcohol)B1300 Health LiteracyAnswerDate RecordedHow often do you need to have someone help you when you read instructions, pamphlets, or other written material from your doctor or pharmacy?Zkaqfawmx13/16/2025Humiliation, Afraid, Rape, and Kick questionnaireAnswerDate RecordedWithin the [...] relatives?Twice a week06/01/2024How often do you attend advent or jain services?Never06/01/2024Do you belong to any clubs or organizations such as advent groups, unions, fraternal or athletic groups, or school groups?No06/01/2024How often do you attend meetings of the clubs or organizations you belong to?Never06/01/2024re you , , , , never , or living with a partner?Zggzkht8106/01/2024 AUDIT-CAnswerDate RecordedQ1: How often do you have [...] very hard 06/01/2024PHQ-2AnswerDate RecordedPatient Health Questionnaire-2 Score0 11/08/2024[facility] [place] of Occupational Health - Occupational Stress QuestionnaireAnswerDate [...] were you homeless or living in a care home (including now)? No06/01/2024CommentsUnknownSex and Gender InformationValueDate Recorded Sex Assigned at BirthNot on fileLegal NutSskzlv80/15/2023 7:05 PM EDTGender IdentityNot on fileSexual OrientationNot on filedocumented as of this encounter Plan of Treatment DateTypeDepartmentCare Team (Latest Contact Info)Ixdlsucfkhv55/13/2025 10:00 AM ESTProcedure Visit [facility] [address] [place] [address] Kenneth Clifton, DAREN [address] [facility] [address] [place] [address] 03/22/2025 10:00 AM ESTOffice Visit [facility] [place] [facility] [address] [place] [address] Ole Yang MD [address] [place] [address] 05/31/2025 10:30 AM EDTOffice Visit [facility] [place] [facility] [address] [place] [address] Teri Jo MD [address] [place] [address] documented as of this encounter Visit Diagnoses Not on filedocumented in this encounter Additional Health Concerns AssessmentNoted TimePHQ-9 Depression Total Score: 13006/02/2024 9:00 AM EDT documented as of this encounter Care Teams Team MemberRelationshipSpecialtyStart DateEnd Date Ole Yang MD [address] [place] [address] PCP - ACO [place]07/10/22 Ole Yang MD [address] [place] [address] PCP - GeneralInternal Medicine07/28/22 Edna Alcantara LPN [address] [place] [address] 05/06/24documented as of this encounter
--- OUTSIDE RECORDS SUMMARY | 2024-12-16 13:46 | XMS_ITS | Encounter Summary ---
Author Organization [facility] Address [address] [place] [address] Care Team Providers Care Fiscal Economist Name Role Phone lOe Yang MD Unavailable [phone] Ole Yang MD Primary Care Provider [phone] Edna Alcantara LPN Unavailable Encounter Details DateTypeDepartmentCare Team (Latest Contact Info)Bqrzsthdzqj40/23/2025bstract [facility] [place] [facility] [address] [facility] 110 [place] [phone] Ole Yang MD [address] [facility] 110 [place] [address] Social History Tobacco UseTypesPacks/DayYears UsedDateSmoking Tobacco: NeverSmokeless Tobacco: NeverAlcohol UseStandard Drinks/WeekCommentsNever0 (1 standard drink = 0.6 oz pure alcohol)B1300 Health LiteracyAnswerDate RecordedHow often do you need to have someone help you when you read instructions, pamphlets, or other written material from your doctor or pharmacy?Xavwdcjsi87/16/2025Humiliation, Afraid, Rape, and Kick questionnaireAnswerDate RecordedWithin the [...] relatives?Twice a week06/01/2024How often do you attend pentecostal or latter-day services?Never06/01/2024Do you belong to any clubs or organizations such as pentecostal groups, unions, fraternal or athletic groups, or school groups?No06/01/2024How often do you attend meetings of the clubs or organizations you belong to?Never06/01/2024re you , , , , never , or living with a partner?Esbbllz1006/01/2024 AUDIT-CAnswerDate RecordedQ1: How often do you have [...] very hard 06/01/2024PHQ-2AnswerDate RecordedPatient Health Questionnaire-2 Score0 11/08/2024[facility] [place] of Occupational Health - Occupational Stress QuestionnaireAnswerDate [...] were you homeless or living in a skilled nursing (including now)? No06/01/2024CommentsUnknownSex and Gender InformationValueDate Recorded Sex Assigned at BirthNot on fileLegal EreAribft78/15/2023 7:05 PM EDTGender IdentityNot on fileSexual OrientationNot on filedocumented as of this encounter Plan of Treatment DateTypeDepartmentCare Team (Latest Contact Info)Opfhsrkudxj64/13/2025 10:00 AM ESTProcedure Visit [facility] [address] [place] [address] Kenneth Clifton, DAREN [address] [facility] 5 [place] [address] 03/22/2025 10:00 AM ESTOffice Visit [facility] [place] [facility] [address] [place] [address] Ole Yang MD [address] [place] [address] 05/31/2025 10:30 AM EDTOffice Visit [facility] [place] [facility] [address] [place] [address] Teri [place] MD [address] [place] [address] documented as of this encounter Visit Diagnoses Not on filedocumented in this encounter Additional Health Concerns AssessmentNoted TimePHQ-9 Depression Total Score: 13006/02/2024 9:00 AM EDT documented as of this encounter Care Teams Team MemberRelationshipSpecialtyStart DateEnd Date Ole Yang MD [address] [place] [address] PCP - ACO [place]07/10/22 Ole Yang MD [address] [place] [address] PCP - GeneralInternal Medicine07/28/22 Edna Alcantara LPN [address] [place] [address] 05/06/24documented as of this encounter
--- OUTSIDE RECORDS SUMMARY | 2024-12-16 13:46 | XMS_ITS | Encounter Summary ---
Author Organization [facility] Address [address] [facility] [place] [address] Care Team Providers Care Impregnator Helper Name Role Phone Ole Yang MD Unavailable [phone] Ole Yang MD Primary Care Provider [phone] ThursdayBea LPN Unavailable [phone] Debora Saenz RN Unavailable [phone] Edna Alcantara CYCLE SPECIALIST Unavailable Encounter Details DateTypeDepartmentCare Team (Latest Contact Info)Xnbfwwaptxv40/21/2024Clinisync Result Encounter [facility] External Department Unsolicited Provider, Generic External Data Social History Tobacco UseTypesPacks/DayYears UsedDateSmoking Tobacco: NeverSmokeless Tobacco: NeverAlcohol UseStandard Drinks/WeekCommentsNever0 (1 standard drink = 0.6 oz pure alcohol)B1300 Health LiteracyAnswerDate RecordedHow often do you need to have someone help you when you read instructions, pamphlets, or other written material from your doctor or pharmacy?Gwrglfbxf60/16/2025Humiliation, Afraid, Rape, and Kick questionnaireAnswerDate RecordedWithin the [...] relatives?Twice a week06/01/2024How often do you attend islam or adventism services?Never06/01/2024Do you belong to any clubs or organizations such as islam groups, unions, fraternal or athletic groups, or school groups?No06/01/2024How often do you attend meetings of the clubs or organizations you belong to?Never06/01/2024re you , , , , never , or living with a partner?Dtprgeo4506/01/2024 AUDIT-CAnswerDate RecordedQ1: How often do you have [...] 06/01/2024PHQ-2AnswerDate RecordedPatient Health Questionnaire-2 Score0 11/08/2024[facility] [place] [facility] - Occupational Stress QuestionnaireAnswerDate [...] were you homeless or living in a [place] (including now)? No06/01/2024CommentsUnknownSex and Gender InformationValueDate Recorded Sex Assigned at BirthNot on fileLegal ZvsXmvvgj35/15/2023 7:05 PM EDTGender IdentityNot on fileSexual OrientationNot on filedocumented as of this encounter Functional Status * AUDIT-C ScoreAnswerDate of JkdzyzqlvrMoamdj929/16/2025 10:00 AM Albaro oGss * Q1: How often do you have a drink containing alcohol?AnswerDate of Assessment ZuppubGgkqr53/16/2025 10:00 AM Albaro Goss * Q2: How many drinks containing alcohol do you have on a typical day when you are drinking?AnswerDate of AssessmentAuthorPatient does not drink06/01/2024 10:00 AM Albaro Goss * Q3: How often do you have six or more drinks on one occasion?AnswerDate of IfifqgvzvpClvlzlZtilr17/16/2025 10:00 AM Albaro Goss * Over the past 2 weeks, how often have you been bothered by any of the following problems?QuestionAnswerDate of AssessmentAuthorLittle interest or pleasure in doing thingsNot at all11/08/2024 2:57 PM Aidee Raman LPN Feeling down, depressed, or hopelessNot at all11/08/2024 2:57 PM Aidee Raman LPNPatient Health Questionnaire-2 Yaogw980 2:57 PM Aidee Raman LPN * QuestionAnswerDate of AssessmentAuthorTrouble falling or staying asleep, or sleeping too muchNearly every day06/02/2024 9:00 AM Aidee Raman LPN Feeling tired or having little energyNearly every day06/02/2024 9:00 AM EDT Aidee Garcia LPNPoor appetite or overeatingNot at all06/02/2024 9:00 AM ETHANT Aidee Garcia LPNFeeling bad about yourself - or that you are a failure or have let yourself or your family downNearly every day06/02/2024 9:00 AM Aidee Whittaker LPNTrouble concentrating on things, such as reading the newspaper or watching televisionNot at all06/02/2024 9:00 AM Aidee Rmaan LPNMoving or speaking so slowly that other people could have noticed? Or the opposite - being so fidgety or restless that you have been moving around a lot more than usual.Not at all06/02/2024 9:00 AM Aidee Raman LPNThoughts that you would be better off or hurting yourself in some wayNot at all 06/02/2024 9:00 AM Aidee Raman LPNPatient Health Questionnaire-9 Score13 06/02/2024 9:00 AM Aidee Raman LPN * If you checked off any problems on this questionnaire so far,QuestionAnswer Date of AssessmentAuthorHow difficult have these problems made it for you to do your work, take care of things at home, or get along with other people? Somewhat /28/2025 10:40 AM GREGORIO ORELLANA documented as of this encounter Plan of Treatment DateTypeDepartmentCare Team (Latest Contact Info)Bfoihpilwdk81/13/2025 10:00 AM ESTProcedure Visit [facility] [address] [place] [phone] Kenneth Clifton, DAREN [address] [facility] [address] [place] [address] 03/22/2025 10:00 AM ESTOffice Visit [facility] [address] [place] [address] Ole Yang MD [address] [place] [address] 05/31/2025 10:30 AM EDTOffice Visit [facility] [place] [facility] [address] [place] [address] Teri Jo MD [address] [place] [address] documented as of this encounter Procedures Procedure NamePriorityDate/TimeAssociated DiagnosisCommentsCA ECHO DOPPLER EZFDARLB55/21/2024 5:59 PM EDT documented in this encounter Results * CA ECHO DOPPLER COMPLETE (08/07/2023 5:59 PM EDT)Anatomical RegionLaterality ModalityOtherSpecimen (Source)Anatomical Location / LateralityCollection Method / VolumeCollection TimeReceived Time08/07/2023 5:59 PM EDT Narrative 08/07/2023 6:00 PM EDT [facility] ?[address] ? [place] [address] ? Cardiology Report ? Signed ? Patient: TIFFANIE,LLUVIA L ? MR#: [id number] ?? : 1940 ?Acct:[id number] ?? Age/Sex: 82 / F ?ADM Date: //24 ?? Loc: CARD ? Attending Dr: LARRY ANTON ? Ordering Physician: DESEAN,LARRY ?? Date of Service: 08/05/23 ?? Procedure(s): CA echo doppler complete ?? Accession Number(s): [id number] ? cc: OLE YANG ; LARRY ANTON ? Patient Name: ? LLUVIA MORENO ? MR#: [id number] ? : 1940 ? Exam Date: 08/05/2023 ?? Ordering Doctor: LARRY ANTON ? ECHOCARDIOGRAM REPORT ? PROCEDURE: ? CA ECHO DOPPLER COMPLETE ? INDICATIONS: ? Chronic systolic heart failure, hypertension, AICD, COPD ? COMPARISON: ? None. ? DESCRIPTION: ? COMPLETE ECHOCARDIOGRAM Real-time transthoracic ?? echocardiography with 2D, M-mode, spectral and color flow Doppler performed. ? QUALITY: ? Technical quality was good. ??67 , 170#, BP 116/70 ?? LEFT VENTRICLE: ? Normal chamber size. Proximal septal hypertrophy (sigmoid ?? septum). ??Normal systolic function. ?? LV EF: Normal left ventricular ejection fraction, (>55%). DIASTOLIC: ? ATRIAL SEPTUM: ? Visually appears intact. ?? LEFT ATRIUM: ? Severe dilatation. ?? RIGHT ATRIUM: ? Severe dilatation. ?? RIGHT VENTRICLE: ? Mild dilatation. ?? Normal systolic function. ??Pacer wire ?? present. ?? TRICUSPID VALVE: ? Normal mobility and thickness. No stenosis with mild ?? regurgitation. No evidence of pulmonary hypertension. RVSP 27 mmHg ? MITRAL VALVE: ? Normal mobility and thickness. ?? No evidence of mitral valve ?? stenosis. ??There is no mitral annular calcification. Mild mitral ?? regurgitation. ? AORTIC VALVE: ? Normal trileaflet appearance. No visible sclerosis. ??Normal ?? leaflet mobility. ??No evidence of aortic valve stenosis. No aortic ?? regurgitation. ? AORTIC ROOT: ? Normal diameter and appearance. Ascending aorta is normal in ?? size. ? PULMONIC VALVE: ? Normal thickness and mobility. No stenosis. Mild ?? regurgitation. ? PERICARDIUM: ? No evidence of pericardial effusion. ? IVC: ? Collapses with inspirations. IVC is normal in size. ? PLEURA: ? CONCLUSION: ? 1. Normal left ventricular size and systolic function. ??LVEF is 55 to 60%. ?? 2. Mildly dilated right ventricle with normal systolic function. ?? 3. Severe biatrial dilatation. ?? 4. Mild mitral and tricuspid regurgitation. ?? 5. Normal right-sided pressures. ? Adult Echocardiography Procedure Report ?? Left Ventricle ?? LVEDD (3.7 - 5.6 cm): ? 3.98 cm ?? LVESD (2.2 - 4.0 cm): ? 2.91 cm ?? LVIVS thickness (0.6 - 1.2 cm): ? 1.52 cm ?? LVPW thickness (0.5 - 1.0 cm): ? 1.14 cm ?? e': ? 0.09 m/s ?? E - e': ? 10.64 ?? LVOT Max Gradient: ? 2.15 mm[Hg] ?? LVOT Area (cm2): ? 0.73 m/s ?? Peak Velocity (LVOT): ? 0.73 m/s ?? Mean Velocity (LVOT): ? 0.49 m/s ?? LVOT Diameter ? 2.13 cm ?? Left Atrium ?? LA Volume Index (2D A2C): ? 62.81 ml/m2 ?? Left Atrium Systolic Dimension: ? 5.08 cm ?? Mitral Valve ?? MV E to A Ratio: ? 4.58 ?? Mitral Valve A-Wave Peak Velocity: ? 0.22 m/s ?? Mitral Valve E-Wave Peak Velocity: ? 1.01 m/s ?? Right Ventricle ?? Aorta ?? AO Root Diam: ? 2.84 cm ?? Ascending Ao Diam: ? 2.98 cm ?? Aortic Valve ?? AoV Area (Peak Vicente): ? 2.55 cm2, 2.55 cm2 ?? AoV Area (VTI): ? 2.78 cm2, 2.78 cm2 ?? Peak Velocity(Antegrade Flow): ? 1.02 m/s ?? Peak Gradient(Antegrade Flow): ? 4.19 mm[Hg] ?? Mean Velocity(Antegrade Flow): ? 0.69 m/s ?? Mean Gradient(Antegrade Flow): ? 2.14 mm[Hg] ?? Velocity Time Integral: ? 21.43 cm ?? Tricuspid Valve ?? Peak Velocity (Regurgitant Flow): ? 2.46 m/s, 2.31 m/s ?? Pulmonic Valve ?? Peak Gradient: ? 2.77 mm[Hg], 3.51 mm[Hg] ?? Right Atrium ?? Right Atrium Systolic Pressure: ? 101.68 ml, 101.68 ml ? Dictated by: Ruddy Gibson M.D. on 08/07/2023 at 17:56 ? Approved by: Ruddy Gibson M.D. on 08/07/2023 at 17:59 ? Dictated By: ?RUDDY GIBSON ? Signed By: ?08/07/23 1800 ? DD/ 1759 ? TD/TT: ? Banquet Server: Procedure Note Radiology, Radiologist, - 08/07/2023 [place] [address] Cardiology Report Signed Patient: LLUVIA MORENO LMR#: [id number] : 1940cct:[id number] Age/Sex: 82 / FADM Date: 08/05/23 Loc: CARD Attending Dr: LARRY ANTON Ordering Physician: LARRY ANTON Date of Service: 08/05/23 Procedure(s): CA echo doppler complete Accession Number(s): [id number] cc: OLE YANG ; LARRY ANTON Patient Name: LLUVIA MORENO MR#: [id number] : 1940 Exam Date: 08/05/2023 Ordering Doctor: [...] 101.68 ml, 101.68 ml Dictated by: Ruddy Gibson M.D. on 08/07/2023 at 17:56 Approved by: Ruddy Gibson M.D. on 08/07/2023 at 17:59 Dictated By: RUDDY GIBSON Signed By:08/07/23 1800 DD/ 1759 TD/TT: Banquet Server: Authorizing ProviderResult TypeResult StatusGeneric External Data Provider CLINISYNC IMAGINGFinal Result documented in this encounter Visit Diagnoses Not on filedocumented in this encounter Additional Health Concerns AssessmentNoted TimePHQ-9 Depression Total Score: 1004 9:00 AM EDT documented as of this encounter Care Teams Team MemberRelationshipSpecialtyStart DateEnd Ole Yang MD [address] [facility] [address] [place] [address] PCP - ACO [facility]07/10/22 Ole Yang MD [address] [facility] [address] [place] [address] PCP - GeneralInternal Medicine07/28/22ThuKeonBea deleon LPN [address] [place] [address] Licensed Practical NurseFamily Medicine Debora Saenz, CHERI [address] [place] [address] Licensed Practical NurseFamily Medicine Edna Alcantara, JUAN [address] [facility] [address] [place] [address] 05/06/24documented as of this encounter
--- OUTSIDE RECORDS SUMMARY | 2024-12-16 13:46 | XMS_ITS | Encounter Summary ---
Author Organization [facility] Address [address] [place] [address] Care Team Providers Care Communications Strategist Name Role Phone Ole Yang MD Unavailable [phone] Ole Yang MD Primary Care Provider Edna Alcantara LPN Unavailable Encounter Details DateTypeDepartmentCare Team (Latest Contact Info)Acyddwejdvp99/27/2025bstract [facility] [address] [facility] [address] [place] [phone] Ole Yang MD [address] [facility] [address] [place] [address] Social History Tobacco UseTypesPacks/DayYears UsedDateSmoking Tobacco: NeverSmokeless Tobacco: NeverAlcohol UseStandard Drinks/WeekCommentsNever0 (1 standard drink = 0.6 oz pure alcohol)B1300 Health LiteracyAnswerDate RecordedHow often do you need to have someone help you when you read instructions, pamphlets, or other written material from your doctor or pharmacy?Lmgypcvsm39/16/2025Humiliation, Afraid, Rape, and Kick questionnaireAnswerDate RecordedWithin the [...] week06/01/2024How often do you attend islam or jainism services?Never06/01/2024Do you belong to any clubs or organizations such as islam groups, unions, fraternal or athletic groups, or school groups?No06/01/2024How often do you attend meetings of the clubs or organizations you belong to?Never06/01/2024re you , , , , never , or living with a partner?Buuadmc0206/01/2024 AUDIT-CAnswerDate RecordedQ1: How often do you have [...] very hard 06/01/2024PHQ-2AnswerDate RecordedPatient Health Questionnaire-2 Score0 11/08/2024[facility] [place] [facility] - Occupational Stress QuestionnaireAnswerDate [...] were you homeless or living in a [facility] (including now)? No06/01/2024CommentsUnknownSex and Gender InformationValueDate Recorded Sex Assigned at BirthNot on fileLegal CptVflkyk65/15/2023 7:05 PM EDTGender IdentityNot on fileSexual OrientationNot on filedocumented as of this encounter Plan of Treatment DateTypeDepartmentCare Team (Latest Contact Info)Copqzzjcqtq35/13/2025 10:00 AM ESTProcedure Visit [facility] [address] [place] [address] Kenneth Clifton, DAREN [address] [facility] 5 [place] [address] 03/22/2025 10:00 AM ESTOffice Visit [facility] [address] [place] [address] Ole Yang MD [address] [place] [address] 05/31/2025 10:30 AM EDTOffice Visit [facility] [place] [facility] [address] [place] [address] eTri Jo MD [address] [place] [address] documented as of this encounter Visit Diagnoses Not on filedocumented in this encounter Additional Health Concerns AssessmentNoted TimePHQ-9 Depression Total Score: 13006/02/2024 9:00 AM EDT documented as of this encounter Care Teams Team MemberRelationshipSpecialtyStart DateEnd Date Ole Yang MD [address] [place] [address] PCP - ACO [place]07/10/22 Ole Yang MD [address] [place] [address] PCP - GeneralInternal Medicine07/28/22 Edna Alcantara LPN [address] [place] [address] 05/06/24documented as of this encounter
--- OUTSIDE RECORDS SUMMARY | 2024-12-16 13:46 | XMS_ITS | Encounter Summary ---
Author Organization [facility] Address [address] [place] [address] Care Team Providers Care Design Specialist Name Role Phone Ole Yang MD Primary Care Provider [phone] Encounter Details DateTypeDepartmentCare Team (Latest Contact Info)Lnqdpkvujsc13/28/2025Orders Only [facility] [address] [place] [address] Ann Marie Del Valle MA Essential hypertension (Primary Dx); Coronary artery disease involving [place] coronary artery of [place] heart without angina pectoris Social History Tobacco UseTypesPacks/DayYears UsedDateSmoking Tobacco: NeverSmokeless Tobacco: NeverAlcohol UseStandard Drinks/WeekCommentsNot Currently0 (1 standard drink = 0.6 oz pure alcohol)UT Safety & EnvironmentAnswerDate RecordedFear of Current or Ex-PartnerNot on file04/09/2023Emotionally AbusedNot on file04/09/2023hysically AbusedNot on file04/09/2023Sexually AbusedNot on file04/09/2023hysically or Sexually AbusedNot on file04/09/2023CommentsUnknownSex and Gender InformationValueDate RecordedSex Assigned at AcuuxPwtqiy45/23/2025 11:40 AM EDT Legal CarSgjmip66/29/2022 11:46 PM EDTGender EkcrqlewUsozld90/23/2025 11:40 AM EDTSexual OrientationChoose not to /14/2025 9:44 PM EDTdocumented as of this encounter Plan of Treatment DateTypeDepartmentCare Team (Latest Contact Info)Cvorvddfpfk65/29/2025 2:40 PM ESTOffice Visit [facility] [address] [place] [address] Eulogio Wahl, TWISTER FRAME TENDER [address] [place] [address] documented as of this encounter Visit Diagnoses Diagnosis Essential hypertension- Primary Unspecified essential hypertension Coronary artery disease involving [place] coronary artery of [place] heart without angina pectoris documented in this encounter Care Teams Team MemberRelationshipSpecialtyStart DateEnd Date Ole Yang MD [address] [facility] 110 [place] [address] PCP - General10/07/21documented as of this encounter
--- OUTSIDE RECORDS SUMMARY | 2024-12-16 13:46 | XMS_ITS | Encounter Summary ---
Author Organization [facility] Address [address] [place] [address] Care Team Providers Care Padder Cushion Name Role Phone Ole Yang MD Primary Care Provider [phone] Reason for Visit * ReasonOnset DateCommentsMed Czzsgj4112/13/2024 Encounter Details DateTypeDepartmentCare Team (Latest Contact Info)Juathlwbrxm40/28/2025Refill [facility] at [facility] [address] [place] [phone] Ann Marie Del Valle MA Social History Tobacco UseTypesPacks/DayYears UsedDateSmoking Tobacco: NeverSmokeless Tobacco: NeverAlcohol UseStandard Drinks/WeekCommentsNot Currently0 (1 standard drink = 0.6 oz pure alcohol)UT Safety & EnvironmentAnswerDate RecordedFear of Current or Ex-PartnerNot on file04/09/2023Emotionally AbusedNot on file04/09/2023hysically AbusedNot on file04/09/2023Sexually AbusedNot on file04/09/2023hysically or Sexually AbusedNot on file04/09/2023CommentsUnknownSex and Gender InformationValueDate RecordedSex Assigned at SmgzuXkxdye60/23/2025 11:40 AM EDT Legal OgkAkrfdt56/29/2022 11:46 PM EDTGender LrrsuumdLvyrjq53/23/2025 11:40 AM EDTSexual OrientationChoose not to dvraahku44/14/2025 9:44 PM EDTdocumented as of this encounter Plan of Treatment DateTypeDepartmentCare Team (Latest Contact Info)Sjobrtzthug74/29/2025 2:40 PM ESTOffice Visit [facility] [address] [place] [address] Eulogio Wahl, TRANSCRIBING [employer]PER[employer] SUPERVISOR [address] [place] [address] documented as of this encounter Visit Diagnoses Not on filedocumented in this encounter Care Teams Team MemberRelationshipSpecialtyStart DateEnd Date Ole Yang MD [address] [facility] [address] [place] [address] PCP - General10/07/21documented as of this encounter
--- OUTSIDE RECORDS SUMMARY | 2024-12-16 13:46 | XMS_ITS | Clinical Summary ---
Author Organization [facility] Address [address] [place] [address] Care Team Providers Care Treasury Consultant Name Role Phone Ole Yang MD Primary Care Provider [phone] Allergies Active AllergyReactionsCriticalityNoted DateCommentsLorazepamHallucinationsHigh 11/08/20243194KfxvafpdcdtwbpHsgbrAssobe26/23/2025 Hyperkalemia Medications MedicationSigDispense QuantityRefillsLast FilledStart DateEnd DateStatus apixaban (Eliquis) 5 mg tablet Take 1 tablet twice a day by oral route for 90 days.Active aspirin 81 mg EC tablet Take 1 tablet every day by oral route.Active atorvastatin (Lipitor) 80 mg tablet Take 1 tablet by mouth at bedtime.Active bumetanide (Bumex) 1 mg tablet if needed.Active cholecalciferol (Vitamin D-3) 50 MCG (1999 UT) tablet Take 1 tablet every day by oral route.Active LORazepam (Ativan) 0.5 mg tablet TAKE ONE TABLET BY MOUTH EVERY 6 HOURS NEEDED FOR ANXIETY ATTACKSActive methIMAzole (Tapazole) 10 mg tablet Take 5 mg by mouth 4 (four) times a week.Active metoprolol succinate XL (Toprol-XL) 50 mg 24 hr tablet Take 1 tablet by mouth in the morning.Active PARoxetine (Paxil) 20 mg tablet 1 tablet every day by oral route for 90 days.Active spironolactone (Aldactone) 25 mg tablet Indications:Benign hypertensive heart disease with heart failure (CMS/HCC)Take 1 tablet (25 mg) by mouth once daily as directed. 90 tablet 310/02/2023Active Additional Information Patient not taking.Reported on 12/12/2024 rsucwvqngm-cffhjdtk-wbztuyiyvw (Breztri Aerosphere) 160-9-4.8 mcg/actuation HFA aerosol inhaler Inhale.Active lisinopril 2.5 mg tablet Take 1 tablet (2.5 mg) by mouth in the morning. 30 tablet 11103/27/2023ctive Additional Information Patient not taking.Reported on 12/12/2024 albuterol 90 mcg/actuation inhaler inhale 2 puffs every 4 (four) hours if needed for nunzhgdb41/10/2024ctive Rexulti 0.5 mg tablet Take 0.25 mg by mouth in the morning.Active melatonin 5 mg tablet Take 5 mg by mouth at bedtime.5Active amLODIPine (Norvasc) 5 mg tablet Indications:Essential hypertension,Coronary artery disease involving wiyot coronary artery of wiyot heart without angina pectorisTake 1 tablet (5 mg) by mouth once daily as directed. 90 tablet 6Active amLODIPine (Norvasc) 2.5 mg tablet Take 2.5 mg by mouth in the morning.Discontinued Active Problems ProblemNoted DateDiagnosed DateAcute suzdwhunpvi30/24/2025ute hyperkalemia 12/09/2024KI (acute kidney injury)12/09/2024nxiety and bxbesmmidx07/24/2025 Concentration esbqgpz6112/09/2024Family history of bxkhomrf47/24/2025Homicidal ppgdpkazv19/24/2025Mild neurocognitive pehofowv82/24/2025Other insomnia 12/09/2024Suicidal tuldywmn37/24/2025Word finding kxfcoqioal74/24/2025Essential erlrhshvvpks76/26/2025Pure zzatuoefkaybnbaibjef74/26/2025Trouble in sleeping 07/07/2024hronic kidney disease, stage 3b02/25/2024Supplemental oxygen offafjlre29/09/6783Lbhsbye76/10/2024yspnea on aatocxyj94/21/2024ardiomyopathy 4Chronic a-fib08/07/2023Memory irlgkoi6905/27/2023urrent use of half-way gabhqbtklhmeyak13/27/2023ge-related osteoporosis without current pathological idaljdgh80hronic systolic dysfunction of left jtndndawf18iplopiaFrequent falls Impaired fasting wixvhhn34Mild episode of recurrent major depressive hlzsvpro19Overweight (BMI 25.0-29.9)Rotator cuff syndrome of right /12/2023 12/30/2022hronic combined systolic and diastolic heart zvsbdba4407/28/2022 Systolic heart phcjmym1407/24/2021 Assessment & Plan (07/08/2023 11:11 AM EDT): [facility] III, currently appears euvolemic and weight is [...] and MV regurg; also lexiscan to assess cardiacperfusion and for any perfusion defect that would correlate with noted in stent stenosis on last heart cath to determine if cardiac cath is needed. RTC after testing Status post biventricular cardiac pacemaker dipjytzrc85/13/2021levated liver jtdwqiq4508/24/2020anlobular /01/2021 Assessment & Plan (07/08/2023 11:16 AM EDT): If cardiac studies are without any acute concerns she may need to F/U with pulmonary for evaluationof CLAIRE History of stroke without residual hnezhikf44/08/9252Mokdqcixnoftlyd14/08/2019 Chronic obstructive pulmonary jkcpsbp1406/11/2017Inflammation of joint of right shoulder kcdfip6209/22/2016Mild intermittent bygfsk0509/12/2016Pulmonary function studies yewmofuh12/28/2017Tear of right rotator cuff09/12/2016Internal derangement of right ucfbllqt47/20/2017Primary nzsihkgbrjrmno31/20/2017Primary ovarian ojlezas7408/05/2016Non-rheumatic mitral vrmdqrofkgprx01/20/2017 Assessment & Plan (07/08/2023 11:12 AM EDT): Repeat echocardiogram to assess MR in light of worsening CLAIRE Atherosclerosis of coronary artery without angina dcpolvtv34 Assessment & Plan (07/08/2023 11:14 AM EDT): Lexiscan stress test to assess cardiac perfusion for any significant defect that would warrant a cardiac cath with possible PCI for concerning stenosis Continue GDMT- ASA, lipitor toprol Inguinal pain10/04/20153437Iduiqav76/08/2016Cerebrovascular wpgwfacx21/08/2016 Coronary artery disease involving wiyot coronary artery of wiyot heart without angina jxuzdvmr94/08/2016Hematoma of groin09/24/2015Benign hypertensive heart disease with heart qxrvlbs8109/24/2015 Assessment & Plan (07/08/2023 11:13 AM EDT): HTN is well controlled 130/84- she does admit at home b/p is lower 100-120/70-80 denied any lightheadedness/dizziness or syncope. Continue lisinopril, toprol and aldactone Persistent atrial ffnftuuyikcb54/08/2016 Assessment & Plan (07/08/2023 11:11 AM EDT): Remains on eliquis without any bleeding tendencies S/P AV node ablation and STONE PLANER-D is 98% Bi-V pacing per device interrogation Resolved Problems ProblemNoted DateDiagnosed DateResolved DateICD (implantable cardioverter- defibrillator) in place//10/2023 Assessment & Plan (07/08/2023 11:15 AM EDT): Device interrogations reviewed Device check q 6 months Mitral valve awqjqhtfjycxf89 Encounters DateTypeDepartmentCare RrioXnupnunbxyy63/29/2025Orders Only [address] [address] Ann Marie Del Valle MA Abnormal laboratory test (Primary Dx)12/13/2024Refill [address] [address] Ann Marie Del Valle MA 12/13/2024Orders Only [address] [place] [address] Ann Marie Del Valle MA Essential hypertension (Primary Dx); Coronary artery disease involving wiyot coronary artery of wiyot heart without angina vrvkjhvu16/27/2025 3:40 PM EDTOffice Visit [address] [place] [address] Eulogio Wahl CNP Acute on chronic heart failure with preserved ejection fraction (CMS/HCC) (Primary Dx); Dilated cardiomyopathy (CMS/HCC); Dyspnea on exertion; Atherosclerosis of wiyot coronary artery of wiyot heart without angina pectoris; Chronic a-fib (CMS/HCC); Status post biventricular cardiac pacemaker insertion; Chronic kidney disease, stage 3b (CMS/HCC); Hyperthyroidism; Benign hypertensive heart disease with heart failure (CMS/HCC); ICD (implantable cardioverter-defibrillator) in place; Bilateral lower extremity edema12/12/2024Telephone [address] [phone] Ann Marie Del Valle MA 11/22/2024 10:45 AM EDTAncillary Procedure [facility] [address] [place] [phone] Pre-operative cardiovascular examination, ICD in place11/22/2024Orders Only [facility] [address] [place] [phone] Keanu Islas MD 11/07/2024 10:15 AM EDTAncillary Procedure [facility] [address] [place] [address] Pre-operative cardiovascular examination, ICD in place11/05/2024Orders Only [facility] [address] [place] [address] Keanu Islas MD 09/21/2024 7:30 AM EDTAncillary Procedure [facility] [address] [facility] [place] [address] Pre-operative cardiovascular examination, ICD in place09/21/2024Orders Only [facility] [address] [place] [address] Keanu Islas MD 09/21/2024Telephone [facility] [address] [place] [place] [address] Ann Marie Del Valle MA 09/20/2024Telephone [facility] [address] [place] [place] [address] Pita Love MA from Last 3 Months Immunizations ImmunizationAdministration DatesNext DueInfluenza, High Dose Seasonal, Preservative Free01/17/2021,12/02/2017,12/11/2016Influenza, injectable, biqxrzxvlzjj40/21/2014Influenza, injectable, quadrivalent, preservative free 11/13/2014Influenza, seasonal, /24/2013Influenza, trivalent, sknsuvncow13/24/2020,11/25/2018Moderna 12 YR UP Vaccine BiValent Booster 02/03/2021,04/24/2020,1Pneumococcal Conjugate PCV 13006/25/2018 Pneumococcal Polysaccharide XSL188602/23/2019,08/17/2007 Family History Medical HistoryRelationNameCommentsCoronary artery diseaseBrotherHypertension BrotherKidney cancerBrotherColon cancerFatherRelationNameStatusCommentsBrother FatherDeceasedMotherDeceased Social History Tobacco UseTypesPacks/DayYears UsedDateSmoking Tobacco: NeverSmokeless Tobacco: Never Tobacco Cessation:Counseling Given: Not Answered Alcohol UseStandard Drinks/WeekCommentsNot Currently0 (1 standard drink = 0.6 oz pure alcohol)UT Safety & EnvironmentAnswerDate RecordedFear of Current or Ex-PartnerNot on file04/09/2023Emotionally AbusedNot on file04/09/2023hysically AbusedNot on file04/09/2023Sexually AbusedNot on file04/09/2023hysically or Sexually AbusedNot on file04/09/2023CommentsUnknownSex and Gender InformationValueDate RecordedSex Assigned at TraokZjewjf95/23/2025 11:40 AM EDT Legal RlxVbxxgn15/29/2022 11:46 PM EDTGender MyxgmlxbHpfbfy93/23/2025 11:40 AM EDTSexual OrientationChoose not to yylszcwq93/14/2025 9:44 PM EDT Last Filed Vital Signs Vital SignReadingTime TakenCommentsBlood Muwjcmut021/8410 3:30 PM EDT Ewxtz058712/12/2024 3:30 PM EDTTemperature--Respiratory Bsjn234907/08/2023 10:10 AM EDTOxygen Itsykgnxhk66%12/12/2024 3:30 PM EDTInhaled Oxygen Concentration-- Eqakha75.2 kg (179 lb)12/12/2024 3:30 PM YYDXemhvu134.2 cm (5' 7 )12/12/2024 3:30 PM EDTBody Mass Index28.041 3:30 PM EDT Plan of Treatment DateTypeDepartmentCare Team (Latest Contact Info)Cyjfzassxvu02/29/2025 2:40 PM ESTOffice Visit [facility] [address] [place] [address] Eulogio Wahl, [employer] [address] [place] [address] Health MaintenanceDue DateLast DoneCommentsMedicare Annual Wellness (AWV) 3Depression Mnvuemikp28/01/1955Adult Foxazxz5708/16/1964Fall Risk Ymzhnwajg60/01/2008COVID-19 Vaccine ( season)/, 01/01/2023, 12/10/2021, Additional history existsInfluenza Vaccine (#1) /11/2023, 11/26/2022, 12/10/2021, Additional history exists Pneumococcal Vaccine: 50+ NnfuaIigvjevmh30/08/2020, 06/25/2018, 08/17/2007Zoster AxoqpjpiIvbuealhq04/16/2023, 04/16/2022HIB VaccinesAged OutNo longer eligible based on patient's age to complete this topicHPV VaccinesAged OutNo longer eligible based on patient's age to complete this topicIPV VaccinesAged OutNo longer eligible based on patient's age to complete this topicMeningococcal B VaccineAged OutNo longer eligible based on patient's age to complete this topic Meningococcal VaccineAged OutNo longer eligible based on patient's age to complete this topicRotavirus VaccinesAged OutNo longer eligible based on patient's age to complete this topic Medical Devices ImplantedTypeAreaManufacturerDevice IdentifierShelf Expiration DateModel / Serial / [id number] Vigilant X4 Military Professional-D [id number] Implanted:08/21/2021 (Quantity not on file)STONE PLANER-D [id number] VIGILANT X4 STONE PLANER-D / [id number] / [id number] [place] 4-Front S [id number] Implanted:08/21/2021 (Quantity not on file)[id number] RELIANCE 4-FRONT S / [id number] / [id number] Acuity X4 Straight [id number] Implanted:08/21/2021 (Quantity not on file)[id number] ACUITY X4 STRAIGHT / [id number] / Procedures Procedure NamePriorityDate/TimeAssociated DiagnosisCommentsCARDIAC DEVICE CHECK CHECK - IBDCKMPwegpxl84/13/2025 10:02 AM EDT Pre-operative cardiovascular examination, ICD in place CARDIAC DEVICE CHECK - REMOTE ALERT - OGCSwegkhs30/07/2025 12:00 AM EDTCARDIAC DEVICE CHECK CHECK - FYGPECVfdbyhk80/24/2025 1:36 PM EDT Pre-operative cardiovascular examination, ICD in place CARDIAC DEVICE CHECK - REMOTE - WBVHxomaon11/20/2025 12:00 AM EDTCARDIAC DEVICE CHECK CHECK - LWLBSVBwzmbny88/14/2025 4:58 PM EDT Pre-operative cardiovascular examination, ICD in place CARDIAC DEVICE CHECK - REMOTE - ELIUrkramj46/06/2025 12:00 AM EDTfrom Last 3 Months Results * CARDIAC DEVICE CHECK - REMOTE ALERT - ICD (11/28/2024 10:02 AM EDT) Only the most recent of3 resultswithin the time period is included. Specimen (Source)Anatomical Location / LateralityCollection Method / Volume Collection TimeReceived Time Narrative Authorizing ProviderResult TypeResult StatusPaul Roshan MDCV IMPLANTABLE CARDIAC DEVICE PROCEDURESFinal ResultPerforming OrganizationAddressCity/State/ZIP Code Phone Number CPACS * Cardiac device check - Remote alert ICD (11/22/2024 12:00 AM EDT)Anatomical RegionLateralityModalityOtherSpecimen (Source)Anatomical Location / Laterality Collection Method / VolumeCollection TimeReceived Time11/22/2024 Narrative Authorizing ProviderResult TypeResult StatusPaul Roshan MDCV IMPLANTABLE CARDIAC DEVICE PROCEDURESFinal Result * Cardiac device check - Remote ICD (11/05/2024 12:00 AM EDT) Only the most recent of2 resultswithin the time period is included. Anatomical RegionLateralityModalityOtherSpecimen (Source)Anatomical Location / LateralityCollection Method / VolumeCollection TimeReceived Time11/05/2024 Narrative Authorizing ProviderResult TypeResult StatusPaul Roshan MDCV IMPLANTABLE CARDIAC DEVICE PROCEDURESFinal Result from Last [address] [place] [address] Care Teams Team MemberRelationshipSpecialtyStart DateEnd Date Ole Yang MD [address] [address] [facility]10/07/21
--- OUTSIDE RECORDS SUMMARY | 2024-12-16 13:46 | XMS_ITS | Encounter Summary ---
Author Organization [facility] Address [address] [place] [address] Care Team Providers Care Public Affairs Specialist Name Role Phone Ole Yang MD Unavailable [phone] Ole Yang MD Primary Care Provider Thursday, Bea COOLEYN Unavailable [phone] Debora Saenz RN Unavailable [phone] Edna Alcantara GAMING TABLE OPERATOR Unavailable Encounter Details DateTypeDepartmentCare Team (Latest Contact Info)Jbphpqxokcy23/01/2024linisync Result Encounter [facility] Unsolicited Ole Yang MD [address] [facility] [address] [place] [address] Social History Tobacco UseTypesPacks/DayYears UsedDateSmoking Tobacco: NeverSmokeless Tobacco: NeverAlcohol UseStandard Drinks/WeekCommentsNever0 (1 standard drink = 0.6 oz pure alcohol)B1300 Health LiteracyAnswerDate RecordedHow often do you need to have someone help you when you read instructions, pamphlets, or other written material from your doctor or pharmacy?Jxjzyjlkh50/16/2025Humiliation, Afraid, Rape, and Kick questionnaireAnswerDate RecordedWithin the [...] of sexual activity by your partner or ex-partner?06/01/2024Social Connection and Isolation Panel AnswerDate RecordedIn a typical week, how many times do you talk on the phone with family, friends, or neighbors?More than three times a week06/01/2024How often do you get together with friends or relatives?Twice a week06/01/2024How often do you attend restorationism or catholic services?Never06/01/2024Do you belong to any clubs or organizations such as restorationism groups, unions, fraternal or athletic groups, or school groups?No06/01/2024How often do you attend meetings of the clubs or organizations you belong to?Never06/01/2024re you , , , , never , or living with a partner?Pnkqpvi8606/01/2024 AUDIT-CAnswerDate RecordedQ1: How often do you have [...] very hard 06/01/2024PHQ-2AnswerDate RecordedPatient Health Questionnaire-2 Score0 11/08/2024[facility] - Occupational Stress QuestionnaireAnswerDate [...] were you homeless or living in a fdc (including now)? No06/01/2024CommentsUnknownSex and Gender InformationValueDate Recorded Sex Assigned at BirthNot on fileLegal AivXtxrsd19/15/2023 7:05 PM EDTGender IdentityNot on fileSexual OrientationNot on filedocumented as of this encounter Functional Status * AUDIT-C ScoreAnswerDate of XhcydgxpoaTjkeif188/16/2025 10:00 AM Wolfgang Generic * Q1: How often do you have a drink containing alcohol?AnswerDate of Assessment ZketqvOaklt06/16/2025 10:00 AM Wolfgang Generic * Q2: How many drinks containing alcohol do you have on a typical day when you are drinking?AnswerDate of AssessmentAuthorPatient does not drink06/01/2024 10:00 AM Wolfgang Generic * Q3: How often do you have six or more drinks on one occasion?AnswerDate of AblgbuiktjHoixryWsael2025 10:00 AM Albaro Goss * Over the past 2 weeks, how often have you been bothered by any of the following problems?QuestionAnswerDate of AssessmentAuthorLittle interest or pleasure in doing thingsNot at all11/08/2024 2:57 PM EDTHoawrd Garciaa GAMING TABLE OPERATOR Feeling down, depressed, or hopelessNot at all11/08/2024 2:57 PM EDTHoward Garciaa LPNPatient Health Questionnaire-2 Ngvtd139 2:57 PM EDTVoss, Aidee, GAMING TABLE OPERATOR * QuestionAnswerDate of AssessmentAuthorTrouble falling or staying asleep, or sleeping too muchNearly every day06/02/2024 9:00 AM EDTAidee Garcia GAMING TABLE OPERATOR Feeling tired or having little energyNearly every day06/02/2024 9:00 AM EDT JoseHoward carreroa LPNPoor appetite or overeatingNot at all06/02/2024 9:00 AM EDT JoseHoward carreroa LPNFeeling bad about yourself - or that you are a failure or have let yourself or your family downNearly every day06/02/2024 9:00 AM EDT JoseHoward carreroa LPNTrouble concentrating on things, such as reading the newspaper or watching televisionNot at all06/02/2024 9:00 AM EDTAidee Garcia LPNMoving or speaking so slowly that other people could have noticed? Or the opposite - being so fidgety or restless that you have been moving around a lot more than usual.Not at all06/02/2024 9:00 AM EDAidee Steele LPNThoughts that you would be better off or hurting yourself in some wayNot at all 06/02/2024 9:00 AM EDTAidee Garcia LPNPatient Health Questionnaire-9 Score13 06/02/2024 9:00 AM EDTAidee Garcia LPN * If you checked off any problems on this questionnaire so far,QuestionAnswer Date of AssessmentAuthorHow difficult have these problems made it for you to do your work, take care of things at home, or get along with other people? Somewhat qniygflxn82/28/2025 10:40 AM GREGORIO ORELLANA documented as of this encounter Plan of Treatment DateTypeDepartmentCare Team (Latest Contact Info)Kpfnvmabhcb21/13/2025 10:00 AM ESTProcedure Visit [facility] [address] [place] [phone] Kenneth Clifton, DAREN [address] [facility] [address] [place], [place] [address] 03/22/2025 10:00 AM ESTOffice Visit [facility] [address] [place] [phone] Ole Yang MD [address] [place] [address] 05/31/2025 10:30 AM EDTOffice Visit [facility] [address] [place] [phone] Teri Jo MD [address] [place] [address] documented as of this encounter Procedures Procedure NamePriorityDate/TimeAssociated DiagnosisCommentsVASC US LOWER EXTREMITY VENOUS DUPLEX RIGHT02/16/2023 11:04 AM EST documented in this encounter Results * Vascular US lower extremity venous duplex right (02/16/2023 11:04 AM EST) Anatomical RegionLateralityModalityLower ExtremitiesUltrasoundSpecimen (Source)Anatomical Location / LateralityCollection Method / VolumeCollection TimeReceived Time02/16/2023 11:04 AM EST Narrative 02/16/2023 11:07 AM EST [facility] ?[address] ? [place] [address] ? Ultrasound Report ? Signed ? Patient: CASTLE,LLUVIA L ? MR#: [id number] ?? : 1940 ?Acct:[id number] ?? Age/Sex: 82 / F ?ADM Date: 12/30/23 ?? Loc: US ? Attending Dr: OLE YANG ? Ordering Physician: OLE YANG ?? Date of Service: 02/14/23 ?? Procedure(s): US venous doppler LE RT ?? Accession Number(s): [id number] ? cc: OLE YANG ? [facility] ? [address] [facility] ? [place] [address] ? Patient Name: ?? LLUVIA MORENO ? MRN: [facility]:[id number] ? date: 1940 ?Sex: F ?? Assigned Patient Location: US ?? Current Patient Location: ? Accession/Order Number: [id number] ?? Exam Date: 02/14/2023 ??10:30 ?Report Date: 02/16/2023 ??11:04 ? At the request of: ?? OLE ??EMILY ? Procedure: ??US venous doppler LE RT ? EXAMINATION: US venous doppler LE RT ? HISTORY: LOCALIZED EDEMA R80.0 ? COMPARISON: No relevant comparison available. ? FINDINGS: ? REGION: Right lower extremity ?? THROMBI: None. ?? COMPRESSIBILITY: Normal compressibility. ?? FLOW: Normal waveform and antegrade flow between 5 and 20 cm/s. ?? OTHER: Subcutaneous edema. ? US/US venous doppler LE RT ?? IMPRESSION: ? 1. No deep vein thrombus within the right lower extremity. ? Electronically authenticated by: NAEEM ??SINA ?? Date: 02/16/2023 ??11:04 ? Dictated By: ?Naeem Garcia M.D. ? Signed By: ?02/16/237 ? DD/ 03 ? TD/TT: ? Distribution Center Associate: Procedure Note Radiology, Radiologist, MD - 02/16/2023 [place] [address] Ultrasound Report Signed Patient: LLUVIA MORENO LMR#: [id number] : 1940cct:[id number] Age/Sex: 82 / FADM Date: 02/14/23 Loc: US Attending Dr: OLE YANG Ordering Physician: OLE YANG Date of Service: 02/14/23 Procedure(s): US venous doppler LE RT Accession Number(s): [id number] cc: OLE YANG [place] [address] Patient Name: LLUVIA MORENO MRN: [facility]:[id number] date: 1940 Sex: F Assigned Patient Location: US Current Patient Location: Accession/Order Number: [id number] Exam Date: 02/14/2023 10:30 Report Date: 02/16/2023 [...] Naeem Garcia M.D. Signed By:02/16/23 1107 DD/ 1104 TD/TT: Distribution Center Associate: Authorizing ProviderResult TypeResult StatusDakylie Yang MDIMJarett US PROCEDURES Final Result documented in this encounter Visit Diagnoses Not on filedocumented in this encounter Care Teams Team MemberRelationshipSpecialtyStart DateEnd Date Ole Yang MD [address] [place] [address] PCP - ACO Reach07/10/22 Ole Yang MD [address] [place] [address] PCP - GeneralInternal Medicine07/28/22Thursday, JUAN Figueredo [address] [place] [address] Licensed Practical NurseFamily Medicine/09/09 Debora Saenz, CHERI [address] [place] [address] Licensed Practical NurseFamily Medicine Edna Alcantara LPN [address] [address] 05/06/24documented as of this encounter
--- OUTSIDE RECORDS SUMMARY | 2024-12-16 13:46 | XMS_ITS | Encounter Summary ---
Author Organization [facility] Address [address] [place] [address] Care Team Providers Care Poured Pipe Maker Name Role Phone Ole Yang MD Unavailable [phone] Ole Yang MD Primary Care Provider [phone] ThursdayBea LPN Unavailable [phone] Debora Saenz RN Unavailable Edna Alcantara VOLUNTEER RECRUITMENT COORDINATOR Unavailable Encounter Details DateTypeDepartmentCare Team (Latest Contact Info)Qoiffdgavqo36/20/2024Clinisync Result Encounter [facility] External Department Unsolicited Provider, Generic External Data Social History Tobacco UseTypesPacks/DayYears UsedDateSmoking Tobacco: NeverSmokeless Tobacco: NeverAlcohol UseStandard Drinks/WeekCommentsNever0 (1 standard drink = 0.6 oz pure alcohol)B1300 Health LiteracyAnswerDate RecordedHow often do you need to have someone help you when you read instructions, pamphlets, or other written material from your doctor or pharmacy?Rahjfrodf98/16/2025Humiliation, Afraid, Rape, and Kick questionnaireAnswerDate RecordedWithin the [...] relatives?Twice a week06/01/2024How often do you attend mandaeism or tenriism services?Never06/01/2024Do you belong to any clubs or organizations such as mandaeism groups, unions, fraternal or athletic groups, or school groups?No06/01/2024How often do you attend meetings of the clubs or organizations you belong to?Never06/01/2024re you , , , , never , or living with a partner?Tojqcyl2506/01/2024 AUDIT-CAnswerDate RecordedQ1: How often do you have [...] very hard 06/01/2024PHQ-2AnswerDate RecordedPatient Health Questionnaire-2 Score0 11/08/2024[facility] [place] of Occupational Health - Occupational Stress QuestionnaireAnswerDate [...] or living in a custodial (including now)? No06/01/2024CommentsUnknownSex and Gender InformationValueDate Recorded Sex Assigned at BirthNot on fileLegal McvFuxpbr48/15/2023 7:05 PM EDTGender IdentityNot on fileSexual OrientationNot on filedocumented as of this encounter Functional Status * AUDIT-C ScoreAnswerDate of GmowfehlcnIvnyws508/16/2025 10:00 AM Albaro Goss * Q1: How often do you have a drink containing alcohol?AnswerDate of Assessment ZeqcjjIhzht43/16/2025 10:00 AM Albaro Goss * Q2: How many drinks containing alcohol do you have on a typical day when you are drinking?AnswerDate of AssessmentAuthorPatient does not drink06/01/2024 10:00 AM Albaro Goss * Q3: How often do you have six or more drinks on one occasion?AnswerDate of PffzyvsncrJaarhfQcmbv21/16/2025 10:00 AM Albaro Goss * Over the past 2 weeks, how often have you been bothered by any of the following problems?QuestionAnswerDate of AssessmentAuthorLittle interest or pleasure in doing thingsNot at all11/08/2024 2:57 PM Aidee Raman LPN Feeling down, depressed, or hopelessNot at all11/08/2024 2:57 PM Aidee Raman LPNPatient Health Questionnaire-2 Qqnwj213 2:57 PM Aidee Raman LPN * QuestionAnswerDate [...] watching televisionNot at all06/02/2024 9:00 AM Aidee Raman LPNMoving or speaking so slowly that other [...] or get along with other people? Somewhat lizqxfofb81/28/2025 10:40 AM GREGORIO ORELLANA documented as of this encounter Plan of Treatment DateTypeDepartmentCare Team (Latest Contact Info)Qgtnwhreaaa57/13/2025 10:00 AM ESTProcedure Visit [facility] [address] [place] [address] Kenneth Clifton, DAREN [address] [facility] 5 [place] [address] 03/22/2025 10:00 AM ESTOffice Visit [facility] [place] [address] [place] [address] Ole Yang MD [address] [place] [address] 05/31/2025 10:30 AM EDTOffice Visit [facility] [place] [facility] [address] [place] [address] Teri Jo MD [address] [place] [address] documented as of this encounter Procedures Procedure NamePriorityDate/TimeAssociated DiagnosisCommentsNM ALKA PERF SPECT REST STR08/06/2023 7:39 AM EDT documented in this encounter Results * NM ALKA PERF SPECT REST STR (08/06/2023 7:39 AM EDT)Anatomical RegionLaterality ModalityOtherSpecimen (Source)Anatomical Location / LateralityCollection Method / VolumeCollection TimeReceived Time08/06/2023 7:39 AM EDT Narrative 08/06/2023 7:40 AM EDT [facility] ?[address] ? [place] [address] ?Nuclear Medicine Report ? Signed ? Patient: TIFFANIE,LLUVIA Hill ? MR#: [id number] ?? : 1940 ?Acct:[id number] ?? Age/Sex: 82 / F ?ADM Date: /18/24 ?? Loc: NM ? Attending Dr: LARRY DESEAN ? Ordering Physician: DESEAN,LARRY ?? Date of Service: 08/04/23 ?? Procedure(s): NM alka perf SPECT rest ?? str ?? Accession Number(s): [id number] ? cc: OLE YANG ; LARRY ANTON ? Patient Name: ? LLUVIA MORENO ? MR#: [id number] ? : 1940 ? Exam Date: 08/04/2023 ?? Ordering Doctor: LARRY ANTON ? RADIOLOGY REPORT ? PROCEDURE: ? NM ALKA PERF SPECT REST ?? STR ? COMPARISON: ? None. ? INDICATIONS: ? Chronic systolic heart failure, other forms of dyspnea ? TECHNIQUE: ? Exam Description: ? Stress/Rest one day protocol gated SPECT ?? Rest Imaging: ?10.4 mCi Tc-99m Cardiolite IV on 08/04/2023 ?? Stress Imaging ? 32.0 mCi Tc-99m Cardiolite IV on 08/04/2023 ?? Exercise Protocol: ? 0.4 mg Lexiscan given IV ? Heart Rate (bpm): ? Rest: 70 ? Max: 78 ?PMHR: 55 ?? Blood Pressure: ? Rest: 146/88 ?Max: 146/88 ?? Symptoms: ? Rest and peak stress ECG findings were normal and the exercise portion of the ?? study was normal per attending physician Dr. Islas . For more details please ?? see separate cardiac stress test report. ?? FINDINGS: ? QUALITY OF STUDY: ? Excellent. ?? PERFUSION DEFECT: ? None. ?LOCATION: ? N/A ?SIZE: ? N/A. ?SEVERITY: ?N/A. ?TYPE: ?N/A. ?? WALL MOTION: ? Normal. ?? LV SIZE: ? Normal. 65 mL. ?? TID / TCD: ? None; ??1.0 ?? LVEF: ? Normal. Calculated EF 71%. ? SUMMARY: ? Myocardial perfusion imaging study is NORMAL. ? CONCLUSION: ? 1. Normal nuclear medicine myocardial perfusion scan. ? Dictated by: Naeem Garcia M.D. on 08/06/2023 at 07:25 ? Approved by: Naeem Garcia M.D. on 08/06/2023 at 07:39 ? Dictated By: ?Naeem Garcia M.D. ? Signed By: ?//24 0740 ? DD/ 0739 ? TD/TT: ? Social Media Campaign Manager: Procedure Note Radiology, Radiologist, MD - 08/06/2023 [place] [address] Nuclear Medicine Report Signed Patient: LLUVIA MORENO LMR#: [id number] : 3Acct:[id number] Age/Sex: 82 / FADM Date: 08/04/23 Loc: NM Attending Dr: LARRY ANTON Ordering Physician: LARRY ANTON Date of Service: 08/04/23 Procedure(s): NM alka perf SPECT rest str Accession Number(s): [id number] cc: OLE YANG ; LARRY ANTON Patient Name: LLUVIA MORENO MR#: [id number] : 1940 Exam Date: 08/04/2023 Ordering Doctor: [...] M.D. Signed By:08/06/23 0740 DD/ 0739 TD/TT: Social Media Campaign Manager: Authorizing ProviderResult TypeResult StatusGeneric External Data Provider CLINISYNC IMAGINGFinal Result documented in this encounter Visit Diagnoses Not on filedocumented in this encounter Additional Health Concerns AssessmentNoted TimePHQ-9 Depression Total Score: 10005/27/2023 9:00 AM EDT documented as of this encounter Care Teams Team MemberRelationshipSpecialtyStart DateEnd Ole Yang MD [address] [place] [address] PCP - ACO Reach07/10/22 Ole Yang MD [address] [place] [address] PCP - GeneralInternal Medicine07/28/22ThuKeonBea deleon LPN [address] [place] [address] Licensed Practical NurseFamily Medicine Debora Saenz, CHERI [address] [place] [address] Licensed Practical NurseFamily Medicine Edna Alcantara LPN [address] [place] [address] 05/06/24documented as of this encounter
--- OUTSIDE RECORDS SUMMARY | 2024-12-16 13:46 | XMS_ITS | Encounter Summary ---
Author Organization [facility] Address [address] [facility] [place] [address] Care Team Providers Care Electronic Equipment Set Up Operator Name Role Phone Ole Yang MD Unavailable [phone] Ole Yang MD Primary Care Provider [phone] ThursdayBea LPN Unavailable [phone] Debora Saenz RN Unavailable [phone] Edna Alcantara BED AND BREAKFAST OPERATOR Unavailable Encounter Details DateTypeDepartmentCare Team (Latest Contact Info)Rqlqdqfhetu45/22/2024Clinisync Result Encounter [facility] External Department Unsolicited Provider, Generic External Data Social History Tobacco UseTypesPacks/DayYears UsedDateSmoking Tobacco: NeverSmokeless Tobacco: NeverAlcohol UseStandard Drinks/WeekCommentsNever0 (1 standard drink = 0.6 oz pure alcohol)B1300 Health LiteracyAnswerDate RecordedHow often do you need to have someone help you when you read instructions, pamphlets, or other written material from your doctor or pharmacy?Fprmjnuhs29/16/2025Humiliation, Afraid, Rape, and Kick questionnaireAnswerDate RecordedWithin the [...] relatives?Twice a week06/01/2024How often do you attend latter-day or baptism services?Never06/01/2024Do you belong to any clubs or organizations such as latter-day groups, unions, fraternal or athletic groups, or school groups?No06/01/2024How often do you attend meetings of the clubs or organizations you belong to?Never06/01/2024re you , , , , never , or living with a partner?Zqeluia8706/01/2024 AUDIT-CAnswerDate RecordedQ1: How often do you have [...] very hard 06/01/2024PHQ-2AnswerDate RecordedPatient Health Questionnaire-2 Score0 11/08/2024[facility] [place] of Occupational Health - Occupational Stress QuestionnaireAnswerDate [...] or living in a usp (including now)? No06/01/2024CommentsUnknownSex and Gender InformationValueDate Recorded Sex Assigned at BirthNot on fileLegal DbuXkvmpd94/15/2023 7:05 PM EDTGender IdentityNot on fileSexual OrientationNot on filedocumented as of this encounter Functional Status * AUDIT-C ScoreAnswerDate of WkmgntyuzjVaxcll649/16/2025 10:00 AM Albaro Goss * Q1: How often do you have a drink containing alcohol?AnswerDate of Assessment BwfplwFqvbr36/16/2025 10:00 AM Albaro Goss * Q2: How many drinks containing alcohol do you have on a typical day when you are drinking?AnswerDate of AssessmentAuthorPatient does not drink06/01/2024 10:00 AM Albaro Goss * Q3: How often do you have six or more drinks on one occasion?AnswerDate of GeuhkaiyrkRpekseTjjen56/16/2025 10:00 AM Albaro Goss * Over the past 2 weeks, how often have you been bothered by any of the following problems?QuestionAnswerDate of AssessmentAuthorLittle interest or pleasure in doing thingsNot at all11/08/2024 2:57 PM Aidee Raman LPN Feeling down, depressed, or hopelessNot at all11/08/2024 2:57 PM Aidee Raman LPNPatient Health Questionnaire-2 Rnipx077 2:57 PM Aidee Raman LPN * QuestionAnswerDate [...] or get along with other people? Somewhat euemmrrxe72/28/2025 10:40 AM GREGORIO ORELLANA documented as of this encounter Plan of Treatment DateTypeDepartmentCare Team (Latest Contact Info)Bemwiggujjm73/13/2025 10:00 AM ESTProcedure Visit [facility] [address] [place] [address] Kenneth Clifton, DAREN [address] [facility] [address] [place] [address] 03/22/2025 10:00 AM ESTOffice Visit [facility] [address] [place] [address] Ole Yang MD [address] [place] [address] 05/31/2025 10:30 AM EDTOffice Visit [facility] [place] [facility] [address] [place] [address] Teri Jo MD [address] [place] [address] documented as of this encounter Procedures Procedure NamePriorityDate/TimeAssociated DiagnosisCommentsXR CHEST 2V07/08/2023 1:50 PM EDT documented in this encounter Results * XR CHEST 2V (07/08/2023 1:50 PM EDT)Anatomical RegionLateralityModalityOther Specimen (Source)Anatomical Location / LateralityCollection Method / Volume Collection TimeReceived Time07/08/2023 1:50 PM EDT Narrative 07/08/2023 1:53 PM EDT The [facility] ?[address] ? [place] [address] ?XRay Report ? Signed ? Patient: TIFFANIE,LLUVIA L ? MR#: [id number] ?? : 1940 ?Acct:[id number] ?? Age/Sex: 82 / F ?ADM Date: 05/22/24 ?? Loc: LAB ? Attending Dr: LARRY DESEAN ? Ordering Physician: DESEAN,LARRY ?? Date of Service: 07/08/23 ?? Procedure(s): XR chest 2V ?? Accession Number(s): [id number] ? cc: OLE YANG ; LARRY ANTON ? [facility] ? [address] ? [place] [address] ? Patient Name: ?? LLUVIA MORENO ? MRN: [facility]:[id number] ? date: 1940 ?Sex: F ?? Assigned Patient Location: LAB ?? Current Patient Location: LAB ?? Accession/Order Number: [id number] ?? Exam Date: 07/08/2023 ??11:19 ?Report Date: 07/08/2023 ??13:50 ? At the request of: ?? LARRY ??DESEAN ? Procedure: ??XR chest 2V ? EXAMINATION: XR chest 2V ? HISTORY: Chronic systolic heart failure I50.22 ? COMPARISON: 08/22/2021 ? TECHNIQUE: PA and lateral ? FINDINGS: ?? LUNGS: No significant pulmonary parenchymal abnormalities. ?? VASCULATURE: No increased pulmonary vasculature. ?? PLEURA: No pneumothorax, effusion, or pleural thickening. ?? CARDIAC: Stable prominent heart size ?? MEDIASTINUM: No visible mass or adenopathy. Left pacemaker ?? 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 of the spine ?? OTHER: Negative. ? XR/XR chest 2V ?? IMPRESSION: ? Stable exam. No acute cardiopulmonary process ? Electronically authenticated by: ROLANDO ??KYLAH ?? Date: 07/08/2023 ??13:50 ? Dictated By: ?Rolando Montero M.D. ? Signed By: ?07/08/23 1353 ? DD/ 1350 ? TD/TT: ? Cream Beater: Procedure Note Radiology, Radiologist, MD - 07/08/2023 [place] [address] XRay Report Signed Patient: LLUVIA MORENO LMR#: [id number] : 3Acct:[id number] Age/Sex: 82 / FADM Date: 07/08/23 Loc: LAB Attending Dr: LARRY ANTON Ordering Physician: LARRY ANTON Date of Service: 07/08/23 Procedure(s): XR chest 2V Accession Number(s): [id number] cc: OLE YANG ; LARRY ANTON [place] [id number] Patient Name: LLUVIA MORENO MRN: [facility]:[id number] date: 1940 Sex: F Assigned Patient Location: LAB Current Patient Location: LAB Accession/Order Number: [id number] Exam Date: 07/08/2023 11:19 Report Date: 07/08/2023 [...] Dictated By: Rolando Montero M.D. Signed By:07/08/23 1351 DD/ 1350 TD/TT: Cream Beater: Authorizing ProviderResult TypeResult StatusGeneric External Data Provider CLINISYNC IMAGINGFinal Result documented in this encounter Visit Diagnoses Not on filedocumented in this encounter Additional Health Concerns AssessmentNoted TimePHQ-9 Depression Total Score: 1004 9:00 AM EDT documented as of this encounter Care Teams Team MemberRelationshipSpecialtyStart DateEnd Date Ole Yang MD [address] [facility] 110 [place] [address] PCP - ACO Reach07/10/22 Ole Yang MD [address] [place] [address] PCP - GeneralInternal Medicine07/28/22Thursday, JUAN Figueredo [address] [place] [address] Licensed Practical NurseFamily Medicine Debora Saenz, RN [address] [place], [place] [address] Licensed Practical NurseFamily Medicine Edna Alcantara LPN [address] [place] [address] 05/06/24documented as of this encounter
--- OUTSIDE RECORDS SUMMARY | 2024-12-16 13:47 | XMS_ITS | Encounter Summary ---
Author Organization [facility] Address [address] [place] [address] Care Team Providers Care Life Coach Name Role Phone Ole Yang MD Unavailable [phone] Ole Yang MD Primary Care Provider [phone] Edna Alcantara LPN Unavailable Encounter Details DateTypeDepartmentCare Team (Latest Contact Info)Sbgjaagnwim53/29/2025Travel Social History Tobacco UseTypesPacks/DayYears UsedDateSmoking Tobacco: NeverSmokeless Tobacco: NeverAlcohol UseStandard Drinks/WeekCommentsNever0 (1 standard drink = 0.6 oz pure alcohol)B1300 Health LiteracyAnswerDate RecordedHow often do you need to have someone help you when you read instructions, pamphlets, or other written material from your doctor or pharmacy?Mjtbhljrw18/16/2025Humiliation, Afraid, Rape, and Kick questionnaireAnswerDate RecordedWithin the [...] relatives?Twice a week06/01/2024How often do you attend yazidism or jewish services?Never06/01/2024Do you belong to any clubs or organizations such as yazidism groups, unions, fraternal or athletic groups, or school groups?No06/01/2024How often do you attend meetings of the clubs or organizations you belong to?Never06/01/2024re you , , , , never , or living with a partner?Uadroad8406/01/2024 AUDIT-CAnswerDate RecordedQ1: How often do you have [...] very hard 06/01/2024PHQ-2AnswerDate RecordedPatient Health Questionnaire-2 Score0 11/08/2024[facility] [place] of Occupational Health - Occupational Stress QuestionnaireAnswerDate [...] or living in a intermediate (including now)? No06/01/2024CommentsUnknownSex and Gender InformationValueDate Recorded Sex Assigned at BirthNot on fileLegal XdpRehyzl00/15/2023 7:05 PM EDTGender IdentityNot on fileSexual OrientationNot on filedocumented as of this encounter Plan of Treatment DateTypeDepartmentCare Team (Latest Contact Info)Lggwbviogqi27/13/2025 10:00 AM ESTProcedure Visit [facility] [address] [facility] [address] [place] [address] Kenneth Clifton DPM [address] [facility] 5 [place] [address] 03/22/2025 10:00 AM ESTOffice Visit [facility] [place] [address] [facility] 110 [place] [address] Ole Yang MD [address] [facility] [address] [place], [place] [address] 05/31/2025 10:30 AM EDTOffice Visit [facility] [place] [facility] [address] [place] [address] Teri Jo MD [address] [place] [address] documented as of this encounter Visit Diagnoses Not on filedocumented in this encounter Additional Health Concerns AssessmentNoted TimePHQ-9 Depression Total Score: 13006/02/2024 9:00 AM EDT documented as of this encounter Care Teams Team MemberRelationshipSpecialtyStart DateEnd Ole Yang MD [address] [facility] [address] [place] [address] PCP - ACO [facility]07/10/22 Ole Yang MD [address] [facility] [address] [place] [address] PCP - GeneralInternal Medicine07/28/22 Edna Alcantara LPN [address] [facility] [address] [place] [address] 05/06/24documented as of this encounter
--- OUTSIDE RECORDS SUMMARY | 2024-12-16 13:47 | XMS_ITS | Encounter Summary ---
Author Organization [facility] Address [address] [facility] [place] [address] Care Team Providers Care Book Store Associate Name Role Phone Ole Yang MD Unavailable [phone] Ole Yang MD Primary Care Provider Edna Alcantara LPN Unavailable Encounter Details DateTypeDepartmentCare Team (Latest Contact Info)Nnjpyvwoovl12/29/2025Bamboo flowsheet [facility] [address] [facility] [address] [place] [address] Ole Yang MD [address] [facility] 110 [place] [address] Social History Tobacco UseTypesPacks/DayYears UsedDateSmoking Tobacco: NeverSmokeless Tobacco: NeverAlcohol UseStandard Drinks/WeekCommentsNever0 (1 standard drink = 0.6 oz pure alcohol)B1300 Health LiteracyAnswerDate RecordedHow often do you need to have someone help you when you read instructions, pamphlets, or other written material from your doctor or pharmacy?Exttqddqa79/16/2025Humiliation, Afraid, Rape, and Kick questionnaireAnswerDate RecordedWithin the [...] relatives?Twice a week06/01/2024How often do you attend anabaptist or jehovah's witness services?Never06/01/2024Do you belong to any clubs or organizations such as anabaptist groups, unions, fraternal or athletic groups, or school groups?No06/01/2024How often do you attend meetings of the clubs or organizations you belong to?Never06/01/2024re you , , , , never , or living with a partner?Eubotth9306/01/2024 AUDIT-CAnswerDate RecordedQ1: How often do you have [...] very hard 06/01/2024PHQ-2AnswerDate RecordedPatient Health Questionnaire-2 Score0 11/08/2024[facility] [place] of Occupational Health - Occupational Stress QuestionnaireAnswerDate [...] were you homeless or living in a penitentiary (including now)? No06/01/2024CommentsUnknownSex and Gender InformationValueDate Recorded Sex Assigned at BirthNot on fileLegal KmjYousen99/15/2023 7:05 PM EDTGender IdentityNot on fileSexual OrientationNot on filedocumented as of this encounter Plan of Treatment DateTypeDepartmentCare Team (Latest Contact Info)Zvmmvlidhtx85/13/2025 10:00 AM ESTProcedure Visit [facility] [address] [place] [address] Kenneth Clifton, DAREN [address] [facility] [address] [place] [address] 03/22/2025 10:00 AM ESTOffice Visit [facility] [place] [address] [place] [address] Ole Yang MD [address] [place] [address] 05/31/2025 10:30 AM EDTOffice Visit [facility] [place] [facility] [address] [place] [address] Teri [place] MD [address] [place] [address] documented as of this encounter Visit Diagnoses Not on filedocumented in this encounter Additional Health Concerns AssessmentNoted TimePHQ-9 Depression Total Score: 13006/02/2024 9:00 AM EDT documented as of this encounter Care Teams Team MemberRelationshipSpecialtyStart DateEnd Date Ole Yang MD [address] [place] [address] PCP - ACO Reach07/10/22 Ole Yang MD [address] [place] [address] PCP - GeneralInternal Medicine07/28/22 Edna Alcantara LPN [address] [place] [address] 05/06/24documented as of this encounter
--- OUTSIDE RECORDS SUMMARY | 2024-12-16 13:47 | XMS_ITS | Encounter Summary ---
Author Organization [facility] Address [address] [place] [address] Care Team Providers Care Electromatic Typist Name Role Phone Ole Yang MD Unavailable [phone] Ole Yang MD Primary Care Provider Edna Alcantara LPN Unavailable Encounter Details DateTypeDepartmentCare Team (Latest Contact Info)Odmoltofdwk92/28/2025bstract [facility] [place] [address] [facility] [address] [place] [id number] Ole Yang MD [address] [facility] [address] [place] [address] Social History Tobacco UseTypesPacks/DayYears UsedDateSmoking Tobacco: NeverSmokeless Tobacco: NeverAlcohol UseStandard Drinks/WeekCommentsNever0 (1 standard drink = 0.6 oz pure alcohol)B1300 Health LiteracyAnswerDate RecordedHow often do you need to have someone help you when you read instructions, pamphlets, or other written material from your doctor or pharmacy?Rhcrexdqh52/16/2025Humiliation, Afraid, Rape, and Kick questionnaireAnswerDate RecordedWithin the [...] relatives?Twice a week06/01/2024How often do you attend rastafari or lutheran services?Never06/01/2024Do you belong to any clubs or organizations such as rastafari groups, unions, fraternal or athletic groups, or school groups?No06/01/2024How often do you attend meetings of the clubs or organizations you belong to?Never06/01/2024re you , , , , never , or living with a partner?Kqdgpuy7506/01/2024 AUDIT-CAnswerDate RecordedQ1: How often do you have [...] very hard 06/01/2024PHQ-2AnswerDate RecordedPatient Health Questionnaire-2 Score0 11/08/2024[facility] [place] [facility] - Occupational Stress QuestionnaireAnswerDate [...] Recorded Sex Assigned at BirthNot on fileLegal UmqCwmwdl89/15/2023 7:05 PM EDTGender IdentityNot on fileSexual OrientationNot on filedocumented as of this encounter Plan of Treatment DateTypeDepartmentCare Team (Latest Contact Info)Fvozmpntbnv30/13/2025 10:00 AM ESTProcedure Visit [facility] [address] [place] [address] Kenneth Clifton, DAREN [address] [facility] [place], [place] [address] [place] [address] 03/22/2025 10:00 AM ESTOffice Visit [facility] [place] [address] [place] [address] Ole Yang MD [address] [place] [address] 05/31/2025 10:30 AM EDTOffice Visit [facility] [address] [place] [address] Teri Jo MD [address] [place] [address] documented as of this encounter Visit Diagnoses Not on filedocumented in this encounter Additional Health Concerns AssessmentNoted TimePHQ-9 Depression Total Score: 13006/02/2024 9:00 AM EDT documented as of this encounter Care Teams Team MemberRelationshipSpecialtyStart DateEnd Date Ole Yang MD [address] [place] [address] PCP - ACO Reach07/10/22 Ole Yang MD [address] [place] [address] PCP - GeneralInternal Medicine07/28/22 Edna Alcantara LPN [address] [place] [address] 05/06/24documented as of this encounter
--- OUTSIDE RECORDS SUMMARY | 2024-12-16 13:50 | XMS_ITS | CCD ---
Author Organization [facility] Care Team Providers Care Car Hopper Name Role Phone KEANU KLINE Admitting Unavailable KEANU KLINE Attending Unavailable OLE YANG Referring Unavailable OLE YANG Primary Care Unavailable KEANU KLINE Admitting Unavailable EKANU KLINE Attending Unavailable OLE YANG Primary Care Unavailable OLE YANG Referring Unavailable KEANU KLINE Admitting Unavailable KEANU KLINE Attending Unavailable OLE YANG Primary Care Unavailable OLE YANG Referring Unavailable MICHELLE, AHMAD Consulting Unavailable TREY, DR GRANT Primary Care Unavailable MICHELLE, AHIRISHD Attending Unavailable MICHELLE, AHMAD Admitting Unavailable CHERY, SHELDON Consulting Unavailable CHERY, SHELDON Attending Unavailable OBI GOTTLIEBA Admitting Unavailable TREY, DR GRANT Primary Care Unavailable STEPH, DR MAYRA Denson Admitting Unavailabl e REINECK, DR MAYRA Denson Consulting Unavailabl e YANG, DR GRANT Primary Care Unavailable STEPH, DR MAYRA Denson Attending Unavailabl e ZIEBAMAIRANI, DR JOEL Petersen Consulting Unavailable DESEAN, MERYL Consulting Unavailable DESEAN, MERYL Attending Unavailable TREY, DR GRANT Primary Care Unavailable DESEAN, MERYL Admitting Unavailable DESEAN, MERYL Admitting Unavailable DESEAN, MERYL Consulting Unavailable DESEAN, MERYL Attending Unavailable CHERY, SHELDON Primary Care Unavailable CHERY, SHELDON Consulting Unavailable CHERY, SHELDON Attending Unavailable CHERY, SHELDON Admitting Unavailable TREY, DR GRANT Primary Care Unavailable MICHELLE, AHMAD Consulting Unavailable MICHELLE, AHMAD Attending Unavailable TREY, DR GRANT Primary Care Unavailable MICHELLE, AHMAD Admitting Unavailable GABRIEL GREEN Admitting Unavailable TREY, DR GRANT Primary Care Unavailable GABRIEL GREEN Attending Unavailable CLAUEBAMAIRANI, DR JOEL Petersen Consulting Unavailable GABRIEL GREEN Consulting Unavailable CHERY, SHELDON Consulting Unavailable CHERY, SHELDON Attending Unavailable CHERY, SHELDON Admitting Unavailable TREY, DR GRANT Primary Care Unavailable HEMMER, DR DIPTI Montesinos Admitting Unavailable TREY, DR GRANT Primary Care Unavailable ZIEBAMAIRANI, DR JOEL Petersen Consulting Unavailable HEMMER, DR DIPTI Montesinos Attending Unavailable HEMMER, DR DIPTI Montesinos Consulting Unavailable CHERY, SHELDON Attending Unavailable CHERY, SHELDON Admitting Unavailable CHERY, SHELDON Consulting Unavailable TREY, DR GRANT Primary Care Unavailable MICHELLE, AHMAD Attending Unavailable YANG, DR GRANT Primary Care Unavailable MICHELLE, AHMAD Admitting Unavailable MICHELLE, AHMAD Consulting Unavailable CHERY, SHELDON Attending Unavailable CHERY, SHELDON Admitting Unavailable TREY, DR GRANT Primary Care Unavailable ZIEBAMAIRANI, DR JOEL Petersen Consulting Unavailable CHERY, SHELDON Consulting Unavailable ELIUD, KEANU Admitting Unavailable ELIUD, KEANU Attending Unavailable TREY, DR GRANT Primary Care Unavailable ZIEBAMAIRANI, DR JOEL Petersen Consulting Unavailable ELIUD, KEANU Consulting Unavailable CHERY, SHELDON Consulting Unavailable CHERY, SHELDON Attending Unavailable CHERY, SHELDON Admitting Unavailable TREY, DR GRANT Primary Care Unavailable OBELIEL CELESTE Attending Unavailable OLE YANG Referring Unavailable OLE YANG Primary Care Unavailable Ole Yang MD Unavailable [phone] Ole Yang MD Primary Care Provider Thursday VP BIOLOGY, Bea Unavailable Letty ALONZO, Debora Unavailable Ole Yang MD [facility] Unavailable Michael Zapien Attending Provider [phone] Luis E Soares MD Attending Provider [phone] [place] VP BIOLOGY, Edna Unavailable Ole Yang II Attending Provider Ole Yang II Primary Care Provider Jaz ELISE, Harpreet Monroy Emergency Provider Kamaljit Ziegler DO Admit Provider Kamaljit Ziegler DO Attending Provider Stephan Dawn MD Other Provider Wil ELISE, Wyatt Other Provider Tory Guzman Other Provider Unavailable Jojo Hutson DO Other Provider Naresh ELISE, Joel Other Provider Jakub Coffman DO Other Provider Eulogio Evans DO Attending Provider Eulogio Evans DO Other Provider Mitzi Chan APRN Other Provider Malvin INFORMATION CLERK [employer] L[employer] GENERATOR-C, Pita Pratt Other Provider [phone] Shayna Adkins MD Attending Provider David PhD, Kenneth Attending Provider Ole Yang Admitting Unavailable Ole Yang Attending Unavailable Luis E Soares Admitting Unavailable Luis E Soares Attending Unavailable Stephan Dawn Attending Unavailable Wyatt De La Torre Consulting Unavailable Ole Yang Primary Care Unavailable Kamaljit Ziegler Admitting Unavailabl e Tory Guzman Consulting Unavailable Jojo Hutson Consulting Unavailable Joel Infante Consulting Unavailable Jakub Coffman Consulting Unavailab Eulogio Nails Consulting Unavailable Mitzi Chan Consulting Unavailable Pita Coombs Consulting Unavailable Thursday VP BIOLOGY, Bea Unavailable Letty ALONZO, Debora Unavailable CLAUDIO SANCHEZ Attending Unavailable KEANU KLINE Referring Unavailable CLAUDIO SANCHEZ Attending Unavailable EULOGIO AMAYA Attending Unavailable KEANU KLINE Referring Unavailable ELIUD, KEANU Referring Unavailable ELIUD, KEANU Referring Unavailable ELIUD, KEANU Referring Unavailable ELIUD, KEANU Referring Unavailable ELIUD, KEANU Referring Unavailable ELIUD, KEANU Referring Unavailable DANIKANILE Referring Unavailable DANIKA, NILE Referring Unavailable ELIUD, KEANU Referring Unavailable OLE YANG Attending Unavailable TERI JO Attending Unavailable DIPTI WOLF Attending Unavailable DIPTI WOLF Attending Unavailable OLE YANG Attending Unavailable OLE YANG Attending Unavailable DIPTI WOLF Attending Unavailable KENNETH SKINNER Attending Unavailable OLE YANG Referring Unavailable NICOLE BAUM Attending Unavailable OLE YANG Attending Unavailable DIPTI WOLF Attending Unavailable OLE YANG Attending Unavailable TERI JO Attending Unavailable OLE YANG Attending Unavailable Allergies Allergy ClassificationReported Allergen(s)Allergy TypeDate of OnsetReaction(s) Facility (16 sources)Lorazepam; Translations: [LORAZEPAM]Propensity to adverse reactions 39-80-4085VdbrkjhcvbrfwqUSRGGuthrie [facility] (16 sources)Spironolactone; Translations: [SPIRONOLACTONE]Drug [id number] [facility] Medic[facility] Current Medications MedicationDrug Class(es)DatesSig (Normalized)Sig (Original)amLODIPine 5 mg oral tablet (13 sources)Dihydropyridine Calcium Channel BlockerStart: 45-10-6009babq 1 tablet by mouth once dailyamLODIPine (Norvasc) 5 MG tablet Take 5 mg by mouth Daily 12/13/2024 ActiveStart: 11-21-2024 End: 28-45-1488uqlh 1 tablet by mouth once dailyamLODIPine (Norvasc) 2.5 MG tablet Indications: 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) Take 1 tablet (2.5 mg) by mouth Daily 30 tablet 5 11/28/2024 12/14/2024 Discontinued (Dose adjustment)apixaban 5 mg oral tablet (20 sources)Factor Xa InhibitorStart: 65-09-0935wvvr 1 tablet by mouth in the morningapixaban (Eliquis) 5 MG tablet Indications: Paroxysmal atrial fibrillation (HCC) Take 1 tablet (5 mg) by mouth in the morning and 1 tablet (5 mg) before bedtime. 200 tablet 3 03/02/2024 ActiveStart: 02-18-2023 End: 43-14-3921iqrs 1 tablet by mouth in the morningapixaban (Eliquis) 5 MG tablet Indications: Paroxysmal atrial fibrillation (CMS/HCC) Take 1 tablet (5 mg) by mouth in the morning and 1 tablet (5 mg) before bedtime. 200 tablet 3 02/18/2023 ActiveStart: 19-50-1020ktea 1 tablet by mouth in the morningapixaban (Eliquis) 5 MG tablet Indications: Paroxysmal atrial fibrillation (CMS/HCC) Take 1 tablet (5 mg) by mouth in the morning and 1 tablet (5 mg) before bedtime. 200 tablet 3 02/18/2023 Activeascorbic acid 1000 mg oral tablet (1 source)Vitamin Ctake 1 tablet by mouth in the morningascorbic acid, vitamin C, (vitamin C) 1000 mg tablet Take 1 tablet (1,000 mg total) by mouth in the morning. 0 Activeaspirin 81 mg delayed release oral tablet (20 sources)Platelet Aggregation Inhibitor, Nonsteroidal Anti-inflammatory Drug Start: 50-42-3034cksk 1 tablet by mouth once dailyatorvastatin 80 mg oral tablet (20 sources)HMG-CoA Reductase InhibitorStart: 78-48-5997vnug 1 tablet by mouth once dailyatorvastatin (Lipitor) 80 MG tablet Indications: Atherosclerosis of [place] coronary artery of [place] heart without angina pectoris Take 1 tablet (80 mg) by mouth Daily 100 tablet 3 03/02/2024 ActiveStart: 43-82-2005tvpzrfxyqulj (Lipitor) 80 MG tablet Indications: Atherosclerosis of [place] coronary artery of [place] heart without angina pectoris (CMS/HCC) TAKE 1 TABLET EVERY MORNING 100 tablet 3 12/11/2023 ActiveStart: 02-18-2023 End: 80-94-4100agxz 1 tablet by mouth in the morningatorvastatin (Lipitor) 80 MG tablet Indications: Atherosclerosis of [place] coronary artery of [place] heart without angina pectoris (CMS/HCC) Take 1 tablet (80 mg) by mouth in the morning. 100 tablet 3 02/18/2023 ActiveStart: 92-64-8751eecf 1 tablet by mouth in the morningatorvastatin (Lipitor) 80 MG tablet Indications: Atherosclerosis of [place] coronary artery of [place] heart without angina pectoris (CMS/HCC) Take 1 tablet (80 mg) by mouth in the morning. 100 tablet 3 02/18/2023 Vpnnxc664 actuat budesonide 0.16 mg/actuat / formoterol fumarate 0.0048 mg/actuat / glycopyrrolate 0.009 mg/actuat metered dose inhaler (20 sources)Corticosteroid, beta2-Adrenergic AgonistStart: 03-16-2024 End: 48-96-7607zzjt 2 puff(s) by inhalation in the morning Johzrvs-Qdhnyrfwcbo-Pvdqxdeyha (Breztri Aerosphere) 160-9-4.8 MCG/ACT aerosol Indications: Pulmonary emphysema, unspecified emphysema type (HCC) Inhale 2 puffs in the morning and 2 puffs before bedtime. 10.7 g 3 03/16/2024 09/14/2024 OlbfqmvcpetkCbdqxcp-Ckclosqmlsu-Ruvogfxxbk (Breztri Aerosphere) 160-9-4.8 MCG/ACT aerosol Inhale 2 Inhalation in the morning and 2 Inhalation before bedtime. Activecalcium carbonate 1500 mg oral tablet (11 sources)Start: 78-91-7741idak 1 tablet by mouth in the morningcalcium carbonate (Calcium 600) 600 MG tablet Indications: Age-related osteoporosis without currentpathological fracture Take 1 tablet (600 mg) by mouth in the morning and 1 tablet (600 mg) in the evening. Take with meals. 11/08/2024 Active Calcium Carbonate-Vitamin D2 600 mg calcium- 200 unit tablet (5 sources)Start: 69-80-1769jpaw 1 tablet by mouth once dailyStart: 10-31-2024 take 1 tablet by mouth once dailyCalcium Carbonate-Vitamin D2 600 mg calcium- 200 unit tablet Active 1 TAB PO Daily October 31, 2024 12:00am Complies with drug therapycefdinir 300 mg oral capsule (7 sources)Cephalosporin AntibacterialStart: 11-28-2024 End: 03-39-4872itie 1 capsule by mouth in the morningcefdinir (Omnicef) 300 MG capsule Indications: Acute bronchitis, unspecified organism Take 1 capsule (300 mg) by mouth in the morning and 1 capsule (300 mg) before bedtime. Do all this for 7 days. 14capsule 11/28/2024 12/14/2024 Discontinued (Therapy completed) cholecalciferol 0.025 mg oral capsule (20 sources)Vitamin DStart: 12-42-8844fmwi 1 capsule by mouth in the morning cholecalciferol 1000 units capsule Indications: Age-related osteoporosis without current pathological fracture Take 1,000 Units by mouth in the morning and 1,000 Units before bedtime. 11/08/2024 ActiveStart: 64-32-3255vmho 1 tablet by mouth once daily End: 89-09-5156milo 1 capsule by mouth once dailycholecalciferol (Vitamin D-3) 50 MCG (2000 UT) capsule Take 2,000 Units by mouth Daily 11/08/2024 Discontinued (Reorder)cholecalciferol, vitamin D3, 10 mcg (400 unit) capsule 1 (one) time each day at the same time. 0 Activedoxycycline hyclate 100 mg oral capsule (2 sources)Tetracycline-class DrugStart: 06-02-2024 End: 24-96-2280hjzkfpjellf (Vibramycin) 100 MG capsule Indications: COPD exacerbation (CMS/HCC) Take 1 capsule (100 mg) by mouth in the morning and 1 capsule (100 mg) before bedtime. Do all this for 7 days. Take with at least 8 ounces (large glass) of water, do not lie down for 30 minutes after. 14 capsule 06/02/2024 06/09/2024 Activelovastatin 40 mg oral tablet (1 source)HMG-CoA Reductase Inhibitorlovastatin (MEVACOR) 40 mg tablet lovastatin 40 mg tablet 0 Activemelatonin 5 mg oral tablet (16 sources)Start: 10-18-0391beom 1 tablet by mouth once dailymelatonin 5 MG tablet Take 5 mg by mouth Daily 11/03/2024 ActivemethIMAzole 5 mg oral tablet (20 sources)Thyroid Hormone Synthesis InhibitorStart: 10-31-2024 End: 63-74-1796xvko 1 tablet by mouth once dailymethIMAzole (Tapazole) 5 MG tablet Indications: Hyperthyroidism Take 1 tablet (5 mg) by mouth Daily90 tablet 1 11/30/2024 05/29/2025 ActiveStart: 06-07-2024 End: 85-20-1331yucmDYKimzn (Tapazole) 10 MG tablet Indications: Hyperthyroidism TAKE ONE-HALF (1/2) TABLET ON THURSDAY, THURSDAY, THURSDAY AND THURSDAY 26 tablet 3 06/07/2024 09/14/2024 Discontinued (Dose adjustment)Start: 03-02-2024 methIMAzole (Tapazole) 10 MG tablet Indications: Hyperthyroidism (CMS/HCC) Take 1/2 tablet on Thursday 27 tablet 03/02/2024 ActiveStart: 00-90-1225neyhEZQbacr (Tapazole) 10 MG tablet Indications: Hyperthyroidism (CMS/HCC) TAKE 1/2 TABLET ON THURSDAY, THURSDAY, THURSDAY, AND THURSDAY 27 tablet 3 12/11/2023 ActivemethIMAzole (Tapazole) 10 MG tablet 1/2 tablet Orally Thursday, Thursday, , Thursday Activetake 0.5 tablet by mouth once dailymethIMAzole (TAPAZOLE) 10 mg tablet Take 0.5 tablets every day by oral route. 0 Cgewbw70 hr metoprolol succinate 50 mg extended release oral tablet (20 sources)beta-Adrenergic BlockerStart: 57-03-8662cxxs 1 tablet by mouth once dailymetoprolol succinate XL (Toprol-XL) 50 MG 24 hr tablet Indications: Paroxysmal atrial fibrillation (HCC) Take 1 tablet (50 mg) by mouth Daily 100 tablet 3 03/02/2024 ActiveStart: 51-98-3432uyreoyzczx succinate XL (Toprol-XL) 50 MG 24 hr tablet Indications: Paroxysmal atrial fibrillation (CMS/HCC) TAKE 1 TABLET IN THE MORNING; DO NOT CRUSH OR CHEW 100 tablet 3 12/11/2023 ActiveStart: 66-82-0040zmzw 1 tablet by mouth every twenty-four hours in the morning metoprolol succinate XL (Toprol-XL) 50 MG 24 hr tablet Indications: Paroxysmal atrial fibrillation (CMS/HCC) Take 1 tablet (50 mg) by mouth in the morning. Do not crush or chew.. 100 tablet 3 02/18/2023 Active End: 95-81-2123jizqgainhh succinate XL (Toprol-XL) 50 MG 24 hr tablet TAKE 1 TABLET DAILY for 100 days 02/17/2023 Discontinued (Reorder)Multiple Vitamins- Minerals (Multi For Her 50+) tablet (20 sources)Multiple Vitamins-Minerals (Multi For Her 50+) tablet 1 (one) time each day at the same time ActiveMultiple Vitamins-Minerals (Multi For Her 50+) tablet 1 (one) time each day at the same time. ActiveMultivitamin (Daily Multi- Vitamin) tablet (5 sources)Start: 48-06-6827eagn 1 tablet by mouth once dailyStart: 09-15-2025 take 1 tablet by mouth once dailyMultivitamin (Daily Multi-Vitamin) tablet Active 1 TAB PO Daily October 31, 2024 12:00am Complies with drug therapy multivitamin,oj-pdvm-Up-FA-min 27-0.4 mg tablet (1 source)multivitamin,rx-qasq-Fa-FA-min 27-0.4 mg tablet 1 (one) time each day at the same time. 0 Siosvv37 actuat olodaterol 0.0025 mg/actuat / tiotropium 0.0025 mg/actuat inhalation spray (1 source)Anticholinergic, beta2-Adrenergic Agonisttiotropium-olodateroL 2.5-2.5 mcg/actuation mist Inhale 2 puffs every day by inhalation route. 0 Active PARoxetine hydrochloride 20 mg oral tablet (20 sources)Serotonin Reuptake InhibitorStart: 99-74-7860qnbe 1 tablet by mouth in the morningPARoxetine (Paxil) 20 MG tablet Indications: Anxiety Take 1 tablet (20 mg) by mouth in the morning.100 tablet 3 03/02/2024 ActiveStart: 12-11-2023 PARoxetine (Paxil) 20 MG tablet Indications: Anxiety TAKE 1 TABLET IN THE MORNING 100 tablet 3 12/11/2023 ActiveStart: 02-18-2023 End: 58-42-5757gttk 1 tablet by mouth in the morningPARoxetine (Paxil) 20 MG tablet Indications: Anxiety Take 1 tablet (20 mg) by mouth in the morning.100 tablet 3 02/18/2023 ActiveStart: 78-12-2648vlxp 1 tablet by mouth in the morning PARoxetine (Paxil) 20 MG tablet Indications: Anxiety Take 1 tablet (20 mg) by mouth in the morning.100 tablet 3 02/18/2023 ActivepredniSONE 20 mg oral tablet (5 sources)Start: 42-67-3877zgxz 1 tablet by mouth in the morningpredniSONE (DELTASONE) 20 mg tablet TAKE 1 TABLET (20 MG) BY MOUTH IN THE MORNING AND 1 TABLET (20 MG) BEFORE BEDTIME. DO ALL THIS FOR 5 DAYS. 0 12/16/2022 Active End: 61-85-4760pzry 1 tablet by mouth once dailypredniSONE (Deltasone) 10 MG tablet Take 10 mg by mouth Daily 11/26/2023 Discontinued (Other) Completed/Discontinued Medications MedicationDrug Class(es)DatesSig (Normalized)Sig (Original)[id number] 200 actuat albuterol 0.09 mg/actuat metered dose inhaler (20 sources)beta2-Adrenergic AgonistStart: 12-16-2022 End: 72-18-3339enmq 2 puff(s) by inhalation every four hours for wheezing albuterol HFA 90 mcg/act inhaler Indications: Pulmonary emphysema, unspecified emphysema type (HCC)Inhale 2 puffs every 4 (four) hours if needed for wheezing 18 g 3 11/26/2023 10/13/2024 Discontinued (Therapy completed)brexpiprazole 0.5 mg oral tablet (20 sources)Atypical AntipsychoticStart: 10-13-2024 End: 16-83-1822kvvl 1 tablet by mouth once dailyBrexpiprazole (Rexulti) 0.5 MG tablet Indications: Dementia with behavioral disturbance (HCC) Take 1 tablet by mouth Daily 90 tablet 10/13/2024 10/18/2024 Discontinued (Side effects)Start: 09-06-2024 End: 11-14-7247Iiktqcjpzoqhl (Rexulti) 0.5 MG tablet Indications: Dementia with behavioral disturbance (HCC) Take .25 mg daily 15 tablet 3 09/06/2024 09/14/2024 Discontinued (Dose adjustment)Start: 43-48-4046ksic 0.25 mg by mouth once daily Brexpiprazole (Rexulti) 0.5 MG tablet Indications: Dementia with behavioral disturbance (HCC) Take 0.25 mg by mouth Daily 60 tablet 3 07/18/2024 Active Start: 07-07-2024 End: 17-51-3315jbta 0.25-0.5 mg by mouth once daily, then take 0.25 tablet by mouth once daily, then take 2 tablets by mouth once dailyBrexpiprazole (Rexulti) 0.25 MG tablet Indications: Dementia with behavioral disturbance (HCC) Take 0.25-0.5 mg by mouth Daily Take 0.25 daily for two weeks then 0.5 mg daily. 60 tablet 2 07/07/2024 10/31/2024 Discontinuedbumetanide 1 mg oral tablet (20 sources)Loop Diuretic End: 86-34-7409kvdv 1 tablet by mouth once daily as neededbumetanide (Bumex) 1 MG tablet Take 1 mg by mouth Daily PRN 10/13/2024 Discontinued (Therapy complet ed)calcium carbonate 1500 mg / cholecalciferol 200 unt oral tablet (20 sources)Vitamin DStart: 10-13-2024 End: 06-85-3600kkde 2 tablets by mouth once dailyCalcium Carb-Cholecalciferol (Calcium + Vitamin D3) 600-5 MG-MCG tablet Indications: Age-related osteoporosis without current pathological fracture Take 2 tablets by mouth 1 (one) time each day at the same time 60 tablet 2 10/13/2024 11/08/2024 Discontinued Cholecalciferol-Vitamin C (Vitamin D3-Vitamin C) 1000-500 UNIT-MG capsule (2 sources) End: 83-31-1804Utepkqnhebnjloe-Vitamin C (Vitamin D3-Vitamin C) 1000-500 UNIT-MG capsule 1 (one) time each day at the same time. 05/27/2023 Discontinued (Therapy completed)codeine phosphate 2 mg/ml / guaiFENesin 20 mg/ml oral solution (2 sources)Opioid AgonistStart: 01-28-2023 End: 88-46-9311dkjd 5 mL by mouth every six hours for coughguaiFENesin-codeine (Robitussin-AC) 100-10 MG/5ML syrup Indications: COPD with acute exacerbation (C MS/HCC) Take 5 mL by mouth every 6 (six) hours if needed for cough for up to 10 days 240 mL 1 01/28/2023 02/11/2023 Discontinued (Therapy completed)1 ml denosumab 60 mg/ml prefilled syringe (4 sources)RANK Ligand InhibitorStart: 03-30-2024 End: 73-11-0254qjmdumtpl (Prolia) injection 60 mgStart: 03-30-2024 End: 66-69-5552sgetsr 60 mg by subcutaneous injection once60 mg, Subcutaneous, Once, On Thu03/30/24 at 1015, For 1 doselevoFLOXacin 500 mg oral tablet (2 sources)Quinolone AntimicrobialStart: 01-28-2023 End: 91-50-6336nury 1 tablet by mouth in the morninglevoFLOXacin (Levaquin) 500 MG tablet Indications: COPD with acute exacerbation (CMS/HCC) Take 1 tablet (500 mg) by mouth in the morning for 7 days. 7 tablet 01/28/2023 02/11/2023 Discontinued (Therapy completed)lisinopril 5 mg oral tablet (20 sources)Angiotensin Converting Enzyme InhibitorStart: 89-55-0001ugsg 2.5 mg by mouth once dailyStart: 03-02-2024 End: 88-64-0898plfo 0.5 tablet by mouth in the morninglisinopril 5 MG tablet Indications: Primary hypertension Take 0.5 tablets (2.5 mg) by mouth in the m orning. 100 tablet 1 03/02/2024 11/08/2024 Discontinued (Therapy completed) Start: 88-25-3238ahqbvhcfxl 5 MG tablet Indications: Primary hypertension (CMS/HCC) TAKE 1 TABLET EVERY MORNING 100 tablet 3 12/11/2023 ActiveStart: 02-18-2023 End: 31-88-1571yyye 1 tablet by mouth in the morninglisinopril 5 MG tablet Indications: Primary hypertension (CMS/HCC) Take 1 tablet (5 mg) by mouth inthe morning. 100 tablet 3 02/18/2023 ActiveStart: 46-70-9210gcsh 1 tablet by mouth in the morninglisinopril 5 MG tablet Indications: Primary hypertension (CMS/HCC) Take 1 tablet (5 mg) by mouth inthe morning. 100 tablet 3 02/18/2023 Active LORazepam 0.5 mg oral tablet (20 sources)BenzodiazepineStart: 41-76-2354fgfl 0.25 mg by mouth once daily Start: 07-07-2024 End: 64-95-0490rgis 0.5 tablet by mouth at bedtimeLORazepam (Ativan) 0.5 MG tablet Indications: Anxiety Take 0.5 tablets (0.25 mg) by mouth at bedtime 15 tablet 1 10/31/2024 11/08/2024 Discontinued (Side effects)Start: 08-21-2021 End: 46-65-6051dqzx 1 tablet by mouth every six hours as needed for anxiety and anxiety and anxietyLORazepam (Ativan) 0.5 MG tablet Indications: Anxiety Take 1 tablet (0.5 mg) by mouth every 6 (six)hours if needed for anxiety 90 tablet 05/13/2024 Activemelatonin 1.5 mg tablet split tablet (2 sources)Start: 11-03-2024 End: 32-57-1956zsznckvtb 1.5 mg tablet split tablet Daily at bedtime as needed for Insomnia 11/03/2024 11/08/2024 Discontinuedspironolactone 25 mg oral tablet (20 sources)Aldosterone AntagonistStart: 03-09-2024 End: 36-10-4508mxtd 1 tablet by mouth once dailyStart: 39-20-7969dvbueqygoxjmsp (Aldactone) 25 MG tablet Indications: Chronic systolic heart failure (CMS/HCC) TAKE 1 TABLET IN THE MORNING 100 tablet 3 12/11/2023 ActiveStart: 02-18-2023 End: 54-84-2193bkue 1 tablet by mouth in the morningspironolactone (Aldactone) 25 MG tablet Indications: Chronic systolic heart failure (CMS/HCC) Take 1 tablet (25 mg) by mouth in the morning. 100 tablet 3 02/18/2023 ActiveStart: 62-90-1259eind 1 tablet by mouth in the morningspironolactone (Aldactone) 25 MG tablet Indications: Chronic systolic heart failure (CMS/HCC) Take 1 tablet (25 mg) by mouth in the morning. 100 tablet 3 02/18/2023 Active Problems Active Problems Problem ClassificationProblemDateDocumented DateEpisodic/ChronicAcute bronchitis (4 sources)Acute bronchitis; Translations: [Acute bronchitis, unspecified] 03-37-0809QnbolsuuZmieuiovcdojos/social admission (2 sources)Patient encounter status; Translations: [Other specified counseling] 82-24-3264IkxcuzscIgrctaz disorders (20 sources)Anxiety; Translations: [Anxiety disorder, unspecified]Onset: 119533-88-3515FczravuGwstvr (20 sources)Mild intermittent asthma; Translations: [Mild intermittent asthma, uncomplicated]Onset: 511941-70-2010IpptmmbRfrepvq dysrhythmias (20 sources)Unspecified atrial fibrillation; Translations: [Atrial fibrillation] Onset: 223364-85-6764JkdtehuJdxczcl kidney disease (20 sources)Chronic kidney disease stage 3B ; Translations: [Chronic kidney disease, stage 3b (HCC) (CMS/HCC)]Onset: [id number]ctb kidney disease (2 sources)Chronic kidney disease; Translations: [Chronic kidney disease, stage 3b]Onset: 06-54-9562Hcrfbxq obstructive pulmonary disease and bronchiectasis (20 sources)Chronic obstructive pulmonary disease with (acute) exacerbation; Translations: [Chronic obstructivelung disease]Onset: ChronicConduction disorders (20 sources)Presence of cardiac pacemaker; Translations: [Automatic implantable cardiac defibrillator in situ]Onset: 11-21-2020 Resolved: [id number]b heart failure; nonhypertensive (20 sources)Acute on chronic combined systolic (congestive) and diastolic (congestive) heart failure; Translations: [Chronic combined systolic and diastolic heart failure]Onset: 08-05-2016 Resolved: 04-60-2033YnvhgqwDibbiroj atherosclerosis and other heart disease (20 sources)Atherosclerosis of coronary artery without angina pectoris; Translations: [Atherosclerotic heart disease of [place] coronary artery without angina pectoris]Onset: 09-24-2015 Resolved: 414691-59-1947KgaxxbbWkbnoagm, dementia, and amnestic and other cognitive disorders (20 sources)Dementia with behavioral disturbance; Translations: [Dementia with behavioral disturbance (HCC)]Onset: 703493-42-9300OxiivzzGwgynemv mellitus with complications (2 sources)Type 2 diabetes mellitus; Translations: [Type 2 diabetes mellitus with other specified complication]43-43-8271AfdjrppEfgjjjtud of lipid metabolism (20 sources)Hyperlipidemia, unspecified; Translations: [Pure hypercholesterolemia]Onset: 011325-30-0292CcuvnnjPyvvgjwdl hypertension (20 sources)Essential (primary) hypertension; Translations: [Hypertensive disorder]Onset: 03-72-6065TgjbggzNvzjh valve disorders (20 sources)Rheumatic disorders of both mitral and tricuspid valves; Translations: [Non-rheumatic mitral regurgitation ]Onset: ChronicHypertension with complications and secondary hypertension (20 sources)Benign hypertensive heart disease; Translations: [Hypertensive heart disease with heart failure]Onset: 143206-01-5433UacjezqUlutjjnethdtk and screening for infectious disease (2 sources)Vaccination needed; Translations: [Encounter for immunization] 92-65-6273UyfcfrdmClddhvd and fatigue (2 sources)Fatigue; Translations: [Other fatigue]43-62-9118ZyogxnsvOdaifxwkoa disorders (20 sources)Other primary ovarian failure; Translations: [Primary ovarian failure]Onset: 13-47-3356ZgltcdbDyqr disorders (20 sources)Recurrent major depressive episodes, mild ; Translations: [Major depressive disorder, recurrent, mild]Onset: 951757-33-0631VaphyojVckdjfk (2 sources)Pain in toe; Translations: [Tinea unguium]61-41-2981Ggaoabpz Osteoarthritis (20 sources)Primary osteoarthritis, right shoulder; Translations: [Arthropathy, unspecified, shoulder region]Onset: 907375-16-8146ZmuafyuRujgshgtpzsj (20 sources)Senile osteoporosis; Translations: [Age-related osteoporosis without current pathological fracture]Onset: 819833-99-0945KflefhhWilkt and ill- defined heart disease (20 sources)Chronic systolic dysfunction of left ventricle; Translations: [Heart disease, unspecified]Onset: 837644-26-3069VszfdyjFexgm and ill-defined heart disease (2 sources)Heart disease, unspecified; Translations: [Heart disease, unspecified]Onset: 36-39-5537GsjbaxcWcflx circulatory disease (1 source)Personal history of transient ischemic attack (TIA), and cerebral infarction without residual deficits; Translations: [PERS HX TIA AND CI NO RESID DEFICIT]Onset: 27-79-9197LhhhgjtiXxgeq connective tissue disease (1 source)Repeated falls; Translations: [REPEATED FALLS]Onset: 03-20-2022 EpisodicOther diseases of veins and lymphatics (2 sources)Vascular insufficiency; Translations: [Venous insufficiency (chronic) (peripheral)]98-87-2999AbrsrnwjEcbvt eye disorders (1 source)Monocular esotropia, right eye; Translations: [Monocular esotropia, right eye]Onset: 62-94-6414LlqjefbdVqvey hereditary and degenerative nervous system conditions (2 sources)Impaired cognition; Translations: [Mild cognitive impairment, so stated]02-07-7600LcfeusgGsvea hereditary and degenerative nervous system conditions (2 sources)Mild cognitive disorder ; Translations: [Mild cognitive impairment, so stated]79-01-4274PmwaughAmjpm nervous system disorders (5 sources)Disturbance of attention; Translations: [Attention and concentration deficit]06-42-5895ZkupukmSpita nervous system disorders (2 sources)Impaired mwoyayuod26-28-6051KialclmbVwtyv nervous system disorders (2 sources)Abnormal gait; Translations: [Other abnormalities of gait and mobility]44-79-3602YjvlcvolArgdw nervous system disorders (5 sources)Word finding difficulty ; Translations: [Other speech disturbances] 28-60-9842NvspqwpaSswvz skin disorders (6 sources)Nail deformity; Translations: [Other nail disorders]09-14-2024 EpisodicPeri-; endo-; and myocarditis; cardiomyopathy (except that caused by tuberculosis or sexually transmitted disease) (20 sources)Cardiomyopathy; Translations: [Cardiomyopathy, unspecified]Onset: 997686-77-1318PwqmqgkCdxjucgr codes; unclassified (5 sources)Insomnia; Translations: [Other insomnia]66-46-2193EbcgbqoCvuxpunj codes; unclassified (3 sources)Localized edema; Translations: [Localized edema]Onset: 12-12-2024 42-19-0521VbccpgekHkzoxwsh codes; unclassified (20 sources)Memory impairment; Translations: [Other amnesia]Onset: 05-27-2023 74-88-8804QqjlwffiEpzvwzkm codes; unclassified (5 sources)Amnesia; Translations: [Other amnesia]70-97-6840BpwfekvpGhxalmtl codes; unclassified (5 sources)Family history of dementia; Translations: [Family history of other mental and behavioral disorders]08-28-3914UktxtttjJmtpaojb codes; unclassified (1 source)Localized edema; Translations: [Localized edema]Onset: 12-12-2024 EpisodicRespiratory failure; insufficiency; arrest (adult) (20 sources)Dependence on supplemental oxygen; Translations: [Dependence on supplemental oxygen]Onset: 701240-42-9561AdopbqxLaexegotqrg; intervertebral disc disorders; other back problems (4 sources)Disorder of right sciatic nerve; Translations: [Sciatica, right side] 20-45-3194JetuhdppPrwxynm disorders (20 sources)Thyrotoxicosis, unspecified without thyrotoxic crisis or storm; Translations: [Hyperthyroidism]Onset: 80-03-1170JbptvhqMhvwgyhajncz (1 source)CONTACT W/AND (SUSP) EXPOS COVID-19; Translations: [CONTACT W/AND (SUSP) EXPOS COVID-19]Onset: 61-62-9169Erauzsosjgbw (8 sources)Post hospital appointment. Please call to reschedule if needed. Unclassified (1 source)Unspecified dementia, mild, with psychotic disturbance; Translations: [Unspecified dementia, mild, with psychotic disturbance]Onset: 10-31-2024 Unclassified (2 sources)Chronic atrial fibrillation, unspecified; Translations: [Chronic atrial fibrillation, unspecified]Onset: 08-07-2023 Past or Other Problems Problem ClassificationProblemDateDocumented DateEpisodic/ChronicAbdominal pain (20 sources)Inguinal pain; Translations: [Lower abdominal pain, unspecified] Onset: 10-04-2015 Resolved: 794853-09-3548JesbrqbbDgsuu and unspecified renal failure (20 sources)Acute renal failure syndrome; Translations: [Acute kidney failure, unspecified]Onset: 10-31-2024 Resolved: 714985-60-8686BkxyyguxOdgex cerebrovascular disease (20 sources)Cerebrovascular accident; Translations: [Cerebral infarction, unspecified]Onset: 09-24-2015 Resolved: 250964-33-7815FtzgeqiEpjkcnilt and vision defects (20 sources)Diplopia; Translations: [Diplopia]Onset: EpisodicDiabetes mellitus without complication (20 sources)Impaired fasting glycemia; Translations: [Impaired fasting glucose] Onset: 836153-73-2609GbiqvktsT Codes: Natural/environment (1 source)Overexertion from prolonged static or awkward postures, initial encounter; Translations: [OVEREXERTPROLNG STAT/AWK PST INIT]Onset: 06-18-2021 EpisodicFluid and electrolyte disorders (20 sources)Dehydration; Translations: [Dehydration]Onset: 10-31-2024 Resolved: 638500-14-1649BkklxuqbMigquys control disorders, NEC (20 sources)Homicidal thoughts; Translations: [Homicidal ideations]Onset: 10-31-2024 Resolved: 271883-94-4397LfefvktbOmlj disorders (20 sources)Mood disordersOnset: 05-27-2023 Resolved: Other aftercare (1 source)alf (current) use of aspirin; Translations: [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 ROOFER 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 ASPIRIN]Onset: 24-19-0617AsuanabjGaigq aftercare (1 source)Other long term acute care registered nurse (current) drug therapy; Translations: [OTH TERRA COTTA ROOFER CURRENT DRUG THERAPY]Onset: 25-94-4621IgeshvzqFgser aftercare (20 sources)Long-term current use of anticoagulant; Translations: [alf (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]Onset: 923135-23-7744WdbwmzvcWshgi circulatory disease (20 sources)History of cerebrovascular accident without residual deficits; Translations: [Personal history of transient ischemic attack (TIA), and cerebral infarction without residual deficits]Onset: 145187-89-3303QylxipwmJmkmr connective tissue disease (4 sources)Pain in right leg; Translations: [PAIN IN RIGHT LEG]Onset: 09-04-2021 EpisodicOther connective tissue disease (1 source)Pain in left leg; Translations: [PAIN IN LEFT LEG]Onset: 06-18-2021 EpisodicOther connective tissue disease (20 sources)Recurrent falls ; Translations: [Repeated falls]Onset: 07-28-2022 57-21-8066WmelkmqkWnvjs connective tissue disease (20 sources)Right rotator cuff syndrome; Translations: [Unspecified rotator cuff tear or rupture of right shoulder, not specified as traumatic]Onset: 07-28-2022 90-99-1650HpbyklmnWntmg connective tissue disease (20 sources)Tear of right rotator cuff; Translations: [Unspecified rotator cuff tear or rupture of right shoulder, not specified as traumatic]Onset: 09-12-2016 Resolved: 453341-50-2911HpgtgzdzTvkgr eye disorders (1 source)Esotropia of right eye; Translations: [Monocular esotropia, right eye] 07-97-0594PaewbbsdNswfk eye disorders (1 source)Abducens nerve palsy; Translations: [Sixth [abducent] nerve palsy, right eye]09-14-5625LsqnhqamNgoiy liver diseases (20 sources)Elevated liver enzymes level; Translations: [Abnormal levels of other serum enzymes]Onset: 082335-29-1423NrqsztnnYfdps lower respiratory disease (6 sources)Other forms of dyspnea; Translations: [OTHER FORMS OF DYSPNEA]Onset: 55-88-3056DsoxyozxVlswn lower respiratory disease (3 sources)Shortness of breath; Translations: [SHORTNESS OF BREATH]Onset: 97-73-6617QziklyryRrtjy lower respiratory disease (20 sources)Dyspnea on exertion; Translations: [Other forms of dyspnea]Onset: 211012-99-0261TivfhohrEvdbv lower respiratory disease (20 sources)Hypoxia; Translations: [Hypoxemia]Onset: EpisodicOther non-traumatic joint disorders (20 sources)Derangement of shoulder; Translations: [Joint derangement, unspecified]Onset: 909330-92-0689TjydikvmBqjzv nutritional; endocrine; and metabolic disorders (20 sources)Body mass index 25-29 - overweight; Translations: [Overweight]Onset: 150138-02-6521LdxvykcwTiwvc screening for suspected conditions (not mental disorders or infectious disease) (20 sources)Lung function testing abnormal; Translations: [Abnormal results of pulmonary function studies]Onset: 07-28-2022 Resolved: 102052-41-8524OqnfurzwUynnytqz codes; unclassified (4 sources)Other specified postprocedural states; Translations: [OTH SPECIFIED POSTPROCEDURAL STATES]Onset: 91-32-7713JyqdnxuvQlngtcfq codes; unclassified (20 sources)Difficulty sleeping ; Translations: [Sleep disorder, unspecified] Onset: 011145-26-7361FwfkdtvyHzmnpmz and strains (1 source)Strain of unspecified muscles, fascia and tendons at thigh level, left thigh, initial encounter; Translations: [STRAIN UNS MUSC FASC LT THIGH INIT] Onset: 76-52-8417OiormywwXjwitaq and intentional self-inflicted injury (20 sources)Suicidal thoughts; Translations: [Suicidal ideations]Onset: 10-31-2024 Resolved: 570104-52-7195JhdwhgfiBjdvdnvrfib injury; contusion (20 sources)Contusion of right lower leg, initial encounter; Translations: [Contusion of unspecified part of lower limb]Onset: 09-24-2015 Resolved: 463388-81-5882Sujikfqm Results Test NameValueInterpretationReference DjeklPtydlcbg07xz 43-34-377461EWK for Lluvia's daughter Ashtyn to increase Amlodipine to 5mg. Keep track of daily weights, blood pressure and pulse. 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 per Eulogio Amaya.[facility] CenterOffice Visiton 99-19-4297Czexjo-up [id number] Lluvia Ferraro 1940 Date Provider Department Center 12/12/2024 03139-BGHNCZ, [facility] Family History Problem Relation Age of Onset Colon cancer Father Coronary artery disease Brother Hypertension Brother Kidney cancer Brother Family Status - Relation Status Age at Mother Father Brother Level of Service:27175 [place] OFFICE/OUTPATIENT ESTABLISHED MOD MDM 30 MIN Reason for Visit and Comments: Follow-up [264520] - Patient is here today for a follow up [facility] admission for blood pressure issues, kidney failure, hallucinations, depression, anxiety. Patient states blood pressure is erratic, 170 to 205 Cerebrovascular Accident [149] Coronary Artery Disease [187] Hypertension [542105] Atrial Fibrillation [80] Congestive Heart Failure [127] Cardiomyopathy [104] Hyperlipidemia [182] Shortness of Breath [353675] - SOB/CLAIRE patient is on o2 at 2lmp via n/c Edema [[id number]] - Bilateral leg swelling.[facility] CenterOrders Onlyon 48-80-8273Ueadpw [id number] Lluvia Ferraro 1940 Date Provider Department Center 11/22/2024 241-[facility]U [facility] Family History Problem Relation Age of Onset Colon cancer Father Coronary artery disease Brother Hypertension Brother Kidney cancer Brother Family Status - Relation Status Age at Father BrotherNormalUniversUniversity Hospitals Conneaut Medical CenterBASI METABOLIC PANELon 91-86-4560Ucnvdvx [Mass/Vol]9.4 mg/dLNormal8.6-10.4Quest DiagnosticsComment on above:Performed By: #### 54441 #### [facility] [address] [place] [phone] Non Destructive Testing Specialist: Priyanka Petersen FlatiChloride [Moles/Vol]100 mmol/SDlilse81-803 Quest DiagnosticsComment on above:Performed By: #### 24847 #### [facility] [address] [place], [place] [phone] Non Destructive Testing Specialist: Priyanka Petersen FlatiCO2 [Moles/Vol]33 mmol/OGdxd07-72Kmrwv DiagnosticsComment on above:Performed By: #### 61190 #### [facility] [address] [place], [place] [phone] Non Destructive Testing Specialist: Priyanka Petersen FlatiCreatinine [Mass/Vol]1.02 mg/dLHigh0.60-0.95 Quest DiagnosticsComment on above:Performed By: #### 67792 #### [facility] [address] [place] [phone] Non Destructive Testing Specialist: Priyanka TrivediiGFR/1.73 sq M.predicted among non-blacks MDRD (S/P/Bld) [Vol rate/Area]55 mL/min/{1.73_m2}Low> OR = 60Quest DiagnosticsComment on above:Performed By: #### 73364 #### [facility] [address] [place], [place] [phone] Non Destructive Testing Specialist: Priyanka Petersen FlatiGlucose [Mass/Vol]126 mg/pYFokj20-58Wqzeh DiagnosticsComment on above:Result Comment: Fasting reference interval For someone without known diabetes, a glucose value >125 mg/dL indicates that they may have diabetes and this should be confirmed with a follow-up test.Performed By: #### 12939 #### [facility] [address] [place] [phone] Non Destructive Testing Specialist: Priyanka Petersen FlatiPotassium [Moles/Vol]4.5 mmol/LNormal3.5-5.3 Quest DiagnosticsComment on above:Performed By: #### 22127 #### [facility] [address] [place] [phone] Non Destructive Testing Specialist: Priyanka Petersen FlatiSodium [Moles/Vol]141 mmol/RSvjuwi683-255Xyrxs DiagnosticsComment on above:Performed By: #### 54046 #### [facility] [address] [place], [place] [address] Non Destructive Testing Specialist: Priyanka Petersen FlatiUrea nitrogen [Mass/Vol]17 mg/dLNormal7-25 Quest DiagnosticsComment on above:Performed By: #### 30654 #### [facility] [address] [place] [phone] Non Destructive Testing Specialist: Priyanka Petersen FlatiUrea nitrogen/Creatinine [Mass ratio]17 mg/mg Normal6-22Quest DiagnosticsComment on above:Performed By: #### 81794 #### [facility] [address] [place] [phone] Non Destructive Testing Specialist: Priyanka TrivediiOrlacy Onlyon 82-33-0805Bachiw [id number] Lluvia Ferraro 1940 F Date Provider Department Center 11/05/2024 [facility]ARR[facility] C[facility] Family History Problem Relation Age of Onset Colon cancer Father Coronary artery disease Brother Hypertension Brother Kidney cancer Brother Family Status - Relation Status Age at Father BrotherNormalUniversity of [facility] head/brain wo/w sandra 66-59-7416YL head/brain wo/w [facility] [place] [address] MRI Report Signed Patient: Lluvia Ferraro MR#: [id number] 4 : 1940 Acct:[id number] Age/Sex: 84 / F ADM Date: 10/31/24 Loc: Room: [address] [place] [address] Type: ADM IN Attending Dr: Stephna Dawn MD Copies to: DO Stephan Ruffin MD Ordering Provider: Eulogio Evans DO Date of Service: 11/03/24 MR/MR head/brain wo/w con: cognitive changes, mood changes, behavior changes MRI brain performed without and with contrast INDICATION: Cognitive changes, mood changes, behavior changes COMPARISON: MRI brain 07/22/2007 FINDINGS: No restricted diffusion. Moderate generalized involutional changes, progressed from prior examination with prominence of ventricles and sulci. Moderate periventricular, subcortical T2 prolongation identified nonspecific, true to chronic small vessel ischemic disease. Remote lacunar stroke right frontal deep white matter. Remote lacunar stroke right peritrigonal white matter.. Remote linear focus of stroke left lateral cerebellar hemisphere. No abnormal GRE signal. Intracranial intravascular flow voids are preserved. There is tapering left M1 segments on T2 imaging, likely artifactual as it appears appears normal in caliber the postcontrast images. Polypoid changes left maxillary sinus. Right maxillary sinus effusion. Following contrast administration, no abnormal postcontrast enhancement is identified. MR/MR head/brain wo/w con IMPRESSION: Moderate microvascular disease and Central involutional changes without evidence of acute intracranial process by MRI. Impression dictated by: Socrates Chung M.D. 11/03/2024 3:23 PM Dictation Location: [place] [address] Transcribed By: [facility] 11/03/24 1523 Dictated By: Socrates Chung MD 11/03/24 1506 Signed By: 11/03/24 [facility] Physician GroupXR chest 1V portableon 98-13-7016PC chest 1V portableSELECT [facility] Main [place] [address] [place] [address] XRay Report Signed Patient: Lluvia Ferraro MR#: [id number] 4 : 1940 Acct:[id number] Age/Sex: 84 / F ADM Date: 10/31/24 Loc: Room: [address] [place] [address] Type: ADM IN Attending Dr: Stephan Dawn MD Copies to: Stephan Dawn MD Ordering Provider: Stephan Dawn MD Date of Service: 11/03/24 XR/XR chest 1V portable: to check pacemaker wires prior to MRI Plain film chest Single view HISTORY: Check pacemaker wires. COMPARISON: 08/06/2015 FINDINGS: SUPPORT DEVICES: None POSTSURGICAL CHANGES: Cardiac device intact. HEART: Within normal limits PULMONARY ROBBI: Within normal limits MEDIASTINUM: Unremarkable LUNGS AND PLEURA: No acute lung process, pleural effusion or pneumothorax identified. BONY STRUCTURES: Similar degeneration ADDITIONAL FINDINGS None XR/XR chest 1V portable IMPRESSION: No acute process. Intact cardiac device Impression dictated by: Ten De Souza M.D. 11/03/2024 1:49 PM Dictation Location: [facility]--16 Transcribed By: [facility] 11/03/24 1349 Dictated By: Ten De Souza DO 11/03/24 1348 Signed By: 11/03/24 1349[facility] Physician GroupBasic Metabolic Panelon 38-92-3702Gkgxo gap [Moles/Vol]11.6 mmol/LNormal6.0-15.0The [facility] Physician GroupComment on above:Performed By: #### CBC, BMP ####[place] [address] [place] [address] USACalcium [Mass/Vol]9.0 mg/dLNormal 8.6-10.3The [facility] Care Physician GroupComment on above:Performed By: #### CBC, BMP ####[address] [address] [place] Chloride [Moles/Vol]107 mmol/MZsmkml36-412Bsv [facility] Care Physician GroupComment on above:Performed By: #### CBC, BMP ####[address] [address] [place]ACO2 [Moles/Vol]25.1 mmol/OUvchmi70.0-31.0The [facility] Care Physician GroupComment on above:Performed By: #### CBC, BMP ####[address] [address] [place] Creatinine [Mass/Vol]1.10 mg/dLNormal0.60-1.20The [facility] Comment on above:Performed By: #### CBC, BMP ####[address] [address] USACreatinine Clr Calc Ntedrfcy05.43 NormalThe Formerly [facility] Health Care Physician GroupComment on above:Result Comment: PERFORMED BY: [address] [place] [id number] PATHOLOGIST UTILITY APPRAISER JUANA CLIFFORD M.D.Performed By: #### CBC, BMP ####[place] [address] [place] [id number] USAGFR/1.73 sq M.predicted MDRD (S/P/Bld) [Vol rate/Area]50.169 mL/min/{1.73_m2}NormalThe [facility] Comment on above:Performed By: #### CBC, BMP ####[place] [address] [place] [address] USAGlucose [Mass/Vol]117 mg/yYRcqw48-836 The [facility] Care Physician GroupComment on above:Result Comment: Random Glucose Reference Range is dependent on time and content of last meal. Glucose of more than 200 mg/dL in a nonstressed, ambulatory subject supports the diagnosis of Diabetes Mellitus. ADA recommended reference rangePerformed By: #### CBC, BMP ####[place] [address] USAPotassium [Moles/Vol] 4.7 mmol/LNormal3.5-5.1The [facility] Care Physician GroupComment on above:Performed By: #### CBC, BMP ####[place] [address] USASodium [Moles/Vol]139 mmol/FNhmkni667-746Fjl [facility] Care Physician GroupComment on above:Performed By: #### CBC, BMP ####[address] [address] USAUrea nitrogen [Mass/Vol]30 mg/dLHigh 7-25The [facility] Care Physician GroupComment on above:Performed By: #### CBC, BMP ####[place] [id number] [facility] Complete Blood Count Auto Diffon 09-84-6014Yyhglqlzt (Bld) [#/Vol]0.1 10*3/uL Normal0.0-0.2The [facility] Care Physician GroupComment on above:Result Comment: PERFORMED BY: [facility] [address] [place] [id number] PATHOLOGIST UTILITY APPRAISER JUANA CLIFFORD M.D.Performed By: #### CBC, BMP ####[place] [address] USABasophils/100 WBC (Bld)0.8 %Normal.The [facility] Care Physician GroupComment on above:Performed By: #### CBC, BMP ####[place] [address] [place] Eosinophils (Bld) [#/Vol]0.3 10*3/uLNormal0.0-0.45The [facility] Comment on above:Performed By: #### CBC, BMP ####[place] [address] USAEosinophils/100 WBC (Bld)4.2 %Normal. The [facility] Care Physician GroupComment on above:Performed By: #### CBC, BMP ####[address] Erythrocyte distribution width (RBC) [Ratio]16.3 %High11.9-15.3The [facility] Care Physician GroupComment on above:Performed By: #### CBC, BMP ####[place] [address] USAHematocrit (Bld) [Volume fraction]30.8 %Low34.0-46.4The [facility] Care Physician GroupComment on above:Performed By: #### CBC, BMP ####[place] [address] USAHemoglobin (Bld) [Mass/Vol]10.0 g/dLLow11.8-15.4The [facility] Physician GroupComment on above:Performed By: #### CBC, BMP ####[place] [address] [place] Lymphocytes (Bld) [#/Vol]1.0 10*3/uLNormal1.00-4.8The [facility] Comment on above:Performed By: #### CBC, BMP ####[place] [address] USALymphocytes/100 WBC (Bld)15.1 %Normal. The [facility] Care Physician GroupComment on above:Performed By: #### CBC, BMP ####[place] [address] USAMCH (RBC) [Entitic mass]28.1 olOwhcoj59.7-34.3The [facility] Physician GroupComment on above:Performed By: #### CBC, BMP ####[place] [address] USAMCV (RBC) [Entitic vol]86.5 uQCekmwm21-411Bpc [facility] Care Physician GroupComment on above:Performed By: #### CBC, BMP ####[place] [address] USAMean Corpuscular HGB Conc32.5 g/eTGdgpai81.0-35.0The [facility] Physician GroupComment on above:Performed By: #### CBC, BMP ####[place] [address] USAMonocytes (Bld) [#/Vol]0.7 10*3/uLNormal 0.0-0.8The [facility] Physician GroupComment on above:Performed By: #### CBC, BMP ####[place] [address] [place] Monocytes/100 WBC (Bld)11.1 %Normal.The Formerly [facility] Care Physician GroupComment on above:Performed By: #### CBC, BMP ####[place] [address] USANeutrophils (Bld) [#/Vol]4.6 10*3/uLNormal1.8-7.7The Formerly [facility] Care Physician GroupComment on above:Performed By: #### CBC, BMP ####[place] [address] [place] Neutrophils/100 WBC (Bld)68.8 %Normal.The Former[facility] Care Physician GroupComment on above:Performed By: #### CBC, BMP ####[place] [address] [place] [address] USANRBC%0.0 /100{WBC}Normal0-0.5The Formerly [facility] Care Physician GroupComment on above:Performed By: #### CBC, BMP ####[address] [address] USAPlatelet mean volume (Bld) [Entitic vol]7.5 fLNormal6.3-10.7The Formerly [facility] Care Physician GroupComment on above: Performed By: #### CBC, BMP ####[address] [address] USAPlatelets (Bld) [#/Vol]265 10*3/dXCcqkdo950-795Eco Former[facility] Care Physician GroupComment on above:Performed By: #### CBC, BMP ####[place] [address] USARBC (Bld) [#/Vol]3.57 10*6/uLLow3.60-5.00The Former[facility] Care Physician GroupComment on above:Performed By: #### CBC, BMP ####[place] [address] USAWBC (Bld) [#/Vol]6.6 10*3/uLNormal3.8-11.6The Formerly [facility] Care Physician GroupComment on above:Performed By: #### CBC, BMP ####[place] [id number] USAWhite Blood Count6.6 [CFU]/mLNormal3.8-11.6The Former[facility] Care Physician GroupComment on above:Performed By: #### CBC, BMP ####[place] [id number] USAUrinalysison 95-66-9957Qqqlvughxs (U)ClearNormal ClearThe Formerly [facility] Health Care Physician GroupComment on above:Order Comment: Name Collection Type:: Clean-Voided MidstreamPerformed By: #### UA #### [facility] [address] [place] [address] USABilirubin,UrineNegativeNormalNegativeThe Formerly [facility] Care Physician GroupComment on above:Order Comment: Name Collection Type:: Clean- Voided MidstreamPerformed By: #### UA #### [address] [address] USAColor (U)ColorlessNormalYellowThe Formerly [facility] Care Physician GroupComment on above:Order Comment: Name Collection Type:: Clean-Voided MidstreamPerformed By: #### UA #### [place] [address] USAGlucose Ql (U)NormalNormalNormalThe Formerly [facility] Care Physician GroupComment on above:Order Comment: Name Collection Type:: Clean-Voided MidstreamPerformed By: #### UA #### [place] [address] USAKetones Ql (U)NegativeNormalNegativeThe Formerly [facility] Care Physician GroupComment on above:Order Comment: Name Collection Type:: Clean- Voided MidstreamPerformed By: #### UA #### [place] [id number] USALeukocyte esterase Test strip Ql (U)NegativeNormalNegative The Former[facility] Care Physician GroupComment on above:Order Comment: Name Collection Type:: Clean-Voided MidstreamPerformed By: #### UA #### [address] [address] USANitrite,UrineNegativeNormalNegativeThe Formerly [facility] Care Physician GroupComment on above:Order Comment: Name Collection Type:: Clean-Voided MidstreamPerformed By: #### UA #### [address] [address] USAOccult Blood,UrineNegativeNormalNegativeThe Formerly [facility] Care Physician GroupComment on above:Order Comment: Name Collection Type:: Clean- Voided MidstreamResult Comment: PERFORMED BY: [place] [address] PATHOLOGIST UTILITY APPRAISER JUANA CLIFFORD M.D.Performed By: #### UA #### [place] [address] USApH (U)6.0 [pH]Normal5.0-9.0The [facility] Comment on above:Order Comment: Name Collection Type:: Clean-Voided Midstream Performed By: #### UA #### [facility] [address] [place], [place] [address] USAProtein,UrineNegativeNormalNegativeThe Formerly [facility] Care Physician GroupComment on above:Order Comment: Name Collection Type:: Clean-Voided MidstreamPerformed By: #### UA #### [place] [address] USASpecificy [place],Urine1.265Qyqiyo1.001-1.030The Formerly [facility] Care Physician GroupComment on above:Order Comment: Name Collection Type:: Clean- Voided MidstreamPerformed By: #### UA #### [place] [address] USAUrobilinogen,UrineNormalNormalNormalThe Formerly [facility] Care Physician GroupComment on above:Order Comment: Name Collection Type:: Clean- Voided MidstreamPerformed By: #### UA #### [place] [address] USAVitamin B12on 99-46-0312Mxddxivnm (Vitamin B12) [Mass/Vol] 365 pg/iODxtzgj968-161Fnb Former[facility] Care Physician GroupComment on above:Result Comment: PERFORMED BY: [place] [address] PATHOLOGIST UTILITY APPRAISER JUANA CLIFFORD M.D.Performed By: #### B12 ####[place] [address] USAA1C with Estimated Average Gluon 74-90-3340Xycunlh [Mass/Vol]137 mg/dLNormAdventHealth Winter Park Physician GroupComment on above:Result Comment: PERFORMED BY: [place] [address] PATHOLOGIST UTILITY APPRAISER JUANA CLIFFORD M.D.Performed By: #### BMP, MG, T4F, TSH3, A1C WTH eA ####[place] [id number] RJTDqZ0f (Bld) [Mass fraction]6.4 %High4.3-5.6The Former[facility] Care Physician GroupComment on above:Result Comment: Increased risk for diabetes: 5.7 - 6.4 diabetes: >6.4 glycemic control for adults with diabetes: <7.0Performed By: #### BMP, MG, T4F, TSH3, A1C WTH eA ####[place] [id number] USABasic Metabolic Panelon 67-19-6625Oveix gap [Moles/Vol]11.6 mmol/L Normal6.0-15.0The Former[facility] Care Physician GroupComment on above:Performed By: #### BMP, MG, T4F, TSH3, A1C WTH eA ####[place] [address] USACalcium [Mass/Vol]9.3 mg/dLNormal8.6-10.3The Former[facility] Care Physician GroupComment on above:Performed By: #### BMP, MG, T4F, TSH3, A1C WTH eA ####[place] [address] USAChloride [Moles/Vol]104 mmol/MRonaxp71-062Otc [facility] Comment on above:Performed By: #### BMP, MG, T4F, TSH3, A1C WTH eA ####[place] [id number] USACO2 [Moles/Vol]26.2 mmol/DPeqlml78.0-31.0The Formerly [facility] Care Physician GroupComment on above:Performed By: #### BMP, MG, T4F, TSH3, A1C WTH eA ####[place] [id number] USACreatinine [Mass/Vol]1.06 mg/dLNormal0.60-1.20 The Former[facility] Care Physician GroupComment on above:Performed By: #### BMP, MG, T4F, TSH3, A1C WTH eA ####[place] [id number] USACreatinine Clr Calc Mwhvascf32.03NormAdventHealth Winter Park Physician Group Comment on above:Performed By: #### BMP, MG, T4F, TSH3, A1C WTH eA ####[address] [place] [address] USAGFR/1.73 sq M.predicted MDRD (S/P/Bld) [Vol rate/Area]52.450 mL/min/{1.73_m2}NormalThe Formerly [facility] Care Physician GroupComment on above:Performed By: #### BMP, MG, T4F, TSH3, A1C WTH eA ####[address] [place] [address] USAGlucose [Mass/Vol]100 mg/aUZloahn44-999Oyl Formerly [facility] Care Physician GroupComment on above:Result Comment: Random Glucose Reference Range is dependent on time and content of last meal. Glucose of more than 200 mg/dL in a nonstressed, ambulatory subject supports the diagnosis of Diabetes Mellitus. ADA recommended reference rangePerformed By: #### BMP, MG, T4F, TSH3, A1C WTH eA ####[address] [place] [address] [place] Potassium [Moles/Vol]4.8 mmol/LNormal3.5-5.1The Formerly [facility] Care Physician GroupComment on above:Performed By: #### BMP, MG, T4F, TSH3, A1C WTH eA ####[address] [address] USASodium [Moles/Vol]137 mmol/YOqjmud373-832Fsj Formerly [facility] Care Physician GroupComment on above:Performed By: #### BMP, MG, T4F, TSH3, A1C WTH eA ####[address] [address] USAUrea nitrogen [Mass/Vol]29 mg/dLHigh-e Former[facility] Care Physician GroupComment on above:Performed By: #### BMP, MG, T4F, TSH3, A1C WTH eA ####[address] [address] USAFree T4 (Free Thyroxine)on 65-11-9610Ewkw T4 [Mass/Vol]1.00 ng/dLNormal 0.61-1.12The Formerly [facility] Care Physician GroupComment on above:Performed By: #### BMP, MG, T4F, TSH3, A1C WT eA ####[facility] [place] [id number] USAMagnesiumon 71-00-9873Gajxrfihp [Mass/Vol]1.8 mg/dLLow 1.9-2.7The Formerly [facility] Care Physician GroupComment on above:Performed By: #### BMP, MG, T4F, TSH3, A1C [facility] eA ####[place] [address] [place] [id number] USAThyroid Stimulating Hormoneon 64-55-3524CGM Qn4.01 m[IU]/LNormal0.45-5.33The Former[facility] Care Physician GroupComment on above:Result Comment: PERFORMED BY: [facility] [address] [place] [id number] PATHOLOGIST UTILITY APPRAISER JUANA CLIFFORD M.D.Performed By: #### BMP, MG, T4F, TSH3, A1C [facility] eA ####[place] [address] [place] [address] USAAlanine aminotransferase [Enzymatic activity/volume] in Serum or PlasmaOrdered By: Harpreet Sebastian on 20-16-1264PNH [Catalytic activity/Vol]33 U/LNormal7-52[facility]. Joseph Warren HospitalComment on above:Performed By: #### CBC, ETOH, CMP #### [facility] [address] [id number] USAAlbumin [Mass/volume] in Serum or Plasma by Bromocresol green (BCG) dye binding methoOrdered By: Harpreet Sebastian on 29-20-9271Zqrlicz BCG dye [Mass/Vol]4.1 g/dL3.5-5.7FThe University of Toledo Medical CenterAlkaline phosphatase [Enzymatic activity/volume] in Serum or PlasmaOrdered By: Harpreet Sebastian on 58-46-7436HYB [Catalytic activity/Vol]90 U/PBrwsvt44-436BupmjosgaMercy Health St. Joseph Warren HospitalComment on above:Performed By: #### CBC, ETOH, CMP #### [facility] [address] [place] [address] USAAmphetamine Screen Ql (U)Ordered By: Harpreet Sebastian on 10-71-0245Jrhlbrgcpyvj Ql (U)NegativeNegativeMercy Health St. Joseph Warren Hospital Appearance of UrineOrdered By: Harpreet Sebastian on 39-32-1572Empgpdewqw (U)Clear NormalCleOhio State Health SystemComment on above:Order Comment: Name Collection Type:: Clean-Voided MidstreamPerformed By: #### URDS, UA, UHCG #### [facility] [address] [place] [address] USAAspartate aminotransferase [Enzymatic activity/volume] in Serum or PlasmaOrdered By: Harpreet Sebastian on 22-60-7227LYK [Catalytic activity/Vol]27 U/TUedtqb61-84QycyvuwvhMercy Health St. Joseph Warren HospitalComment on above: Performed By: #### CBC, ETOH, CMP #### [facility] [address] [place] [id number] USABarbiturates [Presence] in Urine by Screen methodOrdered By: Harpreet Sebastian on 54-86-6422Mgjrqiuxqnbz Screen Ql (U)NegativeNegOhioHealth Berger HospitalBasic Metabolic Panelon 37-72-3580Ngohlgjvus Clr Calc Blpvtoxa17.91NormalThe Formerly [facility] Care Physician GroupComment on above:Order Comment: Comment Redraw to assess hyperkalemia and response to treaResult Comment: PERFORMED BY: [facility] [address] [place] [id number] PATHOLOGIST UTILITY APPRAISER JUANA CLIFFORD M.D.Performed By: #### BMP ####[place] [address] [place] [address] USAGFR/1.73 sq M.predicted MDRD (S/P/Bld) [Vol rate/Area]45.651 mL/min/{1.73_m2}NormalThe [facility] Comment on above:Order Comment: Comment Redraw to assess hyperkalemia and response to treaPerformed By: #### BMP ####[place] [id number] USABasophils [#/volume] in Blood by Automated countOrdered By: Harpreet Sebastian on 34-89-6716Caswydzex (Bld) [#/Vol]0.1 10*3/uL Normal0.0-0.2FThe University of Toledo Medical CenterComment on above:Result Comment: PERFORMED BY: [place] [address] PATHOLOGIST UTILITY APPRAISER JUANA CLIFFORD M.D.Performed By: #### CBC, ETOH, CMP #### [place] [address] USABasophils/100 leukocytes in Blood by Automated count Ordered By: Harpreet Sebastian on 32-37-0355Ynvxdwlsi/100 WBC (Bld)1.2 %Normal. [facility] Joseph Warren HospitalComment on above:Performed By: #### CBC, ETOH, CMP #### [place] [address] USABenzodiazepines Screen Ql (U)Ordered By: Harpreet Sebastian on 91-56-7805Wnjdskgbpewplbo Ql (U)NegativeNegMiami Valley HospitalBenzoylecgonine [Presence] in Urine by Screen methodOrdered By: Harpreet Sebastian on 78-26-1849Grzdfuqsszzbydx Screen Ql (U)NegativeNegMiami Valley HospitalBilirubin Test strip Ql (U)Ordered By: Harpreet Sebastian on 33-94-2520Mongxvdls Ql (U)NegativeNegMiami Valley Hospital Bilirubin.total [Mass/volume] in Serum or PlasmaOrdered By: Harpreet Sebastian on 45-97-8169Rhjhkfvpq [Mass/Vol]0.5 mg/dLNormal0.3-1.0[facility] St. Joseph Warren HospitalComment on above:Performed By: #### CBC, ETOH, CMP #### [place] [id number] USACT head/brain wo conon 86-41-8167PG head/brain wo con [facility] Main [place] [address] [place], [place] [phone] CT Scan Report Signed Patient: Lluvia Ferraro MR#: [id number] 4 : 1940 Acct:[id number] Age/Sex: 84 / F ADM Date: 10/31/24 Loc: ER Room: Type: [facility] ER Attending Dr: Copies to: Harpreet Sebastian MD Ordering Provider: Harpreet Sebastian MD Date of Service: 10/31/24 CT/CT head/brain wo con: Mental status change CT head/brain wo con 10/31/2024 6:53 PM SIGNS AND SYMPTOMS: Mental status change TECHNIQUE:Multi-detector CT axial slices of the brain were obtained without IV contrast. CT was performed with one or more of the following dose reduction techniques: Automated exposure control, adjustment of the mA and/or kV according to patient size, or use of iterative reconstruction technique. COMPARISON: 07/22/2007 FINDINGS: There is no shift of the midline structures, acute intracranial bleeding, mass effects, or evidence of acute ischemia. There is mild age-related cortical atrophy. This periventricular white matter hypoattenuation. Atherosclerotic changes are noted in the V4 segments of the vertebral arteries and intracranial segments of the internal carotid arteries. The ventricular system is normal in size. The brainstem and the cerebellum are unremarkable. Mucosal thickening is noted in the left maxillary sinus. The visualized intraorbital contents and the infratemporal soft tissues show no acute abnormality. The osseous structures in the skull base and the calvarium show no abnormality. CT/CT head/brain wo con IMPRESSION: No acute intrapelvic pathology. Chronic age-related neurodegenerative changes are noted as above. Impression dictated by: Jj Wilson M.D. 10/31/2024 7:11 PM Dictation Location: [place] [address] Transcribed By: [facility] 10/31/241910 Dictated By: Jj Wilson II, MD 10/31/241908 Signed By: 10/31/241910[facility] Physician GroupCalcium [Mass/volume] in Serum or PlasmaOrdered By: Harpreet Sebastian on 32-05-7933Cpecxrv [Mass/Vol]9.5 mg/dLNormal 8.6-10.3FThe University of Toledo Medical CenterComment on above:Order Comment: Comment Redraw to assess hyperkalemia and response to treaPerformed By: #### BMP ####[facility] [place] [address] [place] Cannabinoids [Presence] in Urine by Screen methodOrdered By: Harpreet Sebastian on 28-58-2042Xwzkdgdxhpex Screen Ql (U)NegativeNegativeMercy Health St. Joseph Warren HospitalComment on above:These are unconfirmed results and should not be used for legal purposes. Drug Cut-Off Concentration: AMPH 1000 ng/mL GERARD 200 ng/mL ABHISHEK 200 ng/mL COCM 300 ng/mL OP 300 ng/mL PCP 25 ng/mL THC 20 ng/mLCarbon dioxide, total [Moles/volume] in Serum or PlasmaOrdered By: Harpreet Sebastian on 75-61-2015XU4 [Moles/Vol]29.2 mmol/SDcebsv86.0-31.0[facility] St. Joseph Warren HospitalComment on above:Order Comment: Comment Redraw to assess hyperkalemia and response to treaPerformed By: #### BMP ####[place] [phone] USAChloride [Moles/volume] in Serum or PlasmaOrdered By: Harpreet Sebastian on 40-93-3683Ebptcjmg [Moles/Vol]102 mmol/OFjtovi29-[address] Joseph Warren HospitalComment on above:Order Comment: Comment Redraw to assess hyperkalemia and response to treaPerformed By: #### BMP ####[address] [address] USAColor of Urine by AutoOrdered By: Harpreet Sebastian on 64-22-9378Vknhf (U)Light-yellowNormalYellow [facility]. Joseph Warren HospitalComment on above:Order Comment: Name Collection Type:: Clean-Voided MidstreamPerformed By: #### URDS, UA, UHCG #### [facility] [address] [place] [id number] USAComplete Blood Count Auto Diffon 92-57-9061Rzbz Corpuscular HGB Conc32.8 g/hLGwdqvt55.0-35.0The Formerly [facility] Care Physician GroupComment on above:Performed By: #### CBC, ETOH, CMP #### [place] [address] USAMonocytes/100 WBC (Bld)20.18 %High0.00-20.00The Formerly [facility] Care Physician GroupComment on above:Result Comment: For adults in ED, MDW > 20.0 may be associated with a higher risk of sepsis during the first 12 hrs of hospital admissionPerformed By: #### CBC, ETOH, CMP #### [place] [address] USANRBC%0.1 /100{WBC}Normal0-0.5The [facility] Comment on above:Performed By: #### CBC, ETOH, CMP #### [place] [address] USAWhite Blood Count9.5 [CFU]/mLNormal3.8-11.6The Formerly [facility] Care Physician GroupComment on above:Performed By: #### CBC, ETOH, CMP #### [place] [address] USAComprehensive Metabolic Panelon 32-41-0503Kgalsqw [Mass/Vol]4.1 g/dLNormal3.5-5.7The Formerly [facility] Care Physician GroupComment on above: Performed By: #### CBC, ETOH, CMP #### [place] [address] USAAnion gap [Moles/Vol]10.9 mmol/LNormal6.0-15.0The Formerly [facility] Care Physician GroupComment on above:Performed By: #### CBC, ETOH, CMP #### [place] [address] USACalcium [Mass/Vol]10.3 mg/dLNormal8.6-10.3The Formerly [facility] Care Physician GroupComment on above:Performed By: #### CBC, ETOH, CMP #### [place] [address] USAChloride [Moles/Vol]99 mmol/WAmyhrc45-782Cdw Former[facility] Care Physician GroupComment on above:Performed By: #### CBC, ETOH, CMP #### [place] [address] USACO2 [Moles/Vol]30.9 mmol/CKyrpmn78.0-31.0The Formerly [facility] Care Physician GroupComment on above:Performed By: #### CBC, ETOH, CMP #### [facility] [address] [place] [address] USACreatinine [Mass/Vol]1.32 mg/dLHigh0.60-1.20The Formerly [facility] Care Physician GroupComment on above:Performed By: #### CBC, ETOH, CMP #### [place] [address] USACreatinine Clr Calc Oepvvgkc01.08NormalThe Formerly [facility] Care Physician GroupComment on above:Result Comment: PERFORMED BY: [place] [address] PATHOLOGIST UTILITY APPRAISER JUANA CLIFFORD M.D.Performed By: #### CBC, ETOH, CMP #### [place] [address] USAGFR/1.73 sq M.predicted MDRD (S/P/Bld) [Vol rate/Area] 40.310 mL/min/{1.73_m2}NormalThe [facility] Physician [facility] HospitalComment on above: Performed By: #### CBC, ETOH, CMP #### [place] [address] USAGlucose [Mass/Vol]100 mg/vVMpzkqc73-575Puc [facility] Physician [facility] HospitalComment on above:Result Comment: Random Glucose Reference Range is dependent on time and content of last meal. Glucose of more than 200 mg/dL in a nonstressed, ambulatory subject supports the diagnosis of Diabetes Mellitus. ADA recommended reference rangePerformed By: #### CBC, ETOH, CMP #### [place] [address] USAPotassium [Moles/Vol]5.8 mmol/LHigh3.5-5.1The Formerly [facility] Care Physician GroupComment on above:Performed By: #### CBC, ETOH, CMP #### [place] [address] USASodium [Moles/Vol]135 mmol/VEpn666-817Vki [facility] Physician GroupComment on above:Performed By: #### CBC, ETOH, CMP #### [facility] [address] [place] [address] USAUrea nitrogen [Mass/Vol]36 mg/dLHigh7-e [facility] Physician GroupComment on above:Performed By: #### CBC, ETOH, CMP #### [facility] [address] [place] [address] USACreatinine [Mass/volume] in Serum or PlasmaOrdered By: aHrpreet Sebastian on 04-38-3258Ghqmrcbuuo [Mass/Vol]1.19 mg/dLNormal0.60-1.[address] [facility] Warren HospitalComment on above:Order Comment: Comment Redraw to assess hyperkalemia and response to treaPerformed By: #### BMP ####[facility] [address] [place] [address] USADrug Screen,Urineon 74-45-4156Drpfesplkcs Screen,UrineNegativeNormalNegativeThe Former[facility] Physician GroupComment on above:Performed By: #### URDS, UA, UHCG #### [facility] [address] [place] [address] USABarbiturate Screen,UrineNegativeNormalNegativeThe Former[facility] Physician GroupComment on above:Performed By: #### URDS, UA, UHCG #### [facility] [address] [place] [address] USABenzodiazepines Screen,UrineNegativeNormalNegativeThe Former[facility] Physician GroupComment on above:Performed By: #### URDS, UA, UHCG #### [facility] [address] [place] [id number] USACannabinoid Screen,UrineNegativeNormalNegativeThe Formerly [facility] Care Physician GroupComment on above:Result Comment: These are unconfirmed results and should not be used for legal purposes. Drug Cut-Off Concentration: AMPH 1000 ng/mL GERARD 200 ng/mL ABHISHEK 200 ng/mL COCM 300 ng/mL OP 300 ng/mL PCP 25 ng/mL THC 20 ng/mL PERFORMED BY: [place] [address] PATHOLOGIST UTILITY APPRAISER JUANA CLIFFORD M.D.Performed By: #### URDS, UA, UHCG #### [facility] [address] [place] [id number] USACocaine Screen,UrineNegativeNormalNegativeThe Formerly [facility] Physician GroupComment on above:Performed By: #### URDS, UA, UHCG #### [facility] [address] [place] [address] USAOpiate Screen,UrineNegativeNormalNegativeThe Former[facility] Physician GroupComment on above:Performed By: #### URDS, UA, UHCG #### [facility] [address] [place] [id number] USAPhencyclidine Screen,UrineNegativeNormalNegativeThe Formerly [facility] Physician GroupComment on above:Performed By: #### URDS, UA, UHCG #### [facility] [address] [place] [address] USAECG 12 lead ECGon 16-98-4185BAC 12 lead ECGSELECT [facility] Main [place] [address] [place] [address] Electrocardiograph Report Signed Patient: Lluvia Ferraro MR#: [id number] 4 : 1940 Acct:[id number] Age/Sex: 84 / F ADM Date: 10/31/24 Loc: Room: [address] [place] [address] Type: ADM IN Attending Dr: Stephan Dawn MD Ordering Provider: Harpreet Sebastian MD Date of Service: 10/31/24 ECG/ECG 12 lead ECG: Psychiatric Symptoms Copies to: Test Reason : Blood Pressure : 185/84 mmHG Vent. Rate : 70 BPM Atrial Rate : 63 BPM P-R Int : * ms QRS Dur : 114 ms QT Int : 410 ms P-R-T Axes : * 124 53 degrees QTcB Int : 442 ms Electronic ventricular pacemaker Abnormal ECG When compared with ECG of 03-Jun-2010 12:01, Electronic ventricular pacemaker replaced ectopic atrial rhythm Confirmed by LAZARO ELISE [facility] ([id number]) on 11/01/2024 4:58:00 PM Referred By: Electronically Signed By: LIDIA WILLIS MD [facility] Transcribed By: MUS Signed By Lidia Willis MD, [facility] 11/01/24 1658[facility] Physician GroupEosinophils [#/volume] in Blood by Automated countOrdered By: Harpreet Sebastian on 84-19-7876Zdlbknxvdyi (Bld) [#/Vol]0.3 10*3/uLNormal0.0-0.45[facility] Warren HospitalComment on above:Performed By: #### CBC, ETOH, CMP #### [facility] [address] [place] [address] USAEosinophils/100 leukocytes in Blood by Automated count Ordered By: Harpreet Sebastian on 22-68-7591Hxgjxxfcctn/100 WBC (Bld)2.8 %Normal. [facility] HospitalComment on above:Performed By: #### CBC, ETOH, CMP #### [place] [address] USAErythrocyte distribution width [Ratio] by Automated count Ordered By: Harpreet Sebastian on 08-97-5230Eqhzqyfmmzr distribution width (RBC) [Ratio]16.4 %High11.9-15.3FThe University of Toledo Medical CenterComment on above: Performed By: #### CBC, ETOH, CMP #### [place] [address] USAErythrocytes [#/volume] in Blood by Automated countOrdered By: Harpreet Sebastian on 36-34-2475RYC (Bld) [#/Vol]4.27 10*6/uLNormal3.60-5.[address] [facility] Warren HospitalComment on above:Performed By: #### CBC, ETOH, CMP #### [place] [id number] USAEthanol [Mass/volume] in Serum or PlasmaOrdered By: Harpreet Sebastian on 95-68-9576Sutxhsu [Mass/Vol]mg/dLNormalMercy [facility] Warren HospitalComment on above:Performed By: #### CBC, ETOH, CMP #### [place] [address] USAEthyl Alcohol Profileon 40-58-8503Qyqkvrw EthanolNot performedNoAtrium Health Physician GroupComment on above:Result Comment: PERFORMED BY: [facility] [address] [id number] PATHOLOGIST UTILITY APPRAISER JUANA CLIFFORD M.D.Performed By: #### CBC, ETOH, CMP #### [facility] [address] [place] [address] USAGlomerular filtration rate [Volume Rate/Area] in Serum, Plasma or Blood by CreatinineOrdered By: Harpreet Sebastian on 41-27-6401Rgqoswaxor filtration rate [Volume Rate/Area] in Serum, Plasma or Blood by Znswucgyzp09.651 mL/MinMercy Health St. Joseph Warren HospitalGlucose [Mass/volume] in Serum or Plasma Ordered By: Harpreet Sebastian on 98-73-1809Npbwpqd [Mass/Vol]131 mg/sNUhur10-[address] [facility] Warren HospitalComment on above:ADA recommended reference rangeRandom Glucose Reference Range is dependent on time and content of last meal. Glucose of more than 200 mg/dL in a nonstressed, ambulatory subject supports the diagnosisof Diabetes Mellitus.Order Comment: Comment Redraw to assess hyperkalemia and response to treaResult Comment: Random Glucose Reference Range is dependent on time and content of last meal. Glucose of more than 200 mg/dL in a nonstressed, ambulatory subject supports the diagnosis of Diabetes Mellitus. ADA recommended reference rangePerformed By: #### BMP ####[facility] [address] [place] [address] USAGlucose [Mass/volume] in Urine by Test stripOrdered By: Harpreet Sebastian on 20-15-7857Ukqbdzu Test strip (U) [Mass/Vol]Normal mg/dLNormalMercy Health St. Joseph Warren HospitalHCG ( test) IA.rapid Ql (U)Ordered By: Harpreet Sebastian on 97-68-1257CXX ( test) Ql (U)NegativeMercy Health St. Joseph Warren HospitalHCG,Urineon 13-34-0128Gpvo HCG ( test) Ql (U)NegativeNoAtrium Health Physician GroupComment on above:Order Comment: Name Collection Type:: Clean-Voided MidstreamResult Comment: PERFORMED BY: [place] [address] PATHOLOGIST UTILITY APPRAISER JUANA CLIFFORD M.D.Performed By: #### URDS, UA, UHCG #### [place] [address] USAHematocrit [Volume Fraction] of Blood by Automated count Ordered By: Harpreet Sebastian on 34-88-2263Zvhxiujyvy (Bld) [Volume fraction]36.7 % Qdejtv29.0-46.4FThe University of Toledo Medical CenterComment on above:Performed By: #### CBC, ETOH, CMP #### [place] [address] USAHemoglobin Test strip Ql (U)Ordered By: Harpreet Sebastian on 56-88-1792Lkurjejrdo Ql (U)NegativeNegMiami Valley Hospital Hemoglobin [Mass/volume] in BloodOrdered By: Harpreet Sebastian on 10-31-2024 Hemoglobin (Bld) [Mass/Vol]12.0 g/yQTzyxyo03.8-15.4FThe University of Toledo Medical CenterComment on above:Performed By: #### CBC, ETOH, CMP #### [place] [address] USAKetones [Presence] in Urine by Test stripOrdered By: Harpreet Sebastian on 95-70-2356Sbltuwl Ql (U)NegativeTriHealth Good Samaritan HospitalComment on above:Order Comment: Name Collection Type:: Clean- Voided MidstreamPerformed By: #### URDS, UA, UHCG #### [place] [id number] USALeukocyte esterase [Presence] in Urine by Test strip Ordered By: Harpreet Sebastian on 75-89-4868Qbittfgkt esterase Test strip Ql (U) NegativeTriHealth Good Samaritan HospitalComment on above:Order Comment: Name Collection Type:: Clean-Voided MidstreamPerformed By: #### URDS, UA, UHCG #### [place] [id number] USALeukocytes [#/volume] corrected for nucleated erythrocytes in Blood by Automated counOrdered By: Harpreet Sebastian on 79-86-7196QIW corrected for nucl RBC Auto (Bld) [#/Vol]9.5 10*3/uL3.8-11.6FThe University of Toledo Medical CenterLeukocytes [#/volume] in Blood by Automated countOrdered By: Harpreet Sebastian on 09-16-2431AQQ (Bld) [#/Vol]9.5 10*3/uLNormal3.8-11.6FThe University of Toledo Medical CenterComment on above:Performed By: #### CBC, ETOH, CMP #### [facility] [address] [place] [address] USALymphocytes [#/volume] in Blood by Automated countOrdered By: Harpreet Sebastian on 23-51-7097Zufonemwwqp (Bld) [#/Vol]1.3 10*3/uLNormal1.00-4.[address] [facility] Warren HospitalComment on above:Performed By: #### CBC, ETOH, CMP #### [facility] [address] [place], [place] [address] USALymphocytes/100 leukocytes in Blood by Automated count Ordered By: Harpreet Sebastian on 50-54-6689Mfuhqyuimho/100 WBC (Bld)13.3 %Normal. [facility] Warren HospitalComment on above:Performed By: #### CBC, ETOH, CMP #### [place] [id number] [facility] [place] [Entitic mass] by Automated countOrdered By: Harpreet Sebastian on 86-29-7007KON (RBC) [Entitic mass]28.2 dfXhllrj55.7-34.3FThe University of Toledo Medical CenterComment on above:Performed By: #### CBC, ETOH, CMP #### [facility] [address] [place], [place] [address] [facility]HC Auto (RBC) [Mass/Vol]Ordered By: Harpreet Sebastian on 74-63-1641XTVO (RBC) [Mass/Vol]32.8 g/dL32.0-35.0[facility] Warren HospitalMCV [Entitic volume] by Automated countOrdered By: Harpreet Sebastian on 45-08-8576OOX (RBC) [Entitic vol]85.9 mSXwupiz19-894PehhnrckpMercy Health St. Joseph Warren HospitalComment on above:Performed By: #### CBC, ETOH, CMP #### [place] [address] USAMonocyte distribution width [Entitic volume] in Blood by AutomatedOrdered By: Harpreet Sebastian on 76-69-6726Fxbplyrz distribution width Auto (Bld) [Entitic vol]20.18 %High0.00-20.00[facility] Warren HospitalComment on above:For adults in ED, MDW > 20.0 may be associated with a higher risk of sepsis during the first 12 hrs of hospital admissionMonocytes [#/volume] in Blood by Automated countOrdered By: Harpreet Sebastian on 43-73-3790Egfpppmls (Bld) [#/Vol]1.2 10*3/uLHigh0.0-0.8[facility] Warren HospitalComment on above: Performed By: #### CBC, ETOH, CMP #### [address] [address] USAMonocytes/100 leukocytes in Blood by Automated count Ordered By: Harpreet Sebastian on 43-79-2628Rjyscrpjh/100 WBC (Bld)12.3 %Normal. [facility] Warren HospitalComment on above:Performed By: #### CBC, ETOH, CMP #### [address] [address] USANeutrophils [#/volume] in Blood by Automated countOrdered By: Harpreet Sebastian on 90-90-1282Lpophfyuifd (Bld) [#/Vol]6.7 10*3/uLNormal1.8-7.[address] [facility] Warren HospitalComment on above:Performed By: #### CBC, ETOH, CMP #### [address] [address] USANeutrophils/100 leukocytes in Blood by Automated count Ordered By: Harpreet Sebastian on 71-87-3898Iziopmjrzyz/100 WBC (Bld)70.4 %Normal. [facility] HospitalComment on above:Performed By: #### CBC, ETOH, CMP #### [facility] [address] [place] [address] USANitrite Test strip Ql (U)Ordered By: Harpreet Sebastian on 36-76-0642Tzwmbnc Ql (U)NegativeNegMiami Valley HospitalNo Panel InformationOrdered By: Harpreet Sebastian on 62-98-0973Ohkqirth Creatinine Clearance (Chem38.91[facility] Warren HospitalNucleated erythrocytes [Presence] in Blood by Automated countOrdered By: Harpreet Sebastian on 10-31-2024 Nucleated RBC Auto Ql (Bld)0.1 /100{WBC}0-0.5FThe University of Toledo Medical Center Opiates [Presence] in Urine by Screen methodOrdered By: Harpreet Sebastian on 22-32-6076Zbidshh Screen Ql (U)NegativeNegMiami Valley Hospital Phencyclidine Screen Ql (U)Ordered By: Harpreet Sebastian on 89-48-4264Bxazirmyrdchi Ql (U)NegativeNegMiami Valley HospitalPlatelet mean volume [Entitic volume] in Blood by Automated countOrdered By: Harpreet Sebastian on 74-52-2545Yxxcoxwf mean volume (Bld) [Entitic vol]7.2 fLNormal6.3-10.7FThe University of Toledo Medical CenterComment on above:Performed By: #### CBC, ETOH, CMP #### [facility] [address] [place] [address] USAPlatelets [#/volume] in Blood by Automated countOrdered By: Harpreet Sebastian on 67-59-7775Qcokaexya (Bld) [#/Vol]352 10*3/cJRfdlar415-[address] [facility] Warren HospitalComment on above:Performed By: #### CBC, ETOH, CMP #### [facility] [address] [place] [address] USAPotassium [Moles/volume] in Serum or PlasmaOrdered By: Harpreet Sebastian on 15-40-1436Chfyzdray [Moles/Vol]4.6 mmol/LNormal3.5-5.1FThe University of Toledo Medical CenterComment on above:Order Comment: Comment Redraw to assess hyperkalemia and response to treaPerformed By: #### BMP ####[facility] [address] [place] [id number] USAProtein Test strip (U) [Mass/Vol]Ordered By: Harpreet Sebastian on 66-02-3459Qvamqqg (U) [Mass/Vol]Negative NegativeMercy Health St. Joseph Warren HospitalProtein [Mass/volume] in Serum or PlasmaOrdered By: Harpreet Sebastian on 84-06-0484Dezqxgo [Mass/Vol]7.6 g/dLNormal 6.4-8.9[facility] Warren HospitalComment on above:Performed By: #### CBC, ETOH, CMP #### [facility] [address] [place] [address] USASerum globulin measurement by calculation (mass/volume) Ordered By: Harpreet Sebastian on 61-42-8247Yklwraph (S) [Mass/Vol]3.5 g/dLNormal [facility] HospitalComment on above:Performed By: #### CBC, ETOH, CMP #### [facility] [address] [place] [address] USASerum or plasma albumin/globulin mass ratioOrdered By: Harpreet Sebastian on 79-77-9779Tajadqa/Globulin [Mass ratio]1.2 {ratio}Normal [facility] HospitalComment on above:Performed By: #### CBC, ETOH, CMP #### [facility] [address] [place] [id number] USASerum or plasma anion gap determinationOrdered By: Harpreet Sebastian on 19-48-6616Gwonb gap [Moles/Vol]9.4 mmol/LNormal6.0-15.0[facility] HospitalComment on above:Order Comment: Comment Redraw to assess hyperkalemia and response to treaPerformed By: #### BMP ####[facility] [place] [address] USASerum or plasma ethanol measurement (mass/volume)Ordered By: Harpreet Sebastian on 92-69-9378Uudiolv [Mass/Vol]TNPMercy Health St. Joseph Warren HospitalComment on above:Test not performedSodium [Moles/volume] in Serum or PlasmaOrdered By: Harpreet Sebastian on 40-34-6689Seruvh [Moles/Vol]136 mmol/UOxyrpo122-892SkbdasaqbMercy Health St. Joseph Warren HospitalComment on above:Order Comment: Comment Redraw to assess hyperkalemia and response to treaPerformed By: #### BMP ####[facility] [place] [address] USASpecific gravity Test strip (U) [Rel density] Ordered By: Harpreet Sebastian on 04-73-3412Nbxbbaeh gravity (U) [Rel density]1.018 1.001-1.030[facility] HospitalUrea nitrogen [Mass/volume] in Serum or PlasmaOrdered By: Harpreet Sebastian on 53-61-4473Ltep nitrogen [Mass/Vol]34 mg/dL High7-25[facility] St[facility] HospitalComment on above:Order Comment: Comment Redraw to assess hyperkalemia and response to treaPerformed By: #### BMP ####[place] [address] [place] Urinalysison 78-89-3124Emwvvclra,UrineNegativeNormalNegativeHca Florida Jfk North Hospital Physician GroupComment on above:Order Comment: Name Collection Type:: Clean- Voided MidstreamPerformed By: #### URDS, UA, UHCG #### [place] [address] USAGlucose Ql (U)NormalNormalNormAdventHealth Winter Park Physician GroupComment on above:Order Comment: Name Collection Type:: Clean-Voided MidstreamPerformed By: #### URDS, UA, UHCG #### [facility] [address] [place] [id number] USANitrite,UrineNegativeNormalNegativeHca Florida Jfk North Hospital Physician GroupComment on above:Order Comment: Name Collection Type:: Clean-Voided MidstreamPerformed By: #### URDS, UA, UHCG #### [place] [id number] USAOccult Blood,UrineNegativeNormalNegativeHca Florida Jfk North Hospital Physician GroupComment on above:Order Comment: Name Collection Type:: Clean- Voided MidstreamPerformed By: #### URDS, UA, UHCG #### [facility] [address] [place] [address] USAProtein,UrineNegativeNormalNegativeThe Formerly [facility] Care Physician GroupComment on above:Order Comment: Name Collection Type:: Clean-Voided MidstreamPerformed By: #### URDS, UA, UHCG #### [place] [address] USASpecificy [place],Urine1.056Mepepx3.001-1.030The [facility] Care Physician GroupComment on above:Order Comment: Name Collection Type:: Clean- Voided MidstreamPerformed By: #### URDS, UA, UHCG #### [place] [address] USAUrobilinogen,UrineNormalNormalNormalThe [facility]ly [facility] Health Care Physician GroupComment on above:Order Comment: Name Collection Type:: Clean- Voided MidstreamPerformed By: #### URDS, UA, UHCG #### [place] [address] USAUrobilinogen Test strip (U) [Mass/Vol]Ordered By: Harpreet Sebastian on 55-70-1551Nfojgebtlpky (U) [Mass/Vol]Normal mg/dLNormalMercy Health St. Joseph Warren HospitalpH of Urine by Test stripOrdered By: Harpreet Sebastian on 03-64-7341pV (U)5.5 [pH]Normal5.0-9.0[facility] HospitalComment on above:Order Comment: Name Collection Type:: Clean-Voided MidstreamPerformed By: #### URDS, UA, UHCG #### [place] [address] USAALL CBC WITH AUTO DIFFon 19-95-6840GKMMIYACA ABSOLUTE AUTO 0.1NOMS HealthcareBasophils/100 WBC (Bld)0.5 %0.2 - 2.0 %[facility] Eosinophils/100 WBC (Bld)2.7 %0.9 - 7.0 %NOMS HealthcareErythrocyte distribution width (RBC) [Ratio]14.5 %11.0 - 15.0 %NOMS HealthcareHematocrit (Bld) [Volume fraction]38.9 %36.0 - 48.0 %[facility] HospitalHemoglobin (Bld) [Mass/Vol]11.9 g/dL Low12.0 - 16.0 g/dLNOCrittenton Behavioral HealthIMMATURE GRANULOCYTES ABS AUTO0.05HighNOVT HealthcareImmature granulocytes/100 WBC (Bld)0.5 %0.0 - 0.5 %[facility] Interpretation and review of laboratory resultsAbnormalPershing Memorial Hospital LYMPHOCYTES ABSOLUTE AUTO1.7NOCrittenton Behavioral HealthLymphocytes/100 WBC (Bld)17.6 %Low 20.5 - 60.0 %[facility]Po[facility] HospitalH (RBC) [Entitic mass]28.1 pg26.7 - 34.0 pgNOCapital Region Medical CenterHC (RBC) [Mass/Vol]30.6 g/dL29.9 - 35.2 g/dLPershing Memorial HospitalMCV (RBC) [Entitic vol]91.7 fL81.0 - 99.0 fLPershing Memorial HospitalMONOCYTES ABSOLUTE AUTO0.7NOVT HealthcareMonocytes/100 WBC (Bld)7.2 %1.7 - 12.0 %[facility] HospitalNEUTROPHILS ABSOLUTE AUTO6.7HighNOVT HealthcareNeutrophils/100 WBC (Bld)71.5 %43.0 - 75.0 % [facility] Memorial HospitalPlatelet mean volume (Bld) [Entitic vol]9.5 fL9.5 - 13.5 fLPershing Memorial HospitalTBH EO #0.3NOMS [facility] HamiltonTB [id number] [facility] RBC4.24NOMS [facility] WBC9.4NOCrittenton Behavioral HealthCLINISYNCNOMS [facility] HamiltonALL URINALYSISon 65-34-2349NZCBRFZSP URINENegativeNEGATIVENOCrittenton Behavioral HealthBLOOD URINENegative NEGATIVEPershing Memorial HospitalClarity (U)CLEARCLEARNOVT HealthcareColor (U)LT. YELLOW YELLOWNOVT HealthcareGLUCOSE URINE UANegativeNEGATIVE mg/dLPershing Memorial Hospital Interpretation and review of laboratory resultsAbnormalNOVT HealthcareKetones Ql (U)NegativeNEGATIVE mg/dLNOVT HealthcareLeukocyte esterase Test strip Ql (U) NegativeNEGATIVENOVT HealthcareNITRITE URINENegativeNEGATIVENOVT HealthcarepH (U)7.0 [pH]5.0 - 9.0NOVT HealthcarePROTEIN URINENegativeNEG/TRACE mg/dLNOVT HealthcareSPECIFIC GRAVITY URINE<=1.005Tjdobfes6.005 - 1.025N[facility] UROBILINOGEN URINE0.2 EU/dL0.2 - 1.0 EU/dLNOVT HealthcareCLINISYNCNOMS HealthcareUrine Cultureon 40-48-8690Bfywsyas identified Cx Nom (U)30,000 colonies/ml mixed bacterial skin contaminants 2 Days PERFORMED BY: [facility] [address] [place] [address] PATHOLOGIST UTILITY APPRAISER JUANA CLIFFORD M.D.NormalHca Florida Jfk North Hospital Physician GroupComment on above: Performed By: #### CUU ####[facility] [address] [place] [address] USAUrine cultureOrdered By: Ole Yang on 09-26-2024 Bacteria identified Cx Nom (U)[address] [facility] Hospital36on 75-18-662334MncjpMD Pita Rivera [place] Good lipids and AST ALT. Continue current medication. Recheck in 6 months Advised patient of lab results per Dr. Sanchez. Patient verbalized understanding. NormalUnMercy Health St. Vincent Medical CenterOrders Onlyon 82-26-4151Gheezd Only [id number] Lluvia Ferraro 1940 F Date Provider Department Center 09/21/2024 JOZEFCKKEANU Oh [facility] CARD UT HeartVAS Family History Problem Relation Age of Onset Colon cancer Father Coronary artery disease Brother Hypertension Brother Kidney cancer Brother Family Status - Relation Status Age at Father BrotherNormalUniversUniversity Hospitals Conneaut Medical Center36on 79-16-050890Gloezuecc lab results from 08/18/2024: MD Pita Rivera MA Good lipids and AST ALT. Continue current medication. Recheck in 6 monthsNoal Paulding County HospitalALL LIPID PROFILE (FASTING)on 30-65-9220QUWU HDL UDTBH2NKXW HealthcareComment on above:3.3 - 4.4 LOW RISK 4.4 - 7.1 AVERAGE RISK 7.1 - 11.0 MODERATE RISK >11.0 HIGH RISK Cholesterol [Mass/Vol]110 mg/dLNINF - 200 mg/dLNOVT HealthcareCholesterol in HDL [Mass/Vol]54 mg/dL40 - 60 mg/dLNOVT HealthcareComment on above:> or =60 mg/dl - LOW CARDIOVASCULAR RISK <40 mg/dl - HIGH CARDIOVASCULAR RISK Magnesium [Mass/Vol]45 mg/dLNOVT HealthcareComment on above:<100 mg/dl OPTIMAL 100-129 mg/dl NEAR OR ABOVE OPTIMAL 130-159 mg/dl BORDERLINE HIGH 160-189 mg/dl HIGH >190 mg/dl VERY HIGH Magnesium [Mass/Vol]11 mg/dLNOVT HealthcareTriglyceride [Mass/Vol]55 mg/dLNINF - 150 mg/dLNOVT HealthcareCCF Jessie 12-75-0010JHO [Catalytic activity/Vol]24 U/L 14 - 59 U/LNOMS HealthcareCCF Kenneth 85-23-5585EGE [Catalytic activity/Vol]23 U/L 15 - 37 U/LNOMS HealthcareNo Panel Informationon 70-28-9657PMEJBIYADVWGB HealthcareOffice Visiton 78-40-2984Nagjpw-up [id number] JasmineLluvia Sergio 1940 F Date Provider Department Center 08/11/2024 [address]-GAOYXOCLAUDIO SANCHEZ ISABELLE Fuller Family History Problem Relation Age of Onset Colon cancer Father Coronary artery disease Brother Hypertension Brother Kidney cancer Brother Family Status - Relation Status Age at Father Brother Level of Service:[address] [place] OFFICE/OUTPATIENT ESTABLISHED MOD MDM 30 MIN Reason for Visit and Comments: Atrial Fibrillation [80] Congestive Heart Failure [127] - She was discharged from [facility] a few weeks ago for UTI and NSTEMI. Cardiomyopathy [104] - Due for device check in Jan 2025 - was interrogated a few weeks ago. Coronary Artery Disease [187] Hypertension [353668] Hyperlipidemia [182] Shortness of Breath [839306] Edema [[id number]] - Had RX for Bumex to use PRN but daughter states she hasn't taken it in over 2 years. frequent falls [Other] - Says she fell 3-4 times last month.[facility] Conneaut Medical CenterURINE CULTURE - FRon 18-99-4494Zerznvhzlzxvdg and review of laboratory resultsAbnormShriners Hospitals for Children - PhiladelphiaURINE CULTURE - [facility] [place] Urine Culture - [facility] Testing performed at [facility] NOMS HealthcareURINE CULTURE - [id number] [place], [place] [address]ZYUA HealthcareURINE CULTURE - [facility] O:ESCCOL Isolated NOMS HealthcareURINE CULTURE - [facility] Urine Culture - [facility] Dunn Count NOMS HealthcareURINE CULTURE - [facility]>100,000CFU/mlNOMS HealthcareURINE CULTURE - [facility] Organism: 1.1 Antibiotic Interpretation SYLVIA Status NOMS HealthcareURINE CULTURE - FRMCAmikacin S FSusceptibleNOMS HealthcareURINE CULTURE - FRMCAmoxicillin/Clavulanate S FSusceptibleNOMS HealthcareURINE CULTURE - FRMCAmpicillin S FSusceptibleNOMS HealthcareURINE CULTURE - FRMCAztreonam S F SusceptibleNOMS HealthcareURINE CULTURE - FRMCCeftazidime S FSusceptibleNOMS HealthcareURINE CULTURE - FRMCCeftazidime/Avibactam S FSusceptibleNOMS HealthcareURINE CULTURE - FRMCCeftolozane/Tazobactam S FSusceptibleNOMS HealthcareURINE CULTURE - FRMCCiprofloxacin S FSusceptibleNOMS HealthcareURINE CULTURE - FRMCErtapenem S FSusceptibleNOMS HealthcareURINE CULTURE - [facility] Gentamicin S FSusceptibleNOMS HealthcareURINE CULTURE - FRMCLevofloxacin S F SusceptibleNOMS HealthcareURINE CULTURE - FRMCMeropenem S FSusceptibleNOMS HealthcareURINE CULTURE - FRMCMeropenem/Vaborbactam S FSusceptibleNOMS HealthcareURINE CULTURE - FRMCNitrofurantoin S FSusceptibleNOMS HealthcareURINE CULTURE - FRMCTetracycline S FSusceptibleNOMS HealthcareURINE CULTURE - [facility] Tigecycline S FSusceptibleNOMS HealthcareURINE CULTURE - FRMCTobramycin S F SusceptibleNOMS HealthcareURINE CULTURE - FRMCAmpicillin/Sulbactam S F SusceptibleNOMS HealthcareURINE CULTURE - FRMCCefazolin S FSusceptibleNOMS HealthcareURINE CULTURE - FRMCCefepime S FSusceptibleNOMS HealthcareURINE CULTURE - FRMCCeftriaxone S FSusceptibleNOMS HealthcareURINE CULTURE - [facility] Cefuroxime S FSusceptibleNOMS HealthcareURINE CULTURE - [facility] Piperacillin/Tazobactam S FSusceptibleNOMS HealthcareURINE CULTURE - [facility] Trimethoprim/Sulfa R FResistantNOMS HealthcareCLINISYNPrisma Health Greenville Memorial HospitalUrine Cultureon 83-38-1514Eqrnbwns identified Cx Nom (U)ORGANISM: Escherichia coli (O:ESCCOL) Dunn Count >100,000 Aerobic SYLVIA Charge (NMIC56) SUSCEPTIBILITY ORGANISM: O:ESCCOL ANTIBIOTIC INTERPRETATION SYLVIA Amikacin [...] <4 Tigecycline S <2 Tobramycin S <2 Trimethoprim/Sulfamethoxazole R >2 S = SUSCEPTIBLE I = [...] RESISTANT TO ALL B-LACTAM DRUGS. PERFORMED BY: [place] [address] PATHOLOGIST UTILITY APPRAISER JUANA CLIFFORD M.D.[facility] Physician GroupComment on above: Performed By: #### CUU #### [place] [address] USAUrine cultureOrdered By: Luis E Soares on 07-22-2024 Bacteria identified Cx Nom (U)Escherichia coliAbnormalMercy Health St. Joseph Warren HospitalOrders Onlyon [id number] [id number] Lluvia Ferraro 1940 F Date Provider Department [place] 07/21/2024 HARI MCLEOD [facility] CARD UT HeartVAS Family History Problem Relation Age of Onset Colon cancer Father Coronary artery disease Brother Hypertension Brother Kidney cancer Brother Family Status - Relation Status Age at Father BrotherNormalUniversUniversity Hospitals Conneaut Medical CenterBASAINT JOSEPH BEREA METABOLIC PANELon 25-08-0413Juahlat [Mass/Vol]8.9 mg/dLNormal8.6-10.4Quest DiagnosticsComment on above:Performed By: #### 6399, 53131, 496, 7600 #### [facility] [place] [address] Non Destructive Testing Specialist: Robbie Garnica MDChloride [Moles/Vol]108 mmol/QBimjzc58-108 Quest DiagnosticsComment on above:Performed By: #### 6399, 88854, 496, 7600 #### [facility] [place] [address] Non Destructive Testing Specialist: Robbie Garnica MDCO2 [Moles/Vol]26 mmol/SSnioig49-94Znckt DiagnosticsComment on above:Performed By: #### 6399, 55848, 496, 7600 #### [facility] [place] [address] Non Destructive Testing Specialist: Robbie BUCKLEYreatinine [Mass/Vol]1.15 mg/dLHigh0.60-0.95 Quest DiagnosticsComment on above:Performed By: #### 6399, 01659, 496, 7600 #### [facility] [place] [address] Non Destructive Testing Specialist: Robbie Garnica MDGFR/1.73 sq M.predicted among non-blacks MDRD (S/P/Bld) [Vol rate/Area]48 mL/min/{1.73_m2}Low> OR = 60Quest DiagnosticsComment on above:Performed By: #### 6399, 93231, 496, 7600 #### [facility] of [address], [address] [place] [address] Non Destructive Testing Specialist: Robbie Garnica MDGlucose [Mass/Vol]96 mg/pWTzsbqb85-32Grqwc DiagnosticsComment on above:Result Comment: Fasting reference intervalPerformed By: #### 6399, 92627, 496, 7600 #### [facility] of [address], [address] [place] [address] Non Destructive Testing Specialist: Robbie Garnica MDPotassium [Moles/Vol]5.1 mmol/LNormal3.5-5.3 Quest DiagnosticsComment on above:Performed By: #### 6399, 41220, 496, 7600 #### [facility] of [address], [address] [place] [address] Non Destructive Testing Specialist: Robbie Garnica MDSodium [Moles/Vol]142 mmol/ISdvvut709-640Rnlvv DiagnosticsComment on above:Performed By: #### 6399, 09397, 496, 7600 #### [facility] of [address], [address] [place] [address] Non Destructive Testing Specialist: Robbie Garnica MDUrea nitrogen [Mass/Vol]33 mg/dLHigh7-25Quest DiagnosticsComment on above:Performed By: #### 6399, 35365, 496, 7600 #### [facility] of [address], [address] [place] [address] Non Destructive Testing Specialist: Robbie Garnica MDUrea nitrogen/Creatinine [Mass ratio]29 mg/mg High6-22Quest DiagnosticsComment on above:Performed By: #### 6399, 42086, 496, 7600 #### [facility] of [address], [address] [place] [address] Non Destructive Testing Specialist: Robbie Garnica MDCBC (INCLUDES DIFF/PLT)on 57-19-3767Ptjpqbrnq (Bld) [#/Vol]0.039 10*3/uLNormal0-200Quest DiagnosticsComment on above:Performed By: #### 6399, 36357, 496, 7600 #### [facility] of [place] [address] Non Destructive Testing Specialist: Robbie Garnica MDBasophils/100 WBC (Bld)0.6 %NormalQuest DiagnosticsComment on above:Performed By: #### 6399, 01723, 496, 7600 #### [facility] of [place] [address] Non Destructive Testing Specialist: Robbie Garnica MDEosinophils (Bld) [#/Vol]0.241 10*3/uLNormal 15-500Quest DiagnosticsComment on above:Performed By: #### 6399, 79101, 496, 7600 #### [facility] [place] [address] Non Destructive Testing Specialist: Robbie MCOCYosinophils/100 WBC (Bld)3.7 %NormalQuest DiagnosticsComment on above:Performed By: #### 6399, 03720, 496, 7600 #### [facility] [place] [address] Non Destructive Testing Specialist: Robbie Garnica MDErythrocyte distribution width (RBC) [Ratio] 12.5 %Ihpooj58.0-15.0Quest DiagnosticsComment on above:Performed By: #### 6399, 04227, 496, 7600 #### [facility] of [place] [address] Non Destructive Testing Specialist: Robbie Garnica MDHematocrit (Bld) [Volume fraction]38.9 %Normal 35.0-45.0Quest DiagnosticsComment on above:Performed By: #### 6399, 14486, 496, 7600 #### [facility] of [place] [address] Non Destructive Testing Specialist: Robbie Garnica MDHemoglobin (Bld) [Mass/Vol]12.6 g/dLNormal 11.7-15.5Quest DiagnosticsComment on above:Performed By: #### 6399, 30339, 496, 7600 #### [facility] of [place] [address] Non Destructive Testing Specialist: Robbie Garnica MDLymphocytes (Bld) [#/Vol]1.053 10*3/uLNormal 850-3900Quest DiagnosticsComment on above:Performed By: #### 6399, 22197, 496, 7600 #### [facility] of [place] [address] Non Destructive Testing Specialist: Robbie Garnica MDLymphocytes/100 WBC (Bld)16.2 %NormalQuest DiagnosticsComment on above:Performed By: #### 6399, 15196, 496, 7600 #### [facility] [place] [address] Non Destructive Testing Specialist: Robbie Garnica MDMCH (RBC) [Entitic mass]30.4 plLkxanj53.0-33.0 Quest DiagnosticsComment on above:Performed By: #### 6399, 67423, 496, 7600 #### [facility] of [place] [address] Non Destructive Testing Specialist: Robbie Garnica MDMCHC (RBC) [Mass/Vol]32.4 g/sPAhoxnk98.0-36.0 Quest DiagnosticsComment on above:Result Comment: For adults, a slight decrease in the calculated MCHC value (in the range of 30 to 32 g/dL) is most likely not clinically significant; however, it should be interpreted with caution in correlation with other red cell parameters and the patient's clinical condition.Performed By: #### 6399, 31160, 496, 7600 #### [facility] of [place] [address] Non Destructive Testing Specialist: Robbie Garnica MDMCV (RBC) [Entitic vol]93.7 pJEsmwgc88.0-100.0 Quest DiagnosticsComment on above:Performed By: #### 6399, 72526, 496, 7600 #### [facility] of [address], [address] [place] [address] Non Destructive Testing Specialist: Robbie Garnica MDMonocytes (Bld) [#/Vol]0.475 10*3/uLNormal 200-950Quest DiagnosticsComment on above:Performed By: #### 6399, 21748, 496, 7600 #### [facility] of [address], [address] [place] [address] Non Destructive Testing Specialist: Robbie Garnica MDMonocytes/100 WBC (Bld)7.3 %NormalQuest DiagnosticsComment on above:Performed By: #### 6399, 15296, 496, 7600 #### [facility] of [address], [address] [place] [address] Non Destructive Testing Specialist: Robbie Garnica MDNeutrophils (Bld) [#/Vol]4.693 10*3/uLNormal 1500-7800Quest DiagnosticsComment on above:Performed By: #### 6399, 93110, 496, 7600 #### [facility] of [address], [address] [place] [address] Non Destructive Testing Specialist: Robbie Garnica MDNeutrophils/100 WBC (Bld)72.2 %NormalQuest DiagnosticsComment on above:Performed By: #### 6399, 29957, 496, 7600 #### [facility] of [address], [address] [place] [address] Non Destructive Testing Specialist: Robbie Garnica MDPlatelet mean volume (Bld) [Entitic vol]11.4 fLNormal7.5-12.5Quest DiagnosticsComment on above:Performed By: #### 6399, 06079, 496, 7600 #### [facility] of [address], [address] [place] [address] Non Destructive Testing Specialist: Robbie Garnica MDPlatelets (Bld) [#/Vol]186 10*3/uLNormal 140-400Quest DiagnosticsComment on above:Performed By: #### 6399, 34672, 496, 7600 #### [facility] [address], [address] [place] [address] Non Destructive Testing Specialist: Robbie Garnica [facility] (d) [#/Vol]4.15 10*6/uLNormal3.80-5.10 Quest DiagnosticsComment on above:Performed By: #### 6399, 05247, 496, 7600 #### [facility] [address], [address] [place] [address] Non Destructive Testing Specialist: Robbie Garnica [facility] ([facility] [#/Vol]6.5 10*3/uLNormal3.8-10.8 Quest DiagnosticsComment on above:Performed By: #### 6399, 49637, 496, 7600 #### [facility] [address], [address] [place] [address] Non Destructive Testing Specialist: Robbie Garnica MDHEMOGLOBIN A1con 28-36-1124SnX4j (d) [Mass fraction]5.7 %High<5.7Quest DiagnosticsComment on above:Result Comment: For someone without known diabetes, a [...] hemoglobin A1c for diagnosis of diabetes for children.Performed By: #### 6399, 50390, 496, 7600 #### [facility] [address], [address] [place] [address] Non Destructive Testing Specialist: Robbie Garnica MDLIPID PANEL, STANDARDon 96-28-6703Hloiawbcvbc [Mass/Vol]118 mg/dLNormal<200Quest DiagnosticsComment on above:Order Comment: FASTING:YES FASTING: YESPerformed By: #### 6399, 72345, 496, 7600 #### [facility] [address], [address] [place] [address] Non Destructive Testing Specialist: Robbie BUCKLEYholesterol in HDL [Mass/Vol]54 mg/dLNormal> OR = 50Quest DiagnosticsComment on above:Order Comment: FASTING:YES FASTING: YESPerformed By: #### 6399, 73653, 496, 7600 #### [facility] [address], [address] [place] [address] Non Destructive Testing Specialist: Robbie BUCKLEYholesterol in LDL [Mass/Vol]49 mg/dLNormal Quest DiagnosticsComment on above:Order Comment: FASTING:YES FASTING: YESResult Comment: Reference range: <100 Desirable range <100 mg/dL for primary prevention; <70 mg/dL for patients with CHD or diabetic patients with > or = 2 CHD risk factors. LDL-C is now calculated using the Cara calculation, which is a validated novel method providing better accuracy than the Friedewald equation in the estimation of LDL-C. Damion SS et al. CONSUELO. 2013;310(19): 4017-7612 (http://education.Pepperdata/faq/QPK372)Performed By: #### 6399, 77214, 496, 7600 #### [facility] [address], [address] [place] [address] Non Destructive Testing Specialist: Robbie Graystjayme.total/Cholesterol in HDL [Mass ratio]2.2 {ratio}Normal<5.0Quest DiagnosticsComment on above:Order Comment: FASTING:YES FASTING: YESPerformed By: #### 6399, 84856, 496, 7600 #### [facility] [address], [address] [place] [address] Non Destructive Testing Specialist: Robbie DREW HDL ODBAAYSLMCK42 mg/dL (calc)Normal<130 Quest DiagnosticsComment on above:Order Comment: FASTING:YES FASTING: YESResult Comment: For patients with diabetes plus 1 major ASCVD risk factor, treating to a non-HDL-C goal of <100 mg/dL (LDL-C of <70 mg/dL) is considered a therapeutic option.Performed By: #### 6399, 88547, 496, 7600 #### [facility] [address], [address] [place] [address] Non Destructive Testing Specialist: Robbie Garnica MDTriglyceride [Mass/Vol]66 mg/dLNormal<150Quest DiagnosticsComment on above:Order Comment: FASTING:YES FASTING: YESPerformed By: #### 6399, 99588, 496, 7600 #### [facility] [address], [address] [place] [address] Non Destructive Testing Specialist: Robbie Garnica MDVITAMIN D,25-OH,TOTAL,IAon 81-68-3870ZPTFFZN D,25-OH,TOTAL,IA49 ng/sNLwpvav91-664Cofif DiagnosticsComment on above:Result Comment: Vitamin D Status 25-OH Vitamin D: Deficiency: <20 ng/mL Insufficiency: 20 - 29 ng/mL Optimal: > or = 30 ng/mL For 25-OH Vitamin D testing on patients on D2-supplementation and patients for whom quantitation of D2 and D3 fractions is required, the QuestAssureD(TM) 25-OH VIT D, (D2,D3), LC/MS/MS is recommended: order code 66090 (patients >2yrs). See Note 1 Note 1 For additional information, please refer to http://education.AxoGen.[employer]/faq/WXX863 (This link is being provided for informational/ educational purposes only.)Performed By: #### 6399, 31558, 496, 7600 #### [facility] [address], [address] [place], [place] [address] Non Destructive Testing Specialist: Robbie Garnica [facility] T3 FREEon 62-87-7081Cpld T3 [Mass/Vol]2.72 pg/mL2.18 - 3.98 pg/mLNST. ANTHONY [facility] HealthcareALL THYROID STIM HORMONEon 05-23-2024 Interpretation and review of laboratory resultsAbnoAllegheny Health Network Qn4.74 m[IU]/[facility] THYROXINE (T4) FREEon 16-54-8433Rxgg T4 [Mass/Vol]0.98 ng/dL0.76 - 1.46 ng/dLPershing Memorial HospitalCLBAPTIST MED[facility] HealthcareNo Panel Informationon 69-37-9883LFYBUGYWGIZPX Aechglmbtp84kc 02-55-349477Yqvcr with patient and made her aware to start taking full tablet of spironolactone starting tomorrow per Dr. Sanchez. Advised her to still cut lisinopril tablet in half. She will continue to track BP's and call us with updates. Patient verbalized understanding.[facility]36Patient called to make you aware that since decreasing spironolactone and lisinopril yesterday her BP has been: 147/92 160/108 172/118 I told her to take the other half tablet of spironolactone right now. Any other recommendations? Please advise. ThanksNormalUniversUniversity Hospitals Conneaut Medical CenterOffice Visiton 43-59-3592Rtsaug-up [id number] Lluvia Ferraro 1940 F Date Provider Department Center 01/25/2024 [address]129-SOOKYUCLAUDIO SANCHEZ [facility] Family History Problem Relation Age of Onset Colon cancer Father Coronary artery disease Brother Hypertension Brother Kidney cancer Brother Family Status - Relation Status Age at Father Brother Level of Service:58443 [place] OFFICE/OUTPATIENT ESTABLISHED MOD MDM 30 MIN Reason for Visit and Comments: Atrial Fibrillation [80] - Had thyroid function last month. Shortness of Breath [457926] Hypertension [106697] Cardiomyopathy [104] Valve Disorder [3372] Coronary Artery Disease [187] Congestive Heart Failure [127] - Admitted to [facility] in August 2023 for COPD, hypertension, and CHF. Pacemaker Check [337] - Per device rep, all looks good, no events .Normal [facility] THYROXINE (T4) FREEon 67-76-5625Mpei T4 [Mass/Vol]1.02 ng/dL0.76 - 1.46 ng/dLAtrium Health Pineville ECHO DOPPLER COMPLETEon 62-86-5366[address] [address] Cardiology Report Signed Patient: LLUVIA FERRARO MR#: [id number] : 1940 Acct:[id number] Age/Sex: 82 / F ADM Date: 08/05/23 Loc: CARD Attending Dr: MERYL ANTON Ordering Physician: MERYL ANTON Date of Service: 08/05/23 Procedure(s): CA echo doppler complete Accession Number(s): [id number] cc: OLE YANG ; MERYL ANTON Patient Name: LLUVIA FERRARO MR#: [id number] : 1940 Exam Date: 08/05/2023 Ordering Doctor: MERYL ANTON ECHOCARDIOGRAM REPORT PROCEDURE: CA ECHO DOPPLER [...] on 08/07/2023 at 17:56 Approved by: Ruddy uLcas M.D. on 08/07/2023 at 17:59 Dictated By: RUDDY LUCAS Signed By: 08/07/23 1800 (more content not included)...TBHRadiology, Radiologist, - 08/07/2023 [place] [address] Cardiology Report Signed Patient: LLUVIA FERRARO MR#: [id number] : 1940 Acct:[id number] Age/Sex: 82 / F ADM Date: 08/05/23 Loc: CARD Attending Dr: MERYL ANTON Ordering Physician: MERYL ANTON Date of Service: 08/05/23 Procedure(s): CA echo doppler complete Accession Number(s): [id number] cc: OLE YANG ; MERYL ANTON Patient Name: LLUVIA FERRARO MR#: [id number] : 1940 Exam Date: 08/05/2023 Ordering Doctor: MERYL ANTON ECHOCARDIOGRAM REPORT PROCEDURE: CA ECHO DOPPLER [...] 17:59 Dictated By: RUDDY LUCAS Signed By: 08/07/231799 DD/ 58 TD/TT: Certified Medical Records Coder: SRUTHI HealthcareRadiology Study observation (narrative)[facility] ECHO DOPPLER COMPLETEOrdered By: Radiologist Radiology on 56-67-9035[employer] Work Phone: NM MAUREEN PERF SPECT REST STRon 52-61-4460[place]to[place] [address] Nuclear Medicine Report Signed Patient: LLUVIA FERRARO MR#: [id number] : 1940 Acct:[id number] Age/Sex: 82 / F ADM Date: 08/04/23 Loc: ID Attending Dr: MERYL ANTON Ordering Physician: MERYL ANTON Date of Service: 08/04/23 Procedure(s): NM maureen perf SPECT rest str Accession Number(s): [id number] cc: OLE YANG ; MERYL ANTON Patient Name: LLUVIA FERRARO MR#: [id number] : 1940 Exam Date: 08/04/2023 Ordering Doctor: MERYL ANTON RADIOLOGY REPORT PROCEDURE: NM MAUREEN PERF SPECT REST STR COMPARISON: None. INDICATIONS: [...] study was normal per attending physician Dr. Kline . For more details please see separate cardiac stress test report. FINDINGS: QUALITY OF STUDY: Excellent. PERFUSION DEFECT: None. LOCATION: N/A SIZE: N/A. SEVERITY: N/A. TYPE: N/A. WALL MOTION: Normal. LV SIZE: Normal. 65 mL. TID / TCD: None; 1.0 LVEF: Normal. Calculated EF 71%. SUMMARY: Myocardial perfusion imaging study is NORMAL. CONCLUSION: 1. Normal nuclear medicine myocardial perfusion scan. Dictated by: Joel Andino M.D. on 08/06/2023 at 07:25 Approved by: Joel Andino M.D. on 08/06/2023 at 07:39 Dictated By: Joel Andino M.D. Signed By: 08/06/23 0740 DD/ 0739 TD/TT: Certified Medical Records Coder:BRITHRadiology, Radiologist, MD - 08/06/2023 [facility] [place] [id number] Nuclear Medicine Report Signed Patient: LLUVIA FERRARO MR#: [id number] : 1940 Acct:[id number] Age/Sex: 82 / F ADM Date: 08/04/23 Loc: NM Attending Dr: MERYL ANTON Ordering Physician: MERYL ANTON Date of Service: 08/04/23 Procedure(s): NM maureen perf SPECT rest str Accession Number(s): [id number] cc: OLE YANG ; MERYL ANTON Patient Name: LLUVIA FERRARO MR#: [id number] : 1940 Exam Date: 08/04/2023 Ordering Doctor: MERYL ANTON RADIOLOGY REPORT PROCEDURE: NM MAUREEN PERF SPECT REST STR COMPARISON: None. INDICATIONS: [...] study was normal per attending physician Dr. Kline . For more details please see separate cardiac stress test report. FINDINGS: QUALITY OF STUDY: Excellent. PERFUSION DEFECT: None. LOCATION: N/A SIZE: N/A. SEVERITY: N/A. TYPE: N/A. WALL MOTION: Normal. LV SIZE: Normal. 65 mL. TID / TCD: None; 1.0 LVEF: Normal. Calculated EF 71%. SUMMARY: Myocardial perfusion imaging study is NORMAL. CONCLUSION: 1. Normal nuclear medicine myocardial perfusion scan. Dictated by: Joel Andino M.D. on 08/06/2023 at 07:25 Approved by: Joel Andino M.D. on 08/06/2023 at 07:39 Dictated By: Joel Andino M.D. Signed By: 08/06/23739 DD/ 8 TD/TT: Certified Medical Records Coder: SRUTHI YoussefRadiology Study observation (narrative)[facility] HospitalNM MAUREEN PERF SPECT REST STROrdered By: Radiologist Radiology on 81-13-9727[facility] Work Phone: XR CHEST 2Von 95-42-7260[place]apP[place] [address] XRay Report Signed Patient: LLUVIA FERRARO MR#: [id number] : 1940 Acct:[id number] Age/Sex: 82 / F ADM Date: 07/08/23 Loc: LAB Attending Dr: MERYL ANTON Ordering Physician: MERYL ANTON Date of Service: 07/08/23 Procedure(s): XR chest 2V Accession Number(s): [id number] cc: OLE YANG ; MERYL ANTON [place] [address] Patient Name: LLUVIA FERRARO MRN: [id number] date: 1940 Sex: F Assigned Patient Location: LAB Current Patient Location: LAB Accession/Order Number: [id number] Exam Date: 07/08/2023 11:19 Report Date: 07/08/2023 13:50 At the request of: MERYL ANTON Procedure: XR chest 2V EXAMINATION: XR [...] acute cardiopulmonary process Electronically authenticated by: ROLANDO BUNDY Date: 07/08/2023 13:50 Dictated By: Rolando Bundy M.D. Signed By: 07/08/231352 DD/ 135 TD/TT: Certified Medical Records Coder:RUBENadiologNano stafford MD - 07/08/2023 [facility] [place] [id number] XRay Report Signed Patient: LLUVIA FERRARO MR#: [id number] : 1940 Acct:[id number] Age/Sex: 82 / F ADM Date: 07/08/23 Loc: LAB Attending Dr: MERYL ANTON Ordering Physician: MERYL ANTON Date of Service: 07/08/23 Procedure(s): XR chest 2V Accession Number(s): [id number] cc: OLE YANG ; MERYL ANTON [place] [address] Patient Name: LLUVIA FERRARO MRN: [id number] date: 1940 Sex: F Assigned Patient Location: LAB Current Patient Location: LAB Accession/Order Number: [id number] Exam Date: 07/08/2023 11:19 Report Date: 07/08/2023 13:50 At the request of: MERYL ANTON Procedure: XR chest 2V EXAMINATION: XR [...] acute cardiopulmonary process Electronically authenticated by: ROLANDO BUNDY Date: 07/08/2023 13:50 Dictated By: Rolando Bundy M.D. Signed By: 07/08/231352 DD/ 135 TD/TT: Certified Medical Records Coder: SRUTHI HealthcareRadiology Study observation (narrative)[facility] HealthcareXR CHEST 2V Ordered By: Radiologist Radiology on 44-90-8159HZYFPershing Memorial Hospital Work Phone: US.doppler Lower extremity vein - righton 02-16-2023 [place] [address] Ultrasound Report Signed Patient: LLUVIA FERRARO MR#: [id number] : 1940 Acct:[id number] Age/Sex: 82 / F ADM Date: 02/14/23 Loc: US Attending Dr: OLE YANG Ordering Physician: OLE YANG Date of Service: 02/14/23 Procedure(s): US venous doppler LE RT Accession Number(s): [id number] cc: OLE YANG [place] [address] Patient Name: LLUVIA FERRARO MRN: [id number] date: 1940 Sex: F Assigned Patient Location: US Current Patient Location: Accession/Order Number: [id number] Exam Date: 02/14/2023 10:30 Report Date: 02/16/2023 [...] extremity. Electronically authenticated by: JOEL ANDINO Date: 02/16/2023 11:04 Dictated By: Joel Andino M.D. Signed By: 02/16/23 1107 DD/ 03 TD/TT: Certified Medical Records Coder:BRITHRadiology, Radiologist, - 02/16/2023 [facility] [place] [id number] Ultrasound Report Signed Patient: LLUVIA FERRARO MR#: [id number] : 1940 Acct:[id number] Age/Sex: 82 / F ADM Date: 02/14/23 Loc: US Attending Dr: OLE YANG Ordering Physician: OLE YANG Date of Service: 02/14/23 Procedure(s): US venous doppler LE RT Accession Number(s): [id number] cc: OLE YANG [facility] [place] [address] Patient Name: LLUVIA FERRARO MRN: [id number] date: 1940 Sex: F Assigned Patient Location: US Current Patient Location: Accession/Order Number: [id number] Exam Date: 02/14/2023 10:30 Report Date: 02/16/2023 [...] extremity. Electronically authenticated by: JOEL ANDINO Date: 02/16/2023 11:04 Dictated By: Joel Andino M.D. Signed By: 02/16/23 1107 DD/ 110 TD/TT: Certified Medical Records Coder: SRUTHI HealthcareRadiology Study observation (narrative)SRUTHI YoussefUS.doppler Lower extremity vein - rightOrdered By: Radiologist Radiology on 27-21-8626ZXOVPershing Memorial Hospital Work Phone: FREE T3on 92-83-8372RRES T32.54 pg/mlLNormal2.18-3.98 The [facility] HospitalComment on above:Performed By: #### FT3, TSH #### [facility] [address] [place] [address] Dr. Hugo Pacheco T4on 36-38-5562Qrwp T4 [Mass/Vol]1.09 ng/dLNormal0.76-1.46 The [facility] HospitalComment on above:Performed By: #### FT4 #### [facility] [address] [place], [place] [address] Dr. Hugo Sanchez 73-83-7868NAR9.015 uIU/mLNormal0.358-3.740The [facility] HospitalComment on above:Performed By: #### FT3, TSH #### [facility] [address] [place], [place] [address] Dr. Hugo YangCT HEAD WO CONon 11-82-8044EX HEAD WO CONEXAMINATION: CT HEAD WO CON HISTORY: Diplopia for [...] Electronically authenticated by: JOEL ANDINO Date: 2022-03-19 10:33[facility] [place]XR DEXA BONE DENSITYon 20-98-4198MW DEXA BONE DENSITY EXAMINATION: XR DEXA BONE [...] Electronically authenticated by: JOEL ANDINO Date: 2022-03-19 11:[address] [place], [place] [address]ECHOCARDIO M/2D COMPLETEon 06-46-3637OFTKHHPLIS M/2D COMPLETE Patient: LLUVIA FERRARO Exam Date: 12/23/2021 : 1940 Gender:F Ordering : SHELDON GOTTLIEB [facility] Admission #: [id number] Family : DR OLE YANG M.D. Order #: [id number] CLICK HERE TO VIEW EXAM ECHOCARDIOGRAM REPORT [...] Valve Pulmonic Valve Right [facility] Dictated by: Ruddy Lucas M.D. on 12/24/2021 at 15:51 Approved by: Ruddy Lucas M.D. on 12/24/2021 at 15:56NormalThe [facility] HospitalFREE T3on 66-86-2069ZEBP T31.97 pg/mlLCritically low2.18-3.98The [facility] on above:Performed By: #### FT3, TSH #### [facility] [address] [place] [address] Dr. Hugo Pacheco T4on 11-36-6079Ohzn T4 [Mass/Vol]1.00 ng/dLNormal0.76-1.46 The [facility] on above:Performed By: #### FT3, TSH #### [facility] [address] [place] [address] Dr. Hugo Sifuentes PROFILEon 27-95-5606Soiwxce [Mass/Vol]3.9 g/dLNormal3.4-5.0 The [facility] on above:Performed By: #### FT3, TSH #### [facility] [address] [place] [address] Dr. Hugo YangAlbumin/Globulin [Mass ratio]1.1 {ratio}NormalThe [facility] on above:Performed By: #### FT3, TSH #### [facility] [address] [place] [address] Dr. Hugo Brennan [Catalytic activity/Vol]94 U/SRqacxq16-170Sbm [facility] on above:Performed By: #### FT3, TSH #### [facility] [address] [place] [address] Dr. Hugo Davis [Catalytic activity/Vol]41 U/AVaemxv79-53Xpl [facility] HospitalComment on above:Performed By: #### FT3, TSH #### [facility] [address] [place] [address] Dr. Hugo Yuen [Catalytic activity/Vol]25 U/SXvrmhk90-96Dbu [facility] on above:Performed By: #### FT3, TSH #### [facility] [address] [place] [address] Dr. Yilan ChangBILI, CONJUGATED0.2 mg/dLNormal0.0-0.2[facility] Comment on above:Performed By: #### FT3, TSH #### [facility] [address] [place] [address] Dr. Hugo Batemanirubin [Mass/Vol]0.8 mg/dLNormal0.2-1.0[facility] Comment on above:Performed By: #### FT3, TSH #### [facility] [address] [place] [address] [address] Hugo YangGlobulin (S) [Mass/Vol]3.5 g/dLNormAshtabula County Medical CenterComment on above:Performed By: #### FT3, TSH #### [facility] [address] [place] [address] Dr. Hugo YangProtein [Mass/Vol]7.4 g/dLNormal6.4-8.2The [facility] Comment on above:Performed By: #### FT3, TSH #### [facility] [address] [place] [address] Dr. Hugo Sanchez 20-67-5965DPN6.892 uIU/mLNormal0.358-3.740[facility] HospitalComment on above:Performed By: #### FT3, TSH #### [facility] [address] [place] [address] Dr. Hugo Yoo PIPER DOP LEG RTon 68-99-0069PW PIPER DOP LEG RTEXAMINATION: US PIPER DOP LEG RT HISTORY: Pain in right leg COMPARISON: No relevant comparison available. FINDINGS: REGION: Right lower extremity THROMBI: None. COMPRESSIBILITY: Normal compressibility. FLOW: Normal waveform and antegrade flow between 5 and 20 cm/s. OTHER: None. IMPRESSION: 1. No deep vein thrombus within the right lower extremity. Electronically authenticated by: JOEL ANDINO Date: 2021-09-04 12:18[facility] [place]Cardi[facility] Lab Reporton [id number] Lab Report [facility] Patient Name: [facility] MR #: [id number] Physician: Keanu Kline MD Department of Service Date: 08/21/2021 Medicine Birthdate: 1940 Division of Room #: Cardiology Adult Cardiovascular Services [facility] [address] [place] [address] Cardiovascular Laboratory Report TBIV-UPGRADE PROCEDURE NOTE DATE OF PROCEDURE: 08/21/2021 PERFORMING PHYSICIAN: Dr. Keanu Kline CONSENT: Patient LOCATION: EP Lab PROCEDURE PERFORMED: 1. Implantation of Biventricular ICD ([employer]). 2. Explantation of previously implanted pacemaker generator ([employer]). 3. RV pacing lead and extraction. [...] proceeded to place an LV lead. The Enola sheath was advanced, and with the wire, the CS os was accessed. However there was no support and so I used an amplatz wire for support. The inner cannula was then advanced into the CS body. The inner cannula was then removed and venogram was performed. Louisville catheter was advanced and venogram was performed. This revealed a good posterolateral vein, but other than that, an anterior vein was noted, but no significant other branches were seen. After this, a 0.014 wire was passed through the Louisville-Sarah catheter and traversed into the posterolateral vein. However, the wire was short enough and we could not get a good grasp at the end. So, thereafter, the [place]-Sarah catheter was removed and 90-degree inner cannula was used to access the vein. A longer 0.014 wire tracked into the vein. Over this, a [employer] straight lead was advanced and placed [...] the sleeve was t (more content not included)...NormalThe [facility] County HospitalCovid-19 PCR ([facility])on 88-54-9404TADT-CoV-2 (COVID-19) RNA SONA+probe Ql (Unsp spec)Not detectedNormalNOT DETECTEDThe [facility] HospitalComment on above:Result Comment: When diagnostic testing is negative, the [...] for this test is supported by the Internet Researcher of Health and Human Service's declaration that circumstances exist to justify the emergency use of in vitro diagnostics for the detection and/or diagnosis of the virus that causes COVID-19. This EUA will remain in effect for the duration of the COVID-19 declaration justifying emergency of IVDs, unless it is terminated or revoked by the FDA (after which the test may no longer be used).Performed By: #### BMP #### [facility] [address] [place] [address] Dr. Hugo YangHEMOGRAM AND PLATELon 15-10-1123Qhlnjpfeuz (Bld) [Volume fraction]43.7 %Dnuxxh24.0-48.0The [facility] HospitalComment on above:Performed By: #### CBC #### [facility] [address] [place] [address] Dr. Hugo YangHemoglobin (Bld) [Mass/Vol]14.2 g/jNOhbypo84.0-16.0The [facility] HospitalComment on above:Performed By: #### CBC #### [facility] [address] [place] [address] Dr. Hugo [facility] (RBC) [Entitic mass]31.0 wyOlmpss09.7-34.0The [facility] HospitalComment on above:Performed By: #### CBC #### [facility] [address] [place] [address] [address] Hugo JimenezHC (RBC) [Mass/Vol]32.5 g/hYNyhnvr04.9-35.2The [facility] HospitalComment on above:Performed By: #### CBC #### [facility] [address] [place] [address] [address] Hugo JimenezV (RBC) [Entitic vol]95.4 zDVnrpvd86.0-99.0The [facility] [place] HospitalComment on above:Performed By: #### CBC #### [facility] [address] [place] [address] [address] Hugo YangPLT161 103/vlKrcyww599-102Pdm [facility] HospitalComment on above: Performed By: #### CBC #### [facility] [address] [place] [address] Dr. Hugo YangRBC4.58 106/ulNormal4.20-5.40The [facility] HospitalComment on above:Performed By: #### CBC #### [facility] [address] [place] [address] [address] Hugo YangWBC6.9 103/ulNormal4.0-11.0The [facility] HospitalComment on above: Performed By: #### CBC #### [facility] [address] [place] [address] Dr. Hugo YangPROF CHEM 8 (BAS METB)on 51-82-8233Kesip gap [Moles/Vol]11.5 mmol/LNormalThe [facility] HospitalComment on above:Performed By: #### BMP #### [facility] [address] [place] [address] Dr. Hugo YangCalcium [Mass/Vol]9.6 mg/dLNormal8.5-10.1The [facility] Comment on above:Performed By: #### BMP #### [facility] [address] [place] [address] Dr. Hugo YangChloride [Moles/Vol]104 mmol/QPmbrfi15-537Ova [facility] Comment on above:Performed By: #### BMP #### [facility] [address] [place] [address] [address] Hugo YangCO2 [Moles/Vol]30.6 mmol/VGqzpet43.0-32.0The [facility] Comment on above:Performed By: #### BMP #### [facility] [address] [place] [address] [address] Hugo YangCreatinine [Mass/Vol]1.24 mg/dLCritically high0.55-1.02[facility] HospitalComment on above:Performed By: #### BMP #### [facility] [address] [place] [address] [address] Hugo RamachandranGFR-AF NFBFWHBL14 mL/min/1.14x0Ghoovzbfwn low>=60The [facility] [place] HospitalComment on above:Performed By: #### BMP #### [facility] [address] [place] [address] [address] Hugo RamachandranGFR-NON AF YVBJIHJH01 mL/min/1.06d8Vlnxfcnaka low>=60The [facility] [place] HospitalComment on above:Performed By: #### BMP #### [facility] [address] [place] [address] [address] Hugo YangGlucose [Mass/Vol]111 mg/dLCritically mqei28-311Jdj [facility] [place] HospitalComment on above:Performed By: #### BMP #### [facility] [address] [place] [address] [address] Hugo YangPotassium [Moles/Vol]5.1 mmol/LNormal3.5-5.1The [facility] Comment on above:Performed By: #### BMP #### [facility] [address] [place] [address] [address] Hugo YangSodium [Moles/Vol]141 mmol/XUpkbti524-069Xij [facility] Comment on above:Performed By: #### BMP #### [facility] [address] [place] [address] [address] Hugo YangUrea nitrogen [Mass/Vol]31.0 mg/dLCritically high7.0-18.0The [facility] HospitalComment on above:Performed By: #### BMP #### [facility] [address] [place] [address] [address] Hugo YangUrea nitrogen/Creatinine [Mass ratio]25.0 mg/mgNormalThe [facility] HospitalComment on above:Performed By: #### BMP #### [facility] [address] [place] [address] [address] Hugo Shetty 06-72-6640Iwzasxrivno peptide B (Bld) [Mass/Vol]1994.0 pg/mLCritically high<=1,800.0The [facility] HospitalComment on above:Performed By: #### CBC #### [facility] [address] [place] [address] Dr. Hugo Johnson CHEM 8 (BAS METB)on 45-04-4395Vdlhf gap [Moles/Vol]11.3 mmol/LNormalThe [facility] [place] HospitalComment on above:Performed By: #### CBC #### [facility] [address] [place] [address] Dr. Hugo YangCalcium [Mass/Vol]9.7 mg/dLNormal8.5-10.1The [facility] Comment on above:Performed By: #### CBC #### [facility] [address] [place] [address] Dr. Hugo YangChloride [Moles/Vol]104 mmol/KCmjgia62-168Tvn [facility] Comment on above:Performed By: #### CBC #### [facility] [address] [place] [address] Dr. Hugo YangCO2 [Moles/Vol]29.6 mmol/YKwacvz63.0-32.0The [facility] Comment on above:Performed By: #### CBC #### [facility] [address] [place] [address] Dr. Hugo YangCreatinine [Mass/Vol]1.28 mg/dLCritically high0.55-1.02The [facility] [place] HospitalComment on above:Performed By: #### CBC #### [facility] [address] [place] [address] [address] Arias ChangEGFR-AF TDPWROWL94 mL/min/1.02k1Jveumqftzh low>=60The [facility] HospitalComment on above:Performed By: #### CBC #### [facility] [address] [place] [address] [address] Hguo RamachandranGFR-NON AF OSGRKRYK42 mL/min/1.92i8Upcjnjtvof low>=60The [facility] [place] HospitalComment on above:Performed By: #### CBC #### [facility] [address] [place] [address] [address] Hugo YangGlucose [Mass/Vol]119 mg/dLCritically dwoq60-484Xmt [facility] [place] HospitalComment on above:Performed By: #### CBC #### [facility] [address] [place] [address] [address] Hugo YangPotassium [Moles/Vol]4.9 mmol/LNormal3.5-5.1The [facility] Comment on above:Performed By: #### CBC #### [facility] [address] [place] [address] [address] Hugo YangSodium [Moles/Vol]140 mmol/IWgfxaf132-057Iqk [facility] Comment on above:Performed By: #### CBC #### [facility] [address] [place] [address] [address] Hugo YangUrea nitrogen [Mass/Vol]30.0 mg/dLCritically high7.0-18.0The [facility] [place] HospitalComment on above:Performed By: #### CBC #### [facility] [address] [place] [address] [address] Hugo Sanchez nitrogen/Creatinine [Mass ratio]23.4 mg/mgNormalThe [facility] [place] HospitalComment on above:Performed By: #### CBC #### [facility] [address] [place] [address] [address] Hugo YangFREE T3on 84-35-6324LXQG T32.64 pg/mlLNormal2.18-3.98The [facility] HospitalComment on above:Performed By: #### FT3, TSH #### [facility] [address] [place] [address] Dr. Hugo Pacheco T4on 60-20-8559Mgsm T4 [Mass/Vol]1.19 ng/dLNormal0.76-1.46 The [facility] on above:Performed By: #### BMP #### [facility] [address] [place] [address] Dr. Hugo Sifuentes PROFILEon 22-51-7132Csygfqz [Mass/Vol]3.8 g/dLNormal3.4-5.0 The [facility] [place] HospitalComgarden city hospital on above:Performed By: #### FT3, TSH #### [facility] [address] [place] [address] Dr. Hugo YangAlbumin/Globulin [Mass ratio]1.2 {ratio}NormalThe [facility] on above:Performed By: #### FT3, TSH #### [facility] [address] [place] [address] Dr. Hugo Brennan [Catalytic activity/Vol]88 U/SSrfwqr38-841Dvw [facility] HospitalComgarden city hospital on above:Performed By: #### FT3, TSH #### [facility] [address] [place] [address] Dr. Hugo Davis [Catalytic activity/Vol]54 U/WFlakap91-01Ojt [facility] on above:Performed By: #### FT3, TSH #### [facility] [address] [place] [address] Dr. Hugo Yuen [Catalytic activity/Vol]36 U/KCeklfm37-49Mcz [facility] on above:Performed By: #### FT3, TSH #### [facility] [address] [place] [address] Dr. Hugo Sibley, CONJUGATED0.3 mg/dLCritically high0.0-0.2The [facility] on above:Performed By: #### FT3, TSH #### [facility] [address] [place] [address] Dr. Hugo Batemanirubin [Mass/Vol]0.9 mg/dLNormal0.2-1.0[facility] Comment on above:Performed By: #### FT3, TSH #### [facility] [address] [place] [address] Dr. Hugo YangGlobulin (S) [Mass/Vol]3.3 g/dLNormalThe [facility] HospitalComment on above:Performed By: #### FT3, TSH #### [facility] [address] [place] [address] Dr. Hugo YangProtein [Mass/Vol]7.1 g/dLNormal6.4-8.2The [facility] Comment on above:Performed By: #### FT3, TSH #### [facility] [address] [place] [address] Dr. Hugo YangPROF CHEM 8 (BAS METB)on 17-19-1226Bxuqi gap [Moles/Vol]13.6 mmol/LNormalMercy Health West HospitalComment on above:Performed By: #### BMP #### [facility] [address] [place] [address] Dr. Hugo YangCalcium [Mass/Vol]9.5 mg/dLNormal8.5-10.1The [facility] Comment on above:Performed By: #### BMP #### [facility] [address] [place] [address] Dr. Hugo YangChloride [Moles/Vol]105 mmol/UWcytdi18-869SpgMercy Health West Hospital Comment on above:Performed By: #### BMP #### [facility] [address] [place] [address] Dr. Hugo YangCO2 [Moles/Vol]28.5 mmol/RRqzgak43.0-32.0[facility] Comment on above:Performed By: #### BMP #### [facility] [address] [place] [address] Dr. Hugo YangCreatinine [Mass/Vol]1.05 mg/dLCritically high0.55-1.02[facility] HospitalComment on above:Performed By: #### BMP #### [facility] [address] [place] [address] [address] Arias ChangEGFR-AF YEMENI>60Normal>=60The [facility] HospitalComment on above:Performed By: #### BMP #### [facility] [address] [place] [address] [address] Hugo RamachandranGFR-NON AF CWQWBNVN40 mL/min/1.38p1Tmppunkfti low>=60The [facility] HospitalComment on above:Performed By: #### BMP #### [facility] [address] [place] [address] [address] Hugo YangGlucose [Mass/Vol]113 mg/dLCritically niun23-884Zsz [facility] HospitalComment on above:Performed By: #### BMP #### [facility] [address] [place] [address] [address] Hugo YangPotassium [Moles/Vol]5.1 mmol/LNormal3.5-5.1The [facility] Comment on above:Performed By: #### BMP #### [facility] [address] [place] [address] [address] Hugo YangSodium [Moles/Vol]142 mmol/RWtjvdj746-649Mkd [facility] Comment on above:Performed By: #### BMP #### [facility] [address] [place] [address] [address] Hugo YangUrea nitrogen [Mass/Vol]29.0 mg/dLCritically high7.0-18.0The [facility] HospitalComment on above:Performed By: #### BMP #### [facility] [address] [place] [address] [address] Hugo Sanchez nitrogen/Creatinine [Mass ratio]27.6 mg/mgNormalThe [facility] HospitalComment on above:Performed By: #### BMP #### [facility] [address] [place] [address] [address] Hugo Sanchez 67-48-1280YSS6.067 uIU/mLNormal0.358-3.740The [facility] HospitalComment on above:Performed By: #### FT3, TSH #### [facility] [address] [place], [place] [address] Dr. Hugo Johnson [facility] HospitalComment on above: Result Comment: <0.34 UIU/ml HYPERTHYROID 0.34-5.60 UIU/ml EUTHYROID >5.60 UIU/ml HYPOTHYROIDPerformed By: #### FT3, TSH #### [facility] [address] [place], [place] [address] Dr. Hugo YangCardiovascular Lab Reporton [id number] Lab Report [facility]: [id number] Physician: Elizabeth Tejeda Department of M.D. Medicine Service Date: 06/20/2021 Division of Birthdate: 1940 Cardiology Room #: [facility] Cardiovascular Services [address] [place] [address] Cardiovascular Laboratory Report FINAL IMPRESSIONS: 1. 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 2. Otherwise nonobstructive coronary arteries angiographically. 3. Moderately reduced global left ventricular systolic function by noninvasive imaging. 4. Normal right-sided heart pressures and wedge pressure. 5. Wuwe-ow-fewmprwd systemic hypertension. 6. Mildly reduced cardiac output/cardiac [...] clinically indicated. 6. Follow up with Dr. Kline and Meryl Anton CNP in the next 2-4 weeks. 7. Follow up with Dr. Yang as scheduled. PROCEDURES: Ultrasound-guided access to the right common femoral vein, ultrasound-guided access of the right common femoral artery, limited femoral arterial angiography, limited femoral venous venography, right heart catheterization, bilateral selective coronary angiography, placement of a 6-Malian MynxGrip closure device. METHODS: After risks, benefits, [...] femoral vein and artery was obtained. A 6-Malian 11 cm sheath was placed in each. [...] the procedure. All catheters were removed. A 6-Malian MynxGrip closure device was deployed per protocol [...] 06/27/2021 09:19 A E (more content not included)...NormalThe Paulding County HospitalBNP on 57-84-3375Xhvllefqniq peptide B (Bld) [Mass/Vol]3442.0 pg/mLCritically high <=1,800.0The [facility] HospitalComment on above:Result Comment: TEST REPEATED CRITICAL VALUE VERIFIEDPerformed By: #### LIPID, BNP, CMP #### [facility] [address] [place] [address] Dr. Hugo Connelly AUTO DIFFon 50-58-5431QRHN #0.1 103/ulNormal0.0-0.1[facility] HospitalComment on above:Performed By: #### CBC #### [facility] [address] [place] [address] Dr. Hugo YangBasophils/100 WBC (Bld)0.5 %Normal0.2-2.0The [facility] Comment on above:Performed By: #### CBC #### [facility] [address] [place] [address] Dr. Hugo New #0.3 103/ulNormal0.0-0.7The [facility] HospitalComment on above: Performed By: #### CBC #### [facility] [address] [place] [address] Dr. Hugo Ramachandranosinophils/100 WBC (Bld)2.3 %Normal0.9-7.0[facility] Comment on above:Performed By: #### CBC #### [facility] [address] [place] [address] Dr. Hugo Ramachandranrythrocyte distribution width (RBC) [Ratio]14.5 %Knilbs48.0-15.0 The [facility] HospitalComment on above:Performed By: #### CBC #### [facility] [address] [place] [address] Dr. Hugo YangHematocrit (Bld) [Volume fraction]42.3 %Ukckjt21.0-48.0The [facility] HospitalComment on above:Performed By: #### CBC #### [facility] [address] [place] [address] Dr. Hugo YangHemoglobin (Bld) [Mass/Vol]13.5 g/aTRyeqdo81.0-16.0[facility] HospitalComment on above:Performed By: #### CBC #### [facility] [address] [place] [address] Dr. Hugo Hopkins #0.05 10e3/ulCritically high0.00-0.03[facility] Comment on above:Performed By: #### CBC #### [facility] [address] [place] [address] Dr. Hugo Hopkins %0.4 %Normal0.0-0.5The [facility] HospitalComment on above: Performed By: #### CBC #### [facility] [address] [place] [address] Dr. Hugo WinterH #1.5 103/ulNormal1.2-3.8The [facility] HospitalComment on above:Performed By: #### CBC #### [facility] [address] [place] [address] Dr. Hugo Gonzalezmphocytes/100 WBC (Bld)12.9 %Critically low20.5-60.0The [facility] HospitalComment on above:Performed By: #### CBC #### [facility] [address] [place] [address] Dr. Hugo GuzmanUAL DIFF REQNONormalThe [facility] HospitalComment on above: Performed By: #### CBC #### [facility] [address] [place] [address] [address] Hugo Jimenez (RBC) [Entitic mass]30.4 pvHcrzvr48.7-34.0The [facility] HospitalComment on above:Performed By: #### CBC #### [facility] [address] [place] [address] Dr. Hugo Jimenez (RBC) [Mass/Vol]31.9 g/hPUsxvpn04.9-35.2The [facility] HospitalComment on above:Performed By: #### CBC #### [facility] [address] [place] [address] Dr. Hugo Jimenez (RBC) [Entitic vol]95.3 dHGerhrs91.0-99.0The [facility] HospitalComment on above:Performed By: #### CBC #### [facility] [address] [place] [address] Dr. Hugo Saavedra #0.7 103/ulNormal0.3-0.8The [facility] HospitalComment on above:Performed By: #### CBC #### [facility] [address] [place] [address] Dr. Hugo Dumontocytes/100 WBC (Bld)6.2 %Normal1.7-12.0[facility] Comment on above:Performed By: #### CBC #### [facility] [address] [place] [address] Dr. Hugo Tierney #8.8 103/ulCritically high1.4-6.5The [facility] Comment on above:Performed By: #### CBC #### [facility] [address] [place] [address] Dr. Hugo Prattutrophils/100 WBC (Bld)77.7 %Critically high43.0-75.0The [facility] HospitalComment on above:Performed By: #### CBC #### [facility] [address] [place] [address] Dr. Hugo Beach mean volume (Bld) [Entitic vol]10.4 fLNormal9.5-13.5The [facility] HospitalComment on above:Performed By: #### CBC #### [facility] [address] [place] [address] Dr. Hugo YangPLT199 103/mfXjyafs528-197Nde [facility] HospitalComment on above: Performed By: #### CBC #### [facility] [address] [place] [address] Dr. Hugo YangRBC4.44 106/ulNormal4.20-5.40The [facility] HospitalComment on above:Performed By: #### CBC #### [facility] [address] [place] [address] Dr. Hugo YangWBC11.3 103/ulCritically high4.0-11.0The [facility] HospitalComment on above:Performed By: #### CBC #### [facility] [address] [place] [address] Dr. Hugo YangCoviden-19 PCR ([facility])on [id number]-CoV-2 (COVID-19) RNA SONA+probe Ql (Unsp spec)Not detectedNormalNOT DETECTEDThe [facility] Comment on above:Result Comment: This test is not yet approved or cleared by the [place] FDA. When there are no FDA-approved or cleared tests available, and other criteria are met, FDA can make tests available under an emergency access mechanism called an Emergency Use Authorization (EUA). The EUA for this test is supported by the [place] of Health and Human Service's (HHS's) declaration that circumstances exist to justify the emergency use of in vitro diagnostics for the detection and/or diagnosis of the virus that causes COVID- 19. This EUA will remain in effect (meaning [...] of clinical signs and symptoms consistent with SARS-CoV-2.Performed By: #### FT3, TSH #### [facility] [address] [address] [address] Hugo MandujanoID PROFILEon [id number]-HDL RATIO NORMSAdena Pike Medical CenterComment on above:Result Comment: 3.3 - 4.4 LOW RISK 4.4 - 7.1 AVERAGE RISK 7.1 - 11.0 MODERATE RISK >11.0 HIGH RISKPerformed By: #### LIPID, BNP, CMP #### [facility] [address] [address] [address] Hugo YangCholesterol [Mass/Vol]127 mg/dLNormal<=200[facility] Comment on above:Performed By: #### LIPID, BNP, CMP #### [facility] [address] [place] [address] Dr. Hugo YangCholesterol in HDL [Mass/Vol]60 mg/uFYquxvy25-93JolMercy Health West HospitalComment on above:Performed By: #### LIPID, BNP, CMP #### [facility] [address] [place] [address] Dr. Hugo YangCholesterol in LDL [Mass/Vol]47.4 mg/dLKing's Daughters Medical Center OhioComment on above:Performed By: #### LIPID, BNP, CMP #### [facility] [address] [address] [address] Hugo Goldenesterryanne.total/Cholesterol in HDL [Mass ratio]2.1 {ratio} NormalMercy Health West HospitalComment on above:Performed By: #### LIPID, BNP, CMP #### [facility] [address] [place] [address] Dr. Hugo YangHDL NORMAL> or = 60 mg/dl - LOW CARDIOVASCULAR RISK <40 mg/dl - HIGH CARDIOVASCULAR RISKKing's Daughters Medical Center OhioComgarden city hospital on above:Performed By: #### LIPID, BNP, CMP #### [facility] [address] [place] [address] Dr. Hugo YangLDL CALC NORMALSEE [facility] Parma Medical CenterComment on above:Result Comment: <100 mg/dl OPTIMAL 100 - 129 mg/dl NEAR OR ABOVE OPTIMAL 130 - 159 mg/dl BORDERLINE HIGH 160 - 189 mg/dl HIGH >190 mg/dl VERY HIGH Performed By: #### LIPID, BNP, CMP #### [facility] [address] [place] [address] Dr. Hugo YangTriglyceride [Mass/Vol]98 mg/dLNormal<=150The [facility] Comment on above:Performed By: #### LIPID, BNP, CMP #### [facility] [address] [address] [address] Hugo YangVLDL CALC19.6 mg/dLNormalThe [facility] HospitalComment on above: Performed By: #### LIPID, BNP, CMP #### [facility] [address] [place] [address] Dr. Hugo Johnson 14(COMP METB)on [id number] [Mass/Vol]4.0 g/dLNormal 3.4-5.0The [facility] HospitalComment on above:Performed By: #### LIPID, BNP, CMP #### [facility] [address] [place] [address] Dr. Hugo YangAlbumin/Globulin [Mass ratio]1.3 {ratio}NormalThe [facility] HospitalComment on above:Performed By: #### LIPID, BNP, CMP #### [facility] [address] [place] [address] Dr. Hugo Brennan [Catalytic activity/Vol]82 U/MCqvejr12-295Woz [facility] HospitalComment on above:Performed By: #### LIPID, BNP, CMP #### [facility] [address] [place] [address] Dr. Hugo Davis [Catalytic activity/Vol]52 U/KOuwjda97-07Gog [facility] HospitalComment on above:Performed By: #### LIPID, BNP, CMP #### [facility] [address] [place] [address] Dr. Hugo Hendrix gap [Moles/Vol]12.9 mmol/LNormalThe [facility] Comment on above:Performed By: #### LIPID, BNP, CMP #### [facility] [address] [address] [address] Hugo YangAST [Catalytic activity/Vol]40 U/LCritically taqf67-55Zds [facility] HospitalComment on above:Performed By: #### LIPID, BNP, CMP #### [facility] [address] [address] [address] Hugo YangBilirubin [Mass/Vol]1.7 mg/dLCritically high0.2-1.0The [facility] HospitalComment on above:Performed By: #### LIPID, BNP, CMP #### [facility] [address] [address] [address] Hugo YangCalcium [Mass/Vol]9.2 mg/dLNormal8.5-10.1The [facility] Comment on above:Performed By: #### LIPID, BNP, CMP #### [facility] [address] [address] [address] Hugo YangChloride [Moles/Vol]103 mmol/GJblqjp91-254Jdt [facility] Comment on above:Performed By: #### LIPID, BNP, CMP #### [facility] [address] [address] [address] Hugo YangCO2 [Moles/Vol]28.9 mmol/MSolmfo52.0-32.0The [facility] Comment on above:Performed By: #### LIPID, BNP, CMP #### [facility] [address] [address] [address] Hugo YangCreatinine [Mass/Vol]1.12 mg/dLCritically high0.55-1.02The [facility] HospitalComment on above:Performed By: #### LIPID, BNP, CMP #### [facility] [address] [address] [address] Hugo RamachandranGFR-AF NSBEKEFZ35 mL/min/1.85g0Ztuzjmekbh low>=60The [facility] HospitalComment on above:Performed By: #### LIPID, BNP, CMP #### [facility] [address] [address] [address] Hugo RamachandranGFR-NON AF VWZXBYNP27 mL/min/1.11s7Talnvgahoq low>=60The [facility] HospitalComment on above:Performed By: #### LIPID, BNP, CMP #### [facility] [address] [place] [address] Dr. Hugo YangGlobulin (S) [Mass/Vol]3.1 g/dLNormAshtabula County Medical CenterComment on above:Performed By: #### LIPID, BNP, CMP #### [facility] [address] [place] [address] Dr. Hugo YangGlucose [Mass/Vol]128 mg/dLCritically kznb07-823Bpx [facility] HospitalComment on above:Performed By: #### LIPID, BNP, CMP #### [facility] [address] [place] [address] Dr. Hugo YangPotassium [Moles/Vol]4.8 mmol/LNormal3.5-5.1The [facility] Comment on above:Performed By: #### LIPID, BNP, CMP #### [facility] [address] [place] [address] Dr. Hugo YangProtein [Mass/Vol]7.1 g/dLNormal6.1-8.2The [facility] Comment on above:Performed By: #### LIPID, BNP, CMP #### [facility] [address] [place] [address] Dr. Hugo YangSodium [Moles/Vol]140 mmol/HAytzvk800-698Gat [facility] Comment on above:Performed By: #### LIPID, BNP, CMP #### [facility] [address] [place] [address] Dr. Hugo YangUrea nitrogen [Mass/Vol]23.0 mg/dLCritically high7.0-18.0The [facility] HospitalComment on above:Performed By: #### LIPID, BNP, CMP #### [facility] [address] [place] [address] Dr. Hugo YangUrea nitrogen/Creatinine [Mass ratio]20.5 mg/mgNoOhioHealth Grant Medical CenterComment on above:Performed By: #### LIPID, BNP, CMP #### [facility] [address] [address] [address] Hugo CarterCARDIAlthea M/2D COMPLETEon [id number] M/2D COMPLETE Patient: LLUVIA FERRARO Exam Date: 06/12/2021 : 1940 Gender:F Ordering : SHELDON GOTTLIEB Admission #: [id number] Family : DR OLE YANG M.D. Order #: [id number] CLICK HERE TO VIEW EXAM ECHOCARDIOGRAM REPORT [...] Area(A4C): 31.00 cm2 Left Atrium Systolic Volume(A2C): 283294 mm3 Left Atrium Systolic Volume(A4C): 804912 mm3 Mitral Valve MV E to A [...] Gradient: 2 mm[Hg] Right Atrium Dictated by: Ruddy Lucas M.D. on 06/12/2021 at 16:21 Approved by: Ruddy Lucas M.D. on 06/12/2021 at 16:27[facility] OhioCB AUTO DIFFon [id number] #0.0 103/ulNormal0.0-0.1The [facility] HospitalComment on above:Performed By: #### CBC #### [facility] [address] [place] [address] Dr. Hugo Hendersonsophils/100 WBC (Bld)0.6 %Normal0.2-2.0The [facility] Comment on above:Performed By: #### CBC #### [facility] [address] [place] [address] Dr. Hugo New #0.2 103/ulNormal0.0-0.7The [facility] HospitalComment on above: Performed By: #### CBC #### [facility] [address] [place] [address] Dr. Hugo Ramachandranosinophils/100 WBC (Bld)3.0 %Normal0.9-7.0The [facility] Comment on above:Performed By: #### CBC #### [facility] [address] [place] [address] Dr. Hugo Ramachandranrythrocyte distribution width (RBC) [Ratio]13.7 %Hvfdzs32.0-15.0 The [facility] HospitalComment on above:Performed By: #### CBC #### [facility] [address] [place] [address] Dr. Hugo YangHematocrit (Bld) [Volume fraction]42.1 %Ndcttq46.0-48.0The [facility] HospitalComment on above:Performed By: #### CBC #### [facility] [address] [place] [address] Dr. Hugo YangHemoglobin (Bld) [Mass/Vol]13.3 g/tHSilbph48.0-16.0The [facility] HospitalComment on above:Performed By: #### CBC #### [facility] [address] [place] [address] Dr. Hugo Hopkins #0.02 10e3/ulNormal0.00-0.03The [facility] HospitalComment on above:Performed By: #### CBC #### [facility] [address] [place] [address] Dr. Hugo Hopkins %0.3 %Normal0.0-0.5The [facility] HospitalComment on above: Performed By: #### CBC #### [facility] [address] [place] [address] Dr. Yilan ChangLYMPH #1.9 103/ulNormal1.2-3.8The [facility] HospitalComment on above:Performed By: #### CBC #### [facility] [address] [place] [address] Dr. Hugo Gonzalezmphocytes/100 WBC (Bld)29.2 %Jijtgh74.5-60.0The [facility] HospitalComment on above:Performed By: #### CBC #### [facility] [address] [place] [address] Dr. Hugo Pulido DIFF REQNONormalThe [facility] HospitalComment on above: Performed By: #### CBC #### [facility] [address] [place] [address] Dr. Hugo Jimenez (RBC) [Entitic mass]30.4 lxXpvrtk57.7-34.0The [facility] HospitalComment on above:Performed By: #### CBC #### [facility] [address] [place] [address] Dr. uHgo Jimenez (RBC) [Mass/Vol]31.6 g/sZYwpkjd28.9-35.2The [facility] HospitalComment on above:Performed By: #### CBC #### [facility] [address] [place] [address] Dr. Hugo Wallace (RBC) [Entitic vol]96.3 rHDlstxb19.0-99.0The [facility] HospitalComment on above:Performed By: #### CBC #### [facility] [address] [place] [address] Dr. Hugo Saavedra #0.6 103/ulNormal0.3-0.8The [facility] HospitalComment on above:Performed By: #### CBC #### [facility] [address] [place] [address] Dr. Hugo Dumontocytes/100 WBC (Bld)8.5 %Normal1.7-12.0The [facility] Comment on above:Performed By: #### CBC #### [facility] [address] [place] [address] Dr. Hugo Tierney #3.8 103/ulNormal1.4-6.5The [facility] HospitalComment on above:Performed By: #### CBC #### [facility] [address] [place] [address] Dr. Hugo Prattutrophils/100 WBC (Bld)58.4 %Vogjtq23.0-75.0The [facility] HospitalComment on above:Performed By: #### CBC #### [facility] [address] [place] [address] Dr. Hugo YangPlatelet mean volume (Bld) [Entitic vol]10.9 fLNormal9.5-13.5The [facility] HospitalComment on above:Performed By: #### CBC #### [facility] [address] [place] [address] Dr. Hugo YangPLT163 103/gySbalpd860-483Vqq [facility] HospitalComment on above: Performed By: #### CBC #### [facility] [address] [place] [address] Dr. Hugo YangRBC4.37 106/ulNormal4.20-5.40The [facility] HospitalComment on above:Performed By: #### CBC #### [facility] [address] [place] [address] Dr. Hugo YangWBC6.6 103/ulNormal4.0-11.0The [facility] HospitalComment on above: Performed By: #### CBC #### [facility] [address] [place] [address] Dr. Hugo YangPROF CHEM 8 (BAS METB)on 66-48-6181Utqva gap [Moles/Vol]13.9 mmol/LNormalThe [facility] HospitalComment on above:Performed By: #### FT3, TSH #### [facility] [address] [place] [address] Dr. Hugo YangCalcium [Mass/Vol]9.5 mg/dLNormal8.5-10.1The [facility] Comment on above:Performed By: #### FT3, TSH #### [facility] [address] [address] [address] Hugo YangChloride [Moles/Vol]105 mmol/LPdszch54-634Dgg [facility] Comment on above:Performed By: #### FT3, TSH #### [facility] [address] [address] [address] Hugo YangCO2 [Moles/Vol]27.7 mmol/QKosjzs11.0-30.0The [facility] Comment on above:Performed By: #### FT3, TSH #### [facility] [address] [address] [address] Hugo YangCreatinine [Mass/Vol]1.19 mg/dLCritically high0.52-1.04The [facility] HospitalComment on above:Performed By: #### FT3, TSH #### [facility] [address] [place] [address] Dr. Arias ChangEGFR-AF ZHZWIWHT03 mL/min/1.42y2Rofkfmkegh low>=60The [facility] HospitalComment on above:Performed By: #### FT3, TSH #### [facility] [address] [address] [address] Hugo RamachandranGFR-NON AF YIRQCZHG40 mL/min/1.86i9Wqzoyjcfkr low>=60The [facility] HospitalComment on above:Performed By: #### FT3, TSH #### [facility] [address] [address] [address] Hugo YangGlucose [Mass/Vol]112 mg/dLCritically pwjq97-046Rzo [facility] HospitalComment on above:Performed By: #### FT3, TSH #### [facility] [address] [place] [address] Dr. Hugo YangPotassium [Moles/Vol]4.6 mmol/LNormal3.4-5.0The [facility] Comment on above:Performed By: #### FT3, TSH #### [facility] [address] [place] [address] Dr. Hugo YangSodium [Moles/Vol]142 mmol/DHxemwx509-471Djl [facility] Comment on above:Performed By: #### FT3, TSH #### [facility] [address] [place], [place] [address] Dr. Hugo YangUrea nitrogen [Mass/Vol]28.0 mg/dLCritically high7.0-18.0The [facility] HospitalComment on above:Performed By: #### FT3, TSH #### [facility] [address] [place], [place] [address] Dr. Hugo YangUrea nitrogen/Creatinine [Mass ratio]23.5 mg/mgNoOhioHealth Grant Medical CenterComment on above:Performed By: #### FT3, TSH #### [facility] [address] [address] [address] Hugo Miranda, HIGH SENSITIVITYon 20-16-3841FQIKAB78.1 pg/mLNormal 4.0-35.5The [facility] HospitalComment on above:Result Comment: CUT-OFF POINTS HAVE BEEN ESTABLISHED BASED ON THE FOURTH UNIVERSAL DEFINITIONS OF MYOCARDIAL INFARCTION. THE UPPER REFERENCE LIMIT (URL) OF TROPONIN, DEFINED THE 99TH PERCENTILE OF cTnI DISTRIBUTION IN A REFERENCE POPULATION, HAS BEEN CONFIRMED THE DECISION THRESHOLD FOR ID DIAGNOSIS.Performed By: #### FT3, TSH #### [facility] [address] [address] [address] Hugo YangXR CHEST 1 Von [id number] CHEST 1 VEXAMINATION: XR CHEST 1 V HISTORY: SHORTNESS OF BREATH COMPARISON: [...] Electronically authenticated by: JOEL ANDINO Date: 2021-06-04 11:09NormalThe [facility] HospitalCardiovascular Lab Reporton [id number] Lab Report [facility] Patient Name: J[facility] MR #: [id number] Physician: Keanu Kline MD Department of Service Date: 12/28/2020 Medicine Birthdate: 1940 Division of Room #: CC Cardiology Adult Cardiovascular Services [facility] [address] [place], [place] [address] Cardiovascular Laboratory Report AV NODE ABLATION PROCEDURE REPORT DATE OF PROCEDURE: 12/28/2020 PERFORMING PHYSICIAN: Dr. Keanu Kline CONSENT: Patient NAME OF THE PROCEDURE: AV [...] prepped and draped. Under ultrasound guidance, an 8-Malian venous access was procured, and a short [...] in 1 month. 3. Continue anticoagulation. Keanu Kline MD Cardiac Electrophysiology. Electronically Signed by: Keanu Kline MD 01/02/2021 01:38 P Keanu Kline MD Date Dict: 12/28/2020/03:34 P/Keanu Kline MD Date Trans: 12/28/2020 04:43 P/donna DN_JN:[id number] cc: Ole Yang M.D. [address] [place], [place] [address]Cardiovascular Lab Reporton [id number] Lab ReportUnUniversity [facility]als [facility]: [facility] MR #: [id number] Physician: Keanu Kline MD Department of Service Date: 11/19/2020 Medicine Birthdate: 1940 Division of Room #: Cardiology Adult Cardiovascular Services [address] [place] [address] Cardiovascular Laboratory Report PACEMAKER IMPLANT PROCEDURE NOTE DATE OF PROCEDURE: 11/19/20 PERFORMING PHYSICIAN: Dr. Keanu Kline CONSENT: Patient LOCATION: EP Lab PROCEDURE PERFORMED: 1. Implantation of pacemaker ([employer]) 2. Ultrasound guided venous access INDICATIONS: [...] using modified seldinger technique using a 5 Malian micro-puncture needle on one occasion and 0.35 wire was placed. Local infiltration of 1% Lidocaine was performed, and an incision was created in the left upper chest. Dissection was then performed using cautery down to the fascial plane above the muscle. A small pocket was created for the device. 8 Malian Safesheath was placed over the wire. Then a His sheath was advanced over a glide wire into the right ventricle. The wire and dilator was then removed. An active fixation [employer] pacing lead was then delivered through the His sheath to the right ventricle. I identified an area where pacing revealed a QRS of 120ms in unipolar configuration. After confirmation of lead position on orthogonal views (PTAEL and FATUMA) to confirm septal position, the [...] immediate procedural complications were noted. Device info: [employer] Accolade MRI EL SR IS1 Model# L310 Serial# [id number] RV lead: Model# [id number] (59cms) Serial# [id number] Sensin.3mV Threshold: 0.6V@0.4ms Impedance: 655 Ohms POST [...] AV node ablation in 4 weeks. Keanu Kline MD Cardiac Electrophysiology Electronically Signed by: Keanu Kline MD 11/19/2020 08:12 P Keanu Kline MD Date Dict: 11/19/2020 (more content not included)...NormalThe [facility] Vital Signs Date TimeVital SignValuePerforming CbnbygyzkOvorlarc34-71-4986 08:58-0400Body ohanca047.2 cmOle Yang MD Work Phone: [facility] HealthMisobciusw11-93-1857 08:58-0400Body mass index (BMI) [Ratio]27.88 kg/f4VavshuOle Yang MD Work Phone: [facility] HealthWguorqshds82-51-3568 08:58-0400Body .74 kgOle Yang MD Work Phone: [facility] HealthNiwyxmhuyq53-59-2220 08:58-0400Diastolic blood pympzeni79 mm[Hg]Ole Yang MD Work Phone: [facility] HealthQgxxzrgufs97-37-9421 08:58-0400Heart rate70 /min Ole Yang MD Work Phone: [facility] HealthGnmsnlcxsi99-18-6949 08:58-3762YiA0% (BldA) [Mass fraction]98 %Ole Yang MD Work Phone: [facility] HealthXbbqehkbpp66-93-3168 08:58-0400Systolic blood tarlhxdv626 mm[Hg]Ole Yang MD Work Phone: [facility] HospitalRgjbuyuipc30-28-7226 10:04-0400Body zdsunc774.6 cmAcallie Jo MD Work Phone: [facility] HospitalEcfanukgxc52-02-9597 10:04-0400Body mass index (BMI) [Ratio]30.9 kg/x2RnqjeTeri Jo MD Work Phone: [facility] HospitalZphvrusbvn74-09-4345 10:04-0400Body igqxeu00.65 kgTeri Jo MD Work Phone: [phone] [place], [place] [address]Vovljzizkz12-90-4349 10:04-0400Heart rate69 /min Teri Jo MD Work Phone: [facility] HealthHrzwykortv12-72-3977 10:04-0400Respiratory rate16 /minTeri Jo MD Work Phone: [phone] Memorial HospitalBlagauqumh42-20-7128 10:04-0196DlN3% (BldA) [Mass fraction]95 %Teri Jo MD Work Phone: [facility] HealthQekvidmrwz58-07-6577 14:25-0400Body yottoi872.2 cmDakylie Yang MD Work Phone: [facility] HealthSafikkpwej47-15-0313 14:25-0400Body mass index (BMI) [Ratio]28.66 kg/e0QneydkOle Yang MD Work Phone: [facility] HealthCqvndmwpuq11-83-2373 14:25-0400Body temperature 100.8 [degF]Ole Yang MD Work Phone: [facility] HealthKyaplgllku84-61-5365 14:25-0400Body mmovfn49.01 kgOle Yang MD Work Phone: [facility] HealthMdtyuztdzb91-55-5267 14:25-0400Diastolic blood obbgtrjt75 mm[Hg]Ole Yang MD Work Phone: [facility] HealthMitkgyyyel79-82-4774 14:25-0400Heart rate71 /min Oel Yang MD Work Phone: [facility] HospitalMjzzhslyoa75-85-7367 14:25-5894YaY0% (BldA) [Mass fraction]93 %Ole Yang MD Work Phone: [facility] HealthFwyetecxeb82-28-0877 14:25-0400Systolic blood aqvwocxk978 mm[Hg]Ole Yang MD Work Phone: [facility] HealthZqixoznbfx21-91-6539 15:05-0400Body .2 cmSamen Hemmer PA Work Phone: [facility] HealthFdxcutliye45-48-5624 15:05-0400Body mass index (BMI) [Ratio]27.44 kg/c6Ahkmq Hemmer PA Work Phone: [facility] HealthBgxzczyzrb91-97-7513 15:05-0400Body eczegz74.47 kgSamen Hemmer PA Work Phone: [facility] HealthPqbuhglrvl74-78-8414 15:05-0400Diastolic blood lbjxygle49 mm[Hg]Dipti Hemmer PA Work Phone: [facility] HealthIkoonoxoyy54-61-0234 15:05-0400Heart rate71 /min Dipti Hemmer PA Work Phone: [facility] HealthLmahsnusar65-67-8045 15:05-0400Respiratory rate16 /minDipti Varelamer PA Work Phone: [facility] HospitalHmktrsuxen97-81-3374 15:05-0217NqJ3% (BldA) [Mass fraction]99 %Dipti Hemmer PA Work Phone: noCr[facility]al HealthCtgtsbdbpv86-67-1423 15:05-0400Systolic blood xkwykeky151 mm[Hg]Dipti Varelamer PA Work Phone: [facility] HospitalVrzoeyqfde20-66-3168 16:49-0400Inhaled oxygen flow rate2 L/minMichael Zapien Work Phone: 1(165)[address] [place], [place] 0466209-18-2025 16:00-0400 Body qhitmzbbeif42.1 [degF]Michael Zapien Work Phone: 1(144)[address] [place], [place] 0466209-18-2025 16:00-0400 Diastolic blood qawosrni87 mm[Hg]Michael Zapien Work Phone: 1(148)[address] [place], [place] 0466209-18-2025 16:00-0400 Heart rate69 /minMichael Zapien Work Phone: 1(287)[address] [place], [place] 0466209-18-2025 16:00-0400 Respiratory rate18 /minMichael Zapien Work Phone: 1(431)[address] [place], [place] 0466209-18-2025 16:00-0400 SaO2% (BldA) [Mass fraction]97 %Michael Zapien Work Phone: 1(299)[address] [place], [place] 0466209-18-2025 16:00-0400 Systolic blood itjaqbzn218 mm[Hg]Michael Zapien Work Phone: 1(364)[address] [place], [place] 0466209-18-2025 06:00-0400 Body bojypj61 kgMichael Zapien Work Phone: 1(012)[address] [place], [place] 0466209-16-2025 14:00-0400 Body rmjfpu554.18 cmRrene Zapien Work Phone: 1(978)[address] [place], [place] 0466209-15-2025 23:07-0400 Diastolic blood vuqqzuua92 mm[Hg]Ole Yang KHRIS Work Phone: 1(839)[address]09-15-2025 23:07-0400 Heart rate69 /Venecia Yang II Work Phone: 1(019)[address] [place], [place] 2757609-15-2025 23:07-0400 Inhaled oxygen flow rate2 L/Venecia Yang II Work Phone: 1(293)[address] [place], [place] 2757609-15-2025 23:07-0400 Respiratory rate20 /Venecia Yang II Work Phone: 1(855)[address] [place], [place] 2757609-15-2025 23:07-0400 SaO2% (BldA) [Mass fraction]100 %Ole Trey PINEDO Work Phone: 1(978)[address] [place], [place] 2757609-15-2025 23:07-0400 Systolic blood mm[Hg]Ole Yang KHRIS Work Phone: 1(236)[address] [place], [place] 2757609-15-2025 17:32-0400 Body kxydwjothyb16.9 [degF]Ole Yang KHRIS Work Phone: 1(585)[address] [place], [place] 2757609-15-2025 15:58-0400 Body tlqvxo774.18 cmDarobbieziggy Trey PINEDO Work Phone: 1(538)[address] [place], [place] 2757609-15-2025 15:58-0400 Body .65 kgOle Yang II Work Phone: 1(294)[address] [place], [place] 2757609-15-2025 13:32-0400 Body oydfgd597.2 cmOle Yang MD Work Phone: [facility] HospitalJlypzoxeih99-39-9002 13:32-0400Body mass index (BMI) [Ratio]26.47 kg/x0IhwhmjOle Yang MD Work Phone: [facility] HospitalWvikioyhek25-80-0171 13:32-0400Body yjeesl07.66 kgOle Yang MD Work Phone: [facility] HospitalMmbyzbgztx74-09-6598 13:32-0400Diastolic blood wlcymwpq92 mm[Hg]Ole Yang MD Work Phone: [facility] HealthNlzzodtkxi07-65-0120 13:32-0400Heart rate71 /min Ole Yang MD Work Phone: [facility] HealthPryldynxnj42-59-9698 13:32-3339GcQ9% (BldA) [Mass fraction]100 %Ole Yang MD Work Phone: [facility] HealthXiabmnearu43-13-4415 13:32-0400Systolic blood zitodbah078 mm[Hg]Ole Yang MD Work Phone: [facility] HealthJdxvldjycc97-98-6793 10:46-0400Body zafunw957.2 cmNicole Baum DIRECTOR OF RESERVATIONS Work Phone: [facility] HealthUhmyyualhn73-59-5197 10:46-0400Body mass index (BMI) [Ratio]26.78 kg/m2Donaldogarry Bautista DIRECTOR OF RESERVATIONS Work Phone: [facility] HealthGtifpetcjz88-45-4983 10:46-0400Body lwphii51.56 kgDonaldogarry Bautista DIRECTOR OF RESERVATIONS Work Phone: [facility] HealthRlxtzskvlr92-79-7098 10:46-0400Diastolic blood etmvbjwh20 mm[Hg]Nicole Baum DIRECTOR OF RESERVATIONS Work Phone: [facility] HealthFiytadrrrd27-13-3914 10:46-0400Heart rate69 /min Nicole Baum DIRECTOR OF RESERVATIONS Work Phone: [facility] HealthXgotcoeiur96-93-7917 10:46-0400Respiratory rate17 /minKigarry Bautista DIRECTOR OF RESERVATIONS Work Phone: [facility] HealthWenrphieet25-25-4957 10:46-5355CgZ8% (BldA) [Mass fraction]96 %Nicole Baum DIRECTOR OF RESERVATIONS Work Phone: [facility] HealthRlzrugpqom82-56-3772 10:46-0400Systolic blood lkodidft138 mm[Hg]Nicole Baum DIRECTOR OF RESERVATIONS Work Phone: [facility] HealthDvuihkrnwi73-15-1063 09:39-0400Body zlhiim533.2 cmKenneth Skinner DPM Work Phone: [facility] HealthEfehcsqfoq92-26-2520 09:39-0400Body mass index (BMI) [Ratio]26.94 kg/x5TficecbzKenneth Skinner DPM Work Phone: noCrittenton Behavioral HealthAvdiasxrth42-61-7723 09:39-0400Body eycfpd98.02 kgKenneth Etienne DPM Work Phone: noCrittenton Behavioral HealthVnooxtvflx18-79-4790 09:39-0400Respiratory rate18 /minKenneth Etienne DPM Work Phone: noCrittenton [facility]al HealthAsuytctcbm67-88-9203 09:59-0400Body mjvzfu053.6 cmOle Yang MD Work Phone: [facility] HealthKdogjcfmah75-82-0033 09:59-0400Body mass index (BMI) [Ratio]27.92 kg/g1PwkwanOle Yang MD Work Phone: [facility] HealthGxtwscaihb07-79-5969 09:59-0400Body agteig02.47 kgOle Yang MD Work Phone: [facility] HospitalXztjzxqdgh71-18-0165 09:59-0400Diastolic blood dcsvkfao87 mm[Hg]Ole Yang MD Work Phone: [facility] HealthGfycajeejl41-57-8788 09:59-0400Heart rate70 /min Ole Yang MD Work Phone: [facility] HealthHmtutilybj11-98-4589 09:59-4632ZlL6% (BldA) [Mass fraction]98 %Ole Yang MD Work Phone: [facility] HealthTncmfpxaey55-20-7675 09:59-0400Systolic blood vbqjofyr334 mm[Hg]Ole Yang MD Work Phone: [facility] HealthZemefribqd94-18-3425 14:30-0400Body .6 cmOle Yang MD Work Phone: [facility] HealthXmisrsohzy19-45-8503 14:30-0400Body mass index (BMI) [Ratio]27.76 kg/s1DafhqlOle Yang MD Work Phone: [facility] HealthLvwsdoabuq37-72-4945 14:30-0400Body tturdz59.02 kgOle Yang MD Work Phone: noCrittenton [facility]al HealthKtrodjqazj94-03-3007 14:30-0400Diastolic blood yubqxqwg50 mm[Hg]Ole Yang MD Work Phone: [facility] HospitalZfoqhvglin19-75-4227 14:30-0400Heart rate70 /min Ole Yang MD Work Phone: [facility] HospitalDythubdibt52-69-3400 14:30-0400Respiratory rate17 /minDprince Yang MD Work Phone: [facility] HospitalQrbxlxzyzd18-87-7415 14:30-3996XgA7% (BldA) [Mass fraction]99 %Ole Yang MD Work Phone: [facility] HospitalDvnfafzjtw33-18-3177 14:30-0400Systolic blood uqnuxuzx868 mm[Hg]Ole Yang MD Work Phone: [facility] HospitalDtyzjkukyf13-39-9202 09:47-0400Body ilipbn083.6 cmSamen Hemmer PA Work Phone: 1(031)[facility] HospitalUyeyhczdam47-17-6173 09:47-0400Body mass index (BMI) [Ratio]28.47 kg/c1Ivrwf Hemmer PA Work Phone: 1(483)[facility] HospitalDuxkmjcauc24-56-5492 09:47-0400Body temperature 99.19 [degF]Dipti Hemmer PA Work Phone: 1(297)[facility]0119[facility] HospitalMrrbobgvup57-55-0269 09:47-0400Body idewbc51.02 kgSamen Hemmer PA Work Phone: 1([phone] HospitalYhprdwbliu98-33-0363 09:47-0400Diastolic blood ulyvthmt52 mm[Hg]Dipti Hemmer PA Work Phone: [place] [address]Pomcnrlkaj70-44-5661 09:47-0400Heart rate70 /min Dipti Hemmer PA Work Phone: 1(857)[facility]-[address] [address]Zeakyvdbqz46-74-4815 09:47-0400Respiratory rate16 /minSamen Hemmer PA Work Phone: [place] [address]Biwtcykxst46-08-7300 09:47-0629AmO5% (BldA) [Mass fraction]99 %Dipti Hemmer PA Work Phone: [facility] HealthFcdamppzun88-79-0059 09:47-0400Systolic blood vyogwykw414 mm[Hg]Dipti VEGA Work Phone: [facility] HospitalPbhcggphly48-34-8601 10:07-0400Body ehhfqe899.2 Irlanda Jo MD Work Phone: [facility] HospitalYlaschtpuv28-42-9962 10:07-0400Body mass index (BMI) [Ratio]27.88 kg/x2JakbxTeri Jo MD Work Phone: [facility] HospitalVdzivvlkxp75-31-5831 10:07-0400Body .74 kgTeri Jo MD Work Phone: [facility] HospitalJhdlkwachd28-20-7246 10:07-0400Diastolic blood ssesqmzh40 mm[Hg]Teri Jo MD Work Phone: [facility] HospitalTwglahqhmy70-54-9827 10:07-0400Heart rate70 /min Teri Jo MD Work Phone: [place] [address]Lfzmueelcu02-16-5951 10:07-0400Respiratory rate16 /minTeri Jo MD Work Phone: [facility] HospitalJedqascrch03-83-5169 10:07-2556IeW5% (BldA) [Mass fraction]89 %Teri Jo MD Work Phone: [facility] HospitalTlgndkbqff03-39-8325 10:07-0400Systolic blood qkmcueqz660 mm[Hg]Teri Jo MD Work Phone: [facility] HealthYqesaqzsyw79-56-8111 09:57-0500Body lijfsc992.6 cmOle Yang MD Work Phone: [facility] HealthKtusxmqguf76-43-2525 09:57-0500Body mass index (BMI) [Ratio]28.25 kg/n5FmvvomOle Yang MD Work Phone: [facility] HealthWmtqwudact45-58-7334 09:57-0500Body oubfha75.38 kgOle Yang MD Work Phone: [facility] HospitalRlolldamfm68-33-8476 09:57-0500Diastolic blood szrqumov73 mm[Hg]Ole Yang MD Work Phone: [facility] HospitalCwnhjcntco22-01-4101 09:57-0500Heart rate69 /min Ole Yang MD Work Phone: [facility] HospitalYydvwymaox53-49-8691 09:57-1404JsK5% (BldA) [Mass fraction]98 %Ole Yang MD Work Phone: [facility] HospitalPwmhpedplp81-20-9973 09:57-0500Systolic blood mikqrkhz394 mm[Hg]Ole Yang MD Work Phone: [facility] HospitalTboulwjbqx65-56-3907 10:03-0500Body khpsbu744.6 cmKaren Hemmer PA Work Phone: [facility] HospitalIhkmhyylzf86-29-3510 10:03-0500Body mass index (BMI) [Ratio]28.89 kg/m5Jdubb Hemmer PA Work Phone: [facility] HospitalJlktqamcrd10-49-8585 10:03-0500Body rhyscv50.19 kgKaren Hemmer PA Work Phone: [facility] HospitalFpqhxhtkla29-70-4950 10:03-0500Diastolic blood aiqqluar87 mm[Hg]Dipti Hemmer PA Work Phone: [facility] HospitalQhzjnuacbi38-20-1701 10:03-0500Heart rate74 /min Dipti Hemmer PA Work Phone: [facility] HospitalRilsopvihf58-89-8988 10:03-0500Respiratory rate20 /minKaren Hemmer PA Work Phone: [facility] HospitalStgxxpigbb56-05-3000 10:03-9540GeI9% (BldA) [Mass fraction]99 %Dipti Hemmer PA Work Phone: [facility] HospitalTegfyevzeu09-06-4933 10:03-0500Systolic blood xbayggrw748 mm[Hg]Dipti Hemmer PA Work Phone: 1(709)[facility]-[address] [place], [place] [address]Ykpsfxtfgw53-46-3612 10:08-0400Body bylzjo935.6 cmAcallie Jo MD Work Phone: [facility] HospitalLvtietdwln62-66-9679 10:08-0400Body mass index (BMI) [Ratio]28.73 kg/b1HrwczTeri Jo MD Work Phone: [facility] HospitalEvkyheytmj57-20-8130 10:08-0400Body eeqqhx83.74 kgTeri Jo MD Work Phone: 1(251)409-[address] [place], [place] [address]Szonwjgaya37-77-4619 10:08-0400Diastolic blood zegmxtks43 mm[Hg]Teri Jo MD Work Phone: [phone] HospitalVuyjcyjrrj02-54-1100 10:08-0400Heart rate87 /min Teri Jo MD Work Phone: 1(085)801-38[facility] HospitalAzvtyzlada93-84-2664 10:08-0400Respiratory rate18 /minTeri Jo MD Work Phone: 1(084)[address] [place], [place] [address]Iweegjwcfo62-19-5441 10:08-0400Systolic blood psparvru183 mm[Hg]Teri Jo MD Work Phone: 1([phone] HospitalYumjlwjuqd59-19-7482 09:56-0400Body jvirid052.2 cmDipti Hemmer PA Work Phone: 1(633)723-5[facility] HospitalIrpeitdjyf69-77-9380 09:56-0400Body mass index (BMI) [Ratio]27.82 kg/t4Vqkxv Hemmer PA Work Phone: [facility] HospitalQfttguuxmx42-05-5125 09:56-0400Body vwircl08.56 kgDipti Hemmer PA Work Phone: [phone] HospitalObnhmdlxxi36-98-6716 09:56-0400Diastolic blood bnrmzzfu17 mm[Hg]Dipti Wolf PA Work Phone: [facility] HealthcareComment on above:home BP monitor 141/81 11-26-2023 09:56-0400Heart rate71 /minDipti Varelamer PA Work Phone: [facility] HospitalDzyksaqaxa41-55-8857 09:56-0400Respiratory rate16 /minDipti VEGA Work Phone: [facility] HealthLpxmuxneyl84-82-4622 09:56-3915AkX3% (BldA) [Mass fraction]99 %Dipti VEGA Work Phone: [facility] HealthScapjxhjey52-69-6422 09:56-0400Systolic blood snfmibhc485 mm[Hg]Dipti VEGA Work Phone: [facility] HealthcareComment on above:home BP monitor 141/81 02-11-2023 14:43-0500Body qjzman247.2 cmOle Yang MD Work Phone: [facility] HealthRbxewcqxhi27-40-9488 14:43-0500Body mass index (BMI) [Ratio]26.94 kg/w2HebalhOle Yang MD Work Phone: [facility] HospitalIuvmhbobth78-72-1223 14:43-0500Body ublevy16.02 kgOle Yang MD Work Phone: [facility] HospitalYbrmgcwang62-71-8975 14:43-0500Diastolic blood grxhvamc93 mm[Hg]Ole Yang MD Work Phone: [facility] HealthCettgreray17-20-4649 14:43-0500Heart rate76 /min Ole Yang MD Work Phone: [facility] HealthBbreykzyxv18-07-8329 14:43-0500Systolic blood ekaksuqa228 mm[Hg]Ole Yang MD Work Phone: [facility] Encounters Encounter DateEncounter TypeCare ProviderFacilityStart: 12-14-2024 End: 73-16-7113Ntuwqh flowsheetOle Yang MD Work Phone: [facility] MedinceStart: 12-14-2024 End: 60-66-8373Fwiapk flowsheetOle Yang MD Work Phone: [facility] MedinceStart: 12-14-2024 End: 39-38-5384Khffbh outpatient visit 25 minutesDakylie Yang MD Work Phone: NOIB [employer] MedinceComment on above:Type 2 diabetes mellitus with other specified complication, without long-term current use of insulin (HCC) (Primary Dx); Chronic combined systolic (congestive) and diastolic (congestive) heart failure (HCC); Coronary artery 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 angina pectoris; Hyperthyroidism; Pure hypercholesterolemia; Chronic kidney disease, stage 3b ([facility]-HCC)Start: 12-14-2024 End: 36-20-1408kjzstagwotSUGHYI B BERRYNot AvailableStart: 12-12-2024 End: 60-30-2592uxteejwrugTXCKCorey Hospital CenterStart: 11-30-2024 End: 68-02-4735Ilnrtb Antonio Jo MD Work Phone: N[facility]ocrinologyStart: 11-30-2024 End: 42-70-7842Tygogsstacy Jo MD Work Phone: [facility]oms [place] EndocrinologyStart: 11-30-2024 End: 56-39-8153Qdujmr outpatient visit 25 minutesTeri Jo MD Work Phone: [facility] [place] EndocrinologyComment on above: Hyperthyroidism (Primary Dx); Multinodular goiter; Longstanding persistent atrial fibrillation (HCC)Start: 11-30-2024 End: 19-90-3260aoeklswndaCAJJF F SABBAGHNot AvailableStart: 11-28-2024 End: 85-27-1046Saulky outpatient visit 25 minutesOle Yang MD Work Phone: NOWM [employer] MedinceComment on above: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) (Primary Dx); Acute bronchitis, unspecified organismStart: 11-28-2024 End: 73-51-8498blmzanghpeXNXTUE B BERRYNot AvailableStart: 11-28-2024 End: 95-79-0151Uekqlularissa Yang MD Work Phone: NOMI [employer] MedinceStart: 11-28-2024 End: 70-42-7738Xziedd Anson Yang MD Work Phone: [facility] MedinceStart: 68-78-3625ltdoobftmn [facility] Daytontart: 11-21-2024 End: 21-61-6740swgoyenjikJwfpbe Yang II Work Phone: [facility] Work Phone: Start: 11-21-2024 End: 01-15-5806Ftrubnk encounter procedureKenneth Jung [facility] Work Phone: Start: 11-15-2024 End: 10-72-6070gxefwfzzhjFrglan Berry II Work Phone: [facility] Work Phone: Start: 11-15-2024 End: 50-61-3944Vviqriv encounter procedureKenneth Jung [facility] Work Phone: Start: 09-55-6786apnvoeklqeQPXV [facility] Daytontart: 11-08-2024 End: 61-61-6933Ugmhndcwgjwq care manage srvc 7 day dischargeDipti VEAG Work Phone: [facility] MedinceComment on above: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); Panlobular emphysema (HCC); Frequent falls; History of stroke without residual deficits; Supplemental oxygen dependent; Age-related osteoporosis without current pathological fracture ; Hyperkalemia; Impaired fasting glucose; Chronic kidney disease, stage 3b (CMS-HCC); Essential hypertensionStart: 11-08-2024 End: 32-49-5859ybksugyggeTMCTUSindhu Cruz AvailableStart: 11-08-2024 End: 61-49-8456Jomkmgstacy VEGA Work Phone: [facility] MedinceStart: 11-08-2024 End: 85-30-6388Hmstyustacy VEGA Work Phone: [facility] MedinceStart: 11-07-2024 End: 03-19-7842xudjjjdhwsTxgige Berry II Work Phone: [facility] Work Phone: Start: 11-07-2024 End: 39-46-6929Hqxqemm encounter procedureKenneth Jung PhD-[facility] Work Phone: Start: 29-56-9774Vxs-patient / Non-visitMMansoor Adkins-Heart Rhythm ClinicStart: 10-31-2024 End: 66-71-3865Ctszlchehc and management of inpatientKamaljit Ziegler [address] Critical Care Work Phone: Start: 27-06-5826Wvj-patient / Non-visitAdam Nathan [facility] Work Phone: Start: 10-31-2024 End: 13-23-7253Wfuvqk Anson Yang MD Work Phone: [facility] MedinceStart: 10-31-2024 End: 50-46-2072Zczupzstacy Yang MD Work Phone: [facility] MedinceStart: 10-31-2024 End: 59-89-3169Deflwb outpatient visit 40 minutesDakylie Yang MD Work Phone: [facility] MedinceComment on above:Mild cognitive impairment (Primary Dx); Major depressive disorder, remission status unspecified, unspecified whether recurrent ; Chronic combined systolic (congestive) and diastolic (congestive) heart failure (HCC); Memory changes; Anxiety; Right sided sciatica; Impaired gait and mobilityStart: 10-31-2024 End: 45-73-7748vnewzwcdenZTSNOI B BERRYNot AvailableStart: 10-19-2024 End: 07-15-4303Bodyjwwhv Result Trent Baum NP Work Phone: NOM[facility] External Department UnsolicitedStart: 10-19-2024 End: 75-05-5337Momkwgahd Result EncounterNicole Baum DIRECTOR OF RESERVATIONS Work Phone: noms External Department UnsolicitedStart: 10-13-2024 End: 32-97-2884Wsjemj Messi Skinner DPM Work Phone: NO[facility] CI PODIATRYStart: 10-13-2024 End: 59-18-2389Ecjpoz Messi Skinner DPM Work Phone: NOIS CI PODIATRYStart: 10-13-2024 End: 93-64-5604Twfafx outpatient visit 25 minutesNicole Baum DIRECTOR OF RESERVATIONS Work Phone: NORE [facility] MedinceComment on above:Dementia with behavioral disturbance (HCC) (Primary Dx); Age-related osteoporosis without current pathological fracture ; Fatigue, unspecified type; Anxiety; Right sided sciatica; Chronic respiratory failure, unspecified whether with hypoxia or hypercapnia (HCC); Chronic respiratory failure with hypoxia (HCC)Start: 10-13-2024 End: 66-73-5980bgpvknsipcJKS C MILLERNot AvailableStart: 10-13-2024 End: 51-53-3842Scbcbv outpatient new 30 minutesKenneth Skinner DPM Work Phone: noms CI PODIATRYComment on above:Venous insufficiency (Primary Dx); Deformity of toenail; Pain due to onychomycosis of toenails of both feetStart: 87-75-7286iaagtcscvh NILE GRUBBUniUpper Valley Medical Centertart: 09-26-2024 End: 82-65-5724Pdjeesszs Result EncounterDakylie Yang MD Work Phone: noms External Department UnsolicitedStart: 09-26-2024 End: 02-57-8531Pkjdpigdl Result EncounterDakylie Yang MD Work Phone: noms External Department UnsolicitedStart: 09-26-2024 End: 86-33-2354Blicrchi Result EncounterOle Yang MD Work Phone: noms External Department UnsolicitedStart: 09-26-2024 End: 64-85-4715atusxarptkPjehle BerryUpper Valley Medical Center Work Phone: Start: 09-26-2024 End: 68-49-1198Elbwmeym Sandeep Yang II, MD-LAB [facility] Start: 09-14-2024 End: 11-38-5098Bvnrqo flowsPierre Yang MD Work Phone: [facility] MedinceStart: 09-14-2024 End: 76-89-3563Rxrrav flowsPierre Yang MD Work Phone: [facility] MedinceStart: 09-14-2024 End: 38-57-5787Huninu outpatient visit 25 minutesOle Yang MD Work Phone: noms [facility] MedinceComment on above:Chronic kidney disease, stage 3b (CMS-HCC) (Primary Dx); Chronic combined systolic (congestive) and diastolic (congestive) heart failure (HCC); Supplemental oxygen dependent; Anxiety; Hyperthyroidism ; Coronary artery 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 angina pectoris ; Panlobular emphysema (HCC); Deformity of toenailStart: 09-14-2024 End: 39-50-8207mfqcirkankGFAHDU B BERRYNot AvailableStart: 09-06-2024 End: 25-43-8226FxifaqMkxilc B Berry MD Work Phone: noms CI FMComment on above:AnxietyStart: 09-02-[address]I [address] – Patients Medical Centertart: 08-18-2024 End: 18-80-5604Eskrgkduz Result EncounterGeneric External Data ProviderNOMS External Department UnsolicitedStart: 08-18-2024 End: 17-24-3562Raxillyqr Result EncounterGeneric External Data ProviderNOMS External Department UnsolicitedStart: 08-15-2024 End: 99-73-8731Nkcvlf outpatient visit 25 minutesOle Yang MD Work Phone: [facility] CI FMComment on above:Dementia with behavioral disturbance (HCC) (Primary Dx); Pulmonary emphysema, unspecified emphysema type (HCC); Hypoxia; Chronic combined systolic (congestive) and diastolic (congestive) heart failure (HCC); Chronic kidney disease, stage 3b (CMS-HCC); Coronary artery 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 angina pectorisStart: 08-15-2024 End: 18-01-4577tmxqazodvtJDIYXV B BERRYNot AvailableStart: 08-15-2024 End: 42-39-8063Tquudwlarissa Yang MD Work Phone: NOM[facility] CI FMStart: 08-15-2024 End: 28-74-5467Oybiwylarissa Yang MD Work Phone: N[facility] CI FMStart: 08-11-2024 End: 80-55-9046kzguxqtwbfRSLNR [facility] Systemtart: 00-98-1814zrkjzreiitNEIFMartin Memorial Hospitaltart: 07-22-2024 End: 40-08-9343Awhuqfiar Result EncounterGeneric External Data ProviderNOMS External Department UnsolicitedStart: 07-22-2024 End: 00-36-6489Mqmguayrd Result EncounterGeneric External Data ProviderNOMS External Department UnsolicitedStart: 07-22-2024 End: 32-75-3706dvwxdxouczFcrrn T [facility]gerK[facility] Work Phone: Start: 07-22-2024 End: 45-13-6814Cpbelosy ReferredRichbunny Garciat Work Phone: [facility] Path Spec [facility] HospStart: 07-19-2024 End: 33-17-6417hewvlcfkffEOYMMartin Memorial Hospitaltart: 07-07-2024 End: 64-85-3788xvkkiusndtLRKQM M HEMMERNot AvailableStart: 71-37-7671vvtdgvesqv [facility]: 45-31-1713Cnqeqhygi for preprocedural cardiovascular examinationKEANU [facility] Daytontart: 06-02-2024 End: 02-39-7429Zjhahgq encounter Stalin VEGA Work Phone: noms FMComment on above:Medicare annual wellness visit, subsequent (Primary Dx); ACP [...] of left ventricle; Coronary artery 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 angina pectoris (CMS/HCC); Primary hypertension [...] Primary ovarian failure; Anxiety; Current use of long term acute care registered nurse anticoagulation; Diplopia; Elevated liver enzymes; Frequent falls; History of stroke without residual deficits; Memory changes; 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); COPD exacerbation (CMS/HCC)Start: 06-02-2024 End: 69-93-8857hixdywrdmhUABZOSindhu Cruz AvailableStart: 06-01-2024 End: 49-20-1689Fgkkkslarissa Jo MD Work Phone: noms ENDOCRINOLOGYStart: 06-01-2024 End: 07-92-3763Efyqyqlarissa Jo MD Work Phone: noms ENDOCRINOLOGYStart: 06-01-2024 End: 40-37-8493Vriakf outpatient visit 25 minutesTeri Jo MD Work Phone: NOMS SH ENDOCRINOLOGYComment on above:Hyperthyroidism (CMS/HCC) (Primary Dx); Multinodular goiter (CMS/HCC); Longstanding persistent atrial fibrillation (CMS/HCC)Start: 06-01-2024 End: 63-73-1200dfimxttkxqTTTBL F SABBAGHNot AvailableStart: 23-26-1811dlaoucledrFulton County Health Centertart: 05-23-2024 End: 24-61-5115Quwpagjsm Result EncounterGeneric External Data ProviderNOMS External Department UnsolicitedStart: 05-23-2024 End: 38-04-4233Xbwlqmfxg Result EncounterGeneric External Data ProviderNOMS External Department UnsolicitedStart: 05-12-2024 End: 78-12-8378RtoqenYvopm Dukles LPNNOMS CI FMComment on above:AnxietyStart: 66-62-3792iyowlzelajWPUEMartin Memorial Hospitaltart: 03-30-2024 End: 68-62-1901Mhwjnt Anson Yang MD Work Phone: NOMS CI FMStart: 03-30-2024 End: 98-16-7947Ieyjralarissa Yang MD Work Phone: NOMS CI FMStart: 03-30-2024 End: 89-66-8301Qstope outpatient visit 10 minutesDakylie Yang MD Work Phone: NOMS CI FMComment on above:Pulmonary emphysema, unspecified emphysema type (CMS/HCC) (Primary Dx); Age-related osteoporosis without current pathological fracture (CMS/HCC)Start: 03-30-2024 End: 52-16-3348ndkcpqnvxvMQFYOC B BERRYNot AvailableStart: 34-20-0110gsyqzwnccqFulton County Health Centertart: 02-25-2024 End: 81-01-1349Lqebrt Noble VEGA Work Phone: NOMS CI FMStart: 02-25-2024 End: 98-04-2530Kswshk Noble VEGA Work Phone: NOMS CI FMStart: 02-25-2024 End: 28-52-8246Zemtoo outpatient visit 25 minutesDipti VEGA Work Phone: NOMS CI FMComment on above:Panlobular emphysema (CMS/HCC) (Primary Dx); Benign hypertensive heart disease with heart failure (CMS/HCC); Impaired fasting glucose; Coronary artery 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 angina pectoris (CMS/HCC); Age-related osteoporosis without current pathological fracture (CMS/HCC); Cardiomyopathy, unspecified (CMS/HCC); Longstanding persistent atrial fibrillation (CMS/HCC); Chronic obstructive pulmonary disease, unspecified (CMS/HCC); Chronic kidney disease, stage 3b (HCC) (CMS/HCC); 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); Chronic atrial fibrillation, unspecified (CMS/HCC); Supplemental oxygen dependentStart: 02-25-2024 End: 48-48-4296ejljiuahxbZEZUG M HEMMERNot AvailableStart: 10-24-0493lgvtamctvt [facility] Daytontart: 01-25-2024 End: 55-51-8963qsucsygilbURHVF [facility] Systemtart: 12-02-2023 End: 55-58-6374Klxdov Antonio Jo MD Work Phone: NOMS ENDOCRINOLOGYStart: 12-02-2023 End: 27-49-3447Zjwxqllarissa Jo MD Work Phone: NOMS ENDOCRINOLOGYStart: 12-02-2023 End: 95-59-5789Mjyhmm outpatient visit 25 minutesTeri Jo MD Work Phone: NOMS ENDOCRINOLOGYComment on above:Hyperthyroidism (CMS/HCC) (Primary Dx); Multinodular goiter (CMS/HCC); Longstanding persistent atrial fibrillation (CMS/HCC)Start: 11-26-2023 End: 94-07-1826Qvbkph Noble VEGA Work Phone: noms CI FMStart: 11-26-2023 End: 91-92-3523Whgzvm sukhdevGely Garry Maryann VEGA Work Phone: noMS CI FMStart: 11-26-2023 End: 54-85-2375Umegbckrh Result EncounterGeneric External Data ProviderNOMS External Department UnsolicitedStart: 11-26-2023 End: 23-10-9388Atwhum outpatient visit 25 Chantell Montesinos Maryann VEGA Work Phone: noMS CI FMComment on above:Pulmonary emphysema, unspecified emphysema type (CMS/HCC) (Primary Dx); Need for vaccination; Dyspnea on exertion; Hypoxia; Primary hypertension (CMS/HCC); 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); Acute bronchitis, unspecified organismStart: 10-29-2023 End: 15-20-8937NjbthfDjywq M Hemmer PA Work Phone: noMS CI FMComment on above:AnxietyStart: 08-07-2023 End: 92-02-9742Jahgosomk Result EncounterGeneric External Data ProviderNOMS External Department UnsolicitedStart: 08-07-2023 End: 16-39-2571Xstmkpgrc Result EncounterGeneric External Data ProviderNOMS External Department UnsolicitedStart: 08-06-2023 End: 82-14-4121Llrowniem Result EncounterGeneric External Data ProviderNOMS External Department UnsolicitedStart: 08-06-2023 End: 92-90-8400Gsnsfqwmo Result EncounterGeneric External Data ProviderNOMS External Department UnsolicitedStart: 07-08-2023 End: 63-96-4026Mgjwrxtnz Result EncounterGeneric External Data ProviderNOMS External Department UnsolicitedStart: 07-08-2023 End: 07-57-3518Ppcxzisqw Result EncounterGeneric External Data ProviderNOMS External Department UnsolicitedStart: 04-27-2023 End: 20-18-8559ebabhgykxaBXXIWXWhite Plains Hospital Ambulatory PPGStart: 04-27-2023 End: 28-78-4294Yzeknt outpatient visit 15 minutesRaaaron Nichols OD Work Phone: [facility] AssociatesComment on above:Esotropia of right eye (Primary Dx); Right abducens nerve palsy; Double visionStart: 02-16-2023 End: 92-29-9724Ptelnxjcs Result EncounterDakylie Yang MD Work Phone: noms External Department UnsolicitedStart: 02-16-2023 End: 10-87-0930Crpcxummr Result EncounterDakylie Yang MD Work Phone: noms External Department UnsolicitedStart: 02-11-2023 End: 41-53-8619Cjgkej outpatient visit 15 minutesOle Yang MD Work Phone: NOTV CI FMComment on above:Leg hematoma, right, initial encounter (Primary Dx); Current use of custodial anticoagulation; Localized edemaStart: 05-14-2022 End: 25-12-7383lciezakedkRAZAK SABBAGHFacility:O8Stjlk: 03-19-2022 End: 33-73-0990htjwjfsodsPO DIPTI Montesinos HEMMERFacility:Z7Nbfxd: 12-23-2021 End: 38-02-2932vvisnmjuucYJQROWC TUCKERFacility:V7Pmgdx: 11-25-2021 End: 95-59-8190uivujlegoqNLPIW SABBAGHFacility:Q4Iaazy: 09-04-2021 End: 70-40-2535wbxrjhlecrNNYHNOI TUCKERFacility:V7Sopwh: 77-46-7007Ikzeephlt for other preprocedural examinationMELBluffton Hospitaltart: 07-68-4878Jxgxnelbn for preprocedural laboratory examinationOhioHealth Riverside Methodist Hospitaltart: 08-22-2021 End: 31-91-5595syrpzaoduwNSMK CHACKOFacility:N5Aqdsy: 08-21-2021 End: 63-48-6223lrftbtpeidFOET CHACKOFacility:UTMCStart: 08-20-2021 End: 54-13-4904viybqklzueMYZNRVF TUCKERFacility:Y6Zwvqb: 08-20-2021 End: 99-15-5408Pdtjiswfp for other preprocedural examinationMELINDA CHERY Facility:D2Oxdqh: 07-30-2021 End: 61-12-8970nflfyhipjeVHNWNSI TUCKERFacility:P8Itdsd: 06-28-2021 End: 51-04-4431zzrwniuoreMXOHYKA BOESFacility:U2Nxqoh: 98-13-6545Pflylpkny for other specified special examinationsMELINDA [facility]ENTERhe [facility] HospitalStart: 06-18-2021 End: 99-88-0147kxmnazjpswFMONKJD TUCKERFacility:Y2Zjleb: 06-18-2021 End: 84-86-3208Xwqknhwdn for other specified special examinationsMELISSA DESEAN Facility:D1Olclr: 06-17-2021 End: 94-86-2086ehaugapajkJA MAYRA CASSIDYECKFacility:H9Njkkm: 06-12-2021 End: 33-36-6156szbrztixpuXQBTMBW TUCKERFacility:U3Gtuxg: 06-04-2021 End: 85-71-9870esliimdfcaQCEEQDH D KATKOFacility:S9Vigml: 12-28-2020 End: 84-81-9941ipdxjuaynzZJAR CHACKOFacility:UTMCStart: 11-19-2020 End: 98-78-8042fytjtcnwktTVUR CHACKOFacility:UTMCStart: 99-88-6391Dmmcihsnkf and management of inpatientRichard Curry Work Phone: [facility] Work Phone: Procedures DateProcedureProcedure DetailPerforming ClinicianStart: 50-76-4735YK of head without contrastDaniel Yang II Work Phone: Start: 46-40-8623WIK CBC WITH AUTO DIFFKim C Bautista DIRECTOR OF RESERVATIONS Work Phone: Start: 44-84-2872Aujfh cultureDaniel Yang II Work Phone: Start: 43-78-3860PGC URINALYSISDakylie Yang MD Work Phone: Start: 85-31-1575Qkswlhn bacterial quanttative colony count urineDakylie Yang MD Work Phone: Start: 58-29-4659XDJ LIPID PROFILE (FASTING)Generic External Data ProviderStart: 29-24-9149LJU ALTGeneric External Data Provider Start: 53-33-4153GSD ASTGeneric External Data ProviderStart: 09-38-1180Qtatj cultureRichbunny Zapien Work Phone: Start: 73-34-9846WBAWA CULTURE - FRMCGeneric External Data ProviderStart: 03-72-8998TCU T3 FREEGeneric External Data ProviderStart: 59-80-9675WQA THYROID STIM HORMONEGeneric External Data ProviderStart: 95-31-3062OQC THYROXINE (T4) FREEGeneric External Data ProviderStart: 11-26-2023 ALL THYROXINE (T4) FREEGeneric External Data ProviderStart: 73-12-9313OB ECHO DOPPLER COMPLETEGeneric External Data ProviderStart: 58-58-8407UI MAUREEN PERF SPECT REST STRGeneric External Data ProviderStart: 50-26-8405DU CHEST 2VGeneric External Data ProviderStart: 30-32-3379Azguxo-up visitFollow-upRACHEL S OBROCK Start: 62-75-2210Xaz-scan xtr veins unilateral/limited studyDakylie Yang MD Work Phone: Plan of Treatment DateCare ActivityDetailAuthorStart: 05-31-2025 End: 98-28-5740Debsgow encounter skaycdwrw26/15/2026 10:30 AM EDT Office Visit [facility] [address] [place] [phone] Teri Jo MD [address] [place] [address] NOMEliana Ruiz EndocrinologyStart: 03-22-2025 End: 72-66-8765Bwjvtbh encounter /04/2026 10:00 AM EST Office Visit NOMS [place] [facility] [address] [facility] [address] [place] [address] Ole Yang MD [address] [facility] [address] [place] [address] NOMS [place] [facility] MedinceStart: 12-29-2024 End: 63-86-2931Sqrmejl encounter rngkavoiv47/13/2025 10:00 AM EST Procedure Visit NOMS CI PODIATRY [address] [facility] [address] [place] [address] Kenneth Skinner, DPGarry [address] [address] NOMS CI PODIATRYStart: 12-15-2024 End: 83-36-6562Rpshqqg encounter rqhqywqed20/30/2025 9:30 AM EDT Office Visit NOMS [place] Hallnce [address] [facility] [address] [place] [address] Ole Yang MD [address] [facility] [address] [place] [address] NOMS Maosn Sal[place] MedinceStart: 12-14-2024 End: 16-48-9685Cufwhrr encounter procedureNOMS [place] MedinceComment on above:ArrivedStart: 11-30-2024 End: 02-50-4038Fvmjtddgils [Units/volume] in Serum or PlasmaTSH Lab Routine Hyperthyroidism Expected: 11/30/2024 (Approximate), Expires: 11/30/2025NOMS HealthcareComment on above:Expected: 11/30/2024 (Approximate), Expires: 11/30/2025Start: 11-30-2024 End: 97-19-5671Nbecnbump (T4) free [Mass/volume] in Serum or PlasmaT4, free Lab Routine Hyperthyroidism Expected: 11/30/2024 (Approximate), Expires: 11/30/2025 NOMS HealthcareComment on above:Expected: 11/30/2024 (Approximate), Expires: 11/30/2025Start: 11-30-2024 End: 42-23-5044Vrspwuuxewmkajqc (T3) Free [Mass/volume] in Serum or PlasmaT3, free Lab Routine Hyperthyroidism Expected: 11/30/2024 (Approximate), Expires: 11/30/2025[facility] Work Phone: Comment on above:Expected: 11/30/2024 (Approximate), Expires: 11/30/2025Start: 11-30-2024 End: 60-94-7927Qcpercu encounter procedureNOMS SH ENDOCRINOLOGYComment on above: ArrivedStart: 11-28-2024 End: 69-82-7948Vzmxkkq encounter procedureNOMS [place] Salazar MedinceComment on above:ArrivedStart: 11-22-2024 End: 05-62-5080Wuneb metabolic 1998 panel - Serum or PlasmaBasic metabolic panel Lab Routine Hyperkalemia Chronic kidney disease, stage 3b ([facility]-HCC) Expected: 11/22/2024 (Approximate), Expires: 11/08/2025[facility] Work Phone: Comment on above:Expected: 11/22/2024 (Approximate), Expires: 11/08/2025Start: 11-14-2024 End: 38-96-2701Jpjystp encounter eommwjzab10/29/2025 3:45 PM EDT Office Visit NOMS [place] [facility] [address] [facility] [address] [place] [phone] Ole Yang MD [address] [facility] [address] [place] [address] NOMS [place] Sal[place] MedinceStart: 11-08-2024 End: 92-62-4897Bxlngdf encounter fbtmtylwx06/23/2025 3:00 PM EDT Office Visit NOM[facility] [place] [facility] [address] [facility] [address] [place] [phone] Dipti Wolf PA [address] [place] [address] [place] [address] ArrivedNOMS [place] Sal[place] MedinceComment on above:ArrivedStart: 85-96-7140VfqmhrmzrCincinnati Shriners Hospitaltart: 82-10-7082Rjemrluu to neurologistCincinnati Shriners Hospitaltart: 52-38-6663Nisxckgf to psychiatristCincinnati Shriners Hospitaltart: 31-06-9360GgzhchjdpCincinnati Shriners Hospitaltart: 13-38-3944Kfgtcuvh therapy procedureCincinnati Shriners Hospitaltart: 06-73-8969Emwalggd to occupational therapistCincinnati Shriners Hospitaltart: 10-31-2024 [facility] Hospitaltart: 26-77-7940Wzyhxbtk admissionCincinnati Shriners Hospitaltart: 10-31-2024 End: 85-27-2191Dyttokj encounter ltqjaojum40/15/2025 1:30 PM EDT Office Visit NOMS [place] [facility] [address] [facility] [address] [place] [address] Ole Yang MD [address] [facility] [address] [place] [address] ArrivedNOMS [place] MedinceComment on above:ArrivedStart: 10-26-2024 End: 32-34-8971Kxknaip encounter ogfuoxpki10/10/2025 9:30 AM EDT Office Visit NOM[facility] [place] [facility] [address] [facility] [address] [place] [address] Ole Yang MD [address] [facility] [address] [place] [address] NOMS [place] Sal[place] MedinceStart: 10-17-2024 COVID-19 Vaccine ( season)COVID-19 Vaccine ( season)NOMS HealthcareStart: 80-32-6976Ugrmdhwof vaccinationInfluenza Vaccine (#1)NOMS HealthcareStart: 10-13-2024 End: 74-39-8175Ecnngvb encounter procedureNOMS CI PODIATRYStart: 09-27-2024 Bacteria identified in Urine by CultureUrine [facility] Systemtart: 81-91-3802Rrxuw [facility] Centertart: 09-14-2024 End: 76-11-3828Hubktss encounter procedureNOMS CI FMComment on above:Arrived Start: 08-31-2024 End: 51-71-4568Hxpqrla encounter tyewymmxs17/16/2025 9:30 AM EDT Office Visit NOMS CI FM [address] [place] [address] [place] [address] Dipti Wolf PA [address] [facility] [address] [place] [address] NOMS CI FMStart: 08-15-2024 End: 72-81-9942Pfkitfp encounter xbzinwrpb25/30/2025 2:30 PM EDT Office Visit NOMS CI FM [address] [place] [address] [place] [address] Ole Yang MD [address] [place] [address] [place] [address] ArrivedNOMS CI FMComment on above:ArrivedStart: 08-11-2024 End: 29-18-6532Laeoofn encounter /26/2025 10:00 AM EDT Office Visit NOMS CI FM [address] [place] [address] [place] [address] Dipti Wolf PA [address] [place] [address] [place] [address] NOMS CI FMStart: 27-20-3366Ljuuqdyn identified in Urine by CultureUrine [facility] Systemtart: 90-26-3054Utaty [facility] Centertart: 06-02-2024 End: 15-42-2422NNV Skeletal system Views for bone densityDEXA bone density Imaging Routine Estrogen deficiency Expected: 06/02/2024, Expires: 06/02/2025 [facility] Work Phone: Comment on above:Expected: 06/02/2024, Expires: 06/02/2025Start: 06-02-2024 End: 51-51-2946Vycruds encounter iiyccygvm75/17/2025 9:30 AM EDT Office Visit NOMS CI FM [address] [place] [address] [place] [address] Dipti Wolf PA [address] [place] [address] [place] [address] NOMS CI FMStart: 06-01-2024 End: 18-16-4583Qiljdvbcpxp [Units/volume] in Serum or PlasmaTSH Lab Routine Hyperthyroidism ([facility]/HCC) Expected: 06/01/2024 (Approximate), Expires: 06/01/2025[facility] HealthcareComment on above:Expected: 06/01/2024 (Approximate), Expires: 06/01/2025Start: 06-01-2024 End: 19-72-1316Lscnbxtxe (T4) free [Mass/volume] in Serum or PlasmaT4, free Lab Routine Hyperthyroidism ([facility]/HCC) Expected: 06/01/2024 (Approximate), Expires: 06/01/2025[facility] HealthcareComment on above:Expected: 06/01/2024 (Approximate), Expires: 06/01/2025Start: 06-01-2024 End: 67-87-5202Ndqhyimynvslqusg (T3) Free [Mass/volume] in Serum or PlasmaT3, free Lab Routine Hyperthyroidism ([facility]/HCC) Expected: 06/01/2024 (Approximate), Expires: 06/01/2025[facility] Work Phone: Comment on above:Expected: 06/01/2024 (Approximate), Expires: 06/01/2025Start: 06-01-2024 End: 57-54-3560Hxruwga encounter procedureNOJOHN J. PERSHING [facility] ENDOCRINOLOGYComment on above: ArrivedStart: 05-30-2024 End: 41-78-8971Zovgmzr encounter xcknvippv00/14/2025 9:30 AM EDT Office Visit NOMS CI FM [address] [place] [address] [place] [address] Dipti Wolf PA [address] [place] [address] [place] [address] NOMS CI FMStart: 04-10-2025Medicare Annual Wellness (AWV)Medicare Annual Wellness (AWV)NOMS HealthcareStart: 71-68-7281Wabsphl ScreeningTobao ScreeningOhio State East Hospitalca [facility] SystemStart: 03-30-2024 End: 48-65-1621Ifxpctu encounter seclndwfw20/12/2025 10:15 AM EST Office Visit NOMS CI FM [address] [place] [address] [place] [address] Ole Yang MD [address] [place] [address] [place] [address] ArrivedNOMS CI FMComment on above:ArrivedStart: 02-25-2024 End: 767304-ydlpthegxntcif D3 [Mass/volume] in Serum or PlasmaVitamin D 25 hydroxy Total Lab Routine Coronary artery 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 angina pectoris (CMS/HCC) Age-related osteoporosis without current pathologicalfracture (CMS/HCC) Expected: 02/25/2024 (Approximate), Expires: 02/24/2025NOMS HealthcareComment on above:Expected: 02/25/2024 (Approximate), Expires: 02/24/2025Start: 02-25-2024 End: 20-45-4223Yxnqw metabolic 1998 panel - Serum or PlasmaBasic metabolic panel Lab Routine Benign hypertensive heart disease with heart failure (CMS/HCC) Imp aired fasting glucose Expected: 02/25/2024 (Approximate), Expires: 02/24/2025 NOMS HealthcareComment on above:Expected: 02/25/2024 (Approximate), Expires: 02/24/2025Start: 02-25-2024 End: 84-00-1768GQQ W Auto Differential panel - BloodCBC and differential Lab Routine 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 (CMS/HCC) Expected: 02/25/2024 (Approximate), Expires: 02/24/2025[facility] Work Phone: Comment on above:Expected: 02/25/2024 (Approximate), Expires: 02/24/2025Start: 02-25-2024 End: 89-15-1135Fcxrchbqip A1c/Hemoglobin.total in BloodHemoglobin A1c Lab Routine Impaired fasting glucose Expected: 02/25/2024 (Approximate), Expires: 02/24/2025[facility] HealthcareComment on above:Expected: 02/25/2024 (Approximate), Expires: 02/24/2025Start: 02-25-2024 End: 82-13-6904Qbklg 1996 panel - Serum or PlasmaLipid panel Lab Routine Coronary artery 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 angina pectoris (CMS/HCC) Expected: 02/25/2024 (Approximate), Expires: 02/24/2025[facility] HealthcareComment on above:Expected: 02/25/2024 (Approximate), Expires: 02/24/2025Start: 02-25-2024 End: 15-98-1505Skfvbzs encounter procedureNOMS CI FMComment on above:Arrived Start: 89-76-1316Smitf BMI ScreeningAdult BMI ScreeningCommunity Memorial Hospital System Start: 12-02-2023 End: 07-92-3934Cxsqngm function 2000 panel - Serum or PlasmaHepatic function panel Lab Routine Hyperthyroidism (CMS/HCC) Expected: 12/02/2023 (Approximate), Expires: 12/01/2024[facility] HealthcareComment on above:Expected: 12/02/2023 (Approximate), Expires: 12/01/2024Start: 12-02-2023 End: 70-08-8357Ninihlqpagw [Units/volume] in Serum or PlasmaTSH Lab Routine Hyperthyroidism (CMS/HCC) Expected: 12/02/2023 (Approximate), Expires: 12/01/2024[facility] HealthcareComment on above:Expected: 12/02/2023 (Approximate), Expires: 12/01/2024Start: 12-02-2023 End: 21-10-3672Emcqiguwb (T4) free [Mass/volume] in Serum or PlasmaT4, free Lab Routine Hyperthyroidism (CMS/HCC) Expected: 12/02/2023 (Approximate), Expires: 12/01/2024[facility] HealthcareComment on above:Expected: 12/02/2023 (Approximate), Expires: 12/01/2024Start: 12-02-2023 End: 21-70-5269Qmxdpfqqdmaqxipw (T3) Free [Mass/volume] in Serum or PlasmaT3, free Lab Routine Hyperthyroidism (CMS/HCC) Expected: 12/02/2023 (Approximate), Expires: 12/01/2024[facility] Work Phone: Comment on above:Expected: 12/02/2023 (Approximate), Expires: 12/01/2024Start: 12-02-2023 End: 24-99-1173Xxyncmm encounter procedureNOMS SH ENDOCRINOLOGYComment on above: ArrivedStart: 11-26-2023 End: 29-29-4723Llykqdm encounter procedureNOMS CI FMComment on above:Arrived Start: 80-45-7222Eugzrvbpc vaccinationInfluenza Vaccine (#1)[facility] Start: 46-65-0343Jwke Risk ScreeningFall Risk ScreeningSumma Health [facility]ron Campus Start: 06-52-5244Xdfkeiixj B Vaccines (1 of 3 - Risk 3-dose series)Hepatitis B Vaccines (1 of 3 - Risk 3-dose series)[facility] HospitalStart: 95-84-4281PQzU,Tdap and Td Vaccines (1 - Tdap)DTaP,Tdap and Td Vaccines (1 - Tdap)[facility] SystemStart: 24-54-6340Qxpmognff A Vaccines (1 of 2 - Risk 2-dose series) Hepatitis A Vaccines (1 of 2 - Risk 2-dose series)[facility] HealthcareStart: 41-02-1514Uxghs BMI Follow Up PlanAdult BMI Follow Up PlanCommunity Memorial Hospital SystemStart: 20-79-1025Fxryutsbkh ScreeningDepression ScreeningProOur Lady Of Mercy Hospital SystemStart: 85-84-0574APjZ/Tdap/Td Vaccines (1 - Tdap)DTaP/Tdap/Td Vaccines (1 - Tdap)[facility] HealthcareStart: 07-01-1943Medicare Annual Wellness VisitMedicare Annual Wellness VisitCommunity Memorial Hospital SystemAnion gap measurementMercy Health St. Joseph Warren HospitalBacteria identified in Urine by CultureUrine culture Microbiology Routine 09/26/2024 1:30 PM [facility] Work Phone: Glomerular filtration rate [Volume Rate/Area] in Serum, Plasma or Blood by CreatinineMercy Health St. Joseph Warren HospitalGlucose measurement estimated from glycated hemoglobinMercy Health St. Joseph Warren Hospital Hemoglobin A1c/Hemoglobin.total in BloodMercy Health St. Joseph Warren HospitalPatient EducationHope Pamphlet Know your MedsK[facility] Work Phone: Patient referralKettering Health Miamisburg Ctr Work Phone: [facility] Immunizations Immunization DateImmunizationNotesCare CjxgzgcuWsqssabh60-72-9350FAAU-KTC-5 (COVID-19) vaccine, mRNA, spike protein, LNP, PF, robert-sucrose, 30 mcg/0.3 mL Dipti Hemmer PA Work Phone: [facility] HospitalZqnmonawgu15-93-9622Xizzbntjj, High-dose Seasonal, Quadrivalent, Preservative FreeSamen Hemmer PA Work Phone: [facility] HospitalFidfzlofsh56-33-4716igpamcajl virus vaccine, unspecified formulationGeneric ProviderPershing Memorial HospitalQeszxnwisa44-26-5788IBBX-JFJ-2 (COVID-19) vaccine, mRNA, spike protein, LNP, PF, robert-sucrose, 30 mcg/0.3 mL Dipti Hemmer PA Work Phone: [facility] HospitalWdzzqaycri38-65-3838dqwrps vaccine recombinant Dipti Hemmer PA Work Phone: [facility] HospitalSgwcpwyada40-09-8162ZFGHZMJ - Respiratory syncytial virus (RSV), vaccine, bivalent, protein subunit RSV prefusion F, dil uent reconstituted, 0.5 mL, PFKaren Hemmer PA Work Phone: [facility] HospitalBrmgfbccef02-48-3538Ktmqagdgg, Seasonal, Quadrivalent, AdjuvantedKaren Hemmer PA Work Phone: [facility] HospitalDxploxfmya14-36-8204nnzhudqmy virus vaccine, unspecified formulationKaren Hemmer PA Work Phone: [facility] HospitalDzwphfqbaz09-95-9280skefcn vaccine recombinant Dipti Hemmer PA Work Phone: [facility] HospitalRymrbcvdyq84-31-1761mdleokuei, high dose seasonal, preservative-freeKaren Hemmer PA Work Phone: [facility] HospitalWgutqnmrok74-18-7080Yoovwtt SARS-CoV-2 50mcg/0.5mL BoosterKaren Hemmer PA Work Phone: [facility] HospitalPyyyfeqimp87-32-8179qnncqfjxo, high dose seasonal, preservative-freeKaren Hemmer PA Work Phone: [phone] Memorial HospitalJxtgapgeqa29-78-1840Aerlchgp trivalent influenza vaccine, adjuvanted, preservative freeKaren Hemmer PA Work Phone: [facility] HospitalSijcntcggs49-89-7315loscmlwzregw polysaccharide vaccine, 23 valentKaren Hemmer PA Work Phone: [phone] Memorial HospitalNwjpufpdet31-66-3245Jhtymzht trivalent influenza vaccine, adjuvanted, preservative freeKaren Hemmer PA Work Phone: [phone] Memorial HospitalYfpyhlxhkl31-36-8288qxoznxurbfat conjugate vaccine, 13 valentKaren Hemmer PA Work Phone: [phone] Memorial HospitalOkjkutupme97-54-3887Buybpoill, High-dose Seasonal, Quadrivalent, Preservative FreeKaren Hemmer PA Work Phone: [facility] HospitalWphwpbulvw50-77-8689Dgknmlogp, High-dose Seasonal, Quadrivalent, Preservative FreeKaren Hemmer PA Work Phone: [phone] Memorial HospitalBdqpwerksa28-41-2536cqdummxoyooz polysaccharide vaccine, 23 valentKaren Hemmer PA Work Phone: [facility] Payers DatePayer CategoryPayerPolicy [id number] Health InsuranceCSI MEDICARE SUPPLEMENT BRITTANY ROSARIO [id number] COMMERCIAL COMMERCIAL - GENERIC PLAN [id number] 2022-[facility] [phone] [address] [address] BRITTANY NAVARRETE [id number] [id number] 1960Medicare [id number] 2..1.145007.3.57[id number] 2..1.978446.3.57[id number] 2..1.336011.3.57[id number] 2..1.184049.3.57[id number] 2.0.1.433444.3.57[id number] 2.0.1.416828.3.579.[id number] 2.0.1.742477.3.57[id number] 2.0.1.286377.3.579.2.12302-00-8895Cxlccya7982207 2.16.840.1.940128.3.579.2.62209-35-4746Oopmder3678602 2.16.840.1.133946.3.579.[id number] 2.16.840.1.513494.3.579.2.54175-63-8669Soetvmg7726427 2.16.840.1.229669.3.579.2.85574-26-5518Pnwytmy7558999 2.16.840.1.471142.3.57[id number] 2.16.840.1.449846.3.579.[id number] 2.16.840.1.579348.3.579.2.55656-39-7709Kpislew1995851 2.16.840.1.345112.3.579.2.20237-65-8837Oxpeslh6551257 2.16.840.1.338267.3.579.2.[id number] 2.16.840.1.655668.3.579.2.72934-01-5758Zxccgyz21321073 2.16.840.1.676985.3.579.[id number] 2.16.840.1.897395.3.579.2.794139-31-6614Ofkyfou87180801 2.16.840.1.281491.3.57[id number] 2.16.840.1.649962.3.579.2.819949-71-2163Vyrajfl18080764 2.16.840.1.105134.3.579.2.111695-87-9362Trydbfb71474607 2.16.840.1.320386.3.579.2.345743-83-8469Nhczcmn68902987 2.16.840.1.748224.3.579.2.036023-94-3939Yhqrcky75092381 2.16.840.1.333888.3.579.2.142843-73-6977Gsasavf43872518 2.16.840.1.875958.3.579.2.809866-53-6367Eeyargt30787373 2.16.840.1.221497.3.579.2.434894-19-6519Gewohuu1425894 2.16.840.1.539333.3.579.2.686920-93-3594Vzrwalg2250985 2.16.840.1.385500.3.579.2.184446-30-3897Fvvjxmq0986237 2.16.840.1.894356.3.579.2.402770-50-4929Gqojpjv1946321 2.16.840.1.757901.3.579.2.[id number] 2.16.840.1.294969.3.57[id number] 2.16.840.1.811441.3.579.2.773Icstlwk80892315 2.16840.1.862353.3.579.2.531 [id number] 2.16.840.1.448511.3.579.2.531 Social History DateTypeDetailFacilityStart: 07-28-2022 End: 97-38-3267Kdvqbyz smoking status NHISNever smoked tobaccoNOMS Healthcare Start: 07-28-2022 End: 60-28-2007Qpiozna use and exposureSmokeless tobacco non-userCommunity Memorial Hospital SystemStart: 02-11-2023 End: 72-07-3043Ckvstyell beverage intakeLifetime non-drinker (finding)NOMS HealthcareStart: 10-29-2023 End: 32-09-5084Cmswqog of Social functionNOMS Healthcare Work Phone: Start: 10-29-2023 End: 46-71-2663I0455 Health LiteracyNOMS Healthcare Work Phone: Start: 49-55-4868Ihv often do you need to have someone help you when you read instructions, pamphlets, or other written material from your doctor or pharmacy [SILS]OftenNOMS Healthcare Work Phone: Within the last year, have you been afraid of your partner or ex-partner?NoNOMS HealthcareAre you now , , , , never or living with a partner?MarriedNOMS HealthcareHow often to you have a drink containing alcohol?NeverNOMS HealthcareDo you feel stress - tense, restless, nervous, or anxious, or unable to sleep at night because yourmind is troubled all the time - these days [OSQ]To some extentNOMS Healthcare(I/We) worried whether (my/our) food would run out before (I/we) got money to buy more.Never trueNOMS HealthcareStart: 70-36-0602Unt assigned at birthNot on [facility] SystemHow often do you need to have someone help you when you read instructions, pamphlets, or other written material from your doctor or pharmacy [SILS]OftenNOMS Healthcare Work Phone: How often do you need to have someone help you when you read instructions, pamphlets, or other written material from your doctor or pharmacy [SILS]SometimesNOMS HealthcareHow hard is it for you to pay for the very basics like food, housing, medical care, and heatingNot very hardNOMS HealthcareDo you feel stress - tense, restless, nervous, or anxious, or unable to sleep at night because yourmind is troubled all the time - these days [OSQ] Rather muchNOMS HealthcareTobacco smoking status NHISUnknown if ever smoked [facility] Work Phone: Start: 80-43-0952AydCidtiu (finding)[facility] Hospitaltart: 58-56-1216Yqx Assigned At BirthFeFisher-Titus Medical Centertart: 40-62-8360KVGS Follow upSDOH Follow upUpper Valley Medical Center Work Phone: Functional Status LtviMsmpcgblapCtbshfDlxijvdd52-10-6804Iideblh Health Questionnaire 2 item (PHQ- 2) [Reported][facility] HospitalWnomywvflg70-59-6663Uzzlnsi Health Questionnaire 2 item (PHQ- 2) [Reported][facility] HospitalMilthdynir23-90-8906ANB-2 quick depression assessment panel [Reported.PHQ][facility] HospitalOplvqzqenq30-48-3647Gvjdexi Health Questionnaire 2 item (PHQ- 2) [Reported][facility] HospitalQbplvowfwe75-37-4895Spizfhj Health Questionnaire 2 item (PHQ- 2) [Reported][facility] HospitalMftwerkkaa58-82-3588VGH-3 quick depression assessment panel [Reported.PHQ][facility] HospitalRmuzsdixhk57-93-4724Pjtnfru Health Questionnaire 2 item (PHQ- 2) [Reported][facility] HospitalDjgceqkmyh76-32-7138Ldmpq score [AUDIT-C]0 06/01/2024 10:00 AM EDT [facility], GenericPershing Memorial HospitalKkypccgnsg52-76-0883Qll often to you have a drink containing alcohol?Never 06/01/2024 10:00 AM EDT Mychart, Generic NeverNOMS Frniroczyt37-36-9991Pzmfsvfqwp statusPatient does not drink 06/01/2024 10:00 AM EDT [facility], Generic Patient does not drinkPershing Memorial HospitalMngtszpdip53-54-5904Vly often do you have 6 or more drinks on 1 occasion?Never 06/01/2024 10:00 AM EDT Mychart, Generic NeverNOCrittenton Behavioral HealthNxovnnifmn12-05-2023Phnvmqh Health Questionnaire 2 item (PHQ- 2) [Reported][facility] Clinical Notes 06-17-2021 to 12-14-2024 Note Date & GrzxDdrrGunuvshy20-39-1033 History of Present illness Narrative* Ole Yang MD - 12/14/2024 9:00 AM [...] right dr inman 2011 Visit Vitals BP 128/76 Pulse 70 Ht 5' 7 Wt 178 lb SpO2 98% BMI 27.88 kg/m Smoking Status Never BSA 1.95 m Review of Systems Objective Physical Exam [...] 0.55 - 1.02 mg/dL Final [facility] EGFR-AF YEMENI 10/19/2024 45 (L) >=60 mL/min/1.73m 2 Final [facility] EGFR-NON AF YEMENI 10/19/2024 37 (L) >=60 mL/min/1.73m 2 Final [...] No evidence of pulmonary edema. Medications unchanged. Coronary artery 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 angina pectoris - Seeing Cardiology, currently asymptomatic Hyperthyroidism Pure hypercholesterolemia Chronic kidney disease, stage 3b ([facility]-H[facility]) Other orders - Follow Up In Family Medicine; Future Follow up with Dr. Ole Yang in 3 months (on 03/14/2025). documented in this encounterPershing Memorial HospitalEpwncoujku01-06-6465 NoteSUBJECTIVE Reason for Visit: Lluvia Ferraro is a 84 y.o. year old female patient being seen for hospital FU, BP issues. HPI: Lluvia Ferraro is a 84 y.o. [...] now. Renal function will be rechecked in approximately 10 days to monitor response and tolerance. [...] (Lipitor) 80 mg tablet 1 tablet, Nightly rekidiebnp-javdsebx-iivouskvig (Breztri Aerosphere) 160-9-4.8 mcg/actuation HFA aerosol inhaler Inhale. bumetanide (Bumex) 1 mg tablet As needed cholecalciferol (Vitamin D-3) 50 MCG (2000 UT) tablet Take 1 tablet every day by oral route. lisinopril 2.5 mg, oral, Daily LORazepam (Ativan) 0.5 mg tablet TAKE ONE TABLET BY MOUTH EVERY 6 HOURS NEEDED FOR ANX (more content not included)...[facility] 11-30-2024 History of Present illness Narrative* Teri Jo MD - 11/30/2024 10:00 AM EDT Lluvia Ferraro is a 84 y.o. female No ref. provider found presents with chief complaint of Thyroid Problem and Follow-up (lab) HPI: Interim history 11/2024 Followup visit on 11/30/2024 for hyperthyroidism. She is on 10 mg methimazole half-tablet 4 days a week. , lab on 11/2024 TSH 2.96, FT4 1.3 (0.8-1.8), FT3 2.8( 2.3-4.2). Interim history 05/2024 Followup visit on 06/01/2024 [...] 05/2020 TSH 2.6, free T4 1.04 mid-normal (0.78- 2.19), free T3 mildly low at 2.49(2.77-5.27). Interim [...] for lab done in in [facility]: TSH still suppressed 0.07, free T4 [...] 2.22 (0.78-2.19), TSH 0.02, free T3 5.24 (2.77- 5.77). TPO 8, TG antibody less than 10, TRAb 0.71 and she is currently on methimazole 10 mg once a day and metoprolol 50 once a day. HPI: 01/03 New patient sent from Dr. Ole Yang for hyperthyroidism, TSH 0.03, free T4 2.52 (0.8-1.8), and she has afib, on anticoagulation, and digoxin, and she feel palpitations sometimes, and diarrhea, andnever have any thyroid problem before, and she say last year was within normal limits. Denies family history of thyroid disease. SUBJECTIVE: MEDICATIONS: Current Outpatient Medications Medication Instructions amLODIPine (NORVASC) 2.5 mg, Oral, Daily apixaban (ELIQUIS) 5 mg, Oral, 2 times daily aspirin 81 MG EC tablet Every 24 hours atorvastatin (LIPITOR) 80 mg, Oral, Daily calcium carbonate (CALCIUM 600) 600 mg, Oral, 2 times daily with meals cefdinir (OMNICEF) 300 mg, Oral, 2 times daily melatonin 5 mg, Daily methIMAzole (TAPAZOLE) 5 mg, Daily methIMAzole (TAPAZOLE) 5 mg, Oral, Daily metoprolol succinate XL (TOPROL-XL) 50 mg, Oral, Daily Multiple Vitamins-Minerals (Multi For Her 50+) tablet Every 24 hours PARoxetine (PAXIL) 20 mg, Oral, Every morning Vitamin D3 1,000 Units, Oral, 2 times daily ALLERGIES: Allergies Allergen Reactions Lorazepam Hallucinations Spironolactone Other Hyperkalemia Past Medical History: Diagnosis Date A-fib (HCC) Acute hyperkalemia 11/08/2024 DONNA (acute kidney injury) 11/08/2024 Arthritis CAD (coronary artery disease) Cerebrovascular accident (HCC) Disease of thyroid gland H/O bladder infections Hearing loss Heart disease History of atrial fibrillation History of being hospitalized 08/28/2023 COPD Exacerbation History of being hospitalized 10/31/2024 Suicidal and Homicidal Ideations History of echocardiogram 2018 EF 60-65% History [...] SYSTEM REVIEWED AND NEGATIVE OBJECTIVE: Visit Vitals Pulse 69 Resp 16 Ht 5' 4 Wt 180 lb SpO2 95% BMI 30.90 kg/m Smoking Status Never BSA 1.92 m Physical Exam Constitutional: Appearance: Normal appearance. [...] and all orders for this visit: Hyperthyroidism - methIMAzole (Tapazole) 5 MG tablet; Take 1 tablet (5 mg) by mouth Daily - T3, free; Future - T4, free; Future - TSH; Future Will Switch her to methimazole 5 mg 4 days a week, we will check lab before next visit in 6 months and adjust. Multinodular goiter Longstanding persistent atrial fibrillation (HCC) Follow up in about 6 months (around 05/31/2025). documented in this encounterPershing Memorial HospitalIwmgpqxici75-20-2053 History of Present illness Narrative* Ole Yang MD - 11/28/2024 2:30 PM EDT Images from the original note were not included. Subjective Patient ID: Lluvia Ferraro is a 84 y.o. female who presents for Hypertension and Wheezing. Hypertension Patient is here for follow-up of elevated blood pressure. Blood pressure is not well controlled at home. Cardiac symptoms: none. Patient denies chest pain, claudication, irregular heart beat, near-syncope, orthopnea, palpitations, paroxysmal nocturnal dyspnea, syncope, and tachypnea. Cardiovascularrisk factors: advanced age (older than 55 for men, 65 for women), hypertension, and sedentary lifestyle. Pt noticed wheezing 2 days ago Denies cough,fever Hypertension Medications Ordered Prior to Encounter[1] I have reviewed and reconciled the history and medication list with the patient today. Allergies[2] Social History[3] Family History[4] Medical History[5] Surgical History[6] Visit Vitals BP (!) 162/92 Pulse 71 Temp 100.8 F Ht 5' 7 Wt 183 lb SpO2 93% BMI 28.66 kg/m Smoking Status Never BSA 1.98 m Review of Systems Objective Physical Exam Constitutional: General: She is not in acute distress. Appearance: Normal appearance. She is well-developed. HENT: Head: Normocephalic and atraumatic. Eyes: General: No scleral icterus. Conjunctiva/sclera: Conjunctivae normal. Cardiovascular: Rate and Rhythm: Normal rate and regular rhythm. Heart sounds: Normal heart sounds. No murmur heard. Comments: Occasional ectopic beat Pulmonary: Effort: Pulmonary effort is normal. No [...] Diagnoses and all orders for this visit: 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) - amLODIPine (Norvasc) 2.5 MG tablet; Take 1 tablet (2.5 mg) by mouth Daily Acute bronchitis, unspecified organism - cefdinir (Omnicef) 300 MG capsule; Take 1 capsule (300 mg) by mouth in the morning and 1 capsule (300 mg) before bedtime. Do all this for 7 days. Follow up in about 1 week (around 12/05/2024) for F/U med changes. [1] Current Outpatient Medications on File Prior to [...] tablet Take 5 mg by mouth Daily (Patient taking differently: Take 5 mg by mouth Daily On Sundays, Thursday, , Saturdays) metoprolol succinate XL (Toprol-XL) 50 MG 24 hr tablet Take 1 tablet (50 mg) by mouth Daily 100 tablet 3 Multiple Vitamins-Minerals (Multi For Her 50+) tablet 1 (one) time each day at the same time PARoxetine (Paxil) 20 MG tablet Take 1 tablet (20 mg) by mouth in the morning. 100 tablet 3 No current facility-administered medications on file prior to visit. [2] Allergies Allergen Reactions Lorazepam Hallucinations Spironolactone Other Hyperkalemia [3] Social History Tobacco Use Smoking status: Never Smokeless tobacco: Never Vaping Use Vaping status: Never Used Substance Use Topics Alcohol use: Never Drug use: Never [4] Family History Problem Relation Name Age of Onset Cancer Mother Hypertension Mother Mental illness Mother Cancer Father Hypertension Father [5] Past Medical History: Diagnosis Date A-fib (HCC) [...] ideation 11/08/2024 Toxic multinodular goiter Visual impairment [6] Past Surgical History: Procedure Laterality Date APPENDECTOMY AV NODE ABLATION 2020 BLADDER SURGERY CARDIAC CATHETERIZATION 2021 CARDIAC PACEMAKER PLACEMENT 2020 CARDIAC PACEMAKER REMOVAL 2021 ICD implantation HYSTERECTOMY TENDON REPAIR right thumb dr schultz TOTAL KNEE ARTHROPLASTY 2003 dr zapien left/ right dr inman 2010 documented in this encounterPershing Memorial HospitalQoqvdlnbyn87-01-4619 History of Present illness Narrative* SILVIA Branham - 11/08/2024 3:00 PM EDT Images from the original note were not included. HPI Gait Problem Additional comments: Needs face to face for rollator. Last edited by Aidee Garcia LPN on 11/08/2024 3:00 PM. Subjective Patient ID: Lluvia Ferraro is a 84 y.o. female who presents for [facility] follow up. Flowsheet Row Patient Outreach from 11/04/2024 in [facility] with Edna Alcantara LPN Hospital Information ED, Hospital or Jail Facility Discharge? Hospital Patient has been contacted within two business days of discharge Yes Diagnosis Dementia, suicidal ideation. Discharge Date 11/03/24 Discharged To: Home Setting Discharge Hospital [facility] Engagement Call Start Time 1154 Admission Date 10/31/24 Medications Discharge medications reviewed and reconciled from hospital? Yes Is the patient having any side effects they believe may be caused by any medication additions or changes? No Does the patient have all medications ordered at discharge? Yes Is the patient taking all medications as directed (includes completed medication regime)? Yes Medication Comments Discontinued medications: Lorazepam ( possible cause of behaviors), lisinopril, Spironolactone. Added melatonin Appointments Does the patient have a primary care provider? Yes [11/08] Does the patient have any upcoming specialty appointments? Yes [[facility] 11/30. [facility] 01/17] Self Management Does patient have home health? yes What is the home health agency? [facility] Patient Teaching Does the patient have access to their discharge instructions? Yes What is the patient's perception of their health status since discharge? Improving Is the patient/caregiver able to teach back the hierarchy of who to call/visit for symptoms/problems? PCP, Specialist, Home Health nurse, Urgent Care, ED, 911 Yes Wrap Up Wrap Up Additional Comments Nuerology consult, Psych consult, labs, CT, MRI brain, UA, EEG. Admitted after presenting to ER for suicidal and homicidal thoughts. Evaluated and cleared for discharge with home health. Call End Time 1216 Patient states she has no desire to harm herself or others. States her BP was 148/88 last night. Patient here with her two daughters. Over the past 2 weeks, how often have you been bothered by any of the following problems? Little interest or pleasure in doing things: Not at all (currently on medication) Feeling down, depressed, or hopeless: Not at all (currently on medication) Patient Health Questionnaire-2 Score: 0 Current Outpatient Medications on File Prior to Visit Medication Sig Dispense Refill melatonin 5 MG tablet Take 5 mg [...] mg) by mouth Daily 100 tablet 3 methIMAzole (Tapazole) 5 MG tablet Take 5 mg by mouth Daily (Patient taking differently: Take 5 mg by mouth Daily On Sundays, Thursday, , Saturdays) metoprolol succinate XL (Toprol-XL) 50 MG 24 hr tablet Take 1 tablet (50 mg) by mouth Daily 100 tablet 3 Multiple Vitamins-Minerals (Multi For Her 50+) tablet 1 (one) time each day at the same time. PARoxetine (Paxil) 20 MG tablet Take 1 tablet (20 mg) by mouth in the morning. 100 tablet 3 [DISCONTINUED] Calcium Carb-Cholecalciferol (Calcium + Vitamin D3) 600-5 MG-MCG tablet Take 2 tablets by mouth 1 (one) time each day at the same time (Patient not taking: Reported on 11/04/2024) 60 tablet 2 [DISCONTINUED] cholecalciferol (Vitamin D-3) 50 MCG (1999 UT) capsule Take 2,000 Units by mouth Daily (Patient taking differently: Take 1,000 Units by mouth Daily) [DISCONTINUED] lisinopril 5 MG tablet Take 0.5 tablets (2.5 mg) by mouth in the morning. (Patient not taking: Reported on 11/04/2024) 100 tablet 1 [DISCONTINUED] LORazepam (Ativan) 0.5 MG tablet Take 0.5 tablets (0.25 mg) by mouth at bedtime (Patient not taking: Reported on 11/04/2024) 15 tablet 1 [DISCONTINUED] melatonin 1.5 mg tablet split tablet Daily at bedtime as needed for Insomnia [DISCONTINUED] spironolactone (Aldactone) 25 MG tablet Take 1 tablet (25 mg) by mouth Daily (Patient not taking: Reported on 11/04/2024) 90 tablet 3 No current facility-administered medications [...] Suicidal and Homicidal Ideations History of echocardiogram 2018 EF 60-65% History [...] ARTHROPLASTY 2003 dr zapien left/ right dr felter 2011 Visit Vitals BP 128/82 Pulse 71 Resp 16 Ht 5' 7 Wt 175 lb 3.2 oz SpO2 99% BMI 27.44 kg/m Smoking Status Never BSA 1.94 m Review of Systems Constitutional: Negative for chills, fatigue and fever. Respiratory: Positive for shortness of breath. Negative for cough and wheezing. Cardiovascular: Negative for chest pain, palpitations and leg swelling. Gastrointestinal: Negative for abdominal pain, constipation, diarrhea, nausea and vomiting. Musculoskeletal: Positive for gait problem. Skin: Negative for rash. Objective Physical Exam Constitutional: General: She is not in acute distress. Appearance: Normal appearance. She is well-developed. HENT: Head: Normocephalic and atraumatic. Eyes: General: No scleral icterus. Conjunctiva/sclera: Conjunctivae normal. Cardiovascular: Rate and Rhythm: Normal rate and regular rhythm. Heart sounds: Normal heart sounds. No murmur heard. Comments: Occasional ectopic beat Pulmonary: Effort: Pulmonary effort is normal. No [...] Diagnoses and all orders for this visit: Mild episode of recurrent major depressive disorder Mood is stable on Paxil. Will continue current dosage and will continue to monitor. Panlobular emphysema (HCC) Stable at this time on supplemental oxygen. Frequent falls Patient has need of a rollator in home to help complete ADL's i.e. walking to toilet, walking to kitchen, walking to bedroom, and has weakness in legs requiring patient to have a seat on the rollatorto sit when needed to prevent further falls. Due to current physical limitations, patient cannot safely use a standard cane or walker. Pt is able to safely use a rollator and functional immobility inhome would be resolved by the use of a rollator. The patient has mobility limitations that significantly impair their ability to participate in activities of daily living without the risk of fall. The patient would benefit from this rollator to reasonably complete activities of daily living in an ac ceptable timeframe given current limitations. As the patient is considered a fall risk, the utilization of a rollator would mitigate the risk of morbidity and mortality secondary to the possibility of fall. The patient would benefit from use of a rollator and it would improve functional mobility inregards to the deficit caused by current diagnoses. History of stroke without residual deficits See above. Medically necessary for pt to have a rollator. Supplemental oxygen dependent Medically necessary for patient to continue to have supplemental oxygen. Age-related osteoporosis without current pathological fracture - cholecalciferol 1000 units capsule; Take 1,000 Units by mouth in the morning and 1,000 Units before bedtime. - calcium carbonate (Calcium 600) 600 MG tablet; Take 1 tablet (600 mg) by mouth in the morning and1 tablet (600 mg) in the evening. Take with meals. Discussed Calcium and Vitamin D supplementation. She will take the above daily, will get OTC. Hyperkalemia - Basic metabolic panel; Future Will plan to recheck a BMP in 2 weeks. Impaired fasting glucose Will recheck on fasting BMP in two weeks. Chronic kidney disease, stage 3b (CMS-HCC) - Basic metabolic panel; Future Essential hypertension BP normal in the office today. Advised BP goal < 130/80. Discussed proper BP technique for checking it. The patient was seen today in follow up of recent hospital stay. All available hospital records were reviewed and discussed with the patient. Hospital discharge meds were reviewed. Any changes are asnoted. Follow up for Recheck in 3-4 Weeks. documented in this encounterPershing Memorial [id number] Evaluation note* Diagnosis Onset Date Resolution Status Admit Date Acute dehydration acuteSept2024 11:10pmAcute hyperkalemiaacuteSept2024 11:10pmAKI (acute kidney injury)acuteSept2024 11:10pmDementiaacute October 31, 2024 11:10pmHomicidal ideationsacuteSept2024 11:10pm Suicidal ideationacuteSept2024 11:10pm [facility] Work Phone: 1(710) 167-261709-16-2025 Evaluation note* Diagnosis Onset Date Resolution Status Admit Date Dementia acuteSeptember 2024 11:10pmSuicidal ideationacuteSeptember 2024 11:10pmAcute dehydrationresolvedSeptember 2024 11:10pmAcute hyperkalemia resolvedSeptember 2024 11:10pmAKI (acute kidney injury)resolvedSeptember 2024 11:10pmHomicidal ideationsinactiveSeptember 2024 11:10pmAnxiety and depressionacuteSeptember 2024 2:51pmConcentration deficitacute November 07, 2024 2:51pmDementiaacuteSeptember 2024 2:51pmFamily history of dementiaacuteSeptember 2024 2:51pmMemory lossacuteSeptember 2024 2:51pmOther insomniaacuteSeptember 2024 2:51pmWord finding difficultyacuteSeptember 2024 2:51pm [facility] Work Phone: 1(500) 928-379009-16-2025 Evaluation note* Diagnosis Onset Date Resolution Status Admit Date Dementia acuteSeptember 2024 11:10pmSuicidal ideationacuteSeptember 2024 11:10pmAcute dehydrationresolvedSeptember 2024 11:10pmAcute hyperkalemia resolvedSeptember 2024 11:10pmAKI (acute kidney injury)resolvedSeptember 2024 11:10pmHomicidal ideationsinactiveSeptember 2024 11:10pmAnxiety and depressionacuteSeptember 2024 2:51pmConcentration deficitacute November 07, 2024 2:51pmDementiaacuteSeptember 2024 2:51pmFamily history of dementiaacuteSeptember 2024 2:51pmMemory lossacuteSeptember 2024 2:51pmOther insomniaacuteSeptember 2024 2:51pmWord finding difficultyacuteSeptember 2024 2:51pmAnxiety and depressionacuteSeptember 2024 1:57pmConcentration deficitacuteSeptember 30th, 2025 1:57pmFamily history of dementiaacutept2024 1:57pmMemory lossacuteNovember 15, 2024 1:57pmMild neurocognitive disorderacuteSe2024 1:57pm Other insomniaacuteNovember 15, 2024 1:57pmWord finding difficultyacute November 15, 2024 1:57pm [facility] Work Phone: 1(503) 248-200709-15-2025 Radiology [facility] Main [place] [address] [place] [address] CT Scan Report Signed Patient: Lluvia Ferraro MR#: [id number] : 1940 Acct:[id number] Age/Sex: 84 / F ADM Date: 5 Loc: ER Room: Type: [facility] ER Attending Dr: Copies to: Harpreet Sebastian MD~ Ordering Provider: Harpreet Sebastian MD Date of Service: 10/31/24 CT/CT head/brain wo con: Mental status change CT head/brain wo con 10/31/2024 6:53 PM SIGNS AND SYMPTOMS: Mental status change TECHNIQUE:Multi-detector CT axial slices of the brain were obtained without IV contrast. CT was performed with one or more of the following dose reduction techniques: Automated exposure control, adjustment of the mA and/or kV accordingto patient size, or use of iterative reconstruction technique. COMPARISON: 07/22/2007 FINDINGS: There is no shift of the midline structures, acute intracranial bleeding, mass effects, or evidence of acute ischemia. There is mild age-related cortical atrophy. This periventricular whitematter hypoattenuation. Atherosclerotic changes are noted in the V4 segments of the vertebral arteries and intracranial segments of the internal carotid arteries. The ventricular system is normal in size. The brainstem and the cerebellum are unremarkable. Mucosal thickening is noted in the left maxillary sinus. The visualized intraorbital contents and the infratemporal soft tissues show no acute a bnormality. The osseous structures in the skull base and the calvarium show no abnormality. CT/CT head/brain wo con IMPRESSION: No acute intrapelvic pathology. Chronic age-related neurodegenerative changes are noted as above. Impression dictated by: Jj Wilson M.D. 10/31/2024 7:11 PM Dictation Location: [facility]--17 Transcribed By: REJI 10/31/241910 Dictated By: Jj Wilson II, MD 10/31/241908 Signed By: 10/31/241910 [facility] Work Phone: [phone]) 936-398009-15-2025 History of Present illness Narrative* Ole Yang MD - 10/31/2024 1:30 PM EDT Images from the original note were not included. HPI Med Refill Additional comments: Possibly send Lorazepam in--she was on previously Discuss calcium and vitamin d-- would like to discuss if she needs this face to face for rollator Additional comments: Pt would like to have order sent to [facility] Results Additional comments: Lab results Last edited by Annalise Paniagua LPN on 10/31/2024 1:51 PM. Subjective Patient ID: Lluvia Ferraro is a 84 y.o. female who presents for Dementia, Med Refill (Possibly send Lorazepam in--she was on previously//Discuss calcium and vitamin d-- would like to discuss if she needs this), face to face for rollator (Pt would like to have order sent to [facility]), and Results (Lab results). HPI Current Outpatient Medications on File Prior to [...] mg) by mouth Daily 100 tablet 3 Calcium Carb-Cholecalciferol (Calcium + Vitamin D3) 600-5 MG-MCG tablet Take 2 tablets by mouth 1 (one) time each day at the same time 60 tablet 2 cholecalciferol (Vitamin D-3) 50 MCG (2000 UT) [...] mg) by mouth Daily 90 tablet 3 [DISCONTINUED] Brexpiprazole (Rexulti) 0.25 MG tablet Take 0.25-0.5 mg by mouth Daily Take 0.25 daily for two weeks then 0.5 mg daily. (Patient not taking: Reported on 10/24/2024) 60 tablet 2 [DISCONTINUED] LORazepam (Ativan) 0.5 MG tablet Take 0.5 tablets (0.25 mg) by mouth at bedtime No current facility-administered medications on file prior [...] inman 2010 Visit Vitals BP 128/76 Pulse 71 Ht 5' 7 Wt 169 lb SpO2 100% BMI 26.47 kg/m Smoking Status Never BSA 1.9 m Review of Systems Objective Physical Exam [...] Cognition and Memory: Cognition is impaired (Mild). Maximum Score Orientation 5 ( 3 ) What is the (year), (season), (date), (day), (month)? 5 ( 5 ) Where are we (state), (county), (town), (hospital), (floor)? Registration 3 ( 3 ) Name 3 Objects: One second to say each. Then ask the patient all 3 after you have said them. Give 1 point for each correct answer. Then repeat them until patient learns all 3. Count trials and record. Attention and Calculation 5 ( 5 ) Serial 7's: One point for each correct. Stop after 5 answers. Alternatively, spell world backwards. Recall 3 ( 2 ) Ask for 3 the 3 objects repeated above. Give 1 point for each correct. Language 2 ( 2 ) Name a pencil and watch (2 points). 1 ( 1 ) Repeat the following: No ifs ands or buts (1 point). 3 ( 2 ) Follow a 3-stage command: Take a paper in your right hand, fold it in half and put it on the floor (3 points). 1 ( 1 ) Read and obey the following: Close your eyes (1 point). 1 ( 1 ) Write a sentence (1 point). 1 ( 0 ) Copy design (1 point). Total Score ( 25/30 ) 25-30: Normal score 20-24: Suggests mild dementia 13-20: Suggests moderate dementia Less than 12: Indicates severe dementia Assessment/Plan Diagnoses and all orders for this visit: Mild cognitive impairment - Ambulatory referral to Neuropsychology; Future - MMSE 25/30 today Major depressive disorder, remission status unspecified, unspecified whether recurrent - Family reports episodes of SI at home. Patient denies this. I suspect these may be behavioral issues. I will send to [facility] for Psychiatric evaluation, may need involuntary Psychiatric inpatient stay. I called report to the ER and will send medical records. Chronic combined systolic (congestive) and diastolic (congestive) heart failure (HCC) - No current active congestive heart failure. Dyspnea at exertion, but not at rest. No evidence of pulmonary edema. Medications unchanged. Memory changes - see above Anxiety - LORazepam (Ativan) 0.5 MG tablet; Take 0.5 tablets (0.25 mg) by mouth at bedtime Right sided sciatica Impaired gait and mobility - Patient has need of a rollator in home to help complete ADL's i.e. walking to toilet, walking to kitchen, walking to bedroom, and has weakness in legs requiring patient to have a seat on the rollator to sit when needed to prevent further falls. Due to current physical limitations, patient cannot safely use a standard cane or walker. Pt is able to safely use a rollator and functional immobility in home would be resolved by the use of a rollator. The patient has mobility limitations that significantly impair their ability to participate in activities of daily living without the risk of fall. The patient would benefit from this rollator to reasonably complete activities of daily living in an acceptable timeframe given current limitations. As the patient is considered a fall risk, the utilization of a rollator would mitigate the risk of morbidity and mortality secondary to the possibilityof fall. The patient would benefit from use of a rollator and it would improve functional mobility in regards to the deficit caused by current diagnoses. -This office visit was spent in consultation regarding the patient's current medical problems, differential diagnoses, testing/imaging results, and treatment options. Greater than 45 minutes was spent in [id number] consultation and coordination of care. Follow up in about 2 weeks (around 11/14/2024). documented in this encounterPershing Memorial [id number] History of Present illness Narrative* Nicole Baum NP - 10/13/2024 10:30 AM EDT Images from the original note were not included. Subjective Patient ID: Lluvia Ferraro is a 84 y.o. female who presents for No chief complaint on file.. Lluvia presents today for an ER follow up from having pain for her sciatic nerve pain on the right side. The ER gave her exercises today and now the pain is better. Over the past 2 weeks, how often [...] then 0.5 mg daily. 60 tablet 2 bumetanide (Bumex) 1 MG tablet Take 1 mg by mouth Daily PRN (Patient not taking: Reported on 09/14/2024) Calcium Carb-Cholecalciferol 600-200 MG-UNIT tablet Take 2 tablets by mouth 1 (one) time each day at the same time cholecalciferol (Vitamin D-3) 50 MCG (2000 UT) capsule Take 2,000 Units by mouth Daily lisinopril 5 MG tablet Take 0.5 tablets (2.5 mg) by mouth in the morning. 100 tablet 1 LORazepam (Ativan) 0.5 MG tablet Take 0.5 tablets (0.25 mg) by mouth at bedtime methIMAzole (Tapazole) 5 MG tablet Take 5 [...] left/ right dr inman 2011 Visit Vitals Smoking Status Never Review of Systems Constitutional: Positive for fatigue. HENT: Negative. Eyes: Negative. Respiratory: Negative. Gastrointestinal: Negative. Genitourinary: Negative. Musculoskeletal: Positive for arthralgias. Skin: Negative. Neurological: Negative. Psychiatric/Behavioral: Positive for agitation and decreased concentration. The patient is nervous/anxious. Hematological: Negative. Endocrine: Negative. Allergic/Immunologic: Negative. Objective Physical Exam Vitals reviewed. Constitutional: Appearance: Normal appearance. HENT: Head: Normocephalic. Right Ear: External ear normal. Left Ear: External ear normal. Nose: Nose normal. Mouth/Throat: Pharynx: Oropharynx is clear. Eyes: Conjunctiva/sclera: Conjunctivae normal. Cardiovascular: Rate and Rhythm: Normal rate and regular rhythm. Heart sounds: Normal heart sounds. Pulmonary: Effort: Pulmonary effort is normal. Breath sounds: Normal breath sounds. Abdominal: Palpations: Abdomen is soft. Musculoskeletal: Cervical back: Normal range of motion. Comments: Right hip pain, difficulty ambulating Skin: General: Skin is warm and dry. Neurological: Mental Status: She is alert and oriented to person, place, and time. Motor: Weakness present. Gait: Gait abnormal. Psychiatric: Mood and Affect: Mood normal. Comments: Oriented x 3, mood is normal, thought and judgement is impaired dt diagnosis of dementia. Assessment/Plan 1. Dementia with behavioral disturbance (HCC) The pt is alert, oriented x 3 today. Her rexulti will be continued, 0.5 mg is ordered today. - Brexpiprazole (Rexulti) 0.5 MG tablet; Take 1 tablet by mouth Daily Dispense: 90 tablet; Refill: 0 2. Age-related osteoporosis without current pathological fracture (Primary) - Calcium Carb-Cholecalciferol (Calcium + Vitamin D3) 600-5 MG-MCG tablet; Take 2 tablets by mouth 1 (one) time each day at the same time Dispense: 60 tablet; Refill: 2 3. Fatigue, unspecified type Repeat labs ordered. - Comprehensive metabolic panel; Future - CBC; Future - Comprehensive metabolic panel - CBC 4. Anxiety Ativan continues as ordered, paxil continues as ordered. 5. Right sided sciatica Continue exercises as discussed at her ER visit. Continue Tylenol prn. 6. Chronic respiratory failure, unspecified whether with hypoxia or hypercapnia (HCC) Stable. Albuterol prn as ordered. 7. Chronic respiratory failure with hypoxia (HCC) Stable. No follow-ups on file. documented in this encounterPershing Memorial [id number] Instructions* Patient Instructions* Nicole Baum NP - 10/13/2024 10:30 AM EDT Rexulti increased today Repeat labs ordered Advised to continue exercises as discussed at the ER. Continue tylenol prn Repeat labs ordered. documented in this [facility]08-28-2025 History of Present illness Narrative* Kenneth Skinner, DPM - 10/13/2024 9:30 AM EDT Patient: Lluvia Ferraro : 1940 PCP: Ole Yang MD SUBJECTIVE [...] have tried no treatments for the condition. Statesswelling worstens with prolonged standing activities. Allergies: No [...] 4 (four) hours if needed for wheezing, Disp:18 g, Rfl: 3 apixaban (Eliquis) 5 MG [...] 1 tablet (50 mg) by mouth Daily, Disp:100 tablet, Rfl: 3 Multiple Vitamins-Minerals (Multi For [...] 0 min Stress: Stress Concern Present (06/01/2024) [place] [employer] - Occupational Stress Questionnaire Feeling of Stress : Rather much Social Connections: Moderately Isolated (06/01/2024) Social Connection and Isolation Panel [NHANES] Frequency of Communication with Friends and Family: More than three times a week Frequency of Social Gatherings with Friends and Family: Twice a week Attends Rastafari Services: Never Active Member of Clubs or [...] through 10. diminished hair growth b/l feet. +1pitting edema to bilateral ankles VASC: Positive DP [...] edema. Discussed condition in detail. Recommendation for dcrt-rpi-hqbduwv compression stockings at this time and may consider prescription stockings in the future. Kenneth Skinner DPM documented in this encounterPershing Memorial [id number] History of Present illness Narrative* Ole Yang MD - 09/14/2024 10:00 AM EDT Subjective Patient ID: Lluvia Ferraro is a [...] and sedentary lifestyle. Pt was discharged from [facility] 3 weeks ago--med list has [...] .25 mg daily 15 tablet 3 [DISCONTINUED] Rsumfht-Hanebxjsolq-Hgyvgpdbxa (Breztri Aerosphere) 160-9-4.8 MCG/ACT aerosol Inhale2 puffs in the morning and 2 puffs before bedtime. 10.7 g 3 [DISCONTINUED] LORazepam (Ativan) 0.5 MG tablet Take 1 tablet (0.5 mg) by mouth as needed at bedtime for anxiety [DISCONTINUED] LORazepam (Ativan) 0.5 MG tablet Take 1 tablet (0.5 mg) by mouth every 6 (six) hoursif needed for anxiety 90 tablet 0 [DISCONTINUED] [...] at bedtime Hyperthyroidism Coronary artery 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 angina pectoris Panlobular emphysema (HCC) Deformity of toenail - Ambulatory referral to Podiatry; Future Follow up in about 2 months (around 11/15/2024) for Routine F/U. documented in this encounterPershing Memorial [id number] Telephone encounter Note* Telephone Encounter - SILVIA Branham - 09/08/2024 7:03 PM EDT OARRS reviewed, Rx sent into patient's pharmacy. [facility] [id number] Miscellaneous Notes* Telephone Encounter - SILVIA Branham - 09/08/2024 7:03 PM EDT OARRS reviewed, Rx sent into patient's pharmacy. documented in this encounterPershing Memorial [id number] History of Present illness Narrative* Ole Yang MD - 08/15/2024 2:30 PM EDT Images from the original note were not included. Subjective Patient ID: Lluvia Ferraro is a 83 y.o. female who presents for No chief complaint on file.. Lluvia presents today for being discharged from a senior care. She says she is feeling much better [...] mg by mouth Daily 60 tablet 3 Mchwsfq-Whrqzybmzcg-Oxhriqhobv (Breztri Aerosphere) 160-9-4.8 MCG/ACT aerosol Inhale 2 puffs in themorning and 2 puffs before bedtime. 10.7 g [...] follow up of recent hospital and senior care stay. All available hospital records were reviewed and discussed with the patient. Hospital discharge meds were reviewed.Any changes are as noted. This office visit was spent in consultation regarding the patient's current medical problems, differential diagnoses, testing/imaging results, and treatment options. Greater than 25 minutes was spentin zsms-qw-sekg consultation and coordination of care. Pulmonary emphysema, unspecified emphysema type (HCC) Hypoxia Chronic combined systolic (congestive) and diastolic (congestive) heart failure (HCC) Chronic kidney disease, stage 3b (CMS-HCC) Coronary artery 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 angina pectoris Follow up in about 4 weeks (around 09/12/2024). documented in this encounterPershing Memorial [id number] [facility] Reason for [...] ounce of water a day 08/07/2023 Lluvia Ferraro is a 83 y.o. female [...] day by oral route., Disp: , Rfl: ohwceztdvk-zhyjfhej-cwnjrgidrx (Breztri Aerosphere) 160-9-4.8 mcg/actuation HFA aerosol inhaler, [...] in no acute distress. (more content not included)...[facility]04-17-2025 History of Present illness Narrative* SILVIA Branham - 06/02/2024 9:30 AM EDT Images from the original note were not included. HPI Cough Additional comments: Admits with yellow/green phlegm for 1 week. Denies any other symptoms. Last edited by SILVIA Branham on 06/02/2024 9:58 AM. Subjective Patient ID: Lluvia Ferraro is a 83 y.o. female who presents [...] Do you have a medical power of sports attorney?: Yes Current Outpatient Medications on File [...] mg) by mouth Daily 100 tablet 3 Gehzkmk-Hezpifurgyr-Lsfgsvqlwy (Breztri Aerosphere) 160-9-4.8 MCG/ACT aerosol Inhale 2 puffs in themorning and 2 puffs before bedtime. 10.7 g [...] All needed testing was ordered. Will continue withyearly Medicare Wellness exams. 2. ACP (advance care [...] oxygen. 7. Mild intermittent asthma without complication ([facility]/HCC) This is a chronic medical condition [...] failure (CMS/HCC) The patient is seeing a ophthalmic medical technologist for this condition, treatment is deferred to that specialist. Correspondence from that specialist and any available testing were reviewed during today's visit. 11. Chronic atrial fibrillation, unspecified (CMS/HCC) The patient is seeing a ophthalmic medical technologist for this condition, treatment is deferred to that specialist. Correspondence from that specialist and any available testing were reviewed during today's visit. 12. Chronic combined systolic (congestive) and diastolic (congestive) heart failure The patient is seeing a ophthalmic medical technologist for this condition, treatment is deferred to that specialist. Correspondence from that specialist and any available testing were reviewed during today's visit. 13. Chronic systolic dysfunction of left ventricle The patient is seeing a ophthalmic medical technologist for this condition, treatment is deferred to that specialist. Correspondence from that specialist and any available testing were reviewed during today's visit. 14. Coronary artery 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 angina pectoris ([facility]/HCC) The patient is seeing a ophthalmic medical technologist for this condition, treatment is deferred to that specialist. Correspondence from that specialist and any available testing were reviewed during today's visit. 15. Primary hypertension (CMS/HCC) The patient is seeing a ophthalmic medical technologist for this condition, treatment is deferred to that specialist. Correspondence from that specialist and any available testing were reviewed during today's visit. 16. ICD (implantable cardioverter-defibrillator) in place The patient is seeing a ophthalmic medical technologist for this condition, treatment is deferred to that specialist. Correspondence from that specialist and any available testing were reviewed during today's visit. 17. Non-rheumatic mitral regurgitation The patient is seeing a ophthalmic medical technologist for this condition, treatment is deferred to that specialist. Correspondence from that specialist and any available testing were reviewed during today's visit. 18. Status post biventricular cardiac pacemaker insertion The patient is seeing a ophthalmic medical technologist for this condition, treatment is deferred to that specialist. Correspondence from that specialist and any available testing were reviewed during today's visit. 19. Chronic kidney disease, stage 3b (HCC) ([facility]) This is a chronic medical condition that is stable since last assessment. Will continue to monitor with routine labs. 20. Age-related osteoporosis without current pathological fracture ([facility]) This is a chronic medical condition that is stable since last assessment. Will continue to monitor with routine DEXA Scans. 21. Arthritis of right shoulder region This is a chronic medical condition that is stable since last assessment. No treatment requested bypatient at this time. 22. Joint derangement of shoulder region This is a chronic medical condition that is stable since last assessment. No treatment requested bypatient at this time. 23. Primary osteoarthritis involving multiple joints This is a chronic medical condition that is stable since last assessment. No treatment requested bypatient at this time. 24. Rotator cuff syndrome of right shoulder This is a chronic medical condition that is stable since last assessment. No treatment requested bypatient at this time. 25. Hyperthyroidism ([facility]) The patient is seeing a ophthalmic medical technologist for this condition, treatment is deferred to [...] Lorazepam as needed. 30. Current use of custodial anticoagulation This is a chronic medical condition [...] 09/01/2024) for Medication Follow Up. Dipti CORNELIUS, ISATUC documented in this encounterPershing Memorial [id number] History of Present illness Narrative* Teri Jo MD - 06/01/2024 10:00 AM EDT Lluvia Ferraro is a 83 y.o. female No ref. [...] 05/2020 TSH 2.6, free T4 1.04 mid-normal (0.78- 2.19), free T3 mildly low at 2.49(2.77-5.27). Interim [...] for lab done in in [facility]: TSH still suppressed 0.07, free T4 [...] 2.22 (0.78-2.19), TSH 0.02, free T3 5.24 (2.77- 5.77). TPO 8, TG antibody less than 10, TRAb 0.71 and she is currently on methimazole 10 mg once a day and metoprolol 50 once a day. HPI: 01/03 New patient sent from Dr. Ole Yang for hyperthyroidism, TSH 0.03, free T4 2.52 (0.8-1.8), and she has afib, on anticoagulation, and digoxin, and she feel palpitations sometimes, and diarrhea, andnever have any thyroid problem before, and she say last year was within normal limits. Denies family history of thyroid disease. SUBJECTIVE: MEDICATIONS: Current Outpatient Medications Medication Instructions albuterol HFA 90 mcg/act inhaler 2 puffs, Inhalation, Every 4 hours PRN apixaban (ELIQUIS) 5 mg, Oral, 2 times daily aspirin 81 MG EC tablet Every 24 hours atorvastatin (LIPITOR) 80 mg, Oral, Daily Ubfwylr-Kdajbbhkevi-Erkdhfwhbv (Breztri Aerosphere) 160-9-4.8 MCG/ACT aerosol 2 puffs, [...] 6 months (around 12/01/2024). documented in this [facility]03-27-2025 Telephone encounter Note* Telephone Encounter - Annalise Paniagua LPN - 05/12/2024 3:07 PM EDT Needs sent to [facility] [id number] Miscellaneous Notes* Telephone Encounter - Annalise Paniagua LPN - 05/12/2024 3:07 PM EDT Needs sent to [facility] documented in this [facility]02-12-2025 History of Present illness Narrative* Ole Yang MD - 03/30/2024 10:15 AM EST Images from the original note were not included. Subjective Patient ID: Lluvia Ferraro is a 83 y.o. female who presents [...] mg) by mouth Daily 100 tablet 3 Rhndgdo-Lbpmpqqfbhy-Rkmucptzxz (Breztri Aerosphere) 160-9-4.8 MCG/ACT aerosol Inhale 2 puffs in themorning and 2 puffs before bedtime. 10.7 g [...] this visit: Pulmonary emphysema, unspecified emphysema type ([facility]) - This is a chronic medical condition that is stable since last assessment. No changes in treatmentare suggested at this time. Age-related osteoporosis without current pathological fracture (CMS/HCC) - denosumab (Prolia) injection 60 mg Follow up in about 6 months (around 09/27/2024) for Routine F/U. documented in this encounterPershing Memorial [id number] History of Present illness Narrative* SILVIA Branham - 02/25/2024 10:00 AM EST Subjective Patient ID: Lluvia Ferraro is a 83 y.o. female who presents [...] it is better. States, It's me, I knowit is. States she must be checking it wrong, worries about her BP being elevated. Admits it is better after she has been sitting for a while. Current Outpatient Medications on File Prior to Visit Medication Sig Dispense Refill lisinopril 5 MG tablet TAKE 1 TABLET EVERY MORNING (Patient taking differently: Take 0.5 tablets bymouth in the morning.) 100 tablet 3 albuterol [...] 1 TABLET EVERY MORNING 100 tablet 3 Eqnnhuk-Fjjfswrrziz-Bkwaazojre (Breztri Aerosphere) 160-9-4.8 MCG/ACT aerosol Inhale 2 [...] upcoming fasting labs. Coronary artery 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 angina pectoris (CMS/HCC) - CBC and differential; Future - Lipid panel; Future - Vitamin D 25 hydroxy Total; Future The patient is seeing a ophthalmic medical technologist for this condition, treatment is deferred to that specialist. Correspondence from that specialist and any available testing were reviewed during today's visit. Age-related osteoporosis without current pathological fracture (CMS/HCC) - Vitamin D 25 hydroxy Total; Future Will continue to monitor with routine DEXA scans. Continue Vitamin D and Calcium supplements daily. Cardiomyopathy, unspecified (CMS/HCC) The patient is seeing a ophthalmic medical technologist for this condition, treatment is deferred to that specialist. Correspondence from that specialist and any available testing were reviewed during today's visit. Longstanding persistent atrial fibrillation (CMS/HCC) The patient is seeing a ophthalmic medical technologist for this condition, treatment is deferred to that specialist. Correspondence from that specialist and any available testing were reviewed during today's visit. Chronic obstructive pulmonary disease, unspecified (CMS/HCC) See above. Chronic kidney disease, stage 3b (HCC) (CMS/HCC) Will continue to monitor with routine labs. 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) The patient is seeing a ophthalmic medical technologist for this condition, treatment is deferred to that specialist. Correspondence from that specialist and any available testing were reviewed during today's visit. Chronic atrial fibrillation, unspecified (CMS/HCC) The patient is seeing a ophthalmic medical technologist for this condition, treatment is deferred to that specialist. Correspondence from that specialist and any available testing were reviewed during today's visit. Supplemental oxygen dependent Using oxygen concentrator, O2 via nasal cannula. Oxygen is medically necessary for patient due to hypoxia and significant CLAIRE without it. Follow up in about 3 months (around 05/27/2024) for Medicare Wellness Visit. documented in this encounterPershing Memorial [id number] [facility] follow-up note Reason for [...] ounce of water a day 08/07/2023 Lluvia Ferraro is a 83 y.o. female [...] by mouth at bedtime., Disp: , Rfl: axlnwvjcfl-kzmeylcz-rinkiwbwja (Breztri Aerosphere) 160-9-4.8 mcg/actuation HFA aerosol inhaler, [...] peak stress ECG findings (more content not included)...[facility]10-16-2024 History of Present illness Narrative* Teri Jo MD - 12/02/2023 10:10 AM EDT Lluvia Ferraro is a 83 y.o. female Teri Jo MD presents with chief complaint of Thyroid [...] 05/2020 TSH 2.6, free T4 1.04 mid-normal (0.78- 2.19), free T3 mildly low at 2.49(2.77-5.27). Interim [...] for lab done in in [facility]: TSH still suppressed 0.07, free T4 [...] 2.22 (0.78-2.19), TSH 0.02, free T3 5.24 (2.77- 5.77). TPO 8, TG antibody less than 10, TRAb 0.71 and she is currently on methimazole 10 mg once a day and metoprolol 50 once a day. HPI: 01/03 New patient sent from Dr. Ole Yang for hyperthyroidism, TSH 0.03, free T4 2.52 (0.8-1.8), and she has afib, on anticoagulation, and digoxin, and she feel palpitations sometimes, and diarrhea, andnever have any thyroid problem before, and she say last year was within normal limits. Denies family history of thyroid disease. SUBJECTIVE: MEDICATIONS: Current Outpatient Medications Medication Instructions albuterol HFA 90 mcg/act inhaler 2 puffs, Inhalation, Every 4 hours PRN apixaban (ELIQUIS) 5 mg, Oral, 2 times daily aspirin 81 MG EC tablet Every 24 hours atorvastatin (LIPITOR) 80 mg, Oral, Daily Kjqdzwr-Pyfqzcyvepx-Bgvjstinlh (Breztri Aerosphere) 160-9-4.8 MCG/ACT aerosol 2 Inhalation [...] 6 months (around 06/01/2024). documented in this encounterPershing Memorial [id number] History of Present illness Narrative* SILVIA Branham - 11/26/2023 10:00 AM EDT Images from the original note were not included. Subjective Patient ID: Lluvia Ferraro is a 83 y.o. female who presents [...] carting around the oxygen tank. [facility] to [facility] a smaller [...] mouth in the morning. 100 tablet 3 Ebkzpjj-Wdvkqeeuaea-Ykeaktrnpr (Breztri Aerosphere) 160-9-4.8 MCG/ACT aerosol Inhale 2 [...] vaccination - Influenza, high-dose seasonal, quadrivalent, PF (SQA326) (Fluzone High Dose Quad [place] 0.7mL dose) [...] controlled. Continue with current medications and I willcontinue to monitor. Goal BP remains less than 130/80. 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) Inability to be mobile has greatly decreased patient's mood. She is irritable, lashing out at family, and her mood is lower. As the mood worsening appears situational, she is in agreement to hold offon any medication changes/additions at this point, and re-evaluate her mood once she receives her concentrator. Active listening provided. Encouraged her to focus on the positive things and not to hesitate to ask for help when needed. Follow up in about 3 months (around 02/26/2024) for COPD. documented in this encounterPershing Memorial [id number] Telephone encounter Note* Telephone Encounter - SILVIA Branham - 10/30/2023 7:50 AM EDT OARRS reviewed, Rx sent into patient's pharmacy. [facility] [id number] Miscellaneous Notes* Telephone Encounter - SILVIA Branham - 10/30/2023 7:50 AM EDT OARRS reviewed, Rx sent into patient's pharmacy. documented in this encounterPershing Memorial [id number] History of Present illness Narrative* Eliel Nichols, OD - 04/27/2023 11:00 AM EDT Lluvia Ferraro 1940 Diagnosis: 1. Esotropia of right eye [...] like to follow up with her local valet parker for regular eyecare/comprehensive exams. Will send a copy of today's note. I am happy to see her back as needed. Follow Up: Return if symptoms worsen or fail to improve. Chief Complaint: Lluvia Ferraro had concerns including Follow-up. HPI This is [...] tablet (1,000 mg total) by mouth in themorning. aspirin 81 mg daily. atorvastatin (LIPITOR) 80 [...] (TOPROL XL) 50 mg 24 hr tablet multivitamin,an-qgxq-Gn-FA-min 27-0.4 mg tablet 1 (one) time each [...] facility-administered medications for this visit. (Other) Ms. Ferraro has a past medical history of COPD (chronic obstructive pulmonary disease) ([facility]-HCC) andHypertension. She has a past surgical history that includes Hysterectomy; Knee surgery (Bilateral);Appendectomy; and Cardiac defibrillator placement. Base Eye Exam [...] both accurate and complete. documented in this encounterOhio State East HospitalQ-Sensei Formerly [facility] [id number] History of Present illness Narrative* Annalise Paniagua LPN - 02/11/2023 2:45 PM EST Subjective Patient ID: Lluvia Ferraro is a 82 y.o. female who presents [...] TAKE 1 TABLET DAILY for 100 days Hphwmie-Xebofptnfin-Ywdtbtmpna (Breztri Aerosphere) 160-9-4.8 MCG/ACT aerosol Inhale 1 [...] tablet (500 mg) by mouth in the morningfor 7 days. 7 tablet 0 No current [...] History of atrial fibrillation History of echocardiogram 2018 EF 60-65% History [...] No follow-ups on file. documented in this encounterPershing Memorial [id number] NoteEXAMINATION: XR CHEST 2 V HISTORY: Cardiac pacemaker procedure COMPARISON: [...] Electronically authenticated by: JOEL ANDINO Date: 2021-08-22 17:39[facility]05-02-2022 NotePROCEDURE: XR FEMUR LT HISTORY: Pain in lower limb ; anterior posterior mid thigh pain for one week COMPARISON: None. FINDINGS: BONES:Moderate degenerative changes of the hip joint. Prior knee replacement. No fracture, dislocation, or bone lesion. SOFT TISSUES:No visible soft tissue swelling. EFFUSION:None visible. OTHER: Negative. IMPRESSION: 1. No appreciable acute abnormality. 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 angina pectoris (CMS/HCC) Age-related osteoporosis [...] Double vision Diplopia [facility]* Diagnosis Anxiety Anxiety state, [...] ovarian failure Pulmonary emphysema, unspecified emphysema type ([facility]/HCC) Dyspnea on exertion Other dyspnea and respiratory abnormality Hypoxia Hypoxemia Mild intermittent asthma without complication ([facility]/HCC) Panlobular emphysema ([facility]/HCC) Other emphysema Supplemental oxygen dependent Dependence on supplemental oxygen Benign hypertensive heart disease with heart failure ([facility]/HCC) Chronic atrial fibrillation, unspecified ([facility]/HCC) 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 systolic dysfunction of left ventricle Coronary artery 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 angina pectoris ([facility]/HCC) Primary hypertension ([facility]/HCC) Unspecified essential hypertension ICD (implantable cardioverter-defibrillator) in place Non-rheumatic mitral regurgitation Status post biventricular cardiac pacemaker insertion Chronic kidney disease, stage 3b (HCC) ([facility]) Age-related osteoporosis without current pathological fracture ([facility]) Arthritis of right shoulder region Joint derangement of shoulder region Unspecified derangement, shoulder region Primary osteoarthritis involving multiple joints Rotator cuff syndrome of right shoulder Hyperthyroidism ([facility]) Thyrotoxicosis without mention of goiter or other cause, without mention of thyrotoxic crisis or storm Impaired fasting glucose Overweight (BMI 25.0-29.9) Overweight Primary ovarian failure Other ovarian failure Anxiety Anxiety state, unspecified Current use of custodial anticoagulation Diplopia Elevated liver enzymes Other nonspecific abnormal serum enzyme levels Frequent falls History of stroke without residual deficits Transient ischemic attack (TIA), and cerebral infarction without residual deficits Memory changes Mild episode of recurrent major depressive disorder (HCC) ([facility]/HCC) COPD exacerbation ([facility]) Obstructive chronic bronchitis with exacerbation documented in this encounter [facility] HealthcareEvaluation noteNo assessment information availableUpper Valley Medical Center Work Phone: Evaluation note* Diagnosis Dementia with behavioral disturbance (HCC)- Primary Pulmonary emphysema, unspecified emphysema type (HCC) Hypoxia Hypoxemia Chronic combined systolic (congestive) and diastolic (congestive) heart failure (HCC) Chronic kidney disease, stage 3b ([facility]-HCC) Coronary artery 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 angina pectoris documented in this encounter [facility] HealthcareEvaluation note* Diagnosis Anxiety Anxiety state, unspecified documented in this encounter [facility] HealthcareEvaluation note* Diagnosis Chronic kidney disease, stage 3b (CMS-HCC)- Primary Chronic combined systolic (congestive) and diastolic (congestive) heart failure (HCC) Supplemental oxygen dependent Dependence on supplemental oxygen Anxiety Anxiety state, unspecified Hyperthyroidism Thyrotoxicosis without mention of goiter or other cause, without mention of thyrotoxic crisis or storm Coronary artery 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 angina pectoris Panlobular emphysema (HCC) Other emphysema Deformity of toenail Unspecified disease of nail documented in this encounter [facility]* Diagnosis Venous insufficiency- Primary Unspecified venous (peripheral) insufficiency Deformity of toenail Unspecified disease of nail Pain due to onychomycosis of toenails of both feet documented in this encounter [facility]* Diagnosis Dementia with behavioral disturbance (HCC)- Primary Age-related osteoporosis without current pathological fracture Fatigue, unspecified type Anxiety Anxiety state, unspecified Right sided sciatica Sciatica Chronic respiratory failure, unspecified whether with hypoxia or hypercapnia (HCC) Chronic respiratory failure with hypoxia (HCC) documented in this encounter [facility]* Diagnosis Mild cognitive impairment- Primary Mild cognitive impairment, so stated Major depressive disorder, remission status unspecified, unspecified whether recurrent Chronic combined systolic (congestive) and diastolic (congestive) heart failure (HCC) Memory changes Anxiety Anxiety state, unspecified Right sided sciatica Sciatica Impaired gait and mobility documented in this encounter [facility]* Diagnosis Onset Date Resolution Status Admit Date Acute dehydration acuteSeptember 2024 11:10pmAcute hyperkalemiaacuteSeptember 2024 11:10pmAKI (acute kidney injury)acuteSeptember 2024 11:10pmHomicidal ideationsacuteSeptember 2024 11:10pmSuicidal ideationacuteSeptember 2024 11:10pm [facility] Work Phone: Evaluation note* Diagnosis Mild episode of recurrent major depressive disorder- Primary Panlobular emphysema (HCC) Other emphysema Frequent falls History of stroke without residual deficits Transient ischemic attack (TIA), and cerebral infarction without residual deficits Supplemental oxygen dependent Dependence on supplemental oxygen Age-related osteoporosis without current pathological fracture Hyperkalemia Hyperpotassemia Impaired fasting glucose Chronic kidney disease, stage 3b (CMS-HCC) Essential hypertension Unspecified essential hypertension documented in this encounter [facility]* Diagnosis Hyperthyroidism- Primary Thyrotoxicosis without mention of goiter or other cause, without mention of thyrotoxic crisis or storm Multinodular goiter Nontoxic multinodular goiter Longstanding persistent atrial fibrillation (HCC) documented in this encounter [facility] HealthcareEvaluation note* Diagnosis 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)- Primary Acute bronchitis, unspecified organism documented in this encounter [facility] HealthcareEvaluation note* Diagnosis Type 2 diabetes mellitus with other specified complication, without long-term current use of insulin (HCC)- Primary Chronic combined systolic (congestive) and diastolic (congestive) heart failure (HCC) Coronary artery 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 angina pectoris Hyperthyroidism Thyrotoxicosis without mention of goiter or other cause, without mention of thyrotoxic crisis or storm Pure hypercholesterolemia Chronic kidney disease, stage 3b ([facility]-HCC) documented in this encounter [facility] HealthcareInstructions* Attachments The following attachments cannot be sent through Care Everywhere. * Double Vision (Salvadorean) documented in this encounterProMedifl Health SystemReason for referral (narrative)No reason for referral information availableKettering Health [facility] Ctr Work Phone: Summary Purpose Family History Relationship Condition Age at Onset Recorded Date/T dixon brother Suicide Unknown Diabetes mellitusUnknownmotherMyocardial infarctionUnknownMalignant neoplasm UnknownfatherMyocardial infarctionUnknown Advance Directives TypeDate RecordedPatient RepresentativeExplanationPower of Attorney02/25/2024 12:18 PMHealthcare Power of AttorneyTypeDate RecordedPatient Cloth Designer ExplanationPower of Attorney02/25/2024 12:18 PMHealthcare Power of Home Energy Rater Advance Directive Response Recorded Date/ Time Advance Directives No October 6:48pm Reason for Referral SpecialtyDiagnoses / ProceduresReferred By ContactReferred To ContactRadiology Diagnoses Leg hematoma, right, initial encounter Current use of long term acute care registered nurse anticoagulation Localized edema Procedures Vascular US lower extremity venous duplex right Ole Yang MD [address] [place] [address] [facility] [address] [place] [address] Referral IDStatusReasonStart DateExpiration DateVisits RequestedVisits [id number] Chief Complaint and Reason for Visit Chief Complaint Admit Date ^ October 25, 2003 6:00am Unknown September 26, 2024 1: 30pm [facility] October 31, 2024 11:10pm Reason for Visit Admit Date Acute dehydration October 31, 2024 11:10pm Acute hyperkalemia October 31, 2024 11:10pm DONNA (acute kidney injury) October 11:10pm Homicidal ideations October 31, 2024 11:10pm Suicidal ideation October 31, 2024 11:10pm Chief Complaint Admit Date ^ October 25, 2003 6:00am Unknown July 22, 2024 6:10a m Unknown September 26, 2024 1: 30pm Additional Source Comments INFORMATION SOURCE (unrecogn ized section and content) DATE CREATED AUTHOR 10/15/2021 [facility] DATE CREATED AUTHOR AUTHOR'S ORGANIZ ATION 05/18/2022 [facility] DATE CREATED AUTHOR AUTHOR'S ORGANIZ ATION 04/27/[address] [facility] DATE CREATED AUTHOR AUTHOR'S ORGANIZ ATION 11/24/2024 [facility] DATE CREATED AUTHOR AUTHOR'S ORGANIZ ATION 11/29/2024 [facility] DATE CREATED AUTHOR AUTHOR'S ORGANIZ ATION 12/13/2024 [facility] DATE CREATED AUTHOR AUTHOR'S ORGANIZ ATION 12/15/2024 [facility] EPIC Reason for Visit (unrecogniz ed section and content) ReasonCommentsleg discolorationReasonCommentsThyroid ProblemFollow-upReasonOnset DateCommentsMed Whbmdn2910/29/2023easonCommentsprolia injectionReasonComments Follow-upReasonOnset DateCommentsMed Uwacmh5405/12/2024ReasonCommentsThyroid ProblemFollow-upLABReasonCommentsCoughAdmits with yellow/green phlegm for 1 week. Denies any other symptoms.Medicare Annual Wellness Visit SubsequentReason CommentsMed RefillReasonCommentsCongestive Heart FailureHypertensionReason CommentsToenail CareSpecialtyDiagnoses / ProceduresReferred By ContactReferred To ContactPodiatry Diagnoses Deformity of toenail Procedures AK OFFICE/OUTPATIENT NEW HIGH MDM 60 MINUTES Ole Yang MD [address] [place] [address] Phone: tel: fax: Kenneth Skinner DPM [address] [place] [address] Phone: tel: fax: Referral IDStatusReasonStart DateExpiration DateVisits RequestedVisits [id number] Specialty Services Required /[id number]d RefillPossibly send Lorazepam in--she was on previouslyDiscuss calcium and vitamin d-- would like to discuss if she needs thisface to face for rollatorPt would like to have order sent to [facility] medicalResultsLab resultsReasonCommentsGait ProblemNeeds face to face for rollator.ReasonCommentsThyroid ProblemFollow-uplabReasonComments HypertensionWheezingReasonCommentsHypertension Care Teams (unrecognized sec tion and content) Team MemberRelationshipSpecialtyStart DateEnd Date Ole Yang MD [address] [place] [address] PCP - ACO Reach07/10/22 Ole Yang MD [address] [place] [address] PCP - GeneralInternal Medicine07/28/22Team MemberRelationshipSpecialtyStart Date End Date Ole Yang MD [address] [place] [address] PCP - [facility]07/10/22 Ole Yang MD [address] [place] [address] PCP - GeneralInternal Medicine07/28/22ThuKeonBea LPN [address] [place] [address] Licensed Practical NurseFamily Medicine10/27/23Team MemberRelationshipSpecialty Start DateEnd Date Ole Yang MD [address] [place] [address] PCP - [facility]CO Re[facility]07/10/22 Ole Yang MD [address] [place] [address] PCP - GeneralInternal Medicine07/28/22ThursdayBea LPN [address] [place] [address] Licensed Practical NurseFaakly Medicine10/27/23Team MemberRelationshipSpecialty Start DateEnd Date Ole Yang MD [address] [place] [address] PCP - O Re[facility]07/10/22 Ole Yang MD [address] [place] [address] PCP - GeneralInternal Medicine07/28/22ThursdayBea LPN [address] [place] [address] Licensed Practical NurseFamily Medicine10/27/23Te MemberRelationshipSpecialty Start DateEnd Date Oel Yang MD [address] [place] [address] PCP - [facility]07/10/22 Ole Yang MD [address] [place] [address] PCP - GeneralInternal Medicine07/28/22Thursday, Bea, VP BIOLOGY [address] [place] [address] Licensed Practical NurseFamily Medicine10/27/23Team MemberRelationshipSpecialty Start DateEnd Date Ole Yang MD [address] [place] [address] PCP - O [facility]07/10/22 Ole Yang MD [address] [place] [address] PCP - GeneralInternal Medicine07/28/22Thursday, YASIR FigueredoN [address] [place] [address] Licensed Practical NurseRegional Medical Centerly Medicine10/27/23Team MemberRelationshipSpecialty Start DateEnd Date Ole Yang MD [address] [place] [address] [facility]07/10/22 Ole Yang MD [address] [place] [address] PCP - GeneralInternal Medicine07/28/22 Debora Saenz, CHERI Licensed Practical NurseP[facility]03/25/24Team MemberRelationshipSpecialty Start DateEnd Date Ole Yang MD [address] [place] [address] PCP - O [facility]07/10/22 Ole Yang MD [address] [place] [address] PCP - GeneralInternal Medicine07/28/22 Debora Saenz, RN Licensed Practical NurseP[facility]mont [facility]03/25/24Team MemberRelationshipSpecialty Start DateEnd Date Ole Yang MD [address] [place] [address] PCP - GeneralInternal Medicine08/13/22Team MemberRelationshipSpecialtyStart Date End Date lOe Yang MD [address] [place] [address] [facility]CP - [facility]07/10/22 Ole Yang MD [address] [place] [address] PCP - GeneralInternal Medicine07/28/22 Edna Alcantara [facility] 05/06/24Team MemberRelationshipSpecialtyStart DateEnd Date Ole Yang MD [address] [place] [address] [facility] - [facility]07/10/22 Ole Yang MD [address] [place] [address] PCP - GeneralInternal Medicine07/28/22 Edna Alcantara, [facility] 05/06/24Team MemberRelationshipSpecialtyStart DateEnd Date Ole Yang MD [address] [place] [address] PCP - ACO [facility]07/10/22 Ole Yang MD [address] [place] [address] PCP - GeneralInternal Medicine07/28/22 [facility]AmairaniEdnaNew [facility] 05/06/24Team MemberRelationshipSpecialtyStart DateEnd Date Ole Yang MD [address] [place] [address] PCP - ACO [facility]07/10/22 Ole Yang MD [address] [place] [address] PCP - [facility]07/28/22 Ewing [facility] 05/06/24Team MemberRelationshipSpecialtyStart DateEnd Date Ole Yang MD [address] [place] [address] PCP - [facility]07/10/22 Ole Yang MD [address] [place] [address] PCP - [facility]07/28/22 [facility]AmairaniEdnaNew [facility] 05/06/24 Team Status: Active Member Role Status Dates Michael Zapien Attending Provider Active Start: October 25, 2003 Team Status: Inactive Member Role Status Dates Luis E Soares MD Attending Provider Active St art: July 22, 2024 End: July 22, 2024Team MemberRelationshipSpecialtyStart DateEnd Date Ole Yang MD [address] [place] [address] PCP - [facility]07/10/22 Ole Yang MD [address] [place] [address] [facility]22 Edna Alcantara LPN 05/06/24Team MemberRelationshipSpecialtyStart DateEnd Date Ole Yang MD [address] [place] [address] PCP - [facility]07/10/22 Ole Yang MD [address] [place] [address] PCP - GeneralInternal Medicine07/28/22 Edna Alcantara LPN [address] [place] [address] 05/06/24Team MemberRelationshipSpecialtyStart DateEnd Date Ole Yang MD [address] [place] [address] PCP - [facility]07/10/22 Ole Yang MD [address] [place] [address] PCP - GeneralInternal Medicine07/28/22 Edna Alcantara LPN [address] [place] [address] 05/06/24Team MemberRelationshipSpecialtyStart DateEnd Date Ole Yang MD [address] [place] [address] PCP - [facility]07/10/22 Ole Yang MD [address] [place] [address] PCP - GeneralInternal Medicine07/28/22 Edna Alcantara LPN [address] [place] [address] 05/06/24Team MemberRelationshipSpecialtyStart DateEnd Date Ole Yang MD [address] [place] [address] PCP - [facility]07/10/22 Ole Yang MD [address] [place] [address] PCP - GeneralInternal Medicine07/28/22 Edna Alcantara LPN [address] [place] [address] 05/06/24Team MemberRelationshipSpecialtyStart DateEnd Date Ole Yang MD [address] [place] [address] PCP - [facility]07/10/22 Ole Yang MD [address] [place] [address] PCP - GeneralInternal Medicine07/28/22 Edna Alcantara LPN [address] [place] [address] 05/06/24Team MemberRelationshipSpecialtyStart DateEnd Date Ole Yang MD [address] [place] [address] PCP - [facility]07/10/22 Ole Yang MD [address] [place] [address] PCP - GeneralInternal Medicine07/28/22 Edna Alcantara LPN [address] [place] [address] 05/06/24Team MemberRelationshipSpecialtyStart DateEnd Date Ole Yang MD [address] [place] [address] PCP - [facility]07/10/22 Ole Yang MD [address] [place] [address] PCP - GeneralInternal Medicine07/28/22 Edna Alcantara LPN [address] [place] [address] 05/06/24 Team Status: Inactive Member Role Status Dates Ole Yang II MD Attending Provider Active S tart: September 26, 2024 End: September 26, 2024Team MemberRelationshipSpecialtyStart DateEnd Date Ole Yang MD [address] [place] [address] PCP - [facility]07/10/22 Ole Yang MD [address] [place] [address] [facility] - [facility]07/28/22 Edna Alcantara LPN [address] [place] [address] 05/06/24Team MemberRelationshipSpecialtyStart DateEnd Date Oel Yang MD [address] [place] [address] PCP - [facility]07/10/22 Ole Yang MD [address] [place] [address] PCP - GeneralInternal Medicine07/28/22 Edna Alcantara LPN [address] [place] [address] 05/06/24Team MemberRelationshipSpecialtyStart DateEnd Date Ole Yang MD [address] [place] [address] PCP - [facility]07/10/22 Ole Yang MD [address] [place] [address] PCP - GeneralInternal Medicine07/28/22 Enda Alcantara LPN [address] [place] [address] 05/06/24Team MemberRelationshipSpecialtyStart DateEnd Date Ole Yang MD [address] [place] [address] PCP - [facility]07/10/22 Ole Yang MD [address] [place] [address] PCP - GeneralInternal Medicine07/28/22 Edna Alcantara LPN [address] [place] [address] 05/06/24 Team Status: Active Member Role Status Dates Ole Yang II MD Primary Care Provider Active Team Status: Active Member Role Status Dates Ole Yang II MD Primary Care Provider Active Start: October 31, 2024 Harpreet Sebastian MDEmergency ProviderActiveStart: October 31, 2024 Kamaljit Ziegler DOAdmit ProviderActiveStart: October 31, 2024 Kamaljit Lindbloom , DOAttending ProviderActiveStart: October 31, 2024 Team Status: Active Member Role Status Dates Ole Yang II MD Primary Care Provider Active Start: October 31, 2024 Daniel Leggett ProviderActiveStart: October 31, 2024 Kamaljit Ziegler DOAdmit ProviderActiveStart: October 31, 2024 Cathi Pitts ProviderActiveStart: October 31, 2024 Cathi Barber ProviderActiveStart: October 31, 2024 Tory Watts ProviderActiveStart: October 31, 2024 Jojo Hutson DOOther ProviderActiveStart: October 31, 2024 Cathi Hunt ProviderActiveStart: October 31, 2024 Jaukb Coffman , DOOther ProviderActiveStart: October 31, 2024 Eulogio Evans DOAttending ProviderActiveStart: October 31, 2024 Eulogio Evans , DOOther ProviderActiveStart: October 31, 2024 Mitzi Chan , APRNOther ProviderActiveStart: October 31, 2024 Pita Coombs [id number] ProviderActiveStart: October 31, 2024 Team Status: Active Member Role Status Dates Ole Yang II MD Primary Care Provider Active Start: November 03, 2024 Daniel Leggett ProviderActiveStart: November 03, 2024 Kamaljit Ziegler DOAdmit ProviderActiveStart: November 03, 2024 Cathi Pitts ProviderActiveStart: November 03, 2024 Cathi Barber ProviderActiveStart: November 03, 2024 Tory Watts ProviderActiveStart: November 03, 2024 Jojo Hutson DOOther ProviderActiveStart: November 03, 2024 Cathi Hunt ProviderActiveStart: November 03, 2024 Jakub Coffman DOOther ProviderActiveStart: November 03, 2024 Eulogio Evans DOOther ProviderActiveStart: November 03, 2024 Mitzi Chan , APRNOther ProviderActiveStart: November 03, 2024 Pita Coombs , XHPB-ZIA-HZdhea ProviderActiveStart: November 03, 2024 Shayna Adkins MDAttending ProviderActiveStart: November 03, 2024 Team Status: Inactive Member Role Status Dates Ole Yang II MD Primary Care Provider Active Start: November 07, 2024 End: November 07, 2024Kenneth Hernandez PhDAttending ProviderActiveStart: November 07, 2024 End: November 07, 2024Team MemberRelationshipSpecialtyStart DateEnd Date Ole Yang MD [address] [place] [address] PCP - [facility]07/10/22 Ole Yang MD [address] [place] [address] [facility] - [facility]07/28/22 Edna Alcantara LPN [address] [place] [address] 05/06/24 Team Status: Inactive Member Role Status Dates Ole Yang II MD Primary Care Provider Active Start: November 15, 2024 End: November 15, 2024Kenneth Hernandez PhDAttending ProviderActiveStart: November 15, 2024 End: November 15, 2024 Team Status: Inactive Member Role Status Dates Ole Yang II MD Primary Care Provider Active Start: November 21, 2024 End: November 21, 2024Kenneth Hernandez PhDAttending ProviderActiveStart: November 21, 2024 End: November 21, 2024Team MemberRelationshipSpecialtyStart DateEnd Date Ole Yang MD [address] [place] [address] PCP - [facility]07/10/22 Ole Yang MD [address] [place] [address] PCP - GeneralInternal Medicine07/28/22 Edna Alcantara LPN [address] [place] [address] 05/06/24Team MemberRelationshipSpecialtyStart DateEnd Date Ole Yang MD [address] [place] [address] PCP - [facility]07/10/22 Ole Yang MD [address] [place] [address] PCP - GeneralInternal Medicine07/28/22 Edna Alcantara LPN [address] [place] [address] 05/06/24Team MemberRelationshipSpecialtyStart DateEnd Date Ole Yang MD [address] [place] [address] PCP - [facility]07/10/22 Ole Yang MD [address] [place] [address] PCP - GeneralInternal Medicine07/28/22 Edna Alcantara LPN [address] [place] [address] 05/06/24Team MemberRelationshipSpecialtyStart DateEnd Date Ole Yang MD [address] [place] [address] PCP - [facility]07/10/22 Ole Yang MD [address] [place] [address] PCP - GeneralInternal Medicine07/28/22ThursdayBea LPN [address] [facility] [address] [place] [address] Licensed Practical NurseFamily Medicine Debora Saenz, RN [address] [place] [address] Licensed Practical NurseFamily Medicine Edna Alcantara LPN [address] [facility] [address] [place] [address] 05/06/24Team MemberRelationshipSpecialtyStart DateEnd Date Ole Yang MD [address] [facility] [address] [place] [address] PCP - [facility]07/10/22 Ole Yang MD [address] [facility] [address] [place] [address] PCP - GeneralInternal Medicine07/28/22 Edna Alcantara LPN [address] [facility] [address] [place] [address] 05/06/24 Goals (unrecognized section and content) Type Treatment Intervention Code Status: Full Code Goals may be documented in an alternate section FOR RECORDS PERTAINING TO PATIENTS [...] BE BASED ON THE PRIMARY CLINICAL RECORDS. [facility] [email or web address] [facility]. provides no warranty or guarantee of the accuracy or completeness of information in this document.
--- NOTE | 2024-12-16 14:00 | CA_ITS ---
Patient Name: SALINA MORENO MR#: [id number] : 1940 Exam Date: 12/16/2024 Ordering Doctor: VANESSA AMAYA ECHOCARDIOGRAM REPORT PROCEDURE: CA ECHO DOPPLER COMPLETE INDICATIONS: Dyspnea on exertion, pacemaker, COPD, hypertension, congestive heart failure COMPARISON: None. DESCRIPTION: COMPLETE ECHOCARDIOGRAM Real-time transthoracic echocardiography with 2D, M-mode, spectral and color flow Doppler performed. QUALITY: Technical quality was good. LEFT VENTRICLE: Normal chamber size. Proximal septal hypertrophy (sigmoid septum). Systolic function is normal. LV EF: Estimated left ventricular ejection fraction is 55%. DIASTOLIC: ATRIAL SEPTUM: Visually appears intact. LEFT ATRIUM: Severe dilatation. RIGHT ATRIUM: Severe dilatation. RIGHT VENTRICLE: Mild dilatation. Systolic function is normal. Pacer wire present. TRICUSPID VALVE: Normal mobility and thickness. No stenosis with mild regurgitation. Doppler studies reveal mildly (35-45) elevated right sided pressures. RVSP 44 mmHg MITRAL VALVE: Normal mobility and thickness. No evidence of mitral valve stenosis. There is no mitral annular calcification. Moderate mitral regurgitation. AORTIC VALVE: Normal trileaflet appearance. No visible sclerosis. Normal leaflet mobility. No evidence of aortic valve stenosis. No aortic regurgitation. AORTIC ROOT: Normal diameter and appearance, measuring 2.9 cm. The ascending aorta is normal in size measuring 3.3 cm. PULMONIC VALVE: Normal thickness and mobility. No stenosis. Mild regurgitation. PERICARDIUM: No evidence of pericardial effusion. IVC: Collapses with inspiration. IVC is mildly dilated (2.2 cm) PLEURA: CONCLUSION: 1. Normal left ventricular size and systolic function. Estimated LVEF is 55%. 2. Mildly dilated right ventricle with normal systolic function. 3. Severe biatrial dilatation. 4. Moderate mitral regurgitation. 5. Mild tricuspid regurgitation. 6. Mildly elevated right-sided pressures. RVSP is 44 mmHg. Adult Echocardiography Procedure Report Left Ventricle LVEDD (3.7 - 5.6 cm): 4.12 cm LVESD (2.2 - 4.0 cm): 3.68 cm LVIVS thickness (0.6 - 1.2 cm): 1.58 cm LVPW thickness (0.5 - 1.0 cm): 1.02 cm e': 0.10 m/s E - e': 11.83 LVOT Max Gradient: 1.83 mm[Hg] LVOT Area (cm2): 0.68 m/s Peak Velocity (LVOT): 0.68 m/s Mean Velocity (LVOT): 0.46 m/s LVOT Diameter 2.07 cm Left Ventricular Ejection Fraction: 55 % Left Atrium LA Volume Index (2D A2C): 68.23 ml/m2 Left Atrium Systolic Dimension: 5.66 cm Mitral Valve MV E to A Ratio: 3.90 Mitral Valve A-Wave Peak Velocity: 0.32 m/s Mitral Valve E-Wave Peak Velocity: 1.24 m/s Right Ventricle Aorta AO Root Diam: 2.90 cm Ascending Ao Diam: 3.26 cm Aortic Valve AoV Area (Peak Vicente): 1.86 cm2, 1.86 cm2 AoV Area (VTI): 2.12 cm2, 2.12 cm2 Peak Velocity(Antegrade Flow): 1.22 m/s Peak Gradient(Antegrade Flow): 5.99 mm[Hg] Mean Velocity(Antegrade Flow): 0.80 m/s Mean Gradient(Antegrade Flow): 3.00 mm[Hg] Velocity Time Integral: 22.68 cm Tricuspid Valve Peak Velocity (Regurgitant Flow): 2.99 m/s Pulmonic Valve Mean Gradient: 2.04 mm[Hg] Mean Velocity: 0.68 m/s Peak Velocity: 0.95 m/s, 0.92 m/s Peak Gradient: 3.35 mm[Hg], 3.62 mm[Hg] Right Atrium Right Atrium Systolic Pressure: 127.05 ml, 127.05 ml Dictated by: Eyal Lucas M.D. on 12/16/2024 at 18:11 Approved by: Eyal Lucas M.D. on 12/16/2024 at 18:18
== END 2024-12-16 13:43 | disposition home or self-care (01) ==
LOC: CARD 13:43
PROVIDERS: PCP Internal Medicine
DX: R06.09 Other forms of dyspnea (principal); I42.0 Dilated cardiomyopathy; I51.9 Heart disease, unspecified
CPT/HCPCS: 93306

== ENCOUNTER 2024-12-29 10:17 | Outpatient (OUT) | payer MEDICARE, OTHER, SELFPAY ==
--- OUTSIDE RECORDS SUMMARY | 2024-12-23 10:30 | XMS_ITS | Encounter Summary ---
Author Organization [facility] Address [address] [place] [address] Care Team Providers Care Gasoline Pump Installer Name Role Phone Ole Yang MD Primary Care Provider [phone] Encounter Details DateTypeDepartmentCare Team (Latest Contact Info)Aixcraaexbc44/07/2025 10:30 AM ESTAncillary Procedure [facility] [address] [place] [id number] Pre-operative cardiovascular examination, ICD in place Social History Tobacco UseTypesPacks/DayYears UsedDateSmoking Tobacco: NeverSmokeless Tobacco: NeverAlcohol UseStandard Drinks/WeekCommentsNot Currently0 (1 standard drink = 0.6 oz pure alcohol)UT Safety & EnvironmentAnswerDate RecordedFear of Current or Ex-PartnerNot on file04/09/2023Emotionally AbusedNot on file04/09/2023hysically AbusedNot on file04/09/2023Sexually AbusedNot on file04/09/2023hysically or Sexually AbusedNot on file04/09/2023CommentsUnknownSex and Gender InformationValueDate RecordedSex Assigned at WjllrNdvqgw21/23/2025 11:40 AM EDT Legal SnlMjhzzd15/29/2022 11:46 PM EDTGender TbbceacuOgzzfk61/23/2025 11:40 AM EDTSexual OrientationChoose not to jhfuehwb86/14/2025 9:44 PM EDTdocumented as of this encounter Plan of Treatment DateTypeDepartmentCare Team (Latest Contact Info)Tnvkjquvcrz01/29/2025 2:40 PM ESTOffice Visit [facility] [address] [place] [address] Eulogio Wahl, CUPOLA MAN [address] [place] [address] documented as of this encounter Procedures Procedure NamePriorityDate/TimeAssociated DiagnosisCommentsCARDIAC DEVICE CHECK CHECK - DOGBKZCrclrpa21/11/2025 9:24 AM EST Pre-operative cardiovascular examination, ICD in place documented in this encounter Results * CARDIAC DEVICE CHECK - REMOTE ALERT - ICD (12/27/2024 9:24 AM EST)Specimen (Source)Anatomical Location / LateralityCollection Method / VolumeCollection TimeReceived Time Narrative Authorizing ProviderResult TypeResult StatusPa Roshan MDCV IMPLANTABLE CARDIAC DEVICE PROCEDURESFinal ResultPerforming OrganizationAddressCity/State/ZIP Code Phone Number CPACS documented in this encounter Visit Diagnoses Diagnosis Pre-operative cardiovascular examination, ICD in place Pre-operative cardiovascular examination documented in this encounter Care Teams Team MemberRelationshipSpecialtyStart DateEnd Date Ole Yang MD [address] [facility] [address] [place] [address] PCP - General10/07/21documented as of this encounter
--- OUTSIDE RECORDS SUMMARY | 2024-12-29 10:00 | XMS_ITS | Encounter Summary ---
Author Organization [facility] Address [address] [place] [address] Care Team Providers Care Print Line Operator Name Role Phone Ole Yang MD Unavailable [phone] Ole Yang MD Primary Care Provider [phone] Edna Alcantara LPN Unavailable Reason for Visit * ReasonCommentsToenail Care Encounter Details DateTypeDepartmentCare Team (Latest Contact Info)Fhguafdbuhj91/13/2025 10:00 AM ESTProcedure Visit [facility] [address] [facility] [address] [place] [address] Kenneth Clifton, DPJaguar [address] [facility] [address] [place] [address] Pain due to onychomycosis of toenails of both feet (Primary Dx); Venous insufficiency Social History Tobacco UseTypesPacks/DayYears UsedDateSmoking Tobacco: NeverSmokeless Tobacco: Never Tobacco Cessation:Counseling Given: Yes Alcohol UseStandard Drinks/WeekCommentsNever0 (1 standard drink = 0.6 oz pure alcohol)B1300 Health LiteracyAnswerDate RecordedHow often do you need to have someone help you when you read instructions, pamphlets, or other written material from your doctor or pharmacy?Rnzyoxmit22/16/2025Humiliation, Afraid, Rape, and Kick questionnaireAnswerDate RecordedWithin the [...] relatives?Twice a week06/01/2024How often do you attend hindu or orthodoxy services?Never06/01/2024Do you belong to any clubs or organizations such as hindu groups, unions, fraternal or athletic groups, or school groups?No06/01/2024How often do you attend meetings of the clubs or organizations you belong to?Never06/01/2024re you , , , , never , or living with a partner?Pxbypmu2306/01/2024 AUDIT-CAnswerDate RecordedQ1: How often do you have [...] very hard 06/01/2024PHQ-2AnswerDate RecordedPatient Health Questionnaire-2 Score0 11/08/2024[facility] - Occupational Stress QuestionnaireAnswerDate [...] Recorded Sex Assigned at BirthNot on fileLegal RcyXlzced62/15/2023 7:05 PM EDTGender IdentityNot on fileSexual OrientationNot on filedocumented as of this encounter Last Filed Vital Signs Vital SignReadingTime TakenCommentsBlood Pressure--Pulse--Temperature-- Respiratory Jifd672602/29/2024 9:38 AM ESTOxygen Saturation--Inhaled Oxygen Concentration--Bemtjl67.7 kg (178 lb)12/29/2024 9:38 AM PFXVlxowl612.2 cm (5' 7 )12/29/2024 9:38 AM ESTBody Mass Index27.8812/29/2024 9:38 AM ESTdocumented in this encounter Progress Notes * Kenneth Sammie Clifton, DPM - 12/29/2024 10:00 AM EST Patient: Lluvia Ferraro : 1940 PCP: Ole Yang MD SUBJECTIVE This is a 84 y.o. female that presents today with a CC of elongated, thick nails. Pt states nails have been elongated and thick for many years and cause pain with ambulation in shoegear. Pt has tried previous treatment with minimal relief. Pt presents today for nail care and treatment. Pt also has history of venous stasis to b/l lower extremities Allergies: Allergies Allergen Reactions Lorazepam Hallucinations Spironolactone Other Hyperkalemia Past Medical History: Past Medical History: Diagnosis [...] ideation 11/08/2024 Toxic multinodular goiter Visual impairment Medications: Current Outpatient Medications: amLODIPine (Norvasc) 5 MG tablet, Take 5 mg by mouth Daily, Disp: , Rfl: apixaban (Eliquis) 5 MG tablet, Take 1 tablet (5 mg) by mouth in the morning and 1 tablet (5 mg) before bedtime., Disp: 200 tablet, Rfl: 3 aspirin 81 MG EC tablet, 1 (one) time each day at the same time, Disp: , Rfl: atorvastatin (Lipitor) 80 MG tablet, Take 1 tablet (80 mg) by mouth Daily, Disp: 100 tablet, Rfl: 3 calcium carbonate (Calcium 600) 600 MG tablet, Take 1 tablet (600 mg) by mouth in the morning and 1tablet (600 mg) in the evening. Take with meals., Disp: , Rfl: cholecalciferol 1000 units capsule, Take 1,000 Units by mouth in the morning and 1,000 Units beforebedtime., Disp: , Rfl: melatonin 5 MG tablet, Take 5 mg by mouth Daily, Disp: , Rfl: methIMAzole (Tapazole) 5 MG tablet, Take 5 mg by mouth Daily, Disp: , Rfl: methIMAzole (Tapazole) 5 MG tablet, Take 1 tablet (5 mg) by mouth Daily (Patient taking differently: Take 5 mg by mouth Daily Take Thursday,Thursday,,thursday), Disp: 90 tablet, Rfl: 1 metoprolol succinate XL (Toprol-XL) 50 MG 24 hr tablet, Take 1 tablet (50 mg) by mouth Daily, Disp:100 tablet, Rfl: 3 Multiple Vitamins-Minerals (Multi For Her 50+) tablet, 1 (one) time each day at the same time, Disp: , Rfl: PARoxetine (Paxil) 20 MG tablet, Take 1 tablet (20 mg) by mouth in the morning., Disp: 100 tablet, Rfl: 3 Social History: Social History [...] 0 min Stress: Stress Concern Present (06/01/2024) [place] [facility] [employer] Occupational Health - Occupational Stress Questionnaire Feeling of Stress : Rather much Social Connections: Moderately Isolated (06/01/2024) Social Connection and Isolation Panel Frequency of Communication with Friends and Family: More than three times a week Frequency of Social Gatherings with Friends and Family: Twice a week Attends Holiness Services: Never Active Member of Clubs or Organizations: No Attends Club or Organization Meetings: Never Marital Status: Intimate Partner Violence: Not At Risk (06/01/2024) Humiliation, Afraid, Rape, and Kick questionnaire Fear of Current or Ex-Partner: No Emotionally Abused: No Physically Abused: No Sexually Abused: No Housing Stability: Unknown (06/01/2024) Housing Stability Vital Sign Unable to Pay for Housing in the Last Year: No Number of Times Moved in the Last Year: Not on file Homeless in the Last Year: No ROS: [...] toes and right 1,2,3,4,5 toes ASSESSMENT 1. Pain due to onychomycosis of toenails of both feet 2. Venous insufficiency PLAN Discussed proper foot care with patient today. Debride nails in length and thickness digits 1 through 10 Visit spent with patient education on condition and treatment of condition. Pt to continue with elevation of feet while resting or NWB. Kenneth Clifton DPM documented in this encounter Plan of Treatment DateTypeDepartmentCare Team (Latest Contact Info)Jmlgguozbqj07/29/2026 10:40 AM ESTProcedure Visit [facility] [address] [facility] [address] [place] [phone] Kenneth Clifton DPM [address] [facility] [address] [place] [address] 03/22/2025 10:00 AM ESTOffice Visit [facility] [place] [facility] [address] [place] [id number] Ole Yang MD [address] [place] [address] 05/31/2025 10:30 AM EDTOffice Visit [facility] [place] [facility] [address] [place] [address] Teri Jo MD [address] [place] [address] documented as of this encounter Visit Diagnoses Diagnosis Pain due to onychomycosis of toenails of both feet- Primary Venous insufficiency Unspecified venous (peripheral) insufficiency documented in this encounter Additional Health Concerns AssessmentNoted TimePQ-9 Depression Total Score: 13006/02/2024 9:00 AM EDT documented as of this encounter Care Teams Team MemberRelationshipSpecialtyStart DateEnd Date Ole Yang MD [address] [facility] [address] [place] [address] PCP - [facility] Re[facility]07/10/22 Ole Yang MD [address] [place] [address] PCP - GeneralInternal Medicine07/28/22 Edna Alcantara LPN [address] [place] [address] 05/06/24documented as of this encounter
--- OUTSIDE RECORDS SUMMARY | 2024-12-29 10:22 | XMS_ITS | Encounter Summary ---
Author Organization [facility] Address [address] [place] [address] Care Team Providers Care Cap Parts Cutter Name Role Phone Ole Yang MD Primary Care Provider [phone] Encounter Details DateTypeDepartmentCare Team (Latest Contact Info)Lgzqpmgkdhl70/03/2025Telephone [facility] at [facility] [address] [place] [address] Ann Marie Del Valle MA Social History Tobacco UseTypesPacks/DayYears UsedDateSmoking Tobacco: NeverSmokeless Tobacco: NeverAlcohol UseStandard Drinks/WeekCommentsNot Currently0 (1 standard drink = 0.6 oz pure alcohol)UT Safety & EnvironmentAnswerDate RecordedFear of Current or Ex-PartnerNot on file04/09/2023Emotionally AbusedNot on file04/09/2023hysically AbusedNot on file04/09/2023Sexually AbusedNot on file04/09/2023hysically or Sexually AbusedNot on file04/09/2023CommentsUnknownSex and Gender InformationValueDate RecordedSex Assigned at YguslCwbaif34/23/2025 11:40 AM EDT Legal YetGbdror67/29/2022 11:46 PM EDTGender OtvbtdseNcopyz22/23/2025 11:40 AM EDTSexual OrientationChoose not to uwvwyoev03/14/2025 9:44 PM EDTdocumented as of this encounter Miscellaneous Notes * Telephone Encounter - Ann Marie Del Valle MA - 12/19/2024 3:22 PM EST Spoke to Dr. Padron office, patient is scheduled for 02/02/2025 at 1:30 documented in this encounter Plan of Treatment DateTypeDepartmentCare Team (Latest Contact Info)Ijaolchrupe78/29/2025 2:40 PM ESTOffice Visit [facility] at [facility] [address] [place] [address] Eulogio Wahl, WHEELAGE CLERK [address] [place] [address] documented as of this encounter Visit Diagnoses Not on filedocumented in this encounter Care Teams Team MemberRelationshipSpecialtyStart DateEnd Date Ole Yang MD [address] [facility] 110 [place] [address] PCP - General10/07/21documented as of this encounter
--- OUTSIDE RECORDS SUMMARY | 2024-12-29 10:22 | XMS_ITS | Encounter Summary ---
Author Organization [facility] Address [address] [place] [address] Care Team Providers Care Pickup Driver Name Role Phone Ole Yang MD Primary Care Provider [phone] Reason for Referral * Consultation (Routine) - Pending ReviewSpecialtyDiagnoses / ProceduresReferred By ContactReferred To ContactNephrology Diagnoses Abnormal laboratory test Procedures CT OFFICE/OUTPATIENT NEW HIGH MDM 60 MINUTES Eulogio Wahl CNP [address] [place] [address] Phone: tel: fax: Referral IDStatusReasonStart DateExpiration DateVisits RequestedVisits [id number] Review Specialty Services Required Encounter Details DateTypeDepartmentCare Team (Latest Contact Info)Idrlknjtngu98/29/2025Orders Only [facility] Heart at [facility] [address] [place] [address] Ann Marie Del Valle MA Abnormal laboratory test (Primary Dx) Social History Tobacco UseTypesPacks/DayYears UsedDateSmoking Tobacco: NeverSmokeless Tobacco: NeverAlcohol UseStandard Drinks/WeekCommentsNot Currently0 (1 standard drink = 0.6 oz pure alcohol)UT Safety & EnvironmentAnswerDate RecordedFear of Current or Ex-PartnerNot on file04/09/2023Emotionally AbusedNot on file04/09/2023hysically AbusedNot on file04/09/2023Sexually AbusedNot on file04/09/2023hysically or Sexually AbusedNot on file04/09/2023CommentsUnknownSex and Gender InformationValueDate RecordedSex Assigned at InkvtPlwwmh08/23/2025 11:40 AM EDT Legal LwsHbszsc24/29/2022 11:46 PM EDTGender CsbetgnwIicbsr23/23/2025 11:40 AM EDTSexual OrientationChoose not to scystuye04/14/2025 9:44 PM EDTdocumented as of this encounter Plan of Treatment DateTypeDepartmentCare Team (Latest Contact Info)Idwdbihosop85/29/2025 2:40 PM ESTOffice Visit [facility] at [facility] [address] [place] [address] Eulogio Wahl, COMMUNICATIONS EDITOR [address] [place] [address] NameTypePriorityAssociated DiagnosesOrder ScheduleAmbulatory referral to NephrologyOutpatient ReferralRoutine Abnormal laboratory test Expected: 12/14/2024 (Approximate), Expires: 06/14/2025documented as of this encounter Visit Diagnoses Diagnosis Abnormal laboratory test- Primary Other abnormal clinical finding documented in this encounter Care Teams Team MemberRelationshipSpecialtyStart DateEnd Date Ole Yang MD [address] [facility] 110 [place] [address] PCP - General10/07/21documented as of this encounter
--- OUTSIDE RECORDS SUMMARY | 2024-12-29 10:22 | XMS_ITS | Encounter Summary ---
Author Organization [facility] Address [address] [place] [address] Care Team Providers Care Business Objects Analyst Name Role Phone Ole Yang MD Primary Care Provider [phone] Encounter Details DateTypeDepartmentCare Team (Latest Contact Info)Zsxftuhptlu15/03/2025Telephone [facility] at [facility] [address] [place] [address] Ann Marie Del Valle MA Social History Tobacco UseTypesPacks/DayYears UsedDateSmoking Tobacco: NeverSmokeless Tobacco: NeverAlcohol UseStandard Drinks/WeekCommentsNot Currently0 (1 standard drink = 0.6 oz pure alcohol)UT Safety & EnvironmentAnswerDate RecordedFear of Current or Ex-PartnerNot on file04/09/2023Emotionally AbusedNot on file04/09/2023hysically AbusedNot on file04/09/2023Sexually AbusedNot on file04/09/2023hysically or Sexually AbusedNot on file04/09/2023CommentsUnknownSex and Gender InformationValueDate RecordedSex Assigned at KlzauFbarhr10/23/2025 11:40 AM EDT Legal LawYzjsjt84/29/2022 11:46 PM EDTGender NvcujtcfAudcnf16/23/2025 11:40 AM EDTSexual OrientationChoose not to /14/2025 9:44 PM EDTdocumented as of this encounter Plan of Treatment DateTypeDepartmentCare Team (Latest Contact Info)Imitazbjynq76/29/2025 2:40 PM ESTOffice Visit [facility] at [facility] [address] [place] [address] Eulogio Wahl, SUBSCRIPTION AGENT [address] [place] [address] documented as of this encounter Visit Diagnoses Not on filedocumented in this encounter Care Teams Team MemberRelationshipSpecialtyStart DateEnd Date Ole Yang MD [address] [place] [address] PCP - General10/07/21documented as of this encounter
--- OUTSIDE RECORDS SUMMARY | 2024-12-29 10:22 | XMS_ITS | Clinical Summary ---
Author Organization [facility] [facility] Address [id number] [address] [place] [address] Care Team Providers Care Biological Inspector Name Role Phone Ole Yang MD Primary Care Provider [phone] Allergies No known active allergies Medications MedicationSigDispense QuantityRefillsLast FilledStart DateEnd DateStatus cholecalciferol, vitamin D3, 10 mcg (400 unit) capsule 1 (one) time each day at the same time.Active multivitamin,nq-uqrv-Th-FA-min 27-0.4 mg tablet 1 (one) time each day at the same time.Active ELIQUIS 5 mg tablet 05/28/2022ctive aspirin 81 mg daily.Active atorvastatin (LIPITOR) 80 mg tablet 08/03/2022ctive bumetanide (BUMEX) 1 mg tablet as needed.Active calcium carbonate-vitamin D3 600 mg(1,500mg) -200 units per tablet 1 (one) time each day at the same time.Active LORazepam (ATIVAN) 0.5 mg tablet lorazepam 0.5 mg ihlrkc9408/21/2021ctive lovastatin (MEVACOR) 40 mg tablet lovastatin 40 [...] Problems No known active problems Encounters DateTypeDepartmentCare IgilHtxuqkfwdvu36/03/2025Lab Requisition [facility] [address] [place] [address] Ole Yang MD Altered mental status, unspecifiedfrom Last 3 Months Family History Medical HistoryRelationNameCommentsCataractsMotherRelationNameStatusComments Mother Social History Tobacco UseTypesPacks/DayYears UsedDateSmoking Tobacco: NeverSmokeless Tobacco: Never Tobacco Cessation:Counseling Given: Not Answered CommentsUnknownSex and Gender InformationValueDate RecordedSex Assigned at BirthNot on fileLegal BdyEjvwjh82/15/2023 10:11 AM EDTGender IdentityNot on fileSexual OrientationNot on file Last Filed Vital Signs Vital SignReadingTime TakenCommentsBlood Foudjplw100/7410 9:33 AM EDT Cinak753612/03/2022 9:33 AM EDTTemperature--Respiratory Knkf0342 2:11 PM EDTOxygen Xfbdevrsuw70%09/11/2022 2:11 PM EDTInhaled Oxygen Concentration-- Rnqfwo16.7 kg (178 lb)12/03/2022 9:33 AM NNLDvyqls741.2 cm (5' 7 )12/03/2022 9:33 AM EDTBody Mass Index27.8812/03/2022 9:33 AM EDT Plan of Treatment Health MaintenanceDue DateLast DoneCommentsDepression Negzyirdz15/01/1955 DTaP,Tdap and Td Vaccines (1 - Tdap)1961Fall Risk Scqpivonz51/01/2008 Tobacco Awztqsqon52/12/636731/4COVID-19 Vaccine ( season) /, 12/10/2021, 02/03/2021, Additional history existsInfluenza Fmhwysb03/12/2022, 12/10/2021, 01/17/2021, Additional history exists RSV ( or age 60+ yrs)Njafakwtc25/25/2023Zoster (Shingles) Vaccine Rkeutumic96/16/2023, 04/16/2022 Medical Devices ImplantedTypeAreaManufacturerDevice IdentifierShelf Expiration DateModel / Serial / LotIcdICDBoston [id number] / X4CRT / Procedures Procedure NamePriorityDate/TimeAssociated DiagnosisCommentsURINALYSISRoutine 10/19/2024 5:00 PM EDT Altered mental status, unspecified from Last 3 Months Results * (ABNORMAL) Urinalysis (10/19/2024 5:00 PM EDT)ComponentValueRef RangeTest MethodAnalysis TimePerformed AtPathologist SignatureCOLORYellowYellow 10/19/2024 7:52 PM EDTPMAIN CAMPUS MEDICAL CENTERTURBIDITYClearClear 10/19/2024 7:52 PM EDTPCHILDREN'S HOSPITAL FOR REHABILITATIONPECIFIC GRAVITY1.015 1.003 - 1.66796 7:52 PM EDTPMAIN CAMPUS MEDICAL CENTERNITRITE RmwtgfxyLikvlgzc10/03/2025 7:52 PM EDTPMAIN CAMPUS [facility]ENTER PH,URINE6.05.0 - 8.509 7:52 PM EDTPMAIN CAMPUS [facility]ICAL [facility]ENTER LEUKOCYTE TEDZOVLKBzgllffoPddxmoqx89/03/2025 7:52 PM EDTPMAIN CAMPUS MEDICAL CENTERPROTEINNegativeNegative10/19/2024 7:52 PM EDTPMAIN CAMPUS MEDICAL CENTERKETONES (URINE)Trace(A)Mzfeotqu81/03/2025 7:52 PM EDT [facility]UROBILINOGEN1.0 eu/dL0.2 eu/dL, 1.0 eu/dL 10/19/2024 7:52 PM EDTPMAIN CAMPUS MEDICAL CENTERBILIRUBIN (URINE) QiyapmtwIobsylpa13/03/2025 7:52 PM EDTP[facility]ENTER BLOOD/XMZFmspqxmdWopohfmk29/03/2025 7:52 PM EDTPMAIN CAMPUS MEDICAL CENTERGLUCOSE (URINE)NegativeNegative, 250 mg/dL10/19/2024 7:52 PM EDT [facility]ENTERpecimen (Source)Anatomical Location / LateralityCollection Method / VolumeCollection TimeReceived TimeUrine (Other) 10/19/2024 5:00 PM EDT10/19/2024 7:24 PM EDT Narrative Authorizing ProviderResult TypeResult StatusDaniziggy MONTALVO ORDERABLES Final ResultPerforming OrganizationAddressCity/State/ZIP CodePhone Number [facility] [address] [place] [address], from Last 3 Months Insurance Care Teams Team MemberRelationshipSpecialtyStart DateEnd Date Ole Yang MD [address] [facility] 110 [place] [address] PCP - GeneralInternal Medicine08/13/22
--- OUTSIDE RECORDS SUMMARY | 2024-12-29 10:23 | XMS_ITS | Encounter Summary ---
Author Organization [facility] Address [address] [place] [address] Care Team Providers Care Sanitation Worker Name Role Phone Ole Yang MD Unavailable [phone] Oel Yang MD Primary Care Provider [phone] Edna Alcantara LPN Unavailable Encounter Details DateTypeDepartmentCare Team (Latest Contact Info)Nfqjnchyduc32/12/2025Travel Social History Tobacco UseTypesPacks/DayYears UsedDateSmoking Tobacco: NeverSmokeless Tobacco: NeverAlcohol UseStandard Drinks/WeekCommentsNever0 (1 standard drink = 0.6 oz pure alcohol)B1300 Health LiteracyAnswerDate RecordedHow often do you need to have someone help you when you read instructions, pamphlets, or other written material from your doctor or pharmacy?Skiqyaxxo62/16/2025Humiliation, Afraid, Rape, and Kick questionnaireAnswerDate RecordedWithin the [...] relatives?Twice a week06/01/2024How often do you attend worship or catholic services?Never06/01/2024Do you belong to any clubs or organizations such as worship groups, unions, fraternal or athletic groups, or school groups?No06/01/2024How often do you attend meetings of the clubs or organizations you belong to?Never06/01/2024re you , , , , never , or living with a partner?Zjzrscm2506/01/2024 AUDIT-CAnswerDate RecordedQ1: How often do you have [...] very hard 06/01/2024PHQ-2AnswerDate RecordedPatient Health Questionnaire-2 Score0 11/08/2024[facility] [place] [facility] - Occupational Stress QuestionnaireAnswerDate [...] Recorded Sex Assigned at BirthNot on fileLegal MxgFwelvu31/15/2023 7:05 PM EDTGender IdentityNot on fileSexual OrientationNot on filedocumented as of this encounter Plan of Treatment DateTypeDepartmentCare Team (Latest Contact Info)Trmqgguccqj66/29/2026 10:40 AM ESTProcedure Visit [facility] [address] [facility] [address] [place] [address] Kenneth Clifton DPM 3[address] [facility] [address] [place] [address] 03/22/2025 10:00 AM ESTOffice Visit [facility] [place] [address] [facility] [address] [place] [address] Ole Yang MD [address] [facility] [address] [place], [place] [address] 05/31/2025 10:30 AM EDTOffice Visit [facility] [place] [facility] [address] [place] [address] Teri Jo MD [address] [place] [address] documented as of this encounter Visit Diagnoses Not on filedocumented in this encounter Additional Health Concerns AssessmentNoted TimePHQ-9 Depression Total Score: 13006/02/2024 9:00 AM EDT documented as of this encounter Care Teams Team MemberRelationshipSpecialtyStart DateEnd Ole Yang MD [address] [facility] [address] [place] [address] PCP - ACO [facility]07/10/22 Ole Yang MD [address] [facility] [address] [place] [address] PCP - GeneralInternal Medicine07/28/22 Edna Alcantara LPN [address] [facility] [address] [place] [address] 05/06/24documented as of this encounter
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
--- OUTSIDE RECORDS SUMMARY | 2024-12-29 10:23 | XMS_ITS | Encounter Summary ---
Author Organization [facility] Address [address] [place] [address] Care Team Providers [employer] Workflow Consultant Name Role Phone Ole Yang MD Unavailable [phone] Ole Yang MD Primary Care Provider [phone] Edna Alcantara LPN Unavailable Encounter Details DateTypeDepartmentCare Team (Latest Contact Info)Wvoknumlpeo29/13/2025Travel Social History Tobacco UseTypesPacks/DayYears UsedDateSmoking Tobacco: NeverSmokeless Tobacco: NeverAlcohol UseStandard Drinks/WeekCommentsNever0 (1 standard drink = 0.6 oz pure alcohol)B1300 Health LiteracyAnswerDate RecordedHow often do you need to have someone help you when you read instructions, pamphlets, or other written material from your doctor or pharmacy?Aisozvpri71/16/2025Humiliation, Afraid, Rape, and Kick questionnaireAnswerDate RecordedWithin the [...] week06/01/2024How often do you attend rastafari or baptism services?Never06/01/2024Do you belong to any clubs or organizations such as rastafari groups, unions, fraternal or athletic groups, or school groups?No06/01/2024How often do you attend meetings of the clubs or organizations you belong to?Never06/01/2024re you , , , , never , or living with a partner?Mqwjhto5606/01/2024 AUDIT-CAnswerDate RecordedQ1: How often do you have [...] very hard 06/01/2024PHQ-2AnswerDate RecordedPatient Health Questionnaire-2 Score0 11/08/2024[facility] [place] [facility] - Occupational Stress QuestionnaireAnswerDate [...] were you homeless or living in a residential (including now)? No06/01/2024CommentsUnknownSex and Gender InformationValueDate Recorded Sex Assigned at BirthNot on fileLegal BdbGpnpqm89/15/2023 7:05 PM EDTGender IdentityNot on fileSexual OrientationNot on filedocumented as of this encounter Plan of Treatment DateTypeDepartmentCare Team (Latest Contact Info)Jxcmnfhzmxe91/29/2026 10:40 AM ESTProcedure Visit [facility] [address] [facility] [address] [place] [address] Kenneth Clifton DPM [address] [facility] [place], [place] [address] [place] [address] 03/22/2025 10:00 AM ESTOffice Visit [facility] [address] [facility] [address] [place] [address] Ole Yang MD [address] [facility] [address] [place], [place] [id number] 05/31/2025 10:30 AM EDTOffice Visit [facility] [address] [place] [address] Teri Jo MD [address] [place] [address] documented as of this encounter Visit Diagnoses Not on filedocumented in this encounter Additional Health Concerns AssessmentNoted TimePHQ-9 Depression Total Score: 13006/02/2024 9:00 AM EDT documented as of this encounter Care Teams Team MemberRelationshipSpecialtyStart DateEnd Ole Yang MD [address] [facility] [address] [place] [address] PCP - [facility]07/10/22 Ole Yang MD [address] [facility] [address] [place] [address] PCP - GeneralInternal Medicine07/28/22 Edna Alcantara LPN [address] [facility] [address] [place] [address] 05/06/24documented as of this encounter
--- OUTSIDE RECORDS SUMMARY | 2024-12-29 10:23 | XMS_ITS | Clinical Summary ---
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 Name Role Phone Ole Yang MD Unavailable [phone] Ole Yang MD Primary Care Provider [phone] Edna Alcantara LPN Unavailable Allergies Active AllergyReactionsCriticalityNoted DateCommentsLorazepamHallucinationsHigh 11/08/20245160RfzbiewylwcqhjLokniPuypvx04/23/2025 Hyperkalemia Medications MedicationSigDispense QuantityRefillsLast FilledStart DateEnd DateStatus [...] atorvastatin (Lipitor) 80 MG tablet Indications:Atherosclerosis of [place] coronary artery of [place] heart without angina pectorisTake 1 tablet (80 [...] (600 mg) in the evening. 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 hkqebkuwvbgnafm08/27/2023ge- related osteoporosis without current pathological tnjsvada38/12/2023nxiety 07/28/2022rthritis of right shoulder bemkig4107/28/2022hronic atrial fibrillation, mmpoblgrjko79/12/2023hronic combined systolic (congestive) and diastolic (congestive) heart eqmzpco1007/28/2022hronic obstructive pulmonary disease, pmtaszpdroa39/12/2023hronic systolic dysfunction of left ventricle 07/28/20222990Dkkfcvwf42/12/2023Elevated liver bnekvow1807/28/2022Frequent falls 07/28/20229542Kiddqtjntnwkwuc04/12/2023ICD (implantable cardioverter-defibrillator) in place07/28/2022Impaired fasting hrpnxjs0407/28/2022Joint derangement of shoulder unjxkg5607/28/2022Mild episode of recurrent major depressive disorder 07/28/2022Non-rheumatic mitral townqhzhuxqji24/12/2023Overweight (BMI 25.0-29.9) 07/28/2022rimary dszwycaebqssno47/12/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 fetqsxl2707/28/2022 Rotator cuff syndrome of right xotfmmft74/12/2023Status post biventricular cardiac pacemaker /13/2021anlobular wgogzykrp29/01/2021 Overview (08/26/2023): Last Assessment & Plan: If cardiac studies are without any acute concerns she may need to F/U with pulmonary for evaluationof CLAIRE History of stroke without residual ajqbtydx04/08/2021Mild intermittent asthma 09/12/2016Coronary artery disease involving [place] coronary artery of [place] heart without angina kutqsmer29/08/2016Benign hypertensive heart disease with heart mhlnndc8409/24/2015 Resolved Problems ProblemNoted DateDiagnosed DateResolved DateSuicidal aiiqenew02/23/2025 11/08/2024Homicidal ypyotbkgx97KI (acute kidney injury) 5Acute epujrsznghqr29ute dehydration bnormal results of pulmonary function diyiuwl6107/28/2022 07/30/2022oronary arteriosclerosis in [place] erqppk76ardiac pacemaker in situTear of right rotator cuff09/12/2016 06/02/2024therosclerosis of coronary artery without angina cavmcyxc62/20/2017 02/25/2024Systolic heart essorrl03Inguinal pain10/04/2015 05/27/2023erebrovascular timtbhoq83Hematoma of groin Encounters DateTypeDepartmentCare DzuuQnkhkkalsci44/13/2025 10:00 AM ESTProcedure Visit [facility] [address] [place] [address] Kenneth Clifton DPM Pain due to onychomycosis of toenails of both feet (Primary Dx); Venous ackzplgkclmvy98/13/2025amboo flowsheet [facility] [address] [place] [address] Kenneth Clifton DPM 12/29/20241629Gwwcvz96/12/8386Xofydb69/05/2025Telephone [facility] [address] [place] [address] Abbi Wayne NP 12/16/2024linisync Result Encounter [facility] External Department Unsolicited Provider, Generic External Data 12/14/2024 9:00 AM EDTOffice Visit [facility] [address] [place] [address] Ole Yang MD Type 2 diabetes mellitus with other specified complication, without long-term current use of insulin (HCC) (Primary Dx); Chronic combined systolic (congestive) and diastolic (congestive) heart failure (HCC); Coronary artery disease involving [place] coronary artery of [place] heart without angina pectoris; Hyperthyroidism; Pure hypercholesterolemia; Chronic kidney disease, stage 3b ([facility]-HCC)12/14/2024amboo flowsheet [facility] [address] [place] [address] Ole Yang MD 12/14/20242451Hjdwwr85/28/2025bstract [facility] [address] [place] [address] Ole Yang MD 12/12/2024bstract [facility] [address] [place] [address] Ole Yang MD 12/12/2024bstract [facility] [address] [place] [address] Ole Yang MD 12/08/2024bstract [facility] [address] [place] [address] Ole Yang MD 12/07/2024Telephone [facility] [address] [place] [address] Ole Yang MD 12/07/2024bstract [facility] [address] [place] [address] Ole Yang MD 11/30/2024 10:00 AM EDTOffice Visit [facility] [place] [facility] [address] [place] [address] Teri Jo MD Hyperthyroidism (Primary Dx); Multinodular goiter; Longstanding persistent atrial fibrillation (HCC)11/30/2024Patient Outreach [facility] [address] 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 [address] Edna Alcantara LPN 11/22/2024bstract [facility] [place] [address] [place] [address] Ole Yang MD 11/22/2024Orders Only [facility] [place] [facility] [address] [place] [address] Teri Jo MD 11/21/2024Results Follow-Up [facility] [address] [place] [address] Dipti Wolf PA Basic metabolic panel11/19/2024Telephone [facility] [address] [place] [address] Ole Yang MD 11/17/2024bstract [facility] [address] [place] [address] Ole Yang MD 11/17/2024bstract [facility] [address] [place] [address] Ole Yang MD 11/16/2024Patient Outreach [facility] [address] [place] [address] Edna Alcantara LPN 11/16/2024bstract [facility] [address] [place] [address] Ole Yang MD 11/10/2024bstract [facility] [address] [place] [address] Ole Yang MD 11/10/2024Patient Outreach [facility] [address] [place] [address] Edna Alcantara LPN 11/10/2024Patient Outreach [facility] [address] [place] [address] Edna Alcantara LPN 11/09/2024bstract [facility] [address] [facility] [address] [place] [address] Ole Yang MD 11/09/2024bstract [facility] [address] [facility] [address] [place] [address] Ole Yang MD 11/08/2024 3:00 PM EDTOffice Visit [facility] [address] [facility] [address] [place] [address] Dipti Wolf PA 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); Panlobular emphysema (HCC); Frequent falls; History of stroke without residual deficits; Supplemental oxygen dependent; Age-related osteoporosis without current pathological fracture ; Hyperkalemia; Impaired fasting glucose; Chronic kidney disease, stage 3b (CMS-HCC); Essential rqltibqdxtaw35/23/2025amboo flowsheet [facility] [address] [place] [address] Dipti Wolf PA 11/08/20248329Pkluup19/19/2025Patient Outreach [facility] [address] [place] [address] Edna Alcantara, IMMIGRATION INVESTIGATOR 11/04/2024bstract [facility] [address] [place] [address] Ole Yang MD 11/03/2024bstract [facility] [address] [place] [address] Ole Yang MD 11/02/2024bstract [facility] [address] [place] [address] Oel Yang MD 11/02/2024bstract [facility] [address] [place] [address] Ole Yang MD 11/01/2024bstract [facility] [address] [place] [address] Ole Yang MD 11/01/2024bstract [facility] [address] [place] [address] Ole Yang MD 11/01/2024bstract [facility] [address] [place] [address] Ole Yang MD 11/01/2024bstract [facility] [address] [place] [address] Ole Yang MD 10/31/2024 1:30 PM EDTOffice Visit [facility] [address] [place] [address] Ole Yang MD Mild cognitive impairment (Primary Dx); Major depressive disorder, remission status unspecified, unspecified whether recurrent ; Chronic combined systolic (congestive) and diastolic (congestive) heart failure (HCC); Memory changes; Anxiety; Right sided sciatica; Impaired gait and /15/2025bstract [facility] [address] [place] [address] Ole Yang MD 10/31/2024amboo flowsheet [facility] [address] [place] [address] Ole Yang MD 10/31/20243944Gvwltz32/11/2025Telephone [facility] [address] [place] [address] Ole Yang MD 10/26/2024Patient Outreach [facility] [address] [place] [address] Edna Alcantara, [facility] 10/26/2024bstract [facility] [address] [place] [address] Ole Yang MD 10/25/2024bstract [facility] [address] [place] [address] Ole Yang MD 10/24/2024bstract [facility] [address] [place] [address] Edna Alcantara, IMMIGRATION INVESTIGATOR 10/24/2024Patient Outreach [facility] [address] [place] [address] Edna Alcantara, IMMIGRATION INVESTIGATOR 10/24/2024Patient Outreach [facility] [address] [place] [address] Edna Alcantara, [facility] 10/20/2024Patient Outreach [facility] [address] [place] [address] Edna Alcantara, IMMIGRATION INVESTIGATOR 10/20/2024bstract [facility] [address] [place] [address] Ole Yang MD 10/20/2024bstract [facility] [place] [address] [facility] [address] [place] [address] Ole Yang MD 10/19/2024Telephone [facility] [place] [address] [facility] [address] [place] [address] Ole Yang MD 10/19/2024linisync Result Encounter [facility] External Department Unsolicited Jazmyn Baum, GLENNY 10/18/2024Patient Outreach [facility] [address] [place] [address] Edna Alcantara LPN 10/14/2024Patient Outreach [facility] [address] [place] [address] Edan Alcantara IMMIGRATION INVESTIGATOR 10/13/2024 10:30 AM EDTOffice Visit [facility] [place] [address] [facility] [address] [place] [address] Jazmyn Baum, LEVERMAN Dementia with behavioral disturbance (HCC) (Primary Dx); Age-related osteoporosis without current pathological fracture ; Fatigue, unspecified type; Anxiety; Right sided sciatica; Chronic respiratory failure, unspecified whether with hypoxia or hypercapnia (HCC); Chronic respiratory failure with hypoxia (HCC)10/13/2024 9:30 AM EDTOffice Visit [facility] [address] [facility] [address] [place] [address] Kenneth Clifton DPM Venous insufficiency (Primary Dx); Deformity of toenail; Pain due to onychomycosis of toenails of both feet10/13/2024amboo flowsheet [facility] [address] [facility] [address] [place] [address] Kenneth Clifton DPM 10/13/20247096Chyiqv03/27/2025bstract [facility] [address] [facility] [address] [place] [address] Ole Yang MD 10/10/2024Patient Outreach [facility] [address] [place] [address] QuintonEdnaJUAN 10/09/20241142Afgzek80/15/2025bstract [facility] [address] [facility] [address] [place] [address] Ole Yang MD 09/29/2024[facility]phone [facility] [address] [facility] [address] [place] [address] Dipti Wolf PA from Last 3 Months Immunizations ImmunizationAdministration DatesNext DueABRYSVO - Respiratory syncytial virus (RSV), vaccine, bivalent, protein subunit RSV prefusion F, diluent reconstituted, 0.5 mL, PF12/10/2022Influenza, High Dose Seasonal, Preservative Free12/10/2021,01/17/2021Influenza, High-dose Seasonal, Quadrivalent, Preservative Free11/26/2023,12/02/2017,12/11/2016Influenza, Seasonal, Quadrivalent, Rnvpiqhlcc21/11/2023Influenza, trivalent, xltgvanccb17/24/2020, 11/25/2018Moderna SARS-CoV-2 50mcg/0.5mL Rhwztww7012/10/2021neumococcal Conjugate PCV 1305Pneumococcal Polysaccharide YYRI0650/09/2019,08/17/2007 SARS-COV-2 (COVID-19) vaccine, mRNA, spike protein, LNP, PF, robert-sucrose, 30 mcg/0.3 mL12/10/2023,01/01/2023Zoster, Qfcxijfbali19/16/2023,04/16/2022 Family History Medical HistoryRelationNameCommentsCancerFatherHypertensionFatherCancerMother HypertensionMotherMental illnessMotherRelationNameStatusCommentsBrother1 alive, 1 decFatherDeceasedMotherDeceasedSisterx 3AliveSonx 1Alive Social History Tobacco UseTypesPacks/DayYears UsedDateSmoking Tobacco: NeverSmokeless Tobacco: Never Tobacco Cessation:Counseling Given: Yes Alcohol UseStandard Drinks/WeekCommentsNever0 (1 standard drink = 0.6 oz pure alcohol)B1300 Health LiteracyAnswerDate RecordedHow often do you need to have someone help you when you read instructions, pamphlets, or other written material from your doctor or pharmacy?Klsfmbuef67/16/2025Humiliation, Afraid, Rape, and Kick questionnaireAnswerDate RecordedWithin the [...] relatives?Twice a week06/01/2024How often do you attend moravian or baptism services?Never06/01/2024Do you belong to any clubs or organizations such as moravian groups, unions, fraternal or athletic groups, or school groups?No06/01/2024How often do you attend meetings of the clubs or organizations you belong to?Never06/01/2024re you , , , , never , or living with a partner?Dihwaum0306/01/2024 AUDIT-CAnswerDate RecordedQ1: How often do you have [...] very hard 06/01/2024PHQ-2AnswerDate RecordedPatient Health Questionnaire-2 Score0 11/08/2024[facility] - Occupational Stress QuestionnaireAnswerDate [...] were you homeless or living in a chcf (including now)? No06/01/2024CommentsUnknownSex and Gender InformationValueDate Recorded Sex Assigned at BirthNot on fileLegal NsdUzwugb43/15/2023 7:05 PM EDTGender IdentityNot on fileSexual OrientationNot on file Last Filed Vital Signs Vital SignReadingTime TakenCommentsBlood Xyirtcmw538/7610 8:58 AM EDT Xeklm9137 8:58 AM DCVSjchsgvvbnv98.2 ??C (100.8 ??F)11/28/2024 2:25 PM EDTRespiratory Poht611602/29/2024 9:38 AM ESTOxygen Nczlluartt87%12/14/2024 8:58 AM EDTInhaled Oxygen Concentration--Tcwukg31.7 kg (178 lb)12/29/2024 9:38 AM EST Ushwug901.2 cm (5' 7 )12/29/2024 9:38 AM ESTBody Mass Index27.8812/29/2024 9:38 AM EST Plan of Treatment DateTypeDepartmentCare Team (Latest Contact Info)Lmuervklznu53/29/2026 10:40 AM ESTProcedure Visit [facility] [address] [facility] [address] [place] [address] Kenneth Clifton, DPM [address] [facility] [address] [place] [address] 03/22/2025 10:00 AM ESTOffice Visit [facility] [place] [address] [facility] [address] [place] [address] Ole Yang MD [address] [facility] [address] [place] [address] 05/31/2025 10:30 AM EDTOffice Visit [facility] [place] [facility] [address] [place] [address] Teri [place] MD [address] [place] [address] Health MaintenanceDue DateLast DoneCommentsDiabetes: Retinopathy Screening 3Diabetes: Urine Protein Wcncgiheb85/01/1962COVID-19 Vaccine ( season), 01/01/2023, 12/10/2021, Additional history existsDiabetes: Hemoglobin A1C61, 06/06/2024Pneumococcal Vaccine: 65+ IqhklCgezihkup50/08/2020, 06/25/2018, 08/17/2007Influenza Vaccine Xukpufhyb36/23/2025, 11/26/2023, 11/26/2022, Additional history exists Procedures Procedure NamePriorityDate/TimeAssociated DiagnosisCommentsCA ECHO DOPPLER MPMYAAWT94/31/2025 6:19 PM EDT POCT GLYCATED HEMOGLOBIN, OXEZFKtpgbuu51/29/2025 10:19 AM EDT Type 2 diabetes mellitus with other specified complication, without long-term current use of insulin (HCC) CJSWrgyzwa36/07/2025 8:24 AM EDTT4, BOFZIzkzuyw16/07/2025 8:24 AM EDTT3, FREE Yrhsrzr9911/22/2024 8:24 AM EDTBASIC METABOLIC RHTJKDimexph86/06/2025 8:03 AM EDT Hyperkalemia Chronic kidney disease, stage 3b (CMS-HCC) URINALYSIS, MANUAL YSKEOiladcz76/03/2025 5:00 PM EDT [facility] CMP (CMP) (FOR REMOTE [facility] USE)Xbgvqzp0310/19/2024 8:25 AM EDT ALL CBC WITH AUTO HLLHYsgtoaf23/03/2025 8:25 AM EDT from Last 3 Months Results * CA ECHO DOPPLER COMPLETE (12/16/2024 6:19 PM EDT)Anatomical RegionLaterality ModalityOtherSpecimen (Source)Anatomical Location / LateralityCollection Method / VolumeCollection TimeReceived Time12/16/2024 6:19 PM EDT Narrative 12/16/2024 6:20 PM EDT [facility] ?[address] ? [place] [address] ? Cardiology Report ? Signed ? Patient: TIFFANIE,LLUVIA L ? MR#: [id number] ?? : 1940 ?Acct:[id number] ?? Age/Sex: 84 / F ?ADM Date: 10/31/25 ?? Loc: CARD ? Attending Dr: Eulogio Vish LEVERMAN ? Ordering Physician: Vish,Eulogio LEVERMAN ?? Date of Service: 12/16/24 ?? Procedure(s): CA echo doppler complete ?? Accession Number(s): [id number] ? cc: OLE YANG ; Eulogio Amaya NP ? Patient Name: ? LLUVIA MORENO ? MR#: [id number] ? : 1940 ? Exam Date: 12/16/2024 ?? Ordering Doctor: EULOGIO AMAYA ? ECHOCARDIOGRAM REPORT ? PROCEDURE: ? CA ECHO DOPPLER COMPLETE ? INDICATIONS: ? Dyspnea on exertion, pacemaker, COPD, hypertension, ?? congestive heart failure ? COMPARISON: ? None. ? DESCRIPTION: ? COMPLETE ECHOCARDIOGRAM Real-time transthoracic ?? echocardiography with 2D, M-mode, spectral and color flow Doppler performed. ? QUALITY: ? Technical quality was good. ? LEFT VENTRICLE: ? Normal chamber size. Proximal septal hypertrophy (sigmoid ?? septum). ??Systolic function is normal. ? LV EF: ? Estimated left ventricular ejection fraction is 55%. ?? DIASTOLIC: ? ATRIAL SEPTUM: ? Visually appears intact. ?? LEFT ATRIUM: ? Severe dilatation. ?? RIGHT ATRIUM: ? Severe dilatation. ?? RIGHT VENTRICLE: ? Mild dilatation. ??Systolic function is normal. ?? Pacer ?? wire present. ?? TRICUSPID VALVE: ? Normal mobility and thickness. No stenosis with mild ?? regurgitation. Doppler studies reveal mildly (35-45) elevated right sided ?? pressures. RVSP 44 mmHg ? MITRAL VALVE: ? Normal mobility and thickness. ?? No evidence of mitral valve ?? stenosis. ??There is no mitral annular calcification. Moderate mitral ?? regurgitation. ? AORTIC VALVE: ? Normal trileaflet appearance. No visible sclerosis. ??Normal ?? leaflet mobility. ??No evidence of aortic valve stenosis. No aortic ?? regurgitation. ? AORTIC ROOT: ? Normal diameter and appearance, measuring 2.9 cm. ??The ?? ascending aorta is normal in size measuring 3.3 cm. ? PULMONIC VALVE: ? Normal thickness and mobility. No stenosis. Mild ?? regurgitation. ? PERICARDIUM: ? No evidence of pericardial effusion. ? IVC: ? Collapses with inspiration. IVC is mildly dilated (2.2 cm) ? PLEURA: ? CONCLUSION: ? 1. Normal left ventricular size and systolic function. ??Estimated LVEF is 55%. ?? 2. Mildly dilated right ventricle with normal systolic function. ?? 3. Severe biatrial dilatation. ?? 4. Moderate mitral regurgitation. ?? 5. Mild tricuspid regurgitation. ?? 6. Mildly elevated right-sided pressures. ??RVSP is 44 mmHg. ? Adult Echocardiography Procedure Report ?? Left Ventricle ?? LVEDD (3.7 - 5.6 cm): ? 4.12 cm ?? LVESD (2.2 - 4.0 cm): ? 3.68 cm ?? LVIVS thickness (0.6 - 1.2 cm): ? 1.58 cm ?? LVPW thickness (0.5 - 1.0 cm): ? 1.02 cm ?? e': ? 0.10 m/s ?? E - e': ? 11.83 ?? LVOT Max Gradient: ? 1.83 mm[Hg] ?? LVOT Area (cm2): ? 0.68 m/s ?? Peak Velocity (LVOT): ? 0.68 m/s ?? Mean Velocity (LVOT): ? 0.46 m/s ?? LVOT Diameter ? 2.07 cm ?? Left Ventricular Ejection Fraction: ? 55 % ?? Left Atrium ?? LA Volume Index (2D A2C): ? 68.23 ml/m2 ?? Left Atrium Systolic Dimension: ? 5.66 cm ?? Mitral Valve ?? MV E to A Ratio: ? 3.90 ?? Mitral Valve A-Wave Peak Velocity: ? 0.32 m/s ?? Mitral Valve E-Wave Peak Velocity: ? 1.24 m/s ?? Right Ventricle ?? Aorta ?? AO Root Diam: ? 2.90 cm ?? Ascending Ao Diam: ? 3.26 cm ?? Aortic Valve ?? AoV Area (Peak Vicente): ? 1.86 cm2, 1.86 cm2 ?? AoV Area (VTI): ? 2.12 cm2, 2.12 cm2 ?? Peak Velocity(Antegrade Flow): ? 1.22 m/s ?? Peak Gradient(Antegrade Flow): ? 5.99 mm[Hg] ?? Mean Velocity(Antegrade Flow): ? 0.80 m/s ?? Mean Gradient(Antegrade Flow): ? 3.00 mm[Hg] ?? Velocity Time Integral: ? 22.68 cm ?? Tricuspid Valve ?? Peak Velocity (Regurgitant Flow): ? 2.99 m/s ?? Pulmonic Valve ?? Mean Gradient: ? 2.04 mm[Hg] ?? Mean Velocity: ? 0.68 m/s ?? Peak Velocity: ? 0.95 m/s, 0.92 m/s ?? Peak Gradient: ? 3.35 mm[Hg], 3.62 mm[Hg] ?? Right Atrium ?? Right Atrium Systolic Pressure: ? 127.05 ml, 127.05 ml ? Dictated by: Ruddy Gibson M.D. on 12/16/2024 at 18:11 ? Approved by: Ruddy Gibson M.D. on 12/16/2024 at 18:18 ? Dictated By: ?RUDDY GIBSON ? Signed By: ?12/16/24 1820 ? DD/ 1819 ? TD/TT: ? Collar Tacker: Procedure Note Radiology, Radiologist, MD - 12/16/2024 [place] [address] Cardiology Report Signed Patient: LLUVIA MORENO LMR#: [id number] : 3Acct:[id number] Age/Sex: 84 / FADM Date: 12/16/24 Loc: CARD Attending Dr: Eulogio Amaya LEVERMAN Ordering Physician: Eulogio Amaya NP Date of Service: 12/16/24 Procedure(s): CA echo doppler complete Accession Number(s): [id number] cc: OLE YANG ; Eulogio Amaya NP Patient Name: LLUVIA MORENO MR#: [id number] : 1940 Exam Date: 12/16/2024 Ordering Doctor: EULOGIO AMAYA ECHOCARDIOGRAM REPORT PROCEDURE: CA ECHO DOPPLER COMPLETE INDICATIONS: Dyspnea on exertion, pacemaker, COPD, hypertension, congestive heart failure COMPARISON: None. DESCRIPTION: COMPLETE ECHOCARDIOGRAM Real-time transthoracic echocardiography with 2D, M-mode, spectral and color flow Dopplerperformed. QUALITY: Technical quality was good. LEFT VENTRICLE: Normal chamber size. Proximal septal hypertrophy(sigmoid septum). Systolic function is normal. LV EF: Estimated left ventricular ejection fraction is 55%. DIASTOLIC: ATRIAL SEPTUM: Visually appears intact. LEFT ATRIUM: Severe dilatation. RIGHT ATRIUM: Severe dilatation. RIGHT VENTRICLE: Mild dilatation. Systolic function is normal.Pacer wire present. TRICUSPID VALVE: Normal mobility and thickness. No stenosis with mild regurgitation. Doppler studies reveal mildly (35-45) elevated right sided pressures. RVSP 44 mmHg MITRAL VALVE: Normal mobility and thickness. No evidence of mitralvalve stenosis. There is no mitral annular calcification. Moderate mitral regurgitation. AORTIC VALVE: Normal trileaflet appearance. No visible sclerosis.Normal leaflet mobility. No evidence of aortic valve stenosis. No aortic regurgitation. AORTIC ROOT: Normal diameter and appearance, measuring 2.9 cm. The ascending aorta is normal in size measuring 3.3 cm. PULMONIC VALVE: Normal thickness and mobility. No stenosis. Mild regurgitation. PERICARDIUM: No evidence of pericardial effusion. IVC: Collapses with inspiration. IVC is mildly dilated (2.2 cm) PLEURA: CONCLUSION: 1. Normal left ventricular size and systolic function. Estimated LVEF is55%. 2. Mildly dilated right ventricle with normal systolic function. 3. Severe biatrial dilatation. 4. Moderate mitral regurgitation. 5. Mild tricuspid regurgitation. 6. Mildly elevated right-sided pressures. RVSP is 44 mmHg. Adult Echocardiography Procedure Report Left Ventricle LVEDD (3.7 - 5.6 cm): 4.12 cm LVESD (2.2 - 4.0 cm): 3.68 cm LVIVS thickness (0.6 - 1.2 cm): 1.58 cm LVPW thickness (0.5 - 1.0 cm): 1.02 cm e': 0.10 m/s E - e': 11.83 LVOT Max Gradient: 1.83 mm[Hg] LVOT Area (cm2): 0.68 m/s Peak Velocity (LVOT): 0.68 m/s Mean Velocity (LVOT): 0.46 m/s LVOT Diameter 2.07 cm Left Ventricular Ejection Fraction: 55 % Left Atrium LA Volume Index (2D A2C): 68.23 ml/m2 Left Atrium Systolic Dimension: 5.66 cm Mitral Valve MV E to A Ratio: 3.90 Mitral Valve A-Wave Peak Velocity: 0.32 m/s Mitral Valve E-Wave Peak Velocity: 1.24 m/s Right Ventricle Aorta AO Root Diam: 2.90 cm Ascending Ao Diam: 3.26 cm Aortic Valve AoV Area (Peak Vicente): 1.86 cm2, 1.86 cm2 AoV Area (VTI): 2.12 cm2, 2.12 cm2 Peak Velocity(Antegrade Flow): 1.22 m/s Peak Gradient(Antegrade Flow): 5.99 mm[Hg] Mean Velocity(Antegrade Flow): 0.80 m/s Mean Gradient(Antegrade Flow): 3.00 mm[Hg] Velocity Time Integral: 22.68 cm Tricuspid Valve Peak Velocity (Regurgitant Flow): 2.99 m/s Pulmonic Valve Mean Gradient: 2.04 mm[Hg] Mean Velocity: 0.68 m/s Peak Velocity: 0.95 m/s, 0.92 m/s Peak Gradient: 3.35 mm[Hg], 3.62 mm[Hg] Right Atrium Right Atrium Systolic Pressure: 127.05 ml, 127.05 ml Dictated by: Ruddy Gibson M.D. on 12/16/2024 at 18:11 Approved by: Ruddy Gibson M.D. on 12/16/2024 at 18:18 Dictated By: RUDDY GIBSON Signed By:12/16/241819 DD/ 18 TD/TT: Collar Tacker: Authorizing ProviderResult TypeResult StatusGeneric External Data Provider CLINISYNC IMAGINGFinal Result * POCT Glycated hemoglobin, total (12/14/2024 10:19 AM EDT)ComponentValueRef RangeTest MethodAnalysis TimePerformed AtPathologist SignatureHemoglobin A1C 5.8Specimen (Source)Anatomical Location / LateralityCollection Method / Volume Collection TimeReceived MfveRmsht64/29/2025 10:19 AM EDT Narrative Authorizing ProviderResult TypeResult Sarath Quita Yang [facility] TEST ENTER/EDIT ORDERABLESFinal Result * T3, free (11/22/2024 8:24 AM EDT)Specimen (Source)Anatomical Location / LateralityCollection Method / VolumeCollection TimeReceived TimeBloodVenous blood specimen / Unknown Narrative Authorizing ProviderResult TypeResult StatusTeri Luz Sandro CALAB BLOOD ORDERABLESFinal Result * TSH (11/22/2024 8:24 AM EDT)Specimen (Source)Anatomical Location / Laterality Collection Method / VolumeCollection TimeReceived TimeBloodVenous blood specimen / Unknown Narrative Authorizing ProviderResult TypeResult StatusMoiralissette Luz Sandro MDLAB BLOOD ORDERABLESFinal Result * T4, free (11/22/2024 8:24 AM EDT)Specimen (Source)Anatomical Location / LateralityCollection Method / VolumeCollection TimeReceived TimeBloodVenous blood specimen / Unknown Narrative Authorizing ProviderResult TypeResult BannerMoiralissette Luz Sandro CALAB BLOOD ORDERABLESFinal Result * (ABNORMAL) Basic metabolic panel (11/21/2024 8:03 AM EDT)ComponentValueRef RangeTest MethodAnalysis TimePerformed AtPathologist XlbammrrbAzpvhil667(H)65 - 99 mg/dLQUESTComment: ? Fasting reference interval For someone without known diabetes, a glucose value >125 mg/dL indicates that they may have diabetes and this should be confirmed with a follow-up test. ZVJ436 - 25 mg/dLQUESTCreatinine1.02(H)0.60 - 0.95 mg/aEFHLHKIMTY26(L)> OR = 60 mL/min/1.99b8QILFKNVZ/CREATININE LCFXX508 - 22 (calc)JEZFKHgpeqv023345 - 146 mmol/LQUESTPotassium, Bld4.53.5 - 5.3 mmol/NHAUWDBsgkajlh68486 - 110 mmol/LQUEST Carbon Gzeuvpd38(H)20 - 32 mmol/LQUESTCalcium9.48.6 - 10.4 mg/dLQUESTSpecimen (Source)Anatomical Location / LateralityCollection Method / VolumeCollection TimeReceived TimeBloodVenous blood specimen / Vqxzliv1211/21/2024 8:03 AM EDT 11/21/2024 2:45 PM EDT Narrative Resulting Agency Comment Performing Organization Information ?Site ID: [id number] ?Name: [facility] ?Address: [address] [place] [phone] ?Director: Priyanka Nazario Authorizing ProviderResult TypeResult StatusDipti YEAGER BLOOD ORDERABLESFinal ResultPerforming OrganizationAddressCity/State/ZIP CodePhone Number [facility]ST * (ABNORMAL) Urinalysis, manual only (10/19/2024 5:00 PM EDT)ComponentValueRef RangeTest MethodAnalysis TimePerformed AtPathologist SignatureCOLORYellow YellowPROMEDICATURBIDITYClearClearPROMEDICASPECIFIC GRAVITY1.0151.003 - 1.035 NAPROMEDICANITRITENegativeNegativePROMEDICAPH, URINE6.05.0 - 8.5 [place] LEUKOCYTE ESTERASENegativeNegativePROMEDICAPROTEINNegativeNegativePROMEDICA KETONES (URINE)Trace(A)NegativePROMEDICAUROBILINOGEN1.0 eu/dL0.2 eu/dL, 1.0 eu/dLPROMEDICABILIRUBIN (URINE)NegativeNegativePROMEDICABLOOD/HGBNegative NegativePROMEDICAGLUCOSE (URINE)NegativeNegative, 250 mg/dLPROMEDICAComment: ?? PERFORMED AT [address] [place] [address] Specimen (Source)Anatomical Location / LateralityCollection Method / Volume Collection TimeReceived Time10/19/2024 5:00 PM EDT10/19/2024 7:24 PM EDT Narrative Authorizing ProviderResult TypeResult StatusOle DORAN URINE ORDERABLESFinal ResultPerforming OrganizationAddressty/State/ZIP CodePhone Number [place] * (ABNORMAL) [facility] CMP (CMP) (FOR REMOTE [facility] USE) (10/19/2024 8:25 AM EDT) ComponentValueRef RangeTest MethodAnalysis TimePerformed AtPathologist ZgdiolxaqELQWNX504208 - 145 mmol/LTBHPOTASSIUM5.4(H)3.5 - 5.1 mmol/LTBH HPQIGDTW78107 - 107 mmol/LTBHCARBON AXZFUNH97.821.0 - 32.0 mmol/LTBHANION GAP 15.4LBGKEJNOCG303(H)74 - 106 mg/dLTBHBLOOD UREA XXYRAYMX93.0(H)7.0 - 18.0 mg/dLTBHCREATININE1.37(H)0.55 - 1.02 mg/dLTBHTBH EGFR-AF EKQYITAD95(L)>=60 mL/min/1.73m 2TBHTBH EGFR-NON AF WZQEPUDU49(L)>=60 mL/min/1.73m 2TBHBUN CREATININE RATIO24.7TGVMIWRAHS07.18.5 - 10.1 mg/dLTBHBILIRUBIN TOTAL0.40.2 - 1.0 mg/dLTBHASPARTATE AMINO BFDUCYGPPEA0380 - 37 U/LTBHALANINE GOZVPPEOXLDBSMJU2221 - 59 U/LTBHALKALINE CYVGAHXVMVW79768 - 116 U/LTBHTOTAL PROTEIN8.06.4 - 8.2 g/dLTBHALBUMIN LEVEL3.3(L)3.4 - 5.0 g/dLTBHGLOBULIN4.7g/dL TBHALBUMIN GLOBULIN RATIO0.7TBHSpecimen (Source)Anatomical Location / LateralityCollection Method / VolumeCollection TimeReceived Time10/19/2024 8:25 AM EDT10/19/2024 8:26 AM EDT Narrative CLINISYNC - 10/19/2024 12:11 PM EDT Authorizing ProviderResult TypeResult StatusJazmny Baum NPCLINISYNCFinal Result Performing OrganizationAddressCity/State/ZIP CodePhone Number CLINISYNC [facility] * (ABNORMAL) ALL CBC WITH AUTO DIFF (10/19/2024 8:25 AM EDT)ComponentValueRef RangeTest MethodAnalysis TimePerformed AtPathologist SignatureTBH WBC9.44.0 - 11.0 10 3/uLTBHTBH RBC4.244.20 - 5.40 10 6/uLTBHTBH HGB11.9(L)12.0 - 16.0 g/dL TBHTBH HCT38.936.0 - 48.0 %TBHTBH MCV91.781.0 - 99.0 fLTBHTBH MCH28.126.7 - 34.0 pgTBHTBH MCHC30.629.9 - 35.2 g/dLTBHTBH RDW14.511.0 - 15.0 %TBHTBH HIS939 150 - 450 10 3/uLTBHTBH MPV9.59.5 - [...] 10/19/2024 11:06 AM EDT Authorizing ProviderResult TypeResult StatusJazmny Baum NPCLINISYNCFinal Result Performing OrganizationAddressCity/State/ZIP CodePhone Number [facility] from Last 3 Months Insurance Advance Directives TypeDate RecordedPatient RepresentativeExplanationPower of Attorney02/25/2024 12:18 PMHealthcare Power of Bus Driver/Monitor Care Teams Team MemberRelationshipSpecialtyStart DateEnd Date Ole Yang MD [address] [facility] [address] [place] [address] PCP - ACO Reach07/10/22 Ole Yang MD [address] [facility] [address] [place], [place] [address] PCP - GeneralInternal Medicine07/28/22 Edna Alcantara LPN [address] [facility] 110 [place] [address] 05/06/24
--- OUTSIDE RECORDS SUMMARY | 2024-12-29 10:23 | XMS_ITS | Encounter Summary ---
Author Organization [facility] Address [address] [place] [address] Care Team Providers Care Machine Crater Name Role Phone Ole Yang MD Unavailable [phone] Ole Yang MD Primary Care Provider [phone] Edna Alcantara LPN Unavailable Encounter Details DateTypeDepartmentCare Team (Latest Contact Info)Trpzwkcxtxk26/31/2025Clinisync Result Encounter [facility] External Department Unsolicited Provider, Generic External Data Social History Tobacco UseTypesPacks/DayYears UsedDateSmoking Tobacco: NeverSmokeless Tobacco: NeverAlcohol UseStandard Drinks/WeekCommentsNever0 (1 standard drink = 0.6 oz pure alcohol)B1300 Health LiteracyAnswerDate RecordedHow often do you need to have someone help you when you read instructions, pamphlets, or other written material from your doctor or pharmacy?Bynqptpsq88/16/2025Humiliation, Afraid, Rape, and Kick questionnaireAnswerDate RecordedWithin the [...] relatives?Twice a week06/01/2024How often do you attend congregation or taoist services?Never06/01/2024Do you belong to any clubs or organizations such as congregation groups, unions, fraternal or athletic groups, or school groups?No06/01/2024How often do you attend meetings of the clubs or organizations you belong to?Never06/01/2024re you , , , , never , or living with a partner?Uxnixnx5906/01/2024 AUDIT-CAnswerDate RecordedQ1: How often do you have [...] RecordedPatient Health Questionnaire-2 Score0 11/08/2024[facility] [place] [facility] Occup[facility] Health - Occupational Stress QuestionnaireAnswerDate [...] were you homeless or living in a alf (including now)? No06/01/2024CommentsUnknownSex and Gender InformationValueDate Recorded Sex Assigned at BirthNot on fileLegal EfzJqwxob55/15/2023 7:05 PM EDTGender IdentityNot on fileSexual OrientationNot on filedocumented as of this encounter Plan of Treatment DateTypeDepartmentCare Team (Latest Contact Info)Sjtyhwraqmc47/29/2026 10:40 AM ESTProcedure Visit [facility] [address] [facility] [address] [place] [address] Kenneth Clifton DPM [address] [facility] 5 [place] [address] 03/22/2025 10:00 AM ESTOffice Visit [facility] [place] [address] [facility] [address] [place] [address] Ole Yang MD [address] [facility] [address] [place], [place] [id number] 05/31/2025 10:30 AM EDTOffice Visit [facility] [place] [facility] [address] [place] [address] Teri Jo MD [address] [place] [address] documented as of this encounter Procedures Procedure NamePriorityDate/TimeAssociated DiagnosisCommentsCA ECHO DOPPLER YTYPUWCF55/31/2025 6:19 PM EDT documented in this encounter Results * CA ECHO DOPPLER COMPLETE (12/16/2024 6:19 PM EDT)Anatomical RegionLaterality ModalityOtherSpecimen (Source)Anatomical Location / LateralityCollection Method / VolumeCollection TimeReceived Time12/16/2024 6:19 PM EDT Narrative 12/16/2024 6:20 PM EDT [facility] ?[address] ? [place] [address] ? Cardiology Report ? Signed ? Patient: LLUVIA FERRARO L ? MR#: [id number] ?? : 1940 ?Acct:[id number] ?? Age/Sex: 84 / F ?ADM Date: 12/16/24 ?? Loc: CARD ? Attending Dr: Eulogio Amaya PRISON TEACHER ? Ordering Physician: Eulogio Amaya NP ?? Date of Service: 12/16/24 ?? Procedure(s): CA echo doppler complete ?? Accession Number(s): [id number] ? cc: OLE YANG ; Eulogio Amaya NP ? Patient Name: ? LLUVIA FERRARO ? MR#: [id number] ? : 1940 ? Exam Date: 12/16/2024 [...] ml, 127.05 ml ? Dictated by: Ruddy Lucas M.D. on 12/16/2024 at 18:11 ? Approved by: Ruddy Lucas M.D. on 12/16/2024 at 18:18 ? Dictated By: ?RUDDY LUCAS ? Signed By: ?12/16/24 1820 ? DD/ 1819 ? TD/TT: ? Ground Source Heat Pump Technician: Procedure Note Radiology, Radiologist, - 12/16/2024 [place] [address] Cardiology Report Signed Patient: LLUVIA FERRARO LMR#: [id number] : 1940cct:[id number] Age/Sex: 84 / FADM Date: 12/16/24 Loc: CARD Attending Dr: Eulogio Amaya NP Ordering Physician: Eulogio Amaya NP Date of Service: 12/16/24 Procedure(s): CA echo doppler complete Accession Number(s): [id number] cc: OLE YANG ; Eulogio Amaya NP Patient Name: LLUVIA FERRARO MR#: [id number] : 1940 Exam Date: 12/16/2024 Ordering Doctor: EULOGIO AMYAA ECHOCARDIOGRAM REPORT PROCEDURE: CA ECHO DOPPLER COMPLETE [...] 127.05 ml, 127.05 ml Dictated by: Ruddy Lucas M.D. on 12/16/2024 at 18:11 Approved by: Ruddy Lucas M.D. on 12/16/2024 at 18:18 Dictated By: RUDDY LUCAS Signed By:12/16/241819 DD/ 18 TD/TT: Ground Source Heat Pump Technician: Authorizing ProviderResult TypeResult StatusGeneric External Data Provider CLINISYNC IMAGINGFinal Result documented in this encounter Visit Diagnoses Not on filedocumented in this encounter Additional Health Concerns AssessmentNoted TimePHQ-9 Depression Total Score: 13006/02/2024 9:00 AM EDT documented as of this encounter Care Teams Team MemberRelationshipSpecialtyStart DateEnd Date Ole Yang MD [address] [facility] [address] [place] [address] PCP - ACO Reach07/10/22 Ole Yang MD [address] [facility] [address] [place] [address] PCP - GeneralInternal Medicine07/28/22 Edna Alcantara LPN [address] [facility] [address] [place] [address] 05/06/24documented as of this encounter
--- OUTSIDE RECORDS SUMMARY | 2024-12-29 10:23 | XMS_ITS | Encounter Summary ---
Author Organization [facility] Address [address] [facility] [place] [address] Care Team Providers Care Education And Development Manager Name Role Phone Ole Yang MD Unavailable [phone] Ole Yang MD Primary Care Provider [phone] Edna Alcantara LPN Unavailable Encounter Details DateTypeDepartmentCare Team (Latest Contact Info)Mjghxcxpkgm10/05/2025Telephone [facility] [address] [facility] [address] [place] [address] Abbi Wayne, ROLL SHOP SUPERVISOR [address] [facility] [address] [place], [place] [id number] Social History Tobacco UseTypesPacks/DayYears UsedDateSmoking Tobacco: NeverSmokeless Tobacco: NeverAlcohol UseStandard Drinks/WeekCommentsNever0 (1 standard drink = 0.6 oz pure alcohol)B1300 Health LiteracyAnswerDate RecordedHow often do you need to have someone help you when you read instructions, pamphlets, or other written material from your doctor or pharmacy?Cxgllynea44/16/2025Humiliation, Afraid, Rape, and Kick questionnaireAnswerDate RecordedWithin the [...] relatives?Twice a week06/01/2024How often do you attend judaism or zoroastrianism services?Never06/01/2024Do you belong to any clubs or organizations such as judaism groups, unions, fraternal or athletic groups, or school groups?No06/01/2024How often do you attend meetings of the clubs or organizations you belong to?Never06/01/2024re you , , , , never , or living with a partner?Jochjfo7206/01/2024 AUDIT-CAnswerDate RecordedQ1: How often do you have [...] very hard 06/01/2024PHQ-2AnswerDate RecordedPatient Health Questionnaire-2 Score0 11/08/2024[facility] [place] [facility] Occupational Health - Occupational Stress QuestionnaireAnswerDate [...] were you homeless or living in a detention (including now)? No06/01/2024CommentsUnknownSex and Gender InformationValueDate Recorded Sex Assigned at BirthNot on fileLegal DpkNsvwjh48/15/2023 7:05 PM EDTGender IdentityNot on fileSexual OrientationNot on filedocumented as of this encounter Miscellaneous Notes * Telephone Encounter - Abbi Wayne NP - 12/21/2024 8:29 AM EST Created in error documented in this encounter Plan of Treatment DateTypeDepartmentCare Team (Latest Contact Info)Woxwizdagjr25/29/2026 10:40 AM ESTProcedure Visit [facility] [address] [facility] 120 [place] [address] Kenneth Clifton DPM [address] [facility] [address] [place] [address] 03/22/2025 10:00 AM ESTOffice Visit [facility] [place] [facility] [address] [facility] [address] [place] [address] Ole Yang MD [address] [facility] [address] [place] [address] 05/31/2025 10:30 AM EDTOffice Visit [facility] [place] [facility] [address] [place] [address] Teri Jo MD [address] [place] [address] documented as of this encounter Visit Diagnoses Diagnosis ERRONEOUS ENCOUNTER--DISREGARD- Primary documented in this encounter Additional Health Concerns AssessmentNoted TimePHQ-9 Depression Total Score: 13006/02/2024 9:00 AM EDT documented as of this encounter Care Teams Team MemberRelationshipSpecialtyStart DateEnd Date Ole Yang MD [address] [facility] [address] [place] [address] PCP - ACO Reach07/10/22 Ole Yang MD [address] [facility] [address] [place] [address] PCP - GeneralInternal Medicine07/28/22 Edna Alcantara LPN [address] [facility] [address] [place] [address] 05/06/24documented as of this encounter
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
--- OUTSIDE RECORDS SUMMARY | 2024-12-29 10:23 | XMS_ITS | Encounter Summary ---
Author Organization [facility] Address [address] [place] [address] Care Team Providers Care Wagon Winder Name Role Phone Ole Yang MD Primary Care Provider [phone] Encounter Details DateTypeDepartmentCare Team (Latest Contact Info)Vfulmiilblg16/07/2025Orders Only [facility] [address] [place] [address] Soni Nowak MD [address] [place] [address] Social History Tobacco UseTypesPacks/DayYears UsedDateSmoking Tobacco: NeverSmokeless Tobacco: NeverAlcohol UseStandard Drinks/WeekCommentsNot Currently0 (1 standard drink = 0.6 oz pure alcohol)[place] Safety & EnvironmentAnswerDate RecordedFear of Current or Ex-PartnerNot on file04/09/2023Emotionally AbusedNot on file04/09/2023hysically AbusedNot on file04/09/2023Sexually AbusedNot on 04/09/2023hysically or Sexually AbusedNot on file04/09/2023CommentsUnknownSex and Gender InformationValueDate RecordedSex Assigned at VkwajSdwrpw75/23/2025 11:40 AM EDT Legal SbgTplffk53/29/2022 11:46 PM EDTGender AafskyqsQrcjyq25/23/2025 11:40 AM EDTSexual OrientationChoose not to tuaxpokj00/14/2025 9:44 PM EDTdocumented as of this encounter Plan of Treatment DateTypeDepartmentCare Team (Latest Contact Info)Wqaroaccqzy31/29/2025 2:40 PM ESTOffice Visit [facility] [address] [place] [address] Eulogio Wahl, WORM RAISER [address] [place] [address] documented as of this encounter Procedures Procedure NamePriorityDate/TimeAssociated DiagnosisCommentsCARDIAC DEVICE CHECK - REMOTE ALERT - VRRGghppjg64/07/2025 12:00 AM ESTdocumented in this encounter Results * Cardiac device check - Remote alert ICD (12/23/2024 12:00 AM EST)Anatomical RegionLateralityModalityOtherSpecimen (Source)Anatomical Location / Laterality Collection Method / VolumeCollection TimeReceived Time12/23/2024 Narrative Authorizing ProviderResult TypeResult StatusSatyler Nowak [facility] IMPLANTABLE CARDIAC DEVICE PROCEDURESFinal Result documented in this encounter Visit Diagnoses Not on filedocumented in this encounter Care Teams Team MemberRelationshipSpecialtyStart DateEnd Date Ole Yang MD [address] [place] [address] PCP - General10/07/21documented as of this encounter
[2024-12-29 11:36] LABS: Alanine Aminotransferase 30 U/L (14-59); Albumin Globulin Ratio 0.7; Albumin Level 2.9 g/dL (3.4-5.0); Alkaline Phosphatase 101 U/L (46-116); Anion Gap 10.7; Aspartate Amino Transferase 21 U/L (15-37); Blood Urea Nitrogen 21.0 mg/dL (7.0-18.0); Calcium 10.0 mg/dL (8.5-10.1); Carbon Dioxide 32.8 mmol/L (21.0-32.0); Chloride 101 mmol/L (98-107); Estimated GFR (African America 57 (>=60 mL/min/1.73m^2); Estimated GFR (Non-African Ame 47 (>=60 mL/min/1.73m^2); Globulin 4.2 g/dL; Glucose 146 mg/dL (74-106); Potassium 4.5 mmol/L (3.5-5.1); Sodium 140 mmol/L (136-145); Total Protein 7.1 g/dL (6.4-8.2)
== END 2024-12-29 10:18 | disposition home or self-care (01) ==
LOC: LAB 10:19
PROVIDERS: PCP Internal Medicine
DX: R06.09 Other forms of dyspnea (principal); I42.0 Dilated cardiomyopathy
CPT/HCPCS: 36415; 80053; 83880

== ENCOUNTER 2025-01-11 08:00 | Outpatient (OUT) | payer MEDICARE, OTHER, SELFPAY ==
--- OUTSIDE RECORDS SUMMARY | 2024-12-29 10:00 | XMS_ITS | Encounter Summary ---
Author Organization [facility] Address [address] [place] [address] Care Team Providers Care Contracting Specialist Name Role Phone Ole Yang MD Unavailable [phone] Ole Yang MD Primary Care Provider Edna Alcantara LPN Unavailable Reason for Visit * ReasonCommentsToenail Care Encounter Details DateTypeDepartmentCare Team (Latest Contact Info)Xcvqmudywcx06/13/2025 10:00 AM ESTProcedure Visit [facility] 120 [place] [address] Kenneth Clifton, DPJaguar 3006 [facility] 5 [place] [address] Pain due to onychomycosis of [...] other written material from your doctor or pharmacy?Ehckxaptr74/16/2025Humiliation, Afraid, Rape, and Kick questionnaireAnswerDate RecordedWithin the [...] relatives?Twice a week06/01/2024How often do you attend jehovah's witness or pentecostal services?Never06/01/2024Do you belong to any clubs or organizations such as jehovah's witness groups, unions, fraternal or athletic groups, or school groups?No06/01/2024How often do you attend meetings of the clubs or organizations you belong to?Never06/01/2024re you , , , , never , or living with a partner?Jthvkbh5006/01/2024 AUDIT-CAnswerDate RecordedQ1: How often do you have [...] RecordedPatient Health Questionnaire-2 Score0 11/08/2024[facility] [place] [facility] - Occupational Stress QuestionnaireAnswerDate [...] were you homeless or living in a long term (including now)? No06/01/2024CommentsUnknownSex and Gender InformationValueDate Recorded Sex Assigned at BirthNot on fileLegal AvrUasnwm43/15/2023 7:05 PM EDTGender IdentityNot on fileSexual OrientationNot on filedocumented as of this encounter Last Filed Vital Signs Vital SignReadingTime TakenCommentsBlood Pressure--Pulse--Temperature-- Respiratory Ttou638102/29/2024 9:38 AM ESTOxygen Saturation--Inhaled Oxygen Concentration--Gbbkgd93.7 kg (178 lb)12/29/2024 9:38 AM VMKUgzbjs161.2 cm (5' 7 )12/29/2024 9:38 AM ESTBody [...] 0 min Stress: Stress Concern Present (06/01/2024) [place] of Occupational Health - Occupational Stress Questionnaire Feeling of Stress : Rather much Social Connections: Moderately Isolated (06/01/2024) Social Connection and Isolation Panel Frequency of Communication with Friends and Family: More than three times a week Frequency of Social Gatherings with Friends and Family: Twice a week Attends Jewish Services: Never Active Member of Clubs or [...] Plan of Treatment DateTypeDepartmentCare Team (Latest Contact Info)Yhhywypbzak61/29/2026 10:40 AM ESTProcedure Visit [facility] 112 [facility] 120 [place] [address] Kenneth Clifton DPM 3006 [facility] 5 [place] [address] 03/22/2025 10:00 AM ESTOffice Visit [facility] [place] [facility] [address] [place] [address] Ole Yang MD [address] [place] [address] 05/31/2025 10:30 AM EDTOffice Visit [facility] [place] [facility] [address] [place] [address] Teri Jo MD [address] [place] [address] documented as of this encounter Visit Diagnoses Diagnosis Pain due to onychomycosis of toenails of both feet- Primary Venous insufficiency Unspecified venous (peripheral) insufficiency documented in this encounter Additional Health Concerns AssessmentNoted TimePQ-9 Depression Total Score: 13006/02/2024 9:00 AM EDT documented as of this encounter Care Teams Team MemberRelationshipSpecialtyStart DateEnd Date Ole Yang MD [address] [facility] [address] [place] [address] PCP - ACO Reach07/10/22 Ole Yang MD [address] [place] [address] PCP - GeneralInternal Medicine07/28/22 Edna Alcantara LPN [address] [place] [address] 05/06/24documented as of this encounter
--- OUTSIDE RECORDS SUMMARY | 2025-01-11 08:06 | XMS_ITS | Encounter Summary ---
Author Organization [facility] Address [address] [place] [address] Care Team Providers Care Slipper Maker Name Role Phone Ole Yang MD Primary Care Provider [phone] Encounter Details DateTypeDepartmentCare Team (Latest Contact Info)Aoxdkoxdslx35/13/2025Telephone [facility] [address] [place] [address] Valarie Laguerre MA Social History Tobacco UseTypesPacks/DayYears UsedDateSmoking Tobacco: NeverSmokeless Tobacco: NeverAlcohol UseStandard Drinks/WeekCommentsNot Currently0 (1 standard drink = 0.6 oz pure alcohol)[place] Safety & EnvironmentAnswerDate RecordedFear of Current or Ex-PartnerNot on file04/09/2023Emotionally AbusedNot on file04/09/2023hysically AbusedNot on file04/09/2023Sexually AbusedNot on file04/09/2023hysically or Sexually AbusedNot on file04/09/2023CommentsUnknownSex and Gender InformationValueDate RecordedSex Assigned at DnxzsYndsvq62/23/2025 11:40 AM EDT Legal MjmSebcqf23/29/2022 11:46 PM EDTGender SsdfqrhlTpxvfu49/23/2025 11:40 AM EDTSexual OrientationChoose not to gqjkesgz15/14/2025 9:44 PM EDTdocumented as of this encounter Miscellaneous Notes * Telephone Encounter - Valarie Laguerre MA - 12/29/2024 12:53 PM EST Eulogio acknowledged per [employer] chat documented in this encounter Plan of Treatment DateTypeDepartmentCare Team (Latest Contact Info)Splnnbwkuay92/29/2025 2:40 PM ESTOffice Visit [facility] [address] [place] [address] Eulogio Wahl, INSTALLATION MANAGER [address] [place] [address] documented as of this encounter Visit Diagnoses Not on filedocumented in this encounter Care Teams Team MemberRelationshipSpecialtyStart DateEnd Date Ole Yang MD [address] [place] [address] PCP - General10/07/21documented as of this encounter
--- OUTSIDE RECORDS SUMMARY | 2025-01-11 08:06 | XMS_ITS | Encounter Summary ---
Author Organization [facility] Address [address] [place] [address] Care Team Providers Care Media Law Faculty Member Name Role Phone Ole Yang MD Primary Care Provider [phone] Encounter Details DateTypeDepartmentCare Team (Latest Contact Info)Vorcjmpzmuv43/07/2025Orders Only [facility] [address] [place] [address] Soni Nowak MD [address] [place] [address] Social History Tobacco UseTypesPacks/DayYears UsedDateSmoking Tobacco: NeverSmokeless Tobacco: NeverAlcohol UseStandard Drinks/WeekCommentsNot Currently0 (1 standard drink = 0.6 oz pure alcohol)[place] Safety & EnvironmentAnswerDate RecordedFear of Current or Ex-PartnerNot on file04/09/2023Emotionally AbusedNot on file04/09/2023hysically AbusedNot on file04/09/2023Sexually AbusedNot on 04/09/2023hysically or Sexually AbusedNot on file04/09/2023CommentsUnknownSex and Gender InformationValueDate RecordedSex Assigned at LidarLzgqut25/23/2025 11:40 AM EDT Legal JpsClkcle66/29/2022 11:46 PM EDTGender TjhrodojOrhujr14/23/2025 11:40 AM EDTSexual OrientationChoose not to vlquoxca28/14/2025 9:44 PM EDTdocumented as of this encounter Plan of Treatment DateTypeDepartmentCare Team (Latest Contact Info)Cpgscwfmocr92/29/2025 2:[address] [facility] [address] [place] [address] Eulogio Wahl, UNDERWRITING TECHNICIAN [address] [place] [address] documented as of this encounter Procedures Procedure NamePriorityDate/TimeAssociated DiagnosisCommentsCARDIAC DEVICE CHECK - REMOTE ALERT - NXWQvmketr67/07/2025 12:00 AM ESTdocumented in this encounter Results [...] MemberRelationshipSpecialtyStart DateEnd Date Ole Yang MD [address] [place] [address] PCP - General10/07/21documented as of this encounter
--- OUTSIDE RECORDS SUMMARY | 2025-01-11 08:06 | XMS_ITS | Encounter Summary ---
Author Organization [facility] Address [address] [place] [address] Care Team Providers Care De Alcoholizer Name Role Phone Ole Yang MD Unavailable Ole Yagn MD Primary Care Provider Edna Alcantara LPN Unavailable Encounter Details DateTypeDepartmentCare Team (Latest Contact Info)Whwmlnpsfde51/13/2025Travel Social History Tobacco UseTypesPacks/DayYears UsedDateSmoking Tobacco: NeverSmokeless Tobacco: NeverAlcohol UseStandard Drinks/WeekCommentsNever0 (1 standard drink = 0.6 oz pure alcohol)B1300 Health LiteracyAnswerDate RecordedHow often do you need to have someone help you when you read instructions, pamphlets, or other written material from your doctor or pharmacy?Jhkwxxubq77/16/2025Humiliation, Afraid, Rape, and Kick questionnaireAnswerDate RecordedWithin the [...] relatives?Twice a week06/01/2024How often do you attend religious or zoroastrian services?Never06/01/2024Do you belong to any clubs or organizations such as religious groups, unions, fraternal or athletic groups, or school groups?No06/01/2024How often do you attend meetings of the clubs or organizations you belong to?Never06/01/2024re you , , , , never , or living with a partner?Izbrvxi7906/01/2024 AUDIT-CAnswerDate RecordedQ1: How often do you have [...] very hard 06/01/2024PHQ-2AnswerDate RecordedPatient Health Questionnaire-2 Score0 11/08/2024[facility] [place] [facility] - Occupational Stress QuestionnaireAnswerDate [...] Recorded Sex Assigned at BirthNot on fileLegal XtyEnctqc47/15/2023 7:05 PM EDTGender IdentityNot on fileSexual OrientationNot on filedocumented as of this encounter Plan of Treatment DateTypeDepartmentCare Team (Latest Contact Info)Jvkszrdmayw12/29/2026 10:40 AM ESTProcedure Visit [facility] [address] [facility] [address] [place] [address] Kenneth Clifton DPM [address] [facility] [address] [place] [address] 03/22/2025 10:00 AM ESTOffice Visit [facility] [address] [facility] [address] [place] [address] Ole Yang MD [address] [facility] [address] [place], [place] [address] 05/31/2025 10:30 AM EDTOffice Visit [facility] [place] [address] [place] [address] Teri Jo MD [address] [place] [address] documented as of this encounter Visit Diagnoses Not on filedocumented in this encounter Additional Health Concerns AssessmentNoted TimePHQ-9 Depression Total Score: 13006/02/2024 9:00 AM EDT documented as of this encounter Care Teams Team MemberRelationshipSpecialtyStart DateEnd Ole Yang MD [address] [facility] [address] [place] [address] PCP - ACO [facility]07/10/22 Ole Yang MD [address] [facility] [address] [place] [address] PCP - GeneralInternal Medicine07/28/22 Edna Alcantara LPN [address] [facility] [address] [place] [address] 05/06/24documented as of this encounter
--- OUTSIDE RECORDS SUMMARY | 2025-01-11 08:06 | XMS_ITS | Encounter Summary ---
Author Organization [facility] Address [address] [place] [address] Care Team Providers Care City Planning Engineer Name Role Phone Ole Yang MD Unavailable [phone] Ole Yang MD Primary Care Provider [phone] Edna Alcantara LPN Unavailable Encounter Details DateTypeDepartmentCare Team (Latest Contact Info)Kmczhkvctmu73/13/2025Bamboo flowsheet [facility] [address] [facility] [address] [place] [address] Kenneth Clifton, DPM [address] [facility] [address] [place] [address] Social History Tobacco UseTypesPacks/DayYears UsedDateSmoking Tobacco: NeverSmokeless Tobacco: NeverAlcohol UseStandard Drinks/WeekCommentsNever0 (1 standard drink = 0.6 oz pure alcohol)B1300 Health LiteracyAnswerDate RecordedHow often do you need to have someone help you when you read instructions, pamphlets, or other written material from your doctor or pharmacy?Tjqpsbwki33/16/2025Humiliation, Afraid, Rape, and Kick questionnaireAnswerDate RecordedWithin the [...] relatives?Twice a week06/01/2024How often do you attend episcopalian or adventism services?Never06/01/2024Do you belong to any clubs or organizations such as episcopalian groups, unions, fraternal or athletic groups, or school groups?No06/01/2024How often do you attend meetings of the clubs or organizations you belong to?Never06/01/2024re you , , , , never , or living with a partner?Vdpsica5706/01/2024 AUDIT-CAnswerDate RecordedQ1: How often do you have [...] RecordedPatient Health Questionnaire-2 Score0 11/08/2024[facility] - Occupational Stress QuestionnaireAnswerDate [...] Recorded Sex Assigned at BirthNot on fileLegal XcjBmnxsw64/15/2023 7:05 PM EDTGender IdentityNot on fileSexual OrientationNot on filedocumented as of this encounter Plan of Treatment DateTypeDepartmentCare Team (Latest Contact Info)Exfpulwhbmz85/29/2026 10:40 AM ESTProcedure Visit [facility] [address] [place] [address] Kenneth Clifton DPM [address] [facility] [address] [place] [address] 03/22/2025 10:00 AM ESTOffice Visit [facility] [place] [facility] [address] [place] [address] Ole Yang MD [address] [place] [address] 05/31/2025 10:30 AM EDTOffice Visit [facility] [address] [place] [address] Teri Jo MD [address] [place] [id number] documented as of this encounter Visit Diagnoses Not on filedocumented in this encounter Additional Health Concerns AssessmentNoted TimePHQ-9 Depression Total Score: 13006/02/2024 9:00 AM EDT documented as of this encounter Care Teams Team MemberRelationshipSpecialtyStart DateEnd Date Ole Yang MD [address] [place] [address] PCP - ACO Reach07/10/22 Ole Yang MD [address] [place] [address] PCP - GeneralInternal Medicine07/28/22 Edna Alcantara LPN [address] [place] [address] 05/06/24documented as of this encounter
--- OUTSIDE RECORDS SUMMARY | 2025-01-11 08:06 | XMS_ITS | Clinical Summary ---
Author Organization [facility] Address [address] [place] [address] Care Team Providers Care Balance Wheel Hand Filer Name Role Phone Ole Yang MD Unavailable [phone] Ole Yang MD Primary Care Provider [phone] Edna Alcantara LPN Unavailable Allergies Active AllergyReactionsCriticalityNoted DateCommentsLorazepamHallucinationsHigh 11/08/20242585RihiutwlgpfkfiRnmplBvbgjo78/23/2025 Hyperkalemia Medications MedicationSigDispense QuantityRefillsLast FilledStart DateEnd DateStatus [...] atorvastatin (Lipitor) 80 MG tablet Indications:Atherosclerosis of andreafski coronary artery of andreafski heart without angina pectorisTake 1 tablet (80 [...] capsule Discontinued(Therapy completed) Active Problems ProblemNoted DateDiagnosed EmquNqimpidm96/23/2025Essential hypertension 08/11/2024Pure lxrtrupjsxlodnvscmkd97/26/2025Trouble in gdbzgqfa09/22/2025 Supplemental oxygen dhkjfryqx21/09/2025hronic kidney disease, stage 3b 02/25/20241814Qghyhwj65/10/2024yspnea on eztwbaqr63/21/2024ardiomyopathy, ziywjhjtobl83/21/2024urrent use of gut snatcher gkzbukpjmumglpu77/27/2023ge- related osteoporosis without current pathological sriqutlo05/12/2023nxiety 07/28/2022rthritis of right shoulder ttjkpo1307/28/2022hronic atrial fibrillation, dqspapqpltf91/12/2023hronic combined systolic (congestive) and diastolic (congestive) heart tneiang9507/28/2022hronic obstructive pulmonary disease, rydidifqiqf50/12/2023hronic systolic dysfunction of left ventricle 07/28/20220347Hjsfedop77/12/2023Elevated liver zlwunbp2707/28/2022Frequent falls 07/28/20221639Ezdeyyzlaczfuln67/12/2023ICD (implantable cardioverter-defibrillator) in place07/28/2022Impaired fasting tipopru9007/28/2022Joint derangement of shoulder doaokj2407/28/2022Mild episode of recurrent major depressive disorder 07/28/2022Non-rheumatic mitral hyqboxnfsbfid54/12/2023Overweight (BMI 25.0-29.9) 07/28/2022rimary gzdyqqkmwqkwmf60/12/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 kssisbi9307/28/2022 Rotator cuff syndrome of right cghjauyn13/12/2023Status post biventricular cardiac pacemaker cwjhunavx97/13/2021anlobular jjicnqcac01/01/2021 Overview (08/26/2023): Last Assessment & Plan: If cardiac studies are without any acute concerns she may need to F/U with pulmonary for evaluationof CLAIRE History of stroke without residual /08/2021Mild intermittent asthma 09/12/2016Coronary artery disease involving andreafski coronary artery of andreafski heart without angina unumhjys44/08/2016Benign hypertensive heart disease with heart bwtrlcs1109/24/2015 Resolved Problems ProblemNoted DateDiagnosed DateResolved DateSuicidal alyvngeo01/23/2025 11/08/2024Homicidal hatfplhsp33KI (acute kidney injury) 5Acute vzdqumueojkg88ute dehydration bnormal results of pulmonary function rgcrscx3507/28/2022 07/30/2022oronary arteriosclerosis in andreafski anvowm47ardiac pacemaker in situTear of right rotator cuff09/12/2016 06/02/2024therosclerosis of coronary artery without angina wzqogyba47/20/2017 02/25/2024Systolic heart bozgyxz76Inguinal pain10/04/2015 05/27/2023erebrovascular wkdottfd45Hematoma of groin Encounters DateTypeDepartmentCare YypaIvsjypzrhps22/13/2025 10:00 AM ESTProcedure Visit [facility] [address] [place] [phone] Kenneth Clifton DPM Pain due to onychomycosis of toenails of both feet (Primary Dx); Venous wkjmuvvttwnqn12/13/2025linisync Result Encounter [facility] External Department Unsolicited Provider, Generic External Data 12/29/2024amboo flowsheet [facility] [address] [facility] [address] [place] [address] Kenneth Clifton DPM 12/29/20245694Fgffre87/12/8905Jtjirp30/05/2025Telephone [facility] [address] [facility] [address] [place] [address] Abbi Wayne NP 12/16/2024linisync Result Encounter [facility] External Department Unsolicited Provider, Generic External Data 12/14/2024 9:00 AM EDTOffice Visit [facility] [place] [address] [facility] [address] [place] [address] Ole Yang MD Type 2 diabetes mellitus with other specified complication, without long-term current use of insulin (HCC) (Primary Dx); Chronic combined systolic (congestive) and diastolic (congestive) heart failure (HCC); 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; Hyperthyroidism; Pure hypercholesterolemia; Chronic kidney disease, stage 3b ([facility]-HCC)12/14/2024amboo flowsheet [facility] [address] [place] [address] Ole Yang MD 12/14/20240722Aiklgq80/28/2025bstract [facility] [address] [place] [address] Ole Yang MD 12/12/2024bstract [facility] [place] [address] [place] [address] Ole Yang MD 12/12/2024bstract [facility] [place] [address] [place] [address] Ole Yang MD 12/08/2024bstract [facility] [place] [address] [place] [address] Ole Yang MD 12/07/2024Telephone [facility] [place] [address] [place] [address] Ole Yang MD 12/07/2024bstract [facility] [place] [address] [place] [address] Ole Yang MD 11/30/2024 10:00 AM EDTOffice Visit [facility] [place] [facility] [address] [place] [address] Teri Jo MD Hyperthyroidism (Primary Dx); Multinodular goiter; Longstanding persistent atrial fibrillation (HCC)11/30/2024Patient Outreach [facility] [address] 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 [address] Edna Alcantara LPN 11/22/2024bstract [facility] [place] [address] [place] [address] Ole Yang MD 11/22/2024Orders Only [facility] [place] [facility] [address] [place] [address] Teri Jo MD 11/21/2024Results Follow-Up [facility] [address] [place] [address] Dipti Wolf PA Basic metabolic panel11/19/2024Telephone [facility] [place] [address] [place] [address] Ole Yang MD 11/17/2024bstract [facility] [place] [address] [place] [address] Ole Yang MD 11/17/2024bstract [facility] [place] [address] [place] [address] Ole Yang MD 11/16/2024Patient Outreach [facility] [address] [place] [address] Edna Alcantara, [facility] 11/16/2024bstract [facility] [place] [address] [facility] [address] [place] [address] Ole Yang MD 11/10/2024bstract [facility] [place] [address] [facility] [address] [place] [address] Ole Yang MD 11/10/2024Patient Outreach [facility] [address] [place] [address] Edna Alcantara FLORICULTURIST 11/10/2024Patient Outreach [facility] [address] [place] [address] Edna Alcantara, [facility] 11/09/2024bstract [facility] [place] [address] [facility] [address] [place] [address] Ole Yang MD 11/09/2024bstract [facility] [address] [facility] [address] [place] [address] Ole Yang MD 11/08/2024 3:00 PM EDTOffice Visit [facility] [address] [facility] [address] [place] [address] Dipti Wolf PA 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); Panlobular emphysema (HCC); Frequent falls; History of stroke without residual deficits; Supplemental oxygen dependent; Age-related osteoporosis without current pathological fracture ; Hyperkalemia; Impaired fasting glucose; Chronic kidney disease, stage 3b ([facility]-HCC); Essential emgzbkxqqwee94/23/2025amboo flowsheet [facility] [place] [address] [facility] [address] [place] [address] Dipti Wolf PA 11/08/20240694Rufvpx25/19/2025Patient Outreach [facility] [address] [place] [address] Edna Alcantara LPN 11/04/2024bstract [facility] [place] [address] [place] [address] Ole Yang MD 11/03/2024bstract [facility] [place] [address] [place] [address] Ole Yang MD 11/02/2024bstract [facility] [place] [address] [place] [address] Ole Yang MD 11/02/2024bstract [facility] [place] [address] [place] [address] Ole Yang MD 11/01/2024bstract [facility] [place] [address] [place] [address] Ole Yang MD 11/01/2024bstract [facility] [place] [address] [place] [address] Ole Yang MD 11/01/2024bstract [facility] [place] [address] [place] [address] Ole Yang MD 11/01/2024bstract [facility] [place] [address] [place] [address] Ole Yang MD 10/31/2024 1:30 PM EDTOffice Visit [facility] [place] [address] [place] [address] Ole Yang MD Mild cognitive impairment (Primary Dx); Major depressive disorder, remission status unspecified, unspecified whether recurrent ; Chronic combined systolic (congestive) and diastolic (congestive) heart failure (HCC); Memory changes; Anxiety; Right sided sciatica; Impaired gait and yrzvcmby53/15/2025bstract [facility] [place] [address] [place] [address] Ole Yang MD 10/31/2024amboo flowsheet [facility] [place] [address] [place] [address] Ole Yang MD 10/31/20247124Ewyciu09/11/2025Telephone [facility] [place] [address] [place] [address] Ole Yang MD 10/26/2024Patient Outreach [facility] [address] [place] [address] Edna Alcantara LPN 10/26/2024bstract [facility] [place] [address] [place] [address] Ole Yang MD 10/25/2024bstract [facility] [place] [address] [place] [address] Ole Yang MD 10/24/2024bstract [facility] [address] [place] [address] Edna Alcantara LPN 10/24/2024Patient Outreach [facility] [address] [place] [address] Edna Alcantara LPN 10/24/2024Patient Outreach [facility] [address] [place] [address] Edna Alcantara LPN 10/20/2024Patient Outreach [facility] [address] [place] [address] Edna Alcantara LPN 10/20/2024bstract [facility] [place] [address] [place] [address] Ole Yang MD 10/20/2024bstract [facility] [place] [facility] [address] [facility] [address] [place] [address] Ole Yang MD 10/19/2024Telephone [facility] [place] [address] [place] [address] Ole Yang MD 10/19/2024linisync Result Encounter [facility] External Department Unsolicited Jazmyn Baum NP 10/18/2024Patient Outreach [facility] [address] [place] [address] Edna Alcantara LPN 10/14/2024Patient Outreach [facility] [address] [place] [address] Edna Alcantara LPN 10/13/2024 10:30 AM EDTOffice Visit [facility] [place] [address] [place] [address] Jazmyn Baum, BIOMETRIC FINGERPRINTING TECHNICIAN Dementia with behavioral disturbance (HCC) (Primary Dx); Age-related osteoporosis without current pathological fracture ; Fatigue, unspecified type; Anxiety; Right sided sciatica; Chronic respiratory failure, unspecified whether with hypoxia or hypercapnia (HCC); Chronic respiratory failure with hypoxia (HCC)10/13/2024 9:30 AM EDTOffice Visit [facility] [address] [facility] [address] [place] [address] Kenneth Clifton DPM Venous insufficiency (Primary Dx); Deformity of toenail; Pain due to onychomycosis of toenails of both feet10/13/2024amboo flowsheet [facility] [address] [facility] [address] [place] [address] Kenneth Clifton DPM 10/13/20242413Tkqfux85/27/2025bstract [facility] [place] [facility] [address] [facility] [address] [place] [address] Ole Yang MD from Last 3 Months Immunizations ImmunizationAdministration DatesNext DueABRYSVO - Respiratory syncytial virus (RSV), vaccine, bivalent, protein subunit RSV prefusion F, diluent reconstituted, 0.5 mL, PF12/10/2022Influenza, High Dose Seasonal, Preservative Free12/10/2021,01/17/2021Influenza, High-dose Seasonal, Quadrivalent, Preservative Free11/26/2023,12/02/2017,12/11/2016Influenza, Seasonal, Quadrivalent, Jvnncmnqhj88/11/2023Influenza, trivalent, gjeizioqbr35/24/2020, 11/25/2018Moderna SARS-CoV-2 50mcg/0.5mL Lhjzcgg9112/10/2021neumococcal Conjugate PCV 13006/25/2018Pneumococcal Polysaccharide RPUV7553,08/17/2007 SARS-COV-2 (COVID-19) vaccine, mRNA, spike protein, LNP, PF, robert-sucrose, 30 mcg/0.3 mL12/10/2023,01/01/2023Zoster, Nvgoltmpomb66/16/2023,04/16/2022 Family History Medical HistoryRelationNameCommentsCancerFatherHypertensionFatherCancerMother HypertensionMotherMental illnessMotherRelationNameStatusCommentsBrother1 alive, 1 decFatherDeceasedMotherDeceasedSisterx 3AliveSonx 1Alive Social History Tobacco UseTypesPacks/DayYears UsedDateSmoking Tobacco: NeverSmokeless Tobacco: Never Tobacco Cessation:Counseling Given: Yes Alcohol UseStandard Drinks/WeekCommentsNever0 (1 standard drink = 0.6 oz pure alcohol)B1300 Health LiteracyAnswerDate RecordedHow often do you need to have someone help you when you read instructions, pamphlets, or other written material from your doctor or pharmacy?Gfnuusudi74/16/2025Humiliation, Afraid, Rape, and Kick questionnaireAnswerDate RecordedWithin the [...] relatives?Twice a week06/01/2024How often do you attend muslim or alevism services?Never06/01/2024Do you belong to any clubs or organizations such as muslim groups, unions, fraternal or athletic groups, or school groups?No06/01/2024How often do you attend meetings of the clubs or organizations you belong to?Never06/01/2024re you , , , , never , or living with a partner?Jrktfsa9006/01/2024 AUDIT-CAnswerDate RecordedQ1: How often do you have [...] very hard 06/01/2024PHQ-2AnswerDate RecordedPatient Health Questionnaire-2 Score0 11/08/2024[facility] [place] [facility] - Occupational Stress [...] were you homeless or living in a prison (including now)? No06/01/2024CommentsUnknownSex and Gender InformationValueDate Recorded Sex Assigned at BirthNot on fileLegal EzbHdrgzn66/15/2023 7:05 PM EDTGender IdentityNot on fileSexual OrientationNot on file Last Filed Vital Signs Vital SignReadingTime TakenCommentsBlood Xqkxacyk893/7610 8:58 AM EDT Gtiak283512/14/2024 8:58 AM OSUJcoygqzdrhk23.2 ??C (100.8 ??F)11/28/2024 2:25 PM EDTRespiratory Ouwm351502/29/2024 9:38 AM ESTOxygen Zuzpgcrcwg42%12/14/2024 8:58 AM EDTInhaled Oxygen Concentration--Apzngo41.7 kg (178 lb)12/29/2024 9:38 AM EST Ojvjmk064.2 cm (5' 7 )12/29/2024 9:38 AM ESTBody Mass Index27.8812/29/2024 9:38 AM EST Plan of Treatment DateTypeDepartmentCare Team (Latest Contact Info)Qmctuyqqngo79/29/2026 10:40 AM ESTProcedure Visit [facility] [address] [place] [address] Kenneth Clifton, DPM [address] [facility] [address] [place] [address] 03/22/2025 10:00 AM ESTOffice Visit [facility] [place] [address] [place] [address] Ole Yang MD [address] [place], [place] [address] 05/31/2025 10:30 AM EDTOffice Visit [facility] [place] [facility] [address] [place] [address] Teri Jo MD [address] [place] [address] Health MaintenanceDue DateLast DoneCommentsDiabetes: Retinopathy Screening 3Diabetes: Urine Protein Eyenruqhz07/01/1962COVID-19 Vaccine ( season), 01/01/2023, 12/10/2021, Additional history existsDiabetes: Hemoglobin A1C61, 06/06/2024Pneumococcal Vaccine: 65+ NqgnnVuekkqolf36/08/2020, 06/25/2018, 08/17/2007Influenza Vaccine Kfsbrrzvy76/23/2025, 11/26/2023, 11/26/2022, Additional history exists Procedures Procedure NamePriorityDate/TimeAssociated DiagnosisCommentsALL PRO BNPRoutine 12/29/2024 10:29 AM EST [facility] CMP (CMP) (FOR REMOTE [facility] USE)Rekrfuh2612/29/2024 10:29 AM EST CA ECHO DOPPLER TPVTHMYC12/31/2025 6:19 PM EDT POCT GLYCATED HEMOGLOBIN, IURERSptxqtj17/29/2025 10:19 AM EDT Type 2 diabetes mellitus with other specified complication, without long-term current use of insulin (HCC) WAKFcivizv43/07/2025 8:24 AM EDTT4, VFNPLbltaff72/07/2025 8:24 AM EDTT3, FREE Lnwezyf9011/22/2024 8:24 AM EDTBASIC METABOLIC OTYYEGiejyvd70/06/2025 8:03 AM EDT Hyperkalemia Chronic kidney disease, stage 3b (CMS-HCC) URINALYSIS, MANUAL CFZAWxvjpsy00/03/2025 5:00 PM EDT [facility] CMP (CMP) (FOR REMOTE [facility] USE)Mxknhvu1010/19/2024 8:25 AM EDT ALL CBC WITH AUTO KIJPHyxckym54/03/2025 8:25 AM EDT from Last 3 Months Results * (ABNORMAL) [facility] CMP (CMP) (FOR REMOTE [facility] USE) (12/29/2024 10:29 AM EST) Only the most recent of2 resultswithin the time period is included. ComponentValueRef RangeTest MethodAnalysis TimePerformed AtPathologist Signature NKSMKS940558 - 145 mmol/LTBHPOTASSIUM4.53.5 - 5.1 mmol/NUVWAKJMQZOA71555 - 107 mmol/LTBHCARBON QYMWKZM59.8(H)21.0 - 32.0 mmol/LTBHANION GAP10.5IVRGJKCACZ865(H) 74 - 106 mg/dLTBHBLOOD UREA VQIDZXNV93.0(H)7.0 - 18.0 mg/dLTBHCREATININE1.11(H) 0.55 - 1.02 mg/dLTBHTBH EGFR-AF TARHFDDM52(L)>=60 mL/min/1.73m 2TBHTBH EGFR-NON AF QUVMXPIM53(L)>=60 mL/min/1.73m 2TBHBUN CREATININE RATIO18.8UHTBVVAAVN75.08.5 - 10.1 mg/dLTBHBILIRUBIN TOTAL0.70.2 - 1.0 mg/dLTBHASPARTATE AMINO RPNZWAODOZI72 15 - 37 U/LTBHALANINE BEARBBKEFNDHGIGG5944 - 59 U/LTBHALKALINE YUPHECCVISR95907 - 116 U/LTBHTOTAL PROTEIN7.16.4 - 8.2 g/dLTBHALBUMIN LEVEL2.9(L)3.4 - 5.0 g/dL TBHGLOBULIN4.2g/dLTBHALBUMIN GLOBULIN RATIO0.7TBHSpecimen (Source)Anatomical Location / LateralityCollection Method / VolumeCollection TimeReceived Time 12/29/2024 10:29 AM EST12/29/2024 10:33 AM EST Narrative CLINISYNC - 12/29/2024 11:39 AM EST Authorizing ProviderResult TypeResult StatusGeneric External Data Provider CLINISYNCFinal ResultPerforming OrganizationAddressCity/State/ZIP CodePhone Number [facility] * (ABNORMAL) ALL PRO BNP (12/29/2024 10:29 AM EST)ComponentValueRef RangeTest MethodAnalysis TimePerformed AtPathologist SignatureNT PRO B TYPE NATRIURETIC PEPT3,884.0(HH)<=1,800.0 pg/mLTBHComment:RESULTS CALLED TO MILLA ALLISON at 1138Specimen (Source)Anatomical Location / LateralityCollection Method / VolumeCollection TimeReceived Time12/29/2024 10:29 AM EST12/29/2024 10:33 AM EST Narrative CLINISYWY - 12/29/2024 11:39 AM EST Authorizing ProviderResult TypeResult StatusGeneric External Data Provider CLINISYNCFinal ResultPerforming OrganizationAddressCity/State/ZIP CodePhone Number [place]IA[place]Y TB * CA ECHO DOPPLER COMPLETE (12/16/2024 6:19 PM EDT)Anatomical RegionLaterality ModalityOtherSpecimen (Source)Anatomical Location / LateralityCollection Method / VolumeCollection TimeReceived Time12/16/2024 6:19 PM EDT Narrative 12/16/2024 6:20 PM EDT [facility] ?[address] ? [place] [address] ? Cardiology Report ? Signed ? Patient: CASTLE,LLUVIA L ? MR#: [id number] ?? : 1940 ?Acct:[id number] ?? Age/Sex: 84 / F ?ADM Date: 12/16/25 ?? Loc: CARD ? Attending Dr: Eulogio Amaya BIOMETRIC FINGERPRINTING TECHNICIAN ? Ordering Physician: Eulogio Amaya NP ?? Date of Service: 12/16/24 ?? Procedure(s): CA echo doppler complete ?? Accession Number(s): [id number] ? cc: OLE YANG ; Eulogio Amaya NP ? Patient Name: ? LLUVIA MORENO ? MR#: [id number] ? : 1940 ? Exam Date: 12/16/2024 [...] 1820 ? DD/ 1819 ? TD/TT: ? Burn Crew Member: Procedure Note Radiology, Radiologist, MD - 12/16/[address] [address] Cardiology Report Signed Patient: LLUVIA MORENO LMR#: [id number] : 1940cct:[id number] Age/Sex: 84 / FADM Date: 12/16/24 Loc: CARD Attending Dr: Eulogio Amaya NP Ordering Physician: Eulogio Amaya NP Date of Service: 12/16/24 Procedure(s): CA echo doppler complete Accession Number(s): [id number] cc: OLE YANG ; Eulogio Amaya NP Patient Name: LLUVIA MORENO MR#: [id number] : 1940 Exam Date: 12/16/2024 Ordering Doctor: [...] RUDDY GIBSON Signed By:12/16/241819 DD/ 18 TD/TT: Burn Crew Member: Authorizing ProviderResult TypeResult StatusGeneric External Data Provider CLINISYNC IMAGINGFinal Result * POCT Glycated hemoglobin, total (12/14/2024 10:19 AM EDT)ComponentValueRef RangeTest MethodAnalysis TimePerformed AtPathologist SignatureHemoglobin A1C 5.8Specimen (Source)Anatomical Location / LateralityCollection Method / Volume Collection TimeReceived EgmjRhtvc99/29/2025 10:19 AM EDT Narrative Authorizing ProviderResult TypeResult Sarath Yang [facility] TEST ENTER/EDIT ORDERABLESFinal Result * T3, free (11/22/2024 8:24 AM EDT)Specimen (Source)Anatomical Location / LateralityCollection Method / VolumeCollection TimeReceived TimeBloodVenous blood specimen / Unknown Narrative Authorizing ProviderResult TypeResult StatusAshley Regional Medical Centerden Sandro ConnestaLAB BLOOD ORDERABLESFinal Result * TSH (11/22/2024 8:24 AM EDT)Specimen (Source)Anatomical Location / Laterality Collection Method / VolumeCollection TimeReceived TimeBloodVenous blood specimen / Unknown Narrative Authorizing ProviderResult TypeResult StatusAshley Regional Medical Centerden Sandro ConnestaLAB BLOOD ORDERABLESFinal Result * T4, free (11/22/2024 8:24 AM EDT)Specimen (Source)Anatomical Location / LateralityCollection Method / VolumeCollection TimeReceived TimeBloodVenous blood specimen / Unknown Narrative Authorizing ProviderResult TypeResult StatusAshley Regional Medical Centerd Sandro ConnestaLAB BLOOD ORDERABLESFinal Result * (ABNORMAL) Basic metabolic panel (11/21/2024 8:03 AM EDT)ComponentValueRef RangeTest MethodAnalysis TimePerformed AtPathologist AvwtfjrpmUbhunkn249(H)65 - 99 mg/dLQUESTComment: ? Fasting reference interval For someone without known diabetes, a glucose value >125 mg/dL indicates that they may have diabetes and this should be confirmed with a follow-up test. WYQ312 - 25 mg/dLQUESTCreatinine1.02(H)0.60 - 0.95 mg/fSXSWHNUWIA83(L)> OR = 60 mL/min/1.27x5IHBOZIBA/CREATININE HIBCN464 - 22 (calc)YEVUYTjmzeq810520 - 146 mmol/LQUESTPotassium, Bld4.53.5 - 5.3 mmol/DAYQMOGhcuvxlz26130 - 110 mmol/LQUEST Carbon Mdoxfzg27(H)20 - 32 mmol/LQUESTCalcium9.48.6 - 10.4 mg/dLQUESTSpecimen (Source)Anatomical Location / LateralityCollection Method / VolumeCollection TimeReceived TimeBloodVenous blood specimen / Mkrhuxg3511/21/2024 8:03 AM EDT 11/21/2024 2:45 PM EDT Narrative Resulting Agency Comment Performing Organization Information ?Site ID: [id number] ?[email or web address] ?Address: [address] [place] [id number] ?Director: Priyanka Nazario Authorizing ProviderResult TypeResult StatusDipti Wolf PAL BLOOD ORDERABLESFinal ResultPerforming OrganizationAddressCity/State/ZIP CodePhone Number QUEST * (ABNORMAL) Urinalysis, manual only (10/19/2024 5:00 PM EDT)ComponentValueRef RangeTest MethodAnalysis TimePerformed AtPathologist SignatureCOLORYellow YellowPROMEDICATURBIDITYClearClearPROMEDICASPECIFIC GRAVITY1.0151.003 - 1.035 NAPROMEDICANITRITENegativeNegativePROMEDICAPH, URINE6.05.0 - 8.5 [place] LEUKOCYTE ESTERASENegativeNegativePROMEDICAPROTEINNegativeNegativePROMEDICA KETONES (URINE)Trace(A)NegativePROMEDICAUROBILINOGEN1.0 eu/dL0.2 eu/dL, 1.0 eu/dLPROMEDICABILIRUBIN (URINE)NegativeNegativePROMEDICABLOOD/HGBNegative NegativePROMEDICAGLUCOSE (URINE)NegativeNegative, 250 mg/dLPROMEDICAComment: ?? PERFORMED AT [address] [place] [address] Specimen (Source)Anatomical Location / LateralityCollection Method / Volume Collection TimeReceived Time10/19/2024 5:00 PM EDT10/19/2024 7:24 PM EDT Narrative Authorizing ProviderResult TypeResult StatusDaniziggy DORAN URINE ORDERABLESFinal ResultPerforming OrganizationAddressCity/State/ZIP CodePhone Number [place] * (ABNORMAL) ALL CBC WITH AUTO DIFF (10/19/2024 8:25 AM EDT)ComponentValueRef RangeTest MethodAnalysis TimePerformed AtPathologist SignatureTBH WBC9.44.0 - 11.0 10 3/uLTBHTBH RBC4.244.20 - 5.40 10 6/uLTBHTBH HGB11.9(L)12.0 - 16.0 g/dL TBHTBH HCT38.936.0 - 48.0 %TBHTBH MCV91.781.0 - 99.0 fLTBHTBH MCH28.126.7 - 34.0 pgTBHTBH MCHC30.629.9 - 35.2 g/dLTBHTBH RDW14.511.0 - 15.0 %TBHTBH TRQ223 150 - 450 10 3/uLTBHTBH MPV9.59.5 - [...] Result Performing OrganizationAddressCity/State/ZIP CodePhone Number [facility] from Last 3 Months Insurance Advance Directives TypeDate RecordedPatient RepresentativeExplanationPower of Attorney02/25/2024 12:18 PMHealthcare Power of Delivery Clerk Care Teams Team MemberRelationshipSpecialtyStart DateEnd Ole Yang MD [address] [facility] [address] [place] [address] PCP - ACO Reach07/10/22 Ole Yang MD [address] [facility] [address] [place], [place] [address] PCP - GeneralInternal Medicine07/28/22 Edna Alcantara LPN 112 [facility] 110 [place] [address] 05/06/24
--- OUTSIDE RECORDS SUMMARY | 2025-01-11 08:06 | XMS_ITS | Encounter Summary ---
Author Organization [facility] Address [address] [place] [address] Care Team Providers Care Purchasing Specialist Name Role Phone Ole Yang MD Unavailable [phone] Ole Yang MD Primary Care Provider Edna Alcantara LPN Unavailable Encounter Details DateTypeDepartmentCare Team (Latest Contact Info)Lvorqatnhex50/13/2025Clinisync Result Encounter [facility] External Department Unsolicited Provider, Generic External Data Social History Tobacco UseTypesPacks/DayYears UsedDateSmoking Tobacco: NeverSmokeless Tobacco: NeverAlcohol UseStandard Drinks/WeekCommentsNever0 (1 standard drink = 0.6 oz pure alcohol)B1300 Health LiteracyAnswerDate RecordedHow often do you need to have someone help you when you read instructions, pamphlets, or other written material from your doctor or pharmacy?Dmttmrdxk61/16/2025Humiliation, Afraid, Rape, and Kick questionnaireAnswerDate RecordedWithin the [...] relatives?Twice a week06/01/2024How often do you attend taoist or zoroastrian services?Never06/01/2024Do you belong to any clubs or organizations such as taoist groups, unions, fraternal or athletic groups, or school groups?No06/01/2024How often do you attend meetings of the clubs or organizations you belong to?Never06/01/2024re you , , , , never , or living with a partner?Afuhcth7506/01/2024 AUDIT-CAnswerDate RecordedQ1: How often do you have [...] very hard 06/01/2024PHQ-2AnswerDate RecordedPatient Health Questionnaire-2 Score0 11/08/2024[facility] [place] [facility] - Occupational Stress QuestionnaireAnswerDate [...] or living in a mcfp (including now)? No06/01/2024CommentsUnknownSex and Gender InformationValueDate Recorded Sex Assigned at BirthNot on fileLegal YndLwbfxy60/15/2023 7:05 PM EDTGender IdentityNot on fileSexual OrientationNot on filedocumented as of this encounter Plan of Treatment DateTypeDepartmentCare Team (Latest Contact Info)Qaxlvjurpwi23/29/2026 10:40 AM ESTProcedure Visit [facility] [address] [facility] [address] [place] [address] Kenneth Clifton DPM 3[address] [facility] [address] [place] [address] 03/22/2025 10:00 AM ESTOffice Visit [facility] [address] [facility] [address] [place] [address] Ole Yang MD [address] [facility] [address] [place], [place] [address] 05/31/2025 10:30 AM EDTOffice Visit [facility] [place] [facility] [address] [place] [address] Teri Jo MD [address] [place] [address] documented as of this encounter Procedures Procedure NamePriorityDate/TimeAssociated DiagnosisCommentsCCF CMP (CMP) (FOR REMOTE [facility] USE)Steinsm7112/29/2024 10:29 AM EST ALL PRO OJSQalmpxl62/13/2025 10:29 AM EST documented in this encounter Results * (ABNORMAL) ALL PRO BNP (12/29/2024 10:29 AM EST)ComponentValueRef RangeTest MethodAnalysis TimePerformed AtPathologist SignatureNT PRO B TYPE NATRIURETIC PEPT3,884.0(HH)<=1,800.0 pg/mLTBHComment:RESULTS CALLED TO MILLA ALLISON at 1138Specimen (Source)Anatomical Location / LateralityCollection Method / VolumeCollection TimeReceived Time12/29/2024 10:29 AM EST12/29/2024 10:33 AM EST Narrative [facility] - 12/29/2024 11:39 AM EST Authorizing ProviderResult TypeResult StatusGeneric External Data Provider CLINISYNCFinal ResultPerforming OrganizationAddressCity/State/ZIP CodePhone Number [facility] TB * (ABNORMAL) CCF CMP (CMP) (FOR REMOTE [facility] USE) (12/29/2024 10:29 AM EST) ComponentValueRef RangeTest MethodAnalysis TimePerformed AtPathologist SxzllkxgaMYSRPY105322 - 145 mmol/LTBHPOTASSIUM4.53.5 - 5.1 mmol/LTBHCHLORIDE 99499 - 107 mmol/LTBHCARBON MMQBORU11.8(H)21.0 - 32.0 mmol/LTBHANION GAP10.7 OPYFVSDAZZ067(H)74 - 106 mg/dLTBHBLOOD UREA EWBKGLOC33.0(H)7.0 - 18.0 mg/dLTBH CREATININE1.11(H)0.55 - 1.02 mg/dLTBHTBH EGFR-AF MKWKYRFI41(L)>=60 mL/min/1.73m 2TBHTBH EGFR-NON AF DHWFKCGY64(L)>=60 mL/min/1.73m 2TBHBUN CREATININE RATIO18.0GUWBZYWVBH38.08.5 - 10.1 mg/dLTBHBILIRUBIN TOTAL0.70.2 - 1.0 mg/dLTBHASPARTATE AMINO IGCUKOHQPMU1059 - 37 U/LTBHALANINE FRHMRDZEQVEMWYKL0557 - 59 U/LTBHALKALINE HSDMVQETOKK97665 - 116 U/LTBHTOTAL PROTEIN7.16.4 - 8.2 g/dLTBHALBUMIN LEVEL2.9(L)3.4 - 5.0 g/dLTBHGLOBULIN4.2g/dL TBHALBUMIN GLOBULIN RATIO0.7TBHSpecimen (Source)Anatomical Location / LateralityCollection Method / VolumeCollection TimeReceived Time12/29/2024 10:29 AM EST12/29/2024 10:33 AM EST Narrative [facility] - 12/29/2024 11:39 AM EST Authorizing ProviderResult TypeResult StatusGeneric External Data Provider CLINISYNCFinal ResultPerforming OrganizationAddressCity/State/ZIP CodePhone Number [facility] documented in this encounter Visit Diagnoses Not on filedocumented in this encounter Additional Health Concerns AssessmentNoted TimePHQ-9 Depression Total Score: 1304 9:00 AM EDT documented as of this encounter Care Teams Team MemberRelationshipSpecialtyStart DateEnd Ole Yang MD [address] [facility] [address] [place], [place] [address] PCP - ACO Reach07/10/22 Ole Yang MD [address] [facility] [address] [place] [address] PCP - GeneralInternal Medicine07/28/22 Edna Alcantara LPN [address] [facility] [address] [place] [address] 05/06/24documented as of this encounter
--- OUTSIDE RECORDS SUMMARY | 2025-01-11 08:06 | XMS_ITS | Encounter Summary ---
Author Organization [facility] Address [address] [place] [address] Care Team Providers Care Bilingual Inside Sales Representative Name Role Phone Ole Yang MD Unavailable [phone] Ole Yang MD Primary Care Provider [phone] Edna Alcantara LPN Unavailable Encounter Details DateTypeDepartmentCare Team (Latest Contact Info)Rpvczvqpkyn89/12/2025Telephone [facility] [address] [facility] 110 [place] [address] Ole Yang MD [address] [facility] 110 [place] [address] Social History Tobacco UseTypesPacks/DayYears UsedDateSmoking Tobacco: NeverSmokeless Tobacco: NeverAlcohol UseStandard Drinks/WeekCommentsNever0 (1 standard drink = 0.6 oz pure alcohol)B1300 Health LiteracyAnswerDate RecordedHow often do you need to have someone help you when you read instructions, pamphlets, or other written material from your doctor or pharmacy?Lzytoajvz34/16/2025Humiliation, Afraid, Rape, and Kick questionnaireAnswerDate RecordedWithin the [...] relatives?Twice a week06/01/2024How often do you attend roman catholic or congregational services?Never06/01/2024Do you belong to any clubs or organizations such as roman catholic groups, unions, fraternal or athletic groups, or school groups?No06/01/2024How often do you attend meetings of the clubs or organizations you belong to?Never06/01/2024re you , , , , never , or living with a partner?Zothcla2606/01/2024 AUDIT-CAnswerDate RecordedQ1: How often do you have [...] 06/01/2024PHQ-2AnswerDate RecordedPatient Health Questionnaire-2 Score0 11/08/2024[facility] [place] of Occupational Health - Occupational Stress QuestionnaireAnswerDate [...] Recorded Sex Assigned at BirthNot on fileLegal VouEsthlk45/15/2023 7:05 PM EDTGender IdentityNot on fileSexual OrientationNot on filedocumented as of this encounter Miscellaneous Notes * Telephone Encounter - MIGUELINA RANKIN - 11/27/2024 9:19 PM EDT Spoke with Dr Domingo on the phone to give clarification on what is going on and he stated that she can take a metoprolol and then if concern or still to high then go to the ER. Dr. Domingo She should probably go to the ER. At this late time, even an extra dose of metoprolol will take time to kick in. RA They can monitor her and draw labs * Telephone Encounter - MIGUELINA RANKIN - 11/27/2024 8:12 PM EDT Patient and her daughter called and stated that she has had some issues with her BP the last few days. Yesterday night: 800pm - 180/100 in both arms 830 pm yesterday 152/92 This morning 168/95 653 pm 184/109 and then 802pm 205/116 Patient does not have any symptoms at this time just concern about her blood pressure reading. Secure chat sent to food preservation scientist provider documented in this encounter Plan of Treatment DateTypeDepartmentCare Team (Latest Contact Info)Grkyahrkhzx93/29/2026 10:40 AM ESTProcedure Visit [facility] [address] [place] [address] [place] [phone] Kenneth Clifton, DPM 3[address] [facility] [address] [place] [id number] 03/22/2025 10:00 AM ESTOffice Visit [facility] [address] [place] [address] [place] [address] Ole Yang MD [address] [facility] [address] [place] [address] 05/31/2025 10:30 AM EDTOffice Visit [facility] [place] [facility] [address] [place] [address] Teri Jo MD [address] [place] [address] documented as of this encounter Visit Diagnoses Not on filedocumented in this encounter Additional Health Concerns AssessmentNoted TimePHQ-9 Depression Total Score: 1304 9:00 AM EDT documented as of this encounter Care Teams Team MemberRelationshipSpecialtyStart DateEnd Date Ole Yang MD [address] [facility] [address] [place] [address] PCP - ACO Reach07/10/22 Ole Yang MD [address] [place] [address] [place] [address] PCP - GeneralInternal Medicine07/28/22 Edna Alcantara LPN [address] [place] [address] 05/06/24documented as of this encounter
--- OUTSIDE RECORDS SUMMARY | 2025-01-11 08:06 | XMS_ITS | Clinical Summary ---
Author Organization [employer] tem Address [id number] [address] [place] [address] Care Team Providers Care Oncology Account Specialist Name Role Phone Ole Yang MD Primary Care Provider [phone] Allergies No known active allergies Medications MedicationSigDispense QuantityRefillsLast FilledStart DateEnd DateStatus cholecalciferol, vitamin D3, 10 mcg (400 unit) capsule 1 (one) time each day at the same time.Active multivitamin,vu-ikvg-Ue-FA-min 27-0.4 mg tablet 1 (one) time each day at the same time.Active ELIQUIS 5 mg tablet 05/28/2022ctive aspirin 81 mg daily.Active atorvastatin (LIPITOR) 80 mg tablet 08/03/2022ctive bumetanide (BUMEX) 1 mg tablet as needed.Active calcium carbonate-vitamin D3 600 mg(1,500mg) -200 units per tablet 1 (one) time each day at the same time.Active LORazepam (ATIVAN) 0.5 mg tablet lorazepam 0.5 mg auskcq6908/21/2021ctive lovastatin (MEVACOR) 40 mg tablet lovastatin 40 [...] Problems No known active problems Encounters DateTypeDepartmentCare PngaQzpwsmausou95/03/2025Lab Requisition [facility] [address] [place] [address] Ole Yang MD Altered mental status, unspecifiedfrom Last 3 Months Family History Medical HistoryRelationNameCommentsCataractsMotherRelationNameStatusComments Mother Social History Tobacco UseTypesPacks/DayYears UsedDateSmoking Tobacco: NeverSmokeless Tobacco: Never Tobacco Cessation:Counseling Given: Not Answered CommentsUnknownSex and Gender InformationValueDate RecordedSex Assigned at BirthNot on fileLegal TyeWzmsjd21/15/2023 10:11 AM EDTGender IdentityNot on fileSexual OrientationNot on file Last Filed Vital Signs Vital SignReadingTime TakenCommentsBlood Kjzsruuz224/7410 9:33 AM EDT Ouxfz509712/03/2022 9:33 AM EDTTemperature--Respiratory Tigd1368 2:11 PM EDTOxygen Rodqvssdyn51%09/11/2022 2:11 PM EDTInhaled Oxygen Concentration-- Yvdesr39.7 kg (178 lb)12/03/2022 9:33 AM MCXJuwkux676.2 cm (5' 7 )12/03/2022 9:33 AM EDTBody Mass Index27.8812/03/2022 9:33 AM EDT Plan of Treatment Health MaintenanceDue DateLast DoneCommentsDepression Duotlmeao04[birth year]01/1953 DTaP,Tdap and Td Vaccines (1 - Tdap)1961Fall Risk Fphcsgewv02/01/2008 Tobacco Fhohokxgl47/12/723198/4COVID-19 Vaccine ( season) /, 12/10/2021, 02/03/2021, Additional history existsInfluenza Zyhyowk22/12/2022, 12/10/2021, 01/17/2021, Additional history exists RSV ( or age 60+ yrs)Wpordexuq93/25/2023Zoster (Shingles) Vaccine Hhtsjhuav43/16/2023, 04/16/2022 Medical Devices ImplantedTypeAreaManufacturerDevice IdentifierShelf Expiration DateModel / Serial / LotIcdICDBoston [id number] / [id number] / Procedures Procedure NamePriorityDate/TimeAssociated DiagnosisCommentsURINALYSISRoutine 10/19/2024 5:00 PM EDT Altered mental status, unspecified from Last 3 Months Results * (ABNORMAL) Urinalysis (10/19/2024 5:00 PM EDT)ComponentValueRef RangeTest MethodAnalysis TimePerformed AtPathologist SignatureCOLORYellowYellow 10/19/2024 7:52 PM EDTPBLUFFTON HOSPITALTURBIDITYClearClear 10/19/2024 7:52 PM EDTPMERCER COUNTY COMMUNITY HOSPITALPECIFIC GRAVITY1.015 1.003 - 1.14161 7:52 PM EDTPBLUFFTON HOSPITALNITRITE YblvrklmVpmwfaon15/03/2025 7:52 PM EDTPBLUFFTON HOSPITAL PH,URINE6.05.0 - 8.509 7:52 PM EDTPBLUFFTON HOSPITAL LEUKOCYTE XWUTCMZWOejysdytTkjrblmc88/03/2025 7:52 PM EDTPBLUFFTON HOSPITALPROTEINNegativeNegative10/19/2024 7:52 PM EDTPBLUFFTON HOSPITALKETONES (URINE)Trace(A)Ytyhhiyd32/03/2025 7:52 PM EDT [facility] HOSPITALUROBILINOGEN1.0 eu/dL0.2 eu/dL, 1.0 eu/dL 10/19/2024 7:52 PM EDTPBLUFFTON HOSPITALBILIRUBIN (URINE) ShpneffoRznizgfl25/03/2025 7:52 PM EDTPBLUFFTON HOSPITAL BLOOD/CBNXijadlyqUqkrydca23/03/2025 7:52 PM EDTPBLUFFTON HOSPITALGLUCOSE (URINE)NegativeNegative, 250 mg/dL10/19/2024 7:52 PM EDT [facility] SYSTEMpecimen (Source)Anatomical Location / LateralityCollection Method / VolumeCollection TimeReceived TimeUrine (Other) 10/19/2024 5:00 PM EDT10/19/2024 7:24 PM EDT Narrative Authorizing ProviderResult TypeResult StatusDaniziggy MONTALVO ORDERABLES Final ResultPerforming OrganizationAddressCity/State/ZIP CodePhone Number [facility] [address] [place] [address], from Last 3 Months Insurance Care Teams Team MemberRelationshipSpecialtyStart DateEnd Date Ole Yang MD [address] [facility] 110 [place] [address] PCP - GeneralInternal Medicine08/13/22
--- OUTSIDE RECORDS SUMMARY | 2025-01-11 08:06 | XMS_ITS | Encounter Summary ---
Author Organization [facility] Address [address] [place] [address] Care Team Providers Care Director Of Placement Name Role Phone Ole Yang MD Primary Care Provider [phone] Encounter Details DateTypeDepartmentCare Team (Latest Contact Info)Xwzpzkglohj95/20/2025Orders Only [facility] [address] [place] [address] Valarie Laguerre MA Edema, unspecified type (Primary Dx) Social History Tobacco UseTypesPacks/DayYears UsedDateSmoking Tobacco: NeverSmokeless Tobacco: NeverAlcohol UseStandard Drinks/WeekCommentsNot Currently0 (1 standard drink = 0.6 oz pure alcohol)UT Safety & EnvironmentAnswerDate RecordedFear of Current or Ex-PartnerNot on file04/09/2023Emotionally AbusedNot on file04/09/2023hysically AbusedNot on file04/09/2023Sexually AbusedNot on file04/09/2023hysically or Sexually AbusedNot on file04/09/2023CommentsUnknownSex and Gender InformationValueDate RecordedSex Assigned at KhornSgoqdp60/23/2025 11:40 AM EDT Legal PveFjrwjd26/29/2022 11:46 PM EDTGender EfksgoppRlgzmu58/23/2025 11:40 AM EDTSexual OrientationChoose not to hlyioxfl42/14/2025 9:44 PM EDTdocumented as of this encounter Plan of Treatment DateTypeDepartmentCare Team (Latest Contact Info)Fgsulgggwpj77/29/2025 2:40 PM ESTOffice Visit [facility] [address] [place] [address] Eulogio Wahl, HAIRSPRING II INSPECTOR [address] [place] [address] NameTypePriorityAssociated DiagnosesOrder ScheduleBasic metabolic panelLab Routine Edema, unspecified type Expected: 01/05/2025 (Approximate), Expires: 01/05/2026documented as of this encounter Visit Diagnoses Diagnosis Edema, unspecified type- Primary documented in this encounter Care Teams Team MemberRelationshipSpecialtyStart DateEnd Date Ole Yang MD 112 [facility] [address] [place] [address] PCP - General10/07/21documented as of this encounter
--- OUTSIDE RECORDS SUMMARY | 2025-01-11 08:06 | XMS_ITS | Clinical Summary ---
Author Organization [facility] Address [address] [place] [address] Care Team Providers Care Automotive Accessory Installer Name Role Phone Ole Yang MD Primary Care Provider [phone] Allergies Active AllergyReactionsCriticalityNoted DateCommentsLorazepamHallucinationsHigh 11/08/20242804QlzrwmsmclgvctYmgqzEtxnrr63/23/2025 Hyperkalemia Medications MedicationSigDispense QuantityRefillsLast FilledStart DateEnd DateStatus [...] Additional Information Patient not taking.Reported on 12/12/2024 vkgxocczad-lwdnkmpn-xdndwkbnhi (Breztri Aerosphere) 160-9-4.8 mcg/actuation HFA aerosol inhaler Inhale.Active lisinopril 2.5 mg tablet Take 1 tablet (2.5 mg) by mouth in the morning. 30 tablet 11103/27/2023ctive Additional Information Patient not taking.Reported on 12/12/2024 albuterol 90 mcg/actuation inhaler inhale 2 puffs every 4 (four) hours if needed for ouyyerdt80/10/2024ctive Rexulti 0.5 mg tablet Take 0.25 mg by mouth in the morning.Active melatonin 5 mg tablet Take 5 mg by mouth at bedtime.5Active amLODIPine (Norvasc) 5 mg tablet Indications:Essential hypertension,Coronary artery disease involving petersburg coronary artery of petersburg heart without angina pectorisTake 1 tablet (5 mg) by mouth once daily as directed. 90 tablet 6Active amLODIPine (Norvasc) 2.5 mg tablet Take 2.5 mg by mouth in the morning.Discontinued Active Problems ProblemNoted DateDiagnosed DateAcute /24/2025ute hyperkalemia 12/09/2024KI (acute kidney injury)12/09/2024nxiety and rkhlmawgbv34/24/2025 Concentration ckabwbg2812/09/2024Family history of sbizgzic46/24/2025Homicidal inqcksdyb16/24/2025Mild neurocognitive opydjefu21/24/2025Other insomnia 12/09/2024Suicidal yjpcsthp72/24/2025Word finding xmqzzgscev66/24/2025Essential elwnifvxbixd62/26/2025Pure wwbkgdgodvijtmwvsxfj07/26/2025Trouble in sleeping 07/07/2024hronic kidney disease, stage 3b02/25/2024Supplemental oxygen /09/0568Xiiwnbu31/10/2024yspnea on kdtthumn19/21/2024ardiomyopathy 4Chronic a-fib08/07/2023Memory urtrymy6805/27/2023urrent use of fci slaugcbdvqmynff03/27/2023ge-related osteoporosis without current pathological mhqedrze84hronic systolic dysfunction of left hcdnjemju69iplopiaFrequent falls Impaired fasting bikvskz01Mild episode of recurrent major depressive sykppsbn78Overweight (BMI 25.0-29.9)Rotator cuff syndrome of right bmpeodhw57/12/2023 12/30/2022hronic combined systolic and diastolic heart coqkiqo5707/28/2022 Systolic heart agallft5707/24/2021 Assessment & Plan (07/08/2023 11:11 AM EDT): [facility], currently appears euvolemic and weight [...] after testing Status post biventricular cardiac pacemaker cgmmdokvn37/13/2021levated liver jhaninw8508/24/2020anlobular buabbnmej22/01/2021 Assessment & Plan (07/08/2023 11:16 AM EDT): If cardiac studies are without any acute concerns she may need to F/U with pulmonary for evaluationof CLAIRE History of stroke without residual bzinzmkp58/08/3525Bshypkprglmtjju37/08/2019 Chronic obstructive pulmonary ccmlfss9606/11/2017Inflammation of joint of right shoulder fmmaus2809/22/2016Mild intermittent hextal4809/12/2016Pulmonary function studies daqtuqsq95/28/2017Tear of right rotator cuff09/12/2016Internal derangement of right urwspuzk21/20/2017Primary /20/2017Primary ovarian uagphbu3708/05/2016Non-rheumatic mitral ljozchuhihojb38/20/2017 Assessment & Plan (07/08/2023 11:12 AM EDT): Repeat echocardiogram to assess MR in light of worsening CLAIRE Atherosclerosis of coronary artery without angina mdhfoamb50 Assessment & Plan (07/08/2023 11:14 AM EDT): Lexiscan stress test to assess cardiac perfusion for any significant defect that would warrant a cardiac cath with possible PCI for concerning stenosis Continue GDMT- ASA, lipitor toprol Inguinal pain10/04/20157396Zidcent33/08/2016Cerebrovascular uzjebdfg34/08/2016 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 Continue lisinopril, toprol and aldactone Persistent atrial yzfahurvgbip87/08/2016 Assessment & Plan (07/08/2023 11:11 AM EDT): Remains on eliquis without any bleeding tendencies S/P AV node ablation and FIRST AID ATTENDANT-D is 98% Bi-V pacing per device interrogation Resolved Problems ProblemNoted DateDiagnosed DateResolved DateICD (implantable cardioverter- defibrillator) in place//10/2023 Assessment & Plan (07/08/2023 11:15 AM EDT): Device interrogations reviewed Device check q 6 months Mitral valve khtovabhqjxeh48 Encounters DateTypeDepartmentCare ThkaPkcruogpxnl52/20/2025Orders Only [facility] [address] [place] [address] Valarie Laguerre MA Edema, unspecified type (Primary Dx)12/29/2024Telephone [facility] [address] [place] [facility] [place] [address] Valarie Laguerre MA 12/23/2024 10:30 AM ESTAncillary Procedure [facility] [address] [facility] [place] [address] Pre-operative cardiovascular examination, ICD in place12/23/2024Orders Only [facility] [address] [place] [address] Soni Nowak MD 12/19/2024Telephone [facility] [address] [place] [facility] [place] [address] Ann Marie Del Valle MA 12/19/2024Telephone [facility] [address] [place] [facility] [place] [address] Ann Marie Del Valle MA 12/14/2024Orders Only [facility] [address] [place] [facility] [place] [address] Ann Marie Del Valle MA Abnormal laboratory test (Primary Dx)12/13/2024Refill [facility] [address] [place] [facility] [place] [place] [address] Ann Marie Del Valle MA 12/13/2024Orders Only [facility] [address] [place] [address] Ann Marie Del Valle MA Essential hypertension (Primary Dx); Coronary artery disease involving petersburg coronary artery of p[place] heart without angina cfunwewk57/27/2025 3:40 PM EDTOffice Visit [facility] [address] [place] [facility] [place] [address] Eulogio Wahl CNP Acute on chronic heart failure with preserved ejection fraction (CMS/HCC) (Primary Dx); Dilated cardiomyopathy (CMS/HCC); Dyspnea on exertion; Atherosclerosis of petersburg coronary artery of petersburg heart without angina pectoris; Chronic a-fib (CMS/HCC); Status post biventricular cardiac pacemaker insertion; Chronic kidney disease, stage 3b (CMS/HCC); Hyperthyroidism; Benign hypertensive heart disease with heart failure (CMS/HCC); ICD (implantable cardioverter-defibrillator) in place; Bilateral lower extremity edema12/12/2024Telephone [facility] [address] [place] [facility] [place] [address] Ann Marie Del Valle MA 11/22/2024 10:45 AM EDTAncillary Procedure [facility] [address] [place] [address] Pre-operative cardiovascular examination, ICD in place11/22/2024Orders Only [facility] [address] [place] [address] Keanu Islas MD 11/07/2024 10:15 AM EDTAncillary Procedure [facility] [address] [place] [address] Pre-operative cardiovascular examination, ICD in place11/05/2024Orders Only [facility] [address] [place] [address] Keanu Islas MD from Last 3 Months Immunizations ImmunizationAdministration DatesNext DueInfluenza, High Dose Seasonal, Preservative Free01/17/2021,12/02/2017,12/11/2016Influenza, injectable, wmfzzvvauoai91/21/2014Influenza, injectable, quadrivalent, preservative free 11/13/2014Influenza, seasonal, fnprqzmgha80/24/2013Influenza, trivalent, lxrasawteu28/24/2020,11/25/2018Moderna 12 YR UP Vaccine BiValent Booster 02/03/2021,04/24/2020,1Pneumococcal Conjugate PCV 13006/25/2018 Pneumococcal Polysaccharide ZSS609802/23/2019,08/17/2007 Family History Medical HistoryRelationNameCommentsCoronary artery diseaseBrotherHypertension BrotherKidney [...] file04/09/2023CommentsUnknownSex and Gender InformationValueDate RecordedSex Assigned at NumohQzyyoq73/23/2025 11:40 AM EDT Legal IrbEzpkqb26/29/2022 11:46 PM EDTGender GmiwrsneItunes60/23/2025 11:40 AM EDTSexual OrientationChoose not to ckhlztze36/14/2025 9:44 PM EDT Last Filed Vital Signs Vital SignReadingTime TakenCommentsBlood Nfuvljuz300/8410 3:30 PM EDT Hnens562512/12/2024 3:30 PM EDTTemperature--Respiratory Aiin119307/08/2023 10:10 AM EDTOxygen Guydnygmwn62%12/12/2024 3:30 PM EDTInhaled Oxygen Concentration-- Ftaiye50.2 kg (179 lb)12/12/2024 3:30 PM OREDwxxbb971.2 cm (5' 7 )12/12/2024 3:30 PM EDTBody Mass Index28.041 3:30 PM EDT Plan of Treatment DateTypeDepartmentCare Team (Latest Contact Info)Bynfriqjlgu84/29/2025 2:40 PM ESTOffice Visit [facility] [address] [place] [phone] Eulogio Wahl, ACTIVITY ASSISTANT [address] [place] [address] Health MaintenanceDue DateLast DoneCommentsMedicare Annual Wellness (AWV) 3Diabetes: Retinopathy Pylbysrug26/01/1953epression Screening 1954Diabetes: Urine Protein Qharmzgns41/01/1962dult Ncqpdhw0708/16/1964Fall Risk Gslcescfh91/01/2008Diabetes: Hemoglobin A1C09/05/413100/OVID-19 Vaccine ( season)/, 01/01/2023, 12/10/2021, Additional history existsInfluenza Vaccine (#1)/11/2023, 11/26/2022, 12/10/2021, Additional history existsPneumococcal Vaccine: 50+ YearsCompleted 02/23/2019, 06/25/2018, 08/17/2007Zoster CexjaywjPieciorla99/16/2023, 04/16/2022 HIB VaccinesAged OutNo longer eligible based [...] ImplantedTypeAreaManufacturerDevice IdentifierShelf Expiration DateModel / Serial / [id number] Vigilant X4 Upward Bound Director-D [id number] Implanted:08/21/2021 (Quantity not on file)FIRST AID ATTENDANT-D [id number] VIGILANT X4 FIRST AID ATTENDANT-D / [id number] / [id number] [employer]kinson 4-Front S [id number] Implanted:08/21/2021 (Quantity not on file)[id number] RELIANCE 4-FRONT S / [id number] / [id number] Acuity X4 Straight [id number] Implanted:08/21/2021 (Quantity not on file)[id number] ACUITY X4 STRAIGHT / [id number] / Procedures Procedure NamePriorityDate/TimeAssociated DiagnosisCommentsCARDIAC DEVICE CHECK CHECK - BZQWQOFzuilbu61/11/2025 9:24 AM EST Pre-operative cardiovascular examination, ICD in place CARDIAC DEVICE CHECK - REMOTE ALERT - JIKRxwbhgj27/07/2025 12:00 AM ESTCARDIAC DEVICE CHECK CHECK - HRBDAIQmwdcqf82/13/2025 10:02 AM EDT Pre-operative cardiovascular examination, ICD in place CARDIAC DEVICE CHECK - REMOTE ALERT - SEYXumhhaq86/07/2025 12:00 AM EDTCARDIAC DEVICE CHECK CHECK - EYCCIYXgtzydx74/24/2025 1:36 PM EDT Pre-operative cardiovascular examination, ICD in place CARDIAC DEVICE CHECK - REMOTE - LFIVjzdynk52/20/2025 12:00 AM EDTfrom Last 3 Months Results * CARDIAC DEVICE CHECK - REMOTE ALERT - ICD (12/27/2024 9:24 AM EST) Only the most recent of3 resultswithin the time period is included. Specimen (Source)Anatomical Location / LateralityCollection Method / Volume Collection TimeReceived Time Narrative Authorizing ProviderResult TypeResult StatusKeanu Islas [facility]PL[place]ABLE CARDIAC DEVICE PROCEDURESFinal ResultPerforming OrganizationAddressCity/State/ZIP Code Phone Number CPACS * Cardiac device check - Remote alert ICD (12/23/2024 12:00 AM EST) Only the most recent of2 resultswithin the time period is included. Anatomical RegionLateralityModalityOtherSpecimen (Source)Anatomical Location / LateralityCollection Method / VolumeCollection TimeReceived Time12/23/2024 Narrative Authorizing ProviderResult TypeResult StatusSoni Nowak [facility] IMPLANTABLE CARDIAC DEVICE PROCEDURESFinal Result * Cardiac device check - Remote ICD (11/05/2024 12:00 AM EDT)Anatomical Region LateralityModalityOtherSpecimen (Source)Anatomical Location / Laterality Collection Method / VolumeCollection TimeReceived Time11/05/2024 Narrative Authorizing ProviderResult TypeResult StatusPamago Islas MDCV IMPLANTABLE CARDIAC DEVICE PROCEDURESFinal Result from Last 3 Months Insurance Care Teams Team MemberRelationshipSpecialtyStart DateEnd Ole Pratt MD [address] [facility] [address] [place] [address] [facility]10/07/21
--- OUTSIDE RECORDS SUMMARY | 2025-01-11 08:06 | XMS_ITS | Encounter Summary ---
Author Organization [facility] Address [address] [place] [address] Care Team Providers Care Carbon Paper Coating Machine Setter Name Role Phone Ole Yang MD Unavailable [phone] Ole Yang MD Primary Care Provider [phone] Edna Alcantara LPN Unavailable Encounter Details DateTypeDepartmentCare Team (Latest Contact Info)Qszveuqvpld79/12/2025Travel Social History Tobacco UseTypesPacks/DayYears UsedDateSmoking Tobacco: NeverSmokeless Tobacco: NeverAlcohol UseStandard Drinks/WeekCommentsNever0 (1 standard drink = 0.6 oz pure alcohol)B1300 Health LiteracyAnswerDate RecordedHow often do you need to have someone help you when you read instructions, pamphlets, or other written material from your doctor or pharmacy?Rrsdcznho45/16/2025Humiliation, Afraid, Rape, and Kick questionnaireAnswerDate RecordedWithin the [...] relatives?Twice a week06/01/2024How often do you attend nondenominational or latter-day services?Never06/01/2024Do you belong to any clubs or organizations such as nondenominational groups, unions, fraternal or athletic groups, or school groups?No06/01/2024How often do you attend meetings of the clubs or organizations you belong to?Never06/01/2024re you , , , , never , or living with a partner?Uybbjmd2606/01/2024 AUDIT-CAnswerDate RecordedQ1: How often do you have [...] RecordedPatient Health Questionnaire-2 Score0 11/08/2024[facility] [place] [facility] - Occupational Stress QuestionnaireAnswerDate [...] or living in a fpc (including now)? No06/01/2024CommentsUnknownSex and Gender InformationValueDate Recorded Sex Assigned at BirthNot on fileLegal DlpEzckoi46/15/2023 7:05 PM EDTGender IdentityNot on fileSexual OrientationNot on filedocumented as of this encounter Plan of Treatment DateTypeDepartmentCare Team (Latest Contact Info)Fbpxvfmxhln30/29/2026 10:40 AM ESTProcedure Visit [facility] [address] [facility] [address] [place] [address] Kenneth Clifton DPM [address] [facility] [address] [place] [address] 03/22/2025 10:00 AM ESTOffice Visit [facility] [place] [address] [facility] [address] [place] [address] Ole Yang MD [address] [facility] [address] [place], [place] [address] 05/31/2025 10:30 AM EDTOffice Visit [facility] [place] [facility] [address] [place] [address] Teri Jo MD [address] [place] [address] documented as of this encounter Visit Diagnoses Not on filedocumented in this encounter Additional Health Concerns AssessmentNoted TimePHQ-9 Depression Total Score: 13006/02/2024 9:00 AM EDT documented as of this encounter Care Teams Team MemberRelationshipSpecialtyStart DateEnd Ole Yang MD [address] [facility] [address] [place] [address] PCP - [facility]07/10/22 Ole Yang MD [address] [facility] [address] [place] [address] PCP - GeneralInternal Medicine07/28/22 Edna Alcantara LPN [address] [facility] [address] [place] [address] 05/06/24documented as of this encounter
--- OUTSIDE RECORDS SUMMARY | 2025-01-11 08:09 | XMS_ITS | CCD ---
Author Organization [facility] Care Team Providers Care Desktop Specialist Name Role Phone KEANU KLINE Admitting Unavailable KEANU KLINE Attending Unavailable OLE YANG Referring Unavailable OLE YANG Primary Care Unavailable KEANU KLINE Admitting Unavailable KEANU KLINE Attending Unavailable OLE YANG Primary Care Unavailable OLE YANG Referring Unavailable KEANU KLINE Admitting Unavailable KEANU KLINE Attending Unavailable OLE YANG Primary Care Unavailable OLE YANG Referring Unavailable SANDRO, AHMAD Consulting Unavailable TREY, DR GRANT Primary Care Unavailable SANDRO, AHMAD Attending Unavailable SANDRO, AHMAD Admitting Unavailable CHERY, SHELDON Consulting Unavailable CHERY, SHELDON Attending Unavailable CHERY, SHELDON Admitting Unavailable TREY, DR GRANT Primary Care Unavailable STEPH, DR MAYRA Denson Admitting Unavailabl e REINECK, DR MAYRA Denson Consulting Unavailabl e TREY, DR GRANT Primary Care Unavailable STEPH, [...] Unavailable TREY, DR GRANT Primary Care Unavailable SANDRO, AHMAD Consulting Unavailable SANDRO, AHMAD Attending Unavailable TREY, DR GRANT Primary Care Unavailable SANDRO, AHMAD Admitting Unavailable GABRIEL GREEN Admitting Unavailable TREY, DR GRANT Primary Care Unavailable GABRIEL GREEN Attending Unavailable CLAUEBAMAIRANI, DR JOEL Petersen Consulting Unavailable GABRILE GREEN Consulting Unavailable CHERY, SHELDON Consulting Unavailable [...] Unavailable TREY, DR GRANT Primary Care Unavailable SANDRO, AHMAD Attending Unavailable TREY, DR GRANT Primary Care Unavailable SANDRO, AHMAD Admitting Unavailable SANDRO, AHMAD Consulting Unavailable CHERY, SHELDON Attending Unavailable [...] Primary Care Unavailable Ole Yang MD Unavailable [phone] Ole Yang MD Primary Care Provider Thursday ASPHALT COATER, Bea Unavailable Letty ALONZO, Debora Unavailable Ole [facility] MD [facility] Unavailable Michael Zapien Attending Provider Luis E Soares MD Attending Provider [phone] [place] ASPHALT COATER, Edna Unavailable Ole Yang II Attending Provider Ole Yang II Primary Care Provider Jaz ELISE, Harpreet Monroy Emergency Provider Kamaljit Ziegler DO Admit Provider Kamaljit Ziegler DO Attending Provider [phone] López ELISE, Stephan Other Provider Wil ELISE, Wyatt Other Provider [phone] Tory Guzman Other Provider Unavailable Jojo Hutson DO Other Provider Naresh ELISE, Joel Other Provider Jakub Coffman DO Other Provider Eulogio Evans DO Attending Provider Eulogio Evans DO Other Provider Mitzi Chan APRN Other Provider [phone] Malvin VASQUEZ-MANAGER [employer]CELLENCE-C, Pita rPatt Other Provider Shayna Adkins MD Attending Provider David PhD, Kenneth Attending Provider Thursday ASPHALT COATER, Bea Unavailable Letty ALONZO, Debora Unavailable OLE YANG Attending Unavailable TERI JO Attending Unavailable DIPTI WOLF Attending Unavailable DIPTI WOLF Attending Unavailable OLE YANG Attending Unavailable OLE YANG Attending Unavailable DIPTI WOLF Attending Unavailable KENNETH SKINNER Attending Unavailable OLE YANG Referring Unavailable NICOLE BAUM Attending Unavailable OLE YANG Attending Unavailable DIPTI WOLF Attending Unavailable OLE YANG Attending Unavailable TERI JO F Attending Unavailable OLE YANG Attending Unavailable Ole Yang Attending Unavailable Ole Yang Admitting Unavailable Luis E Soares Attending Unavailable Luis E Soares Admitting Unavailable Kamaljit Ziegler Admitting UnavailOle Hernández Primary Care Unavailable Wyatt De La Torre Consulting Unavailable Stephan Dawn Attending Unavailable Tory Guzman Consulting Unavailable Jojo Hutson Consulting Unavailable Joel Infante Consulting Unavailable Jakub Coffman Consulting Unavailab Eulogio Nails Consulting Unavailable Mitzi Chan Consulting Unavailable Pita Coombs Consulting Unavailable ELIUD, KEANU Referring Unavailable DANIKA, NILE Referring Unavailable DANIKA, NILE Referring Unavailable ELIUD, KEANU Referring Unavailable DENISECLAUDIO Oro Attending Unavailable ELIUD, KEANU Referring Unavailable CLAUDIO SANCHEZ Attending Unavailable MONIQUE, EULOGIO Attending Unavailable ELIUD, KEANU Referring Unavailable ELIUD, KEANU Referring Unavailable ELIUD, KEANU Referring Unavailable ELIUD, KEANU Referring Unavailable ELIUD, KEANU Referring Unavailable ELIUD, KEANU Referring Unavailable ELIUD, KEANU Referring Unavailable Allergies Allergy ClassificationReported Allergen(s)Allergy TypeDate of OnsetReaction(s) Facility (18 sources)Lorazepam; Translations: [LORAZEPAM]Propensity to adverse reactions 45-48-4043MrhsejsfznrocxHDFQ[facility] ([facility] sources)Spironolactone; Translations: [SPIRONOLACTONE]Drug [id number] [facility] Medic[facility] Current Medications MedicationDrug Class(es)DatesSig (Normalized)Sig (Original)amLODIPine 5 mg oral tablet (15 sources)Dihydropyridine Calcium Channel BlockerStart: 27-07-9955xraj 1 tablet by mouth once dailyamLODIPine (Norvasc) 5 MG tablet Take 5 mg by mouth Daily 12/13/2024 ActiveStart: 11-21-2024 End: 12-48-6448wrav 1 tablet by mouth once dailyamLODIPine (Norvasc) 2.5 MG tablet Indications: 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) Take 1 tablet (2.5 mg) by mouth Daily 30 tablet 5 11/28/2024 12/14/2024 Discontinued (Dose adjustment)apixaban 5 mg oral tablet (20 sources)Factor Xa InhibitorStart: 38-10-7638gmay 1 tablet by mouth in the morningapixaban (Eliquis) 5 MG tablet Indications: Paroxysmal atrial fibrillation (HCC) Take 1 tablet (5 mg) by mouth in the morning and 1 tablet (5 mg) before bedtime. 200 tablet 3 03/02/2024 ActiveStart: 02-18-2023 End: 35-13-8776kupy 1 tablet by mouth in the morningapixaban (Eliquis) 5 MG tablet Indications: Paroxysmal atrial fibrillation (CMS/HCC) Take 1 tablet (5 mg) by mouth in the morning and 1 tablet (5 mg) before bedtime. 200 tablet 3 02/18/2023 ActiveStart: 83-60-3937qdjp 1 tablet by mouth in the morningapixaban [...] sources)Platelet Aggregation Inhibitor, Nonsteroidal Anti-inflammatory Drug Start: 13-63-0194gdbx 1 tablet by mouth once dailyatorvastatin 80 mg oral tablet (20 sources)HMG-CoA Reductase InhibitorStart: 83-99-8792wkeg 1 tablet by mouth once dailyatorvastatin (Lipitor) 80 MG tablet Indications: Atherosclerosis of [place] coronary artery of [place] heart without angina pectoris Take 1 tablet (80 mg) by mouth Daily 100 tablet 3 03/02/2024 ActiveStart: 32-40-5061ocjbfmuhqciu (Lipitor) 80 MG tablet Indications: Atherosclerosis of [place] coronary artery of [place] heart without angina pectoris (CMS/HCC) TAKE 1 TABLET EVERY MORNING 100 tablet 3 12/11/2023 ActiveStart: 02-18-2023 End: 83-68-3598bspf 1 tablet by mouth in the morningatorvastatin (Lipitor) 80 MG tablet Indications: Atherosclerosis of [place] coronary artery of [place] heart without angina pectoris (CMS/HCC) Take 1 tablet (80 mg) by mouth in the morning. 100 tablet 3 02/18/2023 ActiveStart: 54-95-8277gmrz 1 tablet by mouth in the morningatorvastatin (Lipitor) 80 MG tablet Indications: Atherosclerosis of [place] coronary artery of [place] heart without angina pectoris (CMS/HCC) Take 1 tablet (80 mg) by mouth in the morning. 100 tablet 3 02/18/2023 Pdyite566 actuat budesonide 0.16 mg/actuat / formoterol fumarate 0.0048 mg/actuat / glycopyrrolate 0.009 mg/actuat metered dose inhaler (20 sources)Corticosteroid, beta2-Adrenergic AgonistStart: 03-16-2024 End: 54-01-5615mzun 2 puff(s) by inhalation in the morning Daqkzit-Uufvrfjyutf-Ltwdylmepf (Breztri Aerosphere) 160-9-4.8 MCG/ACT aerosol Indications: Pulmonary emphysema, unspecified emphysema type (HCC) Inhale 2 puffs in the morning and 2 puffs before bedtime. 10.7 g 3 03/16/2024 09/14/2024 HamaechrlmjuHzjdutg-Xefmddqvjpw-Reivtcxoxg (Breztri Aerosphere) 160-9-4.8 MCG/ACT aerosol Inhale 2 Inhalation in the morning and 2 Inhalation before bedtime. Activecalcium carbonate 1500 mg oral tablet (13 sources)Start: 82-65-1080bibj 1 tablet by mouth in the morningcalcium carbonate (Calcium 600) 600 MG tablet Indications: Age-related osteoporosis without currentpathological fracture Take 1 tablet (600 mg) by mouth in the morning and 1 tablet (600 mg) in the evening. Take with meals. 11/08/2024 Active Calcium Carbonate-Vitamin D2 600 mg calcium- 200 unit tablet (5 sources)Start: 83-75-1852vdiy 1 tablet by mouth once dailyStart: 10-31-2024 take 1 tablet by mouth once dailyCalcium Carbonate-Vitamin D2 600 mg calcium- 200 unit tablet Active 1 TAB PO Daily October 31, 2024 12:00am Complies with drug therapycefdinir 300 mg oral capsule (7 sources)Cephalosporin AntibacterialStart: 11-28-2024 End: 92-13-8560sqpw 1 capsule by mouth in the morningcefdinir (Omnicef) 300 MG capsule Indications: Acute bronchitis, unspecified organism Take 1 capsule (300 mg) by mouth in the morning and 1 capsule (300 mg) before bedtime. Do all this for 7 days. 14capsule 11/28/2024 12/14/2024 Discontinued (Therapy completed) cholecalciferol 0.025 mg oral capsule (20 sources)Vitamin DStart: 74-65-7840fupz 1 capsule by mouth in the morning cholecalciferol 1000 units capsule Indications: Age-related osteoporosis without current pathological fracture Take 1,000 Units by mouth in the morning and 1,000 Units before bedtime. 11/08/2024 ActiveStart: 74-39-5861skso 1 tablet by mouth once daily End: 66-31-9220tzdn 1 capsule by mouth once dailycholecalciferol (Vitamin D-3) 50 MCG (2000 UT) capsule Take 2,000 Units by mouth Daily 11/08/2024 Discontinued (Reorder)cholecalciferol, vitamin D3, 10 mcg (400 unit) capsule 1 (one) time each day at the same time. 0 Activedoxycycline hyclate 100 mg oral capsule (2 sources)Tetracycline-class DrugStart: 06-02-2024 End: 82-80-2708sdgsmffhnmy (Vibramycin) 100 MG capsule Indications: COPD exacerbation [...] tablet 0 Activemelatonin 5 mg oral tablet (18 sources)Start: 97-70-8082fmob 1 tablet by mouth once dailymelatonin 5 MG tablet Take 5 mg by mouth Daily 11/03/2024 ActivemethIMAzole 5 mg oral tablet (20 sources)Thyroid Hormone Synthesis InhibitorStart: 10-31-2024 End: 57-51-8255gyhl 1 tablet by mouth once dailymethIMAzole (Tapazole) 5 MG tablet Indications: Hyperthyroidism Take 1 tablet (5 mg) by mouth Daily90 tablet 1 11/30/2024 05/29/2025 ActiveStart: 06-07-2024 End: 80-34-8806acenDPCnrht (Tapazole) 10 MG tablet Indications: Hyperthyroidism TAKE ONE-HALF (1/2) TABLET ON THURSDAY, THURSDAY, THURSDAY AND THURSDAY 26 tablet 3 06/07/2024 09/14/2024 Discontinued (Dose adjustment)Start: 03-02-2024 methIMAzole (Tapazole) 10 MG tablet Indications: Hyperthyroidism (CMS/HCC) Take 1/2 tablet on Thursday 27 tablet 03/02/2024 ActiveStart: 45-08-9442fycrSYCmgbf (Tapazole) 10 MG tablet Indications: Hyperthyroidism (CMS/HCC) TAKE 1/2 TABLET ON THURSDAY, THURSDAY, THURSDAY, AND THURSDAY 27 tablet 3 12/11/2023 ActivemethIMAzole (Tapazole) 10 MG tablet 1/2 tablet Orally Thursday, Thursday, , Thursday Activetake 0.5 tablet by mouth once dailymethIMAzole (TAPAZOLE) 10 mg tablet Take 0.5 tablets every day by oral route. 0 Ybajcq91 hr metoprolol succinate 50 mg extended release oral tablet (20 sources)beta-Adrenergic BlockerStart: 34-27-1605vofz 1 tablet by mouth once dailymetoprolol succinate XL (Toprol-XL) 50 MG 24 hr tablet Indications: Paroxysmal atrial fibrillation (HCC) Take 1 tablet (50 mg) by mouth Daily 100 tablet 3 03/02/2024 ActiveStart: 69-73-9773esksbhgwnl succinate XL (Toprol-XL) 50 MG 24 hr tablet Indications: Paroxysmal atrial fibrillation (CMS/HCC) TAKE 1 TABLET IN THE MORNING; DO NOT CRUSH OR CHEW 100 tablet 3 12/11/2023 ActiveStart: 37-23-8021nphl 1 tablet by mouth every twenty-four hours in the morning metoprolol succinate XL (Toprol-XL) 50 MG 24 hr tablet Indications: Paroxysmal atrial fibrillation (CMS/HCC) Take 1 tablet (50 mg) by mouth in the morning. Do not crush or chew.. 100 tablet 3 02/18/2023 Active End: 28-17-3753bdfrsbgsdf succinate XL (Toprol-XL) 50 MG 24 hr [...] ActiveMultivitamin (Daily Multi- Vitamin) tablet (5 sources)Start: 47-84-2402wgwn 1 tablet by mouth once dailyStart: 10-31-2024 take 1 tablet by mouth once dailyMultivitamin (Daily Multi-Vitamin) tablet Active 1 TAB PO Daily October 31, 2024 12:00am Complies with drug therapy multivitamin,mq-asmu-Jr-FA-min 27-0.4 mg tablet (1 source)multivitamin,kk-otbi-Cr-FA-min 27-0.4 mg tablet 1 (one) time each day at the same time. 0 Mlpnql70 actuat olodaterol 0.0025 mg/actuat / tiotropium 0.0025 mg/actuat inhalation spray (1 source)Anticholinergic, beta2-Adrenergic Agonisttiotropium-olodateroL 2.5-2.5 mcg/actuation mist Inhale 2 puffs every day by inhalation route. 0 Active PARoxetine hydrochloride 20 mg oral tablet (20 sources)Serotonin Reuptake InhibitorStart: 53-51-5046mxqg 1 tablet by mouth in the morningPARoxetine (Paxil) 20 MG tablet Indications: Anxiety Take 1 tablet (20 mg) by mouth in the morning.100 tablet 3 03/02/2024 ActiveStart: 12-11-2023 PARoxetine (Paxil) 20 MG tablet Indications: Anxiety TAKE 1 TABLET IN THE MORNING 100 tablet 3 12/11/2023 ActiveStart: 02-18-2023 End: 86-90-2159dvnu 1 tablet by mouth in the morningPARoxetine (Paxil) 20 MG tablet Indications: Anxiety Take 1 tablet (20 mg) by mouth in the morning.100 tablet 3 02/18/2023 ActiveStart: 06-37-4947vaqd 1 tablet by mouth in the morning PARoxetine (Paxil) 20 MG tablet Indications: Anxiety Take 1 tablet (20 mg) by mouth in the morning.100 tablet 3 02/18/2023 ActivepredniSONE 20 mg oral tablet (5 sources)Start: 95-14-5603xrse 1 tablet by mouth in the morningpredniSONE (DELTASONE) 20 mg tablet TAKE 1 TABLET (20 MG) BY MOUTH IN THE MORNING AND 1 TABLET (20 MG) BEFORE BEDTIME. DO ALL THIS FOR 5 DAYS. 0 12/16/2022 Active End: 85-26-9100rfqy 1 tablet by mouth once dailypredniSONE (Deltasone) 10 MG tablet Take 10 mg by mouth Daily 11/26/2023 Discontinued (Other) Completed/Discontinued Medications MedicationDrug Class(es)DatesSig (Normalized)Sig (Original)[id number] 200 actuat albuterol 0.09 mg/actuat metered dose inhaler (20 sources)beta2-Adrenergic AgonistStart: 12-16-2022 End: 66-95-8410djjp 2 puff(s) by inhalation every four hours for wheezing albuterol HFA 90 mcg/act inhaler Indications: Pulmonary emphysema, unspecified emphysema type (HCC)Inhale 2 puffs every 4 (four) hours if needed for wheezing 18 g 3 11/26/2023 10/13/2024 Discontinued (Therapy completed)brexpiprazole 0.5 mg oral tablet (20 sources)Atypical AntipsychoticStart: 10-13-2024 End: 64-35-3270ugfo 1 tablet by mouth once dailyBrexpiprazole (Rexulti) 0.5 MG tablet Indications: Dementia with behavioral disturbance (HCC) Take 1 tablet by mouth Daily 90 tablet 10/13/2024 10/18/2024 Discontinued (Side effects)Start: 09-06-2024 End: 64-72-9458Aheilafjysadj (Rexulti) 0.5 MG tablet Indications: Dementia with behavioral disturbance (HCC) Take .25 mg daily 15 tablet 3 09/06/2024 09/14/2024 Discontinued (Dose adjustment)Start: 91-45-1476hlet 0.25 mg by mouth once daily Brexpiprazole (Rexulti) 0.5 MG tablet Indications: Dementia with behavioral disturbance (HCC) Take 0.25 mg by mouth Daily 60 tablet 3 07/18/2024 Active Start: 07-07-2024 End: 57-86-0073vgsj 0.25-0.5 mg by mouth once daily, then take 0.25 tablet by mouth once daily, then take 2 tablets by mouth once dailyBrexpiprazole (Rexulti) 0.25 MG tablet Indications: Dementia with behavioral disturbance (HCC) Take 0.25-0.5 mg by mouth Daily Take 0.25 daily for two weeks then 0.5 mg daily. 60 tablet 2 07/07/2024 10/31/2024 Discontinuedbumetanide 1 mg oral tablet (20 sources)Loop Diuretic End: 80-60-6408fkxw 1 tablet by mouth once daily as neededbumetanide (Bumex) 1 MG tablet Take 1 mg by mouth Daily PRN 10/13/2024 Discontinued (Therapy complet ed)calcium carbonate 1500 mg / cholecalciferol 200 unt oral tablet (20 sources)Vitamin DStart: 10-13-2024 End: 94-35-6206yedx 2 tablets by mouth once dailyCalcium Carb-Cholecalciferol (Calcium + Vitamin D3) 600-5 MG-MCG tablet Indications: Age-related osteoporosis without current pathological fracture Take 2 tablets by mouth 1 (one) time each day at the same time 60 tablet 2 10/13/2024 11/08/2024 Discontinued Cholecalciferol-Vitamin C (Vitamin D3-Vitamin C) 1000-500 UNIT-MG capsule (2 sources) End: 56-92-5600Jmmdmumrsjccxat-Vitamin C (Vitamin D3-Vitamin C) 1000-500 UNIT-MG capsule 1 (one) time each day at the same time. 05/27/2023 Discontinued (Therapy completed)codeine phosphate 2 mg/ml / guaiFENesin 20 mg/ml oral solution (2 sources)Opioid AgonistStart: 01-28-2023 End: 42-46-2945typz 5 mL by mouth every six hours for coughguaiFENesin-codeine (Robitussin-AC) 100-10 MG/5ML syrup Indications: COPD with acute exacerbation (C MS/HCC) Take 5 mL by mouth every 6 (six) hours if needed for cough for up to 10 days 240 mL 1 01/28/2023 02/11/2023 Discontinued (Therapy completed)1 ml denosumab 60 mg/ml prefilled syringe (4 sources)RANK Ligand InhibitorStart: 03-30-2024 End: 57-02-4413wioqmawbl (Prolia) injection 60 mgStart: 03-30-2024 End: 27-31-3334wxwslz 60 mg by subcutaneous injection once60 mg, Subcutaneous, Once, On Thu03/30/24 at 1015, For 1 doselevoFLOXacin 500 mg oral tablet (2 sources)Quinolone AntimicrobialStart: 01-28-2023 End: 46-03-7775lagg 1 tablet by mouth in the morninglevoFLOXacin (Levaquin) 500 MG tablet Indications: COPD with acute exacerbation (CMS/HCC) Take 1 tablet (500 mg) by mouth in the morning for 7 days. 7 tablet 01/28/2023 02/11/2023 Discontinued (Therapy completed)lisinopril 5 mg oral tablet (20 sources)Angiotensin Converting Enzyme InhibitorStart: 57-00-7632vtrm 2.5 mg by mouth once dailyStart: 03-02-2024 End: 26-75-6022qiqo 0.5 tablet by mouth in the morninglisinopril 5 MG tablet Indications: Primary hypertension Take 0.5 tablets (2.5 mg) by mouth in the m orning. 100 tablet 1 03/02/2024 11/08/2024 Discontinued (Therapy completed) Start: 05-77-8920mkbjvvfqkd 5 MG tablet Indications: Primary hypertension (CMS/HCC) TAKE 1 TABLET EVERY MORNING 100 tablet 3 12/11/2023 ActiveStart: 02-18-2023 End: 78-51-8489efvj 1 tablet by mouth in the morninglisinopril 5 MG tablet Indications: Primary hypertension (CMS/HCC) Take 1 tablet (5 mg) by mouth inthe morning. 100 tablet 3 02/18/2023 ActiveStart: 24-69-1361qsjb 1 tablet by mouth in the morninglisinopril 5 MG tablet Indications: Primary hypertension (CMS/HCC) Take 1 tablet (5 mg) by mouth inthe morning. 100 tablet 3 02/18/2023 Active LORazepam 0.5 mg oral tablet (20 sources)BenzodiazepineStart: 11-08-4519javr 0.25 mg by mouth once daily Start: 07-07-2024 End: 76-04-4044wbjl 0.5 tablet by mouth at bedtimeLORazepam (Ativan) 0.5 MG tablet Indications: Anxiety Take 0.5 tablets (0.25 mg) by mouth at bedtime 15 tablet 1 10/31/2024 11/08/2024 Discontinued (Side effects)Start: 08-21-2021 End: 80-67-8507lhlk 1 tablet by mouth every six hours as needed for anxiety and anxiety and anxietyLORazepam (Ativan) 0.5 MG tablet Indications: Anxiety Take 1 tablet (0.5 mg) by mouth every 6 (six)hours if needed for anxiety 90 tablet 05/13/2024 Activemelatonin 1.5 mg tablet split tablet (2 sources)Start: 11-03-2024 End: 96-96-4673dkqsmvmna 1.5 mg tablet split tablet Daily at bedtime as needed for Insomnia 11/03/2024 11/08/2024 Discontinuedspironolactone 25 mg oral tablet (20 sources)Aldosterone AntagonistStart: 03-09-2024 End: 06-57-3412zmjy 1 tablet by mouth once dailyStart: 15-74-4366mykhnprmbcincg (Aldactone) 25 MG tablet Indications: Chronic systolic heart failure (CMS/HCC) TAKE 1 TABLET IN THE MORNING 100 tablet 3 12/11/2023 ActiveStart: 02-18-2023 End: 45-56-3045okie 1 tablet by mouth in the morningspironolactone (Aldactone) 25 MG tablet Indications: Chronic systolic heart failure (CMS/HCC) Take 1 tablet (25 mg) by mouth in the morning. 100 tablet 3 02/18/2023 ActiveStart: 57-92-0126drux 1 tablet by mouth in the morningspironolactone (Aldactone) 25 MG tablet Indications: Chronic systolic heart failure (CMS/HCC) Take 1 tablet (25 mg) by mouth in the morning. 100 tablet 3 02/18/2023 Active Problems Active Problems Problem ClassificationProblemDateDocumented DateEpisodic/ChronicAcute bronchitis (4 sources)Acute bronchitis; Translations: [Acute bronchitis, unspecified] 31-30-8205NpzyhzfjZzzpfaqxamgpsa/social admission (2 sources)Patient encounter status; Translations: [Other specified counseling] 54-63-7149PqjtzrteFeqjluu disorders (20 sources)Anxiety; Translations: [Anxiety disorder, unspecified]Onset: 351101-99-0895ZgdbxbuHqkgkp (20 sources)Mild intermittent asthma; Translations: [Mild intermittent asthma, uncomplicated]Onset: 550684-04-7375ParehpuOdqwxxf dysrhythmias (20 sources)Unspecified atrial fibrillation; Translations: [Atrial fibrillation] Onset: 517092-40-9958DfdmazuUixxjyh kidney disease (20 sources)Chronic kidney disease stage 3B ; Translations: [Chronic kidney disease, stage 3b (HCC) (CMS/HCC)]Onset: 221482-18-7969TypldmuWjflwss kidney disease (2 sources)Chronic kidney disease; Translations: [Chronic kidney disease, stage 3b]Onset: 75-48-9777Damznhg obstructive pulmonary disease and bronchiectasis (20 sources)Chronic obstructive pulmonary disease with (acute) exacerbation; Translations: [Chronic obstructivelung disease]Onset: ChronicConduction disorders (20 sources)Presence of cardiac pacemaker; Translations: [Automatic implantable cardiac defibrillator in situ]Onset: 11-21-2020 Resolved: 264809-53-1099DjidippCqjjgygjel heart failure; nonhypertensive (20 sources)Acute on chronic combined systolic (congestive) and diastolic (congestive) heart failure; Translations: [Chronic combined systolic and diastolic heart failure]Onset: 08-05-2016 Resolved: 82-72-1254IyxrrivIgvwulvc atherosclerosis and other heart disease (20 sources)Atherosclerosis of coronary artery without angina pectoris; Translations: [Atherosclerotic heart disease of [place] coronary artery without angina pectoris]Onset: 09-24-2015 Resolved: 520833-14-0453VjeksyoNlkgfqnl, dementia, and amnestic and other cognitive disorders (20 sources)Dementia with behavioral disturbance; Translations: [Dementia with behavioral disturbance (HCC)]Onset: 800349-04-6723ZwroygiJssratiw mellitus with complications (2 sources)Type 2 diabetes mellitus; Translations: [Type 2 diabetes mellitus with other specified complication]76-93-3905OyqnzkvUjqsurovu of lipid metabolism (20 sources)Hyperlipidemia, unspecified; Translations: [Pure hypercholesterolemia]Onset: 876291-46-0374JxrbrrwOpvcifpwd hypertension (20 sources)Essential (primary) hypertension; Translations: [Hypertensive disorder]Onset: 04-18-7236XwsnxgyPqmmd valve disorders (20 sources)Rheumatic disorders of both mitral and tricuspid valves; Translations: [Non-rheumatic mitral regurgitation ]Onset: ChronicHypertension with complications and secondary hypertension (20 sources)Benign hypertensive heart disease; Translations: [Hypertensive heart disease with heart failure]Onset: 919105-73-1890DfgkwagJaedplaquatyf and screening for infectious disease (2 sources)Vaccination needed; Translations: [Encounter for immunization] 35-10-6789MgevqgsbKljmqgx and fatigue (2 sources)Fatigue; Translations: [Other fatigue]87-39-7466JcprxyrzPkxjymnsuf disorders (20 sources)Other primary ovarian failure; Translations: [Primary ovarian failure]Onset: 47-32-4721KjeerzaXyhm disorders (20 sources)Recurrent major depressive episodes, mild ; Translations: [Major depressive disorder, recurrent, mild]Onset: 454583-76-9018EhifsyoJtpupsp (2 sources)Pain in toe; Translations: [Tinea unguium]99-47-0592Ohpivwop Osteoarthritis (20 sources)Primary osteoarthritis, right shoulder; Translations: [Arthropathy, unspecified, shoulder region]Onset: 378082-02-9776EwrhihrQdejpiwybwvc (20 sources)Senile osteoporosis; Translations: [Age-related osteoporosis without current pathological fracture]Onset: 433854-87-8586ScinbcdBzmjz and ill- defined heart disease (20 sources)Chronic systolic dysfunction of left ventricle; Translations: [Heart disease, unspecified]Onset: 905473-19-8219EvbwnviIbpdt and ill-defined heart disease (2 sources)Heart disease, unspecified; Translations: [Heart disease, unspecified]Onset: 12-20-9008AdupqxxPqvbo circulatory disease (1 source)Personal history of transient ischemic attack (TIA), and cerebral infarction without residual deficits; Translations: [PERS HX TIA AND CI NO RESID DEFICIT]Onset: 93-81-8246XzqfptmbScstc connective tissue disease (1 source)Repeated falls; Translations: [REPEATED FALLS]Onset: 03-20-2022 EpisodicOther diseases of veins and lymphatics (2 sources)Vascular insufficiency; Translations: [Venous insufficiency (chronic) (peripheral)]65-45-3252GybvgttrOvpts eye disorders (1 source)Monocular esotropia, right eye; Translations: [Monocular esotropia, right eye]Onset: 41-10-8596AvadoohfNacts hereditary and degenerative nervous system conditions (2 sources)Impaired cognition; Translations: [Mild cognitive impairment, so stated]12-53-1808XaylzgaYionu hereditary and degenerative nervous system conditions (2 sources)Mild cognitive disorder ; Translations: [Mild cognitive impairment, so stated]14-17-1535YiyvcvkUribq nervous system disorders (5 sources)Disturbance of attention; Translations: [Attention and concentration deficit]23-76-7602AtgxbgjIwiyt nervous system disorders (2 sources)Impaired cztzonipz40-30-4536HnoaikqrRmzkh nervous system disorders (2 sources)Abnormal gait; Translations: [Other abnormalities of gait and mobility]33-29-1032OismoaubVymfi nervous system disorders (5 sources)Word finding difficulty ; Translations: [Other speech disturbances] 56-25-2085BychheowOrulm skin disorders (6 sources)Nail deformity; Translations: [Other nail disorders]09-14-2024 EpisodicPeri-; endo-; and myocarditis; cardiomyopathy (except that caused by tuberculosis or sexually transmitted disease) (20 sources)Cardiomyopathy; Translations: [Cardiomyopathy, unspecified]Onset: 895493-22-6497RieezdhPaeclzya codes; unclassified (5 sources)Insomnia; Translations: [Other insomnia]91-19-8181FhgciiqPxyujwyu codes; unclassified (3 sources)Localized edema; Translations: [Localized edema]Onset: 12-12-2024 82-68-1143SbqbthmsXsuhadzr codes; unclassified (20 sources)Memory impairment; Translations: [Other amnesia]Onset: 05-27-2023 76-21-7103AychrwmwTptyviih codes; unclassified (5 sources)Amnesia; Translations: [Other amnesia]31-80-8840XnksluduXemxxxnn codes; unclassified (5 sources)Family history of dementia; Translations: [Family history of other mental and behavioral disorders]51-71-4463DswpzyywFclwmdnk codes; unclassified (1 source)Localized edema; Translations: [Localized edema]Onset: 12-12-2024 EpisodicRespiratory failure; insufficiency; arrest (adult) (20 sources)Dependence on supplemental oxygen; Translations: [Dependence on supplemental oxygen]Onset: 452088-80-7459XnecvoePyvlrqkwzer; intervertebral disc disorders; other back problems (4 sources)Disorder of right sciatic nerve; Translations: [Sciatica, right side] 18-23-0188XqrcelyjGjiawnv disorders (20 sources)Thyrotoxicosis, unspecified without thyrotoxic crisis or storm; Translations: [Hyperthyroidism]Onset: 35-55-7202SigezjkVdwodflvwotm (1 source)CONTACT W/AND (SUSP) EXPOS COVID-19; Translations: [CONTACT W/AND (SUSP) EXPOS COVID-19]Onset: 16-12-3476Qhokyptxenef (8 sources)Post hospital appointment. Please call to reschedule if needed. Unclassified (1 source)Unspecified dementia, mild, with psychotic disturbance; Translations: [Unspecified dementia, mild, with psychotic disturbance]Onset: 10-31-2024 Unclassified (1 source)ERRONEOUS ENCOUNTER--FGVHGZHCZ48-34-0125Senzocygzeit (2 sources)Chronic atrial fibrillation, unspecified; Translations: [Chronic atrial fibrillation, unspecified]Onset: 08-07-2023 Past or Other Problems Problem ClassificationProblemDateDocumented DateEpisodic/ChronicAbdominal pain (20 sources)Inguinal pain; Translations: [Lower abdominal pain, unspecified] Onset: 10-04-2015 Resolved: 759788-41-7657JrpeygqcMknbj and unspecified renal failure (20 sources)Acute renal failure syndrome; Translations: [Acute kidney failure, unspecified]Onset: 10-31-2024 Resolved: 399419-09-2691EfdkcmqsKaqqc cerebrovascular disease (20 sources)Cerebrovascular accident; Translations: [Cerebral infarction, unspecified]Onset: 09-24-2015 Resolved: 452093-07-5862ZdjogxzLzrscjsrp and vision defects (20 sources)Diplopia; Translations: [Diplopia]Onset: 616565-54-3945 EpisodicDiabetes mellitus without complication (20 sources)Impaired fasting glycemia; Translations: [Impaired fasting glucose] Onset: 303890-48-5678TdsdhfddV Codes: Natural/environment (1 source)Overexertion from prolonged static or awkward postures, initial encounter; Translations: [OVEREXERTPROLNG STAT/AWK PST INIT]Onset: 06-18-2021 EpisodicFluid and electrolyte disorders (20 sources)Dehydration; Translations: [Dehydration]Onset: 10-31-2024 Resolved: 311739-12-0025EecuvvvnVsqoxfe control disorders, NEC (20 sources)Homicidal thoughts; Translations: [Homicidal ideations]Onset: 10-31-2024 Resolved: 101746-60-7516FdfpdwzhLups disorders (20 sources)Mood disordersOnset: 05-27-2023 Resolved: Other aftercare (1 source)senior care (current) use of aspirin; Translations: [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 KILLER 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 ASPIRIN]Onset: 03-79-1093RaevmkehDvkqe aftercare (1 source)Other residential (current) drug therapy; Translations: [OTH RETIREMENT CURRENT DRUG THERAPY]Onset: 49-49-5160NghzbeajKznkw aftercare (20 sources)Long-term current use of anticoagulant; 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]Onset: 926305-77-3508GccknhbmUorcz circulatory disease (20 sources)History of cerebrovascular accident without residual deficits; Translations: [Personal history of transient ischemic attack (TIA), and cerebral infarction without residual deficits]Onset: 663528-00-4178PcmgdthwIebyq connective tissue disease (4 sources)Pain in right leg; Translations: [PAIN IN RIGHT LEG]Onset: 09-04-2021 EpisodicOther connective tissue disease (1 source)Pain in left leg; Translations: [PAIN IN LEFT LEG]Onset: 06-18-2021 EpisodicOther connective tissue disease (20 sources)Recurrent falls ; Translations: [Repeated falls]Onset: 07-28-2022 18-96-6947EwnbhzdaYvdne connective tissue disease (20 sources)Right rotator cuff syndrome; Translations: [Unspecified rotator cuff tear or rupture of right shoulder, not specified as traumatic]Onset: 07-28-2022 55-63-3432AqwnvseeZzlug connective tissue disease (20 sources)Tear of right rotator cuff; Translations: [Unspecified rotator cuff tear or rupture of right shoulder, not specified as traumatic]Onset: 09-12-2016 Resolved: 536549-16-5967WrjqjtyxOwgsr eye disorders (1 source)Esotropia of right eye; Translations: [Monocular esotropia, right eye] 87-01-2867NtkvtuqkPyjck eye disorders (1 source)Abducens nerve palsy; Translations: [Sixth [abducent] nerve palsy, right eye]47-47-8410UrmtxijgYqdvq liver diseases (20 sources)Elevated liver enzymes level; Translations: [Abnormal levels of other serum enzymes]Onset: 887342-33-1547IudrduooBafeq lower respiratory disease (6 sources)Other forms of dyspnea; Translations: [OTHER FORMS OF DYSPNEA]Onset: 41-77-1611GrrorxexJsgyk lower respiratory disease (3 sources)Shortness of breath; Translations: [SHORTNESS OF BREATH]Onset: 54-10-6315BseuhpwhLamtm lower respiratory disease (20 sources)Dyspnea on exertion; Translations: [Other forms of dyspnea]Onset: 642489-71-2412UryhzneaKkral lower respiratory disease (20 sources)Hypoxia; Translations: [Hypoxemia]Onset: EpisodicOther non-traumatic joint disorders (20 sources)Derangement of shoulder; Translations: [Joint derangement, unspecified]Onset: 874440-75-8039JtowqibvVqphi nutritional; endocrine; and metabolic disorders (20 sources)Body mass index 25-29 - overweight; Translations: [Overweight]Onset: 554433-96-0487JopbpgluNedfs screening for suspected conditions (not mental disorders or infectious disease) (20 sources)Lung function testing abnormal; Translations: [Abnormal results of pulmonary function studies]Onset: 07-28-2022 Resolved: 180444-04-1263ZcffiiozMzpjdojr codes; unclassified (4 sources)Other specified postprocedural states; Translations: [OTH SPECIFIED POSTPROCEDURAL STATES]Onset: 56-44-7117XhreyntlBfkwqobe codes; unclassified (20 sources)Difficulty sleeping ; Translations: [Sleep disorder, unspecified] Onset: 162266-68-2561WjhfbpkzKipxfym and strains (1 source)Strain of unspecified muscles, fascia and tendons at thigh level, left thigh, initial encounter; Translations: [STRAIN UNS MUSC FASC LT THIGH INIT] Onset: 50-84-3808SdobvldpVsijwcq and intentional self-inflicted injury (20 sources)Suicidal thoughts; Translations: [Suicidal ideations]Onset: 10-31-2024 Resolved: 637991-11-1750PlcotjyrFnawpijwasi injury; contusion (20 sources)Contusion of right lower leg, initial encounter; Translations: [Contusion of unspecified part of lower limb]Onset: 09-24-2015 Resolved: 428226-42-4896Yynsubif Results Test NameValueInterpretationReference RangeFacilityOrders Onlyon 12-23-2024 Orders [id number] Lluvia Ferraro 1940 F Date Provider Department Center 12/23/2024 HARI MCLEOD [facility] CARD [facility] HeartVAS Family History Problem Relation Age of Onset Colon cancer Father Coronary artery disease Brother Hypertension Brother Kidney cancer Brother Family Status - Relation Status Age at Mother Father BrotherNormalUniversKettering Memorial Hospital36on 80-66-688380Mufbh to Dr. Padron office, patient is scheduled for 02/02/2025 at 1:30NormalUniTuscarawas HospitalCA ECHO DOPPLER COMPLETEon 17-29-[place], [place] [address] Cardiology Report Signed Patient: LLUVIA FERRARO MR#: [id number] : 1940 Acct:[id number] Age/Sex: 84 / F ADM Date: 12/16/24 Loc: CARD Attending Dr: Eulogoi Amaya NP Ordering Physician: Eulogio Amaya NP Date of Service: 12/16/24 Procedure(s): CA echo doppler complete Accession Number(s): [id number] cc: OLE YANG ; Eulogio Amaya NP Patient Name: LLUVIA FERRARO MR#: [id number] : 1940 Exam Date: 12/16/2024 Ordering Doctor: EULOGIO AMAYA ECHOCARDIOGRAM REPORT PROCEDURE: CA ECHO DOPPLER COMPLETE INDICATIONS: Dyspnea on exertion, pacemaker, COPD, hypertension, congestive heart failure COMPARISON: None. DESCRIPTION: COMPLETE ECHOCARDIOGRAM Real-time transthoracic echocardiography with 2D, M-mode, spectral and color flow Doppler performed. QUALITY: Technical quality was good. LEFT VENTRICLE: Normal chamber size. Proximal septal hypertrophy (sigmoid septum). Systolic function is normal. LV EF: Estimated left ventricular ejection fraction is 55%. DIASTOLIC: ATRIAL SEPTUM: Visually appears intact. LEFT ATRIUM: Severe dilatation. RIGHT ATRIUM: Severe dilatation. RIGHT VENTRICLE: Mild dilatation. Systolic function is normal. Pacer wire present. TRICUSPID VALVE: Normal [...] ventricular size and systolic function. Estimated LVEF is 55%. 2. Mildly dilated right ventricle with normal [...] 18:11 Approved by: Ruddy Lucas M.D. on (more content not included)...[facility] Radiology, Radiologist, MD - 12/16/2024 [place] [address] Cardiology Report Signed Patient: LLUVIA FERRARO MR#: [id number] : 1940 Acct:[id number] Age/Sex: 84 / F ADM Date: 12/16/24 Loc: CARD Attending Dr: Eulogio Amaya NP Ordering Physician: Eulogio Amaya NP Date of Service: 12/16/24 Procedure(s): CA echo doppler complete Accession Number(s): [id number] cc: OLE YANG ; Eulogio Amaya NP Patient Name: LLUVIA FERRARO MR#: [id number] : 1940 Exam Date: 12/16/2024 Ordering Doctor: EULOGIO MONIQUE ECHOCARDIOGRAM REPORT PROCEDURE: CA ECHO DOPPLER COMPLETE INDICATIONS: Dyspnea on exertion, pacemaker, COPD, hypertension, congestive heart failure COMPARISON: None. DESCRIPTION: COMPLETE ECHOCARDIOGRAM Real-time transthoracic echocardiography with 2D, M-mode, spectral and color flow Doppler performed. QUALITY: Technical quality was good. LEFT VENTRICLE: Normal chamber size. Proximal septal hypertrophy (sigmoid septum). Systolic function is normal. LV EF: Estimated left ventricular ejection fraction is 55%. DIASTOLIC: ATRIAL SEPTUM: Visually appears intact. LEFT ATRIUM: Severe dilatation. RIGHT ATRIUM: Severe dilatation. RIGHT VENTRICLE: Mild dilatation. Systolic function is normal. Pacer wire present. TRICUSPID VALVE: Normal [...] ventricular size and systolic function. Estimated LVEF is 55%. 2. Mildly dilated right ventricle with normal [...] at 18:18 Dictated By: RUDDY LUCAS Signed By: 12/16/241819 DD/ 18 TD/TT: Second Cook And Baker: [facility] HealthcareRadiology Study observation (narrative)[facility] HealthcareCA ECHO DOPPLER COMPLETEOrdered By: Radiologist Radiology on 57-78-1207[facility] Work Phone: Orders Onlyon 29-26-5098Xkoppq [id number] Lluvia Ferraro 1940 F Date Provider Department Center 12/14/2024 01948-AHZPTEVOQHGABRIEL LEVINE CARD [facility] Family History Problem Relation Age of Onset Colon cancer Father Coronary artery disease Brother Hypertension Brother Kidney cancer Brother Family Status - Relation Status Age at Mother Father BrotherNormalUniversity of Adler Medical Gbmzvg45vx 78-97-309865PAZ for Lluvia's daughter Ashtyn to increase Amlodipine to 5mg. Keep track of daily weights, blood pressure and pulse. 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 per Eulogio Amaya.[facility] HospitalOffice Visiton 24-90-5666Wwykpw-up [id number] Lluvia Ferraro 1940 F Date Provider Department Center 12/12/2024 77499-ENNXZS, ADAM CARD [facility] Family History Problem Relation Age of Onset Colon cancer Father Coronary artery disease Brother Hypertension Brother Kidney cancer Brother Family Status - Relation Status Age at Mother Father Brother Level of Service:75418 NE OFFICE/OUTPATIENT ESTABLISHED MOD MDM 30 MIN Reason for Visit and Comments: Follow-up [575804] - Patient is here today for a follow up [facility] admission for blood pressure issues, kidney failure, hallucinations, depression, anxiety. Patient states blood pressure is erratic, 170 to 205 Cerebrovascular Accident [149] Coronary Artery Disease [187] Hypertension [153006] Atrial Fibrillation [80] Congestive Heart Failure [127] Cardiomyopathy [104] Hyperlipidemia [182] Shortness of Breath [157202] - SOB/CLAIRE patient is on o2 at 2lmp via n/c Edema [[id number]] - Bilateral leg swelling.[facility] HospitalOrders Onlyon 18-26-9639Eibntw [id number] Lluvia Ferraro 1940 F Date Provider Department Center 11/22/2024 Wayne-KEANU KLINE [facility] CARD [place] HeartVAS Family History Problem Relation Age of Onset Colon cancer Father Coronary artery disease Brother Hypertension Brother Kidney cancer Brother Family Status - Relation Status Age at Father BrotherNormalUniTuscarawas HospitalBASIC METABOLIC PANELon 59-01-4463Nnasoos [Mass/Vol]9.4 mg/dLNormal8.6-10.4Quest DiagnosticsComment on above:Performed By: #### 26801 #### [facility] [address] [place] [address] Renal Nurse: Priyanka Petersen FlatiChloride [Moles/Vol]100 mmol/FCqvmbu28-209 Quest DiagnosticsComment on above:Performed By: #### 68441 #### [facility] [address] [place] [address] Renal Nurse: Priyanka Petersen FlatiCO2 [Moles/Vol]33 mmol/IVerh86-15Eucuo DiagnosticsComment on above:Performed By: #### 38294 #### [facility] [address] [place] [address] Renal Nurse: Priyanka Petersen FlatiCreatinine [Mass/Vol]1.02 mg/dLHigh0.60-0.95 Quest DiagnosticsComment on above:Performed By: #### 06239 #### [facility] [address] [place] [address] Renal Nurse: Priyanka TrivediiGFR/1.73 sq M.predicted among non-blacks MDRD (S/P/Bld) [Vol rate/Area]55 mL/min/{1.73_m2}Low> OR = 60Quest DiagnosticsComment on above:Performed By: #### 40975 #### [facility] [address] [place] [address] Renal Nurse: Priyanka Petersen FlatiGlucose [Mass/Vol]126 mg/lESunk67-52Lgmst DiagnosticsComment on above:Result Comment: Fasting reference interval For someone without known diabetes, a glucose value >125 mg/dL indicates that they may have diabetes and this should be confirmed with a follow-up test.Performed By: #### 10686 #### [facility] [address] [place] [address] Renal Nurse: Priyanka Petersen FlatiPotassium [Moles/Vol]4.5 mmol/LNormal3.5-5.3 Quest DiagnosticsComment on above:Performed By: #### 60243 #### [facility] [address] [place], [place] [address] Renal Nurse: Priyanka Petersen FlatiSodium [Moles/Vol]141 mmol/PJrepok907-154Mivus DiagnosticsComment on above:Performed By: #### 89508 #### [facility] [address] [place] [address] Renal Nurse: Priyanka Nicola TrivediiUrea nitrogen [Mass/Vol]17 mg/dLNormal09-09 Quest DiagnosticsComment on above:Performed By: #### 92878 #### [facility] [address] [place] [address] Renal Nurse: Priyanka R FlatiUrea nitrogen/Creatinine [Mass ratio]17 mg/mg Normal6-Quest DiagnosticsComment on above:Performed By: #### 19013 #### [facility] [address] [place] [address] Renal Nurse: Priyanka Puri Onlyon 81-73-6144Niltbh [id number] Lluvia Ferraro 1940 F Date Provider Department Center 11/05/2024 KEANU BARROSO [facility] CARD [facility] HeartVAS Family History Problem Relation Age of Onset Colon cancer Father Coronary artery disease Brother Hypertension Brother Kidney cancer Brother Family Status - Relation Status Age at Father BrotherNormalUniversAdena [facility] head/brain wo/w conon 92-63-3415DG head/brain wo/w [facility] [place] [address] MRI Report Signed Patient: Lluvia Ferraro MR#: [id number] 4 : 1940 Acct:[id number] Age/Sex: 84 / F ADM Date: 10/31/24 Loc: Room: [address] [place] [address] Type: ADM IN Attending Dr: Stephan Dawn MD Copies to: DO Stephan Ruffin [...] Chung M.D. 11/03/2024 3:23 PM Dictation Location: [place] [address] Transcribed By: REJI 11/03/24 1523 Dictated By: Socrates Chung MD 11/03/24 1506 Signed By: 11/03/24 [facility] Physician [facility] CenterXR chest 1V portableon 74-43-1980FG chest 1V portableGAL[facility] Main [place] [address] [place] [address] XRay Report Signed Patient: Lluvia Ferraro MR#: [id number] 4 : 1940 Acct:[id number] Age/Sex: 84 / F ADM Date: 10/31/24 Loc: Room: [address] [place] [address] Type: ADM IN Attending Dr: Stephan Dawn [...] Souza M.D. 11/03/2024 1:49 PM Dictation Location: [place] [address] Transcribed By: [facility] 11/03/24 1349 Dictated By: Ten De Souza DO 11/03/24 1348 Signed By: 11/03/24 1349[facility] Physician [facility] CenterBasic Metabolic Panelon 72-09-2887Zvbnu gap [Moles/Vol]11.6 mmol/LNormal6.0-15.0The [facility] Physician GroupComment on above:Performed By: #### ETOH, CBC, CMP #### [place] [address] USACalcium [Mass/Vol]9.0 mg/dLNormal8.6-10.3The [facility] Physician GroupComment on above:Performed By: #### ETOH, CBC, CMP #### [place] [address] USAChloride [Moles/Vol]107 mmol/FSwsaup41-635Gjw [facility] Physician GroupComment on above:Performed By: #### ETOH, CBC, CMP #### [place] [address] USACO2 [Moles/Vol]25.1 mmol/JCltawt84.0-31.0The [facility] Physician GroupComment on above:Performed By: #### ETOH, CBC, CMP #### [place] [address] USACreatinine [Mass/Vol]1.10 mg/dLNormal0.60-1.20The [facility] Physician GroupComment on above:Performed By: #### ETOH, CBC, CMP #### [place] [address] USACreatinine Clr Calc Mvxoslro31.43NoCount includes the [facility] Physician [facility]aughters Medical CenterComment on above:Result Comment: PERFORMED BY: [place] [address] PATHOLOGIST HEMODIALYSIS TECHNICIAN JUANA CLIFFORD M.D.Performed By: #### ETOH, CBC, CMP #### [place] [address] USAGFR/1.73 sq M.predicted MDRD (S/P/Bld) [Vol rate/Area] 50.169 mL/min/{1.73_m2}NormalThe [facility] Physician GroupComment on above: Performed By: #### ETOH, CBC, CMP #### [place] [address] USAGlucose [Mass/Vol]117 mg/aRYgxv78-061Jxv [facility] Physician GroupComment on above:Result Comment: Random Glucose Reference Range is dependent on time and content of last meal. Glucose of more than 200 mg/dL in a nonstressed, ambulatory subject supports the diagnosis of Diabetes Mellitus. ADA recommended reference rangePerformed By: #### ETOH, CBC, CMP #### [place] [address] USAPotassium [Moles/Vol]4.7 mmol/LNormal3.5-5.1The [facility] Physician GroupComment on above:Performed By: #### ETOH, CBC, CMP #### [place] [address] USASodium [Moles/Vol]139 mmol/EKuxwix245-564Nnd [facility] Physician GroupComment on above:Performed By: #### ETOH, CBC, CMP #### [place] [address] USAUrea nitrogen [Mass/Vol]30 mg/dLHigh7-25The [facility] Physician GroupComment on above:Performed By: #### ETOH, CBC, CMP #### [place] [address] USAComplete Blood Count Auto Diffon 01-84-2396Ibgjanwzo (Bld) [#/Vol]0.1 10*3/uLNormal0.0-0.2The [facility]wood Medical CenterComment on above: Result Comment: PERFORMED BY: [place] [address] PATHOLOGIST HEMODIALYSIS TECHNICIAN JUANA CLIFFORD M.D.Performed By: #### ETOH, CBC, CMP #### [place] [address] USABasophils/100 WBC (Bld)0.8 %Normal.The [facility] Physician GroupComment on above:Performed By: #### ETOH, CBC, CMP #### [place] [address] USAEosinophils (Bld) [#/Vol]0.3 10*3/uLNormal0.0-0.45The [facility] Physician GroupComment on above:Performed By: #### ETOH, CBC, CMP #### [place] [address] USAEosinophils/100 WBC (Bld)4.2 %Normal.The [facility] Physician GroupComment on above:Performed By: #### ETOH, CBC, CMP #### [place] [address] USAErythrocyte distribution width (RBC) [Ratio]16.3 %High 11.9-15.3The [facility] Physician GroupComment on above:Performed By: #### ETOH, CBC, CMP #### [place] [address] USAHematocrit (Bld) [Volume fraction]30.8 %Low34.0-46.4The [facility] Physician GroupComment on above:Performed By: #### ETOH, CBC, CMP #### [place] [address] USAHemoglobin (Bld) [Mass/Vol]10.0 g/dLLow11.8-15.4The [facility] Physician GroupComment on above:Performed By: #### ETOH, CBC, CMP #### [place] [address] USALymphocytes (Bld) [#/Vol]1.0 10*3/uLNormal1.00-4.8The [facility] Physician GroupComment on above:Performed By: #### ETOH, CBC, CMP #### [place] [address] USALymphocytes/100 WBC (Bld)15.1 %Normal.The [facility] Physician GroupComment on above:Performed By: #### ETOH, CBC, CMP #### [address] [place] [address] USAMCH (RBC) [Entitic mass]28.1 lrVybtnz63.7-34.3The [facility] Physician GroupComment on above:Performed By: #### ETOH, CBC, CMP #### [place] [address] USAMCV (RBC) [Entitic vol]86.5 mJQkrsgw56-917Dgd [facility] Physician GroupComment on above:Performed By: #### ETOH, CBC, CMP #### [place] [address] USAMean Corpuscular HGB Conc32.5 g/vZHwbpat77.0-35.0The [facility] Physician GroupComment on above:Performed By: #### ETOH, CBC, CMP #### [place] [address] USAMonocytes (Bld) [#/Vol]0.7 10*3/uLNormal0.0-0.8The [facility] Physician GroupComment on above:Performed By: #### ETOH, CBC, CMP #### [place] [address] USAMonocytes/100 WBC (Bld)11.1 %Normal.The [facility] Physician GroupComment on above:Performed By: #### ETOH, CBC, CMP #### [place] [address] USANeutrophils (Bld) [#/Vol]4.6 10*3/uLNormal1.8-7.7The [facility] Physician GroupComment on above:Performed By: #### ETOH, CBC, CMP #### [place] [address] USANeutrophils/100 WBC (Bld)68.8 %Normal.The [facility] Physician GroupComment on above:Performed By: #### ETOH, CBC, CMP #### [place] [address] USANRBC%0.0 /100{WBC}Normal0-0.5The [facility] Comment on above:Performed By: #### ETOH, CBC, CMP #### [place] [address] USAPlatelet mean volume (Bld) [Entitic vol]7.5 fLNormal 6.3-10.7The [facility] Physician GroupComment on above:Performed By: #### ETOH, CBC, CMP #### [place] [address] USAPlatelets (Bld) [#/Vol]265 10*3/rQMagsnn678-737Tpa [facility] Physician GroupComment on above:Performed By: #### ETOH, CBC, CMP #### [place] [address] USARBC (Bld) [#/Vol]3.57 10*6/uLLow3.60-5.00The [facility] Physician GroupComment on above:Performed By: #### ETOH, CBC, CMP #### [place] [address] USAWBC (Bld) [#/Vol]6.6 10*3/uLNormal3.8-11.6The [facility] Physician GroupComment on above:Performed By: #### ETOH, CBC, CMP #### [place] [address] USAWhite Blood Count6.6 [CFU]/mLNormal3.8-11.6The [facility] Physician GroupComment on above:Performed By: #### ETOH, CBC, CMP #### [place] [address] USAUrinalysison 73-65-3248Acrxnnykpv (U)ClearNormalClearThe [facility] Physician GroupComment on above:Order Comment: Name Collection Type:: Clean-Voided MidstreamPerformed By: #### ETOH, CBC, CMP #### [place] [address] USABilirubin,UrineNegativeNormalNegativeThe [facility] Physician GroupComment on above:Order Comment: Name Collection Type:: Clean- Voided MidstreamPerformed By: #### ETOH, CBC, CMP #### [place] [address] USAColor (U)ColorlessNormalYellowThe [facility] Physician GroupComment on above:Order Comment: Name Collection Type:: Clean-Voided MidstreamPerformed By: #### ETOH, CBC, CMP #### [place] [address] USAGlucose Ql (U)NormalNormalNormalThe [facility] Physician GroupComment on above:Order Comment: Name Collection Type:: Clean-Voided MidstreamPerformed By: #### ETOH, CBC, CMP #### [place] [address] USAKetones Ql (U)NegativeNormalNegativeAdventhealth East Orlando Physician GroupComment on above:Order Comment: Name Collection Type:: Clean- Voided MidstreamPerformed By: #### ETOH, CBC, CMP #### [place] [address] USALeukocyte esterase Test strip Ql (U)NegativeNormalNegative The [facility] Physician GroupComment on above:Order Comment: Name Collection Type:: Clean-Voided MidstreamPerformed By: #### ETOH, CBC, CMP #### [place] [address] USANitrite,UrineNegativeNormalNegativeThe [facility] Physician GroupComment on above:Order Comment: Name Collection Type:: Clean-Voided MidstreamPerformed By: #### ETOH, CBC, CMP #### [place] [address] USAOccult Blood,UrineNegativeNormalNegativeThe [facility] Physician GroupComment on above:Order Comment: Name Collection Type:: Clean- Voided MidstreamResult Comment: PERFORMED BY: [place] [address] PATHOLOGIST HEMODIALYSIS TECHNICIAN JUANA CLIFFORD M.D.Performed By: #### ETOH, CBC, CMP #### [place] [address] USApH (U)6.0 [pH]Normal5.0-9.0[facility] Comment on above:Order Comment: Name Collection Type:: Clean-Voided Midstream Performed By: #### ETOH, CBC, CMP #### [place] [address] USAProtein,UrineNegativeNormalNegativeThe [facility] Physician GroupComment on above:Order Comment: Name Collection Type:: Clean-Voided MidstreamPerformed By: #### ETOH, CBC, CMP #### [place] [address] USASpecificy [place],Urine1.109Mmiwtj2.001-1.030The [facility] Physician GroupComment on above:Order Comment: Name Collection Type:: Clean- Voided MidstreamPerformed By: #### ETOH, CBC, CMP #### [place] [address] USAUrobilinogen,UrineNormalNormalNormalThe [facility] Physician GroupComment on above:Order Comment: Name Collection Type:: Clean- Voided MidstreamPerformed By: #### ETOH, CBC, CMP #### [place] [address] USAVitamin B12on 24-10-1989Lmviohvsj (Vitamin B12) [Mass/Vol] 365 pg/lGQywbdh364-502Yjk [facility] Physician GroupComment on above:Result Comment: PERFORMED BY: [place] [address] PATHOLOGIST HEMODIALYSIS TECHNICIAN JUANA CLIFFORD M.D.Performed By: #### B12 #### [place] [address] USAA1C with Estimated Average Gluon 97-87-4694Ygovqpb [Mass/Vol]137 mg/dLNormGreene Memorial Hospitale [facility] Physician GroupComment on above:Result Comment: PERFORMED BY: [place] [address] PATHOLOGIST HEMODIALYSIS TECHNICIAN JUANA CLIFFORD M.D.Performed By: #### ETOH, CBC, CMP #### [place] [address] VXYMuY1d (Bld) [Mass fraction]6.4 %High4.3-5.6The [facility] Physician GroupComment on above:Result Comment: Increased risk for diabetes: 5.7 - 6.4 diabetes: >6.4 glycemic control for adults with diabetes: <7.0Performed By: #### ETOH, CBC, CMP #### [place] [address] USABasic Metabolic Panelon 89-34-0807Kheug gap [Moles/Vol] 11.6 mmol/LNormal6.0-15.0The [facility] Physician GroupComment on above:Performed By: #### MG, A1C WTH eA, BMP, TSH3, T4F #### [place] [address] USACalcium [Mass/Vol]9.3 mg/dLNormal8.6-10.3The [facility] Physician GroupComment on above:Performed By: #### MG, A1C WTH eA, BMP, TSH3, T4F #### [place] [address] USAChloride [Moles/Vol]104 mmol/MOmqspd86-481Qpl [facility] Physician GroupComment on above:Performed By: #### MG, A1C WTH eA, BMP, TSH3, T4F #### [place] [address] USACO2 [Moles/Vol]26.2 mmol/OOmeynp69.0-31.0The [facility] Physician GroupComment on above:Performed By: #### MG, A1C WTH eA, BMP, TSH3, T4F #### [place] [address] USACreatinine [Mass/Vol]1.06 mg/dLNormal0.60-1.20The [facility] Physician GroupComment on above:Performed By: #### MG, A1C WTH eA, BMP, TSH3, T4F #### [place] [address] USACreatinine Clr Calc Iytvzmak20.03NormalThe [facility] Physician GroupComment on above:Performed By: #### MG, A1C WTH eA, BMP, TSH3, T4F #### [facility] [address] [place] [address] USAGFR/1.73 sq M.predicted MDRD (S/P/Bld) [Vol rate/Area] 52.450 mL/min/{1.73_m2}NormalThe [facility] Physician GroupComment on above: Performed By: #### MG, A1C WTH eA, BMP, TSH3, T4F #### [facility] [address] [place] [address] USAGlucose [Mass/Vol]100 mg/dOEowgsi56-315Zzi [facility] Physician GroupComment on above:Result Comment: Random Glucose Reference Range is dependent on time and content of last meal. Glucose of more than 200 mg/dL in a nonstressed, ambulatory subject supports the diagnosis of Diabetes Mellitus. ADA recommended reference rangePerformed By: #### MG, A1C WTH eA, BMP, TSH3, T4F #### [place] [address] USAPotassium [Moles/Vol]4.8 mmol/LNormal3.5-5.1The [facility] Physician GroupComment on above:Performed By: #### MG, A1C WTH eA, BMP, TSH3, T4F #### [place] [address] USASodium [Moles/Vol]137 mmol/FFnmngg385-136Mct [facility] Physician GroupComment on above:Performed By: #### MG, A1C WTH eA, BMP, TSH3, T4F #### [place] [address] USAUrea nitrogen [Mass/Vol]29 mg/dLHigh7-25The [facility] Physician GroupComment on above:Performed By: #### MG, A1C WTH eA, BMP, TSH3, T4F #### [place] [address] USAFree T4 (Free Thyroxine)on 14-27-7748Mzxw T4 [Mass/Vol] 1.00 ng/dLNormal0.61-1.12The [facility] Physician GroupComment on above:Performed By: #### ETOH, CBC, CMP #### [place] [address] USAMagnesiumon 61-22-8415Hpzcmdkjr [Mass/Vol]1.8 mg/dLLow 1.9-2.7The [facility] Physician GroupComment on above:Performed By: #### ETOH, CBC, CMP #### [place] [address] USAThyroid Stimulating Hormoneon 08-98-4147FJV Qn4.01 m[IU]/L Normal0.45-5.33The [facility]wood Medical CenterComment on above:Result Comment: PERFORMED BY: [place] [address] PATHOLOGIST HEMODIALYSIS TECHNICIAN JUANA CLIFFORD M.D.Performed By: #### ETOH, CBC, CMP #### [place] [address] USAAlanine aminotransferase [Enzymatic activity/volume] in Serum or PlasmaOrdered By: Harpreet Sebastian on 14-79-9219ZNK [Catalytic activity/Vol]33 U/LNormal7-52[facility] Medical CenterComment on above: Performed By: #### ETOH, CBC, CMP #### [place] [address] USAAlbumin [Mass/volume] in Serum or Plasma by Bromocresol green (BCG) dye binding methoOrdered By: Harpreet Sebastian on 45-15-3811Fjswfwm BCG dye [Mass/Vol]4.1 g/dL3.5-5.7FMercer County Community HospitalAlkaline phosphatase [Enzymatic activity/volume] in Serum or PlasmaOrdered By: Harpreet Sebastian on 83-76-1500ZGG [Catalytic activity/Vol]90 U/TOdrhaw22-647RaursqrogUpper Valley Medical CenterComment on above:Performed By: #### ETOH, CBC, CMP #### [place] [address] USAAmphetamine Screen Ql (U)Ordered By: Harpreet Sebastian on 12-09-9693Phbpriavyjew Ql (U)NegativeNegativeUpper Valley Medical Center Appearance of UrineOrdered By: Harpreet Sebastian on 64-00-4667Prwdfevupm (U)Clear NormalCleMarion HospitalComment on above:Order Comment: Name Collection Type:: Clean-Voided MidstreamPerformed By: #### ETOH, CBC, CMP #### [facility] [address] [place] [address] USAAspartate aminotransferase [Enzymatic activity/volume] in Serum or PlasmaOrdered By: Harpreet Sebastian on 21-95-5843JAB [Catalytic activity/Vol]27 U/BEzjcig34-44IqbnormgvUpper Valley Medical CenterComment on above: Performed By: #### ETOH, CBC, CMP #### [facility] [address] [place] [address] USABarbiturates [Presence] in Urine by Screen methodOrdered By: Harpreet Sebastian on 80-59-6083Thgdmkyrhsea Screen Ql (U)NegativeNegative [facility] CenterBasic Metabolic Panelon 82-53-6701Pukqokdnaq Clr Calc Yxwftqmi61.91NormalThe [facility] Physician GroupComment on above:Order Comment: Comment Redraw to assess hyperkalemia and response to treaResult Comment: PERFORMED BY: [place] [address] PATHOLOGIST HEMODIALYSIS TECHNICIAN JUANA CLIFFORD M.D.Performed By: #### BMP #### [address] [address] USAGFR/1.73 sq M.predicted MDRD (S/P/Bld) [Vol rate/Area] 45.651 mL/min/{1.73_m2}NormalThe [facility] Physician GroupComment on above:Order Comment: Comment Redraw to assess hyperkalemia and response to treaPerformed By: #### BMP #### [place] [id number] USABasophils [#/volume] in Blood by Automated countOrdered By: Harpreet Sebastian on 42-39-4253Mxaxjklhg (Bld) [#/Vol]0.1 10*3/uLNormal0.0-0.2 [facility] CenterComment on above:Result Comment: PERFORMED BY: [place] [address] PATHOLOGIST HEMODIALYSIS TECHNICIAN JUANA CLIFFORD M.D.Performed By: #### ETOH, CBC, CMP #### [place] [address] USABasophils/100 leukocytes in Blood by Automated count Ordered By: Harpreet Sebastian on 41-48-3042Nnhzkfpmy/100 WBC (Bld)1.2 %Normal. [facility] Medical CenterComment on above:Performed By: #### ETOH, CBC, CMP #### [place] [address] USABenzodiazepines Screen Ql (U)Ordered By: Harpreet Sebastian on 19-84-1620Yndsntkgghafobc Ql (U)NegativeNegChildren's Hospital for RehabilitationBenzoylecgonine [Presence] in Urine by Screen methodOrdered By: Harpreet Sebastian on 94-86-9378Gzxvdgyryzwhkzu Screen Ql (U)NegativeNegChildren's Hospital for RehabilitationBilirubin Test strip Ql (U)Ordered By: Harpreet Sebastian on 14-22-0840Szkjrokof Ql (U)NegativeNegChildren's Hospital for Rehabilitation Bilirubin.total [Mass/volume] in Serum or PlasmaOrdered By: Harpreet Sebastian on 15-72-5539Gsnkupsbq [Mass/Vol]0.5 mg/dLNormal0.3-1.0[facility] Medical CenterComment on above:Performed By: #### ETOH, CBC, CMP #### [facility] [address] [place], [place] [id number] USACT head/brain wo conon 31-37-8267PN head/brain wo con [facility] [place] [address] [place] [address] CT Scan Report Signed Patient: Lluvia Ferraro MR#: [id number] [birth year] : 1940 Acct:[id number] Age/Sex: 84 / F ADM Date: 10/31/24 Loc: ER Room: Type: [facility] ER Attending Dr: Copies to: Harpreet [...] Wilson M.D. 10/31/2024 7:11 PM Dictation Location: [place] [address] Transcribed By: [facility] 10/31/241910 Dictated By: Jj Wilson II, MD 10/31/241908 Signed By: 10/31/241910[facility] Physician GroupCalcium [Mass/volume] in Serum or PlasmaOrdered By: Harpreet Sebastian on 21-12-9782Oqwpaws [Mass/Vol]9.5 mg/dLNormal 8.6-10.3FMercer County Community HospitalComment on above:Order Comment: Comment Redraw to assess hyperkalemia and response to treaPerformed By: #### BMP #### [place] [address] USACannabinoids [Presence] in Urine by Screen methodOrdered By: Harpreet Sebastian on 55-57-3951Kmnprwxofcym Screen Ql (U)NegativeNegative [facility] CenterComment on above:These are unconfirmed results and should not be used for legal purposes. Drug Cut-Off Concentration: AMPH 1000 ng/mL GERARD 200 ng/mL ABHISHEK 200 ng/mL COCM 300 ng/mL OP 300 ng/mL PCP 25 ng/mL THC 20 ng/mLCarbon dioxide, total [Moles/volume] in Serum or PlasmaOrdered By: Harpreet Sebastian on 63-41-2374HV3 [Moles/Vol]29.2 mmol/AMowidk36.0-31.0[facility] Medical CenterComment on above:Order Comment: Comment Redraw to assess hyperkalemia and response to treaPerformed By: #### BMP #### [facility] [address] [place] [address] USAChloride [Moles/volume] in Serum or PlasmaOrdered By: Harpreet Sebastian on 37-36-6436Vhoochoy [Moles/Vol]102 mmol/GQqzgkv14-647ImobqbniaUpper Valley Medical CenterComment on above:Order Comment: Comment Redraw to assess hyperkalemia and response to treaPerformed By: #### BMP #### [place] [id number] USAColor of Urine by AutoOrdered By: Harpreet Sebastian on 64-21-0090Qxoty (U)Light-yellowNormalYOhioHealth Grady Memorial Hospital Comment on above:Order Comment: Name Collection Type:: Clean-Voided Midstream Performed By: #### ETOH, CBC, CMP #### [place] [id number] USAComplete Blood Count Auto Diffon 18-31-8550Ives Corpuscular HGB Conc32.8 g/eTLrblar82.0-35.0The [facility] Physician GroupComment on above:Performed By: #### ETOH, CBC, CMP #### [place] [id number] USAMonocytes/100 WBC (Bld)20.18 %High0.00-20.00The [facility] Physician GroupComment on above:Result Comment: For adults in ED, MDW > 20.0 may be associated with a higher risk of sepsis during the first 12 hrs of hospital admissionPerformed By: #### ETOH, CBC, CMP #### [facility] [address] [place] [address] USANRBC%0.1 /100{WBC}Normal0-0.5The [facility] Comment on above:Performed By: #### ETOH, CBC, CMP #### [place] [address] USAWhite Blood Count9.5 [CFU]/mLNormal3.8-11.6The [facility] Physician GroupComment on above:Performed By: #### ETOH, CBC, CMP #### [place] [address] USAComprehensive Metabolic Panelon 49-51-0084Gshnzfh [Mass/Vol]4.1 g/dLNormal3.5-5.7The [facility] Physician GroupComment on above: Performed By: #### ETOH, CBC, CMP #### [place] [address] USAAnion gap [Moles/Vol]10.9 mmol/LNormal6.0-15.0The [facility] Physician GroupComment on above:Performed By: #### ETOH, CBC, CMP #### [place] [address] USACalcium [Mass/Vol]10.3 mg/dLNormal8.6-10.3The [facility] Physician GroupComment on above:Performed By: #### ETOH, CBC, CMP #### [place] [address] USAChloride [Moles/Vol]99 mmol/UWssnbr06-533Ufv [facility] Physician GroupComment on above:Performed By: #### ETOH, CBC, CMP #### [place] [address] USACO2 [Moles/Vol]30.9 mmol/MWmrpyq51.0-31.0The [facility] Physician GroupComment on above:Performed By: #### ETOH, CBC, CMP #### [place] [address] USACreatinine [Mass/Vol]1.32 mg/dLHigh0.60-1.20The [facility] Physician GroupComment on above:Performed By: #### ETOH, CBC, CMP #### [facility] [address] [place] [address] USACreatinine Clr Calc Xcpmnwpf65.08NormalThe [facility] Physician GroupComment on above:Result Comment: PERFORMED BY: [place] [address] PATHOLOGIST HEMODIALYSIS TECHNICIAN JUANA CLIFFORD M.D.Performed By: #### ETOH, CBC, CMP #### [place] [address] USAGFR/1.73 sq M.predicted MDRD (S/P/Bld) [Vol rate/Area] 40.310 mL/min/{1.73_m2}NormalThe [facility] Physician GroupComment on above: Performed By: #### ETOH, CBC, CMP #### [place] [address] USAGlucose [Mass/Vol]100 mg/mZLzxdfy70-560Aij [facility] Physician GroupComment on above:Result Comment: Random Glucose Reference Range is dependent on time and content of last meal. Glucose of more than 200 mg/dL in a nonstressed, ambulatory subject supports the diagnosis of Diabetes Mellitus. ADA recommended reference rangePerformed By: #### ETOH, CBC, CMP #### [place] [address] USAPotassium [Moles/Vol]5.8 mmol/LHigh3.5-5.1The [facility] Physician GroupComment on above:Performed By: #### ETOH, CBC, CMP #### [place] [address] USASodium [Moles/Vol]135 mmol/NUbp421-260Lsk [facility] Physician GroupComment on above:Performed By: #### ETOH, CBC, CMP #### [place] [address] USAUrea nitrogen [Mass/Vol]36 mg/dLHigh7-25The [facility] Physician GroupComment on above:Performed By: #### ETOH, CBC, CMP #### [place] [address] USACreatinine [Mass/volume] in Serum or PlasmaOrdered By: Harpreet Sebastian on 02-88-1503Ffysysfvvx [Mass/Vol]1.19 mg/dLNormal0.60-1.20 [facility] CenterComment on above:Order Comment: Comment Redraw to assess hyperkalemia and response to treaPerformed By: #### BMP #### [place] [address] USADrug Screen,Urineon 26-53-0095Cyywfnhpjoc Screen,Urine NegativeNormalNegativeThe [facility] Physician GroupComment on above:Performed By: #### ETOH, CBC, CMP #### [place] [address] USABarbiturate Screen,UrineNegativeNormalNegativeThe [facility] Physician GroupComment on above:Performed By: #### ETOH, CBC, CMP #### [place] [address] USABenzodiazepines Screen,UrineNegativeNormalNegativeThe [facility] Physician GroupComment on above:Performed By: #### ETOH, CBC, CMP #### [place] [address] USACannabinoid Screen,UrineNegativeNormalNegativeThe [facility] Physician GroupComment on above:Result Comment: These are unconfirmed results and should not be used for legal purposes. Drug Cut-Off Concentration: AMPH 1000 ng/mL GERARD 200 ng/mL ABHISHEK 200 ng/mL COCM 300 ng/mL OP 300 ng/mL PCP 25 ng/mL THC 20 ng/mL PERFORMED BY: [place] [address] PATHOLOGIST HEMODIALYSIS TECHNICIAN JUANA CLIFFORD M.D.Performed By: #### ETOH, CBC, CMP #### [place] [address] USACocaine Screen,UrineNegativeNormalNegativeThe [facility] Physician GroupComment on above:Performed By: #### ETOH, CBC, CMP #### [facility] [address] [place] [address] USAOpiate Screen,UrineNegativeNormalNegativeAdventhealth East Orlando Physician GroupComment on above:Performed By: #### ETOH, CBC, CMP #### [facility] [address] [place] [address] USAPhencyclidine Screen,UrineNegativeNormalNegativeThe [facility] Physician GroupComment on above:Performed By: #### ETOH, CBC, CMP #### [facility] [address] [place] [id number] USAECG 12 lead ECGon 83-07-6440KPH 12 lead [facility] [place] [address] [place] [address] Electrocardiograph Report Signed Patient: Lluvia Ferraro MR#: [id number] [birth year] : 1940 Acct:[id number] Age/Sex: 84 / F ADM Date: 10/31/24 Loc: Room: [address] [place] [address] Type: ADM IN Attending Dr: Stephan Dawn [...] ectopic atrial rhythm Confirmed by LAZARO ELISE [facility], LIDIA ([id number]) on 11/01/2024 4:58:00 PM Referred By: Electronically Signed By: LIDIA WILLIS MD [facility] Transcribed By: MUS Signed By Lidia Wilils MD, [facility] 11/01/24 1658[facility] Physician GroupEosinophils [#/volume] in Blood by Automated countOrdered By: Harpreet Sebastian on 69-37-8584Btptfyybtgn (Bld) [#/Vol]0.3 10*3/uLNormal0.0-0.45[facility] CenterComment on above:Performed By: #### ETOH, CBC, CMP #### [place] [address] USAEosinophils/100 leukocytes in Blood by Automated count Ordered By: Harpreet Sebastian on 96-76-0853Gvcrizhavsq/100 WBC (Bld)2.8 %Normal. [facility] CenterComment on above:Performed By: #### ETOH, CBC, CMP #### [place] [address] USAErythrocyte distribution width [Ratio] by Automated count Ordered By: Harpreet Sebastian on 39-46-2106Idbyiokimvk distribution width (RBC) [Ratio]16.4 %High11.9-15.3FMercer County Community HospitalComment on above: Performed By: #### ETOH, CBC, CMP #### [place] [address] USAErythrocytes [#/volume] in Blood by Automated countOrdered By: Harpreet Sebastian on 23-60-7130OCU (Bld) [#/Vol]4.27 10*6/uLNormal3.60-5.00 [facility] CenterComment on above:Performed By: #### ETOH, CBC, CMP #### [place] [address] USAEthanol [Mass/volume] in Serum or PlasmaOrdered By: Harpreet Sebastian on 36-91-5327Miwmxqd [Mass/Vol]mg/dLNormAdena Health SystemComment on above:Performed By: #### ETOH, CBC, CMP #### [place] [address] USAEthyl Alcohol Profileon 43-91-3024Cxehhch EthanolNot performedNoCount includes the [facility] Physician GroupComment on above:Result Comment: PERFORMED BY: [place] [address] PATHOLOGIST HEMODIALYSIS TECHNICIAN JUANA CLIFFORD M.D.Performed By: #### ETOH, CBC, CMP #### [place] [address] USAGlomerular filtration rate [Volume Rate/Area] in Serum, Plasma or Blood by CreatinineOrdered By: Harpreet Seabstian on 33-54-7502Iuzaxevksh filtration rate [Volume Rate/Area] in Serum, Plasma or Blood by Kqdvkgzspy33.651 mL/MinUpper Valley Medical CenterGlucose [Mass/volume] in Serum or Plasma Ordered By: Harpreet Sebastian on 69-95-3190Xtehowm [Mass/Vol]131 mg/oTXdcc63-956 [facility] CenterComment on above:ADA recommended reference rangeRandom Glucose Reference [...] ADA recommended reference rangePerformed By: #### BMP #### [facility] [address] [place] [id number] USAGlucose [Mass/volume] in Urine by Test stripOrdered By: Harpreet Sebastian on 31-36-3342Rhsmcis Test strip (U) [Mass/Vol]Normal mg/dLNormal [facility] CenterHCG ( test) IA.rapid Ql (U)Ordered By: Harpreet Sebastian on 87-70-5591DHT ( test) Ql (U)NegativeUpper Valley Medical CenterHCG,Urineon 78-63-4312Sshr HCG ( test) Ql (U)Negative NormalThe [facility] Physician GroupComment on above:Order Comment: Name Collection Type:: Clean-Voided MidstreamResult Comment: PERFORMED BY: [facility] [address] [place] [address] PATHOLOGIST HEMODIALYSIS TECHNICIAN JUANA CLIFFORD M.D.Performed By: #### ETOH, CBC, CMP #### [facility] [address] [place] [id number] USAHematocrit [Volume Fraction] of Blood by Automated count Ordered By: Harpreet Sebastian on 37-95-1602Ewsnffrrof (Bld) [Volume fraction]36.7 % Tgrvgx54.0-46.4FMercer County Community HospitalComment on above:Performed By: #### ETOH, CBC, CMP #### [facility] [address] [place] [id number] USAHemoglobin Test strip Ql (U)Ordered By: Harpreet Sebastian on 39-47-6360Sbswrpfgos Ql (U)NegativeNegChildren's Hospital for Rehabilitation Hemoglobin [Mass/volume] in BloodOrdered By: Harpreet Sebastian on 10-31-2024 Hemoglobin (Bld) [Mass/Vol]12.0 g/gYKnwktf66.8-15.4FMercer County Community HospitalComment on above:Performed By: #### ETOH, CBC, CMP #### [place] [address] USAKetones [Presence] in Urine by Test stripOrdered By: Harpreet Sebastian on 35-83-7225Juzfhso Ql (U)NegativeChillicothe HospitalComment on above:Order Comment: Name Collection Type:: Clean- Voided MidstreamPerformed By: #### ETOH, CBC, CMP #### [place] [address] USALeukocyte esterase [Presence] in Urine by Test strip Ordered By: Harpreet Sebastian on 16-72-9656Pyoygclyi esterase Test strip Ql (U) NegativeChillicothe HospitalComment on above:Order Comment: Name Collection Type:: Clean-Voided MidstreamPerformed By: #### ETOH, CBC, CMP #### [place] [id number] USALeukocytes [#/volume] corrected for nucleated erythrocytes in Blood by Automated counOrdered By: Harpreet Sebastian on 78-72-5105ZQL corrected for nucl RBC Auto (Bld) [#/Vol]9.5 10*3/uL3.8-11.6FMercer County Community HospitalLeukocytes [#/volume] in Blood by Automated countOrdered By: Harpreet Sebastian on 73-13-1341EQI (Bld) [#/Vol]9.5 10*3/uLNormal3.8-11.6FMercer County Community HospitalComment on above:Performed By: #### ETOH, CBC, CMP #### [facility] [address] [place] [address] USALymphocytes [#/volume] in Blood by Automated countOrdered By: Harpreet Sebastian on 97-94-2291Vlozmmfddim (Bld) [#/Vol]1.3 10*3/uLNormal1.00-4.8 [facility] CenterComment on above:Performed By: #### ETOH, CBC, CMP #### [facility] [address] [place] [address] USALymphocytes/100 leukocytes in Blood by Automated count Ordered By: Harpreet Sebastian on 27-74-1091Qwfsaddbbgw/100 WBC (Bld)13.3 %Normal. [facility] CenterComment on above:Performed By: #### ETOH, CBC, CMP #### [facility] [address]H [Entitic mass] by Automated countOrdered By: Harpreet Sebastian on 98-09-6400OEM (RBC) [Entitic mass]28.2 seEgelxf58.7-34.3FMercer County Community HospitalComment on above:Performed By: #### ETOH, CBC, CMP #### [place] [address] USAHC Auto (RBC) [Mass/Vol]Ordered By: Harpreet Sebastian on 07-89-1797OIVF (RBC) [Mass/Vol]32.8 g/dL32.0-35.0[facility] Medical CenterMCV [Entitic volume] by Automated countOrdered By: Harpreet Sebastian on 11-52-9823JIK (RBC) [Entitic vol]85.9 wZObxlzf86-184LkfoyuvunUpper Valley Medical CenterComment on above:Performed By: #### ETOH, CBC, CMP #### [place] [address] USAMonocyte distribution width [Entitic volume] in Blood by AutomatedOrdered By: Harpreet Sebastian on 18-50-7878Vrxoeeit distribution width Auto (Bld) [Entitic vol]20.18 %High0.00-20.00[facility] Medical CenterComment on above:For adults in ED, MDW > 20.0 may be associated with a higher risk of sepsis during the first 12 hrs of hospital admissionMonocytes [#/volume] in Blood by Automated countOrdered By: Harpreet Sebastian on 96-84-6026Jojnocbll (Bld) [#/Vol]1.2 10*3/uLHigh0.0-0.8[facility] Medical CenterComment on above: Performed By: #### ETOH, CBC, CMP #### [facility] [address] [place] [address] USAMonocytes/100 leukocytes in Blood by Automated count Ordered By: Harpreet Sebastian on 75-63-5387Qvbtnsphi/100 WBC (Bld)12.3 %Normal. [facility] Medical CenterComment on above:Performed By: #### ETOH, CBC, CMP #### [facility] [address] [place] [address] USANeutrophils [#/volume] in Blood by Automated countOrdered By: Harpreet Sebastian on 47-52-4231Ketbcakyxkz (Bld) [#/Vol]6.7 10*3/uLNormal1.8-7.7 [facility] Medical CenterComment on above:Performed By: #### ETOH, CBC, CMP #### [facility] [address] [place] [address] USANeutrophils/100 leukocytes in Blood by Automated count Ordered By: Harpreet Sebastian on 03-82-4022Vapxadrhvvs/100 WBC (Bld)70.4 %Normal. [facility] Medical CenterComment on above:Performed By: #### ETOH, CBC, CMP #### [facility] [address] [place] [id number] USANitrite Test strip Ql (U)Ordered By: Harpreet Sebastian on 14-23-1061Etlxsni Ql (U)NegativeNegativeUpper Valley Medical CenterNo Panel InformationOrdered By: Harpreet Sebastian on 30-53-8215Irmoxrci Creatinine Clearance (Chem38.91Upper Valley Medical CenterNucleated erythrocytes [Presence] in Blood by Automated countOrdered By: Harpreet Sebastian on 10-31-2024 Nucleated RBC Auto Ql (Bld)0.1 /100{WBC}0-0.5FMercer County Community Hospital Opiates [Presence] in Urine by Screen methodOrdered By: Harpreet Sebastian on 75-92-4596Fikubet Screen Ql (U)NegativeNegChildren's Hospital for Rehabilitation Phencyclidine Screen Ql (U)Ordered By: Harpreet Sebastian on 90-59-5591Yylyrheexpder Ql (U)NegativeNegChildren's Hospital for RehabilitationPlatelet mean volume [Entitic volume] in Blood by Automated countOrdered By: Harpreet Sebastian on 90-08-5226Opgybwql mean volume (Bld) [Entitic vol]7.2 fLNormal6.3-10.7FMercer County Community HospitalComment on above:Performed By: #### ETOH, CBC, CMP #### [facility] [address] [place] [id number] USAPlatelets [#/volume] in Blood by Automated countOrdered By: Harpreet Sebastian on 14-16-7635Wlcjpkphr (Bld) [#/Vol]352 10*3/vZBknazl018-274 [facility] CenterComment on above:Performed By: #### ETOH, CBC, CMP #### [facility] [address] [place] [address] USAPotassium [Moles/volume] in Serum or PlasmaOrdered By: Harpreet Sebastian on 11-10-7117Wcuyhfhdv [Moles/Vol]4.6 mmol/LNormal3.5-5.1FMercer County Community HospitalComment on above:Order Comment: Comment Redraw to assess hyperkalemia and response to treaPerformed By: #### BMP #### [facility] [address] [place] [id number] USAProtein Test strip (U) [Mass/Vol]Ordered By: Harpreet Sebastian on 73-84-4534Qxkweoa (U) [Mass/Vol]NegativeNegChildren's Hospital for RehabilitationProtein [Mass/volume] in Serum or PlasmaOrdered By: Harpreet Sebastian on 46-36-6901Hgpapoz [Mass/Vol]7.6 g/dLNormal6.4-8.9[facility] Medical CenterComment on above:Performed By: #### ETOH, CBC, CMP #### [facility] [address] [place] [address] USASerum globulin measurement by calculation (mass/volume) Ordered By: Harpreet Sebastian on 80-41-8289Jedlzetf (S) [Mass/Vol]3.5 g/dLNormal [facility] CenterComment on above:Performed By: #### ETOH, CBC, CMP #### [facility] [address] [place] [address] USASerum or plasma albumin/globulin mass ratioOrdered By: Harpreet Sebastian on 99-98-6504Ghyrvfs/Globulin [Mass ratio]1.2 {ratio}Normal [facility] Medical CenterComment on above:Performed By: #### ETOH, CBC, CMP #### [place] [address] USASerum or plasma anion gap determinationOrdered By: Harpreet Sebastian on 43-77-4798Wiglf gap [Moles/Vol]9.4 mmol/LNormal6.0-15.0[facility] Medical CenterComment on above:Order Comment: Comment Redraw to assess hyperkalemia and response to treaPerformed By: #### BMP #### [place] [address] USASerum or plasma ethanol measurement (mass/volume)Ordered By: Harpreet Sebastian on 86-05-5095Knxlkzc [Mass/Vol]TNPUpper Valley Medical CenterComment on above:Test not performedSodium [Moles/volume] in Serum or PlasmaOrdered By: Harpreet Sebastian on 35-39-9770Xnblgw [Moles/Vol]136 mmol/LNormal 136-145Upper [facility] Medical CenterComment on above:Order Comment: Comment Redraw to assess hyperkalemia and response to treaPerformed By: #### BMP #### [place] [id number] USASpecific gravity Test strip (U) [Rel density]Ordered By: Harpreet Sebastian on 58-66-9677Yvxqtpcq gravity (U) [Rel density]1.0181.001-1.030 [facility] Medical CenterUrea nitrogen [Mass/volume] in Serum or Plasma Ordered By: Harpreet Sebastian on 75-27-7561Hzqe nitrogen [Mass/Vol]34 mg/dLHigh7-25 [facility] CenterComment on above:Order Comment: Comment Redraw to assess hyperkalemia and response to treaPerformed By: #### BMP #### [place] [address] USAUrinalysison 43-64-1195Kxzdjnoog,UrineNegativeNormal NegativeThe Atrium Health Cleveland Physician GroupComment on above:Order Comment: Name Collection Type:: Clean-Voided MidstreamPerformed By: #### ETOH, CBC, CMP #### [place] [address] USAGlucose Ql (U)NormalNormalNormalThe [facility] Cleveland Physician GroupComment on above:Order Comment: Name Collection Type:: Clean-Voided MidstreamPerformed By: #### ETOH, CBC, CMP #### [place] [address] USANitrite,UrineNegativeNormalNegativeThe [facility] Cleveland Physician GroupComment on above:Order Comment: Name Collection Type:: Clean-Voided MidstreamPerformed By: #### ETOH, CBC, CMP #### [place] [address] USAOccult Blood,UrineNegativeNormalNegativeThe [facility] Cleveland Physician GroupComment on above:Order Comment: Name Collection Type:: Clean- Voided MidstreamPerformed By: #### ETOH, CBC, CMP #### [place] [address] USAProtein,UrineNegativeNormalNegativeThe [facility] Cleveland Physician GroupComment on above:Order Comment: Name Collection Type:: Clean-Voided MidstreamPerformed By: #### ETOH, CBC, CMP #### [place] [address] USASpecificy [place],Urine1.561Qnjwpv1.001-1.030The [facility] Cleveland Physician GroupComment on above:Order Comment: Name Collection Type:: Clean- Voided MidstreamPerformed By: #### ETOH, CBC, CMP #### [facility] [address] [place] [address] USAUrobilinogen,UrineNormalNormalNormalThe [facility] Cleveland Physician GroupComment on above:Order Comment: Name Collection Type:: Clean- Voided MidstreamPerformed By: #### ETOH, CBC, CMP #### [facility] [address] [place] [id number] USAUrobilinogen Test strip (U) [Mass/Vol]Ordered By: Harpreet Sebastian on 20-16-0034Sqbsqdodqrxr (U) [Mass/Vol]Normal mg/dLNormAdena Health SystempH of Urine by Test stripOrdered By: Harpreet Sebastian on 07-45-6490iJ (U)5.5 [pH]Normal5.0-9.0[facility] Medical CenterComment on above:Order Comment: Name Collection Type:: Clean-Voided MidstreamPerformed By: #### ETOH, CBC, CMP #### [facility] [address] [place] [id number] USAALL CBC WITH AUTO DIFFon 27-01-2227TTHYMUZLX ABSOLUTE AUTO 0.1NOMS HealthcareBasophils/100 WBC (Bld)0.5 %0.2 - 2.0 %[facility] Eosinophils/100 WBC (Bld)2.7 %0.9 - 7.0 %NOMS HealthcareErythrocyte distribution width (RBC) [Ratio]14.5 %11.0 - 15.0 %NOMS HealthcareHematocrit (Bld) [Volume fraction]38.9 %36.0 - 48.0 %NOMS HealthcareHemoglobin (Bld) [Mass/Vol]11.9 g/dL Low12.0 - 16.0 g/dLNOMS HealthcareIMMATURE GRANULOCYTES ABS AUTO0.05HighNOMS HealthcareImmature granulocytes/100 WBC (Bld)0.5 %0.0 - 0.5 %[facility] Interpretation and review of laboratory resultsAbnormalNOMT Healthcare LYMPHOCYTES ABSOLUTE AUTO1.7NOMS HealthcareLymphocytes/100 WBC (Bld)17.6 %Low 20.5 - 60.0 %[facility] HospitalH (RBC) [Entitic mass]28.1 pg26.7 - 34.0 pgNOBoone Hospital CenterHC (RBC) [Mass/Vol]30.6 g/dL29.9 - 35.2 g/dLNOBoone Hospital CenterV (RBC) [Entitic vol]91.7 fL81.0 - 99.0 fLNOMT HealthcareMONOCYTES ABSOLUTE AUTO0.7NOMS HealthcareMonocytes/100 WBC (Bld)7.2 %1.7 - 12.0 %NOM HealthcareNEUTROPHILS ABSOLUTE AUTO6.7HighNOMT HealthcareNeutrophils/100 WBC (Bld)71.5 %43.0 - 75.0 % [facility] HealthcarePlatelet mean volume (Bld) [Entitic vol]9.5 fL9.5 - 13.5 fLNOMT HealthcareTBH EO #0.3NOMS HealthcareTBH [id number] HealthcareTBH RBC4.24NOMS HealthcareTBH WBC9.4NOMT HealthcareCLINISYNCNOMS HealthcareALL URINALYSISon 34-88-7182MITRLVDIU URINENegativeNEGATIVENOMT HealthcareBLOOD URINENegative NEGATIVENOMT HealthcareClarity (U)CLEARCLEARNOMT HealthcareColor (U)LT. YELLOW YELLOWNOMT HealthcareGLUCOSE URINE UANegativeNEGATIVE mg/dLNOMT Healthcare Interpretation and review of laboratory resultsAbnormalNOMS HealthcareKetones Ql (U)NegativeNEGATIVE mg/dLNOMT HealthcareLeukocyte esterase Test strip Ql (U) NegativeNEGATIVENOMT HealthcareNITRITE URINENegativeNEGATIVENOMT HealthcarepH (U)7.0 [pH]5.0 - 9.0NOMT HealthcarePROTEIN URINENegativeNEG/TRACE mg/dLNOMT HealthcareSPECIFIC GRAVITY URINE<=1.612Ldqgydta6.005 - 1.025[facility] UROBILINOGEN URINE0.2 EU/dL0.2 - 1.0 EU/dLNOMT HealthcareCLINISYNCNOMS HealthcareUrine Cultureon 24-64-9544Etvlgeuj identified Cx Nom (U)30,000 colonies/ml mixed bacterial skin contaminants 2 Days PERFORMED BY: [place] [address] [place] [address] PATHOLOGIST HEMODIALYSIS TECHNICIAN JUANA CLIFFORD M.D.[facility] Physician GroupComment on above: Performed By: #### ETOH, CBC, CMP #### [facility] [address] StreetUrine cultureOrdered By: Ole Yang on 09-26-2024 Bacteria identified Cx Nom (U)2 DaysUpper Valley Medical Center36on 27-67-239003KhvjbMD Pita Rivera [place] Good lipids and AST ALT. Continue current medication. Recheck in 6 months Advised patient of lab results per Dr. Sanchez. Patient verbalized understanding. NormalDiley Ridge Medical CenterOrders Onlyon 92-32-2663Iavsbr Only [id number] Lluvia Ferraro Sabrina 1940 F Date Provider Department Center 09/21/2024 KEANU BARROSO [facility] CARD [facility] HeartVAS Family History Problem Relation Age of Onset Colon cancer Father Coronary artery disease Brother Hypertension Brother Kidney cancer Brother Family Status - Relation Status Age at Father BrotherNormalUniversKettering Memorial Hospital36on 74-48-974012Mqngpvttb lab results from 08/18/2024: MD Pita Rivera MA Good lipids and AST ALT. Continue current medication. Recheck in 6 monthsNoChillicothe HospitalALL LIPID PROFILE (FASTING)on 36-76-5563EENS HDL XGGDJ9KDRU HealthcareComment on above:3.3 - 4.4 LOW RISK 4.4 - 7.1 AVERAGE RISK 7.1 - 11.0 MODERATE RISK >11.0 HIGH RISK Cholesterol [Mass/Vol]110 mg/dLNINF - 200 mg/dLNOMS HealthcareCholesterol in HDL [Mass/Vol]54 mg/dL40 - 60 mg/dLNOMS HealthcareComment on above:> or =60 mg/dl - LOW CARDIOVASCULAR RISK <40 mg/dl - HIGH CARDIOVASCULAR RISK Magnesium [Mass/Vol]45 mg/dLNOMS HealthcareComment on above:<100 mg/dl OPTIMAL 100-129 mg/dl NEAR OR ABOVE OPTIMAL 130-159 mg/dl BORDERLINE HIGH 160-189 mg/dl HIGH >190 mg/dl VERY HIGH Magnesium [Mass/Vol]11 mg/dLNOMS HealthcareTriglyceride [Mass/Vol]55 mg/dLNINF - 150 mg/dLNOMS HealthcareCCF Jessie 08-07-7441NGC [Catalytic activity/Vol]24 U/L 14 - 59 U/LNOMS HealthcareCCF Kenneth 02-40-8867XSO [Catalytic activity/Vol]23 U/L 15 - 37 U/LNOMS HealthcareNo Panel Informationon 63-08-6864KEZJSUOOPDSIX HealthcareOffice Visiton 38-44-7596Cwdkgo-up [id number] Lluvia Ferraro 1940 F Date Provider Department Center 08/11/2024 86451-DWTOOACLAUDIO SANCHEZ [facility] Family History Problem Relation Age of Onset Colon cancer Father Coronary artery disease Brother Hypertension Brother Kidney cancer Brother Family Status - Relation Status Age at Father Brother Level of Service:93759 NE OFFICE/OUTPATIENT ESTABLISHED MOD MDM 30 MIN Reason for Visit and Comments: Atrial Fibrillation [80] Congestive Heart Failure [127] - She was discharged from [facility] a few weeks ago for UTI and NSTEMI. Cardiomyopathy [104] - Due for device check in Jan 2025 - was interrogated a few weeks ago. Coronary Artery Disease [187] Hypertension [304197] Hyperlipidemia [182] Shortness of Breath [212252] Edema [[id number]] - Had RX for Bumex to use PRN but daughter states she hasn't taken it in over 2 years. frequent falls [Other] - Says she fell 3-4 times last month.[facility] HospitalUR[facility] CULTURE - FRMCon 70-12-1791Ebfigmlmosdtby and review of laboratory resultsAbnormalNOMT HealthcareURINE CULTURE - [facility] Urine Culture - [facility] Testing [facility]S HealthcareURINE CULTURE - [id number]acia [place], [place] [address]OVHN HealthcareURINE CULTURE - [facility] O:ESCCOL Isolated NOMS HealthcareURINE CULTURE - [facility] Urine Culture - [facility] [place] Count NOMS HealthcareURINE CULTURE - [facility]>100,000CFU/mlNOMS HealthcareURINE [...] HealthcareURINE CULTURE - [facility] Trimethoprim/Sulfa R FResistantNOMS HealthcareCLINISYNCNOMS HealthcareUrine Cultureon 71-40-0742Vxmwykvx identified Cx Nom (U)ORGANISM: Escherichia coli (O:ESCCOL) [place] Count >100,000 Aerobic SYLVIA Charge (NMIC56) SUSCEPTIBILITY [...] RESISTANT TO ALL B-LACTAM DRUGS. PERFORMED BY: [place] [address] PATHOLOGIST HEMODIALYSIS TECHNICIAN JUANA CLIFFORD M.D.[facility] Physician GroupComment on above: Performed By: #### ETOH, CBC, CMP #### [facility] [address] [place] [address] USAUrine cultureOrdered By: Luis E Soares on 07-22-2024 Bacteria identified Cx Nom (U)Escherichia coliAbnoMercer County Community HospitalOrders Onlyon 93-19-8588Mywwdp [id number] JasmineLluvia Sabrina 1940 F Date Provider Department Center 07/21/2024 Agata-HARI SILVA [facility] CARD UT HeartVAS Family History Problem Relation Age of Onset Colon cancer Father Coronary artery disease Brother Hypertension Brother Kidney cancer Brother Family Status - Relation Status Age at Father BrotherNormalUniversity of Texas Health [facility] StephenvilleBASIC METABOLIC PANELon 00-73-6476Gzyznlj [Mass/Vol]8.9 mg/dLNormal8.6-10.4Quest DiagnosticsComment on above:Performed By: #### 6399, 36623, 496, 7600 #### [facility] of [place] [address] Renal Nurse: Robbie Garnica MDChloride [Moles/Vol]108 mmol/DShzidh40-464 Quest DiagnosticsComment on above:Performed By: #### 6399, 97466, 496, 7600 #### [facility] of [place] [address] Renal Nurse: Robbie Garnica MDCO2 [Moles/Vol]26 mmol/SWotbfq66-13Xlcth DiagnosticsComment on above:Performed By: #### 6399, 97648, 496, 7600 #### [facility] of [place] [address] Renal Nurse: Robbie BUCKLEYreatinine [Mass/Vol]1.15 mg/dLHigh0.60-0.95 Quest DiagnosticsComment on above:Performed By: #### 6399, 73986, 496, 7600 #### [facility] of [place] [address] Renal Nurse: Robbie Garnica MDGFR/1.73 sq M.predicted among non-blacks MDRD (S/P/Bld) [Vol rate/Area]48 mL/min/{1.73_m2}Low> OR = 60Quest DiagnosticsComment on above:Performed By: #### 6399, 37114, 496, 7600 #### [facility] of [place] [address] Renal Nurse: Robbie Garnica MDGlucose [Mass/Vol]96 mg/nMNzqmqw68-12Jqbed DiagnosticsComment on above:Result Comment: Fasting reference intervalPerformed By: #### 6399, 18695, 496, 7600 #### [facility] of [place] [address] Renal Nurse: Robbie Garnica MDPotassium [Moles/Vol]5.1 mmol/LNormal3.5-5.3 Quest DiagnosticsComment on above:Performed By: #### 6399, 08177, 496, 7600 #### [facility] of [address], [address] [place] [address] Renal Nurse: Robbie Garnica MDSodium [Moles/Vol]142 mmol/XQowfgw627-726Rnntw DiagnosticsComment on above:Performed By: #### 6399, 32533, 496, 7600 #### [facility] of [address], [address] [place] [address] Renal Nurse: Robbie Garnica MDUrea nitrogen [Mass/Vol]33 mg/dLHigh7-25Quest DiagnosticsComment on above:Performed By: #### 6399, 50885, 496, 7600 #### [facility] of [address], [address] [place] [address] Renal Nurse: Robbie Garnica MDUrea nitrogen/Creatinine [Mass ratio]29 mg/mg High6-22Quest DiagnosticsComment on above:Performed By: #### 6399, 28533, 496, 7600 #### [facility] of [address], [address] [place] [address] Renal Nurse: Robbie Garnica MDCBC (INCLUDES DIFF/PLT)on 06-89-8020Zjovmunso (Bld) [#/Vol]0.039 10*3/uLNormal0-200Quest DiagnosticsComment on above:Performed By: #### 6399, 43589, 496, 7600 #### [facility] of [address], [address] [place] [address] Renal Nurse: Robbie Garnica MDBasophils/100 WBC (Bld)0.6 %NormalQuest DiagnosticsComment on above:Performed By: #### 6399, 96294, 496, 7600 #### [facility] of [address], [address] [place] [address] Renal Nurse: Robbie Garnica MDEosinophils (Bld) [#/Vol]0.241 10*3/uLNormal 15-500Quest DiagnosticsComment on above:Performed By: #### 6399, 11006, 496, 7600 #### [facility] of [address], [address] [place] [address] Renal Nurse: Robbie Garnica MDEosinophils/100 WBC (Bld)3.7 %NormalQuest DiagnosticsComment on above:Performed By: #### 6399, 00342, 496, 7600 #### [facility] of [place] [address] Renal Nurse: Robbie Garnica MDErythrocyte distribution width (RBC) [Ratio] 12.5 %Hqafxf29.0-15.0Quest DiagnosticsComment on above:Performed By: #### 6399, 73559, 496, 7600 #### [facility] of [place] [address] Renal Nurse: Robbie Garnica MDHematocrit (Bld) [Volume fraction]38.9 %Normal 35.0-45.0Quest DiagnosticsComment on above:Performed By: #### 6399, 25194, 496, 7600 #### [facility] of [place] [address] Renal Nurse: Robbie Garnica MDHemoglobin (Bld) [Mass/Vol]12.6 g/dLNormal 11.7-15.5Quest DiagnosticsComment on above:Performed By: #### 6399, 18946, 496, 7600 #### [facility] of [place] [address] Renal Nurse: Robbie Garnica MDLymphocytes (Bld) [#/Vol]1.053 10*3/uLNormal 850-3900Quest DiagnosticsComment on above:Performed By: #### 6399, 93867, 496, 7600 #### [facility] of [address] [place] [address] Renal Nurse: Robbie Garnica MDLymphocytes/100 WBC (Bld)16.2 %NormalQuest DiagnosticsComment on above:Performed By: #### 6399, 46685, 496, 7600 #### [facility] [address], [address] [place] [address] Renal Nurse: Robbie Garnica MDMCH (RBC) [Entitic mass]30.4 oiTyczbx59.0-33.0 Quest DiagnosticsComment on above:Performed By: #### 6399, 08018, 496, 7600 #### [facility] [address], [address] [place] [address] Renal Nurse: Robbie HEARNCHC (RBC) [Mass/Vol]32.4 g/wJHiuhef98.0-36.0 Quest DiagnosticsComment on above:Result Comment: For adults, a slight decrease in the calculated MCHC value (in the range of 30 to 32 g/dL) is most likely not clinically significant; however, it should be interpreted with caution in correlation with other red cell parameters and the patient's clinical condition.Performed By: #### 6399, 74323, 496, 7600 #### [facility] [address], [address] [place] [address] Renal Nurse: Robbie Garnica MDMCV (RBC) [Entitic vol]93.7 nRZryuwy86.0-100.0 Quest DiagnosticsComment on above:Performed By: #### 6399, 58386, 496, 7600 #### [facility] [address], [address] [place] [address] Renal Nurse: Robbie Garnica MDMonocytes (Bld) [#/Vol]0.475 10*3/uLNormal 200-950Quest DiagnosticsComment on above:Performed By: #### 6399, 29199, 496, 7600 #### [facility] [address], [address] [place] [address] Renal Nurse: Robbie Garnica MDMonocytes/100 WBC (Bld)7.3 %NormalQuest DiagnosticsComment on above:Performed By: #### 6399, 27754, 496, 7600 #### [facility] of [address], [address] [place] [address] Renal Nurse: Robbie Garnica MDNeutrophils (Bld) [#/Vol]4.693 10*3/uLNormal 1500-7800Quest DiagnosticsComment on above:Performed By: #### 6399, 61132, 496, 7600 #### [facility] of [address], [address] [place] [address] Renal Nurse: Robbie Garnica MDNeutrophils/100 WBC (Bld)72.2 %NormalQuest DiagnosticsComment on above:Performed By: #### 6399, 33867, 496, 7600 #### [facility] of [address], [address] [place] [address] Renal Nurse: Robbie Garnica MDPlatelet mean volume (Bld) [Entitic vol]11.4 fLNormal7.5-12.5Quest DiagnosticsComment on above:Performed By: #### 6399, 63978, 496, 7600 #### [facility] of [address], [address] [place] [address] Renal Nurse: Robbie Garnica MDPlatelets (Bld) [#/Vol]186 10*3/uLNormal 140-400Quest DiagnosticsComment on above:Performed By: #### 6399, 31385, 496, 7600 #### [facility] of [address], [address] [place] [address] Renal Nurse: Robbie Garnica MDRBC (Bld) [#/Vol]4.15 10*6/uLNormal3.80-5.10 Quest DiagnosticsComment on above:Performed By: #### 6399, 61315, 496, 7600 #### [facility] of [address], [address] [place] [address] Renal Nurse: Robbie Garnica MDWBC (Bld) [#/Vol]6.5 10*3/uLNormal3.8-10.8 Quest DiagnosticsComment on above:Performed By: #### 6399, 98462, 496, 7600 #### [facility] [address], [address] [place] [address] Renal Nurse: Robbie Garnica MDHEMOGLOBIN A1con 83-39-9335KrS8h (Bld) [Mass fraction]5.7 %High<5.7Quest DiagnosticsComment on above:Result Comment: [...] of diabetes for children.Performed By: #### 6399, 78165, 496, 7600 #### [facility] [address], [address] [place] [address] Renal Nurse: Robbie Garnica MDLIPID PANEL, STANDARDon 20-88-7354Jtxeghrwyzq [Mass/Vol]118 mg/dLNormal<200Quest DiagnosticsComment on above:Order Comment: FASTING:YES FASTING: YESPerformed By: #### 6399, 88749, 496, 7600 #### [facility] [address], [address] [place] [address] Renal Nurse: Robbie BUCKLEYholesterol in HDL [Mass/Vol]54 mg/dLNormal> OR = 50Quest DiagnosticsComment on above:Order Comment: FASTING:YES FASTING: YESPerformed By: #### 6399, 24950, 496, 7600 #### [facility] of [place] [address] [place] [address] Renal Nurse: Robbie BUCKLEYholesterol in LDL [Mass/Vol]49 mg/dLNormal Quest [...] LDL-C. Damion HELTON et al. CONSUELO. 2013;310(19): 3491-5535 (http://education.[employer].Stayfilm/faq/JCU390)Performed By: #### 6399, 88854, 496, 7600 #### [facility] [place] [address] Renal Nurse: Robbie BUCKLEYholesterosabrina.total/Cholesterol in HDL [Mass ratio]2.2 {ratio}Normal<5.0Quest DiagnosticsComment on above:Order Comment: FASTING:YES FASTING: YESPerformed By: #### 6399, 73916, 496, 7600 #### [facility] [place] [address] Renal Nurse: Robbie DREW HDL FCFOCTZIQST17 mg/dL (calc)Normal<130 Quest DiagnosticsComment on above:Order Comment: FASTING:YES FASTING: YESResult Comment: For patients with diabetes plus 1 major ASCVD risk factor, treating to a non-HDL-C goal of <100 mg/dL (LDL-C of <70 mg/dL) is considered a therapeutic option.Performed By: #### 6399, 17088, 496, 7600 #### [facility] [place] [address] Renal Nurse: Robbie Garnica MDTriglyceride [Mass/Vol]66 mg/dLNormal<150Quest DiagnosticsComment on above:Order Comment: FASTING:YES FASTING: YESPerformed By: #### 6399, 96683, 496, 7600 #### [facility] [address] [facility], [address] [place] [address] Renal Nurse: Robbie Garnica MDVITAMIN D,25-OH,TOTAL,IAon 74-68-3482UFEKMUQ D,25-OH,TOTAL,IA49 ng/fNSoptpp26-265Ygnvw DiagnosticsComment on above:Result Comment: Vitamin D Status 25-OH Vitamin D: Deficiency: <20 ng/mL Insufficiency: 20 - 29 ng/mL Optimal: > or = 30 ng/mL For 25-OH Vitamin D testing on patients on D2-supplementation and patients for whom quantitation of D2 and D3 fractions is required, the QuestAssureD(TM) 25-OH VIT D, (D2,D3), LC/MS/MS is recommended: order code 91329 (patients >2yrs). See Note 1 Note 1 For additional information, please refer to http://education.Vocollect/faq/MOG172 (This link is being provided for informational/ educational purposes only.)Performed By: #### 6399, 38608, 496, 5290 #### [facility] [place] [address] [facility], [address] [place] [address] Renal Nurse: Robbie Garnica MDALL T3 FREEon 72-24-3769Stek T3 [Mass/Vol]2.72 pg/mL2.18 - 3.98 pg/mLNNorth [facility] THYROID STIM HORMONEon 05-23-2024 Interpretation and review of laboratory resultsAbnormPenn Highlands Healthcare Qn4.74 m[IU]/LHThedaCare Medical Center - [facility] THYROXINE (T4) FREEon 85-22-0287Wlsw T4 [Mass/Vol]0.98 ng/dL0.76 - 1.46 ng/dLSSM Health CareCLINISYNCNMCBRIDE ORTH[facility] [place] HealthcareNo Panel Informationon 70-55-8360VMTTRPWPTUUZM Rtljvromds57jq 60-58-316592Djfgq with patient and made her aware to start taking full tablet of spironolactone starting tomorrow per Dr. Sanchez. Advised her to still cut lisinopril tablet in half. She will continue to track BP's and call us with updates. Patient verbalized understanding.NormalUniversity Adler Medical Cudfqw88Dpxdnpn called to make you aware that since decreasing spironolactone and lisinopril yesterday her BP has been: 147/92 160/108 172/118 I told her to take the other half tablet of spironolactone right now. Any other recommendations? Please advise. ThanksNormalUniTuscarawas HospitalOffice Visiton 62-38-6518Emojsm-up [id number] Lluvia Ferraro 1940 F Date Provider Department Center 01/25/2024 12845-DIBMANCLAUDIO SANCHEZ [facility] Family History Problem Relation Age of Onset Colon cancer Father Coronary artery disease Brother Hypertension Brother Kidney cancer Brother Family Status - Relation Status Age at Father Brother Level of Service:91883 NE OFFICE/OUTPATIENT ESTABLISHED MOD MDM 30 MIN Reason for Visit and Comments: Atrial Fibrillation [80] - Had thyroid function last month. Shortness of Breath [446485] Hypertension [773454] Cardiomyopathy [104] Valve Disorder [3372] Coronary Artery Disease [187] Congestive Heart Failure [127] - Admitted to [facility] in August 2023 for COPD, hypertension, and CHF. Pacemaker Check [337] - Per device rep, all looks good, no events .Normal [facility] CenterALL THYROXINE (T4) FREEon 20-60-6268Gwat T4 [Mass/Vol]1.02 ng/dL0.76 - 1.46 ng/dLNOMS HealthcareCLINISYNCNOMS HealthcareCA ECHO DOPPLER COMPLETEon 74-77-8393[place]yn[place], [place] [address] Cardiology Report Signed Patient: LLUVIA FERRARO MR#: [id number] : 1940 Acct:[id number] Age/Sex: 82 / F ADM Date: 08/05/23 Loc: CARD Attending Dr: MERYL ANTON Ordering Physician: MERYL ANTON Date of Service: 08/05/23 Procedure(s): CA echo doppler complete Accession Number(s): [id number] cc: OLE YANG ; MERYL ANTON Patient Name: LLUVIA FERRARO MR#: [id number] : 1940 Exam Date: 08/05/2023 Ordering Doctor: [...] 08/07/23 1800 (more content not included)...TBHRadiology, Radiologist, MD - 08/07/2023 [place] [address] Cardiology Report Signed Patient: LLUVIA FERRARO MR#: [id number] : 1940 Acct:[id number] Age/Sex: 82 / F ADM Date: 08/05/23 Loc: CARD Attending Dr: MERYL ANTON Ordering Physician: MERYL ANTON Date of Service: 08/05/23 Procedure(s): CA echo doppler complete Accession Number(s): [id number] cc: OLE YANG ; MERYL ANTON Patient Name: LLUVIA FERRARO MR#: [id number] : 1940 Exam Date: 08/05/2023 Ordering Doctor: [...] 2.98 cm Aortic Valve AoV Area (Peak Vciente): 2.55 cm2, 2.55 cm2 AoV Area (VTI): [...] RUDDY LUCAS Signed By: 08/07/23 1800 DD/ 58 TD/TT: Second Cook And Baker: SRUTHI White HospitalRadiology Study observation (narrative)[facility] ECHO DOPPLER COMPLETEOrdered By: Radiologist Radiology on 97-14-2353QQQJ [employer] Work Phone: nm MAUREEN PERF SPECT REST STRon 50-92-0701Jcb[place], [place] [address] Nuclear Medicine Report Signed Patient: LLUVIA FERRARO MR#: [id number] : 1940 Acct:[id number] Age/Sex: 82 / F ADM Date: 08/04/23 Loc: BENITA Attending Dr: MERYL ANTON Ordering Physician: MERYL ANTON Date of Service: 08/04/23 Procedure(s): BENITA maureen perf SPECT rest str Accession Number(s): [id number] cc: OLE YANG ; MERYL ANTON Patient Name: LLUVIA FERRARO MR#: [id number] : 1940 Exam Date: 08/04/2023 Ordering Doctor: [...] Signed By: 08/06/23 0740 DD/ 0739 TD/TT: Second Cook And Baker:TBHRadiology, Radiologist, MD - 08/06/[address] [address] Nuclear Medicine Report Signed Patient: LLUVIA FERRARO MR#: [id number] : 1940 Acct:[id number] Age/Sex: 82 / F ADM Date: 08/04/23 Loc: BENITA Attending Dr: MERYL ANTON Ordering Physician: MERYL ANTON Date of Service: 08/04/23 Procedure(s): NM maureen perf SPECT rest str Accession Number(s): [id number] cc: OLE YANG ; MERYL ANTON Patient Name: LLUVIA FERRARO MR#: [id number] : 1940 Exam Date: 08/04/2023 Ordering Doctor: [...] Signed By: 08/06/23 0740 DD/ 0739 TD/TT: Second Cook And Baker: SRUTHI YoussefRadiology Study observation (narrative)SRUTHI YoussefIN MAUREEN PERF SPECT REST STROrdered By: Radiologist Radiology on 51-37-6004YVQK Healthcare Work Phone: xr CHEST 2Von 78-06-2308CdkT[place], [place] [address] XRay Report Signed Patient: LLUVIA FERRARO MR#: [id number] : 1940 Acct:[id number] Age/Sex: 82 / F ADM Date: 07/08/23 Loc: LAB Attending Dr: MERYL ANTON Ordering Physician: MERYL ANTON Date of Service: 07/08/23 Procedure(s): XR chest 2V Accession Number(s): [id number] cc: OLE YANG ; MERYL ANTON [address] [place] [id number] Patient Name: LLUVIA FERRARO MRN: [id number] date: 1940 Sex: F Assigned Patient Location: LAB Current Patient Location: LAB Accession/Order Number: [id number] Exam Date: 07/08/2023 11:19 Report Date: 07/08/2023 [...] Dictated By: Rolando Bundy M.D. Signed By: 07/08/23 1353 DD/ 1350 TD/TT: Second Cook And Baker:BRITHRadiology, Radiologist, MD - 07/08/[address] [address] XRay Report Signed Patient: LLUVIA FERRARO MR#: [id number] : 1940 Acct:[id number] Age/Sex: 82 / F ADM Date: 07/08/23 Loc: LAB Attending Dr: MERYL ANTON Ordering Physician: MERYL ANTON Date of Service: 07/08/23 Procedure(s): XR chest 2V Accession Number(s): [id number] cc: OLE YANG ; MERYL ANTON [place] [id number] Patient Name: LLUVIA FERRARO MRN: [id number] date: 1940 Sex: F Assigned Patient Location: LAB Current Patient Location: LAB Accession/Order Number: [id number] Exam Date: 07/08/2023 11:19 Report Date: 07/08/2023 [...] Dictated By: Rolando Bundy M.D. Signed By: 07/08/23 135 DD/ 1350 TD/TT: Second Cook And Baker: SRUTHI HealthcareRadiology Study observation (narrative)[facility] HealthcareXR CHEST 2V Ordered By: Radiologist Radiology on 37-19-4560TSKP Healthcare Work Phone: US.doppler Lower extremity vein - righton 02-16-2023 [place] [address] Ultrasound Report Signed Patient: LLUVIA FERRARO MR#: [id number] : 1940 Acct:[id number] Age/Sex: 82 / F ADM Date: 02/14/23 Loc: US Attending Dr: OLE YANG Ordering Physician: OLE YANG Date of Service: 02/14/23 Procedure(s): US venous doppler LE RT Accession Number(s): [id number] cc: OLE YANG [address] [address] Patient Name: LLUVIA FERRARO MRN: [id number] date: 1940 Sex: F Assigned Patient Location: US Current Patient Location: Accession/Order Number: [id number] Exam Date: 02/14/2023 10:30 Report Date: 02/16/2023 [...] Andino M.D. Signed By: 02/16/23 1107 DD/ 1104 TD/TT: Second Cook And Baker:TBHRadiology, Radiologist, MD - 02/16/2023 [place] [address] Ultrasound Report Signed Patient: LLUVIA FERRARO MR#: [id number] : 1940 Acct:[id number] Age/Sex: 82 / F ADM Date: 02/14/23 Loc: US Attending Dr: OLE YANG Ordering Physician: OLE YANG Date of Service: 02/14/23 Procedure(s): US venous doppler LE RT Accession Number(s): [id number] cc: OLE YANG [address] [address] Patient Name: LLUVIA FERRARO MRN: [id number] date: 1940 Sex: F Assigned Patient Location: US Current Patient Location: Accession/Order Number: [id number] Exam Date: 02/14/2023 10:30 Report Date: 02/16/2023 11:04 At the request of: OLE YAGN Procedure: US venous doppler LE RT EXAMINATION: [...] Dictated By: Joel Andino M.D. Signed By: 02/16/231106 DD/ 03 TD/TT: Second Cook And Baker: [facility] HealthcareRadiology Study observation (narrative)SSM Health CareUS.doppler Lower extremity vein - rightOrdered By: Radiologist Radiology on 44-72-4198FSCFSSM Health Care Work Phone: FREE T3on 81-78-5892ZEBL T32.54 pg/mlLNormal2.18-3.98 The [facility] CampusComment on above:Performed By: #### FT3, TSH #### [facility] [address] [place] [address] Dr. Hugo Pacheco T4on 33-53-1130Tffh T4 [Mass/Vol]1.09 ng/dLNormal0.76-1.46 The [facility] CampusComment on above:Performed By: #### FT4 #### [facility] [address] [place] [address] Dr. Hugo HerreraHogayathri 63-91-6124IOO9.015 uIU/mLNormal0.358-3.740Promedica Flower HospitalComment on above:Performed By: #### FT3, TSH #### [facility] [address] [place] [address] Dr. Hugo YangCT HEAD WO CONon 87-72-5834BR HEAD WO CONEXAMINATION: CT HEAD WO CON [...] Electronically authenticated by: JOEL ANDINO Date: 2022-03-19 10:[address] [place], [place] [address]XR DEXA BONE DENSITYon 92-54-3835HK DEXA BONE DENSITY EXAMINATION: XR DEXA BONE [...] Electronically authenticated by: JOEL ANDINO Date: 2022-03-19 11:11[facility] CenterECHOCARDIO M/2D COMPLETEon 15-48-1438EHSYXIOWVG M/2D COMPLETE Patient: LLUVIA FERRARO Exam Date: 12/23/2021 : 1940 Gender:F Ordering : SHELDON GOTTLIEB [facility] Admission #: [id number] Family : DR OLE YANG M.D. Order #: [id number] CLICK HERE TO VIEW EXAM ECHOCARDIOGRAM REPORT [...] by: Ruddy Lucas M.D. on 12/24/2021 at 15:56NormMercy Health Defiance HospitalFREE T3on 25-32-9087SIVO T31.97 pg/mlLCritically low2.18-3.98The [facility] CampusComment on above:Performed By: #### FT3, TSH #### [facility] [address] [place] [address] Dr. Hugo Pacheco T4on 07-59-7654Gcfq T4 [Mass/Vol]1.00 ng/dLNormal0.76-1.46 The [facility] CampusComment on above:Performed By: #### FT3, TSH #### [facility] [address] [place] [address] Dr. Hugo Sifuentes PROFILEon 43-33-9337Xwmihun [Mass/Vol]3.9 g/dLNormal3.4-5.0 The [facility] CampusComment on above:Performed By: #### FT3, TSH #### [facility] [address] [place] [address] Dr. Hugo YangAlbumin/Globulin [Mass ratio]1.1 {ratio}NormalThe [facility] on above:Performed By: #### FT3, TSH #### [facility] [address] [place] [address] Dr. Hugo Brennan [Catalytic activity/Vol]94 U/SQqcxsm53-348Cnr [facility] CampusComment on above:Performed By: #### FT3, TSH #### [facility] [address] [place] [address] Dr. Hugo Davis [Catalytic activity/Vol]41 U/QPodycd04-41Jqh [facility] Crille Hospitalment on above:Performed By: #### FT3, TSH #### [facility] [address] [place] [address] Dr. Hugo Yuen [Catalytic activity/Vol]25 U/GXonkqa19-00Ibf [facility] on above:Performed By: #### FT3, TSH #### [facility] [address] [place] [address] Dr. Hugo Sibley, CONJUGATED0.2 mg/dLNormal0.0-0.2The [facility] Comment on above:Performed By: #### FT3, TSH #### [facility] [address] [place] [address] Dr. Hugo Dillon [Mass/Vol]0.8 mg/dLNormal0.2-1.0The [facility] Comment on above:Performed By: #### FT3, TSH #### [facility] [address] [place] [address] Dr. Hugo YangGlobulin (S) [Mass/Vol]3.5 g/dLNormMercy Health Defiance HospitalComment on above:Performed By: #### FT3, TSH #### [facility] [address] [place], [place] [address] Dr. Hugo YangProtein [Mass/Vol]7.4 g/dLNormal6.4-8.2The [facility] Comment on above:Performed By: #### FT3, TSH #### [facility] [address] [place], [place] [address] Dr. Hugo Sanchez 84-97-1688YGX1.892 uIU/mLNormal0.358-3.740The [facility] CampusComment on above:Performed By: #### FT3, TSH #### [facility] [address] [place], [place] [address] Dr. Hugo Yoo PIPER DOP LEG RTon 40-80-2360ZB PIPER DOP LEG RTEXAMINATION: US PIPER DOP LEG RT HISTORY: Pain in right leg COMPARISON: No relevant comparison available. FINDINGS: REGION: Right lower extremity THROMBI: None. COMPRESSIBILITY: Normal compressibility. FLOW: Normal waveform and antegrade flow between 5 and 20 cm/s. OTHER: None. IMPRESSION: 1. No deep vein thrombus within the right lower extremity. Electronically authenticated by: JOEL ANDINO Date: 2021-09-04 12:18[facility] CenterCardiovascular Lab Reporton 76-27-4347Cnvsvkcwkiskpa Lab Report [facility] MR #: [id number] Physician: Keanu Kline MD Department of Service Date: 08/21/2021 Medicine Birthdate: 1940 Division of Room #: CC Cardiology Adult Cardiovascular Services [place] [address] Cardiovascular Laboratory Report TBIV-UPGRADE PROCEDURE NOTE DATE OF PROCEDURE: 08/21/2021 PERFORMING PHYSICIAN: Dr. Keanu Kline CONSENT: Patient LOCATION: EP Lab PROCEDURE PERFORMED: 1. Implantation of Biventricular ICD ([employer]). 2. Explantation of previously implanted pacemaker generator ([employer]). 3. RV pacing lead and extraction. [...] was then removed and venogram was performed. [place] catheter was advanced and venogram was performed. This revealed a good posterolateral vein, but other than that, an anterior vein was noted, but no significant other branches were seen. After this, a 0.014 wire was passed through the [place]-Sarah catheter and traversed into the posterolateral vein. However, the wire was short enough and we could not get a good grasp at the end. So, thereafter, the [place]-Sarah catheter was removed and 90-degree inner cannula was used to access the vein. A longer 0.014 wire tracked into the vein. Over this, a [employer] straight lead was advanced and placed [...] The inner cannulas were split and the [place] sheath was slit and the lead secured [...] sleeve was t (more content not included)...NormalThe [facility] Ridge Medical CenterCovid-19 PCR ([facility])on 28-25-3006MZPW-CoV-2 (COVID-19) RNA SONA+probe Ql (Unsp spec)Not detectedNormalNOT DETECTEDThe [facility] CampusComment on above:Result Comment: When diagnostic testing is [...] for this test is supported by the [place] of Health and Human Service's declaration that [...] longer be used).Performed By: #### BMP #### [facility] [address] [place] [address] Dr. Hugo YangHEMOGRAM AND PLATELon 12-06-5947Vqhzbtkshq (Bld) [Volume fraction]43.7 %Vtpxly44.0-48.0The [facility] CampusComment on above:Performed By: #### CBC #### [facility] [address] [place] [address] Dr. Hugo YangHemoglobin (Bld) [Mass/Vol]14.2 g/tWAwppge97.0-16.0The [facility] CampusComment on above:Performed By: #### CBC #### [facility] [address] [place] [address] Dr. Hugo JimenezH (RBC) [Entitic mass]31.0 xpLieqtf88.7-34.0The [facility] Hospitalment on above:Performed By: #### CBC #### [facility] [address] [place] [address] Dr. Hugo JimenezHC (RBC) [Mass/Vol]32.5 g/gUSxtupe09.9-35.2The [facility] Hospitalment on above:Performed By: #### CBC #### [facility] [address] [place] [address] Dr. Hugo JimenezV (RBC) [Entitic vol]95.4 cMLeuier39.0-99.0The [facility] HospitalComment on above:Performed By: #### CBC #### [facility] [address] [place] [address] [address] Hugo YangPLT161 103/bmFmnpsl609-801Xze [facility] CampusComment on above: Performed By: #### CBC #### [facility] [address] [place] [address] [address] Hugo YangRBC4.58 106/ulNormal4.20-5.40The [facility] CampusComment on above:Performed By: #### CBC #### [facility] [address] [place] [address] [address] Hugo YangWBC6.9 103/ulNormal4.0-11.0The [facility] on above: Performed By: #### CBC #### [facility] [address] [place] [address] Dr. Hugo YangPROF CHEM 8 (BAS METB)on 46-59-2691Voadz gap [Moles/Vol]11.5 mmol/LNormalThe [facility] CampusComment on above:Performed By: #### BMP #### [facility] [address] [place] [address] Dr. Hugo YangCalcium [Mass/Vol]9.6 mg/dLNormal8.5-10.1The [facility] Comment on above:Performed By: #### BMP #### [facility] [address] [place] [address] [address] Hugo YangChloride [Moles/Vol]104 mmol/JFuokpw30-447Aye [facility] Comment on above:Performed By: #### BMP #### [facility] [address] [place] [address] Dr. Hugo YangCO2 [Moles/Vol]30.6 mmol/IProuyk08.0-32.0The [facility] Comment on above:Performed By: #### BMP #### [facility] [address] [place] [address] Dr. Hugo YangCreatinine [Mass/Vol]1.24 mg/dLCritically high0.55-1.02The [facility] HospitalComment on above:Performed By: #### BMP #### [facility] [address] [place] [address] [address] Hugo RamachandranGFR-AF RFLUBDRE78 mL/min/1.32i2Jqtkqiprjb low>=60The [facility] CampusComment on above:Performed By: #### BMP #### [facility] [address] [place] [address] [address] Hugo RamachandranGFR-NON AF WFNJMYCT35 mL/min/1.88w2Humgzzzedq low>=60The [facility] CampusComment on above:Performed By: #### BMP #### [facility] [address] [place] [address] [address] Hugo YangGlucose [Mass/Vol]111 mg/dLCritically bkdj95-290Cqz [facility] on above:Performed By: #### BMP #### [facility] [address] [place] [address] [address] Hugo YangPotassium [Moles/Vol]5.1 mmol/LNormal3.5-5.1[facility] Comment on above:Performed By: #### BMP #### [facility] [address] [place] [address] [address] Hugo Morsedium [Moles/Vol]141 mmol/DFhrzrf939-242NxdPromedica Flower Hospital Comment on above:Performed By: #### BMP #### [facility] [address] [place] [address] [address] Hugo YangUrea nitrogen [Mass/Vol]31.0 mg/dLCritically high7.0-18.0The [facility] Hospitalment on above:Performed By: #### BMP #### [facility] [address] [place] [address] [address] Hugo Sanchez nitrogen/Creatinine [Mass ratio]25.0 mg/mgNormalThe [facility] CampusComment on above:Performed By: #### BMP #### [facility] [address] [place] [address] [address] Hugo Shetty 35-20-8977Izlrtrbhufa peptide B (Bld) [Mass/Vol]1994.0 pg/mLCritically high<=1,800.0The [facility] CampusComment on above:Performed By: #### CBC #### [facility] [address] [place] [address] [address] Hugo YangPROF CHEM 8 (BAS METB)on 04-93-1838Pjnjh gap [Moles/Vol]11.3 mmol/LNormalThe [facility] CampusComment on above:Performed By: #### CBC #### [facility] [address] [place] [address] [address] Hugo YangCalcium [Mass/Vol]9.7 mg/dLNormal8.5-10.1The [facility] Comment on above:Performed By: #### CBC #### [facility] [address] [place] [address] Dr. Hugo YangChloride [Moles/Vol]104 mmol/YMgoxhr68-938Mkc [facility] Comment on above:Performed By: #### CBC #### [facility] [address] [place] [address] [address] Hugo YangCO2 [Moles/Vol]29.6 mmol/ZRzahmp08.0-32.0The [facility] Comment on above:Performed By: #### CBC #### [facility] [address] [place] [address] Dr. Hugo YangCreatinine [Mass/Vol]1.28 mg/dLCritically high0.55-1.02The [facility] CampusComment on above:Performed By: #### CBC #### [facility] [address] [place] [address] Dr. Hugo RamachandranGFR-AF SWGJXAPI31 mL/min/1.84e8Oazvylaltf low>=60The [facility] CampusComment on above:Performed By: #### CBC #### [facility] [address] [place] [address] Dr. Hugo RamachandranGFR-NON AF ZPPEDEXK21 mL/min/1.86m0Hwxjhptkos low>=60The [facility] CampusComment on above:Performed By: #### CBC #### [facility] [address] [place] [address] Dr. Hugo YangGlucose [Mass/Vol]119 mg/dLCritically eljp46-084Abz [facility] CampusComment on above:Performed By: #### CBC #### [facility] [address] [place] [address] [address] Hugo YangPotassium [Moles/Vol]4.9 mmol/LNormal3.5-5.1The [facility] Comment on above:Performed By: #### CBC #### [facility] [address] [place] [address] [address] Hugo YangSodium [Moles/Vol]140 mmol/EItymdf652-719Wbq [facility] Comment on above:Performed By: #### CBC #### [facility] [address] [place] [address] [address] Hugo YangUrea nitrogen [Mass/Vol]30.0 mg/dLCritically high7.0-18.0The [facility] CampusComment on above:Performed By: #### CBC #### [facility] [address] [place] [address] [address] Hugo Sanchez nitrogen/Creatinine [Mass ratio]23.4 mg/mgNormalThe [facility] CampusComment on above:Performed By: #### CBC #### [facility] [address] [place] [address] [address] Hugo Pacheco T3on 24-12-8735UVNA T32.64 pg/mlLNormal2.18-3.98The [facility] CampusComment on above:Performed By: #### FT3, TSH #### [facility] [address] [place] [address] [address] Hugo Pacheco T4on 62-98-0808Fnqz T4 [Mass/Vol]1.19 ng/dLNormal0.76-1.46 The [facility] CampusComment on above:Performed By: #### BMP #### [facility] [address] [place] [address] [address] Hugo Sifuentes PROFILEon 25-78-8216Iolwkfq [Mass/Vol]3.8 g/dLNormal3.4-5.0 The [facility] CampusComment on above:Performed By: #### FT3, TSH #### [facility] [address] [place] [address] [address] Hugo YangAlbumin/Globulin [Mass ratio]1.2 {ratio}NormalThe [facility] CampusComment on above:Performed By: #### FT3, TSH #### [facility] [address] [place] [address] [address] Hugo Brennan [Catalytic activity/Vol]88 U/JDclrhx09-543Xcy [facility] CampusComment on above:Performed By: #### FT3, TSH #### [facility] [address] [place] [address] [address] Hugo Davis [Catalytic activity/Vol]54 U/YFheoer09-83Qbe [facility] CampusComment on above:Performed By: #### FT3, TSH #### [facility] [address] [place] [address] [address] Hugo YangAST [Catalytic activity/Vol]36 U/YRbvmpp52-03Qee [facility] on above:Performed By: #### FT3, TSH #### [facility] [address] [place] [address] [address] Hugo Sibley, CONJUGATED0.3 mg/dLCritically high0.0-0.2The [facility] Hospitalment on above:Performed By: #### FT3, TSH #### [facility] [address] [place] [address] [address] Hugo Batemanirubin [Mass/Vol]0.9 mg/dLNormal0.2-1.0The [facility] on above:Performed By: #### FT3, TSH #### [facility] [address] [place] [address] [address] Hugo YangGlobulin (S) [Mass/Vol]3.3 g/dLNormalThe [facility] Hospitalment on above:Performed By: #### FT3, TSH #### [facility] [address] [place] [address] [address] Hugo YangProtein [Mass/Vol]7.1 g/dLNormal6.4-8.2[facility] Comment on above:Performed By: #### FT3, TSH #### [facility] [address] [address] [address] Hugo YangPROF CHEM 8 (BAS METB)on 56-34-7547Qsttv gap [Moles/Vol]13.6 mmol/LNormalThe [facility] CampusComment on above:Performed By: #### BMP #### [facility] [address] [place] [address] Dr. Hugo YangCalcium [Mass/Vol]9.5 mg/dLNormal8.5-10.1The [facility] Comment on above:Performed By: #### BMP #### [facility] [address] [place] [address] Dr. Hugo YangChloride [Moles/Vol]105 mmol/JFipivm24-317IrrPromedica Flower Hospital Comment on above:Performed By: #### BMP #### [facility] [address] [place] [address] Dr. Hugo YangCO2 [Moles/Vol]28.5 mmol/OUrmxyh46.0-32.0[facility] Comment on above:Performed By: #### BMP #### [facility] [address] [place] [address] Dr. Hugo YangCreatinine [Mass/Vol]1.05 mg/dLCritically high0.55-1.02The [facility] CampusComment on above:Performed By: #### BMP #### [facility] [address] [place] [address] Dr. Hugo RamachandranGFR-AF ZIMBABWEAN>60Normal>=60The [facility] CampusComment on above:Performed By: #### BMP #### [facility] [address] [place] [address] Dr. Hugo RamachandranGFR-NON AF LDFHAIZU79 mL/min/1.21z1Ucldjibgzr low>=60The [facility] CampusComment on above:Performed By: #### BMP #### [facility] [address] [place] [address] Dr. Hugo YangGlucose [Mass/Vol]113 mg/dLCritically dtoq49-748Uwl [facility] CampusComment on above:Performed By: #### BMP #### [facility] [address] [place] [address] Dr. Hugo YangPotassium [Moles/Vol]5.1 mmol/LNormal3.5-5.1[facility] Comment on above:Performed By: #### BMP #### [facility] [address] [address] [address] Hugo YangSodium [Moles/Vol]142 mmol/KYmcvay882-666Col [facility] Comment on above:Performed By: #### BMP #### [facility] [address] [place] [address] Dr. Hugo YangUrea nitrogen [Mass/Vol]29.0 mg/dLCritically high7.0-18.0[facility] HospitalComment on above:Performed By: #### BMP #### [facility] [address] [place] [address] Dr. Hugo Sanchez nitrogen/Creatinine [Mass ratio]27.6 mg/mgMain Campus Medical CenterComment on above:Performed By: #### BMP #### [facility] [address] [place] [address] Dr. Hugo Sanchez 26-34-9617FOI4.067 uIU/mLNormal0.358-3.740The [facility] CampusComment on above:Performed By: #### FT3, TSH #### [facility] [address] [place] [address] Dr. Hugo Johnson [facility] BELOWMain Campus Medical CenterComment on above: Result Comment: <0.34 UIU/ml HYPERTHYROID 0.34-5.60 UIU/ml EUTHYROID >5.60 UIU/ml HYPOTHYROIDPerformed By: #### FT3, TSH #### [facility] [address] [place] [address] Dr. Hugo YangCardiovascular Lab Reporton [id number] Lab Report [facility] Patient Name: Jasmine [facility] MR #: [id number] Physician: Elizabeth Tejeda Department of M.D. Medicine Service Date: 06/20/2021 Division of Birthdate: 1940 Cardiology Room #: CC [facility] [address] [place], [place] [address] Cardiovascular Laboratory Report FINAL IMPRESSIONS: 1. 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 2. Otherwise nonobstructive coronary arteries angiographically. 3. Moderately reduced global left ventricular systolic function by noninvasive imaging. 4. Normal right-sided heart pressures and wedge pressure. 5. Pafp-jd-kfgfpipx systemic hypertension. 6. Mildly reduced cardiac output/cardiac [...] bilateral selective coronary angiography, placement of a 6-Macedonian MynxGrip closure device. METHODS: After risks, benefits, [...] femoral vein and artery was obtained. A 6-Macedonian 11 cm sheath was placed in each. [...] the procedure. All catheters were removed. A 6-Macedonian MynxGrip closure device was deployed per protocol [...] 09:19 A E (more content not included)...NormalThe [facility] Medical CenterBNP on 03-90-7237Kvcsdgusaxj peptide B (Bld) [Mass/Vol]3442.0 pg/mLCritically high <=1,800.0The [facility] CampusComment on above:Result Comment: TEST REPEATED CRITICAL VALUE VERIFIEDPerformed By: #### LIPID, BNP, CMP #### [facility] [address] [place] [address] Dr. Hugo Connelly AUTO DIFFon 65-19-0070ZEVH #0.1 103/ulNormal0.0-0.1The [facility] CampusComment on above:Performed By: #### CBC #### [facility] [address] [place] [address] Dr. Hugo YangBasophils/100 WBC (Bld)0.5 %Normal0.2-2.0[facility] Comment on above:Performed By: #### CBC #### [facility] [address] [place] [address] Dr. Hugo New #0.3 103/ulNormal0.0-0.7The [facility] CampusComment on above: Performed By: #### CBC #### [facility] [address] [place] [address] Dr. Hugo Ramachandranosinophils/100 WBC (Bld)2.3 %Normal0.9-7.0The [facility] Comment on above:Performed By: #### CBC #### [facility] [address] [place] [address] Dr. Hugo Ramachandranrythrocyte distribution width (RBC) [Ratio]14.5 %Mulgfi88.0-15.0 The [facility] CampusComment on above:Performed By: #### CBC #### [facility] [address] [place] [address] Dr. Hugo YangHematocrit (Bld) [Volume fraction]42.3 %Xgapcu97.0-48.0The Jarvis HospitalComment on above:Performed By: #### CBC #### [facility] [address] [address] [address] Hugo YangHemoglobin (Bld) [Mass/Vol]13.5 g/lJYfcpvl70.0-16.0The [facility] CampusComment on above:Performed By: #### CBC #### [facility] [address] [address] [address] Hugo Hopkins #0.05 10e3/ulCritically high0.00-0.03The [facility] Comment on above:Performed By: #### CBC #### [facility] [address] [address] [address] Hugo Hopkins %0.4 %Normal0.0-0.5The [facility] CampusComment on above: Performed By: #### CBC #### [facility] [address] [address] [address] Hugo Kay #1.5 103/ulNormal1.2-3.8The [facility] CampusComment on above:Performed By: #### CBC #### [facility] [address] [address] [address] Hugo Rioshocytes/100 WBC (Bld)12.9 %Critically low20.5-60.0The [facility] CampusComment on above:Performed By: #### CBC #### [facility] [address] [address] [address] Hugo GuzmanUAL DIFF REQNONormalThe [facility] CampusComment on above: Performed By: #### CBC #### [facility] [address] [address] [address] Hugo Jimenez (RBC) [Entitic mass]30.4 zxJxhmph11.7-34.0The [facility] CampusComment on above:Performed By: #### CBC #### [facility] [address] [address] [address] Hugo Jimenez (RBC) [Mass/Vol]31.9 g/xISesrgk60.9-35.2The [facility] CampusComment on above:Performed By: #### CBC #### [facility] [address] [address] [address] Hugo JimenezV (RBC) [Entitic vol]95.3 dTLxpwza27.0-99.0The [facility] CampusComment on above:Performed By: #### CBC #### [facility] [address] [address] [address] Hugo Saavedra #0.7 103/ulNormal0.3-0.8The [facility] CampusComment on above:Performed By: #### CBC #### [facility] [address] [address] [address] Hugo Dumontocytes/100 WBC (Bld)6.2 %Normal1.7-12.0[facility] Comment on above:Performed By: #### CBC #### [facility] [address] [place] [address] Dr. Hugo Tierney #8.8 103/ulCritically high1.4-6.5The [facility] Comment on above:Performed By: #### CBC #### [facility] [address] [place] [address] Dr. Hugo Prattutrophils/100 WBC (Bld)77.7 %Critically high43.0-75.0The [facility] CampusComment on above:Performed By: #### CBC #### [facility] [address] [place] [address] Dr. Hugo Garylet mean volume (Bld) [Entitic vol]10.4 fLNormal9.5-13.5The [facility] CampusComment on above:Performed By: #### CBC #### [facility] [address] [place] [address] Dr. Hugo YangPLT199 103/wrVlkzvb442-580Znb [facility] CampusComment on above: Performed By: #### CBC #### [facility] [address] [place] [address] Dr. Hugo YangRBC4.44 106/ulNormal4.20-5.40The [facility] CampusComment on above:Performed By: #### CBC #### [facility] [address] [address] [address] Hugo YangWBC11.3 103/ulCritically high4.0-11.0The [facility] CampusComment on above:Performed By: #### CBC #### [facility] [address] [address] [address] Hugo YangCovid-19 PCR ([facility]VDB[facility])on 70-46-4179IOZI-CoV-2 (COVID-19) RNA SONA+probe Ql (Unsp spec)Not detectedNormalNOT DETECTEDThe [facility] Comment on above:Result Comment: This test is not yet approved or cleared by the [place] FDA. When there are no FDA-approved or cleared tests available, and other criteria are met, FDA can make tests available under an emergency access mechanism called an Emergency Use Authorization (EUA). The EUA for this test is supported by the [place] of Health and Human Service's (HHS's) declaration [...] with SARS-CoV-2.Performed By: #### FT3, TSH #### [facility] [address] [address] [address] Hugo YangLIPID PROFILEon [id number]-HDL RATIO NORMSEE BELOWNormalThHenry County Hospital on above:Result Comment: 3.3 - 4.4 LOW RISK 4.4 - 7.1 AVERAGE RISK 7.1 - 11.0 MODERATE RISK >11.0 HIGH RISKPerformed By: #### LIPID, BNP, CMP #### [facility] [address] [place] [address] Dr. Yilan ChangCholesterol [Mass/Vol]127 mg/dLNormal<=200The [facility] Comment on above:Performed By: #### LIPID, BNP, CMP #### [facility] [address] [address] [address] Hugo Goldenesterol in HDL [Mass/Vol]60 mg/gWDyyzfo61-45Yii [facility] CampusComment on above:Performed By: #### LIPID, BNP, CMP #### [facility] [address] [place] [address] Dr. Hugo Goldenesterol in LDL [Mass/Vol]47.4 mg/dLMain Campus Medical CenterComment on above:Performed By: #### LIPID, BNP, CMP #### [facility] [address] [place] [address] Dr. Hugo Persaud.total/Cholesterol in HDL [Mass ratio]2.1 {ratio} NormalThe [facility] CampusComment on above:Performed By: #### LIPID, BNP, CMP #### [facility] [address] [place] [address] Dr. Hugo Morgan NORMAL> or = 60 mg/dl - LOW CARDIOVASCULAR RISK <40 mg/dl - HIGH CARDIOVASCULAR RISKMain Campus Medical CenterComment on above:Performed By: #### LIPID, BNP, CMP #### [facility] [address] [place] [address] Dr. Hugo Nicholas CALC NORMALSEE BELOWMain Campus Medical CenterComment on above:Result Comment: <100 mg/dl OPTIMAL 100 - 129 mg/dl NEAR OR ABOVE OPTIMAL 130 - 159 mg/dl BORDERLINE HIGH 160 - 189 mg/dl HIGH >190 mg/dl VERY HIGH Performed By: #### LIPID, BNP, CMP #### [facility] [address] [place] [address] Dr. Hugo YangTriglyceride [Mass/Vol]98 mg/dLNormal<=150The [facility] Comment on above:Performed By: #### LIPID, BNP, CMP #### [facility] [address] [place] [address] Dr. Yilan ChangVLDL CALC19.6 mg/dLNormalThe [facility] CampusComment on above: Performed By: #### LIPID, BNP, CMP #### [facility] [address] [address] [address] Hugo YangPROLuz 14(COMP METB)on [id number] [Mass/Vol]4.0 g/dLNormal 3.4-5.0The [facility] CampusComment on above:Performed By: #### LIPID, BNP, CMP #### [facility] [address] [place] [address] Dr. Hugo YangAlbumin/Globulin [Mass ratio]1.3 {ratio}NormalThe [facility] CampusComment on above:Performed By: #### LIPID, BNP, CMP #### [facility] [address] [place] [address] Dr. Hugo Brennan [Catalytic activity/Vol]82 U/ZKbltuz09-095Avl [facility] CampusComment on above:Performed By: #### LIPID, BNP, CMP #### [facility] [address] [place] [address] Dr. Hugo Davis [Catalytic activity/Vol]52 U/TZnwjer33-44Gdb [facility] CampusComment on above:Performed By: #### LIPID, BNP, CMP #### [facility] [address] [place] [address] Dr. Hugo Hendrix gap [Moles/Vol]12.9 mmol/LNormalThe [facility] Comment on above:Performed By: #### LIPID, BNP, CMP #### [facility] [address] [place] [address] Dr. Hugo YangAST [Catalytic activity/Vol]40 U/LCritically vcrv28-88Wrz [facility] CampusComment on above:Performed By: #### LIPID, BNP, CMP #### [facility] [address] [place] [address] Dr. Hugo YangBilirubin [Mass/Vol]1.7 mg/dLCritically high0.2-1.0The [facility] CampusComment on above:Performed By: #### LIPID, BNP, CMP #### [facility] [address] [address] [address] Hugo YangCalcium [Mass/Vol]9.2 mg/dLNormal8.5-10.1The [facility] Comment on above:Performed By: #### LIPID, BNP, CMP #### [facility] [address] [address] [address] Hugo YangChloride [Moles/Vol]103 mmol/DEbzddj87-423Nyv [facility] Comment on above:Performed By: #### LIPID, BNP, CMP #### [facility] [address] [place] [address] Dr. Hugo YangCO2 [Moles/Vol]28.9 mmol/ZQyfqkv31.0-32.0The [facility] Comment on above:Performed By: #### LIPID, BNP, CMP #### [facility] [address] [place] [address] Dr. Hugo YangCreatinine [Mass/Vol]1.12 mg/dLCritically high0.55-1.02[facility] HospitalComment on above:Performed By: #### LIPID, BNP, CMP #### [facility] [address] [place] [address] Dr. Hugo Bales-AF SQGMTUHG53 mL/min/1.87k6Fptbamraxs low>=60The [facility] CampusComment on above:Performed By: #### LIPID, BNP, CMP #### [facility] [address] [place] [address] Dr. Hugo Bales-NON AF SRJFYOUL22 mL/min/1.96f7Ogzyxzaknz low>=60The [facility] CampusComment on above:Performed By: #### LIPID, BNP, CMP #### [facility] [address] [place] [address] Dr. Hugo YangGlobulin (S) [Mass/Vol]3.1 g/dLNormalThe [facility] CampusComment on above:Performed By: #### LIPID, BNP, CMP #### [facility] [address] [place] [address] Dr. Hugo YangGlucose [Mass/Vol]128 mg/dLCritically qvae43-413Tlf [facility] CampusComment on above:Performed By: #### LIPID, BNP, CMP #### [facility] [address] [address] [address] Hugo YangPotassium [Moles/Vol]4.8 mmol/LNormal3.5-5.1[facility] Comment on above:Performed By: #### LIPID, BNP, CMP #### [facility] [address] [address] [address] Hugo YangProtein [Mass/Vol]7.1 g/dLNormal6.1-8.2[facility] Comment on above:Performed By: #### LIPID, BNP, CMP #### [facility] [address] [place] [address] Dr. Hugo YangSodium [Moles/Vol]140 mmol/JZaffcs652-916Sai [facility] Comment on above:Performed By: #### LIPID, BNP, CMP #### [facility] [address] [place] [address] Dr. Hugo YangUrea nitrogen [Mass/Vol]23.0 mg/dLCritically high7.0-18.0[facility] HospitalComment on above:Performed By: #### LIPID, BNP, CMP #### [facility] [address] [place] [address] Dr. Hugo Sanchez nitrogen/Creatinine [Mass ratio]20.5 mg/mgNormalThe [facility] CampusComment on above:Performed By: #### LIPID, BNP, CMP #### [facility] [address] [place] [address] Dr. Arias ChangECHOCARDIAlthea M/2D COMPLETEon 07-78-2475TAVUBTZZMK M/2D COMPLETE Patient: LLUVIA FERRARO Exam Date: 06/12/2021 : 1940 Gender:F Ordering : SHELDON GOTTLIEB Admission #: [id number] Family : DR OLE YANG M.D. Order #: [id number] CLICK HERE TO VIEW EXAM ECHOCARDIOGRAM REPORT [...] Area(A4C): 31.00 cm2 Left Atrium Systolic Volume(A2C): 670880 mm3 Left Atrium Systolic Volume(A4C): 097311 mm3 Mitral Valve MV E to A [...] by: Ruddy Lucas M.D. on 06/12/2021 at 16:27Main Campus Medical CenterCB AUTO DIFFon 54-64-9113ENKF #0.0 103/ulNormal0.0-0.1[facility] HospitalComment on above:Performed By: #### CBC #### [facility] [address] [address] [address] Hugo YangBasophils/100 WBC (Bld)0.6 %Normal0.2-2.0[facility] Comment on above:Performed By: #### CBC #### [facility] [address] [address] [address] Hugo New #0.2 103/ulNormal0.0-0.7The [facility] CampusComment on above: Performed By: #### CBC #### [facility] [address] [address] [address] Hugo Ramachandranosinophils/100 WBC (Bld)3.0 %Normal0.9-7.0[facility] Comment on above:Performed By: #### CBC #### [facility] [address] [place] [address] Dr. Hugo Ramachandranrythrocyte distribution width (RBC) [Ratio]13.7 %Wzsqwz66.0-15.0 [facility] HospitalComment on above:Performed By: #### CBC #### [facility] [address] [place] [address] Dr. Hugo YangHematocrit (Bld) [Volume fraction]42.1 %Uuwagm73.0-48.0The [facility] CampusComment on above:Performed By: #### CBC #### [facility] [address] [place] [address] Dr. Hugo YangHemoglobin (Bld) [Mass/Vol]13.3 g/nKYfqake19.0-16.0The [facility] CampusComment on above:Performed By: #### CBC #### [facility] [address] [place] [address] Dr. Hugo Hopkins #0.02 10e3/ulNormal0.00-0.03The [facility] CampusComment on above:Performed By: #### CBC #### [facility] [address] [place] [address] Dr. Hugo Hopkins %0.3 %Normal0.0-0.5The [facility] CampusComment on above: Performed By: #### CBC #### [facility] [address] [place] [address] Dr. Hugo Kay #1.9 103/ulNormal1.2-3.8The [facility] CampusComment on above:Performed By: #### CBC #### [facility] [address] [place] [address] Dr. Hugo Rioshocytes/100 WBC (Bld)29.2 %Fcrtvv73.5-60.0The [facility] CampusComment on above:Performed By: #### CBC #### [facility] [address] [place] [address] Dr. Hugo GuzmanUAL DIFF REQNONormalThe [facility] CampusComment on above: Performed By: #### CBC #### [facility] [address] [place] [address] Dr. Hugo Jimenez (RBC) [Entitic mass]30.4 okKyivsv93.7-34.0The [facility] CampusComment on above:Performed By: #### CBC #### [facility] [address] [place] [address] Dr. Hugo Jimenez (RBC) [Mass/Vol]31.6 g/oFOifipc61.9-35.2The [facility] CampusComment on above:Performed By: #### CBC #### [facility] [address] [place] [address] Dr. Hugo Wallace (RBC) [Entitic vol]96.3 zFLpbsac48.0-99.0The [facility] CampusComment on above:Performed By: #### CBC #### [facility] [address] [place] [address] Dr. Hugo Saavedra #0.6 103/ulNormal0.3-0.8The [facility] CampusComment on above:Performed By: #### CBC #### [facility] [address] [place] [address] Dr. Hugo Dumontocytes/100 WBC (Bld)8.5 %Normal1.7-12.0The [facility] Comment on above:Performed By: #### CBC #### [facility] [address] [place] [address] Dr. Hugo Tierney #3.8 103/ulNormal1.4-6.5The [facility] CampusComment on above:Performed By: #### CBC #### [facility] [address] [place] [address] Dr. Hugo Prattutrophils/100 WBC (Bld)58.4 %Xojave27.0-75.0The [facility] CampusComment on above:Performed By: #### CBC #### [facility] [address] [place] [address] Dr. Yilan ChangPlatelet mean volume (Bld) [Entitic vol]10.9 fLNormal9.5-13.5The [facility] CampusComment on above:Performed By: #### CBC #### [facility] [address] [place] [address] Dr. Hugo YangPLT163 103/uvIefvhl729-526Ncr [facility] CampusComment on above: Performed By: #### CBC #### [facility] [address] [place] [address] Dr. Hugo YangRBC4.37 106/ulNormal4.20-5.40The [facility] CampusComment on above:Performed By: #### CBC #### [facility] [address] [place] [address] Dr. Hugo YangWBC6.6 103/ulNormal4.0-11.0The [facility] CampusComment on above: Performed By: #### CBC #### [facility] [address] [place] [address] Dr. Hugo YangPROF CHEM 8 (BAS METB)on 00-37-5753Hfhyf gap [Moles/Vol]13.9 mmol/LNormalThe [facility] CampusComment on above:Performed By: #### FT3, TSH #### [facility] [address] [place] [address] Dr. Hugo YangCalcium [Mass/Vol]9.5 mg/dLNormal8.5-10.1The [facility] Comment on above:Performed By: #### FT3, TSH #### [facility] [address] [place] [address] Dr. Hugo YangChloride [Moles/Vol]105 mmol/DMkstvb44-104Qxa [facility] Comment on above:Performed By: #### FT3, TSH #### [facility] [address] [place] [address] Dr. Hugo YangCO2 [Moles/Vol]27.7 mmol/HDsxvct27.0-30.0The [facility] Comment on above:Performed By: #### FT3, TSH #### [facility] [address] [address] [address] Hugo YangCreatinine [Mass/Vol]1.19 mg/dLCritically high0.52-1.04The [facility] Hospitalment on above:Performed By: #### FT3, TSH #### [facility] [address] [address] [address] Arias ChangEGFR-AF CEJMWYNA92 mL/min/1.93u6Zogbtcgros low>=60The [facility] CampusComment on above:Performed By: #### FT3, TSH #### [facility] [address] [address] [address] Arias ChangEGFR-NON AF VUYDFLBU95 mL/min/1.34y6Tjvyiregxf low>=60The [facility] CampusComosf healthcare [facility] on above:Performed By: #### FT3, TSH #### [facility] [address] [place] [address] Dr. Hugo YangGlucose [Mass/Vol]112 mg/dLCritically dtny07-213Yje [facility] Hospitalment on above:Performed By: #### FT3, TSH #### [facility] [address] [address] [address] Hugo YangPotassium [Moles/Vol]4.6 mmol/LNormal3.4-5.0The [facility] Comment on above:Performed By: #### FT3, TSH #### [facility] [address] [address] [address] Hugo YangSodium [Moles/Vol]142 mmol/FKucmji337-933Lmx [facility] Comment on above:Performed By: #### FT3, TSH #### [facility] [address] [address] [address] Hugo YangUrea nitrogen [Mass/Vol]28.0 mg/dLCritically high7.0-18.0The [facility] on above:Performed By: #### FT3, TSH #### [facility] [address] [place] [address] Dr. Hugo YangUrea nitrogen/Creatinine [Mass ratio]23.5 mg/mgNormalThe [facility] CampusComment on above:Performed By: #### FT3, TSH #### [facility] [address] [place], [place] [address] Dr. Hugo Miranda, HIGH SENSITIVITYon 12-22-5400FHJEPY65.1 pg/mLNormal 4.0-35.5The [facility] on above:Result Comment: CUT-OFF POINTS HAVE BEEN ESTABLISHED BASED ON THE FOURTH UNIVERSAL DEFINITIONS OF MYOCARDIAL INFARCTION. THE UPPER REFERENCE LIMIT (URL) OF TROPONIN, DEFINED THE 99TH PERCENTILE OF cTnI DISTRIBUTION IN A REFERENCE POPULATION, HAS BEEN CONFIRMED THE DECISION THRESHOLD FOR [place] DIAGNOSIS.Performed By: #### FT3, TSH #### [facility] [address] [place], [place] [address] Dr. Hugo YangXR CHEST 1 Von [id number] CHEST 1 VEXAMINATION: XR CHEST 1 V [...] Electronically authenticated by: JOEL ANDINO Date: 2021-06-04 11:[address] [place], [place] [address]Cardiovascular Lab Reporton [id number] Lab Report [facility] MR #: [id number] Physician: Keanu Kline MD Department of Service Date: 12/28/2020 Medicine Birthdate: 1940 Division of Room #: CC Cardiology Adult Cardiovascular Services [address] [place] [address] Cardiovascular Laboratory Report AV NODE ABLATION PROCEDURE [...] prepped and draped. Under ultrasound guidance, an 8-Macedonian venous access was procured, and a short [...] P/Keanu Kline MD Date Trans: 12/28/2020 04:43 P/mmo DN_[id number] cc: Ole Yang M.D. [address] [facility] [address] [facility] [address] Charles HospitalCardiovascular Lab Reporton [id number] Lab ReportUnAvita Health System [facility] MR #: [id number] Physician: Keanu Kline MD Department of Service Date: 11/19/2020 Medicine Birthdate: 1940 Division of Room #: Cardiology Adult Cardiovascular Services [place] [address] Cardiovascular Laboratory Report PACEMAKER IMPLANT PROCEDURE NOTE DATE OF PROCEDURE: 11/19/20 PERFORMING PHYSICIAN: Dr. Keanu Kline CONSENT: Patient LOCATION: EP Lab PROCEDURE PERFORMED: 1. Implantation of pacemaker ([employer]) 2. Ultrasound guided venous access INDICATIONS: [...] using modified seldinger technique using a 5 Macedonian micro-puncture needle on one occasion and 0.35 wire was placed. Local infiltration of 1% Lidocaine was performed, and an incision was created in the left upper chest. Dissection was then performed using cautery down to the fascial plane above the muscle. A small pocket was created for the device. 8 Macedonian Safesheath was placed over the wire. Then a His sheath was advanced over a glide wire into the right ventricle. The wire and dilator was then removed. An active fixation [employer] pacing lead was then delivered through the His sheath to the right ventricle. I identified an area where pacing revealed a QRS of 120ms in unipolar configuration. After confirmation of lead position on orthogonal views (PATEL and CHILEAN) to confirm septal position, the screw was [...] immediate procedural complications were noted. Device info: [employer] Accolade MRI EL SR IS1 Model# L310 Serial# [id number] RV lead: Model# [id number] (59cms) Serial# [id number] Sensin.3mV Threshold: 0.6V@0.4ms Impedance: 655 Ohms POST [...] Date Dict: 11/19/2020 (more content not included)...NormalThe [facility] Vital Signs Date TimeVital SignValuePerforming EcscijjmbBmapyplk53-62-5259 08:58-0400Body xincbt026.2 cmOle Yang MD Work Phone: [phone] Interest CommunitiesSaint Alexius HospitalLxncvpqswp63-56-0413 08:58-0400Body mass index (BMI) [Ratio]27.88 kg/j4RjplijOle Yang MD Work Phone: [phone] CommunitiesSaint Alexius HospitalPubiavskxn98-01-4198 08:58-0400Body wiydkd57.74 kgOle Yang MD Work Phone: [phone] CommunitiesSaint Alexius HospitalRfzdbczagb42-50-0791 08:58-0400Diastolic blood hxlnxyft84 mm[Hg]Ole Yang MD Work Phone: NOSaint [facility]ius HospitalMpdejjwucv68-11-5938 08:58-0400Heart rate70 /min Ole Yang MD Work Phone: NOSaint [facility]ius HospitalAwqpkzjmsg83-78-0823 08:58-7313CeQ6% (BldA) [Mass fraction]98 %Ole Yang MD Work Phone: NOSaint [facility]ius HospitalXxpgvuaavi43-90-6759 08:58-0400Systolic blood mwsjzduk428 mm[Hg]Ole Yang MD Work Phone: NOSaint [facility]ius HospitalFqrgskqbnb05-19-9015 10:04-0400Body qucysn158.6 Irlanda Jo MD Work Phone: NOSaint [facility]ius HospitalGmjnbxxlas74-83-5399 10:04-0400Body mass index (BMI) [Ratio]30.9 kg/n5MwvzuTeri Jo MD Work Phone: [facility] CareUsaigjccgk96-68-2830 10:04-0400Body nyeizv13.65 kgTeri Jo MD Work Phone: [phone] CareVavlrovqwf72-75-6714 10:04-0400Heart rate69 /min Teri Jo MD Work Phone: [facility] CareBkhjsbxkwy77-05-1744 10:04-0400Respiratory rate16 /minTeri Jo MD Work Phone: [facility] CareElglzudlgo42-04-5366 10:04-6001KyC7% (BldA) [Mass fraction]95 %Teri Jo MD Work Phone: NOSaint [facility]ius HospitalPppjhjkcrn35-01-8919 14:25-0400Body kzjida969.2 cmOle Yang MD Work Phone: NOSaint [facility]ius HospitalHeporaolxa40-94-5886 14:25-0400Body mass index (BMI) [Ratio]28.66 kg/s1QefloaOle Yang MD Work Phone: NOSaint [facility] HospitalLmfqtxpnap20-38-3598 14:25-0400Body temperature 100.8 [degF]Ole Yang MD Work Phone: NOSaint [facility] HospitalDblhzkldnn93-89-2144 14:25-0400Body kuxkld68.01 kgOle Yang MD Work Phone: [facility] CareWeciienvik77-67-6332 14:25-0400Diastolic blood mm[Hg]Ole Yang MD Work Phone: [facility] CareSyxtrwkutr79-34-1105 14:25-0400Heart rate71 /min Ole Yang MD Work Phone: [place] [address]Dkptichffq69-69-6535 14:25-4667WbP9% (BldA) [Mass fraction]93 %Ole Yang MD Work Phone: [place] [address]Eirmdftwds46-60-0671 14:25-0400Systolic blood rtrpfekc997 mm[Hg]Ole Yang MD Work Phone: [facility] CareDzgmwxukag67-20-8726 15:05-0400Body .2 cmKaren Hemmer PA Work Phone: [phone])[facility]-6173SS[facility] Health CarePphwtqfisc98-23-5878 15:05-0400Body mass index (BMI) [Ratio]27.44 kg/d8Zufao Hemmer PA Work Phone: [facility] CareVlzibkcqtq67-48-5427 15:05-0400Body .47 kgKaren Hemmer PA Work Phone: [facility] CareCtqcwokiln74-64-2425 15:05-0400Diastolic blood cjaoupau37 mm[Hg]Dipti Hemmer PA Work Phone: [facility] CareVrndcudxrc00-25-6589 15:05-0400Heart rate71 /min Dipti Hemmer PA Work Phone: [facility] CareVhuirbrlkw26-50-8714 15:05-0400Respiratory rate16 /minSamen Hemmer PA Work Phone: [facility] CareVmjlcirewm92-84-0755 15:05-4745EpV5% (BldA) [Mass fraction]99 %Dipti Hemmer PA Work Phone: [facility] CareTvtycnhxgf39-98-3573 15:05-0400Systolic blood wahyrnkz488 mm[Hg]Dipti Hemmer PA Work Phone: [place] [address]Xhmtuakkfz27-46-4871 16:49-0400Inhaled oxygen flow rate2 L/minMichael Zapien Work Phone: 1(082)[address] [place], [place] 8141109-18-2025 16:00-0400 Body btgdfthflee23.1 [degF]Michael Zapien Work Phone: [phone])[address] [place], [place] [address]14[address]9-18-2025 16:00-0400 Diastolic blood zlifnigd80 mm[Hg]Michael Zapien Work Phone: [phone]09-18-2025 16:00-0400 Heart rate69 /minMichael Zapien Work Phone: 1(846)[address] [place], [place] 814[address]9-18-2025 16:00-0400 Respiratory rate18 /Bunny Zapien Work Phone: [phone])[address] [place], [place] 814[address]9-18-2025 16:00-0400 SaO2% (BldA) [Mass fraction]97 %Michael Zapien Work Phone: 1(332)[address] [place], [place] [address]14[address]9-18-2025 16:00-0400 Systolic blood yjapatvz611 mm[Hg]Michael Zapien Work Phone: 1(336)[address] [place], [place] 8[address]9-18-2025 06:00-0400 Body xxoyza84 kgMichael Zapien Work Phone: 1(895)[address] [place], [place] [address]9-16-2025 14:00-0400 Body gwkvlu338.18 cmRichbunny Zapien Work Phone: [phone]09-15-2025 23:07-0400 Diastolic blood cjxgjcha30 mm[Hg]Ole Yang II Work Phone: [facility]09-15-2025 23:07-0400 Heart rate69 /minDaniel Yang II Work Phone: [facility]09-15-2025 23:07-0400 Inhaled oxygen flow rate2 L/minDaniel Yang II Work Phone: [facility]09-15-2025 23:07-0400 Respiratory rate20 /minDaniel Yang II Work Phone: 1(413)264-[address] [place], [place] [address]409-15-2025 23:07-0400 SaO2% (BldA) [Mass fraction]100 %Ole Yang II Work Phone: [phone])[address] [place], [place] 5062609-15-2025 23:07-0400 Systolic blood phbysnms303 mm[Hg]Ole Yang II Work Phone: 1(770)[address] [place], [place] 5062609-15-2025 17:32-0400 Body vwdjbqojmzx00.9 [degF]Ole Yang II Work Phone: 1(349)[address] [place], [place] 5062609-15-2025 15:58-0400 Body tqpsee540.18 cmOle Yang II Work Phone: 1(822)[address] [place], [place] 5062609-15-2025 15:58-0400 Body asbwbp87.65 kgOle Yang II Work Phone: 1(809)[address] [place], [place] 5062609-15-2025 13:32-0400 Body mtruss046.2 cmOle Yang MD Work Phone: 1(007)[facility]-[address] [place], [place] [address]Wqqkvhmnym17-20-8415 13:32-0400Body mass index (BMI) [Ratio]26.47 kg/q3XsazxjOle Yang MD Work Phone: 1(192)[facility]-[address] [place], [place] [address]Acalvfqviu53-14-0274 13:32-0400Body knurco69.66 kgOle Yang MD Work Phone: [phone])[facility]-[address] [place], [place] [address]Zmpoaizlmx86-03-7987 13:32-0400Diastolic blood sizmukkj22 mm[Hg]Ole Yang MD Work Phone: 1(129)770-[address] [place], [place] [address]Xbmbzrchwh84-18-5938 13:32-0400Heart rate71 /min Ole Yang MD Work Phone: 1(822)903-[address] [place], [place] [address]Znekoketyv41-12-3760 13:32-2692StW0% (BldA) [Mass fraction]100 %Ole Yang MD Work Phone: [facility] CareCeykbkdmiv27-19-9064 13:32-0400Systolic blood ieohrrxx800 mm[Hg]Ole Yang MD Work Phone: 1(419)483-[address] [place], [place] [address]Breacyjsum33-05-0831 10:46-0400Body atuvmt567.2 cmNicole Baum GLOBAL CEO Work Phone: [facility] CareElqnexodzs04-40-6332 10:46-0400Body mass index (BMI) [Ratio]26.78 kg/m2Nicole Baum GLOBAL CEO Work Phone: [place] [address]Cyqzonxfrr10-30-8266 10:46-0400Body .56 kgNicole Baum GLOBAL CEO Work Phone: [facility] CareXxkxgosgxv58-17-7505 10:46-0400Diastolic blood mm[Hg]Nicole Baum GLOBAL CEO Work Phone: [facility] CareLzuoakmrgf68-53-4659 10:46-0400Heart rate69 /min Nicole Baum GLOBAL CEO Work Phone: [facility] CareEghrwgaqvv10-94-0086 10:46-0400Respiratory rate17 /minNicole Baum GLOBAL CEO Work Phone: [facility] CareSidoxqlump32-87-9972 10:46-3324YnW8% (BldA) [Mass fraction]96 %Nicole Baum GLOBAL CEO Work Phone: [facility] CareKosmksdzkh46-89-9008 10:46-0400Systolic blood xkeairdg342 mm[Hg]Nicole Baum GLOBAL CEO Work Phone: [facility] CareJcuuqjibtn66-11-1356 09:39-0400Body ygktdr247.2 cmKenneth Skinner DPM Work Phone: [facility] CareNzblgpivrt60-65-0028 09:39-0400Body mass index (BMI) [Ratio]26.94 kg/x9HvihghqlKenneth Skinner DPM Work Phone: [facility] CareCkgsmctccf55-38-6844 09:39-0400Body .02 kgKenneth Skinner DPM Work Phone: [facility] CareUxbqwnbyzh16-26-0110 09:39-0400Respiratory rate18 /minKenneth Skinner DPM Work Phone: noSaint Alexius HospitalKkdorgcdmn66-31-6508 09:59-0400Body ondnrm447.6 Neal Yang MD Work Phone: NOS[facility] HospitalKpsvxyehhp85-70-6042 09:59-0400Body mass index (BMI) [Ratio]27.92 kg/i4LbjeoaOle Yang MD Work Phone: NOS[facility] HospitalJukhpnzeqg12-71-0938 09:59-0400Body gdgiwj46.47 kgOle Yang MD Work Phone: NOS[facility] HospitalHyalygswdo69-54-1325 09:59-0400Diastolic blood irssqdtm80 mm[Hg]Ole Yang MD Work Phone: NOS[facility] HospitalHxcuoqiwsk46-87-6556 09:59-0400Heart rate70 /min Ole Yang MD Work Phone: NOS[facility] HospitalRleygbloqu78-51-3029 09:59-4486ImV8% (BldA) [Mass fraction]98 %Ole Yang MD Work Phone: NOS[facility] HospitalCiyocyugfl77-60-3296 09:59-0400Systolic blood mm[Hg]Ole Yang MD Work Phone: [facility]OS[facility] HospitalXjhnxrroll45-26-9815 14:30-0400Body paibcu586.6 cmOle Yang MD Work Phone: NOS[facility] HospitalRnvebejfre00-75-8028 14:30-0400Body mass index (BMI) [Ratio]27.76 kg/u1IgchlcOle Yang MD Work Phone: NOS[facility] HospitalCuhefzsxak23-40-8090 14:30-0400Body dberuk50.02 kgOle Yang MD Work Phone: NOS[facility] HospitalOugmhkoymr08-76-5836 14:30-0400Diastolic blood aufbshzd52 mm[Hg]Ole Yang MD Work Phone: NOS[facility] HospitalQjsalyewbw18-68-3688 14:30-0400Heart rate70 /min Ole Yang MD Work Phone: NOS[facility] HospitalFlabviobzz25-15-3414 14:30-0400Respiratory rate17 /minDprince Yang MD Work Phone: NOS[facility] HospitalKyxkdfwknl19-75-1397 14:30-6131NmW7% (BldA) [Mass fraction]99 %Ole Yang MD Work Phone: noSaint Alexius HospitalZrysjnnapz08-67-6856 14:30-0400Systolic blood mm[Hg]Ole Yang MD Work Phone: VASaint Alexius HospitalJfbgyjghxu34-91-6292 09:47-0400Body lakhqo818.6 cmKaren Hemmer PA Work Phone: NOS[facility] HospitalDezhqbnmso51-87-8143 09:47-0400Body mass index (BMI) [Ratio]28.47 kg/e7Jlawr Hemmer PA Work Phone: [place] [address]Xzsvaqyowz79-84-4971 09:47-0400Body temperature 99.19 [degF]Dipti Hemmer PA Work Phone: KZSaint Alexius HospitalHzmhgfjgxv05-76-8753 09:47-0400Body xfyjll37.02 kgKaren Hemmer PA Work Phone: [facility] CareNztxdulqha08-43-1823 09:47-0400Diastolic blood iwmtfbbc43 mm[Hg]Dipti Hemmer PA Work Phone: NOSaint [facility]ius HospitalEvxsyjfvos85-35-1765 09:47-0400Heart rate70 /min Dipti Hemmer PA Work Phone: NOS[facility] HospitalPpubcwrkdv04-49-7993 09:47-0400Respiratory rate16 /minKaren Hemmer PA Work Phone: NOS[facility] HospitalCocumxqogu50-60-9066 09:47-7004XlB8% (BldA) [Mass fraction]99 %Dipti Hemmer PA Work Phone: NOS[facility] HospitalNzayalixio49-17-8558 09:47-0400Systolic blood ixtsugze872 mm[Hg]Dipti Hemmer PA Work Phone: NOS[facility] HospitalDuddlpqgwa48-40-8562 10:07-0400Body yftulb165.2 Irlanda Jo MD Work Phone: noSaint Alexius HospitalNnqolteubv63-16-4898 10:07-0400Body mass index (BMI) [Ratio]27.88 kg/d1FxeeeTeri Jo MD Work Phone: [facility] CareHjgxrwljbs91-73-8320 10:07-0400Body .74 kgTeri Jo MD Work Phone: [facility] CareQestzhiten04-60-0407 10:07-0400Diastolic blood mm[Hg]Teri Jo MD Work Phone: [facility] CareClgeunjlpt10-04-3265 10:07-0400Heart rate70 /min Teri Jo MD Work Phone: [facility] CareXhmfvvvjig79-78-4655 10:07-0400Respiratory rate16 /minTeri Jo MD Work Phone: [facility] CareGnhsibrawo61-12-2979 10:07-7707QwW2% (BldA) [Mass fraction]89 %Teri Jo MD Work Phone: [facility] CareIlkqdgbxyr97-19-5906 10:07-0400Systolic blood zokzdxcq239 mm[Hg]Teri Jo MD Work Phone: [facility] CareBxwvdcgaub41-98-0384 09:57-0500Body koswtb438.6 cmOle Yang MD Work Phone: [facility] CareToatjyfctt83-75-5540 09:57-0500Body mass index (BMI) [Ratio]28.25 kg/e2OfifybOle Yang MD Work Phone: [facility] CareAgtrssevtd28-23-9196 09:57-0500Body .38 kgOle Yang MD Work Phone: NOSaint [facility]ius HospitalLjdeywcnun66-70-1740 09:57-0500Diastolic blood mm[Hg]Ole Yang MD Work Phone: [facility] CareJzkitexivr61-67-6146 09:57-0500Heart rate69 /min Ole Yang MD Work Phone: NOSaint Alexius HospitalZdqdvptpcj26-69-8395 09:57-5992RzM7% (BldA) [Mass fraction]98 %Ole Yang MD Work Phone: [facility] CareHldlkjjzen03-31-6725 09:57-0500Systolic blood safcgfxt832 mm[Hg]Ole Yang MD Work Phone: [facility] CareNcketogdlf98-62-9930 10:03-0500Body .6 cmSamen Hemmer PA Work Phone: [facility] CareOtwvmgbion01-50-8032 10:03-0500Body mass index (BMI) [Ratio]28.89 kg/v3Vcgsx Hemmer PA Work Phone: [facility] CareVqfbdozqzm14-30-4178 10:03-0500Body gobiwd97.19 kgKaren Hemmer PA Work Phone: [facility] CareKilcwmyqpy11-26-6776 10:03-0500Diastolic blood aatbwdoc82 mm[Hg]Dipti Hemmer PA Work Phone: [facility] CareJampvziobk18-70-6088 10:03-0500Heart rate74 /min Dipti Hemmer PA Work Phone: [facility] CareOuzdhirkks36-63-7982 10:03-0500Respiratory rate20 /minKaren Hemmer PA Work Phone: [facility] CarePmnnjkpbmv44-47-9116 10:03-6139EeJ1% (BldA) [Mass fraction]99 %Dipti Hemmer PA Work Phone: [facility] CareKltnwllvxk58-70-7907 10:03-0500Systolic blood mm[Hg]Dipti Hemmer PA Work Phone: [facility] CareCarfmwxzqm25-89-1680 10:08-0400Body ealeqb064.6 Irlanda Jo MD Work Phone: [facility] CarePxcyhiijmt62-07-3004 10:08-0400Body mass index (BMI) [Ratio]28.73 kg/h7EwvolTeri Jo MD Work Phone: NOSaint Alexius HospitalKfmvaothts45-59-8264 10:08-0400Body ehhvjy78.74 kgTeri Jo MD Work Phone: [facility] CareMcrpkkpvjo22-04-6079 10:08-0400Diastolic blood uwwizqvc12 mm[Hg]Teri Jo MD Work Phone: [facility] CareFeexqmjyrv24-88-0080 10:08-0400Heart rate87 /min Teri Jo MD Work Phone: [facility] CareMyoqtikqwb38-15-7451 10:08-0400Respiratory rate18 /minTeri Jo MD Work Phone: [facility] CareMtgomerazo94-65-1088 10:08-0400Systolic blood mm[Hg]Teri Jo MD Work Phone: [facility] CareOmebwcsdca22-61-1926 09:56-0400Body vecfcr223.2 cmKaren Hemmer PA Work Phone: [facility] CareNsctfjopok26-01-4298 09:56-0400Body mass index (BMI) [Ratio]27.82 kg/f7Fdgjy Hemmer PA Work Phone: [facility] CarePeubeibrew38-07-4505 09:56-0400Body gijeyi84.56 kgKaren Hemmer PA Work Phone: [facility] CareFcgbyksixb60-96-3523 09:56-0400Diastolic blood vaqemlxp09 mm[Hg]Dipti Hemmer PA Work Phone: noMT HealthcareComment on above:home BP monitor 141/81 11-26-2023 09:56-0400Heart rate71 /minKaren Hemmer PA Work Phone: [facility] CareFewsuopign58-65-4313 09:56-0400Respiratory rate16 /minKaren Hemmer PA Work Phone: [facility] CareKtnxrtvaeo96-67-2173 09:56-8067NsE0% (BldA) [Mass fraction]99 %Dipti Hemmer PA Work Phone: [facility] CareGcameksyol21-84-6604 09:56-0400Systolic blood mm[Hg]Dipti Hemmer PA Work Phone: noMT HealthcareComment on above:home BP monitor 141/81 02-11-2023 14:43-0500Body qdarsi535.2 cmOle Yang MD Work Phone: NOSaint Alexius HospitalUmrrnfwvts62-15-3249 14:43-0500Body mass index (BMI) [Ratio]26.94 kg/l9PyjyydOle Yang MD Work Phone: NOSaint Alexius HospitalVonafbqphq63-89-8767 14:43-0500Body .02 kgOle Yang MD Work Phone: NOS[facility] HospitalFnlbthaquz79-66-5993 14:43-0500Diastolic blood vvsgtkve03 mm[Hg]Ole Yang MD Work Phone: NOSaint [facility]ius HospitalInfeumlrfv98-19-2826 14:43-0500Heart rate76 /min Ole Yang MD Work Phone: NOSaint Alexius HospitalKqgudwuufm82-96-5145 14:43-0500Systolic blood yzfkowlw893 mm[Hg]Ole Yang MD Work Phone: [facility] Encounters Encounter DateEncounter TypeCare ProviderFacilityStart: 46-40-8087cxcyncdfbePOYFMercy Health Kings Mills Hospitaltart: 12-21-2024 End: 34-19-4323Avuvxfthn encounterJennifer Gayathri Wayne NP Work Phone: [facility] MedinceStart: 12-16-2024 End: 28-07-5270Piijpjamg Result EncounterGeneric External Data ProviderNOMS External Department UnsolicitedStart: 12-16-2024 End: 67-14-3946Szutluabg Result EncounterGeneric External Data ProviderNOMS External Department UnsolicitedStart: 12-14-2024 End: 43-23-8849Obgdoe flowsheetOle Yang MD Work Phone: [facility] MedinceStart: 12-14-2024 End: 27-24-6449Qilhxi flowsPierre Yang MD Work Phone: [facility] MedinceStart: 12-14-2024 End: 71-59-8611Fhtvdu outpatient visit 25 minutesDakylie Yang MD Work Phone: NOUD [facility] MedinceComment on above:Type 2 diabetes mellitus with other specified complication, without long-term current use of insulin (HCC) (Primary Dx); Chronic combined systolic (congestive) and diastolic (congestive) heart failure (HCC); 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; Hyperthyroidism; Pure hypercholesterolemia; Chronic kidney disease, stage 3b ([facility]-HCC)Start: 12-14-2024 End: 22-64-6137efjtpriyorPUANUP B BERRYNot AvailableStart: 12-12-2024 End: 61-62-1828ggoamdyeofQFHZMercy Health West Hospitaltart: 11-30-2024 End: 10-52-9976Cgtmsv Antonio Jo MD Work Phone: NOXC [place] EndocrinologyStart: 11-30-2024 End: 04-52-4698Ufzkonlarissa Jo MD Work Phone: NORG [place] EndocrinologyStart: 11-30-2024 End: 10-45-6910Gmgevl outpatient visit 25 Conner Jo MD Work Phone: noms [place] EndocrinologyComment on above: Hyperthyroidism (Primary Dx); Multinodular goiter; Longstanding persistent atrial fibrillation (HCC)Start: 11-30-2024 End: 14-63-9461esdmeprdesPEZMKNickolas Feliciano AvailableStart: 11-28-2024 End: 13-15-3953Fnobfy outpatient visit 25 Gabriel Yang MD Work Phone: NONE [facility] [place] [facility] MedinceComment on above: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) (Primary Dx); Acute bronchitis, unspecified organismStart: 11-28-2024 End: 30-47-4316dqqzhaticdPBITPU B BERRYNot AvailableStart: 11-28-2024 End: 63-81-3058Redjjh Anson Yang MD Work Phone: [facility] [place] [facility] MedinceStart: 11-28-2024 End: 65-64-6960Khdmyllarissa Yang MD Work Phone: noms [facility] MedinceStart: 75-83-6256bupbrcnikd PAUL [facility] Hospitaltart: 11-21-2024 End: 97-10-9119fsleczdxtuJwbpob Berry II Work Phone: [facility] Work Phone: Start: 11-21-2024 End: 70-36-1899Aywfrfl encounter procedureKenneth Jung [facility] Work Phone: Start: 11-15-2024 End: 12-46-1029uzoasmepfvOlwzrk Berry Work Phone: [facility] Work Phone: Start: 11-15-2024 End: 40-86-6025Siwqcne encounter procedureKenneth Jung [facility] Work Phone: Start: 31-92-4444pyistitjgoAJVEKettering Health Main Campustart: 99-13-4861Dtytdbdmt for preprocedural cardiovascular examinationKettering Health Main Campustart: 11-08-2024 End: 35-75-4753Bqiucplqvbqq care manage srvc 7 day dischargeDipti VEGA Work Phone: noms [facility] Medical CentereComment on above: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); Panlobular emphysema (HCC); Frequent falls; History of stroke without residual deficits; Supplemental oxygen dependent; Age-related osteoporosis without current pathological fracture ; Hyperkalemia; Impaired fasting glucose; Chronic kidney disease, stage 3b (CMS-HCC); Essential hypertensionStart: 11-08-2024 End: 28-76-3811khdqzuieyqINPQFSindhu Cruz AvailableStart: 11-08-2024 End: 26-01-6517Tspyvglarissa VEGA Work Phone: noms [facility] MedinceStart: 11-08-2024 End: 07-34-8055Swlxxj Noble VEGA Work Phone: NOXO [facility] MedinceStart: 11-07-2024 End: 57-64-3014isuimhzurbKxelzp Berry II Work Phone: [facility] Work Phone: Start: 11-07-2024 End: 58-61-3895Kkfnctu encounter procedureKenneth Jung [facility] Work Phone: Start: 39-55-9430Toc-patient / Non-visitMMansoor Adkins-[facility]hythm ClinicStart: 10-31-2024 End: 68-70-4300Wbpjceyumc and management of inpatientkathleen Blake[address] Critical Care Work Phone: Start: 43-40-2095Kmz-patient / Non-visitAdam [facility]aSelect [facility] Work Phone: Start: 10-31-2024 End: 52-02-5928Ivyoae Anson Yang MD Work Phone: NOJI [facility] Medical CenternceStart: 10-31-2024 End: 52-88-9845Skwxqhstacy Yang MD Work Phone: NORL [facility] MedinceStart: 10-31-2024 End: 73-08-1499Fkxukl outpatient visit 40 minutesOle Yang MD Work Phone: NOYT [facility] MedinceComment on above:Mild cognitive impairment (Primary Dx); Major depressive disorder, remission status unspecified, unspecified whether recurrent ; Chronic combined systolic (congestive) and diastolic (congestive) heart failure (HCC); Memory changes; Anxiety; Right sided sciatica; Impaired gait and mobilityStart: 10-31-2024 End: 98-32-5339tgjwttlbuhDMUEXB B BERRYNot AvailableStart: 10-19-2024 End: 83-90-3703Vfevbynmg Result EncounterNicole Baum GLOBAL CEO Work Phone: NOMS External Department UnsolicitedStart: 10-19-2024 End: 13-38-5634Botiskrdf Result EncounterNicole Baum GLOBAL CEO Work Phone: NOLN External Department UnsolicitedStart: 10-13-2024 End: 70-67-4236Fmzdna Messi Skinner DPM Work Phone: NOMS CI PODIATRYStart: 10-13-2024 End: 25-75-9469Tgehnr Messi Skinner DPM Work Phone: NOMS CI PODIATRYStart: 10-13-2024 End: 98-84-2931Lqoica outpatient visit 25 minutesNicole Baum GLOBAL CEO Work Phone: NOVU [facility] MedinceComment on above:Dementia with behavioral disturbance (HCC) (Primary Dx); Age-related osteoporosis without current pathological fracture ; Fatigue, unspecified type; Anxiety; Right sided sciatica; Chronic respiratory failure, unspecified whether with hypoxia or hypercapnia (HCC); Chronic respiratory failure with hypoxia (HCC)Start: 10-13-2024 End: 49-30-1728cssulibsgeILL C MILLERNot AvailableStart: 10-13-2024 End: 28-08-5051Rbitql outpatient new 30 minutesKenneth Skinner DPM Work Phone: NOJZ CI PODIATRYComment on above:Venous insufficiency (Primary Dx); Deformity of toenail; Pain due to onychomycosis of toenails of both feetStart: 48-52-1035iusywsojdl [facility]tart: 09-26-2024 End: 83-89-1735Gzvvonxnn Result EncounterOle Yang MD Work Phone: NOMS External Department UnsolicitedStart: 09-26-2024 End: 60-74-8511Wyjjqrfhc Result EncounterOle Yang MD Work Phone: NOGO External Department UnsolicitedStart: 09-26-2024 End: 78-27-4180Mbqrpntw Result EncounterOle Yang MD Work Phone: noms External Department UnsolicitedStart: 09-26-2024 End: 70-17-5877xbhboviroxFovvoh [facility] Work Phone: Start: 09-26-2024 End: 60-02-6510Alkgtnym Sandeep Yang II, MD-LAB [facility] Start: 09-14-2024 End: 01-23-0072Rjoyjq flowsheetOle Yang MD Work Phone: noms [place] [facility] MedinceStart: 09-14-2024 End: 85-74-9995Dmgerg flowsPierre Yang MD Work Phone: noms [place] [facility] MedinceStart: 09-14-2024 End: 56-88-0461Efxfjj outpatient visit 25 minutesOle Yang MD Work Phone: noms [place] [facility] MedinceComment on above:Chronic kidney disease, stage 3b (CMS-HCC) (Primary Dx); Chronic combined systolic (congestive) and diastolic (congestive) heart failure (HCC); Supplemental oxygen dependent; Anxiety; Hyperthyroidism ; 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 ; Panlobular emphysema (HCC); Deformity of toenailStart: 09-14-2024 End: 05-05-9587otlunwosvvFFAFID B BERRYNot AvailableStart: 09-06-2024 End: 08-48-8822RgklppUbqvxp B [place] MD Work Phone: noms CI FMComment on above:AnxietyStart: 09-02-2024 ambulatoryBLAIR GRUBBUniversity of Hemphill County Hospitaltart: 08-18-2024 End: 56-40-3785Aatussiat Result EncounterGeneric External Data ProviderNOMS External Department UnsolicitedStart: 08-18-2024 End: 21-04-2704Exndlftcm Result EncounterGeneric External Data ProviderNOMS External Department UnsolicitedStart: 08-15-2024 End: 82-65-4479Jajwxj outpatient visit 25 minutesDakylie Yang MD Work Phone: NOMS CI FMComment on above:Dementia with behavioral disturbance (HCC) (Primary Dx); Pulmonary emphysema, unspecified emphysema type (HCC); Hypoxia; Chronic combined systolic (congestive) and diastolic (congestive) heart failure (HCC); Chronic kidney disease, stage 3b (CMS-HCC); 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Start: 08-15-2024 End: 52-98-2089fernjnzevrCZKJBM B BERRYNot AvailableStart: 08-15-2024 End: 26-34-2833Sklwbftsacy Yang MD Work Phone: NOMS CI FMStart: 08-15-2024 End: 37-11-5648Jqdubilarissa Yang MD Work Phone: NOMS CI FMStart: 08-11-2024 End: 42-33-4686aabxluhxyhHBBLV Memorial Hospitaltart: 58-04-7683kfkyqsviakYDIRKettering Health Main Campustart: 07-22-2024 End: 62-95-7395Fioqpnckc Result EncounterGeneric External Data ProviderNOMS External Department UnsolicitedStart: 07-22-2024 End: 91-87-8874Kxqjwdclq Result EncounterGeneric External Data ProviderNOMS External Department UnsolicitedStart: 07-22-2024 End: 54-38-5561gsdpdpgxejGgrer T RodgerPromedica Flower [facility]tr Work Phone: Start: 07-22-2024 End: 80-81-5567Tovyetbr Russellbunny Curry Work Phone: [facility]-LAB Path Spec [facility] HospStart: 07-19-2024 End: 08-92-1298ptxwsywuxcTFDH [facility] Hospitaltart: 07-07-2024 End: 13-20-9792mplekatyymNEQJYSindhu Cruz AvailableStart: 19-77-1833uachxqtift PAUL [facility] Hospitaltart: 06-02-2024 End: 19-07-5680Wvvhibw encounter Stalin VEGA Work Phone: noMS FMComment on above:Medicare annual wellness visit, subsequent [...] of left ventricle; 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); Primary hypertension [...] failure; Anxiety; Current use of long term care social worker anticoagulation; Diplopia; Elevated liver enzymes; Frequent falls; History of stroke without residual deficits; Memory changes; 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); COPD exacerbation (CMS/HCC)Start: 06-02-2024 End: 94-70-4364bqxkxevkijWMXECSindhu Cruz AvailableStart: 06-01-2024 End: 60-54-2531Zbltnwstacy Jo MD Work Phone: noms ENDOCRINOLOGYStart: 06-01-2024 End: 83-48-2358Untjqgstacy Jo MD Work Phone: noms ENDOCRINOLOGYStart: 06-01-2024 End: 41-51-2079Ohgohn outpatient visit 25 minutesTeri Jo MD Work Phone: NOMS SH ENDOCRINOLOGYComment on above:Hyperthyroidism (CMS/HCC) (Primary Dx); Multinodular goiter (CMS/HCC); Longstanding persistent atrial fibrillation (CMS/HCC)Start: 06-01-2024 End: 74-33-7113npesqcgegqOUTLT F SABBAGHNot AvailableStart: 49-25-1298pwvdugfksxAkron Children's Hospitaltart: 05-23-2024 End: 73-52-1362Jwaqjpmla Result EncounterGeneric External Data ProviderNOMS External Department UnsolicitedStart: 05-23-2024 End: 96-91-0611Sueazfczp Result EncounterGeneric External Data ProviderNOMS External Department UnsolicitedStart: 05-12-2024 End: 10-73-3134PdeqdxJouyj Dumaedlyn LPNNOMS CI FMComment on above:AnxietyStart: 69-38-2120zsszxzjmelCPNX [facility] Hospitaltart: 03-30-2024 End: 45-38-7086Sshvvb Anson Yang MD Work Phone: NOMS CI FMStart: 03-30-2024 End: 72-80-9859Vfowlslarissa Yang MD Work Phone: NOMS CI FMStart: 03-30-2024 End: 27-07-9419Txhmrp outpatient visit 10 minutesDakylie Yang MD Work Phone: NOMS CI FMComment on above:Pulmonary emphysema, unspecified emphysema type (CMS/HCC) (Primary Dx); Age-related osteoporosis without current pathological fracture (CMS/HCC)Start: 03-30-2024 End: 50-86-7087wdzoqgyurgURSALV B BERRYNot AvailableStart: 63-02-2079xfkwjpgyxkAkron Children's Hospitaltart: 02-25-2024 End: 66-61-9702Tylbno Noble VEGA Work Phone: NOMS CI FMStart: 02-25-2024 End: 94-57-7745Kpzilq Noble VEGA Work Phone: NOMS FMStart: 02-25-2024 End: 25-32-6020Kcelbc outpatient visit 25 minutesDipti VEGA Work Phone: NOMS FMComment on above:Panlobular emphysema (CMS/HCC) (Primary Dx); Benign hypertensive heart disease with heart failure (CMS/HCC); Impaired fasting glucose; 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); Age-related osteoporosis without current pathological fracture (CMS/HCC); Cardiomyopathy, unspecified (CMS/HCC); Longstanding persistent atrial fibrillation (CMS/HCC); Chronic obstructive pulmonary disease, unspecified (CMS/HCC); Chronic kidney disease, stage 3b (HCC) (CMS/HCC); 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); Chronic atrial fibrillation, unspecified (CMS/HCC); Supplemental oxygen dependentStart: 02-25-2024 End: 22-32-8967yelcdcdrdpFWXXF M HEMMERNot AvailableStart: 57-82-0164cgfowiholv PAUL [facility] Hospitaltart: 01-25-2024 End: 23-03-1880jknlacbdntDDMLN Memorial Hospitaltart: 12-02-2023 End: 26-02-5118Rjrtlxlarissa Jo MD Work Phone: NOMS ENDOCRINOLOGYStart: 12-02-2023 End: 70-65-0443Uginmzlarissa Jo MD Work Phone: NOMS ENDOCRINOLOGYStart: 12-02-2023 End: 87-59-6200Bdvlsc outpatient visit 25 minutesTeri Jo MD Work Phone: NOMS ENDOCRINOLOGYComment on above:Hyperthyroidism (CMS/HCC) (Primary Dx); Multinodular goiter (CMS/HCC); Longstanding persistent atrial fibrillation (CMS/HCC)Start: 11-26-2023 End: 17-37-7015Vvhiuv sukhdeveGly Jaguar Maryann VEGA Work Phone: NOMS CI FMStart: 11-26-2023 End: 26-91-3752Jtzndg sukhdevtodDipti Montesinos Maryann VEGA Work Phone: NOMS CI FMStart: 11-26-2023 End: 82-85-5980Fmpwlaytw Result EncounterGeneric External Data ProviderNOMS External Department UnsolicitedStart: 11-26-2023 End: 70-19-9807Lvtqti outpatient visit 25 minutesDipti Montesinos Maryann VEGA Work Phone: noms CI FMComment on above:Pulmonary emphysema, unspecified emphysema type (CMS/HCC) (Primary Dx); Need for vaccination; Dyspnea on exertion; Hypoxia; Primary hypertension (CMS/HCC); 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); Acute bronchitis, unspecified organismStart: 10-29-2023 End: 50-00-0525GxtelgYvdmn Jaguar VEGA Work Phone: NOMS CI FMComment on above:AnxietyStart: 08-07-2023 End: 55-64-3311Ddrzielux Result EncounterGeneric External Data ProviderNOMS External Department UnsolicitedStart: 08-07-2023 End: 14-07-9778Tnilkmlhe Result EncounterGeneric External Data ProviderNOMS External Department UnsolicitedStart: 08-06-2023 End: 55-17-3020Yecyahwpd Result EncounterGeneric External Data ProviderNOMS External Department UnsolicitedStart: 08-06-2023 End: 27-39-1774Gejmpspkc Result EncounterGeneric External Data ProviderNOMS External Department UnsolicitedStart: 07-08-2023 End: 31-85-9486Djgidxbcw Result EncounterGeneric External Data ProviderNOMS External Department UnsolicitedStart: 07-08-2023 End: 38-43-8968Jycjtmvno Result EncounterGeneric External Data ProviderNOMS External Department UnsolicitedStart: 04-27-2023 End: 78-67-3745tydouvhjlePKCEMZMassena Memorial Hospital Ambulatory PPGStart: 04-27-2023 End: 15-58-1403Cvaqtd outpatient visit 15 minutesEliel Nichols OD Work Phone: [facility] Vision AssociatesComment on above:Esotropia of right eye (Primary Dx); Right abducens nerve palsy; Double visionStart: 02-16-2023 End: 41-47-4787Igrajemmv Result EncounterDakylie Yang MD Work Phone: NOTA External Department UnsolicitedStart: 02-16-2023 End: 12-22-1987Qjtfabzwl Result EncounterDakylie Yang MD Work Phone: noms External Department UnsolicitedStart: 02-11-2023 End: 73-84-6810Wuegbu outpatient visit 15 minutesOle Yang MD Work Phone: NOYO CI FMComment on above:Leg hematoma, right, initial encounter (Primary Dx); Current use of long term care social worker anticoagulation; Localized edemaStart: 05-14-2022 End: 33-52-1741csktzumenuUKJMO SABBAGHFacility:Y3Bmjop: 03-19-2022 End: 10-60-2699lewmskcpgsGU DIPTI Montesinos HEMMERFacility:N1Zlmoe: 12-23-2021 End: 58-91-1188heffueptfeAXIGLLW TUCKERFacility:V8Kezfr: 11-25-2021 End: 30-91-2026tasbnsgusuFXKBF SABBAGHFacility:Y7Hhkgt: 09-04-2021 End: 55-76-7353zuoghtxjojYZGTHHY TUCKERFacility:J4Ajnio: 14-55-8821Qlvvkvxcp for other preprocedural examinationMELUK Healthcare HospitalStart: 23-90-0551Sgzndfrrm for preprocedural laboratory examinationMELBlanchard Valley Health System [facility] Hospitaltart: 08-22-2021 End: 05-95-4147lvrufoecufKFCX CHACKOFacility:F8Imzjg: 08-21-2021 End: 91-34-0303pelcsremkwZEES CHACKOFacility:UTMCStart: 08-20-2021 End: 32-89-4225nsuqarzvcuSLJIDKB TUCKERFacility:J7Gzton: 08-20-2021 End: 75-95-9768Vlgzjxpmx for other preprocedural examinationMELINDA CHERY Facility:E0Irnzr: 07-30-2021 End: 07-75-6524fgtkpyslimTLXSRPI TUCKERFacility:T0Drazf: 06-28-2021 End: 73-13-4469uzwchvzqglSTVAZQU BOESFacility:U8Oyxxr: 63-22-6641Mbllitoip for other specified special examinationsMELASCENSION SOUTHEAST WISCONS[facility] FRANKLIN CAMPUSA Luther[facility] Hospital HospitalStart: 06-18-2021 End: 54-76-6771lxacvokwuwQKSGUSM TUCKERFacility:X0Wkeng: 06-18-2021 End: 71-06-1244Emhwtebzw for other specified special examinationsMELISSA DESEAN Facility:K1Eknem: 06-17-2021 End: 93-58-3336bezgnoxegyUE MAYRA CASSIDYECKFacility:X4Ryvku: 06-12-2021 End: 92-68-8340ihmyitlcumFLLRZQA TUCKERFacility:S1Yrbfu: 06-04-2021 End: 41-50-3117vqeuicmxkrTMTEYLI D KATKOFacility:C2Dpgjd: 12-28-2020 End: 70-05-8821rwrntvjilbGGTV CHACKOFacility:UTMCStart: 11-19-2020 End: 60-61-0737zugmsnlqrgJCJK CHACKOFacility:UTMCStart: 35-31-7703Ccvdiiqxol and management of inpatientRichard Curry Work Phone: [facility] Work Phone: Procedures DateProcedureProcedure DetailPerforming ClinicianStart: 48-42-9352KY ECHO DOPPLER COMPLETEGeneric External Data ProviderStart: 58-55-6508XI of head without contrastDaniel Yang II Work Phone: Start: 14-98-3303RAR CBC WITH AUTO DIFFKim Monica Baum GLOBAL CEO Work Phone: Start: 42-41-1023Fhqpw cultureDaniziggy Trey II Work Phone: Start: 25-77-3326UKH URINALYSISOle Yang MD Work Phone: Start: 62-68-1171Udkzxcj bacterial quanttative colony count urineDakylie Yang MD Work Phone: Start: 06-01-2089RLC LIPID PROFILE (FASTING)Generic External Data ProviderStart: 35-41-0809PJO ALTGeneric External Data Provider Start: 26-62-6917CKL ASTGeneric External Data ProviderStart: 03-91-6044Dkmct cultureRichard Curry Work Phone: Start: 52-40-5466UXGKB CULTURE - FRMCGeneric External Data ProviderStart: 63-85-3182CXA T3 FREEGeneric External Data ProviderStart: 77-79-3393QMY THYROID STIM HORMONEGeneric External Data ProviderStart: 35-34-4694JKM THYROXINE (T4) FREEGeneric External Data ProviderStart: 11-26-2023 ALL THYROXINE (T4) FREEGeneric External Data ProviderStart: 54-49-6165YG ECHO DOPPLER COMPLETEGeneric External Data ProviderStart: 70-14-7636RM MAUREEN PERF SPECT REST STRGeneric External Data ProviderStart: 36-81-7756OZ CHEST 2VGeneric External Data ProviderStart: 29-34-6491Xnjxps-up visitFollow-upRACHEL S OBROCK Start: 13-29-5485Jde-scan xtr veins unilateral/limited studyOle Yang MD Work Phone: Plan of Treatment DateCare ActivityDetailAuthorStart: 05-31-2025 End: 13-27-9889Bvinasm encounter whjhudbqy77/15/2026 10:30 AM EDT Office Visit [facility] [place] [facility] [address] [place] [address] Teri Jo MD [address] [place] [address] NOMS [place] [facility]ocrinologyStart: 03-22-2025 End: 35-01-6268Dttyadw encounter orxnhqgos39/04/2026 10:00 AM EST Office Visit [facility] [place] [facility] [address] [facility] [address] [place] [address] Ole Yang MD [address] [place] [address] NOMS [place] [facility] MedinceStart: 03-16-2025 Hemoglobin A1c measurementDiabetes: Hemoglobin W4TQLVG HealthcareStart: 12-29-2024 End: 09-77-4642Mnihzqo encounter /13/2025 10:00 AM EST Procedure Visit [facility] POD[facility] [address] [place] [address] Kenneth Skinner, DPM [address] [facility] [address] [place] [address] NOMS CI PODIATRYStart: 12-15-2024 End: 77-95-4449Xgdhyqm encounter cutormtio13/30/2025 9:30 AM EDT Office Visit [facility] [place] [facility] [address] [facility] [address] [place] [address] Ole Yang MD [address] [facility] [address] [place] [address] NOMS [place] [facility] MedinceStart: 12-14-2024 End: 82-57-4920Pnimfvh encounter procedureNOMS [place] [facility] MedinceComment on above:ArrivedStart: 11-30-2024 End: 58-91-9490Vnorcdedgbj [Units/volume] in Serum or PlasmaTSH Lab Routine Hyperthyroidism Expected: 11/30/2024 (Approximate), Expires: 11/30/2025NOMS HealthcareComment on above:Expected: 11/30/2024 (Approximate), Expires: 11/30/2025Start: 11-30-2024 End: 86-35-4854Ovahdatxj (T4) free [Mass/volume] in Serum or PlasmaT4, free Lab Routine Hyperthyroidism Expected: 11/30/2024 (Approximate), Expires: 11/30/2025 NOMS HealthcareComment on above:Expected: 11/30/2024 (Approximate), Expires: 11/30/2025Start: 11-30-2024 End: 36-31-1849Muffkshpcxeoyznd (T3) Free [Mass/volume] in Serum or PlasmaT3, free Lab Routine Hyperthyroidism Expected: 11/30/2024 (Approximate), Expires: 11/30/2025NOMT Healthcare Work Phone: Comment on above:Expected: 11/30/2024 (Approximate), Expires: 11/30/2025Start: 11-30-2024 End: 26-62-8113Ofxcced encounter procedureNOMS ENDOCRINOLOGYComment on above: ArrivedStart: 11-28-2024 End: 72-88-9163Vlflvat encounter procedureNOMS [place] [facility] MedinceComment on above:ArrivedStart: 11-22-2024 End: 14-73-0028Iisoj metabolic 1998 panel - Serum or PlasmaBasic metabolic panel Lab Routine Hyperkalemia Chronic kidney disease, stage 3b (CMS-HCC) Expected: 11/22/2024 (Approximate), Expires: 11/08/2025NOMT Healthcare Work Phone: Comment on above:Expected: 11/22/2024 (Approximate), Expires: 11/08/2025Start: 11-14-2024 End: 06-30-4363Ikzzjgy encounter ojomauvgw36/29/2025 3:45 PM EDT Office Visit [facility] [place] [facility] [address] [place] [address] Ole Yang MD [address] [place] [address] NOMEliana [facility] MedinceStart: 11-08-2024 End: 74-42-7039Mlflhhl encounter iwwnvflgy43/23/2025 3:00 PM EDT Office Visit [facility] [place] [facility] [address] [place] [address] Dipti Wolf PA [address] [place] [address] ArrivedNOMS [place] [facility] MedinceComment on above:ArrivedStart: 23-18-8497QinixpcgjCleveland Clinic Foundationtart: 47-36-0212Utxazdrm to neurologistCleveland Clinic Foundationtart: 82-83-6140Ydkkfotf to psychiatristCleveland Clinic Foundationtart: 13-88-3236JsqcdgkbxCleveland Clinic Foundationtart: 81-72-1623Peynuqny therapy procedureCleveland Clinic Foundationtart: 34-63-7812Vbcbtdsh to occupational therapistCleveland Clinic Foundationtart: 10-31-2024 [facility]tart: 93-24-5715Yvnmzokk admissionCleveland Clinic Foundationtart: 10-31-2024 End: 11-39-3573Qawkoid encounter kdsfqdvwi86/15/2025 1:30 PM EDT Office Visit [facility] [place] [facility] [address] [facility] [address] [place] [address] Ole Yang MD [address] [facility] [address] [place] [address] ArrivedNOMS [place] [facility] MedinceComment on above:ArrivedStart: 10-26-2024 End: 38-83-9426Huueyhy encounter marjyivqj87/10/2025 9:30 AM EDT Office Visit [facility] [place] [facility] [facility] [address] [facility] [address] [place] [address] Ole Yang MD [address] [facility] [address] [place] [address] NOMS [place] [facility] MedinceStart: 10-17-2024 COVID-19 Vaccine ( season)COVID-19 Vaccine ( season)NOMS HealthcareStart: 02-86-2895Nldhtqjbc vaccinationInfluenza Vaccine (#1)NOMS HealthcareStart: 10-13-2024 End: 48-03-1687Pclretw encounter procedureNOMS CI PODIATRYStart: 09-27-2024 Bacteria identified in Urine by CultureUrine [facility] Hospitaltart: 23-68-1947Quvlo [facility] Centertart: 09-14-2024 End: 34-13-1986Cqwcjfn encounter procedureNOMS CI FMComment on above:Arrived Start: 08-31-2024 End: 37-46-0868Zgduuaa encounter ljgomozda01/16/2025 9:30 AM EDT Office Visit NOM[facility] CI FM [address] [place] [address] Dipti Wolf PA [address] [place] [address] NOMS CI FMStart: 08-15-2024 End: 79-83-9643Ksldjdb encounter dafuybrwd98/30/2025 2:30 PM EDT Office Visit [facility] CI FM [address] [place] [address] Ole Yang MD [address] [place] [address] ArrivedNOMS CI FMComment on above:ArrivedStart: 08-11-2024 End: 48-68-3069Crrsrbb encounter cdeqrlscx27/26/2025 10:00 AM EDT Office Visit [facility] CI FM [address] [place] [address] Dipti Wolf PA [address] [place] [address] NOMS CI FMStart: 09-57-6825Eqyxbcse identified in Urine by CultureUrine [facility] Hospitaltart: 61-75-9821Wflou [facility] Centertart: 06-02-2024 End: 62-58-9339ILL Skeletal system Views for bone densityDEXA bone density Imaging Routine Estrogen deficiency Expected: 06/02/2024, Expires: 06/02/2025 [facility] Work Phone: Comment on above:Expected: 06/02/2024, Expires: 06/02/2025Start: 06-02-2024 End: 64-80-5059Jwblyvb encounter sbhlfouxc82/17/2025 9:30 AM EDT Office Visit NOMS CI [address] [facility] [address] [place] [address] Dipti Wolf PA [address] [place] [address] NOMS CI FMStart: 06-01-2024 End: 58-93-2724Vffzrdjduyp [Units/volume] in Serum or PlasmaTSH Lab Routine Hyperthyroidism ([facility]/HCC) Expected: 06/01/2024 (Approximate), Expires: 06/01/2025NOMS HealthcareComment on above:Expected: 06/01/2024 (Approximate), Expires: 06/01/2025Start: 06-01-2024 End: 52-35-6612Lpdyyufsz (T4) free [Mass/volume] in Serum or PlasmaT4, free Lab Routine Hyperthyroidism ([facility]/HCC) Expected: 06/01/2024 (Approximate), Expires: 06/01/2025NOMT HealthcareComment on above:Expected: 06/01/2024 (Approximate), Expires: 06/01/2025Start: 06-01-2024 End: 17-88-1333Pfgxaavunxgmjbca (T3) Free [Mass/volume] in Serum or PlasmaT3, free Lab Routine Hyperthyroidism ([facility]/HCC) Expected: 06/01/2024 (Approximate), Expires: 06/01/2025N[facility]T [facility] Work Phone: Comment on above:Expected: 06/01/2024 (Approximate), Expires: 06/01/2025Start: 06-01-2024 End: 67-57-1916Mptneus encounter procedureNOMS ENDOCRINOLOGYComment on above: ArrivedStart: 05-30-2024 End: 62-07-5988Hmymexl encounter xnrqpmobv85/14/2025 9:30 AM EDT Office Visit [facility] CI FM [address] [place] [address] Dipti Wolf PA [address] [place] [address] NOMS CI FMStart: 04-10-2025Medicare Annual Wellness (AWV)Medicare Annual Wellness (AWV)NOMS HealthcareStart: 52-90-4359Bgojemb ScreeningTobacco ScreeningLake County Memorial Hospital - Westca Health SystemStart: 03-30-2024 End: 80-33-5385Rhzsywy encounter imcditmyi90/12/2025 10:15 AM EST Office Visit [facility] CI FM [address] [place] [address] Ole Yang MD [address] [place] [address] ArrivedNOMS CI FMComment on above:ArrivedStart: 02-25-2024 End: 308830-jjkjjwvyrocreq D3 [Mass/volume] in Serum or PlasmaVitamin D 25 hydroxy Total Lab Routine 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) Age-related osteoporosis without current pathologicalfracture (CMS/HCC) Expected: 02/25/2024 (Approximate), Expires: 02/24/2025NOMS HealthcareComment on above:Expected: 02/25/2024 (Approximate), Expires: 02/24/2025Start: 02-25-2024 End: 97-03-9037Bdowe metabolic 1998 panel - Serum or PlasmaBasic metabolic panel Lab Routine Benign hypertensive heart disease with heart failure (CMS/HCC) Imp aired fasting glucose Expected: 02/25/2024 (Approximate), Expires: 02/24/2025 NOMS HealthcareComment on above:Expected: 02/25/2024 (Approximate), Expires: 02/24/2025Start: 02-25-2024 End: 58-52-1528AJT W Auto Differential panel - BloodCBC and differential Lab Routine Benign hypertensive heart disease with heart failure (CMS/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 ([facility]/HCC) Expected: 02/25/2024 (Approximate), Expires: 02/24/2025N[facility]T [facility] Work Phone: Comment on above:Expected: 02/25/2024 (Approximate), Expires: 02/24/2025Start: 02-25-2024 End: 26-86-9593Nywrombxwe A1c/Hemoglobin.total in BloodHemoglobin A1c Lab Routine Impaired fasting glucose Expected: 02/25/2024 (Approximate), Expires: 02/24/2025NOMT HealthcareComment on above:Expected: 02/25/2024 (Approximate), Expires: 02/24/2025Start: 02-25-2024 End: 31-13-5632Kqwbn 1996 panel - Serum or PlasmaLipid panel Lab Routine 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 ([facility]/HCC) Expected: 02/25/2024 (Approximate), Expires: 02/24/2025NOMT HealthcareComment on above:Expected: 02/25/2024 (Approximate), Expires: 02/24/2025Start: 02-25-2024 End: 98-85-2759Xaabdvw encounter procedureNOMS CI FMComment on above:Arrived Start: 83-76-0920Nphed BMI ScreeningAdult BMI ScreeningOhioHealth Grady [facility] Start: 12-02-2023 End: 89-84-1807Npwgevd function 2000 panel - Serum or PlasmaHepatic function panel Lab Routine Hyperthyroidism ([facility]) Expected: 12/02/2023 (Approximate), Expires: 12/01/2024NOMT HealthcareComment on above:Expected: 12/02/2023 (Approximate), Expires: 12/01/2024Start: 12-02-2023 End: 54-66-0613Fnjatueuqcq [Units/volume] in Serum or PlasmaTSH Lab Routine Hyperthyroidism ([facility]) Expected: 12/02/2023 (Approximate), Expires: 12/01/2024NOMT HealthcareComment on above:Expected: 12/02/2023 (Approximate), Expires: 12/01/2024Start: 12-02-2023 End: 17-39-0051Lvaylprml (T4) free [Mass/volume] in Serum or PlasmaT4, free Lab Routine Hyperthyroidism (CMS/HCC) Expected: 12/02/2023 (Approximate), Expires: 12/01/2024NOMT HealthcareComment on above:Expected: 12/02/2023 (Approximate), Expires: 12/01/2024Start: 12-02-2023 End: 19-66-8888Bijeytkaxmgxltdn (T3) Free [Mass/volume] in Serum or PlasmaT3, free Lab Routine Hyperthyroidism (CMS/HCC) Expected: 12/02/2023 (Approximate), Expires: 12/01/2024[facility] Work Phone: Comment on above:Expected: 12/02/2023 (Approximate), Expires: 12/01/2024Start: 12-02-2023 End: 65-88-0390Mvxbicm encounter procedureNOMS SH ENDOCRINOLOGYComment on above: ArrivedStart: 11-26-2023 End: 59-96-5735Bmngfzn encounter procedureNOMS CI FMComment on above:Arrived Start: 28-33-9692Pgxugrpqq vaccinationInfluenza Vaccine (#1)[facility] Start: 74-76-9499Zcpe Risk ScreeningFall Risk ScreeningOhioHealth Grady [facility] System Start: 46-48-1871Hqqfxbksn B Vaccines (1 of 3 - Risk 3-dose series)Hepatitis B Vaccines (1 of 3 - Risk 3-dose series)[facility] CareStart: 23-58-7136MOlV,Tdap and Td Vaccines (1 - Tdap)DTaP,Tdap and Td Vaccines (1 - Tdap)[facility]art: 23-47-8092Hvmgwlhrc A Vaccines (1 of 2 - Risk 2-dose series) Hepatitis A Vaccines (1 of 2 - Risk 2-dose series)[facility] HealthcareStart: 85-42-5683Ddihf screening for proteinDiabetes: Urine Protein ScreeningSSM Health CareStart: 09-02-5392Thuja BMI Follow Up PlanAdult BMI Follow Up Plan [facility] Systemtart: 07-59-0155Snqddyluoe ScreeningDepression Screening [facility] Systemtart: 41-30-0452Tidpdbxg screeningDiabetes: Retinopathy ScreeningNOMS HealthcareStart: 88-93-5826MHyS/Tdap/Td Vaccines (1 - Tdap) DTaP/Tdap/Td Vaccines (1 - Tdap)[facility] HealthcareStart: 07-01-1943Medicare Annual Wellness VisitMedicare Annual Wellness VisitLouis Stokes Cleveland VA Medical CenterAnion gap [facility] HospitalBacteria identified in Urine by CultureUrine culture Microbiology Routine 09/26/2024 1:30 PM EDP[facility] Work Phone: Glomerular filtration rate [Volume Rate/Area] in Serum, Plasma or Blood by CreatinineUpper Valley Medical CenterGlucose measurement estimated from glycated hemoglobinUpper Valley Medical Center Hemoglobin A1c/Hemoglobin.total in BloodUpper Valley Medical CenterPatient EducationHope Pamphlet Know your MedP[facility] Work Phone: Patient referralPromedica Flower [facility] Work Phone: [facility] Immunizations Immunization DateImmunizationNotesCare NsqenqsgHaljootg06-36-9005FUIC-WNY-0 (COVID-19) vaccine, mRNA, spike protein, LNP, PF, robert-sucrose, 30 mcg/0.3 mL Dipti Hemtyler PA Work Phone: [facility] Health CareWifkxdewei39-17-1950Itztaqeiv, High-dose Seasonal, Quadrivalent, Preservative FreeDipti Wolf PA Work Phone: [facility] CareCsjcblmocp52-38-6694ycxbeunjv virus vaccine, unspecified formulationGeneric ProviderSSM Health CareVyswugiiii84-59-4298AJIG-YGL-8 (COVID-19) vaccine, mRNA, spike protein, LNP, PF, robert-sucrose, 30 mcg/0.3 mL Dipti Hemtyler PA Work Phone: [facility] Health CareHpkseqtjsb84-90-3250accvhi vaccine recombinant Dipti Wolf PA Work Phone: [facility] CareIhjdudlbsr24-05-9075ZTRWTMN - Respiratory syncytial virus (RSV), vaccine, bivalent, protein subunit RSV prefusion F, dil uent reconstituted, 0.5 mL, Brynn Wolf PA Work Phone: noMS Wnsuedlelm25-88-5465Ytehiorhm, Seasonal, Quadrivalent, AdjuvantedKaren Hemmer PA Work Phone: [phone] [place], [place] [address]Iywmdqrdqd37-57-1328vgvxoxnse virus vaccine, unspecified formulationKaren Hemmer PA Work Phone: [facility] Health CareZzpvqafwob27-99-4844mjyrcm vaccine recombinant Dipti Hemmer PA Work Phone: [phone] [place], [place] [address]Rbixrjrbqx65-60-0921fdvkcmnmw, high dose seasonal, preservative-freeKaren Hemmer PA Work Phone: [phone] [place], [place] [address]Pkltkzaeds55-21-1320Qngwhwr SARS-CoV-2 50mcg/0.5mL BoosterKaren Hemmer PA Work Phone: [phone] [place], [place] [address]Egdmnyvypy72-81-4010mdavugqpc, high dose seasonal, preservative-freeKaren Hemmer PA Work Phone: [phone] [place], [place] [address]Uimbdqjjsg30-11-5086Bleaujha trivalent influenza vaccine, adjuvanted, preservative freeKaren Hemmer PA Work Phone: [phone] [place], [place] [address]Vdkajeqhdy45-15-6551fjpydarytscn polysaccharide vaccine, 23 valentKaren Hemmer PA Work Phone: [phone] [place], [place] [address]Uvrwctyjcn16-63-7961Dxdwgoix trivalent influenza vaccine, adjuvanted, preservative freeKaren Hemmer PA Work Phone: [phone] [place], [place] [address]Bjpeslxjxt83-03-7393uuyohnlzmhqv conjugate vaccine, 13 valentKaren Hemmer PA Work Phone: [phone] [place], [place] [address]Vunvqrfzkf15-18-1794Ossrptmqv, High-dose Seasonal, Quadrivalent, Preservative FreeKaren Hemmer PA Work Phone: [phone] [place], [place] [address]Aloyxrqusi13-02-9615Yyztxoslc, High-dose Seasonal, Quadrivalent, Preservative FreeKaren Hemmer PA Work Phone: [facility] CareThuifgjkax88-81-0954mqxkshgkbivn polysaccharide vaccine, 23 valentKaren Hemmer PA Work Phone: [facility] Payers DatePayer CategoryPayerPolicy [id number] Health InsuranceI [place] [id number] COMMERCIAL COMMERCIAL - GENERIC PLAN [id number] 2022- [phone] [address] [address] [place], [place] [id number] [id number] 1960Medicare [id number] 2.840.1.635740.3.579.2.35134-90-4508Cuqizma45951628 2.840.1.498163.3.579.2.37815-38-6522Hlrplpq27130486 2.16840.1.900864.3.579.2.72049-96-2871Hcnehmv9943266 2.16840.1.564990.3.579.2.79311-83-5576Thvnmcf4853717 2.16840.1.803805.3.579.2.71980-74-2356Wianbbd7429050 2.16840.1.954677.3.579.2.84713-26-7011Pcbxzjv2281731 2.16.840.1.024959.3.579.2.36776-76-8859Roglxzp5812942 2.16.840.1.481807.3.579.2.34577-00-9536Azjifnf4812136 2.16.840.1.254674.3.579.2.96236-58-4330Iyiytzm2298079 2.16.840.1.439062.3.579.2.71544-25-8961Aygndro3550011 2.16.840.1.548967.3.579.2.43009-29-8698Xbojqit8653971 2.16.840.1.269468.3.579.2.49645-64-2195Qdypzrb2984331 2.16.840.1.081029.3.579.2.79311-13-5015Bpmrkgi6516552 2.16.840.1.039009.3.579.2.21303-22-1483Iacpsmb6380163 2.16.840.1.678321.3.579.2.23668-44-1375Jytndcf7085328 2.16.840.1.310882.3.579.2.95611-45-5868Dvimiec6627547 2.16.840.1.727825.3.579.2.05187-53-2521Arruezx3215734 2.16.840.1.197546.3.579.2.68329-21-7587Ylmyovk97012091 2.16.840.1.435356.3.579.2.686592-37-3888Vbacwaq90360613 2.16.840.1.272674.3.579.2.978639-48-7252Xqjgeqm10015236 2.16.840.1.375676.3.579.2.598607-49-6227Zwgqfnt46180060 2.16.840.1.891948.3.579.2.686872-08-8716Bnevtop73451747 2.16.840.1.734460.3.579.2.138904-97-4261Wwdbsvh53702711 2.16.840.1.510023.3.579.2.852165-69-7187Nrbmycj38417750 2.16.840.1.756214.3.579.2.633873-18-1933Zlixijx54638011 2.16.840.1.504359.3.579.2.057781-43-5009Qhpqjso03464299 2.16.840.1.270982.3.579.2.481863-47-0911Kpvkxla77086503 2.16.840.1.328848.3.579.2.134587-50-4193Qlpclzo1820147 2.16.840.1.856636.3.579.2.357642-36-4233Qcfuydw1033521 2.16.840.1.464436.3.579.2.953581-42-6316Aefgcys0387340 2.16.840.1.356957.3.579.2.932448-03-7880Vjscucr1092558 2.16.840.1.757831.3.579.2.466301-21-1900Uktwshx7216824 2.16.840.1.111230.3.57[id number] 3es1c706-4b6f-3388-2a74-70401256456tMxeuerx75683621 2.16.840.1.171267.3.579.2.716Jlsvdww98587522 2..840.1.197061.3.579.2.531 Sakvyzd27217952 2..840.1.804824.3.579.2.531 Social History DateTypeDetailFacilityStart: 07-28-2022 End: 58-79-6204Wgeccak smoking status NHISNever smoked tobaccoNOMS Healthcare Start: 07-28-2022 End: 59-17-4024Jkdtmos use and exposureSmokeless tobacco non-userOhioHealth Grady Memorial Hospital SystemStart: 02-11-2023 End: 28-90-7541Woxrnycyj beverage intakeLifetime non-drinker (finding)[facility] HealthcareStart: 10-29-2023 End: 91-32-0474Kwqifql of Social functionNOMS Healthcare Work Phone: Start: 10-29-2023 End: 46-21-5104B8431 Health LiteracyN[facility] Healthcare Work Phone: Start: 44-25-1446Qce often do you need to have someone [...] got money to buy more.Never trueNOMS HealthcareStart: 01-02-8472Rgs assigned at birthNot on [facility] SystemHow often do you need to have [...] HealthcareTobacco smoking status NHISUnknown if ever smoked [facility] Work Phone: Start: 66-25-8103NqbQzlbgl (finding)[facility] Foundationtart: 82-18-7919Wbn Assigned At [facility] Hospitaltart: 18-69-1208YBGC Follow upSDOH Follow upPromedica Flower Hospital Ctr Work Phone: Functional Status QxrgYfpqezkeemSijwmbMysvbvgy59-24-1206Icsenyv Health Questionnaire 2 item (PHQ- 2) [Reported][facility] Health CareFyknwnqkct11-00-4885Hmrtuad Health Questionnaire 2 item (PHQ- 2) [Reported][facility] CareAsiafhnfks73-82-5093ZPQ-2 quick depression assessment panel [Reported.PHQ][facility] CareOztcmdrykt75-86-1455Bcgmsnz Health Questionnaire 2 item (PHQ- 2) [Reported][facility] CareIcrppmippc41-76-9746Tydxwbn Health Questionnaire 2 item (PHQ- 2) [Reported][facility] CareGymipzwgli08-39-7430YPK-6 quick depression assessment panel [Reported.PHQ][facility] CareEdxzirqbet07-25-6685Ysnyklg Health Questionnaire 2 item (PHQ- 2) [Reported][facility] Health CareBcnmznattm59-16-0366Ihmpg score [AUDIT-C]0 06/01/2024 10:00 AM EDT Mychart, GenericNOMS Ijjvjbaedv72-72-4803Jab often to you have a drink containing alcohol?Never 06/01/2024 10:00 AM EDT Mychart, Generic NeverNOMS Fkdxjgkjpn28-85-9834Riarmiyvgz statusPatient does not drink 06/01/2024 10:00 AM EDT Mychart, Generic Patient does not drinkSSM Health CareZdvrvkozwk31-53-6722Pvp often do you have 6 or more drinks on 1 occasion?Never 06/01/2024 10:00 AM EDT Albaro Paulson NeverSSM Health CareVrslawxqkb42-94-4690Qqxlals Health Questionnaire 2 item (PHQ- 2) [Reported][facility] Clinical Notes 06-17-2021 to 12-21-2024 Note Date & BjfqKculBqkktkwu76-54-8851 Telephone encounter Note* Telephone Encounter - Abbi Wayne NP - 12/21/2024 8:29 AM EST Created in error [facility] Health CareWyjpvjauue07-35-3717 Miscellaneous Notes* Telephone Encounter - Abbi aWyne NP - 12/21/2024 8:29 AM EST Created in error documented in this encounterSSM Health CareMjrgwngjyp18-89-4445 History of Present illness Narrative* Ole Yang [...] 0.55 - 1.02 mg/dL Final TBH EGFR-AF ZIMBABWEAN 10/19/2024 45 (L) >=60 mL/min/1.73m 2 Final TBH EGFR-NON AF ZIMBABWEAN 10/19/2024 37 (L) >=60 mL/min/1.73m 2 Final [...] edema. Medications unchanged. 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 Ole Yang in 3 months (on 03/14/2025). documented in this encounterSSM Health CareVpchjmsuqr40-12-7876 NoteSUBJECTIVE Reason for Visit: Lluvia Ferraro is [...] (Lipitor) 80 mg tablet 1 tablet, Nightly nplpljlcmp-bwrnsjcw-rfvxojcprb (Breztri Aerosphere) 160-9-4.8 mcg/actuation HFA aerosol inhaler Inhale. bumetanide (Bumex) 1 mg tablet As needed cholecalciferol (Vitamin D-3) 50 MCG (2000 UT) tablet Take 1 tablet every day by oral route. lisinopril 2.5 mg, oral, Daily LORazepam (Ativan) 0.5 mg tablet TAKE ONE TABLET BY MOUTH EVERY 6 HOURS NEEDED FOR ANX (more content not included)...[facility] 11-30-2024 History of Present illness Narrative* Teri [...] on 03/31/18 for lab done in in [facility]: TSH still suppressed 0.07, free T4 back [...] 6 months (around 05/31/2025). documented in this encounterSSM Health CareJzygxncogz89-89-8548 History of Present illness Narrative* Ole Yang [...] right dr inman 2010 documented in this encounterSSM Health CareNzgjwpbbok88-70-9762 History of Present illness Narrative* SILVIA Branham - 11/08/2024 3:00 PM EDT Images from the original note were not included. HPI Gait Problem Additional comments: Needs face to face for rollator. Last edited by Aidee Garcia LPN on 11/08/2024 3:00 PM. Subjective Patient ID: Lluvia Ferraro is a 84 y.o. female who presents for [facility] follow up. Flowsheet Row Patient Out[facility] [place] [place] [place] [place] Edna Alcantara LPN [facility] Information ED, Hospital or Alf Facility Discharge? Hospital Patient has been contacted within two business days of discharge Yes Diagnosis Dementia, suicidal ideation. Discharge Date 11/03/24 Discharged To: Home Setting Discharge Hospital [facility] Engagement Call Start Time 1154 Admission Date [...] patient have any upcoming specialty appointments? Yes [[facility] 11/30. Advanced neurologic 01/17] Self Management Does patient have home health? yes What is the home health agency? [facility] Patient Teaching Does the patient have access [...] 2 [DISCONTINUED] cholecalciferol (Vitamin D-3) 50 MCG (2000 UT) [...] right dr inman 2011 Visit Vitals BP 128/82 Pulse 71 [...] Recheck in 3-4 Weeks. documented in this encounterSSM Health CareCmmtcbpate69-18-8657 Evaluation note* Diagnosis Onset Date Resolution Status Admit Date Acute dehydration acuteSeptember 2024 11:10pmAcute hyperkalemiaacuteSeptember 2024 11:10pmAKI (acute kidney injury)acuteSept2024 11:10pmDementiaacute October 31, 2024 11:10pmHomicidal ideationsacuteSeptember 2024 11:10pm Suicidal ideationacuteSept2024 11:10pm [facility] Work Phone: 1(374) 603-562309-16-2025 Evaluation note* Diagnosis Onset Date Resolution Status Admit Date Dementia acuteSeptember 2024 11:10pmSuicidal ideationacuteSept2024 11:10pmAcute dehydrationresolvedSeptember 2024 11:10pmAcute hyperkalemia resolvedSeptember 2024 11:10pmAKI (acute kidney injury)resolvedSept2024 11:10pmHomicidal ideationsinactiveSept2024 11:10pmAnxiety and depressionacuteSept2024 2:51pmConcentration deficitacute November 07, 2024 2:51pmDementiaacuteSeptember 2024 2:51pmFamily history of dementiaacutept2024 2:51pmMemory lossacuteSept2024 2:51pmOther insomniaacuteSept2024 2:51pmWord finding difficultyacutept2024 2:51pm [facility] Work Phone: 1(292) 600-788009-16-2025 Evaluation note* Diagnosis Onset Date Resolution Status Admit Date Dementia acuteSeptember 2024 11:10pmSuicidal ideationacuteSeptember 2024 11:10pmAcute dehydrationresolvedSeptember 2024 11:10pmAcute hyperkalemia resolvedSeptember 2024 11:10pmAKI (acute kidney injury)resolvedSeptember 2024 11:10pmHomicidal ideationsinactiveSeptember 2024 11:10pmAnxiety and depressionacuteSeptember 2024 2:51pmConcentration deficitacute November 07, 2024 2:51pmDementiaacuteSeptember 2024 2:51pmFamily history of dementiaacuteSeptember 2024 2:51pmMemory lossacuteSeptember 2024 2:51pmOther insomniaacuteSeptember 2024 2:51pmWord finding difficultyacuteSept2024 2:51pmAnxiety and depressionacuteSept2024 1:57pmConcentration deficitacuteSeptember 2024 1:57pmFamily history of dementiaacuteSeptember 2024 1:57pmMemory lossacuteSeptember 2024 1:57pmMild neurocognitive disorderacuteSept2024 1:57pm Other insomniaacuteSept2024 1:57pmWord finding difficultyacute November 15, 2024 1:57pm [facility] Work Phone: 1(996) 700-868709-15-2025 [facility]iology [facility] [place] [address] [place] [address] CT Scan Report Signed Patient: Lluvia Ferraro MR#: [id number] : 1940 Acct:[id number] Age/Sex: 84 / F ADM Date: 5 Loc: ER Room: Type: [facility] ER Attending Dr: Copies to: Harpreet [...] Wilson M.D. 10/31/2024 7:11 PM Dictation Location: [place] [address] Transcribed By: [facility] 10/31/241910 Dictated By: Jj Wilson II, MD 10/31/241908 Signed By: 10/31/241910 [facility] Work Phone: 1(381) 431-203709-15-2025 History of Present illness Narrative* Ole Yang MD - 10/31/2024 1:30 PM EDT Images from the original note were not included. HPI Med Refill Additional comments: Possibly send Lorazepam in--she was on previously Discuss calcium and vitamin d-- would like to discuss if she needs this face to face for rollator Additional comments: Pt would like to have order sent to [facility] medical Results Additional comments: Lab results Last [...] would like to have order sent to [facility]), and Results (Lab results). HPI Current Outpatient [...] inman 2011 Visit Vitals BP 128/76 Pulse 71 Ht [...] be behavioral issues. I will send to [facility] ER for Psychiatric evaluation, may need involuntary [...] Greater than 45 minutes was spent in yens-ag-ouxf consultation and coordination of care. Follow up in about 2 weeks (around 11/14/2024). documented in this encounterSSM Health CareKahqgovoru48-15-2214 History of Present illness Narrative* Nicole Baum [...] No follow-ups on file. documented in this [facility]08-28-2025 Instructions* Patient Instructions* Nicole Baum NP - 10/13/2024 10:30 AM EDT Rexulti increased today Repeat labs ordered Advised to continue exercises as discussed at the ER. Continue tylenol prn Repeat labs ordered. documented in this [facility]08-28-2025 History of Present illness Narrative* Kenneth Skinner DPM - 10/13/2024 9:30 AM EDT Patient: [...] 0 min Stress: Stress Concern Present (06/01/2024) [place] [employer] - Occupational Stress Questionnaire Feeling of Stress : Rather much Social Connections: Moderately Isolated (06/01/2024) Social Connection and Isolation Panel [NHANES] Frequency of Communication with Friends and Family: More than three times a week Frequency of Social Gatherings with Friends and Family: Twice a week Attends Druze Services: Never Active Member of Clubs or [...] edema. Discussed condition in detail. Recommendation for gtll-uoq-jlpiulz compression stockings at this time and may consider prescription stockings in the future. Kenneth Skinner DPM documented in this encounterSSM Health CareYnbmymdtpq52-83-0841 History of Present illness Narrative* Ole Yang [...] and sedentary lifestyle. 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 documented in this encounterSSM Health CareJkepyxbump29-80-5344 Telephone encounter Note* Telephone Encounter - SILVIA Branham - 09/08/2024 7:03 PM EDT OARRS reviewed, Rx sent into patient's pharmacy. [facility] CarePuvuciqtfw27-48-4856 Miscellaneous Notes* Telephone Encounter - SILVIA Branham - 09/08/2024 7:03 PM EDT OARRS reviewed, Rx sent into patient's pharmacy. documented in this encounterSSM Health CareSnnjqxkgap99-69-1259 History of Present illness Narrative* Ole Yang MD - 08/15/2024 2:30 PM EDT Images from the original note were not included. Subjective Patient ID: Lluvia Ferraro is a 83 y.o. female who presents for No chief complaint on file.. Lluvia presents today for being discharged from a alf. She says she is feeling much better [...] mg by mouth Daily 60 tablet 3 Yebksyc-Rjklteuujgh-Ywoezkevjc (Breztri Aerosphere) 160-9-4.8 MCG/ACT aerosol Inhale 2 [...] in follow up of recent hospital and alf stay. All available hospital records were reviewed and discussed with the patient. Hospital discharge meds were reviewed.Any changes are as noted. This office visit was spent in consultation regarding the patient's current medical problems, differential diagnoses, testing/imaging results, and treatment options. Greater than 25 minutes was spentin jtmm-lk-unjr consultation and coordination of care. 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 documented in this encounterSSM Health CareMpicmxgtfn99-17-7169 [facility]-up [facility] Reason [...] day by oral route., Disp: , Rfl: zbwqrljorx-nomueybm-dqmduvyyji (Breztri Aerosphere) 160-9-4.8 mcg/actuation HFA aerosol inhaler, [...] in no acute distress. (more content not included)...[facility]04-17-2025 History of Present illness Narrative* SILVIA Branham [...] Do you have a medical power of family law attorney?: Yes Current Outpatient Medications on File [...] mg) by mouth Daily 100 tablet 3 Ytsfbyp-Dixqyhkwveh-Bsszjmdees (Breztri Aerosphere) 160-9-4.8 MCG/ACT aerosol Inhale 2 [...] Future 4. Pulmonary emphysema, unspecified emphysema type ([facility]/HCC) This is a chronic medical condition [...] oxygen. 7. Mild intermittent asthma without complication ([facility]/HCC) This is a chronic medical condition that is stable since last assessment. No changes in treatment are suggested at this time. Continue Breztri as prescribed, and Albuterol as needed. 8. Panlobular emphysema ([facility]/HCC) This is a chronic medical condition [...] Benign hypertensive heart disease with heart failure ([facility]/HCC) The patient is seeing a mobile paramedical examiner for this condition, treatment is deferred to that specialist. Correspondence from that specialist and any available testing were reviewed during today's visit. 11. Chronic atrial fibrillation, unspecified ([facility]/HCC) The patient is seeing a mobile paramedical examiner for this condition, treatment is deferred to that specialist. Correspondence from that specialist and any available testing were reviewed during today's visit. 12. Chronic combined systolic (congestive) and diastolic (congestive) heart failure The patient is seeing a mobile paramedical examiner for this condition, treatment is deferred to that specialist. Correspondence from that specialist and any available testing were reviewed during today's visit. 13. Chronic systolic dysfunction of left ventricle The patient is seeing a mobile paramedical examiner for this condition, treatment is deferred to that specialist. Correspondence from that specialist and any available testing were reviewed during today's visit. 14. 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 Correspondence from that specialist and any available testing were reviewed during today's visit. 15. Primary hypertension ([facility]) The patient is seeing a mobile paramedical examiner for this condition, treatment is deferred to that specialist. Correspondence from that specialist and any available testing were reviewed during today's visit. 16. ICD (implantable cardioverter-defibrillator) in place The patient is seeing a mobile paramedical examiner for this condition, treatment is deferred to that specialist. Correspondence from that specialist and any available testing were reviewed during today's visit. 17. Non-rheumatic mitral regurgitation The patient is seeing a mobile paramedical examiner for this condition, treatment is deferred to that specialist. Correspondence from that specialist and any available testing were reviewed during today's visit. 18. Status post biventricular cardiac pacemaker insertion The patient is seeing a mobile paramedical examiner for this condition, treatment is deferred to that specialist. Correspondence from that specialist and any available testing were reviewed during today's visit. 19. Chronic kidney disease, stage 3b (HCC) ([facility]) This is a chronic medical condition that is stable since last assessment. Will continue to monitor with routine labs. 20. Age-related osteoporosis without current pathological fracture ([facility]) This is a chronic [...] requested bypatient at this time. 25. Hyperthyroidism (CMS/HCC) The patient is seeing a mobile paramedical examiner for this condition, treatment is deferred to [...] Lorazepam as needed. 30. Current use of residential anticoagulation This is a chronic medical condition [...] 09/01/2024) for Medication Follow Up. Dipti CORNELIUS, JANE documented in this encounterCol[place] [id number] History of Present illness Narrative* Teri Jo [...] on 03/31/18 for lab done in in [facility]: TSH still suppressed 0.07, free T4 back [...] hours atorvastatin (LIPITOR) 80 mg, Oral, Daily Cpezhkr-Zayhftvpjpb-Ubklxgeyzz (Breztri Aerosphere) 160-9-4.8 MCG/ACT aerosol 2 puffs, [...] 6 months (around 12/01/2024). documented in this [facility]03-27-2025 Telephone encounter Note* Telephone Encounter - Annalise Paniagua LPN - 05/12/2024 3:07 PM EDT Needs sent to [facility] [id number] Miscellaneous Notes* Telephone Encounter - Annalise Paniagua LPN - 05/12/2024 3:07 PM EDT Needs sent to [facility] documented in this [facility]02-12-2025 History of Present illness Narrative* Ole [...] mg) by mouth Daily 100 tablet 3 Cehqavx-Jixarwntsoi-Yojodpfqaq (Breztri Aerosphere) 160-9-4.8 MCG/ACT aerosol Inhale 2 [...] 09/27/2024) for Routine F/U. documented in this encounterSSM Health [id number] History of Present illness Narrative* SILVIA Branham [...] 1 TABLET EVERY MORNING 100 tablet 3 Mfjtswr-Fejklzpcrth-Xthprszael (Breztri Aerosphere) 160-9-4.8 MCG/ACT aerosol Inhale 2 [...] Father Past Medical History: Diagnosis Date A-fib ([facility]) Arthritis CAD (coronary artery [...] upcoming fasting labs. 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 Correspondence from that specialist and any available testing were reviewed during today's visit. Age-related osteoporosis without current pathological fracture (CMS/HCC) - Vitamin D 25 hydroxy Total; Future Will continue to monitor with routine DEXA scans. Continue Vitamin D and Calcium supplements daily. Cardiomyopathy, unspecified (CMS/HCC) The patient is seeing a mobile paramedical examiner for this condition, treatment is deferred to that specialist. Correspondence from that specialist and any available testing were reviewed during today's visit. Longstanding persistent atrial fibrillation (CMS/HCC) The patient is seeing a mobile paramedical examiner for this condition, treatment is deferred to that specialist. Correspondence from that specialist and any available testing were reviewed during today's visit. Chronic obstructive pulmonary disease, unspecified (CMS/HCC) See above. Chronic kidney disease, stage 3b (HCC) (CMS/HCC) Will continue to monitor with routine labs. 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) The patient is seeing a mobile paramedical examiner for this condition, treatment is deferred to that specialist. Correspondence from that specialist and any available testing were reviewed during today's visit. Chronic atrial fibrillation, unspecified (CMS/HCC) The patient is seeing a mobile paramedical examiner for this condition, treatment is deferred to that specialist. Correspondence from that specialist and any available testing were reviewed during today's visit. Supplemental oxygen dependent Using oxygen concentrator, O2 via nasal cannula. Oxygen is medically necessary for patient due to hypoxia and significant CLAIRE without it. Follow up in about 3 months (around 05/27/2024) for Medicare Wellness Visit. documented in this encounterSSM Health [id number] [facility] Reason [...] by mouth at bedtime., Disp: , Rfl: klxonkicto-vmeddrel-nrsydjfmpb (Breztri Aerosphere) 160-9-4.8 mcg/actuation HFA aerosol inhaler, [...] peak stress ECG findings (more content not included)...[facility]10-16-2024 History of Present illness Narrative* Teri Jo [...] on 03/31/18 for lab done in in [facility]: TSH still suppressed 0.07, free T4 back [...] hours atorvastatin (LIPITOR) 80 mg, Oral, Daily Qgemxba-Tilovwxyyty-Lvoztskhey (Breztri Aerosphere) 160-9-4.8 MCG/ACT aerosol 2 Inhalation [...] varicose veins Hyperlipidemia (CMS/HCC) Hypertension (CMS/HCC) Hyperthyroidism ([facility]/HCC) Toxic multinodular goiter (CMS/HCC) Visual impairment Past Surgical History: Procedure Laterality Date APPENDECTOMY AV NODE ABLATION 2020 BLADDER SURGERY CARDIAC CATHETERIZATION 2021 CARDIAC PACEMAKER PLACEMENT 2020 CARDIAC PACEMAKER REMOVAL 2021 ICD implantation HYSTERECTOMY TENDON REPAIR right thumb dr cshultz TOTAL KNEE ARTHROPLASTY 2003 dr zapien left/ [...] 6 months (around 06/01/2024). documented in this encounterSSM Health [id number] History of Present illness Narrative* SILVIA Branham [...] the oxygen tank. [facility] [...] mouth in the morning. 100 tablet 3 Zytslds-Pqkiyqkvtte-Ebunnoemps (Breztri Aerosphere) 160-9-4.8 MCG/ACT aerosol Inhale 2 [...] Father Past Medical History: Diagnosis Date A-fib ([facility]) Arthritis CAD (coronary artery disease) ([facility]) Cerebrovascular accident ([facility]) Disease of thyroid gland ([facility]) H/O bladder infections Hearing [...] vaccination - Influenza, high-dose seasonal, quadrivalent, PF (GLX059) (Fluzone High Dose [place] 0.7mL dose) [...] (around 02/26/2024) for COPD. documented in this encounterSSM Health [id number] Telephone encounter Note* Telephone Encounter - SILVIA Branham - 10/30/2023 7:50 AM EDT OARRS reviewed, Rx sent into patient's pharmacy. [facility] [id number] Miscellaneous Notes* Telephone Encounter - SILVIA Branham - 10/30/2023 7:50 AM EDT OARRS reviewed, Rx sent into patient's pharmacy. 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 Will send a [...] (TOPROL XL) 50 mg 24 hr tablet multivitamin,lh-seyc-Ij-FA-min 27-0.4 mg tablet 1 (one) time each [...] history of COPD (chronic obstructive pulmonary disease) ([facility]) andHypertension. She has a past surgical history [...] by SHANTEL Price. Provider Statement: I, Eliel Nichlos OD personally performed the services described in the documentation, as scribed by SHANTEL Price in my presence, and it is both accurate and complete. documented in this encounterLouis [facility] History of Present illness Narrative* Annalise Paniagua, JUAN - 02/11/2023 2:45 PM EST Subjective Patient [...] TAKE 1 TABLET DAILY for 100 days Fvdkibt-Povuadgpqnl-Axwxfmcswm (Breztri Aerosphere) 160-9-4.8 MCG/ACT aerosol Inhale 1 [...] left/ right dr inman 2011 Visit Vitals 5' 7 BMI 26.94 kg/m Smoking Status Never BSA 1.92 m Review of Systems Objective Physical Exam Assessment/Plan No follow-ups on file. documented in this encounterSSM Health [id number] NoteEXAMINATION: XR CHEST 2 V HISTORY: Cardiac [...] Electronically authenticated by: JOEL ANDINO Date: 2021-08-22 17:39[facility]05-02-2022 NotePROCEDURE: XR FEMUR LT HISTORY: Pain in lower limb ; anterior posterior mid thigh pain for one week COMPARISON: None. FINDINGS: BONES:Moderate degenerative changes of the hip joint. Prior knee replacement. No fracture, dislocation, or bone lesion. SOFT TISSUES:No visible soft tissue swelling. EFFUSION:None visible. OTHER: Negative. IMPRESSION: 1. No appreciable acute abnormality. Electronically authenticated by: JOEL ANDINO Date: 2021-06-17 11:09[facility]* Diagnosis Leg hematoma, right, initial encounter- Primary Current use of long term care social worker anticoagulation Localized edema Edema documented in this encounter [facility]* Diagnosis Pulmonary emphysema, unspecified emphysema type (CMS/HCC)- Primary Need for vaccination Need for prophylactic vaccination and inoculation against unspecified single disease Dyspnea on exertion Other dyspnea and respiratory abnormality Hypoxia Hypoxemia Primary hypertension (CMS/HCC) Unspecified essential hypertension Mild episode of recurrent major depressive disorder (HCC) ([facility]/HCC) Acute bronchitis, unspecified organism documented in this encounter [facility]Evaluation [facility]* Diagnosis Hyperthyroidism (CMS/HCC)- Primary Thyrotoxicosis [...] Impaired fasting glucose 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) Age-related osteoporosis without current pathological fracture (CMS/HCC) Cardiomyopathy, unspecified (CMS/HCC) Longstanding persistent atrial fibrillation (CMS/HCC) Chronic obstructive pulmonary disease, unspecified (CMS/HCC) Chronic kidney disease, stage 3b (HCC) (CMS/HCC) 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) Chronic atrial fibrillation, unspecified (CMS/HCC) Supplemental oxygen dependent Dependence on supplemental oxygen documented in this encounter [facility] HealthcareEvaluation note* Diagnosis Pulmonary emphysema, unspecified emphysema type (CMS/HCC)- Primary Age-related osteoporosis without current pathological fracture (CMS/HCC) documented in this encounter [facility] HealthcareEvaluation note* Diagnosis Esotropia of right eye- Primary Unspecified esotropia Right abducens nerve palsy Double vision Diplopia [facility] this encounter [facility]* Diagnosis Anxiety Anxiety state, unspecified documented in this encounter [facility] HealthcareEvaluation note* Diagnosis Hyperthyroidism (CMS/HCC)- Primary Thyrotoxicosis without mention of goiter or other cause, without mention of thyrotoxic crisis or storm Multinodular goiter (CMS/HCC) Nontoxic multinodular goiter Longstanding persistent atrial fibrillation (CMS/HCC) documented in this encounter [facility] HealthcareEvaluation note* Diagnosis Medicare annual wellness [...] of left ventricle 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) Primary hypertension (CMS/HCC) Unspecified essential hypertension ICD (implantable cardioverter-defibrillator) in place Non-rheumatic mitral regurgitation Status post biventricular cardiac pacemaker insertion Chronic kidney disease, stage 3b (HCC) (CMS/HCC) Age-related osteoporosis without current pathological fracture (CMS/HCC) Arthritis of right shoulder region Joint derangement of shoulder region Unspecified derangement, shoulder region Primary osteoarthritis involving multiple joints Rotator cuff syndrome of right shoulder Hyperthyroidism (CMS/HCC) Thyrotoxicosis without mention of goiter or other cause, without mention of thyrotoxic crisis or storm Impaired fasting glucose Overweight (BMI 25.0-29.9) Overweight Primary ovarian failure Other ovarian failure Anxiety Anxiety state, unspecified Current use of long term care social worker anticoagulation Diplopia Elevated liver enzymes Other nonspecific abnormal serum enzyme levels Frequent falls History of stroke without residual deficits Transient ischemic attack (TIA), and cerebral infarction without residual deficits Memory changes 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) COPD exacerbation (CMS/HCC) Obstructive chronic bronchitis with exacerbation documented in this encounter [facility] noteNo assessment information availablePromedica Flower [facility]tr Work Phone: Evaluation note* Diagnosis Dementia with behavioral disturbance (HCC)- Primary Pulmonary emphysema, unspecified emphysema type (HCC) Hypoxia Hypoxemia Chronic combined systolic (congestive) and diastolic (congestive) heart failure (HCC) Chronic kidney disease, stage 3b (CMS-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 documented in this [facility]* Diagnosis Anxiety Anxiety state, unspecified documented in this [facility]* Diagnosis Chronic kidney disease, stage 3b (CMS-HCC)- Primary Chronic combined systolic (congestive) and diastolic (congestive) heart failure (HCC) Supplemental oxygen dependent Dependence on supplemental oxygen Anxiety Anxiety state, unspecified Hyperthyroidism Thyrotoxicosis without mention of goiter or other cause, without mention of thyrotoxic crisis or storm 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 Panlobular emphysema (HCC) [...] acuteSept2024 11:10pmAcute hyperkalemiaacuteSept2024 11:10pmAKI (acute kidney injury)acuteSept2024 11:10pmHomicidal ideationsacuteSeptember 2024 11:10pmSuicidal ideationacuteSeptember 2024 11:10pm [facility] Work Phone: Evaluation note* Diagnosis Mild episode [...] atrial fibrillation (HCC) documented in this encounter [facility]* Diagnosis 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)- Primary Acute bronchitis, unspecified organism documented in this encounter [facility] HealthcareEvaluation note* Diagnosis Type 2 diabetes mellitus with other specified complication, without long-term current use of insulin (HCC)- Primary Chronic combined systolic (congestive) and diastolic (congestive) heart failure (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 * Double Vision (Guinean) documented in this encounterOhioHealth Grady [facility] SystemReason for referral (narrative)No reason for referral information availablePromedica Flower [facility]tr Work Phone: Summary Purpose Family History No Family History Records Found Relationship Condition Age at Onset Recorded Date/T dixon brother Suicide Unknown Diabetes mellitusUnknownmotherMyocardial infarctionUnknownMalignant neoplasm UnknownfatherMyocardial infarctionUnknown Advance Directives No Advanced Directives Records FoundDocuments on File TypeDate RecordedPatient RepresentativeExplanationPower of Attorney02/25/2024 12:18 PMHealthcare Power of AttorneyTypeDate RecordedPatient Waredresser ExplanationPower of Attorney02/25/2024 12:18 PMHealthcare Power of Business Performance Analyst Advance Directive Response Recorded Date/ Time Advance Directives No October 6:48pm Reason for Referral SpecialtyDiagnoses / ProceduresReferred By ContactReferred To ContactRadiology Diagnoses Leg hematoma, right, initial encounter Current use of residential anticoagulation Localized edema Procedures Vascular US lower extremity venous duplex right Ole Yang MD [address] [facility] [address] [place] [address] [facility] [address] [place] [address] Referral IDStatusReasonStart DateExpiration DateVisits RequestedVisits [id number]/28/20233/ Chief Complaint and Reason for Visit Chief [...] and content) DATE CREATED AUTHOR 10/15/2021 [facility] DATE CREATED AUTHOR AUTHOR'S ORGANIZ ATION 05/18/2022 [facility] DATE CREATED AUTHOR AUTHOR'S ORGANIZ ATION 04/27/2023 [facility] DATE CREATED AUTHOR AUTHOR'S ORGANIZ ATION 11/24/2024 [facility] DATE CREATED AUTHOR AUTHOR'S ORGANIZ ATION 12/15/2024 [facility] DATE CREATED AUTHOR AUTHOR'S ORGANIZ ATION 12/17/2024 [facility] DATE CREATED AUTHOR AUTHOR'S ORGANIZ ATION 12/28/2024 [facility] Reason for Visit (unrecogniz ed section and content) ReasonCommentsleg discolorationReasonCommentsThyroid ProblemFollow-upReasonOnset DateCommentsMed Zyiqka7810/29/2023easonCommentsprolia injectionReasonComments Follow-upReasonOnset DateCommentsMed Ktvobb4405/12/2024ReasonCommentsThyroid ProblemFollow-upLABReasonCommentsCoughAdmits with yellow/green phlegm for 1 week. Denies any other symptoms.Medicare Annual Wellness Visit SubsequentReason CommentsMed RefillReasonCommentsCongestive Heart FailureHypertensionReason CommentsToenail CareSpecialtyDiagnoses / ProceduresReferred By ContactReferred To ContactPodiatry Diagnoses Deformity of toenail Procedures NE OFFICE/OUTPATIENT [facility] 60 MINUTES Ole Yang MD [address] [facility] [place] [address] Phone: tel: fax: Kenneth Skinner DPM [address] [place] [address] Phone: tel: fax: Referral IDStatusReasonStart DateExpiration DateVisits RequestedVisits [id number] Specialty Services Required /[id number]w RefillPossibly send Lorazepam in--she was on previouslyDiscuss calcium and vitamin d-- would like to discuss if she needs thisface to face for rollatorPt would like to [facility] medicalResultsLab resultsReasonCommentsGait ProblemNeeds face to face for rollator.ReasonCommentsThyroid ProblemFollow-uplabReasonComments HypertensionWheezingReasonCommentsHypertension Care Teams (unrecognized sec tion and content) Team MemberRelationshipSpecialtyStart DateEnd Date Ole Yang MD [address] [place] [address] PCP - [facility]07/10/22 Ole Yang MD [address] [place] [address] PCP - GeneralInternal Medicine07/28/22Team MemberRelationshipSpecialtyStart Date End Date Ole Yang MD [address] [place] [address] PCP - [facility]07/10/22 Ole Yang MD [address] [place] [address] PCP - GeneralInternal Medicine07/28/22ThursdayBea LPN [address] [place] [address] Licensed Practical NurseFamily [facility]10/27/23Team MemberRelationshipSpecialty Start DateEnd Date Ole Yang MD [address] [place] [address] PCP - [facility]07/10/22 Ole Yang MD [address] [place] [address] PCP - GeneralInternal Medicine07/28/22ThursdayBea LPN [address] [place] [address] Licensed Practical NurseFamily Medicine10/27/23Team MemberRelationshipSpecialty Start DateEnd Date Ole Yang MD [address] [place] [address] PCP - [facility]07/10/22 Ole Yang MD [address] [place] [address] PCP - GeneralInternal Medicine07/28/22Thursday, YASIR FigueredoN [address] [place] [address] [facility]Cl[facility]10/27/23Team MemberRelationshipSpecialty Start DateEnd Date Ole Yang MD [address] [place] [address] P[facility] - [facility]07/10/22 Ole Yang MD [address] [place] [address] PCP - GeneralInternal Medicine07/28/22Thursday, YASIR FigueredoN [address] [place] [address] [facility]Cl[facility] Medicine10/27/23Te MemberRelationshipSpecialty Start DateEnd Date Ole Yang MD [address] [place] [address] PCP - [facility]07/10/22 Ole Yang MD [address] [place] [address] PCP - GeneralInternal Medicine07/28/22Thursday, JUAN Figueredo [address] [place] [address] Licensed Practical NurseFamily Medicine10/27/23Team MemberRelationshipSpecialty Start DateEnd Date Ole Yang MD [address] [place] [address] PCP - [facility]07/10/22 Ole Yang MD [address] [place] [address] PCP - GeneralInternal Medicine07/28/22 Debora Saenz, RN Licensed Practical NurseFamily Medicine03/25/24Team MemberRelationshipSpecialty Start DateEnd Date Ole Yang MD [address] [place] [address] PCP - [facility]07/10/22 Ole Yang MD [address] [place] [address] PCP - GeneralInternal Medicine07/28/22 Debora Saenz, RN Licensed Practical NurseFamily Medicine03/25/24Team MemberRelationshipSpecialty Start DateEnd Date Ole Yang MD [address] [place] [address] PCP - GeneralInternal Medicine08/13/22Team MemberRelationshipSpecialtyStart Date End Date Ole Yang MD [address] [place] [address] PCP - [facility]07/10/22 Ole Yang MD [address] [place] [address] PCP - GeneralInternal Medicine07/28/22 Edna Alcantara, [facility] 05/06/24Team MemberRelationshipSpecialtyStart DateEnd Date Ole Yang MD [address] [place] [address] PCP - [facility]07/10/22 Ole Yang MD [address] [place] [address] PCP - GeneralInternal Medicine07/28/22 [facility] 05/06/24Team MemberRelationshipSpecialtyStart DateEnd Date Ole Yang MD [address] [place] [address] PCP - [facility]07/10/22 Ole Yang MD [address] [place] [address] PCP - GeneralInternal Medicine07/28/22 Edna Alcantara, [facility] 05/06/24Team MemberRelationshipSpecialtyStart DateEnd Date Ole Yang MD [address] [place] [address] PCP - [facility]07/10/22 Ole Yang MD [address] [place] [address] PCP - GeneralInternal Medicine07/28/22 Edna Alcantara, [facility] 05/06/24Team MemberRelationshipSpecialtyStart DateEnd Date Ole Yang MD [address] [place] [address] PCP - [facility]07/10/22 Ole Yang MD [address] [place] [address] [facility]22 Edna Alacntara [facility] 05/06/24 Team Status: Active Member Role Status Dates Michael Zapien Attending Provider Active Start: October 25, 2003 Team Status: Inactive Member Role Status Dates Luis E Soares MD Attending Provider Active St art: July 22, 2024 End: July 22, 2024Team MemberRelationshipSpecialtyStart DateEnd Date Ole Yang MD [address] [place] [address] PCP - [facility]07/10/22 Ole Yang MD [address] [place] [address] PCP - [facility]07/28/22 Edna Alcantara [facility] 05/06/24Team MemberRelationshipSpecialtyStart DateEnd Date Ole Yang MD [address] [place] [address] PCP - [facility]07/10/22 Ole Yang MD [address] [place] [address] PCP - [facility]07/28/22 Edna Alcantara [facility] [address] [place] [address] 05/06/24Team MemberRelationshipSpecialtyStart DateEnd Date Ole Yang MD [address] [place] [address] PCP - [facility]07/10/22 Ole Yang MD [address] [place] [address] PCP - [facility]Internal [facility]07/28/22 Edna Alcantara LPN [address] [place] [address] 05/06/24Team MemberRelationshipSpecialtyStart DateEnd Date Ole Yang MD [address] [place] [address] PCP - [facility]07/10/22 Ole Yang MD [address] [place] [address] PCP - [facility]Internal Medicine07/28/22 Edna Alcantara LPN [address] [place] [address] 05/06/24Team MemberRelationshipSpecialtyStart DateEnd Date Ole Yang MD [address] [place] [address] PCP - [facility]07/10/22 Ole Yang MD [address] [place] [address] PCP - [facility]Internal Medicine07/28/22 Edna Alcantara LPN [address] [place] [address] 05/06/24Team MemberRelationshipSpecialtyStart DateEnd Date Ole Yang MD [address] [place] [address] PCP - [facility]07/10/22 Ole Yang MD [address] [place] [address] PCP - GeneralInternal Medicine07/28/22 Edna Alcantara LPN [address] [place] [address] 05/06/24Team MemberRelationshipSpecialtyStart DateEnd Date Ole Yang MD [address] [place] [address] PCP - [facility]07/10/22 Ole Yang MD [address] [place] [address] PCP - [facility]Internal [facility]07/28/22 Edna Alcantara LPN [address] [place] [address] 05/06/24Team MemberRelationshipSpecialtyStart DateEnd Date Ole Yang MD [address] [place] [address] PCP - [facility]07/10/22 Ole Yang MD [address] [place] [address] PCP - [facility]Internal [facility]07/28/22 Edna Alcantara LPN [address] [place] [address] 05/06/24 Team Status: Inactive Member Role Status Dates Ole Yang II MD Attending Provider Active S tart: September 26, 2024 End: September 26, 2024Team MemberRelationshipSpecialtyStart DateEnd Date Ole Yang MD [address] [place] [address] PCP - [facility]07/10/22 Ole Yang MD [address] [place] [address] PCP - GeneralInternal Medicine07/28/22 Edna Alcantara LPN [address] [place] [address] 05/06/24Team MemberRelationshipSpecialtyStart DateEnd Date Ole Yang MD [address] [place] [address] PCP - [facility]07/10/22 Ole Yang MD [address] [place] [address] PCP - [facility]Internal [facility]07/28/22 Edna Alcantara LPN [address] [place] [address] 05/06/24Team MemberRelationshipSpecialtyStart DateEnd Date Ole Yang MD [address] [place] [address] PCP - [facility]07/10/22 Ole Yang MD [address] [place] [address] PCP - [facility]Internal Medicine07/28/22 Edna Alcantara LPN [address] [place] [address] 05/06/24Team MemberRelationshipSpecialtyStart DateEnd Date Ole Yang MD [address] [place] [address] PCP - [facility]07/10/22 Ole Yang MD [address] [place] [address] [facility] Edna Alcantara LPN [address] [place] [address] 05/06/24 Team Status: Active Member Role Status Dates Ole Yang II MD Primary Care Provider Active Team Status: Active Member Role Status Dates Ole Yang II MD Primary Care Provider Active Start: October 31, 2024 Daniel Leggett ProviderActiveStart: October 31, 2024 Kamaljit Ziegler DOAdmit ProviderActiveStart: October 31, 2024 Kamaljit Ziegler DOAttending ProviderActiveStart: October 31, 2024 Team Status: Active Member Role Status Dates Ole Yang II MD Primary Care Provider Active Start: October 31, 2024 Daniel Leggett ProviderActiveStart: October 31, 2024 Kamaljit Ziegler DOAdmit ProviderActiveStart: October 31, 2024 Stephan Dawn MDOther ProviderActiveStart: October 31, 2024 Wyatt De La Torre MDOther ProviderActiveStart: October 31, 2024 Tory Guother ProviderActiveStart: October 31, 2024 Jojo Hutson , DOOther ProviderActiveStart: October 31, 2024 oJel Infante MDOther ProviderActiveStart: October 31, 2024 Jakub Coffman , DOOther ProviderActiveStart: October 31, 2024 Eulogio Evans , DOAttending ProviderActiveStart: October 31, 2024 Eulogio Evans , DOOther ProviderActiveStart: October 31, 2024 Mitzi Chan , APRNOther ProviderActiveStart: October 31, 2024 Pita Coombs , [id number] ProviderActiveStart: October 31, 2024 Team Status: Active Member Role Status Dates Ole Yang II MD Primary Care Provider Active Start: November 03, 2024 Harpreet Sebastian MDEmergency ProviderActiveStart: November 03, 2024 Kamaljit Ziegler , DOAdmit ProviderActiveStart: November 03, 2024 Stephan Dawn MDOther ProviderActiveStart: November 03, 2024 Wyatt De La Torre MDOther ProviderActiveStart: November 03, 2024 Tory Guother ProviderActiveStart: November 03, 2024 Jojo Hutson , DOOther ProviderActiveStart: November 03, 2024 Joel Infante MDOther ProviderActiveStart: November 03, 2024 Jakub Coffman , DOOther ProviderActiveStart: November 03, 2024 Eulogio Evans , DOOther ProviderActiveStart: November 03, 2024 Mitzi Chan , APRNOther ProviderActiveStart: November 03, 2024 Pita Coombs , GGTW-[id number] ProviderActiveStart: November 03, 2024 Shayna Adkins , MDAttending ProviderActiveStart: November 03, 2024 Team Status: Inactive Member Role Status Dates Ole Yang II MD Primary Care Provider Active Start: November 07, 2024 End: November 07, 2024Kenneth Hernandez PhDAttending ProviderActiveStart: November 07, 2024 End: November 07, 2024Team MemberRelationshipSpecialtyStart DateEnd Date Ole Yang MD [address] [place] [address] PCP - [facility] 07/10/22 Ole Yang MD [address] [place] [address] PCP - [facility]Internal [facility]07/28/22 Edna Alcantara LPN [address] [place] [address] 05/06/24 Team Status: Inactive Member Role Status Dates Ole Yang II MD Primary Care Provider Active Start: November 15, 2024 End: November 15, 2024Kenneth Hernandez , PhDAttending ProviderActiveStart: November 15, 2024 End: November 15, 2024 Team Status: Inactive Member Role Status Dates Ole Yang II MD Primary Care Provider Active Start: November 21, 2024 End: November 21, 2024Kenneth Hernandez , PhDAttending ProviderActiveStart: November 21, 2024 End: November 21, 2024Team MemberRelationshipSpecialtyStart DateEnd Date Ole Yang MD [address] [facility] [address] [place] [address] PCP - [facility]07/10/22 Ole Yang MD [address] [facility] [address] [place] [address] PCP - GeneralInternal Medicine07/28/22 Edna Alcantara LPN [address] [facility] [address] [place] [address] 05/06/24Team MemberRelationshipSpecialtyStart DateEnd Date Ole Yang MD [address] [place] [address] PCP - [facility]07/10/22 Ole Yang MD [address] [place] [address] PCP - GeneralInternal Medicine07/28/22 Edna Alcantara LPN [address] [place] [address] 05/06/24Team MemberRelationshipSpecialtyStart DateEnd Ole Yang MD [address] [place] [address] PCP - [facility]07/10/22 Ole Yang MD [address] [place] [address] PCP - GeneralInternal Medicine07/28/22 Edna Alcantara LPN [address] [place] [address] 05/06/24Te MemberRelationshipSpecialtyStart DateEnd Date Ole Yang MD [address] [place] [address] PCP - [facility]07/10/22 Ole Yang MD [address] [place] [address] PCP - GeneralInternal Medicine07/28/22ThursdayBea LPN [address] [place] [address] Licensed Practical NurseFamily Medicine Debora Saenz, CHERI [address] [place] [address] Licensed Practical NurseFamily Medicine Edna Alcantara LPN [address] [place] [address] 05/06/24Team MemberRelationshipSpecialtyStart DateEnd Date Ole Yang MD [address] [place] [address] P[facility] - [facility]07/10/22 Ole Yang MD [address] [place] [address] [facility] - [facility] Edna Alcantara LPN [address] [place] [address] 05/06/24Te MemberRelationshipSpecialtyStart DateEnd Date Ole Yang MD [address] [place] [address] [facility]07/10/22 Ole Yang MD [address] [place] [address] [facility] - [facility] Edna Alcantara LPN [address] [place] [address] 05/06/24 Goals (unrecognized section and content) Type [...] BE BASED ON THE PRIMARY CLINICAL RECORDS. [facility]. provides no warranty or guarantee of the accuracy or completeness of information in this document.
[2025-01-11 10:38] LABS: Anion Gap 12.6; Blood Urea Nitrogen 23.0 mg/dL (7.0-18.0); Calcium 10.3 mg/dL (8.5-10.1); Carbon Dioxide 33.7 mmol/L (21.0-32.0); Chloride 100 mmol/L (98-107); Estimated GFR (African America 58 (>=60 mL/min/1.73m^2); Estimated GFR (Non-African Ame 48 (>=60 mL/min/1.73m^2); Glucose 133 mg/dL (74-106); Potassium 4.3 mmol/L (3.5-5.1); Sodium 142 mmol/L (136-145)
== END 2025-01-11 08:01 | disposition home or self-care (01) ==
LOC: LAB 08:03
PROVIDERS: PCP Internal Medicine
DX: R60.9 Edema, unspecified (principal)
CPT/HCPCS: 36415; 80048

== ENCOUNTER 2025-02-08 08:50 | Outpatient (OUT) | payer MEDICARE, OTHER, SELFPAY ==
--- OUTSIDE RECORDS SUMMARY | 2025-02-02 07:34 | XMS_ITS | Continuity of Care Document ---
Author Organization [facility] Address [address] [place] [address] Phone Care Team Providers Care Short Story Writer Name Role Phone CurryMichael Attending Provider Ole Yang II Primary Care Provider Kenneth Hernandez PhD Attending Provider Amie Padron Attending Provider [phone] Care Teams Patient Care Team Team Status: Active Member Role/Relationship Status Dates Ole Yang II MD Primary Care Provider Active Visit Care Team Team Status: Active Member Role/Relationship Status Dates Michael Zapien Attending Provider Active Start: October 25, 2003 Visit Care Team Team Status: Inactive Member Role/Relationship Status Dates Ole Yang II MD Primary Care Provider Active Start: November 07, 2024 End: November 07, 2024Kenneth Hernandez PhDAttending ProviderActiveStart: November 07, 2024 End: November 07, 2024 Visit Care Team Team Status: Inactive Member Role/Relationship Status Dates Ole Yang II MD Primary Care Provider Active Start: November 15, 2024 End: November 15, 2024Kenneth Hernandez PhDAttending ProviderActiveStart: November 15, 2024 End: November 15, 2024 Visit Care Team Team Status: Inactive Member Role/Relationship Status Dates Ole Yang II MD Primary Care Provider Active Start: November 21, 2024 End: November 21, 2024Kenneth Hernandez PhDAttending ProviderActiveStart: November 21, 2024 End: November 21, 2024 Patient Care Team Team Status: Inactive Member Role/Relationship Status Dates Ole Yang II MD Primary Care Provider Active Start: February 02, 2025 End: February 02zachery Padron MDAttending ProviderActiveStart: February 02, 2025 End: February 02, 2025 Chief Complaint and Reason for Visit Chief Complaint Admit Date ^ October 25, 2003 6:00am NPCR MCR & MCR SUPP; ASSESSMENT 2024 2:51pm NPCR MCR & MCR SUPP; TESTING October 192024 1:57pm ckd 3 ref by Eulogio Wahl February 02, 2025 11:48am Reason for Visit Admit Date Anxiety and depression November 07, 2 025 2:51pm Concentration deficit November 07 2:51pm Dementia November 07, 2024 2:51pm Family history of dementia October 2:51pm Memory loss November 07, 2024 2:51pm Other insomnia November 07, 2024 2:51pm Word finding difficulty November 07, 2024 2:51pm Anxiety and depression November 15, 2 025 1:57pm Concentration deficit November 15 1:57pm Family history of dementia October 1:57pm Memory loss November 15, 2024 1:57pm Mild neurocognitive disorder October 192024 1:57pm Other insomnia November 15, 2024 1:57pm Word finding difficulty November 15, 2024 1:57pm Anxiety and depression November 21, 2024 3:17pm Concentration deficit November 21, 2024 3:17pm Family history of dementia November 21, 2024 3:17pm Memory loss November 21, 2024 3: 17pm Mild neurocognitive disorder November 3:17pm Other insomnia November 21, 2024 3: 17pm Word finding difficulty November 21 3:17pm Anemia February 02, 2025 11:48am CKD (chronic kidney disease) stage 3, GF R 30-59 ml/min February 02, 2025 11:48am Hyperlipidemia February 02, 2025 11:48am Hypertensive chronic kidney disease with stage 1 through stage 4 chronic ki February 02, 2025 11:48am Secondary hyperparathyroidism January 162024 11:48am Allergies, Adverse Reactions, Alerts Allergen Type Severity Reaction Last Updated Verified Status No Known Allergies Allergy Unknown February 02, 2025 11:54amYesActive Social History Smoking Status Status Start Date End Date Date of Observa tion Never smoked tobacco (finding) February 02, 2025 12:00pm Observation Status Observation Response Date of Response Legal Sex Female (finding) Sex Assigned At BirthFemaleJuly 1940 Family History Relationship Condition Age at Onset Recorded Date/T dixon brother Suicide Unknown Diabetes mellitusUnknownmotherMyocardial infarctionUnknownMalignant neoplasm UnknownfatherMyocardial infarctionUnknownMalignant neoplasmUnknown Problems Active Problems Problem Diagnosis/Recorded Date Onset Date Stat us Word finding difficulty November 09, 2024 1:50pm Un known Active Secondary hyperparathyroidism February 01, 2025 2:53 pm Unknown Active Suicidal ideation October 31, 2024 10:11pm Unknown Active CKD (chronic kidney disease) stage 3, GFR 30-59 ml/min February 01, 2025 2:53pm Unknown Active Memory loss November 09, 2024 1:47pm Unknown Active Anemia February 01, 2025 2:54pm Unknown A ctive Hypertensive chronic kidney disease with stage 1 through stage 4 chronic kidney disease, or unspecified chronic kidney disease February 01, 2025 2:53pm Unknown Active Dementia November 02, 2024 1:53pm Unknown Active Mild neurocognitive disorder November 16, 2024 4:27pm Unknown Active Hyperlipidemia October 31, 2024 6:18pm Unknown Active Other insomnia November 09, 2024 1:51pm Unknown Active Family history of dementia November 09, 2024 1:51pm Unknown Active Anxiety and depression November 09, 2024 1:51pm Unk nown Active Concentration deficit November 09, 2024 1:51pm Unkn own Active Inactive/Resolved Problems Problem Diagnosis/Recorded Date Onset Date Stat us DONNA (acute kidney injury) October 31, 2024 6:07pm Unknown Resolved Acute dehydration October 31, 2024 6:07pm Unknown Resolved Homicidal ideations October 31, 2024 10:12pm Unkno wn Resolved Acute hyperkalemia October 31, 2024 6:07pm Unknown Resolved Medications Medication Status Dose Units Route Directions Qty Days Refills S tart Date Stop Date End Date Reason(s) Instructions Adherence Apixaban (Eliquis) 5 mg tablet Active 5 MG PO T wice daily October 30, 2024 11:00pmComplies with drug therapyAspirin (Adult Aspirin Regimen) 81 mg tablet,delayed release (DR/EC)Ehtcrw62BRTXDzhhsWsqpzpzgy 14th, 2025 11:00pmComplies with drug therapyAtorvastatin 80 mg oimwpiDcrymc45KTVNZhhfq October 30, 2024 11:00pmComplies with drug therapyCalcium Carbonate-Vitamin D2 600 mg calcium- 200 unit pcsyrbBasqdkouahzm2NRXFLNjqlkDubbiosnv 14th, 2025 11:00pmDecemb2024 11:59amCholecalciferol (Vitamin D3) (D3 Dots) 50 mcg (2,000 unit) xwnfnpPhpnkd24HUESGIjuokLmgqenijt 14th, 2025 11:00pmComplies with drug therapyLisinopril 5 mg tabletDiscontinued2.5MGPODailySeptember 2024 11:00pm2024 11:59amOn Hold: Hold until you see your Primary care doctorMethimazole 5 mg qsmlsdZwgezhkohcui1MFFBOlxoeAeuorftox 14th, 2025 11:00pm February 02, 2025 11:59amMetoprolol Succinate 50 mg tablet extended release 24 ggTlegji38YQWZBmanpTuqywqfgw 14th, 2025 11:00pmComplies with drug therapy Multivitamin (Daily Multi-Vitamin) lvprczGlmyts9LICGWTgwjrKtjdtpxtd 14th, 2025 11:00pmComplies with drug therapyParoxetine Hcl 20 mg kcaszgEhcnrq20ASFKEwxyu October 30, 2024 11:00pmComplies with drug therapySpironolactone 25 mg fdjlkvRfyjojfnloqj26DXRACmoqcLewmbewvz 2024 11:00pmDecemb2024 11:59amOn Hold: Hold until you see your primary care doctorLorazepam 0.5 mg tabletDiscontinued0.25MGPODaily at bedtimeSeptember 2024 11:00pmDece2024 11:59amOn Hold: Hold until you see your primary care doctorMelatonin 5 mg OeubfuFohykk5BQOJGphct at bedtime as needed for Rxsdsiut929Zenxhpcol 2024 11:00pmComplies with drug therapyMethimazole 5 mg ihzikpXzjqoi9WKOE.COMPLEX February 02, 2025 11:56am5 mg orally Sun, Tues, , Satur;Complies with drug therapyCalcium Carbonate-Vitamin D2 600 mg calcium- 200 unit tabletActive1 TABPOTwice dailyDe2024 11:57amComplies with drug therapyAmlodipine 5 mg mezmntWbkhws8XXQCZazpqSvgvtbll 18th, 2025 12:00amComplies with drug therapy Albuterol Sulfate 90 mcg/actuation HFA aerosol uijatjsWaozln7GYKKQAFCUSHTEENtgtg 6 hours as needed 2024 12:00amComplies with drug therapyBumetanide 1 mg hapfvgAxksrm0SVRNOwsobBdtbpnmr 18th, 2025 12:00amComplies with drug therapy Vital Signs Vital Reading Result Reference Range Collection Date/Time Height 67 [in_i] February 02, 2025 11:92icWmjlkp39.15 kg2024 11:52amBody Wocktjjnjnp09.3 [degF]97.6-99.0formerly [facility]2024 11:52amHeart Rate62 /min 60-100February 02, 2025 11:52amRespiratory rate18 /mam07-40Fxnknggs 18th, 2025 11:52amOxygen saturation by Pulse rlwofyzx612 %95-1002024 11:52amBP Gdejitvq312 mm[Hg]100-1402024 11:52amBP Kbwbumbtq32 mm[Hg]60-100Dece2024 11:52amBMI (Body Mass Index)27.3 kg/z7Lpzhlpwq2024 11:52amInhaled oxygen flow rate3 L/minDece2024 11:52am Advance Directives Advance Directive Response Recorded Date/ Time Advance Directives No October 5:48pm Insurance Providers Guarantor Lluvia Ferraro Address [address] [place] [id number] Info.Home Phone: Coverage Status Update:2024 Payer Group Member ID Coverage Type Subscriber Relationship to Subscriber Effective Date Expiration Date Medicare [id number] L Castle Id: [id number] [address] [place] [id number] Home Phone: Email: [id number] Insurance [address] [place] [address] Work Phone: Id: PLAN [id number] L Castle Id: [id number] [address] [place] [id number] Home Phone: Email: [id number] Encounters Encounter Location(s) Arrival/Admit Date Discharge/Departure Date Discharge/Departure Disposition Provider(s) Admitted Inpatient -[address] [place] [address] October 24 6:00am MICHAEL Ruiz Physician/Provider Office Visit-[facility] NeurologySeptember 2024 2:51pmSept2024 3:39pmDischarged to home care or self care (routine discharge)Fabiana Nealpartanika [facility] 1:57pmSeptember 2024 4:09pmDischarged to home care or self care (routine discharge)Fabiana Neal Physician/Provider Office Visit- [facility] NeurologyOctober 2024 3:17pmOctober 2024 4:14pm Discharged to home care or self care (routine discharge)Fabiana Neal Physician/Provider Office Visit-[facility] 20[facility] 12:33pmDischarged to home care or self care (routine discharge)Mark Padron MD Recent Diagnosis Onset Date Admit Date Anxiety and depression Unknown November 07, 2024 2:51pm Concentration deficit Unknown November 07, 2024 2:51pm Dementia Unknown November 07, 2024 2:51pm Family history of dementia Unknown [facility] 2024 2:51pm Memory loss Unknown November 07, 2024 2:51pm Other insomnia Unknown November 07, 2024 2:51pm Word finding difficulty Unknown [facility] 2024 2:51pm Anxiety and depression Unknown November 15, 2024 1:57pm Concentration deficit Unknown November 15, 2024 1:57pm Family history of dementia Unknown 2024 1:57pm Memory loss Unknown November 15, 2024 1:57pm Mild neurocognitive disorder Unknown Oct 1:57pm Other insomnia Unknown November 15, 2024 1:57pm Word finding difficulty [facility] 1:57pm Anxiety and depression Unknown November 212024 3:17pm Concentration deficit Unknown November 3:17pm Family history of dementia Unknown 2024 3:17pm Memory loss Unknown November 21 3:17pm Mild neurocognitive disorder Unknown Nov 3:17pm Other insomnia Unknown November 21 3:17pm Word finding difficulty Unknown November 21, 2024 3:17pm Anemia Unknown February 02, 2 025 11:48am CKD (chronic kidney disease) stage 3, GFR 30-59 ml/min Unknown February 02, 2025 11:48am Hyperlipidemia Unknown February 02, 2 025 11:48am Hypertensive chronic kidney disease with stage 1 through stage 4 chronic ki Unknown February 02, 2025 11:48 am Secondary hyperparathyroidism Unknown 2024 11:48am Assessments Diagnosis Onset Date Resolution Status Admit Date Anxiety and depression acuteSeptember 2024 2:51pmConcentration deficitacuteSeptember 2024 2:51pmDementiaacuteSeptember 2024 2:51pmFamily history of dementiaacute November 07, 2024 2:51pmMemory lossacuteSeptember 2024 2:51pmOther insomniaacuteSeptember 2024 2:51pmWord finding difficultyacuteSeptember 2024 2:51pmAnxiety and depressionacuteSeptember 2024 1:57pm Concentration deficitacuteSeptember 2024 1:57pmFamily history of dementia acuteSeptember 2024 1:57pmMemory lossacuteSept2024 1:57pmMild neurocognitive disorderacuteSept2024 1:57pmOther insomniaacute November 15, 2024 1:57pmWord finding difficultyacuteSeptember 2024 1:57pmAnxiety and depressionacuteOctober 2024 3:17pmConcentration deficit acuteOctober 2024 3:17pmFamily history of dementiaacuteOctober 2024 3:17pmMemory lossacuteOctober 2024 3:17pmMild neurocognitive disorderacute November 21, 2024 3:17pmOther insomniaacuteOctober 2024 3:17pmWord finding difficultyacuteOctober 2024 3:17pmAnemiaacuteDecember 2024 11:48amCKD (chronic kidney disease) stage 3, GFR 30-59 ml/minacuteDeceer 2024 11:48amHyperlipidemiaacuteDeceer 2024 11:48amHypertensive chronic kidney disease with stage 1 through stage 4 chronic kiacuteDeceer 2024 11:48am Secondary hyperparathyroidismacuteDecember 2024 11:48am Plan of Treatment Author Mark Padron [facility] 2024 12:27pmIt was a pleasure to see Mrs. Ferraro in our office for an evaluation and management of CKD. As you know she has a longstanding hypertension and likely has a CKD as a result of it. Her baseline serum creatinine is 1.1 mg/dL. I ordered a renal ultrasound to evaluate the renal anatomy. I have ordered the UA and UPCR to evaluate for hematuria and proteinuria. I have discussed with her the importance of good HTN control this along the progression of CKD. Her blood pressure is controlled and she appears to be euvolemic. Will continue current dose of the antihypertensive medication. Advised the patient and the family to monitor blood pressure at home and call office if stays above 140 over 90 mmHg. I explained to her based on the previous record her target weight should be 170 pounds. If she gains 3 pounds above her target weight she should take a Bumex. She has a lymphedema and can be benefit referral to the lymphedema clinic. Will defer this to the PCP. Will continue statins. Will continue monitor LFTs and lipid profile. Serum calcium is within normal limit. Will check PTH and vitamin D. She has anemia due to the unclear etiology. Differential diagnoses are iron deficiency anemia, B12 folic acid deficiency anemia or paraproteinemia. Will do a workup to rule out these differential diagnosis. Future Tests Future scheduled test information is unavailable Pending Tests Test Name Ordered Date Scheduled Date Renal Function Panel February 02, 2025 12:13pm 2 Months US renal BI February 02, 2025 12:24pm Future Visits Future appointment information is unavailable Future Procedures Procedure Name Ordered Date Scheduled Date Dipstick and Microscopic February 02, 2025 12: 13pm 2 Months Hemogram CBC Without Diff February 02, 2025 12 :13pm 2 Months Iron and TIBC Profile February 02, 2025 12:13p m 2 Months Ferritin February 02, 2025 12:13pm 2 Mo nths Magnesium February 02, 2025 12:13pm 2 Mo nths Protein Creat Ratio Ur Random February 02 12:13pm 2 Months Parathyroid Hormone Intact February 02, 2025 1 2:13pm 2 Months Uric Acid February 02, 2025 12:13pm 2 Mo nths Vitamin D 25 Hydroxy Total February 02, 2025 1 2:13pm 2 Months Future Medications Future medication information is unavailable Patient Instructions Patient instructions are unavailable
--- NOTE | 2025-02-08 08:56 | US_ITS ---
The [address] [address] Patient Name: SALINA MORENO MRN: [id number] date: 1940 Sex: F Assigned Patient Location: US Current Patient Location: US Accession/Order Number: [id number] Exam Date: 02/08/2025 09:05 Report Date: 02/08/2025 10:04 At the request of: FELIX BARBOZA MD Procedure: US renal BI BILATERAL RENAL AND BLADDER ULTRASOUND CLINICAL HISTORY: Stage 3 Chronic Kidney Disease, Hypertensive Renal Disease COMPARISON: 07/23/2024 Estimation of renal size is approximately 8.0 cm on the right and 9.6 cm on the left. No shadowing calculi or hydronephrosis are identified. No renal mass lesions were imaged. There is no perinephric fluid. The urinary bladder is poorly distended with a volume of 7 mL. This limits evaluation. US/US renal BI IMPRESSION: NO OBSTRUCTIVE UROPATHY. Impression dictated by: Dipti Robles M.D. 02/08/2025 10:04 AM Dictation Location: [facility] Electronically authenticated by: [id number] Date: 02/08/2025 10:04
--- OUTSIDE RECORDS SUMMARY | 2025-02-08 08:56 | XMS_ITS | Clinical Summary ---
Author Organization [facility] Address [address] [place] [address] Care Team Providers Care Assisted Living Care Manager Name Role Phone Ole Yang MD Primary Care Provider [phone] Allergies Active AllergyReactionsCriticalityNoted DateCommentsLorazepamHallucinationsHigh 11/08/20246998IennuroqfkbslgVxhtwBkfkim35/23/2025 Hyperkalemia Medications MedicationSigDispense QuantityRefillsLast FilledStart DateEnd DateStatus [...] Additional Information Patient not taking.Reported on 12/12/2024 yeblmphhyp-oywyrcqy-bkhpzsdwwc (Breztri Aerosphere) 160-9-4.8 mcg/actuation HFA aerosol inhaler Inhale.Active lisinopril 2.5 mg tablet Take 1 tablet (2.5 mg) by mouth in the morning. 30 tablet 11103/27/2023ctive Additional Information Patient not taking.Reported on 12/12/2024 albuterol 90 mcg/actuation inhaler inhale 2 puffs every 4 (four) hours if needed for finwbwgp47/10/2024ctive Rexulti 0.5 mg tablet Take 0.25 mg by mouth in the morning.Active melatonin 5 mg tablet Take 5 mg by mouth at bedtime.5Active amLODIPine (Norvasc) 5 mg tablet Indications:Essential hypertension,Coronary artery disease involving capitan grande coronary artery of capitan grande heart without angina pectorisTake 1 tablet (5 mg) by mouth once daily as directed. 90 tablet 6Active Active Problems ProblemNoted DateDiagnosed DateAcute wcxddnzjdaf81/24/2025ute hyperkalemia 12/09/2024KI (acute kidney injury)12/09/2024nxiety and nbxejeinne57/24/2025 Concentration rrhvgbb3612/09/2024Family history of oqobxrdr80/24/2025Homicidal fdrrvoarz80/24/2025Mild neurocognitive abjkfyib35/24/2025Other insomnia 12/09/2024Suicidal ztpypsvk34/24/2025Word finding ynzgpqurzw59/24/2025Essential /26/2025Pure busbgqdfhlnnczripehi83/26/2025Trouble in sleeping 07/07/2024hronic kidney disease, stage 3b02/25/2024Supplemental oxygen clwrwxbay46/09/3557Eezlosd32/10/2024yspnea on noelesbo96/21/2024ardiomyopathy 4Chronic a-fib08/07/2023Memory /10/2024Current use of watermelon harvesting supervisor cpjzdliktwxijjt94/27/2023ge-related osteoporosis without current pathological iaxavoio81/hronic systolic dysfunction of left inagceqnt07iplopiaFrequent falls Impaired fasting mrhtxza90Mild episode of recurrent major depressive wunajgwi29Overweight (BMI 25.0-29.9)Rotator cuff syndrome of right dgecuyqo47/12/2023 12/30/2022hronic combined systolic and diastolic heart wibztfq5507/28/2022 Systolic heart vlnrngn2407/24/2021 Assessment & Plan (07/08/2023 11:11 AM EDT): [facility], currently appears euvolemic and weight [...] after testing Status post biventricular cardiac pacemaker xfdogjdof95/13/2021levated liver tvjdywi9108/24/2020anlobular hngesuhci49/01/2021 Assessment & Plan (07/08/2023 11:16 AM EDT): If cardiac studies are without any acute concerns she may need to F/U with pulmonary for evaluationof CLAIRE History of stroke without residual cjdojpfz87/08/8569Uhbjjcanvkzbxax82/08/2019 Chronic obstructive pulmonary veaxxyn4006/11/2017Inflammation of joint of right shoulder atqigo5009/22/2016Mild intermittent lyxtay7309/12/2016Pulmonary function studies /28/2017Tear of right rotator cuff09/12/2016Internal derangement of right oigvatqp39/20/2017Primary omsgnuputawubo88/20/2017Primary ovarian ockeafe0908/05/2016Non-rheumatic mitral arllonmulbfoz18/20/2017 Assessment & Plan (07/08/2023 11:12 AM EDT): Repeat echocardiogram to assess MR in light of worsening CLAIRE Atherosclerosis of coronary artery without angina Assessment & Plan (07/08/2023 11:14 AM EDT): Lexiscan stress test to assess cardiac perfusion for any significant defect that would warrant a cardiac cath with possible PCI for concerning stenosis Continue GDMT- ASA, lipitor toprol Inguinal pain10/04/20157453Yzepjkz64/08/2016Cerebrovascular jxtyglhb56/08/2016 Coronary artery disease involving capitan grande coronary artery of capitan grande heart without angina tjxwirfh43/08/2016Hematoma of groin09/24/2015Benign hypertensive heart disease with heart qixkztc8409/24/2015 Assessment & Plan (07/08/2023 11:13 AM EDT): HTN is well controlled 130/84- she does admit at home b/p is lower 100-120/70-80 denied any lightheadedness/dizziness or syncope. Continue lisinopril, toprol and aldactone Persistent atrial hamcjedsrukh15/08/2016 Assessment & Plan (07/08/2023 11:11 AM EDT): Remains on eliquis without any bleeding tendencies S/P AV node ablation and TROLLEY CAR OVERHAULER-D is 98% Bi-V pacing per device interrogation Resolved Problems ProblemNoted DateDiagnosed DateResolved DateICD (implantable cardioverter- defibrillator) in place/ Assessment & Plan (07/08/2023 11:15 AM EDT): Device interrogations reviewed Device check q 6 months Mitral valve ixjleqyyzbgtk16 Encounters DateTypeDepartmentCare MhcyYaixfgbqbkx37/08/2025 12:15 PM ESTAncillary Procedure [facility] [address] [place] [address] Pre-operative cardiovascular examination, ICD in place01/23/2025Orders Only [facility] [address] [place] [address] Keanu Islas MD 01/05/2025Orders Only [facility] [address] [facility] [place] [address] Valarie Laguerre MA Edema, unspecified type (Primary Dx)12/29/2024Telephone [facility] [address] [facility]], [place] [address] Valarie Laguerre MA 12/23/2024 10:30 AM ESTAncillary Procedure [facility] [address] [place] [address] Pre-operative cardiovascular examination, ICD in place12/23/2024Orders Only [facility] [address] [place] [address] Soni Nowak MD 12/19/2024Telephone [facility] [address] [facility]], [place] [address] Ann Marie Del Valle MA 12/19/2024Telephone [facility] [address] [facility]], [place] [address] Ann Marie Del Valle MA 12/14/2024Orders Only [facility] [address] [facility]], [place] [address] Ann Marie De lValle MA Abnormal laboratory test (Primary Dx)12/13/2024Refill [facility] [address] [facility]], [place] [address] Ann Marie Del Valle MA 12/13/2024Orders Only [facility] [address] [facility]], [place] [address] Ann Marie Del Valle MA Essential hypertension (Primary Dx); Coronary artery disease involving capitan grande coronary artery of capitan grande heart without angina cvfhyccq00/27/2025 3:40 PM EDTOffice Visit [facility] [address] [facility]], [place] [address] Eulogio Wahl CNP Acute on chronic heart failure with preserved ejection fraction (CMS/HCC) (Primary Dx); Dilated cardiomyopathy (CMS/HCC); Dyspnea on exertion; Atherosclerosis of capitan grande coronary artery of capitan grande heart without angina pectoris; Chronic a-fib (CMS/HCC); Status post biventricular cardiac pacemaker insertion; Chronic kidney disease, stage 3b (CMS/HCC); Hyperthyroidism; Benign hypertensive heart disease with heart failure (CMS/HCC); ICD (implantable cardioverter-defibrillator) in place; Bilateral lower extremity edema12/12/2024Telephone [facility] [address] [facility] [place] [address] Ann Marie Del Valle MA 11/22/2024 10:45 AM EDTAncillary Procedure [facility] [address] [place] [address] Pre-operative cardiovascular examination, ICD in place11/22/2024Orders Only [facility] [address] [place] [address] Keanu Islas MD from Last 3 Months Immunizations ImmunizationAdministration DatesNext DueInfluenza, High Dose Seasonal, Preservative Free01/17/2021,12/02/2017,12/11/2016Influenza, injectable, lsleszttsekt68/21/2014Influenza, injectable, quadrivalent, preservative free 11/13/2014Influenza, seasonal, povwzwtzgs74/24/2013Influenza, trivalent, mynpqodcyj78/24/2020,11/25/2018Moderna 12 YR UP Vaccine BiValent Booster 02/03/2021,04/24/2020,1Pneumococcal Conjugate PCV 13006/25/2018 Pneumococcal Polysaccharide GPV424202/23/2019,08/17/2007 Family History Medical HistoryRelationNameCommentsCoronary artery diseaseBrotherHypertension BrotherKidney [...] file04/09/2023CommentsUnknownSex and Gender InformationValueDate RecordedSex Assigned at JnrooVlkdhp01/23/2025 11:40 AM EDT Legal AdqPgewri95/29/2022 11:46 PM EDTGender SgjqeviaLjrsoh83/23/2025 11:40 AM EDTSexual OrientationChoose not to zurhvgni58/14/2025 9:44 PM EDT Last Filed Vital Signs Vital SignReadingTime TakenCommentsBlood Llvedyrw762/8410 3:30 PM EDT Sgyjl8657 3:30 PM EDTTemperature--Respiratory Tlor6750 10:10 AM EDTOxygen Yacpptmpgl51%12/12/2024 3:30 PM EDTInhaled Oxygen Concentration-- Vwwrxc78.2 kg (179 lb)12/12/2024 3:30 PM RONBfgkiv561.2 cm (5' 7 )12/12/2024 3:30 PM EDTBody Mass Index28.041 3:30 PM EDT Plan of Treatment DateTypeDepartmentCare Team (Latest Contact Info)Fftzrjrxiht26/29/2025 2:40 PM ESTOffice Visit [facility] [address] [place] [address] Eulogio Wahl, EVENTS AND PROMOTIONS ASSISTANT [address] [place] [address] Health MaintenanceDue DateLast DoneCommentsMedicare Annual Wellness (AWV) 3Diabetes: Retinopathy Kqwhvdkyk84/01/1953epression Screening 1954Diabetes: Urine Protein Zxrdniuvw23/01/1962Adult Plvkbjg0908/16/1964Fall Risk Vnxfuvpis00/01/2008Diabetes: Hemoglobin A1C504/OVID-19 Vaccine ( season)/, 01/01/2023, 12/10/2021, Additional history existsInfluenza Vaccine (#1), 11/26/2022, 12/10/2021, Additional history existsPneumococcal Vaccine: 50+ YearsCompleted 02/23/2019, 06/25/2018, 08/17/2007Zoster XclxogkzMigvvijfq56/16/2023, 04/16/2022 HIB VaccinesAged OutNo longer eligible based [...] ImplantedTypeAreaManufacturerDevice IdentifierShelf Expiration DateModel / Serial / [id number] Vigilant X4 Feed Crusher-D [id number] Implanted:08/21/2021 (Quantity not on file)TROLLEY CAR OVERHAULER-D [id number] VIGILANT X4 TROLLEY CAR OVERHAULER-D / [id number] / [id number] [place] 4-Front S [id number] Implanted:08/21/2021 (Quantity not on file)[id number] RELIANCE 4-FRONT S / [id number] / [id number] Acuity X4 Straight [id number] Implanted:08/21/2021 (Quantity not on file)[id number] ACUITY X4 STRAIGHT / [id number] / Procedures Procedure NamePriorityDate/TimeAssociated DiagnosisCommentsCARDIAC DEVICE CHECK CHECK - DKGUOCCjhrofo77/11/2025 9:57 AM EST Pre-operative cardiovascular examination, ICD in place CARDIAC DEVICE CHECK - REMOTE ALERT - KAQZyqnobm06/08/2025 12:00 AM ESTCARDIAC DEVICE CHECK CHECK - HJMMFVCmyyekn05/11/2025 9:24 AM EST Pre-operative cardiovascular examination, ICD in place CARDIAC DEVICE CHECK - REMOTE ALERT - ZFTCzfxqvx71/07/2025 12:00 AM ESTCARDIAC DEVICE CHECK CHECK - EKVMCJVulrmxi90/13/2025 10:02 AM EDT Pre-operative cardiovascular examination, ICD in place CARDIAC DEVICE CHECK - REMOTE ALERT - TGKPurdvpg95/07/2025 12:00 AM EDTCARDIAC DEVICE CHECK CHECK - RAZNOAMrfhozy64/24/2025 1:36 PM EDT Pre-operative cardiovascular examination, ICD in place from Last 3 Months Results * CARDIAC DEVICE CHECK - REMOTE ALERT - ICD (01/26/2025 9:57 AM EST) Only the most recent of4 resultswithin the time period is included. Specimen (Source)Anatomical Location / LateralityCollection Method / Volume Collection TimeReceived Time Narrative Authorizing ProviderResult TypeResult StatusC[facility] IMPLANTABLE CARDIAC DEVICE PROCEDURESFinal ResultPerforming OrganizationAddressCity/State/ZIP Code Phone Number CPACS * Cardiac device check - Remote alert ICD (01/23/2025 12:00 AM EST) Only the most recent of3 resultswithin the time period is included. Anatomical RegionLateralityModalityOtherSpecimen (Source)Anatomical Location / LateralityCollection Method / VolumeCollection TimeReceived Time01/23/2025 Narrative Authorizing ProviderResult TypeResult StatusC[facility] IMPLANTABLE CARDIAC DEVICE PROCEDURESFinal Result from Last 3 Months Insurance Care Teams Team MemberRelationshipSpecialtyStart DateEnd Ole Yang MD [address] [facility] [address] [place] [address] [facility] - General10/07/21
--- OUTSIDE RECORDS SUMMARY | 2025-02-08 08:56 | XMS_ITS | Encounter Summary ---
Author Organization [facility] Address [address] [place] [address] Care Team Providers Care Promotional Advertising Assistant Name Role Phone Ole Yang MD Unavailable [phone] Ole Yang MD Primary Care Provider [phone] Edna Alcantara LPN Unavailable Encounter Details DateTypeDepartmentCare Team (Latest Contact Info)Oksqmdntvlz45/22/2025Patient Outreach [facility] [address] [place] [phone] Edna Alcantara LPN [address] [place] [address] Social History Tobacco UseTypesPacks/DayYears UsedDateSmoking Tobacco: NeverSmokeless Tobacco: NeverAlcohol UseStandard Drinks/WeekCommentsNever0 (1 standard drink = 0.6 oz pure alcohol)B1300 Health LiteracyAnswerDate RecordedHow often do you need to have someone help you when you read instructions, pamphlets, or other written material from your doctor or pharmacy?Xrynqxcev72/16/2025Humiliation, Afraid, Rape, and Kick questionnaireAnswerDate RecordedWithin the [...] relatives?Twice a week06/01/2024How often do you attend caodaism or bahai services?Never06/01/2024Do you belong to any clubs or organizations such as caodaism groups, unions, fraternal or athletic groups, or school groups?No06/01/2024How often do you attend meetings of the clubs or organizations you belong to?Never06/01/2024re you , , , , never , or living with a partner?Iunrtkx6006/01/2024 AUDIT-CAnswerDate RecordedQ1: How often do you have [...] very hard 06/01/2024PHQ-2AnswerDate RecordedPatient Health Questionnaire-2 Score0 11/08/2024Final[facility] [place] [facility] - Occupational Stress QuestionnaireAnswerDate [...] or living in a jail (including now)? No06/01/2024CommentsUnknownSex and Gender InformationValueDate Recorded Sex Assigned at BirthNot on fileLegal GliBtbmit72/15/2023 7:05 PM EDTGender IdentityNot on fileSexual OrientationNot on filedocumented as of this encounter Progress Notes * Edna Alcantara LPN - 02/06/2025 12:26 PM EST Spoke to pts daughter Ashtyn for outreach. She shares pt is doing ok. She has not had any behaviorsand is back to mom now. Ashtyn states that Kidney doctor suggested pt get referred to lymphedema clinic. I let her know I have messaged PCP to see if he would like referral ordered. I have not heard back yet but will let Ashtyn know when I do. She shares she is confused because PCP and hospital had told them to make sure pt drank lots of fluids because of UTI's and that pt had been severely dehydrated. She shares that Dr. Padron said pt should drink less to avoid swelling. I let pts daughter know that at the time pt was in hospital it may have been more beneficial to stay hydrated, however things may have changed now and that pt should follow Dr. Padron's instructions for fluid intake. I let Ashtyn know I will let her know if pt gets referred to lymphedema clinic. Ashtyn denies any other needs or concerns for pt. She states other than the leg swelling pt seems to be doing well. Encouraged to call if any needs arise. documented in this encounter Plan of Treatment DateTypeDepartmentCare Team (Latest Contact Info)Cxuayuuotnx46/29/2026 10:40 AM ESTProcedure Visit [facility] [address] [place] [address] Kenneth Clifton, DPM [address] [facility] [address] [place] [address] 03/22/2025 10:00 AM ESTOffice Visit [facility] [place] [address] [place] [address] Ole Yang MD [address] [place] [address] 05/31/2025 10:30 AM EDTOffice Visit [facility] [address] [place] [address] Teri Jo MD [address] [place] [address] documented as of this encounter Visit Diagnoses Diagnosis Chronic systolic heart failure (HCC)- Primary Chronic systolic heart failure Chronic kidney disease, stage 3b (CMS-HCC) documented in this encounter Additional Health Concerns AssessmentNoted TimePHQ-9 Depression Total Score: 13006/02/2024 9:00 AM EDT documented as of this encounter Care Teams Team MemberRelationshipSpecialtyStart DateEnd Date Ole Yang MD [address] [facility] [address] [place] [address] PCP - ACO Reach07/10/22 Ole Yang MD [address] [facility] [address] [place] [address] [facility]CP - [facility]07/28/22 Edna Alcantara LPN [address] [facility] [address] [place] [address] 05/06/24documented as of this encounter
--- OUTSIDE RECORDS SUMMARY | 2025-02-08 08:56 | XMS_ITS | Encounter Summary ---
Author Organization [facility] Address [address] [place] [address] Care Team Providers Care Tax Record Clerk Name Role Phone Ole Yang MD Primary Care Provider [phone] Encounter Details DateTypeDepartmentCare Team (Latest Contact Info)Jjngrnoafol68/08/2025Orders Only [facility] [address] [place] [address] Keanu Islas MD [address] [place] [address] Social History Tobacco UseTypesPacks/DayYears UsedDateSmoking Tobacco: NeverSmokeless Tobacco: NeverAlcohol UseStandard Drinks/WeekCommentsNot Currently0 (1 standard drink = 0.6 oz pure alcohol)IA Safety & EnvironmentAnswerDate RecordedFear of Current or Ex-PartnerNot on file04/09/2023Emotionally AbusedNot on file04/09/2023hysically AbusedNot on file04/09/2023Sexually AbusedNot on 04/09/2023hysically or Sexually AbusedNot on file04/09/2023CommentsUnknownSex and Gender InformationValueDate RecordedSex Assigned at WilyaAmcyio00/23/2025 11:40 AM EDT Legal IkdSayajc95/29/2022 11:46 PM EDTGender TakxstunSicpdk84/23/2025 11:40 AM EDTSexual OrientationChoose not to xjhwujaf60/14/2025 9:44 PM EDTdocumented as of this encounter Plan of Treatment DateTypeDepartmentCare Team (Latest Contact Info)Iuywoxpgnwa49/29/2025 2:40 PM ESTOffice Visit [facility] [address] [place] [address] Eulogio Wahl, CHIEF BANK EXAMINER [address] [place] [address] documented as of this encounter Procedures Procedure NamePriorityDate/TimeAssociated DiagnosisCommentsCARDIAC DEVICE CHECK - REMOTE ALERT - DLMDvziwub10/08/2025 12:00 AM ESTdocumented in this encounter Results * Cardiac device check - Remote alert ICD (01/23/2025 12:00 AM EST)Anatomical RegionLateralityModalityOtherSpecimen (Source)Anatomical Location / Laterality Collection Method / VolumeCollection TimeReceived Time01/23/2025 Narrative Authorizing ProviderResult TypeResult StatusPaul Roshan MDCV IMPLANTABLE CARDIAC DEVICE PROCEDURESFinal Result documented in this encounter Visit Diagnoses Not on filedocumented in this encounter Care Teams Team MemberRelationshipSpecialtyStart DateEnd Date Ole Yang MD [address] [place] [address] PCP - General10/07/21documented as of this encounter
--- OUTSIDE RECORDS SUMMARY | 2025-02-08 08:56 | XMS_ITS | Clinical Summary ---
Author Organization [facility] Address [id number] [address] [place] [address] Care Team Providers Care Automobile Sales Representative Name Role Phone Ole Yang MD Primary Care Provider [phone] Allergies No known active allergies Medications MedicationSigDispense QuantityRefillsLast FilledStart DateEnd DateStatus cholecalciferol, vitamin D3, 10 mcg (400 unit) capsule 1 (one) time each day at the same time.Active multivitamin,sr-iqsp-Bi-FA-min 27-0.4 mg tablet 1 (one) time each day at the same time.Active ELIQUIS 5 mg tablet 05/28/2022ctive aspirin 81 mg daily.Active atorvastatin (LIPITOR) 80 mg tablet 08/03/2022ctive bumetanide (BUMEX) 1 mg tablet as needed.Active calcium carbonate-vitamin D3 600 mg(1,500mg) -200 units per tablet 1 (one) time each day at the same time.Active LORazepam (ATIVAN) 0.5 mg tablet lorazepam 0.5 mg mxjjik3608/21/2021ctive lovastatin (MEVACOR) 40 mg tablet lovastatin 40 [...] DAYS.12/16/2022ctive Active Problems No known active problems Family History Medical HistoryRelationNameCommentsCataractsMotherRelationNameStatusComments Mother Social History Tobacco UseTypesPacks/DayYears UsedDateSmoking Tobacco: NeverSmokeless Tobacco: Never Tobacco Cessation:Counseling Given: Not Answered CommentsUnknownSex and Gender InformationValueDate RecordedSex Assigned at BirthNot on fileLegal VdeQrsjkh93/15/2023 10:11 AM EDTGender IdentityNot on fileSexual OrientationNot on file Last Filed Vital Signs Vital SignReadingTime TakenCommentsBlood Nlvfkwla826/7410 9:33 AM EDT Tngzb521212/03/2022 9:33 AM EDTTemperature--Respiratory Oizr593509/11/2022 2:11 PM EDTOxygen Erylsfpnhk81%09/11/2022 2:11 PM EDTInhaled Oxygen Concentration-- Rsuiys85.7 kg (178 lb)12/03/2022 9:33 AM TNEPxhfmq332.2 cm (5' 7 )12/03/2022 9:33 AM EDTBody Mass Index27.8812/03/2022 9:33 AM EDT Plan of Treatment Health MaintenanceDue DateLast DoneCommentsDepression Efwalbkah58/01/1953 DTaP,Tdap and Td Vaccines (1 - Tdap)1961Fall Risk Vzgjrmmqc72/01/2008 Tobacco Gylxczovm36/12/3135054COVID-19 Vaccine (2024- season) /, 12/10/2021, 02/03/2021, Additional history existsInfluenza Gnskkjd34/01/624231/12/2022, 12/10/2021, 01/17/2021, Additional history exists RSV ( or age 60+ yrs)Fezbedymq33/25/2023Zoster (Shingles) Vaccine Kmcrteiqu25/16/2023, 04/16/2022 Medical Devices ImplantedTypeAreaManufacturerDevice IdentifierShelf Expiration DateModel / Serial / LotIcdICDBoston [id number] / [id number] / Insurance Care Teams Team MemberRelationshipSpecialtyStart DateEnd Date Ole Yang MD [address] [facility] [address] [place] [address] PCP - GeneralInternal Medicine08/13/22
--- OUTSIDE RECORDS SUMMARY | 2025-02-08 08:56 | XMS_ITS | Encounter Summary ---
Author Organization [facility] Address [address] [place] [address] Care Team Providers Care Novelty Candy Maker Name Role Phone Ole Yang MD Unavailable [phone] Ole Yang MD Primary Care Provider [phone] Edna Alcantara LPN Unavailable Reason for Referral * Consultation (Routine) - AuthorizedSpecialtyDiagnoses / ProceduresReferred By ContactReferred To ContactOccupational Therapy Diagnoses Chronic combined systolic (congestive) and diastolic (congestive) heart failure (HCC) Frequent falls Procedures CO OFFICE/OUTPATIENT NEW HIGH MDM 60 MINUTES Ole Yang MD [address] [place] [address] Phone: tel: fax: Vonda Segura, ALLISON Referral IDStatusReasonStart DateExpiration DateVisits RequestedVisits [id number] Specialty Services Required Encounter Details DateTypeDepartmentCare Team (Latest Contact Info)Nyugykfnyrk91/22/2025Telephone [facility] [address] [place] [address] Ole Yang MD [address] [facility] [address] [place] [address] Social History Tobacco UseTypesPacks/DayYears UsedDateSmoking Tobacco: NeverSmokeless Tobacco: NeverAlcohol UseStandard Drinks/WeekCommentsNever0 (1 standard drink = 0.6 oz pure alcohol)B1300 Health LiteracyAnswerDate RecordedHow often do you need to have someone help you when you read instructions, pamphlets, or other written material from your doctor or pharmacy?Tawqtkhuz65/16/2025Humiliation, Afraid, Rape, and Kick questionnaireAnswerDate RecordedWithin the [...] relatives?Twice a week06/01/2024How often do you attend taoism or jew services?Never06/01/2024Do you belong to any clubs or organizations such as taoism groups, unions, fraternal or athletic groups, or school groups?No06/01/2024How often do you attend meetings of the clubs or organizations you belong to?Never06/01/2024re you , , , , never , or living with a partner?Amxrsva6706/01/2024 AUDIT-CAnswerDate RecordedQ1: How often do you have [...] very hard 06/01/2024PHQ-2AnswerDate RecordedPatient Health Questionnaire-2 Score0 11/08/2024[facility] - Occupational Stress QuestionnaireAnswerDate [...] Recorded Sex Assigned at BirthNot on fileLegal MkvWuufkv19/15/2023 7:05 PM EDTGender IdentityNot on fileSexual OrientationNot on filedocumented as of this encounter Miscellaneous Notes * Addendum Note - Edna Alcantara LPN - 02/08/2025 8:27 AM ESTAddended by: EDNA ALCANTARA on: 02/08/2025 08:27 AM Modules accepted: Orders * Telephone Encounter - Myranda Mayers - 02/06/2025 8:38 AM EST Patients daughter called stating that dr lemus wants us to refer her to the [facility] in [place]. She believes he did send records over regarding this but she watned to make sure that was being delt with. documented in this encounter Plan of Treatment DateTypeDepartmentCare Team (Latest Contact Info)Nohpvimqpuu52/29/2026 10:40 AM ESTProcedure Visit [facility] [address] [place] [phone] Kenneth Clitfon, DAREN [address] [facility] [address] [place] [address] 03/22/2025 10:00 AM ESTOffice Visit [facility] [address] [facility] [address] [place] [phone] Ole Yang MD [address] [facility] [address] [place] [address] 05/31/2025 10:30 AM EDTOffice Visit [facility] [address] [place] [phone] Teri Jo MD [address] [place] [address] NameTypePriorityAssociated DiagnosesOrder ScheduleAmbulatory referral to Occupational TherapyOutpatient ReferralRoutine Chronic combined systolic (congestive) and diastolic (congestive) heart failure (HCC) Frequent falls Expected: 02/08/2025 (Approximate), Expires: 08/09/2025documented as of this encounter Visit Diagnoses Diagnosis Chronic combined systolic (congestive) and diastolic (congestive) heart failure (HCC) Frequent falls documented in this encounter Additional Health Concerns AssessmentNoted TimePHQ-9 Depression Total Score: 13006/02/2024 9:00 AM EDT documented as of this encounter Care Teams Team MemberRelationshipSpecialtyStart DateEnd Date Ole Yang MD [address] [facility] [address] [place] [address] PCP - ACO Reach07/10/22 Ole Yang MD [address] [facility] [address] [place] [address] PCP - GeneralInternal Medicine07/28/22 Edna Alcantara LPN [address] [facility] [address] [place] [address] 05/06/24documented as of this encounter
--- OUTSIDE RECORDS SUMMARY | 2025-02-08 08:56 | XMS_ITS | Clinical Summary ---
Author Organization [facility] Address [address] [place] [address] Care Team Providers Care Tooth Grinder Name Role Phone Ole Yang MD Unavailable [phone] Ole Yang MD Primary Care Provider [phone] Edna Alcantara LPN Unavailable Allergies Active AllergyReactionsCriticalityNoted DateCommentsLorazepamHallucinationsHigh 11/08/20246229CkehsptyjxsrvoPylffRbkdps56/23/2025 Hyperkalemia Medications MedicationSigDispense QuantityRefillsLast FilledStart DateEnd DateStatus [...] atorvastatin (Lipitor) 80 MG tablet Indications:Atherosclerosis of skokomish coronary artery of skokomish heart without angina pectorisTake 1 tablet (80 [...] (5 mg) by mouth Daily 90 tablet 504/6Active Additional Information Patient taking differently:5 mg Oral Daily,Take Thursday,Thursday,,thursday , Reported on 12/14/2024 amLODIPine (Norvasc) 5 MG tablet Take 5 mg by mouth Daily5Active Active Problems ProblemNoted DateDiagnosed MpfaNldzvznp56/23/2025Essential hypertension 08/11/2024Pure gminkcpfvzztaukdywva26/26/2025Trouble in kfahbjln09/22/2025 Supplemental oxygen tlbjnypxt18/09/2025hronic kidney disease, stage 3b 02/25/20246170Awythde14/10/2024yspnea on rnmcctet53/21/2024Cardiomyopathy, ewpflvsjird88/21/2024urrent use of terminal superintendent piixlktskztfzwl26/27/2023ge- related osteoporosis without current pathological yddugsnr34/12/2023nxiety 07/28/2022rthritis of right shoulder lijthe7107/28/2022hronic atrial fibrillation, obhrulfcdci72/12/2023hronic combined systolic (congestive) and diastolic (congestive) heart jvdkssm6907/28/2022hronic obstructive pulmonary disease, fheiqwsfsuu34/12/2023hronic systolic dysfunction of left ventricle 07/28/20220043Tbidwuqd53/12/2023Elevated liver wbvdssi4507/28/2022Frequent falls 07/28/20224714Pjfkgnhiwufnhio80/12/2023ICD (implantable cardioverter-defibrillator) in place07/28/2022Impaired fasting qmwsrhn1407/28/2022Joint derangement of shoulder cqbfmz5307/28/2022Mild episode of recurrent major depressive disorder 07/28/2022Non-rheumatic mitral wyxgriikramzd70/12/2023Overweight (BMI 25.0-29.9) 07/28/2022rimary fjvilpqrqimnlh01/12/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 tdcpbiq3707/28/2022 Rotator cuff syndrome of right grovdcgo33/12/2023Status post biventricular cardiac pacemaker ejfflqtuv59/13/2021anlobular outxcxvyh79/01/2021 Overview (08/26/2023): Last Assessment & Plan: If cardiac studies are without any acute concerns she may need to F/U with pulmonary for evaluationof CLAIRE History of stroke without residual deswscew17/08/2021Mild intermittent asthma 09/12/2016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 biymcxqa58/08/2016Benign hypertensive heart disease with heart ohiddhq8309/24/2015 Resolved Problems ProblemNoted DateDiagnosed DateResolved DateSuicidal ucvnwbmh38/23/2025 11/08/2024Homicidal gdelqtbsv89KI (acute kidney injury) 5Acute uukrabjwxxwo135Acute dehydration bnormal results of pulmonary function eeibjjl9507/28/2022 07/30/2022oronary arteriosclerosis in skok[place] uhqpdc45/ardiac pacemaker in situ/Tear of right rotator cuff09/12/2016 06/02/2024therosclerosis of coronary artery without angina blczabll41/20/2017 02/25/2024Systolic heart gpmeqwb58Inguinal pain10/04/2015 05/27/2023erebrovascular xyenmgvm66Hematoma of groin Encounters DateTypeDepartmentCare McqcOeskedflocr59/22/2025Patient Outreach [facility] [address] [place] [address] Edna AlcantaraJUAN 02/06/2025Telephone [facility] [address] [place] [address] [place] [phone] Ole Yang MD 01/11/2025linisync Result Encounter [facility] External Department Unsolicited Provider, Generic External Data 12/29/2024 10:00 AM ESTProcedure Visit [facility] [address] [place] [phone] Kenneth Clifton, DPJaguar Pain due to onychomycosis of toenails of both feet (Primary Dx); Venous ymdkwzdqfpuil41/13/2025linisync Result Encounter [facility] External Department Unsolicited Provider, Generic External Data 12/29/2024amboo flowsheet [facility] [address] [place] [address] Kenneth Clifton DPM 12/29/20242146Fdnwhx56/12/5389Gobuhs11/05/2025Telephone [facility] [address] [place] [address] Abbi Wayne, GLENNY 12/16/2024linisync Result Encounter [facility] External Department Unsolicited Provider, Generic External Data 12/14/2024 9:00 AM EDTOffice Visit [facility] [address] [place] [place] [phone] Ole Yang MD Type 2 diabetes mellitus with other specified complication, without long-term current use of insulin (HCC) (Primary Dx); Chronic combined systolic (congestive) and diastolic (congestive) heart failure (HCC); 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 pectoris; Hyperthyroidism; Pure hypercholesterolemia; Chronic kidney disease, stage 3b (CMS-HCC)12/14/2024amboo flowsheet [facility] [address] [place] [address] Ole Yang MD 12/14/20249074Wbvbtc93/28/2025bstract [facility] [address] [place] [address] Ole Yang MD 12/12/2024bstract [facility] [address] [place] [address] Ole Yang MD 12/12/2024bstract [facility] [address] [place] [address] Ole Yang MD 12/08/2024bstract [facility] [address] [place] [address] Ole Yang MD 12/07/2024Telephone [facility] [address] [place] [address] Ole Yang MD 12/07/2024bstract [facility] [address] [place] [address] Ole Yang MD 11/30/2024 10:00 AM EDTOffice Visit [facility] [place] [facility] [address] [place] [phone] Teri Jo MD Hyperthyroidism (Primary Dx); Multinodular goiter; Longstanding persistent atrial fibrillation (HCC)11/30/2024Patient Outreach [facility] [address] 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 [address] Edna Alcantara LPN 11/22/2024bstract [facility] [address] [place] [address] Ole Yang MD 11/22/2024Orders Only [facility] [place] [facility] [address] [place] [phone] Teri Jo MD 11/21/2024Results Follow-Up [facility] [address] [place] [place] [address] Dipti Wolf PA Basic metabolic panel11/19/2024Telephone [facility] [address] [place] [address] Ole Yang MD 11/17/2024bstract [facility] [address] [place] [address] Ole Yang MD 11/17/2024bstract [facility] [address] [place] [address] Ole Yang MD 11/16/2024Patient Outreach [facility] [address] [place] [place] [address] Edna Alcantara LPN 11/16/2024bstract [facility] [address] [facility] [address] [place] [address] Ole Yang MD 11/10/2024bstract [facility] [address] [facility] [address] [place] [address] Ole Yang MD 11/10/2024Patient Outreach [facility] [address] [place] [place] [address] Edna Alcantara LPN 11/10/2024Patient Outreach [facility] [address] [place] [place] [address] Edna Alcantara LPN 11/09/2024bstract [facility] [address] [facility] [address] [place] [address] Ole Yang MD 11/09/2024bstract [place] [address] [facility] [address] [place] [address] Ole Yang MD from Last 3 Months Immunizations ImmunizationAdministration DatesNext DueABRYSVO - Respiratory syncytial virus (RSV), vaccine, bivalent, protein subunit RSV prefusion F, diluent reconstituted, 0.5 mL, PF12/10/2022Influenza, High Dose Seasonal, Preservative Free12/10/2021,01/17/2021Influenza, High-dose Seasonal, Quadrivalent, Preservative Free11/26/2023,12/02/2017,12/11/2016Influenza, Seasonal, Quadrivalent, Obgdzmosgz79/11/2023Influenza, trivalent, qtxqiqolzy27/24/2020, 11/25/2018Moderna SARS-CoV-2 50mcg/0.5mL Nceuciv8212/10/2021neumococcal Conjugate PCV 13006/25/2018Pneumococcal Polysaccharide TCQP1696,08/17/2007 SARS-COV-2 (COVID-19) vaccine, mRNA, spike protein, LNP, PF, robert-sucrose, 30 mcg/0.3 mL12/10/2023,01/01/2023Zoster, Syihlurlbkp46/16/2023,04/16/2022 Family History Medical HistoryRelationNameCommentsCancerFatherHypertensionFatherCancerMother HypertensionMotherMental illnessMotherRelationNameStatusCommentsBrother1 alive, 1 decFatherDeceasedMotherDeceasedSisterx 3AliveSonx 1Alive Social History Tobacco UseTypesPacks/DayYears UsedDateSmoking Tobacco: NeverSmokeless Tobacco: Never Tobacco Cessation:Counseling Given: Yes Alcohol UseStandard Drinks/WeekCommentsNever0 (1 standard drink = 0.6 oz pure alcohol)B1300 Health LiteracyAnswerDate RecordedHow often do you need to have someone help you when you read instructions, pamphlets, or other written material from your doctor or pharmacy?Xmkulsyst35/16/2025Humiliation, Afraid, Rape, and Kick questionnaireAnswerDate RecordedWithin the [...] week06/01/2024How often do you attend muslim or hinduism services?Never06/01/2024Do you belong to any clubs or organizations such as muslim groups, unions, fraternal or athletic groups, or school groups?No06/01/2024How often do you attend meetings of the clubs or organizations you belong to?Never06/01/2024re you , , , , never , or living with a partner?Jvypacc4006/01/2024 AUDIT-CAnswerDate RecordedQ1: How often do you have [...] RecordedPatient Health Questionnaire-2 Score0 11/08/2024[facility] - Occupational Stress QuestionnaireAnswerDate [...] Recorded Sex Assigned at BirthNot on fileLegal XkjWmjqol32/15/2023 7:05 PM EDTGender IdentityNot on fileSexual OrientationNot on file Last Filed Vital Signs Vital SignReadingTime TakenCommentsBlood Akoiiaec241/7612/14/2024 8:58 AM EDT Scxnt028012/14/2024 8:58 AM OBSYyqsyjahlso89.2 ??C (100.8 ??F)11/28/2024 2:25 PM EDTRespiratory Csvr158102/29/2024 9:38 AM ESTOxygen Ekgmaqznec07%12/14/2024 8:58 AM EDTInhaled Oxygen Concentration--Vhsblb30.7 kg (178 lb)12/29/2024 9:38 AM EST Vqvori072.2 cm (5' 7 )12/29/2024 9:38 AM ESTBody Mass Index27.8812/29/2024 9:38 AM EST Plan of Treatment DateTypeDepartmentCare Team (Latest Contact Info)Qlqnrhgylyn05/29/2026 10:40 AM ESTProcedure Visit [facility] [address] [facility] [address] [place] [address] Kenneth Clifton DPJaguar [address] [facility] [address] [place] [address] 03/22/2025 10:00 AM ESTOffice Visit [facility] [address] [facility] [address] [place] [phone] Ole Yang MD [address] [facility] [address] [place], [place] [address] 05/31/2025 10:30 AM EDTOffice Visit [facility] [place] [facility] [address] [place] [address] Teri [place] MD [address] [place] [address] Health MaintenanceDue DateLast DoneCommentsDiabetes: Retinopathy Screening 3Diabetes: Urine Protein Skhndrxsl28/01/1962Diabetes: Hemoglobin A1C 61, 06/06/2024Pneumococcal Vaccine: 65+ YearsCompleted 02/23/2019, 06/25/2018, 08/17/2007Influenza HlftumoFrtfzdlae49/23/2025, 11/26/2023, 11/26/2022, Additional history exists Procedures Procedure NamePriorityDate/TimeAssociated DiagnosisCommentsALL BASIC METABOLIC MBXXGDddpeeu11/26/2025 8:18 AM EST ALL PRO GDEUcaevsg73/13/2025 10:29 AM EST CCF CMP (CMP) (FOR REMOTE [facility] USE)Fdmqvup8312/29/2024 10:29 AM EST CA ECHO DOPPLER TPCPEHWD36/31/2025 6:19 PM EDT POCT GLYCATED HEMOGLOBIN, UFRVVFaigwdh00/29/2025 10:19 AM EDT Type 2 diabetes mellitus with other specified complication, without long-term current use of insulin (HCC) YVOMoazpgi92/07/2025 8:24 AM EDTT4, XYFTYxvpxor86/07/2025 8:24 AM EDTT3, FREE Avshhmq9411/22/2024 8:24 AM EDTBASIC METABOLIC PSJBWUhtvypg72/06/2025 8:03 AM EDT Hyperkalemia Chronic kidney disease, stage 3b (CMS-HCC) from Last 3 Months Results * (ABNORMAL) ALL BASIC METABOLIC PANEL (01/11/2025 8:18 AM EST)ComponentValueRef RangeTest MethodAnalysis TimePerformed AtPathologist CghjngbhvEDSOJQ101257 - 145 mmol/LTBHPOTASSIUM4.33.5 - 5.1 mmol/AQBUUABHBPFO84791 - 107 mmol/LTBH CARBON XPHFPUB11.7(H)21.0 - 32.0 mmol/LTBHANION GAP12.9BANXYFDMUO957(H)74 - 106 mg/dLTBHBLOOD UREA HXAHZAYJ04.0(H)7.0 - 18.0 mg/dLTBHCREATININE1.10(H)0.55 - 1.02 mg/dLTBHTBH EGFR-AF MGDGCPFQ42(L)>=60 mL/min/1.73m 2TBHTBH EGFR-NON AF FTWYQVSO06(L)>=60 mL/min/1.73m 2TBHBUN CREATININE RATIO20.5WCNOVIOFPD54.3(H) 8.5 - 10.1 mg/dLTBHSpecimen (Source)Anatomical Location / LateralityCollection Method / VolumeCollection TimeReceived Time01/11/2025 8:18 AM EST01/11/2025 8:39 AM EST Narrative CLINISYNC - 01/11/2025 10:52 AM EST Authorizing ProviderResult TypeResult StatusGeneric External Data Provider CLINISYNCFinal ResultPerforming OrganizationAddressCity/State/ZIP CodePhone Number CLINISYNC TBH * (ABNORMAL) CCF CMP (CMP) (FOR REMOTE [facility] USE) (12/29/2024 10:29 AM EST) ComponentValueRef RangeTest MethodAnalysis TimePerformed AtPathologist MrhpzugdjHWJALV030861 - 145 mmol/LTBHPOTASSIUM4.53.5 - 5.1 mmol/LTBHCHLORIDE 27737 - 107 mmol/LTBHCARBON OAPQUUK78.8(H)21.0 - 32.0 mmol/LTBHANION GAP10.7 UOGCLAHZGB908(H)74 - 106 mg/dLTBHBLOOD UREA PUZIGFWE86.0(H)7.0 - 18.0 mg/dLTBH CREATININE1.11(H)0.55 - 1.02 mg/dLTBHTBH EGFR-AF DACNBZMI08(L)>=60 mL/min/1.73m 2TBHTBH EGFR-NON AF GULNVNQG75(L)>=60 mL/min/1.73m 2TBHBUN CREATININE RATIO18.3DONYRWTVRT01.08.5 - 10.1 mg/dLTBHBILIRUBIN TOTAL0.70.2 - 1.0 mg/dLTBHASPARTATE AMINO LNLKJADFPEZ4598 - 37 U/LTBHALANINE MERRVMZRXQLJXXOY4253 - 59 U/LTBHALKALINE QZNCGIFLSOL99368 - 116 U/LTBHTOTAL PROTEIN7.16.4 - 8.2 g/dLTBHALBUMIN LEVEL2.9(L)3.4 - 5.0 g/dLTBHGLOBULIN4.2g/dL TBHALBUMIN GLOBULIN RATIO0.7TBHSpecimen (Source)Anatomical Location / LateralityCollection Method / VolumeCollection TimeReceived Time12/29/2024 10:29 AM EST12/29/2024 10:33 AM EST Narrative CLINISYMA - 12/29/2024 11:39 AM EST Authorizing ProviderResult TypeResult StatusGeneric External Data Provider CLINISYNCFinal ResultPerforming OrganizationAddressCity/State/ZIP CodePhone Number ADARSH [facility] * (ABNORMAL) ALL PRO BNP (12/29/2024 10:29 AM EST)ComponentValueRef RangeTest MethodAnalysis TimePerformed AtPathologist SignatureNT PRO B TYPE NATRIURETIC PEPT3,884.0(HH)<=1,800.0 pg/mLTBHComment:RESULTS CALLED TO MILLA ALLISON at 1138Specimen (Source)Anatomical Location / LateralityCollection Method / VolumeCollection TimeReceived Time12/29/2024 10:29 AM EST12/29/2024 10:33 AM EST Narrative CLINISYMA - 12/29/2024 11:39 AM EST Authorizing ProviderResult TypeResult StatusGeneric External Data Provider CLINISYNCFinal ResultPerforming OrganizationAddressCity/State/ZIP CodePhone Number ADARSH TB * CA ECHO DOPPLER COMPLETE (12/16/2024 6:19 PM EDT)Anatomical RegionLaterality ModalityOtherSpecimen (Source)Anatomical Location / LateralityCollection Method / VolumeCollection TimeReceived Time12/16/2024 6:19 PM EDT Narrative 12/16/2024 6:20 PM EDT The [facility] ?[address] ? [place] [address] ? Cardiology Report ? Signed ? Patient: CASTLE,LLUVIA L ? MR#: [id number] ?? : 1940 ?Acct:[id number] ?? Age/Sex: 84 / F ?ADM Date: 12/16/25 ?? Loc: CARD ? Attending Dr: Euloigo Amaya DIXONAC OPERATOR ? Ordering Physician: Eulogio Amaya NP ?? Date of Service: 12/16/24 ?? Procedure(s): CA echo doppler complete ?? Accession Number(s): [id number] ? cc: OLE YANG ; Eulogio Amaya NP ? Patient Name: ? LLUVIA MORENO ? MR#: [id number] ? : 1940 ? Exam Date: 12/16/2024 [...] 1820 ? DD/ 1819 ? TD/TT: ? Entry Level Java Developer: Procedure Note Radiology, Radiologist, MD - 12/16/[address] [address] Cardiology Report Signed Patient: LLUVIA MORENO LMR#: [id number] : 1940cct:[id number] Age/Sex: 84 / FADM Date: 12/16/24 Loc: CARD Attending Dr: Eulogio Amaya NP Ordering Physician: Eulogio Amaya NP Date of Service: 12/16/24 Procedure(s): CA echo doppler complete Accession Number(s): [id number] cc: OLE YANG ; Eulogio Amaya NP Patient Name: LLUVIA MORENO MR#: [id number] : 1940 Exam Date: 12/16/2024 Ordering Doctor: [...] RUDDY GIBSON Signed By:12/16/241819 DD/ 18 TD/TT: Entry Level Java Developer: Authorizing ProviderResult TypeResult StatusGeneric External Data Provider CLINISYNC IMAGINGFinal Result * POCT Glycated hemoglobin, total (12/14/2024 10:19 AM EDT)ComponentValueRef RangeTest MethodAnalysis TimePerformed AtPathologist SignatureHemoglobin A1C 5.8Specimen (Source)Anatomical Location / LateralityCollection Method / Volume Collection TimeReceived JhgiBmdbd74/29/2025 10:19 AM EDT Narrative Authorizing ProviderResult TypeResult StatusOle Yang [facility]EROINT [facility] CARE TEST ENTER/EDIT ORDERABLESFinal Result * T3, free (11/22/2024 8:24 AM EDT)Specimen (Source)Anatomical Location / LateralityCollection Method / VolumeCollection TimeReceived TimeBloodVenous blood specimen / Unknown Narrative Authorizing ProviderResult TypeResult StatusCentral [facility] Medical Centerden Sandro Angry CitizenLAB BLOOD ORDERABLESFinal Result * TSH (11/22/2024 8:24 AM EDT)Specimen (Source)Anatomical Location / Laterality Collection Method / VolumeCollection TimeReceived TimeBloodVenous blood specimen / Unknown Narrative Authorizing ProviderResult TypeResult StatusCentral Valley Medical Centerden Sandro Angry CitizenLAB BLOOD ORDERABLESFinal Result * T4, free (11/22/2024 8:24 AM EDT)Specimen (Source)Anatomical Location / LateralityCollection Method / VolumeCollection TimeReceived TimeBloodVenous blood specimen / Unknown Narrative Authorizing ProviderResult TypeResult StatusCentral Valley Medical Centerd Sandro Angry CitizenLAB BLOOD ORDERABLESFinal Result * (ABNORMAL) Basic metabolic panel (11/21/2024 8:03 AM EDT)ComponentValueRef RangeTest MethodAnalysis TimePerformed AtPathologist DgaeylxlrRbokbjd109(H)65 - 99 mg/dLQUESTComment: ? Fasting reference interval For someone without known diabetes, a glucose value >125 mg/dL indicates that they may have diabetes and this should be confirmed with a follow-up test. FZH764 - 25 mg/dLQUESTCreatinine1.02(H)0.60 - 0.95 mg/vGNHVWKROED66(L)> OR = 60 mL/min/1.03u8ZXWCVJCV/CREATININE JOKXF418 - 22 (calc)IDESXVqajnp876862 - 146 mmol/LQUESTPotassium, Bld4.53.5 - 5.3 mmol/QPUKTMLomaeohx23836 - 110 mmol/LQUEST Carbon Tmehdfh33(H)20 - 32 mmol/LQUESTCalcium9.48.6 - 10.4 mg/dLQUESTSpecimen (Source)Anatomical Location / LateralityCollection Method / VolumeCollection TimeReceived TimeBloodVenous blood specimen / Plssnuw6211/21/2024 8:03 AM EDT 11/21/2024 2:45 PM EDT Narrative Resulting Agency Comment Performing Organization Information ?Site ID: QTW ?Name: [facility] ?Address: [address] [place] [id number] ?Director: Priyanka Nazario Authorizing ProviderResult TypeResult StatusDipti Montesinos Hemtyler PALAB BLOOD ORDERABLESFinal ResultPerforming OrganizationAddressCity/State/ZIP CodePhone Number [facility] from Last [place] [address] Advance Directives TypeDate RecordedPatient RepresentativeExplanationPower of Attorney02/25/2024 12:18 PMHealthcare Power of [employer] Care Teams Team MemberRelationshipSpecialtyStart DateEnd Date Ole Yang MD [address] [facility] [address] [place] [address] PCP - ACO Reach07/10/22 Ole Yang MD [address] [facility] [address] [place] [address] PCP - GeneralInternal Medicine07/28/22 Edna Alcantara LPN [address] [facility] [address] [place] [address] 05/06/24
== END 2025-02-08 08:51 | disposition home or self-care (01) ==
LOC: US 08:53
PROVIDERS: PCP Internal Medicine; Visit Provider Internal Medicine
DX: I12.9 Hypertensive chronic kidney disease with stage 1 through stage 4 chronic kidney disease, or unspecified chronic kidney disease (principal); N18.30 Chronic kidney disease, stage 3 unspecified; E78.5 Hyperlipidemia, unspecified; N25.81 Secondary hyperparathyroidism of renal origin; D64.9 Anemia, unspecified
CPT/HCPCS: 76775